=== PATIENT | female | born 1940 | race Caucasian/White ===

== ENCOUNTER → 2019-11-22 11:00 | Outpatient (BNVA) | payer MEDICARE, SELFPAY | PROVIDERS: PCP Family Medicine; Visit Provider Hospitalist | DX: J44.9 Chronic obstructive pulmonary disease, unspecified (principal); J30.9 Allergic rhinitis, unspecified; E87.1 Hypo-osmolality and hyponatremia; Z79.899 Other long term (current) drug therapy | CPT/HCPCS: 99214 ==

== ENCOUNTER 2020-01-27 12:24 | Outpatient (REF) | payer MEDICARE, SELFPAY ==
[2020-01-27 14:17] LABS: Anion Gap 13 (12-20); Blood Urea Nitrogen 11 mg/dL (9-16); Calcium 9.1 mg/dL (8.4-10.2); Carbon Dioxide 27 mmol/L (22-29); Chloride 97 mmol/L (96-108); Estimated Glomerular Filt Rate > 60; Glucose Random 105 mg/dL (60-115); Potassium 4.5 mmol/l (3.3-5.1); Sodium 132 mmol/L (135-145)
[2020-01-27 14:19] LABS: Creatinine Urine 97.47 mg/dL; Microalbumin Urine < 5.0 mg/L
== END 2020-01-27 12:25 | disposition home or self-care (01) ==
LOC: HO.WFDLDS 12:24
PROVIDERS: Visit Provider Family Medicine
DX: E87.1 Hypo-osmolality and hyponatremia (principal); I10 Essential (primary) hypertension
CPT/HCPCS: 80048; 82043

== ENCOUNTER 2020-04-25 11:11 | Outpatient (REF) | payer MEDICARE, SELFPAY ==
[2020-04-25 14:09] LABS: Anion Gap 13 (12-20); Blood Urea Nitrogen 11 mg/dL (9-16); Carbon Dioxide 28 mmol/L (22-29); Chloride 98 mmol/L (96-108); Estimated Glomerular Filt Rate > 60; Glucose Random 103 mg/dL (60-115); Potassium 4.8 mmol/L (3.3-5.1); Sodium 134 mmol/L (135-145)
== END 2020-04-25 11:12 | disposition home or self-care (01) ==
LOC: HO.WFDLDS 11:11
PROVIDERS: Visit Provider Family Medicine
DX: Z00.00 Encounter for general adult medical examination without abnormal findings (principal); E87.1 Hypo-osmolality and hyponatremia
CPT/HCPCS: 36415; 80048

== ENCOUNTER → 2020-05-25 09:54 | Outpatient (BNVA) | payer MEDICARE, SELFPAY | PROVIDERS: PCP Family Medicine; Visit Provider Hospitalist | DX: J44.9 Chronic obstructive pulmonary disease, unspecified (principal); J30.9 Allergic rhinitis, unspecified; Z79.899 Other long term (current) drug therapy; Z87.891 Personal history of nicotine dependence | CPT/HCPCS: 99212 ==

== ENCOUNTER 2020-10-02 09:07 | Outpatient (REF) | payer MEDICARE, SELFPAY ==
[2020-10-02 11:03] LABS: Alanine Aminotransferase 22 U/L (0-31); Albumin Level 4.1 g/dL (3.5-5.0); Alkaline Phosphatase 78 U/L (39-117); Anion Gap 15 (12-20); Aspartate Amino Transferase 21 U/L (5-31); Bilirubin Total 0.7 mg/dL (0.0-1.0); Blood Urea Nitrogen 6 mg/dL (9-16); Calcium 9.3 mg/dL (8.4-10.2); Carbon Dioxide 24 mmol/L (22-29); Chloride 95 mmol/L (96-108); Cholesterol 196 mg/dL; Estimated Glomerular Filt Rate > 60; Glucose Fasting 110 mg/dL (60-99); HDL Cholesterol 65 mg/dL; LDL Cholesterol Calculated 109 mg/dl; Potassium 4.4 mmol/L (3.3-5.1); Sodium 130 mmol/L (135-145); Triglycerides 111 mg/dL
[2020-10-02 11:23] LABS: TSH reflex Free T4 0.44 uIU/mL (0.32-4.0)
== END 2020-10-02 09:08 | disposition home or self-care (01) ==
LOC: HO.WFDLDS 09:07
PROVIDERS: Visit Provider Family Medicine
DX: Z00.00 Encounter for general adult medical examination without abnormal findings (principal); E87.1 Hypo-osmolality and hyponatremia; I10 Essential (primary) hypertension
CPT/HCPCS: 36415; 80048; 80053; 80061; 84443

== ENCOUNTER → 2021-02-18 10:06 | Outpatient (BNVA) | payer MEDICARE, SELFPAY | PROVIDERS: PCP Family Medicine; Visit Provider Hospitalist | DX: J44.9 Chronic obstructive pulmonary disease, unspecified (principal); J30.9 Allergic rhinitis, unspecified | CPT/HCPCS: 99212 ==

== ENCOUNTER 2021-04-26 11:58 | Outpatient (REF) | payer MEDICARE, SELFPAY ==
--- NOTE | ~2021-04-26 | MM_ITS ---
EXAMINATION: BONE DENSITOMETRY CLINICAL INDICATION: Screening for osteoporosis. COMPARISON: Previous BD dated 04/16/2010 and baseline BD dated 08/19/2007. TECHNIQUE: Using a [employer] DXA System (software version: 13.1) manufactured by [employer], dual-energy x-ray absorptiometry was performed of the lumbar spine and left hip. The images are of good technical quality. Summary results are attached. FINDINGS: AP SPINE L1-L2 (excluding L3 and L4): The data of L1-L4 has been changed to exclude the L3 and L4 vertebral bodies, because degenerative sclerosis at these levels may cause overestimation of lumbar spine density. Current: BMD 1.257 g/cm2, Z-score 2.4, T-score 0.8, normal, 6.2% increase from previous, 1.2% decrease from baseline (<5% change is not significant). Prior: BMD 1.184 g/cm2. Baseline: BMD 1.272 g/cm2. LEFT FEMUR, NECK: Current: BMD 0.972 g/cm2, Z-score 1.5, T-score -0.5, normal. Prior: BMD 1.054 g/cm2. Baseline: BMD 1.124 g/cm2. LEFT FEMUR, TOTAL: Current: BMD 1.024 g/cm2, Z-score 2.0, T-score 0.1, normal, 8.2% decrease from previous, 11.6% decrease from baseline (<5% change is not significant). Prior: BMD 1.116 g/cm2. Baseline: BMD 1.159 g/cm2. IDENTIFIED RISK FACTORS: Menopause. Hysterectomy. Alcohol (3 or more units per day). Tobacco user (current smoker). History of fracture (adult). HISTORY OF FRACTURE: Humerus. MEDICATIONS: Vitamin D. MM/XR DEXA axial skeleton IMPRESSION: 1. DIAGNOSIS: Normal bone density based on the lowest T-score value of -0.5 in the femoral neck applying World Health Organization criteria. 2. 10-YEAR FRACTURE RISK PREDICTION, FRAX: According to the guidelines, FRAX calculation should only be performed on patients in the osteopenia bone density category. Therefore, FRAX was not performed on this patient. 3. Treatment Recommendations: NOF guidelines recommend consideration for treatment in postmenopausal women and men age 50 and older presenting with the following: -A hip or vertebral (clinical or morphometric) fracture. -T-score less than or equal to -2.5 at the femoral neck or spine after appropriate evaluation to exclude secondary causes. -Low bone mass at the hip or spine and a 10-year fracture probability by FRAX of greater than or equal to 3% for hip fracture or greater than or equal to 20% for major osteoporotic fracture based on the [place] adapted WHO algorithm. 4. Other Recommendations: All treatment decisions require clinical judgment and consideration of individual patient factors, including patient preferences, comorbidities, previous drug use, risk factors not captured in the FRAX model (e.g. frailty, falls, vitamin D deficiency, increased bone turnover, interval significant decline in bone density) and possible under or overestimation of fracture risk by FRAX. FUTURE SCAN RECOMMENDATION: People with diagnosed cases of osteoporosis or at high risk for fracture should have regular bone mineral density tests. For patients eligible for Medicare, routine testing is allowed once every 2 years. The testing frequency can be increased to one year for patients who have rapidly progressing disease, those who are receiving or discontinuing medical therapy to restore bone mass, or have additional risk factors.
--- NOTE | ~2021-04-26 | MM_ITS ---
EXAMINATION: MM SCREENING DIGITAL BREAST TOMOSYNTHESIS, BILATERAL CLINICAL INFORMATION: Screening. Asymptomatic. The lifetime risk of breast cancer based on the Tyrer-Cuzick Model is 1.5%. COMPARISON: Mammography: November 28, 2016 and studies dating back to June 13, 2011 TECHNIQUE: Digital breast tomosynthesis is performed in both the craniocaudal and mediolateral oblique views along with computer-aided detection (CAD). Synthesized 2D images are generated from the tomosynthesis. FINDINGS: The breasts are almost entirely fatty (ACR BI-RADS breast composition Category a). There are no significant masses, abnormal calcifications, or other abnormalities. MM/MM tomosynthesis screening BI IMPRESSION: There are no significant changes from prior study. ASSESSMENT: BI-RADS 1: Negative RECOMMENDATION: Routine annual mammography screening. This patient's information was entered into a reminder system with a target due date for their next mammogram.
== END 2021-04-26 11:59 | disposition home or self-care (01) ==
LOC: HO.MAMMO 11:58
PROVIDERS: PCP Family Medicine; Visit Provider Family Medicine
DX: Z13.820 Encounter for screening for osteoporosis (principal); Z78.0 Asymptomatic menopausal state; Z12.31 Encounter for screening mammogram for malignant neoplasm of breast; F17.200 Nicotine dependence, unspecified, uncomplicated; Z90.710 Acquired absence of both cervix and uterus; Z79.899 Other long term (current) drug therapy
CPT/HCPCS: 77063; 77067; 77080

== ENCOUNTER 2021-08-30 11:28 | Outpatient (REF) | payer MEDICARE, SELFPAY ==
--- NOTE | ~2021-08-30 | XR_ITS ---
EXAMINATION: XR CHEST CLINICAL INFORMATION: COPD. COMPARISON: None TECHNIQUE: 2 views of the chest were obtained. FINDINGS: The lungs are well-expanded and clear of acute process. The heart size and pulmonary vascularity is normal. There is a moderate size hiatal hernia. No gross bony abnormality seen. XR/XR chest 2V IMPRESSION: Clear lungs. Moderate-sized hiatal hernia.
== END 2021-08-30 11:29 | disposition home or self-care (01) ==
LOC: HO.XRAY 11:28
PROVIDERS: PCP Family Medicine; Visit Provider Hospitalist
DX: J44.9 Chronic obstructive pulmonary disease, unspecified (principal); J30.9 Allergic rhinitis, unspecified; Z87.891 Personal history of nicotine dependence
CPT/HCPCS: 71046; 99212

== ENCOUNTER 2021-12-27 10:37 | Outpatient (REF) | payer MEDICARE, SELFPAY ==
[2021-12-27 13:49] LABS: MANUAL DIFF FLAG NO
[2021-12-27 13:51] LABS: Basophils Absolute Auto 0.1 X10*3/uL (0.0-0.2); Basophils Percent Auto 0.8 % (0-2); Eosinophils Absolute Auto 0.2 X10*3/uL (0.0-0.4); Eosinophils Percent Auto 3.1 % (0-4); Hemoglobin 15.2 g/dl (12.0-16.0); Imm Gran Abs Auto 0.03 X10*3/uL (0.00-0.03); Imm Gran Pct Auto 0.4 % (0.0-0.4); Lymphocytes Absolute Auto 1.1 X10*3/uL (1.2-4.9); Lymphocytes Percent Auto 15.5 % (20-40); Mean Corpuscular HGB Conc 35.3 g/dl (31.0-35.0); Mean Corpuscular Hemoglobin 34.1 pg (27.0-33.0); Mean Corpuscular Volume 96.4 fL (80.0-98.0); Mean Platelet Volume 9.9 fL (9.4-12.3); Monocytes Absolute Auto 0.7 X10*3/uL (0.1-1.2); Monocytes Percent Auto 9.9 % (2-11); Neutrophils Absolute Auto 5.1 x10*3/uL (2.0-8.3); Neutrophils Percent Auto 70.3 % (45-73); Platelet Count 224 X10*3/uL (160-400); Red Blood Count 4.46 X10*6/uL (4.20-5.50); Red Cell Distribution Width 13.7 % (11.0-16.0); White Blood Count 7.2 X10*3/uL (4.8-10.8)
[2021-12-27 14:22] LABS: Alanine Aminotransferase 20 U/L (0-31); Albumin Level 3.9 g/dL (3.5-5.0); Alkaline Phosphatase 101 U/L (39-117); Anion Gap 15 (12-20); Aspartate Amino Transferase 27 U/L (5-31); Bilirubin Total 0.7 mg/dL (0.0-1.0); Blood Urea Nitrogen 7 mg/dL (9-16); Calcium 9.3 mg/dL (8.4-10.2); Carbon Dioxide 26 mmol/L (22-29); Chloride 97 mmol/L (96-108); Cholesterol 180 mg/dL; Estimated Glomerular Filt Rate > 60; Glucose Fasting 106 mg/dL (60-99); HDL Cholesterol 61 mg/dL; LDL Cholesterol Calculated 92 mg/dl; Potassium 4.8 mmol/L (3.3-5.1); Sodium 133 mmol/L (135-145); Total Protein 6.9 g/dL (6.5-8.0); Triglycerides 138 mg/dL
== END 2021-12-27 10:38 | disposition home or self-care (01) ==
LOC: HO.WFDLDS 10:37
PROVIDERS: Visit Provider Family Medicine
DX: Z00.00 Encounter for general adult medical examination without abnormal findings (principal)
CPT/HCPCS: 36415; 80053; 80061; 84443; 85025

== ENCOUNTER 2022-01-17 13:49 | Outpatient (REF) | payer MEDICARE, SELFPAY ==
[2022-01-17 14:35] LABS: Influenza A PCR NEGATIVE (Negative); Influenza B PCR NEGATIVE (Negative); Resp Syncy Virus RNA Qual PCR POSITIVE (Negative); SARS COV2 PCR INHOUSE NEGATIVE (Negative)
== END 2022-01-17 13:50 | disposition home or self-care (01) ==
LOC: HO.LNP 13:49
PROVIDERS: Visit Provider Family Medicine
DX: Z20.822 Contact with and (suspected) exposure to COVID-19 (principal); B34.9 Viral infection, unspecified
CPT/HCPCS: 0241U

== ENCOUNTER 2022-02-06 11:09 | Outpatient (REF) | payer MEDICARE, SELFPAY ==
[2022-02-06 13:46] LABS: INTERNATIONAL NORM RATIO 2.6 (0.9-1.1)
== END 2022-02-06 11:10 | disposition home or self-care (01) ==
LOC: HO.WFDLDS 11:09
PROVIDERS: Visit Provider Family Medicine
DX: I26.99 Other pulmonary embolism without acute cor pulmonale (principal)
CPT/HCPCS: 36415; 85610

== ENCOUNTER 2022-02-07 15:15 | Outpatient (REF) | payer MEDICARE, SELFPAY ==
--- NOTE | ~2022-02-07 | US_ITS ---
EXAMINATION: US VENOUS ULTRASOUND WITH DOPPLER LOWER EXTREMITY, BILATERAL CLINICAL INFORMATION: Pulmonary embolism COMPARISON: None TECHNIQUE: Ultrasound of the deep veins is performed from the hip to the calf with compression sonography and color and pulse Doppler assessment. Spectral analysis with color-flow imaging is performed. FINDINGS: RIGHT: There is normal venous compression and respiratory variation and augmented flow. The visualized common femoral vein, superficial femoral vein, profunda femoral vein, popliteal vein, and the trifurcation region shows no evidence of deep venous thrombosis. There is no significant popliteal fossa cyst. LEFT: There is normal venous compression and respiratory variation and augmented flow. The visualized common femoral vein, superficial femoral vein, profunda femoral vein, popliteal vein, and the trifurcation region shows no evidence of deep venous thrombosis. There is no significant popliteal fossa cyst. If the patient's symptoms persist, followup ultrasound in 5 days 7 days might be of value to exclude proximal propagation from a non-visualized calf vein. US/US venous duplex LE BI IMPRESSION: No DVT demonstrated in the bilateral lower extremity.
== END 2022-02-07 15:16 | disposition home or self-care (01) ==
LOC: HO.US 15:15
PROVIDERS: Visit Provider Family Medicine
DX: I26.99 Other pulmonary embolism without acute cor pulmonale (principal)
CPT/HCPCS: 93970

== ENCOUNTER 2022-02-11 09:43 | Outpatient (REF) | payer MEDICARE, SELFPAY ==
[2022-02-11 11:40] LABS: INTERNATIONAL NORM RATIO 2.4 (0.9-1.1); Prothrombin Time 28.1 SEC (10.0-13.1)
== END 2022-02-11 09:44 | disposition home or self-care (01) ==
LOC: HO.WFDLDS 09:43
PROVIDERS: Visit Provider Family Medicine
DX: I26.99 Other pulmonary embolism without acute cor pulmonale (principal)
CPT/HCPCS: 36415; 85610

== ENCOUNTER → 2022-02-28 09:59 | Outpatient (BNVA) | payer MEDICARE, SELFPAY | PROVIDERS: PCP Family Medicine; Visit Provider Hospitalist | DX: J44.9 Chronic obstructive pulmonary disease, unspecified (principal); J30.9 Allergic rhinitis, unspecified; I26.99 Other pulmonary embolism without acute cor pulmonale; Z79.01 Long term (current) use of anticoagulants; Z79.899 Other long term (current) drug therapy | CPT/HCPCS: Q3014 ==

== ENCOUNTER → 2022-03-10 12:46 | Outpatient (REF) | payer MEDICARE, SELFPAY ==
--- NOTE | 2022-03-10 12:49 | CA_ITS ---
Transthoracic Echocardiogram Patient (Last, First, Middle): Noris Hou, Gender: Female Date of : 1940 Age: 81 Procedure Date: 03/10/2022 Procedure Type: Transthoracic Echocardiogram Location: OP Height: 154.94 cm Weight: 72.58 kg BSA: 1.72 m2 Heart Rate: 78 bpm BP: 110 / 64 mmHg Director Of Compliance: SB Referring MD: Aquiles Weems MD Symptoms: I26.99 - Other pulmonary embolism without acute cor pulmonale Study Quality: Technically Difficult but adequate ECG Rhythm: Sinus Conclusions: - The left ventricular systolic function is normal. The calculated ejection fraction is 69% by biplane method. - No obvious valvular pathology seen on this study. - There is no evidence of pulmonary hypertension. Findings Left Ventricle Normal left ventricular cavity size. There is mildly increased left ventricular wall thickness. The left ventricular systolic function is normal. The calculated ejection fraction is 69% by biplane method. There is no evidence of regional wall motion abnormalities. Diastolic function is normal for age. LV peak GLS -13.7%. Right Ventricle Normal right ventricular cavity size. There is low normal right ventricular systolic function. Atria Both atria are normal in size. Aortic Valve There is a normal trileaflet aortic valve. There is no aortic valve stenosis. There is no aortic valve regurgitation. Mitral Valve The mitral valve appears normal. There is no mitral valve regurgitation. There is no mitral valve stenosis. Pulmonic Valve The pulmonic valve is likely normal. Tricuspid Valve There is mild tricuspid valve regurgitation. There is no evidence of pulmonary hypertension. Great Vessels The asc aorta is normal in size. Venous The inferior vena cava is normal in size and collapses greater than 50% with inspiration. Pericardium/Pleural Prominent epicardial adipose tissue noted. Possible small pericardial effusion posterior to left ventricle. Prior Study Comparison No significant change compared to prior study dated: 05/19/2008. Recommendations, Care & Conclusions No obvious valvular pathology seen on this study. Measurements 2D Linear Measurements IVSd: 1.18 0.6-0.9/0.6-1.0 cm LVIDd: 4.08 3.9-5.3/4.2-5.9 cm LVIDd Index: 2.37 2.4-3.2/2.2-3.1 cm/m2 LVIDs: 2.34 2.0-3.6 cm LVPWd: 1.08 0.7-1.1 cm LA Diam: 2.30 2.7-3.8/3.0-4.0 cm LAIDs Index: 1.34 1.5-2.3 cm/m2 LV Mass: 194.40 67-162/88-224 g LV Mass Index: 113.02 43-95/49-115 g/m2 LVOT Diam: 2.00 3.0+(-)1.3 cm 2D Systolic Function EF 4C: 72.20 >55% EF 2C: 63.40 >55% EF BiP: 68.60 >55% Mitral Valve MV Pk E: 0.62 MV PK A: 0.80 MV Decel Time: 227.00 E/A: 0.80 E'Lateral: 6.85 E'Medial: 4.68 E/E' Med: 13.20 E/E' Lat: 9.00 PHT: 66.00 MVA PHT: 3.33 Decel Yates: 2.72 Aortic Valve AoV Pk Leighton: 1.15 AoV Pk Grad: 5.00 JIGNESH: 2.96 LVOT LVOT Pk Leighton: 1.04 LVOT Mn Leighton: 0.74 LVOT VTI: 0.22 LVOT Pk Grad: 4.00 LVOT Mn Grad: 3.00 LVOT Diam: 2.00 LVOT Area: 3.14 Diastolic Function MV Pk E: 0.62 MV Pk A: 0.80 E/A: 0.80 E'Medial: 4.68 E/E' Med: 13.20 E' Laterial: 6.85 E/E' Lat: 9.00 Right Ventricle TAPSE (mm): 17.90 TVS' Leighton: 10.80 Tricuspid Valve TR Pk Leighton: 2.39 TR Pk Grad: 23.00 RA Press: 3.00 RVSP: 26.00 Great Vessels Aorta Sinus of Valsalva: 3.00 2.0-3.5 cm Ao Asc: 3.70 2.1-3.4 cm Pulmonary Valve PV Pk Leighton: 0.98 Peak PV Grad: 4.00 Updated in Other Vendor System with Status of Final Vlad Herrera MD electronically signed on 03/10/2022 4:45:57 PM with status of Final
== END ==
LOC: HO.CARD 12:46
PROVIDERS: PCP Family Medicine; Visit Provider Hospitalist
DX: I26.99 Other pulmonary embolism without acute cor pulmonale (principal)
CPT/HCPCS: 93306; 93356

== ENCOUNTER 2022-05-02 11:35 | Outpatient (REF) | payer MEDICARE, SELFPAY ==
--- NOTE | ~2022-05-02 | MM_ITS ---
EXAMINATION: MM SCREENING DIGITAL BREAST TOMOSYNTHESIS, BILATERAL CLINICAL INFORMATION: Screening. Asymptomatic. The lifetime risk of breast cancer based on the Tyrer-Cuzick Model is 2%. COMPARISON: Mammography: 04/26/2021, 11/28/2016, 08/03/2014 TECHNIQUE: Digital breast tomosynthesis is performed in both the craniocaudal and mediolateral oblique views along with computer-aided detection (CAD). Synthesized 2D images are generated from the tomosynthesis. Additional left CC view is provided. FINDINGS: There are scattered areas of fibroglandular density (ACR BI-RADS breast composition Category b). There are no significant masses, abnormal calcifications, or other abnormalities. Parenchymal pattern is similar to prior studies. There is no developing density or architectural abnormality. The axilla and skin contours are unremarkable. No significant changes. MM/MM tomosynthesis screening BI IMPRESSION: No mammographic evidence of malignancy. ASSESSMENT: BI-RADS 1: Negative RECOMMENDATION: Routine annual mammography screening. This patient's information was entered into a reminder system with a target due date for their next mammogram.
== END 2022-05-02 11:36 | disposition home or self-care (01) ==
LOC: HO.MAMMO 11:35
PROVIDERS: PCP Family Medicine; Visit Provider Family Medicine
DX: Z12.31 Encounter for screening mammogram for malignant neoplasm of breast (principal)
CPT/HCPCS: 77063; 77067

== ENCOUNTER → 2022-06-02 10:19 | Outpatient (BNVA) | payer MEDICARE, SELFPAY | PROVIDERS: PCP Family Medicine; Visit Provider Hospitalist | DX: J44.9 Chronic obstructive pulmonary disease, unspecified (principal); I26.99 Other pulmonary embolism without acute cor pulmonale; J30.9 Allergic rhinitis, unspecified | CPT/HCPCS: 99212 ==

== ENCOUNTER 2022-09-15 14:44 | Outpatient (AMB) | payer MEDICARE, SELFPAY ==
[2022-09-15 15:05] VITALS: BP 120/64; PULSE 56; O2SAT 96; BMI 31.9
--- NOTE | 2022-09-15 15:05 | A.OFFPC_ITS ---
Vital Signs 09/15/22 15:05 Height 5 ft 1 in Weight 169 lb BMI 31.9 BP 120/64 Blood Pressure Location Lt brachial Position Sitting Pulse 56 Pulse Source Pulse Oximeter Pulse Oximetry (%) 96 Oxygen Delivery Method Room Air Intake Visit Reasons: Eliquis discussion Intake Note: Patient is here to discuss Eliquis, needs forms filled out. Allergies latex Allergy (Verified 09/15/22 15:10) rash Medication List - Last Reconciled 09/15/22 by Ric Flor MD albuterol sulfate 90 mcg/actuation (ProAir HFA) 90 mcg inhalation DAILY PRN cholecalciferol (vitamin D3) 50 mcg PO DAILY citalopram 20 mg PO DAILY 90 days clonazepam 0.5 mg PO BID PRN diltiazem HCl 120 mg PO DAILY 90 days fluticasone propion-salmeterol 232-14 mcg/actuation (AirDuo Digihaler) 1 inh inhalation BID 30 days gabapentin 300 mg PO BID ipratropium bromide 2 sprays intranasal TID PRN lisinopril 10 mg PO DAILY mupirocin 2% 1 appl topical TID 10 days omeprazole 20 mg PO DAILY Symbicort 160-4.5 mcg/actuation (budesonide-formoterol) 2 puffs PO BID NS tamsulosin 0.4 mg PO BEDTIME 90 days warfarin 2 mg PO DAILY 30 days Tobacco use date assessed: 09/15/22 Dental Screening Dental Screen Date: 09/15/22 Did you have a dental visit in the last 12 months?: No Did you have a dental problem in the last 6 months where you did not have access to dental care?: No Was dental information given to patient?: No HPI Eliquis discussion HPI Details 82 y/o female presents to discuss her eliquis. 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 [facility] Medical History Asthma-COPD overlap syndrome Chronic allergic rhinitis Essential hypertension History of COVID-19 Hyponatremia Pulmonary emboli (~01/2022) Skin cancer Surgical History History of colonoscopy History of esophagogastroduodenoscopy (EGD) Family History Mother Breast cancer Father Prostate CA Stroke Social History Household Members: None Housing: Other (mobile home) Alcohol intake: current Alcohol intake frequency: 0-2 drinks per day Patient Tobacco Use Status: Former Tobacco user Tobacco use type: Cigarette Years Smoked: 10 years e-Cigarette/Vaping Use: Never Used Second Hand Smoke Exposure: No service: No Current occupational status: employed Current occupational exposures/hazards: No Cognitive needs: No Hearing needs: No Vision needs: No Questionnaire Thrive Questionnaire Date Thrive assessed: 08/03/20 ROEL-7 AMB Questionnaire ROEL-7 Date ROEL - 7 assessed: 02/14/22 Source: Developed by Drs. Harsha Hood, Diana Mendoza, Kristopher Villa and colleagues, with an educational johnie from [employer]. Review of Systems Const Denies chills, Denies fatigue, Denies fever(s), Denies headache(s) and Denies weakness ENT Denies dizziness and Denies headache(s) Card Denies dyspnea Resp Denies cough, Denies dyspnea, Denies wheezing and Denies other (shortness of breath) Musc Denies numbness and Denies tingling Neuro Denies dizziness, Denies headache(s), Denies numbness, Denies tingling and Denies weakness Psych Denies anxiety and Denies depression Endo Denies fatigue Aller/Immun Denies wheezing Physical exam (Primary Care) Vital Signs: Last Vital Signs Pulse 56 09/15/22 15:05 BP 120/64 09/15/22 15:05 Pulse Ox 96 09/15/22 15:05 Oxygen Delivery Method Room Air 09/15/22 15:05 BMI result Body Mass Index 31.9 Tobacco/Smoking Status: Tobacco use Status Tobacco use date assessed 09/15/22 09/15/22 15:14 Patient Tobacco Use Status Former Tobacco user 09/15/22 15:07 Tobacco use type Cigarette 09/15/22 15:07 e-Cigarette/Vaping Use Never Used 09/15/22 15:07 Thrive Assessment: Date of Thrive Assessment Date Thrive assessed 08/03/20 09/15/22 15:07 Const General: well developed; No acute distress Nutritional Appearance: well nourished Orientation/consciousness: patient oriented x3 HENMT Head: Yes normocephalic and Yes atraumatic Eyes General: appearance normal, both eyes and all related structures Pupils: Equal, round and reactive pupils present EOM: EOMs intact bilaterally Resp Effort & Inspection: normal respiratory effort Neuro General: patient oriented x3 and gait normal Cranial nerves: Yes Equal, round and reactive pupils present Psych Affect: normal affect Assessment and Plan Assessment & Plan (1) Pulmonary emboli: Onset Date: ~01/2022 Code(s): I26.99 - Other pulmonary embolism without acute cor pulmonale Plan: History of unprovoked PE and patient is on lifelong anticoagulation Has had some difficulties with keeping her INR levels controlled Switching her to Eliquis. She has paperwork to allow her to have this subsidized by the pharmaceutical company and I have signed this today. Coding Level of Care Code Est Pt Level 3 (91754) Diagnoses Pulmonary emboli I26.99
== END 2022-09-15 16:01 | disposition home or self-care (01) ==
PROVIDERS: PCP Family Medicine; Visit Provider Family Medicine
DX: I26.99 Other pulmonary embolism without acute cor pulmonale (principal)
CPT/HCPCS: 99213

== ENCOUNTER 2022-10-16 10:36 | Outpatient (AMB) | payer MEDICARE, SELFPAY ==
[2022-10-16 10:37] VITALS: BP 118/74; PULSE 94; O2SAT 96; BMI 31.8
--- NOTE | 2022-10-16 10:37 | MHC.PC.OV ---
Vital Signs 10/16/22 10:37 Height 5 ft 1 in Weight 168 lb 8 oz BMI 31.8 BP 118/74 Blood Pressure Location Lt brachial Position Sitting Pulse 94 Pulse Source Pulse Oximeter Pulse Oximetry (%) 96 Oxygen Delivery Method Room Air Intake Visit Reasons: Follow-up hypertension and chronic conditions Intake Note: Patient is here for follow up on hypertension and chronic conditions. Allergies latex Allergy (Verified 10/16/22 10:40) rash Tobacco use date assessed: 10/16/22 Fall risk assessment: No Falls in past year Last assessed Fall Risk: 10/16/22 Dental Screening Dental Screen Date: 10/16/22 Did you have a dental visit in the last 12 months?: No Did you have a dental problem in the last 6 months where you did not have access to dental care?: No Was dental information given to patient?: Patient has dentist HPI Follow-up hypertension and chronic conditions HPI Details 82 y/o female presents to f/u hypertension and chronic conditions. Blood pressure today 118/74. She is on lisinopril 10mg daily. She has a lump on her R forearm from a cat bite. She has a wound on basal cell of her scalp from a basal cell resection. [facility] Medical History Pulmonary emboli (~01/2022) Skin cancer History of COVID-19 Essential hypertension Chronic allergic rhinitis Hyponatremia Asthma-COPD overlap syndrome Surgical History History of esophagogastroduodenoscopy (EGD) History of colonoscopy Family History Mother Breast cancer Father Prostate CA Stroke Social History Household Members: None Housing: Other (mobile home) Alcohol intake: current Alcohol intake frequency: 0-2 drinks per day Patient Tobacco Use Status: Former Tobacco user Tobacco use type: Cigarette Years Smoked: 10 years e-Cigarette/Vaping Use: Never Used Second Hand Smoke Exposure: No service: No Current occupational status: employed Current occupational exposures/hazards: No Cognitive needs: No Hearing needs: No Vision needs: No Questionnaire Thrive Questionnaire Date Thrive assessed: 08/03/20 ROEL-7 AMB Questionnaire ROEL-7 Date ROEL - 7 assessed: 02/14/22 Source: Developed by Drs. Harsha Hood, Diana Mendoza, Kristopher Villa and colleagues, with an educational johnie from [employer]. Review of Systems Const Denies chills, Denies fatigue, Denies fever(s), Denies headache(s) and Denies weakness ENT Denies dizziness and Denies headache(s) Card Denies chest pain, Denies lightheadedness, Denies dyspnea and Denies other (Palpitations) Resp Denies cough, Denies dyspnea, Denies wheezing and Denies other ( shortness of breath) Musc Denies numbness and Denies tingling Neuro Denies dizziness, Denies headache(s), Denies numbness, Denies tingling, Denies paresthesias and Denies weakness Psych Denies anxiety and Denies depression Endo Denies fatigue Aller/Immun Denies wheezing Physical exam (Primary Care) Vital Signs: Last Vital Signs Pulse 94 10/16/22 10:37 BP 118/74 10/16/22 10:37 Pulse Ox 96 10/16/22 10:37 Oxygen Delivery Method Room Air 10/16/22 10:37 BMI result Body Mass Index 31.8 Tobacco/Smoking Status: Tobacco use Status Tobacco use date assessed 10/16/22 10/16/22 10:47 Patient Tobacco Use Status Former Tobacco user 10/16/22 10:47 Tobacco use type Cigarette 10/16/22 10:47 e-Cigarette/Vaping Use Never Used 10/16/22 10:47 Thrive Assessment: Date of Thrive Assessment Date Thrive assessed 08/03/20 10/16/22 10:47 Const General: no acute distress and well developed Nutritional Appearance: well nourished Orientation/consciousness: patient oriented x3 HENMT Head: Yes normocephalic and Yes atraumatic Eyes General: appearance normal, both eyes and all related structures Pupils: Equal, round and reactive pupils present EOM: EOMs intact bilaterally Resp Effort & Inspection: normal respiratory effort Auscultation: clear to auscultation bilaterally Cardio Rate: regular rate Rhythm: regular rhythm Heart sounds: S1 normal heart sound present, S2 normal heart sound present, no gallops, no murmurs and no rubs Neuro General: patient oriented x3 and gait normal Cranial nerves: Yes Equal, round and reactive pupils present Psych Affect: normal affect Assessment and Plan Assessment & Plan (1) Essential hypertension: Code(s): I10 - Essential (primary) hypertension Plan: Blood pressure is well controlled. Goal is less than 140/90 Continue current medication regimen (2) DVT (deep venous thrombosis): Code(s): I82.409 - Acute embolism and thrombosis of unspecified deep veins of unspecified lower extremity Plan: Had been working towards getting Eliquis but has not gotten this yet She is still currently on warfarin Continue warfarin for now. (3) Lump of skin: Code(s): R22.9 - Localized swelling, mass and lump, unspecified Plan: Granuloma at right forearm where she had a cat bite. No erythema, drainage or tenderness. No excess warmth. She has finished her antibiotics. This should resolve slowly. (4) Basal cell carcinoma: Code(s): C44.91 - Basal cell carcinoma of skin, unspecified Plan: Recent basal cell carcinoma on vertex of scalp now S/P resection Healing well Coding Level of Care Code Est Pt Level 4 (69796) Diagnoses Essential hypertension I10 DVT (deep venous thrombosis) I82.409 Lump of skin R22.9 Basal cell carcinoma C44.91
== END 2022-10-16 11:37 | disposition home or self-care (01) ==
PROVIDERS: PCP Family Medicine; Visit Provider Family Medicine
DX: I10 Essential (primary) hypertension (principal); I82.409 Acute embolism and thrombosis of unspecified deep veins of unspecified lower extremity; R22.9 Localized swelling, mass and lump, unspecified; C44.91 Basal cell carcinoma of skin, unspecified
CPT/HCPCS: 99214

== ENCOUNTER 2022-12-04 15:15 | Outpatient (AMB) | payer MEDICARE, SELFPAY ==
[2022-12-04 15:19] VITALS: BP 146/66; PULSE 88; O2SAT 96; BMI 32.1
--- NOTE | 2022-12-04 15:19 | A.OFFVIS_ITS ---
Intake Vital Signs 12/04/22 15:19 Height 5 ft 1 in Weight 169 lb 12.095 oz BMI 32.1 BP 146/66 H Pulse 88 Pulse Source Pulse Oximeter Pulse Oximetry (%) 96 Oxygen Delivery Method Room Air Intake Visit Reasons: copd Depositing Machine Operator Required: No Hotel Guest Service Agent: Hotel Guest Service Agent offered & declined Accompanied by: Self / Same As Patient Allergies latex Allergy (Verified 12/04/22 15:22) rash Medication List - Last Reconciled 12/04/22 by Elizabeth Fraser LPN albuterol sulfate 90 mcg/actuation (ProAir HFA) 90 mcg inhalation DAILY PRN cholecalciferol (vitamin D3) 50 mcg PO DAILY citalopram 20 mg PO DAILY 90 days clonazepam 0.5 mg PO BID PRN diltiazem HCl 120 mg PO DAILY 90 days fluticasone propion-salmeterol 232-14 mcg/actuation (AirDuo Digihaler) 1 inh inhalation BID 30 days gabapentin 300 mg PO BID ipratropium bromide 2 sprays intranasal TID PRN lisinopril 10 mg PO DAILY mupirocin 2% 1 appl topical TID 10 days omeprazole 20 mg PO DAILY Symbicort 160-4.5 mcg/actuation (budesonide-formoterol) 2 puffs PO BID NS tamsulosin 0.4 mg PO BEDTIME 90 days warfarin 2 mg PO DAILY 30 days HPI HPI Comments History of Present Illness Details The patientis a 82 y/o woman with a history of COPD. Overall doing well on the Symbicort. She does take it daily. Has not had to use her rescue inhaler. She does complain of an intermittent cough, mild in severity. Also has dyspnea on exertion with activity. She also complains of back pain, moderate in severity. She recently was evaluated for hyponatremia. In view of the hyponatremia I will request a chest xray. 02/28/2022 this is a telehealth visit. T he patient recently was hospitalized at [facility] after developing significant shortness breath hypoxia. She had called the office in the triage nurse recommended that she go to the ER. Therefore she went via ambulance. She was found to have bilateral pulmonary emboli. The patient was placed on Coumadin because Eliquis was too expensive and she is tolerating that well. She was subsequently discharged lower extremity Dopplers were not done and an echocardiogram was not done. After she was discharged she did follow-up with primary care doctor who did a lower extremity Doppler findings small clot. I explained to the patient that the Coumadin will help stop the propagation of clot but will take a couple months to completely resolve all the clots. The patient did not get an echocardiogram. She does have some dyspnea on exertion. She is no longer on oxygen only in the hospital. Will go and have her undergo an echocardiogram at this time. At this point appears that the pulmonary emboli is consistent with an unprovoked event to therefore she should continue the Coumadin for and indefinite amount of time. Patient understands that she is high risk for recurrence if she stops Coumadin at this time. 06/02/2022 the patient is here for a pulm onary follow-up visit. Overall the patient has been doing well. The patient continues on the Coumadin although the levels go up and down. She recently developed nasal congestion and postnasal drip and significant drainage. She also has an irritation the tip of her nose on her left nostril. She is not sure if she has any infection. Although I explained to her that taking oral antibiotics in view of the Coumadin specially with her elevated INR it may result in further elevations in the INR level. The secretions her nose appear to be thin. Will go ahead and start her on ipratropium nasal spray to try to Dr. Lassiter and also will place her on Bactroban to try to treat for a local infection. If the patient is no better she can always call and I can send her a course of doxycycline for sinusitis. She continues on the Coumadin for the unprovoked blood clots. She understands that with the unprovoked nature she should continue with the Coumadin lifelong. Chitra martinez does have a schedule procedure for a scan anomaly. I did explain to her that she can always stop the Coumadin but 4 days check her INR prior to the procedure and then have the procedure done safely and then go back on the Coumadin. 12/04/2022 the patient is here for a pulmonary follow-up visit. Overall the patient has been doing well. Recently had skin cancer surgery. Healing well. The patient still on Coumadin. She is had a hard time controlling does been fluctuating off. Therefore she was prescribed Eliquis. Get into a program to be able to get a reasonable schwartz. Otherwise she can not afford it. She has not started the Eliquis as of yet. I did encourage her to started also some more effective anticoagulation and less risk specially with her INR fluctuations the patient has been on anticoagulation since January. A good talk to her that once she completes the 1 year medardo afterwards we can consider a prophylactic dose of Eliquis 2.5 mg twice a day. However, and start the farm mg twice a day. The patient is having some dyspnea exertion. Moderate severity. Patient would benefit from pulmonary rehabilitation time. She does continue to use respiratory inhalers with partial improvement her symptoms. Will go ahead and request PFTs pulmonary rehab at [place]. COUNTS INCLUDE 234 BEDS AT THE [facility] Medical History Pulmonary emboli (~01/2022) Skin cancer History of COVID-19 Essential hypertension Chronic allergic rhinitis Hyponatremia Asthma-COPD overlap syndrome Surgical History History of esophagogastroduodenoscopy (EGD) History of colonoscopy Family History Mother Breast cancer Father Prostate CA Stroke Social History (Updated 12/04/22 @ 15:25 by Elizabeth Fraser LPN) Household Members: None Housing: Other (mobile home) Alcohol intake: current Alcohol intake frequency: 0-2 drinks per day Patient Tobacco Use Status: Former Tobacco user Tobacco use type: Cigarette Years Smoked: 10 years e-Cigarette/Vaping Use: Never Used Second Hand Smoke Exposure: No service: No Current occupational status: employed Current occupational exposures/hazards: No Cognitive needs: No Hearing needs: No Vision needs: No Review of Systems Const Denies chills, Denies fatigue, Denies fever(s), Denies headache(s) and Denies weakness ENT Denies dizziness and Denies headache(s) Card Denies chest pain, Denies lightheadedness, Denies dyspnea, Reports dyspnea on exertion and Denies other (Palpitations) Resp Denies cough, Denies dyspnea, Reports dyspnea on exertion, Denies wheezing and Denies other ( shortness of breath) Musc Denies numbness and Denies tingling Neuro Denies dizziness, Denies headache(s), Denies numbness, Denies tingling, Denies paresthesias and Denies weakness Psych Denies anxiety and Denies depression Endo Denies fatigue Aller/Immun Denies wheezing Physical Exam Vital Signs: Last Vital Signs Pulse 88 12/04/22 15:19 BP 146/66 H 12/04/22 15:19 Pulse Ox 96 12/04/22 15:19 Oxygen Delivery Method Room Air 12/04/22 15:19 BMI result Body Mass Index 32.1 Const General: alert Neck Neck: Yes normal visual inspection, Yes full ROM and Yes no lymphadenopathy Chest Chest palpation & inspection: normal inspection of the chest Resp Effort & Inspection: normal respiratory effort Auscultation: diminished lung sounds Cardio Rate: regular rate Rhythm: regular rhythm Heart sounds: S1 normal heart sound present and S2 normal heart sound present GI Palpation (GI): Soft to palpation and nontender Auscultation: normal bowel sounds Skin General skin exam: rashes and/or lesions noted Assessment & Plan Assessment & Plan (1) Bilateral pulmonary embolism: Code(s): I26.99 - Other pulmonary embolism without acute cor pulmonale (2) Asthma-COPD overlap syndrome: Code(s): J44.9 - Chronic obstructive pulmonary disease, unspecified (3) Chronic allergic rhinitis: Comment: allergy medicine OTC Code(s): J30.9 - Allergic rhinitis, unspecified (4) COPD (chronic obstructive pulmonary disease): Code(s): J44.9 - Chronic obstructive pulmonary disease, unspecified Qualifiers: COPD type: chronic bronchitis Chronic bronchitis type: simple Qualified Code(s): J41.0 - Simple chronic bronchitis Plan continue Airduo PRABHU as needed continue Duoneb BID as needed Nasal rinsing OTC allergy therapy start ipratropium nasal spray continue Coumadin to keep INR 2-3, agree with switching to Eliquis 5mg BID, then consider 2.5 BID next year PFTs, start Pulmonary rehab at [place] F/U 6 months Orders: Orders Pulmonary Rehab Today J44.9 - Chronic obstructive pulmonary disease, unspecified PFT pulmonary function test Today J44.9 - Chronic obstructive pulmonary dis ease, unspecified Medications: New albuterol sulfate 90 mcg/actuation (ProAir HFA) 90 mcg inhalation DAILY PRN 8.5 grams 11RF Wheezing Coding Level of Care Code Est Pt Level 4 (66016) Diagnoses Bilateral pulmonary embolism I26.99 Asthma-COPD overlap syndrome J44.9 Chronic allergic rhinitis J30.9 Simple chronic bronchitis J41.0 COPD type: chronic bronchitis Chronic bronchitis type: simple Time Spent (min) 16
== END 2022-12-04 15:47 | disposition home or self-care (01) ==
PROVIDERS: PCP Family Medicine; Visit Provider Hospitalist
DX: I26.99 Other pulmonary embolism without acute cor pulmonale (principal); J44.9 Chronic obstructive pulmonary disease, unspecified; J30.9 Allergic rhinitis, unspecified
CPT/HCPCS: 99214

== ENCOUNTER → 2022-12-04 15:15 | Outpatient (BNVA) | payer MEDICARE, SELFPAY | PROVIDERS: Visit Provider Hospitalist | DX: J44.9 Chronic obstructive pulmonary disease, unspecified (principal); J30.9 Allergic rhinitis, unspecified; J41.0 Simple chronic bronchitis; I26.99 Other pulmonary embolism without acute cor pulmonale | CPT/HCPCS: 99212 ==

== ENCOUNTER 2023-01-08 10:41 | Outpatient (REF) | payer MEDICARE, OTHER, SELFPAY ==
[2023-01-08 14:24] LABS: MANUAL DIFF FLAG NO
[2023-01-08 14:33] LABS: Basophils Absolute Auto 0.1 X10*3/uL (0.0-0.2); Basophils Percent Auto 1.3 % (0-2); Eosinophils Absolute Auto 0.4 X10*3/uL (0.0-0.4); Eosinophils Percent Auto 5.9 % (0-4); Hematocrit 39.1 % (37.0-47.0); Hemoglobin 12.6 g/dl (12.0-16.0); Imm Gran Abs Auto 0.03 X10*3/uL (0.00-0.03); Imm Gran Pct Auto 0.4 % (0.0-0.4); Lymphocytes Absolute Auto 1.4 X10*3/uL (1.2-4.9); Lymphocytes Percent Auto 19.8 % (20-40); Mean Corpuscular HGB Conc 32.2 g/dl (31.0-35.0); Mean Corpuscular Volume 89.9 fL (80.0-98.0); Mean Platelet Volume 10.1 fL (9.4-12.3); Monocytes Absolute Auto 0.7 X10*3/uL (0.1-1.2); Monocytes Percent Auto 9.2 % (2-11); Neutrophils Absolute Auto 4.5 x10*3/uL (2.0-8.3); Neutrophils Percent Auto 63.4 % (45-73); Platelet Count 351 X10*3/uL (160-400); Red Blood Count 4.35 X10*6/uL (4.20-5.50); Red Cell Distribution Width 13.2 % (11.0-16.0); White Blood Count 7.2 X10*3/uL (4.8-10.8)
[2023-01-08 14:56] LABS: Alanine Aminotransferase 17 U/L (0-31); Albumin Level 3.8 g/dL (3.5-5.0); Alkaline Phosphatase 103 U/L (39-117); Anion Gap 12 (12-20); Aspartate Amino Transferase 24 U/L (5-31); Bilirubin Total 0.4 mg/dL (0.0-1.0); Blood Urea Nitrogen 8 mg/dL (9-16); Calcium 9.2 mg/dL (8.4-10.2); Carbon Dioxide 26 mmol/L (22-29); Chloride 98 mmol/L (96-108); Cholesterol 207 mg/dL (<200); Estimated Glomerular Filt Rate > 60; Glucose Fasting 103 mg/dL (60-99); HDL Cholesterol 47 mg/dL (>40); LDL Cholesterol Calculated 125 mg/dL (<100); Potassium 4.1 mmol/L (3.3-5.1); Sodium 132 mmol/L (135-145); Total Protein 7.2 g/dL (6.5-8.0); Triglycerides 178 mg/dL (<150)
[2023-01-08 15:10] LABS: TSH reflex Free T4 0.55 uIU/mL (0.32-4.0)
== END 2023-01-08 10:42 | disposition home or self-care (01) ==
LOC: HO.WFDLDS 10:41
PROVIDERS: Visit Provider Family Medicine
DX: Z00.00 Encounter for general adult medical examination without abnormal findings (principal)
CPT/HCPCS: 36415; 80053; 80061; 84443; 85025

== ENCOUNTER 2023-01-15 10:11 | Outpatient (AMB) | payer MEDICARE, MEDICAID, SELFPAY ==
--- NOTE | 2023-01-15 10:15 | A.OFFPC_ITS ---
Vital Signs 01/15/23 10:16 Height 5 ft 1 in Weight 166 lb BMI 31.4 BP 126/60 Blood Pressure Location Rt brachial Position Sitting Respiration 14 Pulse 98 Pulse Source Pulse Oximeter Temp 97.8 F Temp Source Temporal Artery Scan Pulse Oximetry (%) 99 Oxygen Delivery Method Room Air Intake Visit Reasons: Extended exam with f/u labs and health maintenance Stock Patcher Required: No Accompanied by: Self / Same As Patient Allergies latex Allergy (Verified 01/15/23 10:22) rash Tobacco use date assessed: 10/16/22 Fall risk assessment: 2 + Falls in past year Last assessed Fall Risk: 01/15/23 Dental Screening Dental Screen Date: 01/15/23 Did you have a dental visit in the last 12 months?: No Did you have a dental problem in the last 6 months where you did not have access to dental care?: No Was dental information given to patient?: Patient has dentist HPI Extended exam with f/u labs and health maintenance HPI Details 82 y/o female presents for an extended e xam with f/u labs and health maintenance. Labs were drawn 01/08/23. Reviewed labs with pt. Mildly low sodium at 132 mmol/L. Elevated fasting glucose 103 mg/dL. Triglycerides 178. TC 207. LDL 125. HDL 47. No recent A1c. Pt reports she has had multiple falls. Elbow is bruised. L shoulder fracture and L arm skin laceration. She reports vision is okay. [facility] Medical History Pulmonary emboli (~01/2022) Skin cancer History of COVID-19 Essential hypertension Chronic allergic rhinitis Hyponatremia Asthma-COPD overlap syndrome Surgical History History of esophagogastroduodenoscopy (EGD) History of colonoscopy Family History Mother Breast cancer Father Prostate CA Stroke Social History Household Members: None Housing: Other (mobile home) Alcohol intake: current Alcohol intake frequency: 0-2 drinks per day Patient Tobacco Use Status: Former Tobacco user Tobacco use type: Cigarette Years Smoked: 10 years e-Cigarette/Vaping Use: Never Used Second Hand Smoke Exposure: No service: No Current occupational status: retired Current occupational exposures/hazards: No Cognitive needs: No Hearing needs: No Vision needs: No Questionnaire Thrive Questionnaire Date Thrive assessed: 01/15/23 I am a: Patient What is your living situation today?: I have a steady place to live Within the past 12 months, did the food you bought not last and you didn't have the money to get more?: Never true Within the past 12 months, did you worry whether your food would run out before you got money to buy more?: Never true Do you have trouble paying for medicines?: No Do you have trouble getting transportation to medical appointments?: No Do you have trouble paying your heating and electricity bill?: No Do you have trouble taking care of your child, family member or friend?: No Do you have trouble with day-to-day activities such as bathing, preparing meals, shopping, managing finances, etc.?: No Are you currently unemployed and looking for a job?: No Are you interested in more education?: No Please select the resources that you would like help with: None Currently or been in a relationship where the following occur: no concerns reported AUDIT C Alcohol Use Questionnaire (AUDIT-C) 1. How often do you have a drink containing alcohol?: Never 3. How often do you have six or more drinks on one occasion?: Never Total Score: 0 ROEL-7 AMB Questionnaire ROEL-7 Date ROEL - 7 assessed: 02/14/22 Source: Developed by Drs. Harsha Hood, Diana Mendoza, Kristopher Villa and colleagues, with an educational johnie from [employer]. ACT Questionnaire In the past 4 weeks, how much of the time did your asthma keep you from getting as much done at work, school or at home?: None of the time During the past 4 weeks, how often did your asthma symptoms wake you up at night or earlier than usual in the morning?: Not at all During the past 4 weeks, how often have you had to use your rescue inhaler or nebulizer medication?: Not at all How would you rate your asthma control during the past 4 weeks?: Completely controlled ACT Interpretation: Negative Score: 20 Review of Systems Const Denies chills, Denies fatigue, Denies fever(s), Denies headache(s) and Denies weakness Eyes Denies change in vision ENT Denies dizziness, Denies headache(s), Denies hearing loss, Denies nasal congestion, Denies sinus pain, Denies sinus pressure and Denies sore throat Card Denies chest pain, Denies lightheadedness, Denies dyspnea and Denies other (palpitations) Resp Denies cough, Denies dyspnea and Denies wheezing GI Denies abdominal pain, Denies melena, Denies hematochezia, Denies change in bowel habits, Denies dyspepsia and Denies nausea Denies hematuria and Denies dysuria Musc Denies abnormal gait, Denies myalgias, Denies arthralgias, Denies numbness and Denies tingling Skin/Breast Denies rash, Denies unusual bruising and Denies wounds Neuro Denies abnormal gait, Denies dizziness, Denies headache(s), Denies memory loss, Denies numbness, Denies Sensory deficit (Neuro), Denies tingling and Denies weakness Psych Denies anxiety, Denies depression and Denies memory loss Endo Denies cold intolerance, Denies fatigue, Denies heat intolerance, Denies polydipsia and Denies polyuria Sachin/Lymph Denies easy bleeding and Denies easy bruising Aller/Immun Denies wheezing Physical exam (Primary Care) Vital Signs: Last Vital Signs Temp 97.8 F 01/15/23 10:16 Pulse 98 01/15/23 10:16 Resp 14 01/15/23 10:16 BP 126/60 01/15/23 10:16 Pulse Ox 99 01/15/23 10:16 Oxygen Delivery Method Room Air 01/15/23 10:16 BMI result Body Mass Index 31.4 Tobacco/Smoking Status: Tobacco use Status Tobacco use date assessed 10/16/22 01/15/23 10:16 Patient Tobacco Use Status Former Tobacco user 01/15/23 10:16 Tobacco use type Cigarette 01/15/23 10:16 e-Cigarette/Vaping Use Never Used 01/15/23 10:16 Thrive Assessment: Date of Thrive Assessment Date Thrive assessed 01/15/23 01/15/23 10:27 Currently or been in a relationship where the following occur: no concerns reported Const General: no acute distress, well developed, alert and awake Nutritional Appearance: well nourished Orientation/consciousness: patient oriented x3 HENMT Head: Yes normocephalic and Yes atraumatic Ears: hearing grossly normal bilaterally and TM's normal bilaterally General nose exam: Normal external nose present and Normal nares present Mouth: Normal oral and palatal mucosa present and moist mucous membranes Teeth and gingiva: dentition normal Throat: Yes posterior oropharynx normal Eyes General: appearance normal, both eyes and all related structures Pupils: Equal, round and reactive pupils present and Pupil accommodation reflex normal EOM: EOMs intact bilaterally Neck Neck: Yes normal visual inspection, Yes no lymphadenopathy and Yes trachea midline Thyroid: Thyroid normal Carotids: no bruits Lymphatic: no lymphadenopathy noted Chest Chest palpation & inspection: normal inspection of the chest Resp Effort & Inspection: normal respiratory effort Auscultation: clear to auscultation bilaterally Cardio Rate: regular rate Rhythm: regular rhythm Heart sounds: S1 normal heart sound present, S2 normal heart sound present, no gallops, no murmurs and no rubs Bruits: no abdominal aortic bruits and no carotid bruits GI Palpation (GI): No Abdominal aortic bruit present, Soft to palpation, nontender, No hepatosplenomegaly present and No Rebound tenderness present Auscultation: normal bowel sounds General: Yes no CVA tenderness Back/Spine/Pelvis Back: no CVA tenderness Cervical Spine: cervical ROM normal and No Cervical spine tenderness Thoracic/Lumbar Spine: thoraco-lumbar ROM normal, No pain with thoraco-lumbar ROM, No thoracic spinal tenderness and No lumbar spinal tenderness Skin Lesions: no lesions Rashes: no rashes Trauma: no lacerations or abrasions Wounds: no wounds Nails: normal Neuro Other: 4/5 strength bilateral LE General: patient oriented x3 Cranial nerves: Yes Equal, round and reactive pupils present Cognition (Neuro): normal cognition Gait exam (Neuro): Normal gait present Motor exam (neuro): 5/5 motor strength present throughout Sensory Exam: No Sensory deficit (Neuro) Deep tendon reflexes (DTR's): Right patellar reflex intensity grade: 2+ and Left patellar reflex intensity grade: 2+ Extrem General: Yes normal to inspection and No edema Psych Appearance: grossly normal Affect: normal affect Attitude: cooperative Thought process: Normal thought process present Assessment and Plan Assessment & Plan (1) Essential hypertension: Code(s): I10 - Essential (primary) hypertension Plan: Blood?pressure?is?controlled.??Goal?is?less?than?140/90 Continue?current?medication?regimen (2) Falls: Code(s): W19.XXXA - Unspecified fall, initial encounter Plan: She?has?had?a?couple?of?falls.??Vision?is?okay. Lower?extremities.??4/5?strength?bilaterally?and?patient?notices?subjective?weak ness. Will?refer?her?for?physical?therapy?for?low er?extremity?weakness?and?balance?training. Advised?she?keep?all?walk?ways?clear (3) Weakness of both lower extremities: Code(s): R29.898 - Other symptoms and signs involving the musculoskeletal system Plan: As?above,?referred?to?physical?therapy (4) Imbalance: Code(s): R26.89 - Other abnormalities of gait and mobility Plan: As?above (5) Laceration of skin of forearm: Code(s): S51.819A - Laceration without foreign body of unspecified forearm, initial encounter Plan: Laceration?and?abrasions?of?left?forearm?and?elbow Laceration?has?dog?ear?skin?flap?which?does?not?appear?amenable?to?suturing?due? to?very?thin?skin.??Closed?this?with?cyanocrylate?glue Bacitracin?and?a?nonstick?Telfa?pad?were?applied?to?her?abrasions. No?evidence?of?infection?but?advised?her?to?let?me?know?if?she?has?increasing?re dness?drainage?or?pain. She?had?a?tetanus?shot?about?6?months?awx-vo-uz-date (6) Abrasion: Code(s): T14.8XXA - Other injury of unspecified body region, initial encounter Plan: As?above (7) Elevated fasting blood sugar: Code(s): R73.01 - Impaired fasting glucose Plan: We?can?follow-up?on?her?blood?sugars?at?her?next?visit Encouraged?a?diet?low?in?sugars?and?starches (8) Asthma-COPD overlap syndrome: Code(s): J44.9 - Chronic obstructive pulmonary disease, unspecified Plan: Fairly?well?controlled.??Continue?current?inhaled?medications?and?follow- up?with?pulmonology?as?recommended (9) Adult general medical exam: Code(s): Z00.00 - Encounter for general adult medical examination without abnormal findings Plan: 82-year-old?female?presents?for?an?extended?exam Orders: Orders PT Evaluation and Treatment Today R26.89 - Other abnormalities of gait and mobility, R29.898 - Other symptoms and signs involving the musculoskeletal system, W19.XXXA - Unspecified fall, initial encounter Coding Level of Care Code Est Pt Level 4 (69544) Diagnoses Essential hypertension I10 Falls W19.XXXA Weakness of both lower extremities R29.898 Imbalance R26.89 Laceration of skin of forearm S51.819A Abrasion T14.8XXA Elevated fasting blood sugar R73.01 Asthma-COPD overlap syndrome J44.9 Adult general medical exam Z00.00
[2023-01-15 10:16] VITALS: BP 126/60; PULSE 98; RESP 14; TEMP 36.6; O2SAT 99; BMI 31.4
== END 2023-01-15 11:17 | disposition home or self-care (01) ==
PROVIDERS: PCP Family Medicine; Visit Provider Family Medicine
DX: I10 Essential (primary) hypertension (principal); J44.9 Chronic obstructive pulmonary disease, unspecified; W19.XXXA Unspecified fall, initial encounter; R29.898 Other symptoms and signs involving the musculoskeletal system; R26.89 Other abnormalities of gait and mobility; S51.819A Laceration without foreign body of unspecified forearm, initial encounter; T14.8XXA Other injury of unspecified body region, initial encounter; R73.01 Impaired fasting glucose
CPT/HCPCS: 99214

== ENCOUNTER 2023-01-15 10:21 | Outpatient (REF) | payer MEDICARE, SELFPAY ==
[2023-01-15 14:45] LABS: Appearance Urine Turbid; Color Urine Dark Yellow; Glucose Urine UA Negative (Negative); Leukocyte Esterase Urine Small (1+) (Negative); Nitrite Urine Negative (Negative); PH 5.5 (5.0-9.0); UMIC TRIGGER UA YES; Urine Blood Negative (Negative); Urine Ketones Trace mg/dL (Negative); Urine Protein Negative (Neg-Trace)
[2023-01-15 15:00] LABS: Bacteria Urine Trace (None Seen); Calcium Oxalate Crystals Urine Present; Other Crystals Urine Present; Squamous Epithelial Cell Urine >20 /HPF (0-2)
[2023-01-15 15:11] LABS: Creatinine Urine 204.95 mg/dL; Microalbum/Creatinine Ratio Ur 8.7 ug/mg cr (<30)
== END 2023-01-15 10:22 | disposition home or self-care (01) ==
LOC: HO.WFDLNP 10:21
PROVIDERS: Visit Provider Family Medicine
DX: Z00.00 Encounter for general adult medical examination without abnormal findings (principal); I10 Essential (primary) hypertension
CPT/HCPCS: 81001; 82043; 82570

== ENCOUNTER 2023-04-16 10:28 | Outpatient (AMB) | payer MEDICARE, SELFPAY ==
[2023-04-16 10:52] VITALS: BP 120/66; PULSE 92; O2SAT 98; BMI 31.8
--- NOTE | 2023-04-16 10:52 | MHC.PC.OV ---
Vital Signs 04/16/23 10:52 Height 5 ft 1 in Weight 168 lb 2 oz BMI 31.8 BP 120/66 Blood Pressure Location Lt brachial Position Sitting Pulse 92 Pulse Source Pulse Oximeter Pulse Oximetry (%) 98 Oxygen Delivery Method Room Air Intake Visit Reasons: f/u chronic?conditions?and?health?maintenance Intake Note: Patient is here to follow up on chronic conditions and health maintenance. Allergies latex Allergy (Verified 04/16/23 10:57) rash Tobacco use date assessed: 04/16/23 Fall risk assessment: 2 + Falls in past year Last assessed Fall Risk: 04/16/23 Dental Screening Dental Screen Date: 04/16/23 Did you have a dental visit in the last 12 months?: No Did you have a dental problem in the last 6 months where you did not have access to dental care?: No Was dental information given to patient?: Patient has dentist HPI f/u chronic?conditions?and?health?maintenance HPI Details 82 y/o female presents to f/u chronic conditions and health maintenance. Blood pressure today 120/66. She is on lisinopril 10mg daily. Hx of elevated fasting blood sugars. A1c today 04/16/23 is 5.8%. [facility] Medical History Pulmonary emboli (~01/2022) Skin cancer History of COVID-19 Essential hypertension Chronic allergic rhinitis Hyponatremia Asthma-COPD overlap syndrome Surgical History History of esophagogastroduodenoscopy (EGD) History of colonoscopy Family History Mother Breast cancer Father Prostate CA Stroke Social History Household Members: None Housing: Other (mobile home) Alcohol intake: current Alcohol intake frequency: 0-2 drinks per day Patient Tobacco Use Status: Former Tobacco user Tobacco use type: Cigarette Years Smoked: 10 years e-Cigarette/Vaping Use: Never Used Second Hand Smoke Exposure: No service: No Current occupational status: retired Current occupational exposures/hazards: No Cognitive needs: No Hearing needs: No Vision needs: No Questionnaire PHQ-9 Over the last 2 weeks, how often have you been bothered by any of the following problems? 1. Little interest or pleasure in doing things: not at all 2. Feeling down, depressed, or hopeless: not at all 3. Trouble falling or staying asleep, or sleeping too much: not at all 4. Feeling tired or having little energy: not at all 5. Poor appetite or overeating: not at all 6. Feeling bad about yourself - or that you are a failure or have let yourself or your family down: not at all 7. Trouble concentrating on things, such as reading the newspaper or watching television: not at all 8. Moving or speaking so slowly that other people could have noticed. Or the opposite - being so fidgety or restless that you have been moving around a lot more than usual: not at all 9. Thoughts that you would be better off or of hurting yourself in some way: not at all Total score: 0 Depression Screening Interpretation: Negative Depression Screening Done: Yes 23878 - PHQ-9 Billing: Yes Source: Developed by Drs. Harsha Hood, Diana Mendoza, Kristopher Villa and colleagues, with an educational johnie from [employer]. Thrive Questionnaire Date Thrive assessed: 04/16/23 I am a: Patient What is your living situation today?: I have a steady place to live Within the past 12 months, did the food you bought not last and you didn't have the money to get more?: Often true Within the past 12 months, did you worry whether your food would run out before you got money to buy more?: Often true Do you have trouble paying for medicines?: No Do you have trouble getting transportation to medical appointments?: No Do you have trouble paying your heating and electricity bill?: No Do you have trouble taking care of your child, family member or friend?: No Do you have trouble with day-to-day activities such as bathing, preparing meals, shopping, managing finances, etc.?: No Are you currently unemployed and looking for a job?: No Are you interested in more education?: No THRIVE Score: 2 AUDIT C Alcohol Use Questionnaire (AUDIT-C) 1. How often do you have a drink containing alcohol?: 4 or more times a week 2. How many drinks containing alcohol do you have on a typical day when you are drinking?: 1 or 2 3. How often do you have six or more drinks on one occasion?: Never Total Score: 4 ROEL-7 AMB Questionnaire ROEL-7 Date ROEL - 7 assessed: 04/16/23 Feeling nervous, anxious, or on edge: 0 = Not at all Not being able to stop or control worryin = Not at all Worrying too much about different things: 0 = Not at all Trouble relaxin = Not at all Being so restless that it is hard to sit still: 0 = Not at all Becoming easily annoyed or irritable: 0 = Not at all Feeling afraid as if something awful might happen: 0 = Not at all Total ROEL-7 score (0-4 normal; 5-9 mild; 10-14 moderate; 15-21 severe): 0 Source: Developed by Drs. Harsha Hood, Diana Mendoza, Kristopher Villa and colleagues, with an educational johnie from [employer]. ROEL-7 Assessment Billing ROEL-7 Assessment Tool: ROEL-7 Assessment 66106 Review of Systems Const Denies chills, Denies fatigue, Denies fever(s), Denies headache(s) and Denies weakness ENT Denies dizziness and Denies headache(s) Card Denies chest pain, Denies lightheadedness, Denies dyspnea and Denies other (Palpitations) Resp Denies cough, Denies dyspnea, Denies wheezing and Denies other ( shortness of breath) Musc Denies numbness and Denies tingling Neuro Denies dizziness, Denies headache(s), Denies numbness, Denies tingling, Denies paresthesias and Denies weakness Psych Denies anxiety and Denies depression Endo Denies fatigue Aller/Immun Denies wheezing Physical exam (Primary Care) Vital Signs: Last Vital Signs Pulse 92 04/16/23 10:52 BP 120/66 04/16/23 10:52 Pulse Ox 98 04/16/23 10:52 Oxygen Delivery Method Room Air 04/16/23 10:52 BMI result Body Mass Index 31.8 Tobacco/Smoking Status: Tobacco use Status Tobacco use date assessed 04/16/23 04/16/23 11:04 Patient Tobacco Use Status Former Tobacco user 04/16/23 11:04 Tobacco use type Cigarette 04/16/23 11:04 e-Cigarette/Vaping Use Never Used 04/16/23 11:04 PHQ-9: PHQ-9 Score PHQ-9: Total score 0 04/16/23 11:04 Depression Screening Interpretation: Negative Thrive Assessment: Date of Thrive Assessment Date Thrive assessed 04/16/23 04/16/23 11:04 Const General: no acute distress and well developed Nutritional Appearance: well nourished Orientation/consciousness: patient oriented x3 HENMT Head: Yes normocephalic and Yes atraumatic Eyes General: appearance normal, both eyes and all related structures Pupils: Equal, round and reactive pupils present EOM: EOMs intact bilaterally Resp Effort & Inspection: normal respiratory effort Auscultation: clear to auscultation bilaterally Cardio Rate: regular rate Rhythm: regular rhythm Heart sounds: S1 normal heart sound present, S2 normal heart sound present, no gallops, no murmurs and no rubs Neuro General: patient oriented x3 and gait normal Cranial nerves: Yes Equal, round and reactive pupils present Psych Affect: normal affect Assessment and Plan Assessment & Plan (1) Essential hypertension: Code(s): I10 - Essential (primary) hypertension Plan: Blood?pressure?is?well?controlled.??Goal?is?less?than?140/90 Continue?current?medication?regimen (2) Pre-diabetes: Code(s): R73.03 - Prediabetes Plan: A1c?5.8%;?pre?diabetes?range. Encouraged?a?diet?lower?in?sugars?and?starches Patient?requests?referral?to?the?nurse?navigator?for?nutrition?teaching.-ordered (3) Asthma-COPD overlap syndrome: Code(s): J44.9 - Chronic obstructive pulmonary disease, unspecified Plan: Followed?by?pulmonology?at?[facility] [place] Lungs?are?clear?today?and?she?is?breathing?easy. Pulmonology?planning?for?pulmonary?rehab Follow-up?with?pulmonology?as?recommended (4) Lower extremity weakness: Code(s): R29.898 - Other symptoms and signs involving the musculoskeletal system Plan: Lower?extremity?weakness?and?unsteady?gait?with?history?of?falls Patient?has?had?a?left?shoulder?fracture?due?to?fall?and?has?undergone?physical?therapy?for?left?shoulder?but?has?not?undergone?physical?therapy?for?lower?extremity?weakness?as?ordered?at?last?visit. Updated?PT?order (5) Unsteady gait: Code(s): R26.81 - Unsteadiness on feet Plan: As?above Orders: Referrals Nurse Navigator Referral R73.03 - Prediabetes Coding Level of Care Code Est Pt Level 4 (99579) Diagnoses Essential hypertension I10 Pre-diabetes R73.03 Asthma-COPD overlap syndrome J44.9 Lower extremity weakness R29.898 Unsteady gait R26.81 Additional Codes ROEL-7 Assessment Billing - ROEL-7 Assessment Tool: ROEL-7 Assessment 08953 ([id number])
== END 2023-04-16 11:38 | disposition home or self-care (01) ==
PROVIDERS: PCP Family Medicine; Visit Provider Family Medicine
DX: J44.9 Chronic obstructive pulmonary disease, unspecified (principal); I10 Essential (primary) hypertension; R73.03 Prediabetes; R29.898 Other symptoms and signs involving the musculoskeletal system; R26.81 Unsteadiness on feet
CPT/HCPCS: 99214

== ENCOUNTER 2023-06-03 10:26 | Outpatient (AMB) | payer MEDICARE, SELFPAY ==
[2023-06-03 10:33] VITALS: PULSE 98; O2SAT 95; BMI 29.9
--- NOTE | 2023-06-03 10:33 | A.OFFVIS_ITS ---
Vital Signs 06/03/23 10:33 Height 5 ft 1 in Weight 158 lb BMI 29.9 Pulse 98 Pulse Source Pulse Oximeter Pulse Oximetry (%) 95 Oxygen Delivery Method Room Air Intake Visit Reasons: copd Filterer Required: No Allergies latex Allergy (Verified 06/03/23 10:35) rash HPI Comments Details: The patientis a 82 y/o woman with a history of COPD. Overall doing well on the Symbicort. She does take it daily. Has not had to use her rescue inhaler. She does complain of an intermittent cough, mild in severity. Also has dyspnea on exertion with activity. She also complains of back pain, moderate in severity. She recently was evaluated for hyponatremia. In view of the hyponatremia I will request a chest xray. 02/28/2022 this is a telehealth visit. The patient recently was hospitalized at [facility] after developing significant shortness breath hypoxia. She had called the office in the triage nurse recommended that she go to the ER. Therefore she went via ambulance. She was found to have bilateral pulmonary emboli. The patient was placed on Coumadin because Eliquis was too expensive and she is tolerating that well. She was subsequently discharged lower extremity Dopplers were not done and an echocardiogram was not done. After she was discharged she did follow-up with primary care doctor who did a lower extremity Doppler findings small clot. I explained to the patient that the Coumadin will help stop the propagation of clot but will take a couple months to completely resolve all the clots. The patient did not get an echocardiogram. She does have some dyspnea on exertion. She is no longer on oxygen only in the hospital. Will go and have her undergo an echocardiogram at this time. At this point appears that the pulmonary emboli is consistent with an unprovoked event to therefore she should continue the Coumadin for and indefinite amount of time. Patient understands that she is high risk for recurrence if she stops Coumadin at this time. 06/02/2022 the patient is here for a pulmonary follow-up visit. Overall the patient has been doing well. The patient continues on the Coumadin although the levels go up and down. She recently developed nasal congestion and postnasal drip and significant drainage. She also has an irritation the tip of her nose on her left nostril. She is not sure if she has any infection. Although I explained to her that taking oral antibiotics in view of the Coumadin specially with her elevated INR it may result in further elevations in the INR level. The secretions her nose appear to be thin. Will go ahead and start her on ipratropium nasal spray to try to Dr. Lassiter and also will place her on Bactroban to try to treat for a local infection. If the patient is no better she can always call and I can send her a course of doxycycline for sinusitis. She continues on the Coumadin for the unprovoked blood clots. She understands that with the unprovoked nature she should continue with the Coumadin lifelong. Chitra martinez does have a schedule procedure for a scan anomaly. I did explain to her that she can always stop the Coumadin but 4 days check her INR prior to the procedure and then have the procedure done safely and then go back on the Coumadin. 12/04/2022 the patient is here for a pulmonary follow-up visit. Overall the patient has been doing well. Recently had skin cancer surgery. Healing well. The patient still on Coumadin. She is had a hard time controlling does been fluctuating off. Therefore she was prescribed Eliquis. Get into a program to be able to get a reasonable schwartz. Otherwise she can not afford it. She has not started the Eliquis as of yet. I did encourage her to started also some more effective anticoagulation and less risk specially with her INR fluctuations the patient has been on anticoagulation since January. A good talk to her that once she completes the 1 year medardo afterwards we can consider a prophylactic dose of Eliquis 2.5 mg twice a day. However, and start the farm mg twice a day. The patient is having some dyspnea exertion. Moderate severity. Patient would benefit from pulmonary rehabilitation time. She does continue to use respiratory inhalers with partial improvement her symptoms. Will go ahead and request PFTs pulmonary rehab at [place]. 06/03/2023 the patient is here for a pulmonary follow-up visit. Overall she has been doing well. She continues on the Coumadin. She opted not switching over to Eliquis. Although she still has fluctuation of her INR. The to feels more comfortable knowing her INR numbers however. we did review her CT scan that she had back in 2021 and she had the blood clots. personally by me. No evidence of any nodular densities to follow. Although at this point based on the fact that the patient has been on the anticoagulation she continues to have some dyspnea on exertion. Will go ahead and request a perfusion study to make sure that there is complete resolution of her clots. If indeed she has resolution of her clots. she continues use her inhalers with good effect. Does not use her rescue inhaler more than twice a week. Otherwise patient is without any other complaints. [facility] Medical History Pulmonary emboli (~01/2022) Skin cancer History of COVID-19 Essential hypertension Chronic allergic rhinitis Hyponatremia Asthma-COPD overlap syndrome Surgical History History of esophagogastroduodenoscopy (EGD) History of colonoscopy Family History Mother Breast cancer Father Prostate CA Stroke Social History Household Members: None Housing: Other (mobile home) Alcohol intake: current Alcohol intake frequency: 0-2 drinks per day Patient Tobacco Use Status: Former Tobacco user Tobacco use type: Cigarette Years Smoked: 10 years e-Cigarette/Vaping Use: Never Used Second Hand Smoke Exposure: No service: No Current occupational status: retired Current occupational exposures/hazards: No Cognitive needs: No Hearing needs: No Vision needs: No Review of Systems Const Denies chills, Denies fatigue, Denies fever(s), Denies headache(s) and Denies weakness ENT Denies dizziness and Denies headache(s) Card Denies chest pain, Denies lightheadedness, Denies dyspnea, Reports dyspnea on exertion and Denies other (Palpitations) Resp Denies cough, Denies dyspnea, Reports dyspnea on exertion, Denies wheezing and Denies other ( shortness of breath) Musc Denies numbness and Denies tingling Neuro Denies dizziness, Denies headache(s), Denies numbness, Denies tingling, Denies paresthesias and Denies weakness Psych Denies anxiety and Denies depression Endo Denies fatigue Aller/Immun Denies wheezing Physical Exam Vital Signs: Last Vital Signs Pulse 98 06/03/23 10:33 Pulse Ox 95 06/03/23 10:33 Oxygen Delivery Method Room Air 06/03/23 10:33 BMI result Body Mass Index 29.9 Const General: alert Neck Neck: Yes normal visual inspection, Yes full ROM and Yes no lymphadenopathy Chest Chest palpation & inspection: normal inspection of the chest Resp Effort & Inspection: normal respiratory effort Auscultation: diminished lung sounds Cardio Rate: regular rate Rhythm: regular rhythm Heart sounds: S1 normal heart sound present and S2 normal heart sound present GI Palpation (GI): Soft to palpation and nontender Auscultation: normal bowel sounds Skin General skin exam: rashes and/or lesions noted Assessment & Plan Assessment & Plan (1) Asthma-COPD overlap syndrome: Code(s): J44.9 - Chronic obstructive pulmonary disease, unspecified Category: Medical (2) COPD (chronic obstructive pulmonary disease): Code(s): J44.9 - Chronic obstructive pulmonary disease, unspecified Category: Medical Qualifiers: COPD type: chronic bronchitis Chronic bronchitis type: simple Qualified Code(s): J41.0 - Simple chronic bronchitis (3) Pulmonary emboli: Onset Date: ~01/2022 Code(s): I26.99 - Other pulmonary embolism without acute cor pulmonale Category: Medical Qualifiers: Pulmonary embolism type: multiple subsegmental (without acute cor pulmonale) Qualified Code(s): I26.94 - Multiple subsegmental pulmonary emboli without acute cor pulmonale Plan continue Airduo PRABHU as needed continue Duoneb BID as needed Nasal rinsing OTC allergy therapy start ipratropium nasal spray continue Coumadin to keep INR 2-3, agree with switching to Eliquis if INR is not consistent Pulmonary rehab at [place] when she completes her PT Perfusion study to r/o chrmonic thrombo-embolic disease F/U 6 months Orders: Orders NM pul perfusion Today I26.99 - Other pulmonary embolism without acute cor pulmonale Pneumococcal 20 Immunization Today Z23 - Encounter for immunization XR chest 2V Today I26.94 - Multiple subsegmental pulmonary emboli without acute cor pulmonale Coding Level of Care Code Est Pt Level 4 (09515) Diagnoses Asthma-COPD overlap syndrome J44.9 Simple chronic bronchitis J41.0 COPD type: chronic bronchitis Chronic bronchitis type: simple Multiple subsegmental pulmonary emboli without acute cor pulmonale I26.94 Pulmonary embolism type: multiple subsegmental (without acute cor pulmonale) Time Spent (min) 17
== END 2023-06-03 11:06 | disposition home or self-care (01) ==
PROVIDERS: PCP Family Medicine; Visit Provider Hospitalist
DX: J44.9 Chronic obstructive pulmonary disease, unspecified (principal); I26.94 Multiple subsegmental thrombotic pulmonary emboli without acute cor pulmonale
CPT/HCPCS: 99214

== ENCOUNTER → 2023-06-03 10:26 | Outpatient (BNVA) | payer MEDICARE, SELFPAY | PROVIDERS: PCP Family Medicine; Visit Provider Hospitalist | DX: Z23 Encounter for immunization (principal); J44.9 Chronic obstructive pulmonary disease, unspecified; J41.0 Simple chronic bronchitis; I26.94 Multiple subsegmental thrombotic pulmonary emboli without acute cor pulmonale; Z79.899 Other long term (current) drug therapy; Z79.01 Long term (current) use of anticoagulants | CPT/HCPCS: 90471; 90677; 99212 ==

== ENCOUNTER → 2023-06-10 10:53 | Outpatient (REF) | payer MEDICARE, SELFPAY ==
--- NOTE | ~2023-06-10 | XR_ITS ---
EXAMINATION: XR CHEST CLINICAL INFORMATION: Multiple subsegmental pulmonary emboli without acute cor pulmonale. COMPARISON: 08/30/2021. TECHNIQUE: 2 views of the chest were obtained. FINDINGS: Redemonstration of retrocardiac air-fluid level, possibly representing a hiatal hernia. Degenerative changes in the thoracic spine. Atherosclerotic aortic calcifications. No gross pleural effusion. No new focal consolidation to suggest pneumonia. XR/XR chest 2V IMPRESSION: Redemonstration of retrocardiac air-fluid level, possibly representing a hiatal hernia. Correlation with CT scan recommended for confirmation.
--- NOTE | ~2023-06-10 | NM_ITS ---
EXAMINATION: PULMONARY PERFUSION STUDY CLINICAL INFORMATION: Pulmonary embolism without acute cor pulmonale. History of Covid 19, COPD. COMPARISON: No previous lung scan is available for comparison. Radiographs of the chest dated 06/10/2023, the same date as this lung scan, are available for comparison. TECHNIQUE: Following the intravenous injection of 4.0 mCi Tc-99m MAA, the lungs were imaged in the anterior and posterior, left and right lateral and ASA, CORNELIUS, LPO, and RPO projections using a gamma scintillation camera. FINDINGS: No segmental perfusion defects are present. There is a small horizontal linear subsegmental perfusion abnormality present in the right lower lobe, which is likely in the superior segment. There is otherwise homogeneous distribution of activity bilaterally. There are no focal anatomic appearing perfusion defects present. The cardiomediastinal mediastinal silhouette is mildly dilated. The contemporaneous chest radiographs do not show any abnormality that corresponds to the small subsegmental perfusion defect described above. A moderate size hiatal hernia is present and may be contributing to the prominence of the cardiac silhouette described above. NM/NM pul perfusion IMPRESSION: Very low probability of pulmonary embolism.
== END ==
LOC: HO.NUCMED 10:53
PROVIDERS: PCP Family Medicine; Visit Provider Hospitalist
DX: I26.99 Other pulmonary embolism without acute cor pulmonale (principal); I26.94 Multiple subsegmental thrombotic pulmonary emboli without acute cor pulmonale
CPT/HCPCS: 71046; 78580; A9540

== ENCOUNTER 2023-07-16 10:28 | Outpatient (AMB) | payer MEDICARE, SELFPAY ==
[2023-07-16 10:44] VITALS: BP 122/60; PULSE 76; O2SAT 96; BMI 31.4
--- NOTE | 2023-07-16 10:44 | A.OFFPC_ITS ---
Vital Signs 07/16/23 10:44 Height 5 ft 1 in Weight 166 lb BMI 31.4 BP 122/60 Blood Pressure Location Lt brachial Position Sitting Pulse 76 Pulse Source Pulse Oximeter Pulse Oximetry (%) 96 Oxygen Delivery Method Room Air Intake Visit Reasons: f/u pre-diabetes, hypertension Intake Note: Patient is here for follow up on her pre-diabetes, and hypertension. She would like to have a new order for physical therapy for both legs due to falls, she would like to strengthen them. Allergies latex Allergy (Verified 07/16/23 10:50) rash Medication List - Last Reconciled 07/16/23 by Ric Flor MD albuterol sulfate 90 mcg/actuation (ProAir HFA) 2 puffs inhalation Q8H PRN cholecalciferol (vitamin D3) 50 mcg PO DAILY citalopram 20 mg PO DAILY 90 days clonazepam 0.5 mg PO BID PRN diltiazem HCl CD 120 mg PO DAILY 90 days fluticasone propion-salmeterol 232-14 mcg/actuation (AirDuo Digihaler) 1 inh inhalation BID 30 days fluticasone propionate 50 mcg/actuation (Flonase Allergy Relief) 1 spray intranasal Q12H 30 days gabapentin 300 mg PO BID ipratropium bromide 2 sprays intranasal TID PRN lisinopril 10 mg PO DAILY mupirocin 2% 1 appl topical TID 10 days omeprazole 20 mg PO DAILY Symbicort 160-4.5 mcg/actuation (budesonide-formoterol) 2 puffs PO BID NS tamsulosin 0.4 mg PO BEDTIME 90 days warfarin 2 mg PO DAILY 30 days Tobacco use date assessed: 07/16/23 Fall risk assessment: No Falls in past year Last assessed Fall Risk: 07/16/23 Dental Screening Dental Screen Date: 07/16/23 Did you have a dental visit in the last 12 months?: No Did you have a dental problem in the last 6 months where you did not have access to dental care?: No Was dental information given to patient?: Patient has dentist HPI f/u pre-diabetes, hypertension HPI Details 82 y/o female presents to f/u pre-diabet es, hypertension. A1c today 07/16/23 5.6%. Blood pressure today 122/60. She is on lisinopril 10mg daily. Pt reports imbalance/falls. She is requesting physical therapy for her legs. Pt reports nasal congestion/discharge. HPI Comments History of Present Illness Details Documentation assistance for Ric Flor MD, was provided by Rodriguez Simmons, Associate Professor Of Medicine on 07/16/2023 at 11:36 AM CE. I, Dr. Flor, have read, observed, and verified documentation. [facility] Medical History Pulmonary emboli (~01/2022) Skin cancer History of COVID-19 Essential hypertension Chronic allergic rhinitis Hyponatremia Asthma-COPD overlap syndrome Surgical History History of esophagogastroduodenoscopy (EGD) History of colonoscopy Family History Mother Breast cancer Father Prostate CA Stroke Social History Household Members: None Housing: Other (mobile home) Alcohol intake: current Alcohol intake frequency: 0-2 drinks per day Patient Tobacco Use Status: Former Tobacco user Tobacco use type: Cigarette Years Smoked: 10 years e-Cigarette/Vaping Use: Never Used Second Hand Smoke Exposure: No service: No Current occupational status: retired Current occupational exposures/hazards: No Cognitive needs: No Hearing needs: No Vision needs: No Questionnaire Thrive Questionnaire Date Thrive assessed: 04/16/23 ROEL-7 AMB Questionnaire ROEL-7 Date ROEL - 7 assessed: 04/16/23 Source: Developed by Drs. Harsha Hood, Diana Mendoza, Kristopher Villa and colleagues, with an educational johnie from [employer] Review of Systems Const Denies chills, Denies fatigue, Denies fever(s), Denies headache(s) and Denies weakness ENT Denies dizziness, Denies headache(s), Reports nasal congestion and Reports nasal discharge Card Denies dyspnea Resp Denies cough, Denies dyspnea, Denies wheezing and Denies other (shortness of breath) Musc Denies numbness and Denies tingling Neuro Denies dizziness, Denies headache(s), Denies numbness, Denies tingling and Denies weakness Psych Denies anxiety and Denies depression Endo Denies fatigue Aller/Immun Denies wheezing Physical exam (Primary Care) Vital Signs: Last Vital Signs Pulse 76 07/16/23 10:44 BP 122/60 07/16/23 10:44 Pulse Ox 96 07/16/23 10:44 Oxygen Delivery Method Room Air 07/16/23 10:44 BMI result Body Mass Index 31.4 Tobacco/Smoking Status: Tobacco use Status Tobacco use date assessed 07/16/23 07/16/23 10:53 Patient Tobacco Use Status Former Tobacco user 07/16/23 10:47 Tobacco use type Cigarette 07/16/23 10:47 e-Cigarette/Vaping Use Never Used 07/16/23 10:47 Thrive Assessment: Date of Thrive Assessment Date Thrive assessed 04/16/23 07/16/23 10:47 Const General: well developed; No acute distress Nutritional Appearance: well nourished Orientation/consciousness: patient oriented x3 HENMT Head: Yes normocephalic and Yes atraumatic Eyes General: appearance normal, both eyes and all related structures Pupils: Equal, round and reactive pupils present EOM: EOMs intact bilaterally Resp Effort & Inspection: normal respiratory effort Neuro General: patient oriented x3 and No gait normal Cranial nerves: Yes Equal, round and reactive pupils present Psych Affect: normal affect Results AMB Hemoglobin A1c AMB Hemoglobin A1c 5.6 % Last Edit by Carolina Ledesma CMA on 07/16/23 11:05 Results Reviewed Results Reviewed: Laboratory Last Values Hgb A1c (Clinic) 5.6 % (4.0-6.0) 07/16/23 11:02 Assessment and Plan Assessment & Plan (1) Pre-diabetes: Code(s): R73.03 - Prediabetes Plan: A1c?improved?from?5.8%?down?to?5.6%?which?is?back?in?high?normal?range Continue?to?work?at?a?diet?low?in?sugars?and?starches Will?continue?to?monitor (2) Nasal discharge: Code(s): J34.89 - Other specified disorders of nose and nasal sinuses Plan: Significant?nasal?discharge?and?has?been?given?ipratropium?nasal?spray. She?can?also?try?a?nasal?steroid-sent (3) Essential hypertension: Code(s): I10 - Essential (primary) hypertension Plan: Blood?pressure?is?well?controlled.??Goal?is?less?than?140/90 Continue?current?medication (4) Imbalance: Code(s): R26.89 - Other abnormalities of gait and mobility Plan: Resume?physical?therapy?for?lower?extremity?weakness?and?balance (5) Pulmonary emboli: Onset Date: ~01/2022 Code(s): I26.99 - Other pulmonary embolism without acute cor pulmonale Qualifiers: Pulmonary embolism type: multiple subsegmental (without acute cor pulmonale) Qualified Code(s): I26.94 - Multiple subsegmental pulmonary emboli without acute cor pulmonale Plan: History?of?PE Recent?pulmonary?perfusion?scan?showed?low?probability?of?PE ?and?no?wedge?perfusion?deficits.??Still?has?a??perfusion?abnormality? Follow-up?with?Pulmonary?Medicine Orders: Orders Complete Blood Count Auto Diff Today Z00.00 - Encounter for general adult medical examination without abnormal findings TSH reflex Free T4 Today Z00.00 - Encounter for general adult medical examination without abnormal findings Comprehensive [place]. Panel Fast Today Z00.00 - Encounter for general adult medical examination without abnormal findings Lipid Panel Today Z00.00 - Encounter for general adult medical examination without abnormal findings Microalbumin, Random (w Creat) Today I10 - Essential (primary) hypertension UA and rflx microscopic Today Z00.00 - Encounter for general adult medical examination without abnormal findings AMB Hemoglobin A1c Today Z13.9 - Encounter for screening, unspecified Medications: New fluticasone propionate 50 mcg/actuation (Flonase Allergy Relief) administer into each nostril 1 spray intranasal Q12H 30 days 16 grams 2RF Coding Level of Care Code Est Pt Level 4 (56073) Diagnoses Pre-diabetes R73.03 Nasal discharge J34.89 Essential hypertension I10 Imbalance R26.89 Multiple subsegmental pulmonary emboli without acute cor pulmonale I26.94 Pulmonary embolism type: multiple subsegmental (without acute cor pulmonale)
== END 2023-07-16 11:41 | disposition home or self-care (01) ==
PROVIDERS: PCP Family Medicine; Visit Provider Family Medicine
DX: R73.03 Prediabetes (principal); I26.94 Multiple subsegmental thrombotic pulmonary emboli without acute cor pulmonale; J34.89 Other specified disorders of nose and nasal sinuses; I10 Essential (primary) hypertension; R26.89 Other abnormalities of gait and mobility
CPT/HCPCS: 83036; 99214

== ENCOUNTER 2023-09-03 10:26 | Outpatient (AMB) | payer MEDICARE, SELFPAY ==
--- NOTE | 2023-09-03 10:44 | MHC.OFFWIV ---
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 Required: No Is last menstrual period known: No Post menopausal: No Patient : No Allergies latex Allergy (Verified 09/03/23 10:49) rash Medication List - Last Reconciled 09/03/23 by Africa Al PA-C albuterol sulfate 90 mcg/actuation (ProAir HFA) 2 puffs inhalation Q8H PRN cholecalciferol (vitamin D3) 50 mcg PO DAILY citalopram 20 mg PO DAILY 90 days clonazepam 0.5 mg PO BID PRN diltiazem HCl CD 120 mg PO DAILY 90 days fluticasone propion-salmeterol 232-14 mcg/actuation (AirDuo Digihaler) 1 inh inhalation BID 30 days fluticasone propionate 50 mcg/actuation (Flonase Allergy Relief) 1 spray intranasal Q12H 30 days gabapentin 300 mg PO BID ipratropium bromide 2 sprays intranasal TID PRN lisinopril 10 mg PO DAILY mupirocin 2% 1 appl topical TID 10 days omeprazole 20 mg PO DAILY Symbicort 160-4.5 mcg/actuation (budesonide-formoterol) 2 puffs PO BID NS tamsulosin 0.4 mg PO BEDTIME 90 days Do you need a note to return to daycare/school/sports/work: No HPI Itching all over HPI Details Patient is an 83-year-old female who presents today with complaints of itching everywhere. Her symptoms started when she she started coumadin a couple years ago. She states that she usually takes benadryl and it resolves but in the last 3 weeks it has significantly worsened. She states that about a month ago she stopped taking Zyrtec daily but recently just restarted this thinking it would help her symptoms but it has not. She states a couple years ago she was admitted for a DVT with a PE and while she was hospitalized she was started on Eliquis but when she was discharged her insurance did not cover it. She was then switched to Coumadin. She since then like to being on Coumadin despite the itching because she likes to see what her levels are. She knows that her insurance will cover the Eliquis now and she has only been resistant to change because she will like seeing her INR. She denies any other medication changes. No new pets, plants, products, foods or travel. There is no rash. She states it is an intense body itch that causes her to sometimes bleed because of the Coumadin. She did take the Coumadin today. No abdominal pain, nausea, vomiting. No fevers or chills. [facility] Medical History Pulmonary emboli (~01/2022) Skin cancer History of COVID-19 Essential hypertension Chronic allergic rhinitis Hyponatremia Asthma-COPD overlap syndrome Surgical History History of esophagogastroduodenoscopy (EGD) History of colonoscopy Family History Mother Breast cancer Father Prostate CA Stroke Social History Household Members: None Housing: Other (mobile home) Alcohol intake: current Alcohol intake frequency: 0-2 drinks per day Patient Tobacco Use Status: Former Tobacco user Tobacco use type: Cigarette Years Smoked: 10 years e-Cigarette/Vaping Use: Never Used Second Hand Smoke Exposure: No service: No Current occupational status: retired Current occupational exposures/hazards: No Cognitive needs: No Hearing needs: No Vision needs: No Physical Exam Vital Signs: Last Vital Signs Temp 97.4 F 09/03/23 10:52 Pulse 94 09/03/23 10:52 Resp 16 09/03/23 10:52 BP 120/56 L 09/03/23 10:52 Pulse Ox 96 09/03/23 10:52 Oxygen Delivery Method Room Air 09/03/23 10:52 Const General: alert Neck Neck: Yes normal visual inspection, Yes full ROM and Yes no lymphadenopathy Chest Chest palpation & inspection: normal inspection of the chest Resp Effort & Inspection: normal respiratory effort Auscultation: diminished lung sounds Cardio Rate: regular rate Rhythm: regular rhythm Heart sounds: S1 normal heart sound present and S2 normal heart sound present Skin Other: No rash noted but she does have areas of excoriations on the upper extremities. She does have some bruising noted on all extremities in her upper chest wall consistent with her scratching. Results Reviewed Results Reviewed: Laboratory Tests 02/11/22 01/08/23 09:47 10:45 INR 2.4 H Creatinine 0.71 Estimated GFR > 60 Assessment & Plan Assessment & Plan (1) Itching: Code(s): L29.9 - Pruritus, unspecified Plan: ? Related to Coumadin. We will discontinue this and start Eliquis once INR is <2. We discussed risks and benefits and adverse effects of this medication. She does live at home alone and does have a history of falls but states that she is safe and has assistive devices. She is also going to physical therapy to work on her strengthening. She has a life Alert. She has not fallen recently. Labs ordered today. We will follow up pending test results. Hydroxyzine ordered to use as needed for the itching. Short term follow up in a few weeks to be reassessed. Sooner if needed. Patient understands and agrees with the plan. 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 Panel Today I26.94 - Multiple subsegmental pulmonary emboli without acute cor pulmonale, L29.9 - Pruritus, unspecified, Z79.01 - skilled nursing (current) use of anticoagulants AMB INR Today Z13.9 - Encounter for screening, unspecified Medications: New hydroxyzine HCl 10 mg PO TID PRN 30 tabs 0RF itching apixaban (Eliquis) 5 mg PO BID 60 tabs 1RF Coding Level of Care Code Est Pt Level 4 (61532) Diagnoses Itching L29.9 skilled nursing current use of anticoagulant Z79.01
[2023-09-03 10:52] VITALS: BP 120/56; PULSE 94; RESP 16; TEMP 36.3; O2SAT 96
== END 2023-09-03 11:14 | disposition home or self-care (01) ==
PROVIDERS: PCP Family Medicine; Visit Provider Physician Assistant
DX: L29.9 Pruritus, unspecified (principal); Z79.01 Long term (current) use of anticoagulants
CPT/HCPCS: 99214

== ENCOUNTER 2023-09-07 10:38 | Outpatient (AMB) | payer MEDICARE, SELFPAY ==
--- NOTE | 2023-09-07 10:48 | MHC.OFFWIV ---
Intake Vital Signs 09/07/23 10:57 Height 5 ft 1 in Weight 165 lb BMI 31.2 BP 110/60 Blood Pressure Location Lt brachial Position Sitting Respiration 18 Pulse 82 Pulse Source Palpation Intake Visit Reasons: Questions on coumadin Intake Note: switching blood thinners to eliquise Patient Tobacco Use Status: Former Tobacco user Allergies latex Allergy (Verified 09/07/23 10:55) rash Medication List - Last Reconciled 09/07/23 by Twila Ibarra MD albuterol sulfate 90 mcg/actuation (ProAir HFA) 2 puffs inhalation Q8H PRN apixaban (Eliquis) 5 mg PO BID cholecalciferol (vitamin D3) 50 mcg PO DAILY citalopram 20 mg PO DAILY 90 days clonazepam 0.5 mg PO BID PRN diltiazem HCl CD 120 mg PO DAILY 90 days fluticasone propion-salmeterol 232-14 mcg/actuation (AirDuo Digihaler) 1 inh inhalation BID 30 days fluticasone propionate 50 mcg/actuation (Flonase Allergy Relief) 1 spray intranasal Q12H 30 days gabapentin 300 mg PO BID hydroxyzine HCl 10 mg PO TID PRN ipratropium bromide 2 sprays intranasal TID PRN lisinopril 10 mg PO DAILY omeprazole 20 mg PO DAILY Symbicort 160-4.5 mcg/actuation (budesonide-formoterol) 2 puffs PO BID NS tamsulosin 0.4 mg PO BEDTIME 90 days Do you need a note to return to daycare/school/sports/work: No HPI HPI Comments History of Present Illness Details The patient is a 83 year old female with a past medical history of DVT, PE on coumadin. She was recently seen with c/o chronic itching 2/2 coumadin. Originally had been ordered eliquis though at the time was not covered by insurance. Decision was made to DC coumadin and start eliquis when INR <2.0. She had her INR performed this morning-1.6 PHYSICAL EXAM: GENERAL: Alert and oriented x 3. NAD EYES: EOMI. Anicteric. LUNGS: Clear to auscultation bilaterally. CARDIOVASCULAR: Regular rate and rhythm. No murmur. No JVD. SKIN: No rashes or lesions. Warm. NEUROLOGIC: No focal neurological deficits. PSYCHIATRIC: Cooperative. Appropriate mood and affect [facility] Medical History Pulmonary emboli (~01/2022) Skin cancer History of COVID-19 Essential hypertension Chronic allergic rhinitis Hyponatremia Asthma-COPD overlap syndrome Surgical History History of esophagogastroduodenoscopy (EGD) History of colonoscopy Family History Mother Breast cancer Father Prostate CA Stroke Social History Household Members: None Housing: Other (mobile home) Alcohol intake: current Alcohol intake frequency: 0-2 drinks per day Patient Tobacco Use Status: Former Tobacco user Tobacco use type: Cigarette Years Smoked: 10 years e-Cigarette/Vaping Use: Never Used Second Hand Smoke Exposure: No service: No Current occupational status: retired Current occupational exposures/hazards: No Cognitive needs: No Hearing needs: No Vision needs: No Physical Exam Vital Signs: Last Vital Signs Pulse 82 09/07/23 10:57 Resp 18 09/07/23 10:57 BP 110/60 09/07/23 10:57 BMI result Body Mass Index 31.2 Assessment & Plan Assessment & Plan (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 (2) History of DVT (deep vein thrombosis): Code(s): Z86.718 - Personal history of other venous thrombosis and embolism Plan: start eliquis Coding Level of Care Code Est Pt Level 3 (38066) Diagnoses [facility] current use of anticoagulant Z79.01 History of DVT (deep vein thrombosis) Z86.718
[2023-09-07 10:57] VITALS: BP 110/60; PULSE 82; RESP 18; BMI 31.2
== END 2023-09-07 11:16 | disposition home or self-care (01) ==
PROVIDERS: PCP Family Medicine; Visit Provider Internal Medicine
DX: Z79.01 Long term (current) use of anticoagulants (principal); Z86.718 Personal history of other venous thrombosis and embolism
CPT/HCPCS: 99213

== ENCOUNTER 2023-09-24 08:44 | Outpatient (AMB) | payer MEDICARE, SELFPAY ==
--- NOTE | 2023-09-24 08:51 | A.OFFPC_ITS ---
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 The patient endorses intermittent swelling of both her ankles and feet for a long time. She made this appointment because yesterday her right ankle and foot appeared more swollen than the left. She wore compression stockings yesterday and elevated her extremities with some improvement. She says her toes on the right side do not look swollen anymore, but the ankle is still significantly more swollen than the left. It is uncomfortable but not painful. She does not appreciate any redness or other discoloration. She has chronic tingling in both of her feet which is at baseline. No increased work of breathing/shortness of breath, increased cough. No chest pain or palpitations. Patient reports Coumadin was switched to Eliquis a few weeks ago. Denies trauma. Consumes wine regularly, but she did not tell me how much. Patient reports she has been compliant with her Eliquis since it was prescribed. ROS: Constitutional: No fever, chills, fatigue or night sweats. Cardiovascular: No chest pain, chest pressure or chest discomfort. No palpitations. Gastrointestinal: No abdominal pain, vomiting or diarrhea. Neurologic: No headache, dizziness, syncope Hematologic/Lymphatics: Physical exam: Constitutional: Alert, in no distress. Eyes: Pupils are equal, round and reactive to light. Extraocular muscles intact. Neck: Supple, Full range of motion. No lymphadenopathy. Respiratory: Clear to auscultation. Cardiovascular: S1 S2 regular. No murmurs. Genitourinary: No costovertebral angle tenderness. Neurologic: No focal neurological deficits. Extremities: Warm and well perfused. DP pulses 2+. 2+ edema of the left ankle and top of the foot. 3+ edema of the right ankle and top of the foot and lower pretibial area. No warmth. Nontender to palpation. No erythema or ecchymosis. She can bend her ankle and wiggle her toes. She ambulates independently. Se nsation intact bilaterally. [facility] Medical History (Updated 09/24/23 @ 09:31 by LUCIO Stephens) Swelling of both lower extremities Pulmonary emboli (~01/2022) Skin cancer History of COVID-19 Essential hypertension Chronic allergic rhinitis Hyponatremia Asthma-COPD overlap syndrome Surgical History History of esophagogastroduodenoscopy (EGD) History of colonoscopy Family History Mother Breast cancer Father Prostate CA Stroke Social History Household Members: None Housing: Other (mobile home) Alcohol intake: current Alcohol intake frequency: 0-2 drinks per day Patient Tobacco Use Status: Former Tobacco user Tobacco use type: Cigarette Years Smoked: 10 years e-Cigarette/Vaping Use: Never Used Second Hand Smoke Exposure: No service: No Current occupational status: retired Current occupational exposures/hazards: No Cognitive needs: No Hearing needs: No Vision needs: No Questionnaire Thrive Questionnaire Date Thrive assessed: 04/16/23 ROEL-7 AMB Questionnaire ROEL-7 Date ROEL - 7 assessed: 04/16/23 Source: Developed by Drs. Harsha Hood, Diana Mendoza, Kristopher Villa and colleagues, with an educational johnie from [employer]. Physical exam (Primary Care) Vital Signs: Last Vital Signs Temp 97.9 F 09/24/23 08:56 Pulse 83 09/24/23 08:56 Resp 16 09/24/23 08:56 BP 128/54 L 09/24/23 08:56 Pulse Ox 97 09/24/23 08:56 Oxygen Delivery Method Room Air 09/24/23 08:56 BMI result Body Mass Index 31.6 Tobacco/Smoking Status: Tobacco use Status Tobacco use date assessed 09/24/23 09/24/23 08:59 Patient Tobacco Use Status Former Tobacco user 09/24/23 08:52 Tobacco use type Cigarette 09/24/23 08:52 e-Cigarette/Vaping Use Never Used 09/24/23 08:52 Thrive Assessment: Date of Thrive Assessment Date Thrive assessed 04/16/23 09/24/23 08:52 Assessment and Plan Assessment & Plan (1) Swelling of both lower extremities: Code(s): M79.89 - Other specified soft tissue disorders (2) History of DVT (deep vein thrombosis): Code(s): Z86.718 - Personal history of other venous thrombosis and embolism (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 Patient will be instructed to go to the hospital if this study is positive for DVT. Check renal and liver function and BNP. Acute CHF low on differential as she is oxygenating normally and has no increased shortness of breath/cough or chest discomfort. We will also check her TSH. We will follow up based on these results and recommend she see her PCP soon given report of drinking alcohol chronically on anticoagulation which she did not want to get into detail about today. Orders: Orders TSH reflex Free T4 Today E66.9 - Obesity, unspecified, M79.89 - Other specified soft tissue disorders US venous duplex LE BI Today M79.89 - Other specified soft tissue disorders, Z86.718 - Personal history of other venous thrombosis and embolism NT-proBNP Today M79.89 - Other specified soft tissue disorders Comprehensive Met. Panel Today M79.89 - Other specified soft tissue disorders Complete Blood Count no Diff Today M79.89 - Other specified soft tissue disorders Coding Level of Care Code Est Pt Level 4 (05404) Complex EM visit Add On G2211 Diagnoses Swelling of both lower extremities M79.89 History of DVT (deep vein thrombosis) Z86.718 salvage determiner current use of anticoagulant Z79.01
[2023-09-24 08:56] VITALS: BP 128/54; PULSE 83; RESP 16; TEMP 36.6; O2SAT 97; BMI 31.6
== END 2023-09-24 11:11 | disposition home or self-care (01) ==
PROVIDERS: PCP Family Medicine; Visit Provider Physician Assistant Medical
DX: M79.89 Other specified soft tissue disorders (principal); Z86.718 Personal history of other venous thrombosis and embolism; Z79.01 Long term (current) use of anticoagulants
CPT/HCPCS: 99214; G2211

== ENCOUNTER 2023-09-24 09:44 | Outpatient (REF) | payer MEDICARE, SELFPAY ==
[2023-09-24 11:11] LABS: MANUAL DIFF FLAG NO
[2023-09-24 11:18] LABS: Appearance Urine Clear; Color Urine Yellow; Glucose Urine UA Negative (Negative); Leukocyte Esterase Urine Negative (Negative); Nitrite Urine Negative (Negative); Urine Blood Negative (Negative); Urine Ketones Negative (Negative); Urine Protein Negative (Neg-Trace)
[2023-09-24 11:31] LABS: Basophils Absolute Auto 0.1 X10*3/uL (0.0-0.2); Basophils Percent Auto 0.9 % (0-2); Eosinophils Absolute Auto 0.3 X10*3/uL (0.0-0.4); Hematocrit 36.8 % (37.0-47.0); Hemoglobin 12.7 g/dl (12.0-16.0); Imm Gran Abs Auto 0.03 X10*3/uL (0.00-0.03); Imm Gran Pct Auto 0.5 % (0.0-0.4); Lymphocytes Absolute Auto 1.2 X10*3/uL (1.2-4.9); Lymphocytes Percent Auto 18.1 % (20-40); Mean Corpuscular HGB Conc 34.5 g/dl (31.0-35.0); Mean Corpuscular Hemoglobin 30.4 pg (27.0-33.0); Mean Platelet Volume 9.5 fL (9.4-12.3); Monocytes Absolute Auto 0.8 X10*3/uL (0.1-1.2); Monocytes Percent Auto 12.4 % (2-11); Neutrophils Absolute Auto 4.2 x10*3/uL (2.0-8.3); Neutrophils Percent Auto 63.1 % (45-73); Platelet Count 287 X10*3/uL (160-400); Red Blood Count 4.18 X10*6/uL (4.20-5.50); Red Cell Distribution Width 14.4 % (11.0-16.0); White Blood Count 6.6 X10*3/uL (4.8-10.8)
[2023-09-24 12:01] LABS: Alanine Aminotransferase 19 U/L (0-31); Albumin Level 3.8 g/dL (3.5-5.0); Alkaline Phosphatase 88 U/L (39-117); Anion Gap 12 (12-20); Aspartate Amino Transferase 22 U/L (5-31); Bilirubin Total 0.5 mg/dL (0.0-1.0); Blood Urea Nitrogen 5 mg/dL (9-16); Calcium 9.1 mg/dL (8.4-10.2); Carbon Dioxide 26 mmol/L (22-29); Chloride 94 mmol/L (96-108); Cholesterol 152 mg/dL (<200); Estimated Glomerular Filt Rate > 60; Glucose Fasting 110 mg/dL (60-99); Glucose Random 110 mg/dL (60-115); HDL Cholesterol 57 mg/dL (>40); LDL Cholesterol Calculated 75 mg/dL (<100); Potassium 4.2 mmol/L (3.3-5.1); Sodium 128 mmol/L (135-145); Total Protein 6.6 g/dL (6.5-8.0); Triglycerides 101 mg/dL (<150)
[2023-09-24 12:04] LABS: TSH reflex Free T4 0.71 uIU/mL (0.32-4.0)
[2023-09-24 12:05] LABS: Creatinine Urine 57.44 mg/dL; Microalbumin Urine < 5.0 mg/L
== END 2023-09-24 09:45 | disposition home or self-care (01) ==
LOC: HO.WFDLDS 09:44
PROVIDERS: Referring Provider Physician Assistant Medical; Visit Provider Family Medicine
DX: Z13.89 Encounter for screening for other disorder (principal)
CPT/HCPCS: 36415; 80053; 80061; 81003; 82043; 82570; 83880; 84443; 85025

== ENCOUNTER 2023-09-24 13:43 | Outpatient (REF) | payer MEDICARE, SELFPAY ==
--- NOTE | ~2023-09-24 | US_ITS ---
EXAMINATION: US VENOUS ULTRASOUND WITH DOPPLER LOWER EXTREMITY, BILATERAL CLINICAL INFORMATION: History of DVT COMPARISON: Bilateral lower extremity duplex on 02/07/2022 TECHNIQUE: Ultrasound of the deep veins is performed from the hip to the calf with compression sonography and color and pulse Doppler assessment. Spectral analysis with color-flow imaging is performed. FINDINGS: RIGHT: There is normal venous compression and respiratory variation and augmented flow. The visualized common femoral vein, superficial femoral vein, profunda femoral vein, popliteal vein, and the trifurcation region shows no evidence of deep venous thrombosis. There is no significant popliteal fossa cyst. LEFT: There is normal venous compression and respiratory variation and augmented flow. The visualized common femoral vein, superficial femoral vein, profunda femoral vein, popliteal vein, and the trifurcation region shows no evidence of deep venous thrombosis. There is no significant popliteal fossa cyst. If the patient's symptoms persist, followup ultrasound in 5 days 7 days might be of value to exclude proximal propagation from a non-visualized calf vein. US/US venous duplex LE BI IMPRESSION: No DVT demonstrated in the bilateral lower extremity.
== END 2023-09-24 13:44 | disposition home or self-care (01) ==
LOC: HO.US 13:43
PROVIDERS: PCP Family Medicine; Visit Provider Physician Assistant Medical
DX: R60.0 Localized edema (principal); Z86.718 Personal history of other venous thrombosis and embolism
CPT/HCPCS: 36415; 80053; 80061; 81003; 82570; 83880; 84443; 85025; 93970

== ENCOUNTER 2023-09-30 09:59 | Outpatient (AMB) | payer MEDICARE, SELFPAY ==
--- NOTE | 2023-09-30 10:01 | MHC.PC.OV ---
Vital Signs 09/30/23 10:14 Height 5 ft 1 in Weight 163 lb 6 oz BMI 30.9 BP 124/62 Blood Pressure Location Rt brachial Position Sitting Respiration 16 Pulse 67 Pulse Source Pulse Oximeter Pulse Oximetry (%) 95 Oxygen Delivery Method Room Air Intake Visit Reasons: med follow up/itching f/u Intake Note: Follow up medication. Didn't start the hydroxyzine because the pharmacist told her it may cause heart problems. Patient still having issue with itching and just using allergy medication Allergies latex Allergy (Verified 09/24/23 08:54) rash Medication List - Last Reconciled 09/30/23 by Africa Al PA-C albuterol sulfate 90 mcg/actuation (ProAir HFA) 2 puffs inhalation Q8H PRN apixaban (Eliquis) 5 mg PO BID cetirizine (Zyrtec) 10 mg PO DAILY PRN cholecalciferol (vitamin D3) 50 mcg PO DAILY citalopram 20 mg PO DAILY 90 days clonazepam 0.5 mg PO BID PRN diltiazem HCl CD 120 mg PO DAILY 90 days fluticasone propion-salmeterol 500-50 mcg/dose (Wixela Inhub) 1 inh inhalation BID fluticasone propionate 50 mcg/actuation (Flonase Allergy Relief) 1 spray intranasal Q12H 30 days gabapentin 300 mg PO BID hydroxyzine HCl 10 mg PO TID PRN lisinopril 10 mg PO DAILY omeprazole 20 mg PO DAILY tamsulosin 0.4 mg PO BEDTIME 90 days Tobacco use date assessed: 09/24/23 Dental Screening Dental Screen Date: 07/16/23 HPI med follow up/itching f/u HPI Details Patient is an 83-year-old female with a significant past medical history of DVT, hypertension, COPD, asthma, chronic allergic rhinitis, anxiety, chronic hyponatremia presenting today for a follow up regarding itching. She presented to the walk-in about a month ago with complaints of itching which she felt was related to her Coumadin. She had always had itching when she started Coumadin but she decided to take Zyrtec and at some point in the summer came off of Zyrtec for a month or 2 and had an increase in the amount of itching and restarted the Zyrtec. When I saw her we discontinue Coumadin and started Eliquis. She tells me today that she still has the itching. She is still compliant with the Zyrtec but does not think that it was the Coumadin causing the itching. We did do labs which showed a slightly worsened hyponatremia but this is chronic for her. She does drink wine nightly. She states that she has been reducing some of her plain water and has tried to drink electrolytes. She wonders if there something else that she is allergic to as she has just always mildly itchy. She did not take the hydroxyzine because it does interact with her citalopram. We did discuss that there is a risk of QT prolongation. No EKG on file. She denies any chest pain, shortness of breath or palpitations. Her blood pressure in the office is 124/62. She is on lisinopril 10 mg and diltiazem 120 mg. Her cholesterol is diet controlled. [facility] Medical History (Updated 09/24/23 @ 09:31 by LUCIO Stephens) Swelling of both lower extremities Pulmonary emboli (~01/2022) Skin cancer History of COVID-19 Essential hypertension Chronic allergic rhinitis Hyponatremia Asthma-COPD overlap syndrome Surgical History History of esophagogastroduodenoscopy (EGD) History of colonoscopy Family History Mother Breast cancer Father Prostate CA Stroke Social History Household Members: None Housing: Other (mobile home) Alcohol intake: current Alcohol intake frequency: 0-2 drinks per day Patient Tobacco Use Status: Former Tobacco user Tobacco use type: Cigarette Years Smoked: 10 years e-Cigarette/Vaping Use: Never Used Second Hand Smoke Exposure: No service: No Current occupational status: retired Current occupational exposures/hazards: No Cognitive needs: No Hearing needs: No Vision needs: No Questionnaire Thrive Questionnaire Date Thrive assessed: 04/16/23 ROEL-7 AMB Questionnaire ROEL-7 Date ROEL - 7 assessed: 04/16/23 Source: Developed by Drs. Harsha Hood, Diana Mendoza, Kristopher Villa and colleagues, with an educational johnie from [email or web address]. Physical exam (Primary Care) Vital Signs: Last Vital Signs Pulse 67 09/30/23 10:14 Resp 16 09/30/23 10:14 BP 124/62 09/30/23 10:14 Pulse Ox 95 09/30/23 10:14 Oxygen Delivery Method Room Air 09/30/23 10:14 BMI result Body Mass Index 30.9 Tobacco/Smoking Status: Tobacco use Status Tobacco use date assessed 09/24/23 09/30/23 10:04 Patient Tobacco Use Status Former Tobacco user 09/30/23 10:04 Tobacco use type Cigarette 09/30/23 10:04 e-Cigarette/Vaping Use Never Used 09/30/23 10:04 Thrive Assessment: Date of Thrive Assessment Date Thrive assessed 04/16/23 09/30/23 10:04 Const Orientation/consciousness: patient oriented x3 HENMT Ears: hearing grossly normal bilaterally Neck Thyroid: Thyroid normal Lymphatic: no lymphadenopathy noted Resp Auscultation: clear to auscultation bilaterally Cardio Rate: regular rate Rhythm: regular rhythm Heart sounds: S1 normal heart sound present and S2 normal heart sound present GI Inspection: Yes normal to inspection Palpation (GI): Soft to palpation and Other GI palpation findings present (nontender, no cva tenderness) Auscultation: normoactive bowel sounds Rectal Exam - Female: deferred Skin General skin exam: no rashes or lesions noted Neuro General: patient oriented x3, gait normal and no focal motor deficits Office Procedures EKG Details: EKG today in office is normal sinus rhythm at a rate of 73 beats per minute with nonspecific STT wave abnormalities. No prior study to compare. EKG interpreted by myself and Dr. Flor. [id number], Complete Results Reviewed Results Reviewed: Laboratory Tests 07/16/23 09/24/23 11:02 09:46 Sodium 128 L Potassium 4.2 Chloride 94 L Creatinine 0.77 Estimated GFR > 60 Fasting Glucose 110 H Hgb A1c (Clinic) 5.6 AST 22 ALT 19 Alkaline Phosphatase 88 Triglycerides 101 Cholesterol 152 LDL Cholesterol, Calc 75 HDL Cholesterol 57 TSH 0.71 Assessment and Plan Assessment & Plan (1) Hyponatremia: Code(s): E87.1 - Hypo-osmolality and hyponatremia Plan: We will recheck BMP today. (2) Itching: Code(s): L29.9 - Pruritus, unspecified Plan: Continue Zyrtec. Prescription for hydroxyzine reordered to use if needed. No QT prolongation on EKG today. Referral to Allergy and immunology. Advised that she will need to discontinue the antihistamine prior to being seen in Allergy and immunology. (3) History of DVT (deep vein thrombosis): Code(s): Z86.718 - Personal history of other venous thrombosis and embolism Plan: Continue with Eliquis. Plan Follow up with PCP in 3 months. Sooner if needed. Patient understands and agrees with the plan. Orders: Orders Basic Metabolic Panel Today E87.1 - Hypo-osmolality and hyponatremia, L29.9 - Pruritus, unspecified, Z86.718 - Personal history of other venous thrombosis and embolism AMB EKG-In Office Today E87.1 - Hypo-osmolality and hyponatremia, L29.9 - Pruritus, unspecified, Z86.718 - Personal history of other venous thrombosis and embolism Complete Blood Count Auto Diff Today E87.1 - Hypo-osmolality and hyponatremia, L29.9 - Pruritus, unspecified, Z86.718 - Personal history of other venous thrombosis and embolism Referrals Allergy & Immunology Referral L29.9 - Pruritus, unspecified Medications: Refilled hydroxyzine HCl 10 mg PO TID PRN 30 tabs 0RF itching Coding Level of Care Code Est Pt Level 4 (90366) Complex EM visit Add On G2211 Diagnoses Hyponatremia E87.1 Itching L29.9 History of DVT (deep vein thrombosis) Z86.718 CPT Codes EKG - CPT: [id number], Complete ([id number])
[2023-09-30 10:14] VITALS: BP 124/62; PULSE 67; RESP 16; O2SAT 95; BMI 30.9
== END 2023-09-30 10:48 | disposition home or self-care (01) ==
PROVIDERS: PCP Family Medicine; Visit Provider Physician Assistant
DX: E87.1 Hypo-osmolality and hyponatremia (principal); L29.9 Pruritus, unspecified; Z86.718 Personal history of other venous thrombosis and embolism
CPT/HCPCS: 93000; 99214; G2211

== ENCOUNTER 2023-11-05 15:17 | Outpatient (AMB) | payer MEDICARE, SELFPAY ==
--- NOTE | 2023-11-05 15:35 | A.OFFPC_ITS ---
Vital Signs 11/05/23 15:37 Height 5 ft 1 in Weight 165 lb 8 oz BMI 31.3 BP 110/60 Blood Pressure Location Rt brachial Position Sitting Respiration 22 H Pulse 86 Pulse Source Pulse Oximeter Pulse Oximetry (%) 95 Oxygen Delivery Method Room Air Intake Visit Reasons: CPE/ Follow up Labs Intake Note: Physical Dump Grounds Checker Required: No Allergies latex Allergy (Verified 11/05/23 15:36) rash Medication List - Last Reconciled 11/05/23 by Africa Al PA-C albuterol sulfate 90 mcg/actuation (ProAir HFA) 2 puffs inhalation Q8H PRN apixaban (Eliquis) 5 mg PO BID cetirizine (Zyrtec) 10 mg PO DAILY PRN cholecalciferol (vitamin D3) 50 mcg PO DAILY citalopram 20 mg PO DAILY 90 days clonazepam 0.5 mg PO BID PRN diltiazem HCl CD 120 mg PO DAILY 90 days fluticasone propion-salmeterol 500-50 mcg/dose (Wixela Inhub) 1 inh inhalation BID fluticasone propionate 50 mcg/actuation (Flonase Allergy Relief) 1 spray intranasal Q12H 30 days gabapentin 300 mg PO BID hydroxyzine HCl 10 mg PO TID PRN lisinopril 10 mg PO DAILY omeprazole 20 mg PO DAILY tamsulosin 0.4 mg PO BEDTIME 90 days Tobacco use date assessed: 09/24/23 Dental Screening Dental Screen Date: 07/16/23 HPI CPE/ Follow up Labs HPI Details Patient is an 83-year-old female who presents today for a follow up. She normally follows with Dr. Flor and prefers to follow with him for a full phyiscal. She has a longstanding history of hyponatremia, regular alcohol use, prediabetes, DVT and PE on chronic anticoagulation, COPD, hypertension, anxiety and depression. She does complain today of bilateral ankle and feet swelling with right worse than left. She had a negative ultrasound. She has not yet rechecked sodium. She is also on a calcium channel paolo. We did discuss that this can sometimes also promote swelling. Her legs are worse by the end of the day and better in the morning. She states that with exercises and elevation she can get the swelling to resolve. She denies any chest pain, palpitations or shortness on breath. No change in her urination. CV: Blood pressure today in the office is 110/60. She is on lisinopril 10 mg, diltiazem 120 mg. Cholesterol is diet controlled. Remains on Eliquis. Denies frequent falls. PULM: Breathing is controlled with Wixela and albuterol as needed. Treats her allergies with Flonase and Zyrtec. Psych: Longstanding history of anxiety and depression is on Celexa 20 mg and clonazepam 0.5 mg twice a day as needed. GI: GERD is controlled with omeprazole 20 mg daily. [facility] Medical History (Updated 09/24/23 @ 09:31 by LUCIO Stephens) Swelling of both lower extremities Pulmonary emboli (~01/2022) Skin cancer History of COVID-19 Essential hypertension Chronic allergic rhinitis Hyponatremia Asthma-COPD overlap syndrome Surgical History History of esophagogastroduodenoscopy (EGD) History of colonoscopy Family History Mother Breast cancer Father Prostate CA Stroke Social History Household Members: None Housing: Other (mobile home) Alcohol intake: current Alcohol intake frequency: 0-2 drinks per day Patient Tobacco Use Status: Former Tobacco user Tobacco use type: Cigarette Years Smoked: 10 years e-Cigarette/Vaping Use: Never Used Second Hand Smoke Exposure: No service: No Current occupational status: retired Current occupational exposures/hazards: No Cognitive needs: No Hearing needs: No Vision needs: No Questionnaire PHQ-9 Over the last 2 weeks, how often have you been bothered by any of the following problems? 1. Little interest or pleasure in doing things: not at all 2. Feeling down, depressed, or hopeless: not at all 3. Trouble falling or staying asleep, or sleeping too much: not at all 4. Feeling tired or having little energy: more than half the days 5. Poor appetite or overeating: more than half the days 6. Feeling bad about yourself - or that you are a failure or have let yourself or your family down: not at all 7. Trouble concentrating on things, such as reading the newspaper or watching television: not at all 8. Moving or speaking so slowly that other people could have noticed. Or the opposite - being so fidgety or restless that you have been moving around a lot more than usual: not at all 9. Thoughts that you would be better off or of hurting yourself in some way: not at all Total score: 4 Depression Screening Interpretation: Positive Depression Screening Done: Yes 93423 - PHQ-9 Billing: Yes Source: Developed by Drs. Harsha Hood, Diana Mendoza, Kristopher Villa and colleagues, with an educational johnie from [employer]. Thrive Questionnaire Date Thrive assessed: 11/05/23 I am a: Patient What is your living situation today?: I have a steady place to live Within the past 12 months, did the food you bought not last and you didn't have the money to get more?: Sometimes True Within the past 12 months, did you worry whether your food would run out before you got money to buy more?: Sometimes True Do you have trouble paying for medicines?: No Do you have trouble getting transportation to medical appointments?: No Do you have trouble paying your heating and electricity bill?: No Do you have trouble taking care of your child, family member or friend?: No Do you have trouble with day-to-day activities such as bathing, preparing meals, shopping, managing finances, etc.?: No Are you currently unemployed and looking for a job?: No Are you interested in more education?: No Please select the resources that you would like help with: None Currently or been in a relationship where the following occur: No concerns reported THRIVE Score: 2 AUDIT C Alcohol Use Questionnaire (AUDIT-C) 1. How often do you have a drink containing alcohol?: 4 or more times a week 2. How many drinks containing alcohol do you have on a typical day when you are drinking?: 1 or 2 3. How often do you have six or more drinks on one occasion?: Never Total Score: 4 ROEL-7 AMB Questionnaire ROEL-7 Date ROEL - 7 assessed: 04/16/23 Feeling nervous, anxious, or on edge: 0 = Not at all Not being able to stop or control worryin = Not at all Worrying too much about different things: 0 = Not at all Trouble relaxin = Not at all Being so restless that it is hard to sit still: 0 = Not at all Becoming easily annoyed or irritable: 0 = Not at all Feeling afraid as if something awful might happen: 0 = Not at all Total ROEL-7 score (0-4 normal; 5-9 mild; 10-14 moderate; 15-21 severe): 0 Source: Developed by Drs. Harsha Hood, Diana Mendoza, Kristopher Villa and colleagues, with an educational johnie from [employer]. REOL-7 Assessment Billing ROEL-7 Assessment Tool: ROEL-7 Assessment 63827 Physical exam (Primary Care) Vital Signs: Last Vital Signs Pulse 86 11/05/23 15:37 Resp 22 H 11/05/23 15:37 BP 110/60 11/05/23 15:37 Pulse Ox 95 11/05/23 15:37 Oxygen Delivery Method Room Air 11/05/23 15:37 BMI result Body Mass Index 31.3 Tobacco/Smoking Status: Tobacco use Status Tobacco use date assessed 09/24/23 11/05/23 15:35 Patient Tobacco Use Status Former Tobacco user 11/05/23 15:35 Tobacco use type Cigarette 11/05/23 15:35 e-Cigarette/Vaping Use Never Used 11/05/23 15:35 PHQ-9: PHQ-9 Score PHQ-9: Total score 4 11/05/23 15:41 Depression Screening Interpretation: Positive Thrive Assessment: Date of Thrive Assessment Date Thrive assessed 11/05/23 11/05/23 15:41 Currently or been in a relationship where the following occur: No concerns reported Const Orientation/consciousness: patient oriented x3 HENMT Ears: hearing grossly normal bilaterally Neck Thyroid: Thyroid normal Lymphatic: no lymphadenopathy noted Resp Auscultation: clear to auscultation bilaterally Cardio Rate: regular rate Rhythm: regular rhythm Heart sounds: S1 normal heart sound present and S2 normal heart sound present GI Inspection: Yes normal to inspection Palpation (GI): Soft to palpation and Other GI palpation findings present (nontender, no cva tenderness) Auscultation: normoactive bowel sounds Rectal Exam - Female: deferred Skin General skin exam: no rashes or lesions noted Neuro General: patient oriented x3, gait normal and no focal motor deficits Results Reviewed Results Reviewed: Laboratory Tests 07/16/23 09/24/23 09/24/23 11:02 09:46 09:47 WBC 6.6 RBC 4.18 L Hgb 12.7 Hct 36.8 L Plt Count 287 Sodium 128 L Potassium 4.2 Chloride 94 L Carbon Dioxide 26 Anion Gap 12 BUN 5 L Creatinine 0.77 Estimated GFR > 60 Fasting Glucose 110 H Hgb A1c (Clinic) 5.6 Calcium 9.1 Total Bilirubin 0.5 AST 22 ALT 19 Alkaline Phosphatase 88 Triglycerides 101 Cholesterol 152 LDL Cholesterol, Calc 75 HDL Cholesterol 57 TSH 0.71 Urine Creatinine Urine Microalbumin 09/24/23 10:04 WBC RBC Hgb Hct Plt Count Sodium Potassium Chloride Carbon Dioxide Anion Gap BUN Creatinine Estimated GFR Fasting Glucose Hgb A1c (Clinic) Calcium Total Bilirubin AST ALT Alkaline Phosphatase Triglycerides Cholesterol LDL Cholesterol, Calc HDL Cholesterol TSH Urine Creatinine 57.44 Urine Microalbumin < 5.0 Assessment and Plan Assessment & Plan (1) Essential hypertension: Code(s): I10 - Essential (primary) hypertension Plan: Continue current regimen (2) Swelling of both lower extremities: Code(s): M79.89 - Other specified soft tissue disorders Plan: BNP was not drawn last time. Ordered today. Labs ordered including CBC BMP as well. Reviewed ultrasound which was normal. Echo ordered. (3) Hyponatremia: Code(s): E87.1 - Hypo-osmolality and hyponatremia Plan: She has tried to fluid restrict. She does drink wine nightly. We will refer to Nephrology. (4) Pre-diabetes: Code(s): R73.03 - Prediabetes Plan: A1c ordered. We will follow up pending test results. Orders: Orders B Type Natriuretic Peptide Today M79.89 - Other specified soft tissue disorders CA echo transthoracic complete Today I10 - Essential (primary) hypertension, M79.89 - Other specified soft tissue disorders Hemoglobin A1c Today R73.03 - Prediabetes Referrals Nephrology Referral E87.1 - Hypo-osmolality and hyponatremia, I10 - Essential (primary) hypertension Coding Level of Care Code Est Pt Level 4 (00966) Complex EM visit Add On G2211 Diagnoses Essential hypertension I10 Swelling of both lower extremities M79.89 Hyponatremia E87.1 Pre-diabetes R73.03 Additional Codes ROEL-7 Assessment Billing - REOL-7 Assessment Tool: ROEL-7 Assessment 53231 ([id number])
[2023-11-05 15:37] VITALS: BP 110/60; PULSE 86; RESP 22; O2SAT 95; BMI 31.3
== END 2023-11-05 16:05 | disposition home or self-care (01) ==
PROVIDERS: PCP Family Medicine; Visit Provider Physician Assistant
DX: I10 Essential (primary) hypertension (principal); M79.89 Other specified soft tissue disorders; E87.1 Hypo-osmolality and hyponatremia; R73.03 Prediabetes

== ENCOUNTER → 2023-11-05 15:17 | Outpatient (BNVA) | payer MEDICARE, SELFPAY | PROVIDERS: PCP Family Medicine; Visit Provider Physician Assistant | DX: I10 Essential (primary) hypertension (principal); M79.89 Other specified soft tissue disorders; E87.1 Hypo-osmolality and hyponatremia; R73.03 Prediabetes | CPT/HCPCS: 96127; 99212 ==

== ENCOUNTER 2023-11-10 10:50 | Outpatient (AMB) | payer MEDICARE, MEDICAID, SELFPAY ==
[2023-11-10 10:57] VITALS: BP 120/60; PULSE 90; O2SAT 94; BMI 31.4
--- NOTE | 2023-11-10 10:57 | MHC.OFFVIS ---
Vital Signs 11/10/23 10:57 Height 5 ft 1 in Weight 166 lb 7.184 oz BMI 31.4 BP 120/60 Blood Pressure Location Lt brachial Position Sitting Pulse 90 Pulse Source Pulse Oximeter Pulse Oximetry (%) 94 Oxygen Delivery Method Room Air Intake Visit Reasons: COPD Line Server Required: No Allergies latex Allergy (Verified 11/10/23 11:00) rash HPI Comments Details: The patientis a 83 y/o woman with a history of COPD. Overall doing well on the Symbicort. She does take it daily. Has not had to use her rescue inhaler. She does complain of an intermittent cough, mild in severity. Also has dyspnea on exertion with activity. She also complains of back pain, moderate in severity. She recently was evaluated for hyponatremia. In view of the hyponatremia I will request a chest xray. 02/28/2022 this is a telehealth visit. The patient recently was hospitalized at [facility] after developing significant shortness breath hypoxia. She had called the office in the triage nurse recommended that she go to the ER. Therefore she went via ambulance. She was found to have bilateral pulmonary emboli. The patient was placed on Coumadin because Eliquis was too expensive and she is tolerating that well. She was subsequently discharged lower extremity Dopplers were not done and an echocardiogram was not done. After she was discharged she did follow-up with primary care doctor who did a lower extremity Doppler findings small clot. I explained to the patient that the Coumadin will help stop the propagation of clot but will take a couple months to completely resolve all the clots. The patient did not get an echocardiogram. She does have some dyspnea on exertion. She is no longer on oxygen only in the hospital. Will go and have her undergo an echocardiogram at this time. At this point appears that the pulmonary emboli is consistent with an unprovoked event to therefore she should continue the Coumadin for and indefinite amount of time. Patient understands that she is high risk for recurrence if she stops Coumadin at this time. 06/02/2022 the patient is here for a pulmonary follow-up visit. Overall the patient has been doing well. The patient continues on the Coumadin although the levels go up and down. She recently developed nasal congestion and postnasal drip and significant drainage. She also has an irritation the tip of her nose on her left nostril. She is not sure if she has any infection. Although I explained to her that taking oral antibiotics in view of the Coumadin specially with her elevated INR it may result in further elevations in the INR level. The secretions her nose appear to be thin. Will go ahead and start her on ipratropium nasal spray to try to Dr. Lassiter and also will place her on Bactroban to try to treat for a local infection. If the patient is no better she can always call and I can send her a course of doxycycline for sinusitis. She continues on the Coumadin for the unprovoked blood clots. She understands that with the unprovoked nature she should continue with the Coumadin lifelong. Patient does have a schedule procedure for a scan anomaly. I did explain to her that she can always stop the Coumadin but 4 days check her INR prior to the procedure and then have the procedure done safely and then go back on the Coumadin. 12/04/2022 the patient is here for a pulmonary follow-up visit. Overall the patient has been doing well. Recently had skin cancer surgery. Healing well. The patient still on Coumadin. She is had a hard time controlling does been fluctuating off. Therefore she was prescribed Eliquis. Get into a program to be able to get a reasonable schwartz. Otherwise she can not afford it. She has not started the Eliquis as of yet. I did encourage her to started also some more effective anticoagulation and less risk specially with her INR fluctuations the patient has been on anticoagulation since January. A good talk to her that once she completes the 1 year medardo afterwards we can consider a prophylactic dose of Eliquis 2.5 mg twice a day. However, and start the farm mg twice a day. The patient is having some dyspnea exertion. Moderate severity. Patient would benefit from pulmonary rehabilitation time. She does continue to use respiratory inhalers with partial improvement her symptoms. Will go ahead and request PFTs pulmonary rehab at [facility]. 06/03/2023 the patient is here for a pulmonary follow-up visit. Overall she has been doing well. She continues on the Coumadin. She opted not switching over to Eliquis. Although she still has fluctuation of her INR. The to feels more comfortable knowing her INR numbers however. we did review her CT scan that she had back in 2021 and she had the blood clots. personally by me. No evidence of any nodular densities to follow. Although at this point based on the fact that the patient has been on the anticoagulation she continues to have some dyspnea on exertion. Will go ahead and request a perfusion study to make sure that there is complete resolution of her clots. If indeed she has resolution of her clots. she continues use her inhalers with good effect. Does not use her rescue inhaler more than twice a week. Otherwise patient is without any other complaints. 11/10/2023 the patient is here for a pulmonary follow-up visit. Overall the patient has been doing well. Switched over from the AirDuo to the Wixela. She is currently 500/50 dose. She says his strong but she is doing okay with it. I did recommend she can continue for now but the next visit will talk about the increasing the dose to 250 mcg dose. She is agreeable to this. In addition to that switched over from the Coumadin to the Eliquis. She seems to be tolerating that. Although she is getting a rash and she was not know exactly what potential thing is causing it. She also has lower extremity edema which could also be a medication side effect. The patient will be seen an system technologist soon to try to evaluate the rash in the pleuritis. For now she has antihistamine therapy that she can use. The patient did have a chest x-ray which I personally reviewed from October demonstrating did persistent hiatal hernia issue. No other significant findings noted. The patient does not appear to be symptomatic due to the hiatal hernia. She also had lower extremity Dopplers demonstrating no evidence of any DVT in lower extremities. [facility] Medical History (Updated 09/24/23 @ 09:31 by LUCIO Stephens) Swelling of both lower extremities Pulmonary emboli (~01/2022) Skin cancer History of COVID-19 Essential hypertension Chronic allergic rhinitis Hyponatremia Asthma-COPD overlap syndrome Surgical History History of esophagogastroduodenoscopy (EGD) History of colonoscopy Family History Mother Breast cancer Father Prostate CA Stroke Social History Household Members: None Housing: Other (mobile home) Alcohol intake: current Alcohol intake frequency: 0-2 drinks per day Patient Tobacco Use Status: Former Tobacco user Tobacco use type: Cigarette Years Smoked: 10 years e-Cigarette/Vaping Use: Never Used Second Hand Smoke Exposure: No service: No Current occupational status: retired Current occupational exposures/hazards: No Cognitive needs: No Hearing needs: No Vision needs: No Review of Systems Const Denies chills, Denies fatigue, Denies fever(s), Denies headache(s) and Denies weakness ENT Denies dizziness and Denies headache(s) Card Denies chest pain, Denies lightheadedness, Denies dyspnea, Reports dyspnea on exertion and Denies other (Palpitations) Resp Denies cough, Denies dyspnea, Reports dyspnea on exertion, Denies wheezing and Denies other ( shortness of breath) Musc Denies numbness and Denies tingling Neuro Denies dizziness, Denies headache(s), Denies numbness, Denies tingling, Denies paresthesias and Denies weakness Psych Denies anxiety and Denies depression Endo Denies fatigue Aller/Immun Denies wheezing Physical Exam Vital Signs: Last Vital Signs Pulse 90 11/10/23 10:57 BP 120/60 11/10/23 10:57 Pulse Ox 94 11/10/23 10:57 Oxygen Delivery Method Room Air 11/10/23 10:57 BMI result Body Mass Index 31.4 Const General: alert Neck Neck: Yes normal visual inspection, Yes full ROM and Yes no lymphadenopathy Chest Chest palpation & inspection: normal inspection of the chest Resp Effort & Inspection: normal respiratory effort Auscultation: diminished lung sounds Cardio Rate: regular rate Rhythm: regular rhythm Heart sounds: S1 normal heart sound present and S2 normal heart sound present GI Palpation (GI): Soft to palpation and nontender Auscultation: normal bowel sounds Skin General skin exam: rashes and/or lesions noted Assessment & Plan Assessment & Plan (1) Asthma-COPD overlap syndrome: Code(s): J44.9 - Chronic obstructive pulmonary disease, unspecified Category: Medical (2) COPD (chronic obstructive pulmonary disease): Code(s): J44.9 - Chronic obstructive pulmonary disease, unspecified Category: Medical Qualifiers: COPD type: chronic bronchitis Chronic bronchitis type: simple Qualified Code(s): J41.0 - Simple chronic bronchitis (3) Pulmonary emboli: Onset Date: ~01/2022 Code(s): I26.99 - Other pulmonary embolism without acute cor pulmonale Category: Medical Qualifiers: Pulmonary embolism type: multiple subsegmental (without acute cor pulmonale) Qualified Code(s): I26.94 - Multiple subsegmental pulmonary emboli without acute cor pulmonale Plan continue Wixela 500/50, consider decreasing to 250/50 during the next visit PRABHU as needed continue Duoneb BID as needed Nasal rinsing OTC allergy therapy Pulmonary rehab at [facility] No evidence of chronic thrombo-embolic disease F/U 6 months Coding Level of Care Code Est Pt Level 4 (59453) Diagnoses Asthma-COPD overlap syndrome J44.9 Simple chronic bronchitis J41.0 COPD type: chronic bronchitis Chronic bronchitis type: simple Multiple subsegmental pulmonary emboli without acute cor pulmonale I26.94 Pulmonary embolism type: multiple subsegmental (without acute cor pulmonale) Time Spent (min) 16
== END 2023-11-10 11:12 | disposition home or self-care (01) ==
PROVIDERS: PCP Family Medicine; Visit Provider Hospitalist
DX: J41.0 Simple chronic bronchitis (principal); I26.94 Multiple subsegmental thrombotic pulmonary emboli without acute cor pulmonale
CPT/HCPCS: 99214

== ENCOUNTER → 2023-11-10 10:50 | Outpatient (BNVA) | payer MEDICARE, SELFPAY | PROVIDERS: PCP Family Medicine; Visit Provider Hospitalist | DX: J41.0 Simple chronic bronchitis (principal); I26.94 Multiple subsegmental thrombotic pulmonary emboli without acute cor pulmonale | CPT/HCPCS: 99212 ==

== ENCOUNTER → 2023-12-25 14:43 | Outpatient (REF) | payer MEDICARE, MEDICAID, SELFPAY ==
--- NOTE | 2023-12-25 14:45 | CA_ITS ---
Transthoracic Echocardiogram Patient (Last, First, Middle): Noris Hou, Gender: Female Date of : 1940 Age: 83 Procedure Date: 12/25/2023 Procedure Type: Transthoracic Echocardiogram Location: OP Height: 154.94 cm Weight: 75.3 kg BSA: 1.75 m2 Heart Rate: 94 bpm BP: 120 / 60 mmHg Paper Cone Maker: SB Referring MD: Africa Al PA-C Symptoms: M79.89 - Other specified soft tissue disorders Study Quality: Fair ECG Rhythm: Sinus Conclusions: - Normal left ventricular size, thickness, and systolic function. The visually estimated ejection fraction is between 55-60%. - Elevated filling pressures. - Normal right ventricular cavity size and systolic function. - The left atrium is normal in size. Extrinsic compression of LA by large hiatal hernia. Findings Procedure Information The quality of the study was technically difficult. The study quality is limited by lung artifact. Left Ventricle Normal left ventricular size, thickness, and systolic function. The visually estimated ejection fraction is between 55-60%. There is no evidence of regional wall motion abnormalities. Abnormal diastolic function is noted. Spectral Doppler is indicative of an impaired relaxation filling pattern. Elevated filling pressures. Right Ventricle Normal right ventricular cavity size and systolic function. Atria The left atrium is normal in size. Extrinsic compression of LA by large hiatal hernia. Aortic Valve Normal aortic valve structure and function. There is no aortic valve stenosis. There is no aortic valve regurgitation. Mitral Valve The mitral valve appears normal. There is no mitral valve regurgitation. There is no mitral valve stenosis. Pulmonic Valve The pulmonic valve is likely normal. Tricuspid Valve Normal tricuspid valve structure. There is no tricuspid valve regurgitation. Normal right atrial pressure. There is no evidence of pulmonary hypertension. Great Vessels All visible segments of the aorta are normal in size. The visualized portions of the pulmonary artery and branches are normal. Venous The inferior vena cava is normal in size and collapses greater than 50% with inspiration. Pericardium/Pleural Prominent epicardial adipose tissue noted. There is no evidence of pericardial effusion. Prior Study Comparison Changes noted compared to prior study dated: 03/10/2022. Elevated filling pressures. Extrinsic compression of LA by hiatal hernia. Measurements 2D Linear Measurements IVSd: 1.16 0.6-0.9/0.6-1.0 cm LVIDd: 3.30 3.9-5.3/4.2-5.9 cm LVIDd Index: 1.89 2.4-3.2/2.2-3.1 cm/m2 LVIDs: 1.96 2.0-3.6 cm LVPWd: 0.71 0.7-1.1 cm LA Diam: 2.70 2.7-3.8/3.0-4.0 cm LAIDs Index: 1.54 1.5-2.3 cm/m2 LV Mass: 105.92 67-162/88-224 g LV Mass Index: 60.53 43-95/49-115 g/m2 LVOT Diam: 1.90 3.0+(-)1.3 cm Mitral Valve MV Pk E: 0.93 MV PK A: 1.04 MV Decel Time: 127.00 E/A: 0.90 E'Lateral: 6.53 E'Medial: 3.37 E/E' Med: 27.40 E/E' Lat: 14.20 PHT: 37.00 MVA PHT: 5.95 Decel [place]: 7.30 Aortic Valve AoV Pk Leighton: 1.48 AoV Pk Grad: 9.00 JIGNESH: 2.15 LVOT LVOT Pk Leighton: 1.12 LVOT Mn Leighton: 0.80 LVOT VTI: 0.21 LVOT Pk Grad: 5.00 LVOT Mn Grad: 3.00 LVOT Diam: 1.90 LVOT Area: 2.84 Diastolic Function MV Pk E: 0.93 MV Pk A: 1.04 E/A: 0.90 E'Medial: 3.37 E/E' Med: 27.40 E' Laterial: 6.53 E/E' Lat: 14.20 Right Ventricle TAPSE (mm): 17.50 TVS' Leighton: 13.10 Tricuspid Valve TR Pk Leighton: 2.29 TR Pk Grad: 21.00 RA Press: 3.00 RVSP: 24.00 Great Vessels Aorta Sinus of Valsalva: 3.00 2.0-3.5 cm Ao Asc: 3.30 2.1-3.4 cm Pulmonary Valve PV Pk Leighton: 1.08 Peak PV Grad: 5.00 Updated in Other Vendor System with Status of Final Barry Vargas MD electronically signed on 12/27/2023 9:11:59 PM with status of Final
== END ==
LOC: HO.CARD 14:43
PROVIDERS: PCP Family Medicine; Visit Provider Physician Assistant
DX: R60.0 Localized edema (principal); I10 Essential (primary) hypertension
CPT/HCPCS: 93306

== ENCOUNTER → 2023-12-25 14:45 | Outpatient (BNV) | payer MEDICARE, MEDICAID, SELFPAY | PROVIDERS: PCP Family Medicine; Visit Provider Internal Medicine Cardiovascular Disease | DX: I51.89 Other ill-defined heart diseases (principal); K44.9 Diaphragmatic hernia without obstruction or gangrene | CPT/HCPCS: 93306 ==

== ENCOUNTER 2024-02-08 10:28 | Outpatient (AMB) | payer MEDICARE, SELFPAY ==
--- NOTE | 2024-02-08 11:06 | MHC.PC.OV ---
Vital Signs 02/08/24 11:11 Height 5 ft 1 in Weight 164 lb BMI 31.0 BP 110/58 L Blood Pressure Location Lt brachial Position Sitting Respiration 12 Pulse 94 Pulse Source Palpation Temp 98.4 F Temp Source Oral Intake Visit Reasons: htn, hyponatremia, leg swelling Intake Note: f/u for htn and leg swelling Allergies latex Allergy (Verified 02/08/24 11:09) rash Tobacco use date assessed: 09/24/23 Dental Screening Dental Screen Date: 07/16/23 HPI htn, hyponatremia, leg swelling HPI Details 83 y/o female presents to f/u hypertension, hyponatremia, leg swelling. BP today 110/58, 94p. She is on lisinopril 10mg daily, diltiazem 120mg daily. Reports ongoing lower extremity swelling. Notes hx of DVT. [facility] Medical History (Updated 09/24/23 @ 09:31 by LUCIO Stephens) Swelling of both lower extremities Pulmonary emboli (~01/2022) Skin cancer History of COVID-19 Essential hypertension Chronic allergic rhinitis Hyponatremia Asthma-COPD overlap syndrome Surgical History History of esophagogastroduodenoscopy (EGD) History of colonoscopy Family History Mother Breast cancer Father Prostate CA Stroke Social History Household Members: None Housing: Other (mobile home) Alcohol intake: current Alcohol intake frequency: 0-2 drinks per day Patient Tobacco Use Status: Former Tobacco user Tobacco use type: Cigarette Years Smoked: 10 years e-Cigarette/Vaping Use: Never Used Second Hand Smoke Exposure: No service: No Current occupational status: retired Current occupational exposures/hazards: No Cognitive needs: No Hearing needs: No Vision needs: No Questionnaire Thrive Questionnaire Date Thrive assessed: 10/29/23 I am a: Patient What is your living situation today?: I have a steady place to live Within the past 12 months, did the food you bought not last and you didn't have the money to get more?: Sometimes True Within the past 12 months, did you worry whether your food would run out before you got money to buy more?: Sometimes True Do you have trouble paying for medicines?: No Do you have trouble getting transportation to medical appointments?: No Do you have trouble paying your heating and electricity bill?: No Do you have trouble taking care of your child, family member or friend?: No Do you have trouble with day-to-day activities such as bathing, preparing meals, shopping, managing finances, etc.?: No Are you currently unemployed and looking for a job?: No Are you interested in more education?: No Please select the resources that you would like help with: None Currently or been in a relationship where the following occur: No concerns reported THRIVE Score: 2 ROEL-7 AMB Questionnaire ROEL-7 Date ROEL - 7 assessed: 04/16/23 Source: Developed by Drs. Harsha Hood, Diana Mendoza, Kristopher Villa and colleagues, with an educational johnie from [employer]. Review of Systems Const Denies chills, Denies fatigue, Denies fever(s), Denies headache(s) and Denies weakness ENT Denies dizziness and Denies headache(s) Card Denies dyspnea Resp Denies cough, Denies dyspnea, Denies wheezing and Denies other (shortness of breath) Musc Denies numbness and Denies tingling Skin/Breast Reports pruritus Neuro Denies dizziness, Denies headache(s), Denies numbness, Denies tingling and Denies weakness Psych Denies anxiety and Denies depression Endo Denies fatigue Aller/Immun Denies wheezing Physical exam (Primary Care) Vital Signs: Last Vital Signs Temp 98.4 F 02/08/24 11:11 Pulse 94 02/08/24 11:11 Resp 12 02/08/24 11:11 BP 110/58 L 02/08/24 11:11 BMI result Body Mass Index 31.0 Tobacco/Smoking Status: Tobacco use Status Tobacco use date assessed 09/24/23 02/08/24 11:07 Patient Tobacco Use Status Former Tobacco user 02/08/24 11:07 Tobacco use type Cigarette 02/08/24 11:07 e-Cigarette/Vaping Use Never Used 02/08/24 11:07 Thrive Assessment: Date of Thrive Assessment Date Thrive assessed 10/29/23 02/08/24 11:07 Currently or been in a relationship where the following occur: No concerns reported Const General: well developed; No acute distress Nutritional Appearance: well nourished Orientation/consciousness: patient oriented x3 HENKS Head: Yes normocephalic and Yes atraumatic Eyes General: appearance normal, both eyes and all related structures Pupils: Equal, round and reactive pupils present EOM: EOMs intact bilaterally Resp Effort & Inspection: normal respiratory effort Neuro General: patient oriented x3 and gait normal Cranial nerves: Yes Equal, round and reactive pupils present Extrem Other: 3+ lower extremity edema Psych Affect: normal affect Coding Level of Care Code Est Pt Level 4 (53629) Diagnoses Essential hypertension I10 Swelling of both lower extremities M79.89 History of DVT (deep vein thrombosis) Z86.718 Itching L29.9 Assessment & Plan Assessment & Plan (1) Essential hypertension: Code(s): I10 - Essential (primary) hypertension Category: Medical Plan: Blood?pressure?is?controlled.??Goal?is?less?than?140/90 Continue?current?medications (2) Swelling of both lower extremities: Code(s): M79.89 - Other specified soft tissue disorders Category: Medical Plan: Likely?multifactorial Patient?is?already?elevating?legs?when?able?to. She?is?using?compression?stockings Will?make?a?referral?to?vascular?surgery She?has?an?appointment?with?Nephrology?as?she?also?has?some?electrolyte?imbalances (3) History of DVT (deep vein thrombosis): Code(s): Z86.718 - Personal history of other venous thrombosis and embolism Category: Medical Plan: History?of?DVT?and?PE?and?patient?is?on?Eliquis?but?is?getting?a?rash?and?itching?arms. She?was?happier?with?warfarin?and?we?will?switch?her?back. Checking?INR?in?a?few?days?and?will?discontinue?Eliquis?when?she?is?therapeutic Referred?back?to?Coumadin?Clinic?for?further?monitoring?bone?follow-up?next?week?to?ensure?she?has?reached?therapeutic?range. (4) Itching: Code(s): L29.9 - Pruritus, unspecified Category: Medical Plan: As?above,?she?will?discontinue?Eliquis Orders: Orders AMB INR Today Z13.9 - Encounter for screening, unspecified, Z79.01 - senior living (current) use of anticoagulants Comprehensive Met. Panel Today M79.89 - Other specified soft tissue disorders AMB INR 3 Days Z13.9 - Encounter for screening, unspecified, Z79.01 - senior living (current) use of anticoagulants Microalbumin, Random (w Creat) Today I10 - Essential (primary) hypertension, M79.89 - Other specified soft tissue disorders UA and rflx microscopic Today M79.89 - Other specified soft tissue disorders, Z00.00 - Encounter for general adult medical examination without abnormal findings Referrals Anticoagulation Service/Clinic I26.94 - Multiple subsegmental thrombotic pulmonary emboli without acute cor pulmonale, Z79.01 - senior living (current) use of anticoagulants, Z86.718 - Personal history of other venous thrombosis and embolism Vascular Surgery Referral M79.89 - Other specified soft tissue disorders Medications: Refilled warfarin 2 mg PO DAILY 30 days 30 tabs 1RF Z79.01 - 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 (current) use of anticoagulants, Z86.718 - Personal history of other venous thrombosis and embolism
[2024-02-08 11:11] VITALS: BP 110/58; PULSE 94; RESP 12; TEMP 36.9; BMI 31.0
== END 2024-02-08 11:56 | disposition home or self-care (01) ==
PROVIDERS: PCP Family Medicine; Visit Provider Family Medicine
DX: I10 Essential (primary) hypertension (principal); M79.89 Other specified soft tissue disorders; Z86.718 Personal history of other venous thrombosis and embolism; L29.9 Pruritus, unspecified

== ENCOUNTER 2024-02-08 11:43 | Outpatient (REF) | payer MEDICARE, SELFPAY ==
--- OUTSIDE RECORDS SUMMARY | 2024-02-08 11:46 | XMS_ITS | Data Portability ---
Author Organization [facility], Main Office Address [address] [facility] [address] [place] [address] Care Team Providers Care Hot Metal Mixer Operator Name Role Phone ABDIEL ORTEGA Home Therapy Teacher GRACIELA MILLER Urologist [phone] ABDIEL LOZANO Agriculture Technician [phone] URBAN PRIDE Work Manager HUMBERTO SINGH Loading Inspector [phone] RICARDO HUGHES Chiropractor [facility] Physical Therapist DENIS MARCOS Primary Care Provider [phone] Assessment No assessment recorded. Plan of Treatment Reminders Order Date Submit Date Provider Last Modified By Organization Details Last Modified Time Details Appointments None recorded. Lab lipid panel, serum 2017 018 TIMOTHY [facility], [address] [place] [place], [address], 9 15:24:52 CMP, serum or plasma 2017 018 toni [facility], [address], [address], 9 11:56:02 magnesium , serum or plasma 2018 019 TIMOTHY [facility], [address] [place], [address], 9 15:24:53 CK (creatine kinase), total, serum 2018 019 TIMOTHY [facility], [address] [place], [address], 9 15:24:54 CBC w/ auto diff 2018 019 TIMOTHY [facility], [address] [place], [address], 9 13:55:52 CMP, serum or plasma 2018 019 TIMOTHY [facility], [address] [place], [address], 9 15:24:51 TSH, serum or plasma 2018 019 TIMOTHY [facility], [address] [place], [address], 9 15:37:23 HbA1c (hemoglob in A1c), blood 2018 019 [facility], [address] [place], [address], 0 09:38:13 BMP, serum or plasma 2018 019 [facility], [address] [place], [address], 0 09:38:13 lipid panel, serum 2018 [facility], [address] [place], [address], 0 09:38:13 Referral urologist referral - pt has not seen urology in 2 years or more and wants to have consultat ion w/ urologist rather than REMEDIATION PROJECT ENGINEER 2017 018 scott Crane MD, [address], [place], [address], 8 13:35:13 physical therapist referral - At risk for falling 2017 018 [facility], [address], [place], [address], 8 16:26:43 spine center referral - patient in 2017, MRI showed crowding L2 nerve root on the left, having worsenign sx of sciatic pain, low back pain, leg pains bilateral ly. 2018 019 isaías [facility], [address] [place] [address], [id number], 9 17:23:40 Procedures None recorded. Surgeries None recorded. Imaging XR, lumbar spine - chronic low back pain, worsening s/p fall in february [id number] [address]19 [facility], [address] [place] [address], [address], 9 10:29:46 XR, sacrum + coccyx - s/p fall in february, hx low back arthritis . pain worsening [address] [facility], [address] [place] [address], [address], 9 10:29:44 Medication Orders tamsulosi n 0.4 mg capsule 2017 018 [id number], [address] [place], [address], 8 13:01:14 clorazepa te dipotassi um 3.75 mg tablet 2017 018 INTERFACE [id number], [address] [place], [address], 8 12:05:21 clorazepa te dipotassi um 3.75 mg tablet 2017 018 INTERFACE [id number], [address] [place], [address], 8 11:18:58 Patient TargetsNo targets recorded. Patient Instructions Encounter Date Encounter Id Patient Instructions Last Modified By Organization Details Last Modified Time 11/13/2017 [id number] anxiety disorder: care instructions [email or web address] Not available 11/13/2017 11:18:44 call or return for worsening or concerns. [email or web address] Not available 11/13/2017 11:13:19 I have reviewed the note and agree with the assessment and plan of care. [email or web address] Not available 11/13/2017 12:41:01 12/18/2017 [id number] preventing falls: care instructions [email or web address] Not available 12/18/2017 13:20:45 call or return for any concerns. [email or web address] Not available 12/18/2017 13:20:38 Medications (OTC, herbal therapies, supplements) reviewed and reconciled with patient and or caregiver, including potential side effects, drug interactions, instructions, and the consequences of not taking medication. Reviewed potential barriers to medication adherence, such as side effects from medication or cost of medication. [email or web address] Not available 12/18/2017 13:20:44 06/11/2018 [id number] low back pain: exercises [email or web address] Not available 06/11/2018 13:24:20 call or return for worsening or concerns. [email or web address] Not available 06/11/2018 13:22:08 01/20/2019 [id number] preventing falls: care instructions [email or web address] Not available 01/20/2019 10:20:59 call or return for woraening or concerns. [email or web address] Not available 01/20/2019 10:20:56 Reviewed the risks and benefits of half-way opiate use, OUD discussed with the patient. Reviewed the risks and benefits of other non-opioid pain therapies. Reviewed caution with driving, fall risk, treatment for constipation. Patient verbalizes understanding of risk and benefits, and of OUD. [email or web address] Not available 01/20/2019 09:46:37 Reason for Referral Urologist Referral for Incom plete emptying of urinary bladder pt has not seen urology in 2 years or more and wants to have consultation w/ urologist rather than REMEDIATION PROJECT ENGINEER Referring Physician: Ricardo Dhillon, Internal Medicine, Encounter Date: 05/15/2017 Physical Therapist Referral for Adult health examination At risk for falling Referring Physician: Denis Marcos, Family Medicine, Encounter Date: 12/18/2017 Spine Center Referral for Lo w back pain patient in 2017, MRI showed crowding L2 nerve root on the left, having worsenign sx of sciatic pain, low back pain, leg pains bilaterally. Referring Physician: Denis Marcos, Family Medicine, Encounter Date: 06/11/2018 Results Created Date Observation Date Name Description Value Unit Range Abnormal Flag Note LastModifiedBy Organization Detail LastModifiedTime 09/12/19 18 09/11/2017 CBC w/ auto diff WBC 7.3 K/mm3 (4.0-1 1.0) Not Available [facility] [address] [place], [address], 09/11/2017 22:27:42 09/12/19 18 09/11/2017 CBC w/ auto diff RBC 4.68 M/mm3 (4.20- 5.40) Not Available [facility] [address] [place], [address], 09/11/2017 22:27:42 09/12/19 18 09/11/2017 CBC w/ auto diff HGB 14.7 gm/dL (11.7- 15.5) Not Available [facility] [address] [place], [address], 09/11/2017 22:27:42 09/12/19 18 09/11/2017 CBC w/ auto diff HCT 43.2 % (35.7- 45.8) Not Available [facility] [address] [place], [address], 09/11/2017 22:27:42 09/12/19 18 09/11/2017 CBC w/ auto diff MCV 92.3 fL (80.0- 100.0) Not Available [facility] [address] [place], [address], 09/11/2017 22:27:42 09/12/19 18 09/11/2017 CBC w/ auto diff MCH 31.4 pg (27.0- 34.0) Not Available [facility] [address] [place], [address], 09/11/2017 22:27:42 09/12/19 18 09/11/2017 CBC w/ auto diff MCHC 34.0 g/dL (33.0- 37.0) Not Available [facility] [address] [place], [address], 09/11/2017 22:27:42 09/12/19 18 09/11/2017 CBC w/ auto diff plt 230 K/mm3 (150-4 60) Not Available [facility] [address] [place], [address], 09/11/2017 22:27:42 09/12/19 18 09/11/2017 CBC w/ auto diff RDW-SD 45.7 fL (<47.0 ) Not Available [facility] [address] [place], [address], 09/11/2017 22:27:42 09/12/19 18 09/11/2017 CBC w/ auto diff MPV 9.5 fL (9.4-1 2.4) Not Available [facility] [address] [place], [address], 09/11/2017 22:27:42 09/12/19 18 09/11/2017 CBC w/ auto diff automated NRBC 0.0 #/100 _WBC' s Not Available [facility] [address] [place], [address], 09/11/2017 22:27:42 09/12/19 18 09/11/2017 CBC w/ auto diff abs. NRBC 0.0 K/mm3 Not Available [facility] [address] [place], [address], 09/11/2017 22:27:42 09/12/19 18 09/11/2017 CBC w/ auto diff neut # 4.7 K/mm3 (1.3-7 .0) Not Available [facility] [address] [place], [address], 09/11/2017 22:27:42 09/12/19 18 09/11/2017 CBC w/ auto diff lymph # 1.4 K/mm3 (0.8-3 .1) Not Available [facility] [address] [place], [address], 09/11/2017 22:27:42 09/12/19 18 09/11/2017 CBC w/ auto diff mono# 0.9 K/mm3 (0.4-0 .9) Not Available [facility] [address] [place], [address], 09/11/2017 22:27:42 09/12/19 18 09/11/2017 CBC w/ auto diff eo # 0.2 K/mm3 (0.0-0 .4) Not Available [facility] [address] [place], [address], 09/11/2017 22:27:42 09/12/19 18 09/11/2017 CBC w/ auto diff baso # 0.1 K/mm3 (0.0-0 .1) Not Available [facility] [address] [place], [address], 09/11/2017 22:27:42 09/12/19 18 09/11/2017 CBC w/ auto diff abs. imm gran 0.0 K/mm3 Not Available [facility] [address] [place], [address], 09/11/2017 22:27:42 09/12/19 18 09/11/2017 CBC w/ auto diff neut 64.7 % (44-76 ) Not Available [facility] [address] [place], [address], 09/11/2017 22:27:42 09/12/19 18 09/11/2017 CBC w/ auto diff lymph 18.7 % (15-43 ) Not Available [facility] [address] [place], [address], 09/11/2017 22:27:42 09/12/19 18 09/11/2017 CBC w/ auto diff monocyte 12.6 % (4.5-1 0.5) high Not Available [facility] [address], [address], 09/11/2017 22:27:42 09/12/19 18 09/11/2017 CBC w/ auto diff eo 2.5 % (0-6) Not Available [facility] [address] [place], [address], 09/11/2017 22:27:42 09/12/19 18 09/11/2017 CBC w/ auto diff baso 1.2 % (0-2) Not Available [facility] [address] [place], [address], 09/11/2017 22:27:42 09/12/19 18 09/11/2017 CBC w/ auto diff imm gran 0.3 % (0.0-0 .6) Not Available [facility] [address] [place], [address], 09/11/2017 22:27:42 09/12/19 18 09/11/2017 CMP, serum or plasm a glucose 104 mg/dL (70-99 ) high Not Available [facility] [address] [place], [address], 09/11/2017 23:29:56 09/12/19 18 09/11/2017 CMP, serum or plasm a BUN 11 mg/dL (8-23) Not Available [facility] [address] [place], [address], 09/11/2017 23:29:56 09/12/19 18 09/11/2017 CMP, serum or plasm a creatinine 0.8 mg/dL (0.5-1 .0) Not Available [facility] [address] [place], [address], 09/11/2017 23:29:56 09/12/19 18 09/11/2017 CMP, serum or plasm a sodium 134 mmol/ L (133-1 45) Not Available [facility] [address] [place], [address], 09/11/2017 23:29:56 09/12/19 18 09/11/2017 CMP, serum or plasm a potassium 4.6 mmol/ L (3.6-5 .2) Not Available [facility] [address] [place], [address], 09/11/2017 23:29:56 09/12/19 18 09/11/2017 CMP, serum or plasm a chloride 96 mmol/ L (98-10 7) low Not Available [facility] [address], [address], 09/11/2017 23:29:56 09/12/19 18 09/11/2017 CMP, serum or plasm a bicarbonate 23 mmol/ L (22-29 ) Not Available [facility] [address], [address], 09/11/2017 23:29:56 09/12/19 18 09/11/2017 CMP, serum or plasm a anion gap 15 (4-17) Not Available [facility] [address], [address], 09/11/2017 23:29:56 09/12/19 18 09/11/2017 CMP, serum or plasm a albumin 4.1 gm/dL (3.4-4 .8) Not Available [facility] [address], [address], 09/11/2017 23:29:56 09/12/19 18 09/11/2017 CMP, serum or plasm a calcium 9.3 mg/dL (8.6-1 0.5) Not Available [facility] [address], [address], 09/11/2017 23:29:56 09/12/1909/11/2017 CMP, serum or plasm a bilirubin,to della 0.4 mg/dL (0-1.2 ) Not Available [facility] [address], [address], 09/11/2017 23:29:56 09/12/19 18 09/11/2017 CMP, serum or plasm a total protein 6.6 gm/dL (6.2-8 .2) Not Available [facility] [address] [place], [address], 09/11/2017 23:29:56 09/12/19 18 09/11/2017 CMP, serum or plasm a Ag ratio 1.6 Not Available [facility] [address] [place], [address], 09/11/2017 23:29:56 09/12/19 18 09/11/2017 CMP, serum or plasm a AST 24 U/L (0-32) Not Available [facility] [address] [place], [address], 09/11/2017 23:29:56 09/12/19 18 09/11/2017 CMP, serum or plasm a alk phos 104 U/L (35-10 4) Not Available [facility] [address] [place], [address], 09/11/2017 23:29:56 09/12/19 18 09/11/2017 CMP, serum or plasm a ALT 22 U/L (0-33) Not Available [facility] [address] [place], [address], 09/11/2017 23:29:56 09/12/19 18 09/11/2017 CMP, serum or plasm a est GFR non 72 mL/mi n/1.7 3_M2 Creat inine based estim ated glome rular filtr ation rate (eGFR ) is calcu lated using the Chron ic Kidne y Disea se Epide miolo gy Colla borat ion (CKD- EPI). The CKD-E PI creat inine equat ion has not been valid ated in child moira (<18 years ), pregn ant women or in some racia l or ethni c subgr oups other than Cauca sians and Afric an Ameri cans. Not Available [facility] [address] [place], [address], 09/11/2017 23:29:56 09/12/19 18 09/11/2017 CMP, serum or plasm a est GFR 83 mL/mi n/1.7 3_M2 Creat inine based estim ated glome rular filtr ation rate (eGFR ) is calcu lated using the Chron ic Kidne y Disea se Epide miolo gy Colla borat ion (CKD- EPI). The CKD-E PI creat inine equat ion has not been valid ated in child moira (<18 years ), pregn ant women or in some racia l or ethni c subgr oups other than Cauca sians and Afric an Ameri cans. Not Available [facility] [address] [place], [address], 09/11/2017 23:29:56 09/12/19 18 09/11/2017 magne sium, serum or plasm a magnesium 1.6 mEq/L (1.3-1 .9) Not Available [facility] [address] [place], [address], 09/11/2017 23:29:57 06/15/1906/14/2018 CBC w/ auto diff WBC 7.5 K/mm3 (4.0-1 1.0) Not Available [facility] [address] [place], [address], 06/14/2018 13:55:52 06/15/1906/14/2018 CBC w/ auto diff RBC 4.66 M/mm3 (4.20- 5.40) Not Available [facility] [address] [place], [address], 06/14/2018 13:55:52 06/15/1906/14/2018 CBC w/ auto diff HGB 15.3 gm/dL (11.7- 15.5) Not Available [facility] [address] [place], [address], 06/14/2018 13:55:52 06/15/1906/14/2018 CBC w/ auto diff HCT 43.9 % (35.7- 45.8) Not Available [facility] [address] [place], [address], 06/14/2018 13:55:52 06/15/1906/14/2018 CBC w/ auto diff MCV 94.2 fL (80.0- 100.0) Not Available [facility] [address] [place], [address], 06/14/2018 13:55:52 06/15/1906/14/2018 CBC w/ auto diff MCH 32.8 pg (27.0- 34.0) Not Available [facility] [address] [place], [address], 06/14/2018 13:55:52 06/15/1906/14/2018 CBC w/ auto diff MCHC 34.9 g/dL (33.0- 37.0) Not Available [facility] [address] [place], [address], 06/14/2018 13:55:52 06/15/1906/14/2018 CBC w/ auto diff plt 256 K/mm3 (150-4 60) Not Available [facility] [address] [place], [address], 06/14/2018 13:55:52 06/15/1906/14/2018 CBC w/ auto diff RDW-SD 43.2 fL (<47.0 ) Not Available [facility] [address] [place], [address], 06/14/2018 13:55:52 06/15/1906/14/2018 CBC w/ auto diff MPV 9.9 fL (9.4-1 2.4) Not Available [facility] [address] [place], [address], 06/14/2018 13:55:52 06/15/1906/14/2018 CBC w/ auto diff automated NRBC 0.0 #/100 _WBC' s Not Available [facility] [address] [place], [address], 06/14/2018 13:55:52 06/15/1906/14/2018 CBC w/ auto diff abs. NRBC 0.0 K/mm3 Not Available [facility] [address] [place], [address], 06/14/2018 13:55:52 06/15/1906/14/2018 CMP, serum or plasm a glucose 125 mg/dL (70-99 ) high Not Available [facility] [address] [place], [address], 06/14/2018 15:24:51 06/15/1906/14/2018 CMP, serum or plasm a BUN 8 mg/dL (8-23) Not Available [facility] [address] [place], [address], 06/14/2018 15:24:51 06/15/1906/14/2018 CMP, serum or plasm a creatinine 0.8 mg/dL (0.5-1 .0) Not Available [facility] [address] [place], [address], 06/14/2018 15:24:51 06/15/1906/14/2018 CMP, serum or plasm a sodium 134 mmol/ L (133-1 45) Not Available [facility] [address] [place], [address], 06/14/2018 15:24:51 06/15/1906/14/2018 CMP, serum or plasm a potassium 4.6 mmol/ L (3.6-5 .2) Not Available [facility] [address] [place], [address], 06/14/2018 15:24:51 06/15/1906/14/2018 CMP, serum or plasm a chloride 98 mmol/ L (98-10 7) Not Available [facility] [address] [place], [address], 06/14/2018 15:24:51 06/15/1906/14/2018 CMP, serum or plasm a bicarbonate 23 mmol/ L (22-29 ) Not Available [facility] [address], [address], 06/14/2018 15:24:51 06/15/19 19 06/14/2018 CMP, serum or plasm a anion gap 13 (4-17) Not Available [facility] [address], [address], 06/14/2018 15:24:51 06/15/19 19 06/14/2018 CMP, serum or plasm a albumin 4.5 gm/dL (3.4-4 .8) Not Available [facility] [address] [place], [address], 06/14/2018 15:24:51 06/15/19 19 06/14/2018 CMP, serum or plasm a calcium 9.5 mg/dL (8.6-1 0.5) Not Available [facility] [address] [place], [address], 06/14/2018 15:24:51 06/15/19 19 06/14/2018 CMP, serum or plasm a bilirubin,to della 0.5 mg/dL (0-1.2 ) Not Available [facility] [address] [place], [address], 06/14/2018 15:24:51 06/15/19 19 06/14/2018 CMP, serum or plasm a total protein 7.0 gm/dL (6.2-8 .2) Not Available [facility] [address], [address], 06/14/2018 15:24:51 06/15/19 19 06/14/2018 CMP, serum or plasm a Ag ratio 1.8 Not Available [facility] [address] [place], [address], 06/14/2018 15:24:51 06/15/19 19 06/14/2018 CMP, serum or plasm a AST 28 U/L (0-32) Not Available [facility] [address] [place], [address], 06/14/2018 15:24:51 06/15/19 19 06/14/2018 CMP, serum or plasm a alk phos 105 U/L (35-10 4) high Not Available [facility] [address] [place], [address], 06/14/2018 15:24:51 06/15/19 19 06/14/2018 CMP, serum or plasm a ALT 27 U/L (0-33) Not Available [facility] [address] [place], [address], 06/14/2018 15:24:51 06/15/19 19 06/14/2018 CMP, serum or plasm a est GFR non 72 mL/mi n/1.7 3_M2 Creat inine based estim ated glome rular filtr ation rate (eGFR ) is calcu lated using the Chron ic Kidne y Disea se Epide miolo gy Colla borat ion (CKD- EPI). The CKD-E PI creat inine equat ion has not been valid ated in child moira (<18 years ), pregn ant women or in some racia l or ethni c subgr oups other than Cauca sians and Afric an Ameri cans. Not Available [facility] [address] [place], [address], 06/14/2018 15:24:51 06/15/19 19 06/14/2018 CMP, serum or plasm a est GFR 83 mL/mi n/1.7 3_M2 Creat inine based estim ated glome rular filtr ation rate (eGFR ) is calcu lated using the Chron ic Kidne y Disea se Epide miolo gy Colla borat ion (CKD- EPI). The CKD-E PI creat inine equat ion has not been valid ated in child moira (<18 years ), pregn ant women or in some racia l or ethni c subgr oups other than Cauca sians and Afric an Ameri cans. Not Available [facility] [address] [place], [address], 06/14/2018 15:24:51 06/15/1906/14/2018 lipid panel , serum cholesterol, total 192 mg/dL (<200) Not Available [facility] [address] [place], [address], 06/14/2018 15:24:52 06/15/1906/14/2018 lipid panel , serum triglyceride 190 mg/dL (<150) high Not Available [facility] [address] [place], [address], 06/14/2018 15:24:52 06/15/1906/14/2018 lipid panel , serum HDL chol 59 mg/dL (>39) Not Available [facility] [address] [place], [address], 06/14/2018 15:24:52 06/15/1906/14/2018 lipid panel , serum LDL cholesterol, calculated 95 mg/dL (0-130 ) Not Available [facility] [address] [place], [address], 06/14/2018 15:24:52 06/15/1906/14/2018 lipid panel , serum non HDL cholesterol (calc) 133 mg/dL (<160) Not Available [facility] [address] [place], [address], 06/14/2018 15:24:52 06/15/1906/14/2018 magne sium, serum or plasm a magnesium 1.8 mg/dL (1.6-2 .3) Magne sium value s are curre ntly being repor gifty in mg/dL . Novem 2017, Magne sium repor ting unit has been rose ed from mEq/L to mg/dL . Conve rsion facto r: mEq/L x 1.22 equal s mg/dL . Refer ence Range (new unit) : 1.6-2 .3 mg/dL Refer ence Range (old unit) : 1.3-1 .9 mEq/L Not Available [facility] [address] [place], [address], 06/14/2018 15:24:53 06/15/19 19 06/14/2018 CK (raymond lincoln), total , serum CK,total only 75 U/L (0-190 ) Not Available [facility] [address] [place], [address], 06/14/2018 15:24:54 06/15/19 19 06/14/2018 TSH, serum or plasm a TSH 0.89 mIU/m L (0.40- 4.00) Not Available [facility] [address] [place], [address], 06/14/2018 15:37:23 05/16/19 18 elect rocar diogr am No observ ation record ed. [email or web address] Not Available 07/2017 12:36:53 06/15/19 19 06/14/2018 XR, sacru m + coccy x, 2 or more view Lumbar Spine 2 or 3 Views, Sacrum and Coccyx Min 2 Views INDICA TION/C LINICA L QUESTI ON: LOW BACK PAIN COMPAR FRANCY: Images of the lumbar spine from a CT abdome n and pelvis of 018 FINDIN GS: No bone lesion s or fractu res. Mild multif ocal degene rative disc endpla te spurri ng and disc space narrow ing. No spondy lolist hesis. Bilate ral facet joint osteoa rthrit is throug hout the lower lumbar spine. Mild degene rative change s of the sacroi liac joints , left worse than right. There are athero sclero tic vascul ar calcif icatio ns. IMPRES JULISA: Degene rative change s but no eviden ce of an acute proces s. WSN: [id number] Dictat ed By: Delonte Barrios MD Dictat ed Date/T erlinda: 10:26 a Review ed By: Delonte Barrios MD Signed By: Delonte Barrios MD Signed Date/T erlinda: 10:26 am Transc ribed By: CSB Transc ribed Date/T erlinda: 10:24 am Patien t Class: Outpat [facility] (Outpt Imaging) [address] [place], [address], 06/15/2018 15:07:23 06/15/19 19 06/14/2018 XR, lumba r spine Lumbar Spine 2 or 3 Views, Sacrum and Coccyx Min 2 Views INDICA TION/C LINICA L QUESTI ON: LOW BACK PAIN COMPAR FRANCY: Images of the lumbar spine from a CT abdome n and pelvis of 018 FINDIN GS: No bone lesion s or fractu res. Mild multif ocal degene rative disc endpla te spurri ng and disc space narrow ing. No spondy lolist hesis. Bilate ral facet joint osteoa rthrit is throug hout the lower lumbar spine. Mild degene rative change s of the sacroi liac joints , left worse than right. There are athero sclero tic vascul ar calcif icatio ns. IMPRES JULISA: Degene rative change s but no eviden ce of an acute proces s. WSN: [id number] Dictat ed By: Delonte Barrios MD Dictat ed Date/T erlinda: 10:26 a Review ed By: Delonte Barrios MD Signed By: Delonte Barrios MD Signed Date/T erlinda: 10:26 am Transc ribed By: PASTORA Transc ribed Date/T erlinda: 10:24 am Patien t Class: Outpat ient [facility] (Outpt Imaging) [address] [place], [address], 06/15/2018 15:07:23 Result Notes None recorded. Problems Name Problem SNOMED Code Status Onset Date Resolution Date Notes Provider Name and Address Organization Details Recorded Time Anemia due to chronic blood loss 784329526 Completed 201108/23/2013 RECORDED 10/31/19 12 2:42PM BY NICKY WOODS ON/ADDEN TORIE rosario [facility] 6 11:38:21 Anxiety state [id number] Active 2012 Becky Norton MA null, [facility] 7 17:00:55 Tobacco user [id number] Completed 201208/23/2013 RECORDED 01/28/20 13 1:17PM BY ALEXANDRE AGUILAR MA, ANNOTATI ON/ADDEN DUM Becky Norton MA null, [facility] 7 17:00:35 History of clinical finding in subject [id number] Completed 201209/17/2016 RECORDED 01/28/20 13 1:17PM BY ALEXANDRE AGUILAR MA, ANNOTATI ON/ADDEN DUM Becky Norton MA null, [facility] 7 17:01:11 Asthma [id number] Active 2012 Becky Norton MA null, [facility] 7 17:00:52 Screenin g for malignan t neoplasm of breast Completed 201410/31/2016 Dr. Susy Ortega, negative Becky Norton MA null, [facility] 7 13:35:13 Screenin g for malignan t neoplasm of breast Completed 201108/23/2013 RECORDED 10/31/19 12 2:41PM BY JEREL WOODSATI ON/ADDEN DUM Becky Norton MA null, [facility] 7 13:35:13 Chest pain [id number] Completed 201108/23/2013 RECORDED 10/31/19 12 2:41PM BY JEREL WOODSATI ON/ADDEN DUM Michelle Degutis null, [facility] 6 11:38:22 Screenin g for malignan t neoplasm of colon Completed 201208/23/2013 RECORDED 04/30/19 13 2:37PM BY TEA HANDY MA, ANNOTATI ON/ADDEN DUM Michelle Degutis null, [facility] 6 11:38:22 Divertic ular disease of colon [id number] Completed 201108/23/2013 STORY: PT WAS SEEN IN OUR OFFICE 11/30/09 FOR RECTAL BLEEDING AND WAS REFERRED TO GI FOR AN EVALUATI ON. THAT EVENING EVERY TIME THE PT ATE SOMETHIN G SHE WOULD BE GOING TO THE BATHROOM TO HAVE A BM THAT WAS FILLED WITH BLOOD. AFTER A FEW TIMES THE PT TOOK HERSELF TO [facility] TO BE EVALUATE D. THE ONLY SX THAT THE PT FELT WAS BLOATING AND CRAMPING EVERYTIM E SHE ATE. PT HAD TO UNDERGO A COLONOSC OPY WITCH SHOWED THAT THE PT HAD BLEEDING COMING FROM THE [place]END[place],DESCEN DING, AND TRANSVER SE COLON. PT WAS LATER TRANSFER RED TO [facility] TO BE WATCHED CLOSELY. PT WAS THEN PLACED ON A LIQUID DIET UNTIL THE TIME WHERE SHE COULD TOLERATE SOLID FOOD WITH OUT PASSING A BM THAT WAS BLOODY. MEDICATI ON HAS BEEN RECONSIL ED WITH THE PT AND SHE WILL F/U WITH MGD 12/21/09 .; RECORDED 10/31/19 12 2:41PM BY NICKY WOODS ON/ADDEN DUM [place] Aziza rosario [facility] 6 11:38:21 Hemorrha ge of colon [id number] Completed 201108/23/2013 STORY: STABLE/ STILL ANEMIC; RECORDED 10/31/19 12 2:41PM BY NICKY WOODS ON/ADDEN DUM Michelle Aziza rosario [facility] 6 11:38:22 Divertic ulitis of colon [id number] Active 2011 Becky rosario [facility] 7 17:00:37 Dysuria [id number] Completed 201108/23/2013 IMPRESSI ON: 3+ LEUKOCYT ES ON UA TODAY, COMPLETE D BACTRIM 2 DAYS AGO, START CIPRO AND SEND CULTURE; RECORDED 10/31/19 12 2:41PM BY NICKY WOODS ON/ADDEN DUM Becky rosario [facility] 7 17:01:13 Gastroes ophageal reflux disease [id number] Active 2012 Becky rosario, [facility] 7 17:00:59 [facility] hyperten julisa 41108729 Active 2012 Becky rosario, [facility] 7 17:01:17 [facility]ia l hyperten julisa [id number] Completed 201108/23/2013 RECORDED 10/31/19 12 2:41PM BY JEREL WOODSATI ON/ADDEN DUM Becky rosario, [facility] 7 17:01:17 External hemorrho ids [id number] Active 2012 Becky rosario, [facility] 7 17:01:03 Influenz a vaccine needed [id number] 06 Completed 201208/23/2013 RECORDED 04/30/19 13 2:37PM BY TEA HANDY MA, ANNOTATI ON/ADDEN DUM Michelle Aziza [facility] 6 11:38:22 Follow-u p encounte r Completed 201208/23/2013 RECORDED 04/30/19 13 2:37PM BY TEA HANDY MA, ANNOTATI ON/ADD[facility] 6 11:38:22 Tobacco user [id number] Active 2012 Becky rosario [facility] 7 17:00:35 Adult health examinat ion Completed 201209/17/2016 STORY: COLONOSC OPY DUE 2016/ SS/TUBUL AR ADENOMA; RECORDED 01/28/20 13 1:58PM BY RICARDO COLE MD, OFFICE VISIT Becky rosairo [facility] 7 17:01:05 Adult health examinat ion Completed 201208/23/2013 RECORDED 04/30/19 13 2:37PM BY TEA HANDY MA, ANNOTATI ON/ADDEN DUM Becky rosario [facility] 7 17:01:05 Hearing loss 97901302 Active 2012 Becky rosario [facility] 7 17:00:40 History of Malignan t melanoma 378460772 Active 2013 Becky rosario [facility] 7 17:00:45 Hypo-osm olality and or hyponatr emia 521862372 Completed 201108/23/2013 RECORDED 10/31/19 12 2:41PM BY VIOLA MOLINA I ANNOTATI ON/ADDEN DUM [facility] 6 11:38:21 Impacted cerumen [id number] Completed 201208/23/2013 RECORDED 01/28/20 13 1:17PM BY ALEXANDRE AGUILAR MA, ANNOTATI ON/ADDEN DUM Becky rosario [facility] 7 17:00:46 Irritabl e bowel syndrome 52685583 Active 2012 Becky rosario [facility] 7 17:00:31 Renewal of prescrip tion Completed 201208/23/2013 RECORDED 04/30/19 13 2:37PM BY TEA HANDY MA, ANNOTATI ON/ADDEN DUM Michelle Ervin [facility] 6 11:38:22 Malignan t melanoma of skin 53235285 Active 2013 Becky rosario [facility] 7 17:01:28 Active or passive immuniza tion Completed 200908/23/2013 RECORDED 03/01/19 10 9:56AM BY PILLO Masters NP, OFFICE VISIT Michelle Antoniousha abraham [facility] 6 11:38:22 Examinat ion for suspecte d mental disorder Completed 201108/23/2013 RECORDED 10/31/19 12 2:41PM BY NICKY WOODS ON/[facility] Degutis null, [facility] 6 11:38:22 Pre-surg girish evaluati on Completed 201208/23/2013 IMPRESSI ON: PT IS MEDICALL Y ABLE TO UNDERGO SURGERY, NO ACTIVE ISSUES, IS ABLE TO LAY FLAT AND STILL, EKG NL AND WILL GET LABS; RECORDED 01/28/20 13 1:17PM BY ALEXANDRE AGUILAR MA, ANNOTATI ON/[facility] Degutis null, [facility] 6 11:38:22 Tachycar wesley [id number] Completed 201108/23/2013 RECORDED 10/31/19 12 2:42PM BY NICKY WOODS ON/[facility] Degutis null, [facility] 6 11:38:22 Retentio n of urine [id number] Completed 201208/23/2013 RECORDED 04/30/19 13 2:37PM BY TEA HANDY MA, ANNOTATI ON/[facility] Degutis null, [facility] 6 11:38:22 Urinary tract infectio us disease 08203096 Active 2013 Becky rosario, [facility] 7 17:01:20 Vaginiti s and vulvovag initis Completed 201108/23/2013 IMPRESSI ON: VAGINAL ITCHING AFTER COMPLETI NG ANTIBIOT ICS; RECORDED 10/31/19 12 2:42PM BY NICKY WOODS ON/[facility] Degutis null, [facility] 6 11:38:22 Impacted cerumen [id number] Completed 09/17/2016 Becky rosario, [facility] 7 17:00:46 Hyponatr emia 23769692 Completed 09/04/2017 Dilshad Hall MD [address] [address], [facility] [place], [id number] [facility] 8 06:00:03 Anemia due to chronic blood loss 581161397 Completed 201109/15/2013 RECORDED 10/31/19 12 2:42PM BY VIOLA MOLINA I ANNOTATI ON/ADDEN DUM Michelle Degutis null, [facility] 6 11:38:21 Tobacco user [id number] Completed 201209/15/2013 RECORDED 01/28/20 13 1:17PM BY ALEXANDRE AGUILAR MA, ANNOTATI ON/ADDEN DUM Becky Norton MA null, [facility] 7 17:00:35 Chest pain [id number] Completed 201109/15/2013 RECORDED 10/31/19 12 2:41PM BY VIOLA MOLINA I ANNOTATI ON/ADDEN DUM Michelle Degutis null, [facility] 6 11:38:22 Screenin g for malignan t neoplasm of colon Completed 201209/15/2013 RECORDED 04/30/19 13 2:37PM BY TEA HANDY MA, ANNOTATI ON/ADDEN DUM Michelle Degutis null, [facility] 6 11:38:22 Divertic ular disease of colon 990348680 Completed 201109/15/2013 STORY: PT WAS SEEN IN OUR OFFICE 11/30/09 FOR RECTAL BLEEDING AND WAS REFERRED TO GI FOR AN EVALUATI ON. THAT EVENING EVERY TIME THE PT ATE SOMETHIN G SHE WOULD BE GOING TO THE BATHROOM TO HAVE A BM THAT WAS FILLED WITH BLOOD. AFTER A FEW TIMES THE PT TOOK HERSELF TO [facility] TO BE EVALUATE D. THE ONLY SX THAT THE PT FELT WAS BLOATING AND CRAMPING EVERYTIM E SHE ATE. PT HAD TO UNDERGO A COLONOSC OPY PATITO SHOWED THAT THE PT HAD BLEEDING COMING FROM THE [place],DESCEN DING, AND TRANSVER SE COLON. PT WAS LATER TRANSFER RED TO [facility] TO BE WATCHED CLOSELY. PT WAS THEN PLACED ON A LIQUID DIET UNTIL THE TIME WHERE SHE COULD TOLERATE SOLID FOOD WITH OUT PASSING A BM THAT WAS BLOODY. MEDICATI ON HAS BEEN RECONSIL ED WITH THE PT AND SHE WILL F/U WITH MGD 12/21/09 .; RECORDED 10/31/19 12 2:41PM BY NICKY WOODS ON/ADDEN DUM Michelle Palmaedouard rosario [facility] 6 11:38:21 Hemorrha ge of colon [id number] Completed 201109/15/2013 STORY: STABLE/ STILL ANEMIC; RECORDED 10/31/19 12 2:41PM BY NICKY WOODS ON/ADDEN DUM Michelle Antonioutis null, [facility] 6 11:38:22 Dysuria 25806280 Completed 201109/15/2013 IMPRESSI ON: 3+ LEUKOCYT ES ON UA TODAY, COMPLETE D BACTRIM 2 DAYS AGO, START CIPRO AND SEND CULTURE; RECORDED 10/31/19 12 2:41PM BY NICKY WOODS ON/ADDEN DUM Becky Norton [place] abraham [facility] 7 17:01:13 Influenz a vaccine needed [id number] 06 Completed 201209/15/2013 RECORDED 04/30/19 13 2:37PM BY TEA HANDY MA, ANNOTATI ON/ADDEN DUM Michelle Ervin abraham, [facility] 6 11:38:22 Follow-u p encounte r Completed 201209/15/2013 RECORDED 04/30/19 13 2:37PM BY TEA HANDY MA, ANNOTATI ON/ADDEN DUM Michelle Antoniousha rosario, [facility] 6 11:38:22 Hypo-osm olality and or hyponatr emia 026119556 Completed 201109/15/2013 RECORDED 10/31/19 12 2:41PM BY NICKY WOODS ON/ADDEN DUM Michelle Antonioutis null, [facility] 6 11:38:21 Impacted cerumen [id number] Completed 201209/15/2013 RECORDED 01/28/20 13 1:17PM BY ALEXANDRE AGUILAR MA, ANNOTATI ON/ADDEN DUM Becky Norton MA null, [facility] 7 17:00:46 Renewal of prescrip tion Completed 201209/15/2013 RECORDED 04/30/19 13 2:37PM BY TEA HANDY MA, JERELATI ON/ADDEN DUM Michelle Degutis null, [facility] 6 11:38:22 Active or passive immuniza tion Completed 200909/15/2013 RECORDED 03/01/19 10 9:56AM BY PILLO Masters NP, OFFICE VISIT Michelle Pacoutis null, [facility] 6 11:38:22 Examinat ion for suspecte d mental disorder Completed 201109/15/2013 RECORDED 10/31/19 12 2:41PM BY NICKY WOODS ON/[facility] DUM Michelle Degutis null, [facility] 6 11:38:22 Pre-surg girish evaluati on Completed 201209/15/2013 IMPRESSI ON: PT IS MEDICALL Y ABLE TO UNDERGO SURGERY, NO ACTIVE ISSUES, IS ABLE TO LAY FLAT AND STILL, EKG NL AND WILL GET LABS; RECORDED 01/28/20 13 1:17PM BY ALEXANDRE AGUILAR MA, JERELATI ON/[facility] DUM Mcihelle Degutis null, [facility] 6 11:38:22 Tachycar wesley [id number] Completed 201109/15/2013 RECORDED 10/31/19 12 2:42PM BY JEREL WOODSATI ON/ADDEN DUM Michelle Degutis null, [facility] 6 11:38:22 Retentio n of urine [id number] Completed 201209/15/2013 RECORDED 04/30/19 13 2:37PM BY TEA HANDY MA, ANNOTATI ON/ADDEN DUM Michelle Degutis null, [facility] 6 11:38:22 Vaginiti s and vulvovag initis Completed 201109/15/2013 IMPRESSI ON: VAGINAL ITCHING AFTER COMPLETI NG ANTIBIOT ICS; RECORDED 10/31/19 12 2:42PM BY NICKY WOODS ON/ADDEN DUM Michelle Degutis null, [facility] 6 11:38:22 Anemia due to chronic blood loss 240819540 Completed 201109/16/2013 RECORDED 10/31/19 12 2:42PM BY JEREL WOODSATI ON/ADDEN DUM Michelle Degutis null, [facility] 6 11:38:21 Tobacco user [id number] Completed 201209/16/2013 RECORDED 01/28/20 13 1:17PM BY ALEXANDRE AGUILAR MA, ANNOTATI ON/ADDEN DUM Becky Norton MA null, [facility] 7 17:00:35 Chest pain 84392316 Completed 201109/16/2013 RECORDED 10/31/19 12 2:41PM BY JEREL WOODSATI ON/ADDEN DUM Michelle Degutis null, [facility] 6 11:38:22 Screenin g for malignan t neoplasm of colon Completed 201209/16/2013 RECORDED 04/30/19 13 2:37PM BY TEA HANDY MA, JERELATI ON/ADDEN DUM Michelle Degutis null, [facility] 6 11:38:22 Divertic ular disease of colon 579600622 Completed 201109/16/2013 STORY: PT WAS SEEN IN OUR OFFICE 11/30/09 FOR RECTAL BLEEDING AND WAS REFERRED TO GI FOR AN EVALUATI ON. THAT EVENING EVERY TIME THE PT ATE SOMETHIN G SHE WOULD BE GOING TO THE BATHROOM TO HAVE A BM THAT WAS FILLED WITH BLOOD. AFTER A FEW TIMES THE PT TOOK HERSELF TO [facility] TO BE EVALUATE D. THE ONLY SX THAT THE PT FELT WAS BLOATING AND CRAMPING EVERYTIM E SHE ATE. PT HAD TO UNDERGO A COLONOSC OPY WITCH SHOWED THAT THE PT HAD BLEEDING COMING FROM THE [place],DESCEN DING, AND TRANSVER SE COLON. PT WAS LATER TRANSFER RED TO [facility] TO BE WATCHED CLOSELY. PT WAS THEN PLACED ON A LIQUID DIET UNTIL THE TIME WHERE SHE COULD TOLERATE SOLID FOOD WITH OUT PASSING A BM THAT WAS BLOODY. MEDICATI ON HAS BEEN RECONSIL ED WITH THE PT AND SHE WILL F/U WITH MGD 12/21/09 .; RECORDED 10/31/19 12 2:41PM BY NICKY WOODS ON/ADDEN DUM Michelle Antonioutedouard rosario [facility] 6 11:38:21 Hemorrha ge of colon [id number] Completed 201109/16/2013 STORY: STABLE/ STILL ANEMIC; RECORDED 10/31/19 12 2:41PM BY NICKY WOODS ON/ADDEN DUM Michelle Antonioutedouard rosario [facility] 6 11:38:22 Dysuria 59939599 Completed 201109/16/2013 IMPRESSI ON: 3+ LEUKOCYT ES ON UA TODAY, COMPLETE D BACTRIM 2 DAYS AGO, START CIPRO AND SEND CULTURE; RECORDED 10/31/19 12 2:41PM BY NICKY WOODS ON/ADDEN TORIE rosario [facility] 7 17:01:13 Influenz a vaccine needed [id number] 06 Completed 201209/16/2013 RECORDED 04/30/19 13 2:37PM BY TEA HANDY MA, ANNOTATI ON/ADDEN DUM Michelle rosario [facility] 6 11:38:22 Follow-u p encounte r Completed 201209/16/2013 RECORDED 04/30/19 13 2:37PM BY TEA HANDY MA, ANNOTATI ON/ADDEN DUM Michelle rosario [facility] 6 11:38:22 Hypo-osm olality and or hyponatr emia 688133571 Completed 201109/16/2013 RECORDED 10/31/19 12 2:41PM BY NICKY WOODS/CHARLIE DUM Michelle Degutis null, [facility] 6 11:38:21 Impacted odilia 35441617 Completed 201209/16/2013 RECORDED 01/28/20 13 1:17PM BY ALEXANDRE AGUILAR MA, ANNOTATI ON/ADDEN DUM Becky Cierra GALLAGHER null, [facility] 7 17:00:46 Renewal of prescrip tion Completed 201209/16/2013 RECORDED 04/30/19 13 2:37PM BY TEA HANDY MA, JERELATI ON/ADDEN DUM Michelle Degutis null, [facility] 6 11:38:22 Active or passive immuniza tion Completed 200909/16/2013 RECORDED 03/01/19 10 9:56AM BY PILLO Masters NP, OFFICE VISIT [place] Pacoutis null, [facility] 6 11:38:22 Examinat ion for suspecte d mental disorder Completed 201109/16/2013 RECORDED 10/31/19 12 2:41PM BY NICKY WOODS ON/[facility] TORIE Mcihelle Degutis null, [facility] 6 11:38:22 Pre-surg girish evaluati on Completed 201209/16/2013 IMPRESSI ON: PT IS MEDICALL Y ABLE TO UNDERGO SURGERY, NO ACTIVE ISSUES, IS ABLE TO LAY FLAT AND STILL, EKG NL AND WILL GET LABS; RECORDED 01/28/20 13 1:17PM BY ALEXANDRE AGULIAR MA, NICKY ON/ADDEN DUM Michelle Degutis null, [facility] 6 11:38:22 Tachycar wesley [id number] Completed 201109/16/2013 RECORDED 10/31/19 12 2:42PM BY NICKY WOODS ON/ADDEN DUM Michelle Degutis null, [facility] 6 11:38:22 Retentio n of urine [id number] Completed 201209/16/2013 RECORDED 04/30/19 13 2:37PM BY TEA HANDY MA, ANNOTATI ON/ADDEN DUM Michelle Ervin abraham [facility] 6 11:38:22 Vaginiti s and vulvovag initis Completed 201109/16/2013 IMPRESSI ON: VAGINAL ITCHING AFTER COMPLETI NG ANTIBIOT ICS; RECORDED 10/31/19 12 2:42PM BY NICKY WOODS ON/ADDEN DUM Michelle Ervin abraham [facility] 6 11:38:22 Dermatit is Completed 09/17/2016 Becky rosario [facility] 7 17:00:48 Dysuria [id number] Completed 09/17/2016 Becky rosario [facility] 7 17:01:13 Insomnia 260157150 Active [place] Pacohermelindaedouard abraham [facility] 6 11:38:21 Advance directiv e discusse d with patient 537077095 Completed 09/17/2016 Becky rosario [facility] 7 17:01:07 Polyp of colon 24877394 Active [place] Aziza abraham [facility] 6 11:38:21 Chronic low back pain 410436759 Active 2018 Rebeca rosario [facility] 9 14:22:51 Problem Notes None recorded. Procedures Surgical History Date Name Laterality Status Provider Name and Address Organization Details Recorded Time 01/21/20 19 Mini-Cog Test completed Leila Julien MA [facility] 01/20/2019 09:52:44 12/30/19 18 Most Recent Mammogram completed Leila Julien MA [facility] 01/20/2019 09:47:42 12/19/19 18 Mini-Cog Test completed Naheed Veliz [facility] 12/18/2017 13:13:25 12/02/19 17 Fall Risk Assessment completed Becky Norton MA [facility] 12/01/2016 13:22:35 12/02/19 17 Mini-Cog Test completed Beckybridger Norton MA [facility] 12/01/2016 13:23:31 11/29/19 17 Mammogram both breasts completed Kimmy Yañez [facility] 12/09/2016 14:44:18 10/17/19 17 Date of Last Colonoscopy completed Paola Whittakera [facility] 12/09/2016 16:54:35 10/17/19 17 Colonoscopy completed Beckybridger Norton [facility] 10/24/2016 11:43:36 03/23/19 16 Fall Risk Assessment completed Beckybridger Norton [facility] 03/23/2015 13:55:01 03/23/19 16 Mini-Cog Test completed [facility] 03/23/2015 14:02:26 03/23/19 16 Advanced Care Planning completed Beckybridger Norton [facility] 03/23/2015 13:41:44 08/19/19 15 Date of Last Pap Smear completed Michelle Ervin [facility] 03/28/2015 11:40:33 02/23/19 11 Most Recent Bone Density completed Beckybridger Norton [facility] 03/23/2015 14:07:39 02/09/19 08 Appendectomy completed Tea Handy [facility] 03/02/2014 10:46:37 Imaging Results Imaging Date Name Status LastModified by Organization Details LastModified Time 05/15/2017 electrocardiogram completed Infor mation not available 05/15/2017 12:36:53 06/14/2018 XR, sacrum + coccyx, 2 or more view active [facility] [address] [place], [address], 06/15/2018 15:07:23 06/14/2018 XR, lumbar spine active [facility] [address] [place], [address], 06/15/2018 15:07:23 Procedure Notes None recorded. Medical Equipment None Reported. Allergies Allergen ID Allergen Name Allergen Category Reaction Reaction Severity Criticality Documentation Date Start Date Code Code System Note Provider Name and Address Organization Details Recorded Time 2935 latex environme nt,medica tion rash Not available Not available 08/23/20132012 17543 91 [facility] 7 17:00:18 Medications Name Sig Start Date Stop Date Status Note LastModified by Organization Details LastModified Time silver sulfadiaz ine 1 % topical cream 05/15 completed Not Available Not Available Not Available Qvar 80 mcg/actua tion Metered Aerosol oral inhaler DAILY 11/13 completed RECORDED 11/14/19 10 2:35PM BY ALEXANDRE BRADSHAW , OFFICE VISIT; Not Available Not Available Not Available cefuroxim e axetil 250 mg tablet 06/11 completed Not Available Not Available Not Available trazodone 50 mg tablet Take 2 tablets every day by oral route for 30 days. 03/23 completed Not Available Not Available Not Available lisinopri l 20 mg-hydroc hlorothia zide 12.5 mg tablet DAILY 08/26 completed RECORDED 08/27/19 11 11:00AM BY RICARDO COLE MD, ANNOTATI ON/ADDEN DUM; Not Available Not Available Not Available clorazepa te dipotassi um 3.75 mg tablet TAKE 1 TABLET BY MOUTH EVERY DAY active Not Available Not Available No t Available fluconazo le 150 mg tablet DAILY 09/05 completed RECORDED 09/19/19 11 7:23PM BY TELLY DORANTES PA-C, MEDICATI ON [facility] N; Not Available Not Available Not Available valacyclo vir 1 gram tablet 11/13 completed Not Available Not Available Not Available prednison e 20 mg tablet Take by oral route for 9 days. 10/31 completed Not Available Not Available Not Available Pyridium 200 mg tablet Take 1 tablet 3 times a day by oral route for 5 days. 2014 active Not Available Not Available Not Avai lable atenolol 25 mg tablet DAILY 03/29 completed RECORDED 03/29/19 10 3:00PM BY PILLO Masters NP, ANNOTATI ON/ADDEN DUM; Not Available Not Available Not Available penicilli n V potassium 500 mg tablet active Not Available Not Available Not Available ciproflox acin 250 mg tablet BID 03/23 completed Not Available Not Available Not Available sulfameth oxazole 800 mg-trimet hoprim 160 mg tablet TWO TIMES DAILY 09/03 completed RECORDED 09/04/19 11 9:49AM BY SOLOMON GAMEZ MD, MEDICATI ON [facility] N; Not Available Not Available Not Available Metamucil 30.9 % oral powder Take by oral route. 06/11 completed Not Available Not Available Not Available amoxicill in 875 mg tablet 01/20 completed Not Available Not Available Not Available lorazepam 0.5 mg tablet Take 1 tablet as needed by oral route as needed for 3 days. 05/15 completed Not Available Not Available Not Available tamsulosi n 0.4 mg capsule Take 1 capsule every day by oral route as directed . active Not Available Not Available No t Available lisinopri l 10 mg tablet TAKE 1 TABLET BY MOUTH EVERY DAY active Not Available Not Available No t Available Cardizem CD 120 mg/24hr capsule,e xtended release DAILY 12/21 completed RECORDED 12/22/19 10 2:51PM BY RICARDO COLE MD, ANNOTATI ON/ADD DUM; Not Available Not Available Not Available diltiazem ER 90 mg capsule,e xtended release 12 hr DAILY 2010 active RECORDED 11/30/19 11 11:24AM BY RICARDO COLE MD, OFFICE VISIT; Not Available Not Available Not Available nystatin- triamcino lone 100,000 unit/g-0. 1 % topical cream APPLY TO THE AFFECTED AREA(S) BY TOPICAL ROUTE 2 TIMES PER DAY IN THEMORNI NG AND EVENING 2013 active Not Available Not Available Not Avai lable fluoxetin e 10 mg capsule Take 1 capsule every day by oral route for 30 days. 03/23 completed Not Available Not Available Not Available omeprazol e 20 mg capsule,d elayed release TAKE ONE CAPSULE BY MOUTH EVERY DAY 2019 active Not Available Not Available Not Avai lable diclofena c sodium 75 mg tablet,de layed release Take 1 tablet twice a day by oral route for 30 days. 12/01 completed Not Available Not Available Not Available diltiazem CD 120 mg capsule,e xtended release 24 hr TAKE ONE CAPSULE BY MOUTH EVERY 24 HOURS active Not Available Not Available No t Available monteluka st 10 mg tablet 01/20 completed Not Available Not Available Not Available metoprolo l succinate ER 25 mg tablet,ex tended release 24 hr DAILY 09/21 completed RECORDED 09/22/19 10 3:18PM BY NICKY PEREZ ON/CHARLIE DUM; Not Available Not Available Not Available lorazepam 1 mg tablet TWO TIMES DAILY, NEEDED 11/29 completed RECORDED 11/30/19 11 10:51AM BY ED SIMS MA, OFFICE VISIT;AT CACHORRO TRIAL ONLY GIVEN SCRIPT FOR 7 PILLS Not Available Not Available Not Available cefuroxim e axetil 500 mg tablet 05/15 completed Not Available Not Available Not Available methylpre dnisolone 4 mg tablets in a dose pack 05/15 completed Not Available Not Available Not Available ipratropi um bromide 42 mcg (0.06 %) nasal spray active Not Available Not Available Not Available sertralin e 50 mg tablet active Not Available Not Available Not Available clorazepa te dipotassi um 7.5 mg tablet TAKE 1 TABLET BY MOUTH EVERY DAY DIRECTED 11/26 completed Not Available Not Available Not Available amoxicill in 875 mg-potass ium clavulana te 125 mg tablet 12/01 completed Not Available Not Available Not Available Ventolin HFA 90 mcg/actua tion aerosol inhaler active Not Available Not Available Not Available psyllium husk 0.52 gram capsule TWO TIMES DAILY 12/30 completed RECORDED 01/01/20 10 3:38PM BY SHIRLEY BIRCH ON [facility] N; Not Available Not Available Not Available metoprolo l tartrate 25 mg tablet DAILY 01/10 completed RECORDED 01/11/20 11 12:56PM BY ED SIMS MA, OFFICE VISIT;PT REPORTS ONLY TAKING 1/2 TAB QD Not Available Not Available Not Available nitrofura ntoin monohydra te/macroc rystals 100 mg capsule 05/15 completed Not Available Not Available Not Available Peak Air Peak Flow Meter DAILY 06/08 completed RECORDED 08/03/19 10 10:21AM BY ANDRÉS TURNER, MEDICATI ON [facility] CTIVATIO N;DX ASTHMA Not Available Not Available Not Available Zostavax (PF) 19,400 unit/0.65 mL subcutane ous suspensio n BROCK X 1 10/31 completed RECORDED 11/03/19 12 9:20AM BY RICARDO COLE MD, MEDICATI ON [facility] CTIVATIO N; Not Available Not Available Not Available Symbicort 160 mcg-4.5 mcg/actua tion HFA aerosol inhaler Inhale 1 puff twice a day by inhalati on route. active Not Available Not Available No t Available cholecalc iferol (vitamin D3) 50 mcg (2,000 unit) capsule Take 1 capsule every day by oral route. active Not Available Not Available No t Available Flovent Diskus 100 mcg/actua tion powder for inhalatio n TWO TIMES DAILY 2013 active RECORDED 04/04/19 14 5:59PM BY RICARDO COLE MD, REFILL REQUEST; Not Available Not Available Not Available Vitals Date Recorded Body height Body mass index (BMI) Body weight Body temperature Oxygen saturation Oxygen saturation in Arterial blood by Pulse oximetry Heart rate Systolic blood pressure Diastolic blood pressure Provider Name and Address Organization Details Last Updated DateTime 8 154.94 cm 31.4 kg/m2 59798.4 3 g 98.7 [degF] 96 % 96 % 89 /min 118 mm[Hg] 76 mm[Hg] Becky Norton MA [facility] 8 11:28:28 Date Recorded Body height Body mass index (BMI) Body weight Heart rate Oxygen saturation Oxygen saturation in Arterial blood by Pulse oximetry Body temperature Systolic blood pressure Diastolic blood pressure Provider Name and Address Organization Details Last Updated DateTime 8 154.94 cm 30.8 kg/m2 66096.5 6 g 94 /min 97 % 97 % 97.5 [degF] 136 mm[Hg] 74 mm[Hg] Viola Medina [facility] 8 10:41:30 Date Recorded Body height Body mass index (BMI) Body weight Body temperature Heart rate Oxygen saturation Oxygen saturation in Arterial blood by Pulse oximetry Systolic blood pressure Diastolic blood pressure Provider Name and Address Organization Details Last Updated DateTime 8 154.94 cm 30.5 kg/m2 87289.4 7 g 97.2 [degF] 86 /min 96 % 96 % 123 mm[Hg] 72 mm[Hg] Naheed Winnignacia [facility] 8 12:57:56 Date Recorded Body height Body mass index (BMI) Body weight Heart rate Oxygen saturation Oxygen saturation in Arterial blood by Pulse oximetry Body temperature Systolic blood pressure Diastolic blood pressure Provider Name and Address Organization Details Last Updated DateTime 9 154.94 cm 30.2 kg/m2 44821.7 8 g 92 /min 96 % 96 % 98.4 [degF] 124 mm[Hg] 78 mm[Hg] Ruby Garciau [facility] 9 12:59:19 Date Recorded Body height Body mass index (BMI) Body weight Oxygen saturation Oxygen saturation in Arterial blood by Pulse oximetry Heart rate Body temperature Systolic blood pressure Diastolic blood pressure Provider Name and Address Organization Details Last Updated DateTime 9 154.94 cm 30.7 kg/m2 39666.0 6 g 96 % 96 % 81 /min 98.1 [degF] 119 mm[Hg] 67 mm[Hg] Leila Julien MA [facility] 9 09:56:35 Social History Question Answer Notes LastModified by Organizat ion Details LastModified Time Tobacco Smoking Status [facility] 11:26:06 Do You Have An Advance Directive? Yes Information not available 03/23/2015 What Is Your Level Of Alcohol Consumption? Moderate Glass Of Wine Couple Days A Week Information not available 03/23/2015 Is Blood Transfusion Acceptable In An Emergency? Yes Information not available 03/23/2015 What Is Your Level Of Caffeine Consumption? None Information not available 03/23/2015 How Much Tobacco Do You Chew? None Information not available 12/18/2017 Are You Currently Employed? Yes Information not available 03/02/2014 What Type Of Diet Are You Following? SPECIFIC Veggies, Chicken, Fruits Information not available 03/23/2015 Which Illicit Or Recreational Drugs Have You Used? None Information not available 12/18/2017 Do You Or Have You Ever Used E-cigarettes Or Vape? 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 Yes Safely Locked Information not available 03/02/2014 Live Alone Or With Others? Alone Information not available 03/02/2014 Do You Take Precautions To Prevent Distracted Driving? Yes Information not available 03/23/2015 How Often Do You Need To Have Someone Help You When You Read Instructions, Pamphlets, Or Other Written Material From Your Doctor Or Pharmacy? Never Information not available 03/23/2015 Have You Served In The ? No Information not available 10/31/2016 What Was The Date Of Your Most Recent Tobacco Screening? 06/11/2018 Information not available 09/02/2018 How Many Children Do You Have? 2 Information not available 03/02/2014 Seat Belts Used Routinely Yes Information not available 03/23/2015 Smoke Alarm In Home Yes Information not available 03/23/2015 At What Age Did You Start Smoking Tobacco? 0 Information not available 12/18/2017 Are You Passively Exposed To Smoke? Yes Information not available 03/23/2015 Do You Or Have You Ever Used Smokeless Tobacco? Never Used Smokeless Tobacco [email or web address] Information not available 01/20/2019 How Much Tobacco Do You Smoke? 1 PPW [email or web address] Information not available 01/20/2019 General Stress Level Low Information not available 03/02/2014 Do You Use Sunscreen Routinely? Yes Information not available 03/23/2015 How Many Years Have You Smoked Tobacco? 15 Information not available 12/18/2017 Sex: Unknown Functional Status Question Answer Note LastModified by Organizat ion Details LastModified Time Are you able to care for yourself? Yes pt will get life alert - Pt will get Information not available 03/02/2014 What is your exercise level? Moderate daily [email or web address] Information not available 01/20/2019 Mental Status None recorded. Family History Relationship Description Onset Age of this Age Resolved Age Notes LastModified by Organization Details LastModified Time Mother Malignant tumor of breast [email or web address] Not available 01/2016 14:12:46 Mother Carcinoma in situ of skin mdalessandro Not available 03/23/2015 14:12:45 Mother Pneumonia 83 [email or web address] Not avai lable 03/23/2015 14:12:45 Mother Chronic obstructive pulmonary disease mdalessandro Not available 01/2016 14:12:46 Father Malignant tumor of prostate mdalessandro Not available 01/2016 14:12:46 Father Cerebrovascu lar accident 87 mdalessandro Not available 03/23/2015 14:12:46 Father Essential hypertension mdalessandro Not available 03/23/2015 14:12:46 Father Alcohol abuse mdalessandro Not available 01/2016 14:12:46 Father Depressive disorder mdalessandro Not available 01/2016 14:12:46 Father Chronic deafness mdalessandro Not available 01/2016 14:12:46 Medical History Condition Response Anxiety Disorder Y Reflux/GERD Y Hypertension Y Asthma Y Gynecological History Statement/Question Response Menses Monthly N If Post Menopausal, Age at Menopause 56 Date of Last Pap Smear 08/18/2014 Date of Last Colonoscopy 10/16/2016 Most Recent Mammogram 12/29/2017 Most Recent Bone Density 02/23/2010 Obstetrics History GPAL:G 0 P 0 0 0 0 Immunizations Vaccine Type Date Status Note Provider Nam e and Address Organization Details Recorded Time Pneumococcal conjugate PCV 13 5 completed Not Available [facility] 02/26/2019 02:21:36 Influenza, split virus, quadrivalent, PF 5 completed Becky rosario [facility] 03/23/2015 14:06:48 Influenza, high-dose, trivalent, PF 7 completed Not Available [facility] 02/26/2019 02:22:21 Novel Oedarmumw-[id number], all formulations 0 completed Not Available [facility] 08/23/2013 13:38:52 pneumococcal polysaccharide PPV23 0 completed Not Available [facility] 08/23/2013 13:38:52 Influenza, split virus, trivalent, preservative 0 completed Not Available [facility] 08/23/2013 13:38:52 Influenza, split virus, trivalent, preservative 1 completed Not Available [facility] 08/23/2013 13:38:52 Influenza, split virus, trivalent, preservative 2 completed Not Available [facility] 08/23/2013 13:38:52 Influenza, split virus, trivalent, preservative 3 completed Not Available [facility] 08/23/2013 13:38:52 Influenza, high-dose, trivalent, PF 8 completed Not Available [facility] 02/26/2019 02:22:14 Influenza, high-dose, trivalent, PF 9 completed Not Available [facility] 02/26/2019 02:22:09 Past Encounters Encounter ID Performer Location Encounter Start Date Encounter Closed Date Diagnosis/Indication Diagnosis SNOMED-CT Code Diagnosis ICD10 Code [id number] [facility] Main Office [address] [facility] [address] [place] [address] 09/08/2013 11:14:56 09/08/2013 11:58:13 Essential hypertension 04987130 Asthma 965949120 Anxiety state [id number] [facility] cerumen 1670430 6 [id number] [facility] [address] [facility] [place] [address] 03/01/2009 00:00:00 [id number] autoEComm erce [address] [facility] [place] [address] 03/29/2009 00:00:00 [id number] auto[facility]Comm erce [address] [facility] [place] [address] 09/10/2009 00:00:00 [id number] [address] [place] [address] 11/13/2009 00:00:00 [id number] auto[facility] [address] [place] [address] 11/30/2009 00:00:00 [id number] [address] [place] [address] 12/21/2009 00:00:00 [id number] [address] [address] [place] [address] 02/11/2010 00:00:00 [id number] [address] er[address] [place] [address] 05/17/2010 00:00:00 [id number] auto[facility]Comm erce [address] [facility] [place] [address] 08/23/2010 00:00:00 [id number] autoEComm erce [address] [facility] [place] [address] 09/04/2010 00:00:00 [id number] autoEComm erce [address] [facility] [address] [place] [address] 11/29/2010 00:00:00 [id number] auto[employer]Comm erce [address] [facility] [place] [address] 01/10/2011 00:00:00 [id number] [employer] erce [address] [facility] [place] [address] 05/02/2011 00:00:00 [id number] autoEComm erce [address] [facility] [place] [address] 10/31/2011 00:00:00 [id number] auto[employer]Comm erce [address] [facility] [place] [address] 04/29/2012 00:00:00 [id number] auto[employer]Comm erce [address] [facility] [place] [address] 07/15/2012 00:00:00 [id number] auto[facility]Comm erce [address] [facility] [address] [place] [address] 01/27/2013 00:00:00 [id number] [place] Main Office [address] [facility] [address] [place] [address] 09/26/2013 13:41:44 09/26/2013 14:55:33 Dermatitis [id number] [facility] Main Office [address] [facility] [place] [address] 03/02/2014 12:39:53 03/02/2014 13:42:38 Essential hypertension 69266385 Hyponatremia 12650496 Anxiety state 481476615 Dysuria 07836856 [id number] Becky Norton [place] Main Office [address] [address] [place] [address] 04/21/2014 14:46:19 04/21/2014 15:48:33 Essential hypertension 61956692 Gastroesop hageal reflux disease 534402942 Anxiety state 669811581 Asthma 209975767 [id number] Ricardo medellin Main Office [address] [address] [place] [address] 03/23/2015 13:27:48 03/23/2015 14:47:01 Adult health examination 686576007 Z00.00 At [facility] ed risk for falls 206399542 Z91.81 Advance di rective discussed with patient 359212580 Z71.89 Essential hypertension 99811649 I10 Polyp of colon 51458793 K63.5 Asthma 029587911 J45.90 9 Anxiety state 474511907 F41.1 [id number] Ricardo medellin Main Office [address] [address] [place] [address] 10/05/2015 12:46:12 10/05/2015 13:40:50 Essential hypertension 92815060 I10 Asthma 350279828 J45.90 9 Anxiety state 794201322 F41.1 [id number] Ricardo medellin Main Office [address] [address] [place] [address] 06/19/2016 12:55:50 06/19/2016 14:13:50 Fatigue 27187589 R53.83 Abnormal weight loss 267 202292 R63.4 Diarrhea 40380994 R19.7 Nausea 624924177 R11.0 Impaired f asting glycemia 675416908 R73.01 [id number] Ricardo medellin Main Office [address] [address] [place] [address] 10/23/2016 14:30:06 10/23/2016 15:27:24 [id number] Ricardo medellin Main Office [address] [address] [place] [address] 10/31/2016 13:21:48 10/31/2016 14:41:18 Lumbosacral radiculitis 87806569 M54.17 Influenza vaccine needed 6840666661 106 Z23 [id number] Ricardo medellin Main Office [address] [address] [place] [address] 12/01/2016 13:04:53 12/01/2016 14:09:38 Adult health examination 354393934 Z00.00 Essential hypertension 25275750 I10 Anxiety state 655069158 F41.1 [id number] Ricardo medellin Main Office [address] [address] [place] [address] 05/15/2017 11:16:16 05/15/2017 12:12:51 Anxiety state 854986359 F41.1 Essential hypertension 19227088 I10 Incomplete emptying of urinary bladder 471223312 R39.14 [id number] Maryanne fernandes Main Office [address] [address] [place] [address] 11/13/2017 10:36:20 11/13/2017 11:18:17 Anxiety state 464475126 F41.1 Influenza vaccine needed 3116005582 106 Z23 Gastroesop hageal reflux disease 619605037 K21.9 Essential hypertension 38510948 I10 [id number] Ramon Callahan MD Main Office [address] [address] [place] [address] 12/18/2017 12:40:39 12/18/2017 13:46:58 Adult health examination 301235372 Z00.00 Varicella vaccination 68 312223 Z23 Asthma 761471097 J45.90 9 Essential hypertension 67812581 I10 Family his tory of Hypercholesterolemia 231358680 Z83.49 Anxiety state 494878955 F41.1 [id number] [facility] Office [address] [facility] [address] [place] [address] 06/11/2018 12:42:51 06/11/2018 13:40:40 Low back pain 793925404 M54.5 Cramp in lower limb 4499 92058 R25.2 Essential hypertension 50001030 I10 Fatigue 15183486 R53.83 [id number] [facility] Main Office [address] [facility] [address] [place] [address] 01/20/2019 09:41:15 01/20/2019 10:33:29 Adult health examination 106610023 Z00.00 Influenza vaccine needed 5048277338 106 Z23 Impaired f asting glycemia 596554077 R73.01 Hyperlipidemia 19009137 E78.5 Health Concerns Section Related Observation LastModified by Organization Detai ls LastModified Time None Recorded Concern Status LastModified by Organization Details LastModified Time None Recorded Advance Directives Directive Y: Payers Encounter Date Sequence Insurance Name Policy Number Policy Menendez Covered Member ID Menendez Member ID Guarantor Name 05/15/2017 2 [place] [id number] Noris E Oparowski [id number] Noris E Oparowski 05/15/2017 1 MEDICARE B-[place]: [employer] Noris E Oparowski [id number] Noris E Oparowski 11/13/2017 2 [place]) [id number] Noris E Oparowski [id number] Onris E Oparowski 11/13/2017 1 MEDICARE B-[place]: [employer] Noris E Oparowski [id number] Noris E Oparowski 12/18/2017 2 [place]) [id number] Noris E Oparowski [id number] Noris E Oparowski 12/18/2017 1 MEDICARE B-[place]: [employer] Noris E Oparowski [id number] Noris E Oparowski 06/11/2018 2 [place]) [id number] Noris E Oparowski [id number] Noris Hou 06/11/2018 1 MEDICARE B-[place]: [employer] Noris Hou [id number] 06 Noris Hou 01/20/2019 2 [place] [id number] Noris Hou [id number] Noris Hou 01/20/2019 1 MEDICARE B-[place]: [facility] Noris Hou [id number] 06 Noris Hou Notes Date Note Type Note Provider Name and Address Organization Details Recorded Time 05/15/2017 text/html Anxiety/Depressi onRepo rted bypatient.Quality:incr eased anxiety; pt reports that sthe plans to return to her pschologist Dr Valdes this year Severity:able to maintain relationships Associated Symptoms:no significant weight gain; mood good; 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 of benzo use , > 20 yearsHypertension F/UReported bypatient.Associated Symptoms:no dizziness; no lightheadedness; no edema Lifestyle:limiting/delmy iding salt Medications:taking medications as directed; no side effects from medicationUrinary FrequencyReported bypatient.Quality:symp toms worse during the day Severity:moderate Alleviating Factors:pt has incomplete emptying of bladder/ see urology notes from 2014- pt will be referred back and we will refill tamsulosin which pt finds helpful Associated Symptoms:no abdominal pain; no back pain; no chills; no blood in the urine; no nausea; no vomiting; no fever;incomplete emptying of bladder Ricardo rosario [facility] 05/15/2017 12:16:47 11/13/2017 text/html Anxiety/Depressi onRepo rted bypatient.Quality:incr eased anxiety; stress, car trouble Severity:able to maintain relationships Context:major life stressors;family problems Associated Symptoms:no significant weight gain;high irritability;hostility ;anxiety;hypersensitiv ity;anxiety with muscle tension; pt has half-way hx of benzo use , > 20 yearsNotes:+ hx nausea and diarrhea, panic attacks etc Maryanne rosario [facility] 11/13/2017 12:41:13 12/18/2017 text/html Medicare Annual Wellness VisitReported bypatient.Diet and Nutrition:healthy diet; discussed vitamin and supplement use; discussed portion control; discussed maintaining calcium balance; discussed diet improvement Fracture Risk:no history of fractures; no recent explained fracture; no sudden unexplained fractures; no previous musculoskeletal injuries Physical Activity:recent increase in physical activity; good physical condition; discussed weightbearing activities; discussed exercise habits Depression Risk:never feels sad, empty, or tearful; no loss of interest in activities; no significant changes in weight; no sleep disturbances or insomnia; no agitation; no loss of energy; no feelings of worthlessness or guilt; no thoughts of suicide; no history of depression; no history of mood disorders Orientation:no disorientation to time; no disorientation to date; no disorientation to place Concentration and Memory:no decreased concentrating ability; no memory lapses or loss; does not forget words Speech/Motor difficulties:no speech difficulties; no difficulty expressing formulated concepts; no difficulty with fine manipulative tasks; no difficulty writing/copying; no slowed reaction time; does not knock things over when trying to pick them up Hearing:no loss of hearing Vision:no vision problems; reading glasses Instrumental Activities of Daily Living:able to do house work with limited or no assistance; able to grocery shop with limited or no assistance; able to manage medications with limited or no assistance; able to manage money with limited or no assistance; able to prepare meals with limited or no assistance; able to use the phone with limited or no assistance Falls Risk Assessment:no frequent falls while walking; no fall in the past year; no fall since last visit; no dizziness/vertigo Home Safety:reviewed sun protection; no unsafe stairs; no unsafe gas appliances; working smoke/CO detectors; wears protective head gear for biking/high velocity; use of seatbelts; practicing 'safer sex'; no vision or hearing loss while driving; no fire arms; has hand bars in the bathroom/shower; good lighting in the home;unsafe aamir hazzards(she is working on it) Ramon Callahan MD [address], [address], [facility] 12/19/2017 16:52:49 06/11/2018 text/html Generic HPI TemplateReported bypatient.Notes:Smith wilder in february, tripped over a rug, went to , had 2 broken toes on the right. saw orthopedics, wore a boot for 8 weeks. [place]. XR again and ok to go back to work, PT for the foot. PT is doing foot and back, sciatic pain for years on the left and is worsening. she is seeing a chiropractor. Patient states she feels she is off balance, legs are painful everyday sometimes in agony in her legs. trying to strengthen legs. DR saw Dr. Miller at [facility]. Was discharged in 2017 due to improvement with PT. 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 Since the fall her back pain is worse. Denis Marcos[address], [address], [facility] 06/11/2018 13:40:34 01/20/2019 text/html Medicare Annual Wellness VisitReported bypatient.Diet and Nutrition:healthy diet; discussed vitamin and supplement use; discussed portion control; discussed maintaining calcium balance; discussed diet improvement Fracture Risk:no recent explained fracture; no sudden unexplained fractures; no previous musculoskeletal injuries;history of fractures(2 broken toes s/p fall in february) Physical Activity:recent increase in physical activity; good physical condition; discussed weightbearing activities; discussed exercise habits Depression Risk:never feels sad, empty, or tearful; no loss of interest in activities; no significant changes in weight; no sleep disturbances or insomnia; no agitation; no loss of energy; no feelings of worthlessness or guilt; no thoughts of suicide; no history of depression; no history of mood disorders Orientation:no disorientation to time; no disorientation to date; no disorientation to place Concentration and Memory:no decreased concentrating ability; no memory lapses or loss; does not forget words Speech/Motor difficulties:no speech difficulties; no difficulty expressing formulated concepts; no difficulty with fine manipulative tasks; no difficulty writing/copying; no slowed reaction time; does not knock things over when trying to pick them up Hearing:fluctuating; saw ENT, had cerumen removal Vision:no vision problems; reading glasses Activities of Daily Living:able to bathe with limited or no assistance; able to contol urination and bowels; able to dress with limited or no assistance; able to feed self with limited or no assistance; able to get out of chair or bed with limited or no assistance; able to groom with limited or no assistance; able to toilet with limited or no assistance Instrumental Activities of Daily Living:able to do house work with limited or no assistance; able to grocery shop with limited or no assistance; able to manage medications with limited or no assistance; able to manage money with limited or no assistance; able to prepare meals with limited or no assistance; able to use the phone with limited or no assistance Falls Risk Assessment:no frequent falls while walking; no dizziness/vertigo; fall(s) in the past year 1; fall(s) since last visit1; trip and fall Home Safety:reviewed sun protection; no unsafe stairs; no unsafe gas appliances; working smoke/CO detectors; wears protective head gear for biking/high velocity; use of seatbelts; practicing 'safer sex'; no vision or hearing loss while driving; no fire arms; has hand bars in the bathroom/shower; good lighting in the home;unsafe aamir hazzards(she is working on it)Notes:Numbness in bilateral feet sx for 1 year. saw orthopedics for toes after fall in february. does not believe she is diabetic. just in feet. Patient states she found a new PCP in [place] but cannot be seen until May. Denis [facility]cos [facility] [address] [address], [place], [address], [facility] 01/20/2019 10:57:40 OBGyn Episode No OBEpisode recorded.
[2024-02-08 14:33] LABS: Appearance Urine Clear; Color Urine Yellow; Glucose Urine UA Negative (Negative); Leukocyte Esterase Urine Negative (Negative); Nitrite Urine Negative (Negative); PH 5.5 (5.0-9.0); Urine Blood Negative (Negative); Urine Ketones Negative (Negative); Urine Protein Negative (Neg-Trace)
[2024-02-08 14:56] LABS: Alanine Aminotransferase 22 U/L (0-31); Albumin Level 3.8 g/dL (3.5-5.0); Alkaline Phosphatase 108 U/L (39-117); Anion Gap 13 (12-20); Aspartate Amino Transferase 40 U/L (5-31); Bilirubin Total 0.5 mg/dL (0.0-1.0); Blood Urea Nitrogen 5 mg/dL (9-16); Calcium 8.8 mg/dL (8.4-10.2); Carbon Dioxide 26 mmol/L (22-29); Chloride 94 mmol/L (96-108); Estimated Glomerular Filt Rate > 60; Glucose Random 109 mg/dL (60-115); Potassium 4.4 mmol/L (3.3-5.1); Sodium 129 mmol/L (135-145); Total Protein 6.8 g/dL (6.5-8.0)
[2024-02-08 14:59] LABS: Creatinine Urine 66.98 mg/dL; Microalbum/Creatinine Ratio Ur 10.4 ug/mg cr (<30)
== END 2024-02-08 11:44 | disposition home or self-care (01) ==
LOC: HO.WFDLDS 11:43
PROVIDERS: Visit Provider Family Medicine
DX: I10 Essential (primary) hypertension (principal); M79.89 Other specified soft tissue disorders; L29.9 Pruritus, unspecified; Z86.718 Personal history of other venous thrombosis and embolism; Z86.711 Personal history of pulmonary embolism; Z79.01 Long term (current) use of anticoagulants; Z00.00 Encounter for general adult medical examination without abnormal findings
CPT/HCPCS: 36415; 80053; 81003; 82043; 82570; 99212

== ENCOUNTER 2024-02-11 09:37 | Outpatient (AMB) | payer MEDICARE, SELFPAY ==
--- OUTSIDE RECORDS SUMMARY | 2024-02-11 09:40 | XMS_ITS | Data Portability ---
Author Organization [facility], Main Office Address [address] [facility] [address] [place] [address] Care Team Providers Care Claim Trainee Name Role Phone ABDIEL ORTEGA Barrel Inspector GRACIELA MILLER Urologist [phone] ABDIEL LOZANO Tetryl Boiling Tub Operator [phone] URBAN PRIDE Geographic Information Systems Manager HUMBERTO SINGH Scrum Project Manager [phone] RICARDO HUGHES Chiropractor [facility] Physical Therapist DENIS MARCOS Primary Care Provider [phone] Assessment No assessment recorded. Plan of Treatment Reminders Order Date Submit Date Provider Last Modified By Organization Details Last Modified Time Details Appointments None recorded. Lab lipid panel, serum 2017 018 TIMOTHY [facility], [address] [place] [place], [address], 9 15:24:52 CMP, serum or plasma 2017 018 toni [facility], [address], [address], 9 11:56:02 magnesium , serum or plasma 2018 019 TIMOTHY [facility], [address] [place], [address], 9 15:24:53 CK (creatine kinase), total, serum 2018 019 TIMOTHY [facility], [address] [place], [address], 9 15:24:54 CBC w/ auto diff 2018 019 TIMOTHY [facility], [address] [place], [address], 9 13:55:52 CMP, serum or plasma 2018 019 TIMOTHY [facility], [address] [place], [address], 9 15:24:51 TSH, serum or plasma 2018 019 TIMOTHY [facility], [address] [place], [address], 9 15:37:23 HbA1c (hemoglob in A1c), blood 2018 019 [facility], [address] [place], [address], 0 09:38:13 BMP, serum or plasma 2018 019 [facility], [address] [place], [address], 0 09:38:13 lipid panel, serum 2018 019 [facility], [address] [place], [address], 0 09:38:13 Referral urologist referral - pt has not seen urology in 2 years or more and wants to have consultat ion w/ urologist rather than BODY JOINER 2017 018 scott Crane MD, [address], [place], [address], 8 13:35:13 physical therapist referral - At risk for falling 2017 018 [facility], [address], [place], [address], 8 16:26:43 spine center referral - patient in 2017, MRI showed crowding L2 nerve root on the left, having worsenign sx of sciatic pain, low back pain, leg pains bilateral ly. 2018 019 isaías [facility], [address] [place] [address], [id number], 9 17:23:40 Procedures None recorded. Surgeries None recorded. Imaging XR, lumbar spine - chronic low back pain, worsening s/p fall in february [id number] 019 [facility], [address] [place] [address], [address], 9 10:29:46 XR, sacrum + coccyx - s/p fall in february, hx low back arthritis . pain worsening 2018 019 [facility], [address] [place] [address], [address], 9 10:29:44 Medication Orders tamsulosi n 0.4 mg capsule 2017 018 [id number], [address] [place], [address], 8 13:01:14 clorazepa te dipotassi um 3.75 mg tablet 2017 018 INTERFACE [facility], [address] [place], [address], 8 12:05:21 clorazepa te dipotassi um 3.75 mg tablet 2017 018 INTERFACE [id number], [address] [place], [address], 8 11:18:58 Patient TargetsNo targets recorded. Patient Instructions Encounter Date Encounter Id Patient Instructions Last Modified By Organization Details Last Modified Time 11/13/2017 [id number] anxiety disorder: care instructions [email or web address] Not available 11/13/2017 11:18:44 call or return for worsening or concerns. [email or web address] Not available 11/13/2017 11:13:19 I have reviewed the note and agree with the assessment and plan of care. [email or web address] Not available 11/13/2017 12:41:01 12/18/2017 [id number] preventing falls: care instructions [email or web address] Not available [...] medication. [email or web address] Not available 12/18/2017 13:20:44 06/11/2018 [id number] low back pain: exercises [email or web address] Not available 06/11/2018 13:24:20 call or return for worsening or concerns. [email or web address] Not available 06/11/2018 13:22:08 01/20/2019 [id number] preventing falls: care instructions [email or web address] Not available 01/20/2019 10:20:59 call or return for woraening or concerns. [email or web address] Not available 01/20/2019 10:20:56 Reviewed the risks and benefits of penitentiary opiate use, OUD discussed with the patient. Reviewed the risks and benefits of other non-opioid pain therapies. Reviewed caution with driving, fall risk, treatment for constipation. Patient verbalizes understanding of risk and benefits, and of OUD. [email or web address] Not available 01/20/2019 09:46:37 Reason for Referral Urologist Referral for Incom plete emptying of urinary bladder pt has not seen urology in 2 years or more and wants to have consultation w/ urologist rather than BODY JOINER Referring Physician: Ricardo Dhillon, Internal Medicine, Encounter [...] Available [facility] [address] [place], [address], 09/11/2017 22:27:42 09/12/19 18 09/11/2017 CBC w/ auto diff RBC 4.68 M/mm3 (4.20- 5.40) Not Available [facility] [address] [place], [address], 09/11/2017 22:27:42 09/12/19 18 09/11/2017 CBC w/ auto diff HGB 14.7 gm/dL (11.7- 15.5) Not Available [facility] [address] [place], [address], 09/11/2017 22:27:42 09/12/19 18 09/11/2017 CBC w/ auto diff HCT 43.2 % (35.7- 45.8) Not Available [facility] [address] [place], [address], 09/11/2017 22:27:42 09/12/19 18 09/11/2017 CBC w/ auto diff MCV 92.3 fL (80.0- 100.0) Not Available [facility] [address] [place], [address], 09/11/2017 22:27:42 09/12/19 18 09/11/2017 CBC w/ auto diff MCH 31.4 pg (27.0- 34.0) Not Available [facility] [address] [place], [address], 09/11/2017 22:27:42 09/12/19 18 09/11/2017 CBC w/ auto diff MCHC 34.0 g/dL (33.0- 37.0) Not Available [facility] [address] [place], [address], 09/11/2017 22:27:42 09/12/19 18 09/11/2017 CBC w/ auto diff plt 230 K/mm3 (150-4 60) Not Available [facility] [address] [place], [address], 09/11/2017 22:27:42 09/12/19 18 09/11/2017 CBC w/ auto diff RDW-SD 45.7 fL (<47.0 ) Not Available [facility] [address] [place], [address], 09/11/2017 22:27:42 09/12/19 18 09/11/2017 CBC w/ auto diff MPV 9.5 fL (9.4-1 2.4) Not Available [facility] [address] [place], [address], 09/11/2017 22:27:42 09/12/19 18 09/11/2017 CBC w/ auto diff automated NRBC 0.0 #/100 _WBC' s Not Available [facility] [address] [place], [address], 09/11/2017 22:27:42 09/12/19 18 09/11/2017 CBC w/ auto diff abs. NRBC 0.0 K/mm3 Not Available [facility] [address] [place], [address], 09/11/2017 22:27:42 09/12/19 18 09/11/2017 CBC w/ auto diff neut # 4.7 K/mm3 (1.3-7 .0) Not Available [facility] [address] [place], [address], 09/11/2017 22:27:42 09/12/19 18 09/11/2017 CBC w/ auto diff lymph # 1.4 K/mm3 (0.8-3 .1) Not Available [facility] [address] [place], [address], 09/11/2017 22:27:42 09/12/19 18 09/11/2017 CBC w/ auto diff mono# 0.9 K/mm3 (0.4-0 .9) Not Available [facility] [address] [place], [address], 09/11/2017 22:27:42 09/12/19 18 09/11/2017 CBC w/ auto diff eo # 0.2 K/mm3 (0.0-0 .4) Not Available [facility] [address] [place], [address], 09/11/2017 22:27:42 09/12/19 18 09/11/2017 CBC w/ auto diff baso # 0.1 K/mm3 (0.0-0 .1) Not Available [facility] [address] [place], [address], 09/11/2017 22:27:42 09/12/19 18 09/11/2017 CBC w/ auto diff abs. imm gran 0.0 K/mm3 Not Available [facility] [address] [place], [address], 09/11/2017 22:27:42 09/12/19 18 09/11/2017 CBC w/ auto diff neut 64.7 % (44-76 ) Not Available [facility] [address] [place], [address], 09/11/2017 22:27:42 09/12/19 18 09/11/2017 CBC w/ auto diff lymph 18.7 % (15-43 ) Not Available [facility] [address] [place], [address], 09/11/2017 22:27:42 09/12/19 18 09/11/2017 CBC w/ auto diff monocyte 12.6 % (4.5-1 0.5) high Not Available [facility] [address] [place], [address], 09/11/2017 22:27:42 09/12/19 18 09/11/2017 CBC w/ auto diff eo 2.5 % (0-6) Not Available [facility] [address] [place], [address], 09/11/2017 22:27:42 09/12/19 18 09/11/2017 CBC w/ auto diff baso 1.2 % (0-2) Not Available [facility] [address] [place], [address], 09/11/2017 22:27:42 09/12/19 18 09/11/2017 CBC w/ auto diff imm gran 0.3 % (0.0-0 .6) Not Available [facility] [address] [place], [address], 09/11/2017 22:27:42 09/12/19 18 09/11/2017 CMP, serum or plasm a glucose 104 mg/dL (70-99 ) high Not Available [facility] [address] [place], [address], 09/11/2017 23:29:56 09/12/19 18 09/11/2017 CMP, serum or plasm a BUN 11 mg/dL (8-23) Not Available [facility] [address] [place], [address], 09/11/2017 23:29:56 09/12/19 18 09/11/2017 CMP, serum or plasm a creatinine 0.8 mg/dL (0.5-1 .0) Not Available [facility] [address] [place], [address], 09/11/2017 23:29:56 09/12/19 18 09/11/2017 CMP, serum or plasm a sodium 134 mmol/ L (133-1 45) Not Available [facility] [address] [place], [address], 09/11/2017 23:29:56 09/12/19 18 09/11/2017 CMP, serum or plasm a potassium 4.6 mmol/ L (3.6-5 .2) Not Available [facility] [address] [place], [address], 09/11/2017 23:29:56 09/12/19 18 09/11/2017 CMP, serum or plasm a chloride 96 mmol/ L (98-10 7) low Not Available [facility] [address], [address], 09/11/2017 23:29:56 09/12/19 18 09/11/2017 CMP, serum or plasm a bicarbonate 23 mmol/ L (22-29 ) Not Available [facility] [address], [address], 09/11/2017 23:29:56 09/12/19 18 09/11/2017 CMP, serum or plasm a anion gap 15 (4-17) Not Available [facility] [address], [address], 09/11/2017 23:29:56 09/12/19 18 09/11/2017 CMP, serum or plasm a albumin 4.1 gm/dL (3.4-4 .8) Not Available [facility] [address], [address], 09/11/2017 23:29:56 09/12/19 18 09/11/2017 CMP, serum or plasm a calcium 9.3 mg/dL (8.6-1 0.5) Not Available [facility] [address], [address], 09/11/2017 23:29:56 09/12/1909/11/2017 CMP, serum or plasm a bilirubin,to della 0.4 mg/dL (0-1.2 ) Not Available [facility] [address], [address], 09/11/2017 23:29:56 09/12/19 18 09/11/2017 CMP, serum or plasm a total protein 6.6 gm/dL (6.2-8 .2) Not Available [facility] [address] [place], [address], 09/11/2017 23:29:56 09/12/19 18 09/11/2017 CMP, serum or plasm a Ag ratio 1.6 Not Available [facility] [address] [place], [address], 09/11/2017 23:29:56 09/12/19 18 09/11/2017 CMP, serum or plasm a AST 24 U/L (0-32) Not Available [facility] [address] [place], [address], 09/11/2017 23:29:56 09/12/19 18 09/11/2017 CMP, serum or plasm a alk phos 104 U/L (35-10 4) Not Available [facility] [address] [place], [address], 09/11/2017 23:29:56 09/12/19 18 09/11/2017 CMP, serum or plasm a ALT 22 U/L (0-33) Not Available [facility] [address] [place], [address], 09/11/2017 23:29:56 09/12/19 18 09/11/2017 CMP, serum [...] Available [facility] [address] [place], [address], 09/11/2017 23:29:56 09/12/19 18 09/11/2017 CMP, serum [...] Afric an Ameri cans. Not Available [facility] [address] [place], [address], 09/11/2017 23:29:56 09/12/19 18 09/11/2017 magne sium, serum or plasm a magnesium 1.6 mEq/L (1.3-1 .9) Not Available [facility] [address] [place], [address], 09/11/2017 23:29:57 06/15/1906/14/2018 CBC w/ auto diff WBC 7.5 K/mm3 (4.0-1 1.0) Not Available [facility] [address] [place], [address], 06/14/2018 13:55:52 06/15/1906/14/2018 CBC w/ auto diff RBC 4.66 M/mm3 (4.20- 5.40) Not Available [facility] [address] [place], [address], 06/14/2018 13:55:52 06/15/1906/14/2018 CBC w/ auto diff HGB 15.3 gm/dL (11.7- 15.5) Not Available [facility] [address] [place], [address], 06/14/2018 13:55:52 06/15/1906/14/2018 CBC w/ auto diff HCT 43.9 % (35.7- 45.8) Not Available [facility] [address] [place], [address], 06/14/2018 13:55:52 06/15/1906/14/2018 CBC w/ auto diff MCV 94.2 fL (80.0- 100.0) Not Available [facility] [address] [place], [address], 06/14/2018 13:55:52 06/15/1906/14/2018 CBC w/ auto diff MCH 32.8 pg (27.0- 34.0) Not Available [facility] [address] [place], [address], 06/14/2018 13:55:52 06/15/1906/14/2018 CBC w/ auto diff MCHC 34.9 g/dL (33.0- 37.0) Not Available [facility] [address] [place], [address], 06/14/2018 13:55:52 06/15/1906/14/2018 CBC w/ auto diff plt 256 K/mm3 (150-4 60) Not Available [facility] [address] [place], [address], 06/14/2018 13:55:52 06/15/1906/14/2018 CBC w/ auto diff RDW-SD 43.2 fL (<47.0 ) Not Available [facility] [address] [place], [address], 06/14/2018 13:55:52 06/15/1906/14/2018 CBC w/ auto diff MPV 9.9 fL (9.4-1 2.4) Not Available [facility] [address] [place], [address], 06/14/2018 13:55:52 06/15/1906/14/2018 CBC w/ auto diff automated NRBC 0.0 #/100 _WBC' s Not Available [facility] [address] [place], [address], 06/14/2018 13:55:52 06/15/1906/14/2018 CBC w/ auto diff abs. NRBC 0.0 K/mm3 Not Available [facility] [address] [place], [address], 06/14/2018 13:55:52 06/15/1906/14/2018 CMP, serum or plasm a glucose 125 mg/dL (70-99 ) high Not Available [facility] [address] [place], [address], 06/14/2018 15:24:51 06/15/1906/14/2018 CMP, serum or plasm a BUN 8 mg/dL (8-23) Not Available [facility] [address] [place], [address], 06/14/2018 15:24:51 06/15/1906/14/2018 CMP, serum or plasm a creatinine 0.8 mg/dL (0.5-1 .0) Not Available [facility] [address] [place], [address], 06/14/2018 15:24:51 06/15/1906/14/2018 CMP, serum or plasm a sodium 134 mmol/ L (133-1 45) Not Available [facility] [address] [place], [address], 06/14/2018 15:24:51 06/15/1906/14/2018 CMP, serum or plasm a potassium 4.6 mmol/ L (3.6-5 .2) Not Available [facility] [address] [place], [address], 06/14/2018 15:24:51 06/15/1906/14/2018 CMP, serum or plasm a chloride 98 mmol/ L (98-10 7) Not Available [facility] [address] [place], [address], 06/14/2018 15:24:51 06/15/1906/14/2018 CMP, serum or plasm a bicarbonate 23 mmol/ L (22-29 ) Not Available [facility] [address], [address], 06/14/2018 15:24:51 06/15/19 19 06/14/2018 CMP, serum or plasm a anion gap 13 (4-17) Not Available [facility] [address], [address], 06/14/2018 15:24:51 06/15/19 19 06/14/2018 CMP, serum or plasm a albumin 4.5 gm/dL (3.4-4 .8) Not Available [facility] [address] [place], [address], 06/14/2018 15:24:51 06/15/19 19 06/14/2018 CMP, serum or plasm a calcium 9.5 mg/dL (8.6-1 0.5) Not Available [facility] [address] [place], [address], 06/14/2018 15:24:51 06/15/19 19 06/14/2018 CMP, serum or plasm a bilirubin,to della 0.5 mg/dL (0-1.2 ) Not Available [facility] [address] [place], [address], 06/14/2018 15:24:51 06/15/19 19 06/14/2018 CMP, serum or plasm a total protein 7.0 gm/dL (6.2-8 .2) Not Available [facility] [address], [address], 06/14/2018 15:24:51 06/15/19 19 06/14/2018 CMP, serum or plasm a Ag ratio 1.8 Not Available [facility] [address] [place], [address], 06/14/2018 15:24:51 06/15/19 19 06/14/2018 CMP, serum or plasm a AST 28 U/L (0-32) Not Available [facility] [address] [place], [address], 06/14/2018 15:24:51 06/15/19 19 06/14/2018 CMP, serum or plasm a alk phos 105 U/L (35-10 4) high Not Available [facility] [address] [place], [address], 06/14/2018 15:24:51 06/15/19 19 06/14/2018 CMP, serum or plasm a ALT 27 U/L (0-33) Not Available [facility] [address] [place], [address], 06/14/2018 15:24:51 06/15/19 19 06/14/2018 CMP, serum [...] Available [facility] [address] [place], [address], 06/14/2018 15:24:51 06/15/19 19 06/14/2018 CMP, serum [...] Available [facility] [address] [place], [address], 06/14/2018 15:24:51 06/15/1906/14/2018 lipid panel , serum cholesterol, total 192 mg/dL (<200) Not Available [facility] [address] [place], [address], 06/14/2018 15:24:52 06/15/1906/14/2018 lipid panel , serum triglyceride 190 mg/dL (<150) high Not Available [facility] [address] [place], [address], 06/14/2018 15:24:52 06/15/1906/14/2018 lipid panel , serum HDL chol 59 mg/dL (>39) Not Available [facility] [address] [place], [address], 06/14/2018 15:24:52 06/15/1906/14/2018 lipid panel , serum LDL cholesterol, calculated 95 mg/dL (0-130 ) Not Available [facility] [address] [place], [address], 06/14/2018 15:24:52 06/15/1906/14/2018 lipid panel , serum non HDL cholesterol (calc) 133 mg/dL (<160) Not Available [facility] [address] [place], [address], 06/14/2018 15:24:52 06/15/1906/14/2018 magne sium, serum or [...] Available [facility] [address] [place], [address], 06/14/2018 15:24:53 06/15/19 19 06/14/2018 CK (raymond lincoln), total , serum CK,total only 75 U/L (0-190 ) Not Available [facility] [address] [place], [address], 06/14/2018 15:24:54 06/15/19 19 06/14/2018 TSH, serum or plasm a TSH 0.89 mIU/m L (0.40- 4.00) Not Available [facility] [address] [place], [address], 06/14/2018 15:37:23 05/16/19 18 elect rocar diogr [...] ce of an acute proces s. WSN: [id number] Dictat ed By: Delonte Barrios MD Dictat ed Date/T erlinda: 10:26 a Review ed By: Delonte Barrios MD Signed By: Delonte Barrios MD Signed Date/T erlinda: 10:26 am Transc ribed By: CSB Transc ribed Date/T erlinda: 10:24 am Patien t Class: Outpat [facility] (Outpt Imaging) [address] [place], [address], 06/15/2018 15:07:23 06/15/19 19 06/14/2018 XR, lumba [...] ce of an acute proces s. WSN: [id number] Dictat ed By: Delonte Barrios MD Dictat ed Date/T erlinda: 10:26 a Review ed By: Delonte Barrios MD Signed By: Delonte Barrios MD Signed Date/T erlinda: 10:26 am Transc ribed By: PASTORA Transc ribed Date/T relinda: 10:24 am Patien t Class: Outpat ient [facility] (Outpt Imaging) [address] [place], [address], 06/15/2018 15:07:23 Result Notes None recorded. Problems Name Problem SNOMED Code Status Onset Date Resolution Date Notes Provider Name and Address Organization Details Recorded Time Anemia due to chronic blood loss 266180756 Completed 201108/23/2013 RECORDED 10/31/19 12 2:42PM BY NICKY WOODS ON/ADDEN TORIE rosario [facility] 6 11:38:21 Anxiety state 195133462 Active 2012 Becky Norton MA null, [facility] 7 17:00:55 Tobacco user [id number] Completed 201208/23/2013 RECORDED 01/28/20 13 1:17PM BY ALEXANDRE AGUILAR MA, ANNOTATI ON/ADDEN DUM Becky Norton MA null, [facility] 7 17:00:35 History of clinical finding in subject [id number] Completed 201209/17/2016 RECORDED 01/28/20 13 1:17PM BY ALEXANDRE AGUILAR MA, ANNOTATI ON/ADDEN DUM Becky Norton MA null, [facility] 7 17:01:11 Asthma 639304382 Active 2012 Becky Norton MA null, [facility] 7 17:00:52 Screenin g for malignan t neoplasm of breast Completed 201410/31/2016 Dr. Susy Ortega, negative Becky Norton MA null, [facility] 7 13:35:13 Screenin g for malignan t neoplasm of breast Completed 201108/23/2013 RECORDED 10/31/19 12 2:41PM BY JEREL WOODSATI ON/ADDEN DUM Becky Norton MA null, [facility] 7 13:35:13 Chest pain 98909535 Completed 201108/23/2013 RECORDED 10/31/19 12 2:41PM BY JEREL WOODSATI ON/ADDEN DUM Michelle Degutis null, [facility] 6 11:38:22 Screenin g for malignan t neoplasm of colon Completed 201208/23/2013 RECORDED 04/30/19 13 2:37PM BY TEA HANDY MA, ANNOTATI ON/ADDEN DUM Michelle Degutis null, [facility] 6 11:38:22 Divertic ular disease of colon 639571195 Completed 201108/23/2013 STORY: PT WAS SEEN IN OUR OFFICE 11/30/09 FOR RECTAL BLEEDING AND WAS REFERRED TO GI FOR AN EVALUATI ON. THAT EVENING EVERY TIME THE PT ATE SOMETHIN G SHE WOULD BE GOING TO THE BATHROOM TO HAVE A BM THAT WAS FILLED WITH BLOOD. AFTER A FEW TIMES THE PT TOOK HERSELF TO [facility] TO BE EVALUATE D. THE ONLY SX THAT THE PT FELT WAS BLOATING AND CRAMPING EVERYTIM E SHE ATE. PT HAD TO UNDERGO A COLONOSC OPY WITCH SHOWED THAT THE PT HAD BLEEDING COMING FROM THE ASCENDIN G,DESCEN DING, AND TRANSVER SE COLON. PT WAS LATER TRANSFER RED TO [facility] TO BE WATCHED CLOSELY. PT WAS THEN PLACED ON A LIQUID DIET UNTIL THE TIME WHERE SHE COULD TOLERATE SOLID FOOD WITH OUT PASSING A BM THAT WAS BLOODY. MEDICATI ON HAS BEEN RECONSIL ED WITH THE PT AND SHE WILL F/U WITH MGD 12/21/09 .; RECORDED 10/31/19 12 2:41PM BY NICKY WOODS ON/ADDEN DUM [place] Aziza rosario [facility] 6 11:38:21 Hemorrha ge of colon 76025679 Completed 201108/23/2013 STORY: STABLE/ STILL ANEMIC; RECORDED 10/31/19 12 2:41PM BY NICKY WOODS ON/ADDEN DUM Michelle Aziza rosario [facility] 6 11:38:22 Divertic ulitis of colon 338221174 Active 2011 Becky rosario [facility] 7 17:00:37 Dysuria 69812403 Completed 201108/23/2013 IMPRESSI ON: 3+ LEUKOCYT ES ON UA TODAY, COMPLETE D BACTRIM 2 DAYS AGO, START CIPRO AND SEND CULTURE; RECORDED 10/31/19 12 2:41PM BY NICKY WOODS ON/ADDEN DUM Becky rosario [facility] 7 17:01:13 Gastroes ophageal reflux disease 041553215 Active 2012 Becky rosario, [facility] 7 17:00:59 Essentia l hyperten julisa 48834052 Active 2012 Becky rosario, [facility] 7 17:01:17 Essentia l hyperten julisa 52016632 Completed 201108/23/2013 RECORDED 10/31/19 12 2:41PM BY JEREL WOODSATI ON/ADDEN DUM Becky rosario, [facility] 7 17:01:17 External hemorrho ids 40942773 Active 2012 Becky rosario, [facility] 7 17:01:03 Influenz a vaccine needed [id number] 06 Completed 201208/23/2013 RECORDED 04/30/19 13 2:37PM BY TEA HANDY MA, ANNOTATI ON/ADDEN DUM Michelle Aziza [facility] 6 11:38:22 Follow-u p encounte r Completed 201208/23/2013 RECORDED 04/30/19 13 2:37PM BY TEA HANDY MA, ANNOTATI ON/ADDEN DUM [facility] 6 11:38:22 Tobacco user [id number] Active 2012 Becky rosario [facility] 7 17:00:35 Adult health examinat ion Completed 201209/17/2016 STORY: COLONOSC OPY DUE 2016/ SS/TUBUL AR ADENOMA; RECORDED 01/28/20 13 1:58PM BY RICARDO COLE MD, OFFICE VISIT Becky rosario [facility] 7 17:01:05 Adult health examinat ion Completed 201208/23/2013 RECORDED 04/30/19 13 2:37PM BY TEA HANDY MA, ANNOTATI ON/ADDEN DUM Becky rosario [facility] 7 17:01:05 Hearing loss [id number] Active 2012 Becky rosario [facility] 7 17:00:40 History of Malignan t melanoma [id number] Active 2013 Becky rosario [facility] 7 17:00:45 Hypo-osm olality and or hyponatr emia [id number] Completed 201108/23/2013 RECORDED 10/31/19 12 2:41PM BY VIOLA MOLINA I ANNOTATI ON/ADDEN DUM Michelle Antoniohermelindaedouard [facility] 6 11:38:21 Impacted cerumen [id number] Completed 201208/23/2013 RECORDED 01/28/20 13 1:17PM BY ALEXANDRE AGUILAR MA, ANNOTATI ON/ADDEN DUM Becky rosario [facility] 7 17:00:46 Irritabl e bowel syndrome [id number] Active 2012 Becky rosario [facility] 7 17:00:31 Renewal of prescrip tion Completed 201208/23/2013 RECORDED 04/30/19 13 2:37PM BY TEA HANDY MA, ANNOTATI ON/ADDEN DUM Michelle Ervin [facility] 6 11:38:22 Malignan t melanoma of skin [id number] Active 2013 Becky rosario [facility] 7 17:01:28 Active or passive immuniza tion Completed 200908/23/2013 RECORDED 03/01/19 10 9:56AM BY PILLO Masters NP, OFFICE VISIT Michelle Antoniousha abraham [facility] 6 11:38:22 Examinat ion for suspecte d mental disorder Completed 201108/23/2013 RECORDED 10/31/19 12 2:41PM BY NICKY WOODS ON/[facility] Degutis null, [facility] 6 11:38:22 Pre-surg girish evaluati on Completed 201208/23/2013 IMPRESSI ON: PT IS MEDICALL Y ABLE TO UNDERGO SURGERY, NO ACTIVE ISSUES, IS ABLE TO LAY FLAT AND STILL, EKG NL AND WILL GET LABS; RECORDED 01/28/20 13 1:17PM BY ALEXANDRE AGUILAR MA, ANNOTATI ON/[facility] Degutis null, [facility] 6 11:38:22 Tachycar wesley [id number] Completed 201108/23/2013 RECORDED 10/31/19 12 2:42PM BY NICKY WOODS ON/[facility] Degutis null, [facility] 6 11:38:22 Retentio n of urine 223288587 Completed 201208/23/2013 RECORDED 04/30/19 13 2:37PM BY TEA HANDY MA, ANNOTATI ON/[facility] Degutis null, [facility] 6 11:38:22 Urinary tract infectio us disease 12901308 Active 2013 Becky rosario, [facility] 7 17:01:20 Vaginiti s and vulvovag initis Completed 201108/23/2013 IMPRESSI ON: VAGINAL ITCHING AFTER COMPLETI NG ANTIBIOT ICS; RECORDED 10/31/19 12 2:42PM BY NICKY WOODS ON/[facility] Degutis null, [facility] 6 11:38:22 Impacted cerumen 44350467 Completed 09/17/2016 Becky rosario, [facility] 7 17:00:46 Hyponatr emia 83968408 Completed 09/04/2017 Dilshad Hall MD [address] [address], [facility] [place], [address] , [facility] 8 06:00:03 Anemia due to chronic blood loss 013336419 Completed 201109/15/2013 RECORDED 10/31/19 12 2:42PM BY VIOLA MOLINA I ANNOTATI ON/ADDEN DUM Michelle Degutis null, [facility] 6 11:38:21 Tobacco user [id number] Completed 201209/15/2013 RECORDED 01/28/20 13 1:17PM BY ALEXANDRE AGUILAR MA, ANNOTATI ON/ADDEN DUM Becky Norton MA null, [facility] 7 17:00:35 Chest pain 45577294 Completed 201109/15/2013 RECORDED 10/31/19 12 2:41PM BY VIOLA MOLINA I ANNOTATI ON/ADDEN DUM Michelle Degutis null, [facility] 6 11:38:22 Screenin g for malignan t neoplasm of colon Completed 201209/15/2013 RECORDED 04/30/19 13 2:37PM BY TEA HANDY MA, ANNOTATI ON/ADDEN DUM Michelle Degutis null, [facility] 6 11:38:22 Divertic ular disease of colon 590672489 Completed 201109/15/2013 STORY: PT WAS SEEN IN OUR OFFICE 11/30/09 FOR RECTAL BLEEDING AND WAS REFERRED TO GI FOR AN EVALUATI ON. THAT EVENING EVERY TIME THE PT ATE SOMETHIN G SHE WOULD BE GOING TO THE BATHROOM TO HAVE A BM THAT WAS FILLED WITH BLOOD. AFTER A FEW TIMES THE PT TOOK HERSELF TO [facility] TO BE EVALUATE D. THE ONLY SX THAT THE PT FELT WAS BLOATING AND CRAMPING EVERYTIM E SHE ATE. PT HAD TO UNDERGO A COLONOSC OPY PATTIO SHOWED THAT THE PT HAD BLEEDING COMING FROM THE ASCEND[place] G,DESCEN DING, AND TRANSVER SE COLON. PT WAS LATER TRANSFER RED TO [facility] TO BE WATCHED CLOSELY. PT WAS THEN PLACED ON A LIQUID DIET UNTIL THE TIME WHERE SHE COULD TOLERATE SOLID FOOD WITH OUT PASSING A BM THAT WAS BLOODY. MEDICATI ON HAS BEEN RECONSIL ED WITH THE PT AND SHE WILL F/U WITH MGD 12/21/09 .; RECORDED 10/31/19 12 2:41PM BY NICKY WOODS ON/ADDEN DUM Michelle Palmaedouard rosario [facility] 6 11:38:21 Hemorrha ge of colon 40130670 Completed 201109/15/2013 STORY: STABLE/ STILL ANEMIC; RECORDED 10/31/19 12 2:41PM BY NICKY WOODS ON/ADDEN DUM Michelle Antonioutis null, [facility] 6 11:38:22 Dysuria 42901976 Completed 201109/15/2013 IMPRESSI ON: 3+ LEUKOCYT ES ON UA TODAY, COMPLETE D BACTRIM 2 DAYS AGO, START CIPRO AND SEND CULTURE; RECORDED 10/31/19 12 2:41PM BY NICKY WOODS ON/ADDEN DUM Becky Norton [place] abraham [facility] 7 17:01:13 Influenz a vaccine needed [id number] 06 Completed 201209/15/2013 RECORDED 04/30/19 13 2:37PM BY TEA HANDY MA, ANNOTATI ON/ADDEN DUM Michelle Ervin abraham, [facility] 6 11:38:22 Follow-u p encounte r Completed 201209/15/2013 RECORDED 04/30/19 13 2:37PM BY TEA HANDY MA, ANNOTATI ON/ADDEN DUM Michelle Antoniousha rosario, [facility] 6 11:38:22 Hypo-osm olality and or hyponatr emia 951274545 Completed 201109/15/2013 RECORDED 10/31/19 12 2:41PM BY NICKY WOODS ON/ADDEN DUM Michelle Antonioutis null, [facility] 6 11:38:21 Impacted cerumen 67498753 Completed 201209/15/2013 RECORDED 01/28/20 13 1:17PM BY ALEXANDRE AGUILAR MA, ANNOTATI ON/ADDEN DUM Becky Norton MA null, [facility] 7 17:00:46 Renewal of prescrip tion Completed 201209/15/2013 RECORDED 04/30/19 13 2:37PM BY TEA HANDY MA, JERELATI ON/ADDEN DUM Michelle Degutis null, [facility] 6 11:38:22 Active or passive immuniza tion Completed 200909/15/2013 RECORDED 03/01/19 10 9:56AM BY PILLO Masters NP, OFFICE VISIT Michelle Pacoutis null, [facility] 6 11:38:22 Examinat ion for suspecte d mental disorder Completed 201109/15/2013 RECORDED 10/31/19 12 2:41PM BY NICKY WOODS ON/[facility] DUM Michelle Degutis null, [facility] 6 11:38:22 Pre-surg girish evaluati on Completed 201209/15/2013 IMPRESSI ON: PT IS MEDICALL Y ABLE TO UNDERGO SURGERY, NO ACTIVE ISSUES, IS ABLE TO LAY FLAT AND STILL, EKG NL AND WILL GET LABS; RECORDED 01/28/20 13 1:17PM BY ALEXANDRE AGUILAR MA, JERELATI ON/[facility] DUM Michelle Degutis null, [facility] 6 11:38:22 Tachycar wesley [id number] Completed 201109/15/2013 RECORDED 10/31/19 12 2:42PM BY JEREL WOODSATI ON/ADDEN DUM Michelle Degutis null, [facility] 6 11:38:22 Retentio n of urine 320999928 Completed 201209/15/2013 RECORDED 04/30/19 13 2:37PM BY TEA HANDY MA, ANNOTATI ON/ADDEN DUM Michelle Degutis null, [facility] 6 11:38:22 Vaginiti s and vulvovag initis Completed 201109/15/2013 IMPRESSI ON: VAGINAL ITCHING AFTER COMPLETI NG ANTIBIOT ICS; RECORDED 10/31/19 12 2:42PM BY NICKY WOODS ON/ADDEN DUM Michelle Degutis null, [facility] 6 11:38:22 Anemia due to chronic blood loss 910522925 Completed 201109/16/2013 RECORDED 10/31/19 12 2:42PM BY JEREL WOODSATI ON/ADDEN DUM Michelle Degutis null, [facility] 6 11:38:21 Tobacco user [id number] Completed 201209/16/2013 RECORDED 01/28/20 13 1:17PM BY ALEXANDRE AGUILAR MA, ANNOTATI ON/ADDEN DUM Becky Norton MA null, [facility] 7 17:00:35 Chest pain 29322625 Completed 201109/16/2013 RECORDED 10/31/19 12 2:41PM BY JEREL WOODSATI ON/ADDEN DUM Michelle Degutis null, [facility] 6 11:38:22 Screenin g for malignan t neoplasm of colon Completed 201209/16/2013 RECORDED 04/30/19 13 2:37PM BY TEA HANDY MA, JERELATI ON/ADDEN DUM Michelle Degutis null, [facility] 6 11:38:22 Divertic ular disease of colon 490319446 Completed 201109/16/2013 STORY: PT WAS SEEN IN OUR OFFICE 11/30/09 FOR RECTAL BLEEDING AND WAS REFERRED TO GI FOR AN EVALUATI ON. THAT EVENING EVERY TIME THE PT ATE SOMETHIN G SHE WOULD BE GOING TO THE BATHROOM TO HAVE A BM THAT WAS FILLED WITH BLOOD. AFTER A FEW TIMES THE PT TOOK HERSELF TO [facility] TO BE EVALUATE D. THE ONLY SX THAT THE PT FELT WAS BLOATING AND CRAMPING EVERYTIM E SHE ATE. PT HAD TO UNDERGO A COLONOSC OPY WITCH SHOWED THAT THE PT HAD BLEEDING COMING FROM THE [place],DESCEN DING, AND TRANSVER SE COLON. PT WAS LATER TRANSFER RED TO [facility] TO BE WATCHED CLOSELY. PT WAS THEN PLACED ON A LIQUID DIET UNTIL THE TIME WHERE SHE COULD TOLERATE SOLID FOOD WITH OUT PASSING A BM THAT WAS BLOODY. MEDICATI ON HAS BEEN RECONSIL ED WITH THE PT AND SHE WILL F/U WITH MGD 12/21/09 .; RECORDED 10/31/19 12 2:41PM BY NICKY WOODS ON/ADDEN DUM Michelle Antonioutedouard rosario [facility] 6 11:38:21 Hemorrha ge of colon 41568776 Completed 201109/16/2013 STORY: STABLE/ STILL ANEMIC; RECORDED 10/31/19 12 2:41PM BY NICKY WOODS ON/ADDEN DUM Michelle Antonioutedouard rosario [facility] 6 11:38:22 Dysuria 21471635 Completed 201109/16/2013 IMPRESSI ON: 3+ LEUKOCYT ES ON UA TODAY, COMPLETE D BACTRIM 2 DAYS AGO, START CIPRO AND SEND CULTURE; RECORDED 10/31/19 12 2:41PM BY NICKY WOODS ON/ADDEN TORIE rosario [facility] 7 17:01:13 Influenz a vaccine needed [id number] 06 Completed 201209/16/2013 RECORDED 04/30/19 13 2:37PM BY TEA HANDY MA, ANNOTATI ON/ADDEN DUM Michelle rosario [facility] 6 11:38:22 Follow-u p encounte r Completed 201209/16/2013 RECORDED 04/30/19 13 2:37PM BY TEA HANDY MA, ANNOTATI ON/ADDEN DUM Michelle rosario [facility] 6 11:38:22 Hypo-osm olality and or hyponatr emia 971025486 Completed 201109/16/2013 RECORDED 10/31/19 12 2:41PM BY NICKY WOODS/CHARLIE DUM Michelle Degutis null, [facility] 6 11:38:21 Impacted odilia 57301037 Completed 201209/16/2013 RECORDED 01/28/20 13 1:17PM BY ALEXANDRE AGUILAR MA, ANNOTATI ON/ADDEN DUM Becky Cierra GALLAGHER null, [facility] 7 17:00:46 Renewal of prescrip tion Completed 201209/16/2013 RECORDED 04/30/19 13 2:37PM BY TEA HANDY MA, JERELATI ON/ADDEN DUM Michelle Degutis null, [facility] 6 11:38:22 Active or passive immuniza tion Completed 200909/16/2013 RECORDED 03/01/19 10 9:56AM BY PILLO Masters NP, OFFICE VISIT [place] Pacoutis null, [facility] 6 11:38:22 Examinat ion for suspecte d mental disorder Completed 201109/16/2013 RECORDED 10/31/19 12 2:41PM BY NICKY WOODS ON/[facility] TORIE Michelle Degutis null, [facility] 6 11:38:22 Pre-surg girish evaluati on Completed 201209/16/2013 IMPRESSI ON: PT IS MEDICALL Y ABLE TO UNDERGO SURGERY, NO ACTIVE ISSUES, IS ABLE TO LAY FLAT AND STILL, EKG NL AND WILL GET LABS; RECORDED 01/28/20 13 1:17PM BY ALEXANDRE AGUILAR MA, NICKY ON/ADDEN DUM Michelle Degutis null, [facility] 6 11:38:22 Tachycar wesley [id number] Completed 201109/16/2013 RECORDED 10/31/19 12 2:42PM BY NICKY WOODS ON/ADDEN DUM Michelle Degutis null, [facility] 6 11:38:22 Retentio n of urine 374233592 Completed 201209/16/2013 RECORDED 04/30/19 13 2:37PM BY TEA HANDY MA, ANNOTATI ON/ADDEN DUM Michelle Ervin abraham [facility] 6 11:38:22 Vaginiti s and vulvovag initis Completed 201109/16/2013 IMPRESSI ON: VAGINAL ITCHING AFTER COMPLETI NG ANTIBIOT ICS; RECORDED 10/31/19 12 2:42PM BY NICKY WOODS ON/ADDEN DUM Michelle Ervin abraham [facility] 6 11:38:22 Dermatit is Completed 09/17/2016 Becky rosario [facility] 7 17:00:48 Dysuria 96372385 Completed 09/17/2016 Becky rosario [facility] 7 17:01:13 Insomnia 728567807 Active [place] Pacohermelindaedouard abraham [facility] 6 11:38:21 Advance directiv e discusse d with patient 600817967 Completed 09/17/2016 Becky rosario [facility] 7 17:01:07 Polyp of colon 05740874 Active [place] Aziza abraham [facility] 6 11:38:21 Chronic low back pain 089443019 Active 2018 Rebeca rosario [facility] 9 14:22:51 Problem Notes None recorded. Procedures Surgical History Date Name Laterality Status Provider Name and Address Organization Details Recorded Time 01/21/20 19 Mini-Cog Test completed Leila Julien MA [facility] 01/20/2019 09:52:44 12/30/19 18 Most Recent Mammogram completed Leila Julien MA [facility] 01/20/2019 09:47:42 12/19/19 18 Mini-Cog Test completed Naheed Veliz [facility] 12/18/2017 13:13:25 12/02/19 17 Fall Risk Assessment completed Becky Norton MA [facility] 12/01/2016 13:22:35 12/02/19 17 Mini-Cog Test completed Beckybridger Norton MA [facility] 12/01/2016 13:23:31 11/29/19 17 Mammogram both breasts completed Kimmy Yañez [facility] 12/09/2016 14:44:18 10/17/19 17 Date of Last Colonoscopy completed Paola Whittakera [facility] 12/09/2016 16:54:35 10/17/19 17 Colonoscopy completed Beckybridger Norton [facility] 10/24/2016 11:43:36 03/23/19 16 Fall Risk Assessment completed Beckybridger Norton [facility] 03/23/2015 13:55:01 03/23/19 16 Mini-Cog Test completed [facility] 03/23/2015 14:02:26 03/23/19 16 Advanced Care Planning completed Beckybridger Norton [facility] 03/23/2015 13:41:44 08/19/19 15 Date of Last Pap Smear completed Michelle Ervin [facility] 03/28/2015 11:40:33 02/23/19 11 Most Recent Bone Density completed Beckybridger Norton [facility] 03/23/2015 14:07:39 02/09/19 08 Appendectomy completed Tea Handy [facility] 03/02/2014 10:46:37 Imaging Results Imaging Date Name Status LastModified by Organization Details LastModified Time 05/15/2017 electrocardiogram completed Infor mation not available 05/15/2017 12:36:53 06/14/2018 XR, sacrum + coccyx, 2 or more view active [facility] [address] [place], [address], 06/15/2018 15:07:23 06/14/2018 XR, lumbar spine active [facility] [address] [place], [address], 06/15/2018 15:07:23 Procedure Notes None recorded. Medical Equipment None Reported. Allergies Allergen ID Allergen Name Allergen Category Reaction Reaction Severity Criticality Documentation Date Start Date Code Code System Note Provider Name and Address Organization Details Recorded Time 2935 latex environme nt,medica tion rash Not available Not available 08/23/20132012 15378 91 RxNorm [facility] [place] 7 17:00:18 Medications Name Sig Start [...] Updated DateTime 8 154.94 cm 31.4 kg/m2 27230.4 3 g 98.7 [degF] 96 % 96 % 89 /min 118 mm[Hg] 76 mm[Hg] Becky Norton MA [facility] 8 11:28:28 Date Recorded Body height Body mass index (BMI) Body weight Heart rate Oxygen saturation Oxygen saturation in Arterial blood by Pulse oximetry Body temperature Systolic blood pressure Diastolic blood pressure Provider Name and Address Organization Details Last Updated DateTime 8 154.94 cm 30.8 kg/m2 44532.5 6 g 94 /min 97 % 97 % 97.5 [degF] 136 mm[Hg] 74 mm[Hg] Viola Medina [facility] 8 10:41:30 Date Recorded Body height Body mass index (BMI) Body weight Body temperature Heart rate Oxygen saturation Oxygen saturation in Arterial blood by Pulse oximetry Systolic blood pressure Diastolic blood pressure Provider Name and Address Organization Details Last Updated DateTime 8 154.94 cm 30.5 kg/m2 53685.4 7 g 97.2 [degF] 86 /min 96 % 96 % 123 mm[Hg] 72 mm[Hg] Naheed Winnignacia [facility] 8 12:57:56 Date Recorded Body height Body mass index (BMI) Body weight Heart rate Oxygen saturation Oxygen saturation in Arterial blood by Pulse oximetry Body temperature Systolic blood pressure Diastolic blood pressure Provider Name and Address Organization Details Last Updated DateTime 9 154.94 cm 30.2 kg/m2 32992.7 8 g 92 /min 96 % 96 % 98.4 [degF] 124 mm[Hg] 78 mm[Hg] Ruby Garciau [facility] 9 12:59:19 Date Recorded Body height Body mass index (BMI) Body weight Oxygen saturation Oxygen saturation in Arterial blood by Pulse oximetry Heart rate Body temperature Systolic blood pressure Diastolic blood pressure Provider Name and Address Organization Details Last Updated DateTime 9 154.94 cm 30.7 kg/m2 59328.0 6 g 96 % 96 % 81 /min 98.1 [degF] 119 mm[Hg] 67 mm[Hg] Leila Julien MA [facility] 9 09:56:35 Social History Question Answer Notes LastModified by Organizat ion Details LastModified Time Tobacco Smoking Status [facility] 09/08/2013 11:26:06 Do You Have An Advance [...] E-cigarettes Or Vape? Never Used Electronic Cigarettes [email or web address] Information not available 01/20/2019 What Is Your Occupation? [employer] Information not available 03/02/2014 Are There Any [...] Used Smokeless Tobacco? Never Used Smokeless Tobacco [email or web address] Information not available 01/20/2019 How Much Tobacco Do You Smoke? 1 PPW [email or web address] Information not available 01/20/2019 General Stress Level [...] virus, quadrivalent, PF 5 completed Becky rosario [facility] 03/23/2015 14:06:48 Influenza, high-dose, trivalent, PF 7 completed Not Available [facility] 02/26/2019 02:22:21 Novel [id number], all formulations 0 completed Not Available [facility] 08/23/2013 13:38:52 pneumococcal polysaccharide PPV23 0 completed Not Available [facility] 08/23/2013 13:38:52 Influenza, split virus, trivalent, preservative 0 completed Not Available [facility] 08/23/2013 13:38:52 Influenza, split virus, trivalent, preservative 1 completed Not Available [facility] 08/23/2013 13:38:52 Influenza, split virus, trivalent, preservative 2 completed Not Available [facility] 08/23/2013 13:38:52 Influenza, split virus, trivalent, preservative 3 completed Not Available [facility] 08/23/2013 13:38:52 Influenza, high-dose, trivalent, PF 8 completed Not Available [facility] 02/26/2019 02:22:14 Influenza, high-dose, trivalent, PF 9 completed Not Available [facility] 02/26/2019 02:22:09 Past Encounters Encounter ID Performer Location Encounter Start Date Encounter Closed Date Diagnosis/Indication Diagnosis SNOMED-CT Code Diagnosis ICD10 Code [id number] [facility] Main Office [address] [facility] [address] [place] [address] 09/08/2013 11:14:56 09/08/2013 11:58:13 Essential hypertension 47124955 Asthma 235882384 Anxiety state 865495137 [facility] cerumen 5660016 6 [id number] [employer] [facility] [address] [facility] [place] [address] 03/01/2009 00:00:00 [id number] [employer] [address] [facility] [place] [address] 03/29/2009 00:00:00 [id number] [employer] [address] [facility] [place] [address] 09/10/2009 00:00:00 [id number] [facility] [facility] [address] [place] [address] 11/13/2009 00:00:00 [id number] [facility] [facility] [address] [place] [address] 11/30/2009 00:00:00 [id number] [facility] [address] [place] [address] 12/21/2009 00:00:00 [id number] [employer] [facility] [address] [place] [address] 02/11/2010 00:00:00 [id number] [facility] [facility] [address] [place] [address] 05/17/2010 00:00:00 [id number] [employer]ce [address] [facility] [place] [address] 08/23/2010 00:00:00 [id number] [employer] [address] [facility] [place] [address] 09/04/2010 00:00:00 [id number] auto[employer] erce [address] [facility] [address] [place] [address] 11/29/2010 00:00:00 [id number] [employer] [address] [facility] [place] [address] 01/10/2011 00:00:00 [id number] [employer] [address] [facility] [place] [address] 05/02/2011 00:00:00 [id number] [employer] erce [address] [facility] [place] [address] 10/31/2011 00:00:00 [id number] [employer] [address] [facility] [place] [address] 04/29/2012 00:00:00 [id number] auto[employer] erce [address] [facility] [place] [address] 07/15/2012 00:00:00 [id number] [employer] erce [address] [facility] [address] [place] [address] 01/27/2013 00:00:00 [id number] Tea Atwood Main Office [address] [facility] [address] [place] [address] 09/26/2013 13:41:44 09/26/2013 14:55:33 Dermatitis 065311056 [id number] [facility] Main Office [address] [facility] [place] [address] 03/02/2014 12:39:53 03/02/2014 13:42:38 Essential hypertension 31249319 Hyponatremia 81494023 Anxiety state 235931077 Dysuria 46851936 [id number] Becky Norton [place] Main Office [address] [address] [place] [address] 04/21/2014 14:46:19 04/21/2014 15:48:33 Essential hypertension 42460706 Gastroesop hageal reflux disease 537877072 Anxiety state 152798405 Asthma 176178298 [id number] Ricardo medellin Main Office [address] [address] [place] [address] 03/23/2015 13:27:48 03/23/2015 14:47:01 Adult health examination 935005026 Z00.00 At [facility] ed risk for falls 042670919 Z91.81 Advance di rective discussed with patient 632191651 Z71.89 Essential hypertension 82981266 I10 Polyp of colon 02995304 K63.5 Asthma 599520956 J45.90 9 Anxiety state 497464799 F41.1 [id number] Ricardo medellin Main Office [address] [address] [place] [address] 10/05/2015 12:46:12 10/05/2015 13:40:50 Essential hypertension 27868767 I10 Asthma 267805413 J45.90 9 Anxiety state 354216835 F41.1 [id number] Ricardo medellin Main Office [address] [address] [place] [address] 06/19/2016 12:55:50 06/19/2016 14:13:50 Fatigue 26960733 R53.83 Abnormal weight loss 267 862049 R63.4 Diarrhea 89187124 R19.7 Nausea 461692213 R11.0 Impaired f asting glycemia 776418203 R73.01 [id number] Ricardo medellin Main Office [address] [address] [place] [address] 10/23/2016 14:30:06 10/23/2016 15:27:24 [id number] Ricardo medellin Main Office [address] [address] [place] [address] 10/31/2016 13:21:48 10/31/2016 14:41:18 Lumbosacral radiculitis 81639780 M54.17 Influenza vaccine needed 5099885007 106 Z23 [id number] Ricardo medellin Main Office [address] [address] [place] [address] 12/01/2016 13:04:53 12/01/2016 14:09:38 Adult health examination 835465953 Z00.00 Essential hypertension 53898988 I10 Anxiety state 789429954 F41.1 [id number] Ricardo medellin Main Office [address] [address] [place] [address] 05/15/2017 11:16:16 05/15/2017 12:12:51 Anxiety state 175672648 F41.1 Essential hypertension 04671315 I10 Incomplete emptying of urinary bladder 365162596 R39.14 [id number] Maryanne fernandes Main Office [address] [address] [place] [address] 11/13/2017 10:36:20 11/13/2017 11:18:17 Anxiety state 126455234 F41.1 Influenza vaccine needed 9399030389 106 Z23 Gastroesop hageal reflux disease 281009742 K21.9 Essential hypertension 64321202 I10 [id number] Ramon Callahan MD Main Office [address] [address] [place] [address] 12/18/2017 12:40:39 12/18/2017 13:46:58 Adult health examination 646168074 Z00.00 Varicella vaccination 68 480390 Z23 Asthma 181865146 J45.90 9 Essential hypertension 46950948 I10 Family his tory of Hypercholesterolemia 295570286 Z83.49 Anxiety state 215839665 F41.1 [id number] [facility] [address] [facility] [address] [place] [address] 06/11/2018 12:42:51 06/11/2018 13:40:40 Low back pain 132517258 M54.5 Cramp in lower limb 4499 35039 R25.2 Essential hypertension 06379599 I10 Fatigue 11063843 R53.83 [id number] [facility] [address] [facility] [address] [place] [address] 01/20/2019 09:41:15 01/20/2019 10:33:29 Adult health examination 346244070 Z00.00 Influenza vaccine needed 3387852694 106 Z23 Impaired f asting glycemia 413951752 R73.01 Hyperlipidemia 53428474 E78.5 Health Concerns Section Related Observation LastModified by Organization Detai ls LastModified Time None Recorded Concern Status LastModified by Organization Details LastModified Time None Recorded Advance Directives Directive Y: Payers Encounter Date Sequence Insurance Name Policy Number Policy Menendez Covered Member ID Menendez Member ID Guarantor Name 05/15/2017 2 [place] [id number] Noris E Oparowski [id number] Noris E Oparowski 05/15/2017 1 [place] [employer] Noris E Oparowski [id number] Noris E Oparowski 11/13/2017 2 [place] [id number] Noris E Oparowski [id number] Noris E Oparowski 11/13/2017 1 [place] [employer] Noris E Oparowski [id number] Noris E Oparowski 12/18/2017 2 [place] [id number] Noris E Oparowski [id number] Noris E Oparowski 12/18/2017 1 [place] [employer] Noris E Oparowski [id number] Noris E Oparowski 06/11/2018 2 [place]) [id number] Noris E Oparowski [id number] Noris Hou 06/11/2018 1 MEDICARE [place]: [employer] Noris Hou [id number] Noris Hou 01/20/2019 2 [place] (MEDICARE SUPPLEMENT) [id number] Noris Hou [id number] Noris Hou 01/20/2019 1 MEDICARE [place]: [facility] Noris Hou [id number] Noris Hou Notes Date Note Type Note Provider Name and Address Organization Details Recorded Time 05/15/2017 text/html Anxiety/Depressi onRepo rted bypatient.Quality:incr eased anxiety; pt reports that sthe plans to return to her pschologist Dr Valdes this year Severity:able to maintain relationships Associated Symptoms:no significant weight gain; mood good; 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 , > 20 [...] no fever;incomplete emptying of bladder Ricardo rosario [facility] 05/15/2017 12:16:47 11/13/2017 text/html Anxiety/Depressi onRepo rted bypatient.Quality:incr eased anxiety; stress, car trouble Severity:able to maintain relationships Context:major life stressors;family problems Associated Symptoms:no significant weight gain;high irritability;hostility ;anxiety;hypersensitiv ity;anxiety with muscle tension; 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 DR saw Dr. Miller at [facility]. Was discharged in 2017 due to improvement with PT. 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 Since the fall her back pain is worse. Denis Marcos[address], [address], [facility] 06/11/2018 13:40:34 01/20/2019 text/html Medicare Annual Wellness [...] states she found a new PCP in [place] but cannot be seen until May. [facility] [address] [address], [place], [address], [facility] 01/20/2019 10:57:40 OBGyn Episode No OBEpisode recorded.
[2024-02-11 10:01] LABS: Prothrombin Time Whole Bld POC 22.3 sec (11.1-13.5); ~PT, ~INR - Anti Coag Clinic 1.9 (0.9-1.1)
--- NOTE | 2024-02-11 10:06 | MHC.OFFVISCO ---
Intake Intake Visit Reasons: Anticoagulation Casing Running Machine Tender Required: No Allergies Seasonal Allergies Allergy (Mild, Verified 02/11/24 10:02) runny nose latex Allergy (Verified 02/11/24 10:00) rash Medication List - Last Reconciled 02/11/24 by Anabella Otoole RN albuterol sulfate 90 mcg/actuation 2 puffs inhalation Q8H PRN cetirizine (Zyrtec) 10 mg PO DAILY PRN cholecalciferol (vitamin D3) 50 mcg PO DAILY citalopram 20 mg PO DAILY 90 days clonazepam 0.5 mg PO BID PRN diltiazem HCl CD 120 mg PO DAILY 90 days fluticasone propion-salmeterol 500-50 mcg/dose (Wixela Inhub) 1 inh inhalation BID fluticasone propionate 50 mcg/actuation (Flonase Allergy Relief) 1 spray intranasal Q12H 30 days gabapentin 300 mg PO BID hydroxyzine HCl 10 mg PO TID PRN lisinopril 10 mg PO DAILY omeprazole 20 mg PO DAILY tamsulosin 0.4 mg PO BEDTIME 90 days warfarin 2 mg See Protocol PO DAILY 30 days Is last menstrual period known: No Post menopausal: Yes (age 50s HX of fibroids ) Patient : Yes (lives in [place]) Nursing Note New pt on warfarin early this year 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 She just resumed warfarin x 2 days and reduced eliquis to once daily due to nose bleeds and itching, since Eliquis dose decreased the itching is starting to subside and no nose bleed today,she ate asparagus yesterday. She is having a renal work up. Eats fruits and vegetables Drinks 2 glasses of wine/ day - risk of ETOH discussed to limit the amt as much as possible due to increased risk of bleeding Education provided with education packet with good verbal understanding. INR 1.9 out of therapeutic range Medications and supplements reviewed Patient status: A+O x 3 resp easy unlabored and clear bilat, has bruising on arms from scratching, right leg edema per pt - not sure what from - no clot, having renal work up, wears compression sock, gait steady, hx of falls - fx shoulder last year, going for physical therapy in [place] to help maintain strength and balance, Medications or supplements: reviewed and up to date, stopping eliquis today due to rash Diet: eats a mix of fruits and vegetables Denies any signs and symptoms of bleeding or clotting or unusual bruising Bleeding, bruising, clotting discussed Nutritional guidance given: cont to eat a mix of fruits and vegetables, skip greens today- because INR just 1.9 but then resume usual diet Dose: she had 3mg tue 2mg wed she will now have a tentative dose of 1mg x 5 days, 2mg x 2 days F/U INR Date : 02/15/2024? Patient verbalizing understanding of instructions given. 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 r/t current occupational exposures/hazards: No Fall risk assessment: 1 Fall in past year (left shoulder fracture from fall over a ice chunk ) Cardiovascular Hx: HTN and Other (edma right foot > left foot had dvt ) Lung Disease HX: Asthma, COPD (believe r/t to work exposure and smoking) and DVT/PE (2022 after having RSV and covid vaccines- pt feels r/t to vaccines also ) Endocrine Hx: Diabetes (being monitored ) Musculoskeletal Hx: Arthritis (mostly hand - all over, ) GI Hx: Bleeding (GI, rectal) (age 60s x 2 weeks 10 blood transfusions no found cause at the time - and none since then ) and Diverticulosis Hx: Bladder Disorders (URGENCY ) and Other (UPCOMING RENAL EVALUATIONS ) 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 Anti-Coag. Education Record Teaching Recipient: Patient What is the easiest way to learn: Reading, Listening and Education Packet List any additional concerns (family/financial etc.): ETOH and anxiety Significant other who can be involved in Teaching Process when Indicated: Niece- Dagmar Gonzalez assists with her care [phone] Casing Running Machine Tender Required: No Readiness To Learn: Excellent Teaching Methods: Audiovisual, Discussion, Handout and Teach Back Response to Teaching: Verbalize Understanding Education Intervention/Brief Description of Teaching 1. Able to state reason for taking Warfarin: Yes 2. Able to state Pain Management techniques: Yes 3. Able to state action of Warfarin.: Yes Able to state current dose, pill color, how and when Warfarin to be taken: Yes Able to identify signs of bleeding &/or clotting: Yes 4. Able to identify need to keep diet consistent in regard to vitamin K intake: Yes Able to state restriction on alcohol: Yes 5. Able to state need for compliance with PT/INR testing: Yes Describes rationale for carrying ID and wearing Medic Alert bracelet: Yes Patient instructed to monitor for excess bruising or signs/symptoms of clotting or bleeding: Yes 6. Able to state that there are drugs that interact with Warfin: Yes 7. Able to state the need to seek medical attention when illness/injury occur.: Yes Describes the need to avoid activities with high risk of injury: Yes 8. Able to state duration of treatment: Yes 9. Demonstrates understanding of notifying all providers of pending dental surgical, or other invasive procedures: Yes 10. Able to state Home Care instructions Questionnaires HAS-BLED Does the patient had uncontrolled Hypertension?: No Does the patient have renal disease?: No Does the patient have liver disease?: No Does the patient have a history of stroke?: No Has the patient had major bleeding or predisposition to bleeding?: Yes (massive GI bleed unfounded per pt Years ago ) Does the patient have labile INRs?: Yes (hx of labile INRs while on warfarin 1 year ago - may have r/t her healing ) Is the patient over 65 years of age?: Yes Is the patient on medications that gives them a predisposition to bleeding?: Yes Does the patient use alcohol?: Yes HAS-BLED Score: 5 CHADSVASC Age: 75 or over Gender: Female Does the patient have a history of CHF?: No Does the patient have a history of Hypertension?: Yes Does the patient have a history of Stroke/TIA/Thromboembolism?: Yes (dvt/ pe 2022) Does the patient have a history of Vascular Disease (prior MO, PAD or aortic plaque)?: No Does the patient have a history of Diabetes?: No (but states she is boaderline managing with diet ) CHADS VACS Score: 6 Anton Prediction Score Rsk VTE Active Cancer: No Previous VTE, excluding superficial vein thrombosis: No Reduced mobility: No Already known Thrombophilic Condition: No With-in last month Trauma and/or Surgery: No Elderly 70 year or older: Yes Heart and/or Respiratory Failure: No Acute Myocardial infarction and/or Ischemic Stroke: No Acute Infection and/or Rheumatologic Disorder: No Obesity (BMI 30 or greater): Yes Score: 2 Anton Score less than 4; Low Risk of VTE Anton Score 4 or greater; High Risk of VTE Coding Level of Care Code New Patient Level 2 Diagnoses Current use of anticoagulant therapy Z79.01 Time Spent (min) 75 Comment New pt education Assessment & Plan Assessment & Plan (1) Current use of anticoagulant therapy: Code(s): Z79.01 - alf (current) use of anticoagulants Category: Medical
== END 2024-02-11 12:21 | disposition home or self-care (01) ==
LOC: HO.ACS 09:37
PROVIDERS: PCP Family Medicine; Visit Provider Internal Medicine
DX: Z79.01 Long term (current) use of anticoagulants (principal)

== ENCOUNTER → 2024-02-11 09:37 | Outpatient (BNVA) | payer MEDICARE, SELFPAY | PROVIDERS: PCP Family Medicine; Visit Provider Internal Medicine | DX: I26.94 Multiple subsegmental thrombotic pulmonary emboli without acute cor pulmonale (principal); Z86.718 Personal history of other venous thrombosis and embolism; Z79.01 Long term (current) use of anticoagulants; Z51.81 Encounter for therapeutic drug level monitoring | CPT/HCPCS: 85610; 99202 ==

== ENCOUNTER → 2024-02-15 09:26 | Outpatient (BNVA) | payer MEDICARE, MEDICAID, SELFPAY | PROVIDERS: PCP Family Medicine; Visit Provider Family Medicine | DX: I26.94 Multiple subsegmental thrombotic pulmonary emboli without acute cor pulmonale (principal); Z86.718 Personal history of other venous thrombosis and embolism; Z51.81 Encounter for therapeutic drug level monitoring; Z79.01 Long term (current) use of anticoagulants | CPT/HCPCS: 85610; 99211 ==

== ENCOUNTER 2024-02-15 10:41 | Outpatient (AMB) | payer MEDICARE, MEDICAID, SELFPAY ==
[2024-02-15 10:56] LABS: Prothrombin Time Whole Bld POC 22.5 sec (11.1-13.5); ~PT, ~INR - Anti Coag Clinic 1.9 (0.9-1.1)
--- NOTE | 2024-02-15 11:06 | MHC.OFFVISCO ---
Intake Intake Visit Reasons: Anticoagulation Allergies Seasonal Allergies Allergy (Mild, Verified 02/15/24 10:49) runny nose latex Allergy (Verified 02/15/24 10:49) rash Medication List - Last Reconciled 02/15/24 by Anabella Otoole RN albuterol sulfate 90 mcg/actuation 2 puffs inhalation Q8H PRN cetirizine (Zyrtec) 10 mg PO DAILY PRN cholecalciferol (vitamin D3) 50 mcg PO DAILY citalopram 20 mg PO DAILY 90 days clonazepam 0.5 mg PO BID PRN diltiazem HCl CD 120 mg PO DAILY 90 days fluticasone propion-salmeterol 500-50 mcg/dose (Wixela Inhub) 1 inh inhalation BID fluticasone propionate 50 mcg/actuation (Flonase Allergy Relief) 1 spray intranasal Q12H 30 days gabapentin 300 mg PO BID hydroxyzine HCl 10 mg PO TID PRN lisinopril 10 mg PO DAILY omeprazole 20 mg PO DAILY tamsulosin 0.4 mg PO BEDTIME 90 days warfarin 2 mg See Protocol PO DAILY 30 days Nursing Note INR: 1.9 ALMOST in therapeutic range Medications and supplements reviewed- Still off nasal flonase due to nose bleeds and using humidification Has roommate now- so she thinks she will be eating better now Denies any signs and symptoms of bleeding or bruising or clotting. Bleeding, bruising, clotting discussed Nutritional guidance given - resume usual diet Dose: increase slightly 2mg x 1 day/ 1mg x 6 days ( use to take 2mg x 3 days / 1mg x 4days- but states eat a little less now F/U INR: this week - 02/18/2024 Patient verbalizes understanding of instructions given Anti-Coag Initial Assessment Social Hx Patient Tobacco Use Status: Former Tobacco user (20 years quit around age 51 ) Tobacco use type: Cigarette Smoking packs per day: 1.0 alcohol intake: current Alcohol intake frequency: 0-2 drinks per day (about 2 daily with ice ) Cardiovascular Hx: HTN and Other (edma right foot > left foot had dvt ) Lung Disease HX: Asthma, COPD (believe r/t to work exposure and smoking) and DVT/PE (2022 after having RSV and covid vaccines- pt feels r/t to vaccines also ) Endocrine Hx: Diabetes (being monitored ) Musculoskeletal Hx: Arthritis (mostly hand - all over, ) GI Hx: Bleeding (GI, rectal) (age 60s x 2 weeks 10 blood transfusions no found cause at the time - and none since then ) and Diverticulosis Hx: Bladder Disorders (URGENCY ) and Other (UPCOMING RENAL EVALUATIONS ) Cancer 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 Illness/Depression: Yes (anxiety ) Coding Level of Care Code Est Patient Level 1 Diagnoses Current use of anticoagulant therapy Z79.01 Assessment & Plan Assessment & Plan (1) Current use of anticoagulant therapy: Code(s): Z79.01 - manager long term care (current) use of anticoagulants Category: Medical
== END 2024-02-15 11:11 | disposition home or self-care (01) ==
LOC: HO.ACS 10:41
PROVIDERS: PCP Family Medicine; Visit Provider Internal Medicine
DX: Z79.01 Long term (current) use of anticoagulants (principal)

== ENCOUNTER 2024-02-18 13:14 | Outpatient (AMB) | payer MEDICARE, MEDICAID, SELFPAY ==
[2024-02-18 13:43] LABS: Prothrombin Time Whole Bld POC 29.7 sec (11.1-13.5); ~PT, ~INR - Anti Coag Clinic 2.5 (0.9-1.1)
--- NOTE | 2024-02-18 13:43 | MHC.OFFVISCO ---
Intake Intake Visit Reasons: Anticoagulation Allergies Seasonal Allergies Allergy (Mild, Verified 02/18/24 13:31) runny nose latex Allergy (Verified 02/18/24 13:31) rash Medication List - Last Reconciled 02/18/24 by Mirella Cooley, RN albuterol sulfate 90 mcg/actuation 2 puffs inhalation Q8H PRN cetirizine (Zyrtec) 10 mg PO DAILY PRN cholecalciferol (vitamin D3) 50 mcg PO DAILY citalopram 20 mg PO DAILY 90 days clonazepam 0.5 mg PO BID PRN diltiazem HCl CD 120 mg PO DAILY 90 days fluticasone propion-salmeterol 500-50 mcg/dose (Wixela Inhub) 1 inh inhalation BID fluticasone propionate 50 mcg/actuation (Flonase Allergy Relief) 1 spray intranasal Q12H 30 days gabapentin 300 mg PO BID hydroxyzine HCl 10 mg PO TID PRN lisinopril 10 mg PO DAILY omeprazole 20 mg PO DAILY tamsulosin 0.4 mg PO BEDTIME 90 days warfarin 2 mg See Protocol PO DAILY 30 days Nursing Note INR: 2.5 in therapeutic range of 2-3 Medications and supplements reviewed No changes in health, diet, medications, or supplements, Denies any signs and symptoms of bleeding or bruising or clotting No nosebleeds recently Bleeding, bruising, clotting discussed Nutritional guidance given Dose: 1mg X 6 days and 2mg X 1 day F/U INR: 1 week Patient verbalizes understanding of instructions given Anti-Coag Initial Assessment Social Hx Patient Tobacco Use Status: Former Tobacco user (20 years quit around age 51 ) Tobacco use type: Cigarette Smoking packs per day: 1.0 alcohol intake: current Alcohol intake frequency: 0-2 drinks per day (about 2 daily with ice ) Cardiovascular Hx: HTN and Other (edma right foot > left foot had dvt ) Lung Disease HX: Asthma, COPD (believe r/t to work exposure and smoking) and DVT/PE (2022 after having RSV and covid vaccines- pt feels r/t to vaccines also ) Endocrine Hx: Diabetes (being monitored ) Musculoskeletal Hx: Arthritis (mostly hand - all over, ) GI Hx: Bleeding (GI, rectal) (age 60s x 2 weeks 10 blood transfusions no found cause at the time - and none since then ) and Diverticulosis Hx: Bladder Disorders (URGENCY ) and Other (UPCOMING RENAL EVALUATIONS ) 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 Illness/Depression: Yes (anxiety ) Coding Level of Care Code Est Patient Level 1 Diagnoses Current use of anticoagulant therapy Z79.01 Results AMB INR Fingerstick AMB INR Fingerstick 2.5 Last Edit by Mirella Cooley RN on 02/18/24 13:35 interface delay Assessment & Plan Assessment & Plan (1) Current use of anticoagulant therapy: Code(s): Z79.01 - group home (current) use of anticoagulants Category: Medical
--- OUTSIDE RECORDS SUMMARY | 2024-02-18 14:36 | XMS_ITS | Data Portability ---
Author Organization [facility], Main Office Address [address] [facility] [address] [place] [address] Care Team Providers Care Ship Scraper Name Role Phone ABDIEL ORTEGA Draw In Hand GRACIELA MILLER Urologist ABDIEL LOZANO Field Service Manager [phone] URBAN PRIDE Helminthology Teacher HUMBERTO SINGH Svp Chief Marketing Officer RICARDO HUGHES Chiropractor [facility] Physical Therapist DENIS MARCOS Primary Care Provider [phone] Assessment No assessment recorded. Plan of Treatment Reminders Order Date Submit Date Provider Last Modified By Organization Details Last Modified Time Details Appointments None recorded. Lab lipid panel, serum 2017 018 TIMOTHY [facility], [address] [place], [address], 9 15:24:52 CMP, serum or plasma 2017 018 toni [facility], [address] [place], [address], 9 11:56:02 magnesium , serum or plasma 2018 019 TIMOTHY [facility], [address] [place], [address], 9 15:24:53 CK (creatine kinase), total, serum 2018 019 TIMOTHY [facility], [address] [place] [place], [address], 9 15:24:54 CBC w/ auto diff 2018 019 TIMOTHY [facility], [address] [place], [address], 9 13:55:52 CMP, serum or plasma 2018 019 TIMOTHY [facility], [address] [place], [address], 9 15:24:51 TSH, serum or plasma 2018 019 TIMOTHY [facility], [address] [place], [address], 9 15:37:23 HbA1c (hemoglob in A1c), blood 2018 019 [facility], [address] [place], [address], 0 09:38:13 BMP, serum or plasma 2018 019 [facility], [address] [place], [address], 0 09:38:13 lipid panel, serum 2018 019 [facility], [address] [place], [address], 0 09:38:13 Referral urologist referral - pt has not seen urology in 2 years or more and wants to have consultat ion w/ urologist rather than SEAM FINISHER 2017 018 scott Crane MD, [address], [place], [address], 8 13:35:13 physical therapist referral - At risk for falling 2017 018 [facility], [address], [place], [address], 8 16:26:43 spine center referral - patient in 2017, MRI showed crowding L2 nerve root on the left, having worsenign sx of sciatic pain, low back pain, leg pains bilateral ly. 2018 019 isaías [facility], [address] [place] [address], [id number], 9 17:23:40 Procedures None recorded. Surgeries None recorded. Imaging XR, lumbar spine - chronic low back pain, worsening s/p fall in february [id number] 019 [facility], [address] [place] [address], [address], 9 10:29:46 XR, sacrum + coccyx - s/p fall in february, hx low back arthritis . pain worsening 2018 019 [facility], [address] [place] [address], [address], 9 10:29:44 Medication Orders tamsulosi n 0.4 mg capsule 2017 018 [id number], [address] [place], [address], 8 13:01:14 clorazepa te dipotassi um 3.75 mg tablet 2017 018 INTERFACE [facility], [address] [place], [address], 8 12:05:21 clorazepa te dipotassi um 3.75 mg tablet 2017 018 INTERFACE [facility], [address] [place], [address], 8 11:18:58 Patient TargetsNo targets recorded. Patient Instructions Encounter Date Encounter Id Patient Instructions Last Modified By Organization Details Last Modified Time 11/13/2017 [id number] anxiety disorder: care instructions [email or web address] Not available 11/13/2017 11:18:44 call or return for worsening or concerns. [email or web address] Not available 11/13/2017 11:13:19 I have reviewed the note and agree with the assessment and plan of care. [email or web address] Not available 11/13/2017 12:41:01 12/18/2017 [id number] preventing falls: care instructions [email or web address] Not available [...] medication. [email or web address] Not available 12/18/2017 13:20:44 06/11/2018 [id number] low back pain: exercises [email or web address] Not available 06/11/2018 13:24:20 call or return for worsening or concerns. [email or web address] Not available 06/11/2018 13:22:08 01/20/2019 [id number] preventing falls: care instructions [email or web address] Not available [...] of risk and benefits, and of OUD. [email or web address] Not available 01/20/2019 09:46:37 Reason for Referral Urologist Referral for Incom plete emptying of urinary bladder pt has not seen urology in 2 years or more and wants to have consultation w/ urologist rather than SEAM FINISHER Referring Physician: Ricardo Dhillon, Internal Medicine, Encounter [...] Available [facility] [address] [place], [address], 09/11/2017 22:27:42 09/12/19 18 09/11/2017 CBC w/ auto diff RBC 4.68 M/mm3 (4.20- 5.40) Not Available [facility] [address] [place], [address], 09/11/2017 22:27:42 09/12/19 18 09/11/2017 CBC w/ auto diff HGB 14.7 gm/dL (11.7- 15.5) Not Available [facility] [address] [place], [address], 09/11/2017 22:27:42 09/12/19 18 09/11/2017 CBC w/ auto diff HCT 43.2 % (35.7- 45.8) Not Available [facility] [address] [place], [address], 09/11/2017 22:27:42 09/12/19 18 09/11/2017 CBC w/ auto diff MCV 92.3 fL (80.0- 100.0) Not Available [facility] [address] [place], [address], 09/11/2017 22:27:42 09/12/19 18 09/11/2017 CBC w/ auto diff MCH 31.4 pg (27.0- 34.0) Not Available [facility] [address] [place], [address], 09/11/2017 22:27:42 09/12/19 18 09/11/2017 CBC w/ auto diff MCHC 34.0 g/dL (33.0- 37.0) Not Available [facility] [address] [place], [address], 09/11/2017 22:27:42 09/12/19 18 09/11/2017 CBC w/ auto diff plt 230 K/mm3 (150-4 60) Not Available [facility] [address] [place], [address], 09/11/2017 22:27:42 09/12/19 18 09/11/2017 CBC w/ auto diff RDW-SD 45.7 fL (<47.0 ) Not Available [facility] [address] [place], [address], 09/11/2017 22:27:42 09/12/19 18 09/11/2017 CBC w/ auto diff MPV 9.5 fL (9.4-1 2.4) Not Available [facility] [address] [place], [address], 09/11/2017 22:27:42 09/12/19 18 09/11/2017 CBC w/ auto diff automated NRBC 0.0 #/100 _WBC' s Not Available [facility] [address] [place], [address], 09/11/2017 22:27:42 09/12/19 18 09/11/2017 CBC w/ auto diff abs. NRBC 0.0 K/mm3 Not Available [facility] [address] [place], [address], 09/11/2017 22:27:42 09/12/19 18 09/11/2017 CBC w/ auto diff neut # 4.7 K/mm3 (1.3-7 .0) Not Available [facility] [address] [place], [address], 09/11/2017 22:27:42 09/12/19 18 09/11/2017 CBC w/ auto diff lymph # 1.4 K/mm3 (0.8-3 .1) Not Available [facility] [address] [place], [address], 09/11/2017 22:27:42 09/12/19 18 09/11/2017 CBC w/ auto diff mono# 0.9 K/mm3 (0.4-0 .9) Not Available [facility] [address] [place], [address], 09/11/2017 22:27:42 09/12/19 18 09/11/2017 CBC w/ auto diff eo # 0.2 K/mm3 (0.0-0 .4) Not Available [facility] [address] [place], [address], 09/11/2017 22:27:42 09/12/19 18 09/11/2017 CBC w/ auto diff baso # 0.1 K/mm3 (0.0-0 .1) Not Available [facility] [address] [place], [address], 09/11/2017 22:27:42 09/12/19 18 09/11/2017 CBC w/ auto diff abs. imm gran 0.0 K/mm3 Not Available [facility] [address] [place], [address], 09/11/2017 22:27:42 09/12/19 18 09/11/2017 CBC w/ auto diff neut 64.7 % (44-76 ) Not Available [facility] [address] [place], [address], 09/11/2017 22:27:42 09/12/19 18 09/11/2017 CBC w/ auto diff lymph 18.7 % (15-43 ) Not Available [facility] [address] [place], [address], 09/11/2017 22:27:42 09/12/19 18 09/11/2017 CBC w/ auto diff monocyte 12.6 % (4.5-1 0.5) high Not Available [facility] [address] [place], [address], 09/11/2017 22:27:42 09/12/19 18 09/11/2017 CBC w/ auto diff eo 2.5 % (0-6) Not Available [facility] [address] [place], [address], 09/11/2017 22:27:42 09/12/19 18 09/11/2017 CBC w/ auto diff baso 1.2 % (0-2) Not Available [facility] [address] [place], [address], 09/11/2017 22:27:42 09/12/19 18 09/11/2017 CBC w/ auto diff imm gran 0.3 % (0.0-0 .6) Not Available [facility] [address] [place], [address], 09/11/2017 22:27:42 09/12/19 18 09/11/2017 CMP, serum or plasm a glucose 104 mg/dL (70-99 ) high Not Available [facility] [address] [place], [address], 09/11/2017 23:29:56 09/12/19 18 09/11/2017 CMP, serum or plasm a BUN 11 mg/dL (8-23) Not Available [facility] [address] [place], [address], 09/11/2017 23:29:56 09/12/19 18 09/11/2017 CMP, serum or plasm a creatinine 0.8 mg/dL (0.5-1 .0) Not Available [facility] [address] [place], [address], 09/11/2017 23:29:56 09/12/19 18 09/11/2017 CMP, serum or plasm a sodium 134 mmol/ L (133-1 45) Not Available [facility] [address] [place], [address], 09/11/2017 23:29:56 09/12/19 18 09/11/2017 CMP, serum or plasm a potassium 4.6 mmol/ L (3.6-5 .2) Not Available [facility] [address] [place], [address], 09/11/2017 23:29:56 09/12/19 18 09/11/2017 CMP, serum or plasm a chloride 96 mmol/ L (98-10 7) low Not Available [facility] [address], [address], 09/11/2017 23:29:56 09/12/19 18 09/11/2017 CMP, serum or plasm a bicarbonate 23 mmol/ L (22-29 ) Not Available [facility] [address], [address], 09/11/2017 23:29:56 09/12/19 18 09/11/2017 CMP, serum or plasm a anion gap 15 (4-17) Not Available [facility] [address], [address], 09/11/2017 23:29:56 09/12/19 18 09/11/2017 CMP, serum or plasm a albumin 4.1 gm/dL (3.4-4 .8) Not Available [facility] [address], [address], 09/11/2017 23:29:56 09/12/19 18 09/11/2017 CMP, serum or plasm a calcium 9.3 mg/dL (8.6-1 0.5) Not Available [facility] [address], [address], 09/11/2017 23:29:56 09/12/1909/11/2017 CMP, serum or plasm a bilirubin,to della 0.4 mg/dL (0-1.2 ) Not Available [facility] [address], [address], 09/11/2017 23:29:56 09/12/19 18 09/11/2017 CMP, serum or plasm a total protein 6.6 gm/dL (6.2-8 .2) Not Available [facility] [address] [place], [address], 09/11/2017 23:29:56 09/12/19 18 09/11/2017 CMP, serum or plasm a Ag ratio 1.6 Not Available [facility] [address] [place], [address], 09/11/2017 23:29:56 09/12/19 18 09/11/2017 CMP, serum or plasm a AST 24 U/L (0-32) Not Available [facility] [address] [place], [address], 09/11/2017 23:29:56 09/12/19 18 09/11/2017 CMP, serum or plasm a alk phos 104 U/L (35-10 4) Not Available [facility] [address] [place], [address], 09/11/2017 23:29:56 09/12/19 18 09/11/2017 CMP, serum or plasm a ALT 22 U/L (0-33) Not Available [facility] [address] [place], [address], 09/11/2017 23:29:56 09/12/19 18 09/11/2017 CMP, serum [...] Available [facility] [address] [place], [address], 09/11/2017 23:29:56 09/12/19 18 09/11/2017 CMP, serum [...] Afric an Ameri cans. Not Available [facility] [address] [place], [address], 09/11/2017 23:29:56 09/12/19 18 09/11/2017 magne sium, serum or plasm a magnesium 1.6 mEq/L (1.3-1 .9) Not Available [facility] [address] [place], [address], 09/11/2017 23:29:57 06/15/1906/14/2018 CBC w/ auto diff WBC 7.5 K/mm3 (4.0-1 1.0) Not Available [facility] [address] [place], [address], 06/14/2018 13:55:52 06/15/1906/14/2018 CBC w/ auto diff RBC 4.66 M/mm3 (4.20- 5.40) Not Available [facility] [address] [place], [address], 06/14/2018 13:55:52 06/15/1906/14/2018 CBC w/ auto diff HGB 15.3 gm/dL (11.7- 15.5) Not Available [facility] [address] [place], [address], 06/14/2018 13:55:52 06/15/1906/14/2018 CBC w/ auto diff HCT 43.9 % (35.7- 45.8) Not Available [facility] [address] [place], [address], 06/14/2018 13:55:52 06/15/1906/14/2018 CBC w/ auto diff MCV 94.2 fL (80.0- 100.0) Not Available [facility] [address] [place], [address], 06/14/2018 13:55:52 06/15/1906/14/2018 CBC w/ auto diff MCH 32.8 pg (27.0- 34.0) Not Available [facility] [address] [place], [address], 06/14/2018 13:55:52 06/15/1906/14/2018 CBC w/ auto diff MCHC 34.9 g/dL (33.0- 37.0) Not Available [facility] [address] [place], [address], 06/14/2018 13:55:52 06/15/1906/14/2018 CBC w/ auto diff plt 256 K/mm3 (150-4 60) Not Available [facility] [address] [place], [address], 06/14/2018 13:55:52 06/15/1906/14/2018 CBC w/ auto diff RDW-SD 43.2 fL (<47.0 ) Not Available [facility] [address] [place], [address], 06/14/2018 13:55:52 06/15/1906/14/2018 CBC w/ auto diff MPV 9.9 fL (9.4-1 2.4) Not Available [facility] [address] [place], [address], 06/14/2018 13:55:52 06/15/1906/14/2018 CBC w/ auto diff automated NRBC 0.0 #/100 _WBC' s Not Available [facility] [address] [place], [address], 06/14/2018 13:55:52 06/15/1906/14/2018 CBC w/ auto diff abs. NRBC 0.0 K/mm3 Not Available [facility] [address] [place], [address], 06/14/2018 13:55:52 06/15/1906/14/2018 CMP, serum or plasm a glucose 125 mg/dL (70-99 ) high Not Available [facility] [address] [place], [address], 06/14/2018 15:24:51 06/15/1906/14/2018 CMP, serum or plasm a BUN 8 mg/dL (8-23) Not Available [facility] [address] [place], [address], 06/14/2018 15:24:51 06/15/1906/14/2018 CMP, serum or plasm a creatinine 0.8 mg/dL (0.5-1 .0) Not Available [facility] [address] [place], [address], 06/14/2018 15:24:51 06/15/1906/14/2018 CMP, serum or plasm a sodium 134 mmol/ L (133-1 45) Not Available [facility] [address] [place], [address], 06/14/2018 15:24:51 06/15/1906/14/2018 CMP, serum or plasm a potassium 4.6 mmol/ L (3.6-5 .2) Not Available [facility] [address] [place], [address], 06/14/2018 15:24:51 06/15/1906/14/2018 CMP, serum or plasm a chloride 98 mmol/ L (98-10 7) Not Available [facility] [address] [place], [address], 06/14/2018 15:24:51 06/15/1906/14/2018 CMP, serum or plasm a bicarbonate 23 mmol/ L (22-29 ) Not Available [facility] [address], [address], 06/14/2018 15:24:51 06/15/19 19 06/14/2018 CMP, serum or plasm a anion gap 13 (4-17) Not Available [facility] [address] [place], [address], 06/14/2018 15:24:51 06/15/19 19 06/14/2018 CMP, serum or plasm a albumin 4.5 gm/dL (3.4-4 .8) Not Available [facility] [address] [place], [address], 06/14/2018 15:24:51 06/15/19 19 06/14/2018 CMP, serum or plasm a calcium 9.5 mg/dL (8.6-1 0.5) Not Available [facility] [address] [place], [address], 06/14/2018 15:24:51 06/15/19 19 06/14/2018 CMP, serum or plasm a bilirubin,to della 0.5 mg/dL (0-1.2 ) Not Available [facility] [address] [place], [address], 06/14/2018 15:24:51 06/15/19 19 06/14/2018 CMP, serum or plasm a total protein 7.0 gm/dL (6.2-8 .2) Not Available [facility] [address] [place], [address], 06/14/2018 15:24:51 06/15/19 19 06/14/2018 CMP, serum or plasm a Ag ratio 1.8 Not Available [facility] [address] [place], [address], 06/14/2018 15:24:51 06/15/19 19 06/14/2018 CMP, serum or plasm a AST 28 U/L (0-32) Not Available [facility] [address] [place], [address], 06/14/2018 15:24:51 06/15/19 19 06/14/2018 CMP, serum or plasm a alk phos 105 U/L (35-10 4) high Not Available [facility] [address] [place], [address], 06/14/2018 15:24:51 06/15/19 19 06/14/2018 CMP, serum or plasm a ALT 27 U/L (0-33) Not Available [facility] [address] [place], [address], 06/14/2018 15:24:51 06/15/19 19 06/14/2018 CMP, serum [...] Ameri cans. Not Available [facility] [address] [place], [address], 06/14/2018 15:24:51 06/15/19 19 06/14/2018 CMP, serum [...] Available [facility] [address] [place], [address], 06/14/2018 15:24:51 06/15/1906/14/2018 lipid panel , serum cholesterol, total 192 mg/dL (<200) Not Available [facility] [address] [place], [address], 06/14/2018 15:24:52 06/15/1906/14/2018 lipid panel , serum triglyceride 190 mg/dL (<150) high Not Available [facility] [address] [place], [address], 06/14/2018 15:24:52 06/15/1906/14/2018 lipid panel , serum HDL chol 59 mg/dL (>39) Not Available [facility] [address] [place], [address], 06/14/2018 15:24:52 06/15/1906/14/2018 lipid panel , serum LDL cholesterol, calculated 95 mg/dL (0-130 ) Not Available [facility] [address] [place], [address], 06/14/2018 15:24:52 06/15/1906/14/2018 lipid panel , serum non HDL cholesterol (calc) 133 mg/dL (<160) Not Available [facility] [address] [place], [address], 06/14/2018 15:24:52 06/15/1906/14/2018 magne sium, serum or [...] Available [facility] [address] [place], [address], 06/14/2018 15:24:53 06/15/19 19 06/14/2018 CK (raymond lincoln), total , serum CK,total only 75 U/L (0-190 ) Not Available [facility] [address] [place], [address], 06/14/2018 15:24:54 06/15/19 19 06/14/2018 TSH, serum or plasm a TSH 0.89 mIU/m L (0.40- 4.00) Not Available [facility] [address] [place], [address], 06/14/2018 15:37:23 05/16/19 18 elect rocar diogr [...] ce of an acute proces s. WSN: [id number] Dictat ed By: Delonte Barrios MD Dictat ed Date/T erlinda: 10:26 a Review ed By: Delonte Barrios MD Signed By: Delonte Barrios MD Signed Date/T erlinda: 10:26 am Transc ribed By: CSB Transc ribed Date/T erlinda: 10:24 am Patien t Class: Outpat [facility] (Outpt Imaging) [address] [place], [address], 06/15/2018 15:07:23 06/15/19 19 06/14/2018 XR, lumba [...] ce of an acute proces s. WSN: [id number] Dictat ed By: Delonte Brarios MD Dictat ed Date/T erlinda: 10:26 a Review ed By: Delonte Barrios MD Signed By: Delonte Barrios MD Signed Date/T erlinda: 10:26 am Transc ribed By: PASTORA Transc ribed Date/T erlinda: 10:24 am Patien t Class: Outpat ient [facility] (Outpt Imaging) [address] [place], [address], 06/15/2018 15:07:23 Result Notes None recorded. Problems Name Problem SNOMED Code Status Onset Date Resolution Date Notes Provider Name and Address Organization Details Recorded Time Anemia due to chronic blood loss 454124712 Completed 201108/23/2013 RECORDED 10/31/19 12 2:42PM BY NICKY WOODS ON/ADDEN TORIE rosario [facility] 6 11:38:21 Anxiety state [id number] Active 2012 Becky Norton MA null, [facility] 7 17:00:55 Tobacco user [id number] Completed 201208/23/2013 RECORDED 01/28/20 13 1:17PM BY ALEXANDRE AGUILAR MA, ANNOTATI ON/ADDEN DUM Becky Norton MA null, [facility] 7 17:00:35 History of clinical finding in subject [id number] Completed 201209/17/2016 RECORDED 01/28/20 13 1:17PM BY ALEXANDRE AGUILAR MA, ANNOTATI ON/ADDEN DUM Becky Norton MA null, [facility] 7 17:01:11 Asthma [id number] Active 2012 Becky Norton MA null, [facility] 7 17:00:52 Screenin g for malignan t neoplasm of breast Completed 201410/31/2016 Dr. Susy Ortega, negative Becky Norton MA null, [facility] 7 13:35:13 Screenin g for malignan t neoplasm of breast Completed 201108/23/2013 RECORDED 10/31/19 12 2:41PM BY JEREL WOODSATI ON/ADDEN DUM Becky Norton MA null, [facility] 7 13:35:13 Chest pain [id number] Completed 201108/23/2013 RECORDED 10/31/19 12 2:41PM BY JEREL WOODSATI ON/ADDEN DUM Michelle Degutis null, [facility] 6 11:38:22 Screenin g for malignan t neoplasm of colon Completed 201208/23/2013 RECORDED 04/30/19 13 2:37PM BY TEA HANDY MA, ANNOTATI ON/ADDEN DUM Michelle Degutis null, [facility] 6 11:38:22 Divertic ular disease of colon 930144783 Completed 201108/23/2013 STORY: PT WAS SEEN IN OUR OFFICE 11/30/09 FOR RECTAL BLEEDING AND WAS REFERRED TO GI FOR AN EVALUATI ON. THAT EVENING EVERY TIME THE PT ATE SOMETHIN G SHE WOULD BE GOING TO THE BATHROOM TO HAVE A BM THAT WAS FILLED WITH BLOOD. AFTER A FEW TIMES THE PT TOOK HERSELF TO [facility] TO BE EVALUATE D. THE ONLY SX THAT THE PT FELT WAS BLOATING AND CRAMPING EVERYTIM E SHE ATE. PT HAD TO UNDERGO A COLONOSC OPY WITCH SHOWED THAT THE PT HAD BLEEDING COMING FROM THE ASCENDIN G,DESCEN DING, AND TRANSVER SE COLON. PT WAS LATER TRANSFER [facility] [place] [facility] [place]LOSE[place]. PT WAS THEN PLACED ON A LIQUID DIET UNTIL THE TIME WHERE SHE COULD TOLERATE SOLID FOOD WITH OUT PASSING A BM THAT WAS BLOODY. MEDICATI ON HAS BEEN RECONSIL ED WITH THE PT AND SHE WILL F/U WITH MGD 12/21/09 .; RECORDED 10/31/19 12 2:41PM BY NICKY WOODS ON/ADDEN DUM [place] Aziza rosario [facility] 6 11:38:21 Hemorrha ge of colon [id number] Completed 201108/23/2013 STORY: STABLE/ STILL ANEMIC; RECORDED 10/31/19 12 2:41PM BY NICKY WOODS ON/ADDEN DUM Michelle Aziza rosario [facility] [place] 6 11:38:22 Divertic ulitis of colon 646209838 Active 2011 Becky rosario [facility] 7 17:00:37 Dysuria 07417932 Completed 201108/23/2013 IMPRESSI ON: 3+ LEUKOCYT ES ON UA TODAY, COMPLETE D BACTRIM 2 DAYS AGO, START CIPRO AND SEND CULTURE; RECORDED 10/31/19 12 2:41PM BY NICKY WOODS ON/ADDEN DUM Becky rosario [facility] [place] 7 17:01:13 Gastroes ophageal reflux disease 562990222 Active 2012 Becky rosario, [facility] 7 17:00:59 Essentia l hyperten julisa 07468478 Active 2012 Becky rosario, [facility] 7 17:01:17 Essentia l hyperten julisa 15357301 Completed 201108/23/2013 RECORDED 10/31/19 12 2:41PM BY JEREL WOODSATI ON/ADDEN DUM Becky rosario, [facility] 7 17:01:17 External hemorrho ids 27800522 Active 2012 Becky rosario, [facility] 7 17:01:03 Influenz a vaccine needed [id number] 06 Completed 201208/23/2013 RECORDED 04/30/19 13 2:37PM BY TEA HANDY MA, ANNOTATI ON/ADDEN DUM Michelle Aziza [facility] 6 11:38:22 Follow-u p encounte r Completed 201208/23/2013 RECORDED 04/30/19 13 2:37PM BY TEA HANDY MA, ANNOTATI ON/ADDEN DUM [facility] 6 11:38:22 Tobacco user [id number] Active 2012 Becky rosario [facility] 7 17:00:35 Adult health examinat ion Completed 201209/17/2016 STORY: COLONOSC OPY DUE 2016/ SS/TUBUL AR ADENOMA; RECORDED 01/28/20 13 1:58PM BY RICARDO COLE MD, OFFICE VISIT Becky rosario [facility] 7 17:01:05 Adult health examinat ion Completed 201208/23/2013 RECORDED 04/30/19 13 2:37PM BY TEA HANDY MA, ANNOTATI ON/ADDEN DUM Becky rosario [facility] 7 17:01:05 Hearing loss [id number] Active 2012 Becky rosario [facility] 7 17:00:40 History of Malignan t melanoma [id number] Active 2013 Becky rosario [facility] 7 17:00:45 Hypo-osm olality and or hyponatr emia [id number] Completed 201108/23/2013 RECORDED 10/31/19 12 2:41PM BY VIOLA MOLINA I ANNOTATI ON/ADDEN DUM [facility] 11:38:21 Impacted cerumen [id number] Completed 201208/23/2013 RECORDED 01/28/20 13 1:17PM BY ALEXANDRE AGUILAR MA, ANNOTATI ON/ADDEN DUM Becky rosario [facility] 7 17:00:46 Irritabl e bowel syndrome [id number] Active 2012 Becky rosario [facility] 7 17:00:31 Renewal of prescrip tion Completed 201208/23/2013 RECORDED 04/30/19 13 2:37PM BY TEA HANDY MA, ANNOTATI ON/ADDEN DUM Michelle Ervin [facility] 6 11:38:22 Malignan t melanoma of skin [id number] Active 2013 Becky rosario [facility] 7 17:01:28 Active or passive immuniza tion Completed 200908/23/2013 RECORDED 03/01/19 10 9:56AM BY PILLO Masters NP, OFFICE VISIT Michelle Antoniousha abraham [facility] 6 11:38:22 Examinat ion for suspecte d mental disorder Completed 201108/23/2013 RECORDED 10/31/19 12 2:41PM BY NICKY WOODS ON/[facility] Degutis null, [facility] 6 11:38:22 Pre-surg girish evaluati on Completed 201208/23/2013 IMPRESSI ON: PT IS MEDICALL Y ABLE TO UNDERGO SURGERY, NO ACTIVE ISSUES, IS ABLE TO LAY FLAT AND STILL, EKG NL AND WILL GET LABS; RECORDED 01/28/20 13 1:17PM BY ALEXANDRE AGUILAR MA, ANNOTATI ON/[facility] Degutis null, [facility] 6 11:38:22 Tachycar wesley [id number] Completed 201108/23/2013 RECORDED 10/31/19 12 2:42PM BY NICKY WOODS ON/[facility] Degutis null, [facility] 6 11:38:22 Retentio n of urine 367014424 Completed 201208/23/2013 RECORDED 04/30/19 13 2:37PM BY TEA HANDY MA, ANNOTATI ON/[facility] Degutis null, [facility] 6 11:38:22 Urinary tract infectio us disease 50692474 Active 2013 Becky rosario, [facility] 7 17:01:20 Vaginiti s and vulvovag initis Completed 201108/23/2013 IMPRESSI ON: VAGINAL ITCHING AFTER COMPLETI NG ANTIBIOT ICS; RECORDED 10/31/19 12 2:42PM BY NICKY WOODS ON/[facility] Degutis null, [facility] 6 11:38:22 Impacted cerumen 17899774 Completed 09/17/2016 Becky rosario, [facility] 7 17:00:46 Hyponatr emia 31459155 Completed 09/04/2017 Dilshad Hall MD [address] [address], [facility] [place], [address] , [facility] 8 06:00:03 Anemia due to chronic blood loss 988574523 Completed 201109/15/2013 RECORDED 10/31/19 12 2:42PM BY VIOLA MOLINA I ANNOTATI ON/ADDEN DUM Michelle Degutis null, [facility] 6 11:38:21 Tobacco user [id number] Completed 201209/15/2013 RECORDED 01/28/20 13 1:17PM BY ALEXANDRE AGUILAR MA, ANNOTATI ON/ADDEN DUM Becky Norton MA null, [facility] 7 17:00:35 Chest pain 45694621 Completed 201109/15/2013 RECORDED 10/31/19 12 2:41PM BY VIOLA MOLINA I ANNOTATI ON/ADDEN DUM Michelle Degutis null, [facility] 6 11:38:22 Screenin g for malignan t neoplasm of colon Completed 201209/15/2013 RECORDED 04/30/19 13 2:37PM BY TEA HANDY MA, ANNOTATI ON/ADDEN DUM Micehlle Degutis null, [facility] 6 11:38:22 Divertic ular disease of colon 078563709 Completed 201109/15/2013 STORY: PT WAS SEEN IN OUR OFFICE 11/30/09 FOR RECTAL BLEEDING AND WAS REFERRED TO GI FOR AN EVALUATI ON. THAT EVENING EVERY TIME THE PT ATE SOMETHIN G SHE WOULD BE GOING TO THE BATHROOM TO HAVE A BM THAT WAS FILLED WITH BLOOD. AFTER A FEW TIMES THE PT TOOK HERSELF TO [facility] TO BE EVALUATE D. THE ONLY SX THAT THE PT FELT WAS BLOATING AND CRAMPING EVERYTIM E SHE ATE. PT HAD TO UNDERGO A COLONOSC OPY PATITO SHOWED THAT THE PT HAD BLEEDING COMING FROM THE ASCENDIN G,DESCEN DING, AND TRANSVER SE COLON. PT WAS LATER [place] [facility] [place]. PT WAS THEN PLACED ON A LIQUID DIET UNTIL THE TIME WHERE SHE COULD TOLERATE SOLID FOOD WITH OUT PASSING A BM THAT WAS BLOODY. MEDICATI ON HAS BEEN RECONSIL ED WITH THE PT AND SHE WILL F/U WITH MGD 12/21/09 .; RECORDED 10/31/19 12 2:41PM BY NICKY WOODS ON/ADDEN DUM Michelle Palmaedouard rosario [facility] 6 11:38:21 Hemorrha ge of colon 91946225 Completed 201109/15/2013 STORY: STABLE/ STILL ANEMIC; RECORDED 10/31/19 12 2:41PM BY NICKY WOODS ON/ADDEN DUM Michelle Antonioutis null, [facility] 6 11:38:22 Dysuria 88031491 Completed 201109/15/2013 IMPRESSI ON: 3+ LEUKOCYT ES ON UA TODAY, COMPLETE D BACTRIM 2 DAYS AGO, START CIPRO AND SEND CULTURE; RECORDED 10/31/19 12 2:41PM BY NICKY WOODS ON/ADDEN DUM Becky Norton [place] abraham [facility] 7 17:01:13 Influenz a vaccine needed [id number] 06 Completed 201209/15/2013 RECORDED 04/30/19 13 2:37PM BY TEA HANDY MA, ANNOTATI ON/ADDEN DUM Michelle Ervin abraham, [facility] 6 11:38:22 Follow-u p encounte r Completed 201209/15/2013 RECORDED 04/30/19 13 2:37PM BY TEA HANDY MA, ANNOTATI ON/ADDEN DUM Michelle Antoniousha rosario, [facility] 6 11:38:22 Hypo-osm olality and or hyponatr emia 423908752 Completed 201109/15/2013 RECORDED 10/31/19 12 2:41PM BY NICKY WOOSD ON/ADDEN DUM Michelle Antonioutis null, [facility] 6 11:38:21 Impacted cerumen 63413497 Completed 201209/15/2013 RECORDED 01/28/20 13 1:17PM BY ALEXANDRE AGUILAR MA, ANNOTATI ON/ADDEN DUM Becky Norton MA null, [facility] 7 17:00:46 Renewal of prescrip tion Completed 201209/15/2013 RECORDED 04/30/19 13 2:37PM BY TEA HANDY MA, JERELATI ON/ADDEN DUM Michelle Degutis null, [facility] 6 11:38:22 Active or passive immuniza tion Completed 200909/15/2013 RECORDED 03/01/19 10 9:56AM BY PILLO Masters NP, OFFICE VISIT Michelle Pacoutis null, [facility] 6 11:38:22 Examinat ion for suspecte d mental disorder Completed 201109/15/2013 RECORDED 10/31/19 12 2:41PM BY NICKY WOODS ON/[facility] DUM Michelle Degutis null, [facility] 6 11:38:22 Pre-surg girish evaluati on Completed 201209/15/2013 IMPRESSI ON: PT IS MEDICALL Y ABLE TO UNDERGO SURGERY, NO ACTIVE ISSUES, IS ABLE TO LAY FLAT AND STILL, EKG NL AND WILL GET LABS; RECORDED 01/28/20 13 1:17PM BY ALEXANDRE AGUILAR MA, JERELATI ON/[facility] DUM Michelle Degutis null, [facility] 6 11:38:22 Tachycar wesley [id number] Completed 201109/15/2013 RECORDED 10/31/19 12 2:42PM BY JEREL WOODSATI ON/ADDEN DUM Michelle Degutis null, [facility] 6 11:38:22 Retentio n of urine 672124694 Completed 201209/15/2013 RECORDED 04/30/19 13 2:37PM BY TEA HANDY MA, ANNOTATI ON/ADDEN DUM Michelle Degutis null, [facility] 6 11:38:22 Vaginiti s and vulvovag initis Completed 201109/15/2013 IMPRESSI ON: VAGINAL ITCHING AFTER COMPLETI NG ANTIBIOT ICS; RECORDED 10/31/19 12 2:42PM BY NICKY WOODS ON/ADDEN DUM Michelle Degutis null, [facility] 6 11:38:22 Anemia due to chronic blood loss 281040888 Completed 201109/16/2013 RECORDED 10/31/19 12 2:42PM BY JEREL WOODSATI ON/ADDEN DUM Michelle Degutis null, [facility] 6 11:38:21 Tobacco user [id number] Completed 201209/16/2013 RECORDED 01/28/20 13 1:17PM BY ALEXANDRE AGUILAR MA, ANNOTATI ON/ADDEN DUM Becky Norton MA null, [facility] 7 17:00:35 Chest pain 44972820 Completed 201109/16/2013 RECORDED 10/31/19 12 2:41PM BY JEREL WOODSATI ON/ADDEN DUM Michelle Degutis null, [facility] 6 11:38:22 Screenin g for malignan t neoplasm of colon Completed 201209/16/2013 RECORDED 04/30/19 13 2:37PM BY TEA HANDY MA, JERELATI ON/ADDEN DUM Michelle Degutis null, [facility] 6 11:38:22 Divertic ular disease of colon 154396918 Completed 201109/16/2013 STORY: PT WAS SEEN IN OUR OFFICE 11/30/09 FOR RECTAL BLEEDING AND WAS REFERRED TO GI FOR AN EVALUATI ON. THAT EVENING EVERY TIME THE PT ATE SOMETHIN G SHE WOULD BE GOING TO THE BATHROOM TO HAVE A BM THAT WAS FILLED WITH BLOOD. AFTER A FEW TIMES THE PT TOOK HERSELF TO [facility] TO BE EVALUATE D. THE ONLY SX THAT THE PT FELT WAS BLOATING AND CRAMPING EVERYTIM E SHE ATE. PT HAD TO UNDERGO A COLONOSC OPY WITCH SHOWED THAT THE PT HAD BLEEDING COMING FROM THE ASCENDIN G,DESCEN DING, AND TRANSVER SE COLON. PT WAS LATER TRANSFER RED [place] [facility] [place] [place]. PT WAS THEN PLACED ON A LIQUID DIET UNTIL THE TIME WHERE SHE COULD TOLERATE SOLID FOOD WITH OUT PASSING A BM THAT WAS BLOODY. MEDICATI ON HAS BEEN RECONSIL ED WITH THE PT AND SHE WILL F/U WITH MGD 12/21/09 .; RECORDED 10/31/19 12 2:41PM BY NICKY WOODS ON/ADDEN DUM Michelle Antonioutedouard rosario [facility] 6 11:38:21 Hemorrha ge of colon 41755063 Completed 201109/16/2013 STORY: STABLE/ STILL ANEMIC; RECORDED 10/31/19 12 2:41PM BY NICKY WOODS ON/ADDEN DUM Michelle Antonioutedouard rosario [facility] 6 11:38:22 Dysuria 54655368 Completed 201109/16/2013 IMPRESSI ON: 3+ LEUKOCYT ES ON UA TODAY, COMPLETE D BACTRIM 2 DAYS AGO, START CIPRO AND SEND CULTURE; RECORDED 10/31/19 12 2:41PM BY NICKY WOODS ON/ADDEN TORIE rosario [facility] 7 17:01:13 Influenz a vaccine needed [id number] 06 Completed 201209/16/2013 RECORDED 04/30/19 13 2:37PM BY TEA HANDY MA, ANNOTATI ON/ADDEN DUM Michelle rosario [facility] 6 11:38:22 Follow-u p encounte r Completed 201209/16/2013 RECORDED 04/30/19 13 2:37PM BY TEA HANDY MA, ANNOTATI ON/ADDEN DUM Michelle rosario [facility] 6 11:38:22 Hypo-osm olality and or hyponatr emia 986320589 Completed 201109/16/2013 RECORDED 10/31/19 12 2:41PM BY NICKY WOODS/CHARLIE DUM Michelle Degutis null, [facility] 6 11:38:21 Impacted odilia 79541458 Completed 201209/16/2013 RECORDED 01/28/20 13 1:17PM BY ALEXANDRE GAUILAR MA, ANNOTATI ON/ADDEN DUM Becky Cierra GALLAGHER null, [facility] 7 17:00:46 Renewal of prescrip tion Completed 201209/16/2013 RECORDED 04/30/19 13 2:37PM BY TEA HANDY MA, JERELATI ON/ADDEN DUM Michelle Degutis null, [facility] 6 11:38:22 Active or passive immuniza tion Completed 200909/16/2013 RECORDED 03/01/19 10 9:56AM BY PILLO Masters NP, OFFICE VISIT [place] Pacoutis null, [facility] 6 11:38:22 Examinat ion for suspecte d mental disorder Completed 201109/16/2013 RECORDED 10/31/19 12 2:41PM BY NICKY WOODS ON/[facility] TORIE Michelle Degutis null, [facility] 6 11:38:22 Pre-surg girish evaluati on Completed 201209/16/2013 IMPRESSI ON: PT IS MEDICALL Y ABLE TO UNDERGO SURGERY, NO ACTIVE ISSUES, IS ABLE TO LAY FLAT AND STILL, EKG NL AND WILL GET LABS; RECORDED 01/28/20 13 1:17PM BY ALEXANDRE AGUILAR MA, NICKY ON/ADDEN DUM Michelle Degutis null, [facility] 6 11:38:22 Tachycar wesley [id number] Completed 201109/16/2013 RECORDED 10/31/19 12 2:42PM BY NICKY WOODS ON/ADDEN DUM Michelle Degutis null, [facility] 6 11:38:22 Retentio n of urine 151612059 Completed 201209/16/2013 RECORDED 04/30/19 13 2:37PM BY TEA HANDY MA, ANNOTATI ON/ADDEN DUM Michelle Ervin abraham [facility] 6 11:38:22 Vaginiti s and vulvovag initis Completed 201109/16/2013 IMPRESSI ON: VAGINAL ITCHING AFTER COMPLETI NG ANTIBIOT ICS; RECORDED 10/31/19 12 2:42PM BY NICKY WOODS ON/ADDEN DUM Michelle Ervin abraham [facility] 6 11:38:22 Dermatit is Completed 09/17/2016 Becky rosario [facility] 7 17:00:48 Dysuria 43593422 Completed 09/17/2016 Becky rosario [facility] 7 17:01:13 Insomnia 761103462 Active [place] Pacohermelindaedouard abraham [facility] 6 11:38:21 Advance directiv e discusse d with patient 473682629 Completed 09/17/2016 Becky rosario [facility] 7 17:01:07 Polyp of colon 68641570 Active [place] Aziza abraham [facility] 6 11:38:21 Chronic low back pain 729293649 Active 2018 Rebeca rosario [facility] 9 14:22:51 Problem Notes None recorded. Procedures Surgical History Date Name Laterality Status Provider Name and Address Organization Details Recorded Time 01/21/20 19 Mini-Cog Test completed Leila Julien MA [facility] 01/20/2019 09:52:44 12/30/19 18 Most Recent Mammogram completed Leila Julien MA [facility] 01/20/2019 09:47:42 12/19/19 18 Mini-Cog Test completed Naheed Veliz [facility] 12/18/2017 13:13:25 12/02/19 17 Fall Risk Assessment completed Becky Norton MA [facility] 12/01/2016 13:22:35 12/02/19 17 Mini-Cog Test completed Beckybridger Norton MA [facility] 12/01/2016 13:23:31 11/29/19 17 Mammogram both breasts completed Kimmy Yañez [facility] 12/09/2016 14:44:18 10/17/19 17 Date of Last Colonoscopy completed Paola Whittakera [facility] 12/09/2016 16:54:35 10/17/19 17 Colonoscopy completed Beckybridger Norton [facility] 10/24/2016 11:43:36 03/23/19 16 Fall Risk Assessment completed Beckybridger Norton [facility] 03/23/2015 13:55:01 03/23/19 16 Mini-Cog Test completed [facility] 03/23/2015 14:02:26 03/23/19 16 Advanced Care Planning completed Beckybridger Norton [facility] 03/23/2015 13:41:44 08/19/19 15 Date of Last Pap Smear completed Michelle Ervin [facility] 03/28/2015 11:40:33 02/23/19 11 Most Recent Bone Density completed Beckybridger Norton [facility] 03/23/2015 14:07:39 02/09/19 08 Appendectomy completed Tea Handy [facility] 03/02/2014 10:46:37 Imaging Results Imaging Date Name Status LastModified by Organization Details LastModified Time 05/15/2017 electrocardiogram completed Infor mation not available 05/15/2017 12:36:53 06/14/2018 XR, sacrum + coccyx, 2 or more view active [facility] [address] [place], [address], 06/15/2018 15:07:23 06/14/2018 XR, lumbar spine active [facility] [address] [place], [address], 06/15/2018 15:07:23 Procedure Notes None recorded. Medical Equipment None Reported. Allergies Allergen ID Allergen Name Allergen Category Reaction Reaction Severity Criticality Documentation Date Start Date Code Code System Note Provider Name and Address Organization Details Recorded Time 2935 latex environme nt,medica tion rash Not available Not available 08/23/20132012 74129 91 RxNorm [facility] [place] 7 17:00:18 Medications Name Sig Start [...] Updated DateTime 8 154.94 cm 31.4 kg/m2 59550.4 3 g 98.7 [degF] 96 % 96 % 89 /min 118 mm[Hg] 76 mm[Hg] Becky Norton MA [facility] 8 11:28:28 Date Recorded Body height Body mass index (BMI) Body weight Heart rate Oxygen saturation Oxygen saturation in Arterial blood by Pulse oximetry Body temperature Systolic blood pressure Diastolic blood pressure Provider Name and Address Organization Details Last Updated DateTime 8 154.94 cm 30.8 kg/m2 24101.5 6 g 94 /min 97 % 97 % 97.5 [degF] 136 mm[Hg] 74 mm[Hg] Viola Medina [facility] 8 10:41:30 Date Recorded Body height Body mass index (BMI) Body weight Body temperature Heart rate Oxygen saturation Oxygen saturation in Arterial blood by Pulse oximetry Systolic blood pressure Diastolic blood pressure Provider Name and Address Organization Details Last Updated DateTime 8 154.94 cm 30.5 kg/m2 44568.4 7 g 97.2 [degF] 86 /min 96 % 96 % 123 mm[Hg] 72 mm[Hg] Naheed Winnignacia [facility] 8 12:57:56 Date Recorded Body height Body mass index (BMI) Body weight Heart rate Oxygen saturation Oxygen saturation in Arterial blood by Pulse oximetry Body temperature Systolic blood pressure Diastolic blood pressure Provider Name and Address Organization Details Last Updated DateTime 9 154.94 cm 30.2 kg/m2 14487.7 8 g 92 /min 96 % 96 % 98.4 [degF] 124 mm[Hg] 78 mm[Hg] Ruby Garciau [facility] 9 12:59:19 Date Recorded Body height Body mass index (BMI) Body weight Oxygen saturation Oxygen saturation in Arterial blood by Pulse oximetry Heart rate Body temperature Systolic blood pressure Diastolic blood pressure Provider Name and Address Organization Details Last Updated DateTime 9 154.94 cm 30.7 kg/m2 73681.0 6 g 96 % 96 % 81 /min 98.1 [degF] 119 mm[Hg] 67 mm[Hg] Leila Julien MA [facility] 9 09:56:35 Social History Question Answer Notes LastModified by Organizat ion Details LastModified Time Tobacco Smoking Status [facility] 11:26:06 Do You Have An [...] E-cigarettes Or Vape? 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 Never Used Smokeless Tobacco [email or web address] Information not available 01/20/2019 How Much Tobacco Do You Smoke? 1 PPW [email or web address] Information not available 01/20/2019 General Stress Level [...] Medical History Condition Response Anxiety Disorder Y Asthma Y Reflux/GERD Y Hypertension Y Gynecological History Statement/Question Response Menses Monthly [...] virus, quadrivalent, PF 5 completed Becky rosario [facility] 03/23/2015 14:06:48 Influenza, high-dose, trivalent, PF 7 completed Not Available [facility] 02/26/2019 02:22:21 Novel [id number], all formulations 0 completed Not Available [facility] 08/23/2013 13:38:52 pneumococcal polysaccharide PPV23 0 completed Not Available [facility] 08/23/2013 13:38:52 Influenza, split virus, trivalent, preservative 0 completed Not Available [facility] 08/23/2013 13:38:52 Influenza, split virus, trivalent, preservative 1 completed Not Available [facility] 08/23/2013 13:38:52 Influenza, split virus, trivalent, preservative 2 completed Not Available [facility] 08/23/2013 13:38:52 Influenza, split virus, trivalent, preservative 3 completed Not Available [facility] 08/23/2013 13:38:52 Influenza, high-dose, trivalent, PF 8 completed Not Available [facility] 02/26/2019 02:22:14 Influenza, high-dose, trivalent, PF 9 completed Not Available [facility] 02/26/2019 02:22:09 Past Encounters Encounter ID Performer Location Encounter Start Date Encounter Closed Date Diagnosis/Indication Diagnosis SNOMED-CT Code Diagnosis ICD10 Code Diagnosis Note [id number] [facility] Main Office [address] [facility] [address] [place] [address] 09/08/2013 11:14:56 09/08/2013 11:58:13 Essential hypertension 28380246 well controlled Asthma 133810778 followe d by pulm, well controlled on symbicort Anxiety state 529156134 Impacted cerumen 52139152 successful ly removed with ear lavage [id number] [facility] [address] [facility] [place] [address] 03/01/2009 00:00:00 [id number] autoEComm erce [address] [facility],[address] [place] [address] 03/29/2009 00:00:00 [id number] autoEComm erce [address] [facility],[address] [place] [address] 09/10/2009 00:00:00 [id number] [address] [address] [place] [address] 11/13/2009 00:00:00 [id number] [facility] erce [address] [place] [address] 11/30/2009 00:00:00 [id number] [facility]ce [address] [place] [address] 12/21/2009 00:00:00 [id number] [address] [address] [place] [address] 02/11/2010 00:00:00 [id number] auto[facility]Comm erce [address] [facility] [address] [place] [address] 05/17/2010 00:00:00 [id number] auto[facility]Comm erce [address] [facility],[address] [place] [address] 08/23/2010 00:00:00 [id number] auto[facility]Comm erce [address] [facility] [address] [place] [address] 09/04/2010 00:00:00 [id number] autoEComm erce [address] [facility] [place] [address] 11/29/2010 00:00:00 [id number] auto[employer]Comm erce [address] [facility] [place] [address] 01/10/2011 00:00:00 [id number] autoEComm erce [address] [facility] [place] [address] 05/02/2011 00:00:00 [id number] auto[facility]Comm erce [address] [place] [address] 10/31/2011 00:00:00 [id number] autoEComm erce [address] [facility] [place] [address] 04/29/2012 00:00:00 [id number] autoEComm erce [address] [place] [address] 07/15/2012 00:00:00 [id number] [facility] [address] [place] [address] 01/27/2013 00:00:00 [id number] [facility] Main Office [address] [address] [place] [address] 09/26/2013 13:41:44 09/26/2013 14:55:33 Dermatitis 224677302 candidal dermatitis [id number] [facility] Main Office [address] [address] [place] [address] 03/02/2014 12:39:53 03/02/2014 13:42:38 Essential hypertension 42049401 Hyponatremia 74084584 pt to see Dr Pride regularly/ pt aware that she needs to stop using clorazepat e / see psych referral Anxiety state 099118555 Dysuria 97019990 [id number] Becky Norton [place] Main Office [address] [address] [place] [address] 04/21/2014 14:46:19 04/21/2014 15:48:33 Essential hypertension 31992248 both meds helpful/ Diltiazem and lisinopril Gastroesop hageal reflux disease 170110894 pt on PPI Anxiety state 529161080 Asthma 242362532 [id number] Ricardo medellin Main Office [address] [address] [place] [address] 03/23/2015 13:27:48 03/23/2015 14:47:01 Adult health examination 709329024 [facility] 143956312 Z91.81 Advance di rective discussed with patient 388817808 Z71.89 pt will have her brother as health care proxy Essential hypertension 02009655 I10 both meds helpful/ Diltiazem and lisinopril Polyp of colon 10290578 K63.5 pt due for colonoscop y 2017 /tubular adenoma/We iss Asthma 127839504 J45.90 9 Anxiety state 602692084 F41.1 [id number] Ricardo medellin Main Office [address] [address] [place] [address] 10/05/2015 12:46:12 10/05/2015 13:40:50 Essential hypertension 72576630 I10 both meds helpful/ Diltiazem and lisinopril Asthma 175166226 J45.90 9 urged pt to get flu shot soon. Anxiety state 868840500 F41.1 [id number] Ricardo Carversusana medellin Main Office [address] [address] [place] [address] 06/19/2016 12:55:50 06/19/2016 14:13:50 Fatigue 87851091 R53.83 Abnormal weight loss 267 409149 R63.4 Diarrhea 43054890 R19.7 Nausea 533816826 R11.0 d/w pt to elevate HOB/ cont PPI Impaired f asting glycemia 571543651 R73.01 [id number] Ricardo Carversusana medellin Main Office [address] [address] [place] [address] 10/23/2016 14:30:06 10/23/2016 15:27:24 [id number] Ricardo Carversusana medellin Main Office [address] [address] [place] [address] 10/31/2016 13:21:48 10/31/2016 14:41:18 Lumbosacral radiculitis 00985993 M54.17 Influenza vaccine needed 6985468784 106 Z23 [id number] Ricardo Carversusana medellin Main Office [address] [address] [place] [address] 12/01/2016 13:04:53 12/01/2016 14:09:38 Adult health examination 455886600 Z00.00 Essential hypertension 27639992 I10 both meds helpful/ Diltiazem and lisinopril Anxiety state 771636165 F41.1 [id number] Ricardo Carversusana medellin Main Office [address] [address] [place] [address] 05/15/2017 11:16:16 05/15/2017 12:12:51 Anxiety state 882042025 F41.1 Essential hypertension 72290566 I10 both meds helpful/ Diltiazem and lisinopril Incomplete emptying of urinary bladder 511580949 R39.14 [id number] Maryanne fernandes Main Office [address] [address] [place] [address] 11/13/2017 10:36:20 11/13/2017 11:18:17 Anxiety state 714785881 F41.1 has been on med for 20+ years, she is taking 3.75mg daily, will try to cut the dose in half if possible. f/u in 1 month for wellness visit. Influenza vaccine needed 7435966583 106 Z23 Gastroesop hageal reflux disease 740775375 K21.9 Essential hypertension 86206345 I10 well controlled , continue meds as directed. [id number] Ramon Callahan MD Main Office [address] [address] [place] [address] 12/18/2017 12:40:39 12/18/2017 13:46:58 Adult health examination 574273468 Z00.00 UTD, she will call PANEL MACHINE TENDER for appt Varicella vaccination 68 830029 Z23 Asthma 458344680 J45.90 9 Essential hypertension 11176453 I10 well controlled , continue meds as directed. Family his tory of Hypercholesterolemia 923759785 Z83.49 Anxiety state 933189962 F4Katerine.1 has been on med for 20+ years, she is taking 3.75mg daily, will try to cut the dose in half if possible. f/u in 1 month for wellness visit. [id number] NICOLÁS Fay Main Office [address] [address] [place] [address] 06/11/2018 12:42:51 06/11/2018 13:40:40 Low back pain 433024364 M54.5 Patient with chronic low back pain, in PT, seeing chiropract or, but wondering if she should be seeing someone else. Will check XR and refer back to [facility], she has seen them for this in the past. continue sx treatment, ibuprofen as needed. Cramp in lower limb 4499 84056 R25.2 Essential hypertension 34568322 I10 well controlled , continue meds as directed. Fatigue [id number] R53.83 [id number] [facility] [address] [address] [place] [address] 01/20/2019 09:41:15 01/20/2019 10:33:29 Adult health examination [id number] Z00.00 UTD, she has mammo scheduled, needs to call PANEL MACHINE TENDER. Influenza vaccine needed [id number] 106 Z23 Impaired f asting glycemia [id number] R73.01 in June, sugar 125 and she believes she was fasting Hyperlipidemia [id number] E78.5 Health Concerns Section Related Observation LastModified by Organization Detai ls LastModified Time None Recorded Concern Status LastModified by Organization Details LastModified Time None Recorded Advance Directives Directive Y: Payers Encounter Date Sequence Insurance Name Policy Number Policy Menendez Covered Member ID Menendez Member ID Guarantor Name 05/15/2017 2 [place] [id number] Noris E Oparowski [id number] Noris E Oparowski 05/15/2017 1 [place] Noris E Oparowski [id number] Noris E Oparowski 11/13/2017 2 [place] [id number] Noris E Oparowski [id number] Noris E Oparowski 11/13/2017 1 [place] Noris E Oparowski [id number] Noris E Oparowski 12/18/2017 2 [place] [id number] Noris E Oparowski [id number] Noris E Oparowski 12/18/2017 1 [place] Noris E Oparowski [id number] Noris E Oparowski 06/11/2018 2 [place] [id number] Noris E Oparowski [id number] Noris E Oparowski 06/11/2018 1 [place] Noris E Oparowski [id number] 06 Noris E Oparowski 01/20/2019 2 [place] [id number] Noris E Oparowski [id number] Noris E Oparowski 01/20/2019 1 [place] Noris E Oparowski [id number] Noris E Oparowski Notes Date Note Type Note Provider Name and Address Organization Details Recorded Time 05/15/2017 text/html Anxiety/Depressi onRepo rted bypatient.Quality:incr eased anxiety; pt reports that sthe plans to return to her pschologist Dr Valdes this year Severity:able to maintain relationships Associated Symptoms:no significant weight gain; mood good; pt has penitentiary hx of benzo use , > 20 [...] no fever;incomplete emptying of bladder Ricardo rosario [facility] 05/15/2017 12:16:47 11/13/2017 text/html Anxiety/Depressi onRepo rted bypatient.Quality:incr eased anxiety; stress, car trouble Severity:able to maintain relationships Context:major life stressors;family problems Associated Symptoms:no significant weight gain;high irritability;hostility ;anxiety;hypersensitiv ity;anxiety with muscle tension; 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 DR saw Dr. Miller at [facility]. Was discharged in 2017 due to improvement with PT. 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 Since the fall her back pain is worse. Denis Marcos, [facility] [address] [address], [place], [address], [facility] 06/11/2018 13:40:34 01/20/2019 text/html Medicare Annual Wellness [...] states she found a new PCP in [place] but cannot be seen until May. Denis Marcos [facility] [address] [place] [address], [place], [address], [facility] 01/20/2019 10:57:40 OBGyn Episode No OBEpisode recorded.
== END 2024-02-18 13:46 | disposition home or self-care (01) ==
LOC: HO.ACS 13:14
PROVIDERS: PCP Family Medicine; Visit Provider Internal Medicine
DX: Z79.01 Long term (current) use of anticoagulants (principal)

== ENCOUNTER → 2024-02-18 13:14 | Outpatient (BNVA) | payer MEDICARE, MEDICAID, SELFPAY | PROVIDERS: PCP Family Medicine; Visit Provider Internal Medicine | DX: I26.94 Multiple subsegmental thrombotic pulmonary emboli without acute cor pulmonale (principal); Z86.718 Personal history of other venous thrombosis and embolism; Z79.01 Long term (current) use of anticoagulants; Z51.81 Encounter for therapeutic drug level monitoring | CPT/HCPCS: 85610; 99211 ==

== ENCOUNTER 2024-02-25 10:18 | Outpatient (AMB) | payer MEDICARE, MEDICAID, SELFPAY ==
[2024-02-25 10:28] LABS: ~PT, ~INR - Anti Coag Clinic 3.3 (0.9-1.1)
--- NOTE | 2024-02-25 10:37 | MHC.OFFVISCO ---
Intake Intake Visit Reasons: Anticoagulation Allergies Seasonal Allergies Allergy (Mild, Verified 02/25/24 10:22) runny nose latex Allergy (Verified 02/25/24 10:22) rash Medication List - Last Reconciled 02/25/24 by Anabella Otoole RN albuterol sulfate 90 mcg/actuation 2 puffs inhalation Q8H PRN cetirizine (Zyrtec) 10 mg PO DAILY PRN cholecalciferol (vitamin D3) 50 mcg PO DAILY citalopram 20 mg PO DAILY 90 days clonazepam 0.5 mg PO BID PRN diltiazem HCl CD 120 mg PO DAILY 90 days fluticasone propion-salmeterol 500-50 mcg/dose (Wixela Inhub) 1 inh inhalation BID fluticasone propionate 50 mcg/actuation (Flonase Allergy Relief) 1 spray intranasal Q12H 30 days gabapentin 300 mg PO BID hydroxyzine HCl 10 mg PO TID PRN lisinopril 10 mg PO DAILY omeprazole 20 mg PO DAILY tamsulosin 0.4 mg PO BEDTIME 90 days warfarin 2 mg See Protocol PO DAILY 30 days Nursing Note INR: 3.3 OUT OF therapeutic range - DISCUSSED INR TRENDING UP - INR TRENDING UP - PT STATES HER APPETITE IS GOOD - JUST A LITTLE LESS THAN WHAT SHE USE TO EAT. 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 Bleeding, bruising, clotting discussed Nutritional guidance given - GREENS TODAY AT LUNCH IF ABLE BEFORE HAVING STEW TONIGHT- MAKE SURE TO KEEP GREENS WEEKLY, COOKED GREENS LOWER INR MORE THAN RAW GREENS Dose: DECREASE WEEKLY DOSE TO 1 MG DAILY F/U INR: 2 WEEKS Patient verbalizes understanding of instructions given with read back Anti-Coag Initial Assessment Social Hx Patient Tobacco Use Status: Former Tobacco user (20 years quit around age 51 ) Tobacco use type: Cigarette Smoking packs per day: 1.0 alcohol intake: current Alcohol intake frequency: 0-2 drinks per day (about 2 daily with ice ) Cardiovascular Hx: HTN and Other (edma right foot > left foot had dvt ) Lung Disease HX: Asthma, COPD (believe r/t to work exposure and smoking) and 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 Illness/Depression: Yes (anxiety ) Coding Level of Care Code Est Patient Level 1 Diagnoses Current use of anticoagulant therapy Z79.01 Assessment & Plan Assessment & Plan (1) Current use of anticoagulant therapy: Code(s): Z79.01 - alf (current) use of anticoagulants Category: Medical Medications: On Hold fluticasone propionate 50 mcg/actuation (Flonase Allergy Relief) Hold Comment: nose bleed 1 spray intranasal Q12H 30 days 16 grams 2RF
--- OUTSIDE RECORDS SUMMARY | 2024-02-25 12:19 | XMS_ITS | Data Portability ---
Author Organization [facility], Main Office Address [address] [facility] [address] [place] [address] Care Team Providers Care Pottery Striper Name Role Phone ABDIEL ORTEGA Internal Communications Manager GRACIELA MILLER Urologist ABDIEL LOZANO Supervisor [employer] [phone] URBAN PRIDE Entry Level Sales Associate HUMBERTO SINGH Dairy Husbandman RICARDO HUGHES Chiropractor [facility] Physical Therapist DENIS MARCOS Primary Care Provider Assessment No assessment recorded. Plan of Treatment Reminders Order Date Submit Date Provider Last Modified By Organization Details Last Modified Time Details Appointments None recorded. Lab lipid panel, serum 2017 018 TIMOTHY [facility], [address] [place] [place], [address], 9 15:24:52 CMP, serum or plasma 2017 018 toni [facility], [address], [address], 9 11:56:02 magnesium , serum or plasma 2018 019 TIMOTHY [facility], [address] [place], [address], 9 15:24:53 CK (creatine kinase), total, serum 2018 019 TIMOTHY [facility], [address] [place], [address], 9 15:24:54 CBC w/ auto diff 2018 019 TIMOTHY [facility], [address] [place], [address], 9 13:55:52 CMP, serum or plasma 2018 019 TIMOTHY [facility], [address] [place], [address], 9 15:24:51 TSH, serum or plasma 2018 019 TIMOTHY [facility], [address] [place], [address], 9 15:37:23 HbA1c (hemoglob in A1c), blood 2018 019 [facility], [address] [place], [address], 0 09:38:13 BMP, serum or plasma 2018 019 [facility], [address] [place], [address], 0 09:38:13 lipid panel, serum 2018 019 [facility], [address] [place], [address], 0 09:38:13 Referral urologist referral - pt has not seen urology in 2 years or more and wants to have consultat ion w/ urologist rather than SPORTS EQUIPMENT SUPERVISOR 2017 018 scott Crane MD, [address], [address], [place], [address], 8 13:35:13 physical therapist referral - At risk for falling 2017 018 [facility], [address], [place], [address], 8 16:26:43 spine center referral - patient in 2017, MRI showed crowding L2 nerve root on the left, having worsenign sx of sciatic pain, low back pain, leg pains bilateral ly. 2018 019 [facility], [address] [place] [address], [id number], 9 17:23:40 Procedures None recorded. Surgeries None recorded. Imaging XR, lumbar spine - chronic low back pain, worsening s/p fall in february [id number] 019 [facility], [address] [place] [address], [address], 9 10:29:46 XR, sacrum + coccyx - s/p fall in february, hx low back arthritis . pain worsening 2018 019 [facility], [address] [place] [address], [address], 9 10:29:44 Medication Orders tamsulosi n 0.4 mg capsule 2017 018 [id number], [address] [place], [address], 8 13:01:14 clorazepa te dipotassi um 3.75 mg tablet 2017 018 INTERFACE [id number], [address] [place], [address], 8 12:05:21 clorazepa te dipotassi um 3.75 mg tablet 2017 018 INTERFACE [facility], [address] [place], [address], 8 11:18:58 Patient TargetsNo targets recorded. Patient Instructions Encounter Date Encounter Id Patient Instructions Last Modified By Organization Details Last Modified Time 11/13/2017 [id number] anxiety disorder: care instructions [email or web address] Not available 11/13/2017 11:18:44 call or return for worsening or concerns. [email or web address] Not available 11/13/2017 11:13:19 I have reviewed the note and agree with the assessment and plan of care. [email or web address] Not available 11/13/2017 12:41:01 12/18/2017 [id number] preventing falls: care instructions [email or web address] Not available [...] medication. [email or web address] Not available 12/18/2017 13:20:44 06/11/2018 [id number] low back pain: exercises [email or web address] Not available 06/11/2018 13:24:20 call or return for worsening or concerns. [email or web address] Not available 06/11/2018 13:22:08 01/20/2019 [id number] preventing falls: care instructions [email or web address] Not available 01/20/2019 10:20:59 call or return for woraening or concerns. [email or web address] Not available 01/20/2019 10:20:56 Reviewed the risks and benefits of usp opiate use, OUD discussed with the patient. Reviewed the risks and benefits of other non-opioid pain therapies. Reviewed caution with driving, fall risk, treatment for constipation. Patient verbalizes understanding of risk and benefits, and of OUD. [email or web address] Not available 01/20/2019 09:46:37 Reason for Referral Urologist Referral for Incom plete emptying of urinary bladder pt has not seen urology in 2 years or more and wants to have consultation w/ urologist rather than SPORTS EQUIPMENT SUPERVISOR Referring Physician: Ricardo Dhillon, Internal Medicine, Encounter [...] Available [facility] [address] [place], [address], 09/11/2017 22:27:42 09/12/19 18 09/11/2017 CBC w/ auto diff RBC 4.68 M/mm3 (4.20- 5.40) Not Available [facility] [address] [place], [address], 09/11/2017 22:27:42 09/12/19 18 09/11/2017 CBC w/ auto diff HGB 14.7 gm/dL (11.7- 15.5) Not Available [facility] [address] [place], [address], 09/11/2017 22:27:42 09/12/19 18 09/11/2017 CBC w/ auto diff HCT 43.2 % (35.7- 45.8) Not Available [facility] [address] [place], [address], 09/11/2017 22:27:42 09/12/19 18 09/11/2017 CBC w/ auto diff MCV 92.3 fL (80.0- 100.0) Not Available [facility] [address] [place], [address], 09/11/2017 22:27:42 09/12/19 18 09/11/2017 CBC w/ auto diff MCH 31.4 pg (27.0- 34.0) Not Available [facility] [address] [place], [address], 09/11/2017 22:27:42 09/12/19 18 09/11/2017 CBC w/ auto diff MCHC 34.0 g/dL (33.0- 37.0) Not Available [facility] [address] [place], [address], 09/11/2017 22:27:42 09/12/19 18 09/11/2017 CBC w/ auto diff plt 230 K/mm3 (150-4 60) Not Available [facility] [address] [place], [address], 09/11/2017 22:27:42 09/12/19 18 09/11/2017 CBC w/ auto diff RDW-SD 45.7 fL (<47.0 ) Not Available [facility] [address] [place], [address], 09/11/2017 22:27:42 09/12/19 18 09/11/2017 CBC w/ auto diff MPV 9.5 fL (9.4-1 2.4) Not Available [facility] [address] [place], [address], 09/11/2017 22:27:42 09/12/19 18 09/11/2017 CBC w/ auto diff automated NRBC 0.0 #/100 _WBC' s Not Available [facility] [address] [place], [address], 09/11/2017 22:27:42 09/12/19 18 09/11/2017 CBC w/ auto diff abs. NRBC 0.0 K/mm3 Not Available [facility] [address] [place], [address], 09/11/2017 22:27:42 09/12/19 18 09/11/2017 CBC w/ auto diff neut # 4.7 K/mm3 (1.3-7 .0) Not Available [facility] [address] [place], [address], 09/11/2017 22:27:42 09/12/19 18 09/11/2017 CBC w/ auto diff lymph # 1.4 K/mm3 (0.8-3 .1) Not Available [facility] [address] [place], [address], 09/11/2017 22:27:42 09/12/19 18 09/11/2017 CBC w/ auto diff mono# 0.9 K/mm3 (0.4-0 .9) Not Available [facility] [address] [place], [address], 09/11/2017 22:27:42 09/12/19 18 09/11/2017 CBC w/ auto diff eo # 0.2 K/mm3 (0.0-0 .4) Not Available [facility] [address] [place], [address], 09/11/2017 22:27:42 09/12/19 18 09/11/2017 CBC w/ auto diff baso # 0.1 K/mm3 (0.0-0 .1) Not Available [facility] [address] [place], [address], 09/11/2017 22:27:42 09/12/19 18 09/11/2017 CBC w/ auto diff abs. imm gran 0.0 K/mm3 Not Available [facility] [address] [place], [address], 09/11/2017 22:27:42 09/12/19 18 09/11/2017 CBC w/ auto diff neut 64.7 % (44-76 ) Not Available [facility] [address] [place], [address], 09/11/2017 22:27:42 09/12/19 18 09/11/2017 CBC w/ auto diff lymph 18.7 % (15-43 ) Not Available [facility] [address] [place], [address], 09/11/2017 22:27:42 09/12/19 18 09/11/2017 CBC w/ auto diff monocyte 12.6 % (4.5-1 0.5) high Not Available [facility] [address], [address], 09/11/2017 22:27:42 09/12/19 18 09/11/2017 CBC w/ auto diff eo 2.5 % (0-6) Not Available [facility] [address], [address], 09/11/2017 22:27:42 09/12/19 18 09/11/2017 CBC w/ auto diff baso 1.2 % (0-2) Not Available [facility] [address], [address], 09/11/2017 22:27:42 09/12/19 18 09/11/2017 CBC w/ auto diff imm gran 0.3 % (0.0-0 .6) Not Available [facility] [address] [place], [address], 09/11/2017 22:27:42 09/12/19 18 09/11/2017 CMP, serum or plasm a glucose 104 mg/dL (70-99 ) high Not Available [facility] [address] [place], [address], 09/11/2017 23:29:56 09/12/19 18 09/11/2017 CMP, serum or plasm a BUN 11 mg/dL (8-23) Not Available [facility] [address] [place], [address], 09/11/2017 23:29:56 09/12/19 18 09/11/2017 CMP, serum or plasm a creatinine 0.8 mg/dL (0.5-1 .0) Not Available [facility] [address] [place], [address], 09/11/2017 23:29:56 09/12/19 18 09/11/2017 CMP, serum or plasm a sodium 134 mmol/ L (133-1 45) Not Available [facility] [address] [place], [address], 09/11/2017 23:29:56 09/12/19 18 09/11/2017 CMP, serum or plasm a potassium 4.6 mmol/ L (3.6-5 .2) Not Available [facility] [address] [place], [address], 09/11/2017 23:29:56 09/12/19 18 09/11/2017 CMP, serum or plasm a chloride 96 mmol/ L (98-10 7) low Not Available [facility] [address], [address], 09/11/2017 23:29:56 09/12/19 18 09/11/2017 CMP, serum or plasm a bicarbonate 23 mmol/ L (22-29 ) Not Available [facility] [address], [address], 09/11/2017 23:29:56 09/12/19 18 09/11/2017 CMP, serum or plasm a anion gap 15 (4-17) Not Available [facility] [address], [address], 09/11/2017 23:29:56 09/12/19 18 09/11/2017 CMP, serum or plasm a albumin 4.1 gm/dL (3.4-4 .8) Not Available [facility] [address], [address], 09/11/2017 23:29:56 09/12/19 18 09/11/2017 CMP, serum or plasm a calcium 9.3 mg/dL (8.6-1 0.5) Not Available [facility] [address], [address], 09/11/2017 23:29:56 09/12/1909/11/2017 CMP, serum or plasm a bilirubin,to della 0.4 mg/dL (0-1.2 ) Not Available [facility] [address], [address], 09/11/2017 23:29:56 09/12/19 18 09/11/2017 CMP, serum or plasm a total protein 6.6 gm/dL (6.2-8 .2) Not Available [facility] [address] [place], [address], 09/11/2017 23:29:56 09/12/19 18 09/11/2017 CMP, serum or plasm a Ag ratio 1.6 Not Available [facility] [address] [place], [address], 09/11/2017 23:29:56 09/12/19 18 09/11/2017 CMP, serum or plasm a AST 24 U/L (0-32) Not Available [facility] [address] [place], [address], 09/11/2017 23:29:56 09/12/19 18 09/11/2017 CMP, serum or plasm a alk phos 104 U/L (35-10 4) Not Available [facility] [address] [place], [address], 09/11/2017 23:29:56 09/12/19 18 09/11/2017 CMP, serum or plasm a ALT 22 U/L (0-33) Not Available [facility] [address] [place], [address], 09/11/2017 23:29:56 09/12/19 18 09/11/2017 CMP, serum [...] Available [facility] [address] [place], [address], 09/11/2017 23:29:56 09/12/19 18 09/11/2017 CMP, serum [...] Afric an Ameri cans. Not Available [facility] [address] [place], [address], 09/11/2017 23:29:56 09/12/19 18 09/11/2017 magne sium, serum or plasm a magnesium 1.6 mEq/L (1.3-1 .9) Not Available [facility] [address] [place], [address], 09/11/2017 23:29:57 06/15/1906/14/2018 CBC w/ auto diff WBC 7.5 K/mm3 (4.0-1 1.0) Not Available [facility] [address] [place], [address], 06/14/2018 13:55:52 06/15/1906/14/2018 CBC w/ auto diff RBC 4.66 M/mm3 (4.20- 5.40) Not Available [facility] [address] [place], [address], 06/14/2018 13:55:52 06/15/1906/14/2018 CBC w/ auto diff HGB 15.3 gm/dL (11.7- 15.5) Not Available [facility] [address] [place], [address], 06/14/2018 13:55:52 06/15/1906/14/2018 CBC w/ auto diff HCT 43.9 % (35.7- 45.8) Not Available [facility] [address] [place], [address], 06/14/2018 13:55:52 06/15/1906/14/2018 CBC w/ auto diff MCV 94.2 fL (80.0- 100.0) Not Available [facility] [address] [place], [address], 06/14/2018 13:55:52 06/15/1906/14/2018 CBC w/ auto diff MCH 32.8 pg (27.0- 34.0) Not Available [facility] [address] [place], [address], 06/14/2018 13:55:52 06/15/1906/14/2018 CBC w/ auto diff MCHC 34.9 g/dL (33.0- 37.0) Not Available [facility] [address] [place], [address], 06/14/2018 13:55:52 06/15/1906/14/2018 CBC w/ auto diff plt 256 K/mm3 (150-4 60) Not Available [facility] [address] [place], [address], 06/14/2018 13:55:52 06/15/1906/14/2018 CBC w/ auto diff RDW-SD 43.2 fL (<47.0 ) Not Available [facility] [address] [place], [address], 06/14/2018 13:55:52 06/15/1906/14/2018 CBC w/ auto diff MPV 9.9 fL (9.4-1 2.4) Not Available [facility] [address] [place], [address], 06/14/2018 13:55:52 06/15/1906/14/2018 CBC w/ auto diff automated NRBC 0.0 #/100 _WBC' s Not Available [facility] [address] [place], [address], 06/14/2018 13:55:52 06/15/1906/14/2018 CBC w/ auto diff abs. NRBC 0.0 K/mm3 Not Available [facility] [address] [place], [address], 06/14/2018 13:55:52 06/15/1906/14/2018 CMP, serum or plasm a glucose 125 mg/dL (70-99 ) high Not Available [facility] [address] [place], [address], 06/14/2018 15:24:51 06/15/1906/14/2018 CMP, serum or plasm a BUN 8 mg/dL (8-23) Not Available [facility] [address] [place], [address], 06/14/2018 15:24:51 06/15/1906/14/2018 CMP, serum or plasm a creatinine 0.8 mg/dL (0.5-1 .0) Not Available [facility] [address] [place], [address], 06/14/2018 15:24:51 06/15/1906/14/2018 CMP, serum or plasm a sodium 134 mmol/ L (133-1 45) Not Available [facility] [address] [place], [address], 06/14/2018 15:24:51 06/15/1906/14/2018 CMP, serum or plasm a potassium 4.6 mmol/ L (3.6-5 .2) Not Available [facility] [address] [place], [address], 06/14/2018 15:24:51 06/15/1906/14/2018 CMP, serum or plasm a chloride 98 mmol/ L (98-10 7) Not Available [facility] [address] [place], [address], 06/14/2018 15:24:51 06/15/1906/14/2018 CMP, serum or plasm a bicarbonate 23 mmol/ L (22-29 ) Not Available [facility] [address], [address], 06/14/2018 15:24:51 06/15/19 19 06/14/2018 CMP, serum or plasm a anion gap 13 (4-17) Not Available [facility] [address], [address], 06/14/2018 15:24:51 06/15/19 19 06/14/2018 CMP, serum or plasm a albumin 4.5 gm/dL (3.4-4 .8) Not Available [facility] [address] [place], [address], 06/14/2018 15:24:51 06/15/19 19 06/14/2018 CMP, serum or plasm a calcium 9.5 mg/dL (8.6-1 0.5) Not Available [facility] [address] [place], [address], 06/14/2018 15:24:51 06/15/19 19 06/14/2018 CMP, serum or plasm a bilirubin,to della 0.5 mg/dL (0-1.2 ) Not Available [facility] [address] [place], [address], 06/14/2018 15:24:51 06/15/19 19 06/14/2018 CMP, serum or plasm a total protein 7.0 gm/dL (6.2-8 .2) Not Available [facility] [address] [place], [address], 06/14/2018 15:24:51 06/15/19 19 06/14/2018 CMP, serum or plasm a Ag ratio 1.8 Not Available [facility] [address] [place], [address], 06/14/2018 15:24:51 06/15/19 19 06/14/2018 CMP, serum or plasm a AST 28 U/L (0-32) Not Available [facility] [address] [place], [address], 06/14/2018 15:24:51 06/15/19 19 06/14/2018 CMP, serum or plasm a alk phos 105 U/L (35-10 4) high Not Available [facility] [address] [place], [address], 06/14/2018 15:24:51 06/15/19 19 06/14/2018 CMP, serum or plasm a ALT 27 U/L (0-33) Not Available [facility] [address] [place], [address], 06/14/2018 15:24:51 06/15/19 19 06/14/2018 CMP, serum [...] Available [facility] [address] [place], [address], 06/14/2018 15:24:51 06/15/19 19 06/14/2018 CMP, serum [...] Available [facility] [address] [place], [address], 06/14/2018 15:24:51 06/15/1906/14/2018 lipid panel , serum cholesterol, total 192 mg/dL (<200) Not Available [facility] [address] [place], [address], 06/14/2018 15:24:52 06/15/1906/14/2018 lipid panel , serum triglyceride 190 mg/dL (<150) high Not Available [facility] [address] [place], [address], 06/14/2018 15:24:52 06/15/1906/14/2018 lipid panel , serum HDL chol 59 mg/dL (>39) Not Available [facility] [address] [place], [address], 06/14/2018 15:24:52 06/15/1906/14/2018 lipid panel , serum LDL cholesterol, calculated 95 mg/dL (0-130 ) Not Available [facility] [address] [place], [address], 06/14/2018 15:24:52 06/15/1906/14/2018 lipid panel , serum non HDL cholesterol (calc) 133 mg/dL (<160) Not Available [facility] [address] [place], [address], 06/14/2018 15:24:52 06/15/1906/14/2018 magne sium, serum or [...] Available [facility] [address] [place], [address], 06/14/2018 15:24:53 06/15/19 19 06/14/2018 CK (raymond lincoln), total , serum CK,total only 75 U/L (0-190 ) Not Available [facility] [address] [place], [address], 06/14/2018 15:24:54 06/15/19 19 06/14/2018 TSH, serum or plasm a TSH 0.89 mIU/m L (0.40- 4.00) Not Available [facility] [address] [place], [address], 06/14/2018 15:37:23 05/16/19 18 elect rocar diogr [...] ce of an acute proces s. WSN: [id number] Dictat ed By: Delonte Barrios MD Dictat ed Date/T erlinda: 10:26 a Review ed By: Delonte Barrios MD Signed By: Delonte Barrios MD Signed Date/T erlinda: 10:26 am Transc ribed By: CSB Transc ribed Date/T erlinda: 10:24 am Patien t Class: Outpat [facility] (Outpt Imaging) [address] [place], [address], 06/15/2018 15:07:23 06/15/19 19 06/14/2018 XR, lumba [...] ce of an acute proces s. WSN: [id number] Dictat ed By: Delonte Barrios MD Dictat ed Date/T erlinda: 10:26 a Review ed By: Delonte Barrios MD Signed By: Delonte Barrios MD Signed Date/T erlinda: 10:26 am Transc ribed By: PASTORA Transc ribed Date/T erlinda: 10:24 am Patien t Class: Outpat ient [facility] (Outpt Imaging) [address] [place], [address], 06/15/2018 15:07:23 Result Notes None recorded. Problems Name Problem SNOMED Code Status Onset Date Resolution Date Notes Provider Name and Address Organization Details Recorded Time Anemia due to chronic blood loss 386163535 Completed 201108/23/2013 RECORDED 10/31/19 12 2:42PM BY NICKY WOODS ON/ADDEN TORIE rosario [facility] 6 11:38:21 Anxiety state [id number] Active 2012 Becky Norton MA null, [facility] 7 17:00:55 Tobacco user [id number] Completed 201208/23/2013 RECORDED 01/28/20 13 1:17PM BY ALEXANDRE AGUILAR MA, ANNOTATI ON/ADDEN DUM Becky Norton MA null, [facility] 7 17:00:35 History of clinical finding in subject [id number] Completed 201209/17/2016 RECORDED 01/28/20 13 1:17PM BY ALEXANDRE AGUILAR MA, ANNOTATI ON/ADDEN DUM Becky Norton MA null, [facility] 7 17:01:11 Asthma [id number] Active 2012 Becky Norton MA null, [facility] 7 17:00:52 Screenin g for malignan t neoplasm of breast Completed 201410/31/2016 Dr. Susy Ortega, negative Becky Norton MA null, [facility] 7 13:35:13 Screenin g for malignan t neoplasm of breast Completed 201108/23/2013 RECORDED 10/31/19 12 2:41PM BY JEREL WOODSATI ON/ADDEN DUM Becky Norton MA null, [facility] 7 13:35:13 Chest pain 52662522 Completed 201108/23/2013 RECORDED 10/31/19 12 2:41PM BY JEREL WOODSATI ON/ADDEN DUM Michelle Degutis null, [facility] 6 11:38:22 Screenin g for malignan t neoplasm of colon Completed 201208/23/2013 RECORDED 04/30/19 13 2:37PM BY TEA HANDY MA, ANNOTATI ON/ADDEN DUM Michelle Degutis null, [facility] 6 11:38:22 Divertic ular disease of colon 499047433 Completed 201108/23/2013 STORY: PT WAS SEEN IN OUR OFFICE 11/30/09 FOR RECTAL BLEEDING AND WAS REFERRED TO GI FOR AN EVALUATI ON. THAT EVENING EVERY TIME THE PT ATE SOMETHIN G SHE WOULD BE GOING TO THE BATHROOM TO HAVE A BM THAT WAS FILLED WITH BLOOD. AFTER A FEW TIMES THE PT TOOK HERSELF TO [facility] TO BE EVALUATE D. THE ONLY SX THAT THE PT FELT WAS BLOATING AND CRAMPING EVERYTIM E SHE ATE. PT HAD TO UNDERGO A COLONOSC OPY WITCH SHOWED THAT THE PT HAD BLEEDING COMING FROM THE ASCENDIN G,DESCEN DING, AND TRANSVER SE COLON. PT WAS LATER TRANSFER RED TO [facility] TO BE WATCHED CLOSELY. PT WAS THEN PLACED ON A LIQUID DIET UNTIL THE TIME WHERE SHE COULD TOLERATE SOLID FOOD WITH OUT PASSING A BM THAT WAS BLOODY. MEDICATI ON HAS BEEN RECONSIL ED WITH THE PT AND SHE WILL F/U WITH MGD 12/21/09 .; RECORDED 10/31/19 12 2:41PM BY NICKY WOODS ON/ADDEN DUM [place] Aziza rosario [facility] 6 11:38:21 Hemorrha ge of colon [id number] Completed 201108/23/2013 STORY: STABLE/ STILL ANEMIC; RECORDED 10/31/19 12 2:41PM BY NICKY WOODS ON/ADDEN DUM Michelle Aziza rosario [facility] 6 11:38:22 Divertic ulitis of colon 306245366 Active 2011 Becky rosario [facility] 7 17:00:37 Dysuria 23910019 Completed 201108/23/2013 IMPRESSI ON: 3+ LEUKOCYT ES ON UA TODAY, COMPLETE D BACTRIM 2 DAYS AGO, START CIPRO AND SEND CULTURE; RECORDED 10/31/19 12 2:41PM BY NICKY WOODS ON/ADDEN DUM Becky rosario [facility] 7 17:01:13 Gastroes ophageal reflux disease 482464183 Active 2012 Becky rosario, [facility] 7 17:00:59 [facility] hyperten julisa 31226603 Active 2012 Becky rosario, [facility] 7 17:01:17 Essentia l hyperten julisa 53941068 Completed 201108/23/2013 RECORDED 10/31/19 12 2:41PM BY JEREL WOODSATI ON/ADDEN DUM Becky rosario, [facility] 7 17:01:17 External hemorrho ids 95145727 Active 2012 Becky rosario, [facility] 7 17:01:03 Influenz a vaccine needed [id number] 06 Completed 201208/23/2013 RECORDED 04/30/19 13 2:37PM BY TEA HANDY MA, ANNOTATI ON/ADDEN DUM Michelle Az[facility] 6 11:38:22 Follow-u p encounte r Completed 201208/23/2013 RECORDED 04/30/19 13 2:37PM BY TEA HANDY MA, ANNOTATI ON/ADDEN [facility] 6 11:38:22 Tobacco user 484368192 Active 2012 Becky rosario [facility] 7 17:00:35 Adult health examinat ion Completed 201209/17/2016 STORY: COLONOSC OPY DUE 2016/ SS/TUBUL AR ADENOMA; RECORDED 01/28/20 13 1:58PM BY RICARDO COLE MD, OFFICE VISIT Becky rosario [facility] 7 17:01:05 Adult health examinat ion Completed 201208/23/2013 RECORDED 04/30/19 13 2:37PM BY TEA HANDY MA, ANNOTATI ON/ADDEN DUM Becky rosario [facility] 7 17:01:05 Hearing loss 19381492 Active 2012 Becky rosario [facility] 7 17:00:40 History of Malignan t melanoma 770670435 Active 2013 Becky rosario [facility] 7 17:00:45 Hypo-osm olality and or hyponatr emia 296592592 Completed 201108/23/2013 RECORDED 10/31/19 12 2:41PM BY VIOLA MOLINA I ANNOTATI ON/ADDEN DUM [facility] 6 11:38:21 Impacted cerumen 73390682 Completed 201208/23/2013 RECORDED 01/28/20 13 1:17PM BY ALEXANDRE AGUILAR MA, ANNOTATI ON/ADDEN DUM Becky rosario [facility] 7 17:00:46 Irritabl e bowel syndrome [id number] Active 2012 Becky rosario [facility] 7 17:00:31 Renewal of prescrip tion Completed 201208/23/2013 RECORDED 04/30/19 13 2:37PM BY TEA HANDY MA, ANNOTATI ON/ADDEN DUM Michelle [facility] 6 11:38:22 Malignan t melanoma of skin [id number] Active 2013 Becky rosario [facility] 7 17:01:28 Active or passive immuniza tion Completed 200908/23/2013 RECORDED 03/01/19 10 9:56AM BY PILLO Masters NP, OFFICE VISIT Michelle Antoniousha abraham [facility] 6 11:38:22 Examinat ion for suspecte d mental disorder Completed 201108/23/2013 RECORDED 10/31/19 12 2:41PM BY NICKY WOODS ON/[facility] [employer] null, [facility] 6 11:38:22 Pre-surg girish evaluati on Completed 201208/23/2013 IMPRESSI ON: PT IS MEDICALL Y ABLE TO UNDERGO SURGERY, NO ACTIVE ISSUES, IS ABLE TO LAY FLAT AND STILL, EKG NL AND WILL GET LABS; RECORDED 01/28/20 13 1:17PM BY ALEXANDRE AGUILAR MA, ANNOTATI ON/[facility] [employer] null, [facility] 6 11:38:22 Tachycar wesley [id number] Completed 201108/23/2013 RECORDED 10/31/19 12 2:42PM BY NICKY WOODS ON/[facility] Degutis null, [facility] 6 11:38:22 Retentio n of urine 940584061 Completed 201208/23/2013 RECORDED 04/30/19 13 2:37PM BY TEA HANDY MA, ANNOTATI ON/[facility] Degutis null, [facility] 6 11:38:22 Urinary tract infectio us disease 39287457 Active 2013 Becky rosario, [facility] 7 17:01:20 Vaginiti s and vulvovag initis Completed 201108/23/2013 IMPRESSI ON: VAGINAL ITCHING AFTER COMPLETI NG ANTIBIOT ICS; RECORDED 10/31/19 12 2:42PM BY NICKY WOODS ON/[facility] Degutis null, [facility] 6 11:38:22 Impacted cerumen 16178081 Completed 09/17/2016 Becky rosario, [facility] 7 17:00:46 Hyponatr emia 86759849 Completed 09/04/2017 Dilshad Hall MD [address] [address], [facility] [place], [address] , [facility] 8 06:00:03 Anemia due to chronic blood loss 823602764 Completed 201109/15/2013 RECORDED 10/31/19 12 2:42PM BY VIOLA MOLINA I ANNOTATI ON/ADDEN DUM Michelle Degutis null, [facility] 6 11:38:21 Tobacco user [id number] Completed 201209/15/2013 RECORDED 01/28/20 13 1:17PM BY ALEXANDRE AGUILAR MA, ANNOTATI ON/ADDEN DUM Becky Norton MA null, [facility] 7 17:00:35 Chest pain 09404810 Completed 201109/15/2013 RECORDED 10/31/19 12 2:41PM BY VIOLA MOLINA I ANNOTATI ON/ADDEN DUM Michelle Degutis null, [facility] 6 11:38:22 Screenin g for malignan t neoplasm of colon Completed 201209/15/2013 RECORDED 04/30/19 13 2:37PM BY TEA HANDY MA, ANNOTATI ON/ADDEN DUM Michelle Degutis null, [facility] 6 11:38:22 Divertic ular disease of colon 782166886 Completed 201109/15/2013 STORY: PT WAS SEEN IN OUR OFFICE 11/30/09 FOR RECTAL BLEEDING AND WAS REFERRED TO GI FOR AN EVALUATI ON. THAT EVENING EVERY TIME THE PT ATE SOMETHIN G SHE WOULD BE GOING TO THE BATHROOM TO HAVE A BM THAT WAS FILLED WITH BLOOD. AFTER A FEW TIMES THE PT TOOK HERSELF TO [facility] TO BE EVALUATE D. THE ONLY SX THAT THE PT FELT WAS BLOATING AND CRAMPING EVERYTIM E SHE ATE. PT HAD TO UNDERGO A COLONOSC OPY PATITO SHOWED THAT THE PT HAD BLEEDING COMING FROM THE [place]END[place],DESCEN DING, AND TRANSVER SE COLON. PT WAS LATER TRANSFER RED TO [facility] TO BE WATCHED CLOSELY. PT WAS THEN PLACED ON A LIQUID DIET UNTIL THE TIME WHERE SHE COULD TOLERATE SOLID FOOD WITH OUT PASSING A BM THAT WAS BLOODY. MEDICATI ON HAS BEEN RECONSIL ED WITH THE PT AND SHE WILL F/U WITH MGD 12/21/09 .; RECORDED 10/31/19 12 2:41PM BY NICKY WOODS ON/ADDEN DUM Michelle Palmaedouard rosario [facility] 6 11:38:21 Hemorrha ge of colon 36655670 Completed 201109/15/2013 STORY: STABLE/ STILL ANEMIC; RECORDED 10/31/19 12 2:41PM BY NICKY WOODS ON/ADDEN DUM Michelle Antonioutis null, [facility] 6 11:38:22 Dysuria 74112907 Completed 201109/15/2013 IMPRESSI ON: 3+ LEUKOCYT ES ON UA TODAY, COMPLETE D BACTRIM 2 DAYS AGO, START CIPRO AND SEND CULTURE; RECORDED 10/31/19 12 2:41PM BY NICKY WOODS ON/ADDEN DUM Becky Norton [place] abraham [facility] 7 17:01:13 Influenz a vaccine needed [id number] 06 Completed 201209/15/2013 RECORDED 04/30/19 13 2:37PM BY TEA HANDY MA, ANNOTATI ON/ADDEN DUM Michelle Ervin abraham, [facility] 6 11:38:22 Follow-u p encounte r Completed 201209/15/2013 RECORDED 04/30/19 13 2:37PM BY TEA HANDY MA, ANNOTATI ON/ADDEN DUM Michelle Antoniousha rosario, [facility] 6 11:38:22 Hypo-osm olality and or hyponatr emia 340126789 Completed 201109/15/2013 RECORDED 10/31/19 12 2:41PM BY NICKY WOODS ON/ADDEN DUM Michelle Antonioutis null, [facility] 6 11:38:21 Impacted cerumen 20429673 Completed 201209/15/2013 RECORDED 01/28/20 13 1:17PM BY ALEXANDRE AGUILAR MA, ANNOTATI ON/ADDEN DUM Becky Norton MA null, [facility] 7 17:00:46 Renewal of prescrip tion Completed 201209/15/2013 RECORDED 04/30/19 13 2:37PM BY TEA HANDY MA, JERELATI ON/ADDEN DUM Michelle Degutis null, [facility] 6 11:38:22 Active or passive immuniza tion Completed 200909/15/2013 RECORDED 03/01/19 10 9:56AM BY PILLO Masters NP, OFFICE VISIT Michelle Pacoutis null, [facility] 6 11:38:22 Examinat ion for suspecte d mental disorder Completed 201109/15/2013 RECORDED 10/31/19 12 2:41PM BY NICKY WOODS ON/[facility] DUM Michelle Degutis null, [facility] 6 11:38:22 Pre-surg girish evaluati on Completed 201209/15/2013 IMPRESSI ON: PT IS MEDICALL Y ABLE TO UNDERGO SURGERY, NO ACTIVE ISSUES, IS ABLE TO LAY FLAT AND STILL, EKG NL AND WILL GET LABS; RECORDED 01/28/20 13 1:17PM BY ALEXANDRE AGUILAR MA, JERELATI ON/[facility] DUM Michelle Degutis null, [facility] 6 11:38:22 Tachycar wesley [id number] Completed 201109/15/2013 RECORDED 10/31/19 12 2:42PM BY JEREL WOODSATI ON/ADDEN DUM Michelle Degutis null, [facility] 6 11:38:22 Retentio n of urine 385479104 Completed 201209/15/2013 RECORDED 04/30/19 13 2:37PM BY TEA HANDY MA, ANNOTATI ON/ADDEN DUM Michelle Degutis null, [facility] 6 11:38:22 Vaginiti s and vulvovag initis Completed 201109/15/2013 IMPRESSI ON: VAGINAL ITCHING AFTER COMPLETI NG ANTIBIOT ICS; RECORDED 10/31/19 12 2:42PM BY NICKY WOODS ON/ADDEN DUM Michelle Degutis null, [facility] 6 11:38:22 Anemia due to chronic blood loss 236585791 Completed 201109/16/2013 RECORDED 10/31/19 12 2:42PM BY JEREL WOODSATI ON/ADDEN DUM Michelle Degutis null, [facility] 6 11:38:21 Tobacco user [id number] Completed 201209/16/2013 RECORDED 01/28/20 13 1:17PM BY ALEXANDRE AGUILAR MA, ANNOTATI ON/ADDEN DUM Becky Norton MA null, [facility] 7 17:00:35 Chest pain 06026342 Completed 201109/16/2013 RECORDED 10/31/19 12 2:41PM BY JEREL WOODSATI ON/ADDEN DUM Michelle Degutis null, [facility] 6 11:38:22 Screenin g for malignan t neoplasm of colon Completed 201209/16/2013 RECORDED 04/30/19 13 2:37PM BY TEA HANDY MA, JERELATI ON/ADDEN DUM Michelle Degutis null, [facility] 6 11:38:22 Divertic ular disease of colon 682320862 Completed 201109/16/2013 STORY: PT WAS SEEN IN OUR OFFICE 11/30/09 FOR RECTAL BLEEDING AND WAS REFERRED TO GI FOR AN EVALUATI ON. THAT EVENING EVERY TIME THE PT ATE SOMETHIN G SHE WOULD BE GOING TO THE BATHROOM TO HAVE A BM THAT WAS FILLED WITH BLOOD. AFTER A FEW TIMES THE PT TOOK HERSELF TO [facility] TO BE EVALUATE D. THE ONLY SX THAT THE PT FELT WAS BLOATING AND CRAMPING EVERYTIM E SHE ATE. PT HAD TO UNDERGO A COLONOSC OPY WITCH SHOWED THAT THE PT HAD BLEEDING COMING FROM THE [place]END[place],DESCEN DING, AND TRANSVER SE COLON. PT WAS LATER TRANSFER RED TO [facility] TO BE WATCHED CLOSELY. PT WAS THEN PLACED ON A LIQUID DIET UNTIL THE TIME WHERE SHE COULD TOLERATE SOLID FOOD WITH OUT PASSING A BM THAT WAS BLOODY. MEDICATI ON HAS BEEN RECONSIL ED WITH THE PT AND SHE WILL F/U WITH MGD 12/21/09 .; RECORDED 10/31/19 12 2:41PM BY NICKY WOODS ON/ADDEN DUM Michelle Antonioutedouard rosario [facility] 6 11:38:21 Hemorrha ge of colon 89862259 Completed 201109/16/2013 STORY: STABLE/ STILL ANEMIC; RECORDED 10/31/19 12 2:41PM BY NICKY WOODS ON/ADDEN DUM Michelle Antonioutedouard rosario [facility] 6 11:38:22 Dysuria 60550821 Completed 201109/16/2013 IMPRESSI ON: 3+ LEUKOCYT ES ON UA TODAY, COMPLETE D BACTRIM 2 DAYS AGO, START CIPRO AND SEND CULTURE; RECORDED 10/31/19 12 2:41PM BY NICKY WOODS ON/ADDEN TOREI rosario [facility] 7 17:01:13 Influenz a vaccine needed [id number] 06 Completed 201209/16/2013 RECORDED 04/30/19 13 2:37PM BY TEA HANDY MA, ANNOTATI ON/ADDEN DUM Michelle rosario [facility] 6 11:38:22 Follow-u p encounte r Completed 201209/16/2013 RECORDED 04/30/19 13 2:37PM BY TEA HANDY MA, ANNOTATI ON/ADDEN DUM Michelle rosario [facility] 6 11:38:22 Hypo-osm olality and or hyponatr emia 926809384 Completed 201109/16/2013 RECORDED 10/31/19 12 2:41PM BY NICKY WOODS/CHARLIE DUM Michelle Degutis null, [facility] 6 11:38:21 Impacted odilia 14478239 Completed 201209/16/2013 RECORDED 01/28/20 13 1:17PM BY ALEXANDRE AGUILAR MA, ANNOTATI ON/ADDEN DUM Becky Cierra GALLAGHER null, [facility] 7 17:00:46 Renewal of prescrip tion Completed 201209/16/2013 RECORDED 04/30/19 13 2:37PM BY TEA HANDY MA, JERELATI ON/ADDEN DUM Michelle Degutis null, [facility] 6 11:38:22 Active or passive immuniza tion Completed 200909/16/2013 RECORDED 03/01/19 10 9:56AM BY PILLO Masters NP, OFFICE VISIT [place] Pacoutis null, [facility] 6 11:38:22 Examinat ion for suspecte d mental disorder Completed 201109/16/2013 RECORDED 10/31/19 12 2:41PM BY NICKY WOODS ON/[facility] TORIE Michelle Degutis null, [facility] 6 11:38:22 Pre-surg girish evaluati on Completed 201209/16/2013 IMPRESSI ON: PT IS MEDICALL Y ABLE TO UNDERGO SURGERY, NO ACTIVE ISSUES, IS ABLE TO LAY FLAT AND STILL, EKG NL AND WILL GET LABS; RECORDED 01/28/20 13 1:17PM BY ALEXANDRE AGUILAR MA, NICKY ON/ADDEN DUM Michelle Degutis null, [facility] 6 11:38:22 Tachycar wesley [id number] Completed 201109/16/2013 RECORDED 10/31/19 12 2:42PM BY NICKY WOODS ON/ADDEN DUM Michelle Degutis null, [facility] 6 11:38:22 Retentio n of urine 291182941 Completed 201209/16/2013 RECORDED 04/30/19 13 2:37PM BY TEA HANDY MA, ANNOTATI ON/ADDEN DUM Michelle Ervin abraham [facility] 6 11:38:22 Vaginiti s and vulvovag initis Completed 201109/16/2013 IMPRESSI ON: VAGINAL ITCHING AFTER COMPLETI NG ANTIBIOT ICS; RECORDED 10/31/19 12 2:42PM BY NICKY WOODS ON/ADDEN DUM Michelle Ervin abraham [facility] 6 11:38:22 Dermatit is Completed 09/17/2016 Becky rosario [facility] 7 17:00:48 Dysuria 47296374 Completed 09/17/2016 Becky rosario [facility] 7 17:01:13 Insomnia 592869654 Active [place] Pacohermelindaedouard abraham [facility] 6 11:38:21 Advance directiv e discusse d with patient 492561410 Completed 09/17/2016 Becky rosario [facility] 7 17:01:07 Polyp of colon 65418203 Active [place] Aziza abraham [facility] 6 11:38:21 Chronic low back pain 328243949 Active 2018 Rebeca rosario [facility] 9 14:22:51 Problem Notes None recorded. Procedures Surgical History Date Name Laterality Status Provider Name and Address Organization Details Recorded Time 01/21/20 19 Mini-Cog Test completed Leila Julien MA [facility] 01/20/2019 09:52:44 12/30/19 18 Most Recent Mammogram completed Leila Julien MA [facility] 01/20/2019 09:47:42 12/19/19 18 Mini-Cog Test completed Naheed Veliz [facility] 12/18/2017 13:13:25 12/02/19 17 Fall Risk Assessment completed Becky Norton MA [facility] 12/01/2016 13:22:35 12/02/19 17 Mini-Cog Test completed Beckybridger Norton MA [facility] 12/01/2016 13:23:31 11/29/19 17 Mammogram both breasts completed Kimmy Yañez [facility] 12/09/2016 14:44:18 10/17/19 17 Date of Last Colonoscopy completed Paola Whittakera [facility] 12/09/2016 16:54:35 10/17/19 17 Colonoscopy completed Beckybridger Norton [facility] 10/24/2016 11:43:36 03/23/19 16 Fall Risk Assessment completed Beckybridger Norton [facility] 03/23/2015 13:55:01 03/23/19 16 Mini-Cog Test completed [facility] 03/23/2015 14:02:26 03/23/19 16 Advanced Care Planning completed Beckybridger Norton [facility] 03/23/2015 13:41:44 08/19/19 15 Date of Last Pap Smear completed Michelle Ervin [facility] 03/28/2015 11:40:33 02/23/19 11 Most Recent Bone Density completed Beckybridger Norton [facility] 03/23/2015 14:07:39 02/09/19 08 Appendectomy completed Tea Handy [facility] 03/02/2014 10:46:37 Imaging Results Imaging Date Name Status LastModified by Organization Details LastModified Time 05/15/2017 electrocardiogram completed Infor mation not available 05/15/2017 12:36:53 06/14/2018 XR, sacrum + coccyx, 2 or more view active [facility] [address] [place], [address], 06/15/2018 15:07:23 06/14/2018 XR, lumbar spine active [facility] [address] [place], [address], 06/15/2018 15:07:23 Procedure Notes None recorded. Medical Equipment None Reported. Allergies Allergen ID Allergen Name Allergen Category Reaction Reaction Severity Criticality Documentation Date Start Date Code Code System Note Provider Name and Address Organization Details Recorded Time 2935 latex environme nt,medica tion rash Not available Not available 08/23/20132012 83304 91 RxNorm [facility] [place] 7 17:00:18 Medications Name Sig Start [...] Updated DateTime 8 154.94 cm 31.4 kg/m2 15143.4 3 g 98.7 [degF] 96 % 96 % 89 /min 118 mm[Hg] 76 mm[Hg] Becky Norton MA [facility] 8 11:28:28 Date Recorded Body height Body mass index (BMI) Body weight Heart rate Oxygen saturation Oxygen saturation in Arterial blood by Pulse oximetry Body temperature Systolic blood pressure Diastolic blood pressure Provider Name and Address Organization Details Last Updated DateTime 8 154.94 cm 30.8 kg/m2 55321.5 6 g 94 /min 97 % 97 % 97.5 [degF] 136 mm[Hg] 74 mm[Hg] Viola Medina [facility] 8 10:41:30 Date Recorded Body height Body mass index (BMI) Body weight Body temperature Heart rate Oxygen saturation Oxygen saturation in Arterial blood by Pulse oximetry Systolic blood pressure Diastolic blood pressure Provider Name and Address Organization Details Last Updated DateTime 8 154.94 cm 30.5 kg/m2 15337.4 7 g 97.2 [degF] 86 /min 96 % 96 % 123 mm[Hg] 72 mm[Hg] Naheed Winnignacia [facility] 8 12:57:56 Date Recorded Body height Body mass index (BMI) Body weight Heart rate Oxygen saturation Oxygen saturation in Arterial blood by Pulse oximetry Body temperature Systolic blood pressure Diastolic blood pressure Provider Name and Address Organization Details Last Updated DateTime 9 154.94 cm 30.2 kg/m2 64227.7 8 g 92 /min 96 % 96 % 98.4 [degF] 124 mm[Hg] 78 mm[Hg] Ruby Garciau [facility] 9 12:59:19 Date Recorded Body height Body mass index (BMI) Body weight Oxygen saturation Oxygen saturation in Arterial blood by Pulse oximetry Heart rate Body temperature Systolic blood pressure Diastolic blood pressure Provider Name and Address Organization Details Last Updated DateTime 9 154.94 cm 30.7 kg/m2 74412.0 6 g 96 % 96 % 81 /min 98.1 [degF] 119 mm[Hg] 67 mm[Hg] Leila Julien MA [facility] 9 09:56:35 Social History Question Answer Notes LastModified by Organizat ion Details LastModified Time Tobacco Smoking Status [facility] 11:26:06 Do You Have [...] E-cigarettes Or Vape? Never Used Electronic Cigarettes [email or web address] Information not available 01/20/2019 What Is Your Occupation? [employer] Information not available 03/02/2014 Are There Any [...] Used Smokeless Tobacco? Never Used Smokeless Tobacco [email or web address] Information not available 01/20/2019 How Much Tobacco Do You Smoke? 1 PPW [email or web address] Information not available 01/20/2019 General Stress Level [...] virus, quadrivalent, PF 5 completed Becky rosario [facility] 03/23/2015 14:06:48 Influenza, high-dose, trivalent, PF 7 completed Not Available [facility] 02/26/2019 02:22:21 Novel Zalddawky-[id number], all formulations 0 completed Not Available [facility] 08/23/2013 13:38:52 pneumococcal polysaccharide PPV23 0 completed Not Available [facility] 08/23/2013 13:38:52 Influenza, split virus, trivalent, preservative 0 completed Not Available [facility] 08/23/2013 13:38:52 Influenza, split virus, trivalent, preservative 1 completed Not Available [facility] 08/23/2013 13:38:52 Influenza, split virus, trivalent, preservative 2 completed Not Available [facility] 08/23/2013 13:38:52 Influenza, split virus, trivalent, preservative 3 completed Not Available [facility] 08/23/2013 13:38:52 Influenza, high-dose, trivalent, PF 8 completed Not Available [facility] 02/26/2019 02:22:14 Influenza, high-dose, trivalent, PF 9 completed Not Available [facility] 02/26/2019 02:22:09 Past Encounters Encounter ID Performer Location Encounter Start Date Encounter Closed Date Diagnosis/Indication Diagnosis SNOMED-CT Code Diagnosis ICD10 Code Diagnosis Note [id number] [facility] Main Office [address] [facility] [address] [place] [address] 09/08/2013 11:14:56 09/08/2013 11:58:13 Essential hypertension 23124936 well controlled Asthma 032079733 followe d by pulm, well controlled on symbicort Anxiety state 266363748 Impacted cerumen 45861948 successful ly removed with ear lavage [id number] [facility]ce [address] [facility] [place] [address] 03/01/2009 00:00:00 [id number] auto[facility] erce [address] [facility],[address] [place] [address] 03/29/2009 00:00:00 [id number] auto[employer] erce [address] [facility],[address] [place] [address] 09/10/2009 00:00:00 [id number] [address] [address] [place] [address] 11/13/2009 00:00:00 [id number] auto[facility] er[address] [place] [address] 11/30/2009 00:00:00 [id number] [address] [address] [place] [address] 12/21/2009 00:00:00 [id number] [facility] [address] [place] [address] 02/11/2010 00:00:00 [id number] auto[facility]Comm erce [address] [facility] [address] [place] [address] 05/17/2010 00:00:00 [id number] autoEComm erce [address] [facility],[address] [place] [address] 08/23/2010 00:00:00 [id number] autoEComm erce [address] [facility] [address] [place] [address] 09/04/2010 00:00:00 [id number] autoEComm erce [address] [facility] [place] [address] 11/29/2010 00:00:00 [id number] autoEComm erce [address] [facility] [place] [address] 01/10/2011 00:00:00 [id number] autoEComm erce [address] [facility] [place] [address] 05/02/2011 00:00:00 [id number] auto[facility]Comm erce [address] [place] [address] 10/31/2011 00:00:00 [id number] autoEComm erce [address] [facility] [place] [address] 04/29/2012 00:00:00 [id number] autoEComm erce [address] [place] [address] 07/15/2012 00:00:00 [id number] [facility] [address] [facility] [address] [place] [address] 01/27/2013 00:00:00 [id number] [facility] Main Office [address] [address] [place] [address] 09/26/2013 13:41:44 09/26/2013 14:55:33 Dermatitis 155774831 candidal dermatitis [id number] [facility] Main Office [address] [address] [place] [address] 03/02/2014 12:39:53 03/02/2014 13:42:38 Essential hypertension 93860946 Hyponatremia 62404101 pt to see Dr Pride regularly/ pt aware that she needs to stop using clorazepat e / see psych referral Anxiety state 889304261 Dysuria 98843438 [id number] Becky Norton [place] Main Office [address] [address] [place] [address] 04/21/2014 14:46:19 04/21/2014 15:48:33 Essential hypertension 42097414 both meds helpful/ Diltiazem and lisinopril Gastroesop hageal reflux disease 854821409 pt on PPI Anxiety state 736758728 Asthma 180993801 [id number] Ricardo medellin Main Office [address] [address] [place] [address] 03/23/2015 13:27:48 03/23/2015 14:47:01 Adult health examination 593750895 Z00.00 At [facility] ed risk for falls 691619832 Z91.81 Advance di rective discussed with patient 623033599 Z71.89 pt will have her brother as health care proxy Essential hypertension 69278222 I10 both meds helpful/ Diltiazem and lisinopril Polyp of colon 25339527 K63.5 pt due for colonoscop y 2017 /tubular adenoma/We iss Asthma 676704195 J45.90 9 Anxiety state 585547653 F41.1 [id number] Ricardo medellin Main Office [address] [address] [place] [address] 10/05/2015 12:46:12 10/05/2015 13:40:50 Essential hypertension 44862794 I10 both meds helpful/ Diltiazem and lisinopril Asthma 564252475 J45.90 9 urged pt to get flu shot soon. Anxiety state 244760984 F41.1 [id number] Ricardo Carversusana medellin Main Office [address] [address] [place] [address] 06/19/2016 12:55:50 06/19/2016 14:13:50 Fatigue 86000535 R53.83 Abnormal weight loss 267 711185 R63.4 Diarrhea 16529970 R19.7 Nausea 592250019 R11.0 d/w pt to elevate HOB/ cont PPI Impaired f asting glycemia 061231066 R73.01 [id number] Ricardo Carversusana medellin Main Office [address] [address] [place] [address] 10/23/2016 14:30:06 10/23/2016 15:27:24 [id number] Ricardo Carversusana medellin Main Office [address] [address] [place] [address] 10/31/2016 13:21:48 10/31/2016 14:41:18 Lumbosacral radiculitis 36246682 M54.17 Influenza vaccine needed 6427203849 106 Z23 [id number] Ricardo Carversusana medellin Main Office [address] [address] [place] [address] 12/01/2016 13:04:53 12/01/2016 14:09:38 Adult health examination 952848548 Z00.00 Essential hypertension 27195667 I10 both meds helpful/ Diltiazem and lisinopril Anxiety state 939492074 F41.1 [id number] Ricardo Carversusana medellin Main Office [address] [address] [place] [address] 05/15/2017 11:16:16 05/15/2017 12:12:51 Anxiety state 443839011 F41.1 Essential hypertension 50038832 I10 both meds helpful/ Diltiazem and lisinopril Incomplete emptying of urinary bladder 136688244 R39.14 [id number] Maryanne fernandes Main Office [address] [address] [place] [address] 11/13/2017 10:36:20 11/13/2017 11:18:17 Anxiety state 686461893 F41.1 has been on med for 20+ years, she is taking 3.75mg daily, will try to cut the dose in half if possible. f/u in 1 month for wellness visit. Influenza vaccine needed 8724604931 106 Z23 Gastroesop hageal reflux disease 191680736 K21.9 Essential hypertension 31242266 I10 well controlled , continue meds as directed. [id number] Ramon Callahan MD Main Office [address] [address] [place] [address] 12/18/2017 12:40:39 12/18/2017 13:46:58 Adult health examination 925834481 Z00.00 UTD, she will call [facility]IST SUSPECT for appt Varicella vaccination 68 417398 Z23 Asthma 135318377 J45.90 9 Essential hypertension 87061993 I10 well controlled , continue meds as directed. Family his tory of Hypercholesterolemia 912030580 Z83.49 Anxiety state 361208091 F4Katerine.1 has been on med for 20+ years, she is taking 3.75mg daily, will try to cut the dose in half if possible. f/u in 1 month for wellness visit. [id number] NICOLÁS Fay Main Office [address] [address] [place] [address] 06/11/2018 12:42:51 06/11/2018 13:40:40 Low back pain 729911180 M54.5 Patient with chronic low back pain, in PT, seeing chiropract or, but wondering if she should be seeing someone else. Will check XR and refer back to [facility], she has seen them for this in the past. continue sx treatment, ibuprofen as needed. Cramp in lower limb 4499 81375 R25.2 Essential hypertension 70993048 I10 well controlled , continue meds as directed. Fatigue 94418528 R53.83 [id number] NICOLÁS Fay Main Office [address] [address] [place] [address] 01/20/2019 09:41:15 01/20/2019 10:33:29 Adult health examination 110831630 Z00.00 UTD, she has mammo scheduled, needs to call ARTIST SUSPECT. Influenza vaccine needed 7515307817 106 Z23 Impaired f asting glycemia 304351572 R73.01 in June, sugar 125 and she believes she was fasting Hyperlipidemia 86838196 E78.5 Health Concerns Section Related Observation LastModified by Organization Detai ls LastModified Time None Recorded Concern Status LastModified by Organization Details LastModified Time None Recorded Advance Directives Directive Y: Payers Encounter Date Sequence Insurance Name Policy Number Policy Menendez Covered Member ID Menendez Member ID Guarantor Name 05/15/2017 2 [place] [id number] Noris E Oparowski [id number] Noris E Oparowski 05/15/2017 1 [place] Noris E Oparowski [id number] Noris E Oparowski 11/13/2017 2 [place] [id number] Noris E Oparowski [id number] Noris E Oparowski 11/13/2017 1 [place] Noris E Oparowski [id number] Noris E Oparowski 12/18/2017 2 [place] [id number] Noris E Oparowski [id number] Noris E Oparowski 12/18/2017 1 [place] Noris E Oparowski [id number] Noris E Oparowski 06/11/2018 2 [place] [id number] Noris E Oparowski [id number] Noris E Oparowski 06/11/2018 1 [place] Noris E Oparowski [id number] Noris E Oparowski 01/20/2019 2 [place] [id number] Noris E Oparowski [id number] Noris E Oparowski 01/20/2019 1 [place] Noris E Oparowski [id number] Noris E Oparowski Notes Date Note Type Note Provider Name and Address Organization Details Recorded Time 05/15/2017 text/html Anxiety/Depressi onRepo rted bypatient.Quality:incr eased anxiety; pt reports that sthe plans to return to her pschologist Dr Valdes this year Severity:able to maintain relationships Associated Symptoms:no significant weight gain; mood good; pt has usp hx of benzo use , > 20 [...] no fever;incomplete emptying of bladder Ricardo rosario [facility] 05/15/2017 12:16:47 11/13/2017 text/html Anxiety/Depressi onRepo rted bypatient.Quality:incr eased anxiety; stress, car trouble Severity:able to maintain relationships Context:major life stressors;family problems Associated Symptoms:no significant weight gain;high irritability;hostility ;anxiety;hypersensitiv ity;anxiety with muscle tension; 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 DR saw Dr. Miller at [facility]. Was discharged in 2017 due to improvement with PT. 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 Since the fall her back pain is worse. Denis Marcos, [facility] [address] [address], [place], [address], [facility] 06/11/2018 13:40:34 01/20/2019 text/html Medicare Annual Wellness [...] states she found a new [place]CP in [place] but cannot be seen until May. Denis [facility] [address] [place] [address], [place], [address], [facility] 01/20/2019 10:57:40 OBGyn Episode No OBEpisode recorded.
== END 2024-02-25 10:42 | disposition home or self-care (01) ==
LOC: HO.ACS 10:18
PROVIDERS: PCP Family Medicine; Visit Provider Internal Medicine
DX: Z79.01 Long term (current) use of anticoagulants (principal)

== ENCOUNTER → 2024-02-25 10:18 | Outpatient (BNVA) | payer MEDICARE, MEDICAID, SELFPAY | PROVIDERS: PCP Family Medicine; Visit Provider Internal Medicine | DX: I26.94 Multiple subsegmental thrombotic pulmonary emboli without acute cor pulmonale (principal); Z86.718 Personal history of other venous thrombosis and embolism; Z79.01 Long term (current) use of anticoagulants | CPT/HCPCS: 85610; 99211 ==

== ENCOUNTER → 2024-03-03 15:14 | Outpatient (BNVA) | payer MEDICARE, MEDICAID, SELFPAY | PROVIDERS: PCP Family Medicine; Visit Provider Surgery Vascular Surgery | DX: I83.12 Varicose veins of left lower extremity with inflammation (principal) | CPT/HCPCS: 99212 ==

== ENCOUNTER 2024-03-10 10:37 | Outpatient (AMB) | payer MEDICARE, MEDICAID, SELFPAY ==
--- NOTE | 2024-03-10 10:47 | MHC.OFFVISCO ---
Intake Intake Visit Reasons: Anticoagulation Allergies Seasonal Allergies Allergy (Mild, Verified 03/10/24 10:40) runny nose latex Allergy (Verified 03/10/24 10:40) rash Medication List - Last Reconciled 03/10/24 by Leila Diallo RN albuterol sulfate 90 mcg/actuation 2 puffs inhalation Q8H PRN cetirizine (Zyrtec) 10 mg PO DAILY PRN cholecalciferol (vitamin D3) 50 mcg PO DAILY citalopram 20 mg PO DAILY 90 days clonazepam 0.5 mg PO BID PRN diltiazem HCl CD 120 mg PO DAILY 90 days fluticasone propion-salmeterol 500-50 mcg/dose (Wixela Inhub) 1 inh inhalation BID fluticasone propionate 50 mcg/actuation (Flonase Allergy Relief) 1 spray intranasal Q12H 30 days gabapentin 300 mg PO BID hydroxyzine HCl 10 mg PO TID PRN lisinopril 10 mg PO DAILY omeprazole 20 mg PO DAILY tamsulosin 0.4 mg PO BEDTIME 90 days warfarin 2 mg See Protocol PO DAILY 30 days Nursing Note INR 1.8- out of therapeutic range of 2-3 Medications and supplements reviewed Patient status: pt states nose bleeds less, sl nose bleed this am- enc humidification pt enc to call acs with any further nosebleeds Medications or supplements: no changes Diet: same Denies any signs and symptoms of bleeding or clotting or unusual bruising Bleeding, bruising, clotting discussed Nutritional guidance given: eat greens to lower, no reds for 2 days Dose: 2mg today then poss increase weekly dosing to 1mg x 6, 2mg x 1 F/U INR Date : ?1 week Patient verbalizing understanding of instructions given. pt states upcoming u/s LE - sees Dr Apodaca- hosp scheduling called to schedule, appt 03/24/24 composed note, dr apodaca Anti-Coag Initial Assessment Social Hx Patient Tobacco Use Status: Former Tobacco user (20 years quit around age 51 ) Tobacco use type: Cigarette Smoking packs per day: 1.0 alcohol intake: current Alcohol intake frequency: 0-2 drinks per day (about 2 daily with ice ) Cardiovascular Hx: HTN and Other (edma right foot > left foot had dvt ) Lung Disease HX: Asthma, COPD (believe r/t to work exposure and smoking) and DVT/PE (2022 after having RSV and covid vaccines- pt feels r/t to vaccines also ) Endocrine Hx: Diabetes (being monitored ) Musculoskeletal Hx: Arthritis (mostly hand - all over, ) GI Hx: Bleeding (GI, rectal) (age 60s x 2 weeks 10 blood transfusions no found cause at the time - and none since then ) and Diverticulosis Hx: Bladder Disorders (URGENCY ) and Other (UPCOMING RENAL EVALUATIONS ) Cancer HX: Yes (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 Illness/Depression: Yes (anxiety ) Coding Level of Care Code Est Patient Level 1 Diagnoses Current use of anticoagulant therapy Z79.01 Results AMB INR Fingerstick AMB INR Fingerstick 1.8 Last Edit by Leila Diallo RN on 03/10/24 10:51 interface delay Assessment & Plan Assessment & Plan (1) Current use of anticoagulant therapy: Code(s): Z79.01 - custodial (current) use of anticoagulants Category: Medical
[2024-03-10 10:59] LABS: Prothrombin Time Whole Bld POC 22.2 sec (11.1-13.5); ~PT, ~INR - Anti Coag Clinic 1.8 (0.9-1.1)
--- OUTSIDE RECORDS SUMMARY | 2024-03-10 14:17 | XMS_ITS | Encounter Summary ---
Author Organization [facility] Address [facility] [place] [address] Care Team Providers Care Strap Cutting Machine Operator Name Role Phone Gennaro Guillaume MD Primary Care Provider Yadira estrada [facility], Pcp Primary Care Provider Adriana e Reason for Visit * Reason Onset Date Comments Orders Call 07/21/2019 Encounter Details Date Type Department Care Team Description 07/21/2019 Telephone Medicine/Pediatrics - [address] [phone] Gennaro Guillaume MD Orders Call Social History Tobacco Use Types Packs/Day Years Used Date Smoking Tobacco: Former Cigarettes 1 15 Q uit: 05/17/1983 Smokeless Tobacco: Never Comments:quit in her 40's Alcohol Use Standard Drinks/Week Comments Yes 0 (1 standard drink = 0.6 oz pure alcohol) wine daily, 2 drinks daily with lots of ice Sex Assigned at Date Recorded Not on file documented as of this encounter Miscellaneous Notes * Telephone Encounter - Jackie Chna - 07/21/2019 11:50 AM EDT [facility] - fax # is listed below and the phone Is listed in the contacts info Tel # [phone] * Telephone Encounter - Melanie Horowitz - 07/21/2019 11:30 AM EDT Patient needs order faxed to who. Please provide phone number and fax * Telephone Encounter - Jackie Chan - 07/21/2019 11:01 AM EDT Pt needs the order faxed over to them from 07/18 referral - pt has appt on 07/24 - fax [phone] documented in this encounter Plan of Treatment Not on file documented as of this encounter Visit Diagnoses Not on filedocumented in this encounter Care Teams Strap Cutting Machine Operator Relationship Specialty Start Date End Date Gennaro Guillaume MD PCP - General Internal Medicine 12/16/18 09/22/19 [facility], Pcp PCP - General Internal Medicine 09/23/19 documented as of this encounter
--- OUTSIDE RECORDS SUMMARY | 2024-03-10 14:17 | XMS_ITS | Encounter Summary ---
Author Organization [facility] Address [address] [place] [address] Care Team Providers Care Forensic Dna Analyst Name Role Phone Gennaro Guillaume MD Primary Care Provider Yadira [facility], Pcp Primary Care Provider [facility] e Reason for Visit * Reason Onset Date Comments refill request 06/03/2019 Encounter Details Date Type Department Care Team Description 06/03/2019 Refill Medicine/Pediatrics - [address] [phone] Gennaro Guillaume MD refill request Social History Tobacco Use Types Packs/Day Years [...] encounter Miscellaneous Notes * Telephone Encounter - Geovanna Evangelista M.A. - 06/03/2019 1:27 PM EDT RX refused LVM to inform that Pt should be getting this through pulmonology per Stephanie Leahy * Telephone Encounter - Elier Ledesma M.A. - 06/03/2019 11:58 AM EDT Last ov 05/17/19 * Telephone Encounter - Jackie Chan - 06/03/2019 11:14 AM EDT Patient would like script to be: E-PRESCRIBED/FAXED TO PHARMACY WHEN WAS THE PATIENT'S LAST APPOINTMENT IN ADULT MEDICINE? 05/17/19 WHEN WAS THE LAST TIME THE PATIENT SAW THEIR PCP? Same as above Does patient have an upcoming appointment? Yes 06/17/19 (THE MEDICATION REQUESTED IS ON THE MED LIST ABOVE) All of the medications requested were on the CURRENT MEDS list Did you check the Pharmacy information above?: YES Patient wants: 90 -day supply Is this a mail order prescription request ? NO If the refill is from a FAXED refill request what is the RX # listed on the fax? N/A Patients current insurance carrier is: [place] / [place] / Product Type: MEDICARE [id number] documented in this encounter Plan of Treatment Not on file documented as of this encounter Visit Diagnoses Not on filedocumented in this encounter Care Teams Forensic Dna Analyst Relationship Specialty Start Date End Date Gennaro Guillaume MD PCP - General Internal Medicine [facility] 09/23/19 documented as of this encounter
--- OUTSIDE RECORDS SUMMARY | 2024-03-10 14:17 | XMS_ITS | Data Portability ---
Author Organization [facility], Main Office Address [address] [facility] [address] [place] [address] Care Team Providers Care Sign Board Erector Name Role Phone ABDIEL ORTEGA Green Building Architect GRACIELA MILLER Urologist [phone] ABDIEL LOZANO Char Conveyor Tender Cellar [phone] URBAN PRIDE Solar Design Engineer HUMBERTO SINGH Structural Iron Worker [phone] RICARDO HUGHES Chiropractor [phone] [facility] Physical Therapist DENIS MARCOS Primary Care Provider [phone] Assessment No assessment recorded. Plan of Treatment Reminders Order Date Submit Date Provider Last Modified By Organization Details Last Modified Time Details Appointments None recorded. Lab lipid panel, serum 2017 018 TIMOTHY [facility], [address] [place], [address], 9 15:24:52 CMP, serum or plasma 2017 018 toni [facility], [address], [address], 9 11:56:02 magnesium , serum or plasma 2018 019 TIMOTHY [facility], [address] [place], [address], 9 15:24:53 CK (creatine kinase), total, serum 2018 019 TIMOTHY [facility], [address] [place], [address], 9 15:24:54 CBC w/ auto diff 2018 019 TIMOTHY [facility], [address] [place], [address], 9 13:55:52 CMP, serum or plasma 2018 019 TIMOTHY [facility], [address] [place], [address], 9 15:24:51 TSH, serum or plasma 2018 019 TIMOTHY [facility], [address] [place], [address], 9 15:37:23 HbA1c (hemoglob in A1c), blood 2018 019 [facility], [address] [place], [address], 0 09:38:13 BMP, serum or plasma 2018 019 [facility], [address] [place], [address], 0 09:38:13 lipid panel, serum [address] [facility] [facility], [address] [place], [address], 0 09:38:13 Referral urologist referral - pt has not seen urology in 2 years or more and wants to have consultat ion w/ urologist rather than EXERCISER 2017 018 scott Crane MD, [address], [place], [address], 8 13:35:13 physical therapist referral - At risk for falling 2017 018 [facility], [address], [place], [address], 8 16:26:43 spine center referral - patient in 2017, MRI showed crowding L2 nerve root on the left, having worsenign sx of sciatic pain, low back pain, leg pains bilateral ly. 2018 019 isaías [facility], [address] [place] [address], [id number], 9 17:23:40 Procedures None recorded. Surgeries None recorded. Imaging XR, lumbar spine - chronic low back pain, worsening s/p fall in february [id number] 019 [facility], [address] [place] [address], [address], 9 10:29:46 XR, sacrum + coccyx - s/p fall in february, hx low back arthritis . pain worsening 2018 019 [facility], [address] [place] [address], [address], 9 10:29:44 Medication Orders tamsulosi n 0.4 mg capsule 2017 018 [id number], [address] [place], [address], 8 13:01:14 clorazepa te dipotassi um 3.75 mg tablet 2017 018 INTERFACE [id number], [address] [place], [address], 8 12:05:21 clorazepa te dipotassi um 3.75 mg tablet 2017 018 INTERFACE [id number], [address] [place], [address], 8 11:18:58 Patient TargetsNo targets recorded. Patient Instructions Encounter Date Encounter Id Patient Instructions Last Modified By Organization Details Last Modified Time 11/13/2017 [id number] anxiety disorder: care instructions [email or web address] Not available 11/13/2017 11:18:44 call or return for worsening or concerns. [email or web address] Not available 11/13/2017 11:13:19 I have reviewed the note and agree with the assessment and plan of care. [email or web address] Not available 11/13/2017 12:41:01 12/18/2017 [id number] preventing falls: care instructions [email or web address] Not available [...] medication. [email or web address] Not available 12/18/2017 13:20:44 06/11/2018 [id number] low back pain: exercises [email or web address] Not available 06/11/2018 13:24:20 call or return for worsening or concerns. [email or web address] Not available 06/11/2018 13:22:08 01/20/2019 [id number] preventing falls: care instructions [email or web address] Not available 01/20/2019 10:20:59 call or return for woraening or concerns. [email or web address] Not available 01/20/2019 10:20:56 Reviewed the risks and benefits of correction opiate use, OUD discussed with the patient. Reviewed the risks and benefits of other non-opioid pain therapies. Reviewed caution with driving, fall risk, treatment for constipation. Patient verbalizes understanding of risk and benefits, and of OUD. [email or web address] Not available 01/20/2019 09:46:37 Reason for Referral Urologist Referral for Incom plete emptying of urinary bladder pt has not seen urology in 2 years or more and wants to have consultation w/ urologist rather than EXERCISER Referring Physician: Ricardo Dhillon, Internal Medicine, Encounter [...] Available [facility] [address] [place], [address], 09/11/2017 22:27:42 09/12/19 18 09/11/2017 CBC w/ auto diff RBC 4.68 M/mm3 (4.20- 5.40) Not Available [facility] [address] [place], [address], 09/11/2017 22:27:42 09/12/19 18 09/11/2017 CBC w/ auto diff HGB 14.7 gm/dL (11.7- 15.5) Not Available [facility] [address] [place], [address], 09/11/2017 22:27:42 09/12/19 18 09/11/2017 CBC w/ auto diff HCT 43.2 % (35.7- 45.8) Not Available [facility] [address] [place], [address], 09/11/2017 22:27:42 09/12/19 18 09/11/2017 CBC w/ auto diff MCV 92.3 fL (80.0- 100.0) Not Available [facility] [address] [place], [address], 09/11/2017 22:27:42 09/12/19 18 09/11/2017 CBC w/ auto diff MCH 31.4 pg (27.0- 34.0) Not Available [facility] [address] [place], [address], 09/11/2017 22:27:42 09/12/19 18 09/11/2017 CBC w/ auto diff MCHC 34.0 g/dL (33.0- 37.0) Not Available [facility] [address] [place], [address], 09/11/2017 22:27:42 09/12/19 18 09/11/2017 CBC w/ auto diff plt 230 K/mm3 (150-4 60) Not Available [facility] [address] [place], [address], 09/11/2017 22:27:42 09/12/19 18 09/11/2017 CBC w/ auto diff RDW-SD 45.7 fL (<47.0 ) Not Available [facility] [address] [place], [address], 09/11/2017 22:27:42 09/12/19 18 09/11/2017 CBC w/ auto diff MPV 9.5 fL (9.4-1 2.4) Not Available [facility] [address] [place], [address], 09/11/2017 22:27:42 09/12/19 18 09/11/2017 CBC w/ auto diff automated NRBC 0.0 #/100 _WBC' s Not Available [facility] [address] [place], [address], 09/11/2017 22:27:42 09/12/19 18 09/11/2017 CBC w/ auto diff abs. NRBC 0.0 K/mm3 Not Available [facility] [address] [place], [address], 09/11/2017 22:27:42 09/12/19 18 09/11/2017 CBC w/ auto diff neut # 4.7 K/mm3 (1.3-7 .0) Not Available [facility] [address] [place], [address], 09/11/2017 22:27:42 09/12/19 18 09/11/2017 CBC w/ auto diff lymph # 1.4 K/mm3 (0.8-3 .1) Not Available [facility] [address] [place], [address], 09/11/2017 22:27:42 09/12/19 18 09/11/2017 CBC w/ auto diff mono# 0.9 K/mm3 (0.4-0 .9) Not Available [facility] [address] [place], [address], 09/11/2017 22:27:42 09/12/19 18 09/11/2017 CBC w/ auto diff eo # 0.2 K/mm3 (0.0-0 .4) Not Available [facility] [address] [place], [address], 09/11/2017 22:27:42 09/12/19 18 09/11/2017 CBC w/ auto diff baso # 0.1 K/mm3 (0.0-0 .1) Not Available [facility] [address] [place], [address], 09/11/2017 22:27:42 09/12/19 18 09/11/2017 CBC w/ auto diff abs. imm gran 0.0 K/mm3 Not Available [facility] [address] [place], [address], 09/11/2017 22:27:42 09/12/19 18 09/11/2017 CBC w/ auto diff neut 64.7 % (44-76 ) Not Available [facility] [address] [place], [address], 09/11/2017 22:27:42 09/12/19 18 09/11/2017 CBC w/ auto diff lymph 18.7 % (15-43 ) Not Available [facility] [address] [place], [address], 09/11/2017 22:27:42 09/12/19 18 09/11/2017 CBC w/ auto diff monocyte 12.6 % (4.5-1 0.5) high Not Available [facility] [address], [address], 09/11/2017 22:27:42 09/12/19 18 09/11/2017 CBC w/ auto diff eo 2.5 % (0-6) Not Available [facility] [address], [address], 09/11/2017 22:27:42 09/12/19 18 09/11/2017 CBC w/ auto diff baso 1.2 % (0-2) Not Available [facility] [address], [address], 09/11/2017 22:27:42 09/12/19 18 09/11/2017 CBC w/ auto diff imm gran 0.3 % (0.0-0 .6) Not Available [facility] [address] [place], [address], 09/11/2017 22:27:42 09/12/19 18 09/11/2017 CMP, serum or plasm a glucose 104 mg/dL (70-99 ) high Not Available [facility] [address] [place], [address], 09/11/2017 23:29:56 09/12/19 18 09/11/2017 CMP, serum or plasm a BUN 11 mg/dL (8-23) Not Available [facility] [address] [place], [address], 09/11/2017 23:29:56 09/12/19 18 09/11/2017 CMP, serum or plasm a creatinine 0.8 mg/dL (0.5-1 .0) Not Available [facility] [address] [place], [address], 09/11/2017 23:29:56 09/12/19 18 09/11/2017 CMP, serum or plasm a sodium 134 mmol/ L (133-1 45) Not Available [facility] [address] [place], [address], 09/11/2017 23:29:56 09/12/19 18 09/11/2017 CMP, serum or plasm a potassium 4.6 mmol/ L (3.6-5 .2) Not Available [facility] [address] [place], [address], 09/11/2017 23:29:56 09/12/19 18 09/11/2017 CMP, serum or plasm a chloride 96 mmol/ L (98-10 7) low Not Available [facility] [address], [address], 09/11/2017 23:29:56 09/12/19 18 09/11/2017 CMP, serum or plasm a bicarbonate 23 mmol/ L (22-29 ) Not Available [facility] [address], [address], 09/11/2017 23:29:56 09/12/19 18 09/11/2017 CMP, serum or plasm a anion gap 15 (4-17) Not Available [facility] [address], [address], 09/11/2017 23:29:56 09/12/19 18 09/11/2017 CMP, serum or plasm a albumin 4.1 gm/dL (3.4-4 .8) Not Available [facility] [address], [address], 09/11/2017 23:29:56 09/12/19 18 09/11/2017 CMP, serum or plasm a calcium 9.3 mg/dL (8.6-1 0.5) Not Available [facility] [address], [address], 09/11/2017 23:29:56 09/12/1909/11/2017 CMP, serum or plasm a bilirubin,to della 0.4 mg/dL (0-1.2 ) Not Available [facility] [address], [address], 09/11/2017 23:29:56 09/12/19 18 09/11/2017 CMP, serum or plasm a total protein 6.6 gm/dL (6.2-8 .2) Not Available [facility] [address] [place], [address], 09/11/2017 23:29:56 09/12/19 18 09/11/2017 CMP, serum or plasm a Ag ratio 1.6 Not Available [facility] [address] [place], [address], 09/11/2017 23:29:56 09/12/19 18 09/11/2017 CMP, serum or plasm a AST 24 U/L (0-32) Not Available [facility] [address] [place], [address], 09/11/2017 23:29:56 09/12/19 18 09/11/2017 CMP, serum or plasm a alk phos 104 U/L (35-10 4) Not Available [facility] [address] [place], [address], 09/11/2017 23:29:56 09/12/19 18 09/11/2017 CMP, serum or plasm a ALT 22 U/L (0-33) Not Available [facility] [address] [place], [address], 09/11/2017 23:29:56 09/12/19 18 09/11/2017 CMP, serum [...] Available [facility] [address] [place], [address], 09/11/2017 23:29:56 09/12/19 18 09/11/2017 CMP, serum [...] Afric an Ameri cans. Not Available [facility] [address] [place], [address], 09/11/2017 23:29:56 09/12/19 18 09/11/2017 magne sium, serum or plasm a magnesium 1.6 mEq/L (1.3-1 .9) Not Available [facility] [address] [place], [address], 09/11/2017 23:29:57 06/15/1906/14/2018 CBC w/ auto diff WBC 7.5 K/mm3 (4.0-1 1.0) Not Available [facility] [address] [place], [address], 06/14/2018 13:55:52 06/15/1906/14/2018 CBC w/ auto diff RBC 4.66 M/mm3 (4.20- 5.40) Not Available [facility] [address] [place], [address], 06/14/2018 13:55:52 06/15/1906/14/2018 CBC w/ auto diff HGB 15.3 gm/dL (11.7- 15.5) Not Available [facility] [address] [place], [address], 06/14/2018 13:55:52 06/15/1906/14/2018 CBC w/ auto diff HCT 43.9 % (35.7- 45.8) Not Available [facility] [address] [place], [address], 06/14/2018 13:55:52 06/15/1906/14/2018 CBC w/ auto diff MCV 94.2 fL (80.0- 100.0) Not Available [facility] [address] [place], [address], 06/14/2018 13:55:52 06/15/1906/14/2018 CBC w/ auto diff MCH 32.8 pg (27.0- 34.0) Not Available [facility] [address] [place], [address], 06/14/2018 13:55:52 06/15/1906/14/2018 CBC w/ auto diff MCHC 34.9 g/dL (33.0- 37.0) Not Available [facility] [address] [place], [address], 06/14/2018 13:55:52 06/15/1906/14/2018 CBC w/ auto diff plt 256 K/mm3 (150-4 60) Not Available [facility] [address] [place], [address], 06/14/2018 13:55:52 06/15/1906/14/2018 CBC w/ auto diff RDW-SD 43.2 fL (<47.0 ) Not Available [facility] [address] [place], [address], 06/14/2018 13:55:52 06/15/1906/14/2018 CBC w/ auto diff MPV 9.9 fL (9.4-1 2.4) Not Available [facility] [address] [place], [address], 06/14/2018 13:55:52 06/15/1906/14/2018 CBC w/ auto diff automated NRBC 0.0 #/100 _WBC' s Not Available [facility] [address] [place], [address], 06/14/2018 13:55:52 06/15/1906/14/2018 CBC w/ auto diff abs. NRBC 0.0 K/mm3 Not Available [facility] [address] [place], [address], 06/14/2018 13:55:52 06/15/1906/14/2018 CMP, serum or plasm a glucose 125 mg/dL (70-99 ) high Not Available [facility] [address] [place], [address], 06/14/2018 15:24:51 06/15/1906/14/2018 CMP, serum or plasm a BUN 8 mg/dL (8-23) Not Available [facility] [address] [place], [address], 06/14/2018 15:24:51 06/15/1906/14/2018 CMP, serum or plasm a creatinine 0.8 mg/dL (0.5-1 .0) Not Available [facility] [address] [place], [address], 06/14/2018 15:24:51 06/15/1906/14/2018 CMP, serum or plasm a sodium 134 mmol/ L (133-1 45) Not Available [facility] [address] [place], [address], 06/14/2018 15:24:51 06/15/1906/14/2018 CMP, serum or plasm a potassium 4.6 mmol/ L (3.6-5 .2) Not Available [facility] [address] [place], [address], 06/14/2018 15:24:51 06/15/1906/14/2018 CMP, serum or plasm a chloride 98 mmol/ L (98-10 7) Not Available [facility] [address] [place], [address], 06/14/2018 15:24:51 06/15/1906/14/2018 CMP, serum or plasm a bicarbonate 23 mmol/ L (22-29 ) Not Available [facility] [address] [place], [address], 06/14/2018 15:24:51 06/15/19 19 06/14/2018 CMP, serum or plasm a anion gap 13 (4-17) Not Available [facility] [address], [address], 06/14/2018 15:24:51 06/15/19 19 06/14/2018 CMP, serum or plasm a albumin 4.5 gm/dL (3.4-4 .8) Not Available [facility] [address] [place], [address], 06/14/2018 15:24:51 06/15/19 19 06/14/2018 CMP, serum or plasm a calcium 9.5 mg/dL (8.6-1 0.5) Not Available [facility] [address] [place], [address], 06/14/2018 15:24:51 06/15/19 19 06/14/2018 CMP, serum or plasm a bilirubin,to della 0.5 mg/dL (0-1.2 ) Not Available [facility] [address] [place], [address], 06/14/2018 15:24:51 06/15/19 19 06/14/2018 CMP, serum or plasm a total protein 7.0 gm/dL (6.2-8 .2) Not Available [facility] [address] [place], [address], 06/14/2018 15:24:51 06/15/19 19 06/14/2018 CMP, serum or plasm a Ag ratio 1.8 Not Available [facility] [address] [place], [address], 06/14/2018 15:24:51 06/15/19 19 06/14/2018 CMP, serum or plasm a AST 28 U/L (0-32) Not Available [facility] [address] [place], [address], 06/14/2018 15:24:51 06/15/19 19 06/14/2018 CMP, serum or plasm a alk phos 105 U/L (35-10 4) high Not Available [facility] [address] [place], [address], 06/14/2018 15:24:51 06/15/19 19 06/14/2018 CMP, serum or plasm a ALT 27 U/L (0-33) Not Available [facility] [address] [place], [address], 06/14/2018 15:24:51 06/15/19 19 06/14/2018 CMP, serum [...] Available [facility] [address] [place], [address], 06/14/2018 15:24:51 06/15/19 19 06/14/2018 CMP, serum [...] Available [facility] [address] [place], [address], 06/14/2018 15:24:51 06/15/1906/14/2018 lipid panel , serum cholesterol, total 192 mg/dL (<200) Not Available [facility] [address] [place], [address], 06/14/2018 15:24:52 06/15/1906/14/2018 lipid panel , serum triglyceride 190 mg/dL (<150) high Not Available [facility] [address] [place], [address], 06/14/2018 15:24:52 06/15/1906/14/2018 lipid panel , serum HDL chol 59 mg/dL (>39) Not Available [facility] [address] [place], [address], 06/14/2018 15:24:52 06/15/1906/14/2018 lipid panel , serum LDL cholesterol, calculated 95 mg/dL (0-130 ) Not Available [facility] [address] [place], [address], 06/14/2018 15:24:52 06/15/1906/14/2018 lipid panel , serum non HDL cholesterol (calc) 133 mg/dL (<160) Not Available [facility] [address] [place], [address], 06/14/2018 15:24:52 06/15/1906/14/2018 magne sium, serum or [...] Available [facility] [address] [place], [address], 06/14/2018 15:24:53 06/15/19 19 06/14/2018 CK (raymond lincoln), total , serum CK,total only 75 U/L (0-190 ) Not Available [facility] [address] [place], [address], 06/14/2018 15:24:54 06/15/19 19 06/14/2018 TSH, serum or plasm a TSH 0.89 mIU/m L (0.40- 4.00) Not Available [facility] [address] [place], [address], 06/14/2018 15:37:23 05/16/19 18 elect rocar diogr [...] ce of an acute proces s. WSN: [id number] Dictat ed By: Delonte Barrios MD Dictat ed Date/T erlinda: 10:26 a Review ed By: Delonte Barrios MD Signed By: Delonte Barrios MD Signed Date/T erlinda: 10:26 am Transc ribed By: CSB Transc ribed Date/T erlinda: 10:24 am Patien t Class: Outpat [facility] (Outpt Imaging) [address] [place], [address], 06/15/2018 15:07:23 06/15/19 19 06/14/2018 XR, lumba [...] ce of an acute proces s. WSN: [id number] Dictat ed By: Delonte Barrios MD Dictat ed Date/T erlinda: 10:26 a Review ed By: Delonte Barrios MD Signed By: Delonte Barrios MD Signed Date/T erlinda: 10:26 am Transc ribed By: PASTORA Transc ribed Date/T erlinda: 10:24 am Patien t Class: Outpat ient [facility] (Outpt Imaging) [address] [place], [address], 06/15/2018 15:07:23 Result Notes None recorded. Problems Name Problem SNOMED Code Status Onset Date Resolution Date Notes Provider Name and Address Organization Details Recorded Time Anemia due to chronic blood loss 122931055 Completed 201108/23/2013 RECORDED 10/31/19 12 2:42PM BY NICKY WOODS ON/ADDEN TORIE rosario [facility] 6 11:38:21 Anxiety state [id number] Active 2012 Becky Norton MA null, [facility] 7 17:00:55 Tobacco user [id number] Completed 201208/23/2013 RECORDED 01/28/20 13 1:17PM BY ALEXANDRE AGUILAR MA, ANNOTATI ON/ADDEN DUM Becky Norton MA null, [facility] 7 17:00:35 History of clinical finding in subject [id number] Completed 201209/17/2016 RECORDED 01/28/20 13 1:17PM BY ALEXANDRE AGUILAR MA, ANNOTATI ON/ADDEN DUM Becky Norton MA null, [facility] 7 17:01:11 Asthma [id number] Active 2012 Becky Norton MA null, [facility] 7 17:00:52 Screenin g for malignan t neoplasm of breast Completed 201410/31/2016 Dr. Susy Ortega, negative Becky Norton MA null, [facility] 7 13:35:13 Screenin g for malignan t neoplasm of breast Completed 201108/23/2013 RECORDED 10/31/19 12 2:41PM BY JEREL WOODSATI ON/ADDEN DUM Becky Norton MA null, [facility] 7 13:35:13 Chest pain [id number] Completed 201108/23/2013 RECORDED 10/31/19 12 2:41PM BY JEREL WOODSATI ON/ADDEN DUM Michelle Degutis null, [facility] 6 11:38:22 Screenin g for malignan t neoplasm of colon Completed 201208/23/2013 RECORDED 04/30/19 13 2:37PM BY TEA HANDY MA, ANNOTATI ON/ADDEN DUM Michelle Degutis null, [facility] 6 11:38:22 Divertic ular disease of colon [id number] Completed 201108/23/2013 STORY: PT WAS SEEN IN OUR OFFICE 11/30/09 FOR RECTAL BLEEDING AND WAS REFERRED TO GI FOR AN EVALUATI ON. THAT EVENING EVERY TIME THE PT ATE SOMETHIN G SHE WOULD BE GOING TO THE BATHROOM TO HAVE A BM THAT WAS FILLED WITH BLOOD. AFTER A FEW TIMES THE PT TOOK HERSELF TO [facility] TO BE EVALUATE D. THE ONLY SX THAT THE PT FELT WAS BLOATING AND CRAMPING EVERYTIM E SHE ATE. PT HAD TO UNDERGO A COLONOSC OPY WITCH SHOWED THAT THE PT HAD BLEEDING COMING FROM THE ASCENDIN G,DESCEN DING, AND TRANSVER SE COLON. PT WAS LATER TRANSFER RED TO [facility] TO BE WATCHED CLOSELY. PT WAS THEN PLACED ON A LIQUID DIET UNTIL THE TIME WHERE SHE COULD TOLERATE SOLID FOOD WITH OUT PASSING A BM THAT WAS BLOODY. MEDICATI ON HAS BEEN RECONSIL ED WITH THE PT AND SHE WILL F/U WITH MGD 12/21/09 .; RECORDED 10/31/19 12 2:41PM BY NICKY WOODS ON/ADDEN DUM [place] Aziza rosario [facility] 6 11:38:21 Hemorrha ge of colon [id number] Completed 201108/23/2013 STORY: STABLE/ STILL ANEMIC; RECORDED 10/31/19 12 2:41PM BY NICKY WOODS ON/ADDEN DUM Michelle Aziza rosario [facility] [place] 6 11:38:22 Divertic ulitis of colon 296414047 Active 2011 Becky rosario [facility] [place] 7 17:00:37 Dysuria 23963300 Completed 201108/23/2013 IMPRESSI ON: 3+ LEUKOCYT ES ON UA TODAY, COMPLETE D BACTRIM 2 DAYS AGO, START CIPRO AND SEND CULTURE; RECORDED 10/31/19 12 2:41PM BY NICKY WOODS ON/ADDEN DUM Becky rosario [facility] [place] 7 17:01:13 Gastroes ophageal reflux disease 598165551 Active 2012 Becky rosario, [facility] 7 17:00:59 [facility] hyperten julisa 02278260 Active 2012 Becky rosario, [facility] 7 17:01:17 [facility]entia l hyperten julisa 12448393 Completed 201108/23/2013 RECORDED 10/31/19 12 2:41PM BY JEREL WOODSATI ON/ADDEN DUM Becky rosario, [facility] 7 17:01:17 External hemorrho ids 97735747 Active 2012 Becky rosario, [facility] 7 17:01:03 Influenz a vaccine needed [id number] 06 Completed 201208/23/2013 RECORDED 04/30/19 13 2:37PM BY TEA HANDY MA, ANNOTATI ON/ADDEN DUM Michelle Aziza [facility] 6 11:38:22 Follow-u p encounte r Completed 201208/23/2013 RECORDED 04/30/19 13 2:37PM BY TEA HANDY MA, ANNOTATI ON/ADDEN DUM [facility] 6 11:38:22 Tobacco user 101862558 Active 2012 Becky rosario [facility] 7 17:00:35 Adult health examinat ion Completed 201209/17/2016 STORY: COLONOSC OPY DUE 2016/ SS/TUBUL AR ADENOMA; RECORDED 01/28/20 13 1:58PM BY RICARDO COLE MD, OFFICE VISIT Becky rosario [facility] 7 17:01:05 Adult health examinat ion Completed 201208/23/2013 RECORDED 04/30/19 13 2:37PM BY TEA HANDY MA, ANNOTATI ON/ADDEN DUM Becky rosario [facility] 7 17:01:05 Hearing loss [id number] Active 2012 Becky rosario [facility] 7 17:00:40 History of Malignan t melanoma [id number] Active 2013 Becky rosario [facility] 7 17:00:45 Hypo-osm olality and or hyponatr emia [id number] Completed 201108/23/2013 RECORDED 10/31/19 12 2:41PM BY VIOLA MOLINA I ANNOTATI ON/ADDEN DUM [facility] 6 11:38:21 Impacted cerumen [id number] Completed 201208/23/2013 RECORDED 01/28/20 13 1:17PM BY ALEXANDRE AGUILAR MA, ANNOTATI ON/ADDEN DUM Becky rosario [facility] 7 17:00:46 Irritabl e bowel syndrome [id number] Active 2012 Becky rosario [facility] 7 17:00:31 Renewal of prescrip tion Completed 201208/23/2013 RECORDED 04/30/19 13 2:37PM BY TEA HANDY MA, ANNOTATI ON/ADDEN DUM Michelle [facility] 6 11:38:22 Malignan t melanoma of skin [id number] Active 2013 Becky rosario [facility] 7 17:01:28 Active or passive immuniza tion Completed 200908/23/2013 RECORDED 03/01/19 10 9:56AM BY PILLO Masters NP, OFFICE VISIT Michelle Antoniousha abraham [facility] 6 11:38:22 Examinat ion for suspecte d mental disorder Completed 201108/23/2013 RECORDED 10/31/19 12 2:41PM BY NICKY WOODS ON/[facility] Degutis null, [facility] 6 11:38:22 Pre-surg girish evaluati on Completed 201208/23/2013 IMPRESSI ON: PT IS MEDICALL Y ABLE TO UNDERGO SURGERY, NO ACTIVE ISSUES, IS ABLE TO LAY FLAT AND STILL, EKG NL AND WILL GET LABS; RECORDED 01/28/20 13 1:17PM BY ALEXANDRE AGUILAR MA, ANNOTATI ON/[facility] Degutis null, [facility] 6 11:38:22 Tachycar wesley [id number] Completed 201108/23/2013 RECORDED 10/31/19 12 2:42PM BY NICKY WOODS ON/[facility] Degutis null, [facility] 6 11:38:22 Retentio n of urine 329652448 Completed 201208/23/2013 RECORDED 04/30/19 13 2:37PM BY TEA HANDY MA, ANNOTATI ON/[facility] Degutis null, [facility] 6 11:38:22 Urinary tract infectio us disease 11660012 Active 2013 Becky rosario, [facility] 7 17:01:20 Vaginiti s and vulvovag initis Completed 201108/23/2013 IMPRESSI ON: VAGINAL ITCHING AFTER COMPLETI NG ANTIBIOT ICS; RECORDED 10/31/19 12 2:42PM BY NICKY WOODS ON/[facility] Degutis null, [facility] 6 11:38:22 Impacted cerumen 24690099 Completed 09/17/2016 Becky rosario, [facility] 7 17:00:46 Hyponatr emia 59705641 Completed 09/04/2017 Dilshad Hall MD [address] [address], [facility] [place], [address] , [facility] 8 06:00:03 Anemia due to chronic blood loss 544758863 Completed 201109/15/2013 RECORDED 10/31/19 12 2:42PM BY VIOLA MOLINA I ANNOTATI ON/ADDEN DUM Michelle Degutis null, [facility] 6 11:38:21 Tobacco user [id number] Completed 201209/15/2013 RECORDED 01/28/20 13 1:17PM BY ALEXANDRE AGUILAR MA, ANNOTATI ON/ADDEN DUM Becky Norton MA null, [facility] 7 17:00:35 Chest pain 37694894 Completed 201109/15/2013 RECORDED 10/31/19 12 2:41PM BY VIOLA MOLINA I ANNOTATI ON/ADDEN DUM Michelle Degutis null, [facility] 6 11:38:22 Screenin g for malignan t neoplasm of colon Completed 201209/15/2013 RECORDED 04/30/19 13 2:37PM BY TEA HANDY MA, ANNOTATI ON/ADDEN DUM Michelle Degutis null, [facility] 6 11:38:22 Divertic ular disease of colon 900028905 Completed 201109/15/2013 STORY: PT WAS SEEN IN OUR OFFICE 11/30/09 FOR RECTAL BLEEDING AND WAS REFERRED TO GI FOR AN EVALUATI ON. THAT EVENING EVERY TIME THE PT ATE SOMETHIN G SHE WOULD BE GOING TO THE BATHROOM TO HAVE A BM THAT WAS FILLED WITH BLOOD. AFTER A FEW TIMES THE PT TOOK HERSELF TO [facility] TO BE EVALUATE D. THE ONLY SX THAT THE PT FELT WAS BLOATING AND CRAMPING EVERYTIM E SHE ATE. PT HAD TO UNDERGO A COLONOSC OPY PATITO SHOWED THAT THE PT HAD BLEEDING COMING FROM THE ASCENDIN G,DESCEN DING, AND TRANSVER SE COLON. PT WAS LATER TRANSFER RED TO [facility] TO BE WATCHED CLOSELY. PT WAS THEN PLACED ON A LIQUID DIET UNTIL THE TIME WHERE SHE COULD TOLERATE SOLID FOOD WITH OUT PASSING A BM THAT WAS BLOODY. MEDICATI ON HAS BEEN RECONSIL ED WITH THE PT AND SHE WILL F/U WITH MGD 12/21/09 .; RECORDED 10/31/19 12 2:41PM BY NICKY WOODS ON/ADDEN DUM Michelle Palmaedouard rosario [facility] 6 11:38:21 Hemorrha ge of colon 81714556 Completed 201109/15/2013 STORY: STABLE/ STILL ANEMIC; RECORDED 10/31/19 12 2:41PM BY NICKY WOODS ON/ADDEN DUM Michelle Antonioutis null, [facility] 6 11:38:22 Dysuria 53599325 Completed 201109/15/2013 IMPRESSI ON: 3+ LEUKOCYT ES ON UA TODAY, COMPLETE D BACTRIM 2 DAYS AGO, START CIPRO AND SEND CULTURE; RECORDED 10/31/19 12 2:41PM BY NICKY WOODS ON/ADDEN DUM Becky Norton [place] abraham [facility] 7 17:01:13 Influenz a vaccine needed [id number] 06 Completed 201209/15/2013 RECORDED 04/30/19 13 2:37PM BY TEA HANDY MA, ANNOTATI ON/ADDEN DUM Michelle Ervin abraham, [facility] 6 11:38:22 Follow-u p encounte r Completed 201209/15/2013 RECORDED 04/30/19 13 2:37PM BY TEA HANDY MA, ANNOTATI ON/ADDEN DUM Michelle Antoniousha rosario, [facility] 6 11:38:22 Hypo-osm olality and or hyponatr emia 369014094 Completed 201109/15/2013 RECORDED 10/31/19 12 2:41PM BY NICKY WOODS ON/ADDEN DUM Michelle Antonioutis null, [facility] 6 11:38:21 Impacted cerumen 62507694 Completed 201209/15/2013 RECORDED 01/28/20 13 1:17PM BY ALEXANDRE AGUILAR MA, ANNOTATI ON/ADDEN DUM Becky Norton MA null, [facility] 7 17:00:46 Renewal of prescrip tion Completed 201209/15/2013 RECORDED 04/30/19 13 2:37PM BY TEA HANDY MA, JERELATI ON/ADDEN DUM Michelle Degutis null, [facility] 6 11:38:22 Active or passive immuniza tion Completed 200909/15/2013 RECORDED 03/01/19 10 9:56AM BY PILLO Masters NP, OFFICE VISIT Michelle Pacoutis null, [facility] 6 11:38:22 Examinat ion for suspecte d mental disorder Completed 201109/15/2013 RECORDED 10/31/19 12 2:41PM BY NICKY WOODS ON/[facility] DUM Michelle Degutis null, [facility] 6 11:38:22 Pre-surg girish evaluati on Completed 201209/15/2013 IMPRESSI ON: PT IS MEDICALL Y ABLE TO UNDERGO SURGERY, NO ACTIVE ISSUES, IS ABLE TO LAY FLAT AND STILL, EKG NL AND WILL GET LABS; RECORDED 01/28/20 13 1:17PM BY ALEXANDRE AGUILAR MA, JERELATI ON/[facility] DUM Michelle Degutis null, [facility] 6 11:38:22 Tachycar wesley [id number] Completed 201109/15/2013 RECORDED 10/31/19 12 2:42PM BY JEREL WOODSATI ON/ADDEN DUM Michelle Degutis null, [facility] 6 11:38:22 Retentio n of urine 513758800 Completed 201209/15/2013 RECORDED 04/30/19 13 2:37PM BY TEA HANDY MA, ANNOTATI ON/ADDEN DUM Michelle Degutis null, [facility] 6 11:38:22 Vaginiti s and vulvovag initis Completed 201109/15/2013 IMPRESSI ON: VAGINAL ITCHING AFTER COMPLETI NG ANTIBIOT ICS; RECORDED 10/31/19 12 2:42PM BY NICKY WOODS ON/ADDEN DUM Michelle Degutis null, [facility] 6 11:38:22 Anemia due to chronic blood loss 204927318 Completed 201109/16/2013 RECORDED 10/31/19 12 2:42PM BY JEREL WOODSATI ON/ADDEN DUM Michelle Degutis null, [facility] 6 11:38:21 Tobacco user [id number] Completed 201209/16/2013 RECORDED 01/28/20 13 1:17PM BY ALEXANDRE AGUILAR MA, ANNOTATI ON/ADDEN DUM Becky Norton MA null, [facility] 7 17:00:35 Chest pain 65256086 Completed 201109/16/2013 RECORDED 10/31/19 12 2:41PM BY JEREL WOODSATI ON/ADDEN DUM Michelle Degutis null, [facility] 6 11:38:22 Screenin g for malignan t neoplasm of colon Completed 201209/16/2013 RECORDED 04/30/19 13 2:37PM BY TEA AHNDY MA, JERELATI ON/ADDEN DUM Michelle Degutis null, [facility] 6 11:38:22 Divertic ular disease of colon 674895015 Completed 201109/16/2013 STORY: PT WAS SEEN IN OUR OFFICE 11/30/09 FOR RECTAL BLEEDING AND WAS REFERRED TO GI FOR AN EVALUATI ON. THAT EVENING EVERY TIME THE PT ATE SOMETHIN G SHE WOULD BE GOING TO THE BATHROOM TO HAVE A BM THAT WAS FILLED WITH BLOOD. AFTER A FEW TIMES THE PT TOOK HERSELF TO [facility] TO BE EVALUATE D. THE ONLY SX THAT THE PT FELT WAS BLOATING AND CRAMPING EVERYTIM E SHE ATE. PT HAD TO UNDERGO A COLONOSC OPY WITCH SHOWED THAT THE PT HAD BLEEDING COMING FROM THE [place]END[place] G,DESCEN DING, AND TRANSVER SE COLON. PT WAS LATER TRANSFER RED TO [facility] TO BE WATCHED CLOSELY. PT WAS THEN PLACED ON A LIQUID DIET UNTIL THE TIME WHERE SHE COULD TOLERATE SOLID FOOD WITH OUT PASSING A BM THAT WAS BLOODY. MEDICATI ON HAS BEEN RECONSIL ED WITH THE PT AND SHE WILL F/U WITH MGD 12/21/09 .; RECORDED 10/31/19 12 2:41PM BY NICKY WOODS ON/ADDEN DUM Michelle Antonioutedouard rosario [facility] 6 11:38:21 Hemorrha ge of colon 52444081 Completed 201109/16/2013 STORY: STABLE/ STILL ANEMIC; RECORDED 10/31/19 12 2:41PM BY NICKY WOODS ON/ADDEN DUM Michelle Antonioutedouard rosario [facility] 6 11:38:22 Dysuria 94418653 Completed 201109/16/2013 IMPRESSI ON: 3+ LEUKOCYT ES ON UA TODAY, COMPLETE D BACTRIM 2 DAYS AGO, START CIPRO AND SEND CULTURE; RECORDED 10/31/19 12 2:41PM BY NICKY WOODS ON/ADDEN TORIE rosario [facility] 7 17:01:13 Influenz a vaccine needed [id number] 06 Completed 201209/16/2013 RECORDED 04/30/19 13 2:37PM BY TEA HANDY MA, ANNOTATI ON/ADDEN DUM Michelle rosario [facility] 6 11:38:22 Follow-u p encounte r Completed 201209/16/2013 RECORDED 04/30/19 13 2:37PM BY TEA HANDY MA, ANNOTATI ON/ADDEN DUM Michelle rosario [facility] 6 11:38:22 Hypo-osm olality and or hyponatr emia 698386823 Completed 201109/16/2013 RECORDED 10/31/19 12 2:41PM BY NICKY WOODS/CHARLIE DUM Michelle Degutis null, [facility] 6 11:38:21 Impacted odilia 75279512 Completed 201209/16/2013 RECORDED 01/28/20 13 1:17PM BY ALEXANDRE AGUILAR MA, ANNOTATI ON/ADDEN DUM Becky Cierra GALLAGHER null, [facility] 7 17:00:46 Renewal of prescrip tion Completed 201209/16/2013 RECORDED 04/30/19 13 2:37PM BY TEA HANDY MA, JERELATI ON/ADDEN DUM Michelle Degutis null, [facility] 6 11:38:22 Active or passive immuniza tion Completed 200909/16/2013 RECORDED 03/01/19 10 9:56AM BY PILLO Masters NP, OFFICE VISIT [place] Pacoutis null, [facility] 6 11:38:22 Examinat ion for suspecte d mental disorder Completed 201109/16/2013 RECORDED 10/31/19 12 2:41PM BY NICKY WOODS ON/[facility] TORIE Michelle Degutis null, [facility] 6 11:38:22 Pre-surg girish evaluati on Completed 201209/16/2013 IMPRESSI ON: PT IS MEDICALL Y ABLE TO UNDERGO SURGERY, NO ACTIVE ISSUES, IS ABLE TO LAY FLAT AND STILL, EKG NL AND WILL GET LABS; RECORDED 01/28/20 13 1:17PM BY ALEXANDRE AGUILAR MA, NICKY ON/ADDEN DUM Michelle Degutis null, [facility] 6 11:38:22 Tachycar wesley [id number] Completed 201109/16/2013 RECORDED 10/31/19 12 2:42PM BY NICKY WOODS ON/ADDEN DUM Michelle Degutis null, [facility] 6 11:38:22 Retentio n of urine 893569123 Completed 201209/16/2013 RECORDED 04/30/19 13 2:37PM BY TEA HANDY MA, ANNOTATI ON/ADDEN DUM Michelle Ervin abraham [facility] 6 11:38:22 Vaginiti s and vulvovag initis Completed 201109/16/2013 IMPRESSI ON: VAGINAL ITCHING AFTER COMPLETI NG ANTIBIOT ICS; RECORDED 10/31/19 12 2:42PM BY NICKY WOODS ON/ADDEN DUM Michelle Ervin abraham [facility] 6 11:38:22 Dermatit is Completed 09/17/2016 Becky rosario [facility] 7 17:00:48 Dysuria 40124043 Completed 09/17/2016 Becky rosario [facility] 7 17:01:13 Insomnia 810438085 Active [place] Pacohermelindaedouard abraham [facility] 6 11:38:21 Advance directiv e discusse d with patient 164360304 Completed 09/17/2016 Becky rosario [facility] 7 17:01:07 Polyp of colon 51428716 Active [place] Aziza abraham [facility] 6 11:38:21 Chronic low back pain 349420495 Active 2018 Rebeca rosario [facility] 9 14:22:51 Problem Notes None recorded. Procedures Surgical History Date Name Laterality Status Provider Name and Address Organization Details Recorded Time 01/21/20 19 Mini-Cog Test completed Leila Julien MA [facility] 01/20/2019 09:52:44 12/30/19 18 Most Recent Mammogram completed Leila Julien MA [facility] 01/20/2019 09:47:42 12/19/19 18 Mini-Cog Test completed Naheed Veliz [facility] 12/18/2017 13:13:25 12/02/19 17 Fall Risk Assessment completed Becky Norton MA [facility] 12/01/2016 13:22:35 12/02/19 17 Mini-Cog Test completed Beckybridger Norton MA [facility] 12/01/2016 13:23:31 11/29/19 17 Mammogram both breasts completed Kimmy Yañez [facility] 12/09/2016 14:44:18 10/17/19 17 Date of Last Colonoscopy completed Paola Whittakera [facility] 12/09/2016 16:54:35 10/17/19 17 Colonoscopy completed Beckybridger [facility] 10/24/2016 11:43:36 03/23/19 16 Fall Risk Assessment completed Beckybridger [facility] 03/23/2015 13:55:01 03/23/19 16 Mini-Cog Test completed [facility] 03/23/2015 14:02:26 03/23/19 16 Advanced Care Planning completed Beckybridger [facility] 03/23/2015 13:41:44 08/19/19 15 Date of Last Pap Smear completed Michelle Ervin [facility] 03/28/2015 11:40:33 02/23/19 11 Most Recent Bone Density completed Beckybridger [facility] 03/23/2015 14:07:39 02/09/19 08 Appendectomy completed Tea Handy [facility] 03/02/2014 10:46:37 Imaging Results Imaging Date Name Status LastModified by Organization Details LastModified Time 05/15/2017 electrocardiogram completed Infor mation not available 05/15/2017 12:36:53 06/14/2018 XR, sacrum + coccyx, 2 or more view active [facility] [address] [place], [address], 06/15/2018 15:07:23 06/14/2018 XR, lumbar spine active [facility] [address] [place], [address], 06/15/2018 15:07:23 Procedure Notes None recorded. Medical Equipment None Reported. Allergies Allergen ID Allergen Name Allergen Category Reaction Reaction Severity Criticality Documentation Date Start Date Code Code System Note Provider Name and Address Organization Details Recorded Time 2935 latex environme nt,medica tion rash Not available Not available 08/23/20132012 85484 91 RxNorm [facility] [place] 7 17:00:18 Medications Name Sig [...] Updated DateTime 8 154.94 cm 31.4 kg/m2 23909.4 3 g 98.7 [degF] 96 % 96 % 89 /min 118 mm[Hg] 76 mm[Hg] Becky Norton MA [facility] 8 11:28:28 Date Recorded Body height Body mass index (BMI) Body weight Heart rate Oxygen saturation Oxygen saturation in Arterial blood by Pulse oximetry Body temperature Systolic blood pressure Diastolic blood pressure Provider Name and Address Organization Details Last Updated DateTime 8 154.94 cm 30.8 kg/m2 72505.5 6 g 94 /min 97 % 97 % 97.5 [degF] 136 mm[Hg] 74 mm[Hg] Viola Medina [facility] 8 10:41:30 Date Recorded Body height Body mass index (BMI) Body weight Body temperature Heart rate Oxygen saturation Oxygen saturation in Arterial blood by Pulse oximetry Systolic blood pressure Diastolic blood pressure Provider Name and Address Organization Details Last Updated DateTime 8 154.94 cm 30.5 kg/m2 36232.4 7 g 97.2 [degF] 86 /min 96 % 96 % 123 mm[Hg] 72 mm[Hg] Naheed Winnignacia [facility] 8 12:57:56 Date Recorded Body height Body mass index (BMI) Body weight Heart rate Oxygen saturation Oxygen saturation in Arterial blood by Pulse oximetry Body temperature Systolic blood pressure Diastolic blood pressure Provider Name and Address Organization Details Last Updated DateTime 9 154.94 cm 30.2 kg/m2 44206.7 8 g 92 /min 96 % 96 % 98.4 [degF] 124 mm[Hg] 78 mm[Hg] Ruby Garciau [facility] 9 12:59:19 Date Recorded Body height Body mass index (BMI) Body weight Oxygen saturation Oxygen saturation in Arterial blood by Pulse oximetry Heart rate Body temperature Systolic blood pressure Diastolic blood pressure Provider Name and Address Organization Details Last Updated DateTime 9 154.94 cm 30.7 kg/m2 37368.0 6 g 96 % 96 % 81 /min 98.1 [degF] 119 mm[Hg] 67 mm[Hg] Leila Julien MA [facility] 9 09:56:35 Social History Question Answer Notes LastModified by Organizat ion Details LastModified Time Tobacco Smoking Status [facility] 11:26:06 Do You Have An Advance [...] E-cigarettes Or Vape? Never Used Electronic Cigarettes [email or web address] Information not available 01/20/2019 What Is Your Occupation? [employer] Information not available 03/02/2014 Are There Any [...] Used Smokeless Tobacco? Never Used Smokeless Tobacco [email or web address] Information not available 01/20/2019 How Much Tobacco Do You Smoke? 1 PPW Information not available 01/20/2019 General Stress Level [...] virus, quadrivalent, PF 5 completed Becky rosario [facility] 03/23/2015 14:06:48 Influenza, high-dose, trivalent, PF 7 completed Not Available [facility] 02/26/2019 02:22:21 Novel Ebioetwyv-[id number], all formulations 0 completed Not Available [facility] 08/23/2013 13:38:52 pneumococcal polysaccharide PPV23 0 completed Not Available [facility] 08/23/2013 13:38:52 Influenza, split virus, trivalent, preservative 0 completed Not Available [facility] 08/23/2013 13:38:52 Influenza, split virus, trivalent, preservative 1 completed Not Available [facility] 08/23/2013 13:38:52 Influenza, split virus, trivalent, preservative 2 completed Not Available [facility] 08/23/2013 13:38:52 Influenza, split virus, trivalent, preservative 3 completed Not Available [facility] 08/23/2013 13:38:52 Influenza, high-dose, trivalent, PF 8 completed Not Available [facility] 02/26/2019 02:22:14 Influenza, high-dose, trivalent, PF 9 completed Not Available [facility] 02/26/2019 02:22:09 Past Encounters Encounter ID Performer Location Encounter Start Date Encounter Closed Date Diagnosis/Indication Diagnosis SNOMED-CT Code Diagnosis ICD10 Code Diagnosis Note [id number] [facility] Main Office [address] [facility] [address] [place] [address] 09/08/2013 11:14:56 09/08/2013 11:58:13 Essential hypertension 59876901 well controlled Asthma 780425855 followe d by pulm, well controlled on symbicort Anxiety state 123989073 Impacted cerumen 58909589 successful ly removed with ear lavage [id number] [facility] [address] [facility] [address] [place] [address] 03/01/2009 00:00:00 [id number] [facility] [address] [facility] [address] [place] [address] 03/29/2009 00:00:00 [id number] [facility] [address] [facility] [facility] [address] [place] [address] 09/10/2009 00:00:00 [id number] [facility] [address] [place] [address] 11/13/2009 00:00:00 [id number] [facility] [address] [place] [address] 11/30/2009 00:00:00 [id number] [facility] [facility] [address] [place] [address] 12/21/2009 00:00:00 [id number] [facility] [facility] [address] [place] [address] 02/11/2010 00:00:00 [id number] [facility] [address] [facility] [address] [place] [address] 05/17/2010 00:00:00 [id number] [employer] [facility] [address] [facility] [facility] [address] [place] [address] 08/23/2010 00:00:00 [id number] [employer] [facility] [address] [facility] [facility] [address] [place] [address] 09/04/2010 00:00:00 [id number] [employer] [facility] [address] [facility] [address] [place] [address] 11/29/2010 00:00:00 [id number] [employer] [facility] [address] [facility] [facility] [address] [place] [address] 01/10/2011 00:00:00 [id number] [employer] [facility] [address] [facility] [facility] [address] [place] [address] 05/02/2011 00:00:00 [id number] [facility] [facility] [address] [place] [address] 10/31/2011 00:00:00 [id number] [employer] [facility] [address] [facility] [facility] [address] [place] [address] 04/29/2012 00:00:00 [id number] [facility] [facility] [address] [place] [address] 07/15/2012 00:00:00 [id number] [facility] [address] [place] [address] 01/27/2013 00:00:00 [id number] [facility] Main Office [address] [address] [place] [address] 09/26/2013 13:41:44 09/26/2013 14:55:33 Dermatitis 422003827 candidal dermatitis [id number] [facility] Main Office [address] [address] [place] [address] 03/02/2014 12:39:53 03/02/2014 13:42:38 Essential hypertension 89258634 Hyponatremia 31474452 pt to see Dr Pride regularly/ pt aware that she needs to stop using clorazepat e / see psych referral Anxiety state 941720104 Dysuria 59790298 [id number] Becky Norton [place] Main Office [address] [address] [place] [address] 04/21/2014 14:46:19 04/21/2014 15:48:33 Essential hypertension 97075433 both meds helpful/ Diltiazem and lisinopril Gastroesop hageal reflux disease 184997986 pt on PPI Anxiety state 822876281 Asthma 435941860 [id number] Ricardo medellin Main Office [address] [address] [place] [address] 03/23/2015 13:27:48 03/23/2015 14:47:01 Adult health examination 601086407 Z00.00 At [facility] ed risk for falls 801886936 Z91.81 Advance di rective discussed with patient 334822279 Z71.89 pt will have her brother as health care proxy Essential hypertension 43250160 I10 both meds helpful/ Diltiazem and lisinopril Polyp of colon 10991639 K63.5 pt due for colonoscop y 2017 /tubular adenoma/We iss Asthma 913212348 J45.90 9 Anxiety state 285798111 F41.1 [id number] Ricardo medellin Main Office [address] [address] [place] [address] 10/05/2015 12:46:12 10/05/2015 13:40:50 Essential hypertension 33384825 I10 both meds helpful/ Diltiazem and lisinopril Asthma 772359091 J45.90 9 urged pt to get flu shot soon. Anxiety state 388047722 F41.1 [id number] Ricardo Carversusana medellin Main Office [address] [address] [place] [address] 06/19/2016 12:55:50 06/19/2016 14:13:50 Fatigue 42726845 R53.83 Abnormal weight loss 267 485315 R63.4 Diarrhea 60366467 R19.7 Nausea 678577835 R11.0 d/w pt to elevate HOB/ cont PPI Impaired f asting glycemia 917481639 R73.01 [id number] Ricardo Carversusana medellin Main Office [address] [address] [place] [address] 10/23/2016 14:30:06 10/23/2016 15:27:24 [id number] Ricardo Carversusana medellin Main Office [address] [address] [place] [address] 10/31/2016 13:21:48 10/31/2016 14:41:18 Lumbosacral radiculitis 75656694 M54.17 Influenza vaccine needed 0432453940 106 Z23 [id number] Ricardo Carversusana medellin Main Office [address] [address] [place] [address] 12/01/2016 13:04:53 12/01/2016 14:09:38 Adult health examination 712404370 Z00.00 Essential hypertension 45205183 I10 both meds helpful/ Diltiazem and lisinopril Anxiety state 869643313 F41.1 [id number] Ricardo Carversusana medellin Main Office [address] [address] [place] [address] 05/15/2017 11:16:16 05/15/2017 12:12:51 Anxiety state 376601564 F41.1 Essential hypertension 48837880 I10 both meds helpful/ Diltiazem and lisinopril Incomplete emptying of urinary bladder 861591478 R39.14 [id number] Maryanne fernandes Main Office [address] [address] [place] [address] 11/13/2017 10:36:20 11/13/2017 11:18:17 Anxiety state 709362459 F41.1 has been on med for 20+ years, she is taking 3.75mg daily, will try to cut the dose in half if possible. f/u in 1 month for wellness visit. Influenza vaccine needed 9425782915 106 Z23 Gastroesop hageal reflux disease 170882939 K21.9 Essential hypertension 89539012 I10 well controlled , continue meds as directed. [id number] Ramon Callahan MD Main Office [address] [address] [place] [address] 12/18/2017 12:40:39 12/18/2017 13:46:58 Adult health examination 335830613 Z00.00 UTD, she will call [employer] for appt Varicella vaccination 68 959464 Z23 Asthma 512822001 J45.90 9 Essential hypertension 28530699 I10 well controlled , continue meds as directed. Family his tory of Hypercholesterolemia [id number] Z83.49 Anxiety state [id number] F4Katerine.1 has been on med for 20+ years, she is taking 3.75mg daily, will try to cut the dose in half if possible. f/u in 1 month for wellness visit. [id number] NICOLÁS Fay Main Office [address] [address] [place] [address] 06/11/2018 12:42:51 06/11/2018 13:40:40 Low back pain [id number] M54.5 Patient with chronic low back pain, in PT, seeing chiropract or, but wondering if she should be seeing someone else. Will check XR and refer back to [facility], she has seen them for this in the past. continue sx treatment, ibuprofen as needed. Cramp in lower limb [id number] R25.2 Essential hypertension 10832698 I10 well controlled , continue meds as directed. Fatigue [id number] R53.83 [id number] NICOÁLS Fay Main Office [address] [address] [place] [address] 01/20/2019 09:41:15 01/20/2019 10:33:29 Adult health examination [id number] Z00.00 UTD, she has mammo scheduled, needs to call [employer]. Influenza vaccine needed [id number] 106 Z23 Impaired f asting glycemia [id number] R73.01 in June, sugar 125 and she believes she was fasting Hyperlipidemia [id number] E78.5 Health Concerns Section Related Observation LastModified by Organization Detai ls LastModified Time None Recorded Concern Status LastModified by Organization Details LastModified Time None Recorded Advance Directives Directive Y: Payers Encounter Date Sequence Insurance Name Policy Number Policy Menendez Covered Member ID Menendez Member ID Guarantor Name 05/15/2017 2 [place] [id number] Noris E Oparowski [id number] Noris E Oparowski 05/15/2017 1 [place] Noris E Oparowski [id number] Noris E Oparowski 11/13/2017 2 [place] [id number] Noris E Oparowski [id number] Noris E Oparowski 11/13/2017 1 [place] Noris E Oparowski [id number] Noris E Oparowski 12/18/2017 2 [place] [id number] Noris E Oparowski [id number] Noris E Oparowski 12/18/2017 1 [place] [place] Noris E Oparowski [id number] Noris E Oparowski 06/11/2018 2 [place] [id number] Noris E Oparowski [id number] Noris E Oparowski 06/11/2018 1 [place] Noris E Oparowski [id number] Noris E Oparowski 01/20/2019 2 [place] [id number] Noris E Oparowski [id number] Noris E Oparowski 01/20/2019 1 [place] Noris E Oparowski [id number] Noris E Oparowski Notes Date Note Type Note Provider Name and Address Organization Details Recorded Time 05/15/2017 text/html Anxiety/Depressi onRepo rted bypatient.Quality:incr eased anxiety; pt reports that sthe plans to return to her pschologist Dr Valdes this year Severity:able to maintain relationships Associated Symptoms:no significant weight gain; mood good; pt has correction hx of benzo use , > 20 [...] no fever;incomplete emptying of bladder Ricardo rosario [facility] 05/15/2017 12:16:47 11/13/2017 text/html Anxiety/Depressi onRepo rted bypatient.Quality:incr eased anxiety; stress, car trouble Severity:able to maintain relationships Context:major life stressors;family problems Associated Symptoms:no significant weight gain;high irritability;hostility ;anxiety;hypersensitiv ity;anxiety with muscle tension; 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 DR saw Dr. Miller at [facility]. Was discharged in 2017 due to improvement with PT. 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 Since the fall her back pain is worse. Denis Marcos, [facility] [address] [address], [place], [address], [facility] 06/11/2018 13:40:34 01/20/2019 text/html Medicare Annual Wellness [...] states she found a new PCP in [place] but cannot be seen until May. Denis Marcos [facility] [address] [place] [address], [place], [address], [facility] 01/20/2019 10:57:40 OBGyn Episode No OBEpisode recorded.
--- OUTSIDE RECORDS SUMMARY | 2024-03-10 14:17 | XMS_ITS | Encounter Summary ---
Author Organization [facility] Address [address] [place] [address] Care Team Providers Care Pipeline Inspector Name Role Phone Gennaro Guillaume MD Primary [facility] Primary Care Provider Adriana e Reason for Visit * Reason Onset Date Comments Appointment-Internal Referral 08/08/2019 en docrinology Encounter Details Date Type Department Care Team Description 08/08/2019 Telephone Medicine/Pediatrics - [address] [phone] Gennaro Guillaume MD Appointment-Internal Referral (endocrinology) Social History Tobacco Use Types Packs/Day Years [...] encounter Miscellaneous Notes * Telephone Encounter - Gennaro Guillaume MD - 08/09/2019 1:45 PM EDT Letter sent to patient 08/01/2019 * Telephone Encounter - Kelsi Beckwith - 08/08/2019 9:51 AM EDT You have referred this patient to endocrinology: Reason for referral: hyponatremia. I have been unable to scheduled an consult for this patient after 2 calls and a letter. No further action will be taken with this referral. Thanks, Kelsi Referrals Department documented in this encounter Plan of Treatment Not on file documented as of this encounter Visit Diagnoses Not on filedocumented in this encounter Care Teams Pipeline Inspector Relationship Specialty Start Date End Date Gennaro Guillaume MD PCP - General Internal Medicine 12/16/18 09/22/19 [facility], Pcp PCP - General Internal Medicine 09/23/19 documented as of this encounter
--- OUTSIDE RECORDS SUMMARY | 2024-03-10 14:17 | XMS_ITS | Encounter Summary ---
Author Organization [facility] Address [address] [place] [address] Care Team Providers Care Ict Trainer Name Role Phone Syd Dhillon Primary Care Provider Un available Gennaro Guillaume MD Primary Care Provider Susyva sean Jordan, Pcp Primary Care Provider Adriana petersen Encounter Details Date Type Department Care Team Description 02/27/2017 Release of Information Medical Records [address] [place] [id number] Abstract, Provider Social History Tobacco Use Types Packs/Day Years Used Date Smoking Tobacco: Former Cigarettes 1 15 Smokeless Tobacco: Never Sex Assigned at Date Recorded Not on file documented as of this encounter Plan of Treatment Not on file documented as of this encounter Visit Diagnoses Not on filedocumented in this encounter Care Teams Ict Trainer Relationship Specialty Start Date End Date Syd Dhillon PCP - General Internal Medicine 02/20/17 9 Gennaro Guillaume MD PCP - General Internal Medicine 12/16/18 09/22/19 [facility], Pcp PCP - General Internal Medicine 09/23/19 documented as of this encounter
--- OUTSIDE RECORDS SUMMARY | 2024-03-10 14:17 | XMS_ITS | Clinical Summary ---
Author Organization [facility] Address [address] [place] [address] Care Team Providers Care Oil Dispenser Name Role Phone Community, Pcp Primary Care Provider Unavailabl e Allergies Active Allergy Reactions Severity Noted Date Comments Latex Rash/Dermatitis 05/17/2019 Medications Medication Sig Dispensed Refills Start Date End Date Status ALBUTEROL SULFATE 108 (90 BASE) MCG/ACT Aero Soln Inhale 2 Puffs into the lungs every 4 hours as needed. 0 Active diltiazem (CARDIZEM CD) 120 MG 24 hr capsule Take 120 mg by mouth daily. 0 Active Cetirizine HCl 10 MG Cap Take by mouth. 0 Active ipratropium (ATROVENT) 0.06 % nasal spray 2 Sprays by Nasal route 4 times daily. 15 mL 11 02/20/2017 Active budesonide-formoter ol (SYMBICORT) 160-4.5 MCG/ACT inhaler Inhale 2 Puffs into the lungs every 12 hours for 30 days. This medication has inhaler steroid: Rinse mouth with water and expectorate after each dose to prevent oral/esophageal candidiasis or fungal infection. 1 Inhaler 11 02/22/2018 Active Psyllium (METAMUCIL OR) Take by mouth. 0 Active Cholecalciferol (VITAMIN D) 2000 units Tab Take by mouth daily. 0 Active tamsulosin (FLOMAX) 0.4 MG 24 hr capsule Take 0.4 mg by mouth daily. Take 30 mins after same meal every day. 0 Active clorazepate (TRANXENE) 3.75 MG tablet 1/2 tab PO daily 14 Tab 0 06/10/2019 Active lisinopril (PRINIVIL,ZESTRIL) 10 MG tablet Take 1 Tab by mouth daily. 90 Tab 0 08/03/2019 Active omeprazole (PRILOSEC) 20 MG capsuleIndications: Gastroesophageal reflux disease, esophagitis presence not specified Take 1 Cap by mouth daily. 90 Cap 1 09/13/2019 Active Active Problems Problem Noted Date Anxiety 07/02/2019 IBS (irritable bowel syndrome) 0 Diverticulosis 06/07/2019 Overview: 2011 Diverticulitis Tubular adenoma 06/07/2019 Overview: 10/2016 CN diverticulosis, angiodysplasias, internal hemorrhoids,further colonoscopies on as needed basis Osteoarthritis 06/07/2019 Overview: Lumbar Spine, SI joints Chronic low back pain 06/07/2019 Vitamin D deficiency 06/07/2019 Hearing loss 06/07/2019 Hyponatremia 05/22/2019 Overview: Na 128 on 05/17/2019, no previous labs to compare to Hypertension 05/17/2019 History of melanoma 05/17/2019 Overview: 2008, Right arm, s/p removal Asthma-COPD overlap syndrome 02/20/2017 Allergic rhinitis 02/20/2017 GERD (gastroesophageal reflux disease) 0 02/20/2017 Immunizations Name Administration Dates Next Due Flu Vaccine 3 Yrs> Im 12/10/2012, 012,11/29/2010,11/13 Influenza (> 6 Months) 11/09/2014 Influenza H1N1 Pandemic Flu Vaccine 03/01/2009 Influenza vaccine high dose age 65 and over 11/13/2017,10/31/2016 Pneumoccoccal(Adult) Polysac charide PPSV23 03/01/2009 Pneumococcal Conjugate PCV-13 04/21/2014 Family History Medical History Relation Name Comments thyroid problems Brother Stroke Father prostate cancer , HTN, ETOH abuse, depression, chronic deafness Pneumonia Mother breast cancer, skin cancer No Known Problems Sister No Known Problems Son Relation Name Status Comments Brother Alive Father Mother Sister Alive Son Alive Social History Tobacco Use Types Packs/Day Years Used Date Smoking Tobacco: Former Cigarettes 1 15 Q uit: 05/17/1983 Smokeless Tobacco: Never Comments:quit in her 40's Alcohol Use Standard Drinks/Week Comments Yes 0 (1 standard drink = 0.6 oz pure alcohol) wine daily, 2 drinks daily with lots of ice Sex Assigned at Date Recorded Not on file Last Filed Vital Signs Vital Sign Reading Time Taken Comments Blood Pressure 122/64 05/17/2019 2:13 PM EDT Pulse 80 05/17/2019 2:13 PM EDT Temperature 36.4 ??C (97.5 ??F) 05/17/2019 2:13 PM ED T Respiratory Rate 16 05/17/2019 2:13 PM EDT Oxygen Saturation 97% 02/22/2018 2:17 PM EST Inhaled Oxygen Concentration - - Weight 73.5 kg (162 lb) 05/17/2019 2:13 PM EDT Height 154.9 cm (5' 1 ) 05/17/2019 2:13 PM EDT Body Mass Index 30.61 05/17/2019 2:13 PM EDT Plan of Treatment Health Maintenance Due Date Last Done Comments Covid-19 Vaccine (#1) 02/11/1941 DEPRESSION SCREEN 1953 DTAP/TDAP/TD (1 - Tdap) 1960 CHOLESTEROL SCREENING 1961 SHINGLES VACCINE (1 of 2) 08/12/1991 BONE DENSITY SCREENING 2006 MAMMOGRAM 11/28/2017 11/28/2016, 11/10 (External Completion) FALL RISK ASSESSMENT 05/16/2020 05/17/2019 COLON CANCER SCREENING 10/16/2021 7, 10/16/2016 (External Completion) INFLUENZA (#1) 2023 11/13/2017, 10/11, 11/09/2014, Additional history exists BMI CHECK/ADVISE 02/10/2024 05/17/2019, , 07/02/2017, Additional history exists PNEUMOCOCCAL VACCINE Completed 04/21/2014, 03/01/19 10 Care Teams Oil Dispenser Relationship Specialty Start Date End Date Community, Pcp PCP - General Internal Medicine 09/23/19
--- OUTSIDE RECORDS SUMMARY | 2024-03-10 14:17 | XMS_ITS | Encounter Summary ---
Author Organization [facility] Address [address] [place] [address] Care Team Providers Care Cloth Piecer Name Role Phone Gennaro Guillaume MD Primary Care Provider Yadira Jordan, Pcp Primary Care Provider Adriana petersen Encounter Details Date Type Department Care Team Description 05/23/2019 Senior Web Engineer Report Medical Records [address] [place] [address] Aquiles Weems MD Social History Tobacco Use Types Packs/Day Years [...] on filedocumented in this encounter Care Teams Cloth Piecer Relationship Specialty Start Date End Date Gennaro Guillaume MD PCP - General Internal Medicine 12/16/18 09/22/19 Juan Francisco Jordan PCP - General Internal Medicine 09/23/19 documented as of this encounter
--- OUTSIDE RECORDS SUMMARY | 2024-03-10 14:17 | XMS_ITS | Encounter Summary ---
Author Organization [facility] Address [address] [place] [address] Care Team Providers Care Certified Technician Name Role Phone Syd Dhillon Primary Care Provider Un available Gennaro Guillaume MD Primary Care Provider Yadira Jordan, Pcp Primary Care Provider Unavailabl e Reason for Visit * Reason Comments E-prescribe Rx Request Encounter Details Date Type Department Care Team Description 05/05/2017 Refill Pulmonology [address] [place] [phone] Aquiles Weems MD E-prescribe Rx Request Social History Tobacco Use Types Packs/Day Years Used Date Smoking Tobacco: Former Cigarettes 1 15 Smokeless Tobacco: Never Sex Assigned at Date Recorded Not on file documented as of this encounter Plan of Treatment Not on file documented as of this encounter Visit Diagnoses Not on filedocumented in this encounter Care Teams Certified Technician Relationship Specialty Start Date End Date Syd Dhillon PCP - General Internal Medicine 02/20/17 9 Gennaro Guillaume MD PCP - General Internal Medicine 12/16/18 09/22/19 Nikki, Pcp PCP - General Internal Medicine 09/23/19 documented as of this encounter
== END 2024-03-10 11:12 | disposition home or self-care (01) ==
LOC: HO.ACS 10:37
PROVIDERS: PCP Family Medicine; Visit Provider Internal Medicine
DX: Z79.01 Long term (current) use of anticoagulants (principal)

== ENCOUNTER 2024-03-16 11:30 | Outpatient (AMB) | payer MEDICARE, MEDICAID, SELFPAY ==
--- NOTE | 2024-03-16 11:36 | HO.NEPHOV ---
Intake Visit Reasons: INP:Hypo-osmolality and hyponatremia/HTN/ Conf Allergies Seasonal Allergies Allergy (Mild, Verified 03/10/24 10:40) runny nose latex Allergy (Verified 03/10/24 10:40) rash PFSH Medical History Swelling of both lower extremities Pulmonary emboli (~01/2022) Skin cancer History of COVID-19 Essential hypertension Chronic allergic rhinitis Hyponatremia Asthma-COPD overlap syndrome Surgical History History of esophagogastroduodenoscopy (EGD) History of colonoscopy Family History Mother Breast cancer Father Prostate CA Stroke Social History Household Members: None Housing: House Housing Other:: mobile home- friend to be moving in Alcohol intake: current Alcohol intake frequency: 0-2 drinks per day (about 2 daily with ice ) Patient Tobacco Use Status: Former Tobacco user (20 years quit around age 51 ) Tobacco use type: Cigarette Cigarette Packs Per Day: 1.0 Years Smoked: 10 years e-Cigarette/Vaping Use: Never Used Second Hand Smoke Exposure: No service: No Current occupational status: retired 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
[2024-03-16 11:56] VITALS: BP 92/54; PULSE 108; O2SAT 95; BMI 30.2
--- NOTE | 2024-03-16 11:56 | HO.NEPHOV_ITS ---
Vital Signs 03/16/24 11:56 Height 5 ft 1 in Weight 160 lb BMI 30.2 BP 92/54 L Blood Pressure Location Lt brachial Position Sitting Pulse 108 H Pulse Source Pulse Oximeter Pulse Oximetry (%) 95 Oxygen Delivery Method Room Air Intake Visit Reasons: INP:Hypo-osmolality and hyponatremia/HTN/ Conf Bulk Mail Technician Required: No Accompanied by: Self / Same As Patient Allergies Seasonal Allergies Allergy (Mild, Verified 03/16/24 11:57) runny nose latex Allergy (Verified 03/16/24 11:57) rash Medication List - Last Reconciled 03/16/24 by Rupesh Isaac MD albuterol sulfate 90 mcg/actuation 2 puffs inhalation Q8H PRN cetirizine (Zyrtec) 10 mg PO DAILY PRN cholecalciferol (vitamin D3) 50 mcg PO DAILY citalopram 20 mg PO DAILY 90 days clonazepam 0.5 mg PO BID PRN diltiazem HCl CD 120 mg PO DAILY 90 days fluticasone propion-salmeterol 500-50 mcg/dose (Wixela Inhub) 1 inh inhalation BID fluticasone propionate 50 mcg/actuation (Flonase Allergy Relief) 1 spray intranasal Q12H 30 days gabapentin 300 mg PO BID lisinopril 10 mg PO DAILY omeprazole 20 mg PO DAILY tamsulosin 0.4 mg PO BEDTIME 90 days warfarin 2 mg See Protocol PO DAILY 30 days HPI Comments Details: 83-year-old woman with history of hypertension referred for hyponatremia. She has had mild asymptomatic hyponatremia for the last few years. She is on citalopram 20 mg lisinopril 10 mg and gabapentin twice a day. She admits to drinking plenty of water. Other labs were reviewed Few years ago serum sodium was at 01:25 millimoles. Current serum sodium was 128. Usually she is in the low 130s to high 120s. [facility] Medical History Swelling of both lower extremities Pulmonary emboli (~01/2022) Skin cancer History of COVID-19 Essential hypertension Chronic allergic rhinitis Hyponatremia Asthma-COPD overlap syndrome Surgical History History of esophagogastroduodenoscopy (EGD) History of colonoscopy Family History Mother Breast cancer Father Prostate CA Stroke Social History Household Members: None Housing: House Housing Other:: mobile home- friend to be moving in Alcohol intake: current Alcohol intake frequency: 0-2 drinks per day (about 2 daily with ice ) Patient Tobacco Use Status: Former Tobacco user (20 years quit around age 51 ) Tobacco use type: Cigarette Cigarette Packs Per Day: 1.0 Years Smoked: 10 years e-Cigarette/Vaping Use: Never Used Second Hand Smoke Exposure: No service: No Current occupational status: retired 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 - 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 work in a [employer] plant - thinks her COPD r/t Current occupational exposures/hazards: No Cognitive needs: No Hearing needs: No Vision needs: No Review of Systems Const Denies fever(s) and Denies weight loss Card Denies chest pain Resp Denies cough and Denies hemoptysis GI Denies abdominal pain, Denies diarrhea and Denies nausea Musc Denies back pain Neuro Denies focal weakness Physical Exam Vital Signs: Last Vital Signs Pulse 108 H 03/16/24 11:56 BP 92/54 L 03/16/24 11:56 Pulse Ox 95 03/16/24 11:56 Oxygen Delivery Method Room Air 03/16/24 11:56 BMI result Body Mass Index 30.2 Comfortable Neck supple no JVD. Lungs entry equal no rales. Heart S1-S2 heard no gallop or rub. Abdomen soft nontender. Neuro alert awake oriented. No asterixis. Extremities no edema. Results Reviewed Nephrology Results: No Data to Display Assessment & Plan Assessment & Plan (1) Hyponatremia: Code(s): E87.1 - Hypo-osmolality and hyponatremia Category: Medical Plan Clinically she appears euvolemic. She probably has euvolemic hyponatremia. The decreased free water clearance may be due to the use of SSRIs. Other contributing factors would include use of both lisinopril and gabapentin. She has a history of COPD. This could be another contributing factor for non osmotic ADH release. Recommendation Limit oral free water intake to 1 L per 24 hours. Workup ordered including serum and urine osmolality. Urine sodium and creatinine. TSH. Recent chest x-ray was reviewed which showed evidence of COPD. She might require a CT scan of the chest. Goal is to maintain serum sodium more than 130 millimoles. You serum sodium stays persistently low we can switch lisinopril to losartan. Other option is to add urea powder if serum sodium was less than 128 She returned to office once the workup is completed. Orders: Orders UA and rflx microscopic 1 Day E87.1 - Hypo-osmolality and hyponatremia Osmolality Urine 1 Day E87.1 - Hypo-osmolality and hyponatremia Creatinine Urine 1 Day E87.1 - Hypo-osmolality and hyponatremia Sodium Urine Random 1 Day E87.1 - Hypo-osmolality and hyponatremia Coding Level of Care Code New Pt Level 4 (77610) Diagnoses Hyponatremia E87.1
--- OUTSIDE RECORDS SUMMARY | 2024-03-16 13:21 | XMS_ITS | Encounter Summary ---
Author Organization [facility] Address [address] [place] [address] Care Team Providers Care Communications Analyst Name Role Phone Syd Dhillon Primary Care Provider Un available Gennaro Guillaume MD Primary Care Provider Yadira Jordan, Pcp Primary Care Provider Unavailabl e Reason for Visit * Reason Comments E-prescribe Rx Request Encounter Details Date Type Department Care Team Description 05/05/2017 Refill Pulmonology [address] [place] [phone] Aquiles Weems MD E-prescribe Rx Request Social History Tobacco Use Types Packs/Day Years Used Date Smoking Tobacco: Former Cigarettes 1 15 Smokeless Tobacco: Never Sex Assigned at Date Recorded Not on file documented as of this encounter Plan of Treatment Not on file documented as of this encounter Visit Diagnoses Not on filedocumented in this encounter Care Teams Communications Analyst Relationship Specialty Start Date End Date Syd Dhillon PCP - General Internal Medicine 02/20/17 9 Gennaro Guillaume MD PCP - General Internal Medicine 12/16/18 09/22/19 Nikki, Pcp PCP - General Internal Medicine 09/23/19 documented as of this encounter
--- OUTSIDE RECORDS SUMMARY | 2024-03-16 13:22 | XMS_ITS | Encounter Summary ---
Author Organization [facility] Address [facility] [place] [address] Care Team Providers Care Communication Coordinator Name Role Phone Gennaro Guillaume MD Primary Care Provider Yadira Jordan, Pcp Primary Care Provider Adriana petersen Encounter Details Date Type Department Care Team Description 07/11/2019 Telephone Medicine/Pediatrics - [address] [phone] Gennaro Guillaume MD Social History Tobacco Use Types Packs/Day [...] on filedocumented in this encounter Care Teams Communication Coordinator Relationship Specialty Start Date End Date Gennaro Guillaume MD PCP - General Internal Medicine 12/16/18 09/22/19 Nikki, Pcp PCP - General Internal Medicine 09/23/19 documented as of this encounter
--- OUTSIDE RECORDS SUMMARY | 2024-03-16 13:22 | XMS_ITS | Encounter Summary ---
Author Organization [facility] Address [address] [place] [address] Care Team Providers Care Process Control Technician Name Role Phone Gennaro Guillaume MD Primary Care Provider Yadira [facility], Pcp Primary [facility] Reason for Visit * Reason Onset Date Comments refill request 06/03/2019 Encounter Details Date Type Department Care Team Description 06/03/2019 Refill Medicine/Pediatrics - [address] [phone] Gennaro Guillaume MD refill request Social History [...] / Plan[place] / Product Type: MEDICARE [id number] documented in this encounter Plan of Treatment Not on file documented as of this encounter Visit Diagnoses Not on filedocumented in this encounter Care Teams Process Control Technician Relationship Specialty Start Date End Date Gennaro Guillaume MD PCP - General Internal Medicine 12/16/18 09/22/19 [facility] - [facility] Internal Medicine 09/23/19 documented as of this encounter
--- OUTSIDE RECORDS SUMMARY | 2024-03-16 13:22 | XMS_ITS | Data Portability ---
Author Organization [facility], Main Office Address [address] [facility] 2 07 [id number] Care Team Providers Care Custom Bike Builder Name Role Phone ABDIEL ORTEGA Control Systems Specialist GRACIELA MILLER Urologist ABDIEL LOZANO Linoleum Mechanic [phone] URBAN PRIDE Oracle Hyperion Consultant HUMBERTO SINGH Factory Expert RICARDO HUGHES Chiropractor [facility] Physical Therapist DENIS MARCOS Primary Care Provider Assessment No assessment recorded. Plan of Treatment Reminders Order Date Submit Date Provider Last Modified By Organization Details Last Modified Time Details Appointments None recorded. Lab lipid panel, serum 2017 018 TIMOTHY [facility], [address], [address], 9 15:24:52 CMP, serum or plasma 2017 018 toni [facility], [address], [address], 9 11:56:02 magnesium , serum or plasma 2018 019 TIMOTHY [facility], [address], [address], 9 15:24:53 CK (creatine kinase), total, serum 2018 019 TIMOTHY [facility], [address], [address], 9 15:24:54 CBC w/ auto diff 2018 019 TIMOTHY [facility], [address] [place], [address], 9 13:55:52 CMP, serum or plasma 2018 019 TIMOTHY [facility], [address] [place], [address], 9 15:24:51 TSH, serum or plasma 2018 019 TIMOTHY [facility], [address] [place], [address], 9 15:37:23 HbA1c (hemoglob in A1c), blood 2018 019 [facility], [address] [place], [address], 0 09:38:13 BMP, serum or plasma 2018 019 [facility], [address] [place], [address], 0 09:38:13 lipid panel, serum 2018 019 [facility], [address] [place], [address], 0 09:38:13 Referral urologist referral - pt has not seen urology in 2 years or more and wants to have consultat ion w/ urologist rather than PROMOTIONS EXECUTIVE PRODUCER 2017 018 scott Crane MD, [address], [address], [place], [address], 8 13:35:13 physical therapist referral - At risk for falling 2017 018 [facility], [address], [place], [address], 8 16:26:43 spine center referral - patient in 2017, MRI showed crowding L2 nerve root on the left, having worsenign sx of sciatic pain, low back pain, leg pains bilateral ly. 2018 019 isaías [facility], [address] [place] [address], [id number], 9 17:23:40 Procedures None recorded. Surgeries None recorded. Imaging XR, lumbar spine - chronic low back pain, worsening s/p fall in february [id number] 019 [facility], [address] [place] [address], [address], 9 10:29:46 XR, sacrum + coccyx - s/p fall in february, hx low back arthritis . pain worsening 2018 019 [facility], [address] [place] [address], [address], 9 10:29:44 Medication Orders tamsulosi n 0.4 mg capsule 2017 018 [id number], [address] [place], [address], 8 13:01:14 clorazepa te dipotassi um 3.75 mg tablet 2017 018 INTERFACE [id number], [address] [place], [address], 8 12:05:21 clorazepa te dipotassi um 3.75 mg tablet 2017 018 INTERFACE [id number], [address] [place], [address], 8 11:18:58 Patient TargetsNo targets recorded. Patient Instructions Encounter Date Encounter Id Patient Instructions Last Modified By Organization Details Last Modified Time 11/13/2017 [id number] anxiety disorder: care instructions [email or web address] Not available 11/13/2017 11:18:44 call or return for worsening or concerns. [email or web address] Not available 11/13/2017 11:13:19 I have reviewed the note and agree with the assessment and plan of care. [email or web address] Not available 11/13/2017 12:41:01 12/18/2017 [id number] preventing falls: care instructions [email or web address] Not available [...] medication. [email or web address] Not available 12/18/2017 13:20:44 06/11/2018 [id number] low back pain: exercises [email or web address] Not available 06/11/2018 13:24:20 call or return for worsening or concerns. [email or web address] Not available 06/11/2018 13:22:08 01/20/2019 [id number] preventing falls: care instructions [email or web address] Not available 01/20/2019 10:20:59 call or return for woraening or concerns. [email or web address] Not available 01/20/2019 10:20:56 Reviewed the risks and benefits of mcfp opiate use, OUD discussed with the patient. Reviewed the risks and benefits of other non-opioid pain therapies. Reviewed caution with driving, fall risk, treatment for constipation. Patient verbalizes understanding of risk and benefits, and of OUD. [email or web address] Not available 01/20/2019 09:46:37 Reason for Referral Urologist Referral for Incom plete emptying of urinary bladder pt has not seen urology in 2 years or more and wants to have consultation w/ urologist rather than PROMOTIONS EXECUTIVE PRODUCER Referring Physician: Ricardo Dhillon, Internal Medicine, Encounter [...] Available [facility] [address] [place], [address], 09/11/2017 22:27:42 09/12/19 18 09/11/2017 CBC w/ auto diff RBC 4.68 M/mm3 (4.20- 5.40) Not Available [facility] [address] [place], [address], 09/11/2017 22:27:42 09/12/19 18 09/11/2017 CBC w/ auto diff HGB 14.7 gm/dL (11.7- 15.5) Not Available [facility] [address] [place], [address], 09/11/2017 22:27:42 09/12/19 18 09/11/2017 CBC w/ auto diff HCT 43.2 % (35.7- 45.8) Not Available [facility] [address] [place], [address], 09/11/2017 22:27:42 09/12/19 18 09/11/2017 CBC w/ auto diff MCV 92.3 fL (80.0- 100.0) Not Available [facility] [address] [place], [address], 09/11/2017 22:27:42 09/12/19 18 09/11/2017 CBC w/ auto diff MCH 31.4 pg (27.0- 34.0) Not Available [facility] [address] [place], [address], 09/11/2017 22:27:42 09/12/19 18 09/11/2017 CBC w/ auto diff MCHC 34.0 g/dL (33.0- 37.0) Not Available [facility] [address] [place], [address], 09/11/2017 22:27:42 09/12/19 18 09/11/2017 CBC w/ auto diff plt 230 K/mm3 (150-4 60) Not Available [facility] [address] [place], [address], 09/11/2017 22:27:42 09/12/19 18 09/11/2017 CBC w/ auto diff RDW-SD 45.7 fL (<47.0 ) Not Available [facility] [address] [place], [address], 09/11/2017 22:27:42 09/12/19 18 09/11/2017 CBC w/ auto diff MPV 9.5 fL (9.4-1 2.4) Not Available [facility] [address] [place], [address], 09/11/2017 22:27:42 09/12/19 18 09/11/2017 CBC w/ auto diff automated NRBC 0.0 #/100 _WBC' s Not Available [facility] [address] [place], [address], 09/11/2017 22:27:42 09/12/19 18 09/11/2017 CBC w/ auto diff abs. NRBC 0.0 K/mm3 Not Available [facility] [address] [place], [address], 09/11/2017 22:27:42 09/12/19 18 09/11/2017 CBC w/ auto diff neut # 4.7 K/mm3 (1.3-7 .0) Not Available [facility] [address] [place], [address], 09/11/2017 22:27:42 09/12/19 18 09/11/2017 CBC w/ auto diff lymph # 1.4 K/mm3 (0.8-3 .1) Not Available [facility] [address] [place], [address], 09/11/2017 22:27:42 09/12/19 18 09/11/2017 CBC w/ auto diff mono# 0.9 K/mm3 (0.4-0 .9) Not Available [facility] [address] [place], [address], 09/11/2017 22:27:42 09/12/19 18 09/11/2017 CBC w/ auto diff eo # 0.2 K/mm3 (0.0-0 .4) Not Available [facility] [address] [place], [address], 09/11/2017 22:27:42 09/12/19 18 09/11/2017 CBC w/ auto diff baso # 0.1 K/mm3 (0.0-0 .1) Not Available [facility] [address] [place], [address], 09/11/2017 22:27:42 09/12/19 18 09/11/2017 CBC w/ auto diff abs. imm gran 0.0 K/mm3 Not Available [facility] [address] [place], [address], 09/11/2017 22:27:42 09/12/19 18 09/11/2017 CBC w/ auto diff neut 64.7 % (44-76 ) Not Available [facility] [address] [place], [address], 09/11/2017 22:27:42 09/12/19 18 09/11/2017 CBC w/ auto diff lymph 18.7 % (15-43 ) Not Available [facility] [address] [place], [address], 09/11/2017 22:27:42 09/12/19 18 09/11/2017 CBC w/ auto diff monocyte 12.6 % (4.5-1 0.5) high Not Available [facility] [address] [place], [address], 09/11/2017 22:27:42 09/12/19 18 09/11/2017 CBC w/ auto diff eo 2.5 % (0-6) Not Available [facility] [address], [address], 09/11/2017 22:27:42 09/12/19 18 09/11/2017 CBC w/ auto diff baso 1.2 % (0-2) Not Available [facility] [address] [place], [address], 09/11/2017 22:27:42 09/12/19 18 09/11/2017 CBC w/ auto diff imm gran 0.3 % (0.0-0 .6) Not Available [facility] [address] [place], [address], 09/11/2017 22:27:42 09/12/19 18 09/11/2017 CMP, serum or plasm a glucose 104 mg/dL (70-99 ) high Not Available [facility] [address] [place], [address], 09/11/2017 23:29:56 09/12/19 18 09/11/2017 CMP, serum or plasm a BUN 11 mg/dL (8-23) Not Available [facility] [address] [place], [address], 09/11/2017 23:29:56 09/12/19 18 09/11/2017 CMP, serum or plasm a creatinine 0.8 mg/dL (0.5-1 .0) Not Available [facility] [address] [place], [address], 09/11/2017 23:29:56 09/12/19 18 09/11/2017 CMP, serum or plasm a sodium 134 mmol/ L (133-1 45) Not Available [facility] [address] [place], [address], 09/11/2017 23:29:56 09/12/19 18 09/11/2017 CMP, serum or plasm a potassium 4.6 mmol/ L (3.6-5 .2) Not Available [facility] [address] [place], [address], 09/11/2017 23:29:56 09/12/19 18 09/11/2017 CMP, serum or plasm a chloride 96 mmol/ L (98-10 7) low Not Available [facility] [address], [address], 09/11/2017 23:29:56 09/12/19 18 09/11/2017 CMP, serum or plasm a bicarbonate 23 mmol/ L (22-29 ) Not Available [facility] [address], [address], 09/11/2017 23:29:56 09/12/19 18 09/11/2017 CMP, serum or plasm a anion gap 15 (4-17) Not Available [facility] [address], [address], 09/11/2017 23:29:56 09/12/19 18 09/11/2017 CMP, serum or plasm a albumin 4.1 gm/dL (3.4-4 .8) Not Available [facility] [address], [address], 09/11/2017 23:29:56 09/12/19 18 09/11/2017 CMP, serum or plasm a calcium 9.3 mg/dL (8.6-1 0.5) Not Available [facility] [address], [address], 09/11/2017 23:29:56 09/12/1909/11/2017 CMP, serum or plasm a bilirubin,to della 0.4 mg/dL (0-1.2 ) Not Available [facility] [address], [address], 09/11/2017 23:29:56 09/12/19 18 09/11/2017 CMP, serum or plasm a total protein 6.6 gm/dL (6.2-8 .2) Not Available [facility] [address] [place], [address], 09/11/2017 23:29:56 09/12/19 18 09/11/2017 CMP, serum or plasm a Ag ratio 1.6 Not Available [facility] [address] [place], [address], 09/11/2017 23:29:56 09/12/19 18 09/11/2017 CMP, serum or plasm a AST 24 U/L (0-32) Not Available [facility] [address] [place], [address], 09/11/2017 23:29:56 09/12/19 18 09/11/2017 CMP, serum or plasm a alk phos 104 U/L (35-10 4) Not Available [facility] [address] [place], [address], 09/11/2017 23:29:56 09/12/19 18 09/11/2017 CMP, serum or plasm a ALT 22 U/L (0-33) Not Available [facility] [address] [place], [address], 09/11/2017 23:29:56 09/12/19 18 09/11/2017 CMP, serum [...] Available [facility] [address] [place], [address], 09/11/2017 23:29:56 09/12/19 18 09/11/2017 CMP, serum [facility] [address] [place], [address], 09/11/2017 23:29:56 09/12/19 18 09/11/2017 magne sium, serum or plasm a magnesium 1.6 mEq/L (1.3-1 .9) Not Available [facility] [address] [place], [address], 09/11/2017 23:29:57 06/15/1906/14/2018 CBC w/ auto diff WBC 7.5 K/mm3 (4.0-1 1.0) Not Available [facility] [address] [place], [address], 06/14/2018 13:55:52 06/15/1906/14/2018 CBC w/ auto diff RBC 4.66 M/mm3 (4.20- 5.40) Not Available [facility] [address] [place], [address], 06/14/2018 13:55:52 06/15/1906/14/2018 CBC w/ auto diff HGB 15.3 gm/dL (11.7- 15.5) Not Available [facility] [address] [place], [address], 06/14/2018 13:55:52 06/15/1906/14/2018 CBC w/ auto diff HCT 43.9 % (35.7- 45.8) Not Available [facility] [address] [place], [address], 06/14/2018 13:55:52 06/15/1906/14/2018 CBC w/ auto diff MCV 94.2 fL (80.0- 100.0) Not Available [facility] [address] [place], [address], 06/14/2018 13:55:52 06/15/1906/14/2018 CBC w/ auto diff MCH 32.8 pg (27.0- 34.0) Not Available [facility] [address] [place], [address], 06/14/2018 13:55:52 06/15/1906/14/2018 CBC w/ auto diff MCHC 34.9 g/dL (33.0- 37.0) Not Available [facility] [address] [place], [address], 06/14/2018 13:55:52 06/15/1906/14/2018 CBC w/ auto diff plt 256 K/mm3 (150-4 60) Not Available [facility] [address] [place], [address], 06/14/2018 13:55:52 06/15/1906/14/2018 CBC w/ auto diff RDW-SD 43.2 fL (<47.0 ) Not Available [facility] [address] [place], [address], 06/14/2018 13:55:52 06/15/1906/14/2018 CBC w/ auto diff MPV 9.9 fL (9.4-1 2.4) Not Available [facility] [address] [place], [address], 06/14/2018 13:55:52 06/15/1906/14/2018 CBC w/ auto diff automated NRBC 0.0 #/100 _WBC' s Not Available [facility] [address] [place], [address], 06/14/2018 13:55:52 06/15/1906/14/2018 CBC w/ auto diff abs. NRBC 0.0 K/mm3 Not Available [facility] [address] [place], [address], 06/14/2018 13:55:52 06/15/1906/14/2018 CMP, serum or plasm a glucose 125 mg/dL (70-99 ) high Not Available [facility] [address] [place], [address], 06/14/2018 15:24:51 06/15/1906/14/2018 CMP, serum or plasm a BUN 8 mg/dL (8-23) Not Available [facility] [address] [place], [address], 06/14/2018 15:24:51 06/15/1906/14/2018 CMP, serum or plasm a creatinine 0.8 mg/dL (0.5-1 .0) Not Available [facility] [address] [place], [address], 06/14/2018 15:24:51 06/15/1906/14/2018 CMP, serum or plasm a sodium 134 mmol/ L (133-1 45) Not Available [facility] [address] [place], [address], 06/14/2018 15:24:51 06/15/1906/14/2018 CMP, serum or plasm a potassium 4.6 mmol/ L (3.6-5 .2) Not Available [facility] [address] [place], [address], 06/14/2018 15:24:51 06/15/1906/14/2018 CMP, serum or plasm a chloride 98 mmol/ L (98-10 7) Not Available [facility] [address] [place], [address], 06/14/2018 15:24:51 06/15/1906/14/2018 CMP, serum or plasm a bicarbonate 23 mmol/ L (22-29 ) Not Available [facility] [address] [place], [address], 06/14/2018 15:24:51 06/15/19 19 06/14/2018 CMP, serum or plasm a anion gap 13 (4-17) Not Available [facility] [address] [place], [address], 06/14/2018 15:24:51 06/15/19 19 06/14/2018 CMP, serum or plasm a albumin 4.5 gm/dL (3.4-4 .8) Not Available [facility] [address] [place], [address], 06/14/2018 15:24:51 06/15/19 19 06/14/2018 CMP, serum or plasm a calcium 9.5 mg/dL (8.6-1 0.5) Not Available [facility] [address] [place], [address], 06/14/2018 15:24:51 06/15/19 19 06/14/2018 CMP, serum or plasm a bilirubin,to della 0.5 mg/dL (0-1.2 ) Not Available [facility] [address] [place], [address], 06/14/2018 15:24:51 06/15/19 19 06/14/2018 CMP, serum or plasm a total protein 7.0 gm/dL (6.2-8 .2) Not Available [facility] [address] [place], [address], 06/14/2018 15:24:51 06/15/19 19 06/14/2018 CMP, serum or plasm a Ag ratio 1.8 Not Available [facility] [address] [place], [address], 06/14/2018 15:24:51 06/15/19 19 06/14/2018 CMP, serum or plasm a AST 28 U/L (0-32) Not Available [facility] [address] [place], [address], 06/14/2018 15:24:51 06/15/19 19 06/14/2018 CMP, serum or plasm a alk phos 105 U/L (35-10 4) high Not Available [facility] [address] [place], [address], 06/14/2018 15:24:51 06/15/19 19 06/14/2018 CMP, serum or plasm a ALT 27 U/L (0-33) Not Available [facility] [address] [place], [address], 06/14/2018 15:24:51 06/15/19 19 06/14/2018 CMP, serum [...] Available [facility] [address] [place], [address], 06/14/2018 15:24:51 06/15/19 19 06/14/2018 CMP, serum [...] Available [facility] [address] [place], [address], 06/14/2018 15:24:51 06/15/1906/14/2018 lipid panel , serum cholesterol, total 192 mg/dL (<200) Not Available [facility] [address] [place], [address], 06/14/2018 15:24:52 06/15/1906/14/2018 lipid panel , serum triglyceride 190 mg/dL (<150) high Not Available [facility] [address] [place], [address], 06/14/2018 15:24:52 06/15/1906/14/2018 lipid panel , serum HDL chol 59 mg/dL (>39) Not Available [facility] [address] [place], [address], 06/14/2018 15:24:52 06/15/1906/14/2018 lipid panel , serum LDL cholesterol, calculated 95 mg/dL (0-130 ) Not Available [facility] [address] [place], [address], 06/14/2018 15:24:52 06/15/1906/14/2018 lipid panel , serum non HDL cholesterol (calc) 133 mg/dL (<160) Not Available [facility] [address] [place], [address], 06/14/2018 15:24:52 06/15/1906/14/2018 magne sium, serum or [...] Available [facility] [address] [place], [address], 06/14/2018 15:24:53 06/15/19 19 06/14/2018 CK (raymond lincoln), total , serum CK,total only 75 U/L (0-190 ) Not Available [facility] [address] [place], [address], 06/14/2018 15:24:54 06/15/19 19 06/14/2018 TSH, serum or plasm a TSH 0.89 mIU/m L (0.40- 4.00) Not Available [facility] [address] [place], [address], 06/14/2018 15:37:23 05/16/19 18 elect rocar diogr [...] ce of an acute proces s. WSN: [id number] Dictat ed By: Delonte Barrios MD Dictat ed Date/T erlinda: 10:26 a Review ed By: Delonte Barrios MD Signed By: Delonte Barrios MD Signed Date/T erlinda: 10:26 am Transc ribed By: CSB Transc ribed Date/T erlinda: 10:24 am Patien t Class: Outpat [facility] (Outpt Imaging) [address] [place], [address], 06/15/2018 15:07:23 06/15/19 19 06/14/2018 XR, lumba [...] ce of an acute proces s. WSN: [id number] Dictat ed By: Delonte Barrios MD Dictat ed Date/T erlinda: 10:26 a Review ed By: Delonte Barrios MD Signed By: Delonte Barrios MD Signed Date/T erlinda: 10:26 am Transc ribed By: PASTORA Transc ribed Date/T erlinda: 10:24 am Patien t Class: Outpat ient [facility] (Outpt Imaging) [address] [place], [address], 06/15/2018 15:07:23 Result Notes None recorded. Problems Name Problem SNOMED Code Status Onset Date Resolution Date Notes Provider Name and Address Organization Details Recorded Time Anemia due to chronic blood loss 341638870 Completed 201108/23/2013 RECORDED 10/31/19 12 2:42PM BY NICKY WOODS ON/ADDEN TORIE rosario [facility] 6 11:38:21 Anxiety state 067547313 Active 2012 Becky Norton MA null, [facility] 7 17:00:55 Tobacco user [id number] Completed 201208/23/2013 RECORDED 01/28/20 13 1:17PM BY ALEXANDRE AGUILAR MA, ANNOTATI ON/ADDEN DUM Becky Norton MA null, [facility] 7 17:00:35 History of clinical finding in subject [id number] Completed 201209/17/2016 RECORDED 01/28/20 13 1:17PM BY ALEXANDRE AGUILAR MA, ANNOTATI ON/ADDEN DUM Becky Norton MA null, [facility] 7 17:01:11 Asthma 074419983 Active 2012 Becky Norton MA null, [facility] 7 17:00:52 Screenin g for malignan t neoplasm of breast Completed 201410/31/2016 Dr. Susy Ortega, negative Becky Norton MA null, [facility] 7 13:35:13 Screenin g for malignan t neoplasm of breast Completed 201108/23/2013 RECORDED 10/31/19 12 2:41PM BY JEREL WOODSATI ON/ADDEN DUM Becky Norton MA null, [facility] 7 13:35:13 Chest pain 58919858 Completed 201108/23/2013 RECORDED 10/31/19 12 2:41PM BY JEREL WOODSATI ON/ADDEN DUM Michelle Degutis null, [facility] 6 11:38:22 Screenin g for malignan t neoplasm of colon Completed 201208/23/2013 RECORDED 04/30/19 13 2:37PM BY TEA HANDY MA, ANNOTATI ON/ADDEN DUM Michelle Degutis null, [facility] 6 11:38:22 Divertic ular disease of colon 913241296 Completed 201108/23/2013 STORY: PT WAS SEEN IN OUR OFFICE 11/30/09 FOR RECTAL BLEEDING AND WAS REFERRED TO GI FOR AN EVALUATI ON. THAT EVENING EVERY TIME THE PT ATE SOMETHIN G SHE WOULD BE GOING TO THE BATHROOM TO HAVE A BM THAT WAS FILLED WITH BLOOD. AFTER A FEW TIMES THE PT TOOK HERSELF TO [facility] TO BE EVALUATE D. THE ONLY SX THAT THE PT FELT WAS BLOATING AND CRAMPING EVERYTIM E SHE ATE. PT HAD TO UNDERGO A COLONOSC OPY WITCH SHOWED THAT THE PT HAD BLEEDING COMING FROM THE ASCENDIN G,DESCEN DING, AND TRANSVER SE COLON. PT WAS LATER TRANSFER RED TO [facility] TO BE WATCHED CLOSELY. PT WAS THEN PLACED ON A LIQUID DIET UNTIL THE TIME WHERE SHE COULD TOLERATE SOLID FOOD WITH OUT PASSING A BM THAT WAS BLOODY. MEDICATI ON HAS BEEN RECONSIL ED WITH THE PT AND SHE WILL F/U WITH MGD 12/21/09 .; RECORDED 10/31/19 12 2:41PM BY NICKY WOODS ON/ADDEN DUM [place] Aziza rosario [facility] 6 11:38:21 Hemorrha ge of colon [id number] Completed 201108/23/2013 STORY: STABLE/ STILL ANEMIC; RECORDED 10/31/19 12 2:41PM BY NICKY WOODS ON/ADDEN DUM Michelle Aziza rosario [facility] 6 11:38:22 Divertic ulitis of colon 700022879 Active 2011 Becky rosario [facility] 7 17:00:37 Dysuria 71340239 Completed 201108/23/2013 IMPRESSI ON: 3+ LEUKOCYT ES ON UA TODAY, COMPLETE D BACTRIM 2 DAYS AGO, START CIPRO AND SEND CULTURE; RECORDED 10/31/19 12 2:41PM BY NICKY WOODS ON/ADDEN DUM Becky rosario [facility] 7 17:01:13 Gastroes ophageal reflux disease 218256843 Active 2012 Becky rosario, [facility] 7 17:00:59 Essentia l hyperten julisa 00490771 Active 2012 Becky rosario, [facility] 7 17:01:17 Essentia l hyperten julisa 83719750 Completed 201108/23/2013 RECORDED 10/31/19 12 2:41PM BY JEREL WOODSATI ON/ADDEN DUM Becky rosario, [facility] 7 17:01:17 External hemorrho ids 63757861 Active 2012 Becky rosario, [facility] 7 17:01:03 Influenz a vaccine needed 04109854246 06 Completed 201208/23/2013 RECORDED 04/30/19 13 2:37PM BY TEA HANDY MA, ANNOTATI ON/ADDEN DUM Michelle Aziza [facility] 6 11:38:22 Follow-u p encounte r Completed 201208/23/2013 RECORDED 04/30/19 13 2:37PM BY TEA HANDY MA, ANNOTATI ON/ADDEN D[facility] 6 11:38:22 Tobacco user 959148035 Active 2012 Becky rosario [facility] 7 17:00:35 Adult health examinat ion Completed 201209/17/2016 STORY: COLONOSC OPY DUE 2016/ SS/TUBUL AR ADENOMA; RECORDED 01/28/20 13 1:58PM BY RICARDO COLE MD, OFFICE VISIT Becky rosario [facility] 7 17:01:05 Adult health examinat ion Completed 201208/23/2013 RECORDED 04/30/19 13 2:37PM BY TEA HANDY MA, ANNOTATI ON/ADDEN DUM Becky rosario [facility] 7 17:01:05 Hearing loss 47911117 Active 2012 Becky rosario [facility] 7 17:00:40 History of Malignan t melanoma [id number] Active 2013 Becky rosario [facility] 7 17:00:45 Hypo-osm olality and or hyponatr emia [id number] Completed 201108/23/2013 RECORDED 10/31/19 12 2:41PM BY VIOLA MOLINA I ANNOTATI ON/ADDEN DUM [facility]mel[facility]ed[facility]ard [facility] [place] [place] 6 11:38:21 Impacted cerumen [id number] Completed 201208/23/2013 RECORDED 01/28/20 13 1:17PM BY ALEXANDRE AGUILAR MA, ANNOTATI ON/ADDEN DUM Becky rosario [facility] 7 17:00:46 Irritabl e bowel syndrome [id number] Active 2012 Becky rosario [facility] 7 17:00:31 Renewal of prescrip tion Completed 201208/23/2013 RECORDED 04/30/19 13 2:37PM BY TEA HANDY MA, ANNOTATI ON/ADDEN DUM Michelle Ervin [facility] 6 11:38:22 Malignan t melanoma of skin [id number] Active 2013 Becky rosario [facility] 7 17:01:28 Active or passive immuniza tion Completed 200908/23/2013 RECORDED 03/01/19 10 9:56AM BY PILLO Masters NP, OFFICE VISIT Michelle Antoniousha abraham [facility] 6 11:38:22 Examinat ion for suspecte d mental disorder Completed 201108/23/2013 RECORDED 10/31/19 12 2:41PM BY NICKY WOODS ON/[facility] [employer] null, [facility] 6 11:38:22 Pre-surg girish evaluati on Completed 201208/23/2013 IMPRESSI ON: PT IS MEDICALL Y ABLE TO UNDERGO SURGERY, NO ACTIVE ISSUES, IS ABLE TO LAY FLAT AND STILL, EKG NL AND WILL GET LABS; RECORDED 01/28/20 13 1:17PM BY ALEXANDRE AGUILAR MA, ANNOTATI ON/[facility] [employer] null, [facility] 6 11:38:22 Tachycar wesley [id number] Completed 201108/23/2013 RECORDED 10/31/19 12 2:42PM BY NICKY WOODS ON/[facility] Degutis null, [facility] 6 11:38:22 Retentio n of urine 835752119 Completed 201208/23/2013 RECORDED 04/30/19 13 2:37PM BY TEA HANDY MA, ANNOTATI ON/[facility] Degutis null, [facility] 6 11:38:22 Urinary tract infectio us disease 63311947 Active 2013 Becky rosario, [facility] 7 17:01:20 Vaginiti s and vulvovag initis Completed 201108/23/2013 IMPRESSI ON: VAGINAL ITCHING AFTER COMPLETI NG ANTIBIOT ICS; RECORDED 10/31/19 12 2:42PM BY NICKY WOODS ON/[facility] Degutis null, [facility] 6 11:38:22 Impacted cerumen 56546917 Completed 09/17/2016 Becky rosario, [facility] 7 17:00:46 Hyponatr emia 42100950 Completed 09/04/2017 Dilshad Hall MD [address] [address], [facility] [place], [phone] , [facility] [place] 8 06:00:03 Anemia due to chronic blood loss 649656577 Completed 201109/15/2013 RECORDED 10/31/19 12 2:42PM BY VIOLA MOLINA I ANNOTATI ON/ADDEN DUM Michelle Degutis null, [facility] 6 11:38:21 Tobacco user [id number] Completed 201209/15/2013 RECORDED 01/28/20 13 1:17PM BY ALEXANDRE AGUILAR MA, ANNOTATI ON/ADDEN DUM Becky Norton MA null, [facility] 7 17:00:35 Chest pain 59783404 Completed 201109/15/2013 RECORDED 10/31/19 12 2:41PM BY VIOLA MOLINA I ANNOTATI ON/ADDEN DUM Michelle Degutis null, [facility] 6 11:38:22 Screenin g for malignan t neoplasm of colon Completed 201209/15/2013 RECORDED 04/30/19 13 2:37PM BY TEA HANDY MA, ANNOTATI ON/ADDEN DUM Michelle Degutis null, [facility] 6 11:38:22 Divertic ular disease of colon 428994931 Completed 201109/15/2013 STORY: PT WAS SEEN IN OUR OFFICE 11/30/09 FOR RECTAL BLEEDING AND WAS REFERRED TO GI FOR AN EVALUATI ON. THAT EVENING EVERY TIME THE PT ATE SOMETHIN G SHE WOULD BE GOING TO THE BATHROOM TO HAVE A BM THAT WAS FILLED WITH BLOOD. AFTER A FEW TIMES THE PT TOOK HERSELF TO [facility] TO BE EVALUATE D. THE ONLY SX THAT THE PT FELT WAS BLOATING AND CRAMPING EVERYTIM E SHE ATE. PT HAD TO UNDERGO A COLONOSC OPY PATITO SHOWED THAT THE PT HAD BLEEDING COMING FROM THE [place]END[place],DESCEN DING, AND TRANSVER SE COLON. PT WAS LATER TRANSFER RED TO [facility] TO BE WATCHED CLOSELY. PT WAS THEN PLACED ON A LIQUID DIET UNTIL THE TIME WHERE SHE COULD TOLERATE SOLID FOOD WITH OUT PASSING A BM THAT WAS BLOODY. MEDICATI ON HAS BEEN RECONSIL ED WITH THE PT AND SHE WILL F/U WITH MGD 12/21/09 .; RECORDED 10/31/19 12 2:41PM BY NICKY WOODS ON/ADDEN DUM Michelle Palmaedouard rosario [facility] 6 11:38:21 Hemorrha ge of colon 32950714 Completed 201109/15/2013 STORY: STABLE/ STILL ANEMIC; RECORDED 10/31/19 12 2:41PM BY NICKY WOODS ON/ADDEN DUM Michelle Antonioutis null, [facility] 6 11:38:22 Dysuria 03375895 Completed 201109/15/2013 IMPRESSI ON: 3+ LEUKOCYT ES ON UA TODAY, COMPLETE D BACTRIM 2 DAYS AGO, START CIPRO AND SEND CULTURE; RECORDED 10/31/19 12 2:41PM BY NICKY WOODS ON/ADDEN DUM Becky Norton ID abraham [facility] 7 17:01:13 Influenz a vaccine needed [id number] 06 Completed 201209/15/2013 RECORDED 04/30/19 13 2:37PM BY TEA HANDY MA, ANNOTATI ON/ADDEN DUM Michelle Ervin abraham, [facility] 6 11:38:22 Follow-u p encounte r Completed 201209/15/2013 RECORDED 04/30/19 13 2:37PM BY TEA HANDY MA, ANNOTATI ON/ADDEN DUM Michelle Antoniousha rosario, [facility] 6 11:38:22 Hypo-osm olality and or hyponatr emia 573984416 Completed 201109/15/2013 RECORDED 10/31/19 12 2:41PM BY NICKY WOODS ON/ADDEN DUM Michelle Antonioutis null, [facility] 6 11:38:21 Impacted cerumen 04352613 Completed 201209/15/2013 RECORDED 01/28/20 13 1:17PM BY ALEXANDRE AGUILAR MA, ANNOTATI ON/ADDEN DUM Becky Norton MA null, [facility] 7 17:00:46 Renewal of prescrip tion Completed 201209/15/2013 RECORDED 04/30/19 13 2:37PM BY TEA HANDY MA, JERELATI ON/ADDEN DUM Michelle Degutis null, [facility] 6 11:38:22 Active or passive immuniza tion Completed 200909/15/2013 RECORDED 03/01/19 10 9:56AM BY PILLO Masters NP, OFFICE VISIT Michelle Pacoutis null, [facility] 6 11:38:22 Examinat ion for suspecte d mental disorder Completed 201109/15/2013 RECORDED 10/31/19 12 2:41PM BY NICKY WOODS ON/[facility] DUM Michelle Degutis null, [facility] 6 11:38:22 Pre-surg girish evaluati on Completed 201209/15/2013 IMPRESSI ON: PT IS MEDICALL Y ABLE TO UNDERGO SURGERY, NO ACTIVE ISSUES, IS ABLE TO LAY FLAT AND STILL, EKG NL AND WILL GET LABS; RECORDED 01/28/20 13 1:17PM BY ALEXANDRE AGUILAR MA, JERELATI ON/[facility] DUM Michelle Degutis null, [facility] 6 11:38:22 Tachycar wesley [id number] Completed 201109/15/2013 RECORDED 10/31/19 12 2:42PM BY JEREL WOODSATI ON/ADDEN DUM Michelle Degutis null, [facility] 6 11:38:22 Retentio n of urine 812401482 Completed 201209/15/2013 RECORDED 04/30/19 13 2:37PM BY TEA HANDY MA, ANNOTATI ON/ADDEN DUM Michelle Degutis null, [facility] 6 11:38:22 Vaginiti s and vulvovag initis Completed 201109/15/2013 IMPRESSI ON: VAGINAL ITCHING AFTER COMPLETI NG ANTIBIOT ICS; RECORDED 10/31/19 12 2:42PM BY NICKY WOODS ON/ADDEN DUM Michelle Degutis null, [facility] 6 11:38:22 Anemia due to chronic blood loss 855850182 Completed 201109/16/2013 RECORDED 10/31/19 12 2:42PM BY JEREL WOODSATI ON/ADDEN DUM Michelle Degutis null, [facility] 6 11:38:21 Tobacco user [id number] Completed 201209/16/2013 RECORDED 01/28/20 13 1:17PM BY ALEXANDRE AGUILAR MA, ANNOTATI ON/ADDEN DUM Becky Norton MA null, [facility] 7 17:00:35 Chest pain 26426620 Completed 201109/16/2013 RECORDED 10/31/19 12 2:41PM BY JEREL WOODSATI ON/ADDEN DUM Michelle Degutis null, [facility] 6 11:38:22 Screenin g for malignan t neoplasm of colon Completed 201209/16/2013 RECORDED 04/30/19 13 2:37PM BY TEA HANDY MA, JERELATI ON/ADDEN DUM Michelle Degutis null, [facility] 6 11:38:22 Divertic ular disease of colon 236658618 Completed 201109/16/2013 STORY: PT WAS SEEN IN OUR OFFICE 11/30/09 FOR RECTAL BLEEDING AND WAS REFERRED TO GI FOR AN EVALUATI ON. THAT EVENING EVERY TIME THE PT ATE SOMETHIN G SHE WOULD BE GOING TO THE BATHROOM TO HAVE A BM THAT WAS FILLED WITH BLOOD. AFTER A FEW TIMES THE PT TOOK HERSELF TO [facility] TO BE EVALUATE D. THE ONLY SX THAT THE PT FELT WAS BLOATING AND CRAMPING EVERYTIM E SHE ATE. PT HAD TO UNDERGO A COLONOSC OPY WITCH SHOWED THAT THE PT HAD BLEEDING COMING FROM THE [place],DESCEN DING, AND TRANSVER SE COLON. PT WAS LATER TRANSFER RED TO [facility] TO BE WATCHED CLOSELY. PT WAS THEN PLACED ON A LIQUID DIET UNTIL THE TIME WHERE SHE COULD TOLERATE SOLID FOOD WITH OUT PASSING A BM THAT WAS BLOODY. MEDICATI ON HAS BEEN RECONSIL ED WITH THE PT AND SHE WILL F/U WITH MGD 12/21/09 .; RECORDED 10/31/19 12 2:41PM BY NICKY WOODS ON/ADDEN DUM Michelle Antonioutedouard rosario [facility] 6 11:38:21 Hemorrha ge of colon 16325323 Completed 201109/16/2013 STORY: STABLE/ STILL ANEMIC; RECORDED 10/31/19 12 2:41PM BY NICKY WOODS ON/ADDEN DUM Michelle Antonioutedouard rosario [facility] 6 11:38:22 Dysuria 64555236 Completed 201109/16/2013 IMPRESSI ON: 3+ LEUKOCYT ES ON UA TODAY, COMPLETE D BACTRIM 2 DAYS AGO, START CIPRO AND SEND CULTURE; RECORDED 10/31/19 12 2:41PM BY NICKY WOODS ON/ADDEN TORIE rosario [facility] 7 17:01:13 Influenz a vaccine needed [id number] 06 Completed 201209/16/2013 RECORDED 04/30/19 13 2:37PM BY TEA HANDY MA, ANNOTATI ON/ADDEN DUM Michelle rosario [facility] 6 11:38:22 Follow-u p encounte r Completed 201209/16/2013 RECORDED 04/30/19 13 2:37PM BY TEA HANDY MA, ANNOTATI ON/ADDEN DUM Michelle rosario [facility] 6 11:38:22 Hypo-osm olality and or hyponatr emia 386145754 Completed 201109/16/2013 RECORDED 10/31/19 12 2:41PM BY NICKY WOODS/CHARLIE DUM Michelle Degutis null, [facility] 6 11:38:21 Impacted odilia 67568600 Completed 201209/16/2013 RECORDED 01/28/20 13 1:17PM BY ALEXANDRE AGUILAR MA, ANNOTATI ON/ADDEN DUM Becky Cierra GALLAGHER null, [facility] 7 17:00:46 Renewal of prescrip tion Completed 201209/16/2013 RECORDED 04/30/19 13 2:37PM BY TEA HANDY MA, JERELATI ON/ADDEN DUM Michelle Degutis null, [facility] 6 11:38:22 Active or passive immuniza tion Completed 200909/16/2013 RECORDED 03/01/19 10 9:56AM BY PILLO Masters NP, OFFICE VISIT [place] Pacoutis null, [facility] 6 11:38:22 Examinat ion for suspecte d mental disorder Completed 201109/16/2013 RECORDED 10/31/19 12 2:41PM BY NICKY WOODS ON/[facility] TORIE Michelle Degutis null, [facility] 6 11:38:22 Pre-surg girish evaluati on Completed 201209/16/2013 IMPRESSI ON: PT IS MEDICALL Y ABLE TO UNDERGO SURGERY, NO ACTIVE ISSUES, IS ABLE TO LAY FLAT AND STILL, EKG NL AND WILL GET LABS; RECORDED 01/28/20 13 1:17PM BY ALEXANDRE AGUILAR MA, NICKY ON/ADDEN DUM Michelle Degutis null, [facility] 6 11:38:22 Tachycar wesley [id number] Completed 201109/16/2013 RECORDED 10/31/19 12 2:42PM BY NICKY WOODS ON/ADDEN DUM Michelle Degutis null, [facility] 6 11:38:22 Retentio n of urine 233514296 Completed 201209/16/2013 RECORDED 04/30/19 13 2:37PM BY TEA HANDY MA, ANNOTATI ON/ADDEN DUM Michelle Ervin abraham [facility] 6 11:38:22 Vaginiti s and vulvovag initis Completed 201109/16/2013 IMPRESSI ON: VAGINAL ITCHING AFTER COMPLETI NG ANTIBIOT ICS; RECORDED 10/31/19 12 2:42PM BY NICKY WOODS ON/ADDEN DUM Michelle Ervin abraham [facility] 6 11:38:22 Dermatit is Completed 09/17/2016 Becky rosario [facility] 7 17:00:48 Dysuria 52906362 Completed 09/17/2016 Becky rosario [facility] 7 17:01:13 Insomnia 498639086 Active [place] Pacohermelindaedouard abraham [facility] 6 11:38:21 Advance directiv e discusse d with patient 374667049 Completed 09/17/2016 Becky rosario [facility] 7 17:01:07 Polyp of colon 00640650 Active [place] Aziza abraham [facility] 6 11:38:21 Chronic low back pain 078020008 Active 2018 Rebeca rosario [facility] 9 14:22:51 Problem Notes None recorded. Procedures Surgical History Date Name Laterality Status Provider Name and Address Organization Details Recorded Time 01/21/20 19 Mini-Cog Test completed Leila Julien MA [facility] 01/20/2019 09:52:44 12/30/19 18 Most Recent Mammogram completed Leila Julien MA [facility] 01/20/2019 09:47:42 12/19/19 18 Mini-Cog Test completed Naheed Veliz [facility] 12/18/2017 13:13:25 12/02/19 17 Fall Risk Assessment completed Becky Norton MA [facility] 12/01/2016 13:22:35 12/02/19 17 Mini-Cog Test completed Beckybridger Norton MA [facility] 12/01/2016 13:23:31 11/29/19 17 Mammogram both breasts completed Kimmy Yañez [facility] 12/09/2016 14:44:18 10/17/19 17 Date of Last Colonoscopy completed Paola Whittakera [facility] 12/09/2016 16:54:35 10/17/19 17 Colonoscopy completed Beckybridger Norton [facility] 10/24/2016 11:43:36 03/23/19 16 Fall Risk Assessment completed Beckybridger Norton [facility] 03/23/2015 13:55:01 03/23/19 16 Mini-Cog Test completed [facility] 03/23/2015 14:02:26 03/23/19 16 Advanced Care Planning completed Beckybridger Norton [facility] 03/23/2015 13:41:44 08/19/19 15 Date of Last Pap Smear completed Michelle Ervin [facility] 03/28/2015 11:40:33 02/23/19 11 Most Recent Bone Density completed Beckybridger Norton [facility] 03/23/2015 14:07:39 02/09/19 08 Appendectomy completed Tea Handy [facility] 03/02/2014 10:46:37 Imaging Results Imaging Date Name Status LastModified by Organization Details LastModified Time 05/15/2017 electrocardiogram completed Infor mation not available 05/15/2017 12:36:53 06/14/2018 XR, sacrum + coccyx, 2 or more view active [facility] [address] [place], [address], 06/15/2018 15:07:23 06/14/2018 XR, lumbar spine active [facility] [address] [place], [address], 06/15/2018 15:07:23 Procedure Notes None recorded. Medical Equipment None Reported. Allergies Allergen ID Allergen Name Allergen Category Reaction Reaction Severity Criticality Documentation Date Start Date Code Code System Note Provider Name and Address Organization Details Recorded Time 2935 latex environme nt,medica tion rash Not available Not available 08/23/20132012 77159 91 [facility] [place] 7 17:00:18 Medications Name Sig Start [...] Updated DateTime 8 154.94 cm 31.4 kg/m2 03095.4 3 g 98.7 [degF] 96 % 96 % 89 /min 118 mm[Hg] 76 mm[Hg] Bekcy Norton MA [facility] 8 11:28:28 Date Recorded Body height Body mass index (BMI) Body weight Heart rate Oxygen saturation Oxygen saturation in Arterial blood by Pulse oximetry Body temperature Systolic blood pressure Diastolic blood pressure Provider Name and Address Organization Details Last Updated DateTime 8 154.94 cm 30.8 kg/m2 62642.5 6 g 94 /min 97 % 97 % 97.5 [degF] 136 mm[Hg] 74 mm[Hg] Viola Medina [facility] 8 10:41:30 Date Recorded Body height Body mass index (BMI) Body weight Body temperature Heart rate Oxygen saturation Oxygen saturation in Arterial blood by Pulse oximetry Systolic blood pressure Diastolic blood pressure Provider Name and Address Organization Details Last Updated DateTime 8 154.94 cm 30.5 kg/m2 59985.4 7 g 97.2 [degF] 86 /min 96 % 96 % 123 mm[Hg] 72 mm[Hg] Naheed Winnignacia [facility] 8 12:57:56 Date Recorded Body height Body mass index (BMI) Body weight Heart rate Oxygen saturation Oxygen saturation in Arterial blood by Pulse oximetry Body temperature Systolic blood pressure Diastolic blood pressure Provider Name and Address Organization Details Last Updated DateTime 9 154.94 cm 30.2 kg/m2 13294.7 8 g 92 /min 96 % 96 % 98.4 [degF] 124 mm[Hg] 78 mm[Hg] Ruby Garciau [facility] 9 12:59:19 Date Recorded Body height Body mass index (BMI) Body weight Oxygen saturation Oxygen saturation in Arterial blood by Pulse oximetry Heart rate Body temperature Systolic blood pressure Diastolic blood pressure Provider Name and Address Organization Details Last Updated DateTime 9 154.94 cm 30.7 kg/m2 47106.0 6 g 96 % 96 % 81 /min 98.1 [degF] 119 mm[Hg] 67 mm[Hg] Leila Julien MA [facility] 9 09:56:35 Social History Question Answer Notes LastModified by Organizat ion Details LastModified Time Tobacco Smoking Status [facility] [place] 09/08[facility]2013 11:26:06 Do You Have An Advance [...] E-cigarettes Or Vape? 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 Never Used Smokeless Tobacco [email or web address] Information not available 01/20/2019 How Much Tobacco Do You Smoke? 1 PPW [email or web address] Information not available 01/20/2019 General Stress Level [...] virus, quadrivalent, PF 5 completed Becky rosario [facility] 03/23/2015 14:06:48 Influenza, high-dose, trivalent, PF 7 completed Not Available [facility] 02/26/2019 02:22:21 Novel [id number]-[id number], all formulations 0 completed Not Available [facility] 08/23/2013 13:38:52 pneumococcal polysaccharide PPV23 0 completed Not Available [facility] 08/23/2013 13:38:52 Influenza, split virus, trivalent, preservative 0 completed Not Available [facility] 08/23/2013 13:38:52 Influenza, split virus, trivalent, preservative 1 completed Not Available [facility] 08/23/2013 13:38:52 Influenza, split virus, trivalent, preservative 2 completed Not Available [facility] 08/23/2013 13:38:52 Influenza, split virus, trivalent, preservative 3 completed Not Available [facility] 08/23/2013 13:38:52 Influenza, high-dose, trivalent, PF 8 completed Not Available [facility] 02/26/2019 02:22:14 Influenza, high-dose, trivalent, PF 9 completed Not Available [facility] 02/26/2019 02:22:09 Past Encounters Encounter ID Performer Location Encounter Start Date Encounter Closed Date Diagnosis/Indication Diagnosis SNOMED-CT Code Diagnosis ICD10 Code Diagnosis Note [id number] [facility] Main Office [address] [facility] [address] [place] [id number] 09/08/2013 11:14:56 09/08/2013 11:58:13 Essential hypertension 24587635 well controlled Asthma 504015027 followe d by pulm, well controlled on symbicort Anxiety state 494336233 Impacted cerumen 27475912 successful ly removed with ear lavage [id number] [facility] [address] [facility] [place] [id number] 03/01/2009 00:00:00 [id number] [facility] [address] [facility],[address] [place] [id number] 03/29/2009 00:00:00 [id number] [facility] [address] [facility],[address] [place] [address] 09/10/2009 00:00:00 [id number] [address] [address] [place] [address] 11/13/2009 00:00:00 [id number] [facility] [address] [place] [address] 11/30/2009 00:00:00 [id number] [facility] [address] [place] [id number] 12/21/2009 00:00:00 [id number] [facility] [place] [address] 02/11/2010 00:00:00 [id number] [facility]ce [address] [place] [id number] 05/17/2010 00:00:00 [id number] [facility] [facility]ce [address] [facility] [place] [id number] 08/23/2010 00:00:00 [id number] [facility] [facility] [address] [place] [id number] 09/04/2010 00:00:00 [id number] [facility] erce [address] [facility] [place] [id number] 11/29/2010 00:00:00 [id number] [facility] [facility] [address] [facility] [place] [id number] 01/10/2011 00:00:00 [id number] [facility] [facility] [address] [facility] [place] [id number] 05/02/2011 00:00:00 [id number] [facility] [address] [place] [id number] 10/31/2011 00:00:00 [id number] [facility] erce [address] [facility] [place] [id number] 04/29/2012 00:00:00 [id number] [facility] [address] [place] [id number] 07/15/2012 00:00:00 [id number] [facility] [address] [facility] [address] [place] [id number] 01/27/2013 00:00:00 [id number] [facility] Main Office [address] [address] [place] [id number] 09/26/2013 13:41:44 09/26/2013 14:55:33 Dermatitis 111123576 candidal dermatitis [id number] [facility] Main Office [address] [address] [place] [id number] 03/02/2014 12:39:53 03/02/2014 13:42:38 Essential hypertension 06552121 Hyponatremia 11779515 pt to see Dr Pride regularly/ pt aware that she needs to stop using clorazepat e / see psych referral Anxiety state 672681615 Dysuria 07181495 [id number] Becky Norton ID Main Office [address] [address] [place] [id number] 04/21/2014 14:46:19 04/21/2014 15:48:33 Essential hypertension 84738042 both meds helpful/ Diltiazem and lisinopril Gastroesop hageal reflux disease 710623054 pt on PPI Anxiety state 108658436 Asthma 566982342 [id number] Ricardo medellin Main Office [address] [address] [place] [id number] 03/23/2015 13:27:48 03/23/2015 14:47:01 Adult health examination 927460716 Z00.00 At [facility] ed risk for falls 074930258 Z91.81 Advance di rective discussed with patient 329758624 Z71.89 pt will have her brother as health care proxy Essential hypertension 13896380 I10 both meds helpful/ Diltiazem and lisinopril Polyp of colon 16681080 K63.5 pt due for colonoscop y 2017 /tubular adenoma/We iss Asthma 920298052 J45.90 9 Anxiety state 056748985 F41.1 [id number] Ricardo medellin Main Office [address] [address] [place] [id number] 10/05/2015 12:46:12 10/05/2015 13:40:50 Essential hypertension 92071346 I10 both meds helpful/ Diltiazem and lisinopril Asthma 050011748 J45.90 9 urged pt to get flu shot soon. Anxiety state 391143567 F41.1 [id number] Ricardo Carversusana medellin Main Office [address] [address] [place] [id number] 06/19/2016 12:55:50 06/19/2016 14:13:50 Fatigue 19683916 R53.83 Abnormal weight loss 267 635399 R63.4 Diarrhea 05547688 R19.7 Nausea 680757454 R11.0 d/w pt to elevate HOB/ cont PPI Impaired f asting glycemia 538485209 R73.01 [id number] Ricardo Carversusana medellin Main Office [address] [address] [place] [id number] 10/23/2016 14:30:06 10/23/2016 15:27:24 [id number] Ricardo Carversusana medellin Main Office [address] [address] [place] [id number] 10/31/2016 13:21:48 10/31/2016 14:41:18 Lumbosacral radiculitis 97340611 M54.17 Influenza vaccine needed 3056096825 106 Z23 [id number] Ricardo Carversusana medellin Main Office [address] [address] [place] [id number] 12/01/2016 13:04:53 12/01/2016 14:09:38 Adult health examination 529005402 Z00.00 Essential hypertension 72610688 I10 both meds helpful/ Diltiazem and lisinopril Anxiety state 680870736 F41.1 [id number] Ricardo Carversusana medellin Main Office [address] [address] [place] [id number] 05/15/2017 11:16:16 05/15/2017 12:12:51 Anxiety state 587240618 F41.1 Essential hypertension 90591868 I10 both meds helpful/ Diltiazem and lisinopril Incomplete emptying of urinary bladder 414801324 R39.14 [id number] Maryanne fernandes Main Office [address] [address] [place] [id number] 11/13/2017 10:36:20 11/13/2017 11:18:17 Anxiety state 843800945 F41.1 has been on med for 20+ years, she is taking 3.75mg daily, will try to cut the dose in half if possible. f/u in 1 month for wellness visit. Influenza vaccine needed 0887597277 106 Z23 Gastroesop hageal reflux disease 272047990 K21.9 Essential hypertension 81454039 I10 well controlled , continue meds as directed. [id number] Ramon Callahan MD Main Office [address] [address] [place] [id number] 12/18/2017 12:40:39 12/18/2017 13:46:58 Adult health examination 535503746 Z00.00 UTD, she will call COURT REPORTER for appt Varicella vaccination 68 259226 Z23 Asthma 375383527 J45.90 9 Essential hypertension 18319101 I10 well controlled , continue meds as directed. Family his tory of Hypercholesterolemia 618269654 Z83.49 Anxiety state 338874480 F4Katerine.1 has been on med for 20+ years, she is taking 3.75mg daily, will try to cut the dose in half if possible. f/u in 1 month for wellness visit. [id number] NICOLÁS Fay Main Office [address] [address] [place] [address] 06/11/2018 12:42:51 06/11/2018 13:40:40 Low back pain 444579912 M54.5 Patient with chronic low back pain, in PT, seeing chiropract or, but wondering if she should be seeing someone else. Will check XR and refer back to [facility], she has seen them for this in the past. continue sx treatment, ibuprofen as needed. Cramp in lower limb 4499 71042 R25.2 Essential hypertension 76824322 I10 well controlled , continue meds as directed. Fatigue 57019649 R53.83 [id number] NICOLÁS Fay Main Office [address] [address] [place] [address] 01/20/2019 09:41:15 01/20/2019 10:33:29 Adult health examination 100011908 Z00.00 UTD, she has mammo scheduled, needs to call COURT REPORTER. Influenza vaccine needed 7347371546 106 Z23 Impaired f asting glycemia 908504846 R73.01 in June, sugar 125 and she believes she was fasting Hyperlipidemia 32541473 E78.5 Health Concerns Section Related Observation LastModified by Organization Detai ls LastModified Time None Recorded Concern Status LastModified by Organization Details LastModified Time None Recorded Advance Directives Directive Y: Payers Encounter Date Sequence Insurance Name Policy Number Policy Menendez Covered Member ID Menendez Member ID Guarantor Name 05/15/2017 2 [place] [id number] Noris E Oparowski [id number] Noris E Oparowski 05/15/2017 1 [place] Noris E Oparowski [id number] 06 Noris E Oparowski 11/13/2017 2 [place] [id number] Noris E Oparowski [id number] Noris E Oparowski 11/13/2017 1 [place] Noris E Oparowski [id number] Noris E Oparowski 12/18/2017 2 [place] [id number] Noris E Oparowski [id number] Noris E Oparowski 12/18/2017 1 [place] Noris E Oparowski [id number] Noris E Oparowski 06/11/2018 2 [place] [id number] Noris E Oparowski [id number] Noris E Oparowski 06/11/2018 1 [place] Noris E Oparowski [id number] 06 Noris E Oparowski 01/20/2019 2 [place] [id number] Noris E Oparowski [id number] Noris E Oparowski 01/20/2019 1 [place] Noris E Oparowski [id number] Noris E Oparowski Notes Date Note Type Note Provider Name and Address Organization Details Recorded Time 05/15/2017 text/html Anxiety/Depressi onRepo rted bypatient.Quality:incr eased anxiety; pt reports that sthe plans to return to her pschologist Dr Valdes this year Severity:able to maintain relationships Associated Symptoms:no significant weight gain; mood good; 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 mcfp hx of benzo use , > 20 [...] no fever;incomplete emptying of bladder Ricardo rosario [facility] 05/15/2017 12:16:47 11/13/2017 text/html Anxiety/Depressi onRepo rted bypatient.Quality:incr eased anxiety; stress, car trouble Severity:able to maintain relationships Context:major life stressors;family problems Associated Symptoms:no significant weight gain;high irritability;hostility ;anxiety;hypersensitiv ity;anxiety with muscle tension; 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 Miller at [facility]. Was discharged in 2017 due to improvement with PT. 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 Since the fall her back pain is worse. Denis Marcos, [facility] [address] [address], [place], [address], [facility] [place] 06/11/2018 13:40:34 01/20/2019 text/html Medicare Annual Wellness [...] states she found a new PCP in [place] but cannot be seen until May. Denis [facility]cos [facility] [address] [place] [address], [place], [address], [facility] [place] 01/20/2019 10:57:40 OBGyn Episode No OBEpisode recorded.
--- OUTSIDE RECORDS SUMMARY | 2024-03-16 13:22 | XMS_ITS | Clinical Summary ---
Author Organization [facility] Address [address] [place] [address] Care Team Providers Care Planner Scheduler Name Role Phone Community, Pcp Primary Care [...] VACCINE Completed 04/21/2014, 03/01/19 10 Care Teams Planner Scheduler Relationship Specialty Start Date End Date Community, Pcp PCP - General Internal Medicine 09/23/19
--- OUTSIDE RECORDS SUMMARY | 2024-03-16 13:22 | XMS_ITS | Encounter Summary ---
Author Organization [facility] Address [facility] [place] [address] Care Team Providers Care Certified Athletic Trainer Name Role Phone Gennaro Guillaume MD Primary Care Provider Yadira estrada [facility], Pcp Primary Care Provider Adriana e Reason for Visit * Reason Onset Date Comments Orders Call 07/21/2019 Encounter Details Date Type Department Care Team Description 07/21/2019 Telephone Medicine/Pediatrics - [address] [phone] Gennaro Guillaume MD Orders Call Social History [...] Miscellaneous Notes * Telephone Encounter - Jackie Chan - 07/21/2019 11:50 AM EDT [facility] - fax # is listed below and the phone Is listed in the contacts info Tel # [phone] * Telephone Encounter - Melanie Horowitz - 07/21/2019 11:30 AM EDT Patient needs order faxed to who. Please provide phone number and fax * Telephone Encounter - Jackie Chan - 07/21/2019 11:01 AM EDT Pt needs the order faxed over to them from 07/18 referral - pt has appt on 07/24 - fax [phone] documented in this encounter Plan of Treatment Not on file documented as of this encounter Visit Diagnoses Not on filedocumented in this encounter Care Teams Certified Athletic Trainer Relationship Specialty Start Date End Date Gennaro Guillaume MD PCP - General Internal Medicine 12/16/18 09/22/19 [facility], Pcp PCP - General Internal Medicine 09/23/19 documented as of this encounter
== END 2024-03-16 12:13 | disposition home or self-care (01) ==
PROVIDERS: PCP Family Medicine; Referring Provider Family Medicine; Visit Provider Internal Medicine Hypertension Specialist
DX: E87.1 Hypo-osmolality and hyponatremia (principal)
CPT/HCPCS: 99204

== ENCOUNTER 2024-03-16 11:30 | Outpatient (REF) | payer MEDICARE, MEDICAID, SELFPAY ==
[2024-03-16 18:27] LABS: MANUAL DIFF FLAG NO
[2024-03-16 18:39] LABS: Basophils Absolute Auto 0.1 X10*3/uL (0.0-0.2); Eosinophils Absolute Auto 0.3 X10*3/uL (0.0-0.4); Eosinophils Percent Auto 4.2 % (0-4); Hematocrit 34.8 % (37.0-47.0); Hemoglobin 11.8 g/dl (12.0-16.0); Imm Gran Abs Auto 0.02 X10*3/uL (0.00-0.03); Imm Gran Pct Auto 0.3 % (0.0-0.4); Lymphocytes Percent Auto 12.7 % (20-40); Mean Corpuscular HGB Conc 33.9 g/dl (31.0-35.0); Mean Corpuscular Hemoglobin 29.9 pg (27.0-33.0); Mean Corpuscular Volume 88.3 fL (80.0-98.0); Mean Platelet Volume 9.6 fL (9.4-12.3); Monocytes Absolute Auto 0.8 X10*3/uL (0.1-1.2); Monocytes Percent Auto 9.9 % (2-11); Neutrophils Absolute Auto 5.7 x10*3/uL (2.0-8.3); Neutrophils Percent Auto 71.9 % (45-73); Platelet Count 297 X10*3/uL (160-400); Red Blood Count 3.94 X10*6/uL (4.20-5.50); Red Cell Distribution Width 14.1 % (11.0-16.0); White Blood Count 7.9 X10*3/uL (4.8-10.8)
[2024-03-16 18:44] LABS: Estimated Average Glucose 105 mg/dL; Hemoglobin A1C 108.8218 umol/L; Hemoglobin A1c % 5.3 % (<6.0); Total Hemoglobin (HGBA1C) 3200.6102 umol/L
[2024-03-16 18:54] LABS: Anion Gap 10 (12-20); Blood Urea Nitrogen 6 mg/dL (9-16); Calcium 8.3 mg/dL (8.4-10.2); Carbon Dioxide 25 mmol/L (22-29); Chloride 99 mmol/L (96-108); Estimated Glomerular Filt Rate > 60; Glucose Random 113 mg/dL (60-115); Potassium 4.1 mmol/L (3.3-5.1); Sodium 130 mmol/L (135-145)
[2024-03-16 19:13] LABS: TSH reflex Free T4 0.74 uIU/mL (0.32-4.0)
== END 2024-03-16 11:31 | disposition home or self-care (01) ==
LOC: HO.HKASLDS 11:30
PROVIDERS: Physician Assistant; PCP Family Medicine; Referring Provider Family Medicine; Visit Provider Internal Medicine Hypertension Specialist
DX: E87.1 Hypo-osmolality and hyponatremia (principal); J44.9 Chronic obstructive pulmonary disease, unspecified; I10 Essential (primary) hypertension; L29.9 Pruritus, unspecified; I26.94 Multiple subsegmental thrombotic pulmonary emboli without acute cor pulmonale; Z79.01 Long term (current) use of anticoagulants; Z86.718 Personal history of other venous thrombosis and embolism; R73.03 Prediabetes
CPT/HCPCS: 36415; 80048; 83036; 84443; 85025; 99202

== ENCOUNTER 2024-03-21 10:37 | Outpatient (AMB) | payer MEDICARE, MEDICAID, SELFPAY ==
[2024-03-21 10:54] LABS: Prothrombin Time Whole Bld POC 27.3 sec (11.1-13.5); ~PT, ~INR - Anti Coag Clinic 2.3 (0.9-1.1)
--- NOTE | 2024-03-21 11:02 | MHC.OFFVISCO ---
Intake Intake Visit Reasons: Anticoagulation Allergies Seasonal Allergies Allergy (Mild, Verified 03/21/24 10:49) runny nose latex Allergy (Verified 03/21/24 10:49) rash Medication List - Last Reconciled 03/21/24 by Anabella Otoole RN albuterol sulfate 90 mcg/actuation 2 puffs inhalation Q8H PRN cetirizine (Zyrtec) 10 mg PO DAILY PRN cholecalciferol (vitamin D3) 50 mcg PO DAILY citalopram 20 mg PO DAILY 90 days clonazepam 0.5 mg PO BID PRN diltiazem HCl CD 120 mg PO DAILY 90 days fluticasone propion-salmeterol 500-50 mcg/dose (Wixela Inhub) 1 inh inhalation BID fluticasone propionate 50 mcg/actuation (Flonase Allergy Relief) 1 spray intranasal Q12H 30 days gabapentin 300 mg PO BID lisinopril 10 mg PO DAILY omeprazole 20 mg PO DAILY tamsulosin 0.4 mg PO BEDTIME 90 days warfarin 2 mg See Protocol PO DAILY 30 days Nursing Note INR: 2.3 in therapeutic range Medications and supplements reviewed TO HAVE ULTRA SOUNDS OF LOWER EXTREMTIES TO ASSESS VASCULARTURE Denies any signs and symptoms of bleeding or bruising or clotting. Bleeding, bruising, clotting discussed Nutritional guidance given Dose: Keep 2mg x 1 day/ 1mg x 6 days F/U INR: 2 weeks Patient verbalizes understanding of instructions given Anti-Coag Initial Assessment Social Hx Patient Tobacco Use Status: Former Tobacco user (20 years quit around age 51 ) Tobacco use type: Cigarette Smoking packs per day: 1.0 alcohol intake: current Alcohol intake frequency: 0-2 drinks per day (about 2 daily with ice ) Cardiovascular Hx: HTN and Other (edma right foot > left foot had dvt ) Lung Disease HX: Asthma, COPD (believe r/t to work exposure and smoking) and DVT/PE (2022 after having RSV and covid vaccines- pt feels r/t to vaccines also ) Endocrine Hx: Diabetes (being monitored ) Musculoskeletal Hx: Arthritis (mostly hand - all over, ) GI Hx: Bleeding (GI, rectal) (age 60s x 2 weeks 10 blood transfusions no found cause at the time - and none since then ) and Diverticulosis Hx: Bladder Disorders (URGENCY ) and Other (UPCOMING RENAL EVALUATIONS ) Cancer HX: Yes (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 Illness/Depression: Yes (anxiety ) Coding Level of Care Code Est Patient Level 1 Diagnoses Current use of anticoagulant therapy Z79.01 Assessment & Plan Assessment & Plan (1) Current use of anticoagulant therapy: Code(s): Z79.01 - intermediate manager (current) use of anticoagulants Category: Medical
== END 2024-03-21 11:05 | disposition home or self-care (01) ==
LOC: HO.ACS 10:37
PROVIDERS: PCP Family Medicine; Visit Provider Internal Medicine
DX: Z79.01 Long term (current) use of anticoagulants (principal)

== ENCOUNTER → 2024-03-21 10:37 | Outpatient (BNVA) | payer MEDICARE, MEDICAID, SELFPAY | PROVIDERS: PCP Family Medicine; Visit Provider Internal Medicine | DX: I26.94 Multiple subsegmental thrombotic pulmonary emboli without acute cor pulmonale (principal); Z86.718 Personal history of other venous thrombosis and embolism; Z79.01 Long term (current) use of anticoagulants; Z51.81 Encounter for therapeutic drug level monitoring | CPT/HCPCS: 85610; 99211 ==

== ENCOUNTER 2024-03-24 10:15 | Outpatient (REF) | payer MEDICARE, MEDICAID, SELFPAY ==
--- NOTE | ~2024-03-24 | US_ITS ---
EXAMINATION: US LOWER EXTREMITY VENOUS (REFLUX EXAM), BILATERAL CLINICAL INFORMATION: Varices. COMPARISON: None. TECHNIQUE: Color flow triplex imaging and compression Doppler was performed to evaluate both the deep and the superficial systems bilaterally. To evaluate the superficial system, the examination was performed in the upright position. Color-flow Doppler ultrasound and compression ultrasound were utilized. In addition, maneuvers were utilized to demonstrate reflux. FINDINGS: 1. DEEP VENOUS ULTRASOUND OF THE RIGHT LOWER EXTREMITY: Common Femoral Vein: Compressible, normal respiratory variation and augmented flow. Femoral Vein: Compressible, normal color flow and augmentation. Popliteal Vein: Compressible, normal augmentation. Deep Reflux: There is no evidence of reflux in the deep system in either the common femoral vein, superficial femoral or the popliteal vein. There is no evidence of a Valdes's cyst. 2. SUPERFICIAL ULTRASOUND WITH DOPPLER OF RIGHT LOWER EXTREMITY: GREAT SAPHENOUS VEIN: Saphenofemoral Junction: 0.5 cm; Reflux: 0 ms Proximal Thigh: 0.6 cm; Reflux: 0 ms Mid Thigh: 0.4 cm; Reflux: 0 ms Distal Thigh: 0.5 cm; Reflux: 0 ms At Knee: 0.5 cm; Reflux: 0 ms Proximal Calf: 0.4 cm; Reflux: 0 ms Mid Calf: 0.3 cm; Reflux: 0 ms Distal Calf: 0.3 cm; Reflux: 0 ms DUPLICATED MEDIAL GREAT SAPHENOUS VEIN: Diameter: None imaged Reflux: NA DUPLICATED LATERAL GREAT SAPHENOUS VEIN: Diameter: None imaged Reflux: NA SMALL SAPHENOUS VEIN: Saphenopopliteal Junction: 0.2 cm; Reflux: 0 ms Proximal: 0.3 cm; Reflux: 0 ms Distal: 0.3 cm; Reflux: 0 ms VEIN OF GIACOMINI: Size: 0.3 cm. Reflux: NA PERFORATORS: Location: Proximal to mid calf and distal posterior tibialis vein. Size: 0.1-0.2 cm. Reflux: NA VARICOSITIES: Location: None imaged. Size: NA Reflux: NA 3. DEEP VENOUS ULTRASOUND OF THE LEFT LOWER EXTREMITY: Common Femoral Vein: Compressible, normal respiratory variation and augmented flow. Femoral Vein: Compressible, normal color flow and augmentation. Popliteal Vein: Compressible, normal augmentation. Deep Reflux: There is a 1284 ms of reflux in the popliteal vein. There is no evidence of a Valdes's cyst. 4. SUPERFICIAL ULTRASOUND WITH DOPPLER OF LEFT LOWER EXTREMITY: GREAT SAPHENOUS VEIN: Saphenofemoral Junction: 0.7 cm; Reflux: 0 ms Proximal Thigh: 0.4 cm; Reflux: 0 ms Mid Thigh: 0.3 cm; Reflux: 0 ms Distal Thigh: 0.3 cm; Reflux: 0 ms At Knee: 0.3 cm; Reflux: 0 ms Proximal Calf: 0.2 cm; Reflux: 0 ms Mid Calf: 0.2 cm; Reflux: 0 ms Distal Calf: 0.2 cm; Reflux: 0 ms DUPLICATED MEDIAL GREAT SAPHENOUS VEIN: Diameter: None imaged Reflux: NA DUPLICATED LATERAL GREAT SAPHENOUS VEIN: Diameter: 0.2 cm. Reflux: NA SMALL SAPHENOUS VEIN: Saphenopopliteal Junction: 0.1 cm; Reflux: 0 ms Proximal: 0.2 cm; Reflux: 0 ms Distal: 0.1 cm; Reflux: 0 ms VEIN OF GIACOMINI: Size: 0.3 cm. Reflux: NA PERFORATORS: Location: Proximal to mid calf. Size: 0.1-0.2 cm. Reflux: NA VARICOSITIES: Location: None Imaged Size: NA Reflux: NA US/US venous duplex LE BI IMPRESSION: Right: No venous insufficiency. Perforators in the proximal to mid calf and distal posterior tibialis vein without reflux. Left: Reflux/venous insufficiency at the popliteal vein. Perforators in the proximal and mid calf without reflux. Electronically signed by: French Vance MD 03/24/2024 11:35 AM CE
--- OUTSIDE RECORDS SUMMARY | 2024-03-24 10:59 | XMS_ITS | Data Portability ---
Author Organization [facility], Main Office Address [address] [facility] [address] [facility] [place] [address] Care Team Providers Care Computer Aided Design Technician Name Role Phone ABDIEL ORTEGA [employer] Member GRACIELA MILLER Urologist ABDIEL LOZANO Master Craftsman [phone] URBAN PRIDE School Superintendent HUMBERTO SINGH Nursing Home Director [phone] RICARDO HUGHES Chiropractor [facility] Physical Therapist DENIS MARCOS Primary Care Provider Assessment No assessment recorded. Plan of Treatment Reminders Order Date Submit Date Provider Last Modified By Organization Details Last Modified Time Details Appointments None recorded. Lab HbA1c (hemoglob in A1c), blood 2018 019 K[facility], [address] [place], [address], 0 09:38:13 BMP, serum or plasma 2018 019 [facility], [address] [place], [address], 0 09:38:13 lipid panel, serum 2018 019 K[facility]cker [facility], [address] [place], [address], 0 09:38:13 magnesium , serum or plasma 2018 019 TIMOTHY [facility], [address] [place], [address], 9 15:24:53 CK (creatine kinase), total, serum 2018 019 TIMOTHY [facility], [address] [place], [address], 9 15:24:54 CBC w/ auto diff 2018 019 TIMOTHY [facility], [address] [place], [address], 9 13:55:52 CMP, serum or plasma 2018 019 TIMOTHY [facility], [address] [place], [address], 9 15:24:51 TSH, serum or plasma 2018 019 TIMOTHY [facility], [address] [place], [address], 9 15:37:23 lipid panel, serum 2017 018 TIMOTHY [facility], [address] [place], [address], 9 15:24:52 CMP, serum or plasma 2017 018 [facility], [address] [place], [address], 9 11:56:02 Referral spine center referral - patient in 2017, MRI showed crowding L2 nerve root on the left, having worsenign sx of sciatic pain, low back pain, leg pains bilateral ly. 2018 019 isaías [facility], [address] [place] [address], [id number], 9 17:23:40 physical therapist referral - At risk for falling 2017 018 [facility], [address], [place], [address], 8 16:26:43 urologist referral - pt has not seen urology in 2 years or more and wants to have consultat ion w/ urologist rather than DIRECTOR TRANSLATIONAL 2017 018 scott Crane MD, [address], [place], [address], 8 13:35:13 Procedures None recorded. Surgeries None recorded. Imaging XR, lumbar spine - chronic low back pain, worsening s/p fall in february [id number] 019 [facility], [address] [place] [address], [address], 9 10:29:46 XR, sacrum + coccyx - s/p fall in february, hx low back arthritis . pain worsening 2018 019 [facility], [address] [place] [address], [address], 9 10:29:44 Medication Orders clorazepa te dipotassi um 3.75 mg tablet 2017 018 INTERFACE [id number], [address] [place], [address], 8 11:18:58 tamsulosi n 0.4 mg capsule 2017 018 [id number], [address] [place], [address], 8 13:01:14 clorazepa te dipotassi um 3.75 mg tablet 2017 018 INTERFACE [id number], [address] [place], [address], 8 12:05:21 Patient TargetsNo targets recorded. Patient Instructions Encounter Date Encounter Id Patient Instructions Last Modified By Organization Details Last Modified Time 11/13/2017 [id number] anxiety disorder: care instructions [email or web address] Not available 11/13/2017 11:18:44 call or return for worsening or concerns. [email or web address] Not available 11/13/2017 11:13:19 I have reviewed the note and agree with the assessment and plan of care. [email or web address] Not available 11/13/2017 12:41:01 12/18/2017 [id number] preventing falls: care instructions [email or web address] Not available [...] medication. [email or web address] Not available 12/18/2017 13:20:44 06/11/2018 [id number] low back pain: exercises [email or web address] Not available 06/11/2018 13:24:20 call or return for worsening or concerns. [email or web address] Not available 06/11/2018 13:22:08 01/20/2019 [id number] preventing falls: care instructions [email or web address] Not available 01/20/2019 10:20:59 call or return for woraening or concerns. [email or web address] Not available 01/20/2019 10:20:56 Reviewed the risks and benefits of chcf opiate use, OUD discussed with the patient. Reviewed the risks and benefits of other non-opioid pain therapies. Reviewed caution with driving, fall risk, treatment for constipation. Patient verbalizes understanding of risk and benefits, and of OUD. [email or web address] Not available 01/20/2019 09:46:37 Reason for Referral Urologist Referral for Incom plete emptying of urinary bladder pt has not seen urology in 2 years or more and wants to have consultation w/ urologist rather than DIRECTOR TRANSLATIONAL Referring Physician: Ricardo Dhillon, Internal Medicine, Encounter [...] Available [facility] [address] [place], [address], 09/11/2017 22:27:42 09/12/19 18 09/11/2017 CBC w/ auto diff RBC 4.68 M/mm3 (4.20- 5.40) Not Available [facility] [address] [place], [address], 09/11/2017 22:27:42 09/12/19 18 09/11/2017 CBC w/ auto diff HGB 14.7 gm/dL (11.7- 15.5) Not Available [facility] [address] [place], [address], 09/11/2017 22:27:42 09/12/19 18 09/11/2017 CBC w/ auto diff HCT 43.2 % (35.7- 45.8) Not Available [facility] [address] [place], [address], 09/11/2017 22:27:42 09/12/19 18 09/11/2017 CBC w/ auto diff MCV 92.3 fL (80.0- 100.0) Not Available [facility] [address] [place], [address], 09/11/2017 22:27:42 09/12/19 18 09/11/2017 CBC w/ auto diff MCH 31.4 pg (27.0- 34.0) Not Available [facility] [address] [place], [address], 09/11/2017 22:27:42 09/12/19 18 09/11/2017 CBC w/ auto diff MCHC 34.0 g/dL (33.0- 37.0) Not Available [facility] [address] [place], [address], 09/11/2017 22:27:42 09/12/19 18 09/11/2017 CBC w/ auto diff plt 230 K/mm3 (150-4 60) Not Available [facility] [address] [place], [address], 09/11/2017 22:27:42 09/12/19 18 09/11/2017 CBC w/ auto diff RDW-SD 45.7 fL (<47.0 ) Not Available [facility] [address] [place], [address], 09/11/2017 22:27:42 09/12/19 18 09/11/2017 CBC w/ auto diff MPV 9.5 fL (9.4-1 2.4) Not Available [facility] [address] [place], [address], 09/11/2017 22:27:42 09/12/19 18 09/11/2017 CBC w/ auto diff automated NRBC 0.0 #/100 _WBC' s Not Available [facility] [address] [place], [address], 09/11/2017 22:27:42 09/12/19 18 09/11/2017 CBC w/ auto diff abs. NRBC 0.0 K/mm3 Not Available [facility] [address] [place], [address], 09/11/2017 22:27:42 09/12/19 18 09/11/2017 CBC w/ auto diff neut # 4.7 K/mm3 (1.3-7 .0) Not Available [facility] [address] [place], [address], 09/11/2017 22:27:42 09/12/19 18 09/11/2017 CBC w/ auto diff lymph # 1.4 K/mm3 (0.8-3 .1) Not Available [facility] [address] [place], [address], 09/11/2017 22:27:42 09/12/19 18 09/11/2017 CBC w/ auto diff mono# 0.9 K/mm3 (0.4-0 .9) Not Available [facility] [address] [place], [address], 09/11/2017 22:27:42 09/12/19 18 09/11/2017 CBC w/ auto diff eo # 0.2 K/mm3 (0.0-0 .4) Not Available [facility] [address] [place], [address], 09/11/2017 22:27:42 09/12/19 18 09/11/2017 CBC w/ auto diff baso # 0.1 K/mm3 (0.0-0 .1) Not Available [facility] [address] [place], [address], 09/11/2017 22:27:42 09/12/19 18 09/11/2017 CBC w/ auto diff abs. imm gran 0.0 K/mm3 Not Available [facility] [address] [place], [address], 09/11/2017 22:27:42 09/12/19 18 09/11/2017 CBC w/ auto diff neut 64.7 % (44-76 ) Not Available [facility] [address] [place], [address], 09/11/2017 22:27:42 09/12/19 18 09/11/2017 CBC w/ auto diff lymph 18.7 % (15-43 ) Not Available [facility] [address] [place], [address], 09/11/2017 22:27:42 09/12/19 18 09/11/2017 CBC w/ auto diff monocyte 12.6 % (4.5-1 0.5) high Not Available [facility] [address] [place], [address], 09/11/2017 22:27:42 09/12/19 18 09/11/2017 CBC w/ auto diff eo 2.5 % (0-6) Not Available [facility] [address], [address], 09/11/2017 22:27:42 09/12/19 18 09/11/2017 CBC w/ auto diff baso 1.2 % (0-2) Not Available [facility] [address], [address], 09/11/2017 22:27:42 09/12/19 18 09/11/2017 CBC w/ auto diff imm gran 0.3 % (0.0-0 .6) Not Available [facility] [address] [place], [address], 09/11/2017 22:27:42 09/12/19 18 09/11/2017 CMP, serum or plasm a glucose 104 mg/dL (70-99 ) high Not Available [facility] [address] [place], [address], 09/11/2017 23:29:56 09/12/19 18 09/11/2017 CMP, serum or plasm a BUN 11 mg/dL (8-23) Not Available [facility] [address] [place], [address], 09/11/2017 23:29:56 09/12/19 18 09/11/2017 CMP, serum or plasm a creatinine 0.8 mg/dL (0.5-1 .0) Not Available [facility] [address] [place], [address], 09/11/2017 23:29:56 09/12/19 18 09/11/2017 CMP, serum or plasm a sodium 134 mmol/ L (133-1 45) Not Available [facility] [address] [place], [address], 09/11/2017 23:29:56 09/12/19 18 09/11/2017 CMP, serum or plasm a potassium 4.6 mmol/ L (3.6-5 .2) Not Available [facility] [address] [place], [address], 09/11/2017 23:29:56 09/12/19 18 09/11/2017 CMP, serum or plasm a chloride 96 mmol/ L (98-10 7) low Not Available [facility] [address], [address], 09/11/2017 23:29:56 09/12/19 18 09/11/2017 CMP, serum or plasm a bicarbonate 23 mmol/ L (22-29 ) Not Available [facility] [address], [address], 09/11/2017 23:29:56 09/12/19 18 09/11/2017 CMP, serum or plasm a anion gap 15 (4-17) Not Available [facility] [address], [address], 09/11/2017 23:29:56 09/12/19 18 09/11/2017 CMP, serum or plasm a albumin 4.1 gm/dL (3.4-4 .8) Not Available [facility] [address], [address], 09/11/2017 23:29:56 09/12/19 18 09/11/2017 CMP, serum or plasm a calcium 9.3 mg/dL (8.6-1 0.5) Not Available [facility] [address], [address], 09/11/2017 23:29:56 09/12/1909/11/2017 CMP, serum or plasm a bilirubin,to della 0.4 mg/dL (0-1.2 ) Not Available [facility] [address], [address], 09/11/2017 23:29:56 09/12/19 18 09/11/2017 CMP, serum or plasm a total protein 6.6 gm/dL (6.2-8 .2) Not Available [facility] [address] [place], [address], 09/11/2017 23:29:56 09/12/19 18 09/11/2017 CMP, serum or plasm a Ag ratio 1.6 Not Available [facility] [address] [place], [address], 09/11/2017 23:29:56 09/12/19 18 09/11/2017 CMP, serum or plasm a AST 24 U/L (0-32) Not Available [facility] [address] [place], [address], 09/11/2017 23:29:56 09/12/19 18 09/11/2017 CMP, serum or plasm a alk phos 104 U/L (35-10 4) Not Available [facility] [address] [place], [address], 09/11/2017 23:29:56 09/12/19 18 09/11/2017 CMP, serum or plasm a ALT 22 U/L (0-33) Not Available [facility] [address] [place], [address], 09/11/2017 23:29:56 09/12/19 18 09/11/2017 CMP, serum [...] Available [facility] [address] [place], [address], 09/11/2017 23:29:56 09/12/19 18 09/11/2017 CMP, serum [...] Afric an Ameri cans. Not Available [facility] [address] [place], [address], 09/11/2017 23:29:56 09/12/19 18 09/11/2017 magne sium, serum or plasm a magnesium 1.6 mEq/L (1.3-1 .9) Not Available [facility] [address] [place], [address], 09/11/2017 23:29:57 06/15/1906/14/2018 CBC w/ auto diff WBC 7.5 K/mm3 (4.0-1 1.0) Not Available [facility] [address] [place], [address], 06/14/2018 13:55:52 06/15/1906/14/2018 CBC w/ auto diff RBC 4.66 M/mm3 (4.20- 5.40) Not Available [facility] [address] [place], [address], 06/14/2018 13:55:52 06/15/1906/14/2018 CBC w/ auto diff HGB 15.3 gm/dL (11.7- 15.5) Not Available [facility] [address] [place], [address], 06/14/2018 13:55:52 06/15/1906/14/2018 CBC w/ auto diff HCT 43.9 % (35.7- 45.8) Not Available [facility] [address] [place], [address], 06/14/2018 13:55:52 06/15/1906/14/2018 CBC w/ auto diff MCV 94.2 fL (80.0- 100.0) Not Available [facility] [address] [place], [address], 06/14/2018 13:55:52 06/15/1906/14/2018 CBC w/ auto diff MCH 32.8 pg (27.0- 34.0) Not Available [facility] [address] [place], [address], 06/14/2018 13:55:52 06/15/1906/14/2018 CBC w/ auto diff MCHC 34.9 g/dL (33.0- 37.0) Not Available [facility] [address] [place], [address], 06/14/2018 13:55:52 06/15/1906/14/2018 CBC w/ auto diff plt 256 K/mm3 (150-4 60) Not Available [facility] [address] [place], [address], 06/14/2018 13:55:52 06/15/1906/14/2018 CBC w/ auto diff RDW-SD 43.2 fL (<47.0 ) Not Available [facility] [address] [place], [address], 06/14/2018 13:55:52 06/15/1906/14/2018 CBC w/ auto diff MPV 9.9 fL (9.4-1 2.4) Not Available [facility] [address] [place], [address], 06/14/2018 13:55:52 06/15/1906/14/2018 CBC w/ auto diff automated NRBC 0.0 #/100 _WBC' s Not Available [facility] [address] [place], [address], 06/14/2018 13:55:52 06/15/1906/14/2018 CBC w/ auto diff abs. NRBC 0.0 K/mm3 Not Available [facility] [address] [place], [address], 06/14/2018 13:55:52 06/15/1906/14/2018 CMP, serum or plasm a glucose 125 mg/dL (70-99 ) high Not Available [facility] [address] [place], [address], 06/14/2018 15:24:51 06/15/1906/14/2018 CMP, serum or plasm a BUN 8 mg/dL (8-23) Not Available [facility] [address] [place], [address], 06/14/2018 15:24:51 06/15/1906/14/2018 CMP, serum or plasm a creatinine 0.8 mg/dL (0.5-1 .0) Not Available [facility] [address] [place], [address], 06/14/2018 15:24:51 06/15/1906/14/2018 CMP, serum or plasm a sodium 134 mmol/ L (133-1 45) Not Available [facility] [address] [place], [address], 06/14/2018 15:24:51 06/15/1906/14/2018 CMP, serum or plasm a potassium 4.6 mmol/ L (3.6-5 .2) Not Available [facility] [address] [place], [address], 06/14/2018 15:24:51 06/15/1906/14/2018 CMP, serum or plasm a chloride 98 mmol/ L (98-10 7) Not Available [facility] [address] [place], [address], 06/14/2018 15:24:51 06/15/1906/14/2018 CMP, serum or plasm a bicarbonate 23 mmol/ L (22-29 ) Not Available [facility] [address] [place], [address], 06/14/2018 15:24:51 06/15/19 19 06/14/2018 CMP, serum or plasm a anion gap 13 (4-17) Not Available [facility] [address] [place], [address], 06/14/2018 15:24:51 06/15/19 19 06/14/2018 CMP, serum or plasm a albumin 4.5 gm/dL (3.4-4 .8) Not Available [facility] [address] [place], [address], 06/14/2018 15:24:51 06/15/19 19 06/14/2018 CMP, serum or plasm a calcium 9.5 mg/dL (8.6-1 0.5) Not Available [facility] [address] [place], [address], 06/14/2018 15:24:51 06/15/19 19 06/14/2018 CMP, serum or plasm a bilirubin,to della 0.5 mg/dL (0-1.2 ) Not Available [facility] [address] [place], [address], 06/14/2018 15:24:51 06/15/19 19 06/14/2018 CMP, serum or plasm a total protein 7.0 gm/dL (6.2-8 .2) Not Available [facility] [address] [place], [address], 06/14/2018 15:24:51 06/15/19 19 06/14/2018 CMP, serum or plasm a Ag ratio 1.8 Not Available [facility] [address] [place], [address], 06/14/2018 15:24:51 06/15/19 19 06/14/2018 CMP, serum or plasm a AST 28 U/L (0-32) Not Available [facility] [address] [place], [address], 06/14/2018 15:24:51 06/15/19 19 06/14/2018 CMP, serum or plasm a alk phos 105 U/L (35-10 4) high Not Available [facility] [address] [place], [address], 06/14/2018 15:24:51 06/15/19 19 06/14/2018 CMP, serum or plasm a ALT 27 U/L (0-33) Not Available [facility] [address] [place], [address], 06/14/2018 15:24:51 06/15/19 19 06/14/2018 CMP, serum [...] Available [facility] [address] [place], [address], 06/14/2018 15:24:51 06/15/19 19 06/14/2018 CMP, serum [...] Available [facility] [address] [place], [address], 06/14/2018 15:24:51 06/15/1906/14/2018 lipid panel , serum cholesterol, total 192 mg/dL (<200) Not Available [facility] [address] [place], [address], 06/14/2018 15:24:52 06/15/1906/14/2018 lipid panel , serum triglyceride 190 mg/dL (<150) high Not Available [facility] [address] [place], [address], 06/14/2018 15:24:52 06/15/1906/14/2018 lipid panel , serum HDL chol 59 mg/dL (>39) Not Available [facility] [address] [place], [address], 06/14/2018 15:24:52 06/15/1906/14/2018 lipid panel , serum LDL cholesterol, calculated 95 mg/dL (0-130 ) Not Available [facility] [address] [place], [address], 06/14/2018 15:24:52 06/15/1906/14/2018 lipid panel , serum non HDL cholesterol (calc) 133 mg/dL (<160) Not Available [facility] [address] [place], [address], 06/14/2018 15:24:52 06/15/1906/14/2018 magne sium, serum or [...] Available [facility] [address] [place], [address], 06/14/2018 15:24:53 06/15/19 19 06/14/2018 CK (raymond lincoln), total , serum CK,total only 75 U/L (0-190 ) Not Available [facility] [address] [place], [address], 06/14/2018 15:24:54 06/15/19 19 06/14/2018 TSH, serum or plasm a TSH 0.89 mIU/m L (0.40- 4.00) Not Available [facility] [address] [place], [address], 06/14/2018 15:37:23 05/16/19 18 elect rocar diogr [...] ce of an acute proces s. WSN: [id number] Dictat ed By: Delonte Barrios MD Dictat ed Date/T erlinda: 10:26 a Review ed By: Delonte Barrios MD Signed By: Delonte Barrios MD Signed Date/T erlinda: 10:26 am Transc ribed By: CSB Transc ribed Date/T erlinda: 10:24 am Patien t Class: Outpat [facility] (Outpt Imaging) [address] [place], [address], 06/15/2018 15:07:23 06/15/19 19 06/14/2018 XR, lumba [...] ce of an acute proces s. WSN: [id number] Dictat ed By: Delonte Barrios MD Dictat ed Date/T erlinda: 10:26 a Review ed By: Delonte Barrios MD Signed By: Delonte Barrios MD Signed Date/T erlinda: 10:26 am Transc ribed By: PASTORA Transc ribed Date/T erlinda: 10:24 am Patien t Class: Outpat ient [facility] (Outpt Imaging) [address] [place], [address], 06/15/2018 15:07:23 Result Notes None recorded. Problems Name Problem SNOMED Code Status Onset Date Resolution Date Notes Provider Name and Address Organization Details Recorded Time Anemia due to chronic blood loss 494618714 Completed 201108/23/2013 RECORDED 10/31/19 12 2:42PM BY NICKY WOODS ON/ADDEN TORIE rosario [facility] 6 11:38:21 Anxiety state 065090546 Active 2012 Becky Norton MA null, [facility] 7 17:00:55 Tobacco user [id number] Completed 201208/23/2013 RECORDED 01/28/20 13 1:17PM BY ALEXANDRE AGUILAR MA, ANNOTATI ON/ADDEN DUM Becky Norton MA null, [facility] 7 17:00:35 History of clinical finding in subject [id number] Completed 201209/17/2016 RECORDED 01/28/20 13 1:17PM BY ALEXANDRE AGUILAR MA, ANNOTATI ON/ADDEN DUM Becky Norton MA null, [facility] 7 17:01:11 Asthma 105327349 Active 2012 Becky Norton MA null, [facility] 7 17:00:52 Screenin g for malignan t neoplasm of breast Completed 201410/31/2016 Dr. Susy Ortega, negative Becky Norton MA null, [facility] 7 13:35:13 Screenin g for malignan t neoplasm of breast Completed 201108/23/2013 RECORDED 10/31/19 12 2:41PM BY JEREL WOODSATI ON/ADDEN DUM Becky Norton MA null, [facility] 7 13:35:13 Chest pain [id number] Completed 201108/23/2013 RECORDED 10/31/19 12 2:41PM BY JEREL WOODSATI ON/ADDEN DUM Michelle Degutis null, [facility] 6 11:38:22 Screenin g for malignan t neoplasm of colon Completed 201208/23/2013 RECORDED 04/30/19 13 2:37PM BY TEA HANDY MA, ANNOTATI ON/ADDEN DUM Michelle Degutis null, [facility] 6 11:38:22 Divertic ular disease of colon 060617134 Completed 201108/23/2013 STORY: PT WAS SEEN IN OUR OFFICE 11/30/09 FOR RECTAL BLEEDING AND WAS REFERRED TO GI FOR AN EVALUATI ON. THAT EVENING EVERY TIME THE PT ATE SOMETHIN G SHE WOULD BE GOING TO THE BATHROOM TO HAVE A BM THAT WAS FILLED WITH BLOOD. AFTER A FEW TIMES THE PT TOOK HERSELF TO [facility] TO BE EVALUATE D. THE ONLY SX THAT THE PT FELT WAS BLOATING AND CRAMPING EVERYTIM E SHE ATE. PT HAD TO UNDERGO A COLONOSC OPY WITCH SHOWED THAT THE PT HAD BLEEDING COMING FROM THE ASCENDIN G,DESCEN DING, AND TRANSVER SE COLON. PT WAS LATER TRANSFER RED TO [facility] TO BE WATCHED CLOSELY. PT WAS THEN PLACED ON A LIQUID DIET UNTIL THE TIME WHERE SHE COULD TOLERATE SOLID FOOD WITH OUT PASSING A BM THAT WAS BLOODY. MEDICATI ON HAS BEEN RECONSIL ED WITH THE PT AND SHE WILL F/U WITH MGD 12/21/09 .; RECORDED 10/31/19 12 2:41PM BY NICKY WOODS ON/ADDEN DUM [place] Aziza rosario [facility] 6 11:38:21 Hemorrha ge of colon 61974814 Completed 201108/23/2013 STORY: STABLE/ STILL ANEMIC; RECORDED 10/31/19 12 2:41PM BY NICKY WOODS ON/ADDEN DUM Michelle Aziza rosario [facility] [place] 6 11:38:22 Divertic ulitis of colon 473252303 Active 2011 Becky rosario [facility] [place] 7 17:00:37 Dysuria 18407755 Completed 201108/23/2013 IMPRESSI ON: 3+ LEUKOCYT ES ON UA TODAY, COMPLETE D BACTRIM 2 DAYS AGO, START CIPRO AND SEND CULTURE; RECORDED 10/31/19 12 2:41PM BY NICKY WOODS ON/ADDEN DUM Becky rosario [facility] [place] 7 17:01:13 Gastroes ophageal reflux disease 507849404 Active 2012 Becky rosario, [facility] 7 17:00:59 [facility] l hyperten julisa 76694864 Active 2012 Becky rosario, [facility] 7 17:01:17 Essentia l hyperten julisa 69759711 Completed 201108/23/2013 RECORDED 10/31/19 12 2:41PM BY JEREL WOODSATI ON/ADDEN DUM Becky rosario, [facility] 7 17:01:17 External hemorrho ids 93060739 Active 2012 Becky rosario, [facility] 7 17:01:03 Influenz a vaccine needed [id number] 06 Completed 201208/23/2013 RECORDED 04/30/19 13 2:37PM BY TEA HNADY MA, ANNOTATI ON/ADDEN DUM Michelle Aziza [facility] 6 11:38:22 Follow-u p encounte r Completed 201208/23/2013 RECORDED 04/30/19 13 2:37PM BY TEA HANDY MA, ANNOTATI ON/[facility] 6 11:38:22 Tobacco user 655972557 Active 2012 Becky rosario [facility] 7 17:00:35 Adult health examinat ion Completed 201209/17/2016 STORY: COLONOSC OPY DUE 2016/ SS/TUBUL AR ADENOMA; RECORDED 01/28/20 13 1:58PM BY RICARDO COLE MD, OFFICE VISIT Becky rosario [facility] 7 17:01:05 Adult health examinat ion Completed 201208/23/2013 RECORDED 04/30/19 13 2:37PM BY TEA HANDY MA, ANNOTATI ON/ADDEN DUM Becky rosario [facility] 7 17:01:05 Hearing loss 56455904 Active 2012 Becky rosario [facility] 7 17:00:40 History of Malignan t melanoma 586542797 Active 2013 Becky rosario [facility] 7 17:00:45 Hypo-osm olality and or hyponatr emia [id number] Completed 201108/23/2013 RECORDED 10/31/19 12 2:41PM BY VIOLA MOLINA I ANNOTATI ON/ADDEN DUM Michelle Antoniohermelindaedouard [facility] 6 11:38:21 Impacted cerumen [id number] Completed 201208/23/2013 RECORDED 01/28/20 13 1:17PM BY ALEXANDRE AGUILAR MA, ANNOTATI ON/ADDEN DUM Becky rosario [facility] 7 17:00:46 Irritabl e bowel syndrome [id number] Active 2012 Becky rosario [facility] 7 17:00:31 Renewal of prescrip tion Completed 201208/23/2013 RECORDED 04/30/19 13 2:37PM BY TEA HANDY MA, ANNOTATI ON/ADDEN DUM Michelle Ervin [facility] 6 11:38:22 Malignan t melanoma of skin [id number] Active 2013 Becky rosario [facility] 7 17:01:28 Active or passive immuniza tion Completed 200908/23/2013 RECORDED 03/01/19 10 9:56AM BY PILLO Masters NP, OFFICE VISIT Michelle Antoniousha abraham [facility] 6 11:38:22 Examinat ion for suspecte d mental disorder Completed 201108/23/2013 RECORDED 10/31/19 12 2:41PM BY NICKY WOODS ON/[facility] null, [facility] 6 11:38:22 Pre-surg girish evaluati on Completed 201208/23/2013 IMPRESSI ON: PT IS MEDICALL Y ABLE TO UNDERGO SURGERY, NO ACTIVE ISSUES, IS ABLE TO LAY FLAT AND STILL, EKG NL AND WILL GET LABS; RECORDED 01/28/20 13 1:17PM BY ALEXANDRE AGUILAR MA, ANNOTATI ON/[facility] null, [facility] 6 11:38:22 Tachycar wesley [id number] Completed 201108/23/2013 RECORDED 10/31/19 12 2:42PM BY NICKY WOODS ON/[facility] Degutis null, [facility] 6 11:38:22 Retentio n of urine 413920858 Completed 201208/23/2013 RECORDED 04/30/19 13 2:37PM BY TEA HANDY MA, ANNOTATI ON/[facility] Degutis null, [facility] 6 11:38:22 Urinary tract infectio us disease 32004844 Active 2013 Becky rosario, [facility] 7 17:01:20 Vaginiti s and vulvovag initis Completed 201108/23/2013 IMPRESSI ON: VAGINAL ITCHING AFTER COMPLETI NG ANTIBIOT ICS; RECORDED 10/31/19 12 2:42PM BY NICKY WOODS ON/[facility] Degutis null, [facility] 6 11:38:22 Impacted cerumen 76676921 Completed 09/17/2016 Becky rosario, [facility] 7 17:00:46 Hyponatr emia 99560194 Completed 09/04/2017 Dilshad Hall MD [address] [address], [facility] [place], [address] , [facility] 8 06:00:03 Anemia due to chronic blood loss 438291897 Completed 201109/15/2013 RECORDED 10/31/19 12 2:42PM BY VIOLA MOLINA I ANNOTATI ON/ADDEN DUM Michelle Degutis null, [facility] 6 11:38:21 Tobacco user [id number] Completed 201209/15/2013 RECORDED 01/28/20 13 1:17PM BY ALEXANDRE AGUILAR MA, ANNOTATI ON/ADDEN DUM Becky Norton MA null, [facility] 7 17:00:35 Chest pain 59529223 Completed 201109/15/2013 RECORDED 10/31/19 12 2:41PM BY VIOLA MOLINA I ANNOTATI ON/ADDEN DUM Michelle Degutis null, [facility] 6 11:38:22 Screenin g for malignan t neoplasm of colon Completed 201209/15/2013 RECORDED 04/30/19 13 2:37PM BY TEA HANDY MA, ANNOTATI ON/ADDEN DUM Michelle Degutis null, [facility] 6 11:38:22 Divertic ular disease of colon 089666407 Completed 201109/15/2013 STORY: PT WAS SEEN IN OUR OFFICE 11/30/09 FOR RECTAL BLEEDING AND WAS REFERRED TO GI FOR AN EVALUATI ON. THAT EVENING EVERY TIME THE PT ATE SOMETHIN G SHE WOULD BE GOING TO THE BATHROOM TO HAVE A BM THAT WAS FILLED WITH BLOOD. AFTER A FEW TIMES THE PT TOOK HERSELF TO [facility] TO BE EVALUATE D. THE ONLY SX THAT THE PT FELT WAS BLOATING AND CRAMPING EVERYTIM E SHE ATE. PT HAD TO UNDERGO A COLONOSC OPY PATITO SHOWED THAT THE PT HAD BLEEDING COMING FROM THE ASCEND[place] G,DESCEN DING, AND TRANSVER SE COLON. PT WAS LATER TRANSFER RED TO [facility] TO BE WATCHED CLOSELY. PT WAS THEN PLACED ON A LIQUID DIET UNTIL THE TIME WHERE SHE COULD TOLERATE SOLID FOOD WITH OUT PASSING A BM THAT WAS BLOODY. MEDICATI ON HAS BEEN RECONSIL ED WITH THE PT AND SHE WILL F/U WITH MGD 12/21/09 .; RECORDED 10/31/19 12 2:41PM BY NICKY WOODS ON/ADDEN DUM Michelle Palmaedouard rosario [facility] 6 11:38:21 Hemorrha ge of colon 87651237 Completed 201109/15/2013 STORY: STABLE/ STILL ANEMIC; RECORDED 10/31/19 12 2:41PM BY NICKY WOODS ON/ADDEN DUM Michelle Antonioutis null, [facility] 6 11:38:22 Dysuria 48715106 Completed 201109/15/2013 IMPRESSI ON: 3+ LEUKOCYT ES ON UA TODAY, COMPLETE D BACTRIM 2 DAYS AGO, START CIPRO AND SEND CULTURE; RECORDED 10/31/19 12 2:41PM BY NICKY WOODS ON/ADDEN DUM Becky Norton [place] abraham [facility] 7 17:01:13 Influenz a vaccine needed [id number] 06 Completed 201209/15/2013 RECORDED 04/30/19 13 2:37PM BY TEA HANDY MA, ANNOTATI ON/ADDEN DUM Michelle Ervin abraham, [facility] 6 11:38:22 Follow-u p encounte r Completed 201209/15/2013 RECORDED 04/30/19 13 2:37PM BY TEA HANDY MA, ANNOTATI ON/ADDEN DUM Michelle Antoniousha rosario, [facility] 6 11:38:22 Hypo-osm olality and or hyponatr emia 443393349 Completed 201109/15/2013 RECORDED 10/31/19 12 2:41PM BY NICKY WOODS ON/ADDEN DUM Michelle Antonioutis null, [facility] 6 11:38:21 Impacted cerumen 13826727 Completed 201209/15/2013 RECORDED 01/28/20 13 1:17PM BY ALEXANDRE AGUILAR MA, ANNOTATI ON/ADDEN DUM Becky Norton MA null, [facility] 7 17:00:46 Renewal of prescrip tion Completed 201209/15/2013 RECORDED 04/30/19 13 2:37PM BY TEA HANDY MA, JERELATI ON/ADDEN DUM Michelle Degutis null, [facility] 6 11:38:22 Active or passive immuniza tion Completed 200909/15/2013 RECORDED 03/01/19 10 9:56AM BY PILLO Masters NP, OFFICE VISIT Michelle Pacoutis null, [facility] 6 11:38:22 Examinat ion for suspecte d mental disorder Completed 201109/15/2013 RECORDED 10/31/19 12 2:41PM BY NICKY WOODS ON/[facility] DUM Michelle Degutis null, [facility] 6 11:38:22 Pre-surg girish evaluati on Completed 201209/15/2013 IMPRESSI ON: PT IS MEDICALL Y ABLE TO UNDERGO SURGERY, NO ACTIVE ISSUES, IS ABLE TO LAY FLAT AND STILL, EKG NL AND WILL GET LABS; RECORDED 01/28/20 13 1:17PM BY ALEXANDRE AGUILAR MA, JERELATI ON/[facility] DUM Michelle Degutis null, [facility] 6 11:38:22 Tachycar wesley 5288877 Completed 201109/15/2013 RECORDED 10/31/19 12 2:42PM BY JEREL WOODSATI ON/ADDEN DUM Michelle Degutis null, [facility] 6 11:38:22 Retentio n of urine 861611133 Completed 201209/15/2013 RECORDED 04/30/19 13 2:37PM BY TEA HANDY MA, ANNOTATI ON/ADDEN DUM Michelle Degutis null, [facility] 6 11:38:22 Vaginiti s and vulvovag initis Completed 201109/15/2013 IMPRESSI ON: VAGINAL ITCHING AFTER COMPLETI NG ANTIBIOT ICS; RECORDED 10/31/19 12 2:42PM BY NICKY WOODS ON/ADDEN DUM Michelle Degutis null, [facility] 6 11:38:22 Anemia due to chronic blood loss 483306306 Completed 201109/16/2013 RECORDED 10/31/19 12 2:42PM BY JEREL WOODSATI ON/ADDEN DUM Michelle Degutis null, [facility] 6 11:38:21 Tobacco user [id number] Completed 201209/16/2013 RECORDED 01/28/20 13 1:17PM BY ALEXANDRE AGUILAR MA, ANNOTATI ON/ADDEN DUM Becky Norton MA null, [facility] 7 17:00:35 Chest pain 20434577 Completed 201109/16/2013 RECORDED 10/31/19 12 2:41PM BY JEREL WOODSATI ON/ADDEN DUM Michelle Degutis null, [facility] 6 11:38:22 Screenin g for malignan t neoplasm of colon Completed 201209/16/2013 RECORDED 04/30/19 13 2:37PM BY TEA HANDY MA, JERELATI ON/ADDEN DUM Michelle Degutis null, [facility] 6 11:38:22 Divertic ular disease of colon 856913245 Completed 201109/16/2013 STORY: PT WAS SEEN IN OUR OFFICE 11/30/09 FOR RECTAL BLEEDING AND WAS REFERRED TO GI FOR AN EVALUATI ON. THAT EVENING EVERY TIME THE PT ATE SOMETHIN G SHE WOULD BE GOING TO THE BATHROOM TO HAVE A BM THAT WAS FILLED WITH BLOOD. AFTER A FEW TIMES THE PT TOOK HERSELF TO [facility] TO BE EVALUATE D. THE ONLY SX THAT THE PT FELT WAS BLOATING AND CRAMPING EVERYTIM E SHE ATE. PT HAD TO UNDERGO A COLONOSC OPY WITCH SHOWED THAT THE PT HAD BLEEDING COMING FROM THE [place]END[place] G,DESCEN DING, AND TRANSVER SE COLON. PT WAS LATER TRANSFER RED TO [facility] TO BE WATCHED CLOSELY. PT WAS THEN PLACED ON A LIQUID DIET UNTIL THE TIME WHERE SHE COULD TOLERATE SOLID FOOD WITH OUT PASSING A BM THAT WAS BLOODY. MEDICATI ON HAS BEEN RECONSIL ED WITH THE PT AND SHE WILL F/U WITH MGD 12/21/09 .; RECORDED 10/31/19 12 2:41PM BY NICKY WOODS ON/ADDEN DUM Michelle Antonioutedouard rosario [facility] 6 11:38:21 Hemorrha ge of colon 83815943 Completed 201109/16/2013 STORY: STABLE/ STILL ANEMIC; RECORDED 10/31/19 12 2:41PM BY NICKY WOODS ON/ADDEN DUM Michelle Antonioutedouard rosario [facility] 6 11:38:22 Dysuria 74072105 Completed 201109/16/2013 IMPRESSI ON: 3+ LEUKOCYT ES ON UA TODAY, COMPLETE D BACTRIM 2 DAYS AGO, START CIPRO AND SEND CULTURE; RECORDED 10/31/19 12 2:41PM BY NICKY WOODS ON/ADDEN TORIE rosario [facility] 7 17:01:13 Influenz a vaccine needed [id number] 06 Completed 201209/16/2013 RECORDED 04/30/19 13 2:37PM BY TEA HANDY MA, ANNOTATI ON/ADDEN DUM Michelle rosario [facility] 6 11:38:22 Follow-u p encounte r Completed 201209/16/2013 RECORDED 04/30/19 13 2:37PM BY TEA HANDY MA, ANNOTATI ON/ADDEN DUM Michelle rosario [facility] 6 11:38:22 Hypo-osm olality and or hyponatr emia 293561078 Completed 201109/16/2013 RECORDED 10/31/19 12 2:41PM BY NICKY WOODS/CHARLIE DUM Michelle Degutis null, [facility] 6 11:38:21 Impacted odilia 79361713 Completed 201209/16/2013 RECORDED 01/28/20 13 1:17PM BY ALEXANDRE AGUILAR MA, ANNOTATI ON/ADDEN DUM Becky Cierra GALLAGHER null, [facility] 7 17:00:46 Renewal of prescrip tion Completed 201209/16/2013 RECORDED 04/30/19 13 2:37PM BY TEA HANDY MA, JERELATI ON/ADDEN DUM Michlele Degutis null, [facility] 6 11:38:22 Active or passive immuniza tion Completed 200909/16/2013 RECORDED 03/01/19 10 9:56AM BY PILLO Masters NP, OFFICE VISIT [place] Pacoutis null, [facility] 6 11:38:22 Examinat ion for suspecte d mental disorder Completed 201109/16/2013 RECORDED 10/31/19 12 2:41PM BY NICKY WOODS ON/[facility] TORIE Michelle Degutis null, [facility] 6 11:38:22 Pre-surg girish evaluati on Completed 201209/16/2013 IMPRESSI ON: PT IS MEDICALL Y ABLE TO UNDERGO SURGERY, NO ACTIVE ISSUES, IS ABLE TO LAY FLAT AND STILL, EKG NL AND WILL GET LABS; RECORDED 01/28/20 13 1:17PM BY ALEXANDRE AGUILAR MA, NICKY ON/ADDEN DUM Michelle Degutis null, [facility] 6 11:38:22 Tachycar wesley [id number] Completed 201109/16/2013 RECORDED 10/31/19 12 2:42PM BY NICKY WOODS ON/ADDEN DUM Michelle Degutis null, [facility] 6 11:38:22 Retentio n of urine 582163683 Completed 201209/16/2013 RECORDED 04/30/19 13 2:37PM BY TEA HANDY MA, ANNOTATI ON/ADDEN DUM Michelle Ervin abraham [facility] 6 11:38:22 Vaginiti s and vulvovag initis Completed 201109/16/2013 IMPRESSI ON: VAGINAL ITCHING AFTER COMPLETI NG ANTIBIOT ICS; RECORDED 10/31/19 12 2:42PM BY NICKY WOODS ON/ADDEN DUM Michelle Ervin abraham [facility] 6 11:38:22 Dermatit is Completed 09/17/2016 Becky rosario [facility] 7 17:00:48 Dysuria 12545495 Completed 09/17/2016 Becky rosario [facility] 7 17:01:13 Insomnia 862028781 Active [place] Pacohermelindaedouard abraham [facility] 6 11:38:21 Advance directiv e discusse d with patient 956887998 Completed 09/17/2016 Becky rosario [facility] 7 17:01:07 Polyp of colon 23553771 Active [place] Aziza abraham [facility] 6 11:38:21 Chronic low back pain 966249358 Active 2018 Rebeca rosario [facility] 9 14:22:51 Problem Notes None recorded. Procedures Surgical History Date Name Laterality Status Provider Name and Address Organization Details Recorded Time 01/21/20 19 Mini-Cog Test completed Leila Julien MA [facility] 01/20/2019 09:52:44 12/30/19 18 Most Recent Mammogram completed Leila Julien MA [facility] 01/20/2019 09:47:42 12/19/19 18 Mini-Cog Test completed Naheed Veliz [facility] 12/18/2017 13:13:25 12/02/19 17 Fall Risk Assessment completed Becky Norton MA [facility] 12/01/2016 13:22:35 12/02/19 17 Mini-Cog Test completed Beckybridger Norton MA [facility] 12/01/2016 13:23:31 11/29/19 17 Mammogram both breasts completed Kimmy Yañez [facility] 12/09/2016 14:44:18 10/17/19 17 Date of Last Colonoscopy completed Paola Whittakera [facility] 12/09/2016 16:54:35 10/17/19 17 Colonoscopy completed Beckybridger [facility] 10/24/2016 11:43:36 03/23/19 16 Fall Risk Assessment completed Beckybridger [facility] 03/23/2015 13:55:01 03/23/19 16 Mini-Cog Test completed [facility] 03/23/2015 14:02:26 03/23/19 16 Advanced Care Planning completed Beckybridger [facility] 03/23/2015 13:41:44 08/19/19 15 Date of Last Pap Smear completed Michelle Ervin [facility] 03/28/2015 11:40:33 02/23/19 11 Most Recent Bone Density completed Beckybridger [facility] 03/23/2015 14:07:39 02/09/19 08 Appendectomy completed Tea Handy [facility] 03/02/2014 10:46:37 Imaging Results Imaging Date Name Status LastModified by Organization Details LastModified Time 05/15/2017 electrocardiogram completed Infor mation not available 05/15/2017 12:36:53 06/14/2018 XR, sacrum + coccyx, 2 or more view active [facility] ([facility] [address] [place], [address], 06/15/2018 15:07:23 06/14/2018 XR, lumbar spine active [facility] ([facility]) [address] [place], [address], 06/15/2018 15:07:23 Procedure Notes None recorded. Medical Equipment None Reported. Allergies Allergen ID Allergen Name Allergen Category Reaction Reaction Severity Criticality Documentation Date Start Date Code Code System Note Provider Name and Address Organization Details Recorded Time 2935 latex environme nt,medica tion rash Not available Not available 08/23/20132012 94907 91 RxNorm [facility] [place] [...] 19,400 unit/0.65 mL subcutane ous suspensio n BROKC X 1 10/31 completed RECORDED 11/03/19 12 [...] Updated DateTime 8 154.94 cm 31.4 kg/m2 70269.4 3 g 98.7 [degF] 96 % 96 % 89 /min 118 mm[Hg] 76 mm[Hg] Becky Norton MA [facility] 8 11:28:28 Date Recorded Body height Body mass index (BMI) Body weight Heart rate Oxygen saturation Oxygen saturation in Arterial blood by Pulse oximetry Body temperature Systolic blood pressure Diastolic blood pressure Provider Name and Address Organization Details Last Updated DateTime 8 154.94 cm 30.8 kg/m2 59188.5 6 g 94 /min 97 % 97 % 97.5 [degF] 136 mm[Hg] 74 mm[Hg] Viola Medina [facility] 8 10:41:30 Date Recorded Body height Body mass index (BMI) Body weight Body temperature Heart rate Oxygen saturation Oxygen saturation in Arterial blood by Pulse oximetry Systolic blood pressure Diastolic blood pressure Provider Name and Address Organization Details Last Updated DateTime 8 154.94 cm 30.5 kg/m2 08518.4 7 g 97.2 [degF] 86 /min 96 % 96 % 123 mm[Hg] 72 mm[Hg] Naheed Winnignacia [facility] 8 12:57:56 Date Recorded Body height Body mass index (BMI) Body weight Heart rate Oxygen saturation Oxygen saturation in Arterial blood by Pulse oximetry Body temperature Systolic blood pressure Diastolic blood pressure Provider Name and Address Organization Details Last Updated DateTime 9 154.94 cm 30.2 kg/m2 26124.7 8 g 92 /min 96 % 96 % 98.4 [degF] 124 mm[Hg] 78 mm[Hg] Ruby Garciau [facility] 9 12:59:19 Date Recorded Body height Body mass index (BMI) Body weight Oxygen saturation Oxygen saturation in Arterial blood by Pulse oximetry Heart rate Body temperature Systolic blood pressure Diastolic blood pressure Provider Name and Address Organization Details Last Updated DateTime 9 154.94 cm 30.7 kg/m2 66394.0 6 g 96 % 96 % 81 /min 98.1 [degF] 119 mm[Hg] 67 mm[Hg] Leila Julien MA [facility] 9 09:56:35 Social History Question Answer Notes LastModified by Organizat ion Details LastModified Time Tobacco Smoking Status [facility] 09/08/2013 11:26:06 Do You Have An [...] available 01/20/2019 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 Never Used Smokeless Tobacco [email or web address] Information not available 01/20/2019 How Much Tobacco [...] virus, quadrivalent, PF 5 completed Becky rosario [facility] 03/23/2015 14:06:48 Influenza, high-dose, trivalent, PF 7 completed Not Available [facility] 02/26/2019 02:22:21 Novel [id number], all formulations 0 completed Not Available [facility] 08/23/2013 13:38:52 pneumococcal polysaccharide PPV23 0 completed Not Available [facility] 08/23/2013 13:38:52 Influenza, split virus, trivalent, preservative 0 completed Not Available [facility] 08/23/2013 13:38:52 Influenza, split virus, trivalent, preservative 1 completed Not Available [facility] 08/23/2013 13:38:52 Influenza, split virus, trivalent, preservative 2 completed Not Available [facility] 08/23/2013 13:38:52 Influenza, split virus, trivalent, preservative 3 completed Not Available [facility] 08/23/2013 13:38:52 Influenza, high-dose, trivalent, PF 8 completed Not Available [facility] 02/26/2019 02:22:14 Influenza, high-dose, trivalent, PF 9 completed Not Available [facility] 02/26/2019 02:22:09 Past Encounters Encounter ID Performer Location Encounter Start Date Encounter Closed Date Diagnosis/Indication Diagnosis SNOMED-CT Code Diagnosis ICD10 Code Diagnosis Note [id number] [facility] Main Office [address] [place] [address] 09/08/2013 11:14:56 09/08/2013 11:58:13 Essential hypertension 41486691 well controlled Asthma 534289343 followe d by pulm, well controlled on symbicort Anxiety state 381456363 Impacted cerumen 45936787 successful ly removed with ear lavage [id number] [facility] [address] [facility] [place] [address] 03/01/2009 00:00:00 [id number] auto[facility]Comm erce [address] [facility],[address] [place] [address] 03/29/2009 00:00:00 [id number] [facility] erce [address] [facility],[address] [place] [address] 09/10/2009 00:00:00 [id number] [address] [address] [place] [address] 11/13/2009 00:00:00 [id number] [facility] [place] [address] 11/30/2009 00:00:00 [id number] [facility] [facility] [address] [place] [address] 12/21/2009 00:00:00 [id number] [facility] [address] [place] [address] 02/11/2010 00:00:00 [id number] auto[facility]Comm erce [address] [facility] [address] [place] [address] 05/17/2010 00:00:00 [id number] auto[employer] erce [address] [facility] [place] [address] 08/23/2010 00:00:00 [id number] auto[facility]Comm erce [address] [facility] [address] [place] [address] 09/04/2010 00:00:00 [id number] auto[employer]Comm erce [address] [facility] [place] [address] 11/29/2010 00:00:00 [id number] auto[employer] erce [address] [facility] [place] [address] 01/10/2011 00:00:00 [id number] auto[employer]Comm erce [address] [facility] [place] [address] 05/02/2011 00:00:00 [id number] auto[facility] erce [address] [place] [address] 10/31/2011 00:00:00 [id number] autoEComm erce [address] [facility] [place] [address] 04/29/2012 00:00:00 [id number] auto[facility]Comm erce [address] [place] [address] 07/15/2012 00:00:00 [id number] [facility] [address] [facility] [place] [address] 01/27/2013 00:00:00 [id number] [facility] Main Office [address] [address] [place] [address] 09/26/2013 13:41:44 09/26/2013 14:55:33 Dermatitis 443415257 candidal dermatitis [id number] [facility] Main Office [address] [address] [place] [address] 03/02/2014 12:39:53 03/02/2014 13:42:38 Essential hypertension 10267188 Hyponatremia 25216305 pt to see Dr Pride regularly/ pt aware that she needs to stop using clorazepat e / see psych referral Anxiety state 654584005 Dysuria 69821346 [id number] Becky Norton [place] Main Office [address] [address] [place] [address] 04/21/2014 14:46:19 04/21/2014 15:48:33 Essential hypertension 76147533 both meds helpful/ Diltiazem and lisinopril Gastroesop hageal reflux disease 029276783 pt on PPI Anxiety state 357727609 Asthma 852278693 [id number] Ricardo medellin Main Office [address] [address] [place] [address] 03/23/2015 13:27:48 03/23/2015 14:47:01 Adult health examination 448855438 Z00.00 At [facility] ed risk for falls 384721597 Z91.81 Advance di rective discussed with patient 465926431 Z71.89 pt will have her brother as health care proxy Essential hypertension 64111239 I10 both meds helpful/ Diltiazem and lisinopril Polyp of colon 13727901 K63.5 pt due for colonoscop y 2017 /tubular adenoma/We iss Asthma 034709414 J45.90 9 Anxiety state 895962972 F41.1 [id number] Ricardo medellin Main Office [address] [address] [place] [address] 10/05/2015 12:46:12 10/05/2015 13:40:50 Essential hypertension 48566344 I10 both meds helpful/ Diltiazem and lisinopril Asthma 434138295 J45.90 9 urged pt to get flu shot soon. Anxiety state 871803293 F41.1 [id number] Ricardo Carversusana medellin Main Office [address] [address] [place] [address] 06/19/2016 12:55:50 06/19/2016 14:13:50 Fatigue 32331344 R53.83 Abnormal weight loss 267 130383 R63.4 Diarrhea 71116050 R19.7 Nausea 725719298 R11.0 d/w pt to elevate HOB/ cont PPI Impaired f asting glycemia 319300427 R73.01 [id number] Ricardo Carversusana medellin Main Office [address] [address] [place] [address] 10/23/2016 14:30:06 10/23/2016 15:27:24 [id number] Ricardo Carversusana medellin Main Office [address] [address] [place] [address] 10/31/2016 13:21:48 10/31/2016 14:41:18 Lumbosacral radiculitis 28553389 M54.17 Influenza vaccine needed 9873664644 106 Z23 [id number] Ricardo Carversusana medellin Main Office [address] [address] [place] [address] 12/01/2016 13:04:53 12/01/2016 14:09:38 Adult health examination 334727694 Z00.00 Essential hypertension 21479011 I10 both meds helpful/ Diltiazem and lisinopril Anxiety state 098712236 F41.1 [id number] Ricardo Carversusana medellin Main Office [address] [address] [place] [address] 05/15/2017 11:16:16 05/15/2017 12:12:51 Anxiety state 222127144 F41.1 Essential hypertension 18699221 I10 both meds helpful/ Diltiazem and lisinopril Incomplete emptying of urinary bladder 204163380 R39.14 [id number] Maryanne fernandes Main Office [address] [address] [place] [address] 11/13/2017 10:36:20 11/13/2017 11:18:17 Anxiety state 894970005 F41.1 has been on med for 20+ years, she is taking 3.75mg daily, will try to cut the dose in half if possible. f/u in 1 month for wellness visit. Influenza vaccine needed 7399530258 106 Z23 Gastroesop hageal reflux disease 365534870 K21.9 Essential hypertension 47687568 I10 well controlled , continue meds as directed. [id number] Ramon Callahan MD Main Office [address] [address] [place] [address] 12/18/2017 12:40:39 12/18/2017 13:46:58 Adult health examination 395734551 Z00.00 UTD, she will call NURSE TRANSITIONAL for appt Varicella vaccination 68 557411 Z23 Asthma 928331441 J45.90 9 Essential hypertension 22197520 I10 well controlled , continue meds as directed. Family his tory of Hypercholesterolemia 283598816 Z83.49 Anxiety state 858648728 F4Katerine.1 has been on med for 20+ years, she is taking 3.75mg daily, will try to cut the dose in half if possible. f/u in 1 month for wellness visit. [id number] NICOLÁS Fay Main Office [address] [address] [place] [address] 06/11/2018 12:42:51 06/11/2018 13:40:40 Low back pain 007880224 M54.5 Patient with chronic low back pain, in PT, seeing chiropract or, but wondering if she should be seeing someone else. Will check XR and refer back to [facility], she has seen them for this in the past. continue sx treatment, ibuprofen as needed. Cramp in lower limb 4499 52815 R25.2 Essential hypertension 40507068 I10 well controlled , continue meds as directed. Fatigue 50749606 R53.83 [id number] NICOLÁS Fay Main Office [address] [address] [place] [address] 01/20/2019 09:41:15 01/20/2019 10:33:29 Adult health examination 952291012 Z00.00 UTD, she has mammo scheduled, needs to call NURSE TRANSITIONAL. Influenza vaccine needed 7541329708 106 Z23 Impaired f asting glycemia 026839568 R73.01 in June, sugar 125 and she believes she was fasting Hyperlipidemia 68480107 E78.5 Health Concerns Section Related Observation LastModified by Organization Detai ls LastModified Time None Recorded Concern Status LastModified by Organization Details LastModified Time None Recorded Advance Directives Directive Y: Payers Encounter Date Sequence Insurance Name Policy Number Policy Menendez Covered Member ID Menendez Member ID Guarantor Name 05/15/2017 2 [id number] (MEDICARE SUPPLEMENT) [id number] Noris E Oparowski [id number] Noris E Oparowski 05/15/2017 1 [place] Noris E Oparowski [id number] 06 Noris E Oparowski 11/13/2017 2 [place] [id number] Noris E Oparowski [id number] Noris E Oparowski 11/13/2017 1 [place]ERNMENT [place] Noris E Oparowski [id number] 06 Noris E Oparowski 12/18/2017 2 [place] [id number] Noris E Oparowski [id number] Noris E Oparowski 12/18/2017 1 [place]ERNMENT [place] Noris E Oparowski [id number] 06 Noris E Oparowski 06/11/2018 2 [place] [id number] Noris E Oparowski [id number] Noris E Oparowski 06/11/2018 1 [place]ERNMENT [place] Noris E Oparowski [id number] 06 Noris E Oparowski 01/20/2019 2 [place] [id number] Noris E Oparowski [id number] Noris E Oparowski 01/20/2019 1 [place]ERNMENT [place] Noris E Oparowski [id number] 06 Noris E Oparowski Notes Date Note Type Note Provider Name and Address Organization Details Recorded Time 05/15/2017 text/html Anxiety/Depressi onRepo rted bypatient.Quality:incr eased anxiety; pt reports that sthe plans to return to her pschologist Dr Valdes this year Severity:able to maintain relationships Associated Symptoms:no significant weight gain; mood good; 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 , > 20 [...] no fever;incomplete emptying of bladder Ricardo rosario [facility] 05/15/2017 12:16:47 11/13/2017 text/html Anxiety/Depressi onRepo rted bypatient.Quality:incr eased anxiety; stress, car trouble Severity:able to maintain relationships Context:major life stressors;family problems Associated Symptoms:no significant weight gain;high irritability;hostility ;anxiety;hypersensitiv ity;anxiety with muscle tension; pt has chcf hx of benzo use , > 20 yearsNotes:+ hx nausea and diarrhea, panic attacks etc Maryanne rosario [facility] 11/13/2017 12:41:13 12/18/2017 text/html Medicare Annual [...] working on it) Ramon Callahan MD [address], [address], [facility] 12/19/2017 16:52:49 06/11/2018 text/html Generic HPI [...] strengthen legs. DR saw Dr. Miller at [facility]. Was discharged in 2017 due to improvement with PT. 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 Since the fall her back pain is worse. Denis Marcos, [facility] [address] [address], [place], [address], [facility] 06/11/2018 13:40:34 01/20/2019 text/html Medicare Annual [...] states she found a new PCP in [place] but cannot be seen until May. Denis Marcos [facility] [address] [place] [address], [place], [address], [facility] 01/20/2019 10:57:40 OBGyn Episode No OBEpisode recorded.
== END 2024-03-24 10:16 | disposition home or self-care (01) ==
LOC: HO.US 10:15
PROVIDERS: PCP Family Medicine; Visit Provider Surgery Vascular Surgery
DX: I83.12 Varicose veins of left lower extremity with inflammation (principal)
CPT/HCPCS: 93970

== ENCOUNTER → 2024-03-24 10:17 | Outpatient (BNV) | payer MEDICARE, MEDICAID, SELFPAY | PROVIDERS: PCP Family Medicine; Visit Provider Radiology Diagnostic Radiology | DX: I83.811 Varicose veins of right lower extremity with pain (principal); I83.812 Varicose veins of left lower extremity with pain; I87.2 Venous insufficiency (chronic) (peripheral) | CPT/HCPCS: 93970 ==

== ENCOUNTER 2024-04-05 13:10 | Outpatient (AMB) | payer MEDICARE, MEDICAID, SELFPAY ==
[2024-04-05 13:26] VITALS: BMI 30.2
--- NOTE | 2024-04-05 13:26 | MHC.OFFVIS ---
Vital Signs 04/05/24 13:26 Height 5 ft 1 in Weight 160 lb BMI 30.2 Intake Visit Reasons: follow up s/p US 03/24/24 Intake Note: follow up US 03/24/24, Right LE swelling worse than the Left LE. Pt states that walking and being on her feet worsen the swelling. Started a few years ago and wears compression sometimes because they only somewhat help. Services Coordinator Required: No Accompanied by: Friend Allergies Seasonal Allergies Allergy (Mild, Verified 04/05/24 13:32) runny nose latex Allergy (Verified 04/05/24 13:32) rash HPI HPI follow up s/p US 03/24/24: Details: Noris is presenting today as a follow up to venous insufficiency ultrasound, performed on 03/24/2024. She continues to endorse lower extremity swelling, right greater than left for multiple years now. She does continue to wear compression stockings daily for at least 3 months. 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 She does elevate her legs when she can. She states she will increase her physical activity now that the weather is getting better. [facility] Medical History Swelling of both lower extremities Pulmonary emboli (~01/2022) Skin cancer History of COVID-19 Essential hypertension Chronic allergic rhinitis Hyponatremia Asthma-COPD overlap syndrome Surgical History History of esophagogastroduodenoscopy (EGD) History of colonoscopy Family History Mother Breast cancer Father Prostate CA Stroke Social History Household Members: None Housing: House Housing Other:: mobile home- friend to be moving in Alcohol intake: current Alcohol intake frequency: 0-2 drinks per day (about 2 daily with ice ) Patient Tobacco Use Status: Former Tobacco user (20 years quit around age 51 ) Tobacco use type: Cigarette Cigarette Packs Per Day: 1.0 Years Smoked: 10 years e-Cigarette/Vaping Use: Never Used Second Hand Smoke Exposure: No service: No Current occupational status: retired 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 Current occupational exposures/hazards: No Cognitive needs: No Hearing needs: No Vision needs: No Review of Systems Const Reports as per HPI and Denies weakness ENT Reports Normal hearing present and Denies dizziness Card Reports as per HPI, Denies chest pain, Denies chest pain at rest, Denies chest pain with activity, Denies dyspnea and Denies dyspnea on exertion Resp Reports as per HPI, Denies cough, Denies dyspnea and Denies dyspnea on exertion GI Reports as per HPI, Denies abdominal pain, Denies nausea and Denies vomiting Musc Denies numbness Skin/Breast Reports as per HPI, Denies erythema and Denies wounds Neuro Reports Normal hearing present, Denies dizziness, Denies numbness, Denies Sensory deficit (Neuro) and Denies weakness Psych Reports no additional complaints Endo Reports no additional complaints Physical Exam Vital Signs: BMI result Body Mass Index 30.2 Const General: healthy appearing and no acute distress Orientation/consciousness: patient oriented x3 HEENT Head: Yes normal to inspection Ears: hearing grossly normal bilaterally Mouth: Normal oral and palatal mucosa present Resp Effort & Inspection: normal respiratory effort and able to speak in complete sentences Auscultation: clear to auscultation bilaterally Cardio Jugular venous distension: no JVD Rate: regular rate Rhythm: regular rhythm Heart sounds: S1 normal heart sound present and S2 normal heart sound present Bruits: no abdominal aortic bruits, no carotid bruits, no femoral bruits and no renal bruits Peripheral pulses: Peripheral pulses 2+ throughout GI Inspection: Yes normal to inspection Palpation (GI): No Abdominal aortic bruit present Skin General skin exam: no rashes or lesions noted Wounds: no wounds Hair: normal Neuro General: patient oriented x3 Cranial nerves: Yes Normal hearing present Cognition (Neuro): normal cognition Gait exam (Neuro): Normal gait present Motor exam (neuro): 5/5 motor strength present throughout Sensory Exam: No Sensory deficit (Neuro) Extrem Other: Bilateral lower extremities: +2 peripheral edema noted bilaterally. Palpable DP pulses. Leg measurements: Right in cm: Thigh 48.5 Knee 45 Calf 41 Ankle 20 Left in cm: Thigh 48.5 Knee 45.5 Calf 42 Ankle 27 General: Yes normal to inspection, Yes full ROM, Yes capillary refill normal and Yes normal gait Results Reviewed Results Reviewed: Brief summary of venous insufficiency testing is as follows: right great saphenous vein: negative right small saphenous vein: negative right accessory vein: none present left great saphenous vein: negative left small saphenous vein: negative left accessory vein: none present Please note there is no evidence of any venous aneurysms or significant tortuosity Assessment & Plan Assessment & Plan (1) Lymphedema: Code(s): I89.0 - Lymphedema, not elsewhere classified Category: Medical Plan: Noris is presenting today for a follow up to venous insufficiency ultrasound, performed on 03/24/2024. There was no insufficiency found on ultrasound. The patient does continue with bilateral lower extremity swelling, right more than left. In short the patient has late onset lymphedema. The patient has been on conservative treatment for at least 3 months with minimal relief. Patient has tried 30 mm of mercury compression garments, elevation, exercise, healthy diet, and doing manual self MLD to the best of their ability for over 4 weeks but with no significant relief. She has been compliant with the program but has provided minimal relief. In addition on physical exam, we are noticing hyperpigmentation, lymphorrhea, and hyperplasia. It appears that she has stage 2 lymphedema. Patient has completed multiple forms of conservative therapy, yet significant symptoms remain. Patient requires the use of a pneumatic compression device, which we will assist in trying to have the patient obtain them. We will have the patient attend to our lymphedema clinic on May 25. A pneumatic compression device will help reduce swelling and other lymphedema comorbidities. Thank you for allowing us to assist in this patient's care. Coding Level of Care Code Est Pt Level 4 (01920) Diagnoses Lymphedema I89.0 Comment Review of venous insufficiency ultrasound
--- OUTSIDE RECORDS SUMMARY | 2024-04-05 16:07 | XMS_ITS | Data Portability ---
Author Organization [facility], Main Office Address [address] [place] [address] Care Team Providers Care Frame Welder Cargo Utility Trailers Name Role Phone ABDIEL ORTEGA Baby Sitter GRACIELA MILLER Urologist ABDIEL LOZANO Photoengraving Apprentice [phone] URBAN PRIDE Key Holder HUMBERTO SINGH Electric Shaver Mechanic [phone] RICARDO HUGHES Chiropractor [facility] Physical Therapist DENIS MARCOS Primary Care Provider Assessment No assessment recorded. Plan of Treatment Reminders Order Date Submit Date Provider Last Modified By Organization Details Last Modified Time Details Appointments None recorded. Lab HbA1c (hemoglob in A1c), blood 2018 019 EQUISO [facility] (Centralized Electronic Ordering - All Locations), Patient Can Go To The Location Of Their Choice, [id number] 0 09:38:13 BMP, serum or plasma 2018 019 [employer] [facility] (Centralized Electronic Ordering - All Locations), Patient Can Go To The Location Of Their Choice, [id number] 0 09:38:13 lipid panel, serum 2018 019 [employer] [facility] (Centralized Electronic Ordering - All Locations), Patient Can Go To The Location Of Their Choice, [id number] 0 09:38:13 magnesium , serum or plasma 2018 019 TIMOTHY [facility] (Centralized Electronic Ordering - All Locations), Patient Can Go To The Location Of Their Choice, 15:24:53 CK (creatine kinase), total, serum 2018 019 TIMOTHY [facility] (Centralized Electronic Ordering - All Locations), Patient Can Go To The Location Of Their Choice, 15:24:54 CBC w/ auto diff 2018 019 TIMOTHY [facility] (Centralized Electronic Ordering - All Locations), Patient Can Go To The Location Of Their Choice, 13:55:52 CMP, serum or plasma 2018 019 TIMOTHY [facility] (Centralized Electronic Ordering - All Locations), Patient Can Go To The Location Of Their Choice, 15:24:51 TSH, serum or plasma 2018 019 TIMOTHY [facility] (Centralized Electronic Ordering - All Locations), Patient Can Go To The Location Of Their Choice, 15:37:23 lipid panel, serum 2017 018 TIMOTHY [facility] (Centralized Electronic Ordering - All Locations), Patient Can Go To The Location Of Their Choice, 15:24:52 CMP, serum or plasma 2017 [facility]), Patient Can Go To The Location Of Their Choice, 11:56:02 Referral spine center referral - patient in 2017, MRI showed crowding L2 nerve root on the left, having worsenign sx of sciatic pain, low back pain, leg pains bilateral ly. 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 Surgeries None recorded. Imaging XR, lumbar spine - chronic low back pain, worsening s/p fall in february [id number] [facility], [address] [place] [address], [address], 9 10:29:46 XR, sacrum + coccyx - s/p fall in february, hx low back arthritis . pain worsening 2018 019 [facility], [address] [place] [address], [address], 9 10:29:44 Medication Orders clorazepa te dipotassi um 3.75 mg tablet 2017 018 [id number], [address] [place], [address], 8 11:18:58 tamsulosi n 0.4 mg capsule 2017 018 [id number], [address] [place], [address], 8 13:01:14 clorazepa te dipotassi um 3.75 mg tablet 2017 018 [facility], [address] [place], [address], 8 12:05:21 Patient TargetsNo targets recorded. Patient Instructions Encounter Date Encounter Id Patient Instructions Last Modified By Organization Details Last Modified Time 11/13/2017 [id number] anxiety disorder: care instructions [email or web address] Not available 11/13/2017 11:18:44 call or return for worsening or concerns. [email or web address] Not available 11/13/2017 11:13:19 I have reviewed the note and agree with the assessment and plan of care. dolores Not available 11/13/2017 12:41:01 12/18/2017 [id number] preventing falls: care instructions jthabet Not available [...] medication. jthabet Not available 12/18/2017 13:20:44 06/11/2018 [id number] low back pain: exercises jthabet Not available 06/11/2018 13:24:20 call or return for worsening or concerns. [email or web address] Not available 06/11/2018 13:22:08 01/20/2019 [id number] preventing falls: care instructions jthabet Not available [...] of risk and benefits, and of OUD. [email or web address] Not available 01/20/2019 09:46:37 Reason for Referral Urologist Referral for Incom plete emptying of urinary bladder pt has not seen urology in 2 years or more and wants to have consultation w/ urologist rather than RETAIL STOCK CLERK Referring Physician: Ricardo Dhillon, Internal Medicine, Encounter [...] Abnormal Flag Note LastModifiedBy Organization Detail LastModifiedTime 09/12/1909/11/2017 CBC w/ auto diff WBC 7.3 K/mm3 (4.0-1 1.0) Not Available [facility] (Centralized Electronic Ordering - All Locations) Patient Can Go To The Location Of Their Choice, 09/11/2017 22:27:42 09/12/1909/11/2017 CBC w/ auto diff RBC 4.68 M/mm3 (4.20- 5.40) Not Available [facility] (Centralized Electronic Ordering - All Locations) Patient Can Go To The Location Of Their Choice, 09/11/2017 22:27:42 09/12/1909/11/2017 CBC w/ auto diff HGB 14.7 gm/dL (11.7- 15.5) Not Available [facility] (Centralized Electronic Ordering - All Locations) Patient Can Go To The Location Of Their Choice, 09/11/2017 22:27:42 09/12/1909/11/2017 CBC w/ auto diff HCT 43.2 % (35.7- 45.8) Not Available [facility] (Centralized Electronic Ordering - All Locations) Patient Can Go To The Location Of Their Choice, 09/11/2017 22:27:42 09/12/1909/11/2017 CBC w/ auto diff MCV 92.3 fL (80.0- 100.0) Not Available [facility] (Centralized Electronic Ordering - All Locations) Patient Can Go To The Location Of Their Choice, 09/11/2017 22:27:42 09/12/1909/11/2017 CBC w/ auto diff MCH 31.4 pg (27.0- 34.0) Not Available [facility] (Centralized Electronic Ordering - All Locations) Patient Can Go To The Location Of Their Choice, 09/11/2017 22:27:42 09/12/1909/11/2017 CBC w/ auto diff MCHC 34.0 g/dL (33.0- 37.0) Not Available [facility] (Centralized Electronic Ordering - All Locations) Patient Can Go To The Location Of Their Choice, 09/11/2017 22:27:42 09/12/1909/11/2017 CBC w/ auto diff plt 230 K/mm3 (150-4 60) Not Available [facility] (Centralized Electronic Ordering - All Locations) Patient Can Go To The Location Of Their Choice, 09/11/2017 22:27:42 09/12/1909/11/2017 CBC w/ auto diff RDW-SD 45.7 fL (<47.0 ) Not Available [facility] (Centralized Electronic Ordering - All Locations) Patient Can Go To The Location Of Their Choice, 09/11/2017 22:27:42 09/12/1909/11/2017 CBC w/ auto diff MPV 9.5 fL (9.4-1 2.4) Not Available [facility] (Centralized Electronic Ordering - All Locations) Patient Can Go To The Location Of Their Choice, 09/11/2017 22:27:42 09/12/1909/11/2017 CBC w/ auto diff automated NRBC 0.0 #/100 _WBC' s Not Available [facility] (Centralized Electronic Ordering - All Locations) Patient Can Go To The Location Of Their Choice, 09/11/2017 22:27:42 09/12/1909/11/2017 CBC w/ auto diff abs. NRBC 0.0 K/mm3 Not Available [facility] (Centralized Electronic Ordering - All Locations) Patient Can Go To The Location Of Their Choice, 09/11/2017 22:27:42 09/12/1909/11/2017 CBC w/ auto diff neut # 4.7 K/mm3 (1.3-7 .0) Not Available [facility] (Centralized Electronic Ordering - All Locations) Patient Can Go To The Location Of Their Choice, 09/11/2017 22:27:42 09/12/1909/11/2017 CBC w/ auto diff lymph # 1.4 K/mm3 (0.8-3 .1) Not Available [facility] (Centralized Electronic Ordering - All Locations) Patient Can Go To The Location Of Their Choice, 09/11/2017 22:27:42 09/12/1909/11/2017 CBC w/ auto diff mono# 0.9 K/mm3 (0.4-0 .9) Not Available [facility] (Centralized Electronic Ordering - All Locations) Patient Can Go To The Location Of Their Choice, 09/11/2017 22:27:42 09/12/1909/11/2017 CBC w/ auto diff eo # 0.2 K/mm3 (0.0-0 .4) Not Available [facility] (Centralized Electronic Ordering - All Locations) Patient Can Go To The Location Of Their Choice, 09/11/2017 22:27:42 09/12/1909/11/2017 CBC w/ auto diff baso # 0.1 K/mm3 (0.0-0 .1) Not Available [facility] (Centralized Electronic Ordering - All Locations) Patient Can Go To The Location Of Their Choice, 09/11/2017 22:27:42 09/12/1909/11/2017 CBC w/ auto diff abs. imm gran 0.0 K/mm3 Not Available [facility] ([facility] Order[facility] - All Locations) Patient Can Go To The Location Of Their Choice, 09/11/2017 22:27:42 09/12/1909/11/2017 CBC w/ auto diff neut 64.7 % (44-76 ) Not Available [facility] (Centralized Electronic Ordering - All Locations) Patient Can Go To The Location Of Their Choice, 09/11/2017 22:27:42 09/12/1909/11/2017 CBC w/ auto diff lymph 18.7 % (15-43 ) Not Available [facility] (Centralized Electronic Ordering - All Locations) Patient Can Go To The Location Of Their Choice, 09/11/2017 22:27:42 09/12/1909/11/2017 CBC w/ auto diff monocyte 12.6 % (4.5-1 0.5) high Not Available [facility] (Centralized Electronic Ordering - All Locations) Patient Can Go To The Location Of Their Choice, 09/11/2017 22:27:42 09/12/1909/11/2017 CBC w/ auto diff eo 2.5 % (0-6) Not Available [facility] (Centralized Electronic Ordering - All Locations) Patient Can Go To The Location Of Their Choice, 09/11/2017 22:27:42 09/12/1909/11/2017 CBC w/ auto diff baso 1.2 % (0-2) Not Available [facility] (Centralized Electronic Ordering - All Locations) Patient Can Go To The Location Of Their Choice, 09/11/2017 22:27:42 09/12/1909/11/2017 CBC w/ auto diff imm gran 0.3 % (0.0-0 .6) Not Available [facility] (Centralized Electronic Ordering - All Locations) Patient Can Go To The Location Of Their Choice, 09/11/2017 22:27:42 09/12/1909/11/2017 CMP, serum or plasm a glucose 104 mg/dL (70-99 ) high Not Available [facility] (Centralized Electronic Ordering - All Locations) Patient Can Go To The Location Of Their Choice, 09/11/2017 23:29:56 09/12/1909/11/2017 CMP, serum or plasm a BUN 11 mg/dL (8-23) Not Available [facility] (Centralized Electronic Ordering - All Locations) Patient Can Go To The Location Of Their Choice, 09/11/2017 23:29:56 09/12/1909/11/2017 CMP, serum or plasm a creatinine 0.8 mg/dL (0.5-1 .0) Not Available [facility] (Centralized Electronic Ordering - All Locations) Patient Can Go To The Location Of Their Choice, 09/11/2017 23:29:56 09/12/1909/11/2017 CMP, serum or plasm a sodium 134 mmol/ L (133-1 45) Not Available [facility] (Centralized Electronic Ordering - All Locations) Patient Can Go To The Location Of Their Choice, 09/11/2017 23:29:56 09/12/1909/11/2017 CMP, serum or plasm a potassium 4.6 mmol/ L (3.6-5 .2) Not Available [facility] (Centralized Electronic Ordering - All Locations) Patient Can Go To The Location Of Their Choice, 09/11/2017 23:29:56 09/12/1909/11/2017 CMP, serum or plasm a chloride 96 mmol/ L (98-10 7) low Not Available [facility] (Centralized Electronic Ordering - All Locations) Patient Can Go To The Location Of Their Choice, 09/11/2017 23:29:56 09/12/1909/11/2017 CMP, serum or plasm a bicarbonate 23 mmol/ L (22-29 ) Not Available [facility] (Centralized Electronic Ordering - All Locations) Patient Can Go To The Location Of Their Choice, 09/11/2017 23:29:56 09/12/1909/11/2017 CMP, serum or plasm a anion gap 15 (4-17) Not Available [facility] (Centralized Electronic Ordering - All Locations) Patient Can Go To The Location Of Their Choice, 09/11/2017 23:29:56 09/12/1909/11/2017 CMP, serum or plasm a albumin 4.1 gm/dL (3.4-4 .8) Not Available [facility] (Centralized Electronic Ordering - All Locations) Patient Can Go To The Location Of Their Choice, 09/11/2017 23:29:56 09/12/1909/11/2017 CMP, serum or plasm a calcium 9.3 mg/dL (8.6-1 0.5) Not Available [facility] (Centralized Electronic Ordering - All Locations) Patient Can Go To The Location Of Their Choice, 09/11/2017 23:29:56 09/12/1909/11/2017 CMP, serum or plasm a bilirubin,to della 0.4 mg/dL (0-1.2 ) Not Available [facility] (Centralized Electronic Ordering - All Locations) Patient Can Go To The Location Of Their Choice, 09/11/2017 23:29:56 09/12/1909/11/2017 CMP, serum or plasm a total protein 6.6 gm/dL (6.2-8 .2) Not Available [facility] (Centralized Electronic Ordering - All Locations) Patient Can Go To The Location Of Their Choice, 09/11/2017 23:29:56 09/12/1909/11/2017 CMP, serum or plasm a Ag ratio 1.6 Not Available [facility] (Centralized Electronic Ordering - All Locations) Patient Can Go To The Location Of Their Choice, 09/11/2017 23:29:56 09/12/1909/11/2017 CMP, serum or plasm a AST 24 U/L (0-32) Not Available [facility] (Centralized Electronic Ordering - All Locations) Patient Can Go To The Location Of Their Choice, 09/11/2017 23:29:56 09/12/1909/11/2017 CMP, serum or plasm a alk phos 104 U/L (35-10 4) Not Available [facility] (Centralized Electronic Ordering - All Locations) Patient Can Go To The Location Of Their Choice, 09/11/2017 23:29:56 09/12/1909/11/2017 CMP, serum or plasm a ALT 22 U/L (0-33) Not Available [facility] (Centralized Electronic Ordering - All Locations) Patient Can Go To The Location Of Their Choice, 09/11/2017 23:29:56 09/12/1909/11/2017 CMP, serum or plasm a est GFR [...] [place] an Amer[place] cans. Not Available [facility] (Centralized Electronic Ordering - All Locations) Patient Can Go To The Location Of Their Choice, 09/11/2017 23:29:56 09/12/1909/11/2017 CMP, serum or plasm a est GFR [...] [place] an [employer] cans. Not Available [facility] (Centralized Electronic Ordering - All Locations) Patient Can Go To The Location Of Their Choice, 09/11/2017 23:29:56 09/12/19 18 09/11/2017 magne sium, serum or plasm a magnesium 1.6 mEq/L (1.3-1 .9) Not Available [facility] ([facility]ized Electronic Ordering - All Locations) Patient Can Go To The Location Of Their Choice, 09/11/2017 23:29:57 06/15/1906/14/2018 CBC w/ auto diff WBC 7.5 K/mm3 (4.0-1 1.0) Not Available [facility] ([facility]ized Electronic Ordering - All Locations) Patient Can Go To The Location Of Their Choice, 06/14/2018 13:55:52 06/15/1906/14/2018 CBC w/ auto diff RBC 4.66 M/mm3 (4.20- 5.40) Not Available [facility] ([facility]ized Electronic Ordering - All Locations) Patient Can Go To The Location Of Their Choice, 06/14/2018 13:55:52 06/15/1906/14/2018 CBC w/ auto diff HGB 15.3 gm/dL (11.7- 15.5) Not Available [facility] (Centralized Electronic Ordering - All Locations) Patient Can Go To The Location Of Their Choice, 06/14/2018 13:55:52 06/15/1906/14/2018 CBC w/ auto diff HCT 43.9 % (35.7- 45.8) Not Available [facility] ([facility]ized Electronic Ordering - All Locations) Patient Can Go To The Location Of Their Choice, 06/14/2018 13:55:52 06/15/1906/14/2018 CBC w/ auto diff MCV 94.2 fL (80.0- 100.0) Not Available [facility] ([facility]ized Electronic Ordering - All Locations) Patient Can Go To The Location Of Their Choice, 06/14/2018 13:55:52 06/15/1906/14/2018 CBC w/ auto diff MCH 32.8 pg (27.0- 34.0) Not Available [facility] ([facility]ized Electronic Ordering - All Locations) Patient Can Go To The Location Of Their Choice, 06/14/2018 13:55:52 06/15/1906/14/2018 CBC w/ auto diff MCHC 34.9 g/dL (33.0- 37.0) Not Available [facility] ([facility]ized Electronic Ordering - All Locations) Patient Can Go To The Location Of Their Choice, 06/14/2018 13:55:52 06/15/1906/14/2018 CBC w/ auto diff plt 256 K/mm3 (150-4 60) Not Available [facility] ([facility] Ordering - All Locations) Patient Can Go To The Location Of Their Choice, 06/14/2018 13:55:52 06/15/1906/14/2018 CBC w/ auto diff RDW-SD 43.2 fL (<47.0 ) Not Available [facility] ([facility] Ordering - All Locations) Patient Can Go To The Location Of Their Choice, 06/14/2018 13:55:52 06/15/1906/14/2018 CBC w/ auto diff MPV 9.9 fL (9.4-1 2.4) Not Available [facility] ([facility] Ordering - All Locations) Patient Can Go To The Location Of Their Choice, 06/14/2018 13:55:52 06/15/1906/14/2018 CBC w/ auto diff automated NRBC 0.0 #/100 _WBC' s Not Available [facility] ([facility] Ordering - All Locations) Patient Can Go To The Location Of Their Choice, 06/14/2018 13:55:52 06/15/1906/14/2018 CBC w/ auto diff abs. NRBC 0.0 K/mm3 Not Available [facility] ([facility] Ordering - All Locations) Patient Can Go To The Location Of Their Choice, 06/14/2018 13:55:52 06/15/1906/14/2018 CMP, serum or plasm a glucose 125 mg/dL (70-99 ) high Not Available [facility] ([facility] Ordering - All Locations) Patient Can Go To The Location Of Their Choice, 06/14/2018 15:24:51 06/15/1906/14/2018 CMP, serum or plasm a BUN 8 mg/dL (8-23) Not Available [facility] ([facility] Ordering - All Locations) Patient Can Go To The Location Of Their Choice, 06/14/2018 15:24:51 06/15/1906/14/2018 CMP, serum or plasm a creatinine 0.8 mg/dL (0.5-1 .0) Not Available [facility] ([facility] Ordering - All Locations) Patient Can Go To The Location Of Their Choice, 06/14/2018 15:24:51 06/15/1906/14/2018 CMP, serum or plasm a sodium 134 mmol/ L (133-1 45) Not Available [facility] ([facility] Ordering - All Locations) Patient Can Go To The Location Of Their Choice, 06/14/2018 15:24:51 06/15/1906/14/2018 CMP, serum or plasm a potassium 4.6 mmol/ L (3.6-5 .2) Not Available [facility] ([facility] Ordering - All Locations) Patient Can Go To The Location Of Their Choice, 06/14/2018 15:24:51 06/15/1906/14/2018 CMP, serum or plasm a chloride 98 mmol/ L (98-10 7) Not Available [facility] ([facility] Ordering - All Locations) Patient Can Go To The Location Of Their Choice, 06/14/2018 15:24:51 06/15/1906/14/2018 CMP, serum or plasm a bicarbonate 23 mmol/ L (22-29 ) Not Available [facility] ([facility] Ordering - All Locations) Patient Can Go To The Location Of Their Choice, 06/14/2018 15:24:51 06/15/1906/14/2018 CMP, serum or plasm a anion gap 13 (4-17) Not Available [facility] ([facility] Ordering - All Locations) Patient Can Go To The Location Of Their Choice, 06/14/2018 15:24:51 06/15/1906/14/2018 CMP, serum or plasm a albumin 4.5 gm/dL (3.4-4 .8) Not Available [facility] ([facility] Ordering - All Locations) Patient Can Go To The Location Of Their Choice, 06/14/2018 15:24:51 06/15/1906/14/2018 CMP, serum or plasm a calcium 9.5 mg/dL (8.6-1 0.5) Not Available [facility] ([facility] Ordering - All Locations) Patient Can Go To The Location Of Their Choice, 06/14/2018 15:24:51 06/15/1906/14/2018 CMP, serum or plasm a bilirubin,to della 0.5 mg/dL (0-1.2 ) Not Available [facility] ([facility] Ordering - All Locations) Patient Can Go To The Location Of Their Choice, 06/14/2018 15:24:51 06/15/1906/14/2018 CMP, serum or plasm a total protein 7.0 gm/dL (6.2-8 .2) Not Available [facility] ([facility] Ordering - All Locations) Patient Can Go To The Location Of Their Choice, 06/14/2018 15:24:51 06/15/1906/14/2018 CMP, serum or plasm a Ag ratio 1.8 Not Available [facility] ([facility] Ordering - All Locations) Patient Can Go To The Location Of Their Choice, 06/14/2018 15:24:51 06/15/1906/14/2018 CMP, serum or plasm a AST 28 U/L (0-32) Not Available [facility] ([facility] Order[facility] - All Locations) Patient Can Go To The Location Of Their Choice, 06/14/2018 15:24:51 06/15/1906/14/2018 CMP, serum or plasm a alk phos 105 U/L (35-10 4) high Not Available [facility] ([facility] Order[facility] - All Locations) Patient Can Go To The Location Of Their Choice, 06/14/2018 15:24:51 06/15/1906/14/2018 CMP, serum or plasm a ALT 27 U/L (0-33) Not Available [facility] ([facility] Ordering - All Locations) Patient Can Go To The Location Of Their Choice, 06/14/2018 15:24:51 06/15/1906/14/2018 CMP, serum or plasm a est GFR [...] [place] [employer]. Not Available [facility] ([facility]ized [facility] Ordering - All Locations) Patient Can Go To The Location Of Their Choice, 06/14/2018 15:24:51 06/15/1906/14/2018 CMP, serum or plasm a est GFR [...] [place] [employer]. Not Available [facility] ([facility] Ordering - All Locations) Patient Can Go To The Location Of Their Choice, 06/14/2018 15:24:51 06/15/1906/14/2018 lipid panel , serum cholesterol, total 192 mg/dL (<200) Not Available [facility] Locations) Patient Can Go To The Location Of Their Choice, 06/14/2018 15:24:52 06/15/1906/14/2018 lipid panel , serum triglyceride 190 mg/dL (<150) high Not Available [facility]) Patient Can Go To The Location Of Their Choice, 06/14/2018 15:24:52 06/15/1906/14/2018 lipid panel , serum HDL chol 59 mg/dL (>39) Not Available [facility] ([facility] Ordering - All Locations) Patient Can Go To The Location Of Their Choice, 06/14/2018 15:24:52 06/15/1906/14/2018 lipid panel , serum LDL cholesterol, calculated 95 mg/dL (0-130 ) Not Available [facility] ([facility] Ordering - All Locations) Patient Can Go To The Location Of Their Choice, 06/14/2018 15:24:52 06/15/1906/14/2018 lipid panel , serum non HDL cholesterol (calc) 133 mg/dL (<160) Not Available [facility] Order[facility] - All Locations) Patient Can Go To The Location Of Their Choice, 06/14/2018 15:24:52 06/15/1906/14/2018 magne sium, serum or [...] : 1.3-1 .9 mEq/L Not Available [facility] ([facility] Ordering - All Locations) Patient Can Go To The Location Of Their Choice, 06/14/2018 15:24:53 06/15/1906/14/2018 CK (crea yue kinas e), total , serum CK,total only 75 U/L (0-190 ) Not Available [facility] ([facility] Ordering - All Locations) Patient Can Go To The Location Of Their Choice, 06/14/2018 15:24:54 06/15/1906/14/2018 TSH, serum or plasm a TSH 0.89 mIU/m L (0.40- 4.00) Not Available [facility] ([facility] Ordering - All Locations) Patient Can Go To The Location Of Their Choice, 06/14/2018 15:37:23 05/16/19 18 elect rocar diogr am No observ ation record ed. [email or web address] Not Available 07/2017 12:36:53 06/15/1906/14/2018 XR, sacru m + coccy x, 2 [...] ce of an acute proces s. WSN: [id number] Dictat ed By: Delonte Barrios MD Dictat ed Date/T erlinda: 10:26 a Review ed By: Delonte Barrios MD Signed By: Delonte Barrios MD Signed Date/T erlinda: 10:26 am Transc ribed By: PASTORA Transc ribed Date/T erlinda: 10:24 am Patien t Class: Outpat ient [facility] ([facility]) [address] [place], [address], 06/15/2018 15:07:23 06/15/19 19 06/14/2018 XR, lumba [...] ce of an acute proces s. WSN: [id number] Dictat ed By: Delonte Barrios MD Dictat ed Date/T erlinda: 10:26 a Review ed By: Delonte Barrios MD Signed By: Delonte Barrios MD Signed Date/T erlinda: 10:26 am Transc ribed By: PASTORA Transc ribed Date/T erlinda: 10:24 am Patien t Class: Outpat ient [facility] ([facility]) [address] [place], [address], 06/15/2018 15:07:23 Result Notes None recorded. Problems Name Problem SNOMED Code Status Onset Date Resolution Date Notes Provider Name and Address Organization Details Recorded Time Anemia due to chronic blood loss 709575076 Completed 201108/23/2013 RECORDED 10/31/19 12 2:42PM BY NICKY WOODS ON/ADDEN DUM Michelle Ervin abraham [facility] 6 11:38:21 Anxiety state [id number] Active 2012 Becky rosario [facility] 7 17:00:55 Tobacco user [id number] Completed 201208/23/2013 RECORDED 01/28/20 13 1:17PM BY ALEXANDRE AGUILAR MA, ANNOTATI ON/ADDEN DUM Becky rosario [facility] 7 17:00:35 History of clinical finding in subject [id number] Completed 201209/17/2016 RECORDED 01/28/20 13 1:17PM BY ALEXANDRE AGUILAR MA, ANNOTATI ON/ADDEN DUM Becky rosario [facility] 7 17:01:11 Asthma [id number] Active 2012 Becky rosario [facility] 7 17:00:52 Screenin g for malignan t neoplasm of breast Completed 201410/31/2016 Dr. Susy Ortega, negative Becky rosario [facility] 7 13:35:13 Screenin g for malignan t neoplasm of breast Completed 201108/23/2013 RECORDED 10/31/19 12 2:41PM BY JEREL WOODSATI ON/ADDEN DUM Becky rosario, [facility] 7 13:35:13 Chest pain [id number] Completed 201108/23/2013 RECORDED 10/31/19 12 2:41PM BY JEREL WOODSATI ON/ADDEN DUM Michelle Degutedouard null, [facility] 6 11:38:22 Screenin g for malignan t neoplasm of colon Completed 201208/23/2013 RECORDED 04/30/19 13 2:37PM BY TEA HANDY MA, ANNOTATI ON/ADDEN DUM Michelle Degutedouard null, [facility] 6 11:38:22 Divertic ular disease of colon 878543088 Completed 201108/23/2013 STORY: PT WAS SEEN IN OUR OFFICE 11/30/09 FOR RECTAL BLEEDING AND WAS REFERRED TO GI FOR AN EVALUATI ON. THAT EVENING EVERY TIME THE PT ATE SOMETHIN G SHE WOULD BE GOING TO THE BATHROOM TO HAVE A BM THAT WAS FILLED WITH BLOOD. AFTER A FEW TIMES THE PT TOOK HERSELF TO [facility] TO BE EVALUATE D. THE ONLY SX THAT THE PT FELT WAS BLOATING AND CRAMPING EVERYTIM E SHE ATE. PT HAD TO UNDERGO A COLONOSC OPY WITCH SHOWED THAT THE PT HAD BLEEDING COMING FROM THE [place],DESCEN DING, AND TRANSVER SE COLON. PT WAS LATER TRANSFER RED TO [facility] TO BE WATCHED CLOSELY. PT WAS THEN PLACED ON A LIQUID DIET UNTIL THE TIME WHERE SHE COULD TOLERATE SOLID FOOD WITH OUT PASSING A BM THAT WAS BLOODY. MEDICATI ON HAS BEEN RECONSIL ED WITH THE PT AND SHE WILL F/U WITH MGD 12/21/09 .; RECORDED 10/31/19 12 2:41PM BY JEREL WOODSATI ON/ADDEN DUM Michelle Antoniousha null, [facility] 6 11:38:21 Hemorrha ge of colon 53241714 Completed 201108/23/2013 STORY: STABLE/ STILL ANEMIC; RECORDED 10/31/19 12 2:41PM BY NICKY WOODS ON/ADDEN DUM Michelle rosario [facility] 6 11:38:22 Divertic ulitis of colon 714975036 Active 2011 Becky rosario [facility] 7 17:00:37 Dysuria 24089020 Completed 201108/23/2013 IMPRESSI ON: 3+ LEUKOCYT ES ON UA TODAY, COMPLETE D BACTRIM 2 DAYS AGO, START CIPRO AND SEND CULTURE; RECORDED 10/31/19 12 2:41PM BY INCKY WOODS ON/ADDEN DUM Becky rosario [facility] 7 17:01:13 Gastroes ophageal reflux disease 502571959 Active 2012 Becky rosario [facility] 7 17:00:59 [facility] hyperten julisa 63367198 Active 2012 Becky rosario [facility] 7 17:01:17 Essentia l hyperten julisa 54102028 Completed 201108/23/2013 RECORDED 10/31/19 12 2:41PM BY NICKY WOODS ON/ADDEN DUM Becky rosario [facility] 7 17:01:17 External hemorrho ids 78587479 Active 2012 Becky rosario [facility] 7 17:01:03 Influenz a vaccine needed [id number] 06 Completed 201208/23/2013 RECORDED 04/30/19 13 2:37PM BY TEA HANDY MA, ANNOTATI ON/ADDEN DUM Michelle rosario [facility] 6 11:38:22 Follow-u p encounte r Completed 201208/23/2013 RECORDED 04/30/19 13 2:37PM BY TEA HANDY MA, ANNOTATI ON/ADDEN DUM Michelle Degutis null, [facility] 6 11:38:22 Tobacco user 197026528 Active 2012 Becky rosario, [facility] 7 17:00:35 Adult health examinat ion Completed 201209/17/2016 STORY: COLONOSC OPY DUE SS/TUBUL AR ADENOMA; RECORDED 01/28/20 13 1:58PM BY RICARDO COLE MD, OFFICE VISIT Becky rosario, [facility] 7 17:01:05 Adult health examinat ion Completed 201208/23/2013 RECORDED 04/30/19 13 2:37PM BY TEA HANDY MA, ANNOTATI ON/ADDEN DUM Becky rosario, [facility] 7 17:01:05 Hearing loss 49962252 Active 2012 Becky rosario, [facility] 7 17:00:40 History of Malignan t melanoma 002356685 Active 2013 Becky rosario, [facility] 7 17:00:45 Hypo-osm olality and or hyponatr emia 757825823 Completed 201108/23/2013 RECORDED 10/31/19 12 2:41PM BY NICKY WOODS ON/ADDEN DUM Michelle Degutedouard null, [facility] 6 11:38:21 Impacted cerumen 16248788 Completed 201208/23/2013 RECORDED 01/28/20 13 1:17PM BY ALEXANDRE AGUILAR MA, ANNOTATI ON/ADDEN DUM Becky rosario, [facility] 7 17:00:46 Irritabl e bowel syndrome 34917573 Active 2012 Becky rosario [facility] 7 17:00:31 Renewal of prescrip tion Completed 201208/23/2013 RECORDED 04/30/19 13 2:37PM BY TEA HANDY MA, ANNOTATI ON/ADDEN DUM Michelle Degutis null, [facility] 6 11:38:22 Malignan t melanoma of skin 21394386 Active 2013 Becky rosario, [facility] 7 17:01:28 Active or passive immuniza tion Completed 200908/23/2013 RECORDED 03/01/19 10 9:56AM BY PILLO Masters NP, OFFICE VISIT Michelle rosario [facility] 6 11:38:22 Examinat ion for suspecte d mental disorder Completed 201108/23/2013 RECORDED 10/31/19 12 2:41PM BY NICKY WOODS ON/ADDEN DUM Michelle Degutis null [facility] 6 11:38:22 Pre-surg girish evaluati on Completed 201208/23/2013 IMPRESSI ON: PT IS MEDICALL Y ABLE TO UNDERGO SURGERY, NO ACTIVE ISSUES, IS ABLE TO LAY FLAT AND STILL, EKG NL AND WILL GET LABS; RECORDED 01/28/20 13 1:17PM BY ALEXANDRE AGUILAR MA, NICKY ON/ADDEN DUM Michelle Degutis abraham [facility] 6 11:38:22 Tachycar wesley [id number] Completed 201108/23/2013 RECORDED 10/31/19 12 2:42PM BY NICKY WOODS ON/ADDEN DUM Michelle Degutis null [facility] 6 11:38:22 Retentio n of urine 016222186 Completed 201208/23/2013 RECORDED 04/30/19 13 2:37PM BY TEA HANDY MA, ANNOTATI ON/ADDEN DUM Michelle Degutis abraham [facility] 6 11:38:22 Urinary tract infectio us disease 32719049 Active 2013 Becky rosario [facility] 7 17:01:20 Vaginiti s and vulvovag initis Completed 201108/23/2013 IMPRESSI ON: VAGINAL ITCHING AFTER COMPLETI NG ANTIBIOT ICS; RECORDED 10/31/19 12 2:42PM BY NICKY WOODS ON/ADDEN DUM Michelle Degutis abraham [facility] 6 11:38:22 Impacted cerumen 28592315 Completed 09/17/2016 Becky rosario [facility] 7 17:00:46 Hyponatr emia 89919593 Completed 09/04/2017 Dilshad Hall MD [address] [facility] [address], [place], [address] 8 06:00:03 Anemia due to chronic blood loss 460503643 Completed 201109/15/2013 RECORDED 10/31/19 12 2:42PM BY NICKY WOODS ON/ADDEN DUM Michelle Degutis abraham [facility] 6 11:38:21 Tobacco user [id number] Completed 201209/15/2013 RECORDED 01/28/20 13 1:17PM BY ALEXANDRE AGUILAR MA, ANNOTATI ON/ADDEN DUM Becky rosario [facility] 7 17:00:35 Chest pain 59376079 Completed 201109/15/2013 RECORDED 10/31/19 12 2:41PM BY NICKY WOODS ON/ADDEN DUM Michelle Degutis abraham [facility] 6 11:38:22 Screenin g for malignan t neoplasm of colon Completed 201209/15/2013 RECORDED 04/30/19 13 2:37PM BY TEA HANDY MA, ANNOTATI ON/ADDEN DUM Michelle Degutis abraham [facility] 6 11:38:22 Divertic ular disease of colon 891897217 Completed 201109/15/2013 STORY: PT WAS SEEN IN OUR OFFICE 11/30/09 FOR RECTAL BLEEDING AND WAS REFERRED TO GI FOR AN EVALUATI ON. THAT EVENING EVERY TIME THE PT ATE SOMETHIN G SHE WOULD BE GOING TO THE BATHROOM TO HAVE A BM THAT WAS FILLED WITH BLOOD. AFTER A FEW TIMES THE PT TOOK HERSELF TO [facility] TO BE EVALUATE D. THE ONLY SX THAT THE PT FELT WAS BLOATING AND CRAMPING EVERYTIM E SHE ATE. PT HAD TO UNDERGO A COLONOSC OPY WITCH SHOWED THAT THE PT HAD BLEEDING COMING FROM THE [place],DESCEN DING, AND TRANSVER SE COLON. PT WAS LATER TRANSFER RED TO [facility] TO BE WATCHED CLOSELY. PT WAS THEN PLACED ON A LIQUID DIET UNTIL THE TIME WHERE SHE COULD TOLERATE SOLID FOOD WITH OUT PASSING A BM THAT WAS BLOODY. MEDICATI ON HAS BEEN RECONSIL ED WITH THE PT AND SHE WILL F/U WITH MGD 12/21/09 .; RECORDED 10/31/19 12 2:41PM BY NICKY WOODS ON/ADDEN TORIE rosario [facility] 6 11:38:21 Hemorrha ge of colon 11054567 Completed 201109/15/2013 STORY: STABLE/ STILL ANEMIC; RECORDED 10/31/19 12 2:41PM BY NICKY WOODS ON/ADDEN TORIE rosario [facility] 6 11:38:22 Dysuria 52797314 Completed 201109/15/2013 IMPRESSI ON: 3+ LEUKOCYT ES ON UA TODAY, COMPLETE D BACTRIM 2 DAYS AGO, START CIPRO AND SEND CULTURE; RECORDED 10/31/19 12 2:41PM BY NICKY WOODS ON/ADDEN DUM Becky rosario [facility] 7 17:01:13 Influenz a vaccine needed [id number] 06 Completed 201209/15/2013 RECORDED 04/30/19 13 2:37PM BY TEA HANDY MA, JERELATI ON/ADDEN DUM Michelle Ervin [place], [facility] 6 11:38:22 Follow-u p encounte r Completed 201209/15/2013 RECORDED 04/30/19 13 2:37PM BY TEA HANDY MA, ANNOTATI ON/ADDEN DUM Michelle Aziza [place], [facility] 6 11:38:22 Hypo-osm olality and or hyponatr emia 796165248 Completed 201109/15/2013 RECORDED 10/31/19 12 2:41PM BY NICKY WOODS ON/ADDEN DUM Michelle Aziza [place], [facility] 6 11:38:21 Impacted cerumen 89550963 Completed 201209/15/2013 RECORDED 01/28/20 13 1:17PM BY ALEXANDRE AGUILAR MA, JERELATI ON/ADDEN DUM Becky Norton [facility], [facility] 7 17:00:46 Renewal of prescrip tion Completed 201209/15/2013 RECORDED 04/30/19 13 2:37PM BY TEA HANDY MA, JERELATI ON/ADDEN DUM Michelle Aziza [place], [facility] 6 11:38:22 Active or passive immuniza tion Completed 200909/15/2013 RECORDED 03/01/19 10 9:56AM BY PILLO Masters NP, OFFICE VISIT Michelle Aziza [place], [facility] 6 11:38:22 Examinat ion for suspecte d mental disorder Completed 201109/15/2013 RECORDED 10/31/19 12 2:41PM BY NICKY WOODS ON/ADDEN DUM Michelle Ervin [facility] 6 11:38:22 Pre-surg girish evaluati on Completed 201209/15/2013 IMPRESSI ON: PT IS MEDICALL Y ABLE TO UNDERGO SURGERY, NO ACTIVE ISSUES, IS ABLE TO LAY FLAT AND STILL, EKG NL AND WILL GET LABS; RECORDED 01/28/20 13 1:17PM BY ALEXANDRE AGUILAR MA, NICKY ON/ADDEN DUM Michelle Degutis null, [facility] 6 11:38:22 Tachycar wesley [id number] Completed 201109/15/2013 RECORDED 10/31/19 12 2:42PM BY JEREL WOODSATI ON/ADDEN DUM Michelle Degutis null, [facility] 6 11:38:22 Retentio n of urine 788528948 Completed 201209/15/2013 RECORDED 04/30/19 13 2:37PM BY TEA HANDY MA, NICKY ON/ADDEN DUM Michelle Degutis null, [facility] 6 11:38:22 Vaginiti s and vulvovag initis Completed 201109/15/2013 IMPRESSI ON: VAGINAL ITCHING AFTER COMPLETI NG ANTIBIOT ICS; RECORDED 10/31/19 12 2:42PM BY NICKY WOODS ON/ADDEN DUM Michelle Degutis null, [facility] 6 11:38:22 Anemia due to chronic blood loss 039139140 Completed 201109/16/2013 RECORDED 10/31/19 12 2:42PM BY NICKY WOODS ON/ADDEN DUM Michelle Degutis null, [facility] 6 11:38:21 Tobacco user [id number] Completed 201209/16/2013 RECORDED 01/28/20 13 1:17PM BY ALEXANDRE AGUILAR MA, NICKY ON/ADDEN DUM Becky Norton MA null, [facility] 7 17:00:35 Chest pain 54231946 Completed 201109/16/2013 RECORDED 10/31/19 12 2:41PM BY NICKY WOODS ON/ADDEN DUM Michelle Degutis null, [facility] 6 11:38:22 Screenin g for malignan t neoplasm of colon Completed 201209/16/2013 RECORDED 04/30/19 13 2:37PM BY TEA HANDY MA, ANNOTATI ON/ADDEN DUM Michelle rosario, [facility] 6 11:38:22 Divertic ular disease of colon 294477324 Completed 201109/16/2013 STORY: PT WAS SEEN IN OUR OFFICE 11/30/09 FOR RECTAL BLEEDING AND WAS REFERRED TO GI FOR AN EVALUATI ON. THAT EVENING EVERY TIME THE PT ATE SOMETHIN G SHE WOULD BE GOING TO THE BATHROOM TO HAVE A BM THAT WAS FILLED WITH BLOOD. AFTER A FEW TIMES THE PT TOOK HERSELF TO [facility] TO BE EVALUATE D. THE ONLY SX THAT THE PT FELT WAS BLOATING AND CRAMPING EVERYTIM E SHE ATE. PT HAD TO UNDERGO A COLONOSC OPY WITCH SHOWED THAT THE PT HAD BLEEDING COMING FROM THE [place],DESCEN DING, AND TRANSVER SE COLON. PT WAS LATER TRANSFER RED TO [facility] TO BE WATCHED CLOSELY. PT WAS THEN PLACED ON A LIQUID DIET UNTIL THE TIME WHERE SHE COULD TOLERATE SOLID FOOD WITH OUT PASSING A BM THAT WAS BLOODY. MEDICATI ON HAS BEEN RECONSIL ED WITH THE PT AND SHE WILL F/U WITH MGD 12/21/09 .; RECORDED 10/31/19 12 2:41PM BY NICKY WOODS ON/ADDEN DUM Michelle rosario [facility] 6 11:38:21 Hemorrha ge of colon 55451020 Completed 201109/16/2013 STORY: STABLE/ STILL ANEMIC; RECORDED 10/31/19 12 2:41PM BY NICKY WOODS ON/ADDEN TORIE rosario, [facility] 6 11:38:22 Dysuria 89124041 Completed 201109/16/2013 IMPRESSI ON: 3+ LEUKOCYT ES ON UA TODAY, COMPLETE D BACTRIM 2 DAYS AGO, START CIPRO AND SEND CULTURE; RECORDED 10/31/19 12 2:41PM BY NICKY WOODS ON/ADDEN DUM Becky Norton [place] null, [facility] 7 17:01:13 Influenz a vaccine needed [id number] 06 Completed 201209/16/2013 RECORDED 04/30/19 13 2:37PM BY TEA HANDY MA, JERELATI ON/ADDEN DUM Michelle Pacousha rosario, [facility] 6 11:38:22 Follow-u p encounte r Completed 201209/16/2013 RECORDED 04/30/19 13 2:37PM BY TEA HANDY MA, NICKY ON/ADDEN DUM Michelle Pacousha rosario, [facility] 6 11:38:22 Hypo-osm olality and or hyponatr emia 912217558 Completed 201109/16/2013 RECORDED 10/31/19 12 2:41PM BY NICKY WOODS ON/EN DUM Michelle rosario, [facility] 6 11:38:21 Impacted cerumen 03373228 Completed 201209/16/2013 RECORDED 01/28/20 13 1:17PM BY ALEXANDRE AGUILAR MA, NICKY ON/ADDEN TORIE rosario, [facility] 7 17:00:46 Renewal of prescrip tion Completed 201209/16/2013 RECORDED 04/30/19 13 2:37PM BY TEA HANDY MA, NICKY ON/ADDEN DUM Michelle Pacousha rosario, [facility] 6 11:38:22 Active or passive immuniza tion Completed 200909/16/2013 RECORDED 03/01/19 10 9:56AM BY PILLO Masters NP, OFFICE VISIT Michelle rosario, [facility] 6 11:38:22 Examinat ion for suspecte d mental disorder Completed 201109/16/2013 RECORDED 10/31/19 12 2:41PM BY NICKY WOODS ON/ADDEN TORIE Ervin null, [facility] 6 11:38:22 Pre-surg girish hartmanati on Completed 201209/16/2013 IMPRESSI ON: PT IS MEDICALL Y ABLE TO UNDERGO SURGERY, NO ACTIVE ISSUES, IS ABLE TO LAY FLAT AND STILL, EKG NL AND WILL GET LABS; RECORDED 01/28/20 13 1:17PM BY ALEXANDRE AGUILAR MA, ANNOTATI ON/[facility] Degutis null, [facility] 6 11:38:22 Tachycar wesley [id number] Completed 201109/16/2013 RECORDED 10/31/19 12 2:42PM BY NICKY WOODS ON/[facility] Degutis null, [facility] 6 11:38:22 Retentio n of urine 696775115 Completed 201209/16/2013 RECORDED 04/30/19 13 2:37PM BY TEA HANDY MA, ANNOTATI ON/[facility] Degutis null [facility] 6 11:38:22 Vaginiti s and vulvovag initis Completed 201109/16/2013 IMPRESSI ON: VAGINAL ITCHING AFTER COMPLETI NG ANTIBIOT ICS; RECORDED 10/31/19 12 2:42PM BY NICKY WOODS ON/[facility] Degutis null [facility] 6 11:38:22 Dermatit is Completed 09/17/2016 Becky rosario [facility] 7 17:00:48 Dysuria 58281773 Completed 09/17/2016 Becky rosario [facility] 7 17:01:13 Insomnia 237267149 Active Michelle Antonioutedouard null [facility] 6 11:38:21 Advance directiv e discusse d with patient 209426770 Completed 09/17/2016 Becky rosario [facility] 7 17:01:07 Polyp of colon 56509646 Active Michelle Aziza abraham [facility] 6 11:38:21 Chronic low back pain 326602702 Active 2018 Rebeca rosario [facility] 9 14:22:51 Problem Notes None recorded. Procedures Surgical History Date Name Laterality Status Provider Name and Address Organization Details Recorded Time 01/21/20 19 Mini-Cog Test completed Leila Julien MA [facility] 01/20/2019 09:52:44 12/30/19 18 Most Recent Mammogram completed Leila Julien MA [facility] 01/20/2019 09:47:42 12/19/19 18 Mini-Cog Test completed Naheed Veliz [facility] 12/18/2017 13:13:25 12/02/19 17 Fall Risk Assessment completed Becky Norton MA [facility] 12/01/2016 13:22:35 12/02/19 17 Mini-Cog Test completed Becky Norton [facility] 12/01/2016 13:23:31 11/29/19 17 Mammogram both breasts completed Kimmy Yañez [facility] 12/09/2016 14:44:18 10/17/19 17 Date of Last Colonoscopy completed Paola Kendall [facility] 12/09/2016 16:54:35 10/17/19 17 Colonoscopy completed Becky Norton MA [facility] 10/24/2016 11:43:36 03/23/19 16 Fall Risk Assessment completed Becky Norton MA [facility] 03/23/2015 13:55:01 03/23/19 16 Mini-Cog Test completed Becky Norton [facility] 03/23/2015 14:02:26 03/23/19 16 Advanced Care Planning completed Becky Norton MA [facility] 03/23/2015 13:41:44 08/19/19 15 Date of Last Pap Smear completed Michelle Ervni [facility] 03/28/2015 11:40:33 02/23/19 11 Most Recent Bone Density completed Becky Norton [facility] 03/23/2015 14:07:39 02/09/19 08 Appendectomy completed Tea Loretto [facility] 03/02/2014 10:46:37 Imaging Results Imaging Date Name Status LastModified by Organization Details LastModified Time 05/15/2017 electrocardiogram completed Infor mation not available 05/15/2017 12:36:53 06/14/2018 XR, sacrum + coccyx, 2 or more view active [facility] [address] [place], [address], 06/15/2018 15:07:23 06/14/2018 XR, lumbar spine active [facility] [address] [place], [address], 06/15/2018 15:07:23 Procedure Notes None recorded. Medical Equipment None Reported. Allergies Allergen ID Allergen Name Allergen Category Reaction Reaction Severity Criticality Documentation Date Start Date Code Code System Note Provider Name and Address Organization Details Recorded Time 2935 latex environme nt,medica tion rash Not available Not available 08/23/20132012 67822 91 RxNorm Becky Norton [facility] 7 17:00:18 Medications Name Sig Start Date [...] 12/22/19 10 2:51PM BY RICARDO COLE MD, NICKY ON/ DUM; Not Available Not Available Not Available [...] RECORDED 09/22/19 10 3:18PM BY NICKY PEREZ ON/ DUM; Not Available Not Available Not Available [...] 12/30 completed RECORDED 01/01/20 10 3:38PM BY KATIE CHIN MEDICATI ON AUTO-BURKE CTIVATIO N; Not Available [...] Updated DateTime 8 154.94 cm 31.4 kg/m2 61118.4 3 g 98.7 [degF] 96 % 96 % 89 /min 118 mm[Hg] 76 mm[Hg] Becky Norton [facility] 8 11:28:28 Date Recorded Body height Body mass index (BMI) Body weight Heart rate Oxygen saturation Oxygen saturation in Arterial blood by Pulse oximetry Body temperature Systolic blood pressure Diastolic blood pressure Provider Name and Address Organization Details Last Updated DateTime 8 154.94 cm 30.8 kg/m2 58723.5 6 g 94 /min 97 % 97 % 97.5 [degF] 136 mm[Hg] 74 mm[Hg] Jovan Medina [facility] 8 10:41:30 Date Recorded Body height Body mass index (BMI) Body weight Body temperature Heart rate Oxygen saturation Oxygen saturation in Arterial blood by Pulse oximetry Systolic blood pressure Diastolic blood pressure Provider Name and Address Organization Details Last Updated DateTime 8 154.94 cm 30.5 kg/m2 69118.4 7 g 97.2 [degF] 86 /min 96 % 96 % 123 mm[Hg] 72 mm[Hg] Naheed Veliz [facility] 8 12:57:56 Date Recorded Body height Body mass index (BMI) Body weight Heart rate Oxygen saturation Oxygen saturation in Arterial blood by Pulse oximetry Body temperature Systolic blood pressure Diastolic blood pressure Provider Name and Address Organization Details Last Updated DateTime 9 154.94 cm 30.2 kg/m2 41229.7 8 g 92 /min 96 % 96 % 98.4 [degF] 124 mm[Hg] 78 mm[Hg] Ruby Mackey [facility] 9 12:59:19 Date Recorded Body height Body mass index (BMI) Body weight Oxygen saturation Oxygen saturation in Arterial blood by Pulse oximetry Heart rate Body temperature Systolic blood pressure Diastolic blood pressure Provider Name and Address Organization Details Last Updated DateTime 9 154.94 cm 30.7 kg/m2 32392.0 6 g 96 % 96 % 81 /min 98.1 [degF] 119 mm[Hg] 67 mm[Hg] Leila Julien MA [facility] 9 09:56:35 Social History Question Answer Notes LastModified by Organizat ion Details LastModified Time Tobacco Smoking Status Former Smoker ELLIOTT Plascencia, [facility] 09/08/2013 11:26:06 Do You Have An Advance [...] E-cigarettes Or Vape? 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 Never Used Smokeless Tobacco [email or web address] Information not available 01/20/2019 How Much Tobacco Do You Smoke? 1 PPW [email or web address] Information not available 01/20/2019 General Stress Level Low Information not available 03/02/2014 Do You Use Sunscreen Routinely? Yes Information not available 03/23/2015 How Many Years Have You Smoked Tobacco? 15 Information not available 12/18/2017 Sex: Unknown Functional Status Question Answer Note LastModified by ReadWave ion Details LastModified Time Are you able [...] conjugate PCV 13 5 completed Not Available [facility] 02/26/2019 02:21:36 Influenza, split virus, quadrivalent, PF 5 completed Becky Norton [place] [facility] 03/23/2015 14:06:48 Influenza, high-dose, trivalent, PF 7 completed Not Available [facility] 02/26/2019 02:22:21 Novel [id number], all formulations 0 completed Not Available [facility] 08/23/2013 13:38:52 pneumococcal polysaccharide PPV23 0 completed Not Available [facility] 08/23/2013 13:38:52 Influenza, split virus, trivalent, preservative 0 completed Not Available [facility] 08/23/2013 13:38:52 Influenza, split virus, trivalent, preservative 1 completed Not Available [facility] 08/23/2013 13:38:52 Influenza, split virus, trivalent, preservative 2 completed Not Available [facility] 08/23/2013 13:38:52 Influenza, split virus, trivalent, preservative 3 completed Not Available [facility] 08/23/2013 13:38:52 Influenza, high-dose, trivalent, PF 8 completed Not Available [facility] 02/26/2019 02:22:14 Influenza, high-dose, trivalent, PF 9 completed Not Available [facility] 02/26/2019 02:22:09 Past Encounters Encounter ID Performer Location Encounter Start Date Encounter Closed Date Diagnosis/Indication Diagnosis SNOMED-CT Code Diagnosis ICD10 Code Diagnosis Note [id number] Tea Handy Main Office [address] [facility] [address] [place], [place] [address] 09/08/2013 11:14:56 09/08/2013 11:58:13 Essential hypertension 96143651 well controlled Asthma 303674329 followe d by pulm, well controlled on symbicort Anxiety state 658633112 Impacted cerumen 88625247 successful ly removed with ear lavage [id number] [employer] [address] [facility] [place] [address] 03/01/2009 00:00:00 [id number] [employer] [address] [facility] [place] [address] 03/29/2009 00:00:00 [id number] [employer]ce [address] [facility] [place] [address] 09/10/2009 00:00:00 [id number] [employer]ce [address] [facility] [place] [address] 11/13/2009 00:00:00 [id number] [employer] erce [address] [facility] [place] [address] 11/30/2009 00:00:00 [id number] [employer] [address] [facility] [facility],[address] [place] [address] 12/21/2009 00:00:00 [id number] autoEComm erce [address] [facility],[address] [place] [address] 02/11/2010 00:00:00 [id number] autoEComm erce [address] [facility],[address] [place] [address] 05/17/2010 00:00:00 [id number] autoEComm erce [address] [facility],[address] [place] [address] 08/23/2010 00:00:00 [id number] autoEComm erce [address] [facility],[address] [place] [address] 09/04/2010 00:00:00 [id number] autoEComm erce [address] [facility],[address] [place] [address] 11/29/2010 00:00:00 [id number] autoEComm erce [address] [facility],[address] [place], [place] [address] 01/10/2011 00:00:00 [id number] autoEComm erce [address] [facility],[address] [place] [address] 05/02/2011 00:00:00 67751 autoEComm erce [address] [facility],[address] [place] [address] 10/31/2011 00:00:00 [id number] autoEComm erce [address] [facility],[address] [place] [address] 04/29/2012 00:00:00 67231 autoEComm erce [address] [facility],[address] [place] [address] 07/15/2012 00:00:00 [id number] autoEComm erce [address] [facility],[address] [place] [address] 01/27/2013 00:00:00 [id number] [facility] Main Office [address] [address] [place] [address] 09/26/2013 13:41:44 09/26/2013 14:55:33 Dermatitis [id number] candidal dermatitis [id number] [facility] Main Office Count includes the [facility] [address] [place] [address] 03/02/2014 12:39:53 03/02/2014 13:42:38 Essential hypertension 71232982 Hyponatremia 02426229 pt to see Dr Pride regularly/ pt aware that she needs to stop using clorazepat e / see psych referral Anxiety state 419559956 Dysuria 29475884 [id number] Becky Norton [place] Main Office [address] [address] [place] [address] 04/21/2014 14:46:19 04/21/2014 15:48:33 Essential hypertension 28950450 both meds helpful/ Diltiazem and lisinopril Gastroesop hageal reflux disease 632155295 pt on PPI Anxiety state 085165128 Asthma 223138742 019027 Ricardo medellin Main Office [address] [address] [place] [address] 03/23/2015 13:27:48 03/23/2015 14:47:01 Adult health examination 767374371 Z00.00 [facility] 230483934 Z91.81 Advance di rective discussed with patient 035477707 Z71.89 pt will have her brother as health care proxy Essential hypertension 18874970 I10 both meds helpful/ Diltiazem and lisinopril Polyp of colon 02955045 K63.5 pt due for colonoscop y 2016 /tubular adenoma/We iss Asthma 973665256 J45.90 9 Anxiety state 349128972 F41.1 [id number] Ricardo medellin Main Office [address] [address] [place] [address] 10/05/2015 12:46:12 10/05/2015 13:40:50 Essential hypertension 56836024 I10 both meds helpful/ Diltiazem and lisinopril Asthma 828221997 J45.90 9 urged pt to get flu shot soon. Anxiety state 061230011 F41.1 [id number] Ricardo medellin Main Office [address] [address] [place] [address] 06/19/2016 12:55:50 06/19/2016 14:13:50 Fatigue 76035336 R53.83 Abnormal weight loss 267 885678 R63.4 Diarrhea 31060463 R19.7 Nausea 732729920 R11.0 d/w pt to elevate HOB/ cont PPI Impaired f asting glycemia 177640123 R73.01 090514 Ricardo medellin Main Office [address] [address] [place] [address] 10/23/2016 14:30:06 10/23/2016 15:27:24 [id number] Ricardo medellin Main Office [address] [address] [place] [address] 10/31/2016 13:21:48 10/31/2016 14:41:18 Lumbosacral radiculitis 40361713 M54.17 Influenza vaccine needed 8597362162 106 Z23 [id number] Ricardo Carversusana medellin Main Office [address] [address] [place] [address] 12/01/2016 13:04:53 12/01/2016 14:09:38 Adult health examination 999121670 Z00.00 Essential hypertension 15603650 I10 both meds helpful/ Diltiazem and lisinopril Anxiety state 323380586 F41.1 210556 Ricardo Carversusana medellin Main Office [address] [address] [place] [address] 05/15/2017 11:16:16 05/15/2017 12:12:51 Anxiety state 429217478 F41.1 Essential hypertension 33785404 I10 both meds helpful/ Diltiazem and lisinopril Incomplete emptying of urinary bladder 126641625 R39.14 [id number] Maryanne fernandes Main Office [address] [address] [place] [address] 11/13/2017 10:36:20 11/13/2017 11:18:17 Anxiety state 406124182 F41.1 has been on med for 20+ years, she is taking 3.75mg daily, will try to cut the dose in half if possible. f/u in 1 month for wellness visit. Influenza vaccine needed 4615503542 106 Z23 Gastroesop hageal reflux disease 098109595 K21.9 Essential hypertension 96173375 I10 well controlled , continue meds as directed. [id number] Ramon Callahan MD Main Office [address] [address] [place] [address] 12/18/2017 12:40:39 12/18/2017 13:46:58 Adult health examination 921104354 Z00.00 [facility], she will call NUTRIENT MANAGEMENT SPECIALIST for appt Varicella vaccination 68 425841 Z23 Asthma 001386849 J45.90 9 Essential hypertension 74391413 I10 well controlled , continue meds as directed. Family his tory of Hypercholesterolemia 245384443 Z83.49 Anxiety state 339114083 F41.1 has been on med for 20+ years, she is taking 3.75mg daily, will try to cut the dose in half if possible. f/u in 1 month for wellness visit. [id number] Denis Marcos [facility] Main Office [address] [facility] [address] [place] [address] 06/11/2018 12:42:51 06/11/2018 13:40:40 Low back pain 917189497 M54.5 Patient with chronic low back pain, in PT, seeing chiropract or, but wondering if she should be seeing someone else. Will check XR and refer back to [facility], she has seen them for this in the past. continue sx treatment, ibuprofen as needed. Cramp in lower limb 4499 85791 R25.2 Essential hypertension 53337557 I10 well controlled , continue meds as directed. Fatigue 17573969 R53.83 [id number] Denis Marcos [facility] Main Office [address] [facility] [address] [place] [address] 01/20/2019 09:41:15 01/20/2019 10:33:29 Adult health examination 381629176 Z00.00 UTD, she has mammo scheduled, needs to call NUTRIENT MANAGEMENT SPECIALIST. Influenza vaccine needed 0455226834 106 Z23 Impaired f asting glycemia 498482977 R73.01 in June, sugar 125 and she believes she was fasting Hyperlipidemia 21163581 E78.5 Health Concerns Section Related Observation LastModified by Organization Detai ls LastModified Time None Recorded Concern Status LastModified by Organization Details LastModified Time None Recorded Advance Directives Directive Y: Payers Encounter Date Sequence Insurance Name Policy Number Policy Menendez Covered Member ID Menendez Member ID Guarantor Name 05/15/2017 2 [place] [id number] Noris E Isidroki [id number] Noris Chan Hou 05/15/2017 1 [place] Noris E Opajohnki [id number] Noris E Ameya 11/13/2017 2 [place] [id number] Noris E Isidroki [id number] Noris E Ameya 11/13/2017 1 [place] Noris E Isidroki [id number] Noris E Ameya 12/18/2017 2 [place] [id number] Noris E Oparowski [id number] Noris E Oparowski 12/18/2017 1 [place] Noris E Oparowski [id number] Noris E Oparowski 06/11/2018 2 [facility] [id number] Noris E Oparowski [id number] Noris E Oparowski 06/11/2018 1 [place] Noris E Oparowski [id number] 06 Noris E Oparowski 01/20/2019 2 [facility] [id number] Noris E Oparowski [id number] Noris E Oparowski 01/20/2019 1 [place] Noris E Oparowski [id number] 06 Noris E Oparowski Notes Date Note [...] no fever;incomplete emptying of bladder Ricardo rosario [facility] 05/15/2017 12:16:47 11/13/2017 text/html Anxiety/Depressi onRepo rted bypatient.Quality:incr eased anxiety; stress, car trouble Severity:able to maintain relationships Context:major life stressors;family problems Associated Symptoms:no significant weight gain;high irritability;hostility ;anxiety;hypersensitiv ity;anxiety with muscle tension; pt has usp hx of benzo use , > 20 yearsNotes:+ hx nausea and diarrhea, panic attacks etc Maryanne rosario [facility] 11/13/2017 12:41:13 12/18/2017 text/html Medicare Annual Wellness [...] working on it) Ramon Callahan MD [address] [facility] [address], [place], [address], [facility] [place] 12/19/2017 16:52:49 06/11/2018 text/html Generic HPI TemplateReported [...] strengthen legs. DR saw Dr. Miller at [facility]. Was discharged in 2017 due to improvement with PT. 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 Since the fall her back pain is worse. NICOLÁS Fay [address] [facility] [address], [place], [address], [facility] [place] 06/11/2018 13:40:34 01/20/2019 text/html Medicare Annual Wellness [...] states she found a new PCP in [place] but cannot be seen until May. Denis Marcos, [facility] [address] [facility] [address], [place], [address], [facility] 01/20/2019 10:57:40 OBGyn Episode No OBEpisode recorded.
== END 2024-04-05 13:54 | disposition home or self-care (01) ==
PROVIDERS: PCP Family Medicine; Visit Provider Physician Assistant Surgical
DX: I89.0 Lymphedema, not elsewhere classified (principal)
CPT/HCPCS: 99214

== ENCOUNTER → 2024-04-05 13:10 | Outpatient (BNVA) | payer MEDICARE, MEDICAID, SELFPAY | PROVIDERS: PCP Family Medicine; Visit Provider Physician Assistant Surgical | DX: I89.0 Lymphedema, not elsewhere classified (principal) | CPT/HCPCS: 99212 ==

== ENCOUNTER 2024-04-08 13:03 | Outpatient (REF) | payer MEDICARE, MEDICAID, SELFPAY ==
[2024-04-08 15:15] LABS: Appearance Urine Clear; Color Urine Yellow; Glucose Urine UA Negative (Negative); Leukocyte Esterase Urine Trace (Negative); Nitrite Urine Negative (Negative); UMIC TRIGGER UA YES; Urine Blood Negative (Negative); Urine Ketones Negative (Negative); Urine Protein Negative (Neg-Trace)
[2024-04-08 15:36] LABS: Bacteria Urine 1+ (None Seen); Hyaline Casts Urine 0-2 /LPF (0-2); RBC Urine 0-2 /HPF (0-2); WBC Urine 0-5 /HPF (0-5)
[2024-04-08 16:25] LABS: Osmolality Urine 290 mosm/kg (373-1093)
[2024-04-08 16:37] LABS: Creatinine Urine 89.02 mg/dL
== END 2024-04-08 13:04 | disposition home or self-care (01) ==
LOC: HO.LAB 13:03
PROVIDERS: Absent Provider Internal Medicine Hypertension Specialist; PCP Family Medicine; Visit Provider Internal Medicine
DX: E87.1 Hypo-osmolality and hyponatremia (principal); Z79.01 Long term (current) use of anticoagulants
CPT/HCPCS: 81001; 81003; 82570; 83935; 84300; 85610; 99211

== ENCOUNTER 2024-04-08 13:03 | Outpatient (AMB) | payer MEDICARE, MEDICAID, SELFPAY ==
--- NOTE | 2024-04-08 13:19 | MHC.OFFVISCO ---
Intake Intake Visit Reasons: Anticoagulation Allergies Seasonal Allergies Allergy (Mild, Verified 04/08/24 13:04) runny nose latex Allergy (Verified 04/08/24 13:04) rash Medication List - Last Reconciled 04/08/24 by Anabella Otoole RN albuterol sulfate 90 mcg/actuation 2 puffs inhalation Q8H PRN cetirizine (Zyrtec) 10 mg PO DAILY PRN cholecalciferol (vitamin D3) 50 mcg PO DAILY citalopram 20 mg PO DAILY 90 days clonazepam 0.5 mg PO BID PRN diltiazem HCl CD 120 mg PO DAILY 90 days fluticasone propion-salmeterol 500-50 mcg/dose (Wixela Inhub) 1 inh inhalation BID fluticasone propionate 50 mcg/actuation (Flonase Allergy Relief) 1 spray intranasal Q12H 30 days gabapentin 300 mg PO BID lisinopril 10 mg PO DAILY omeprazole 20 mg PO DAILY tamsulosin 0.4 mg PO BEDTIME 90 days warfarin 2 mg See Protocol PO DAILY 30 days Nursing Note INR: 1.9 ALMOST therapeutic range 2.0-3.0 Medications and supplements reviewed *Pt was traveling and just returned from [place] - she walked a little more and diet changes while away *Just had bx on the skin on the top of her nose *Going to lab for urine test from renal *Will be using compression machine on her legs 1 hour / days to improve her circulation Denies any signs and symptoms of bleeding or bruising or clotting. Bleeding, bruising, clotting discussed Nutritional guidance given - avoid greens today, eat orange and reds to help raise the INR Dose: booster dose today 2mg ( 2mg x 2 days this week ) then resume 2mg / 1mg x 6 days F/U INR: 2 weeks Patient verbalizes understanding of instructions given with read back Anti-Coag Initial Assessment Social Hx Patient Tobacco Use Status: Former Tobacco user (20 years quit around age 51 ) Tobacco use type: Cigarette Smoking packs per day: 1.0 alcohol intake: current Alcohol intake frequency: 0-2 drinks per day (about 2 daily with ice ) Cardiovascular Hx: HTN and Other (edma right foot > left foot had dvt ) Lung Disease HX: Asthma, COPD (believe r/t to work exposure and smoking) and 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 Illness/Depression: Yes (anxiety ) Coding Level of Care Code Est Patient Level 1 Diagnoses Current use of anticoagulant therapy Z79.01 Assessment & Plan Assessment & Plan (1) Current use of anticoagulant therapy: Code(s): Z79.01 - USP (current) use of anticoagulants Category: Medical
[2024-04-08 14:25] LABS: Prothrombin Time Whole Bld POC 22.6 sec (11.1-13.5); ~PT, ~INR - Anti Coag Clinic 1.9 (0.9-1.1)
--- OUTSIDE RECORDS SUMMARY | 2024-04-08 15:05 | XMS_ITS | Clinical Summary ---
Author Organization [facility] Address [address] [place] [address] Care Team Providers Care Skin Toggler Name Role Phone Community, Pcp Primary Care [...] VACCINE Completed 04/21/2014, 03/01/19 10 Care Teams Skin Toggler Relationship Specialty Start Date End Date Community, Pcp PCP - General Internal Medicine 09/23/19
--- OUTSIDE RECORDS SUMMARY | 2024-04-08 15:05 | XMS_ITS | Encounter Summary ---
Author Organization [facility] Address [address] [place] [address] Care Team Providers Care Passenger Locomotive Engineer Name Role Phone Syd Dhillon Primary Care Provider Un available Gennaro Guillaume MD Primary Care Provider Yadira Jordan, Pcp Primary Care Provider Unavailabl e Reason for Visit * Reason Comments E-prescribe Rx Request Encounter Details Date Type Department Care Team Description 05/05/2017 Refill Pulmonology [address] [place] [phone] Aquiles Weems MD E-prescribe Rx Request Social History Tobacco Use Types Packs/Day Years Used Date Smoking Tobacco: Former Cigarettes 1 15 Smokeless Tobacco: Never Sex Assigned at Date Recorded Not on file documented as of this encounter Plan of Treatment Not on file documented as of this encounter Visit Diagnoses Not on filedocumented in this encounter Care Teams Passenger Locomotive Engineer Relationship Specialty Start Date End Date Syd Dhillon PCP - General Internal Medicine 02/20/17 9 Gennaro Guillaume MD PCP - General Internal Medicine 12/16/18 09/22/19 Nikki, Pcp PCP - General Internal Medicine 09/23/19 documented as of this encounter
--- OUTSIDE RECORDS SUMMARY | 2024-04-08 15:05 | XMS_ITS | Encounter Summary ---
Author Organization [facility] Address [address] [place] [address] Care Team Providers Care Senior Design Engineer Name Role Phone Gennaro Guillaume MD Primary Care Provider Yadira Jordan, Pcp Primary Care Provider Adriana petersen Encounter Details Date Type Department Care Team Description 05/23/2019 Oil Well Perforator Operator Report Medical Records [address] [place] [address] Aquiles Weems MD Social History Tobacco Use [...] on filedocumented in this encounter Care Teams Senior Design Engineer Relationship Specialty Start Date End Date Gennaro Guillaume MD PCP - General Internal Medicine 12/16/18 09/22/19 Juan Francisco Jordan PCP - General Internal Medicine 09/23/19 documented as of this encounter
--- OUTSIDE RECORDS SUMMARY | 2024-04-08 15:05 | XMS_ITS | Encounter Summary ---
Author Organization [facility] Address [facility] [place] [address] Care Team Providers Care Web Operations Specialist Name Role Phone Gennaro Guillaume MD Primary Care Provider Yadira estrada [facility], Pcp Primary Care Provider Adriana e Reason for Visit * Reason Onset Date Comments Orders Call 07/21/2019 Encounter Details Date Type Department Care Team Description 07/21/2019 Telephone Medicine/Pediatrics - [address] [id number] Gennaro Guillaume MD Orders Call Social History [...] listed in the contacts info Tel # [phone] * Telephone Encounter - Melanie Horowitz - 07/21/2019 11:30 AM EDT Patient needs order faxed to who. Please provide phone number and fax * Telephone Encounter - Jackie Chan - 07/21/2019 11:01 AM EDT Pt needs the order faxed over to them from 07/18 referral - pt has appt on 07/24 - fax [phone] documented in this encounter Plan of Treatment Not on file documented as of this encounter Visit Diagnoses Not on filedocumented in this encounter Care Teams Web Operations Specialist Relationship Specialty Start Date End Date Gennaro Guillaume MD PCP - General Internal Medicine 12/16/18 09/22/19 [facility], Pcp PCP - General Internal Medicine 09/23/19 documented as of this encounter
--- OUTSIDE RECORDS SUMMARY | 2024-04-08 15:05 | XMS_ITS | Data Portability ---
Author Organization [facility], Main Office Address [address] [place] [address] Care Team Providers Care Devops Consultant Name Role Phone ABDIEL ORTEGA Animal Nutrition Teacher GRACIELA MILLER Urologist ABDIEL LOZANO Director Of Consulting Services URBAN PRIDE Drawing Frame Tender HUMBERTO SINGH Bilingual Sales Representative [phone] RICARDO HUGHES Chiropractor [facility] Physical Therapist DENIS MARCOS Primary Care Provider [phone] Assessment No assessment recorded. Plan of Treatment Reminders Order Date Submit Date Provider Last Modified By Organization Details Last Modified Time Details Appointments None recorded. Lab HbA1c (hemoglob in A1c), blood 2018 019 [facility] (Centralized Electronic Ordering - All Locations), Patient Can Go To The Location Of Their Choice, [id number] 0 09:38:13 BMP, serum or plasma 2018 019 [employer] [facility] (Centralized Electronic Ordering - All Locations), Patient Can Go To The Location Of Their Choice, [id number] 0 09:38:13 lipid panel, serum 2018 019 [employer] [facility] (Centralized Electronic Ordering - All Locations), Patient Can Go To The Location Of Their Choice, [id number] 0 09:38:13 magnesium , serum or plasma [...] 15:24:52 CMP, serum or plasma 2017 018 [facility] - [facility]), Patient Can Go To The Location Of Their Choice, 11:56:02 Referral spine center referral - patient in 2017, MRI showed crowding L2 nerve root on the left, having worsenign sx of sciatic pain, low back pain, leg pains bilateral ly. 2018 [facility], [address] [place] [address], [place], [address], 17:23:40 physical therapist referral - At risk for falling 2017 [facility], [address] [place], [address], 8 16:26:43 urologist referral - pt has not seen urology in 2 years or more and wants to have consultat ion w/ urologist rather than CAR WORKER 2017 018 scott Crane MD, [address], [place], [address], 8 13:35:13 Procedures None recorded. Surgeries None recorded. Imaging XR, lumbar spine - chronic low back pain, worsening s/p fall in february [id number] 019 [facility], [address] [place] [address], [address], 9 10:29:46 XR, sacrum + coccyx - s/p fall in february, hx low back arthritis . pain worsening 2018 019 [facility], [address] [place] [address], [address], 9 10:29:44 Medication Orders clorazepa te dipotassi um 3.75 mg tablet 2017 018 [id number], [address] [place], [address], 8 11:18:58 tamsulosi n 0.4 mg capsule 2017 018 [id number], [address] [place], [address], 8 13:01:14 clorazepa te dipotassi um 3.75 mg tablet 2017 018 [id number], [address] [place], [address], 8 12:05:21 Patient TargetsNo targets recorded. Patient Instructions Encounter Date Encounter Id Patient Instructions Last Modified By Organization Details Last Modified Time 11/13/2017 [id number] anxiety disorder: care instructions [email or web address] Not available 11/13/2017 11:18:44 call or return for worsening or concerns. [email or web address] Not available 11/13/2017 11:13:19 I have reviewed the note and agree with the assessment and plan of care. dolores Not available 11/13/2017 12:41:01 12/18/2017 [id number] preventing falls: care instructions [email or web address] Not available [...] medication. [email or web address] Not available 12/18/2017 13:20:44 06/11/2018 [id number] low back pain: exercises [email or web address] Not available 06/11/2018 13:24:20 call or return for worsening or concerns. [email or web address] Not available 06/11/2018 13:22:08 01/20/2019 [id number] preventing falls: care instructions [email or web address] Not available 01/20/2019 10:20:59 call or return for woraening or concerns. [email or web address] Not available 01/20/2019 10:20:56 Reviewed the risks and benefits of residential opiate use, OUD discussed with the patient. Reviewed the risks and benefits of other non-opioid pain therapies. Reviewed caution with driving, fall risk, treatment for constipation. Patient verbalizes understanding of risk and benefits, and of OUD. [email or web address] Not available 01/20/2019 09:46:37 Reason for Referral Urologist Referral for Incom plete emptying of urinary bladder pt has not seen urology in 2 years or more and wants to have consultation w/ urologist rather than CAR WORKER Referring Physician: Ricardo Dhillon, Internal Medicine, Encounter [...] ce of an acute proces s. WSN: [id number] Dictat ed By: Delonte Barrios MD Dictat ed Date/T erlinda: 10:26 a Review ed By: Delonte Barrios MD Signed By: Delonte Barrios MD Signed Date/T erlinda: 10:26 am Transc ribed By: PASTORA Transc ribed Date/T erlinda: 10:24 am Patien t Class: Outpat ient [facility] ([facility] [address] [place], [address], 06/15/2018 15:07:23 06/15/19 19 06/14/2018 XR, lumba [...] ce of an acute proces s. WSN: [id number] Dictat ed By: Delonte Barrios MD Dictat ed Date/T erlinda: 10:26 a Review ed By: Delonte Barrios MD Signed By: Delonte Barrios MD Signed Date/T erlinda: 10:26 am Transc ribed By: PASTORA Transc ribed Date/T erlinda: 10:24 am Patien t Class: Outpat ient [facility] ([facility]) [address] [place], [address], 06/15/2018 15:07:23 Result Notes None recorded. Problems Name Problem SNOMED Code Status Onset Date Resolution Date Notes Provider Name and Address Organization Details Recorded Time Anemia due to chronic blood loss 163602757 Completed 201108/23/2013 RECORDED 10/31/19 12 2:42PM BY NICKY WOODS ON/ADDEN DUM Michelle Ervin [facility] 6 11:38:21 Anxiety state 460176368 Active 2012 Becky rosario [facility] 7 17:00:55 Tobacco user 792808154 Completed 201208/23/2013 RECORDED 01/28/20 13 1:17PM BY ALEXANDRE AGUILAR MA, ANNOTATI ON/ADDEN DUM [facility] 7 17:00:35 History of clinical finding in subject [id number] Completed 201209/17/2016 RECORDED 01/28/20 13 1:17PM BY ALEXANDRE AGUILAR MA, ANNOTATI ON/ADDEN DUM Becky rosario [facility] 7 17:01:11 Asthma 689997180 Active 2012 Becky rosario [facility] 7 17:00:52 Screenin g for malignan t neoplasm of breast Completed 201410/31/2016 Dr. Susy Ortega, negative Becky rosario [facility] 7 13:35:13 Screenin g for malignan t neoplasm of breast Completed 201108/23/2013 RECORDED 10/31/19 12 2:41PM BY JEREL WOODSATI ON/ADDEN DUM Becky rosario, [facility] 7 13:35:13 Chest pain 07168461 Completed 201108/23/2013 RECORDED 10/31/19 12 2:41PM BY JEREL WOODSATI ON/ADDEN DUM Michelle Degutedouard null, [facility] 6 11:38:22 Screenin g for malignan t neoplasm of colon Completed 201208/23/2013 RECORDED 04/30/19 13 2:37PM BY TEA HANDY MA, ANNOTATI ON/ADDEN DUM Michelle Degutedouard null, [facility] 6 11:38:22 Divertic ular disease of colon 621635626 Completed 201108/23/2013 STORY: PT WAS SEEN IN OUR OFFICE 11/30/09 FOR RECTAL BLEEDING AND WAS REFERRED TO GI FOR AN EVALUATI ON. THAT EVENING EVERY TIME THE PT ATE SOMETHIN G SHE WOULD BE GOING TO THE BATHROOM TO HAVE A BM THAT WAS FILLED WITH BLOOD. AFTER A FEW TIMES THE PT TOOK HERSELF TO [facility] TO BE EVALUATE D. THE ONLY [...] JEREL WOODSATI ON/ADDEN DUM Michelle Antoniousha null, [facility] 6 11:38:21 Hemorrha ge of colon 28769178 Completed 201108/23/2013 STORY: STABLE/ STILL ANEMIC; RECORDED 10/31/19 12 2:41PM BY NICKY WOODS ON/ADDEN DUM Michelle rosario [facility] 6 11:38:22 Divertic ulitis of colon 100692911 Active 2011 Becky rosario [facility] 7 17:00:37 Dysuria 96691440 Completed 201108/23/2013 IMPRESSI ON: 3+ LEUKOCYT ES ON UA TODAY, COMPLETE D BACTRIM 2 DAYS AGO, START CIPRO AND SEND CULTURE; RECORDED 10/31/19 12 2:41PM BY NICKY WOODS ON/ADDEN DUM Becky rosario [facility] 7 17:01:13 Gastroes ophageal reflux disease 385887172 Active 2012 Becky rosario [facility] 7 17:00:59 [facility] l hyperten julisa 23310434 Active 2012 Becky rosario [facility] 7 17:01:17 Essentia l hyperten julisa 40041302 Completed 201108/23/2013 RECORDED 10/31/19 12 2:41PM BY NICKY WOODS ON/ADDEN DUM Becky rosario [facility] 7 17:01:17 External hemorrho ids 96895924 Active 2012 Becky rosario [facility] 7 17:01:03 Influenz a vaccine needed [id number] 06 Completed 201208/23/2013 RECORDED 04/30/19 13 2:37PM BY TEA HANDY MA, ANNOTATI ON/ADDEN DUM Michelle rosario [facility] 6 11:38:22 Follow-u p encounte r Completed 201208/23/2013 RECORDED 04/30/19 13 2:37PM BY TEA HANDY MA, ANNOTATI ON/ADDEN DUM Michelle Degutis null, [facility] 6 11:38:22 Tobacco user 475226879 Active 2012 Becky rosario, [facility] 7 17:00:35 Adult health examinat ion Completed 201209/17/2016 STORY: COLONOSC OPY DUE SS/TUBUL AR ADENOMA; RECORDED 01/28/20 13 1:58PM BY RICARDO COLE MD, OFFICE VISIT Becky rosario, [facility] 7 17:01:05 Adult health examinat ion Completed 201208/23/2013 RECORDED 04/30/19 13 2:37PM BY TEA HANDY MA, ANNOTATI ON/ADDEN DUM Becky rosario, [facility] 7 17:01:05 Hearing loss 46892387 Active 2012 Becky rosario, [facility] 7 17:00:40 History of Malignan t melanoma 741495637 Active 2013 Becky rosario, [facility] 7 17:00:45 Hypo-osm olality and or hyponatr emia 607517267 Completed 201108/23/2013 RECORDED 10/31/19 12 2:41PM BY NICKY WOODS ON/ADDEN DUM Michelle Degutedouard null, [facility] 6 11:38:21 Impacted cerumen 43665860 Completed 201208/23/2013 RECORDED 01/28/20 13 1:17PM BY ALEXANDRE AGUILAR MA, ANNOTATI ON/ADDEN DUM Becky rosario, [facility] 7 17:00:46 Irritabl e bowel syndrome 89491217 Active 2012 Becky rosario [facility] 7 17:00:31 Renewal of prescrip tion Completed 201208/23/2013 RECORDED 04/30/19 13 2:37PM BY TEA HANDY MA, ANNOTATI ON/ADDEN DUM Michelle Degutis null, [facility] 6 11:38:22 Malignan t melanoma of skin 52323587 Active 2013 Becky rosario, [facility] 7 17:01:28 Active or passive immuniza tion Completed 200908/23/2013 RECORDED 03/01/19 10 9:56AM BY PILLO Masters NP, OFFICE VISIT Michelle rosario [facility] 6 11:38:22 Examinat ion for suspecte d mental disorder Completed 201108/23/2013 RECORDED 10/31/19 12 2:41PM BY NICKY WOODS ON/ADDEN DUM Michelle Degutis null [facility] 6 11:38:22 Pre-surg girish evaluati on Completed 201208/23/2013 IMPRESSI ON: PT IS MEDICALL Y ABLE TO UNDERGO SURGERY, NO ACTIVE ISSUES, IS ABLE TO LAY FLAT AND STILL, EKG NL AND WILL GET LABS; RECORDED 01/28/20 13 1:17PM BY ALEXANDRE AGUILAR MA, NICKY ON/ADDEN DUM Michelle Degutis [facility] 6 11:38:22 Tachycar wesley 7554530 Completed 201108/23/2013 RECORDED 10/31/19 12 2:42PM BY NICKY WOODS ON/ADDEN DUM Michelle Degutis null [facility] 6 11:38:22 Retentio n of urine 803542965 Completed 201208/23/2013 RECORDED 04/30/19 13 2:37PM BY TEA HANDY MA, ANNOTATI ON/ADDEN DUM Michelle Degutis [facility] 6 11:38:22 Urinary tract infectio us disease 31210076 Active 2013 Becky rosario [facility] 7 17:01:20 Vaginiti s and vulvovag initis Completed 201108/23/2013 IMPRESSI ON: VAGINAL ITCHING AFTER COMPLETI NG ANTIBIOT ICS; RECORDED 10/31/19 12 2:42PM BY NICKY WOODS ON/ADDEN DUM Michelle Degutis [facility] 6 11:38:22 Impacted cerumen 70358722 Completed 09/17/2016 Becky rosario [facility] 7 17:00:46 Hyponatr emia 17981427 Completed 09/04/2017 Dilshad Hall MD [address], [place], [address] 8 06:00:03 Anemia due to chronic blood loss 345007421 Completed 201109/15/2013 RECORDED 10/31/19 12 2:42PM BY NICKY WOODS ON/ADDEN DUM Michelle Degutis [facility] 6 11:38:21 Tobacco user 881784607 Completed 201209/15/2013 RECORDED 01/28/20 13 1:17PM BY ALEXANDRE AGUILAR MA, ANNOTATI ON/ADDEN DUM Becky rosario [facility] 7 17:00:35 Chest pain 21905863 Completed 201109/15/2013 RECORDED 10/31/19 12 2:41PM BY NICKY WOODS ON/ADDEN DUM Michelle Degutis [facility] 6 11:38:22 Screenin g for malignan t neoplasm of colon Completed 201209/15/2013 RECORDED 04/30/19 13 2:37PM BY TEA HANDY MA, ANNOTATI ON/ADDEN DUM Michelle Degutis [facility] 6 11:38:22 Divertic ular disease of colon 230156103 Completed 201109/15/2013 STORY: PT WAS SEEN IN OUR OFFICE 11/30/09 FOR RECTAL BLEEDING AND WAS REFERRED TO GI FOR AN EVALUATI ON. THAT EVENING EVERY TIME THE PT ATE SOMETHIN G SHE WOULD BE GOING TO THE BATHROOM TO HAVE A BM THAT WAS FILLED WITH BLOOD. AFTER A FEW TIMES THE PT TOOK HERSELF TO [facility] TO BE EVALUATE D. THE ONLY [...] 2:41PM BY NICKY WOODS ON/ADDEN TORIE rosario [facility] 6 11:38:21 Hemorrha ge of colon 89210086 Completed 201109/15/2013 STORY: STABLE/ STILL ANEMIC; RECORDED 10/31/19 12 2:41PM BY NICKY WOODS ON/ADDEN TORIE rosario [facility] 6 11:38:22 Dysuria 63869019 Completed 201109/15/2013 IMPRESSI ON: 3+ LEUKOCYT ES ON UA TODAY, COMPLETE D BACTRIM 2 DAYS AGO, START CIPRO AND SEND CULTURE; RECORDED 10/31/19 12 2:41PM BY NICKY WOODS ON/ADDEN DUM Becky rosario [facility] 7 17:01:13 Influenz a vaccine needed [id number] 06 Completed 201209/15/2013 RECORDED 04/30/19 13 2:37PM BY TEA HANDY MA, JERELATI ON/ADDEN DUM Michelle Ervin [facility], [facility] 6 11:38:22 Follow-u p encounte r Completed 201209/15/2013 RECORDED 04/30/19 13 2:37PM BY TEA HANDY MA, ANNOTATI ON/ADDEN DUM Michelle Aziza [facility], [facility] 6 11:38:22 Hypo-osm olality and or hyponatr emia 348959611 Completed 201109/15/2013 RECORDED 10/31/19 12 2:41PM BY NICKY WOODS ON/ADDEN DUM Michelle Aziza [facility], [facility] 6 11:38:21 Impacted cerumen 23799479 Completed 201209/15/2013 RECORDED 01/28/20 13 1:17PM BY ALEXANDRE AGUILAR MA, JERELATI ON/ADDEN DUM Becky Norton [facility], [facility] 7 17:00:46 Renewal of prescrip tion Completed 201209/15/2013 RECORDED 04/30/19 13 2:37PM BY TEA HANDY MA, JERELATI ON/ADDEN DUM Michelle Aziza [facility], [facility] 6 11:38:22 Active or passive immuniza tion Completed 200909/15/2013 RECORDED 03/01/19 10 9:56AM BY PILLO Masters NP, OFFICE VISIT Michelle Aziza [facility], [facility] 6 11:38:22 Examinat ion for suspecte d mental disorder Completed 201109/15/2013 RECORDED 10/31/19 12 2:41PM BY NICKY WOODS ON/ADDEN DUM Michelle Ervin [facility] 6 11:38:22 Pre-surg girish evaluati on Completed 201209/15/2013 IMPRESSI ON: PT IS MEDICALL Y ABLE TO UNDERGO SURGERY, NO ACTIVE ISSUES, IS ABLE TO LAY FLAT AND STILL, EKG NL AND WILL GET LABS; RECORDED 01/28/20 13 1:17PM BY ALEXANDRE AGUILAR MA, NICKY ON/ADDEN DUM Michelle Degutis null, [facility] 6 11:38:22 Tachycar wesley 1150945 Completed 201109/15/2013 RECORDED 10/31/19 12 2:42PM BY JEREL WOODSATI ON/ADDEN DUM Michelle Degutis null, [facility] 6 11:38:22 Retentio n of urine 702050478 Completed 201209/15/2013 RECORDED 04/30/19 13 2:37PM BY TEA HANDY MA, NICKY ON/ADDEN DUM Michelle Degutis null, [facility] 6 11:38:22 Vaginiti s and vulvovag initis Completed 201109/15/2013 IMPRESSI ON: VAGINAL ITCHING AFTER COMPLETI NG ANTIBIOT ICS; RECORDED 10/31/19 12 2:42PM BY NICKY WOODS ON/ADDEN DUM Michelle Degutis null, [facility] 6 11:38:22 Anemia due to chronic blood loss 742767180 Completed 201109/16/2013 RECORDED 10/31/19 12 2:42PM BY NICKY WOODS ON/ADDEN DUM Michelle Degutis null, [facility] 6 11:38:21 Tobacco user 408049598 Completed 201209/16/2013 RECORDED 01/28/20 13 1:17PM BY ALEXANDRE AGUILAR MA, NICKY ON/ADDEN DUM Becky Norton [place] null, [facility] 7 17:00:35 Chest pain 35595708 Completed 201109/16/2013 RECORDED 10/31/19 12 2:41PM BY NICKY WOODS ON/ADDEN DUM Michelle Degutis null, [facility] 6 11:38:22 Screenin g for malignan t neoplasm of colon Completed 201209/16/2013 RECORDED 04/30/19 13 2:37PM BY TEA HANDY MA, ANNOTATI ON/ADDEN DUM Michelle rosario, [facility] 6 11:38:22 Divertic ular disease of colon 940706280 Completed 201109/16/2013 STORY: PT WAS SEEN IN OUR OFFICE 11/30/09 FOR RECTAL BLEEDING AND WAS REFERRED TO GI FOR AN EVALUATI ON. THAT EVENING EVERY TIME THE PT ATE SOMETHIN G SHE WOULD BE GOING TO THE BATHROOM TO HAVE A BM THAT WAS FILLED WITH BLOOD. AFTER A FEW TIMES THE PT TOOK HERSELF TO [facility] TO BE EVALUATE D. THE ONLY [...] BY NICKY WOODS ON/ADDEN DUM Michelle rosario [facility] 6 11:38:21 Hemorrha ge of colon 61099186 Completed 201109/16/2013 STORY: STABLE/ STILL ANEMIC; RECORDED 10/31/19 12 2:41PM BY NICKY WOODS ON/ADDEN TORIE rosario, [facility] 6 11:38:22 Dysuria 87717064 Completed 201109/16/2013 IMPRESSI ON: 3+ LEUKOCYT ES ON UA TODAY, COMPLETE D BACTRIM 2 DAYS AGO, START CIPRO AND SEND CULTURE; RECORDED 10/31/19 12 2:41PM BY NICKY WOODS ON/ADDEN DUM Becky Norton [place] null, [facility] 7 17:01:13 Influenz a vaccine needed [id number] 06 Completed 201209/16/2013 RECORDED 04/30/19 13 2:37PM BY TEA HANDY MA, JERELATI ON/ADDEN DUM Michelle Pacousha rosario, [facility] 6 11:38:22 Follow-u p encounte r Completed 201209/16/2013 RECORDED 04/30/19 13 2:37PM BY TEA HANDY MA, NICKY ON/ADDEN DUM Michelle Pacousha rosario, [facility] 6 11:38:22 Hypo-osm olality and or hyponatr emia 722152296 Completed 201109/16/2013 RECORDED 10/31/19 12 2:41PM BY NICKY WOODS ON/EN DUM Michelle rosario, [facility] 6 11:38:21 Impacted cerumen 51482968 Completed 201209/16/2013 RECORDED 01/28/20 13 1:17PM BY ALEXANDRE AGUILAR MA, NICKY ON/ADDEN TORIE rosario, [facility] 7 17:00:46 Renewal of prescrip tion Completed 201209/16/2013 RECORDED 04/30/19 13 2:37PM BY TEA HANDY MA, NICKY ON/ADDEN DUM Michelle Pacousha rosario, [facility] 6 11:38:22 Active or passive immuniza tion Completed 200909/16/2013 RECORDED 03/01/19 10 9:56AM BY PILLO Masters NP, OFFICE VISIT Michelle rosario, [facility] 6 11:38:22 Examinat ion for suspecte d mental disorder Completed 201109/16/2013 RECORDED 10/31/19 12 2:41PM BY NICKY WOODS ON/ADDEN TORIE Ervin null, [facility] 6 11:38:22 Pre-surg girish hartmanati on Completed 201209/16/2013 IMPRESSI ON: PT IS MEDICALL Y ABLE TO UNDERGO SURGERY, NO ACTIVE ISSUES, IS ABLE TO LAY FLAT AND STILL, EKG NL AND WILL GET LABS; RECORDED 01/28/20 13 1:17PM BY ALEXANDRE AGUILAR MA, ANNOTATI ON/[facility] Degutis null, [facility] 6 11:38:22 Tachycar wesley [id number] Completed 201109/16/2013 RECORDED 10/31/19 12 2:42PM BY NICKY WOODS ON/[facility] Degutis null, [facility] 6 11:38:22 Retentio n of urine 737754064 Completed 201209/16/2013 RECORDED 04/30/19 13 2:37PM BY TEA HANDY MA, ANNOTATI ON/[facility] Degutis null [facility] 6 11:38:22 Vaginiti s and vulvovag initis Completed 201109/16/2013 IMPRESSI ON: VAGINAL ITCHING AFTER COMPLETI NG ANTIBIOT ICS; RECORDED 10/31/19 12 2:42PM BY NICKY WOODS ON/[facility] Degutis null [facility] 6 11:38:22 Dermatit is Completed 09/17/2016 Becky rosario [facility] 7 17:00:48 Dysuria 20487418 Completed 09/17/2016 Becky rosario [facility] 7 17:01:13 Insomnia 354215093 Active Michelle Antonioutedouard null [facility] 6 11:38:21 Advance directiv e discusse d with patient 266997572 Completed 09/17/2016 Becky rosario [facility] 7 17:01:07 Polyp of colon 32505165 Active Michelle Aziza [facility] 6 11:38:21 Chronic low back pain 903732430 Active 2018 Rebeca rosario [facility] 9 14:22:51 Problem Notes None recorded. Procedures Surgical History Date Name Laterality Status Provider Name and Address Organization Details Recorded Time 01/21/20 19 Mini-Cog Test completed Leila Julien MA [facility] 01/20/2019 09:52:44 12/30/19 18 Most Recent Mammogram completed Leila Julien MA [facility] 01/20/2019 09:47:42 12/19/19 18 Mini-Cog Test completed Naheed Veliz [facility] 12/18/2017 13:13:25 12/02/19 17 Fall Risk Assessment completed Becky Norton [place] [facility] 12/01/2016 13:22:35 12/02/19 17 Mini-Cog Test completed Becky Norton [facility] 12/01/2016 13:23:31 11/29/19 17 Mammogram both breasts completed Kimmy Yañez [facility] 12/09/2016 14:44:18 10/17/19 17 Date of Last Colonoscopy completed Paola Kendall [facility] 12/09/2016 16:54:35 10/17/19 17 Colonoscopy completed Becky Norton [facility] 10/24/2016 11:43:36 03/23/19 16 Fall Risk Assessment completed Becky Norton [facility] 03/23/2015 13:55:01 03/23/19 16 Mini-Cog Test completed Becky Norton [facility] 03/23/2015 14:02:26 03/23/19 16 Advanced Care Planning completed Becky Norton [place] [facility] 03/23/2015 13:41:44 08/19/19 15 Date of Last Pap Smear completed Michelle Ervin [facility] 03/28/2015 11:40:33 02/23/19 11 Most Recent Bone Density completed Becky Norton [facility] 03/23/2015 14:07:39 02/09/19 08 Appendectomy completed Tea [place] [facility] 03/02/2014 10:46:37 Imaging Results Imaging Date Name Status LastModified by Organization Details LastModified Time 05/15/2017 electrocardiogram completed Infor mation not available 05/15/2017 12:36:53 06/14/2018 XR, sacrum + coccyx, 2 or more view active [facility] ([facility] [address] [place], [address], 06/15/2018 15:07:23 06/14/2018 XR, lumbar spine active [facility] [address] [place], [address], 06/15/2018 15:07:23 Procedure Notes None recorded. Medical Equipment None Reported. Allergies Allergen ID Allergen Name Allergen Category Reaction Reaction Severity Criticality Documentation Date Start Date Code Code System Note Provider Name and Address Organization Details Recorded Time 2935 latex environme nt,medica tion rash Not available Not available 08/23/20132012 68274 91 RxNorm Becky Norton [facility] 7 17:00:18 Medications Name Sig [...] Updated DateTime 8 154.94 cm 31.4 kg/m2 92537.4 3 g 98.7 [degF] 96 % 96 % 89 /min 118 mm[Hg] 76 mm[Hg] Becky Norton [facility] 8 11:28:28 Date Recorded Body height Body mass index (BMI) Body weight Heart rate Oxygen saturation Oxygen saturation in Arterial blood by Pulse oximetry Body temperature Systolic blood pressure Diastolic blood pressure Provider Name and Address Organization Details Last Updated DateTime 8 154.94 cm 30.8 kg/m2 06905.5 6 g 94 /min 97 % 97 % 97.5 [degF] 136 mm[Hg] 74 mm[Hg] Jovan Medina [facility] 8 10:41:30 Date Recorded Body height Body mass index (BMI) Body weight Body temperature Heart rate Oxygen saturation Oxygen saturation in Arterial blood by Pulse oximetry Systolic blood pressure Diastolic blood pressure Provider Name and Address Organization Details Last Updated DateTime 8 154.94 cm 30.5 kg/m2 91273.4 7 g 97.2 [degF] 86 /min 96 % 96 % 123 mm[Hg] 72 mm[Hg] Naheed Veliz [facility] [place] 8 12:57:56 Date Recorded Body height Body mass index (BMI) Body weight Heart rate Oxygen saturation Oxygen saturation in Arterial blood by Pulse oximetry Body temperature Systolic blood pressure Diastolic blood pressure Provider Name and Address Organization Details Last Updated DateTime 9 154.94 cm 30.2 kg/m2 34694.7 8 g 92 /min 96 % 96 % 98.4 [degF] 124 mm[Hg] 78 mm[Hg] Ruby Mackey [facility] [place] 9 12:59:19 Date Recorded Body height Body mass index (BMI) Body weight Oxygen saturation Oxygen saturation in Arterial blood by Pulse oximetry Heart rate Body temperature Systolic blood pressure Diastolic blood pressure Provider Name and Address Organization Details Last Updated DateTime 9 154.94 cm 30.7 kg/m2 97713.0 6 g 96 % 96 % 81 /min 98.1 [degF] 119 mm[Hg] 67 mm[Hg] Leila Julien MA [facility] 9 09:56:35 Social History Question Answer Notes LastModified by Organizat ion Details LastModified Time Tobacco Smoking Status Former Smoker ELLIOTT Plascencia, [facility] [place] 09/08/2013 11:26:06 Do You Have An [...] E-cigarettes Or Vape? 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 Never Used Smokeless Tobacco [email or web address] Information not available 01/20/2019 How Much Tobacco Do You Smoke? 1 PPW [email or web address] Information not available 01/20/2019 General Stress Level Low Information not available 03/02/2014 Do You Use Sunscreen Routinely? Yes Information not available 03/23/2015 How Many Years Have You Smoked Tobacco? 15 Information not available 12/18/2017 Sex: Unknown Functional Status Question Answer Note LastModified by Amiato ion Details LastModified Time Are you able [...] conjugate PCV 13 5 completed Not Available [facility] 02/26/2019 02:21:36 Influenza, split virus, quadrivalent, PF 5 completed Becky Norton MA [facility] 03/23/2015 14:06:48 Influenza, high-dose, trivalent, PF 7 completed Not Available [facility] 02/26/2019 02:22:21 Novel Juuccqzod-[id number], all formulations 0 completed Not Available [facility] 08/23/2013 13:38:52 pneumococcal polysaccharide PPV23 0 completed Not Available [facility] 08/23/2013 13:38:52 Influenza, split virus, trivalent, preservative 0 completed Not Available [facility] 08/23/2013 13:38:52 Influenza, split virus, trivalent, preservative 1 completed Not Available [facility] 08/23/2013 13:38:52 Influenza, split virus, trivalent, preservative 2 completed Not Available [facility] 08/23/2013 13:38:52 Influenza, split virus, trivalent, preservative 3 completed Not Available [facility] 08/23/2013 13:38:52 Influenza, high-dose, trivalent, PF 8 completed Not Available [facility] 02/26/2019 02:22:14 Influenza, high-dose, trivalent, PF 9 completed Not Available [facility] 02/26/2019 02:22:09 Past Encounters Encounter ID Performer Location Encounter Start Date Encounter Closed Date Diagnosis/Indication Diagnosis SNOMED-CT Code Diagnosis ICD10 Code Diagnosis Note [id number] Tea Handy Main Office [address] [facility] [address] [place], [place] [address] 09/08/2013 11:14:56 09/08/2013 11:58:13 Essential hypertension 98390773 well controlled Asthma 762860589 followe d by pulm, well controlled on symbicort Anxiety state 275619937 Impacted cerumen 79492223 successful ly removed with ear lavage [id number] [facility] [facility] [address] [facility] [place] [address] 03/01/2009 00:00:00 [id number] [employer] [address] [facility] [place] [address] 03/29/2009 00:00:00 [id number] [employer] [facility] [address] [facility] [place] [address] 09/10/2009 00:00:00 [id number] [employer] erce [address] [facility] [place] [address] 11/13/2009 00:00:00 [id number] [employer] erce [address] [facility] [place] [address] 11/30/2009 00:00:00 [id number] [employer] [address] [facility] [place] [address] 12/21/2009 00:00:00 [id number] [employer]ce [address] [facility] [place] [address] 02/11/2010 00:00:00 [id number] [employer] er[facility] [address] [facility] [place] [address] 05/17/2010 00:00:00 [id number] [employer] erce [address] [facility] [place] [address] 08/23/2010 00:00:00 [id number] [employer] erce [address] [facility] [place] [address] 09/04/2010 00:00:00 [id number] auto[employer]Comm 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 [address] [facility] [place] [address] 11/29/2010 00:00:00 [id number] [employer]ce [address] [facility] [place], [place] [address] 01/10/2011 00:00:00 [id number] [employer] erce [address] [facility] [place] [address] 05/02/2011 00:00:00 [id number] [employer] erce [address] [facility] [place] [address] 10/31/2011 00:00:00 [id number] auto[employer]Comm erce [address] [facility] [place] [address] 04/29/2012 00:00:00 [id number] auto[employer] erce [address] [facility] [place] [address] 07/15/2012 00:00:00 [id number] [employer] erce [address] [facility] [place] [address] 01/27/2013 00:00:00 [id number] [facility] Main Office [address] [address] [place] [address] 09/26/2013 13:41:44 09/26/2013 14:55:33 Dermatitis 101630677 candidal dermatitis [id number] [facility] Main Office [facility] [address] [place] [address] 03/02/2014 12:39:53 03/02/2014 13:42:38 Essential hypertension 61795364 Hyponatremia 55295875 pt to see Dr Pride regularly/ pt aware that she needs to stop using clorazepat e / see psych referral Anxiety state 338426009 Dysuria 99408534 [id number] Becky Norton [place] Main Office [address] [address] [place] [address] 04/21/2014 14:46:19 04/21/2014 15:48:33 Essential hypertension 07879621 both meds helpful/ Diltiazem and lisinopril Gastroesop hageal reflux disease 982060384 pt on PPI Anxiety state 033381158 Asthma 447929896 [id number] Ricardo medellin Main Office [address] [address] [place] [address] 03/23/2015 13:27:48 03/23/2015 14:47:01 Adult health examination 353635480 Z00.00 At [facility] ed risk for falls 610362355 Z91.81 Advance di rective discussed with patient 331858795 Z71.89 pt will have her brother as health care proxy Essential hypertension 59043142 I10 both meds helpful/ Diltiazem and lisinopril Polyp of colon 48007115 K63.5 pt due for colonoscop y 2016 /tubular adenoma/We iss Asthma 020526842 J45.90 9 Anxiety state 963660893 F41.1 [id number] Ricardo medellin Main Office [address] [address] [place] [address] 10/05/2015 12:46:12 10/05/2015 13:40:50 Essential hypertension 48590429 I10 both meds helpful/ Diltiazem and lisinopril Asthma 680444840 J45.90 9 urged pt to get flu shot soon. Anxiety state 479500925 F41.1 [id number] Ricardo medellin Main Office [address] [address] [place] [address] 06/19/2016 12:55:50 06/19/2016 14:13:50 Fatigue 73962923 R53.83 Abnormal weight loss 267 661194 R63.4 Diarrhea 82380756 R19.7 Nausea 911848733 R11.0 d/w pt to elevate HOB/ cont PPI Impaired f asting glycemia 161610017 R73.01 [id number] Ricardo medellin Main Office [address] [address] [place] [address] 10/23/2016 14:30:06 10/23/2016 15:27:24 [id number] Ricardo medellin Main Office [address] [address] [place] [address] 10/31/2016 13:21:48 10/31/2016 14:41:18 Lumbosacral radiculitis 01226563 M54.17 Influenza vaccine needed 6488245305 106 Z23 [id number] Ricardo Carversusana medellin Main Office [address] [address] [place] [address] 12/01/2016 13:04:53 12/01/2016 14:09:38 Adult health examination 092913164 Z00.00 Essential hypertension 50844370 I10 both meds helpful/ Diltiazem and lisinopril Anxiety state 214599033 F41.1 [id number] Ricardo Carversusana medellin Main Office [address] [address] [place] [address] 05/15/2017 11:16:16 05/15/2017 12:12:51 Anxiety state 457856278 F41.1 Essential hypertension 24137556 I10 both meds helpful/ Diltiazem and lisinopril Incomplete emptying of urinary bladder 318588142 R39.14 [id number] Maryanne fernandes Main Office [address] [address] [place] [address] 11/13/2017 10:36:20 11/13/2017 11:18:17 Anxiety state 238796469 F41.1 has been on med for 20+ years, she is taking 3.75mg daily, will try to cut the dose in half if possible. f/u in 1 month for wellness visit. Influenza vaccine needed 6189232293 106 Z23 Gastroesop hageal reflux disease 477508529 K21.9 Essential hypertension 85767864 I10 well controlled , continue meds as directed. [id number] Ramon Callahan MD Main Office [address] [address] [place] [address] 12/18/2017 12:40:39 12/18/2017 13:46:58 Adult health examination 732660085 Z00.00 [facility], she will call [facility] [employer]ELER OPERATOR for appt Varicella vaccination 68 425892 Z23 Asthma 017777300 J45.90 9 Essential hypertension 63222949 I10 well controlled , continue meds as directed. Family his tory of Hypercholesterolemia 912428365 Z83.49 Anxiety state 880103671 F41.1 has been on med for 20+ years, she is taking 3.75mg daily, will try to cut the dose in half if possible. f/u in 1 month for wellness visit. [id number] Denis Marcos [facility] Main Office [address] [facility] [address] [place] [address] 06/11/2018 12:42:51 06/11/2018 13:40:40 Low back pain 534936490 M54.5 Patient with chronic low back pain, in PT, seeing chiropract or, but wondering if she should be seeing someone else. Will check XR and refer back to [facility], she has seen them for this in the past. continue sx treatment, ibuprofen as needed. Cramp in lower limb 4499 96763 R25.2 Essential hypertension 97851813 I10 well controlled , continue meds as directed. Fatigue 05909066 R53.83 [id number] Denis Marcos [facility] Main Office [address] [facility] [address] [place] [address] 01/20/2019 09:41:15 01/20/2019 10:33:29 Adult health examination 971597393 Z00.00 UTD, she has mammo scheduled, needs to call [facility] OPERATOR. Influenza vaccine needed 0650450182 106 Z23 Impaired f asting glycemia 402370092 R73.01 in June, sugar 125 and she believes she was fasting Hyperlipidemia 76124093 E78.5 Health Concerns Section Related Observation LastModified by Organization Detai ls LastModified Time None Recorded Concern Status LastModified by Organization Details LastModified Time None Recorded Advance Directives Directive Y: Payers Encounter Date Sequence Insurance Name Policy Number Policy Menendez Covered Member ID Menendez Member ID Guarantor Name 05/15/2017 2 [place] [id number] Noris E Isidroki [id number] 05/15/2017 1 [place] Noris E Opajohnki [id number] Noris E Ameya 11/13/2017 2 [place] [id number] Noris E Isidroki [id number] Noris E Ameya 11/13/2017 1 [place] Noris E Isidroki [id number] Noris E Ameya 12/18/2017 2 [place] [id number] Noris E Oparowski [id number] Noris E Oparowski 12/18/2017 1 [place] Noris E Oparowski [id number] Noris E Oparowski 06/11/2018 2 [facility] [id number] Noris E Oparowski [id number] Noris E Oparowski 06/11/2018 1 [place] Noris E Oparowski [id number] Noris E Oparowski 01/20/2019 2 [facility] [id number] Noris E Oparowski [id number] Noris E Oparowski 01/20/2019 1 [place] Noris E Oparowski [id number] 06 Noris E Oparowski Notes Date Note Type Note Provider Name and Address Organization Details Recorded Time 05/15/2017 text/html Anxiety/Depressi onRepo rted bypatient.Quality:incr eased anxiety; pt reports that sthe plans to return to her pschologist Dr Valdes this year Severity:able to maintain relationships Associated Symptoms:no significant weight gain; mood good; pt has residential hx of benzo use , > 20 [...] no fever;incomplete emptying of bladder Ricardo rosario [facility] 05/15/2017 12:16:47 11/13/2017 text/html Anxiety/Depressi onRepo rted bypatient.Quality:incr eased anxiety; stress, car trouble Severity:able to maintain relationships Context:major life stressors;family problems Associated Symptoms:no significant weight gain;high irritability;hostility ;anxiety;hypersensitiv ity;anxiety with muscle tension; pt has residential hx of benzo use , > 20 yearsNotes:+ hx nausea and diarrhea, panic attacks etc Maryanne rosario [facility] 11/13/2017 12:41:13 12/18/2017 text/html Medicare Annual Wellness [...] working on it) Ramon Callahan MD [address] [facility] [address], [place], [address], [facility] [place] 12/19/2017 16:52:49 06/11/2018 text/html Generic HPI [...] strengthen legs. DR saw Dr. Miller at [facility]. Was discharged in 2017 due to improvement with PT. 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 Since the fall her back pain is worse. NICOLÁS Fay [address] [facility] [address], [place], [address], [facility] [place] 06/11/2018 13:40:34 01/20/2019 text/html Medicare Annual [...] states she found a new PCP in [place] but cannot be seen until May. Denis Marcos, [facility] [address] [facility] [address], [place], [address], [facility] [place] 01/20/2019 10:57:40 OBGyn Episode No OBEpisode recorded.
--- OUTSIDE RECORDS SUMMARY | 2024-04-08 15:05 | XMS_ITS | Encounter Summary ---
Author Organization [facility] Address [address] [place] [address] Care Team Providers Care Telephone Operator Receptionist Name Role Phone Gennaro Guillaume MD Primary Care Provider Yadira [facility], Pcp Primary Care Provider Unavaildannie e Reason for Visit * Reason Onset Date Comments medication problems 07/01/2019 Encounter Details Date Type Department Care Team Description 07/01/2019 Telephone Medicine/Pediatrics - [address] [phone] Gennaro Guillaume MD medication problems Social History Tobacco Use Types Packs/Day Years [...] Telephone Encounter - Gennaro Guillaume MD - 07/02/2019 11:22 AM EDT Script sent * Telephone Encounter - Cassie Bertin - 07/01/2019 9:59 AM EDT Who is calling? A pharmacist: Pharmacy: [facility] - Pharmacist Name: FAX - Pharmacy Name of the medication: fluoxetine (PROZAC) 20 MG tablet What is the specific problem or interaction? Alternative Requested: Ins wants capsules instead If the patient is having a problem with taking the med - how long has the problem been going on? N/A documented in this encounter Plan of Treatment Not on file documented as of this encounter Visit Diagnoses Diagnosis Anxiety- Primary Anxiety state, unspecified documented in this encounter Care Teams Telephone Operator Receptionist Relationship Specialty Start Date End Date Gennaro Guillaume MD PCP - General Internal Medicine 12/16/18 09/22/19 [facility] PCP - General Internal Medicine 09/23/19 documented as of this encounter
== END 2024-04-08 13:24 | disposition home or self-care (01) ==
LOC: HO.ACS 13:03
PROVIDERS: PCP Family Medicine; Visit Provider Internal Medicine
DX: Z79.01 Long term (current) use of anticoagulants (principal)

== ENCOUNTER 2024-04-12 10:11 | Outpatient (AMB) | payer MEDICARE, MEDICAID, SELFPAY ==
[2024-04-12 10:19] VITALS: BP 118/60; PULSE 102; O2SAT 96; BMI 29.7
--- NOTE | 2024-04-12 10:19 | HO.NEPHOV ---
Vital Signs 04/12/24 10:19 Height 5 ft 1 in Weight 157 lb BMI 29.7 BP 118/60 Blood Pressure Location Rt brachial Position Sitting Pulse 102 H Pulse Source Pulse Oximeter Pulse Oximetry (%) 96 Oxygen Delivery Method Room Air Intake Visit Reasons: Follow up 4 weeks/ LVM Concert Or Lecture Hall Manager Required: No Accompanied by: Self / Same As Patient Allergies Seasonal Allergies Allergy (Mild, Verified 04/12/24 10:21) runny nose latex Allergy (Verified 04/12/24 10:21) rash Medication List - Last Reconciled 04/12/24 by Rupesh Isaac MD albuterol sulfate 90 mcg/actuation 2 puffs inhalation Q8H PRN cetirizine (Zyrtec) 10 mg PO DAILY PRN cholecalciferol (vitamin D3) 50 mcg PO DAILY citalopram 20 mg PO DAILY 90 days clonazepam 0.5 mg PO BID PRN diltiazem HCl CD 120 mg PO DAILY 90 days fluticasone propion-salmeterol 500-50 mcg/dose (Wixela Inhub) 1 inh inhalation BID fluticasone propionate 50 mcg/actuation (Flonase Allergy Relief) 1 spray intranasal Q12H 30 days gabapentin 300 mg PO BID omeprazole 20 mg PO DAILY tamsulosin 0.4 mg PO BEDTIME 90 days warfarin 2 mg See Protocol PO DAILY 30 days HPI Comments Details: 83-year-old woman with history of hypertension referred for hyponatremia. She has had mild asymptomatic hyponatremia for the last few years. She is on citalopram 20 mg lisinopril 10 mg and gabapentin twice a day. She admits to drinking plenty of water. Other labs were reviewed Few years ago serum sodium was at 01:25 millimoles. Current serum sodium was 128. Usually she is in the low 130s to high 120s. [facility] Medical History Swelling of both lower extremities Pulmonary emboli (~01/2022) Skin cancer History of COVID-19 Essential hypertension Chronic allergic rhinitis Hyponatremia Asthma-COPD overlap syndrome Surgical History History of esophagogastroduodenoscopy (EGD) History of colonoscopy Family History Mother Breast cancer Father Prostate CA Stroke Social History Household Members: None Housing: House Housing Other:: mobile home- friend to be moving in Alcohol intake: current Alcohol intake frequency: 0-2 drinks per day (about 2 daily with ice ) Patient Tobacco Use Status: Former Tobacco user (20 years quit around age 51 ) Tobacco use type: Cigarette Cigarette Packs Per Day: 1.0 Years Smoked: 10 years e-Cigarette/Vaping Use: Never Used Second Hand Smoke Exposure: No service: No Current occupational status: retired 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 Lungs entry equal no rales. Heart S1-S2 heard no gallop or rub. Abdomen soft nontender. Neuro alert awake oriented. No asterixis. Extremities no edema. Results Reviewed Nephrology Results: Hgb 11.8 g/dl (12.0-16.0) L 03/16/24 WBC 7.9 X10*3/uL (4.8-10.8) 03/16/24 Plt Count 297 X10*3/uL (160-400) 03/16/24 Sodium 130 mmol/L (135-145) L 03/16/24 Potassium 4.1 mmol/L (3.3-5.1) 03/16/24 Chloride 99 mmol/L (96-108) 03/16/24 Carbon Dioxide 25 mmol/L (22-29) 03/16/24 BUN 6 mg/dL (9-16) L 03/16/24 Creatinine 0.70 mg/dL (0.5-1.4) 03/16/24 Calcium 8.3 mg/dL (8.4-10.2) L 03/16/24 Urine Protein Negative mg/dL (Neg-Trace) 04/08/24 Urine Creatinine 89.02 mg/dL 04/08/24 Assessment & Plan Assessment & Plan (1) Hyponatremia: Code(s): E87.1 - Hypo-osmolality and hyponatremia Category: Medical Plan Clinically she appears euvolemic. She probably has euvolemic hyponatremia. The decreased free water clearance may be due to the use of SSRIs. Other contributing factors would include use of both lisinopril and gabapentin. She has a history of COPD. This could be another contributing factor for non osmotic ADH release. Recommendation Limit oral free water intake to 1 L per 24 hours. Goal is to maintain serum sodium more than 130 millimoles. Change Lisinopril to Losartan 25 mg QD Orders: Orders Basic Metabolic Panel 3 Months E87.1 - Hypo-osmolality and hyponatremia Medications: New losartan 25 mg PO DAILY 90 tabs 1RF Coding Level of Care Code Est Pt Level 4 (98206) Diagnoses Hyponatremia E87.1
--- OUTSIDE RECORDS SUMMARY | 2024-04-12 12:05 | XMS_ITS | Encounter Summary ---
Author Organization [facility] Address [address] [place] [address] Care Team Providers Care Drapery Hemmer Automatic Name Role Phone Gennaro Guillaume MD Primary Care Provider Yadira [facility], Pcp Primary Care Provider Unavaildannie e Reason for Visit * Reason Onset Date Comments medication problems 07/01/2019 Encounter Details Date Type Department Care Team Description 07/01/2019 Telephone Medicine/Pediatrics - [address] [phone] Gennaro Guillaume MD medication problems Social History [...] EDT Who is calling? A pharmacist: Pharmacy: [facility] - Pharmacist Name: FAX - [...] unspecified documented in this encounter Care Teams Drapery Hemmer Automatic Relationship Specialty Start Date End Date Gennaro Guillaume MD PCP - General Internal Medicine 12/16/18 09/22/19 [facility] PCP - General Internal Medicine 09/23/19 documented as of this encounter
--- OUTSIDE RECORDS SUMMARY | 2024-04-12 12:05 | XMS_ITS | Encounter Summary ---
Author Organization [facility] Address [address] [place] [address] Care Team Providers Care Fisher Pot Name Role Phone Syd Dhillon Primary Care Provider Un available Gennaro Guillaume MD Primary Care Provider Susyva sean Jordan, Pcp Primary Care Provider Adriana petersen Encounter Details Date Type Department Care Team Description 02/27/2017 Release of Information Medical Records [address] [place] [id number] Abstract, Provider Social History Tobacco Use Types Packs/Day Years Used Date Smoking Tobacco: Former Cigarettes 1 15 Smokeless Tobacco: Never Sex Assigned at Date Recorded Not on file documented as of this encounter Plan of Treatment Not on file documented as of this encounter Visit Diagnoses Not on filedocumented in this encounter Care Teams Fisher Pot Relationship Specialty Start Date End Date Syd Dhillon PCP - General Internal Medicine 02/20/17 9 Gennaro Guillaume MD PCP - General Internal Medicine 12/16/18 09/22/19 [facility], Pcp PCP - General Internal Medicine 09/23/19 documented as of this encounter
--- OUTSIDE RECORDS SUMMARY | 2024-04-12 12:05 | XMS_ITS | Encounter Summary ---
Author Organization [facility] Address [address] [place] [address] Care Team Providers Care Spooling Supervisor Name Role Phone Gennaro Guillaume MD [facility] Primary Care Provider Adriana e Reason for Visit * Reason Onset Date Comments Appointment-Internal Referral 08/08/2019 en docrinology Encounter Details Date Type Department Care Team Description 08/08/2019 Telephone Medicine/Pediatrics - [address] [address] Gennaro Guillaume MD Appointment-Internal Referral (endocrinology) Social [...] on filedocumented in this encounter Care Teams Spooling Supervisor Relationship Specialty Start Date End Date Gennaro Gulilaume MD PCP - General Internal Medicine 12/16/18 09/22/19 [facility], Pcp PCP - General Internal Medicine 09/23/19 documented as of this encounter
--- OUTSIDE RECORDS SUMMARY | 2024-04-12 12:05 | XMS_ITS | Encounter Summary ---
Author Organization [facility] Address [facility] [place] [address] Care Team Providers Care Bereavement Coordinator Name Role Phone Gennaro Guillaume MD Primary Care Provider Yadira estrada [facility], Pcp Primary Care Provider Adriana e Reason for Visit * Reason Onset Date Comments Orders Call 07/21/2019 Encounter Details Date Type Department Care Team Description 07/21/2019 Telephone Medicine/Pediatrics - [address] [id number] Gennaro Guillaume MD Orders Call Social History [...] listed in the contacts info Tel # [phone] * Telephone Encounter - Melanie Horowitz - 07/21/2019 11:30 AM EDT Patient needs order faxed to who. Please provide phone number and fax * Telephone Encounter - Jackie Chan - 07/21/2019 11:01 AM EDT Pt needs the order faxed over to them from 07/18 referral - pt has appt on 07/24 - fax [phone] documented in this encounter Plan of Treatment Not on file documented as of this encounter Visit Diagnoses Not on filedocumented in this encounter Care Teams Bereavement Coordinator Relationship Specialty Start Date End Date Gennaro Guillaume MD PCP - General Internal Medicine 12/16/18 09/22/19 [facility], Pcp PCP - General Internal Medicine 09/23/19 documented as of this encounter
--- OUTSIDE RECORDS SUMMARY | 2024-04-12 12:05 | XMS_ITS | Data Portability ---
Author Organization [facility], Main Office Address [address] [place] [address] Care Team Providers Care Air Conditioning Technician Name Role Phone ABDIEL ORTEGA Pusher Runner GRACIELA MILLER Urologist ABDIEL LOZANO Packing Line Operator URBAN PRIDE Sugar Laboratory Assistant HUMBERTO SINGH Identification Printing Machine Setter RICARDO HUGHES Chiropractor [phone] [facility] Physical Therapist DENIS MARCOS Primary Care Provider [phone] Assessment No assessment recorded. Plan of Treatment Reminders Order Date Submit Date Provider Last Modified By Organization Details Last Modified Time Details Appointments None recorded. Lab HbA1c (hemoglob in A1c), blood 2018 019 [facility] (Centralized Electronic Ordering - All Locations), Patient Can Go To The Location Of Their Choice, [id number] 0 09:38:13 BMP, serum or plasma 2018 019 [facility] (Centralized Electronic Ordering - All Locations), Patient Can Go To The Location Of Their Choice, [address] 0 09:38:13 lipid panel, serum 2018 019 [employer] (Centralized Electronic Ordering - All Locations), Patient Can Go To The Location Of Their Choice, [address] 0 09:38:13 magnesium , serum or plasma [...] 15:24:52 CMP, serum or plasma 2017 018 [facility] (Centralized Electronic Ordering - All Locations), Patient Can Go To The Location Of Their Choice, 11:56:02 Referral spine center referral - patient in 2017, MRI showed crowding L2 nerve root on the left, having worsenign sx of sciatic pain, low back pain, leg pains bilateral ly. 2018 isaías [facility], [address] [place] [address], [place], [address], 17:23:40 physical therapist referral - At [facility] for falling 2017 [facility], [address] [place], [address], 8 16:26:43 urologist referral - pt has not seen urology in 2 years or more and wants to have consultat ion w/ urologist rather than PATIENT RESOURCE SPECIALIST 2017 018 scott Crane MD, [address], [place], [address], 8 13:35:13 Procedures None recorded. Surgeries None recorded. Imaging XR, lumbar spine - chronic low back pain, worsening s/p fall in february [id number] 019 [facility], [address] [place] [address], [address], 9 10:29:46 XR, sacrum + coccyx - s/p fall in february, hx low back arthritis . pain worsening 2018 019 [facility], [address] [place] [address], [address], 9 10:29:44 Medication Orders clorazepa te dipotassi um 3.75 mg tablet 2017 018 [id number], [address] [place], [address], 8 11:18:58 tamsulosi n 0.4 mg capsule 2017 018 [facility], [address] [place], [address], 8 13:01:14 clorazepa te dipotassi um 3.75 mg tablet 2017 018 [id number], [address] [place], [address], 8 12:05:21 Patient TargetsNo targets recorded. Patient Instructions Encounter Date Encounter Id Patient Instructions Last Modified By Organization Details Last Modified Time 11/13/2017 [id number] anxiety disorder: care instructions [email or web address] Not available 11/13/2017 11:18:44 call or return for worsening or concerns. [email or web address] Not available 11/13/2017 11:13:19 I have reviewed the note and agree with the assessment and plan of care. dolores Not available 11/13/2017 12:41:01 12/18/2017 [id number] preventing falls: care instructions [email or web address] Not available [...] medication. [email or web address] Not available 12/18/2017 13:20:44 06/11/2018 [id number] low back pain: exercises jthabet Not available 06/11/2018 13:24:20 call or return for worsening or concerns. [email or web address] Not available 06/11/2018 13:22:08 01/20/2019 [id number] preventing falls: care instructions [email or web address] Not available 01/20/2019 10:20:59 call or return for woraening or concerns. [email or web address] Not available 01/20/2019 10:20:56 Reviewed the risks and benefits of terminal gauger opiate use, OUD discussed with the patient. Reviewed the risks and benefits of other non-opioid pain therapies. Reviewed caution with driving, fall risk, treatment for constipation. Patient verbalizes understanding of risk and benefits, and of OUD. [email or web address] Not available 01/20/2019 09:46:37 Reason for Referral Urologist Referral for Incom plete emptying of urinary bladder pt has not seen urology in 2 years or more and wants to have consultation w/ urologist rather than PATIENT RESOURCE SPECIALIST Referring Physician: Ricardo Dhillon, Internal Medicine, Encounter [...] ce of an acute proces s. WSN: [id number] Dictat ed By: Delonte Barrios MD Dictat ed Date/T erlinda: 10:26 a Review ed By: Delonte Barrios MD Signed By: Delonte Barrios MD Signed Date/T erlinda: 10:26 am Transc ribed By: PASTORA Transc ribed Date/T erlinda: 10:24 am Patien t Class: Outpat ient [facility] (Outpt Imaging) [address] [place], [address], 06/15/2018 15:07:23 06/15/19 19 06/14/2018 XR, lumba [...] ce of an acute proces s. WSN: [id number] Dictat ed By: Delonte Barrios MD Dictat ed Date/T erlinda: 10:26 a Review ed By: Delonte Barrios MD Signed By: Delonte Barrios MD Signed Date/T erlinda: 10:26 am Transc ribed By: PASTORA Transc ribed Date/T erlinda: 10:24 am Patien t Class: Outpat ient [facility] (Outpt Imaging) [address] [place], [address], 06/15/2018 15:07:23 Result Notes None recorded. Problems Name Problem SNOMED Code Status Onset Date Resolution Date Notes Provider Name and Address Organization Details Recorded Time Anemia due to chronic blood loss 802704499 Completed 201108/23/2013 RECORDED 10/31/19 12 2:42PM BY NICKY WOODS ON/ADDEN DUM Michelle Ervin abraham [facility] 6 11:38:21 Anxiety state 662861077 Active 2012 Becky rosario [facility] 7 17:00:55 Tobacco user [id number] Completed 201208/23/2013 RECORDED 01/28/20 13 1:17PM BY ALEXANDRE AGUILAR MA, ANNOTATI ON/ADDEN DUM Becky rosario [facility] 7 17:00:35 History of clinical finding in subject 421296155 Completed 201209/17/2016 RECORDED 01/28/20 13 1:17PM BY ALEXANDRE AGUILAR MA, ANNOTATI ON/ADDEN DUM Becky rosario [facility] 7 17:01:11 Asthma 461782908 Active 2012 Becky rosario [facility] 7 17:00:52 Screenin g for malignan t neoplasm of breast Completed 201410/31/2016 Dr. Susy Ortega, negative Becky rosario [facility] 7 13:35:13 Screenin g for malignan t neoplasm of breast Completed 201108/23/2013 RECORDED 10/31/19 12 2:41PM BY JEREL WOODSATI ON/ADDEN DUM Becky rosario, [facility] 7 13:35:13 Chest pain 42086657 Completed 201108/23/2013 RECORDED 10/31/19 12 2:41PM BY JEREL WOODSATI ON/ADDEN DUM Michelle Degutedouard null, [facility] 6 11:38:22 Screenin g for malignan t neoplasm of colon Completed 201208/23/2013 RECORDED 04/30/19 13 2:37PM BY TEA HANDY MA, ANNOTATI ON/ADDEN DUM Michelle Degutedouard null, [facility] 6 11:38:22 Divertic ular disease of colon 551520773 Completed 201108/23/2013 STORY: PT WAS SEEN IN OUR OFFICE 11/30/09 FOR RECTAL BLEEDING AND WAS REFERRED TO GI FOR AN EVALUATI ON. THAT EVENING EVERY TIME THE PT ATE SOMETHIN G SHE WOULD BE GOING TO THE BATHROOM TO HAVE A BM THAT WAS FILLED WITH BLOOD. AFTER A FEW TIMES THE PT [facility]. THE ONLY SX THAT THE PT FELT WAS BLOATING AND CRAMPING EVERYTIM E SHE ATE. PT HAD TO UNDERGO A COLONOSC OPY WITCH SHOWED THAT THE PT HAD BLEEDING COMING FROM THE [facility],DESCEN DING, AND TRANSVER SE COLON. PT WAS LATER TRANSFER RED [place] [facility] [place]SE[place]. PT WAS THEN PLACED ON A LIQUID DIET UNTIL THE TIME WHERE SHE COULD TOLERATE SOLID FOOD WITH OUT PASSING A BM THAT WAS BLOODY. MEDICATI ON HAS BEEN RECONSIL ED WITH THE PT AND SHE WILL F/U WITH MGD 12/21/09 .; RECORDED 10/31/19 12 2:41PM BY JEREL WOODSATI ON/ADDEN DUM Michelle Antoniousha null, [facility] 6 11:38:21 Hemorrha ge of colon 12622296 Completed 201108/23/2013 STORY: STABLE/ STILL ANEMIC; RECORDED 10/31/19 12 2:41PM BY NICKY WOODS ON/ADDEN DUM Michelle rosario [facility] 6 11:38:22 Divertic ulitis of colon 975847738 Active 2011 Becky rosario [facility] 7 17:00:37 Dysuria 54084210 Completed 201108/23/2013 IMPRESSI ON: 3+ LEUKOCYT ES ON UA TODAY, COMPLETE D BACTRIM 2 DAYS AGO, START CIPRO AND SEND CULTURE; RECORDED 10/31/19 12 2:41PM BY NICKY WOODS ON/ADDEN DUM Becky rosario [facility] 7 17:01:13 Gastroes ophageal reflux disease 623973932 Active 2012 Becky rosario [facility] 7 17:00:59 [facility] julisa 54373135 Active 2012 Becky rosario [facility] 7 17:01:17 Essentia l hyperten julisa 76141646 Completed 201108/23/2013 RECORDED 10/31/19 12 2:41PM BY NICKY WOODS ON/ADDEN DUM Becky rosario [facility] 7 17:01:17 External hemorrho ids 89415375 Active 2012 Becky rosario [facility] 7 17:01:03 Influenz a vaccine needed [id number] 06 Completed 201208/23/2013 RECORDED 04/30/19 13 2:37PM BY TEA HANDY MA, ANNOTATI ON/ADDEN DUM Michelle rosario [facility] 6 11:38:22 Follow-u p encounte r Completed 201208/23/2013 RECORDED 04/30/19 13 2:37PM BY TEA HANDY MA, ANNOTATI ON/ADDEN DUM Michelle Degutis null, [facility] 6 11:38:22 Tobacco user 129543968 Active 2012 Becky rosario, [facility] 7 17:00:35 Adult health examinat ion Completed 201209/17/2016 STORY: COLONOSC OPY DUE SS/TUBUL AR ADENOMA; RECORDED 01/28/20 13 1:58PM BY RICARDO COLE MD, OFFICE VISIT Becky rosario, [facility] 7 17:01:05 Adult health examinat ion Completed 201208/23/2013 RECORDED 04/30/19 13 2:37PM BY TEA HANDY MA, ANNOTATI ON/ADDEN DUM Becky rosario, [facility] 7 17:01:05 Hearing loss 06482909 Active 2012 Becky rosario, [facility] 7 17:00:40 History of Malignan t melanoma 232986575 Active 2013 Becky rosario, [facility] 7 17:00:45 Hypo-osm olality and or hyponatr emia 268779031 Completed 201108/23/2013 RECORDED 10/31/19 12 2:41PM BY NICKY WOODS ON/ADDEN DUM Michelle Degutedouard null, [facility] 6 11:38:21 Impacted cerumen 85334991 Completed 201208/23/2013 RECORDED 01/28/20 13 1:17PM BY ALEXANDRE AGUILAR MA, ANNOTATI ON/ADDEN DUM Becky rosario, [facility] 7 17:00:46 Irritabl e bowel syndrome 71031966 Active 2012 Becky rosario [facility] 7 17:00:31 Renewal of prescrip tion Completed 201208/23/2013 RECORDED 04/30/19 13 2:37PM BY TEA HANDY MA, ANNOTATI ON/ADDEN DUM Michelle Degutis null, [facility] 6 11:38:22 Malignan t melanoma of skin 53390245 Active 2013 Becky rosario, [facility] 7 17:01:28 Active or passive immuniza tion Completed 200908/23/2013 RECORDED 03/01/19 10 9:56AM BY PILLO Masters NP, OFFICE VISIT Michelle rosario [facility] 6 11:38:22 Examinat ion for suspecte d mental disorder Completed 201108/23/2013 RECORDED 10/31/19 12 2:41PM BY NICKY WOODS ON/ADDEN DUM Michelle Degutis null [facility] 6 11:38:22 Pre-surg girish evaluati on Completed 201208/23/2013 IMPRESSI ON: PT IS MEDICALL Y ABLE TO UNDERGO SURGERY, NO ACTIVE ISSUES, IS ABLE TO LAY FLAT AND STILL, EKG NL AND WILL GET LABS; RECORDED 01/28/20 13 1:17PM BY ALEXANDRE AGUILAR MA, NICKY ON/ADDEN DUM Michelle Degutis abraham [facility] 6 11:38:22 Tachycar wesley [id number] Completed 201108/23/2013 RECORDED 10/31/19 12 2:42PM BY NICKY WOODS ON/ADDEN DUM Michelle Degutis null [facility] 6 11:38:22 Retentio n of urine 265961505 Completed 201208/23/2013 RECORDED 04/30/19 13 2:37PM BY TEA HANDY MA, ANNOTATI ON/ADDEN DUM Michelle Degutis abraham [facility] 6 11:38:22 Urinary tract infectio us disease 78576844 Active 2013 Becky rosario [facility] 7 17:01:20 Vaginiti s and vulvovag initis Completed 201108/23/2013 IMPRESSI ON: VAGINAL ITCHING AFTER COMPLETI NG ANTIBIOT ICS; RECORDED 10/31/19 12 2:42PM BY NICKY WOODS ON/ADDEN DUM Michelle Degutis abraham [facility] 6 11:38:22 Impacted cerumen 59413717 Completed 09/17/2016 Becky rosario [facility] 7 17:00:46 Hyponatr emia 20330403 Completed 09/04/2017 Dilshad Hall MD [address], [place], [address] [address] 8 06:00:03 Anemia due to chronic blood loss 652551626 Completed 201109/15/2013 RECORDED 10/31/19 12 2:42PM BY NICKY WOODS ON/ADDEN DUM Michelle Degutis abraham [facility] 6 11:38:21 Tobacco user [id number] Completed 201209/15/2013 RECORDED 01/28/20 13 1:17PM BY ALEXANDRE AGUILAR MA, ANNOTATI ON/ADDEN DUM Becky rosario [facility] 7 17:00:35 Chest pain 06814842 Completed 201109/15/2013 RECORDED 10/31/19 12 2:41PM BY NICKY WOODS ON/ADDEN DUM Michelle Degutis abraham [facility] 6 11:38:22 Screenin g for malignan t neoplasm of colon Completed 201209/15/2013 RECORDED 04/30/19 13 2:37PM BY TEA HANDY MA, ANNOTATI ON/ADDEN DUM Michelle Degutis abraham [facility] 6 11:38:22 Divertic ular disease of colon 775374416 Completed 201109/15/2013 STORY: PT WAS SEEN IN OUR OFFICE 11/30/09 FOR RECTAL BLEEDING AND WAS REFERRED TO GI FOR AN EVALUATI ON. THAT EVENING EVERY TIME THE PT ATE SOMETHIN G SHE WOULD BE GOING TO THE BATHROOM TO HAVE A BM THAT WAS FILLED WITH BLOOD. AFTER A FEW TIMES THE PT [facility]. THE ONLY SX THAT THE PT FELT WAS BLOATING AND CRAMPING EVERYTIM E SHE ATE. PT HAD TO UNDERGO A COLONOSC OPY WITCH SHOWED THAT THE PT HAD BLEEDING COMING FROM THE [facility],DESCEN DING, AND TRANSVER SE COLON. PT WAS LATER TRANSFER RED [place] [facility] [place] C[place]. PT WAS THEN PLACED ON A LIQUID DIET UNTIL THE TIME WHERE SHE COULD TOLERATE SOLID FOOD WITH OUT PASSING A BM THAT WAS BLOODY. MEDICATI ON HAS BEEN RECONSIL ED WITH THE PT AND SHE WILL F/U WITH MGD 12/21/09 .; RECORDED 10/31/19 12 2:41PM BY NICKY WOODS ON/ADDEN TORIE rosario [facility] 6 11:38:21 Hemorrha ge of colon 97487399 Completed 201109/15/2013 STORY: STABLE/ STILL ANEMIC; RECORDED 10/31/19 12 2:41PM BY NICKY WOODS ON/ADDEN TORIE rosario [facility] 6 11:38:22 Dysuria 70762752 Completed 201109/15/2013 IMPRESSI ON: 3+ LEUKOCYT ES ON UA TODAY, COMPLETE D BACTRIM 2 DAYS AGO, START CIPRO AND SEND CULTURE; RECORDED 10/31/19 12 2:41PM BY NICKY WOODS ON/ADDEN DUM Becky rosario [facility] 7 17:01:13 Influenz a vaccine needed [id number] 06 Completed 201209/15/2013 RECORDED 04/30/19 13 2:37PM BY TEA HANDY MA, JERELATI ON/ADDEN DUM Michelle Ervin [facility], [facility] 6 11:38:22 Follow-u p encounte r Completed 201209/15/2013 RECORDED 04/30/19 13 2:37PM BY TEA HANDY MA, ANNOTATI ON/ADDEN DUM Michelle Aziza [facility], [facility] 6 11:38:22 Hypo-osm olality and or hyponatr emia 041687566 Completed 201109/15/2013 RECORDED 10/31/19 12 2:41PM BY NICKY WOODS ON/ADDEN DUM Michelle Aziza [facility], [facility] 6 11:38:21 Impacted cerumen [id number] Completed 201209/15/2013 RECORDED 01/28/20 13 1:17PM BY ALEXANDRE AGUILAR MA, JERELATI ON/ADDEN DUM Becky Norton [facility], [facility] 7 17:00:46 Renewal of prescrip tion Completed 201209/15/2013 RECORDED 04/30/19 13 2:37PM BY TEA HANDY MA, JERELATI ON/ADDEN DUM Michelle Aziza [facility], [facility] 6 11:38:22 Active or passive immuniza tion Completed 200909/15/2013 RECORDED 03/01/19 10 9:56AM BY PILLO Masters NP, OFFICE VISIT Michelle Aziza [facility], [facility] 6 11:38:22 Examinat ion for suspecte d mental disorder Completed 201109/15/2013 RECORDED 10/31/19 12 2:41PM BY NICKY WOODS ON/ADDEN DUM Michelle Ervin [facility] 6 11:38:22 Pre-surg girish evaluati on Completed 201209/15/2013 IMPRESSI ON: PT IS MEDICALL Y ABLE TO UNDERGO SURGERY, NO ACTIVE ISSUES, IS ABLE TO LAY FLAT AND STILL, EKG NL AND WILL GET LABS; RECORDED 01/28/20 13 1:17PM BY ALEXANDRE AGUILAR MA, NICKY ON/ADDEN DUM Michelle Degutis null, [facility] 6 11:38:22 Tachycar wesley [id number] Completed 201109/15/2013 RECORDED 10/31/19 12 2:42PM BY JEREL WOODSATI ON/ADDEN DUM Michelle Degutis null, [facility] 6 11:38:22 Retentio n of urine [id number] Completed 201209/15/2013 RECORDED 04/30/19 13 2:37PM BY TEA HANDY MA, NICKY ON/ADDEN DUM Michelle Degutis null, [facility] 6 11:38:22 Vaginiti s and vulvovag initis Completed 201109/15/2013 IMPRESSI ON: VAGINAL ITCHING AFTER COMPLETI NG ANTIBIOT ICS; RECORDED 10/31/19 12 2:42PM BY NICKY WOODS ON/ADDEN DUM Michelle Degutis null, [facility] 6 11:38:22 Anemia due to chronic blood loss 683523107 Completed 201109/16/2013 RECORDED 10/31/19 12 2:42PM BY NICKY WOODS ON/ADDEN DUM Michelle Degutis null, [facility] 6 11:38:21 Tobacco user [id number] Completed 201209/16/2013 RECORDED 01/28/20 13 1:17PM BY ALEXANDRE AGUILAR MA, NICKY ON/ADDEN DUM Becky Norton MA null, [facility] 7 17:00:35 Chest pain 60074610 Completed 201109/16/2013 RECORDED 10/31/19 12 2:41PM BY NICKY WOODS ON/ADDEN DUM Michelle Degutis null, [facility] 6 11:38:22 Screenin g for malignan t neoplasm of colon Completed 201209/16/2013 RECORDED 04/30/19 13 2:37PM BY TEA HANDY MA, ANNOTATI ON/ADDEN DUM Michelle rosario, [facility] 6 11:38:22 Divertic ular disease of colon 829528437 Completed 201109/16/2013 STORY: PT WAS SEEN IN OUR OFFICE 11/30/09 FOR RECTAL BLEEDING AND WAS REFERRED TO GI FOR AN EVALUATI ON. THAT EVENING EVERY TIME THE PT ATE SOMETHIN G SHE WOULD BE GOING TO THE BATHROOM TO HAVE A BM THAT WAS FILLED WITH BLOOD. AFTER A FEW TIMES THE PT [facility]. THE ONLY SX THAT THE PT FELT WAS BLOATING AND CRAMPING EVERYTIM E SHE ATE. PT HAD TO UNDERGO A COLONOSC OPY WITCH SHOWED THAT THE PT HAD BLEEDING COMING FROM THE [facility],DESCEN DING, AND TRANSVER SE COLON. PT WAS LATER TRANSFER RED TO [facility] [place] BE [place] C[place]SE[place]. PT WAS THEN PLACED ON A LIQUID DIET UNTIL THE TIME WHERE SHE COULD TOLERATE SOLID FOOD WITH OUT PASSING A BM THAT WAS BLOODY. MEDICATI ON HAS BEEN RECONSIL ED WITH THE PT AND SHE WILL F/U WITH MGD 12/21/09 .; RECORDED 10/31/19 12 2:41PM BY NICKY WOODS ON/ADDEN DUM Michelle rosario [facility] 6 11:38:21 Hemorrha ge of colon 32114652 Completed 201109/16/2013 STORY: STABLE/ STILL ANEMIC; RECORDED 10/31/19 12 2:41PM BY NICKY WOODS ON/ADDEN TORIE rosario, [facility] 6 11:38:22 Dysuria 02479938 Completed 201109/16/2013 IMPRESSI ON: 3+ LEUKOCYT ES ON UA TODAY, COMPLETE D BACTRIM 2 DAYS AGO, START CIPRO AND SEND CULTURE; RECORDED 10/31/19 12 2:41PM BY NICKY WOODS ON/ADDEN DUM Becky Norton MA null, [facility] 7 17:01:13 Influenz a vaccine needed [id number] 06 Completed 201209/16/2013 RECORDED 04/30/19 13 2:37PM BY TEA HANDY MA, JERELATI ON/ADDEN DUM Michelle Pacousha rosario, [facility] 6 11:38:22 Follow-u p encounte r Completed 201209/16/2013 RECORDED 04/30/19 13 2:37PM BY TEA HANDY MA, NICKY ON/ADDEN DUM Michelle Pacousha rosario, [facility] 6 11:38:22 Hypo-osm olality and or hyponatr emia 902576334 Completed 201109/16/2013 RECORDED 10/31/19 12 2:41PM BY NICKY WOODS ON/EN DUM Michelle rosario, [facility] 6 11:38:21 Impacted cerumen 77034696 Completed 201209/16/2013 RECORDED 01/28/20 13 1:17PM BY ALEXANDRE AGUILAR MA, NICKY ON/ADDEN TORIE rosario, [facility] 7 17:00:46 Renewal of prescrip tion Completed 201209/16/2013 RECORDED 04/30/19 13 2:37PM BY TEA HANDY MA, NICKY ON/ADDEN DUM Michelle Pacousha rosario, [facility] 6 11:38:22 Active or passive immuniza tion Completed 200909/16/2013 RECORDED 03/01/19 10 9:56AM BY PILLO Masters NP, OFFICE VISIT Michelle rosario, [facility] 6 11:38:22 Examinat ion for suspecte d mental disorder Completed 201109/16/2013 RECORDED 10/31/19 12 2:41PM BY NICKY WOODS ON/ADDEN TORIE Ervin null, [facility] 6 11:38:22 Pre-surg girish hartmanati on Completed 201209/16/2013 IMPRESSI ON: PT IS MEDICALL Y ABLE TO UNDERGO SURGERY, NO ACTIVE ISSUES, IS ABLE TO LAY FLAT AND STILL, EKG NL AND WILL GET LABS; RECORDED 01/28/20 13 1:17PM BY ALEXANDRE AGUILAR MA, ANNOTATI ON/[facility] Degutis null, [facility] 6 11:38:22 Tachycar wesley [id number] Completed 201109/16/2013 RECORDED 10/31/19 12 2:42PM BY NICKY WOODS ON/[facility] Degutis null, [facility] 6 11:38:22 Retentio n of urine [id number] Completed 201209/16/2013 RECORDED 04/30/19 13 2:37PM BY TEA HANDY MA, ANNOTATI ON/[facility] Degutis null [facility] 6 11:38:22 Vaginiti s and vulvovag initis Completed 201109/16/2013 IMPRESSI ON: VAGINAL ITCHING AFTER COMPLETI NG ANTIBIOT ICS; RECORDED 10/31/19 12 2:42PM BY NICKY WOODS ON/[facility] Degutis null [facility] 6 11:38:22 Dermatit is Completed 09/17/2016 Becky rosario [facility] 7 17:00:48 Dysuria 94026476 Completed 09/17/2016 Becky rosario [facility] 7 17:01:13 Insomnia 472425131 Active Michelle Antonioutedouard null [facility] 6 11:38:21 Advance directiv e discusse d with patient 434916002 Completed 09/17/2016 Becky rosario [facility] 7 17:01:07 Polyp of colon 81336713 Active Michelle Aziza abraham [facility] 6 11:38:21 Chronic low back pain 314446163 Active 2018 Rebeca rosario [facility] 9 14:22:51 Problem Notes None recorded. Procedures Surgical History Date Name Laterality Status Provider Name and Address Organization Details Recorded Time 01/21/20 19 Mini-Cog Test completed Leila Julien MA [facility] 01/20/2019 09:52:44 12/30/19 18 Most Recent Mammogram completed Leila Julien MA [facility] 01/20/2019 09:47:42 12/19/19 18 Mini-Cog Test completed Naheed Veliz [facility] 12/18/2017 13:13:25 12/02/19 17 Fall Risk Assessment completed Becky Norton MA [facility] 12/01/2016 13:22:35 12/02/19 17 Mini-Cog Test completed Becky Norton [facility] 12/01/2016 13:23:31 11/29/19 17 Mammogram both breasts completed Kimmy Yañez [facility] 12/09/2016 14:44:18 10/17/19 17 Date of Last Colonoscopy completed Paola Kendall [facility] 12/09/2016 16:54:35 10/17/19 17 Colonoscopy completed Becky Norton MA [facility] 10/24/2016 11:43:36 03/23/19 16 Fall Risk Assessment completed Becky Norton MA [facility] 03/23/2015 13:55:01 03/23/19 16 Mini-Cog Test completed Becky Norton [facility] 03/23/2015 14:02:26 03/23/19 16 Advanced Care Planning completed Becky Norton MA [facility] 03/23/2015 13:41:44 08/19/19 15 Date of Last Pap Smear completed Michelle Ervin [facility] 03/28/2015 11:40:33 02/23/19 11 Most Recent Bone Density completed [facility]y [facility] 03/23/2015 14:07:39 02/09/19 08 Appendectomy completed Tea Chuck [facility] 03/02/2014 10:46:37 Imaging Results Imaging Date Name Status LastModified by Organization Details LastModified Time 05/15/2017 electrocardiogram completed Infor mation not available 05/15/2017 12:36:53 06/14/2018 XR, sacrum + coccyx, 2 or more view active [facility] (Outpt Imaging) [address] [place], [address], 06/15/2018 15:07:23 06/14/2018 XR, lumbar spine active [facility] (Outpt Imaging) [address] [place], [address], 06/15/2018 15:07:23 Procedure Notes None recorded. Medical Equipment None Reported. Allergies Allergen ID Allergen Name Allergen Category Reaction Reaction Severity Criticality Documentation Date Start Date Code Code System Note Provider Name and Address Organization Details Recorded Time 2935 latex environme nt,medica tion rash Not available Not available 08/23/20132012 80540 91 RxNorm Becky Norton MA [facility] 7 17:00:18 Medications Name Sig [...] Updated DateTime 8 154.94 cm 31.4 kg/m2 62369.4 3 g 98.7 [degF] 96 % 96 % 89 /min 118 mm[Hg] 76 mm[Hg] Becky [facility] 8 11:28:28 Date Recorded Body height Body mass index (BMI) Body weight Heart rate Oxygen saturation Oxygen saturation in Arterial blood by Pulse oximetry Body temperature Systolic blood pressure Diastolic blood pressure Provider Name and Address Organization Details Last Updated DateTime 8 154.94 cm 30.8 kg/m2 27438.5 6 g 94 /min 97 % 97 % 97.5 [degF] 136 mm[Hg] 74 mm[Hg] Jovan Mdeina [facility] 8 10:41:30 Date Recorded Body height Body mass index (BMI) Body weight Body temperature Heart rate Oxygen saturation Oxygen saturation in Arterial blood by Pulse oximetry Systolic blood pressure Diastolic blood pressure Provider Name and Address Organization Details Last Updated DateTime 8 154.94 cm 30.5 kg/m2 78746.4 7 g 97.2 [degF] 86 /min 96 % 96 % 123 mm[Hg] 72 mm[Hg] Naheed Veliz [facility] 8 12:57:56 Date Recorded Body height Body mass index (BMI) Body weight Heart rate Oxygen saturation Oxygen saturation in Arterial blood by Pulse oximetry Body temperature Systolic blood pressure Diastolic blood pressure Provider Name and Address Organization Details Last Updated DateTime 9 154.94 cm 30.2 kg/m2 50322.7 8 g 92 /min 96 % 96 % 98.4 [degF] 124 mm[Hg] 78 mm[Hg] Ruby Mackey [facility] 9 12:59:19 Date Recorded Body height Body mass index (BMI) Body weight Oxygen saturation Oxygen saturation in Arterial blood by Pulse oximetry Heart rate Body temperature Systolic blood pressure Diastolic blood pressure Provider Name and Address Organization Details Last Updated DateTime 9 154.94 cm 30.7 kg/m2 80983.0 6 g 96 % 96 % 81 /min 98.1 [degF] 119 mm[Hg] 67 mm[Hg] Leila Julien MA [facility] 9 09:56:35 Social History Question Answer Notes LastModified by Organizat ion Details LastModified Time Tobacco Smoking Status Former Smoker ELLIOTT Plascencia, [facility] 09/08/2013 11:26:06 Do You Have [...] E-cigarettes Or Vape? 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 Never Used Smokeless Tobacco [email or web address] Information not available 01/20/2019 How Much Tobacco Do You Smoke? 1 PPW [email or web address] Information not available 01/20/2019 General Stress Level Low Information not available 03/02/2014 Do You Use Sunscreen Routinely? Yes Information not available 03/23/2015 How Many Years Have You Smoked Tobacco? 15 Information not available 12/18/2017 Sex: Unknown Functional Status Question Answer Note LastModified by [employer] ion Details LastModified Time Are you able [...] conjugate PCV 13 5 completed Not Available [facility] 02/26/2019 02:21:36 Influenza, split virus, quadrivalent, PF 5 completed Becky Norton MA [facility] 03/23/2015 14:06:48 Influenza, high-dose, trivalent, PF 7 completed Not Available [facility] 02/26/2019 02:22:21 Novel Qprpyebax-[id number], all formulations 0 completed Not Available [facility] 08/23/2013 13:38:52 pneumococcal polysaccharide PPV23 0 completed Not Available [facility] 08/23/2013 13:38:52 Influenza, split virus, trivalent, preservative 0 completed Not Available [facility] 08/23/2013 13:38:52 Influenza, split virus, trivalent, preservative 1 completed Not Available [facility] 08/23/2013 13:38:52 Influenza, split virus, trivalent, preservative 2 completed Not Available [facility] 08/23/2013 13:38:52 Influenza, split virus, trivalent, preservative 3 completed Not Available [facility] 08/23/2013 13:38:52 Influenza, high-dose, trivalent, PF 8 completed Not Available [facility] 02/26/2019 02:22:14 Influenza, high-dose, trivalent, PF 9 completed Not Available [facility] 02/26/2019 02:22:09 Past Encounters Encounter ID Performer Location Encounter Start Date Encounter Closed Date Diagnosis/Indication Diagnosis SNOMED-CT Code Diagnosis ICD10 Code Diagnosis Note [id number] Tea Handy Main Office [address] [facility] [address] [place], [place] [address] 09/08/2013 11:14:56 09/08/2013 11:58:13 Essential hypertension 81484452 well controlled Asthma 994785043 followe d by pulm, well controlled on symbicort Anxiety state 169191251 Impacted cerumen 31223892 successful ly removed with ear lavage [id number] auto[facility]Comm erce [address] [facility] [place] [address] 03/01/2009 00:00:00 [id number] autoEComm erce [address] [facility] [place] [address] 03/29/2009 00:00:00 [id number] autoEComm erce [address] [facility] [place] [address] 09/10/2009 00:00:00 [id number] autoEComm erce [address] [facility] [place] [address] 11/13/2009 00:00:00 [id number] autoEComm erce [address] [facility] [place] [address] 11/30/2009 00:00:00 [id number] autoEComm erce [address] [facility] [place] [address] 12/21/2009 00:00:00 [id number] autoEComm erce [address] [facility] [place] [address] 02/11/2010 00:00:00 [id number] autoEComm erce [address] [facility] [place] [address] 05/17/2010 00:00:00 [id number] autoEComm erce [address] [facility] [place] [address] 08/23/2010 00:00:00 [id number] autoEComm erce [address] [facility] [place] [address] 09/04/2010 00:00:00 [id number] autoEComm erce [address] [facility] [place] [address] 11/29/2010 00:00:00 [id number] autoEComm erce [address] [facility] [place], [place] [address] 01/10/2011 00:00:00 [id number] autoEComm erce [address] [facility] [place] [address] 05/02/2011 00:00:00 [id number] autoEComm erce [address] [facility] [place] [address] 10/31/2011 00:00:00 [id number] autoEComm erce [address] [facility] [place] [address] 04/29/2012 00:00:00 [id number] autoEComm erce [address] [facility] [place] [address] 07/15/2012 00:00:00 [id number] autoEComm erce [address] [facility] [place] [address] 01/27/2013 00:00:00 [id number] [facility] Main Office [address] [address] [place] [address] 09/26/2013 13:41:44 09/26/2013 14:55:33 Dermatitis 157580554 candidal dermatitis [id number] [facility] Main Office [facility] [address] [place] [address] 03/02/2014 12:39:53 03/02/2014 13:42:38 Essential hypertension 14955928 Hyponatremia 88387218 pt to see Dr Pride regularly/ pt aware that she needs to stop using clorazepat e / see psych referral Anxiety state 928372438 Dysuria 84142044 [id number] Becky Norton [place] Main Office [address] [address] [place] [address] 04/21/2014 14:46:19 04/21/2014 15:48:33 Essential hypertension 52773891 both meds helpful/ Diltiazem and lisinopril Gastroesop hageal reflux disease 797304702 pt on PPI Anxiety state 169996747 Asthma 743821459 [id number] Ricardo medellin Main Office [address] [address] [place] [address] 03/23/2015 13:27:48 03/23/2015 14:47:01 Adult health examination 387095169 Z00.00 [facility] risk for falls 236728985 Z91.81 Advance di rective discussed with patient 501913435 Z71.89 pt will have her brother as health care proxy Essential hypertension 54839744 I10 both meds helpful/ Diltiazem and lisinopril Polyp of colon 12494170 K63.5 pt due for colonoscop y 2016 /tubular adenoma/We iss Asthma 139216053 J45.90 9 Anxiety state 481179227 F41.1 [id number] Ricardo medellin Main Office [address] [address] [place] [address] 10/05/2015 12:46:12 10/05/2015 13:40:50 Essential hypertension 09466370 I10 both meds helpful/ Diltiazem and lisinopril Asthma 160286772 J45.90 9 urged pt to get flu shot soon. Anxiety state 838708691 F41.1 [id number] Ricardo medellin Main Office [address] [address] [place] [address] 06/19/2016 12:55:50 06/19/2016 14:13:50 Fatigue 56930596 R53.83 Abnormal weight loss 267 937252 R63.4 Diarrhea 79881124 R19.7 Nausea 486512511 R11.0 d/w pt to elevate HOB/ cont PPI Impaired f asting glycemia 663631969 R73.01 [id number] Ricardo medellin Main Office [address] [address] [place] [address] 10/23/2016 14:30:06 10/23/2016 15:27:24 [id number] Ricardo medellin Main Office [address] [address] [place] [address] 10/31/2016 13:21:48 10/31/2016 14:41:18 Lumbosacral radiculitis 81303286 M54.17 Influenza vaccine needed 8796164590 106 Z23 [id number] Ricardo Carversusana medellin Main Office [address] [address] [place] [address] 12/01/2016 13:04:53 12/01/2016 14:09:38 Adult health examination 758057654 Z00.00 Essential hypertension 11761845 I10 both meds helpful/ Diltiazem and lisinopril Anxiety state 995507517 F41.1 [id number] Ricardo Carversusana medellin Main Office [address] [address] [place] [address] 05/15/2017 11:16:16 05/15/2017 12:12:51 Anxiety state 772240520 F41.1 Essential hypertension 77287758 I10 both meds helpful/ Diltiazem and lisinopril Incomplete emptying of urinary bladder 366739809 R39.14 [id number] Maryanne fernandes Main Office [address] [address] [place] [address] 11/13/2017 10:36:20 11/13/2017 11:18:17 Anxiety state 913755936 F41.1 has been on med for 20+ years, she is taking 3.75mg daily, will try to cut the dose in half if possible. f/u in 1 month for wellness visit. Influenza vaccine needed 8630488310 106 Z23 Gastroesop hageal reflux disease 631148067 K21.9 Essential hypertension 37790648 I10 well controlled , continue meds as directed. [id number] Ramon Callahan MD Main Office [address] [address] [place] [address] 12/18/2017 12:40:39 12/18/2017 13:46:58 Adult health examination 107040553 Z00.00 [facility], she will call POLICE CHIEF for appt Varicella vaccination 68 996868 Z23 Asthma 752516871 J45.90 9 Essential hypertension 36056335 I10 well controlled , continue meds as directed. Family his tory of Hypercholesterolemia 177733750 Z83.49 Anxiety state 335063402 F41.1 has been on med for 20+ years, she is taking 3.75mg daily, will try to cut the dose in half if possible. f/u in 1 month for wellness visit. [id number] Denis Marcos [facility] Main Office [address] [facility] [address] [place] [address] 06/11/2018 12:42:51 06/11/2018 13:40:40 Low back pain 291321450 M54.5 Patient with chronic low back pain, in PT, seeing chiropract or, but wondering if she should be seeing someone else. Will check XR and refer back to [facility], she has seen them for this in the past. continue sx treatment, ibuprofen as needed. Cramp in lower limb 4499 92484 R25.2 Essential hypertension 12350052 I10 well controlled , continue meds as directed. Fatigue 90028058 R53.83 [id number] Denis Marcos [facility] Main Office [address] [facility] [address] [place] [address] 01/20/2019 09:41:15 01/20/2019 10:33:29 Adult health examination 853095211 Z00.00 UTD, she has mammo scheduled, needs to call POLICE CHIEF. Influenza vaccine needed 0556292555 106 Z23 Impaired f asting glycemia 124131094 R73.01 in June, sugar 125 and she believes she was fasting Hyperlipidemia 24499277 E78.5 Health Concerns Section Related Observation LastModified by Organization Detai ls LastModified Time None Recorded Concern Status LastModified by Organization Details LastModified Time None Recorded Advance Directives Directive Y: Payers Encounter Date Sequence Insurance Name Policy Number Policy Menendez Covered Member ID Menendez Member ID Guarantor Name 05/15/2017 2 [place] [id number] Noris E Isidroki [id number] Noris Chan Hou 05/15/2017 1 [place] [employer] Noris E Opajohnki [id number] Noris E Ameya 11/13/2017 2 [place] [id number] Noris E Isidroki [id number] Noris E Ameya 11/13/2017 1 [place] Noris E Isidroki [id number] Noris E Ameya 12/18/2017 2 [place] [id number] Noris E Oparowski [id number] Noris E Oparowski 12/18/2017 1 [place] Noris E Oparowski [id number] Noris E Oparowski 06/11/2018 2 [facility] [id number] Noris E Oparowski [id number] Noris E Oparowski 06/11/2018 1 [place] Noris E Oparowski [id number] Noris E Oparowski 01/20/2019 2 [facility] [id number] Noris E Oparowski [id number] Noris E Oparowski 01/20/2019 1 [place] [employer] [place] Noris E Oparowski [id number] Noris E Oparowski Notes Date Note Type Note Provider Name and Address Organization Details Recorded Time 05/15/2017 text/html Anxiety/Depressi onRepo rted bypatient.Quality:incr eased anxiety; pt reports that sthe plans to return to her pschologist Dr Valdes this year Severity:able to maintain relationships Associated Symptoms:no significant weight gain; mood good; 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 , > 20 [...] no fever;incomplete emptying of bladder Ricardo rosario [facility] 05/15/2017 12:16:47 11/13/2017 text/html Anxiety/Depressi onRepo rted bypatient.Quality:incr eased anxiety; stress, car trouble Severity:able to maintain relationships Context:major life stressors;family problems Associated Symptoms:no significant weight gain;high irritability;hostility ;anxiety;hypersensitiv ity;anxiety with muscle tension; 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 DR saw Dr. Miller at [facility]. Was discharged in 2017 due to improvement with PT. 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 Since the fall her back pain is worse. NICOLÁS Fay [address] [facility] [address], [place], [address], [facility] [place] 06/11/2018 13:40:34 01/20/2019 text/html Medicare Annual [...] states she found a new PCP in [place] but cannot be seen until May. Denis Marcos, [facility] [address] [facility] [address], [place], [address], [facility] 01/20/2019 10:57:40 OBGyn Episode No OBEpisode recorded.
== END 2024-04-12 10:38 | disposition home or self-care (01) ==
PROVIDERS: PCP Family Medicine; Visit Provider Internal Medicine Hypertension Specialist
DX: E87.1 Hypo-osmolality and hyponatremia (principal)
CPT/HCPCS: 99214

== ENCOUNTER → 2024-04-12 10:11 | Outpatient (BNVA) | payer MEDICARE, MEDICAID, SELFPAY | PROVIDERS: PCP Family Medicine; Visit Provider Internal Medicine Hypertension Specialist | DX: E87.1 Hypo-osmolality and hyponatremia (principal) | CPT/HCPCS: 99212 ==

== ENCOUNTER 2024-04-22 13:04 | Outpatient (AMB) | payer MEDICARE, MEDICAID, SELFPAY ==
[2024-04-22 13:14] LABS: Prothrombin Time Whole Bld POC 23.9 sec (11.1-13.5)
--- NOTE | 2024-04-22 13:23 | MHC.OFFVISCO ---
Intake Intake Visit Reasons: Anticoagulation Allergies Seasonal Allergies Allergy (Mild, Verified 04/22/24 13:09) runny nose latex Allergy (Verified 04/22/24 13:09) rash Medication List - Last Reconciled 04/22/24 by Mirella Cooley, RN albuterol sulfate 90 mcg/actuation 2 puffs inhalation Q8H PRN cetirizine (Zyrtec) 10 mg PO DAILY PRN cholecalciferol (vitamin D3) 50 mcg PO DAILY citalopram 20 mg PO DAILY 90 days clonazepam 0.5 mg PO BID PRN diltiazem HCl CD 120 mg PO DAILY 90 days fluticasone propion-salmeterol 500-50 mcg/dose (Wixela Inhub) 1 inh inhalation BID fluticasone propionate 50 mcg/actuation (Flonase Allergy Relief) 1 spray intranasal Q12H 30 days gabapentin 300 mg PO BID losartan 25 mg PO DAILY omeprazole 20 mg PO DAILY tamsulosin 0.4 mg PO BEDTIME 90 days warfarin 2 mg See Protocol PO DAILY 30 days Nursing Note INR: 2.0 in therapeutic range of 2-3 Medications and supplements reviewed Pt s/p biopsy of lesion on tip of nose. 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 Has appt w/ABHI Dr Maria for consult to discuss MOHS procedure. Pt instructed to ask Md if it is required for pt to hold warfarin for this procedure. No changes in diet, medications, or supplements, Denies any signs and symptoms of bleeding or bruising or clotting. Bleeding, bruising, clotting discussed Nutritional guidance given to avoid greens today Dose: keep same dose of 1mg X 6 days and 2mg X 1 day () F/U INR: 2 weeks Patient verbalizes understanding of instructions given Anti-Coag Initial Assessment Social Hx Patient Tobacco Use Status: Former Tobacco user (20 years quit around age 51 ) Tobacco use type: Cigarette Smoking packs per day: 1.0 alcohol intake: current Alcohol intake frequency: 0-2 drinks per day (about 2 daily with ice ) Cardiovascular Hx: HTN and Other (edma right foot > left foot had dvt ) Lung Disease HX: Asthma, COPD (believe r/t to work exposure and smoking) and DVT/PE (2022 after having RSV and covid vaccines- pt feels r/t to vaccines also ) Endocrine Hx: Diabetes (being monitored ) Musculoskeletal Hx: Arthritis (mostly hand - all over, ) GI Hx: Bleeding (GI, rectal) (age 60s x 2 weeks 10 blood transfusions no found cause at the time - and none since then ) and Diverticulosis Hx: Bladder Disorders (URGENCY ) and Other (UPCOMING RENAL EVALUATIONS ) Cancer 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 Illness/Depression: Yes (anxiety ) Coding Level of Care Code Est Patient Level 1 Diagnoses Current use of anticoagulant therapy Z79.01 Assessment & Plan Assessment & Plan (1) Current use of anticoagulant therapy: Code(s): Z79.01 - half-way (current) use of anticoagulants Category: Medical
--- OUTSIDE RECORDS SUMMARY | 2024-04-22 14:37 | XMS_ITS | Data Portability ---
Author Organization [facility], Main Office Address [address] [place] [address] Care Team Providers Care Smasher Name Role Phone ABDIEL ORTEGA Materials Associate GRACIELA MILLER Urologist ABDIEL LOAZNO Divider Operator URBAN PRIDE Wafer Fabricator HUMBERTO SINGH Tourist Home Keeper RICARDO HUGHES Chiropractor [facility] Physical Therapist DENIS MARCOS Primary Care Provider [phone] Assessment No assessment recorded. Plan of Treatment Reminders Order Date Submit Date Provider Last Modified By Organization Details Last Modified Time Details Appointments None recorded. Lab HbA1c (hemoglob in A1c), blood 2018 019 [facility] (Centralized Electronic Ordering - All Locations), Patient Can Go To The Location Of Their Choice, [id number] 0 09:38:13 BMP, serum or plasma 2018 019 [facility] (Centralized Electronic Ordering - All Locations), Patient Can Go To The Location Of Their Choice, [address] 0 09:38:13 lipid panel, serum 2018 019 [facility] (Centralized Electronic Ordering - All Locations), Patient Can Go To The Location Of Their Choice, [address] 0 09:38:13 magnesium , serum or plasma [...] 15:24:52 CMP, serum or plasma 2017 018 [facility] - All Locations), Patient Can Go To The Location Of Their Choice, 11:56:02 Referral spine center referral - patient in 2017, MRI showed crowding L2 nerve root on the left, having worsenign sx of sciatic pain, low back pain, leg pains bilateral ly. 2018 isaías [facility], [address] [place] [address], [place], [address], 17:23:40 physical therapist referral - At risk for falling [facility], [address] [place], [address], 8 16:26:43 urologist referral - pt has not seen urology in 2 years or more and wants to have consultat ion w/ urologist rather than ORGANIC PREPARATION TECHNICIAN 2017 018 scott Crane MD, [address], [place], [address], 8 13:35:13 Procedures None recorded. Surgeries None recorded. Imaging XR, lumbar spine - chronic low back pain, worsening s/p fall in february [id number] 019 [facility], [address] [place] [address], [address], 9 10:29:46 XR, sacrum + coccyx - s/p fall in february, hx low back arthritis . pain worsening 2018 019 [facility], [address] [place] [address], [address], 9 10:29:44 Medication Orders clorazepa te dipotassi um 3.75 mg tablet 2017 018 [id number], [address] [place], [address], 8 11:18:58 tamsulosi n 0.4 mg capsule 2017 018 [id number], [address] [place], [address], 8 13:01:14 clorazepa te dipotassi um 3.75 mg tablet 2017 018 [facility], [address] [place], [address], 8 12:05:21 Patient TargetsNo targets recorded. Patient Instructions Encounter Date Encounter Id Patient Instructions Last Modified By Organization Details Last Modified Time 11/13/2017 [id number] anxiety disorder: care instructions [email or web address] Not available 11/13/2017 11:18:44 call or return for worsening or concerns. [email or web address] Not available 11/13/2017 11:13:19 I have reviewed the note and agree with the assessment and plan of care. dolores Not available 11/13/2017 12:41:01 12/18/2017 [id number] preventing falls: care instructions [email or web address] Not available [...] medication. [email or web address] Not available 12/18/2017 13:20:44 06/11/2018 [id number] low back pain: exercises [email or web address] Not available 06/11/2018 13:24:20 call or return for worsening or concerns. [email or web address] Not available 06/11/2018 13:22:08 01/20/2019 [id number] preventing falls: care instructions [email or web address] Not available 01/20/2019 10:20:59 call or return for woraening or concerns. [email or web address] Not available 01/20/2019 10:20:56 Reviewed the risks and benefits of medical terminologist opiate use, OUD discussed with the patient. Reviewed the risks and benefits of other non-opioid pain therapies. Reviewed caution with driving, fall risk, treatment for constipation. Patient verbalizes understanding of risk and benefits, and of OUD. [email or web address] Not available 01/20/2019 09:46:37 Reason for Referral Urologist Referral for Incom plete emptying of urinary bladder pt has not seen urology in 2 years or more and wants to have consultation w/ urologist rather than ORGANIC PREPARATION TECHNICIAN Referring Physician: Ricardo Dhillon, Internal Medicine, Encounter [...] ce of an acute proces s. WSN: [id number] Dictat ed By: Delonte Barrios MD Dictat ed Date/T erlinda: 10:26 a Review ed By: Delonte Barrios MD Signed By: Delonte Barrios MD Signed Date/T erlinda: 10:26 am Transc ribed By: PASTORA Transc ribed Date/T erlinda: 10:24 am Patien t Class: Outpat ient [facility] ([facility]pt Imaging) [address] [place], [address], 06/15/2018 15:07:23 06/15/19 19 06/14/2018 XR, lumba [...] ce of an acute proces s. WSN: [id number] Dictat ed By: Delonte Barrios MD Dictat ed Date/T erlinda: 10:26 a Review ed By: Delonte Barrios MD Signed By: Delonte Barrios MD Signed Date/T erlinda: 10:26 am Transc ribed By: PASTORA Transc ribed Date/T erlinda: 10:24 am Patien t Class: Outpat ient [facility] (Outpt Imaging) [address] [place], [address], 06/15/2018 15:07:23 Result Notes None recorded. Problems Name Problem SNOMED Code Status Onset Date Resolution Date Notes Provider Name and Address Organization Details Recorded Time Anemia due to chronic blood loss 781556545 Completed 201108/23/2013 RECORDED 10/31/19 12 2:42PM BY NICKY WOODS ON/ADDEN DUM Michelle Ervin abraham [facility] 6 11:38:21 Anxiety state [id number] Active 2012 Becky rosario [facility] 7 17:00:55 Tobacco user [id number] Completed 201208/23/2013 RECORDED 01/28/20 13 1:17PM BY ALEXANDRE AGUILAR MA, ANNOTATI ON/ADDEN DUM Becky rosario [facility] 7 17:00:35 History of clinical finding in subject 710738109 Completed 201209/17/2016 RECORDED 01/28/20 13 1:17PM BY ALEXANDRE AGUILAR MA, ANNOTATI ON/ADDEN DUM Becky rosario [facility] 7 17:01:11 Asthma 937669935 Active 2012 Becky rosario [facility] 7 17:00:52 Screenin g for malignan t neoplasm of breast Completed 201410/31/2016 Dr. Susy Ortega, negative Becky rosario [facility] 7 13:35:13 Screenin g for malignan t neoplasm of breast Completed 201108/23/2013 RECORDED 10/31/19 12 2:41PM BY JEREL WOODSATI ON/ADDEN DUM Becky rosario, [facility] 7 13:35:13 Chest pain 25855422 Completed 201108/23/2013 RECORDED 10/31/19 12 2:41PM BY JEREL WOODSATI ON/ADDEN DUM Michelle Degutedouard null, [facility] 6 11:38:22 Screenin g for malignan t neoplasm of colon Completed 201208/23/2013 RECORDED 04/30/19 13 2:37PM BY TEA HANDY MA, ANNOTATI ON/ADDEN DUM Michelle Degutedouard null, [facility] 6 11:38:22 Divertic ular disease of colon 892075643 Completed 201108/23/2013 STORY: PT WAS SEEN IN OUR OFFICE 11/30/09 FOR RECTAL BLEEDING AND WAS REFERRED TO GI FOR AN EVALUATI ON. THAT EVENING EVERY TIME THE PT ATE SOMETHIN G SHE WOULD BE GOING TO THE BATHROOM TO HAVE A BM THAT WAS FILLED WITH BLOOD. AFTER A FEW TIMES THE PT TOOK HERSELF TO [facility] TO BE EVALUATE D. THE ONLY SX THAT THE PT FELT WAS BLOATING AND CRAMPING EVERYTIM E SHE ATE. PT HAD TO UNDERGO A COLONOSC OPY WITCH SHOWED THAT THE PT HAD BLEEDING COMING FROM THE ASCENDIN G,DESCEN DING, AND TRANSVER SE COLON. PT WAS LATER TRANSFER RED TO [facility] TO BE WATCHED CLOSELY. PT WAS THEN PLACED ON A LIQUID DIET UNTIL THE TIME WHERE SHE COULD TOLERATE SOLID FOOD WITH OUT PASSING A BM THAT WAS BLOODY. MEDICATI ON HAS BEEN RECONSIL ED WITH THE PT AND SHE WILL F/U WITH MGD 12/21/09 .; RECORDED 10/31/19 12 2:41PM BY JEREL WOODSATI ON/ADDEN DUM Michelle Antoniousha null, [facility] 6 11:38:21 Hemorrha ge of colon 06716692 Completed 201108/23/2013 STORY: STABLE/ STILL ANEMIC; RECORDED 10/31/19 12 2:41PM BY NICKY WOODS ON/ADDEN DUM Michelle rosario [facility] 6 11:38:22 Divertic ulitis of colon 333309475 Active 2011 Becky rosario [facility] 7 17:00:37 Dysuria 76683603 Completed 201108/23/2013 IMPRESSI ON: 3+ LEUKOCYT ES ON UA TODAY, COMPLETE D BACTRIM 2 DAYS AGO, START CIPRO AND SEND CULTURE; RECORDED 10/31/19 12 2:41PM BY NICKY WOODS ON/ADDEN DUM Becky rosario [facility] 7 17:01:13 Gastroes ophageal reflux disease 519759508 Active 2012 Becky rosario [facility] 7 17:00:59 Essentia l hyperten julisa 69213059 Active 2012 Becky rosario [facility] 7 17:01:17 Essentia l hyperten julisa 94161344 Completed 201108/23/2013 RECORDED 10/31/19 12 2:41PM BY NICKY WOODS ON/ADDEN DUM Becky rosario [facility] 7 17:01:17 External hemorrho ids 99394778 Active 2012 Becky rosario [facility] 7 17:01:03 Influenz a vaccine needed [id number] 06 Completed 201208/23/2013 RECORDED 04/30/19 13 2:37PM BY TEA HANDY MA, ANNOTATI ON/ADDEN DUM Michelle rosario [facility] 6 11:38:22 Follow-u p encounte r Completed 201208/23/2013 RECORDED 04/30/19 13 2:37PM BY TEA HANDY MA, ANNOTATI ON/ADDEN DUM Michelle Degutis null, [facility] 6 11:38:22 Tobacco user 864944272 Active 2012 Becky rosario, [facility] 7 17:00:35 Adult health examinat ion Completed 201209/17/2016 STORY: COLONOSC OPY DUE SS/TUBUL AR ADENOMA; RECORDED 01/28/20 13 1:58PM BY RICARDO COLE MD, OFFICE VISIT Becky rosario, [facility] 7 17:01:05 Adult health examinat ion Completed 201208/23/2013 RECORDED 04/30/19 13 2:37PM BY TEA HANDY MA, ANNOTATI ON/ADDEN DUM Becky rosario, [facility] 7 17:01:05 Hearing loss 08341441 Active 2012 Becky rosario, [facility] 7 17:00:40 History of Malignan t melanoma 274548704 Active 2013 Becky rosario, [facility] 7 17:00:45 Hypo-osm olality and or hyponatr emia 002295668 Completed 201108/23/2013 RECORDED 10/31/19 12 2:41PM BY NICKY WOODS ON/ADDEN DUM Michelle Degutedouard null, [facility] 6 11:38:21 Impacted cerumen 34369278 Completed 201208/23/2013 RECORDED 01/28/20 13 1:17PM BY ALEXANDRE AGUILAR MA, ANNOTATI ON/ADDEN DUM Becky rosario, [facility] 7 17:00:46 Irritabl e bowel syndrome 60212582 Active 2012 Becky rosario [facility] 7 17:00:31 Renewal of prescrip tion Completed 201208/23/2013 RECORDED 04/30/19 13 2:37PM BY TEA HANDY MA, ANNOTATI ON/ADDEN DUM Michelle Degutis null, [facility] 6 11:38:22 Malignan t melanoma of skin 79669278 Active 2013 Becky rosario, [facility] 7 17:01:28 Active or passive immuniza tion Completed 200908/23/2013 RECORDED 03/01/19 10 9:56AM BY PILLO Masters NP, OFFICE VISIT Michelle rosario [facility] 6 11:38:22 Examinat ion for suspecte d mental disorder Completed 201108/23/2013 RECORDED 10/31/19 12 2:41PM BY NICKY WOODS ON/ADDEN DUM Michelle Degutis null [facility] 6 11:38:22 Pre-surg girish evaluati on Completed 201208/23/2013 IMPRESSI ON: PT IS MEDICALL Y ABLE TO UNDERGO SURGERY, NO ACTIVE ISSUES, IS ABLE TO LAY FLAT AND STILL, EKG NL AND WILL GET LABS; RECORDED 01/28/20 13 1:17PM BY ALEXANDRE AGUILAR MA, NICKY ON/ADDEN DUM Michelle Degutis abraham [facility] 6 11:38:22 Tachycar wesley [id number] Completed 201108/23/2013 RECORDED 10/31/19 12 2:42PM BY NICKY WOODS ON/ADDEN DUM Michelle Degutis null [facility] 6 11:38:22 Retentio n of urine 338513111 Completed 201208/23/2013 RECORDED 04/30/19 13 2:37PM BY TEA HANDY MA, ANNOTATI ON/ADDEN DUM Michelle Degutis abraham [facility] 6 11:38:22 Urinary tract infectio us disease 82828262 Active 2013 Becky rosario [facility] 7 17:01:20 Vaginiti s and vulvovag initis Completed 201108/23/2013 IMPRESSI ON: VAGINAL ITCHING AFTER COMPLETI NG ANTIBIOT ICS; RECORDED 10/31/19 12 2:42PM BY NICKY WOODS ON/ADDEN DUM Michelle Degutis abraham [facility] 6 11:38:22 Impacted cerumen 74796015 Completed 09/17/2016 Becky rosario [facility] 7 17:00:46 Hyponatr emia 48051251 Completed 09/04/2017 Dilshad Hall MD [address], [place], [address] 8 06:00:03 Anemia due to chronic blood loss 717829528 Completed 201109/15/2013 RECORDED 10/31/19 12 2:42PM BY NICKY WOODS ON/ADDEN DUM Michelle Degutis abraham [facility] 6 11:38:21 Tobacco user [id number] Completed 201209/15/2013 RECORDED 01/28/20 13 1:17PM BY ALEXANDRE AGUILAR MA, ANNOTATI ON/ADDEN DUM Becky rosario [facility] 7 17:00:35 Chest pain 60160072 Completed 201109/15/2013 RECORDED 10/31/19 12 2:41PM BY NICKY WOODS ON/ADDEN DUM Michelle Degutis abraham [facility] 6 11:38:22 Screenin g for malignan t neoplasm of colon Completed 201209/15/2013 RECORDED 04/30/19 13 2:37PM BY TEA HANDY MA, ANNOTATI ON/ADDEN DUM Michelle Degutis abraham [facility] 6 11:38:22 Divertic ular disease of colon 377834199 Completed 201109/15/2013 STORY: PT WAS SEEN IN OUR OFFICE 11/30/09 FOR RECTAL BLEEDING AND WAS REFERRED TO GI FOR AN EVALUATI ON. THAT EVENING EVERY TIME THE PT ATE SOMETHIN G SHE WOULD BE GOING TO THE BATHROOM TO HAVE A BM THAT WAS FILLED WITH BLOOD. AFTER A FEW TIMES THE PT TOOK HERSELF TO [facility] TO BE EVALUATE D. THE ONLY SX THAT THE PT FELT WAS BLOATING AND CRAMPING EVERYTIM E SHE ATE. PT HAD TO UNDERGO A COLONOSC OPY WITCH SHOWED THAT THE PT HAD BLEEDING COMING FROM THE ASCENDIN G,DESCEN DING, AND TRANSVER SE COLON. PT WAS LATER TRANSFER RED TO [facility] TO BE WATCHED CLOSELY. PT WAS THEN PLACED ON A LIQUID DIET UNTIL THE TIME WHERE SHE COULD TOLERATE SOLID FOOD WITH OUT PASSING A BM THAT WAS BLOODY. MEDICATI ON HAS BEEN RECONSIL ED WITH THE PT AND SHE WILL F/U WITH MGD 12/21/09 .; RECORDED 10/31/19 12 2:41PM BY NICKY WOODS ON/ADDEN TORIE rosario [facility] 6 11:38:21 Hemorrha ge of colon 98612244 Completed 201109/15/2013 STORY: STABLE/ STILL ANEMIC; RECORDED 10/31/19 12 2:41PM BY NICKY WOODS ON/ADDEN TORIE rosario [facility] 6 11:38:22 Dysuria 61241912 Completed 201109/15/2013 IMPRESSI ON: 3+ LEUKOCYT ES ON UA TODAY, COMPLETE D BACTRIM 2 DAYS AGO, START CIPRO AND SEND CULTURE; RECORDED 10/31/19 12 2:41PM BY NICKY WOODS ON/ADDEN DUM Becky rosario [facility] 7 17:01:13 Influenz a vaccine needed [id number] 06 Completed 201209/15/2013 RECORDED 04/30/19 13 2:37PM BY TEA HANDY MA, JERELATI ON/ADDEN DUM Michelle Ervin [facility], [facility] 6 11:38:22 Follow-u p encounte r Completed 201209/15/2013 RECORDED 04/30/19 13 2:37PM BY TEA HANDY MA, ANNOTATI ON/ADDEN DUM Michelle Aziza [facility], [facility] 6 11:38:22 Hypo-osm olality and or hyponatr emia 001522572 Completed 201109/15/2013 RECORDED 10/31/19 12 2:41PM BY NICKY WOODS ON/ADDEN DUM Michelle Aziza [facility], [facility] 6 11:38:21 Impacted cerumen 78714536 Completed 201209/15/2013 RECORDED 01/28/20 13 1:17PM BY ALEXANDRE AGUILAR MA, JERELATI ON/ADDEN DUM Becky Norton [facility], [facility] 7 17:00:46 Renewal of prescrip tion Completed 201209/15/2013 RECORDED 04/30/19 13 2:37PM BY TEA HANDY MA, JERELATI ON/ADDEN DUM Michelle Aziza [facility], [facility] 6 11:38:22 Active or passive immuniza tion Completed 200909/15/2013 RECORDED 03/01/19 10 9:56AM BY PILLO Masters NP, OFFICE VISIT Michelle Aziza [facility], [facility] 6 11:38:22 Examinat ion for suspecte d mental disorder Completed 201109/15/2013 RECORDED 10/31/19 12 2:41PM BY NICKY WOODS ON/ADDEN DUM Michelle Ervin [facility] 6 11:38:22 Pre-surg girish evaluati on Completed 201209/15/2013 IMPRESSI ON: PT IS MEDICALL Y ABLE TO UNDERGO SURGERY, NO ACTIVE ISSUES, IS ABLE TO LAY FLAT AND STILL, EKG NL AND WILL GET LABS; RECORDED 01/28/20 13 1:17PM BY ALEXANDRE AGUILAR MA, NICKY ON/ADDEN DUM Michelle Degutis null, [facility] 6 11:38:22 Tachycar wesley [id number] Completed 201109/15/2013 RECORDED 10/31/19 12 2:42PM BY JEREL WOODSATI ON/ADDEN DUM Michelle Degutis null, [facility] 6 11:38:22 Retentio n of urine 164416106 Completed 201209/15/2013 RECORDED 04/30/19 13 2:37PM BY TEA HANDY MA, NICKY ON/ADDEN DUM Michelle Degutis null, [facility] 6 11:38:22 Vaginiti s and vulvovag initis Completed 201109/15/2013 IMPRESSI ON: VAGINAL ITCHING AFTER COMPLETI NG ANTIBIOT ICS; RECORDED 10/31/19 12 2:42PM BY NICKY WOODS ON/ADDEN DUM Michelle Degutis null, [facility] 6 11:38:22 Anemia due to chronic blood loss 862883126 Completed 201109/16/2013 RECORDED 10/31/19 12 2:42PM BY NICKY WOODS ON/ADDEN DUM Michelle Degutis null, [facility] 6 11:38:21 Tobacco user [id number] Completed 201209/16/2013 RECORDED 01/28/20 13 1:17PM BY ALEXANDRE AGUILAR MA, NICKY ON/ADDEN DUM Becky Norton MA null, [facility] 7 17:00:35 Chest pain 68468304 Completed 201109/16/2013 RECORDED 10/31/19 12 2:41PM BY NICKY WOODS ON/ADDEN DUM Michelle Degutis null, [facility] 6 11:38:22 Screenin g for malignan t neoplasm of colon Completed 201209/16/2013 RECORDED 04/30/19 13 2:37PM BY TEA HANDY MA, ANNOTATI ON/ADDEN DUM Michelle rosario, [facility] 6 11:38:22 Divertic ular disease of colon 282174869 Completed 201109/16/2013 STORY: PT WAS SEEN IN OUR OFFICE 11/30/09 FOR RECTAL BLEEDING AND WAS REFERRED TO GI FOR AN EVALUATI ON. THAT EVENING EVERY TIME THE PT ATE SOMETHIN G SHE WOULD BE GOING TO THE BATHROOM TO HAVE A BM THAT WAS FILLED WITH BLOOD. AFTER A FEW TIMES THE PT TOOK HERSELF TO [facility] TO BE EVALUATE D. THE ONLY SX THAT THE PT FELT WAS BLOATING AND CRAMPING EVERYTIM E SHE ATE. PT HAD TO UNDERGO A COLONOSC OPY WITCH SHOWED THAT THE PT HAD BLEEDING COMING FROM THE ASCENDIN G,DESCEN DING, AND TRANSVER SE COLON. PT WAS LATER TRANSFER RED TO [facility] TO BE WATCHED CLOSELY. PT WAS THEN PLACED ON A LIQUID DIET UNTIL THE TIME WHERE SHE COULD TOLERATE SOLID FOOD WITH OUT PASSING A BM THAT WAS BLOODY. MEDICATI ON HAS BEEN RECONSIL ED WITH THE PT AND SHE WILL F/U WITH MGD 12/21/09 .; RECORDED 10/31/19 12 2:41PM BY NICKY WOODS ON/ADDEN DUM Michelle rosario [facility] 6 11:38:21 Hemorrha ge of colon 31424935 Completed 201109/16/2013 STORY: STABLE/ STILL ANEMIC; RECORDED 10/31/19 12 2:41PM BY NICKY WOODS ON/ADDEN TORIE rosario, [facility] 6 11:38:22 Dysuria 63526073 Completed 201109/16/2013 IMPRESSI ON: 3+ LEUKOCYT ES ON UA TODAY, COMPLETE D BACTRIM 2 DAYS AGO, START CIPRO AND SEND CULTURE; RECORDED 10/31/19 12 2:41PM BY NICKY WOODS ON/ADDEN DUM Becky Norton MA null, [facility] 7 17:01:13 Influenz a vaccine needed [id number] 06 Completed 201209/16/2013 RECORDED 04/30/19 13 2:37PM BY TEA HANDY MA, JERELATI ON/ADDEN DUM Michelle Pacousha rosario, [facility] 6 11:38:22 Follow-u p encounte r Completed 201209/16/2013 RECORDED 04/30/19 13 2:37PM BY TEA HANDY MA, NICKY ON/ADDEN DUM Michelle Pacousha rosario, [facility] 6 11:38:22 Hypo-osm olality and or hyponatr emia 181028972 Completed 201109/16/2013 RECORDED 10/31/19 12 2:41PM BY NICKY WOODS ON/EN DUM Michelle rosario, [facility] 6 11:38:21 Impacted cerumen 13734547 Completed 201209/16/2013 RECORDED 01/28/20 13 1:17PM BY ALEXANDRE AGUILAR MA, NICKY ON/ADDEN TORIE rosario, [facility] 7 17:00:46 Renewal of prescrip tion Completed 201209/16/2013 RECORDED 04/30/19 13 2:37PM BY TEA HANDY MA, NICKY ON/ADDEN DUM Michelle Pacousha rosario, [facility] 6 11:38:22 Active or passive immuniza tion Completed 200909/16/2013 RECORDED 03/01/19 10 9:56AM BY PILLO Masters NP, OFFICE VISIT Michelle rosario, [facility] 6 11:38:22 Examinat ion for suspecte d mental disorder Completed 201109/16/2013 RECORDED 10/31/19 12 2:41PM BY NICKY WOODS ON/ADDEN TORIE Ervin null, [facility] 6 11:38:22 Pre-surg girish hartmanati on Completed 201209/16/2013 IMPRESSI ON: PT IS MEDICALL Y ABLE TO UNDERGO SURGERY, NO ACTIVE ISSUES, IS ABLE TO LAY FLAT AND STILL, EKG NL AND WILL GET LABS; RECORDED 01/28/20 13 1:17PM BY ALEXANDRE AGUILAR MA, ANNOTATI ON/[facility] Degutis null, [facility] 6 11:38:22 Tachycar wesley [id number] Completed 201109/16/2013 RECORDED 10/31/19 12 2:42PM BY NICKY WOODS ON/[facility] Degutis null, [facility] 6 11:38:22 Retentio n of urine 440615761 Completed 201209/16/2013 RECORDED 04/30/19 13 2:37PM BY TEA HANDY MA, ANNOTATI ON/[facility] Degutis null [facility] 6 11:38:22 Vaginiti s and vulvovag initis Completed 201109/16/2013 IMPRESSI ON: VAGINAL ITCHING AFTER COMPLETI NG ANTIBIOT ICS; RECORDED 10/31/19 12 2:42PM BY NICKY WOODS ON/[facility] Degutis null [facility] 6 11:38:22 Dermatit is Completed 09/17/2016 Becky rosario [facility] 7 17:00:48 Dysuria 61402925 Completed 09/17/2016 Becky rosario [facility] 7 17:01:13 Insomnia 365868984 Active Michelle Antonioutedouard null [facility] 6 11:38:21 Advance directiv e discusse d with patient 016311416 Completed 09/17/2016 Becky rosario [facility] 7 17:01:07 Polyp of colon 17619756 Active Michelle Aziza abraham [facility] 6 11:38:21 Chronic low back pain 186913818 Active 2018 Rebeca rosario [facility] 9 14:22:51 Problem Notes None recorded. Procedures Surgical History Date Name Laterality Status Provider Name and Address Organization Details Recorded Time 01/21/20 19 Mini-Cog Test completed Leila Julien MA [facility] 01/20/2019 09:52:44 12/30/19 18 Most Recent Mammogram completed Leila Julien MA [facility] 01/20/2019 09:47:42 12/19/19 18 Mini-Cog Test completed Naheed Veliz [facility] 12/18/2017 13:13:25 12/02/19 17 Fall Risk Assessment completed Becky Norton [place] [facility] 12/01/2016 13:22:35 12/02/19 17 Mini-Cog Test completed Becky Norton [facility] 12/01/2016 13:23:31 11/29/19 17 Mammogram both breasts completed Kimmy Yañez [facility] 12/09/2016 14:44:18 10/17/19 17 Date of Last Colonoscopy completed Paola Kendall [facility] 12/09/2016 16:54:35 10/17/19 17 Colonoscopy completed Becky Norton MA [facility] 10/24/2016 11:43:36 03/23/19 16 Fall Risk Assessment completed Becky Norton MA [facility] 03/23/2015 13:55:01 03/23/19 16 Mini-Cog Test completed Becky Norton [facility] 03/23/2015 14:02:26 03/23/19 16 Advanced Care Planning completed Becky Norton MA [facility] 03/23/2015 13:41:44 08/19/19 15 Date of Last Pap Smear completed Michelle Ervin [facility] 03/28/2015 11:40:33 02/23/19 11 Most Recent Bone Density completed Becky Norton [facility] 03/23/2015 14:07:39 02/09/19 08 Appendectomy completed Tea Helena [facility] 03/02/2014 10:46:37 Imaging Results Imaging Date Name Status LastModified by Organization Details LastModified Time 05/15/2017 electrocardiogram completed Infor mation not available 05/15/2017 12:36:53 06/14/2018 XR, sacrum + coccyx, 2 or more view active [facility] ([facility] Imaging) [address] [place], [address], 06/15/2018 15:07:23 06/14/2018 XR, lumbar spine active [facility] ([facility]pt Imaging) [address] [place], [address], 06/15/2018 15:07:23 Procedure Notes None recorded. Medical Equipment None Reported. Allergies Allergen ID Allergen Name Allergen Category Reaction Reaction Severity Criticality Documentation Date Start Date Code Code System Note Provider Name and Address Organization Details Recorded Time 2935 latex environme nt,medica tion rash Not available Not available 08/23/20132012 25663 91 RxNorm Becky Norton MA [facility] 7 17:00:18 Medications Name Sig [...] Updated DateTime 8 154.94 cm 31.4 kg/m2 67012.4 3 g 98.7 [degF] 96 % 96 % 89 /min 118 mm[Hg] 76 mm[Hg] Becky Norton [facility] 8 11:28:28 Date Recorded Body height Body mass index (BMI) Body weight Heart rate Oxygen saturation Oxygen saturation in Arterial blood by Pulse oximetry Body temperature Systolic blood pressure Diastolic blood pressure Provider Name and Address Organization Details Last Updated DateTime 8 154.94 cm 30.8 kg/m2 81779.5 6 g 94 /min 97 % 97 % 97.5 [degF] 136 mm[Hg] 74 mm[Hg] Jovan Medina [facility] 8 10:41:30 Date Recorded Body height Body mass index (BMI) Body weight Body temperature Heart rate Oxygen saturation Oxygen saturation in Arterial blood by Pulse oximetry Systolic blood pressure Diastolic blood pressure Provider Name and Address Organization Details Last Updated DateTime 8 154.94 cm 30.5 kg/m2 86928.4 7 g 97.2 [degF] 86 /min 96 % 96 % 123 mm[Hg] 72 mm[Hg] Naheed Veliz [facility] 8 12:57:56 Date Recorded Body height Body mass index (BMI) Body weight Heart rate Oxygen saturation Oxygen saturation in Arterial blood by Pulse oximetry Body temperature Systolic blood pressure Diastolic blood pressure Provider Name and Address Organization Details Last Updated DateTime 9 154.94 cm 30.2 kg/m2 96324.7 8 g 92 /min 96 % 96 % 98.4 [degF] 124 mm[Hg] 78 mm[Hg] Ruby Mackey [facility] [place] 9 12:59:19 Date Recorded Body height Body mass index (BMI) Body weight Oxygen saturation Oxygen saturation in Arterial blood by Pulse oximetry Heart rate Body temperature Systolic blood pressure Diastolic blood pressure Provider Name and Address Organization Details Last Updated DateTime 9 154.94 cm 30.7 kg/m2 18606.0 6 g 96 % 96 % 81 /min 98.1 [degF] 119 mm[Hg] 67 mm[Hg] Leila Julien MA [facility] 9 09:56:35 Social History Question Answer Notes LastModified by Organizat ion Details LastModified Time Tobacco Smoking Status Former Smoker ELLIOTT Plascencia, [facility] 09/08/2013 11:26:06 Do You Have [...] E-cigarettes Or Vape? 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 Never Used Smokeless Tobacco [email or web address] Information not available 01/20/2019 How Much Tobacco Do You Smoke? 1 PPW [email or web address] Information not available 01/20/2019 General Stress Level Low Information not available 03/02/2014 Do You Use Sunscreen Routinely? Yes Information not available 03/23/2015 How Many Years Have You Smoked Tobacco? 15 Information not available 12/18/2017 Sex: Unknown Functional Status Question Answer Note LastModified by [employer] ion Details LastModified Time Are you able [...] conjugate PCV 13 5 completed Not Available [facility] 02/26/2019 02:21:36 Influenza, split virus, quadrivalent, PF 5 completed Becky Norton MA [facility] 03/23/2015 14:06:48 Influenza, high-dose, trivalent, PF 7 completed Not Available [facility] 02/26/2019 02:22:21 Novel [id number], all formulations 0 completed Not Available [facility] 08/23/2013 13:38:52 pneumococcal polysaccharide PPV23 0 completed Not Available [facility] 08/23/2013 13:38:52 Influenza, split virus, trivalent, preservative 0 completed Not Available [facility] 08/23/2013 13:38:52 Influenza, split virus, trivalent, preservative 1 completed Not Available [facility] 08/23/2013 13:38:52 Influenza, split virus, trivalent, preservative 2 completed Not Available [facility] 08/23/2013 13:38:52 Influenza, split virus, trivalent, preservative 3 completed Not Available [facility] 08/23/2013 13:38:52 Influenza, high-dose, trivalent, PF 8 completed Not Available [facility] 02/26/2019 02:22:14 Influenza, high-dose, trivalent, PF 9 completed Not Available [facility] 02/26/2019 02:22:09 Past Encounters Encounter ID Performer Location Encounter Start Date Encounter Closed Date Diagnosis/Indication Diagnosis SNOMED-CT Code Diagnosis ICD10 Code Diagnosis Note [id number] Tea Handy Main Office [address] [facility] [address] [place], [place] [address] 09/08/2013 11:14:56 09/08/2013 11:58:13 Essential hypertension 05423828 well controlled Asthma 172896151 followe d by pulm, well controlled on symbicort Anxiety state 939480943 Impacted cerumen 36002355 successful ly removed with ear lavage [id number] auto[facility]Comm erce [address] [facility] [place] [address] 03/01/2009 00:00:00 [id number] autoEComm erce [address] [facility] [place] [address] 03/29/2009 00:00:00 [id number] autoEComm erce [address] [facility] [place] [address] 09/10/2009 00:00:00 [id number] auto[facility]Comm erce [address] [facility] [place] [address] 11/13/2009 00:00:00 [id number] autoEComm erce [address] [facility] [place] [address] 11/30/2009 00:00:00 [id number] autoEComm erce [address] [facility] [place] [address] 12/21/2009 00:00:00 [id number] auto[facility]Comm erce [address] [facility] [place] [address] 02/11/2010 00:00:00 [id number] autoEComm erce [address] [facility] [place] [address] 05/17/2010 00:00:00 [id number] autoEComm erce [address] [facility] [place] [address] 08/23/2010 00:00:00 [id number] autoEComm erce [address] [facility] [place] [address] 09/04/2010 00:00:00 [id number] autoEComm erce [address] [facility] [place] [address] 11/29/2010 00:00:00 [id number] autoEComm erce [address] [facility] [place], [place] [address] 01/10/2011 00:00:00 [id number] autoEComm erce [address] [facility] [place] [address] 05/02/2011 00:00:00 [id number] autoEComm erce [address] [facility] [place] [address] 10/31/2011 00:00:00 [id number] autoEComm erce [address] [facility] [place] [address] 04/29/2012 00:00:00 [id number] autoEComm erce [address] [facility] [place] [address] 07/15/2012 00:00:00 [id number] autoEComm erce [address] [facility] [place] [address] 01/27/2013 00:00:00 [id number] [facility] Main Office [address] [address] [place] [address] 09/26/2013 13:41:44 09/26/2013 14:55:33 Dermatitis 795223419 candidal dermatitis [id number] [facility] Main Office [facility] [address] [place] [address] 03/02/2014 12:39:53 03/02/2014 13:42:38 Essential hypertension 67679231 Hyponatremia 25676741 pt to see Dr Pride regularly/ pt aware that she needs to stop using clorazepat e / see psych referral Anxiety state 861794780 Dysuria 20269339 [id number] Becky Norton PA Main Office [address] [address] [place] [address] 04/21/2014 14:46:19 04/21/2014 15:48:33 Essential hypertension 08391972 both meds helpful/ Diltiazem and lisinopril Gastroesop hageal reflux disease 165409302 pt on PPI Anxiety state 970534279 Asthma 807897056 [id number] Ricardo medellin Main Office [address] [address] [place] [address] 03/23/2015 13:27:48 03/23/2015 14:47:01 Adult health examination 574656112 Z00.00 At [facility] ed risk for falls 465167115 Z91.81 Advance di rective discussed with patient 161348960 Z71.89 pt will have her brother as health care proxy Essential hypertension 78981445 I10 both meds helpful/ Diltiazem and lisinopril Polyp of colon 76076825 K63.5 pt due for colonoscop y 2016 /tubular adenoma/We iss Asthma 401425902 J45.90 9 Anxiety state 454244898 F41.1 [id number] Ricardo medellin Main Office [address] [address] [place] [address] 10/05/2015 12:46:12 10/05/2015 13:40:50 Essential hypertension 38479377 I10 both meds helpful/ Diltiazem and lisinopril Asthma 790583129 J45.90 9 urged pt to get flu shot soon. Anxiety state 735060194 F41.1 [id number] Ricardo medellin Main Office [address] [address] [place] [address] 06/19/2016 12:55:50 06/19/2016 14:13:50 Fatigue 06450455 R53.83 Abnormal weight loss 267 507561 R63.4 Diarrhea 10994929 R19.7 Nausea 062635666 R11.0 d/w pt to elevate HOB/ cont PPI Impaired f asting glycemia 926386808 R73.01 [id number] Ricardo medellin Main Office [address] [address] [place] [address] 10/23/2016 14:30:06 10/23/2016 15:27:24 [id number] Ricardo medellin Main Office [address] [address] [place] [address] 10/31/2016 13:21:48 10/31/2016 14:41:18 Lumbosacral radiculitis 17823768 M54.17 Influenza vaccine needed 3483674576 106 Z23 [id number] Ricardo Carversusana medellin Main Office [address] [address] [place] [address] 12/01/2016 13:04:53 12/01/2016 14:09:38 Adult health examination 539892797 Z00.00 Essential hypertension 69801278 I10 both meds helpful/ Diltiazem and lisinopril Anxiety state 501943931 F41.1 [id number] Ricardo Carversusana medellin Main Office [address] [address] [place] [address] 05/15/2017 11:16:16 05/15/2017 12:12:51 Anxiety state 987021908 F41.1 Essential hypertension 13280374 I10 both meds helpful/ Diltiazem and lisinopril Incomplete emptying of urinary bladder 916101591 R39.14 [id number] Maryanne fernandes Main Office [address] [address] [place] [address] 11/13/2017 10:36:20 11/13/2017 11:18:17 Anxiety state 998927387 F41.1 has been on med for 20+ years, she is taking 3.75mg daily, will try to cut the dose in half if possible. f/u in 1 month for wellness visit. Influenza vaccine needed 7452997726 106 Z23 Gastroesop hageal reflux disease 905373514 K21.9 Essential hypertension 53024319 I10 well controlled , continue meds as directed. [id number] Ramon Callahan MD Main Office [address] [address] [place] [address] 12/18/2017 12:40:39 12/18/2017 13:46:58 Adult health examination 944465657 Z00.00 [facility], she will call [employer]PER[employer] for appt Varicella vaccination 68 859641 Z23 Asthma 843721949 J45.90 9 Essential hypertension 41824433 I10 well controlled , continue meds as directed. Family his tory of Hypercholesterolemia 309662257 Z83.49 Anxiety state 935271008 F41.1 has been on med for 20+ years, she is taking 3.75mg daily, will try to cut the dose in half if possible. f/u in 1 month for wellness visit. [id number] Denis Marcos [facility] Main Office [address] [facility] [address] [place] [address] 06/11/2018 12:42:51 06/11/2018 13:40:40 Low back pain 711954771 M54.5 Patient with chronic low back pain, in PT, seeing chiropract or, but wondering if she should be seeing someone else. Will check XR and refer back to [facility], she has seen them for this in the past. continue sx treatment, ibuprofen as needed. Cramp in lower limb 4499 17390 R25.2 Essential hypertension 79001810 I10 well controlled , continue meds as directed. Fatigue 28412610 R53.83 [id number] Denis Marcos [facility] Main Office [address] [facility] [address] [place] [address] 01/20/2019 09:41:15 01/20/2019 10:33:29 Adult health examination 316160697 Z00.00 hm UTD, she has mammo scheduled, needs to call [employer]PERATOR. Influenza vaccine needed 0595977663 106 Z23 Impaired f asting glycemia 335650445 R73.01 in June, sugar 125 and she believes she was fasting Hyperlipidemia 66251754 E78.5 Health Concerns Section Related Observation LastModified by Organization Detai ls LastModified Time None Recorded Concern Status LastModified by Organization Details LastModified Time None Recorded Advance Directives Directive Y: Payers Encounter Date Sequence Insurance Name Policy Number Policy Menendez Covered Member ID Menendez Member ID Guarantor Name 05/15/2017 2 [place] [id number] Noris E Oparowski [id number] Noris E Ameya 05/15/2017 1 [place] [employer] [place] Noris E Oparowski [id number] 06 [id number] Noris E Isidroki 11/13/2017 2 [place] [id number] Noris E Oparowski [id number] Noris E Ameya 11/13/2017 1 [place] [place] Noris E Oparowski [id number] 06 [id number] Noris E Oparowski 12/18/2017 2 [place] [id number] Noris E Oparowski [id number] Noris E Oparowski 12/18/2017 1 [place] Noris E Oparowski [id number] 06 [id number] Noris E Oparowski 06/11/2018 2 [facility] [id number] Noris E Oparowski [id number] Noris E Oparowski 06/11/2018 1 [place] [employer] [place] Noris E Oparowski [id number] 06 [id number] Noris E Oparowski 01/20/2019 2 [facility] [id number] Noris E Oparowski [id number] Noris E Oparowski 01/20/2019 1 [place] [employer] [place] Noris E Oparowski [id number] 06 [id number] Noris E Oparowski Notes Date Note Type Note Provider Name and Address Organization Details Recorded Time 05/15/2017 text/html Anxiety/Depressi onRepo rted bypatient.Quality:incr eased anxiety; pt reports that sthe plans to return to her pschologist Dr Valdes this year Severity:able to maintain relationships Associated Symptoms:no significant weight gain; mood good; pt has medical terminologist hx of benzo use , > 20 [...] vomiting; no fever;incomplete emptying of bladder Ricardo D'Anthony null, [facility] 05/15/2017 12:16:47 11/13/2017 text/html Anxiety/Depressi onRepo rted bypatient.Quality:incr eased anxiety; stress, car trouble Severity:able to maintain relationships Context:major life stressors;family problems Associated Symptoms:no significant weight gain;high irritability;hostility ;anxiety;hypersensitiv ity;anxiety with muscle tension; pt has fpc hx of benzo use , > 20 yearsNotes:+ hx nausea and diarrhea, panic attacks etc Maryanne KhanSofiya rosario [facility] 11/13/2017 12:41:13 12/18/2017 text/html Medicare Annual Wellness [...] working on it) Ramon Callahan MD [address] [address], [place], [address], [facility] 12/19/2017 16:52:49 06/11/2018 text/html Generic HPI TemplateReported [...] legs. DR saw Dr. Miller at [facility]. Was discharged in 2017 due to improvement with PT. 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 Since the fall her back pain is worse. NICOLÁS Fay [address] [address], [place], [address], [facility] 06/11/2018 13:40:34 01/20/2019 text/html Medicare Annual Wellness [...] states she found a new PCP in [place] but cannot be seen until May. Denis Marcos [facility] [address] [address], [place], [address], [facility] 01/20/2019 10:57:40 OBGyn Episode No OBEpisode recorded.
== END 2024-04-22 13:29 | disposition home or self-care (01) ==
LOC: HO.ACS 13:04
PROVIDERS: PCP Family Medicine; Visit Provider Internal Medicine
DX: Z79.01 Long term (current) use of anticoagulants (principal)

== ENCOUNTER → 2024-04-22 13:04 | Outpatient (BNVA) | payer MEDICARE, MEDICAID, SELFPAY | PROVIDERS: PCP Family Medicine; Visit Provider Internal Medicine | DX: I26.94 Multiple subsegmental thrombotic pulmonary emboli without acute cor pulmonale (principal); Z86.718 Personal history of other venous thrombosis and embolism; Z79.01 Long term (current) use of anticoagulants; Z51.81 Encounter for therapeutic drug level monitoring | CPT/HCPCS: 85610; 99211 ==

== ENCOUNTER 2024-05-06 13:03 | Outpatient (AMB) | payer MEDICARE, MEDICAID, SELFPAY ==
--- NOTE | 2024-05-06 13:15 | MHC.OFFVISCO ---
Intake Intake Visit Reasons: Anticoagulation Allergies Seasonal Allergies Allergy (Mild, Verified 05/06/24 13:04) runny nose latex Allergy (Verified 05/06/24 13:04) rash Medication List - Last Reconciled 05/06/24 by Mirella Cooley RN albuterol sulfate 90 mcg/actuation 2 puffs inhalation Q8H PRN cephalexin 500 mg PO BID cetirizine (Zyrtec) 10 mg PO DAILY PRN cholecalciferol (vitamin D3) 50 mcg PO DAILY citalopram 20 mg PO DAILY 90 days clonazepam 0.5 mg PO BID PRN diltiazem HCl CD 120 mg PO DAILY 90 days fluticasone propion-salmeterol 500-50 mcg/dose (Wixela Inhub) 1 inh inhalation BID fluticasone propionate 50 mcg/actuation (Flonase Allergy Relief) 1 spray intranasal Q12H 30 days gabapentin 300 mg PO BID losartan 25 mg PO DAILY omeprazole 20 mg PO DAILY tamsulosin 0.4 mg PO BEDTIME 90 days warfarin 2 mg See Protocol PO DAILY 30 days Nursing Note INR: 2.8 in therapeutic range of 2-3 Pt states she will be 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 Then the following day will have plastic surgery on the nose. Medications and supplements reviewed No changes in health, diet, medications, or supplements, Denies any signs and symptoms of bleeding or bruising or clotting. Bleeding, bruising, clotting discussed Nutritional guidance given Dose: 1mg X 6 days and 2mg X 1 day () F/U INR: 3 weeks Patient verbalizes understanding of instructions given Anti-Coag Initial Assessment Social Hx Patient Tobacco Use Status: Former Tobacco user (20 years quit around age 51 ) Tobacco use type: Cigarette Smoking packs per day: 1.0 alcohol intake: current Alcohol intake frequency: 0-2 drinks per day (about 2 daily with ice ) Cardiovascular Hx: HTN and Other (edma right foot > left foot had dvt ) Lung Disease HX: Asthma, COPD (believe r/t to work exposure and smoking) and DVT/PE (2022 after having RSV and covid vaccines- pt feels r/t to vaccines also ) Endocrine Hx: Diabetes (being monitored ) Musculoskeletal Hx: Arthritis (mostly hand - all over, ) GI Hx: Bleeding (GI, rectal) (age 60s x 2 weeks 10 blood transfusions no found cause at the time - and none since then ) and Diverticulosis Hx: Bladder Disorders (URGENCY ) and Other (UPCOMING RENAL EVALUATIONS ) Cancer HX: Yes (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 Illness/Depression: Yes (anxiety ) Coding Level of Care Code Est Patient Level 1 Diagnoses Current use of anticoagulant therapy Z79.01 Results AMB INR Fingerstick AMB INR Fingerstick 2.8 Last Edit by Mirella Cooley RN on 05/06/24 13:14 interface delay Assessment & Plan Assessment & Plan (1) Current use of anticoagulant therapy: Code(s): Z79.01 - long-term (current) use of anticoagulants Category: Medical
[2024-05-06 13:28] LABS: Prothrombin Time Whole Bld POC 34.1 sec (11.1-13.5); ~PT, ~INR - Anti Coag Clinic 2.8 (0.9-1.1)
== END 2024-05-06 13:26 | disposition home or self-care (01) ==
LOC: HO.ACS 13:03
PROVIDERS: PCP Family Medicine; Visit Provider Internal Medicine Medical Oncology
DX: Z79.01 Long term (current) use of anticoagulants (principal)

== ENCOUNTER → 2024-05-06 13:03 | Outpatient (BNVA) | payer MEDICARE, MEDICAID, SELFPAY | PROVIDERS: PCP Family Medicine; Visit Provider Internal Medicine Medical Oncology | DX: I26.94 Multiple subsegmental thrombotic pulmonary emboli without acute cor pulmonale (principal); Z86.718 Personal history of other venous thrombosis and embolism; Z79.01 Long term (current) use of anticoagulants; Z51.81 Encounter for therapeutic drug level monitoring | CPT/HCPCS: 85610; 99211 ==

== ENCOUNTER 2024-05-10 10:38 | Outpatient (AMB) | payer MEDICARE, MEDICAID, SELFPAY ==
[2024-05-10 10:48] VITALS: BP 112/50; PULSE 88; O2SAT 95; BMI 30.2
--- NOTE | 2024-05-10 10:48 | A.OFFVIS_ITS ---
Vital Signs 05/10/24 10:48 Height 5 ft 1 in Weight 159 lb 13.362 oz BMI 30.2 BP 112/50 L Blood Pressure Location Rt brachial Position Sitting Pulse 88 Pulse Source Pulse Oximeter Pulse Oximetry (%) 95 Oxygen Delivery Method Room Air Intake Visit Reasons: COPD Allergies Seasonal Allergies Allergy (Mild, Verified 05/10/24 10:52) runny nose latex Allergy (Verified 05/10/24 10:52) rash HPI Comments Details: The patientis a 83 y/o woman with a history of COPD. Overall doing well on the Symbicort. She does take it daily. Has not had to use her rescue inhaler. She does complain of an intermittent cough, mild in severity. Also has dyspnea on exertion with activity. She also complains of back pain, moderate in severity. She recently was evaluated for hyponatremia. In view of the hyponatremia I will request a chest xray. 02/28/2022 this is a telehealth visit. The patient recently was hospitalized at [facility] after developing significant shortness breath hypoxia. She had called the office in the triage nurse recommended that she go to the ER. Therefore she went via ambulance. She was found to have bilateral pulmonary emboli. The patient was placed on Coumadin because Eliquis was too expensive and she is tolerating that well. She was subsequently discharged lower extremity Dopplers were not done and an echocardiogram was not done. After she was discharged she did follow-up with primary care doctor who did a lower extremity Doppler findings small clot. I explained to the patient that the Coumadin will help stop the propagation of clot but will take a couple months to completely resolve all the clots. The patient did not get an echocardiogram. She does have some dyspnea on exertion. She is no longer on oxygen only in the hospital. Will go and have her undergo an echocardiogram at this time. At this point appears that the pulmonary emboli is consistent with an unprovoked event to therefore she should continue the Coumadin for and indefinite amount of time. Patient understands that she is high risk for recurrence if she stops Coumadin at this time. 06/02/2022 the patient is here for a pulmonary follow-up visit. Overall the patient has been doing well. The patient continues on the Coumadin although the levels go up and down. She recently developed nasal congestion and postnasal drip and significant drainage. She also has an irritation the tip of her nose on her left nostril. She is not sure if she has any infection. Although I explained to her that taking oral antibiotics in view of the Coumadin specially with her elevated INR it may result in further elevations in the INR level. The secretions her nose appear to be thin. Will go ahead and start her on ipratropi um nasal spray to try to Dr. Lassiter and also will place her on Bactroban to try to treat for a local infection. If the patient is no better she can always call and I can send her a course of doxycycline for sinusitis. She continues on the Coumadin for the unprovoked blood clots. She understands that with the unprovoked nature she should continue with the Coumadin lifelong. Patient does have a schedule procedure for a scan anomaly. I did explain to her that she can always stop the Coumadin but 4 days check her INR prior to the procedure and then have the procedure done safely and then go back on the Coumadin. 12/04/2022 the patient is here for a pulmonary follow-up visit. Overall the patient has been doing well. Recently had skin cancer surgery. Healing well. The patient still on Coumadin. She is had a hard time controlling does been fluctuating off. Therefore she was prescribed Eliquis. Get into a program to be able to get a reasonable schwartz. Otherwise she can not afford it. She has not started the Eliquis as of yet. I did encourage her to started also some more effective anticoagulation and less risk specially with her INR fluctuations the patient has been on anticoagulation since January. A good talk to her that once she completes the 1 year medardo afterwards we can consider a prophylactic dose of Eliquis 2.5 mg twice a day. However, and start the farm mg twice a day. The patient is having some dyspnea exertion. Moderate severity. Patient would benefit from pulmonary rehabilitation time. She does continue to use respiratory inhalers with partial improvement her symptoms. Will go ahead and request PFTs pulmonary rehab at [place]. 06/03/2023 the patient is here for a pulmonary follow-up visit. Overall she has been doing well. She continues on the Coumadin. She opted not switching over to Eliquis. Although she still has fluctuation of her INR. The to feels more comfortable knowing her INR numbers however. we did review her CT scan that she had back in 2021 and she had the blood clots. personally by me. No evidence of any nodular densities to follow. Although at this point based on the fact that the patient has been on the anticoagulation she continues to have some dyspnea on exertion. Will go ahead and request a perfusion study to make sure that there is complete resolution of her clots. If indeed she has resolution of her clots. she continues use her inhalers with good effect. Does not use her rescue inhaler more than twice a week. Otherwise patient is without any other complaints. 11/10/2023 the patient is here for a pulmonary follow-up visit. Overall the patient has been doing well. Switched over from the AirDuo to the Wixela. She is currently 500/50 dose. She says his strong but she is doing okay with it. I did recommend she can continue for now but the next visit will talk about the increasing the dose to 250 mcg dose. She is agreeable to this. In addition to that switched over from the Coumadin to the Eliquis. She seems to be tolerating that. Although she is getting a rash and she was not know exactly what potential thing is causing it. She also has lower extremity edema which could also be a medication side effect. The patient will be seen an pan reclaim processor soon to try to evaluate the rash in the pleuritis. For now she has antihistamine therapy that she can use. The patient did have a chest x-ray which I personally reviewed from October demonstrating did persistent hiatal hernia issue. No other significant findings noted. The patient does not appear to be symptomatic due to the hiatal hernia. She also had lower extremity Dopplers demonstrating no evidence of any DVT in lower extremities. 05/10/2024 the patient is here for a pulmonary follow-up visit. Overall she is doing okay although she can not tolerate the powder inhalers. There Wixela bothers her throat. She wants to go back on HFA inhaler. She did very well on Symbicort. Although it does not appear that Symbicort is covered. The may cover Dulera. I will switch over to Dulera this time with the fact that she did not tolerate the powder inhalers. In addition to that she is dealing with skin cancer. She is going to undergo surgery soon. His right her nose and she is likely going to need Plastic surgery. From a pulmonary standpoint the patient is doing okay. She did have a chest x-ray which I personally reviewed demonstrating the evidence of likely a large hiatal hernia. She knows to make sure that she sleeps elevated being careful with small meals and with the reflux diet. Will plan to follow-up in 6-8 months. If any issues arise the patient will call for an earlier assessment. [facility] Medical History Swelling of both lower extremities Pulmonary emboli (~01/2022) Skin cancer History of COVID-19 Essential hypertension Chronic allergic rhinitis Hyponatremia Asthma-COPD overlap syndrome Surgical History History of esophagogastroduodenoscopy (EGD) History of colonoscopy Family History Mother Breast cancer Father Prostate CA Stroke Social History Household Members: None Housing: House Housing Other:: mobile home- friend to be moving in Alcohol intake: current Alcohol intake frequency: 0-2 drinks per day (about 2 daily with ice ) Patient Tobacco Use Status: Former Tobacco user (20 years quit around age 51 ) Tobacco use type: Cigarette Cigarette Packs Per Day: 1.0 Years Smoked: 10 years e-Cigarette/Vaping Use: Never Used Second Hand Smoke Exposure: No service: No Current occupational status: retired 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 Current occupational exposures/hazards: No Cognitive needs: No Hearing needs: No Vision needs: No Review of Systems Const Denies chills, Denies fatigue, Denies fever(s), Denies headache(s) and Denies weakness ENT Denies dizziness and Denies headache(s) Card Denies chest pain, Denies lightheadedness, Denies dyspnea, Reports dyspnea on exertion and Denies other (Palpitations) Resp Denies cough, Denies dyspnea, Reports dyspnea on exertion, Denies wheezing and Denies other ( shortness of breath) Musc Denies numbness and Denies tingling Neuro Denies dizziness, Denies headache(s), Denies numbness, Denies tingling, Denies paresthesias and Denies weakness Psych Denies anxiety and Denies depression Endo Denies fatigue Aller/Immun Denies wheezing Physical Exam Vital Signs: Last Vital Signs Pulse 88 05/10/24 10:48 BP 112/50 L 05/10/24 10:48 Pulse Ox 95 05/10/24 10:48 Oxygen Delivery Method Room Air 05/10/24 10:48 BMI result Body Mass Index 30.2 Const General: alert Neck Neck: Yes normal visual inspection, Yes full ROM and Yes no lymphadenopathy Chest Chest palpation & inspection: normal inspection of the chest Resp Effort & Inspection: normal respiratory effort Auscultation: diminished lung sounds Cardio Rate: regular rate Rhythm: regular rhythm Heart sounds: S1 normal heart sound present and S2 normal heart sound present GI Palpation (GI): Soft to palpation and nontender Auscultation: normal bowel sounds Skin General skin exam: rashes and/or lesions noted Assessment & Plan Assessment & Plan (1) Asthma-COPD overlap syndrome: Code(s): J44.9 - Chronic obstructive pulmonary disease, unspecified Category: Medical (2) COPD (chronic obstructive pulmonary disease): Code(s): J44.9 - Chronic obstructive pulmonary disease, unspecified Category: Medical Qualifiers: COPD type: chronic bronchitis Chronic bronchitis type: simple Qualified Code(s): J41.0 - Simple chronic bronchitis (3) Pulmonary emboli: Onset Date: ~01/2022 Code(s): I26.99 - Other pulmonary embolism without acute cor pulmonale Category: Medical Qualifiers: Pulmonary embolism type: multiple subsegmental (without acute cor pulmonale) Qualified Code(s): I26.94 - Multiple subsegmental pulmonary emboli without acute cor pulmonale Plan stop Wixela, does not tolerate the powder, sent Dulera PRABHU as needed continue Duoneb BID as needed Nasal rinsing OTC allergy therapy F/U 6-8 months Medications: New mometasone-formoterol 200-5 mcg/actuation (Dulera) 2 puffs inhalation Q12H 13 grams 11RF 30 days Discontinued fluticasone propion-salmeterol 500-50 mcg/dose (Wixela Inhub) Discontinued Reason: Doctor's Order 1 inh inhalation BID 60 ea 0RF Coding Level of Care Code Est Pt Level 4 (62612) Diagnoses Asthma-COPD overlap syndrome J44.9 Simple chronic bronchitis J41.0 COPD type: chronic bronchitis Chronic bronchitis type: simple Multiple subsegmental pulmonary emboli without acute cor pulmonale I26.94 Pulmonary embolism type: multiple subsegmental (without acute cor pulmonale) Time Spent (min) 16
--- OUTSIDE RECORDS SUMMARY | 2024-05-10 12:42 | XMS_ITS | Continuity of Care Document ---
Author Organization [facility] Address [address] [place] [address] [address] [place] [address]- Care Team Providers Care Probation Supervisor Name Role Phone Basia AGUILA, Ric Greene Primary Care Physician Encounter [facility] Date(s): 05/02/24 - 05/09/24 [facility] [address] [place] [id number] Attending Physician: Sachin Manzano MD Referring Physician: Syd Maria MD Encounter Type: Office Visit Allergies, Adverse Reactions, Alerts Substance Criticality Severity Reaction Reaction Severity Status Latex Unable to assess criticality Unknown rash Active Immunizations Given and Recorded Vaccine Date Status Refusal Reason tetanus/diphtheria/pertussis, acel(Tdap) 10/06/22 Given tetanus/diphtheria/pertussis, acel(Tdap) 08/27/11 Recorded SARS-CoV-2 mRNA ([id number]) vax 03/29/21 Recorded SARS-CoV-2 (COVID-19) mRNA BNT-162b2 vac 05/12/20 Recorded SARS-CoV-2 (COVID-19) mRNA BNT-162b2 vac 04/21/20 Recorded influenza virus vaccine, inactivated 10/28/19 Marty rded influenza virus vaccine, inactivated 01/20/19 Marty rded influenza virus vaccine, inactivated 11/13/17 Marty rded influenza virus vaccine, inactivated 10/31/16 Marty rded influenza virus vaccine, inactivated 11/09/14 Marty rded influenza virus vaccine, inactivated 12/10/12 Marty rded influenza virus vaccine, inactivated 10/31/11 Marty rded influenza virus vaccine, inactivated 11/29/10 Marty rded influenza virus vaccine, inactivated 11/13/09 Marty rded pneumococcal 13-valent vaccine 04/21/14 Recorded pneumococcal 23-valent vaccine 03/01/09 Recorded Medications citalopram 20 mg oral tablet 20 mg, 1, tablet, By Mouth, Daily, # 30 tablet, Refills 0, Maintenance, 01/28/22 3:36:00 AM EST, Partial fill upon patient request if the prescription is for a schedule II opioid drug. Start Date: 01/28/22 Status: Ordered Quantity: 30.0 Unit: tablet Repeat number: 1 clonazePAM 0.5 mg oral tablet 1 tablet = 0.5 mg, By Mouth, 2 times a day, PRN Anxiety, 0 Refills, Maintenance, 01/28/22 3:34:00 AM EST, Tablet, Partial fill upon patient request if the prescription is for a schedule II opioid drug. Start Date: 01/28/22 Status: Ordered Repeat number: 1 Dilt-XR 120 mg/24 hours oral capsule, extended release 1 capsule = 120 mg, By Mouth, Daily, # 30 capsule, 0 Refills, Maintenance, 01/28/22 3:36:00 AM EST,ER Capsule, Partial fill upon patient request if the prescription is for a schedule II opioid drug. Start Date: 01/28/22 Status: Ordered Quantity: 30.0 Unit: capsule Repeat number: 1 Flomax 0.4 mg oral capsule 0.4 mg, 1, capsule, By Mouth, Daily at bedtime, Refills 0, Maintenance, 01/27/22 4:12:00 PM EST, Partial fill upon patient request if the prescription is for a schedule II opioid drug. Start Date: 01/27/22 Status: Ordered Repeat number: 1 Gabapentin = 300 mg, By Mouth, 2 times a day, 0 Refills, Maintenance, 01/28/22 3:35:00 AM EST, Partial fill upon patient request if the prescription is for a schedule II opioid drug. Start Date: 01/28/22 Status: Ordered Repeat number: 1 losartan 25 mg oral tablet 1 tablet = 25 mg, By Mouth, Daily, # 30 tablet, 0 Refills, Maintenance, 05/02/24 2:21:00 PM EDT, Tablet, Partial fill upon patient request if the prescription is for a schedule II opioid drug. Start Date: 05/02/24 Status: Ordered Quantity: 30.0 Unit: tablet Repeat number: 1 Omeprazole = 20 mg, By Mouth, Daily, 0 Refills, Maintenance, 01/28/22 3:36:00 AM EST, Partial fill upon patient request if the prescription is for a schedule II opioid drug. Start Date: 01/28/22 Status: Ordered Repeat number: 1 warfarin 2 mg oral tablet See Instructions, Take 1 to 2 tablets by mouth once daily as directed by coumadin clinic, # 120 tablet, 4 Refills, Maintenance, 05/12/22 11:49:00 AM EDT, [id number], Partial fill upon patient request if the prescription is for a schedule II opioid drug., 155, cm, 04/23/22 11:58:00 EDT, Height, 72, kg, 04/23/22 11:58:00 EDT, Dry Weight Start Date: 05/12/22 Status: Ordered Quantity: 120.0 Unit: tablet Repeat number: 5 Problem List Condition Confirmation Course Effective Dates Status Health St atus Informant Generalized anxiety disorder Confirmed Active Hyponatremia Confirmed Active Vital Signs Most recent to oldest [Reference Range]: 1 Height 155 cm (05/02/24 2:18 PM) Weight 72 kg (05/02/24 2:18 PM) Body Mass Index [18.5-24.99 kg/m2] 29.97 kg/m2 *H* (05/02/24 2:18 PM) Weight Obtained Via Standing scale (05/02/24 2:18 PM) Social History Social History Type Response Smoking Status Former smoker, quit more than 30 days ago entered on: 07/08/19 Sex Sex Representation Female (finding) Patient Care team information Care Team Personnel Name: Ric Flor MD Position: S Outreach Member Role: PCP Address: [address] [place] [address] Telecom: Care Team Related Persons Name: LUISITO LUZ Name: CLAUDIA ELENA Name: FIDENCIO MAGAÑA Insurance Providers Guarantor name: ELVER GARCIAANGIE Health Plan Information #: 3 [facility] Number: [id number] Policy Number: NA Group Number: NA Health Plan Information #: 2 Payer: [employer]EX Member Number: [id number] Policy Number: [place] Group Number: [place]TON Health Plan Information #: 1 Payer: MEDICARE PART B OUTPT Member Number: [id number] Policy Number: PEYTON Group Number: [id number]
--- OUTSIDE RECORDS SUMMARY | 2024-05-10 12:42 | XMS_ITS | Data Portability ---
Author Organization [facility], Main Office Address [address] [place] [address] Care Team Providers Care Attendant Honor Bar Name Role Phone ABDIEL ORETGA Manual Training Teacher GRACIELA MILLER Urologist ABDIEL LOZANO Service Officer URBAN PRIDE Open Developer Operator HUMBERTO SINGH Hand Painter RICARDO HUGHES Chiropractor [facility] Physical Therapist DENIS MARCOS Primary Care Provider [phone] Assessment No assessment recorded. Plan of Treatment Reminders Order Date Submit Date Provider Last Modified By Organization Details Last Modified Time Details Appointments None recorded. Lab HbA1c (hemoglob in A1c), blood 2018 019 [email or web address] [facility] (Centralized Electronic Ordering - All Locations), Patient Can Go To The Location Of Their Choice, [id number] 0 09:38:13 BMP, serum or plasma 2018 019 [employer] [facility] (Centralized Electronic Ordering - All Locations), Patient Can Go To The Location Of Their Choice, [address] 0 09:38:13 lipid panel, serum 2018 019 [employer] [facility] (Centralized Electronic Ordering - All Locations), Patient Can Go To The Location Of Their Choice, [address] 0 09:38:13 magnesium , serum or plasma [...] 15:24:52 CMP, serum or plasma 2017 018 [facility] ([facility] Order[facility] - All Locations), Patient Can Go To The Location Of Their Choice, 11:56:02 Referral spine center referral - patient in 2017, MRI showed crowding L2 nerve root on the left, having worsenign sx of sciatic pain, low back pain, leg pains bilateral ly. 2018 isaías [facility], [address] [place] [address], [place], [address], 17:23:40 physical therapist referral - At risk for [facility], [address] [place], [address], 8 16:26:43 urologist referral - pt has not seen urology in 2 years or more and wants to have consultat ion w/ urologist rather than TAPE TRANSFERRER 2017 018 scott Crane MD, [address], [address], [place], [address], 8 13:35:13 Procedures None recorded. Surgeries None recorded. Imaging XR, lumbar spine - chronic low back pain, worsening s/p fall in february [id number] 019 [facility], [address] [place] [address], [address], 9 10:29:46 XR, sacrum + coccyx - s/p fall in february, hx low back arthritis . pain worsening 2018 019 [facility], [address] [place] [address], [address], 9 10:29:44 Medication Orders clorazepa te dipotassi um 3.75 mg tablet 2017 018 INTERFACE [id number], [address] [place], [address], 8 11:18:58 tamsulosi n 0.4 mg capsule 2017 018 [id number], [address] [place], [address], 8 13:01:14 clorazepa te dipotassi um 3.75 mg tablet 2017 018 [facility]FACE [id number], [address] [place], [address], 8 12:05:21 Patient TargetsNo targets recorded. Patient Instructions Encounter Date Encounter Id Patient Instructions Last Modified By Organization Details Last Modified Time 11/13/2017 [id number] anxiety disorder: care instructions [email or web address] Not available 11/13/2017 11:18:44 call or return for worsening or concerns. [email or web address] Not available 11/13/2017 11:13:19 I have reviewed the note and agree with the assessment and plan of care. dolores Not available 11/13/2017 12:41:01 12/18/2017 [id number] preventing falls: care instructions [email or web address] Not available [...] medication. [email or web address] Not available 12/18/2017 13:20:44 06/11/2018 [id number] low back pain: exercises [email or web address] Not available 06/11/2018 13:24:20 call or return for worsening or concerns. [email or web address] Not available 06/11/2018 13:22:08 01/20/2019 [id number] preventing falls: care instructions [email or web address] Not available 01/20/2019 10:20:59 call or return for woraening or concerns. [email or web address] Not available 01/20/2019 10:20:56 Reviewed the risks and benefits of joint terminal attack controller opiate use, OUD discussed with the patient. Reviewed the risks and benefits of other non-opioid pain therapies. Reviewed caution with driving, fall risk, treatment for constipation. Patient verbalizes understanding of risk and benefits, and of OUD. [email or web address] Not available 01/20/2019 09:46:37 Reason for Referral Urologist Referral for Incom plete emptying of urinary bladder pt has not seen urology in 2 years or more and wants to have consultation w/ urologist rather than TAPE TRANSFERRER Referring Physician: Ricardo Dhillon, Internal Medicine, Encounter [...] ce of an acute proces s. WSN: [id number] Dictat ed By: Delonte Barrios MD Dictat ed Date/T erlinda: 10:26 a Review ed By: Delonte Barrios MD Signed By: Delonte Barrios MD Signed Date/T erlinda: 10:26 am Transc ribed By: PASTORA Transc ribed Date/T erlinda: 10:24 am Patien t Class: Outpat ient [facility] [address] [place], [address], 06/15/2018 15:07:23 06/15/19 19 06/14/2018 XR, lumba [...] ce of an acute proces s. WSN: [id number] Dictat ed By: Delonte Barrios MD Dictat ed Date/T erlinda: 10:26 a Review ed By: Delonte Barrios MD Signed By: Delonte Barrios MD Signed Date/T erlinda: 10:26 am Transc ribed By: PASTORA Transc ribed Date/T erlinda: 10:24 am Patien t Class: Outpat ient [facility] [address] [place], [address], 06/15/2018 15:07:23 Result Notes None recorded. Problems Name Problem SNOMED Code Status Onset Date Resolution Date Notes Provider Name and Address Organization Details Recorded Time Anemia due to chronic blood loss 125299651 Completed 201108/23/2013 RECORDED 10/31/19 12 2:42PM BY NICKY WOODS ON/ADDEN DUM Michelle Ervin abraham [facility] 6 11:38:21 Anxiety state 060222687 Active 2012 Becky rosario [facility] 7 17:00:55 Tobacco user 597916586 Completed 201208/23/2013 RECORDED 01/28/20 13 1:17PM BY ALEXANDRE AGUILAR MA, ANNOTATI ON/ADDEN DUM [facility] 7 17:00:35 History of clinical finding in subject 118459402 Completed 201209/17/2016 RECORDED 01/28/20 13 1:17PM BY ALEXANDRE AGUILAR MA, ANNOTATI ON/ADDEN DUM Becky rosario [facility] 7 17:01:11 Asthma 319106986 Active 2012 Becky rosario [facility] 7 17:00:52 Screenin g for malignan t neoplasm of breast Completed 201410/31/2016 Dr. Susy Ortega, negative Becky rosario [facility] 7 13:35:13 Screenin g for malignan t neoplasm of breast Completed 201108/23/2013 RECORDED 10/31/19 12 2:41PM BY JEREL WOODSATI ON/ADDEN DUM Becky rosario, [facility] 7 13:35:13 Chest pain 12948852 Completed 201108/23/2013 RECORDED 10/31/19 12 2:41PM BY JEREL WOODSATI ON/ADDEN DUM Michelle Degutedouard null, [facility] 6 11:38:22 Screenin g for malignan t neoplasm of colon Completed 201208/23/2013 RECORDED 04/30/19 13 2:37PM BY TEA HANDY MA, ANNOTATI ON/ADDEN DUM Michelle Degutedouard null, [facility] 6 11:38:22 Divertic ular disease of colon 415999531 Completed 201108/23/2013 STORY: PT WAS SEEN IN OUR OFFICE 11/30/09 FOR RECTAL BLEEDING AND WAS REFERRED TO GI FOR AN EVALUATI ON. THAT EVENING EVERY TIME THE PT ATE SOMETHIN G SHE WOULD BE GOING TO THE BATHROOM TO HAVE A BM THAT WAS FILLED WITH BLOOD. AFTER A FEW TIMES THE PT TOOK HERSELF TO [facility] TO BE EVALUATE D. THE ONLY SX THAT THE PT FELT WAS BLOATING AND CRAMPING EVERYTIM E SHE ATE. PT HAD TO UNDERGO A COLONOSC OPY WITCH SHOWED THAT THE PT HAD BLEEDING COMING FROM THE ASCENDIN G,DESCEN DING, AND TRANSVER SE COLON. PT WAS LATER TRANSFER RED TO [facility] TO BE WATCHED CLOSELY. PT WAS THEN PLACED ON A LIQUID DIET UNTIL THE TIME WHERE SHE COULD TOLERATE SOLID FOOD WITH OUT PASSING A BM THAT WAS BLOODY. MEDICATI ON HAS BEEN RECONSIL ED WITH THE PT AND SHE WILL F/U WITH MGD 12/21/09 .; RECORDED 10/31/19 12 2:41PM BY JEREL WOODSATI ON/ADDEN DUM Michelle Antoniousha null, [facility] 6 11:38:21 Hemorrha ge of colon 03707437 Completed 201108/23/2013 STORY: STABLE/ STILL ANEMIC; RECORDED 10/31/19 12 2:41PM BY NICKY WOODS ON/ADDEN DUM Michelle rosario [facility] 6 11:38:22 Divertic ulitis of colon 252716933 Active 2011 Becky rsoario [facility] 7 17:00:37 Dysuria 31456912 Completed 201108/23/2013 IMPRESSI ON: 3+ LEUKOCYT ES ON UA TODAY, COMPLETE D BACTRIM 2 DAYS AGO, START CIPRO AND SEND CULTURE; RECORDED 10/31/19 12 2:41PM BY NICKY WOODS ON/ADDEN DUM Becky rosario [facility] 7 17:01:13 Gastroes ophageal reflux disease 434571628 Active 2012 Bceky rosario [facility] 7 17:00:59 [facility] julisa 04264320 Active 2012 Becky rosario [facility] 7 17:01:17 [facility]ia [facility] hyperten julisa 67659295 Completed 201108/23/2013 RECORDED 10/31/19 12 2:41PM BY NICKY WOODS ON/ADDEN DUM Becky rosario [facility] 7 17:01:17 External hemorrho ids 56531516 Active 2012 Becky rosario [facility] 7 17:01:03 Influenz a vaccine needed 54020745557 06 Completed 201208/23/2013 RECORDED 04/30/19 13 2:37PM BY TEA HANDY MA, ANNOTATI ON/ADDEN DUM Michelle rosario [facility] 6 11:38:22 Follow-u p encounte r Completed 201208/23/2013 RECORDED 04/30/19 13 2:37PM BY TEA HANDY MA, ANNOTATI ON/ADDEN DUM Michelle Degutis null, [facility] 6 11:38:22 Tobacco user 797857320 Active 2012 Becky rosario, [facility] 7 17:00:35 Adult health examinat ion Completed 201209/17/2016 STORY: COLONOSC OPY DUE SS/TUBUL AR ADENOMA; RECORDED 01/28/20 13 1:58PM BY RICARDO COLE MD, OFFICE VISIT Becky rosario, [facility] 7 17:01:05 Adult health examinat ion Completed 201208/23/2013 RECORDED 04/30/19 13 2:37PM BY TEA HANDY MA, ANNOTATI ON/ADDEN DUM Becky rosario, [facility] 7 17:01:05 Hearing loss 33276113 Active 2012 Becky rosario, [facility] 7 17:00:40 History of Malignan t melanoma 165618462 Active 2013 Becky rosario, [facility] 7 17:00:45 Hypo-osm olality and or hyponatr emia 857854677 Completed 201108/23/2013 RECORDED 10/31/19 12 2:41PM BY NICKY WOODS ON/ADDEN DUM Michelle Degutedouard null, [facility] 6 11:38:21 Impacted cerumen 47929821 Completed 201208/23/2013 RECORDED 01/28/20 13 1:17PM BY ALEXANDRE AGUILAR MA, ANNOTATI ON/ADDEN DUM Becky rosario, [facility] 7 17:00:46 Irritabl e bowel syndrome 37215984 Active 2012 Becky rosario [facility] 7 17:00:31 Renewal of prescrip tion Completed 201208/23/2013 RECORDED 04/30/19 13 2:37PM BY TEA HANDY MA, ANNOTATI ON/ADDEN DUM Michelle Degutis null, [facility] 6 11:38:22 Malignan t melanoma of skin 13285864 Active 2013 Becky rosario, [facility] 7 17:01:28 Active or passive immuniza tion Completed 200908/23/2013 RECORDED 03/01/19 10 9:56AM BY PILLO Masters NP, OFFICE VISIT Michelle rosario [facility] 6 11:38:22 Examinat ion for suspecte d mental disorder Completed 201108/23/2013 RECORDED 10/31/19 12 2:41PM BY NICKY WOODS ON/ADDEN DUM Michelle Degutis null [facility] 6 11:38:22 Pre-surg girish evaluati on Completed 201208/23/2013 IMPRESSI ON: PT IS MEDICALL Y ABLE TO UNDERGO SURGERY, NO ACTIVE ISSUES, IS ABLE TO LAY FLAT AND STILL, EKG NL AND WILL GET LABS; RECORDED 01/28/20 13 1:17PM BY ALEXANDRE AGUILAR MA, NICKY ON/ADDEN DUM Michelle Degutis abraham [facility] 6 11:38:22 Tachycar wesley 8070652 Completed 201108/23/2013 RECORDED 10/31/19 12 2:42PM BY NICKY WOODS ON/ADDEN DUM Michelle Degutis null [facility] 6 11:38:22 Retentio n of urine 929805867 Completed 201208/23/2013 RECORDED 04/30/19 13 2:37PM BY TEA HANDY MA, ANNOTATI ON/ADDEN DUM Michelle Degutis abraham [facility] 6 11:38:22 Urinary tract infectio us disease 85528579 Active 2013 Becky rosario [facility] 7 17:01:20 Vaginiti s and vulvovag initis Completed 201108/23/2013 IMPRESSI ON: VAGINAL ITCHING AFTER COMPLETI NG ANTIBIOT ICS; RECORDED 10/31/19 12 2:42PM BY NICKY WOODS ON/ADDEN DUM Michelle Degutis abraham [facility] 6 11:38:22 Impacted cerumen 27509744 Completed 09/17/2016 Becky rosario [facility] 7 17:00:46 Hyponatr emia 95710250 Completed 09/04/2017 Dilshad Hall MD [address], [place], [address] 8 06:00:03 Anemia due to chronic blood loss 855221222 Completed 201109/15/2013 RECORDED 10/31/19 12 2:42PM BY NICKY WOODS ON/ADDEN DUM Michelle Degutis abraham [facility] 6 11:38:21 Tobacco user 961583018 Completed 201209/15/2013 RECORDED 01/28/20 13 1:17PM BY ALEXANDRE AGUILAR MA, ANNOTATI ON/ADDEN DUM Becky rosario [facility] 7 17:00:35 Chest pain 70318945 Completed 201109/15/2013 RECORDED 10/31/19 12 2:41PM BY NICKY WOODS ON/ADDEN DUM Michelle Degutis abraham [facility] 6 11:38:22 Screenin g for malignan t neoplasm of colon Completed 201209/15/2013 RECORDED 04/30/19 13 2:37PM BY TEA HANDY MA, ANNOTATI ON/ADDEN DUM Michelle Degutis abraham [facility] 6 11:38:22 Divertic ular disease of colon 628007621 Completed 201109/15/2013 STORY: PT WAS SEEN IN OUR OFFICE 11/30/09 FOR RECTAL BLEEDING AND WAS REFERRED TO GI FOR AN EVALUATI ON. THAT EVENING EVERY TIME THE PT ATE SOMETHIN G SHE WOULD BE GOING TO THE BATHROOM TO HAVE A BM THAT WAS FILLED WITH BLOOD. AFTER A FEW TIMES THE PT TOOK HERSELF TO [facility] TO BE EVALUATE D. THE ONLY SX THAT THE PT FELT WAS BLOATING AND CRAMPING EVERYTIM E SHE ATE. PT HAD TO UNDERGO A COLONOSC OPY WITCH SHOWED THAT THE PT HAD BLEEDING COMING FROM THE ASCENDIN G,DESCEN DING, AND TRANSVER SE COLON. PT WAS LATER TRANSFER RED TO [facility] TO BE WATCHED CLOSELY. PT WAS THEN PLACED ON A LIQUID DIET UNTIL THE TIME WHERE SHE COULD TOLERATE SOLID FOOD WITH OUT PASSING A BM THAT WAS BLOODY. MEDICATI ON HAS BEEN RECONSIL ED WITH THE PT AND SHE WILL F/U WITH MGD 12/21/09 .; RECORDED 10/31/19 12 2:41PM BY NICKY WOODS ON/ADDEN TORIE rosario [facility] 6 11:38:21 Hemorrha ge of colon 40838005 Completed 201109/15/2013 STORY: STABLE/ STILL ANEMIC; RECORDED 10/31/19 12 2:41PM BY NICKY WOODS ON/ADDEN TORIE rosario [facility] 6 11:38:22 Dysuria 81652985 Completed 201109/15/2013 IMPRESSI ON: 3+ LEUKOCYT ES ON UA TODAY, COMPLETE D BACTRIM 2 DAYS AGO, START CIPRO AND SEND CULTURE; RECORDED 10/31/19 12 2:41PM BY NICKY WOODS ON/ADDEN DUM Becky rosario [facility] 7 17:01:13 Influenz a vaccine needed 54510424122 06 Completed 201209/15/2013 RECORDED 04/30/19 13 2:37PM BY TEA HANDY MA, JERELATI ON/ADDEN DUM Michelle Ervin [facility], [facility] 6 11:38:22 Follow-u p encounte r Completed 201209/15/2013 RECORDED 04/30/19 13 2:37PM BY TEA HANDY MA, ANNOTATI ON/ADDEN DUM Michelle Aziza [facility], [facility] 6 11:38:22 Hypo-osm olality and or hyponatr emia 965576528 Completed 201109/15/2013 RECORDED 10/31/19 12 2:41PM BY NICKY WOODS ON/ADDEN DUM Michelle Aziza [facility], [facility] 6 11:38:21 Impacted cerumen 55351304 Completed 201209/15/2013 RECORDED 01/28/20 13 1:17PM BY ALEXANDRE AGUILAR MA, JERELATI ON/ADDEN DUM Becky Norton [facility], [facility] 7 17:00:46 Renewal of prescrip tion Completed 201209/15/2013 RECORDED 04/30/19 13 2:37PM BY TEA HANDY MA, JERELATI ON/ADDEN DUM Michelle Aziza [facility], [facility] 6 11:38:22 Active or passive immuniza tion Completed 200909/15/2013 RECORDED 03/01/19 10 9:56AM BY PILLO Masters NP, OFFICE VISIT Michelle Aziza [facility], [facility] 6 11:38:22 Examinat ion for suspecte d mental disorder Completed 201109/15/2013 RECORDED 10/31/19 12 2:41PM BY NICKY WOODS ON/ADDEN DUM Michelle Ervin [facility] 6 11:38:22 Pre-surg girish evaluati on Completed 201209/15/2013 IMPRESSI ON: PT IS MEDICALL Y ABLE TO UNDERGO SURGERY, NO ACTIVE ISSUES, IS ABLE TO LAY FLAT AND STILL, EKG NL AND WILL GET LABS; RECORDED 01/28/20 13 1:17PM BY ALEXANDRE AGUILAR MA, NICKY ON/ADDEN DUM Michelle Degutis null, [facility] 6 11:38:22 Tachycar wesley 0678761 Completed 201109/15/2013 RECORDED 10/31/19 12 2:42PM BY JEREL WOODSATI ON/ADDEN DUM Michelle Degutis null, [facility] 6 11:38:22 Retentio n of urine 661240424 Completed 201209/15/2013 RECORDED 04/30/19 13 2:37PM BY TEA HANDY MA, NICKY ON/ADDEN DUM Michelle Degutis null, [facility] 6 11:38:22 Vaginiti s and vulvovag initis Completed 201109/15/2013 IMPRESSI ON: VAGINAL ITCHING AFTER COMPLETI NG ANTIBIOT ICS; RECORDED 10/31/19 12 2:42PM BY NICKY WOODS ON/ADDEN DUM Michelle Degutis null, [facility] 6 11:38:22 Anemia due to chronic blood loss 685602243 Completed 201109/16/2013 RECORDED 10/31/19 12 2:42PM BY NICKY WOODS ON/ADDEN DUM Michelle Degutis null, [facility] 6 11:38:21 Tobacco user 750433061 Completed 201209/16/2013 RECORDED 01/28/20 13 1:17PM BY ALEXANDRE AGUILAR MA, NICKY ON/ADDEN DUM Becky Norton MA null, [facility] 7 17:00:35 Chest pain 87950231 Completed 201109/16/2013 RECORDED 10/31/19 12 2:41PM BY NICKY WOODS ON/ADDEN DUM Michelle Degutis null, [facility] 6 11:38:22 Screenin g for malignan t neoplasm of colon Completed 201209/16/2013 RECORDED 04/30/19 13 2:37PM BY TEA HANDY MA, ANNOTATI ON/ADDEN DUM Michelle rosario, [facility] 6 11:38:22 Divertic ular disease of colon 172353931 Completed 201109/16/2013 STORY: PT WAS SEEN IN OUR OFFICE 11/30/09 FOR RECTAL BLEEDING AND WAS REFERRED TO GI FOR AN EVALUATI ON. THAT EVENING EVERY TIME THE PT ATE SOMETHIN G SHE WOULD BE GOING TO THE BATHROOM TO HAVE A BM THAT WAS FILLED WITH BLOOD. AFTER A FEW TIMES THE PT TOOK HERSELF TO [facility] TO BE EVALUATE D. THE ONLY SX THAT THE PT FELT WAS BLOATING AND CRAMPING EVERYTIM E SHE ATE. PT HAD TO UNDERGO A COLONOSC OPY WITCH SHOWED THAT THE PT HAD BLEEDING COMING FROM THE ASCENDIN G,DESCEN DING, AND TRANSVER SE COLON. PT WAS LATER TRANSFER RED TO [facility] TO BE WATCHED CLOSELY. PT WAS THEN PLACED ON A LIQUID DIET UNTIL THE TIME WHERE SHE COULD TOLERATE SOLID FOOD WITH OUT PASSING A BM THAT WAS BLOODY. MEDICATI ON HAS BEEN RECONSIL ED WITH THE PT AND SHE WILL F/U WITH MGD 12/21/09 .; RECORDED 10/31/19 12 2:41PM BY NICKY WOODS ON/ADDEN DUM Michelle rosario [facility] 6 11:38:21 Hemorrha ge of colon 82409330 Completed 201109/16/2013 STORY: STABLE/ STILL ANEMIC; RECORDED 10/31/19 12 2:41PM BY NICKY WOODS ON/ADDEN TORIE rosario, [facility] 6 11:38:22 Dysuria 76438691 Completed 201109/16/2013 IMPRESSI ON: 3+ LEUKOCYT ES ON UA TODAY, COMPLETE D BACTRIM 2 DAYS AGO, START CIPRO AND SEND CULTURE; RECORDED 10/31/19 12 2:41PM BY NICKY WOODS ON/ADDEN DUM Becky Norton MA null, [facility] 7 17:01:13 Influenz a vaccine needed 27780025665 06 Completed 201209/16/2013 RECORDED 04/30/19 13 2:37PM BY TEA HANDY MA, JERELATI ON/ADDEN DUM Michelle Pacousha rosario, [facility] 6 11:38:22 Follow-u p encounte r Completed 201209/16/2013 RECORDED 04/30/19 13 2:37PM BY TEA HANDY MA, NICKY ON/ADDEN DUM Michelle Pacousha rosario, [facility] 6 11:38:22 Hypo-osm olality and or hyponatr emia 536209773 Completed 201109/16/2013 RECORDED 10/31/19 12 2:41PM BY NICKY WOODS ON/EN DUM Michelle rosario, [facility] 6 11:38:21 Impacted cerumen 20847623 Completed 201209/16/2013 RECORDED 01/28/20 13 1:17PM BY ALEXANDRE AGUILAR MA, NICKY ON/ADDEN TORIE rosario, [facility] 7 17:00:46 Renewal of prescrip tion Completed 201209/16/2013 RECORDED 04/30/19 13 2:37PM BY TEA HANDY MA, NICKY ON/ADDEN DUM Michelle Pacousha rosario, [facility] 6 11:38:22 Active or passive immuniza tion Completed 200909/16/2013 RECORDED 03/01/19 10 9:56AM BY PILLO Masters NP, OFFICE VISIT Michelle rosario, [facility] 6 11:38:22 Examinat ion for suspecte d mental disorder Completed 201109/16/2013 RECORDED 10/31/19 12 2:41PM BY NICKY WOODS ON/ADDEN TORIE Ervin null, [facility] 6 11:38:22 Pre-surg girish hartmanati on Completed 201209/16/2013 IMPRESSI ON: PT IS MEDICALL Y ABLE TO UNDERGO SURGERY, NO ACTIVE ISSUES, IS ABLE TO LAY FLAT AND STILL, EKG NL AND WILL GET LABS; RECORDED 01/28/20 13 1:17PM BY ALEXANDRE AGUILAR MA, ANNOTATI ON/[facility] Degutis null, [facility] 6 11:38:22 Tachycar wesley 8313394 Completed 201109/16/2013 RECORDED 10/31/19 12 2:42PM BY NICKY WOODS ON/[facility] Degutis null, [facility] 6 11:38:22 Retentio n of urine 371047543 Completed 201209/16/2013 RECORDED 04/30/19 13 2:37PM BY TEA HANDY MA, ANNOTATI ON/[facility] Degutis null [facility] 6 11:38:22 Vaginiti s and vulvovag initis Completed 201109/16/2013 IMPRESSI ON: VAGINAL ITCHING AFTER COMPLETI NG ANTIBIOT ICS; RECORDED 10/31/19 12 2:42PM BY NICKY WOODS ON/[facility] Degutis null [facility] 6 11:38:22 Dermatit is Completed 09/17/2016 Becky rosario [facility] 7 17:00:48 Dysuria 94885660 Completed 09/17/2016 Becky rosario [facility] 7 17:01:13 Insomnia 273036226 Active Michelle Antonioutedouard null [facility] 6 11:38:21 Advance directiv e discusse d with patient 140141202 Completed 09/17/2016 Becky rosario [facility] 7 17:01:07 Polyp of colon 32271168 Active Michelle Aziza abraham [facility] 6 11:38:21 Chronic low back pain 617213844 Active 2018 Rebeca rosario [facility] 9 14:22:51 Problem Notes None recorded. Procedures Surgical History Date Name Laterality Status Provider Name and Address Organization Details Recorded Time 01/21/20 19 Mini-Cog Test completed Leila Julien MA [facility] 01/20/2019 09:52:44 12/30/19 18 Most Recent Mammogram completed Leila Julien MA [facility] 01/20/2019 09:47:42 12/19/19 18 Mini-Cog Test completed Naheed Veliz [facility] 12/18/2017 13:13:25 12/02/19 17 Fall Risk Assessment completed Becky Norton MA [facility] 12/01/2016 13:22:35 12/02/19 17 Mini-Cog Test completed Becky Norton [facility] 12/01/2016 13:23:31 11/29/19 17 Mammogram both breasts completed Kimmy Yañez [facility] 12/09/2016 14:44:18 10/17/19 17 Date of Last Colonoscopy completed Paola Kendall [facility] 12/09/2016 16:54:35 10/17/19 17 Colonoscopy completed Becky Norton MA [facility] 10/24/2016 11:43:36 03/23/19 16 Fall Risk Assessment completed Becky Norton MA [facility] 03/23/2015 13:55:01 03/23/19 16 Mini-Cog Test completed Becky Norton [facility] 03/23/2015 14:02:26 03/23/19 16 Advanced Care Planning completed Becky Norton MA [facility] 03/23/2015 13:41:44 08/19/19 15 Date of Last Pap Smear completed Michelle Ervin [facility] 03/28/2015 11:40:33 02/23/19 11 Most Recent Bone Density completed Becky [facility] 03/23/2015 14:07:39 02/09/19 08 Appendectomy completed Tea Chuck [facility] 03/02/2014 10:46:37 Imaging Results Imaging Date Name Status LastModified by Organization Details LastModified Time 05/15/2017 electrocardiogram completed Infor mation not available 05/15/2017 12:36:53 06/14/2018 XR, sacrum + coccyx, 2 or more view active [facility] [address] [place], [address], 06/15/2018 15:07:23 06/14/2018 XR, lumbar spine active [facility] [address] [place], [address], 06/15/2018 15:07:23 Procedure Notes None recorded. Medical Equipment None Reported. Allergies Allergen ID Allergen Name Allergen Category Reaction Reaction Severity Criticality Documentation Date Start Date Code Code System Note Provider Name and Address Organization Details Recorded Time 2935 latex environme nt,medica tion rash Not available Not available 08/23/20132012 95029 91 RxNorm Becky Norton MA [facility] 7 17:00:18 Medications Name Sig [...] Updated DateTime 8 154.94 cm 31.4 kg/m2 59527.4 3 g 98.7 [degF] 96 % 96 % 89 /min 118 mm[Hg] 76 mm[Hg] Becky Norton [facility] 8 11:28:28 Date Recorded Body height Body mass index (BMI) Body weight Heart rate Oxygen saturation Oxygen saturation in Arterial blood by Pulse oximetry Body temperature Systolic blood pressure Diastolic blood pressure Provider Name and Address Organization Details Last Updated DateTime 8 154.94 cm 30.8 kg/m2 04362.5 6 g 94 /min 97 % 97 % 97.5 [degF] 136 mm[Hg] 74 mm[Hg] Jovan Medina [facility] 8 10:41:30 Date Recorded Body height Body mass index (BMI) Body weight Body temperature Heart rate Oxygen saturation Oxygen saturation in Arterial blood by Pulse oximetry Systolic blood pressure Diastolic blood pressure Provider Name and Address Organization Details Last Updated DateTime 8 154.94 cm 30.5 kg/m2 61526.4 7 g 97.2 [degF] 86 /min 96 % 96 % 123 mm[Hg] 72 mm[Hg] Naheed Veliz [facility] 8 12:57:56 Date Recorded Body height Body mass index (BMI) Body weight Heart rate Oxygen saturation Oxygen saturation in Arterial blood by Pulse oximetry Body temperature Systolic blood pressure Diastolic blood pressure Provider Name and Address Organization Details Last Updated DateTime 9 154.94 cm 30.2 kg/m2 00383.7 8 g 92 /min 96 % 96 % 98.4 [degF] 124 mm[Hg] 78 mm[Hg] Ruby Mackey [facility] 9 12:59:19 Date Recorded Body height Body mass index (BMI) Body weight Oxygen saturation Oxygen saturation in Arterial blood by Pulse oximetry Heart rate Body temperature Systolic blood pressure Diastolic blood pressure Provider Name and Address Organization Details Last Updated DateTime 9 154.94 cm 30.7 kg/m2 72844.0 6 g 96 % 96 % 81 /min 98.1 [degF] 119 mm[Hg] 67 mm[Hg] Leila Julien MA [facility] 9 09:56:35 Social History Question Answer Notes LastModified by Organizat ion Details LastModified Time Tobacco Smoking Status Former Smoker ELLIOTT Plascencia, [facility] 09/08/2013 11:26:06 Do You Have [...] E-cigarettes Or Vape? 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 Never Used Smokeless Tobacco [email or web address] Information not available 01/20/2019 How Much Tobacco Do You Smoke? 1 PPW [email or web address] Information not available 01/20/2019 General Stress Level Low Information not available 03/02/2014 Do You Use Sunscreen Routinely? Yes Information not available 03/23/2015 How Many Years Have You Smoked Tobacco? 15 Information not available 12/18/2017 Sex: Unknown Functional Status Question Answer Note LastModified by [employer] ion Details LastModified Time Are you able [...] conjugate PCV 13 5 completed Not Available [facility] 02/26/2019 02:21:36 Influenza, split virus, quadrivalent, PF 5 completed Becky Norton MA [facility] 03/23/2015 14:06:48 Influenza, high-dose, trivalent, PF 7 completed Not Available [facility] 02/26/2019 02:22:21 Novel [id number], all formulations 0 completed Not Available [facility] 08/23/2013 13:38:52 pneumococcal polysaccharide PPV23 0 completed Not Available [facility] 08/23/2013 13:38:52 Influenza, split virus, trivalent, preservative 0 completed Not Available [facility] 08/23/2013 13:38:52 Influenza, split virus, trivalent, preservative 1 completed Not Available [facility] 08/23/2013 13:38:52 Influenza, split virus, trivalent, preservative 2 completed Not Available [facility] 08/23/2013 13:38:52 Influenza, split virus, trivalent, preservative 3 completed Not Available [facility] 08/23/2013 13:38:52 Influenza, high-dose, trivalent, PF 8 completed Not Available [facility] 02/26/2019 02:22:14 Influenza, high-dose, trivalent, PF 9 completed Not Available [facility] 02/26/2019 02:22:09 Past Encounters Encounter ID Performer Location Encounter Start Date Encounter Closed Date Diagnosis/Indication Diagnosis SNOMED-CT Code Diagnosis ICD10 Code Diagnosis Note [id number] Tea Handy Main Office [address] [facility] [address] [place], [place] [address] 09/08/2013 11:14:56 09/08/2013 11:58:13 Essential hypertension 30339174 well controlled Asthma 609769779 followe d by pulm, well controlled on symbicort Anxiety state 570715592 Impacted cerumen 48270450 successful ly removed with ear lavage [id number] [employer] [facility] [address] [facility] [place] [address] 03/01/2009 00:00:00 [id number] auto[employer]Comm erce [address] [facility] [place] [address] 03/29/2009 00:00:00 [id number] auto[employer] erce [address] [facility] [place] [address] 09/10/2009 00:00:00 [id number] [employer] erce [address] [facility] [place] [address] 11/13/2009 00:00:00 [id number] auto[employer] erce [address] [facility] [place] [address] 11/30/2009 00:00:00 [id number] auto[employer]Comm erce [address] [facility] [place] [address] 12/21/2009 00:00:00 [id number] auto[employer] erce [address] [facility] [place] [address] 02/11/2010 00:00:00 [id number] auto[employer] erce [address] [facility] [place] [address] 05/17/2010 00:00:00 [id number] auto[employer]Comm erce [address] [facility] [place] [address] 08/23/2010 00:00:00 [id number] autoEComm erce [address] [facility] [place] [address] 09/04/2010 00:00:00 [id number] autoEComm erce [address] [facility] [place] [address] 11/29/2010 00:00:00 [id number] auto[employer]Comm erce [address] [facility] [place], [place] [address] 01/10/2011 00:00:00 [id number] auto[employer]Comm erce [address] [facility] [place] [address] 05/02/2011 00:00:00 [id number] auto[employer]Comm erce [address] [facility] [place] [address] 10/31/2011 00:00:00 [id number] auto[employer]Comm erce [address] [facility] [place] [address] 04/29/2012 00:00:00 [id number] autoEComm erce [address] [facility] [place] [address] 07/15/2012 00:00:00 [id number] autoEComm erce [address] [facility] [place] [address] 01/27/2013 00:00:00 [id number] [facility] Main Office [address] [address] [place] [address] 09/26/2013 13:41:44 09/26/2013 14:55:33 Dermatitis 204706953 candidal dermatitis [id number] [facility] Main Office [facility] [address] [place] [address] 03/02/2014 12:39:53 03/02/2014 13:42:38 Essential hypertension 48856085 Hyponatremia 11174711 pt to see Dr Pride regularly/ pt aware that she needs to stop using clorazepat e / see psych referral Anxiety state 261881941 Dysuria 50087508 101357 [facility]y [facility] [address] [address] [place] [address] 04/21/2014 14:46:19 04/21/2014 15:48:33 Essential hypertension 60361422 both meds helpful/ Diltiazem and lisinopril Gastroesop hageal reflux disease 577556682 pt on PPI Anxiety state 874073495 Asthma 042873650 [id number] Ricardo medellin Main Office [address] [address] [place] [address] 03/23/2015 13:27:48 03/23/2015 14:47:01 Adult health examination 283908138 Z00.00 At [facility] ed risk for falls 051136629 Z91.81 Advance di rective discussed with patient 258495206 Z71.89 pt will have her brother as health care proxy Essential hypertension 91895651 I10 both meds helpful/ Diltiazem and lisinopril Polyp of colon 65605220 K63.5 pt due for colonoscop y 2016 /tubular adenoma/We iss Asthma 644343386 J45.90 9 Anxiety state 384350744 F41.1 [id number] Ricardo medellin Main Office [address] [address] [place] [address] 10/05/2015 12:46:12 10/05/2015 13:40:50 Essential hypertension 39788634 I10 both meds helpful/ Diltiazem and lisinopril Asthma 994418706 J45.90 9 urged pt to get flu shot soon. Anxiety state 329112658 F41.1 [id number] Ricardo medellin Main Office [address] [address] [place] [address] 06/19/2016 12:55:50 06/19/2016 14:13:50 Fatigue 78725774 R53.83 Abnormal weight loss 267 654027 R63.4 Diarrhea 60438246 R19.7 Nausea 530810225 R11.0 d/w pt to elevate HOB/ cont PPI Impaired f asting glycemia 788153158 R73.01 [id number] Ricardo medellin Main Office [address] [address] [place] [address] 10/23/2016 14:30:06 10/23/2016 15:27:24 [id number] Ricardo medellin Main Office [address] [address] [place] [address] 10/31/2016 13:21:48 10/31/2016 14:41:18 Lumbosacral radiculitis 26816307 M54.17 Influenza vaccine needed 2570104088 106 Z23 [id number] Ricardo Carversusana medellin Main Office [address] [address] [place] [address] 12/01/2016 13:04:53 12/01/2016 14:09:38 Adult health examination 473110667 Z00.00 Essential hypertension 00239126 I10 both meds helpful/ Diltiazem and lisinopril Anxiety state 063535614 F41.1 [id number] Ricardo Carversusana medellin Main Office [address] [address] [place] [address] 05/15/2017 11:16:16 05/15/2017 12:12:51 Anxiety state 690875076 F41.1 Essential hypertension 46766960 I10 both meds helpful/ Diltiazem and lisinopril Incomplete emptying of urinary bladder 252162414 R39.14 [id number] Maryanne fernandes Main Office [address] [address] [place] [address] 11/13/2017 10:36:20 11/13/2017 11:18:17 Anxiety state 951656264 F41.1 has been on med for 20+ years, she is taking 3.75mg daily, will try to cut the dose in half if possible. f/u in 1 month for wellness visit. Influenza vaccine needed 8910124328 106 Z23 Gastroesop hageal reflux disease 191070558 K21.9 Essential hypertension 95366556 I10 well controlled , continue meds as directed. [id number] Ramon Callahan MD Main Office [address] [address] [place] [address] 12/18/2017 12:40:39 12/18/2017 13:46:58 Adult health examination 523797895 Z00.00 [facility], she will call CLIENT SERVICE CONSULTANT for appt Varicella vaccination 68 570708 Z23 Asthma 600086135 J45.90 9 Essential hypertension 27174875 I10 well controlled , continue meds as directed. Family his tory of Hypercholesterolemia 390408479 Z83.49 Anxiety state 661346956 F41.1 has been on med for 20+ years, she is taking 3.75mg daily, will try to cut the dose in half if possible. f/u in 1 month for wellness visit. [id number] Denis Marcos [facility] Main Office [address] [facility] [address] [place] [address] 06/11/2018 12:42:51 06/11/2018 13:40:40 Low back pain 604000390 M54.5 Patient with chronic low back pain, in PT, seeing chiropract or, but wondering if she should be seeing someone else. Will check XR and refer back to [facility], she has seen them for this in the past. continue sx treatment, ibuprofen as needed. Cramp in lower limb 4499 81668 R25.2 Essential hypertension 49945232 I10 well controlled , continue meds as directed. Fatigue 06177740 R53.83 [id number] Denis Marcos [facility] Main Office [address] [facility] [address] [place] [address] 01/20/2019 09:41:15 01/20/2019 10:33:29 Adult health examination 801625002 Z00.00 hm UTD, she has mammo scheduled, needs to call CLIENT SERVICE CONSULTANT. Influenza vaccine needed 4274955520 106 Z23 Impaired f asting glycemia 792861660 R73.01 in June, sugar 125 and she believes she was fasting Hyperlipidemia 38452165 E78.5 Health Concerns Section Related Observation LastModified by Organization Detai ls LastModified Time None Recorded Concern Status LastModified by Organization Details LastModified Time None Recorded Advance Directives Directive Y: Payers Encounter Date Sequence Insurance Name Policy Number Policy Menendez Covered Member ID Menendez Member ID Guarantor Name 05/15/2017 2 [place] [id number] Noris E Oparowski [id number] Noris E Ameya 05/15/2017 1 [place] [employer] Noris E Oparowski [id number] Noris E Isidroki 11/13/2017 2 [place] [id number] Noris E Oparowski [id number] Noris E Ameya 11/13/2017 1 [place] Noris E Oparowski [id number] 06 [id number] Noris E Oparowski 12/18/2017 2 [place] [id number] Noris E Oparowski [id number] Noris E Oparowski 12/18/2017 1 [place] Noris E Oparowski [id number] 06 [id number] Noris E Oparowski 06/11/2018 [address] [facility] [id number] Noris E Oparowski [id number] Noris E Oparowski 06/11/2018 1 [place] Noris E Oparowski [id number] Noris E Oparowski 01/20/2019 [address] [facility] [id number] Noris E Oparowski [id number] Noris E Oparowski 01/20/2019 1 [place] [employer] Noris E Oparowski [id number] 06 [id number] Noris E Oparowski Notes Date Note Type Note Provider Name and Address Organization Details Recorded Time 05/15/2017 text/html Anxiety/Depressi onRepo rted bypatient.Quality:incr eased anxiety; pt reports that sthe plans to return to her pschologist Dr Valdes this year Severity:able to maintain relationships Associated Symptoms:no significant weight gain; mood good; pt has snf hx of benzo use , > 20 [...] fever;incomplete emptying of bladder Ricardo D'Anthony null, [facility] 05/15/2017 12:16:47 11/13/2017 text/html Anxiety/Depressi onRepo rted bypatient.Quality:incr eased anxiety; stress, car trouble Severity:able to maintain relationships Context:major life stressors;family problems Associated Symptoms:no significant weight gain;high irritability;hostility ;anxiety;hypersensitiv ity;anxiety with muscle tension; 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 DR saw Dr. Miller at [facility]. Was discharged in 2017 due to improvement with PT. 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 Since the fall her back pain is worse. NICOLÁS Fay [address] [address], [place], [address], [facility] 06/11/2018 13:40:34 01/20/2019 text/html Medicare Annual Wellness [...] states she found a new PCP in [place] but cannot be seen until May. Denis Marcos [facility] [address] [address], [place], [address], [facility] 01/20/2019 10:57:40 OBGyn Episode No OBEpisode recorded.
== END 2024-05-10 11:16 | disposition home or self-care (01) ==
LOC: HO.HPS 10:39
PROVIDERS: PCP Family Medicine; Visit Provider Hospitalist
DX: J44.9 Chronic obstructive pulmonary disease, unspecified (principal); J41.0 Simple chronic bronchitis; I26.94 Multiple subsegmental thrombotic pulmonary emboli without acute cor pulmonale
CPT/HCPCS: 99214

== ENCOUNTER → 2024-05-10 10:38 | Outpatient (BNVA) | payer MEDICARE, MEDICAID, SELFPAY | PROVIDERS: PCP Family Medicine; Visit Provider Hospitalist | DX: J44.9 Chronic obstructive pulmonary disease, unspecified (principal); I26.94 Multiple subsegmental thrombotic pulmonary emboli without acute cor pulmonale; J41.0 Simple chronic bronchitis | CPT/HCPCS: 99212 ==

== ENCOUNTER 2024-05-17 11:16 | Outpatient (AMB) | payer MEDICARE, MEDICAID, SELFPAY ==
--- NOTE | 2024-05-17 11:31 | A.OFFPC_ITS ---
Vital Signs 05/17/24 11:38 Height 5 ft 1 in Weight 157 lb 8 oz BMI 29.8 BP 90/50 L Blood Pressure Location Lt brachial Position Sitting Respiration 12 Pulse 94 Pulse Source Pulse Oximeter Temp 97.2 F Temp Source Oral Pulse Oximetry (%) 96 Oxygen Delivery Method Room Air Intake Visit Reasons: F/U HTN & Chronic Conditions Intake Note: scheduled for HTN and chronic conditions follow-up w/PCP Tool Dispatcher Required: No Allergies Seasonal Allergies Allergy (Mild, Verified 05/17/24 11:34) runny nose latex Allergy (Verified 05/17/24 11:34) rash Medication List - Last Reconciled 05/17/24 by Ric Flor MD albuterol sulfate 90 mcg/actuation 2 puffs inhalation Q8H PRN cetirizine (Zyrtec) 10 mg PO DAILY PRN cholecalciferol (vitamin D3) 50 mcg PO DAILY citalopram 20 mg PO DAILY 90 days clonazepam 0.5 mg PO BID PRN diltiazem HCl CD 120 mg PO DAILY 90 days fluticasone propionate 50 mcg/actuation (Flonase Allergy Relief) 1 spray intranasal Q12H 30 days gabapentin 300 mg PO BID losartan 25 mg PO DAILY mometasone-formoterol 200-5 mcg/actuation (Dulera) 2 puffs inhalation Q12H 30 days omeprazole 20 mg PO DAILY tamsulosin 0.4 mg PO BEDTIME 90 days warfarin 2 mg See Protocol PO DAILY 30 days Tobacco use date assessed: 09/24/23 Dental Screening Dental Screen Date: 07/16/23 HPI F/U HTN & Chronic Conditions HPI Details 83 y/o female presents to f/u HTN, chron ic conditions. Blood pressure today 90/50, 94p. She is on losartan 25mg daily. 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 They had done a biopsy - infection of nose and had recommended changing from doxycycline to cephalexin. She notes she has surgery scheduled on the . HPI Comments History of Present Illness Details Documentation assistance for Ric Flor MD, was provided by Rodriguez Simmons, Gypsum Roofer on 05/17/2024 at 12:00 PM EST. I, Dr. Flor, have read, observed, and verified documentation. [facility] Medical History Swelling of both lower extremities Pulmonary emboli (~01/2022) Skin cancer History of COVID-19 Essential hypertension Chronic allergic rhinitis Hyponatremia Asthma-COPD overlap syndrome Surgical History History of esophagogastroduodenoscopy (EGD) History of colonoscopy Family History Mother Breast cancer Father Prostate CA Stroke Social History Household Members: None Housing: House Housing Other:: mobile home- friend to be moving in Alcohol intake: current Alcohol intake frequency: 0-2 drinks per day (about 2 daily with ice ) Patient Tobacco Use Status: Former Tobacco user (20 years quit around age 51 ) Tobacco use type: Cigarette Cigarette Packs Per Day: 1.0 Years Smoked: 10 years e-Cigarette/Vaping Use: Never Used Second Hand Smoke Exposure: No service: No Current occupational status: retired 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 - she use to work in a [employer] - thinks her COPD r/t Current occupational exposures/hazards: No Cognitive needs: No Hearing needs: No Vision needs: No Questionnaire PHQ-9 Over the last 2 weeks, how often have you been bothered by any of the following problems? 1. Little interest or pleasure in doing things: not at all 2. Feeling down, depressed, or hopeless: not at all 3. Trouble falling or staying asleep, or sleeping too much: not at all 4. Feeling tired or having little energy: not at all 5. Poor appetite or overeating: several days 6. Feeling bad about yourself - or that you are a failure or have let yourself or your family down: not at all 7. Trouble concentrating on things, such as reading the newspaper or watching television: not at all 8. Moving or speaking so slowly that other people could have noticed. Or the opposite - being so fidgety or restless that you have been moving around a lot more than usual: not at all 9. Thoughts that you would be better off or of hurting yourself in some way: not at all Total score: 1 Depression Screening Interpretation: Negative Depression Screening Done: Yes 58342 - PHQ-9 Billing: Yes Source: Developed by Drs. Harsha Hood, Diana Mendoza, Kristopher Villa and colleagues, with an educational johnie from [employer]. Thrive Questionnaire Date Thrive assessed: 05/11/24 I am a: Patient What is your living situation today?: I have a steady place to live Within the past 12 months, did the food you bought not last and you didn't have the money to get more?: Sometimes True Within the past 12 months, did you worry whether your food would run out before you got money to buy more?: Sometimes True Do you have trouble paying for medicines?: No Do you have trouble getting transportation to medical appointments?: No Do you have trouble paying your heating and electricity bill?: No Do you have trouble taking care of your child, family member or friend?: No Do you have trouble with day-to-day activities such as bathing, preparing meals, shopping, managing finances, etc.?: No Are you currently unemployed and looking for a job?: No Are you interested in more education?: No Please select the resources that you would like help with: None Currently or been in a relationship where the following occur: No concerns reported THRIVE Score: 2 AUDIT C Alcohol Use Questionnaire (AUDIT-C) 1. How often do you have a drink containing alcohol?: 2-3 times a week 2. How many drinks containing alcohol do you have on a typical day when you are drinking?: 1 or 2 3. How often do you have six or more drinks on one occasion?: Never Total Score: 3 ROEL-7 AMB Questionnaire ROEL-7 Date ROEL - 7 assessed: 05/17/24 Feeling nervous, anxious, or on edge: 0 = Not at all Not being able to stop or control worryin = Several days Worrying too much about different things: 1 = Several days Trouble relaxin = Several days Being so restless that it is hard to sit still: 0 = Not at all Becoming easily annoyed or irritable: 1 = Several days Feeling afraid as if something awful might happen: 1 = Several days Total ROEL-7 score (0-4 normal; 5-9 mild; 10-14 moderate; 15-21 severe): 5 Source: Developed by Drs. Harsha Hood, Diana Mendoza, Kristopher Villa and colleagues, with an educational johnie from [employer]. ROEL-7 Assessment Billing ROEL-7 Assessment Tool: ROEL-7 Assessment 68138 Review of Systems Const Denies chills, Denies fatigue, Denies fever(s), Denies headache(s) and Denies weakness ENT Denies dizziness and Denies headache(s) Card Denies chest pain, Denies lightheadedness, Denies dyspnea and Denies other (Palpitations) Resp Denies cough, Denies dyspnea, Denies wheezing and Denies other ( shortness of breath) Musc Denies numbness and Denies tingling Neuro Denies dizziness, Denies headache(s), Denies numbness, Denies tingling, Denies paresthesias and Denies weakness Psych Denies anxiety and Denies depression Endo Denies fatigue Aller/Immun Denies wheezing Physical exam (Primary Care) Vital Signs: Last Vital Signs Temp 97.2 F 05/17/24 11:38 Pulse 94 05/17/24 11:38 Resp 12 05/17/24 11:38 BP 90/50 L 05/17/24 11:38 Pulse Ox 96 05/17/24 11:38 Oxygen Delivery Method Room Air 05/17/24 11:38 BMI result Body Mass Index 29.8 Tobacco/Smoking Status: Tobacco use Status Tobacco use date assessed 09/24/23 05/17/24 11:33 Patient Tobacco Use Status Former Tobacco user (20 05/17/24 11:33 years quit around age 51 ) Tobacco use type Cigarette 05/17/24 11:33 e-Cigarette/Vaping Use Never Used 05/17/24 11:33 PHQ-9: PHQ-9 Score PHQ-9: Total score 1 05/17/24 11:33 Depression Screening Interpretation: Negative Thrive Assessment: Date of Thrive Assessment Date Thrive assessed 05/11/24 05/17/24 11:33 Currently or been in a relationship where the following occur: No concerns reported Const General: no acute distress and well developed Nutritional Appearance: well nourished Orientation/consciousness: patient oriented x3 HENMT Head: Yes normocephalic and Yes atraumatic Eyes General: appearance normal, both eyes and all related structures Pupils: Equal, round and reactive pupils present EOM: EOMs intact bilaterally Resp Effort & Inspection: normal respiratory effort Auscultation: clear to auscultation bilaterally Cardio Rate: regular rate Rhythm: regular rhythm Heart sounds: S1 normal heart sound present, S2 normal heart sound present, no gallops, no murmurs and no rubs Neuro General: patient oriented x3 and gait normal Cranial nerves: Yes Equal, round and reactive pupils present Psych Affect: normal affect Coding Level of Care Code Est Pt Level 5 (44511) Diagnoses Essential hypertension I10 Skin cancer C44.90 Skin infection L08.9 Hyponatremia E87.1 Asthma-COPD overlap syndrome J44.9 Venous insufficiency I87.2 Additional Codes ROEL-7 Assessment Billing - ROEL-7 Assessment Tool: ROEL-7 Assessment 00530 ([id number]) PHQ-9 - 88533 - PHQ-9 Billing: Yes ([id number]) Assessment & Plan Assessment & Plan (1) Essential hypertension: Code(s): I10 - Essential (primary) hypertension Category: Medical Plan: Blood?pressure?is?a?little?too?low?today. She?has?hyponatremia?and?her?cap jewel plate assembler?recommended? limiting?water?to?1?L?per?day.??As?her?blood?pressures?are?likely?lower,?partly? due?to?this,?I?am?decreasing?losartan Continue?diltiazem?and?take?losartan?12.5?mg?daily (2) Skin cancer: Code(s): C44.90 - Unspecified malignant neoplasm of skin, unspecified Category: Medical Plan: Patient?has?upcoming?appointment?for?Mohs?surgery (3) Skin infection: Code(s): L08.9 - Local infection of the skin and subcutaneous tissue, unspecified Category: Medical Plan: Infection?on?nose?at?site?of?biopsy?for ?squamous?cell?cancer.??She?has?upcoming?appointment?for?low?surgery. However,?swab?for?culture?and?sensitivities?showed?that the?infection?was?resistant?to?doxycycline?according?to?the?text?message?s he?received.??Did?recommend?cephalexin. I?am?giving?her?a?script?for?cephalexin. Call?or?return?to?office?if?worsening?or?not?improving. (4) Hyponatremia: Code(s): E87.1 - Hypo-osmolality and hyponatremia Category: Medical Plan: Euvolemic?hyponatre valerie?and?Dr.?With?rare?recommended?water?restriction?of?1?L?per?day Advised?her?to?try?to spread?this?out?throughout?her?day (5) Asthma-COPD overlap syndrome: Code(s): J44.9 - Chronic obstructive pulmonary disease, unspecified Category: Medical Plan: Followed?by?pulmonary?medicine?at?[facility] Recently?had?Wixela?changed?to?Dulera?due?to intolerance?of?Wixela?powder Tolerating?Dulera Lungs?are?clear?today.??She?is?breathing?easily Continue?current?medications?and?follow- up?with?Pulmonary?Medicine?as?recommended (6) Venous insufficiency: Code(s): I87.2 - Venous insufficiency (chronic) (peripheral) Category: Medical Plan: Elevate?legs Compression?stockings Follow-up?with?vascular?as?recommended Medications: New cephalexin 500 mg PO Q12H 10 days 20 caps 0RF Changed From losartan 25 mg PO DAILY 90 tabs 1RF To losartan 12.5 mg (1/2 x 25 mg) PO DAILY 90 days 45 tabs 1RF
[2024-05-17 11:38] VITALS: BP 90/50; PULSE 94; RESP 12; TEMP 36.2; O2SAT 96; BMI 29.8
--- OUTSIDE RECORDS SUMMARY | 2024-05-17 13:46 | XMS_ITS | Encounter Summary ---
Author Organization [facility] Address [address] [place] [address] Care Team Providers Care Shipping Clerk Crating Name Role Phone Gennaro Guillaume MD Primary Care Provider Yadira [facility], Pcp Primary Care Provider Unavaildannie e Reason for Visit * Reason Onset Date Comments medication problems 07/01/2019 Encounter Details Date Type Department Care Team Description 07/01/2019 Telephone Medicine/Pediatrics - [address] [phone] Gennaro Guillaume MD medication problems Social History [...] Script sent * Telephone Encounter - Cassie Denton - 07/01/2019 9:59 AM EDT Who is calling? A pharmacist: Pharmacy: [facility] - Pharmacist Name: FAX - [...] unspecified documented in this encounter Care Teams Shipping Clerk Crating Relationship Specialty Start Date End Date Gennaro Guillaume MD PCP - General Internal Medicine 12/16/18 09/22/19 [facility] PCP - General Internal Medicine 09/23/19 documented as of this encounter
--- OUTSIDE RECORDS SUMMARY | 2024-05-17 13:46 | XMS_ITS | Data Portability ---
Author Organization [facility], Main Office Address [address] [place] [address] Care Team Providers Care Supplier Specialist Name Role Phone ABDIEL ORTEGA Barrer And Tacker GRACIELA MILLER Urologist ABDIEL LOZANO Assistant Womens Volleyball Coach [phone] URBAN PRIDE [employer]otive Tire Tester HUMBERTO SINGH Bushler RICARDO HUGHES Chiropractor [facility] Physical Therapist DENIS MARCOS Primary Care Provider Assessment No assessment recorded. Plan of Treatment Reminders Order Date Submit Date Provider Last Modified By Organization Details Last Modified Time Details Appointments None recorded. Lab HbA1c (hemoglob in A1c), blood 2018 019 [facility] (Centralized Electronic Ordering - All Locations), Patient Can Go To The Location Of Their Choice, [address] 0 09:38:13 BMP, serum or plasma 2018 019 [place] [facility] (Centralized Electronic Ordering - All Locations), Patient Can Go To The Location Of Their Choice, [address] 0 09:38:13 lipid panel, serum 2018 019 [place] [facility] (Centralized Electronic Ordering - All Locations), Patient Can Go To The Location Of Their Choice, [address] 0 09:38:13 magnesium , serum or plasma [...] 15:24:52 CMP, serum or plasma 2017 018 [facility] (Centralized Electronic Ordering - All Locations), Patient Can Go To The Location Of Their Choice, 11:56:02 Referral spine center referral - patient in 2017, MRI showed crowding L2 nerve root on the left, having worsenign sx of sciatic pain, low back pain, leg pains bilateral ly. 2018 isaías [facility], [address] [place] [address], [place], [address], 17:23:40 physical therapist referral - At risk for falling 2017 [facility], [address] [place], [address], 8 16:26:43 urologist referral - pt has not seen urology in 2 years or more and wants to have consultat ion w/ urologist rather than SHIPPING SPECIALIST 2017 018 scott Crane MD, [address], [address], [place], [address], 8 13:35:13 Procedures None recorded. Surgeries None recorded. Imaging XR, lumbar spine - chronic low back pain, worsening s/p fall in february [id number] 019 [facility], [address] [place] [address], [address], 9 10:29:46 XR, sacrum + coccyx - s/p fall in february, hx low back arthritis . pain worsening [address] [facility], [address] [place] [address], [address], 9 10:29:44 Medication Orders clorazepa te dipotassi um 3.75 mg tablet 2017 018 [facility]FACE [id number], [address] [place], [address], 8 11:18:58 tamsulosi n 0.4 mg capsule 2017 018 [id number], [address] [place], [address], 8 13:01:14 clorazepa te dipotassi um 3.75 mg tablet 2017 018 [facility]FACE [id number], [address] [place], [address], 8 12:05:21 Patient TargetsNo targets recorded. Patient Instructions Encounter Date Encounter Id Patient Instructions Last Modified By Organization Details Last Modified Time 11/13/2017 [id number] anxiety disorder: care instructions [email or web address] Not available 11/13/2017 11:18:44 call or return for worsening or concerns. [email or web address] Not available 11/13/2017 11:13:19 I have reviewed the note and agree with the assessment and plan of care. dolores Not available 11/13/2017 12:41:01 12/18/2017 [id number] preventing falls: care instructions [email or web address] Not available [...] medication. jthabet Not available 12/18/2017 13:20:44 06/11/2018 [id number] low back pain: exercises jthabet Not available 06/11/2018 13:24:20 call or return for worsening or concerns. [email or web address] Not available 06/11/2018 13:22:08 01/20/2019 [id number] preventing falls: care instructions [email or web address] Not available 01/20/2019 10:20:59 call or return for woraening or concerns. [email or web address] Not available 01/20/2019 10:20:56 Reviewed the risks and benefits of extermination inspector opiate use, OUD discussed with the patient. Reviewed the risks and benefits of other non-opioid pain therapies. Reviewed caution with driving, fall risk, treatment for constipation. Patient verbalizes understanding of risk and benefits, and of OUD. [email or web address] Not available 01/20/2019 09:46:37 Reason for Referral Urologist Referral for Incom plete emptying of urinary bladder pt has not seen urology in 2 years or more and wants to have consultation w/ urologist rather than SHIPPING SPECIALIST Referring Physician: Ricardo Dhillon, Internal Medicine, [...] ce of an acute proces s. WSN: [id number] Dictat ed By: Delonte Barrios MD Dictat ed Date/T erlinda: 10:26 a Review ed By: Delonte Barrios MD Signed By: Delonte Barrios MD Signed Date/T erlinda: 10:26 am Transc ribed By: PASTORA Transc ribed Date/T erlinda: 10:24 am Patien t Class: Outpat ient [facility] (Outpt Imaging) [address] [place], [address], 06/15/2018 15:07:23 06/15/19 19 06/14/2018 XR, lumba [...] ce of an acute proces s. WSN: [id number] Dictat ed By: Delonte Barrios MD Dictat ed Date/T erlinda: 10:26 a Review ed By: Delonte Barrios MD Signed By: Delonte aBrrios MD Signed Date/T erlinda: 10:26 am Transc ribed By: PASTORA Transc ribed Date/T erlinda: 10:24 am Patien t Class: Outpat ient [facility] ([facility]) [address] [place], [address], 06/15/2018 15:07:23 Result Notes None recorded. Problems Name Problem SNOMED Code Status Onset Date Resolution Date Notes Provider Name and Address Organization Details Recorded Time Anemia due to chronic blood loss 969548494 Completed 201108/23/2013 RECORDED 10/31/19 12 2:42PM BY NICKY WOODS ON/ADDEN DUM Michelle Ervin abraham [facility] 6 11:38:21 Anxiety state 183987166 Active 2012 Becky rosario [facility] 7 17:00:55 Tobacco user [id number] Completed 201208/23/2013 RECORDED 01/28/20 13 1:17PM BY ALEXANDRE AGUILAR MA, ANNOTATI ON/ADDEN DUM Becky rosario [facility] 7 17:00:35 History of clinical finding in subject [id number] Completed 201209/17/2016 RECORDED 01/28/20 13 1:17PM BY ALEXANDRE AGUILAR MA, ANNOTATI ON/ADDEN DUM Becky rosario [facility] 7 17:01:11 Asthma [id number] Active 2012 Becky rosario [facility] 7 17:00:52 Screenin g for malignan t neoplasm of breast Completed 201410/31/2016 Dr. Susy Ortega, negative Becky rosario [facility] 7 13:35:13 Screenin g for malignan t neoplasm of breast Completed 201108/23/2013 RECORDED 10/31/19 12 2:41PM BY JEREL WOODSATI ON/ADDEN DUM Becky rosario, [facility] 7 13:35:13 Chest pain 77524365 Completed 201108/23/2013 RECORDED 10/31/19 12 2:41PM BY JEREL WOODSATI ON/ADDEN DUM Michelle Degutedouard null, [facility] 6 11:38:22 Screenin g for malignan t neoplasm of colon Completed 201208/23/2013 RECORDED 04/30/19 13 2:37PM BY TEA HANDY MA, ANNOTATI ON/ADDEN DUM Michelle Degutedouard null, [facility] 6 11:38:22 Divertic ular disease of colon 341650075 Completed 201108/23/2013 STORY: PT WAS SEEN IN OUR OFFICE 11/30/09 FOR RECTAL BLEEDING AND WAS REFERRED TO GI FOR AN EVALUATI ON. THAT EVENING EVERY TIME THE PT ATE SOMETHIN G SHE WOULD BE GOING TO THE BATHROOM TO HAVE A BM THAT WAS FILLED WITH BLOOD. AFTER A FEW TIMES THE PT TOOK HERSELF TO [facility] TO BE EVALUATE D. THE ONLY SX THAT THE PT FELT WAS BLOATING AND CRAMPING EVERYTIM E SHE ATE. PT HAD TO UNDERGO A COLONOSC OPY WITCH SHOWED THAT THE PT HAD BLEEDING COMING FROM THE [place]END[place],DESCEN DING, AND TRANSVER SE COLON. PT WAS LATER TRANSFER RED TO [facility] TO BE WATCHED CLOSELY. PT WAS THEN PLACED ON A LIQUID DIET UNTIL THE TIME WHERE SHE COULD TOLERATE SOLID FOOD WITH OUT PASSING A BM THAT WAS BLOODY. MEDICATI ON HAS BEEN RECONSIL ED WITH THE PT AND SHE WILL F/U WITH MGD 12/21/09 .; RECORDED 10/31/19 12 2:41PM BY JEREL WOODSATI ON/ADDEN DUM Michelle Antoniousha null, [facility] 6 11:38:21 Hemorrha ge of colon 41416707 Completed 201108/23/2013 STORY: STABLE/ STILL ANEMIC; RECORDED 10/31/19 12 2:41PM BY NICKY WOODS ON/ADDEN DUM Michelle rosario [facility] 6 11:38:22 Divertic ulitis of colon 829513658 Active 2011 Becky rosario [facility] 7 17:00:37 Dysuria 99260676 Completed 201108/23/2013 IMPRESSI ON: 3+ LEUKOCYT ES ON UA TODAY, COMPLETE D BACTRIM 2 DAYS AGO, START CIPRO AND SEND CULTURE; RECORDED 10/31/19 12 2:41PM BY NICKY WOODS ON/ADDEN DUM Becky rosario [facility] 7 17:01:13 Gastroes ophageal reflux disease 844728216 Active 2012 Becky rosario [facility] 7 17:00:59 [facility] julisa 54252088 Active 2012 Becky rosario [facility] 7 17:01:17 Essentia l hyperten julisa 83515515 Completed 201108/23/2013 RECORDED 10/31/19 12 2:41PM BY NICKY WOODS ON/ADDEN DUM Becky rosario [facility] 7 17:01:17 External hemorrho ids 72862350 Active 2012 Becky rosario [facility] 7 17:01:03 Influenz a vaccine needed [id number] 06 Completed 201208/23/2013 RECORDED 04/30/19 13 2:37PM BY TEA HANDY MA, ANNOTATI ON/ADDEN DUM Michelle rosario [facility] 6 11:38:22 Follow-u p encounte r Completed 201208/23/2013 RECORDED 04/30/19 13 2:37PM BY TEA HANDY MA, ANNOTATI ON/ADDEN DUM Michelle Degutis null, [facility] 6 11:38:22 Tobacco user 427927748 Active 2012 Becky rosario, [facility] 7 17:00:35 Adult health examinat ion Completed 201209/17/2016 STORY: COLONOSC OPY DUE SS/TUBUL AR ADENOMA; RECORDED 01/28/20 13 1:58PM BY RICARDO COLE MD, OFFICE VISIT Becky rosario, [facility] 7 17:01:05 Adult health examinat ion Completed 201208/23/2013 RECORDED 04/30/19 13 2:37PM BY TEA HANDY MA, ANNOTATI ON/ADDEN DUM Becky rosario, [facility] 7 17:01:05 Hearing loss 27377750 Active 2012 Becky rosario, [facility] 7 17:00:40 History of Malignan t melanoma 243321512 Active 2013 Becky rosario, [facility] 7 17:00:45 Hypo-osm olality and or hyponatr emia 719750234 Completed 201108/23/2013 RECORDED 10/31/19 12 2:41PM BY NICKY WOODS ON/ADDEN DUM Michelle Degutedouard null, [facility] 6 11:38:21 Impacted cerumen 32438640 Completed 201208/23/2013 RECORDED 01/28/20 13 1:17PM BY ALEXANDRE AGUILAR MA, ANNOTATI ON/ADDEN DUM Becky rosario, [facility] 7 17:00:46 Irritabl e bowel syndrome 25656542 Active 2012 Becky rosario [facility] 7 17:00:31 Renewal of prescrip tion Completed 201208/23/2013 RECORDED 04/30/19 13 2:37PM BY TEA HANDY MA, ANNOTATI ON/ADDEN DUM Michelle Degutis null, [facility] 6 11:38:22 Malignan t melanoma of skin 58626751 Active 2013 Becky rosario, [facility] 7 17:01:28 Active or passive immuniza tion Completed 200908/23/2013 RECORDED 03/01/19 10 9:56AM BY PILLO Masters NP, OFFICE VISIT Michelle rosario [facility] 6 11:38:22 Examinat ion for suspecte d mental disorder Completed 201108/23/2013 RECORDED 10/31/19 12 2:41PM BY NICKY WOODS ON/ADDEN DUM Michelle Degutis null [facility] 6 11:38:22 Pre-surg girish evaluati on Completed 201208/23/2013 IMPRESSI ON: PT IS MEDICALL Y ABLE TO UNDERGO SURGERY, NO ACTIVE ISSUES, IS ABLE TO LAY FLAT AND STILL, EKG NL AND WILL GET LABS; RECORDED 01/28/20 13 1:17PM BY ALEXANDRE AGUILAR MA, NICKY ON/ADDEN DUM Michelle Degutis abraham [facility] 6 11:38:22 Tachycar wesley [id number] Completed 201108/23/2013 RECORDED 10/31/19 12 2:42PM BY NICKY WOODS ON/ADDEN DUM Michelle Degutis null [facility] 6 11:38:22 Retentio n of urine 978584488 Completed 201208/23/2013 RECORDED 04/30/19 13 2:37PM BY TEA HANDY MA, ANNOTATI ON/ADDEN DUM Michelle Degutis abraham [facility] 6 11:38:22 Urinary tract infectio us disease 10446529 Active 2013 Becky rosario [facility] 7 17:01:20 Vaginiti s and vulvovag initis Completed 201108/23/2013 IMPRESSI ON: VAGINAL ITCHING AFTER COMPLETI NG ANTIBIOT ICS; RECORDED 10/31/19 12 2:42PM BY NICKY WOODS ON/ADDEN DUM Michelle Degutis abraham [facility] 6 11:38:22 Impacted cerumen 92885220 Completed 09/17/2016 Becky rosario [facility] 7 17:00:46 Hyponatr emia 16237174 Completed 09/04/2017 Dilshad Hall MD [address], [place], [address] [address] 8 06:00:03 Anemia due to chronic blood loss 907084618 Completed 201109/15/2013 RECORDED 10/31/19 12 2:42PM BY NICKY WOODS ON/ADDEN DUM Michelle Degutis abraham [facility] 6 11:38:21 Tobacco user [id number] Completed 201209/15/2013 RECORDED 01/28/20 13 1:17PM BY ALEXANDRE AGUILAR MA, ANNOTATI ON/ADDEN DUM Becky rosario [facility] 7 17:00:35 Chest pain 14717797 Completed 201109/15/2013 RECORDED 10/31/19 12 2:41PM BY NICKY WOODS ON/ADDEN DUM Michelle Degutis abraham [facility] 6 11:38:22 Screenin g for malignan t neoplasm of colon Completed 201209/15/2013 RECORDED 04/30/19 13 2:37PM BY TEA HANDY MA, ANNOTATI ON/ADDEN DUM Michelle Degutis abraham [facility] 6 11:38:22 Divertic ular disease of colon 434515094 Completed 201109/15/2013 STORY: PT WAS SEEN IN OUR OFFICE 11/30/09 FOR RECTAL BLEEDING AND WAS REFERRED TO GI FOR AN EVALUATI ON. THAT EVENING EVERY TIME THE PT ATE SOMETHIN G SHE WOULD BE GOING TO THE BATHROOM TO HAVE A BM THAT WAS FILLED WITH BLOOD. AFTER A FEW TIMES THE PT TOOK HERSELF TO [facility] TO BE EVALUATE D. THE ONLY SX THAT THE PT FELT WAS BLOATING AND CRAMPING EVERYTIM E SHE ATE. PT HAD TO UNDERGO A COLONOSC OPY WITCH SHOWED THAT THE PT HAD BLEEDING COMING FROM THE [place],DESCEN DING, AND TRANSVER SE COLON. PT WAS LATER TRANSFER RED TO [facility] TO BE WATCHED CLOSELY. PT WAS THEN PLACED ON A LIQUID DIET UNTIL THE TIME WHERE SHE COULD TOLERATE SOLID FOOD WITH OUT PASSING A BM THAT WAS BLOODY. MEDICATI ON HAS BEEN RECONSIL ED WITH THE PT AND SHE WILL F/U WITH MGD 12/21/09 .; RECORDED 10/31/19 12 2:41PM BY NICKY WOODS ON/ADDEN TORIE rosario [facility] 6 11:38:21 Hemorrha ge of colon 64289598 Completed 201109/15/2013 STORY: STABLE/ STILL ANEMIC; RECORDED 10/31/19 12 2:41PM BY NICKY WOODS ON/ADDEN TORIE rosario [facility] 6 11:38:22 Dysuria 70506815 Completed 201109/15/2013 IMPRESSI ON: 3+ LEUKOCYT ES ON UA TODAY, COMPLETE D BACTRIM 2 DAYS AGO, START CIPRO AND SEND CULTURE; RECORDED 10/31/19 12 2:41PM BY NICKY WOODS ON/ADDEN DUM Becky rosario [facility] 7 17:01:13 Influenz a vaccine needed [id number] 06 Completed 201209/15/2013 RECORDED 04/30/19 13 2:37PM BY TEA HANDY MA, JERELATI ON/ADDEN DUM Michelle Ervin [facility], [facility] 6 11:38:22 Follow-u p encounte r Completed 201209/15/2013 RECORDED 04/30/19 13 2:37PM BY TEA HANDY MA, ANNOTATI ON/ADDEN DUM Michelle Aziza [facility], [facility] 6 11:38:22 Hypo-osm olality and or hyponatr emia 650876469 Completed 201109/15/2013 RECORDED 10/31/19 12 2:41PM BY NICKY WOODS ON/ADDEN DUM Michelle Aziza [facility], [facility] 6 11:38:21 Impacted cerumen 56701789 Completed 201209/15/2013 RECORDED 01/28/20 13 1:17PM BY ALEXANDRE AGUILAR MA, JERELATI ON/ADDEN DUM Becky Norton [facility], [facility] 7 17:00:46 Renewal of prescrip tion Completed 201209/15/2013 RECORDED 04/30/19 13 2:37PM BY TEA HANDY MA, JERELATI ON/ADDEN DUM Michelle Aziza [facility], [facility] 6 11:38:22 Active or passive immuniza tion Completed 200909/15/2013 RECORDED 03/01/19 10 9:56AM BY PILLO Masters NP, OFFICE VISIT Michelle Aziza [facility], [facility] 6 11:38:22 Examinat ion for suspecte d mental disorder Completed 201109/15/2013 RECORDED 10/31/19 12 2:41PM BY NICKY WOODS ON/ADDEN DUM Michelle Ervin [facility] 6 11:38:22 Pre-surg girish evaluati on Completed 201209/15/2013 IMPRESSI ON: PT IS MEDICALL Y ABLE TO UNDERGO SURGERY, NO ACTIVE ISSUES, IS ABLE TO LAY FLAT AND STILL, EKG NL AND WILL GET LABS; RECORDED 01/28/20 13 1:17PM BY ALEXANDRE AGUILAR MA, NICKY ON/ADDEN DUM Michelle Degutis null, [facility] 6 11:38:22 Tachycar wesley [id number] Completed 201109/15/2013 RECORDED 10/31/19 12 2:42PM BY JEREL WOODSATI ON/ADDEN DUM Michelle Degutis null, [facility] 6 11:38:22 Retentio n of urine 796791186 Completed 201209/15/2013 RECORDED 04/30/19 13 2:37PM BY TEA HANDY MA, NICKY ON/ADDEN DUM Michelle Degutis null, [facility] 6 11:38:22 Vaginiti s and vulvovag initis Completed 201109/15/2013 IMPRESSI ON: VAGINAL ITCHING AFTER COMPLETI NG ANTIBIOT ICS; RECORDED 10/31/19 12 2:42PM BY NICKY WOODS ON/ADDEN DUM Michelle Degutis null, [facility] 6 11:38:22 Anemia due to chronic blood loss 974881778 Completed 201109/16/2013 RECORDED 10/31/19 12 2:42PM BY NICKY WOODS ON/ADDEN DUM Michelle Degutis null, [facility] 6 11:38:21 Tobacco user [id number] Completed 201209/16/2013 RECORDED 01/28/20 13 1:17PM BY ALEXNADRE AGUILAR MA, NICKY ON/ADDEN DUM Becky Norton MA null, [facility] 7 17:00:35 Chest pain 70743693 Completed 201109/16/2013 RECORDED 10/31/19 12 2:41PM BY NICKY WOODS ON/ADDEN DUM Michelle Degutis null, [facility] 6 11:38:22 Screenin g for malignan t neoplasm of colon Completed 201209/16/2013 RECORDED 04/30/19 13 2:37PM BY TEA HANDY MA, ANNOTATI ON/ADDEN DUM Michelle rosario, [facility] 6 11:38:22 Divertic ular disease of colon 218562330 Completed 201109/16/2013 STORY: PT WAS SEEN IN OUR OFFICE 11/30/09 FOR RECTAL BLEEDING AND WAS REFERRED TO GI FOR AN EVALUATI ON. THAT EVENING EVERY TIME THE PT ATE SOMETHIN G SHE WOULD BE GOING TO THE BATHROOM TO HAVE A BM THAT WAS FILLED WITH BLOOD. AFTER A FEW TIMES THE PT TOOK HERSELF TO [facility] TO BE EVALUATE D. THE ONLY SX THAT THE PT FELT WAS BLOATING AND CRAMPING EVERYTIM E SHE ATE. PT HAD TO UNDERGO A COLONOSC OPY WITCH SHOWED THAT THE PT HAD BLEEDING COMING FROM THE [place],DESCEN DING, AND TRANSVER SE COLON. PT WAS LATER TRANSFER RED TO [facility] TO BE WATCHED CLOSELY. PT WAS THEN PLACED ON A LIQUID DIET UNTIL THE TIME WHERE SHE COULD TOLERATE SOLID FOOD WITH OUT PASSING A BM THAT WAS BLOODY. MEDICATI ON HAS BEEN RECONSIL ED WITH THE PT AND SHE WILL F/U WITH MGD 12/21/09 .; RECORDED 10/31/19 12 2:41PM BY NICKY WOODS ON/ADDEN DUM Michelle rosario [facility] 6 11:38:21 Hemorrha ge of colon 67264501 Completed 201109/16/2013 STORY: STABLE/ STILL ANEMIC; RECORDED 10/31/19 12 2:41PM BY NICKY WOODS ON/ADDEN TORIE rosario, [facility] 6 11:38:22 Dysuria 85530117 Completed 201109/16/2013 IMPRESSI ON: 3+ LEUKOCYT ES ON UA TODAY, COMPLETE D BACTRIM 2 DAYS AGO, START CIPRO AND SEND CULTURE; RECORDED 10/31/19 12 2:41PM BY NICKY WOODS ON/ADDEN DUM Becky Norton MA null, [facility] 7 17:01:13 Influenz a vaccine needed [id number] 06 Completed 201209/16/2013 RECORDED 04/30/19 13 2:37PM BY TEA HANDY MA, JERELATI ON/ADDEN DUM Michelle Pacousha rosario, [facility] 6 11:38:22 Follow-u p encounte r Completed 201209/16/2013 RECORDED 04/30/19 13 2:37PM BY TEA HANDY MA, NICKY ON/ADDEN DUM Michelle Pacousha rosario, [facility] 6 11:38:22 Hypo-osm olality and or hyponatr emia 310022780 Completed 201109/16/2013 RECORDED 10/31/19 12 2:41PM BY NICKY WOODS ON/EN DUM Michelle rosario, [facility] 6 11:38:21 Impacted cerumen 66044958 Completed 201209/16/2013 RECORDED 01/28/20 13 1:17PM BY ALEXANDRE AGUILAR MA, NICKY ON/ADDEN TORIE rosario, [facility] 7 17:00:46 Renewal of prescrip tion Completed 201209/16/2013 RECORDED 04/30/19 13 2:37PM BY TEA HANDY MA, NICKY ON/ADDEN DUM Michelle Pacousha rosario, [facility] 6 11:38:22 Active or passive immuniza tion Completed 200909/16/2013 RECORDED 03/01/19 10 9:56AM BY PILLO Masters NP, OFFICE VISIT Michelle rosario, [facility] 6 11:38:22 Examinat ion for suspecte d mental disorder Completed 201109/16/2013 RECORDED 10/31/19 12 2:41PM BY NICKY WOODS ON/ADDEN TORIE Ervin null, [facility] 6 11:38:22 Pre-surg girish hartmanati on Completed 201209/16/2013 IMPRESSI ON: PT IS MEDICALL Y ABLE TO UNDERGO SURGERY, NO ACTIVE ISSUES, IS ABLE TO LAY FLAT AND STILL, EKG NL AND WILL GET LABS; RECORDED 01/28/20 13 1:17PM BY ALEXANDRE AGUILAR MA, ANNOTATI ON/[facility] null, [facility] 6 11:38:22 Tachycar wesley [id number] Completed 201109/16/2013 RECORDED 10/31/19 12 2:42PM BY NICKY WOODS ON/[facility] Deg[facility] null, [facility] 6 11:38:22 Retentio n of urine 507315096 Completed 201209/16/2013 RECORDED 04/30/19 13 2:37PM BY TEA HANDY MA, ANNOTATI ON/[facility] Deg[facility] null [facility] 6 11:38:22 Vaginiti s and vulvovag initis Completed 201109/16/2013 IMPRESSI ON: VAGINAL ITCHING AFTER COMPLETI NG ANTIBIOT ICS; RECORDED 10/31/19 12 2:42PM BY NICKY WOODS ON/[facility] Deg[facility] null [facility] 6 11:38:22 Dermatit is Completed 09/17/2016 Becky rosario [facility] 7 17:00:48 Dysuria 37067099 Completed 09/17/2016 Becky rosario [facility] 7 17:01:13 Insomnia 569962775 Active Michelle Antonioutedouard null [facility] 6 11:38:21 Advance directiv e discusse d with patient [id number] Completed 09/17/2016 Becky rosario [facility] 7 17:01:07 Polyp of colon 99276578 Active Michelle Aziza abraham [facility] 6 11:38:21 Chronic low back pain 849613073 Active 2018 Rebeca rosario [facility] 9 14:22:51 Problem Notes None recorded. Procedures Surgical History Date Name Laterality Status Provider Name and Address Organization Details Recorded Time 01/21/20 19 Mini-Cog Test completed Leila Julien MA [facility] 01/20/2019 09:52:44 12/30/19 18 Most Recent Mammogram completed Leila Julien MA [facility] 01/20/2019 09:47:42 12/19/19 18 Mini-Cog Test completed Naheed Veliz [facility] 12/18/2017 13:13:25 12/02/19 17 Fall Risk Assessment completed Becky Norton MA [facility] 12/01/2016 13:22:35 12/02/19 17 Mini-Cog Test completed Becky Norton [facility] 12/01/2016 13:23:31 11/29/19 17 Mammogram both breasts completed Kimmy Yañez [facility] 12/09/2016 14:44:18 10/17/19 17 Date of Last Colonoscopy completed Paola Kendall [facility] 12/09/2016 16:54:35 10/17/19 17 Colonoscopy completed Becky Norton MA [facility] 10/24/2016 11:43:36 03/23/19 16 Fall Risk Assessment completed Becky Norton MA [facility] 03/23/2015 13:55:01 03/23/19 16 Mini-Cog Test completed Becky Norton [facility] 03/23/2015 14:02:26 03/23/19 16 Advanced Care Planning completed Becky Norton MA [facility] 03/23/2015 13:41:44 08/19/19 15 Date of Last Pap Smear completed Michelle Ervin [facility] 03/28/2015 11:40:33 02/23/19 11 Most Recent Bone Density completed Becky Norton [facility] 03/23/2015 14:07:39 02/09/19 08 Appendectomy completed Tea Chuck [facility] 03/02/2014 10:46:37 Imaging Results Imaging Date Name Status LastModified by Organization Details LastModified Time 05/15/2017 electrocardiogram completed Infor mation not available 05/15/2017 12:36:53 06/14/2018 XR, sacrum + coccyx, 2 or more view active [facility] [address] [place], [address], 06/15/2018 15:07:23 06/14/2018 XR, lumbar spine active [facility] ([facility] [address] [place], [address], 06/15/2018 15:07:23 Procedure Notes None recorded. Medical Equipment None Reported. Allergies Allergen ID Allergen Name Allergen Category Reaction Reaction Severity Criticality Documentation Date Start Date Code Code System Note Provider Name and Address Organization Details Recorded Time 2935 latex environme nt,medica tion rash Not available Not available 08/23/20132012 50751 91 RxNorm Becky Norton [place] [facility] 7 17:00:18 Medications Name Sig Start [...] Updated DateTime 8 154.94 cm 31.4 kg/m2 92825.4 3 g 98.7 [degF] 96 % 96 % 89 /min 118 mm[Hg] 76 mm[Hg] Becky Norton [facility] 8 11:28:28 Date Recorded Body height Body mass index (BMI) Body weight Heart rate Oxygen saturation Oxygen saturation in Arterial blood by Pulse oximetry Body temperature Systolic blood pressure Diastolic blood pressure Provider Name and Address Organization Details Last Updated DateTime 8 154.94 cm 30.8 kg/m2 12892.5 6 g 94 /min 97 % 97 % 97.5 [degF] 136 mm[Hg] 74 mm[Hg] Jovan Medina [facility] 8 10:41:30 Date Recorded Body height Body mass index (BMI) Body weight Body temperature Heart rate Oxygen saturation Oxygen saturation in Arterial blood by Pulse oximetry Systolic blood pressure Diastolic blood pressure Provider Name and Address Organization Details Last Updated DateTime 8 154.94 cm 30.5 kg/m2 89682.4 7 g 97.2 [degF] 86 /min 96 % 96 % 123 mm[Hg] 72 mm[Hg] Naheed Veliz [facility] 8 12:57:56 Date Recorded Body height Body mass index (BMI) Body weight Heart rate Oxygen saturation Oxygen saturation in Arterial blood by Pulse oximetry Body temperature Systolic blood pressure Diastolic blood pressure Provider Name and Address Organization Details Last Updated DateTime 9 154.94 cm 30.2 kg/m2 52528.7 8 g 92 /min 96 % 96 % 98.4 [degF] 124 mm[Hg] 78 mm[Hg] Ruby Mackey [facility] 9 12:59:19 Date Recorded Body height Body mass index (BMI) Body weight Oxygen saturation Oxygen saturation in Arterial blood by Pulse oximetry Heart rate Body temperature Systolic blood pressure Diastolic blood pressure Provider Name and Address Organization Details Last Updated DateTime 9 154.94 cm 30.7 kg/m2 02650.0 6 g 96 % 96 % 81 /min 98.1 [degF] 119 mm[Hg] 67 mm[Hg] Leila Julien MA [facility] 9 09:56:35 Social History Question Answer Notes LastModified by Organizat ion Details LastModified Time Tobacco Smoking Status Former Smoker ELLIOTT Plascencia, [facility] 09/08/2013 11:26:06 Do You [...] E-cigarettes Or Vape? 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 Never Used Smokeless Tobacco [email or web address] Information not available 01/20/2019 How Much Tobacco Do You Smoke? 1 PPW [email or web address] Information not available 01/20/2019 General Stress Level Low Information not available 03/02/2014 Do You Use Sunscreen Routinely? Yes Information not available 03/23/2015 How Many Years Have You Smoked Tobacco? 15 Information not available 12/18/2017 Sex: Unknown Functional Status Question Answer Note LastModified by [employer] ion Details LastModified Time Are you able [...] conjugate PCV 13 5 completed Not Available [facility] 02/26/2019 02:21:36 Influenza, split virus, quadrivalent, PF 5 completed Becky Norton MA [facility] 03/23/2015 14:06:48 Influenza, high-dose, trivalent, PF 7 completed Not Available [facility] 02/26/2019 02:22:21 Novel [id number]-[id number], all formulations 0 completed Not Available [facility] 08/23/2013 13:38:52 pneumococcal polysaccharide PPV23 0 completed Not Available [facility] 08/23/2013 13:38:52 Influenza, split virus, trivalent, preservative 0 completed Not Available [facility] 08/23/2013 13:38:52 Influenza, split virus, trivalent, preservative 1 completed Not Available [facility] 08/23/2013 13:38:52 Influenza, split virus, trivalent, preservative 2 completed Not Available [facility] 08/23/2013 13:38:52 Influenza, split virus, trivalent, preservative 3 completed Not Available [facility] 08/23/2013 13:38:52 Influenza, high-dose, trivalent, PF 8 completed Not Available [facility] 02/26/2019 02:22:14 Influenza, high-dose, trivalent, PF 9 completed Not Available [facility] 02/26/2019 02:22:09 Past Encounters Encounter ID Performer Location Encounter Start Date Encounter Closed Date Diagnosis/Indication Diagnosis SNOMED-CT Code Diagnosis ICD10 Code Diagnosis Note [id number] Tea Handy Main Office [address] [facility] [address] [place], [place] [address] 09/08/2013 11:14:56 09/08/2013 11:58:13 Essential hypertension 39605974 well controlled Asthma 397169639 followe d by pulm, well controlled on symbicort Anxiety state 878015777 Impacted cerumen 86477709 successful ly removed with ear lavage [id number] [facility] [address] [facility] [place] [address] 03/01/2009 00:00:00 [id number] [facility] erce [address] [facility] [place] [address] 03/29/2009 00:00:00 [id number] auto[facility]Comm erce [address] [facility] [place] [address] 09/10/2009 00:00:00 [id number] auto[facility]Comm erce [address] [facility] [place] [address] 11/13/2009 00:00:00 [id number] [facility] erce [address] [facility] [place] [address] 11/30/2009 00:00:00 [id number] auto[facility] erce [address] [facility] [place] [address] 12/21/2009 00:00:00 [id number] auto[facility]Comm erce [address] [facility] [place] [address] 02/11/2010 00:00:00 [id number] [facility] erce [address] [facility] [place] [address] 05/17/2010 00:00:00 [id number] [facility] erce [address] [facility] [place] [address] 08/23/2010 00:00:00 [id number] auto[facility]Comm erce [address] [facility] [place] [address] 09/04/2010 00:00:00 [id number] auto[facility]Comm erce [address] [facility] [place] [address] 11/29/2010 00:00:00 [id number] autoEComm erce [address] [facility] [place], [place] [address] 01/10/2011 00:00:00 [id number] autoEComm erce [address] [facility] [place] [address] 05/02/2011 00:00:00 [id number] autoEComm erce [address] [facility] [place] [address] 10/31/2011 00:00:00 [id number] auto[facility]Comm erce [address] [facility] [place] [address] 04/29/2012 00:00:00 [id number] autoEComm erce [address] [facility] [place] [address] 07/15/2012 00:00:00 [id number] autoEComm erce [address] [facility] [place] [address] 01/27/2013 00:00:00 [id number] [facility] Main Office [address] [address] [place] [address] 09/26/2013 13:41:44 09/26/2013 14:55:33 Dermatitis 391616209 candidal dermatitis [id number] [facility] Main Office Count includes the [facility] [address] [place] [address] 03/02/2014 12:39:53 03/02/2014 13:42:38 Essential hypertension 16612881 Hyponatremia 70659426 pt to see Dr Pride regularly/ pt aware that she needs to stop using clorazepat e / see psych referral Anxiety state 683213217 Dysuria 71575058 [id number] Becky Norton [place] Main Office [address] [address] [place] [address] 04/21/2014 14:46:19 04/21/2014 15:48:33 Essential hypertension 68206663 both meds helpful/ Diltiazem and lisinopril Gastroesop hageal reflux disease 737460720 pt on PPI Anxiety state 343133118 Asthma 959071389 [id number] Ricardo medellin Main Office [address] [address] [place] [address] 03/23/2015 13:27:48 03/23/2015 14:47:01 Adult health examination 647432509 Z00.00 At [facility] ed risk for falls 683160018 Z91.81 Advance di rective discussed with patient 386757305 Z71.89 pt will have her brother as health care proxy Essential hypertension 52277421 I10 both meds helpful/ Diltiazem and lisinopril Polyp of colon 40477415 K63.5 pt due for colonoscop y 2016 /tubular adenoma/We iss Asthma 988084230 J45.90 9 Anxiety state 747133674 F41.1 [id number] Ricardo medellin Main Office [address] [address] [place] [address] 10/05/2015 12:46:12 10/05/2015 13:40:50 Essential hypertension 03845902 I10 both meds helpful/ Diltiazem and lisinopril Asthma 686782479 J45.90 9 urged pt to get flu shot soon. Anxiety state 140763862 F41.1 [id number] Ricardo medellin Main Office [address] [address] [place] [address] 06/19/2016 12:55:50 06/19/2016 14:13:50 Fatigue 85723302 R53.83 Abnormal weight loss 267 196603 R63.4 Diarrhea 51156633 R19.7 Nausea 488260273 R11.0 d/w pt to elevate HOB/ cont PPI Impaired f asting glycemia 604547696 R73.01 [id number] Ricardo medellin Main Office [address] [address] [place] [address] 10/23/2016 14:30:06 10/23/2016 15:27:24 [id number] Ricardo medellin Main Office [address] [address] [place] [address] 10/31/2016 13:21:48 10/31/2016 14:41:18 Lumbosacral radiculitis 77860312 M54.17 Influenza vaccine needed 7319652289 106 Z23 [id number] Ricardo Carversusana medellin Main Office [address] [address] [place] [address] 12/01/2016 13:04:53 12/01/2016 14:09:38 Adult health examination 493671708 Z00.00 Essential hypertension 75734420 I10 both meds helpful/ Diltiazem and lisinopril Anxiety state 174576106 F41.1 [id number] Ricardo Carversusana medellin Main Office [address] [address] [place] [address] 05/15/2017 11:16:16 05/15/2017 12:12:51 Anxiety state 210150126 F41.1 Essential hypertension 52851982 I10 both meds helpful/ Diltiazem and lisinopril Incomplete emptying of urinary bladder 619962700 R39.14 [id number] Maryanne fernandes Main Office [address] [address] [place] [address] 11/13/2017 10:36:20 11/13/2017 11:18:17 Anxiety state 854250588 F41.1 has been on med for 20+ years, she is taking 3.75mg daily, will try to cut the dose in half if possible. f/u in 1 month for wellness visit. Influenza vaccine needed 2662370488 106 Z23 Gastroesop hageal reflux disease 798123043 K21.9 Essential hypertension 66755673 I10 well controlled , continue meds as directed. [id number] Ramon Callahan MD Main Office [address] [address] [place] [address] 12/18/2017 12:40:39 12/18/2017 13:46:58 Adult health examination 513693264 Z00.00 [facility], she will call [employer] for appt Varicella vaccination 68 995721 Z23 Asthma 701243448 J45.90 9 Essential hypertension 95656426 I10 well controlled , continue meds as directed. Family his tory of Hypercholesterolemia 541596813 Z83.49 Anxiety state 858662337 F41.1 has been on med for 20+ years, she is taking 3.75mg daily, will try to cut the dose in half if possible. f/u in 1 month for wellness visit. [id number] Denis Marcos [facility] Main Office [address] [facility] [address] [place] [address] 06/11/2018 12:42:51 06/11/2018 13:40:40 Low back pain 705597269 M54.5 Patient with chronic low back pain, in PT, seeing chiropract or, but wondering if she should be seeing someone else. Will check XR and refer back to [facility], she has seen them for this in the past. continue sx treatment, ibuprofen as needed. Cramp in lower limb 4499 01257 R25.2 Essential hypertension 50317553 I10 well controlled , continue meds as directed. Fatigue 27929776 R53.83 [id number] Denis Marcos [facility] Main Office [address] [facility] [address] [place] [address] 01/20/2019 09:41:15 01/20/2019 10:33:29 Adult health examination 082131435 Z00.00 hm UTD, she has mammo scheduled, needs to call [employer]. Influenza vaccine needed 1575441207 106 Z23 Impaired f asting glycemia 056941782 R73.01 in June, sugar 125 and she believes she was fasting Hyperlipidemia 96558019 E78.5 Health Concerns Section Related Observation LastModified by Organization Detai ls LastModified Time None Recorded Concern Status LastModified by Organization Details LastModified Time None Recorded Advance Directives Directive Y: Payers Encounter Date Sequence Insurance Name Policy Number Policy Menendez Covered Member ID Menendez Member ID Guarantor Name 05/15/2017 2 [place] [id number] Noris E Oparowski [id number] Noris E Ameya 05/15/2017 1 [place] Noris E Oparowski [id number] 06 [id number] Noris E Isidroki 11/13/2017 2 [place] [id number] Noris E Oparowski [id number] Noris E Ameya 11/13/2017 1 [place] Noris E Oparowski [id number] 06 [id number] Noris E Oparowski 12/18/2017 2 [place] [id number] Noris E Oparowski [id number] Noris E Oparowski 12/18/2017 1 [place] Noris E Oparowski [id number] 06 [id number] Noris E Oparowski 06/11/2018 2 [facility] [id number] Noris E Oparowski [id number] Noris E Oparowski 06/11/2018 1 [place] Noris E Oparowski [id number] 06 [id number] Noris E Oparowski 01/20/2019 2 [facility] [id number] Noris E Oparowski [id number] Noris E Oparowski 01/20/2019 1 [place] Noris E Oparowski [id number] 06 [id number] Noris E Oparowski Notes Date Note Type Note Provider Name and Address Organization Details Recorded Time 05/15/2017 text/html Anxiety/Depressi onRepo rted bypatient.Quality:incr eased anxiety; pt reports that sthe plans to return to her pschologist Dr Valdes this year Severity:able to maintain relationships Associated Symptoms:no significant weight gain; mood good; pt has prison hx of benzo use , > 20 [...] fever;incomplete emptying of bladder Ricardo D'Anthony null, 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 DR saw Dr. Miller at [facility]. Was discharged in 2017 due to improvement with PT. 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 Since the fall her back pain is worse. NICOLÁS Fay [address] [address], [place], [address], [facility] 06/11/2018 13:40:34 01/20/2019 text/html Medicare Annual Wellness [...] states she found a new PCP in [place] but cannot be seen until May. Denis Marcos [facility] [address] [address], [place], [address], [facility] 01/20/2019 10:57:40 OBGyn Episode No OBEpisode recorded.
--- OUTSIDE RECORDS SUMMARY | 2024-05-17 13:46 | XMS_ITS | Encounter Summary ---
Author Organization [facility] Address [address] [place] [address] Care Team Providers Care Party Plan Sales Agent Name Role Phone Gennaro Guillaume MD Primary Care Provider Yadira [facility], Pcp Primary Care Provider Unavailformerly [facility] e Reason for Visit * Reason Onset Date Comments refill request 06/03/2019 Encounter Details Date Type Department Care Team Description 06/03/2019 Refill Medicine/Pediatrics - [address] [address] Gennaro Guillaume MD refill request Social History [...] / Plan[place] / Product Type: MEDICARE [id number] documented in this encounter Plan of Treatment Not on file documented as of this encounter Visit Diagnoses Not on filedocumented in this encounter Care Teams Party Plan Sales Agent Relationship Specialty Start Date End Date Gnenaro Guillaume MD PCP - General Internal Medicine 12/16/18 09/22/19 [facility] 09/23/19 documented as of this encounter
--- OUTSIDE RECORDS SUMMARY | 2024-05-17 13:46 | XMS_ITS | Encounter Summary ---
Author Organization [facility] Address [address] [place] [address] Care Team Providers Care Merchandising Lead Name Role Phone Gennaro Guillaume MD [facility] Primary [facility] Provider Adriana e Reason for Visit * Reason Onset Date Comments Appointment-Internal Referral 08/08/2019 en docrinology Encounter Details Date Type Department Care Team Description 08/08/2019 Telephone Medicine/Pediatrics - [address] [address] Gennaro Guillaume MD Appointment-Internal Referral (endocrinology) Social [...] on filedocumented in this encounter Care Teams Merchandising Lead Relationship Specialty Start Date End Date Gennaro Guillaume MD PCP - General Internal Medicine 12/16/18 09/22/19 [facility], Pcp PCP - General Internal Medicine 09/23/19 documented as of this encounter
--- OUTSIDE RECORDS SUMMARY | 2024-05-17 13:46 | XMS_ITS | Clinical Summary ---
Author Organization [facility] Address [address] [place] [address] Care Team Providers Care Inbound Sales Representative Name Role Phone Community, Pcp Primary Care [...] CANCER SCREENING 10/16/2021 7, 10/16/2016 (External Completion) BMI CHECK/ADVISE 02/10/2024 05/17/2019, , 07/02/2017, Additional history exists INFLUENZA (Season Ended) 2024 018, 10/31/2016, 11/09/2014, Additional history exists PNEUMOCOCCAL VACCINE Completed 04/21/2014, 03/01/19 10 Care Teams Inbound Sales Representative Relationship Specialty Start Date End Date Community, Pcp PCP - General Internal Medicine 09/23/19
--- OUTSIDE RECORDS SUMMARY | 2024-05-17 13:46 | XMS_ITS | Encounter Summary ---
Author Organization [facility] Address [facility] [place] [address] Care Team Providers Care Corporate Trust Officer Name Role Phone Syd Dhillon Primary Care Provider Un available Gennaro Guillaume MD Primary Care Provider Susyva sean [facility], Pcp Primary Care Provider Adriana pteersen Encounter Details Date Type Department Care Team Description 02/26/2017 Transfer Records Medical Records [address] [place] [address] Abstract, Provider Social History Tobacco Use Types Packs/Day Years Used Date Smoking Tobacco: Former Cigarettes 1 15 Smokeless Tobacco: Never Sex Assigned at Date Recorded Not on file documented as of this encounter Plan of Treatment Not on file documented as of this encounter Visit Diagnoses Not on filedocumented in this encounter Care Teams Corporate Trust Officer Relationship Specialty Start Date End Date Syd Dhillon PCP - General Internal Medicine 02/20/17 9 Gennaro Guillaume MD PCP - General Internal Medicine 12/16/18 09/22/19 [facility], Pcp PCP - General Internal Medicine 09/23/19 documented as of this encounter
== END 2024-05-17 12:10 | disposition home or self-care (01) ==
PROVIDERS: PCP Family Medicine; Visit Provider Family Medicine
DX: I10 Essential (primary) hypertension (principal); J44.9 Chronic obstructive pulmonary disease, unspecified; C44.90 Unspecified malignant neoplasm of skin, unspecified; L08.9 Local infection of the skin and subcutaneous tissue, unspecified; E87.1 Hypo-osmolality and hyponatremia; I87.2 Venous insufficiency (chronic) (peripheral)

== ENCOUNTER → 2024-05-17 11:16 | Outpatient (BNVA) | payer MEDICARE, MEDICAID, SELFPAY | PROVIDERS: PCP Family Medicine; Visit Provider Family Medicine | DX: I10 Essential (primary) hypertension (principal); C44.90 Unspecified malignant neoplasm of skin, unspecified; L08.9 Local infection of the skin and subcutaneous tissue, unspecified; E87.1 Hypo-osmolality and hyponatremia; J44.9 Chronic obstructive pulmonary disease, unspecified; I87.2 Venous insufficiency (chronic) (peripheral); Z85.828 Personal history of other malignant neoplasm of skin; Z87.891 Personal history of nicotine dependence | CPT/HCPCS: 96127; 99212 ==

== ENCOUNTER 2024-05-25 13:14 | Outpatient (AMB) | payer MEDICARE, MEDICAID, SELFPAY ==
--- NOTE | 2024-05-25 13:43 | MHC.OFFVIS ---
Vital Signs 05/25/24 13:45 Height 5 ft 1 in Weight 157 lb BMI 29.7 Intake Visit Reasons: Lymphedema clinic Intake Note: Lymphedema clinic for LE swelling, Right LE worse than the Left LE. Started almost a year ago. Has some discoloration around the ankle. Stream Control Officer Required: No Accompanied by: Self / Same As Patient Allergies Seasonal Allergies Allergy (Mild, Verified 05/25/24 13:47) runny nose latex Allergy (Verified 05/25/24 13:47) rash HPI HPI Lymphedema clinic: Details: Noris is presenting today for our lymphedema clinic. She continues to endorse R>L lower extremity swelling and discomfort. She has no new concerns today. [facility] Medical History Swelling of both lower extremities Pulmonary emboli (~01/2022) Skin cancer History of COVID-19 Essential hypertension Chronic allergic rhinitis Hyponatremia Asthma-COPD overlap syndrome Surgical History History of esophagogastroduodenoscopy (EGD) History of colonoscopy Family History Mother Breast cancer Father Prostate CA Stroke Social History Household Members: None Housing: House Housing Other:: mobile home- friend to be moving in Alcohol intake: current Alcohol intake frequency: 0-2 drinks per day (about 2 daily with ice ) Patient Tobacco Use Status: Former Tobacco user (20 years quit around age 51 ) Tobacco use type: Cigarette Cigarette Packs Per Day: 1.0 Years Smoked: 10 years e-Cigarette/Vaping Use: Never Used Second Hand Smoke Exposure: No service: No Current occupational status: retired 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 Current occupational exposures/hazards: No Cognitive needs: No Hearing needs: No Vision needs: No Review of Systems Const Reports as per HPI and Denies weakness ENT Reports Normal hearing present and Denies dizziness Card Reports as per HPI, Denies chest pain, Denies chest pain at rest, Denies chest pain with activity, Denies dyspnea and Denies dyspnea on exertion Resp Reports as per HPI, Denies cough, Denies dyspnea and Denies dyspnea on exertion GI Reports as per HPI, Denies abdominal pain, Denies nausea and Denies vomiting Musc Denies numbness Skin/Breast Reports as per HPI, Denies erythema and Denies wounds Neuro Reports Normal hearing present, Denies dizziness, Denies numbness, Denies Sensory deficit (Neuro) and Denies weakness Psych Reports no additional complaints Endo Reports no additional complaints Physical Exam Vital Signs: BMI result Body Mass Index 29.7 Neuro Cranial nerves: Yes Normal hearing present Sensory Exam: No Sensory deficit (Neuro) Extrem Other: Bilateral lower extremities: +2 peripheral edema noted bilaterally. Palpable DP pulses. Assessment & Plan Assessment & Plan (1) Lymphedema: Code(s): I89.0 - Lymphedema, not elsewhere classified Category: Medical Plan: Noris is presenting today for our lymphedema clinic. She continues to endorse R>L lower extremity swelling and discomfort. She continues on Coumadin s/p DVT. Noris is presenting today to be fitted for lymphedema pumps. They have had more than 1 month, starting on 04/05/24, of conservative treatments with elevation, compression stockings daily use with 20-30mmHg, and physical activity/home exercises with minimal relief. They continue to have persistent symptoms despite conservative treatments. They are presenting with hyperpigmentation, lymphorrhea, hyperkeratosis, and 2+ pitting edema. They state the right leg is worse than left and there is extension into their abdominal area. It appears that they have stage II lymphedema. Andrew, from [employer], will be fitting them for a pneumatic compression device, which will get mailed to their house. The patient has lymphedema that extends to her upper thigh and abdominal region. The basic pneumatic compression device is not adequate for the patient; it has been trialed but is not clinically appropriate due to the extensive lymphedema noted. The advanced compression device will be the best in this case. Thank you allowing us to care for the patient. Coding Level of Care Code Est Pt Level 3 (21072) Diagnoses Lymphedema I89.0
[2024-05-25 13:45] VITALS: BMI 29.7
--- OUTSIDE RECORDS SUMMARY | 2024-05-25 15:40 | XMS_ITS | Encounter Summary ---
Author Organization [facility] Address [facility] [place] [address] Care Team Providers Care Book Jacket Cover Machine Operator Name Role Phone Gennaro Guillaume MD Primary Care Provider Yadira estrada [facility], Pcp Primary Care Provider Adirana e Reason for Visit * Reason Onset Date Comments Orders Call 07/21/2019 Encounter Details Date Type Department Care Team Description 07/21/2019 Telephone Medicine/Pediatrics - [address] [phone] Gennaro Guillaume MD Orders Call Social History [...] listed in the contacts info Tel # [phone] * Telephone Encounter - Melanie Horowitz - 07/21/2019 11:30 AM EDT Patient needs order faxed to who. Please provide phone number and fax * Telephone Encounter - Jackie Chan - 07/21/2019 11:01 AM EDT Pt needs the order faxed over to them from 07/18 referral - pt has appt on 07/24 - fax [phone] documented in this encounter Plan of Treatment Not on file documented as of this encounter Visit Diagnoses Not on filedocumented in this encounter Care Teams Book Jacket Cover Machine Operator Relationship Specialty Start Date End Date Gennaro Guillaume MD PCP - General Internal Medicine 12/16/18 09/22/19 [facility], Pcp PCP - General Internal Medicine 09/23/19 documented as of this encounter
--- OUTSIDE RECORDS SUMMARY | 2024-05-25 15:40 | XMS_ITS | Encounter Summary ---
Author Organization [facility] Address [address] [place] [id number] Care Team Providers Care Senior Rd Engineer Name Role Phone Syd Dhillon Primary Care Provider Un available Gennaro Guillaume MD Primary Care Provider Susyva sean [facility], Pcp Primary Care Provider Adriana petersen Encounter Details Date Type Department Care Team Description 02/27/2017 Release of Information Medical Records [address] [place] [id number] Abstract, Provider Social History Tobacco Use Types Packs/Day Years Used Date Smoking Tobacco: Former Cigarettes 1 15 Smokeless Tobacco: Never Sex Assigned at Date Recorded Not on file documented as of this encounter Plan of Treatment Not on file documented as of this encounter Visit Diagnoses Not on filedocumented in this encounter Care Teams Senior Rd Engineer Relationship Specialty Start Date End Date Syd Dhillon PCP - General Internal Medicine 02/20/17 9 Gennaro Guillaume MD PCP - General Internal Medicine 12/16/18 09/22/19 [facility], Pcp PCP - General Internal Medicine 09/23/19 documented as of this encounter
--- OUTSIDE RECORDS SUMMARY | 2024-05-25 15:40 | XMS_ITS | Encounter Summary ---
Author Organization [facility] Address [address] [place] [address] Care Team Providers Care Senior Financial Consultant Name Role Phone Gennaro Guillaume MD [facility] Primary Care Provider Adriana e Reason for Visit * Reason Onset Date Comments Appointment-Internal Referral 08/08/2019 en docrinology Encounter Details Date Type Department Care Team Description 08/08/2019 Telephone Medicine/Pediatrics - [address] [phone] Gennaro Guillaume MD Appointment-Internal Referral (endocrinology) Social [...] filedocumented in this encounter Care Teams Senior Financial Consultant Relationship Specialty Start Date End Date Gennaro Guillaume MD PCP - General Internal Medicine 12/16/18 09/22/19 [facility], Pcp PCP - General Internal Medicine 09/23/19 documented as of this encounter
--- OUTSIDE RECORDS SUMMARY | 2024-05-25 15:40 | XMS_ITS | Encounter Summary ---
Author Organization [facility] Address [address] [place] [address] Care Team Providers Care Anesthesiology Resident Name Role Phone Gennaro Guillaume MD Primary Care Provider Yadira [facility], Pcp Primary Care Provider Unavaildannie e Reason for Visit * Reason Onset Date Comments medication problems 07/01/2019 Encounter Details Date Type Department Care Team Description 07/01/2019 Telephone Medicine/Pediatrics - [address] [phone] Gennaro Guillaume MD medication problems Social History [...] EDT Who is calling? A pharmacist: Pharmacy: [facility] - Pharmacist Name: FAX - Pharmacy Name [...] unspecified documented in this encounter Care Teams Anesthesiology Resident Relationship Specialty Start Date End Date Gennaro Guillaume MD PCP - General Internal Medicine 12/16/18 09/22/19 [facility] PCP - General Internal Medicine 09/23/19 documented as of this encounter
--- OUTSIDE RECORDS SUMMARY | 2024-05-25 15:40 | XMS_ITS | Encounter Summary ---
Author Organization [facility] Address [address] [place] [address] Care Team Providers Care Master Ocean Name Role Phone Gennaro Guillaume MD Primary Care Provider Yadira [facility], Pcp [facility] Reason for Visit * Reason Onset Date Comments refill request 06/03/2019 Encounter Details Date Type Department Care Team Description 06/03/2019 Refill Medicine/Pediatrics - [address] [phone] Gennaro Guillaume MD refill request Social History [...] / Plan[place] / Product Type: MEDICARE [id number] documented in this encounter Plan of Treatment Not on file documented as of this encounter Visit Diagnoses Not on filedocumented in this encounter Care Teams Master Ocean Relationship Specialty Start Date End Date Gennaro Guillaume MD PCP - General Internal Medicine 12/16/18 [facility]22[facility] 09/23/19 documented as of this encounter
--- OUTSIDE RECORDS SUMMARY | 2024-05-25 15:41 | XMS_ITS | Data Portability ---
Author Organization [facility], Main Office Address [address] [place] [address] Care Team Providers Care Button Maker And Installer Name Role Phone ABDIEL ORTEGA Opinion Polls Survey Worker GRACIELA MILLER Urologist ABDIEL LOZANO Log Haul Operator URBAN PRIDE Patient Accounting Representative HUMBERTO SINGH Film Reader RICARDO HUGHES Chiropractor [phone] [facility] Physical Therapist DENIS MARCOS Primary Care Provider [phone] Assessment No assessment recorded. Plan of Treatment Reminders Order Date Submit Date Provider Last Modified By Organization Details Last Modified Time Details Appointments None recorded. Lab HbA1c (hemoglob in A1c), blood 2018 019 [facility] (Centralized Electronic Ordering - All Locations), Patient Can Go To The Location Of Their Choice, [address] 0 09:38:13 BMP, serum or plasma 2018 019 [employer] [facility] (Centralized Electronic Ordering - All Locations), Patient Can Go To The Location Of Their Choice, [address] 0 09:38:13 lipid panel, serum 2018 019 [facility] (Centralized Electronic Ordering - All Locations), Patient Can Go To The Location Of Their Choice, [address] 0 09:38:13 magnesium , serum or plasma [...] 15:24:52 CMP, serum or plasma 2017 018 [facility] (Centralized [facility] Ordering - All Locations), Patient Can Go To The Location Of Their Choice, 11:56:02 Referral spine center referral - patient in 2017, MRI showed crowding L2 nerve root on the left, having worsenign sx of sciatic pain, low back pain, leg pains bilateral ly. 2018 [facility], [address] [place] [address], [place], [address], 17:23:40 physical therapist referral - At risk for falling [facility], [address], [address], 8 16:26:43 urologist referral - pt has not seen urology in 2 years or more and wants to have consultat ion w/ urologist rather than INNOVATION ANALYST 2017 018 scott Crane MD, [address], [address], [place], [address], 8 13:35:13 Procedures None recorded. Surgeries None recorded. Imaging XR, lumbar spine - chronic low back pain, worsening s/p fall in february [id number] 019 [facility], [address] [place] [address], [address], 9 10:29:46 XR, sacrum + coccyx - s/p fall in february, hx low back arthritis . pain worsening 2018 019 [facility], [address] [place] [address], [address], 9 10:29:44 Medication Orders clorazepa te dipotassi um 3.75 mg tablet 2017 018 [id number], [address] [place], [address], 8 11:18:58 tamsulosi n 0.4 mg capsule 2017 018 [id number], [address] [place], [address], 8 13:01:14 clorazepa te dipotassi um 3.75 mg tablet 2017 018 [facility], [address] [place], [address], 8 12:05:21 Patient TargetsNo targets recorded. Patient Instructions Encounter Date Encounter Id Patient Instructions Last Modified By Organization Details Last Modified Time 11/13/2017 [id number] anxiety disorder: care instructions [email or web address] Not available 11/13/2017 11:18:44 call or return for worsening or concerns. [email or web address] Not available 11/13/2017 11:13:19 I have reviewed the note and agree with the assessment and plan of care. dolores Not available 11/13/2017 12:41:01 12/18/2017 [id number] preventing falls: care instructions [email or web address] Not available [...] medication. [email or web address] Not available 12/18/2017 13:20:44 06/11/2018 [id number] low back pain: exercises [email or web address] Not available 06/11/2018 13:24:20 call or return for worsening or concerns. [email or web address] Not available 06/11/2018 13:22:08 01/20/2019 [id number] preventing falls: care instructions [email or web address] Not available 01/20/2019 10:20:59 call or return for woraening or concerns. [email or web address] Not available 01/20/2019 10:20:56 Reviewed the risks and benefits of intermediate card tender opiate use, OUD discussed with the patient. Reviewed the risks and benefits of other non-opioid pain therapies. Reviewed caution with driving, fall risk, treatment for constipation. Patient verbalizes understanding of risk and benefits, and of OUD. [email or web address] Not available 01/20/2019 09:46:37 Reason for Referral Urologist Referral for Incom plete emptying of urinary bladder pt has not seen urology in 2 years or more and wants to have consultation w/ urologist rather than INNOVATION ANALYST Referring Physician: Ricardo Dhillon, Internal Medicine, Encounter [...] ce of an acute proces s. WSN: [id number] Dictat ed By: Delonte Barrios MD Dictat ed Date/T erlinda: 10:26 a Review ed By: Delonte Barrios MD Signed By: Delonte Barrios MD Signed Date/T erlinda: 10:26 am Transc ribed By: PASTORA Transc ribed Date/T erlinda: 10:24 am Patien t Class: Outpat ient [facility] [address] [place], [address], 06/15/2018 15:07:23 06/15/19 19 06/14/2018 XR, lumba [...] ce of an acute proces s. WSN: [id number] Dictat ed By: Delonte Barrios MD Dictat ed Date/T erlinda: 10:26 a Review ed By: Delonte Barrios MD Signed By: Delonte Barrios MD Signed Date/T erlinda: 10:26 am Transc ribed By: PASTORA Transc ribed Date/T erlinda: 10:24 am Patien t Class: Outpat ient [facility] [address] [place], [address], 06/15/2018 15:07:23 Result Notes None recorded. Problems Name Problem SNOMED Code Status Onset Date Resolution Date Notes Provider Name and Address Organization Details Recorded Time Anemia due to chronic blood loss 816530603 Completed 201108/23/2013 RECORDED 10/31/19 12 2:42PM BY NICKY WOODS ON/ADDEN DUM Michelle Ervin abraham [facility] 6 11:38:21 Anxiety state 031700290 Active 2012 Becky rosario [facility] 7 17:00:55 Tobacco user [id number] Completed 201208/23/2013 RECORDED 01/28/20 13 1:17PM BY ALEXANDRE AGUILAR MA, ANNOTATI ON/ADDEN DUM Becky rosario [facility] 7 17:00:35 History of clinical finding in subject [id number] Completed 201209/17/2016 RECORDED 01/28/20 13 1:17PM BY ALEXANDRE AGUILAR MA, ANNOTATI ON/ADDEN DUM Becky rosario [facility] 7 17:01:11 Asthma 917722607 Active 2012 Becky rosario [facility] 7 17:00:52 Screenin g for malignan t neoplasm of breast Completed 201410/31/2016 Dr. Susy Ortega, negative Becky rosario [facility] 7 13:35:13 Screenin g for malignan t neoplasm of breast Completed 201108/23/2013 RECORDED 10/31/19 12 2:41PM BY JEREL WOODSATI ON/ADDEN DUM Becky rosario, [facility] 7 13:35:13 Chest pain 96920720 Completed 201108/23/2013 RECORDED 10/31/19 12 2:41PM BY JEREL WOODSATI ON/ADDEN DUM Michelle Degutedouard null, [facility] 6 11:38:22 Screenin g for malignan t neoplasm of colon Completed 201208/23/2013 RECORDED 04/30/19 13 2:37PM BY TEA HANDY MA, ANNOTATI ON/ADDEN DUM Michelle Degutedouard null, [facility] 6 11:38:22 Divertic ular disease of colon 676290464 Completed 201108/23/2013 STORY: PT WAS SEEN IN OUR OFFICE 11/30/09 FOR RECTAL BLEEDING AND WAS REFERRED TO GI FOR AN EVALUATI ON. THAT EVENING EVERY TIME THE PT ATE SOMETHIN G SHE WOULD BE GOING TO THE BATHROOM TO HAVE A BM THAT WAS FILLED WITH BLOOD. AFTER A FEW TIMES THE PT TOOK HERSELF TO [facility] TO BE EVALUATE D. THE ONLY [...] JEREL WOODSATI ON/ADDEN DUM Michelle Antoniousha null, [facility] 6 11:38:21 Hemorrha ge of colon 05146684 Completed 201108/23/2013 STORY: STABLE/ STILL ANEMIC; RECORDED 10/31/19 12 2:41PM BY NICKY WOODS ON/ADDEN DUM Michelle rosario [facility] 6 11:38:22 Divertic ulitis of colon 960899769 Active 2011 Becky rosario [facility] 7 17:00:37 Dysuria 83020770 Completed 201108/23/2013 IMPRESSI ON: 3+ LEUKOCYT ES ON UA TODAY, COMPLETE D BACTRIM 2 DAYS AGO, START CIPRO AND SEND CULTURE; RECORDED 10/31/19 12 2:41PM BY NICKY WOODS ON/ADDEN DUM Becky rosario [facility] 7 17:01:13 Gastroes ophageal reflux disease 881445774 Active 2012 Becky rosario [facility] 7 17:00:59 [facility] hyperten julisa 24945525 Active 2012 Becky rosario [facility] 7 17:01:17 Essentia l hyperten julisa 26050859 Completed 201108/23/2013 RECORDED 10/31/19 12 2:41PM BY NICKY WOODS ON/ADDEN DUM Becky rosario [facility] 7 17:01:17 External hemorrho ids 32884592 Active 2012 Becky rosario [facility] 7 17:01:03 Influenz a vaccine needed [id number] 06 Completed 201208/23/2013 RECORDED 04/30/19 13 2:37PM BY TEA HANDY MA, ANNOTATI ON/ADDEN DUM Michelle rosario [facility] 6 11:38:22 Follow-u p encounte r Completed 201208/23/2013 RECORDED 04/30/19 13 2:37PM BY TEA HANDY MA, ANNOTATI ON/ADDEN DUM Michelle Degutis null, [facility] 6 11:38:22 Tobacco user 425622171 Active 2012 Becky rosario, [facility] 7 17:00:35 Adult health examinat ion Completed 201209/17/2016 STORY: COLONOSC OPY DUE SS/TUBUL AR ADENOMA; RECORDED 01/28/20 13 1:58PM BY RICARDO COLE MD, OFFICE VISIT Becky rosario, [facility] 7 17:01:05 Adult health examinat ion Completed 201208/23/2013 RECORDED 04/30/19 13 2:37PM BY TEA HADNY MA, ANNOTATI ON/ADDEN DUM Becky rosario, [facility] 7 17:01:05 Hearing loss 84438279 Active 2012 Becky rosario, [facility] 7 17:00:40 History of Malignan t melanoma 594657417 Active 2013 Becky rosario, [facility] 7 17:00:45 Hypo-osm olality and or hyponatr emia 494070146 Completed 201108/23/2013 RECORDED 10/31/19 12 2:41PM BY NICKY WOODS ON/ADDEN DUM Michelle Degutedouard null, [facility] 6 11:38:21 Impacted cerumen 86314942 Completed 201208/23/2013 RECORDED 01/28/20 13 1:17PM BY ALEXANDRE AGUILAR MA, ANNOTATI ON/ADDEN DUM Becky rosario, [facility] 7 17:00:46 Irritabl e bowel syndrome 65721166 Active 2012 Becky rosario [facility] 7 17:00:31 Renewal of prescrip tion Completed 201208/23/2013 RECORDED 04/30/19 13 2:37PM BY TEA HANDY MA, ANNOTATI ON/ADDEN DUM Michelle Degutis null, [facility] 6 11:38:22 Malignan t melanoma of skin 84511637 Active 2013 Becky rosario, [facility] 7 17:01:28 Active or passive immuniza tion Completed 200908/23/2013 RECORDED 03/01/19 10 9:56AM BY PILLO Masters NP, OFFICE VISIT Michelle rosario [facility] 6 11:38:22 Examinat ion for suspecte d mental disorder Completed 201108/23/2013 RECORDED 10/31/19 12 2:41PM BY NICKY WOODS ON/ADDEN DUM Michelle Degutis null [facility] 6 11:38:22 Pre-surg girish evaluati on Completed 201208/23/2013 IMPRESSI ON: PT IS MEDICALL Y ABLE TO UNDERGO SURGERY, NO ACTIVE ISSUES, IS ABLE TO LAY FLAT AND STILL, EKG NL AND WILL GET LABS; RECORDED 01/28/20 13 1:17PM BY ALEXANDRE AGUILAR MA, NICKY ON/ADDEN DUM Michelle Degutis abraham [facility] 6 11:38:22 Tachycar wesley [id number] Completed 201108/23/2013 RECORDED 10/31/19 12 2:42PM BY NICKY WOODS ON/ADDEN DUM Michelle Degutis null [facility] 6 11:38:22 Retentio n of urine 279249162 Completed 201208/23/2013 RECORDED 04/30/19 13 2:37PM BY TEA HANDY MA, ANNOTATI ON/ADDEN DUM Michelle Degutis abraham [facility] 6 11:38:22 Urinary tract infectio us disease 31035024 Active 2013 Becky rosario [facility] 7 17:01:20 Vaginiti s and vulvovag initis Completed 201108/23/2013 IMPRESSI ON: VAGINAL ITCHING AFTER COMPLETI NG ANTIBIOT ICS; RECORDED 10/31/19 12 2:42PM BY NICKY WOODS ON/ADDEN DUM Michelle Degutis abraham [facility] 6 11:38:22 Impacted cerumen 57067310 Completed 09/17/2016 Becky rosario [facility] 7 17:00:46 Hyponatr emia 64949344 Completed 09/04/2017 Dilshad Hall MD [address], [place], [address] 8 06:00:03 Anemia due to chronic blood loss 027209265 Completed 201109/15/2013 RECORDED 10/31/19 12 2:42PM BY NICKY WOODS ON/ADDEN DUM Michelle Degutis abraham [facility] 6 11:38:21 Tobacco user [id number] Completed 201209/15/2013 RECORDED 01/28/20 13 1:17PM BY ALEXANDRE AGUILAR MA, ANNOTATI ON/ADDEN DUM Becky rosario [facility] 7 17:00:35 Chest pain 69268946 Completed 201109/15/2013 RECORDED 10/31/19 12 2:41PM BY NICKY WOODS ON/ADDEN DUM Michelle Degutis abraham [facility] 6 11:38:22 Screenin g for malignan t neoplasm of colon Completed 201209/15/2013 RECORDED 04/30/19 13 2:37PM BY TEA HANDY MA, ANNOTATI ON/ADDEN DUM Michelle Degutis abraham [facility] 6 11:38:22 Divertic ular disease of colon 395119232 Completed 201109/15/2013 STORY: PT WAS SEEN IN OUR OFFICE 11/30/09 FOR RECTAL BLEEDING AND WAS REFERRED TO GI FOR AN EVALUATI ON. THAT EVENING EVERY TIME THE PT ATE SOMETHIN G SHE WOULD BE GOING TO THE BATHROOM TO HAVE A BM THAT WAS FILLED WITH BLOOD. AFTER A FEW TIMES THE PT TOOK HERSELF TO [facility] TO BE EVALUATE D. THE ONLY [...] 2:41PM BY NICKY WOODS ON/ADDEN TORIE rosario [facility] 6 11:38:21 Hemorrha ge of colon 56538487 Completed 201109/15/2013 STORY: STABLE/ STILL ANEMIC; RECORDED 10/31/19 12 2:41PM BY NICKY WOODS ON/ADDEN TORIE rosario [facility] 6 11:38:22 Dysuria 90837314 Completed 201109/15/2013 IMPRESSI ON: 3+ LEUKOCYT ES ON UA TODAY, COMPLETE D BACTRIM 2 DAYS AGO, START CIPRO AND SEND CULTURE; RECORDED 10/31/19 12 2:41PM BY NICKY WOODS ON/ADDEN DUM Becky rosario [facility] 7 17:01:13 Influenz a vaccine needed [id number] 06 Completed 201209/15/2013 RECORDED 04/30/19 13 2:37PM BY TEA HANDY MA, JERELATI ON/ADDEN DUM Michelle Ervin [facility], [facility] 6 11:38:22 Follow-u p encounte r Completed 201209/15/2013 RECORDED 04/30/19 13 2:37PM BY TEA HANDY MA, ANNOTATI ON/ADDEN DUM Michelle Aziza [facility], [facility] 6 11:38:22 Hypo-osm olality and or hyponatr emia 594543251 Completed 201109/15/2013 RECORDED 10/31/19 12 2:41PM BY NICKY WOODS ON/ADDEN DUM Michelle Aziza [facility], [facility] 6 11:38:21 Impacted cerumen 69118036 Completed 201209/15/2013 RECORDED 01/28/20 13 1:17PM BY ALEXANDRE AGUILAR MA, JERELATI ON/ADDEN DUM Becky Norton [facility], [facility] 7 17:00:46 Renewal of prescrip tion Completed 201209/15/2013 RECORDED 04/30/19 13 2:37PM BY TEA HANDY MA, JERELATI ON/ADDEN DUM Michelle Aziza [facility], [facility] 6 11:38:22 Active or passive immuniza tion Completed 200909/15/2013 RECORDED 03/01/19 10 9:56AM BY PILLO Masters NP, OFFICE VISIT Michelle Aziza [facility], [facility] 6 11:38:22 Examinat ion for suspecte d mental disorder Completed 201109/15/2013 RECORDED 10/31/19 12 2:41PM BY NICKY WOODS ON/ADDEN DUM Michelle Ervin [facility] 6 11:38:22 Pre-surg girish evaluati on Completed 201209/15/2013 IMPRESSI ON: PT IS MEDICALL Y ABLE TO UNDERGO SURGERY, NO ACTIVE ISSUES, IS ABLE TO LAY FLAT AND STILL, EKG NL AND WILL GET LABS; RECORDED 01/28/20 13 1:17PM BY ALEXANDRE AGUILAR MA, NICKY ON/ADDEN DUM Michelle Degutis null, [facility] 6 11:38:22 Tachycar wesley [id number] Completed 201109/15/2013 RECORDED 10/31/19 12 2:42PM BY JEREL WOODSATI ON/ADDEN DUM Michelle Degutis null, [facility] 6 11:38:22 Retentio n of urine 149843039 Completed 201209/15/2013 RECORDED 04/30/19 13 2:37PM BY TEA HANDY MA, NICKY ON/ADDEN DUM Michelle Degutis null, [facility] 6 11:38:22 Vaginiti s and vulvovag initis Completed 201109/15/2013 IMPRESSI ON: VAGINAL ITCHING AFTER COMPLETI NG ANTIBIOT ICS; RECORDED 10/31/19 12 2:42PM BY NICKY WOODS ON/ADDEN DUM Michelle Degutis null, [facility] 6 11:38:22 Anemia due to chronic blood loss 877306775 Completed 201109/16/2013 RECORDED 10/31/19 12 2:42PM BY NICKY WOODS ON/ADDEN DUM Michelle Degutis null, [facility] 6 11:38:21 Tobacco user [id number] Completed 201209/16/2013 RECORDED 01/28/20 13 1:17PM BY ALEXANDRE AGUILAR MA, NICKY ON/ADDEN DUM Becky Norton MA null, [facility] 7 17:00:35 Chest pain 22021936 Completed 201109/16/2013 RECORDED 10/31/19 12 2:41PM BY NICKY WOODS ON/ADDEN DUM Michelle Degutis null, [facility] 6 11:38:22 Screenin g for malignan t neoplasm of colon Completed 201209/16/2013 RECORDED 04/30/19 13 2:37PM BY TEA HANDY MA, ANNOTATI ON/ADDEN DUM Michelle rosario, [facility] 6 11:38:22 Divertic ular disease of colon 877469346 Completed 201109/16/2013 STORY: PT WAS SEEN IN OUR OFFICE 11/30/09 FOR RECTAL BLEEDING AND WAS REFERRED TO GI FOR AN EVALUATI ON. THAT EVENING EVERY TIME THE PT ATE SOMETHIN G SHE WOULD BE GOING TO THE BATHROOM TO HAVE A BM THAT WAS FILLED WITH BLOOD. AFTER A FEW TIMES THE PT TOOK HERSELF TO [facility] TO BE EVALUATE D. THE ONLY [...] BY NICKY WOODS ON/ADDEN DUM Michelle rosario [facility] 6 11:38:21 Hemorrha ge of colon 88873332 Completed 201109/16/2013 STORY: STABLE/ STILL ANEMIC; RECORDED 10/31/19 12 2:41PM BY NICKY WOODS ON/ADDEN TORIE rosario, [facility] 6 11:38:22 Dysuria 54011474 Completed 201109/16/2013 IMPRESSI ON: 3+ LEUKOCYT ES ON UA TODAY, COMPLETE D BACTRIM 2 DAYS AGO, START CIPRO AND SEND CULTURE; RECORDED 10/31/19 12 2:41PM BY NICKY WOODS ON/ADDEN DUM Becky Norton MA null, [facility] 7 17:01:13 Influenz a vaccine needed [id number] 06 Completed 201209/16/2013 RECORDED 04/30/19 13 2:37PM BY TEA HANDY MA, JERELATI ON/ADDEN DUM Michelle Pacousha rosario, [facility] 6 11:38:22 Follow-u p encounte r Completed 201209/16/2013 RECORDED 04/30/19 13 2:37PM BY TEA HANDY MA, NCIKY ON/ADDEN DUM Michelle Pacousha rosario, [facility] 6 11:38:22 Hypo-osm olality and or hyponatr emia 358221984 Completed 201109/16/2013 RECORDED 10/31/19 12 2:41PM BY NICKY WOODS ON/EN DUM Michelle rosario, [facility] 6 11:38:21 Impacted cerumen 05705835 Completed 201209/16/2013 RECORDED 01/28/20 13 1:17PM BY ALEXANDRE AGUILAR MA, NICKY ON/ADDEN TORIE rosario, [facility] 7 17:00:46 Renewal of prescrip tion Completed 201209/16/2013 RECORDED 04/30/19 13 2:37PM BY TEA HANDY MA, NICKY ON/ADDEN DUM Michelle Pacousha rosario, [facility] 6 11:38:22 Active or passive immuniza tion Completed 200909/16/2013 RECORDED 03/01/19 10 9:56AM BY PILLO Masters NP, OFFICE VISIT Michelle rosario, [facility] 6 11:38:22 Examinat ion for suspecte d mental disorder Completed 201109/16/2013 RECORDED 10/31/19 12 2:41PM BY NICKY WOODS ON/ADDEN TORIE Ervin null, [facility] 6 11:38:22 Pre-surg girish hartmanati on Completed 201209/16/2013 IMPRESSI ON: PT IS MEDICALL Y ABLE TO UNDERGO SURGERY, NO ACTIVE ISSUES, IS ABLE TO LAY FLAT AND STILL, EKG NL AND WILL GET LABS; RECORDED 01/28/20 13 1:17PM BY ALEXANDRE AGUILAR MA, ANNOTATI ON/[facility] Degutis null, [facility] 6 11:38:22 Tachycar wesley [id number] Completed 201109/16/2013 RECORDED 10/31/19 12 2:42PM BY NICKY WOODS ON/[facility] Degutis null, [facility] 6 11:38:22 Retentio n of urine [id number] Completed 201209/16/2013 RECORDED 04/30/19 13 2:37PM BY TEA HANDY MA, ANNOTATI ON/[facility] Degutis null [facility] 6 11:38:22 Vaginiti s and vulvovag initis Completed 201109/16/2013 IMPRESSI ON: VAGINAL ITCHING AFTER COMPLETI NG ANTIBIOT ICS; RECORDED 10/31/19 12 2:42PM BY NICKY WOODS ON/[facility] Degutis null [facility] 6 11:38:22 Dermatit is Completed 09/17/2016 Becky rosario [facility] 7 17:00:48 Dysuria 13396240 Completed 09/17/2016 Becky rosario [facility] 7 17:01:13 Insomnia 906832241 Active Michelle Antonioutedouard null [facility] 6 11:38:21 Advance directiv e discusse d with patient 390580560 Completed 09/17/2016 Becky rosario [facility] 7 17:01:07 Polyp of colon 74711330 Active Michelle Aziza abraham [facility] 6 11:38:21 Chronic low back pain 787305953 Active 2018 Rebeca rosario [facility] 9 14:22:51 Problem Notes None recorded. Procedures Surgical History Date Name Laterality Status Provider Name and Address Organization Details Recorded Time 01/21/20 19 Mini-Cog Test completed Leila Julien MA [facility] 01/20/2019 09:52:44 12/30/19 18 Most Recent Mammogram completed Leila Julien MA [facility] 01/20/2019 09:47:42 12/19/19 18 Mini-Cog Test completed Naheed Veliz [facility] 12/18/2017 13:13:25 12/02/19 17 Fall Risk Assessment completed Becky Norton MA [facility] 12/01/2016 13:22:35 12/02/19 17 Mini-Cog Test completed Becky Norton [facility] 12/01/2016 13:23:31 11/29/19 17 Mammogram both breasts completed Kimmy Yañez [facility] 12/09/2016 14:44:18 10/17/19 17 Date of Last Colonoscopy completed Paola Kendall [facility] 12/09/2016 16:54:35 10/17/19 17 Colonoscopy completed Becky Norton MA [facility] 10/24/2016 11:43:36 03/23/19 16 Fall Risk Assessment completed Becky Norton MA [facility] 03/23/2015 13:55:01 03/23/19 16 Mini-Cog Test completed Becky Norton [facility] 03/23/2015 14:02:26 03/23/19 16 Advanced Care Planning completed Becky Norton MA [facility] 03/23/2015 13:41:44 08/19/19 15 Date of Last Pap Smear completed Michelle Ervin [facility] 03/28/2015 11:40:33 02/23/19 11 Most Recent Bone Density completed Becky Norton MA [facility] 03/23/2015 14:07:39 02/09/19 08 Appendectomy completed Tea Tucson [facility] 03/02/2014 10:46:37 Imaging Results Imaging Date Name Status LastModified by Organization Details LastModified Time 05/15/2017 electrocardiogram completed Infor mation not available 05/15/2017 12:36:53 06/14/2018 XR, sacrum + coccyx, 2 or more view active [facility] [address] [place], [address], 06/15/2018 15:07:23 06/14/2018 XR, lumbar spine active [facility] [address] [place], [address], 06/15/2018 15:07:23 Procedure Notes None recorded. Medical Equipment None Reported. Allergies Allergen ID Allergen Name Allergen Category Reaction Reaction Severity Criticality Documentation Date Start Date Code Code System Note Provider Name and Address Organization Details Recorded Time 2935 latex environme nt,medica tion rash Not available Not available 08/23/20132012 88570 91 RxNorm Becky Norton MA [facility] 7 17:00:18 Medications Name Sig [...] Updated DateTime 8 154.94 cm 31.4 kg/m2 41326.4 3 g 98.7 [degF] 96 % 96 % 89 /min 118 mm[Hg] 76 mm[Hg] Becky Norton [facility] 8 11:28:28 Date Recorded Body height Body mass index (BMI) Body weight Heart rate Oxygen saturation Oxygen saturation in Arterial blood by Pulse oximetry Body temperature Systolic blood pressure Diastolic blood pressure Provider Name and Address Organization Details Last Updated DateTime 8 154.94 cm 30.8 kg/m2 56461.5 6 g 94 /min 97 % 97 % 97.5 [degF] 136 mm[Hg] 74 mm[Hg] Jovan Medina [facility] 8 10:41:30 Date Recorded Body height Body mass index (BMI) Body weight Body temperature Heart rate Oxygen saturation Oxygen saturation in Arterial blood by Pulse oximetry Systolic blood pressure Diastolic blood pressure Provider Name and Address Organization Details Last Updated DateTime 8 154.94 cm 30.5 kg/m2 14403.4 7 g 97.2 [degF] 86 /min 96 % 96 % 123 mm[Hg] 72 mm[Hg] Naheed Veliz [facility] 8 12:57:56 Date Recorded Body height Body mass index (BMI) Body weight Heart rate Oxygen saturation Oxygen saturation in Arterial blood by Pulse oximetry Body temperature Systolic blood pressure Diastolic blood pressure Provider Name and Address Organization Details Last Updated DateTime 9 154.94 cm 30.2 kg/m2 69294.7 8 g 92 /min 96 % 96 % 98.4 [degF] 124 mm[Hg] 78 mm[Hg] Ruby Mackey [facility] 9 12:59:19 Date Recorded Body height Body mass index (BMI) Body weight Oxygen saturation Oxygen saturation in Arterial blood by Pulse oximetry Heart rate Body temperature Systolic blood pressure Diastolic blood pressure Provider Name and Address Organization Details Last Updated DateTime 9 154.94 cm 30.7 kg/m2 37561.0 6 g 96 % 96 % 81 /min 98.1 [degF] 119 mm[Hg] 67 mm[Hg] Leila Julien MA [facility] 9 09:56:35 Social History Question Answer Notes LastModified by Organizat ion Details LastModified Time Tobacco Smoking Status Former Smoker ELLIOTT Plascencia, [facility] 09/08/2013 11:26:06 Do You Have [...] E-cigarettes Or Vape? 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 Never Used Smokeless Tobacco [email or web address] Information not available 01/20/2019 How Much Tobacco Do You Smoke? 1 PPW [email or web address] Information not available 01/20/2019 General Stress Level Low Information not available 03/02/2014 Do You Use Sunscreen Routinely? Yes Information not available 03/23/2015 How Many Years Have You Smoked Tobacco? 15 Information not available 12/18/2017 Sex: Unknown Functional Status Question Answer Note LastModified by [facility] ion Details LastModified Time Are you able [...] 13 5 completed Not Available [facility] 02/26/2019 02:21:36 Influenza, split virus, quadrivalent, PF 5 completed Becky Norton MA [facility] 03/23/2015 14:06:48 Influenza, high-dose, trivalent, PF 7 completed Not Available [facility] 02/26/2019 02:22:21 Novel [id number], all formulations 0 completed Not Available [facility] 08/23/2013 13:38:52 pneumococcal polysaccharide PPV23 0 completed Not Available [facility] 08/23/2013 13:38:52 Influenza, split virus, trivalent, preservative 0 completed Not Available [facility] 08/23/2013 13:38:52 Influenza, split virus, trivalent, preservative 1 completed Not Available [facility] 08/23/2013 13:38:52 Influenza, split virus, trivalent, preservative 2 completed Not Available [facility] 08/23/2013 13:38:52 Influenza, split virus, trivalent, preservative 3 completed Not Available [facility] 08/23/2013 13:38:52 Influenza, high-dose, trivalent, PF 8 completed Not Available [facility] 02/26/2019 02:22:14 Influenza, high-dose, trivalent, PF 9 completed Not Available [facility] 02/26/2019 02:22:09 Past Encounters Encounter ID Performer Location Encounter Start Date Encounter Closed Date Diagnosis/Indication Diagnosis SNOMED-CT Code Diagnosis ICD10 Code Diagnosis Note [id number] Tea Handy Main Office [address] [facility] [address] [place], [place] [address] 09/08/2013 11:14:56 09/08/2013 11:58:13 Essential hypertension 36915871 well controlled Asthma 852482317 followe d by pulm, well controlled on symbicort Anxiety state 841871264 Impacted cerumen 67048391 successful ly removed with ear lavage [id number] auto[facility] erce [address] [facility] [place] [address] 03/01/2009 00:00:00 [id number] autoEComm erce [address] [facility] [place] [address] 03/29/2009 00:00:00 [id number] autoEComm erce [address] [facility] [place] [address] 09/10/2009 00:00:00 [id number] autoEComm erce [address] [facility] [place] [address] 11/13/2009 00:00:00 [id number] autoEComm erce [address] [facility] [place] [address] 11/30/2009 00:00:00 [id number] autoEComm erce [address] [facility] [place] [address] 12/21/2009 00:00:00 [id number] autoEComm erce [address] [facility] [place] [address] 02/11/2010 00:00:00 [id number] autoEComm erce [address] [facility] [place] [address] 05/17/2010 00:00:00 [id number] autoEComm erce [address] [facility] [place] [address] 08/23/2010 00:00:00 [id number] autoEComm erce [address] [facility] [place] [address] 09/04/2010 00:00:00 [id number] autoEComm erce [address] [facility] [place] [address] 11/29/2010 00:00:00 [id number] autoEComm erce [address] [facility] [place], [place] [address] 01/10/2011 00:00:00 [id number] autoEComm erce [address] [facility] [place] [address] 05/02/2011 00:00:00 [id number] autoEComm erce [address] [facility] [place] [address] 10/31/2011 00:00:00 [id number] autoEComm erce [address] [facility] [place] [address] 04/29/2012 00:00:00 [id number] autoEComm erce [address] [facility] [place] [address] 07/15/2012 00:00:00 [id number] autoEComm erce [address] [facility] [place] [address] 01/27/2013 00:00:00 [id number] [facility] Main Office [address] [address] [place] [address] 09/26/2013 13:41:44 09/26/2013 14:55:33 Dermatitis 013838324 candidal dermatitis [id number] [facility] Main Office [facility] [address] [place] [address] 03/02/2014 12:39:53 03/02/2014 13:42:38 Essential hypertension 35071129 Hyponatremia 34762791 pt to see Dr Pride regularly/ pt aware that she needs to stop using clorazepat e / see psych referral Anxiety state 432601299 Dysuria 22091878 [id number] Becky Norton [place] Main Office [address] [address] [place] [address] 04/21/2014 14:46:19 04/21/2014 15:48:33 Essential hypertension 77360366 both meds helpful/ Diltiazem and lisinopril Gastroesop hageal reflux disease 904111864 pt on PPI Anxiety state 648648447 Asthma 722116242 [id number] Ricardo medellin Main Office [address] [address] [place] [address] 03/23/2015 13:27:48 03/23/2015 14:47:01 Adult health examination 899608572 Z00.00 At [facility] ed risk for falls 759562406 Z91.81 Advance di rective discussed with patient 694783463 Z71.89 pt will have her brother as health care proxy Essential hypertension 91271980 I10 both meds helpful/ Diltiazem and lisinopril Polyp of colon 73318782 K63.5 pt due for colonoscop y 2016 /tubular adenoma/We iss Asthma 967979830 J45.90 9 Anxiety state 208463660 F41.1 [id number] Ricardo medellin Main Office [address] [address] [place] [address] 10/05/2015 12:46:12 10/05/2015 13:40:50 Essential hypertension 27138700 I10 both meds helpful/ Diltiazem and lisinopril Asthma 047972039 J45.90 9 urged pt to get flu shot soon. Anxiety state 281762177 F41.1 [id number] Ricardo medellin Main Office [address] [address] [place] [address] 06/19/2016 12:55:50 06/19/2016 14:13:50 Fatigue 85114070 R53.83 Abnormal weight loss 267 634364 R63.4 Diarrhea 89541714 R19.7 Nausea 036198987 R11.0 d/w pt to elevate HOB/ cont PPI Impaired f asting glycemia 872796978 R73.01 [id number] Ricardo medellin Main Office [address] [address] [place] [address] 10/23/2016 14:30:06 10/23/2016 15:27:24 [id number] Ricardo medellin Main Office [address] [address] [place] [address] 10/31/2016 13:21:48 10/31/2016 14:41:18 Lumbosacral radiculitis 43649544 M54.17 Influenza vaccine needed 1567014993 106 Z23 [id number] Ricardo Carversusana medellin Main Office [address] [address] [place] [address] 12/01/2016 13:04:53 12/01/2016 14:09:38 Adult health examination 750093494 Z00.00 Essential hypertension 83252701 I10 both meds helpful/ Diltiazem and lisinopril Anxiety state 581457478 F41.1 [id number] Ricardo Carversusana medellin Main Office [address] [address] [place] [address] 05/15/2017 11:16:16 05/15/2017 12:12:51 Anxiety state 681175501 F41.1 Essential hypertension 63595474 I10 both meds helpful/ Diltiazem and lisinopril Incomplete emptying of urinary bladder 707853469 R39.14 [id number] Maryanne fernandes Main Office [address] [address] [place] [address] 11/13/2017 10:36:20 11/13/2017 11:18:17 Anxiety state 531525833 F41.1 has been on med for 20+ years, she is taking 3.75mg daily, will try to cut the dose in half if possible. f/u in 1 month for wellness visit. Influenza vaccine needed 2381771371 106 Z23 Gastroesop hageal reflux disease 505283260 K21.9 Essential hypertension 91904537 I10 well controlled , continue meds as directed. [id number] Ramon Callahan MD Main Office [address] [address] [place] [address] 12/18/2017 12:40:39 12/18/2017 13:46:58 Adult health examination 235663006 Z00.00 [facility], she will call ASSISTANT SURVEYOR for appt Varicella vaccination 68 824104 Z23 Asthma 512028232 J45.90 9 Essential hypertension 79771956 I10 well controlled , continue meds as directed. Family his tory of Hypercholesterolemia 970950945 Z83.49 Anxiety state 990474142 F41.1 has been on med for 20+ years, she is taking 3.75mg daily, will try to cut the dose in half if possible. f/u in 1 month for wellness visit. [id number] Denis Marcos [facility] Main Office [address] [facility] [address] [place] [address] 06/11/2018 12:42:51 06/11/2018 13:40:40 Low back pain 072345245 M54.5 Patient with chronic low back pain, in PT, seeing chiropract or, but wondering if she should be seeing someone else. Will check XR and refer back to [facility], she has seen them for this in the past. continue sx treatment, ibuprofen as needed. Cramp in lower limb 4499 99303 R25.2 Essential hypertension 73478404 I10 well controlled , continue meds as directed. Fatigue 86926624 R53.83 [id number] Denis Marcos [facility] Main Office [address] [facility] [address] [place] [address] 01/20/2019 09:41:15 01/20/2019 10:33:29 Adult health examination 740115904 Z00.00 hm UTD, she has mammo scheduled, needs to call ASSISTANT SURVEYOR. Influenza vaccine needed 3944200301 106 Z23 Impaired f asting glycemia 274482845 R73.01 in June, sugar 125 and she believes she was fasting Hyperlipidemia 36600014 E78.5 Health Concerns Section Related Observation LastModified by Organization Detai ls LastModified Time None Recorded Concern Status LastModified by Organization Details LastModified Time None Recorded Advance Directives Directive Y: Payers Encounter Date Sequence Insurance Name Policy Number Policy Menendez Covered Member ID Menendez Member ID Guarantor Name 05/15/2017 2 [place] [id number] Noris E Oparowski [id number] Noris E Ameya 05/15/2017 1 [place] [employer] [place] Noris E Oparowski [id number] 06 [id number] Noris E Isidroki 11/13/2017 2 [place] [id number] Noris E Oparowski [id number] Noris E Ameya 11/13/2017 1 [place] [place] Noris E Oparowski [id number] 06 [id number] Noris E Oparowski 12/18/2017 2 [place] [id number] Noris E Oparowski [id number] Noris E Oparowski 12/18/2017 1 [place] [place] Noris E Oparowski [id number] 06 [id number] Noris E Oparowski 06/11/2018 2 [facility] [id number] Noris E Oparowski [id number] Noris E Oparowski 06/11/2018 1 [place] [employer] [place] Noris E Oparowski [id number] 06 [id number] Noris E Oparowski 01/20/2019 2 [facility] [id number] Noris E Oparowski [id number] Noris E Oparowski 01/20/2019 1 [place] [employer] Noris E Oparowski [id number] 06 [id number] Noris E Oparowski Notes Date Note Type Note Provider Name and Address Organization Details Recorded Time 05/15/2017 text/html Anxiety/Depressi onRepo rted bypatient.Quality:incr eased anxiety; pt reports that sthe plans to return to her pschologist Dr Valdes this year Severity:able to maintain relationships Associated Symptoms:no significant weight gain; mood good; pt has intermediate card tender hx of benzo use , > 20 [...] fever;incomplete emptying of bladder Ricardo D'Anthony null, [facility] 05/15/2017 12:16:47 11/13/2017 text/html Anxiety/Depressi onRepo rted bypatient.Quality:incr eased anxiety; stress, car trouble Severity:able to maintain relationships Context:major life stressors;family problems Associated Symptoms:no significant weight gain;high irritability;hostility ;anxiety;hypersensitiv ity;anxiety with muscle tension; pt has longterm hx of benzo use , > 20 yearsNotes:+ hx nausea and diarrhea, panic attacks etc Maryanne KhanSofiya rosario [facility] 11/13/2017 12:41:13 12/18/2017 text/html Medicare [...] working on it) Ramon Callahan MD [address] [address], [place], [address], [facility] [place] 12/19/2017 16:52:49 06/11/2018 text/html Generic HPI TemplateReported [...] strengthen legs. DR saw Dr. Miller at [facility]. Was discharged in 2017 due to improvement with PT. 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 Since the fall her back pain is worse. NICOLÁS Fay [address] [address], [place], [address], [facility] [place] 06/11/2018 13:40:34 01/20/2019 text/html Medicare Annual Wellness [...] states she found a new PCP in [place] but cannot be seen until May. Denis Marcos [facility] [address] [address], [place], [address], [facility] 01/20/2019 10:57:40 OBGyn Episode No OBEpisode recorded.
== END 2024-05-25 14:07 | disposition home or self-care (01) ==
LOC: HO.HVS 13:14
PROVIDERS: PCP Family Medicine; Visit Provider Physician Assistant Surgical
DX: I89.0 Lymphedema, not elsewhere classified (principal)
CPT/HCPCS: 99213

== ENCOUNTER → 2024-05-25 13:14 | Outpatient (BNVA) | payer MEDICARE, MEDICAID, SELFPAY | PROVIDERS: PCP Family Medicine; Visit Provider Physician Assistant Surgical | DX: I89.0 Lymphedema, not elsewhere classified (principal); Z87.891 Personal history of nicotine dependence | CPT/HCPCS: 99212 ==

== ENCOUNTER 2024-05-31 14:47 | Outpatient (AMB) | payer MEDICARE, MEDICAID, SELFPAY ==
[2024-05-31 15:04] LABS: ~PT, ~INR - Anti Coag Clinic 2.5 (0.9-1.1)
--- NOTE | 2024-05-31 15:24 | MHC.OFFVISCO ---
Intake Intake Visit Reasons: Anticoagulation Allergies Seasonal Allergies Allergy (Mild, Verified 05/25/24 13:47) runny nose latex Allergy (Verified 05/25/24 13:47) rash Medication List - Last Reconciled 05/31/24 by Mirella Cooley, RN albuterol sulfate 90 mcg/actuation 2 puffs inhalation Q8H PRN cetirizine (Zyrtec) 10 mg PO DAILY PRN cholecalciferol (vitamin D3) 50 mcg PO DAILY citalopram 20 mg PO DAILY 90 days clonazepam 0.5 mg PO BID PRN diltiazem HCl CD 120 mg PO DAILY 90 days fluticasone propionate 50 mcg/actuation (Flonase Allergy Relief) 1 spray intranasal Q12H 30 days gabapentin 300 mg PO BID losartan 12.5 mg (1/2 x 25 mg) PO DAILY 90 days mometasone-formoterol 200-5 mcg/actuation (Dulera) 2 puffs inhalation Q12H 30 days omeprazole 20 mg PO DAILY tamsulosin 0.4 mg PO BEDTIME 90 days warfarin 2 mg See Protocol PO DAILY 30 days Nursing Note INR: 2.5 in therapeutic range of 2-3 Pt scheduled for MOHS procedure 06/02/24 and Plastic surgery 06/03/24 Her last dose of warfarin was 05/29/24. Pt states she received orders from [facility] about when to start holding warfarin. T/C to Dr Flor's office to question if lovenox necessary. Pt states the sales representative education courses called he PCP and questioned the need to be on warfarin at all. This was previously addressed with Dr Flor. Pt states she has concerns for how she will get to [facility] in the near future as she will have a large dsg on her face that will hinder her vision and she won't be able to drive. She did mention she will be having VNA for dsg changes at home per order of the Plastic surgeon. T/C to Dr Sachin Manzano [facility] to add an order for VNA to do INR check when they come for dsg change. Spoke to [place] who messaged the nurse regarding this VNA. Medications and supplements reviewed. Was on Cephalexin but completed course. No changes in health, diet, medications, or supplements, Denies any signs and symptoms of bleeding or bruising or clotting. Bleeding, bruising, clotting discussed Nutritional guidance given to avoid greens when restarting warfarin. Dose: on hold presently for procedure as above. Pt given instructions to take 2mg the first 2 days when able to restart warfarin then to resume usual dose. 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 Illness/Depression: Yes (anxiety ) Coding Level of Care Code Est Patient Level 1 Diagnoses Current use of anticoagulant therapy Z79.01 Assessment & Plan Assessment & Plan (1) Current use of anticoagulant therapy: Code(s): Z79.01 - exterminator (current) use of anticoagulants Category: Medical
--- OUTSIDE RECORDS SUMMARY | 2024-05-31 17:39 | XMS_ITS | Continuity of Care Document ---
Author Organization Pre Op Overflow Address [address] [place] [address]- Care Team Providers Care Data Systems Manager Name Role Phone Basia AGUILA, Ric Greene Primary Care Physician Encounter [facility] ACCT R [id number] Date(s): 05/20/24 - 05/27/24 Pre Op Overflow [address] [place], [place] [address] Attending Physician: Kamari Islas DO Referring Physician: Sachin Manzano MD Encounter Type: Office Visit Allergies, Adverse Reactions, Alerts Substance Criticality Severity Reaction Reaction Severity Status Latex Unable to assess criticality Unknown rash Active Immunizations Given and Recorded Vaccine Date Status Refusal Reason tetanus/diphtheria/pertussis, acel(Tdap) 10/06/22 Given tetanus/diphtheria/pertussis, acel(Tdap) 08/27/11 Recorded SARS-CoV-2 mRNA ([id number]) vax 03/29/21 Recorded SARS-CoV-2 (COVID-19) mRNA BNT-162b2 [...] Quantity: 30.0 Unit: capsule Repeat number: 1 Dulera 200 mcg-5 mcg/inh inhalation aerosol 2 inhalation, Inhalation, 2 times a day, rinse mouth and throat after use, # 13 Gm, 0 Refills, Maintenance, 05/24/24 10:36:00 PM EDT, Aerosol, Partial fill upon patient request if the prescription is for a schedule II opioid drug. Start Date: 05/24/24 Status: Ordered Quantity: 13.0 Unit: g Repeat number: 1 Flomax 0.4 mg oral [...] 4 Refills, Maintenance, 05/12/22 11:49:00 AM EDT, [facility]/pharmacy #[id number], Partial fill upon patient request if [...] oldest [Reference Range]: 1 Height 155 cm (05/20/24 2:01 PM) Weight 72 kg (05/20/24 2:01 PM) Oxygen Saturation [94-100 %] 96 % (05/20/24 2:01 PM) Pulse Rate [55-90 bpm] 101 bpm *H* (05/20/24 2:01 PM) Body Mass Index [18.5-24.99 kg/m2] 29.97 kg/m2 *H* (05/20/24 2:01 PM) Blood Pressure [90-138/55-84 mm Hg] 124/ 53mm Hg (05/20/24 2:01 PM) Respiratory Rate [16-30 br/min] 18 br/mi n (05/20/24 2:01 PM) Mode of Delivery (Oxygen) Room air (05/20/24 2:01 PM) Blood pressure sites Arm, left (05/20/24 2:01 PM) Weight Obtained Via Patient/family state d (05/20/24 2:01 PM) Social History Social History Type Response Smoking Status Former smoker, quit more than 30 days ago entered on: 07/08/19 Sex Sex Representation Female (finding) EKG study * Event Display: ECG 12-Lead Authored Date: Please click on pdf link to open report * Event Display: ECG 12-Lead Authored Date: Ventricular Rate: 85 BPM Atrial Rate: 85 BPM P-R Interval: 180 ms QRS Duration: 90 ms Q-T Interval: 346 ms QTC Calculation(Bazett): 411 ms P Bowie: 47 degrees R Bowie: -49 degrees T Bowie: 8 degrees Sinus rhythm with Premature atrial complexes Consider right ventricular involvement in acute inferior infarct Left anterior fascicular block Abnormal ECG When compared with ECG of 23-Apr-2022 09:32, Premature atrial complexes are now Present Confirmed by Jaime Galaviz ([id number]) on 05/20/2024 3:44:39 PM Brandon: Jaime Galaviz Patient Care team information Care Team Personnel Name: Ric Flor MD Position: S Outreach Member Role: PCP Address: [address] [place] [address] Telecom: Care Team Related Persons Name: LUISITO LUZ Name: CLAUDIA ELENA Name: FIDENCIO MAGAÑA Insurance Providers Guarantor name: ELVER BURNSHARRIETT Health Plan Information #: 3 Payer: [employer] Member Number: [id number] Policy Number: NA Group Number: NA Health Plan Information #: 1 Payer: MEDICARE PART B OUTPT Member Number: [id number] Policy Number: NA Group Number: NA Health Plan Information #: 2 Payer: MEDEX Member Number: [id number] Policy Number: NA Group Number: NA
--- OUTSIDE RECORDS SUMMARY | 2024-05-31 17:40 | XMS_ITS | Data Portability ---
Author Organization [facility], Main Office Address [address] [facility] [address] [place] [address] [address] Care [address] Equipment Operator Name Role Phone ABDIEL ORTEGA Child Care Director GRACIELA MILLER Urologist ABDIEL LOZANO [employer] Driver [employer]RBAN PR[employer] Gas Charger HUMBERTO SINGH Php Programmer [phone] RICARDO HUGHES Chiropractor [facility] Physical Therapist DENIS MARCOS Primary Care Provider [phone] Assessment No assessment recorded. Plan of Treatment Reminders Order Date Submit Date Provider Last Modified By Organization Details Last Modified Time Details Appointments None recorded. Lab HbA1c (hemoglob in A1c), blood 2018 019 [employer] [facility] (Centralized Electronic Ordering - All Locations), Patient Can Go To The Location Of Their Choice, [address] 0 09:38:13 BMP, serum or plasma 2018 019 [employer] [facility] (Centralized Electronic Ordering - All Locations), Patient Can Go To The Location Of Their Choice, [address] 0 09:38:13 lipid panel, serum 2018 019 [employer] [facility] (Centralized Electronic Ordering - All Locations), Patient Can Go To The Location Of Their Choice, [address] 0 09:38:13 magnesium , serum or plasma [...] 15:24:52 CMP, serum or plasma 2017 018 [facility] ([facility]ized [facility] Order[facility] - All Locations), Patient Can Go To The Location Of Their Choice, 11:56:02 Referral spine center referral - patient in 2017, MRI showed crowding L2 nerve root on the left, having worsenign sx of sciatic pain, low back pain, leg pains bilateral ly. 2018 isaías [facility], [address] [place] [address], [place], [address], 17:23:40 physical therapist referral - At risk for falling 2017 [facility], [address] [place], [address], 8 16:26:43 urologist referral - pt has not seen urology in 2 years or more and wants to have consultat ion w/ urologist rather than [facility] 2017 018 scott Crane MD, [address], [address], [place], [address], 8 13:35:13 Procedures None recorded. Surgeries None recorded. Imaging XR, lumbar spine - chronic low back pain, worsening s/p fall in february [id number] 019 [facility], [address] [place] [address], [address], 9 10:29:46 XR, sacrum + coccyx - s/p fall in february, hx low back arthritis . pain worsening 2018 019 [facility], [address] [place] [address], [address], 9 10:29:44 Medication Orders clorazepa te dipotassi um 3.75 mg tablet 2017 018 [id number], [address] [place], [address], 8 11:18:58 tamsulosi n 0.4 mg capsule 2017 018 [id number], [address] [place], [address], 8 13:01:14 clorazepa te dipotassi um 3.75 mg tablet 2017 018 [id number], [address] [place], [address], 8 12:05:21 Patient TargetsNo targets recorded. Patient Instructions Encounter Date Encounter Id Patient Instructions Last Modified By Organization Details Last Modified Time 11/13/2017 [id number] anxiety disorder: care instructions [email or web address] Not available 11/13/2017 11:18:44 call or return for worsening or concerns. [email or web address] Not available 11/13/2017 11:13:19 I have reviewed the note and agree with the assessment and plan of care. dolores Not available 11/13/2017 12:41:01 12/18/2017 [id number] preventing falls: care instructions [email or web address] Not available [...] medication. [email or web address] Not available 12/18/2017 13:20:44 06/11/2018 [id number] low back pain: exercises [email or web address] Not available 06/11/2018 13:24:20 call or return for worsening or concerns. [email or web address] Not available 06/11/2018 13:22:08 01/20/2019 [id number] preventing falls: care instructions [email or web address] Not available 01/20/2019 10:20:59 call or return for woraening or concerns. [email or web address] Not available 01/20/2019 10:20:56 Reviewed the risks and benefits of superintendent terminal opiate use, OUD discussed with the patient. Reviewed the risks and benefits of other non-opioid pain therapies. Reviewed caution with driving, fall risk, treatment for constipation. Patient verbalizes understanding of risk and benefits, and of OUD. [email or web address] Not available 01/20/2019 09:46:37 Reason for Referral Urologist Referral for Incom plete emptying of urinary bladder pt has not seen urology in 2 years or more and wants to have consultation w/ urologist rather than [facility] Referring Physician: Ricardo Dhillon, Internal Medicine, Encounter [...] ce of an acute proces s. WSN: [id number] Dictat ed By: Delonte Barrios MD Dictat ed Date/T erlinda: 10:26 a Review ed By: Delonte Barrios MD Signed By: Delonte Barrios MD Signed Date/T erlinda: 10:26 am Transc ribed By: PASTORA Transc ribed Date/T erlinda: 10:24 am Patien t Class: Outpat ient [facility] (Outpt Imaging) [address] [place], [address], 06/15/2018 15:07:23 06/15/19 19 06/14/2018 XR, lumba [...] ce of an acute proces s. WSN: [id number] Dictat ed By: Delonte Barrios MD Dictat ed Date/T erlinda: 10:26 a Review ed By: Delonte Barrios MD Signed By: Delonte Barrios MD Signed Date/T erlinda: 10:26 am Transc ribed By: PASTORA Transc ribed Date/T erlinda: 10:24 am Patien t Class: Outpat ient [facility] (Outpt Imaging) [address] [place], [address], 06/15/2018 15:07:23 Result Notes None recorded. Problems Name Problem SNOMED Code Status Onset Date Resolution Date Notes Provider Name and Address Organization Details Recorded Time Anemia due to chronic blood loss 160765420 Completed 201108/23/2013 RECORDED 10/31/19 12 2:42PM BY NICKY WOODS ON/ADDEN DUM Michelle Ervin abraham [facility] 6 11:38:21 Anxiety state 291296433 Active 2012 Becky rosario [facility] 7 17:00:55 Tobacco user [id number] Completed 201208/23/2013 RECORDED 01/28/20 13 1:17PM BY ALEXANDRE AGUILAR MA, ANNOTATI ON/ADDEN DUM Becky rosario [facility] 7 17:00:35 History of clinical finding in subject [id number] Completed 201209/17/2016 RECORDED 01/28/20 13 1:17PM BY ALEXANDRE AGUILAR MA, ANNOTATI ON/ADDEN DUM Becky rosario [facility] 7 17:01:11 Asthma 537796147 Active 2012 Becky rsoario [facility] 7 17:00:52 Screenin g for malignan t neoplasm of breast Completed 201410/31/2016 Dr. Susy Ortega, negative Becky rosario [facility] 7 13:35:13 Screenin g for malignan t neoplasm of breast Completed 201108/23/2013 RECORDED 10/31/19 12 2:41PM BY JEREL WOODSATI ON/ADDEN DUM Becky rosario, [facility] 7 13:35:13 Chest pain 00071239 Completed 201108/23/2013 RECORDED 10/31/19 12 2:41PM BY JEREL WOODSATI ON/ADDEN DUM Michelle Degutedouard null, [facility] 6 11:38:22 Screenin g for malignan t neoplasm of colon Completed 201208/23/2013 RECORDED 04/30/19 13 2:37PM BY TEA HANDY MA, ANNOTATI ON/ADDEN DUM Michelle Degutedouard null, [facility] 6 11:38:22 Divertic ular disease of colon 218307074 Completed 201108/23/2013 STORY: PT WAS SEEN IN OUR OFFICE 11/30/09 FOR RECTAL BLEEDING AND WAS REFERRED TO GI FOR AN EVALUATI ON. THAT EVENING EVERY TIME THE PT ATE SOMETHIN G SHE WOULD BE GOING TO THE BATHROOM TO HAVE A BM THAT WAS FILLED WITH BLOOD. AFTER A FEW TIMES THE PT TOOK HERSELF TO [facility] TO BE EVALUATE D. THE ONLY SX THAT THE PT FELT WAS BLOATING AND CRAMPING EVERYTIM E SHE ATE. PT HAD TO UNDERGO A COLONOSC OPY WITCH SHOWED THAT THE PT HAD BLEEDING COMING FROM THE ASCENDIN G,DESCEN DING, AND TRANSVER SE COLON. PT WAS LATER TRANSFER RED TO [facility] TO BE WATCHED CLOSELY. PT WAS THEN PLACED ON A LIQUID DIET UNTIL THE TIME WHERE SHE COULD TOLERATE SOLID FOOD WITH OUT PASSING A BM THAT WAS BLOODY. MEDICATI ON HAS BEEN RECONSIL ED WITH THE PT AND SHE WILL F/U WITH MGD 12/21/09 .; RECORDED 10/31/19 12 2:41PM BY JEREL WOODSATI ON/ADDEN DUM Michelle Antoniousha null, [facility] 6 11:38:21 Hemorrha ge of colon 83557048 Completed 201108/23/2013 STORY: STABLE/ STILL ANEMIC; RECORDED 10/31/19 12 2:41PM BY NICKY WOODS ON/ADDEN DUM Michelle rosario [facility] 6 11:38:22 Divertic ulitis of colon 541199295 Active 2011 Becky rosario [facility] 7 17:00:37 Dysuria 60851098 Completed 201108/23/2013 IMPRESSI ON: 3+ LEUKOCYT ES ON UA TODAY, COMPLETE D BACTRIM 2 DAYS AGO, START CIPRO AND SEND CULTURE; RECORDED 10/31/19 12 2:41PM BY NICKY WOODS ON/ADDEN DUM Becky rosario [facility] 7 17:01:13 Gastroes ophageal reflux disease 692640119 Active 2012 Becky rosario [facility] 7 17:00:59 [facility] hyperten julisa 94173085 Active 2012 Becky rosario [facility] 7 17:01:17 Essentia l hyperten julisa 23251751 Completed 201108/23/2013 RECORDED 10/31/19 12 2:41PM BY NICKY WOODS ON/ADDEN DUM Becky rosario [facility] 7 17:01:17 External hemorrho ids 49919907 Active 2012 Becky rosario [facility] 7 17:01:03 Influenz a vaccine needed [id number] 06 Completed 201208/23/2013 RECORDED 04/30/19 13 2:37PM BY TEA HANDY MA, ANNOTATI ON/ADDEN DUM Michelle rosario [facility] 6 11:38:22 Follow-u p encounte r Completed 201208/23/2013 RECORDED 04/30/19 13 2:37PM BY TEA HANDY MA, ANNOTATI ON/ADDEN DUM Michelle Degutis null, [facility] 6 11:38:22 Tobacco user 594221515 Active 2012 Becky rosario, [facility] 7 17:00:35 Adult health examinat ion Completed 201209/17/2016 STORY: COLONOSC OPY DUE SS/TUBUL AR ADENOMA; RECORDED 01/28/20 13 1:58PM BY RICARDO COLE MD, OFFICE VISIT Becky rosario, [facility] 7 17:01:05 Adult health examinat ion Completed 201208/23/2013 RECORDED 04/30/19 13 2:37PM BY TEA HANDY MA, ANNOTATI ON/ADDEN DUM Becky rosario, [facility] 7 17:01:05 Hearing loss 31974642 Active 2012 Becky rosario, [facility] 7 17:00:40 History of Malignan t melanoma 739716829 Active 2013 Becky rosario, [facility] 7 17:00:45 Hypo-osm olality and or hyponatr emia 826386784 Completed 201108/23/2013 RECORDED 10/31/19 12 2:41PM BY NICKY WOODS ON/ADDEN DUM Michelle Degutedouard null, [facility] 6 11:38:21 Impacted cerumen 89944374 Completed 201208/23/2013 RECORDED 01/28/20 13 1:17PM BY ALEXANDRE AGUILAR MA, ANNOTATI ON/ADDEN DUM Becky rosario, [facility] 7 17:00:46 Irritabl e bowel syndrome 72324878 Active 2012 Becky rosario [facility] 7 17:00:31 Renewal of prescrip tion Completed 201208/23/2013 RECORDED 04/30/19 13 2:37PM BY TEA HANDY MA, ANNOTATI ON/ADDEN DUM Michelle Degutis null, [facility] 6 11:38:22 Malignan t melanoma of skin 83639510 Active 2013 Becky rosario, [facility] 7 17:01:28 Active or passive immuniza tion Completed 200908/23/2013 RECORDED 03/01/19 10 9:56AM BY PILLO Masters NP, OFFICE VISIT Michelle rosario [facility] 6 11:38:22 Examinat ion for suspecte d mental disorder Completed 201108/23/2013 RECORDED 10/31/19 12 2:41PM BY NICKY WOODS ON/ADDEN DUM Michelle Degutis null [facility] 6 11:38:22 Pre-surg girish evaluati on Completed 201208/23/2013 IMPRESSI ON: PT IS MEDICALL Y ABLE TO UNDERGO SURGERY, NO ACTIVE ISSUES, IS ABLE TO LAY FLAT AND STILL, EKG NL AND WILL GET LABS; RECORDED 01/28/20 13 1:17PM BY ALEXANDRE AGUILAR MA, NICKY ON/ADDEN DUM Michelle Degutis abraham [facility] 6 11:38:22 Tachycar wesley [id number] Completed 201108/23/2013 RECORDED 10/31/19 12 2:42PM BY NICKY WOODS ON/ADDEN DUM Michelle Degutis null [facility] 6 11:38:22 Retentio n of urine 034307207 Completed 201208/23/2013 RECORDED 04/30/19 13 2:37PM BY TEA HANDY MA, ANNOTATI ON/ADDEN DUM Michelle Degutis abraham [facility] 6 11:38:22 Urinary tract infectio us disease 25258843 Active 2013 Becky rosario [facility] 7 17:01:20 Vaginiti s and vulvovag initis Completed 201108/23/2013 IMPRESSI ON: VAGINAL ITCHING AFTER COMPLETI NG ANTIBIOT ICS; RECORDED 10/31/19 12 2:42PM BY NICKY WOODS ON/ADDEN DUM Michelle Degutis abraham [facility] 6 11:38:22 Impacted cerumen 22561995 Completed 09/17/2016 Becky rosario [facility] 7 17:00:46 Hyponatr emia 81355095 Completed 09/04/2017 Dilshad Hall MD [address] [facility] [address], [place], [address] 8 06:00:03 Anemia due to chronic blood loss 836985446 Completed 201109/15/2013 RECORDED 10/31/19 12 2:42PM BY NICKY WOODS ON/ADDEN DUM Michelle Degutis abraham [facility] 6 11:38:21 Tobacco user 716008739 Completed 201209/15/2013 RECORDED 01/28/20 13 1:17PM BY ALEXANDRE AGUILAR MA, ANNOTATI ON/ADDEN DUM Becky rosario [facility] 7 17:00:35 Chest pain 98310380 Completed 201109/15/2013 RECORDED 10/31/19 12 2:41PM BY NICKY WOODS ON/ADDEN DUM Michelle Degutis abraham [facility] 6 11:38:22 Screenin g for malignan t neoplasm of colon Completed 201209/15/2013 RECORDED 04/30/19 13 2:37PM BY TEA HANDY MA, ANNOTATI ON/ADDEN DUM Michelle Degutis abraham [facility] 6 11:38:22 Divertic ular disease of colon 820506094 Completed 201109/15/2013 STORY: PT WAS SEEN IN OUR OFFICE 11/30/09 FOR RECTAL BLEEDING AND WAS REFERRED TO GI FOR AN EVALUATI ON. THAT EVENING EVERY TIME THE PT ATE SOMETHIN G SHE WOULD BE GOING TO THE BATHROOM TO HAVE A BM THAT WAS FILLED WITH BLOOD. AFTER A FEW TIMES THE PT TOOK HERSELF TO [facility] TO BE EVALUATE D. THE ONLY SX THAT THE PT FELT WAS BLOATING AND CRAMPING EVERYTIM E SHE ATE. PT HAD TO UNDERGO A COLONOSC OPY WITCH SHOWED THAT THE PT HAD BLEEDING COMING FROM THE ASCENDIN G,DESCEN DING, AND TRANSVER SE COLON. PT WAS LATER TRANSFER RED TO [facility] TO BE WATCHED CLOSELY. PT WAS THEN PLACED ON A LIQUID DIET UNTIL THE TIME WHERE SHE COULD TOLERATE SOLID FOOD WITH OUT PASSING A BM THAT WAS BLOODY. MEDICATI ON HAS BEEN RECONSIL ED WITH THE PT AND SHE WILL F/U WITH MGD 12/21/09 .; RECORDED 10/31/19 12 2:41PM BY NICKY WOODS ON/ADDEN TORIE rosario [facility] 6 11:38:21 Hemorrha ge of colon 35594847 Completed 201109/15/2013 STORY: STABLE/ STILL ANEMIC; RECORDED 10/31/19 12 2:41PM BY NICKY WOODS ON/ADDEN TORIE rosario [facility] 6 11:38:22 Dysuria 26424417 Completed 201109/15/2013 IMPRESSI ON: 3+ LEUKOCYT ES ON UA TODAY, COMPLETE D BACTRIM 2 DAYS AGO, START CIPRO AND SEND CULTURE; RECORDED 10/31/19 12 2:41PM BY NICKY WOODS ON/ADDEN DUM Becky rosario [facility] 7 17:01:13 Influenz a vaccine needed [id number] 06 Completed 201209/15/2013 RECORDED 04/30/19 13 2:37PM BY TEA HANDY MA, JERELATI ON/ADDEN DUM Michelle Ervin [facility], [facility] 6 11:38:22 Follow-u p encounte r Completed 201209/15/2013 RECORDED 04/30/19 13 2:37PM BY TEA HANDY MA, ANNOTATI ON/ADDEN DUM Michelle Aziza [facility], [facility] 6 11:38:22 Hypo-osm olality and or hyponatr emia 449658444 Completed 201109/15/2013 RECORDED 10/31/19 12 2:41PM BY NICKY WOODS ON/ADDEN DUM Michelle Aziza [facility], [facility] 6 11:38:21 Impacted cerumen 08025064 Completed 201209/15/2013 RECORDED 01/28/20 13 1:17PM BY ALEXANDRE AGUILAR MA, JERELATI ON/ADDEN DUM Becky Norton [facility], [facility] 7 17:00:46 Renewal of prescrip tion Completed 201209/15/2013 RECORDED 04/30/19 13 2:37PM BY TEA HANDY MA, JERELATI ON/ADDEN DUM Michelle Aziza [facility], [facility] 6 11:38:22 Active or passive immuniza tion Completed 200909/15/2013 RECORDED 03/01/19 10 9:56AM BY PILLO Masters NP, OFFICE VISIT Michelle Aziza [facility], [facility] 6 11:38:22 Examinat ion for [...] MA, NICKY ON/ADDEN DUM Michelle Degutis null, [facility] 6 11:38:22 Tachycar wesley [id number] Completed 201109/15/2013 RECORDED 10/31/19 12 2:42PM BY JEREL WOODSATI ON/ADDEN DUM Michelle Degutis null, [facility] 6 11:38:22 Retentio n of urine 891209721 Completed 201209/15/2013 RECORDED 04/30/19 13 2:37PM BY TEA HANDY MA, NICKY ON/ADDEN DUM Michelle Degutis null, [facility] 6 11:38:22 Vaginiti s and vulvovag initis Completed 201109/15/2013 IMPRESSI ON: VAGINAL ITCHING AFTER COMPLETI NG ANTIBIOT ICS; RECORDED 10/31/19 12 2:42PM BY NICKY WOODS ON/ADDEN DUM Michelle Degutis null, [facility] 6 11:38:22 Anemia due to chronic blood loss 643704484 Completed 201109/16/2013 RECORDED 10/31/19 12 2:42PM BY NICKY WOODS ON/ADDEN DUM Michelle Degutis null, [facility] 6 11:38:21 Tobacco user 665693834 Completed 201209/16/2013 RECORDED 01/28/20 13 1:17PM BY ALEXANDRE AGUILAR MA, NICKY ON/ADDEN DUM Becky Norton [place] null, [facility] 7 17:00:35 Chest pain 03611015 Completed 201109/16/2013 RECORDED 10/31/19 12 2:41PM BY NICKY WOODS ON/ADDEN DUM Michelle Degutis null, [facility] 6 11:38:22 Screenin g for malignan t neoplasm of colon Completed 201209/16/2013 RECORDED 04/30/19 13 2:37PM BY TEA HANDY MA, ANNOTATI ON/ADDEN DUM Michelle rosario, [facility] 6 11:38:22 Divertic ular disease of colon 464756748 Completed 201109/16/2013 STORY: PT WAS SEEN IN OUR OFFICE 11/30/09 FOR RECTAL BLEEDING AND WAS REFERRED TO GI FOR AN EVALUATI ON. THAT EVENING EVERY TIME THE PT ATE SOMETHIN G SHE WOULD BE GOING TO THE BATHROOM TO HAVE A BM THAT WAS FILLED WITH BLOOD. AFTER A FEW TIMES THE PT TOOK HERSELF TO [facility] TO BE EVALUATE D. THE ONLY SX THAT THE PT FELT WAS BLOATING AND CRAMPING EVERYTIM E SHE ATE. PT HAD TO UNDERGO A COLONOSC OPY WITCH SHOWED THAT THE PT HAD BLEEDING COMING FROM THE [place],DESCEN DING, AND TRANSVER SE COLON. PT WAS LATER TRANSFER RED TO [facility] TO BE WATCHED CLOSELY. PT WAS THEN PLACED ON A LIQUID DIET UNTIL THE TIME WHERE SHE COULD TOLERATE SOLID FOOD WITH OUT PASSING A BM THAT WAS BLOODY. MEDICATI ON HAS BEEN RECONSIL ED WITH THE PT AND SHE WILL F/U WITH MGD 12/21/09 .; RECORDED 10/31/19 12 2:41PM BY NICKY WOODS ON/ADDEN DUM Michelle rosario [facility] 6 11:38:21 Hemorrha ge of colon 81454562 Completed 201109/16/2013 STORY: STABLE/ STILL ANEMIC; RECORDED 10/31/19 12 2:41PM BY NICKY WOODS ON/ADDEN TORIE rosario, [facility] 6 11:38:22 Dysuria 53667437 Completed 201109/16/2013 IMPRESSI ON: 3+ LEUKOCYT ES ON UA TODAY, COMPLETE D BACTRIM 2 DAYS AGO, START CIPRO AND SEND CULTURE; RECORDED 10/31/19 12 2:41PM BY NICKY WOODS ON/ADDEN DUM Becky Norton [place] null, [facility] 7 17:01:13 Influenz a vaccine needed [id number] 06 Completed 201209/16/2013 RECORDED 04/30/19 13 2:37PM BY TEA HANDY MA, JERELATI ON/ADDEN DUM Michelle Pacousha rosario, [facility] 6 11:38:22 Follow-u p encounte r Completed 201209/16/2013 RECORDED 04/30/19 13 2:37PM BY TEA HANDY MA, NICKY ON/ADDEN DUM Michelle Pacousha rosario, [facility] 6 11:38:22 Hypo-osm olality and or hyponatr emia 142553868 Completed 201109/16/2013 RECORDED 10/31/19 12 2:41PM BY NICKY WOODS ON/EN DUM Michelle rosario, [facility] 6 11:38:21 Impacted cerumen 72206032 Completed 201209/16/2013 RECORDED 01/28/20 13 1:17PM BY ALEXANDRE AGUILAR MA, NICKY ON/ADDEN TORIE rosario, [facility] 7 17:00:46 Renewal of prescrip tion Completed 201209/16/2013 RECORDED 04/30/19 13 2:37PM BY TEA HANDY MA, NICKY ON/ADDEN DUM Michelle Pacousha rosario, [facility] 6 11:38:22 Active or passive immuniza tion Completed 200909/16/2013 RECORDED 03/01/19 10 9:56AM BY PILLO Masters NP, OFFICE VISIT Michelle rosario, [facility] 6 11:38:22 Examinat ion for suspecte d mental disorder Completed 201109/16/2013 RECORDED 10/31/19 12 2:41PM BY NICKY WOODS ON/ADDEN TORIE Ervin null, [facility] 6 11:38:22 Pre-surg girish hartmanati on Completed 201209/16/2013 IMPRESSI ON: PT IS MEDICALL Y ABLE TO UNDERGO SURGERY, NO ACTIVE ISSUES, IS ABLE TO LAY FLAT AND STILL, EKG NL AND WILL GET LABS; RECORDED 01/28/20 13 1:17PM BY ALEXANDRE AGUILAR MA, ANNOTATI ON/[facility] Degutis null, [facility] 6 11:38:22 Tachycar wesley [id number] Completed 201109/16/2013 RECORDED 10/31/19 12 2:42PM BY NICKY WOODS ON/[facility] Degutis null, [facility] 6 11:38:22 Retentio n of urine 100347207 Completed 201209/16/2013 RECORDED 04/30/19 13 2:37PM BY TEA HANDY MA, ANNOTATI ON/[facility] Degutis null [facility] 6 11:38:22 Vaginiti s and vulvovag initis Completed 201109/16/2013 IMPRESSI ON: VAGINAL ITCHING AFTER COMPLETI NG ANTIBIOT ICS; RECORDED 10/31/19 12 2:42PM BY NICKY WOODS ON/[facility] Degutis null [facility] 6 11:38:22 Dermatit is Completed 09/17/2016 Becky rosario [facility] 7 17:00:48 Dysuria 39897578 Completed 09/17/2016 Becky rosario [facility] 7 17:01:13 Insomnia 736471839 Active Michelle Antonioutedouard null [facility] 6 11:38:21 Advance directiv e discusse d with patient 211771711 Completed 09/17/2016 Becky rosario [facility] 7 17:01:07 Polyp of colon 14262159 Active Michelle Aziza abraham [facility] 6 11:38:21 Chronic low back pain 333143044 Active 2018 Rebeca rosario [facility] 9 14:22:51 Problem Notes None recorded. Procedures Surgical History Date Name Laterality Status Provider Name and Address Organization Details Recorded Time 01/21/20 19 Mini-Cog Test completed Leila Julien MA [facility] 01/20/2019 09:52:44 12/30/19 18 Most Recent Mammogram completed Leila Julien MA [facility] 01/20/2019 09:47:42 12/19/19 18 Mini-Cog Test completed Naheed Veliz [facility] 12/18/2017 13:13:25 12/02/19 17 Fall Risk Assessment completed Becky Norton MA [facility] 12/01/2016 13:22:35 12/02/19 17 Mini-Cog Test completed Becky Norton [facility] 12/01/2016 13:23:31 11/29/19 17 Mammogram both breasts completed Kimmy Yañez [facility] 12/09/2016 14:44:18 10/17/19 17 Date of Last Colonoscopy completed Paola Kendall [facility] 12/09/2016 16:54:35 10/17/19 17 Colonoscopy completed Becky Norton MA [facility] 10/24/2016 11:43:36 03/23/19 16 Fall Risk Assessment completed Becky Norton MA [facility] 03/23/2015 13:55:01 03/23/19 16 Mini-Cog Test completed Becky Norton [facility] 03/23/2015 14:02:26 03/23/19 16 Advanced Care Planning completed Becky Norton MA [facility] 03/23/2015 13:41:44 08/19/19 15 Date of Last Pap Smear completed Michelle Ervin [facility] 03/28/2015 11:40:33 02/23/19 11 Most Recent Bone Density completed Becky Norton [place] [facility] 03/23/2015 14:07:39 02/09/19 08 Appendectomy completed [facility] 03/02/2014 10:46:37 Imaging Results Imaging Date Name Status LastModified by Organization Details LastModified Time 05/15/2017 electrocardiogram completed Infor mation not available 05/15/2017 12:36:53 06/14/2018 XR, sacrum + coccyx, 2 or more view active [facility] (Outpt Imaging) [address] [place], [address], 06/15/2018 15:07:23 06/14/2018 XR, lumbar spine active [facility] (Outpt Imaging) [address] [place], [address], 06/15/2018 15:07:23 Procedure Notes None recorded. Medical Equipment None Reported. Allergies Allergen ID Allergen Name Allergen Category Reaction Reaction Severity Criticality Documentation Date Start Date Code Code System Note Provider Name and Address Organization Details Recorded Time 2935 latex environme nt,medica tion rash Not available Not available 08/23/20132012 98707 91 RxNorm Becky Norton [place] [facility] 7 17:00:18 Medications Name [...] Updated DateTime 8 154.94 cm 31.4 kg/m2 89869.4 3 g 98.7 [degF] 96 % 96 % 89 /min 118 mm[Hg] 76 mm[Hg] Becky Norton [facility] 8 11:28:28 Date Recorded Body height Body mass index (BMI) Body weight Heart rate Oxygen saturation Oxygen saturation in Arterial blood by Pulse oximetry Body temperature Systolic blood pressure Diastolic blood pressure Provider Name and Address Organization Details Last Updated DateTime 8 154.94 cm 30.8 kg/m2 34148.5 6 g 94 /min 97 % 97 % 97.5 [degF] 136 mm[Hg] 74 mm[Hg] Jovan Medina [facility] 8 10:41:30 Date Recorded Body height Body mass index (BMI) Body weight Body temperature Heart rate Oxygen saturation Oxygen saturation in Arterial blood by Pulse oximetry Systolic blood pressure Diastolic blood pressure Provider Name and Address Organization Details Last Updated DateTime 8 154.94 cm 30.5 kg/m2 49999.4 7 g 97.2 [degF] 86 /min 96 % 96 % 123 mm[Hg] 72 mm[Hg] Naheed Veliz [facility] [place] 8 12:57:56 Date Recorded Body height Body mass index (BMI) Body weight Heart rate Oxygen saturation Oxygen saturation in Arterial blood by Pulse oximetry Body temperature Systolic blood pressure Diastolic blood pressure Provider Name and Address Organization Details Last Updated DateTime 9 154.94 cm 30.2 kg/m2 25010.7 8 g 92 /min 96 % 96 % 98.4 [degF] 124 mm[Hg] 78 mm[Hg] Ruby Mackey [facility] [place] 9 12:59:19 Date Recorded Body height Body mass index (BMI) Body weight Oxygen saturation Oxygen saturation in Arterial blood by Pulse oximetry Heart rate Body temperature Systolic blood pressure Diastolic blood pressure Provider Name and Address Organization Details Last Updated DateTime 9 154.94 cm 30.7 kg/m2 19289.0 6 g 96 % 96 % 81 /min 98.1 [degF] 119 mm[Hg] 67 mm[Hg] Leila Julien MA [facility] 9 09:56:35 Social History Question Answer Notes LastModified by Organizat ion Details LastModified Time Tobacco Smoking Status Former Smoker ELLIOTT Plascencia, [facility] 09/08/2013 11:26:06 Do You Have [...] E-cigarettes Or Vape? 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 Never Used Smokeless Tobacco [email or web address] Information not available 01/20/2019 How Much Tobacco Do You Smoke? 1 PPW [email or web address] Information not available 01/20/2019 General Stress Level Low Information not available 03/02/2014 Do You Use Sunscreen Routinely? Yes Information not available 03/23/2015 How Many Years Have You Smoked Tobacco? 15 Information not available 12/18/2017 Sex: Unknown Functional Status Question Answer Note LastModified by [employer] ion Details LastModified Time Are you able [...] conjugate PCV 13 5 completed Not Available [facility] 02/26/2019 02:21:36 Influenza, split virus, quadrivalent, PF 5 completed Becky Norton [facility] 03/23/2015 14:06:48 Influenza, high-dose, trivalent, PF 7 completed Not Available [facility] 02/26/2019 02:22:21 Novel [id number], all formulations 0 completed Not Available [facility] 08/23/2013 13:38:52 pneumococcal polysaccharide PPV23 0 completed Not Available [facility] 08/23/2013 13:38:52 Influenza, split virus, trivalent, preservative 0 completed Not Available [facility] 08/23/2013 13:38:52 Influenza, split virus, trivalent, preservative 1 completed Not Available [facility] 08/23/2013 13:38:52 Influenza, split virus, trivalent, preservative 2 completed Not Available [facility] 08/23/2013 13:38:52 Influenza, split virus, trivalent, preservative 3 completed Not Available [facility] 08/23/2013 13:38:52 Influenza, high-dose, trivalent, PF 8 completed Not Available [facility] 02/26/2019 02:22:14 Influenza, high-dose, trivalent, PF 9 completed Not Available [facility] 02/26/2019 02:22:09 Past Encounters Encounter ID Performer Location Encounter Start Date Encounter Closed Date Diagnosis/Indication Diagnosis SNOMED-CT Code Diagnosis ICD10 Code Diagnosis Note [id number] Tea Handy Main Office [address] [facility] [address] [place], [place] [address] 09/08/2013 11:14:56 09/08/2013 11:58:13 Essential hypertension 84068859 well controlled Asthma 835342942 followe d by pulm, well controlled on symbicort Anxiety state 060532511 Impacted cerumen 30192204 successful ly removed with ear lavage [id number] [facility] [address] [facility] [place] [address] 03/01/2009 00:00:00 [id number] [facility] erce [address] [facility] [place] [address] 03/29/2009 00:00:00 [id number] [facility] [address] [facility] [place] [address] 09/10/2009 00:00:00 [id number] auto[facility] erce [address] [facility] [place] [address] 11/13/2009 00:00:00 [id number] [facility] erce [address] [facility] [place] [address] 11/30/2009 00:00:00 [id number] [facility] er[facility] [address] [facility] [place] [address] 12/21/2009 00:00:00 [id number] [facility] [address] [facility] [place] [address] 02/11/2010 00:00:00 [id number] [facility] erce [address] [facility] [place] [address] 05/17/2010 00:00:00 [id number] [facility] erce [address] [facility] [place] [address] 08/23/2010 00:00:00 [id number] [facility] erce [address] [facility] [place] [address] 09/04/2010 00:00:00 [id number] auto[facility] erce [address] [facility] [place] [address] 11/29/2010 00:00:00 [id number] auto[facility] erce [address] [facility] [place], [place] [address] 01/10/2011 00:00:00 [id number] [facility] erce [address] [facility] [place] [address] 05/02/2011 00:00:00 [id number] [facility] erce [address] [facility] [place] [address] 10/31/2011 00:00:00 [id number] [facility] erce [address] [facility] [place] [address] 04/29/2012 00:00:00 [id number] auto[facility] erce [address] [facility] [place] [address] 07/15/2012 00:00:00 [id number] [facility] erce [address] [facility] [place] [address] 01/27/2013 00:00:00 [id number] [facility] Main Office [address] [address] [place] [address] 09/26/2013 13:41:44 09/26/2013 14:55:33 Dermatitis 086542080 candidal dermatitis [id number] [facility] Main Office [facility] [address] [place] [address] 03/02/2014 12:39:53 03/02/2014 13:42:38 Essential hypertension 14136499 Hyponatremia 57750242 pt to see Dr Pride regularly/ pt aware that she needs to stop using clorazepat e / see psych referral Anxiety state 079210612 Dysuria 01038608 [id number] Becky Norton [place] Main Office [address] [address] [place] [address] 04/21/2014 14:46:19 04/21/2014 15:48:33 Essential hypertension 38566298 both meds helpful/ Diltiazem and lisinopril Gastroesop hageal reflux disease 058384786 pt on PPI Anxiety state 319609240 Asthma 207597703 [id number] Ricardo medellin Main Office [address] [address] [place] [address] 03/23/2015 13:27:48 03/23/2015 14:47:01 Adult health examination 104106779 [facility] 927803184 Z91.81 Advance di rective discussed with patient 251416886 Z71.89 pt will have her brother as health care proxy Essential hypertension 08875880 I10 both meds helpful/ Diltiazem and lisinopril Polyp of colon 33215500 K63.5 pt due for colonoscop y 2016 /tubular adenoma/We iss Asthma 353568311 J45.90 9 Anxiety state 962855032 F41.1 [id number] Ricardo medellin Main Office [address] [address] [place] [address] 10/05/2015 12:46:12 10/05/2015 13:40:50 Essential hypertension 62400436 I10 both meds helpful/ Diltiazem and lisinopril Asthma 118256519 J45.90 9 urged pt to get flu shot soon. Anxiety state 669528843 F41.1 [id number] Ricardo medellin Main Office [address] [address] [place] [address] 06/19/2016 12:55:50 06/19/2016 14:13:50 Fatigue 18683497 R53.83 Abnormal weight loss 267 050958 R63.4 Diarrhea 19731333 R19.7 Nausea 664559583 R11.0 d/w pt to elevate HOB/ cont PPI Impaired f asting glycemia 149191073 R73.01 [id number] Ricardo medellin Main Office [address] [address] [place] [address] 10/23/2016 14:30:06 10/23/2016 15:27:24 [id number] Ricardo medellin Main Office [address] [address] [place] [address] 10/31/2016 13:21:48 10/31/2016 14:41:18 Lumbosacral radiculitis 15290888 M54.17 Influenza vaccine needed 3212693741 106 Z23 [id number] Ricardo Carversusana medellin Main Office [address] [address] [place] [address] 12/01/2016 13:04:53 12/01/2016 14:09:38 Adult health examination 866884704 Z00.00 Essential hypertension 95878656 I10 both meds helpful/ Diltiazem and lisinopril Anxiety state 649662236 F41.1 [id number] Ricardo Carversusana medellin Main Office [address] [address] [place] [address] 05/15/2017 11:16:16 05/15/2017 12:12:51 Anxiety state 631919496 F41.1 Essential hypertension 10457104 I10 both meds helpful/ Diltiazem and lisinopril Incomplete emptying of urinary bladder 218208141 R39.14 [id number] Maryanne fernandes Main Office [address] [address] [place] [address] 11/13/2017 10:36:20 11/13/2017 11:18:17 Anxiety state 850640054 F41.1 has been on med for 20+ years, she is taking 3.75mg daily, will try to cut the dose in half if possible. f/u in 1 month for wellness visit. Influenza vaccine needed 8406057267 106 Z23 Gastroesop hageal reflux disease 965489457 K21.9 Essential hypertension 90884592 I10 well controlled , continue meds as directed. [id number] Ramon Callahan MD Main Office [address] [address] [place] [address] 12/18/2017 12:40:39 12/18/2017 13:46:58 Adult health examination 816040554 Z00.00 [facility], she will call [employer] for appt Varicella vaccination 68 856238 Z23 Asthma 176060729 J45.90 9 Essential hypertension 26516095 I10 well controlled , continue meds as directed. Family his tory of Hypercholesterolemia 766924388 Z83.49 Anxiety state 162234177 F41.1 has been on med for 20+ years, she is taking 3.75mg daily, will try to cut the dose in half if possible. f/u in 1 month for wellness visit. [id number] Denis Marcos [facility] Main Office [address] [facility] [address] [place] [address] 06/11/2018 12:42:51 06/11/2018 13:40:40 Low back pain 548135808 M54.5 Patient with chronic low back pain, in PT, seeing chiropract or, but wondering if she should be seeing someone else. Will check XR and refer back to [facility], she has seen them for this in the past. continue sx treatment, ibuprofen as needed. Cramp in lower limb 4499 99495 R25.2 Essential hypertension 99739419 I10 well controlled , continue meds as directed. Fatigue 81107262 R53.83 [id number] Denis Marcos [facility] Main Office [address] [facility] [address] [place] [address] 01/20/2019 09:41:15 01/20/2019 10:33:29 Adult health examination 987270950 Z00.00 hm UTD, she has mammo scheduled, needs to call [employer]. Influenza vaccine needed 0084311324 106 Z23 Impaired f asting glycemia 493760997 R73.01 in June, sugar 125 and she believes she was fasting Hyperlipidemia 60827211 E78.5 Health Concerns Section Related Observation LastModified by Organization Detai ls LastModified Time None Recorded Concern Status LastModified by Organization Details LastModified Time None Recorded Advance Directives Directive Y: Payers Encounter Date Sequence Insurance Name Policy Number Policy Menendez Covered Member ID Menendez Member ID Guarantor Name 05/15/2017 2 [place] [id number] Noris E Oparowski [id number] Noris E Ameya 05/15/2017 1 [place] [employer] Noris E Oparowski [id number] Noris E Isidroki 11/13/2017 2 [place] [id number] Noris E Oparowski [id number] Noris E Ameya 11/13/2017 1 [place] [place] Noris E Oparowski [id number] 06 [id number] Noris E Oparowski 12/18/2017 2 [place] [id number] Noris E Oparowski [id number] Noris E Oparowski 12/18/2017 1 [place] Noris E Oparowski [id number] 06 [id number] Noris E Oparowski 06/11/2018 2 [facility] [id number] Noris E Oparowski [id number] Noris E Oparowski 06/11/2018 1 [place] [place] Noris E Oparowski [id number] 06 [id number] Noris E Oparowski 01/20/2019 2 [facility] [id number] Noris E Oparowski [id number] Noris E Oparowski 01/20/2019 1 [place] Noris E Oparowski [id number] 06 [id number] Noris E Oparowski Notes Date Note Type Note Provider Name and Address Organization Details Recorded Time 05/15/2017 text/html Anxiety/Depressi onRepo rted bypatient.Quality:incr eased anxiety; pt reports that sthe plans to return to her pschologist Dr Valdes this year Severity:able to maintain relationships Associated Symptoms:no significant weight gain; mood good; 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 , > 20 [...] fever;incomplete emptying of bladder Ricardo D'Anthony null, [facility] 05/15/2017 12:16:47 11/13/2017 text/html Anxiety/Depressi onRepo rted bypatient.Quality:incr eased anxiety; stress, car trouble Severity:able to maintain relationships Context:major life stressors;family problems Associated Symptoms:no significant weight gain;high irritability;hostility ;anxiety;hypersensitiv ity;anxiety with muscle tension; pt has shelter hx of benzo use , > 20 yearsNotes:+ hx nausea and diarrhea, panic attacks etc Maryanne KhanSofiya rosario [facility] 11/13/2017 12:41:13 12/18/2017 text/html Medicare [...] working on it) Ramon Callahan MD [address] [address], [place], [address], [facility] 12/19/2017 16:52:49 06/11/2018 text/html Generic HPI TemplateReported [...] strengthen legs. DR saw Dr. Miller at [facility]. Was discharged in 2017 due to improvement with PT. 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 Since the fall her back pain is worse. NICOLÁS Fay [address] [address], [place], [address], [facility] 06/11/2018 13:40:34 01/20/2019 text/html Medicare Annual Wellness [...] states she found a new PCP in [place] but cannot be seen until May. Denis Marcos [facility] [address] [address], [place], [address], [facility] 01/20/2019 10:57:40 OBGyn Episode No OBEpisode recorded.
== END 2024-05-31 15:54 | disposition home or self-care (01) ==
LOC: HO.ACS 14:47
PROVIDERS: PCP Family Medicine; Visit Provider Internal Medicine Medical Oncology
DX: Z79.01 Long term (current) use of anticoagulants (principal)

== ENCOUNTER → 2024-05-31 14:47 | Outpatient (BNVA) | payer MEDICARE, MEDICAID, SELFPAY | PROVIDERS: PCP Family Medicine; Visit Provider Internal Medicine Medical Oncology | DX: I26.94 Multiple subsegmental thrombotic pulmonary emboli without acute cor pulmonale (principal); Z86.718 Personal history of other venous thrombosis and embolism; Z79.01 Long term (current) use of anticoagulants; Z51.81 Encounter for therapeutic drug level monitoring | CPT/HCPCS: 85610; 99211 ==

== ENCOUNTER → 2024-06-03 11:51 | Outpatient (BNVA) | payer MEDICARE, MEDICAID, SELFPAY | PROVIDERS: PCP Family Medicine; Visit Provider Internal Medicine Medical Oncology | DX: Z13.89 Encounter for screening for other disorder (principal) ==

== ENCOUNTER 2024-06-10 11:20 | Outpatient (AMB) | payer MEDICARE, MEDICAID, SELFPAY ==
[2024-06-10 11:30] LABS: Prothrombin Time Whole Bld POC 21.5 sec (11.1-13.5); ~PT, ~INR - Anti Coag Clinic 1.8 (0.9-1.1)
--- NOTE | 2024-06-10 11:31 | MHC.OFFVISCO ---
Intake Intake Visit Reasons: Anticoagulation Allergies Seasonal Allergies Allergy (Mild, Verified 06/10/24 11:25) runny nose latex Allergy (Verified 06/10/24 11:25) rash Medication List - Last Reconciled 06/10/24 by Mirella Cooley RN albuterol sulfate 90 mcg/actuation 2 puffs inhalation Q8H PRN cetirizine (Zyrtec) 10 mg PO DAILY PRN cholecalciferol (vitamin D3) 50 mcg PO DAILY citalopram 20 mg PO DAILY 90 days clonazepam 0.5 mg PO BID PRN diltiazem HCl CD 120 mg PO DAILY 90 days fluticasone propionate 50 mcg/actuation (Flonase Allergy Relief) 1 spray intranasal Q12H 30 days gabapentin 300 mg PO BID losartan 12.5 mg (1/2 x 25 mg) PO DAILY 90 days mometasone-formoterol 200-5 mcg/actuation (Dulera) 2 puffs inhalation Q12H 30 days omeprazole 20 mg PO DAILY tamsulosin 0.4 mg PO BEDTIME 90 days warfarin 2 mg See Protocol PO DAILY 30 days Nursing Note INR: 1.8 out of therapeutic range of 2-3 Pt s/p MOHS procedure on nose. 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 This INR is the first done after holding for the procedure. Medications and supplements reviewed No changes in health, diet, medications, or supplements, Denies any signs and symptoms of bleeding or bruising or clotting. 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 Illness/Depression: Yes (anxiety ) Coding Level of Care Code Est Patient Level 2 Diagnoses Current use of anticoagulant therapy Z79.01 Comment s/p procedure with hold of warfarin. restarted warfarin. dose boosted. Assessment & Plan Assessment & Plan (1) Current use of anticoagulant therapy: Code(s): Z79.01 - manager intermediate (current) use of anticoagulants Category: Medical
--- OUTSIDE RECORDS SUMMARY | 2024-06-10 12:20 | XMS_ITS | Data Portability ---
Author Organization [facility], Main Office Address [address] [place] [address] Care Team Providers Care Cnc Router Operator Name Role Phone ABDIEL ORTEGA Associate Professor Of Mathematics GRACIELA MILLER Urologist [phone] ABDIEL LOZANO Author'S Agent [phone] URBAN PRIDE Title Examiner HUMBERTO SINGH Roll Mechanic RICARDO HUGHES Chiropractor [facility] Physical Therapist DENIS MARCOS Primary Care Provider Assessment No assessment recorded. Plan of Treatment Reminders Order Date Submit Date Provider Last Modified By Organization Details Last Modified Time Details Appointments None recorded. Lab HbA1c (hemoglob in A1c), blood 2018 019 [place] [employer] [facility] (Centralized Electronic Ordering - All Locations), Patient Can Go To The Location Of Their Choice, [address] 0 09:38:13 BMP, serum or plasma 2018 019 [employer] [facility] (Centralized Electronic Ordering - All Locations), Patient Can Go To The Location Of Their Choice, [address] 0 09:38:13 lipid panel, serum 2018 019 [employer] [facility] (Centralized Electronic Ordering - All Locations), Patient Can Go To The Location Of Their Choice, [address] 0 09:38:13 magnesium , serum or plasma [...] CMP, serum or plasma 2017 [facility] - All Locations), Patient Can Go To The Location Of Their Choice, 11:56:02 Referral spine center referral - patient in 2017, MRI showed crowding L2 nerve root on the left, having worsenign sx of sciatic pain, low back pain, leg pains bilateral ly. 2018 isaías [facility], [address] [place] [address], [place], [address], 17:23:40 physical therapist referral - At risk for falling 2017 [facility], [address] [place], [address], 8 16:26:43 urologist referral - pt has not seen urology in 2 years or more and wants to have consultat ion w/ urologist rather than LACE INSPECTOR 2017 018 scott Crane MD, [address], [address], [place], [address], 8 13:35:13 Procedures None recorded. Surgeries None recorded. Imaging XR, lumbar spine - chronic low back pain, worsening s/p fall in february [id number] 019 [facility], [address] [place] [address], [address], 9 10:29:46 XR, sacrum + coccyx - s/p fall in february, hx low back arthritis . pain worsening 2018 019 [facility], [address] [place] [address], [address], 9 10:29:44 Medication Orders clorazepa te dipotassi um 3.75 mg tablet 2017 018 INTERFACE [id number], [address] [place], [address], 8 11:18:58 tamsulosi n 0.4 mg capsule 2017 018 [id number], [address] [place], [address], 8 13:01:14 clorazepa te dipotassi um 3.75 mg tablet 2017 018 INTERFACE [id number], [address] [place], [address], 8 12:05:21 Patient TargetsNo targets recorded. Patient Instructions Encounter Date Encounter Id Patient Instructions Last Modified By Organization Details Last Modified Time 11/13/2017 [id number] anxiety disorder: care instructions [email or web address] Not available 11/13/2017 11:18:44 call or return for worsening or concerns. [email or web address] Not available 11/13/2017 11:13:19 I have reviewed the note and agree with the assessment and plan of care. dolores Not available 11/13/2017 12:41:01 12/18/2017 [id number] preventing falls: care instructions [email or web address] Not available [...] medication. [email or web address] Not available 12/18/2017 13:20:44 06/11/2018 [id number] low back pain: exercises [email or web address] Not available 06/11/2018 13:24:20 call or return for worsening or concerns. [email or web address] Not available 06/11/2018 13:22:08 01/20/2019 [id number] preventing falls: care instructions [email or web address] Not available 01/20/2019 10:20:59 call or return for woraening or concerns. [email or web address] Not available 01/20/2019 10:20:56 Reviewed the risks and benefits of tank terminal gauger opiate use, OUD discussed with the patient. Reviewed the risks and benefits of other non-opioid pain therapies. Reviewed caution with driving, fall risk, treatment for constipation. Patient verbalizes understanding of risk and benefits, and of OUD. [email or web address] Not available 01/20/2019 09:46:37 Reason for Referral Urologist Referral for Incom plete emptying of urinary bladder pt has not seen urology in 2 years or more and wants to have consultation w/ urologist rather than LACE INSPECTOR Referring Physician: Ricardo Dhillon, Internal Medicine, Encounter [...] ce of an acute proces s. WSN: [id number] Dictat ed By: Delonte Barrios MD Dictat ed Date/T erlinda: 10:26 a Review ed By: Delonte Barrios MD Signed By: Delonte Barrios MD Signed Date/T erlinda: 10:26 am Transc ribed By: PASTORA Transc ribed Date/T erlinda: 10:24 am Patien t Class: Outpat ient [facility] [address] [place], [address], 06/15/2018 15:07:23 06/15/19 19 06/14/2018 XR, lumba [...] ce of an acute proces s. WSN: [id number] Dictat ed By: Delonte Barrios MD Dictat ed Date/T erlinda: 10:26 a Review ed By: Delonte Barrios MD Signed By: Delonte Barrios MD Signed Date/T erlinda: 10:26 am Transc ribed By: PASTORA Transc ribed Date/T erlinda: 10:24 am Patien t Class: Outpat ient [facility] ([facility]) [address] [place], [address], 06/15/2018 15:07:23 Result Notes None recorded. Problems Name Problem SNOMED Code Status Onset Date Resolution Date Notes Provider Name and Address Organization Details Recorded Time Anemia due to chronic blood loss 786330777 Completed 201108/23/2013 RECORDED 10/31/19 12 2:42PM BY NICKY WOODS ON/ADDEN DUM Michelle Ervin abraham [facility] 6 11:38:21 Anxiety state 263225767 Active 2012 Becky rosario [facility] 7 17:00:55 Tobacco user [id number] Completed 201208/23/2013 RECORDED 01/28/20 13 1:17PM BY ALEXANDRE AGUILAR MA, ANNOTATI ON/ADDEN DUM [facility] 7 17:00:35 History of clinical finding in subject [id number] Completed 201209/17/2016 RECORDED 01/28/20 13 1:17PM BY ALEXANDRE AGUILAR MA, ANNOTATI ON/ADDEN DUM Becky [facility] 7 17:01:11 Asthma 833140780 Active 2012 [facility]ario [facility] 7 17:00:52 Screenin g for malignan t neoplasm of breast Completed 201410/31/2016 Dr. Susy Ortega, negative Becky rosario [facility] 7 13:35:13 Screenin g for malignan t neoplasm of breast Completed 201108/23/2013 RECORDED 10/31/19 12 2:41PM BY JEREL WOODSATI ON/ADDEN DUM Becky rosario, [facility] 7 13:35:13 Chest pain 28331925 Completed 201108/23/2013 RECORDED 10/31/19 12 2:41PM BY JEREL WOODSATI ON/ADDEN DUM Mihcelle Degutedouard null, [facility] 6 11:38:22 Screenin g for malignan t neoplasm of colon Completed 201208/23/2013 RECORDED 04/30/19 13 2:37PM BY TEA HANDY MA, ANNOTATI ON/ADDEN DUM Michelle Degutedouard null, [facility] 6 11:38:22 Divertic ular disease of colon 964139511 Completed 201108/23/2013 STORY: PT WAS SEEN IN OUR OFFICE 11/30/09 FOR RECTAL BLEEDING AND WAS REFERRED TO GI FOR AN EVALUATI ON. THAT EVENING EVERY TIME THE PT ATE SOMETHIN G SHE WOULD BE GOING TO THE BATHROOM TO HAVE A BM THAT WAS FILLED WITH BLOOD. AFTER A FEW TIMES THE PT TOOK HERSELF TO [facility] TO BE EVALUATE D. THE ONLY SX THAT THE PT FELT WAS BLOATING AND CRAMPING EVERYTIM E SHE ATE. PT HAD TO UNDERGO A COLONOSC OPY WITCH SHOWED THAT THE PT HAD BLEEDING COMING FROM THE ASCENDIN G,DESCEN DING, AND TRANSVER SE COLON. PT WAS LATER TRANSFER RED TO [facility] TO BE WATCHED CLOSELY. PT WAS THEN PLACED ON A LIQUID DIET UNTIL THE TIME WHERE SHE COULD TOLERATE SOLID FOOD WITH OUT PASSING A BM THAT WAS BLOODY. MEDICATI ON HAS BEEN RECONSIL ED WITH THE PT AND SHE WILL F/U WITH MGD 12/21/09 .; RECORDED 10/31/19 12 2:41PM BY JEREL WOODSATI ON/ADDEN DUM Michelle Antoniousha null, [facility] 6 11:38:21 Hemorrha ge of colon 30588840 Completed 201108/23/2013 STORY: STABLE/ STILL ANEMIC; RECORDED 10/31/19 12 2:41PM BY NICKY WOODS ON/ADDEN DUM Michelle rosario [facility] 6 11:38:22 Divertic ulitis of colon 046253819 Active 2011 Becky rosario [facility] 7 17:00:37 Dysuria 81502331 Completed 201108/23/2013 IMPRESSI ON: 3+ LEUKOCYT ES ON UA TODAY, COMPLETE D BACTRIM 2 DAYS AGO, START CIPRO AND SEND CULTURE; RECORDED 10/31/19 12 2:41PM BY NICKY WOODS ON/ADDEN DUM Becky rosario [facility] 7 17:01:13 Gastroes ophageal reflux disease 918582711 Active 2012 Becky rosario [facility] 7 17:00:59 [facility] l hyperten julisa 02947930 Active 2012 Becky rosario [facility] 7 17:01:17 Essentia l hyperten julisa 39081896 Completed 201108/23/2013 RECORDED 10/31/19 12 2:41PM BY NICKY WOODS ON/ADDEN DUM Becky rosario [facility] 7 17:01:17 External hemorrho ids 19490481 Active 2012 Becky rosario [facility] 7 17:01:03 Influenz a vaccine needed [id number] 06 Completed 201208/23/2013 RECORDED 04/30/19 13 2:37PM BY TEA HANDY MA, ANNOTATI ON/ADDEN DUM Michelle rosario [facility] 6 11:38:22 Follow-u p encounte r Completed 201208/23/2013 RECORDED 04/30/19 13 2:37PM BY TEA HANDY MA, ANNOTATI ON/ADDEN DUM Michelle Degutis null, [facility] 6 11:38:22 Tobacco user 236363249 Active 2012 Becky rosario, [facility] 7 17:00:35 Adult health examinat ion Completed 201209/17/2016 STORY: COLONOSC OPY DUE SS/TUBUL AR ADENOMA; RECORDED 01/28/20 13 1:58PM BY RICARDO COLE MD, OFFICE VISIT Becky rosario, [facility] 7 17:01:05 Adult health examinat ion Completed 201208/23/2013 RECORDED 04/30/19 13 2:37PM BY TEA HANDY MA, ANNOTATI ON/ADDEN DUM Becky rosario, [facility] 7 17:01:05 Hearing loss 78999772 Active 2012 Becky rosario, [facility] 7 17:00:40 History of Malignan t melanoma 055376313 Active 2013 Becky rosario, [facility] 7 17:00:45 Hypo-osm olality and or hyponatr emia 593067463 Completed 201108/23/2013 RECORDED 10/31/19 12 2:41PM BY NICKY WOODS ON/ADDEN DUM Michelle Degutedouard null, [facility] 6 11:38:21 Impacted cerumen 07246425 Completed 201208/23/2013 RECORDED 01/28/20 13 1:17PM BY ALEXANDRE AGUILAR MA, ANNOTATI ON/ADDEN DUM Becky rosario, [facility] 7 17:00:46 Irritabl e bowel syndrome 39614177 Active 2012 Becky rosario [facility] 7 17:00:31 Renewal of prescrip tion Completed 201208/23/2013 RECORDED 04/30/19 13 2:37PM BY TEA HANDY MA, ANNOTATI ON/ADDEN DUM Michelle Degutis null, [facility] 6 11:38:22 Malignan t melanoma of skin 20596557 Active 2013 Becky rosario, [facility] 7 17:01:28 Active or passive immuniza tion Completed 200908/23/2013 RECORDED 03/01/19 10 9:56AM BY PILLO Masters NP, OFFICE VISIT Michelle rosario [facility] 6 11:38:22 Examinat ion for suspecte d mental disorder Completed 201108/23/2013 RECORDED 10/31/19 12 2:41PM BY NICKY WOODS ON/ADDEN DUM Michelle Degutis null [facility] 6 11:38:22 Pre-surg girish evaluati on Completed 201208/23/2013 IMPRESSI ON: PT IS MEDICALL Y ABLE TO UNDERGO SURGERY, NO ACTIVE ISSUES, IS ABLE TO LAY FLAT AND STILL, EKG NL AND WILL GET LABS; RECORDED 01/28/20 13 1:17PM BY ALEXANDRE AGUILAR MA, NICKY ON/ADDEN DUM Michelle Degutis abraham [facility] 6 11:38:22 Tachycar wesley [id number] Completed 201108/23/2013 RECORDED 10/31/19 12 2:42PM BY NICKY WOODS ON/ADDEN DUM Michelle Degutis null [facility] 6 11:38:22 Retentio n of urine 509743561 Completed 201208/23/2013 RECORDED 04/30/19 13 2:37PM BY TEA HANDY MA, ANNOTATI ON/ADDEN DUM Michelle Degutis abraham [facility] 6 11:38:22 Urinary tract infectio us disease 85926469 Active 2013 Becky rosario [facility] 7 17:01:20 Vaginiti s and vulvovag initis Completed 201108/23/2013 IMPRESSI ON: VAGINAL ITCHING AFTER COMPLETI NG ANTIBIOT ICS; RECORDED 10/31/19 12 2:42PM BY NICKY WOODS ON/ADDEN DUM Michelle Degutis abraham [facility] 6 11:38:22 Impacted cerumen 15655216 Completed 09/17/2016 Becky rosario [facility] 7 17:00:46 Hyponatr emia 46120924 Completed 09/04/2017 Dilshad Hall MD [address], [place], [address] 8 06:00:03 Anemia due to chronic blood loss 089205493 Completed 201109/15/2013 RECORDED 10/31/19 12 2:42PM BY NICKY WOODS ON/ADDEN DUM Michelle Degutis abraham [facility] 6 11:38:21 Tobacco user 499193262 Completed 201209/15/2013 RECORDED 01/28/20 13 1:17PM BY ALEXANDRE AGUILAR MA, ANNOTATI ON/ADDEN DUM Becky rosario [facility] 7 17:00:35 Chest pain 12166934 Completed 201109/15/2013 RECORDED 10/31/19 12 2:41PM BY NICKY WOODS ON/ADDEN DUM Michelle Degutis abraham [facility] 6 11:38:22 Screenin g for malignan t neoplasm of colon Completed 201209/15/2013 RECORDED 04/30/19 13 2:37PM BY TEA HANDY MA, ANNOTATI ON/ADDEN DUM Michelle Degutis abraham [facility] 6 11:38:22 Divertic ular disease of colon 871717550 Completed 201109/15/2013 STORY: PT WAS SEEN IN OUR OFFICE 11/30/09 FOR RECTAL BLEEDING AND WAS REFERRED TO GI FOR AN EVALUATI ON. THAT EVENING EVERY TIME THE PT ATE SOMETHIN G SHE WOULD BE GOING TO THE BATHROOM TO HAVE A BM THAT WAS FILLED WITH BLOOD. AFTER A FEW TIMES THE PT TOOK HERSELF TO [facility] TO BE EVALUATE D. THE ONLY SX THAT THE PT FELT WAS BLOATING AND CRAMPING EVERYTIM E SHE ATE. PT HAD TO UNDERGO A COLONOSC OPY WITCH SHOWED THAT THE PT HAD BLEEDING COMING FROM THE ASCENDIN G,DESCEN DING, AND TRANSVER SE COLON. PT WAS LATER TRANSFER RED TO [facility] TO BE WATCHED CLOSELY. PT WAS THEN PLACED ON A LIQUID DIET UNTIL THE TIME WHERE SHE COULD TOLERATE SOLID FOOD WITH OUT PASSING A BM THAT WAS BLOODY. MEDICATI ON HAS BEEN RECONSIL ED WITH THE PT AND SHE WILL F/U WITH MGD 12/21/09 .; RECORDED 10/31/19 12 2:41PM BY NICKY WOODS ON/ADDEN TORIE rosario [facility] 6 11:38:21 Hemorrha ge of colon 61267354 Completed 201109/15/2013 STORY: STABLE/ STILL ANEMIC; RECORDED 10/31/19 12 2:41PM BY NICKY WOODS ON/ADDEN TORIE rosario [facility] 6 11:38:22 Dysuria 73812656 Completed 201109/15/2013 IMPRESSI ON: 3+ LEUKOCYT ES ON UA TODAY, COMPLETE D BACTRIM 2 DAYS AGO, START CIPRO AND SEND CULTURE; RECORDED 10/31/19 12 2:41PM BY NICKY WOODS ON/ADDEN DUM Becky rosario [facility] 7 17:01:13 Influenz a vaccine needed [id number] 06 Completed 201209/15/2013 RECORDED 04/30/19 13 2:37PM BY TEA HANDY MA, JERELATI ON/ADDEN DUM Michelle Ervin [facility], [facility] 6 11:38:22 Follow-u p encounte r Completed 201209/15/2013 RECORDED 04/30/19 13 2:37PM BY TEA HANDY MA, ANNOTATI ON/ADDEN DUM Michelle Aziza [facility], [facility] 6 11:38:22 Hypo-osm olality and or hyponatr emia 304509611 Completed 201109/15/2013 RECORDED 10/31/19 12 2:41PM BY NICKY WOODS ON/ADDEN DUM Michelle Aziza [facility], [facility] 6 11:38:21 Impacted cerumen 99340016 Completed 201209/15/2013 RECORDED 01/28/20 13 1:17PM BY ALEXANDRE AGUILAR MA, JERELATI ON/ADDEN DUM Becky Norton [facility], [facility] 7 17:00:46 Renewal of prescrip tion Completed 201209/15/2013 RECORDED 04/30/19 13 2:37PM BY TEA HANDY MA, JERELATI ON/ADDEN DUM Michelle Aziza [facility], [facility] 6 11:38:22 Active or passive immuniza tion Completed 200909/15/2013 RECORDED 03/01/19 10 9:56AM BY PILLO Masters NP, OFFICE VISIT Michelle Aziza [facility], [facility] 6 11:38:22 Examinat ion for suspecte d mental disorder Completed 201109/15/2013 RECORDED 10/31/19 12 2:41PM BY NICKY WOODS ON/ADDEN DUM Michelle Ervin [facility] 6 11:38:22 Pre-surg girish evaluati on Completed 201209/15/2013 IMPRESSI ON: PT IS MEDICALL Y ABLE TO UNDERGO SURGERY, NO ACTIVE ISSUES, IS ABLE TO LAY FLAT AND STILL, EKG NL AND WILL GET LABS; RECORDED 01/28/20 13 1:17PM BY ALEXANDRE AGUILAR MA, NICKY ON/ADDEN DUM Michelle Degutis null, [facility] 6 11:38:22 Tachycar wesley 4024776 Completed 201109/15/2013 RECORDED 10/31/19 12 2:42PM BY JEREL WOODSATI ON/ADDEN DUM Michelle Degutis null, [facility] 6 11:38:22 Retentio n of urine 550875791 Completed 201209/15/2013 RECORDED 04/30/19 13 2:37PM BY TEA HANDY MA, NICKY ON/ADDEN DUM Michelle Degutis null, [facility] 6 11:38:22 Vaginiti s and vulvovag initis Completed 201109/15/2013 IMPRESSI ON: VAGINAL ITCHING AFTER COMPLETI NG ANTIBIOT ICS; RECORDED 10/31/19 12 2:42PM BY NICKY WOODS ON/ADDEN DUM Michelle Degutis null, [facility] 6 11:38:22 Anemia due to chronic blood loss 186160133 Completed 201109/16/2013 RECORDED 10/31/19 12 2:42PM BY NICKY WOODS ON/ADDEN DUM Michelle Degutis null, [facility] 6 11:38:21 Tobacco user [id number] Completed 201209/16/2013 RECORDED 01/28/20 13 1:17PM BY ALEXANDRE AGUILAR MA, NICKY ON/ADDEN DUM Becky Norton MA null, [facility] 7 17:00:35 Chest pain 03016162 Completed 201109/16/2013 RECORDED 10/31/19 12 2:41PM BY NICKY WOODS ON/ADDEN DUM Michelle Degutis null, [facility] 6 11:38:22 Screenin g for malignan t neoplasm of colon Completed 201209/16/2013 RECORDED 04/30/19 13 2:37PM BY TEA HANDY MA, ANNOTATI ON/ADDEN DUM Michelle rosario, [facility] 6 11:38:22 Divertic ular disease of colon 778142590 Completed 201109/16/2013 STORY: PT WAS SEEN IN OUR OFFICE 11/30/09 FOR RECTAL BLEEDING AND WAS REFERRED TO GI FOR AN EVALUATI ON. THAT EVENING EVERY TIME THE PT ATE SOMETHIN G SHE WOULD BE GOING TO THE BATHROOM TO HAVE A BM THAT WAS FILLED WITH BLOOD. AFTER A FEW TIMES THE PT TOOK HERSELF TO [facility] TO BE EVALUATE D. THE ONLY SX THAT THE PT FELT WAS BLOATING AND CRAMPING EVERYTIM E SHE ATE. PT HAD TO UNDERGO A COLONOSC OPY WITCH SHOWED THAT THE PT HAD BLEEDING COMING FROM THE ASCENDIN G,DESCEN DING, AND TRANSVER SE COLON. PT WAS LATER TRANSFER RED TO [facility] TO BE WATCHED CLOSELY. PT WAS THEN PLACED ON A LIQUID DIET UNTIL THE TIME WHERE SHE COULD TOLERATE SOLID FOOD WITH OUT PASSING A BM THAT WAS BLOODY. MEDICATI ON HAS BEEN RECONSIL ED WITH THE PT AND SHE WILL F/U WITH MGD 12/21/09 .; RECORDED 10/31/19 12 2:41PM BY NICKY WOODS ON/ADDEN DUM Michelle rosario [facility] 6 11:38:21 Hemorrha ge of colon 82923664 Completed 201109/16/2013 STORY: STABLE/ STILL ANEMIC; RECORDED 10/31/19 12 2:41PM BY NICKY WOODS ON/ADDEN TORIE rosario, [facility] 6 11:38:22 Dysuria 81475655 Completed 201109/16/2013 IMPRESSI ON: 3+ LEUKOCYT ES ON UA TODAY, COMPLETE D BACTRIM 2 DAYS AGO, START CIPRO AND SEND CULTURE; RECORDED 10/31/19 12 2:41PM BY NICKY WOODS ON/ADDEN DUM Becky Norton MA null, [facility] 7 17:01:13 Influenz a vaccine needed [id number] 06 Completed 201209/16/2013 RECORDED 04/30/19 13 2:37PM BY TEA HANDY MA, JERELATI ON/ADDEN DUM Michelle Pacousha rosario, [facility] 6 11:38:22 Follow-u p encounte r Completed 201209/16/2013 RECORDED 04/30/19 13 2:37PM BY TEA HANDY MA, NICKY ON/ADDEN DUM Michelle Pacousha rosario, [facility] 6 11:38:22 Hypo-osm olality and or hyponatr emia 562742596 Completed 201109/16/2013 RECORDED 10/31/19 12 2:41PM BY NICKY WOODS ON/EN DUM Michelle rosario, [facility] 6 11:38:21 Impacted cerumen 31649372 Completed 201209/16/2013 RECORDED 01/28/20 13 1:17PM BY ALEXANDRE AGUILAR MA, NICKY ON/ADDEN TORIE rosario, [facility] 7 17:00:46 Renewal of prescrip tion Completed 201209/16/2013 RECORDED 04/30/19 13 2:37PM BY TEA HANDY MA, NICKY ON/ADDEN DUM Michelle Pacousha rosario, [facility] 6 11:38:22 Active or passive immuniza tion Completed 200909/16/2013 RECORDED 03/01/19 10 9:56AM BY PILLO Masters NP, OFFICE VISIT Michelle rosario, [facility] 6 11:38:22 Examinat ion for suspecte d mental disorder Completed 201109/16/2013 RECORDED 10/31/19 12 2:41PM BY NICKY WOODS ON/ADDEN TORIE Ervin null, [facility] 6 11:38:22 Pre-surg girish hartmanati on Completed 201209/16/2013 IMPRESSI ON: PT IS MEDICALL Y ABLE TO UNDERGO SURGERY, NO ACTIVE ISSUES, IS ABLE TO LAY FLAT AND STILL, EKG NL AND WILL GET LABS; RECORDED 01/28/20 13 1:17PM BY ALEXANDRE AGUILAR MA, ANNOTATI ON/[facility] Degutis null, [facility] 6 11:38:22 Tachycar wesley [id number] Completed 201109/16/2013 RECORDED 10/31/19 12 2:42PM BY NICKY WOODS ON/[facility] Degutis null, [facility] 6 11:38:22 Retentio n of urine 468184191 Completed 201209/16/2013 RECORDED 04/30/19 13 2:37PM BY TEA HANDY MA, ANNOTATI ON/[facility] Degutis null [facility] 6 11:38:22 Vaginiti s and vulvovag initis Completed 201109/16/2013 IMPRESSI ON: VAGINAL ITCHING AFTER COMPLETI NG ANTIBIOT ICS; RECORDED 10/31/19 12 2:42PM BY NICKY WOODS ON/[facility] Degutis null [facility] 6 11:38:22 Dermatit is Completed 09/17/2016 Becky rosario [facility] 7 17:00:48 Dysuria 82291122 Completed 09/17/2016 Becky rosario [facility] 7 17:01:13 Insomnia 116441519 Active Michelle Antonoiutedouard null [facility] 6 11:38:21 Advance directiv e discusse d with patient 692245649 Completed 09/17/2016 Becky rosario [facility] 7 17:01:07 Polyp of colon 85322717 Active Michelle Aziza abraham [facility] 6 11:38:21 Chronic low back pain 227567690 Active 2018 Rebeca rosario [facility] 9 14:22:51 Problem Notes None recorded. Procedures Surgical History Date Name Laterality Status Provider Name and Address Organization Details Recorded Time 01/21/20 19 Mini-Cog Test completed Leila Julien MA [facility] 01/20/2019 09:52:44 12/30/19 18 Most Recent Mammogram completed Leila Julien MA [facility] 01/20/2019 09:47:42 12/19/19 18 Mini-Cog Test completed Naheed Veliz [facility] 12/18/2017 13:13:25 12/02/19 17 Fall Risk Assessment completed Becky Norton MA [facility] 12/01/2016 13:22:35 12/02/19 17 Mini-Cog Test completed Becky Norton [facility] 12/01/2016 13:23:31 11/29/19 17 Mammogram both breasts completed Kimmy Yañez [facility] 12/09/2016 14:44:18 10/17/19 17 Date of Last Colonoscopy completed Paola Kendall [facility] 12/09/2016 16:54:35 10/17/19 17 Colonoscopy completed Becky Norton MA [facility] 10/24/2016 11:43:36 03/23/19 16 Fall Risk Assessment completed Becky Norton MA [facility] 03/23/2015 13:55:01 03/23/19 16 Mini-Cog Test completed Becky Norton [facility] 03/23/2015 14:02:26 03/23/19 16 Advanced Care Planning completed Becky Norton MA [facility] 03/23/2015 13:41:44 08/19/19 15 Date of Last Pap Smear completed Michelle Ervin [facility] 03/28/2015 11:40:33 02/23/19 11 Most Recent Bone Density completed Beck[facility] 03/23/2015 14:07:39 02/09/19 08 Appendectomy completed Tea Cohasset [facility] 03/02/2014 10:46:37 Imaging Results Imaging Date Name Status LastModified by Organization Details LastModified Time 05/15/2017 electrocardiogram completed Infor mation not available 05/15/2017 12:36:53 06/14/2018 XR, sacrum + coccyx, 2 or more view active [facility] [address] [place], [address], 06/15/2018 15:07:23 06/14/2018 XR, lumbar spine active [facility] [address] [place], [address], 06/15/2018 15:07:23 Procedure Notes None recorded. Medical Equipment None Reported. Allergies Allergen ID Allergen Name Allergen Category Reaction Reaction Severity Criticality Documentation Date Start Date Code Code System Note Provider Name and Address Organization Details Recorded Time 2935 latex environme nt,medica tion rash Not available Not available 08/23/20132012 02287 91 RxNorm Becky Norton MA [facility] 7 17:00:18 Medications Name [...] Updated DateTime 8 154.94 cm 31.4 kg/m2 43269.4 3 g 98.7 [degF] 96 % 96 % 89 /min 118 mm[Hg] 76 mm[Hg] Becky Norton [facility] 8 11:28:28 Date Recorded Body height Body mass index (BMI) Body weight Heart rate Oxygen saturation Oxygen saturation in Arterial blood by Pulse oximetry Body temperature Systolic blood pressure Diastolic blood pressure Provider Name and Address Organization Details Last Updated DateTime 8 154.94 cm 30.8 kg/m2 21886.5 6 g 94 /min 97 % 97 % 97.5 [degF] 136 mm[Hg] 74 mm[Hg] Jovan Medina [facility] 8 10:41:30 Date Recorded Body height Body mass index (BMI) Body weight Body temperature Heart rate Oxygen saturation Oxygen saturation in Arterial blood by Pulse oximetry Systolic blood pressure Diastolic blood pressure Provider Name and Address Organization Details Last Updated DateTime 8 154.94 cm 30.5 kg/m2 91517.4 7 g 97.2 [degF] 86 /min 96 % 96 % 123 mm[Hg] 72 mm[Hg] Naheed Veliz [facility] 8 12:57:56 Date Recorded Body height Body mass index (BMI) Body weight Heart rate Oxygen saturation Oxygen saturation in Arterial blood by Pulse oximetry Body temperature Systolic blood pressure Diastolic blood pressure Provider Name and Address Organization Details Last Updated DateTime 9 154.94 cm 30.2 kg/m2 92250.7 8 g 92 /min 96 % 96 % 98.4 [degF] 124 mm[Hg] 78 mm[Hg] Ruby Mackey [facility] 9 12:59:19 Date Recorded Body height Body mass index (BMI) Body weight Oxygen saturation Oxygen saturation in Arterial blood by Pulse oximetry Heart rate Body temperature Systolic blood pressure Diastolic blood pressure Provider Name and Address Organization Details Last Updated DateTime 9 154.94 cm 30.7 kg/m2 00474.0 6 g 96 % 96 % 81 /min 98.1 [degF] 119 mm[Hg] 67 mm[Hg] Leila Julien [facility] 9 09:56:35 Social History Question Answer Notes LastModified by Organizat ion Details LastModified Time Tobacco Smoking Status Former Smoker ELLIOTT Plascencia, [facility] 09/08/2013 11:26:06 Do You Have An [...] E-cigarettes Or Vape? Never Used Electronic Cigarettes [email or web address] Information not available 01/20/2019 What Is Your Occupation?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
== END 2024-06-10 11:52 | disposition home or self-care (01) ==
LOC: HO.ACS 11:20
PROVIDERS: PCP Family Medicine; Visit Provider Internal Medicine Medical Oncology
DX: Z79.01 Long term (current) use of anticoagulants (principal)

== ENCOUNTER → 2024-06-10 11:20 | Outpatient (BNVA) | payer MEDICARE, MEDICAID, SELFPAY | PROVIDERS: PCP Family Medicine; Visit Provider Internal Medicine Medical Oncology | DX: I26.99 Other pulmonary embolism without acute cor pulmonale (principal); Z51.81 Encounter for therapeutic drug level monitoring; Z79.01 Long term (current) use of anticoagulants | CPT/HCPCS: 85610; 99212 ==

== ENCOUNTER 2024-06-24 10:45 | Outpatient (AMB) | payer MEDICARE, MEDICAID, SELFPAY ==
[2024-06-24 11:03] LABS: Prothrombin Time Whole Bld POC 31.9 sec (11.1-13.5); ~PT, ~INR - Anti Coag Clinic 2.7 (0.9-1.1)
--- NOTE | 2024-06-24 11:17 | MHC.OFFVISCO ---
Intake Intake Visit Reasons: Anticoagulation Allergies Seasonal Allergies Allergy (Mild, Verified 06/24/24 10:56) runny nose latex Allergy (Verified 06/24/24 10:56) rash Medication List - Last Reconciled 06/24/24 by Anabella Otoole RN albuterol sulfate 90 mcg/actuation 2 puffs inhalation Q8H PRN cetirizine (Zyrtec) 10 mg PO DAILY PRN cholecalciferol (vitamin D3) 50 mcg PO DAILY citalopram 20 mg PO DAILY 90 days clonazepam 0.5 mg PO BID PRN diltiazem HCl CD 120 mg PO DAILY 90 days fluticasone propionate 50 mcg/actuation (Flonase Allergy Relief) 1 spray intranasal Q12H 30 days gabapentin 300 mg PO BID losartan 12.5 mg (1/2 x 25 mg) PO DAILY 90 days mometasone-formoterol 200-5 mcg/actuation (Dulera) 2 puffs inhalation Q12H 30 days omeprazole 20 mg PO DAILY tamsulosin 0.4 mg PO BEDTIME 90 days warfarin 2 mg See Protocol PO DAILY 30 days Nursing Note *pt came to [facility] with clean dry and intact nasal bandage INR: 2.7 in therapeutic range Medications and supplements reviewed *pt has a nasal tumor inside nasal passage way, 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 or [facility] July 11 2024- call placed to cancer center a [facility]- spoke with Lizbet who took msg regarding pt status and how many days she is to hold warfarin for the procedure- she states she will convey msg to medical team. Denies any signs and symptoms of bleeding or bruising or clotting. 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
--- OUTSIDE RECORDS SUMMARY | 2024-06-24 11:17 | XMS_ITS | Continuity of Care Document ---
Author Organization Pre [facility] Address [address] [place] [address] Care Team Providers Care Hearing Consultant Name Role Phone Basia AGUILA, Ric Greene Primary Care Physician [phone] En[place] [facility] [place] 05/20/24 - 06/19/24 [facility] [address] [place], [place] [address] Attending Physician: Jeni Aleman Admitting Physician: AdmtrJeni Referring Physician: Admtr ArReza Encounter Type: Triage Allergies, Adverse Reactions, Alerts Substance Criticality Severity Reaction Reaction Severity Status Latex Unable to assess criticality Unknown rash Active Immunizations Given and Recorded Vaccine Date Status Refusal Reason tetanus/diphtheria/pertussis, acel(Tdap) 10/06/22 Given tetanus/diphtheria/pertussis, acel(Tdap) 08/27/11 Recorded SARS-CoV-2 mRNA (iodcunm-xvds-jxpwd) vax 03/29/21 Recorded SARS-CoV-2 (COVID-19) mRNA BNT-162b2 [...] 4 Refills, Maintenance, 05/12/22 11:49:00 AM EDT, [id number], Partial fill upon patient request if the prescription is for a schedule II opioid drug., 155, cm, 04/23/22 11:58:00 EDT, Height, 72, kg, 04/23/22 11:58:00 EDT, Dry Weight Start Date: 05/12/22 Status: Ordered Quantity: 120.0 Unit: tablet Repeat number: 5 Problem List Condition Confirmation Course Effective Dates Status Health St atus Informant Generalized anxiety disorder Confirmed Active Hyponatremia Confirmed Active Social History Social History Type Response Smoking Status Former smoker, quit more than 30 days ago entered on: 07/08/19 Sex Sex Representation Female (finding) Laboratory * Event Display: Non Lab Results Authored Date: Patient Care team information Care Team Personnel Name: Ric Flor MD Position: [facility] Outreach Member Role: PCP Address: [address] [place] [address] Telecom: Care Team Related Persons Name: LUISITO LUZ Name: CLAUDIA ELENA Name: FIDENCIO MAGAÑA Insurance Providers Guarantor name: [facility] Health Plan Information #: 1 Payer: MEDICARE PART B OUTPT Member Number: NA Policy Number: NA Group Number: NA Health Plan Information #: 2 Payer: MEDEX Member Number: NA Policy Number: NA Group Number: NA
--- OUTSIDE RECORDS SUMMARY | 2024-06-24 11:17 | XMS_ITS | Data Portability ---
Author Organization [facility], Main Office Address [address] [place] [address] Care Team Providers Care Mushroom Growth Media Mixer Name Role Phone ABDIEL ORTEGA Solid State Tester GRACIELA MILLER Urologist ABDIEL LOZANO Claims Service Representative URBAN PRIDE Telegraphic Instrument Supervisor HUMBERTO SINGH Dynamic Etching Processor RICARDO HUGHES Chiropractor [facility] Physical Therapist DENIS MARCOS Primary Care Provider Assessment No assessment recorded. Plan of Treatment Reminders Order Date Submit Date Provider Last Modified By Organization Details Last Modified Time Details Appointments None recorded. Lab HbA1c (hemoglob in A1c), blood 2018 019 [facility] (Centralized Electronic Ordering - All Locations), Patient Can Go To The Location Of Their Choice, [address] 0 09:38:13 BMP, serum or plasma 2018 019 [facility] (Centralized Electronic Ordering - All Locations), Patient Can Go To The Location Of Their Choice, [address] 0 09:38:13 lipid panel, serum 2018 019 [facility] (Centralized Electronic Ordering - All Locations), Patient Can Go To The Location Of Their Choice, [address] 0 09:38:13 magnesium , serum or plasma [...] serum or plasma [address] [facility] ([facility] - All Locations), Patient Can Go To The Location Of Their Choice, 11:56:02 Referral spine center referral - patient in 2017, MRI showed crowding L2 nerve root on the left, having worsenign sx of sciatic pain, low back pain, leg pains bilateral ly. 2018 isa[facility], [address] [place] [address], [place], [address], 17:23:40 physical therapist referral - [facility] for [facility], [address] [place], [address], 8 16:26:43 urologist referral - pt has not seen urology in 2 years or more and wants to have consultat ion w/ urologist rather than [facility] 2017 018 scott Crane MD, [address], [address], [place], [address], 8 13:35:13 Procedures None recorded. Surgeries None recorded. Imaging XR, lumbar spine - chronic low back pain, worsening s/p fall in february [id number] 019 [facility], [address] [place] [address], [address], 9 10:29:46 XR, sacrum + coccyx - s/p fall in february, hx low back arthritis . pain worsening 2018 019 [facility], [address] [place] [address], [address], 9 10:29:44 Medication Orders clorazepa te dipotassi um 3.75 mg tablet 2017 018 [facility]FACE [id number], [address] [place], [address], 8 11:18:58 tamsulosi n 0.4 mg capsule 2017 018 [id number], [address] [place], [address], 8 13:01:14 clorazepa te dipotassi um 3.75 mg tablet 2017 018 INTERFACE [id number], [address] [place], [address], 8 12:05:21 Patient TargetsNo targets recorded. Patient Instructions Encounter Date Encounter Id Patient Instructions Last Modified By Organization Details Last Modified Time 11/13/2017 [id number] anxiety disorder: care instructions [email or web address] Not available 11/13/2017 11:18:44 call or return for worsening or concerns. [email or web address] Not available 11/13/2017 11:13:19 I have reviewed the note and agree with the assessment and plan of care. dolores Not available 11/13/2017 12:41:01 12/18/2017 [id number] preventing falls: care instructions [email or web address] Not available [...] medication. jthabet Not available 12/18/2017 13:20:44 06/11/2018 [id number] low back pain: exercises jthabet Not available 06/11/2018 13:24:20 call or return for worsening or concerns. [email or web address] Not available 06/11/2018 13:22:08 01/20/2019 [id number] preventing falls: care instructions [email or web address] Not available 01/20/2019 10:20:59 call or return for woraening or concerns. [email or web address] Not available 01/20/2019 10:20:56 Reviewed the risks and benefits of prison opiate use, OUD discussed with the patient. Reviewed the risks and benefits of other non-opioid pain therapies. Reviewed caution with driving, fall risk, treatment for constipation. Patient verbalizes understanding of risk and benefits, and of OUD. [email or web address] Not available 01/20/2019 09:46:37 Reason for Referral Urologist Referral for Incom plete emptying of urinary bladder pt has not seen urology in 2 years or more and wants to have consultation w/ urologist rather than [facility] CLASS Referring Physician: Ricardo Dhillon, Internal Medicine, Encounter [...] value s are curre ntly being repor gfity in mg/dL . Novem 2017, Magne sium [...] ce of an acute proces s. WSN: [id number] Dictat ed By: Delonte Barrios MD Dictat ed Date/T erlinda: 10:26 a Review ed By: Delonte Barrios MD Signed By: Delonte Barrios MD Signed Date/T erlinda: 10:26 am Transc ribed By: PASTORA Transc ribed Date/T erlinda: 10:24 am Patien t Class: Outpat ient [facility] (Out[facility]) [address] [place], [address], 06/15/2018 15:07:23 06/15/19 19 06/14/2018 XR, lumba [...] ce of an acute proces s. WSN: [id number] Dictat ed By: Delonte Barrios MD Dictat ed Date/T erlinda: 10:26 a Review ed By: Delonte Barrios MD Signed By: Delonte Barrios MD Signed Date/T erlinda: 10:26 am Transc ribed By: PASTORA Transc ribed Date/T erlinda: 10:24 am Patien t Class: Outpat ient [facility] ([facility]) [address] [place], [address], 06/15/2018 15:07:23 Result Notes None recorded. Problems Name Problem SNOMED Code Status Onset Date Resolution Date Notes Provider Name and Address Organization Details Recorded Time Anemia due to chronic blood loss 808146382 Completed 201108/23/2013 RECORDED 10/31/19 12 2:42PM BY NICKY WOODS ON/ADDEN DUM Michelle Ervin abraham [facility] 6 11:38:21 Anxiety state 967408491 Active [address] [facility] 7 17:00:55 Tobacco user 820214672 Completed 201208/23/2013 RECORDED 01/28/20 13 1:17PM BY ALEXANDRE AGUILAR MA, ANNOTATI ON/ADDEN DUM Becky [facility]ario [facility] 7 17:00:35 History of clinical finding in subject [id number] Completed 201209/17/2016 RECORDED 01/28/20 13 1:17PM BY ALEXANDRE AGUILAR MA, ANNOTATI ON/ADDEN DUM Becky rosario [facility] 7 17:01:11 Asthma 075739338 Active 2012 Becky rosario [facility] 7 17:00:52 Screenin g for malignan t neoplasm of breast Completed 201410/31/2016 Dr. Susy Ortega, negative Becky rosario [facility] 7 13:35:13 Screenin g for malignan t neoplasm of breast Completed 201108/23/2013 RECORDED 10/31/19 12 2:41PM BY JEREL WOODSATI ON/ADDEN DUM Becky rosario, [facility] 7 13:35:13 Chest pain 54794539 Completed 201108/23/2013 RECORDED 10/31/19 12 2:41PM BY JEREL WOODSATI ON/ADDEN DUM Michelle Degutedouard null, [facility] 6 11:38:22 Screenin g for malignan t neoplasm of colon Completed 201208/23/2013 RECORDED 04/30/19 13 2:37PM BY TEA HANDY MA, ANNOTATI ON/ADDEN DUM Michelle Degutedouard null, [facility] 6 11:38:22 Divertic ular disease of colon 914545735 Completed 201108/23/2013 STORY: PT WAS SEEN IN OUR OFFICE 11/30/09 FOR RECTAL BLEEDING AND WAS REFERRED TO GI FOR AN EVALUATI ON. THAT EVENING EVERY TIME THE PT ATE SOMETHIN G SHE WOULD BE GOING TO THE BATHROOM TO HAVE A BM THAT WAS FILLED WITH BLOOD. AFTER A FEW TIMES THE PT TOOK HERSELF TO [facility] TO BE EVALUATE D. THE ONLY SX THAT THE PT FELT WAS BLOATING AND CRAMPING EVERYTIM E SHE ATE. PT HAD TO UNDERGO A COLONOSC OPY WITCH SHOWED THAT THE PT HAD BLEEDING COMING FROM THE ASCENDIN G,DESCEN DING, AND TRANSVER SE COLON. PT WAS LATER TRANSFER RED TO [facility] TO BE WATCHED CLOSELY. PT WAS THEN PLACED ON A LIQUID DIET UNTIL THE TIME WHERE SHE COULD TOLERATE SOLID FOOD WITH OUT PASSING A BM THAT WAS BLOODY. MEDICATI ON HAS BEEN RECONSIL ED WITH THE PT AND SHE WILL F/U WITH MGD 12/21/09 .; RECORDED 10/31/19 12 2:41PM BY JEREL WOODSATI ON/ADDEN DUM Michelle Antoniousha null, [facility] 6 11:38:21 Hemorrha ge of colon 61325286 Completed 201108/23/2013 STORY: STABLE/ STILL ANEMIC; RECORDED 10/31/19 12 2:41PM BY NICKY WOODS ON/ADDEN DUM Michelle rosario [facility] 6 11:38:22 Divertic ulitis of colon 598233155 Active [address] [facility] 7 17:00:37 Dysuria 28256995 Completed 201108/23/2013 IMPRESSI ON: 3+ LEUKOCYT ES ON UA TODAY, COMPLETE D BACTRIM 2 DAYS AGO, START CIPRO AND SEND CULTURE; RECORDED 10/31/19 12 2:41PM BY NICKY WOODS ON/ADDEN DUM Becky rosario [facility] 7 17:01:13 Gastroes ophageal reflux disease 847522898 Active [address] [facility] 7 17:00:59 [facility] julisa 34298121 Active [address] [facility] 7 17:01:17 [facility] hyperten julisa 71447495 Completed 201108/23/2013 RECORDED 10/31/19 12 2:41PM BY NICKY WOODS ON/ADDEN DUM Becky rosario [facility] 7 17:01:17 External hemorrho ids 04023029 Active [address] [facility] 7 17:01:03 Influenz a vaccine needed [id number] 06 Completed 201208/23/2013 RECORDED 04/30/19 13 2:37PM BY TEA HANDY MA, ANNOTATI ON/ADDEN DUM Michelle rosario [facility] 6 11:38:22 Follow-u p encounte r Completed 201208/23/2013 RECORDED 04/30/19 13 2:37PM BY TEA HANDY MA, ANNOTATI ON/ADDEN DUM Michelle Degutis null, [facility] 6 11:38:22 Tobacco user 708787076 Active 2012 Becky rosario, [facility] 7 17:00:35 Adult health examinat ion Completed 201209/17/2016 STORY: COLONOSC OPY DUE SS/TUBUL AR ADENOMA; RECORDED 01/28/20 13 1:58PM BY RICRADO COLE MD, OFFICE VISIT Becky rosario, [facility] 7 17:01:05 Adult health examinat ion Completed 201208/23/2013 RECORDED 04/30/19 13 2:37PM BY TEA HANDY MA, ANNOTATI ON/ADDEN DUM Becky rosario, [facility] 7 17:01:05 Hearing loss 96552676 Active 2012 Becky rosario, [facility] 7 17:00:40 History of Malignan t melanoma 047823347 Active 2013 Becky rosario, [facility] 7 17:00:45 Hypo-osm olality and or hyponatr emia 739447760 Completed 201108/23/2013 RECORDED 10/31/19 12 2:41PM BY NICKY WOODS ON/ADDEN DUM Michelle Degutedouard null, [facility] 6 11:38:21 Impacted cerumen 31152640 Completed 201208/23/2013 RECORDED 01/28/20 13 1:17PM BY ALEXANDRE AGUILAR MA, ANNOTATI ON/ADDEN DUM Becky rosario, [facility] 7 17:00:46 Irritabl e bowel syndrome 52272593 Active 2012 Becky rosario [facility] 7 17:00:31 Renewal of prescrip tion Completed 201208/23/2013 RECORDED 04/30/19 13 2:37PM BY TEA HANDY MA, ANNOTATI ON/ADDEN DUM Michelle Degutis null, [facility] 6 11:38:22 Malignan t melanoma of skin 54237550 Active 2013 Becky rosario, [facility] 7 17:01:28 Active or passive immuniza tion Completed 200908/23/2013 RECORDED 03/01/19 10 9:56AM BY PILLO Masters NP, OFFICE VISIT Michelle rosario [facility] 6 11:38:22 Examinat ion for suspecte d mental disorder Completed 201108/23/2013 RECORDED 10/31/19 12 2:41PM BY NICKY WOODS ON/ADDEN DUM Michelle Degutis null [facility] 6 11:38:22 Pre-surg girish evaluati on Completed 201208/23/2013 IMPRESSI ON: PT IS MEDICALL Y ABLE TO UNDERGO SURGERY, NO ACTIVE ISSUES, IS ABLE TO LAY FLAT AND STILL, EKG NL AND WILL GET LABS; RECORDED 01/28/20 13 1:17PM BY ALEXANDRE AGUILAR MA, NICKY ON/ADDEN DUM Michelle Degutis abraham [facility] 6 11:38:22 Tachycar wesley [id number] Completed 201108/23/2013 RECORDED 10/31/19 12 2:42PM BY NICKY WOODS ON/ADDEN DUM Michelle Degutis null [facility] 6 11:38:22 Retentio n of urine 961893430 Completed 201208/23/2013 RECORDED 04/30/19 13 2:37PM BY TEA HANDY MA, ANNOTATI ON/ADDEN DUM Michelle Degutis abraham [facility] 6 11:38:22 Urinary tract infectio us disease 19991461 Active [address] [facility] 7 17:01:20 Vaginiti s and vulvovag initis Completed 201108/23/2013 IMPRESSI ON: VAGINAL ITCHING AFTER COMPLETI NG ANTIBIOT ICS; RECORDED 10/31/19 12 2:42PM BY NICKY WOODS ON/ADDEN DUM Michelle Degutis abraham [facility] 6 11:38:22 Impacted cerumen 33673995 Completed 09/17/[address] [facility] 7 17:00:46 Hyponatr emia 92295886 Completed 09/04/2017 Dilshad Hall MD [address], [place], [address] 8 06:00:03 Anemia due to chronic blood loss 889526194 Completed 201109/15/2013 RECORDED 10/31/19 12 2:42PM BY NICKY WOODS ON/ADDEN DUM Michelle Degutis abraham [facility] 6 11:38:21 Tobacco user [id number] Completed 201209/15/2013 RECORDED 01/28/20 13 1:17PM BY ALEXANDRE AGUILAR MA, ANNOTATI ON/ADDEN DUM Becky rosario [facility] 7 17:00:35 Chest pain 03949034 Completed 201109/15/2013 RECORDED 10/31/19 12 2:41PM BY NICKY WOODS ON/ADDEN DUM Michelle Degutis abraham [facility] 6 11:38:22 Screenin g for malignan t neoplasm of colon Completed 201209/15/2013 RECORDED 04/30/19 13 2:37PM BY TEA HANDY MA, ANNOTATI ON/ADDEN DUM Michelle Degutis abraham [facility] 6 11:38:22 Divertic ular disease of colon 222463307 Completed 201109/15/2013 STORY: PT WAS SEEN IN OUR OFFICE 11/30/09 FOR RECTAL BLEEDING AND WAS REFERRED TO GI FOR AN EVALUATI ON. THAT EVENING EVERY TIME THE PT ATE SOMETHIN G SHE WOULD BE GOING TO THE BATHROOM TO HAVE A BM THAT WAS FILLED WITH BLOOD. AFTER A FEW TIMES THE PT TOOK HERSELF TO [facility] TO BE EVALUATE D. THE ONLY SX THAT THE PT FELT WAS BLOATING AND CRAMPING EVERYTIM E SHE ATE. PT HAD TO UNDERGO A COLONOSC OPY WITCH SHOWED THAT THE PT HAD BLEEDING COMING FROM THE ASCENDIN G,DESCEN DING, AND TRANSVER SE COLON. PT WAS LATER TRANSFER RED TO [facility] TO BE WATCHED CLOSELY. PT WAS THEN PLACED ON A LIQUID DIET UNTIL THE TIME WHERE SHE COULD TOLERATE SOLID FOOD WITH OUT PASSING A BM THAT WAS BLOODY. MEDICATI ON HAS BEEN RECONSIL ED WITH THE PT AND SHE WILL F/U WITH MGD 12/21/09 .; RECORDED 10/31/19 12 2:41PM BY NICKY WOODS ON/ADDEN TORIE rosario [facility] 6 11:38:21 Hemorrha ge of colon 32371947 Completed 201109/15/2013 STORY: STABLE/ STILL ANEMIC; RECORDED 10/31/19 12 2:41PM BY NICKY WOODS ON/ADDEN TORIE rosario [facility] 6 11:38:22 Dysuria 27896818 Completed 201109/15/2013 IMPRESSI ON: 3+ LEUKOCYT ES ON UA TODAY, COMPLETE D BACTRIM 2 DAYS AGO, START CIPRO AND SEND CULTURE; RECORDED 10/31/19 12 2:41PM BY NICKY WOODS ON/ADDEN DUM Becky rosario [facility] 7 17:01:13 Influenz a vaccine needed [id number] 06 Completed 201209/15/2013 RECORDED 04/30/19 13 2:37PM BY TEA HANDY MA, JERELATI ON/ADDEN DUM Michelle Ervin [facility] [place], [facility] 6 11:38:22 Follow-u p encounte r Completed 201209/15/2013 RECORDED 04/30/19 13 2:37PM BY TEA HANDY MA, ANNOTATI ON/ADDEN DUM Michelle Aziza [facility] [place], [facility] 6 11:38:22 Hypo-osm olality and or hyponatr emia 734475834 Completed 201109/15/2013 RECORDED 10/31/19 12 2:41PM BY NICKY WOODS ON/ADDEN DUM Michelle Aziza [facility] [place], [facility] 6 11:38:21 Impacted cerumen [id number] Completed 201209/15/2013 RECORDED 01/28/20 13 1:17PM BY ALEXANDRE AGUILAR MA, JERELATI ON/ADDEN DUM Becky Norton [facility], [facility] 7 17:00:46 Renewal of prescrip tion Completed 201209/15/2013 RECORDED 04/30/19 13 2:37PM BY TEA HANDY MA, JERELATI ON/ADDEN DUM Michelle Aziza [facility] [place], [facility] 6 11:38:22 Active or passive immuniza tion Completed 200909/15/2013 RECORDED 03/01/19 10 9:56AM BY PILLO Masters NP, OFFICE VISIT Michelle Aziza [facility] [place], [facility] 6 11:38:22 Examinat ion for suspecte d mental disorder Completed 201109/15/2013 RECORDED 10/31/19 12 2:41PM BY NICKY WOODS ON/ADDEN DUM Michelle Ervin [facility] 6 11:38:22 Pre-surg girish evaluati on Completed 201209/15/2013 IMPRESSI ON: PT IS MEDICALL Y ABLE TO UNDERGO SURGERY, NO ACTIVE ISSUES, IS ABLE TO LAY FLAT AND STILL, EKG NL AND WILL GET LABS; RECORDED 01/28/20 13 1:17PM BY ALEXANDRE AGUILAR MA, NICKY ON/ADDEN DUM Michelle Degutis null, [facility] 6 11:38:22 Tachycar wesley [id number] Completed 201109/15/2013 RECORDED 10/31/19 12 2:42PM BY JEREL WOODSATI ON/ADDEN DUM Michelle Degutis null, [facility] 6 11:38:22 Retentio n of urine 634887149 Completed 201209/15/2013 RECORDED 04/30/19 13 2:37PM BY TEA HANDY MA, NICKY ON/ADDEN DUM Michelle Degutis null, [facility] 6 11:38:22 Vaginiti s and vulvovag initis Completed 201109/15/2013 IMPRESSI ON: VAGINAL ITCHING AFTER COMPLETI NG ANTIBIOT ICS; RECORDED 10/31/19 12 2:42PM BY NICKY WOODS ON/ADDEN DUM Michelle Degutis null, [facility] 6 11:38:22 Anemia due to chronic blood loss 093732231 Completed 201109/16/2013 RECORDED 10/31/19 12 2:42PM BY NICKY WOODS ON/ADDEN DUM Michelle Degutis null, [facility] 6 11:38:21 Tobacco user [id number] Completed 201209/16/2013 RECORDED 01/28/20 13 1:17PM BY ALEXANDRE AGUILAR MA, NICKY ON/ADDEN DUM Becky Norton MA null, [facility] 7 17:00:35 Chest pain 67235191 Completed 201109/16/2013 RECORDED 10/31/19 12 2:41PM BY NICKY WOODS ON/ADDEN DUM Michelle Degutis null, [facility] 6 11:38:22 Screenin g for malignan t neoplasm of colon Completed 201209/16/2013 RECORDED 04/30/19 13 2:37PM BY TEA HANDY MA, ANNOTATI ON/ADDEN DUM Michelle rosario, [facility] 6 11:38:22 Divertic ular disease of colon 627294780 Completed 201109/16/2013 STORY: PT WAS SEEN IN OUR OFFICE 11/30/09 FOR RECTAL BLEEDING AND WAS REFERRED TO GI FOR AN EVALUATI ON. THAT EVENING EVERY TIME THE PT ATE SOMETHIN G SHE WOULD BE GOING TO THE BATHROOM TO HAVE A BM THAT WAS FILLED WITH BLOOD. AFTER A FEW TIMES THE PT TOOK HERSELF TO [facility] TO BE EVALUATE D. THE ONLY SX THAT THE PT FELT WAS BLOATING AND CRAMPING EVERYTIM E SHE ATE. PT HAD TO UNDERGO A COLONOSC OPY WITCH SHOWED THAT THE PT HAD BLEEDING COMING FROM THE [place]END[place] G,DESCEN DING, AND TRANSVER SE COLON. PT WAS LATER TRANSFER RED TO [facility] TO BE WATCHED CLOSELY. PT WAS THEN PLACED ON A LIQUID DIET UNTIL THE TIME WHERE SHE COULD TOLERATE SOLID FOOD WITH OUT PASSING A BM THAT WAS BLOODY. MEDICATI ON HAS BEEN RECONSIL ED WITH THE PT AND SHE WILL F/U WITH MGD 12/21/09 .; RECORDED 10/31/19 12 2:41PM BY NICKY WOODS ON/ADDEN DUM Michelle rosario [facility] 6 11:38:21 Hemorrha ge of colon 58621050 Completed 201109/16/2013 STORY: STABLE/ STILL ANEMIC; RECORDED 10/31/19 12 2:41PM BY NICKY WOODS ON/ADDEN TORIE rosario, [facility] 6 11:38:22 Dysuria 43700786 Completed 201109/16/2013 IMPRESSI ON: 3+ LEUKOCYT ES ON UA TODAY, COMPLETE D BACTRIM 2 DAYS AGO, START CIPRO AND SEND CULTURE; RECORDED 10/31/19 12 2:41PM BY NICKY WOODS ON/ADDEN DUM Becky Norton [place] null, [facility] 7 17:01:13 Influenz a vaccine needed [id number] 06 Completed 201209/16/2013 RECORDED 04/30/19 13 2:37PM BY TEA HANDY MA, JERELATI ON/ADDEN DUM Michelle Pacousha rosario, [facility] 6 11:38:22 Follow-u p encounte r Completed 201209/16/2013 RECORDED 04/30/19 13 2:37PM BY TEA HANDY MA, NICKY ON/ADDEN DUM Michelle Pacousha rosario, [facility] 6 11:38:22 Hypo-osm olality and or hyponatr emia 859846430 Completed 201109/16/2013 RECORDED 10/31/19 12 2:41PM BY NICKY WOODS ON/EN DUM Michelle rosario, [facility] 6 11:38:21 Impacted cerumen 91944809 Completed 201209/16/2013 RECORDED 01/28/20 13 1:17PM BY ALEXANDRE AGUILAR MA, NICKY ON/ADDEN TORIE rosario, [facility] 7 17:00:46 Renewal of prescrip tion Completed 201209/16/2013 RECORDED 04/30/19 13 2:37PM BY TEA HANDY MA, NICKY ON/ADDEN DUM Michelle Pacousha rosario, [facility] 6 11:38:22 Active or passive immuniza tion Completed 200909/16/2013 RECORDED 03/01/19 10 9:56AM BY PILLO Masters NP, OFFICE VISIT Michelle rosario, [facility] 6 11:38:22 Examinat ion for suspecte d mental disorder Completed 201109/16/2013 RECORDED 10/31/19 12 2:41PM BY NICKY WOODS ON/ADDEN TORIE Ervin null, [facility] 6 11:38:22 Pre-surg girish hartmanati on Completed 201209/16/2013 IMPRESSI ON: PT IS MEDICALL Y ABLE TO UNDERGO SURGERY, NO ACTIVE ISSUES, IS ABLE TO LAY FLAT AND STILL, EKG NL AND WILL GET LABS; RECORDED 01/28/20 13 1:17PM BY ALEXANDRE AGUILAR MA, ANNOTATI ON/[facility] Degutis null, [facility] 6 11:38:22 Tachycar wesley [id number] Completed 201109/16/2013 RECORDED 10/31/19 12 2:42PM BY NICKY WOODS ON/[facility] Degutis null, [facility] 6 11:38:22 Retentio n of urine [id number] Completed 201209/16/2013 RECORDED 04/30/19 13 2:37PM BY TEA HANDY MA, ANNOTATI ON/[facility] Degutis null [facility] 6 11:38:22 Vaginiti s and vulvovag initis Completed 201109/16/2013 IMPRESSI ON: VAGINAL ITCHING AFTER COMPLETI NG ANTIBIOT ICS; RECORDED 10/31/19 12 2:42PM BY NICKY WOODS ON/[facility] Degutis null [facility] 6 11:38:22 Dermatit is Completed 09/17/[address] [facility] 7 17:00:48 Dysuria 72663334 Completed 09/17/[address] [facility] 7 17:01:13 Insomnia 626371588 Active Michelle Antonioutedouard null [facility] 6 11:38:21 Advance directiv e discusse d with patient 673142334 Completed 09/17/[address] [facility] 7 17:01:07 Polyp of colon 06812184 Active Michelle Aziza abraham [facility] 6 11:38:21 Chronic low back pain 418021007 Active [address] [facility] 9 14:22:51 Problem Notes None recorded. Procedures Surgical History Date Name Laterality Status Provider Name and Address Organization Details Recorded Time 01/21/20 19 Mini-Cog Test completed Leila Julien MA [facility] 01/20/2019 09:52:44 12/30/19 18 Most Recent Mammogram completed Leila Julien MA [facility] 01/20/2019 09:47:42 12/19/19 18 Mini-Cog Test completed Naheed Veliz [facility] 12/18/2017 13:13:25 12/02/19 17 Fall Risk Assessment completed Becky Norton MA [facility] 12/01/2016 13:22:35 12/02/19 17 Mini-Cog Test completed Becky Norton [facility] 12/01/2016 13:23:31 11/29/19 17 Mammogram both breasts completed Kimmy Yañez [facility] 12/09/2016 14:44:18 10/17/19 17 Date of Last Colonoscopy completed Paola Kendall [facility] 12/09/2016 16:54:35 10/17/19 17 Colonoscopy completed Becky Norton MA [facility] 10/24/2016 11:43:36 03/23/19 16 Fall Risk Assessment completed Becky Norton MA [facility] 03/23/2015 13:55:01 03/23/19 16 Mini-Cog Test completed Becky Norton [facility] 03/23/2015 14:02:26 03/23/19 16 Advanced Care Planning completed Becky Norton MA [facility] 03/23/2015 13:41:44 08/19/19 15 Date of Last Pap Smear completed Michelle Ervin [facility] 03/28/2015 11:40:33 02/23/19 11 Most Recent Bone Density completed Becky Norton [facility] 03/23/2015 14:07:39 02/09/19 08 Appendectomy completed Tea Kearsar[facility] 03/02/2014 10:46:37 Imaging Results Imaging Date Name Status LastModified by Organization Details LastModified Time 05/15/2017 electrocardiogram completed Infor mation not available 05/15/2017 12:36:53 06/14/2018 XR, sacrum + coccyx, 2 or more view active [facility] [address] [place], [address], 06/15/2018 15:07:23 06/14/2018 XR, lumbar spine active [facility] ([facility]) [address] [place], [address], 06/15/2018 15:07:23 Procedure Notes None recorded. Medical Equipment None Reported. Allergies Allergen ID Allergen Name Allergen Category Reaction Reaction Severity Criticality Documentation Date Start Date Code Code System Note Provider Name and Address Organization Details Recorded Time 2935 latex environme nt,medica tion rash Not available Not available 08/23/20132012 72392 91 RxNorm Becky Norton MA [facility] [place] 7 17:00:18 Medications Name Sig [...] Updated DateTime 8 154.94 cm 31.4 kg/m2 93006.4 3 g 98.7 [degF] 96 % 96 % 89 /min 118 mm[Hg] 76 mm[Hg] Becky Norton [facility] 8 11:28:28 Date Recorded Body height Body mass index (BMI) Body weight Heart rate Oxygen saturation Oxygen saturation in Arterial blood by Pulse oximetry Body temperature Systolic blood pressure Diastolic blood pressure Provider Name and Address Organization Details Last Updated DateTime 8 154.94 cm 30.8 kg/m2 99412.5 6 g 94 /min 97 % 97 % 97.5 [degF] 136 mm[Hg] 74 mm[Hg] Jovan Medina [facility] [place] 8 10:41:30 Date Recorded Body height Body mass index (BMI) Body weight Body temperature Heart rate Oxygen saturation Oxygen saturation in Arterial blood by Pulse oximetry Systolic blood pressure Diastolic blood pressure Provider Name and Address Organization Details Last Updated DateTime 8 154.94 cm 30.5 kg/m2 96517.4 7 g 97.2 [degF] 86 /min 96 % 96 % 123 mm[Hg] 72 mm[Hg] Naheed Veliz [facility] [place] 8 12:57:56 Date Recorded Body height Body mass index (BMI) Body weight Heart rate Oxygen saturation Oxygen saturation in Arterial blood by Pulse oximetry Body temperature Systolic blood pressure Diastolic blood pressure Provider Name and Address Organization Details Last Updated DateTime 9 154.94 cm 30.2 kg/m2 31665.7 8 g 92 /min 96 % 96 % 98.4 [degF] 124 mm[Hg] 78 mm[Hg] Ruby Mackey [facility] [place] 9 12:59:19 Date Recorded Body height Body mass index (BMI) Body weight Oxygen saturation Oxygen saturation in Arterial blood by Pulse oximetry Heart rate Body temperature Systolic blood pressure Diastolic blood pressure Provider Name and Address Organization Details Last Updated DateTime 9 154.94 cm 30.7 kg/m2 34140.0 6 g 96 % 96 % 81 /min 98.1 [degF] 119 mm[Hg] 67 mm[Hg] Leila Julien MA [facility] 9 09:56:35 Social History Question Answer Notes LastModified by Organizat ion Details LastModified Time Tobacco Smoking Status Former Smoker Leila Julien MA [facility] [place], [facility] 09/08/2013 11:26:06 Do You Have An Advance Directive? Yes Information not available 03/23/2015 Is Blood Transfusion Acceptable In An Emergency? Yes Information not available 03/23/2015 What Is Your Level Of Caffeine Consumption? None Information not available 03/23/2015 How Much Tobacco Do You Chew? None Information not available 12/18/2017 What Type Of Diet Are You Following? SPECIFIC Veggies, Chicken, Fruits Information not available 03/23/2015 Which Illicit Or Recreational Drugs Have You Used? None Information not available 12/18/2017 Are There Any Guns Present In Your [...] To Smoke? Yes Information not available 03/23/2015 How Much Tobacco Do You Smoke? 1 PPW [email or web address] Information not available 01/20/2019 General Stress Level Low Information not available 03/02/2014 Do You Use Sunscreen Routinely? Yes Information not available 03/23/2015 How Many Years Have You Smoked Tobacco? 15 Information not available 12/18/2017 Sex: Unknown Functional Status Question Answer Note LastModified by Organizat ion Details LastModified Time What is your level of alcohol consumption? Moderate glass of wine couple days a week Information not available 03/23/2015 Do you or have you ever used smokeless tobacco? Never used smokeless tobacco [email or web address] Information not available 01/20/2019 Are you currently employed? Yes Information not available 03/02/2014 Are you able to care for yourself? 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 Never used electronic cigarettes Information not available 01/20/2019 What is your exercise level? Moderate daily [...] conjugate PCV 13 5 completed Not Available [facility] 02/26/2019 02:21:36 Influenza, split virus, quadrivalent, PF 5 completed Becky Norton MA [facility] 03/23/2015 14:06:48 Influenza, high-dose, trivalent, PF 7 completed Not Available [facility] 02/26/2019 02:22:21 Novel [id number], all formulations 0 completed Not Available [facility] 08/23/2013 13:38:52 pneumococcal polysaccharide PPV23 0 completed Not Available [facility] 08/23/2013 13:38:52 Influenza, split virus, trivalent, preservative 0 completed Not Available [facility] 08/23/2013 13:38:52 Influenza, split virus, trivalent, preservative 1 completed Not Available [facility] 08/23/2013 13:38:52 Influenza, split virus, trivalent, preservative 2 completed Not Available [facility] 08/23/2013 13:38:52 Influenza, split virus, trivalent, preservative 3 completed Not Available [facility] 08/23/2013 13:38:52 Influenza, high-dose, trivalent, PF 8 completed Not Available [facility] 02/26/2019 02:22:14 Influenza, high-dose, trivalent, PF 9 completed Not Available [facility] 02/26/2019 02:22:09 Past Encounters Encounter ID Performer Location Encounter Start Date Encounter Closed Date Diagnosis/Indication Diagnosis SNOMED-CT Code Diagnosis ICD10 Code Diagnosis Note [id number] NICOLÁS Cheung Main Office [address] [place], [place] [address] 09/08/2013 11:14:56 09/08/2013 11:58:13 Essential hypertension 59405594 well controlled Asthma 166786551 followe d by pulethan, well controlled on symbicort Anxiety state 506715825 Impacted cerumen 30176773 successful ly removed with ear lavage 12929 autoEComm erce [address] [facility] [place] [address] 03/01/2009 00:00:00 20493 autoEComm erce [address] [facility] [place] [address] 03/29/2009 00:00:00 36297 autoEComm erce [address] [facility] [place] [address] 09/10/2009 00:00:00 50308 autoEComm erce [address] [facility] [place] [address] 11/13/2009 00:00:00 62518 autoEComm erce [address] [facility] [place] [address] 11/30/2009 00:00:00 23197 autoEComm erce [address] [facility] [place] [address] 12/21/2009 00:00:00 55571 autoEComm erce [address] [facility] [place] [address] 02/11/2010 00:00:00 85074 autoEComm erce [address] [facility] [place] [address] 05/17/2010 00:00:00 75461 autoEComm erce [address] [facility] [place] [address] 08/23/2010 00:00:00 91771 autoEComm erce [address] [facility] [place], [place] [address] 09/04/2010 00:00:00 58630 autoEComm erce [address] [facility] [place], [place] [address] 11/29/2010 00:00:00 18246 autoEComm erce [address] [facility] [place], [place] [address] 01/10/2011 00:00:00 64075 autoEComm erce [address] [facility] [place], [place] [address] 05/02/2011 00:00:00 60264 autoEComm erce [address] [facility] [place], [place] [address] 10/31/2011 00:00:00 [id number] autoEComm erce [address] [facility] [place], [place] [address] 04/29/2012 00:00:00 15074 autoEComm erce [address] [facility] [place], [place] [address] 07/15/2012 00:00:00 50469 autoEComm erce [address] [facility] [place], [place] [address] 01/27/2013 00:00:00 [id number] Ramon Callahan MD Main Office [address] [address] [place] [address] 09/26/2013 13:41:44 09/26/2013 14:55:33 Dermatitis 636287624 candidal dermatitis [id number] Ricardo medellin MD Main Office [address] [address] [place] [address] 03/02/2014 12:39:53 03/02/2014 13:42:38 Essential hypertension 64117560 Hyponatremia 31256154 pt to see Dr Pride regularly/ pt aware that she needs to stop using clorazepat e / see psych referral Anxiety state 338464382 Dysuria 54718736 [id number] Ricardo medellin MD Main Office [address] [address] [place] [address] 04/21/2014 14:46:19 04/21/2014 15:48:33 Essential hypertension 47694526 both meds helpful/ Diltiazem and lisinopril Gastroesop hageal reflux disease 225709438 pt on PPI Anxiety state 377411562 Asthma 031498268 [id number] Ricardo medellin MD Main Office [address] [address] [place] [address] 03/23/2015 13:27:48 03/23/2015 14:47:01 Adult health examination 938216091 Z00.00 At [facility] ed risk for falls 879290910 Z91.81 Advance di rective discussed with patient 812961797 Z71.89 pt will have her brother as health care proxy Essential hypertension 65781514 I10 both meds helpful/ Diltiazem and lisinopril Polyp of colon 50749086 K63.5 pt due for colonoscop y 2016 /tubular adenoma/We iss Asthma 618707682 J45.90 9 Anxiety state 153734920 F41.1 [id number] Ricardo medellin MD Main Office [address] [place] [address] 10/05/2015 12:46:12 10/05/2015 13:40:50 Essential hypertension 72749487 I10 both meds helpful/ Diltiazem and lisinopril Asthma 114757434 J45.90 9 urged pt to get flu shot soon. Anxiety state 591405577 F41.1 [id number] Ricardo medellin MD Main Office [address] [address] [place] [address] 06/19/2016 12:55:50 06/19/2016 14:13:50 Fatigue 87098633 R53.83 Abnormal weight loss 267 494539 R63.4 Diarrhea 17376600 R19.7 Nausea 990904388 R11.0 d/w pt to elevate HOB/ cont PPI Impaired f asting glycemia 796791991 R73.01 [id number] Ricardo medellin MD Main Office [address] [address] [place] [address] 10/23/2016 14:30:06 10/23/2016 15:27:24 [id number] Ricardo medellin MD Main Office [address] [address] [place] [address] 10/31/2016 13:21:48 10/31/2016 14:41:18 Lumbosacral radiculitis 46187840 M54.17 Influenza vaccine needed 9684864621 106 Z23 [id number] Ricardo medellin MD Main Office [address] [address] [place] [address] 12/01/2016 13:04:53 12/01/2016 14:09:38 Adult health examination 395454462 Z00.00 Essential hypertension 38582159 I10 both meds helpful/ Diltiazem and lisinopril Anxiety state 006529981 F41.1 [id number] Ricardo medellin MD Main Office [address] [address] [place] [address] 05/15/2017 11:16:16 05/15/2017 12:12:51 Anxiety state 094394952 F41.1 Essential hypertension 18953598 I10 both meds helpful/ Diltiazem and lisinopril Incomplete emptying of urinary bladder 131755451 R39.14 [id number] Denis Marcos [facility] Main Office [address] [address] [place] [address] 11/13/2017 10:36:20 11/13/2017 11:18:17 Anxiety state 926428319 F41.1 has been on med for 20+ years, she is taking 3.75mg daily, will try to cut the dose in half if possible. f/u in 1 month for wellness visit. Influenza vaccine needed 3010117194 106 Z23 Gastroesop hageal reflux disease 077720086 K21.9 Essential hypertension 52740957 I10 well controlled , continue meds as directed. [id number] Denis [facility] Main Office [address] [address] [place] [address] 12/18/2017 12:40:39 12/18/2017 13:46:58 Adult health examination 695911130 Z00.00 UTD, she will call [facility] for appt Varicella vaccination 68 298323 Z23 Asthma 609507388 J45.90 9 Essential hypertension 37558571 I10 well controlled , continue meds as directed. Family his tory of Hypercholesterolemia 837511888 Z83.49 Anxiety state 525581150 F41.1 has been on med for 20+ years, she is taking 3.75mg daily, will try to cut the dose in half if possible. f/u in 1 month for wellness visit. [id number] Solomon Hemphill MD Main Office [address] [facility] [address] [place] [address] 06/11/2018 12:42:51 06/11/2018 13:40:40 Low back pain 322142801 M54.5 Patient with chronic low back pain, in PT, seeing chiropract or, but wondering if she should be seeing someone else. Will check XR and refer back to [facility], she has seen them for this in the past. continue sx treatment, ibuprofen as needed. Cramp in lower limb 4499 44272 R25.2 Essential hypertension 32485728 I10 well controlled , continue meds as directed. Fatigue 35028854 R53.83 [id number] Solomon Hemphill MD Main Office [address] [facility] [address] [facility] [place] [address] 01/20/2019 09:41:15 01/20/2019 10:33:29 Adult health examination 285457119 Z00.00 hm UTD, she has mammo scheduled, needs to call [facility]. Influenza vaccine needed 0347224656 106 Z23 Impaired f asting glycemia 358952228 R73.01 in June, sugar 125 and she believes she was fasting Hyperlipidemia 93973541 E78.5 Health Concerns Section Related Observation LastModified by Organization Detai ls LastModified Time None Recorded Concern Status LastModified by Organization Details LastModified Time None Recorded Advance Directives Directive Y: Payers Encounter Date Sequence Insurance Name Policy Number Policy Menendez Covered Member ID Menendez Member ID Guarantor Name 05/15/2017 2 [place] [id number] Noris Hou [id number] Noris Hou 05/15/2017 1 [place] [employer] Noris Hou [id number] Noris Hou 11/13/2017 2 [place] [id number] Noris Hou [id number] Noris E Oparowski 11/13/2017 1 [place] [employer] [place] Noris E Oparowski [id number] 06 [id number] Noris E Oparowski 12/18/2017 2 [place] [id number] Noris E Oparowski [id number] Noris E Oparowski 12/18/2017 1 [place] [employer] [place] Noris E Oparowski [id number] 06 [id number] Noris E Oparowski 06/11/2018 2 [place] [id number] Noris E Oparowski [id number] Noris E Oparowski 06/11/2018 1 [place] Noris E Oparowski [id number] 06 [id number] Noris E Oparowski 01/20/[address] [facility] [id number] Noris E Oparowski [id number] Noris E Oparowski 01/20/2019 1 [place] Noris E Oparowski [id number] 06 [id number] Noris E Oparowski Notes Date Note Type Note Provider Name and Address Organization Details Recorded Time 05/15/2017 text/html Anxiety/Depressi onRepo rted bypatient.Quality:incr eased anxiety; pt reports that sthe plans to return to her pschologist Dr Valdes this year Severity:able to maintain relationships Associated Symptoms:no significant weight gain; mood good; 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 05/15/2017 12:16:47 11/13/2017 text/html Anxiety/Depressi onRepo rted bypatient.Quality:incr eased anxiety; stress, car trouble Severity:able to maintain relationships Context:major life stressors;family problems Associated Symptoms:no significant weight gain;high irritability;hostility ;anxiety;hypersensitiv ity;anxiety with muscle tension; pt has prison hx of benzo use , > 20 yearsNotes:+ hx nausea and diarrhea, panic attacks etc Maryanne rosario [facility] 11/13/2017 12:41:13 12/18/2017 text/html Medicare Annual Wellness [...] working on it) Ramon Callahan MD [address] [facility] [address], [place], [address], [facility] [place] 12/19/2017 16:52:49 06/11/2018 text/html [...] to strengthen legs. DR shivam Miller at [facility]. Was discharged in 2017 due to improvement with PT. 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 Since the fall her back pain is worse. NICOLÁS Fay [address] [facility] [address], [place], [address], [facility] [place] 06/11/2018 13:40:34 01/20/2019 text/html [...] states she found a new PCP in [place] but cannot be seen until May. Denis Marcos, [facility] [address] [facility] [address], [place], [address], [facility] 01/20/2019 10:57:40 OBGyn Episode No OBEpisode recorded.
== END 2024-06-24 11:26 | disposition home or self-care (01) ==
LOC: HO.ACS 10:45
PROVIDERS: PCP Family Medicine; Visit Provider Internal Medicine Medical Oncology
DX: Z79.01 Long term (current) use of anticoagulants (principal)

== ENCOUNTER → 2024-06-24 10:45 | Outpatient (BNVA) | payer MEDICARE, MEDICAID, SELFPAY | PROVIDERS: PCP Family Medicine; Visit Provider Internal Medicine Medical Oncology | DX: I26.94 Multiple subsegmental thrombotic pulmonary emboli without acute cor pulmonale (principal); Z86.718 Personal history of other venous thrombosis and embolism; Z79.01 Long term (current) use of anticoagulants; Z51.81 Encounter for therapeutic drug level monitoring | CPT/HCPCS: 85610; 99211 ==

== ENCOUNTER 2024-07-01 10:18 | Outpatient (AMB) | payer MEDICARE, MEDICAID, SELFPAY ==
--- OUTSIDE RECORDS SUMMARY | 2024-07-01 10:29 | XMS_ITS | Encounter Summary ---
Author Organization [facility] Address [address] [place] [address] Care Team Providers Care Wire Drawing Setter Name Role Phone Syd Dhillon Primary Care Provider Un available Gennaro Guillaume MD Primary Care Provider Unava sean Jordan, Pcp Primary Care Provider Adriana petersen Encounter Details Date Type Department Care Team Description 02/27/2017 Release of Information Medical Records [address] [place] [address] Abstract, Provider Social History Tobacco Use Types Packs/Day Years Used Date Smoking Tobacco: Former Cigarettes 1 15 Smokeless Tobacco: Never Sex Assigned at Date Recorded Not on file documented as of this encounter Plan of Treatment Not on file documented as of this encounter Visit Diagnoses Not on filedocumented in this encounter Care Teams Wire Drawing Setter Relationship Specialty Start Date End Date Syd Dhillon PCP - General Internal Medicine 02/20/17 9 Gennaro Guillaume MD PCP - General Internal Medicine 12/16/18 09/22/19 [facility], Pcp PCP - General Internal Medicine 09/23/19 documented as of this encounter
[2024-07-01 10:36] LABS: Prothrombin Time Whole Bld POC 30.5 sec (11.1-13.5); ~PT, ~INR - Anti Coag Clinic 2.5 (0.9-1.1)
--- NOTE | 2024-07-01 11:23 | MHC.OFFVISCO ---
Intake Intake Visit Reasons: Anticoagulation Allergies Seasonal Allergies Allergy (Mild, Verified 07/01/24 10:25) runny nose latex Allergy (Verified 07/01/24 10:25) rash Medication List - Last Reconciled 07/01/24 by Anabella Otoole RN albuterol sulfate 90 mcg/actuation 2 puffs inhalation Q8H PRN cetirizine (Zyrtec) 10 mg PO DAILY PRN cholecalciferol (vitamin D3) 50 mcg PO DAILY citalopram 20 mg PO DAILY 90 days clonazepam 0.5 mg PO BID PRN diltiazem HCl CD 120 mg PO DAILY 90 days fluticasone propionate 50 mcg/actuation (Flonase Allergy Relief) 1 spray intranasal Q12H 30 days gabapentin 300 mg PO BID losartan 12.5 mg (1/2 x 25 mg) PO DAILY 90 days omeprazole 20 mg PO DAILY tamsulosin 0.4 mg PO BEDTIME 90 days warfarin 2 mg See Protocol PO DAILY 30 days Nursing Note INR: 2.5 in therapeutic range Medications and supplements reviewed Pt nasal drsg intact she has light brown and blood tinged secretion that drain from nares, she is to have surgery July 11 2024 - [facility] contacted with question regarding holding warfarin prior procedure x 2 - call last week with msg and again today - spoke with operator receptionist Shana to cnvey question to pt sugical team. Question also if able to bridge with lovenox due to possibility of nose bleed vs clotting due to bialt lower extremity vascular disease and hx of DVT/PE post COVID and RSV. Due to risk of nose bleed maybe lower prophylactic warfarin dose 40mg sq daily with warfarin hold - will ask PCP and [facility] Surgeon. Denies any signs and symptoms of bleeding or bruising or clotting. 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 Illness/Depression: Yes (anxiety ) Coding Level of Care Code Est Patient Level 1 Diagnoses Current use of anticoagulant therapy Z79.01 Comment msg to PCP and call to [facility] for up coming procedure Results AMB INR Fingerstick AMB INR Fingerstick 2.5 Last Edit by Anabella Otoole RN on 07/01/24 10:39 manual entry Assessment & Plan Assessment & Plan (1) Current use of anticoagulant therapy: Code(s): Z79.01 - emt intermediate (current) use of anticoagulants Category: Medical
== END 2024-07-01 11:39 | disposition home or self-care (01) ==
LOC: HO.ACS 10:18
PROVIDERS: PCP Family Medicine; Visit Provider Internal Medicine Medical Oncology
DX: Z79.01 Long term (current) use of anticoagulants (principal)

== ENCOUNTER → 2024-07-01 10:18 | Outpatient (BNVA) | payer MEDICARE, MEDICAID, SELFPAY | PROVIDERS: PCP Family Medicine; Visit Provider Internal Medicine Medical Oncology | DX: I26.94 Multiple subsegmental thrombotic pulmonary emboli without acute cor pulmonale (principal); Z86.718 Personal history of other venous thrombosis and embolism; Z79.01 Long term (current) use of anticoagulants; Z51.81 Encounter for therapeutic drug level monitoring | CPT/HCPCS: 85610; 99211 ==

== ENCOUNTER 2024-07-06 09:40 | Outpatient (AMB) | payer MEDICARE, MEDICAID, SELFPAY ==
[2024-07-06 10:11] LABS: Prothrombin Time Whole Bld POC 32.3 sec (11.1-13.5); ~PT, ~INR - Anti Coag Clinic 2.7 (0.9-1.1)
--- OUTSIDE RECORDS SUMMARY | 2024-07-06 10:21 | XMS_ITS | Encounter Summary ---
Author Organization [facility] Address [address] [place] [id number] Care Team Providers Care Horticultural Specialty Grower Inside Name Role Phone Syd Dhillon Primary Care Provider Un available Gennaro Guillaume MD Primary Care Provider Unava sean Jordan, Pcp Primary Care Provider Adriana petersen Encounter Details Date Type Department Care Team Description 02/27/2017 Release of Information Medical Records [address] [place] [id number] Abstract, Provider Social History Tobacco Use Types Packs/Day Years Used Date Smoking Tobacco: Former Cigarettes 1 15 Smokeless Tobacco: Never Sex Assigned at Date Recorded Not on file documented as of this encounter Plan of Treatment Not on file documented as of this encounter Visit Diagnoses Not on filedocumented in this encounter Care Teams Horticultural Specialty Grower Inside Relationship Specialty Start Date End Date Syd Dhillon PCP - General Internal Medicine 02/20/17 9 Gennaro Guillaume MD PCP - General Internal Medicine 12/16/18 09/22/19 [facility], Pcp PCP - General Internal Medicine 09/23/19 documented as of this encounter
--- NOTE | 2024-07-06 10:37 | MHC.OFFVISCO ---
Intake Intake Visit Reasons: Anticoagulation Allergies Seasonal Allergies Allergy (Mild, Verified 07/06/24 10:04) runny nose latex Allergy (Verified 07/06/24 10:04) rash Medication List - Last Reconciled 07/06/24 by Yasmin Claire RN albuterol sulfate 90 mcg/actuation 2 puffs inhalation Q8H PRN cetirizine (Zyrtec) 10 mg PO DAILY PRN cholecalciferol (vitamin D3) 50 mcg PO DAILY citalopram 20 mg PO DAILY 90 days clonazepam 0.5 mg PO BID PRN diltiazem HCl CD 120 mg PO DAILY 90 days enoxaparin (Lovenox) 40 mg (0.4 mL) subcut DAILY 10 days fluticasone propionate 50 mcg/actuation (Flonase Allergy Relief) 1 spray intranasal Q12H 30 days gabapentin 300 mg PO BID losartan 12.5 mg (1/2 x 25 mg) PO DAILY 90 days omeprazole 20 mg PO DAILY tamsulosin 0.4 mg PO BEDTIME 90 days warfarin 2 mg See Protocol PO DAILY 30 days Nursing Note INR 2.7 TODAY. WILL BEGIN 5 DAY WARFARIN HOLD TODAY AND RECHECK INR HERE TOMORROW, INR NEEDS TO BE BELOW 2.0 TO START LOVENOX. WARFARIN/LOVENOX INSTRUCTIONS REVIEWED WITH AND GIVEN TO PT. PT.DENIES ANY ACTIVE NASAL BLEEDING. 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 Illness/Depression: Yes (anxiety ) Coding Level of Care Code Est Patient Level 1 Diagnoses Current use of anticoagulant therapy Z79.01 Assessment & Plan Assessment & Plan (1) Current use of anticoagulant therapy: Code(s): Z79.01 - long term acute care registered nurse (current) use of anticoagulants Category: Medical
== END 2024-07-06 11:28 | disposition home or self-care (01) ==
LOC: HO.ACS 09:40
PROVIDERS: PCP Family Medicine; Visit Provider Internal Medicine Medical Oncology
DX: Z79.01 Long term (current) use of anticoagulants (principal)

== ENCOUNTER → 2024-07-06 09:40 | Outpatient (BNVA) | payer MEDICARE, MEDICAID, SELFPAY | PROVIDERS: PCP Family Medicine; Visit Provider Internal Medicine Medical Oncology | DX: I26.94 Multiple subsegmental thrombotic pulmonary emboli without acute cor pulmonale (principal); Z86.718 Personal history of other venous thrombosis and embolism; Z51.81 Encounter for therapeutic drug level monitoring; Z79.01 Long term (current) use of anticoagulants | CPT/HCPCS: 85610; 99211 ==

== ENCOUNTER 2024-07-07 11:15 | Outpatient (AMB) | payer MEDICARE, MEDICAID, SELFPAY ==
[2024-07-07 11:36] LABS: Prothrombin Time Whole Bld POC 32.7 sec (11.1-13.5); ~PT, ~INR - Anti Coag Clinic 2.7 (0.9-1.1)
--- OUTSIDE RECORDS SUMMARY | 2024-07-07 11:40 | XMS_ITS | Continuity of Care Document ---
Author Organization [facility] Address [address] [place] [address] [address] [place] [address]- Care Team Providers Care Assessment Consultant Name Role Phone Basia AGUILA, Ric Greene Primary Care Physician Encounter [facility] Date(s): 06/01/24 - 07/01/24 [facility] [address] [place] [id number] Encounter Type: Triage Allergies, Adverse Reactions, Alerts Substance Criticality Severity Reaction Reaction Severity Status Latex Unable to assess criticality Unknown rash Active Immunizations Given and Recorded Vaccine Date Status Refusal Reason tetanus/diphtheria/pertussis, acel(Tdap) 10/06/22 Given tetanus/diphtheria/pertussis, acel(Tdap) 08/27/11 Recorded SARS-CoV-2 mRNA ([id number]-gyize) vax 03/29/21 Recorded SARS-CoV-2 (COVID-19) mRNA BNT-162b2 [...] 4 Refills, Maintenance, 05/12/22 11:49:00 AM EDT, [facility]/pharmacy #[id number], Partial fill upon patient request if [...] Position: S Outreach Member Role: PCP Address: [address] [place], [place] [id number]- Telecom: Care Team Related Persons Name: LUISITO LUZ Name: CLAUDIA ELENA Name: FIDENCIO MAGAÑA Insurance Providers Guarantor name: ELVER GARCIAANALIAHARRIETT Health Plan Information #: 1 Payer: MEDICARE PART B OUTPT Member Number: NA Policy Number: NA Group Number: NA Health Plan Information #: 2 Payer: MEDEX Member Number: NA Policy Number: NA Group Number: NA
--- NOTE | 2024-07-07 11:52 | MHC.OFFVISCO ---
Intake Intake Visit Reasons: Anticoagulation Allergies Seasonal Allergies Allergy (Mild, Verified 07/07/24 11:28) runny nose latex Allergy (Verified 07/07/24 11:28) rash Medication List - Last Reconciled 07/07/24 by Anabella Otoole RN albuterol sulfate 90 mcg/actuation 2 puffs inhalation Q8H PRN cetirizine (Zyrtec) 10 mg PO DAILY PRN cholecalciferol (vitamin D3) 50 mcg PO DAILY citalopram 20 mg PO DAILY 90 days clonazepam 0.5 mg PO BID PRN diltiazem HCl CD 120 mg PO DAILY 90 days enoxaparin (Lovenox) 40 mg See Protocol subcut DAILY 10 days fluticasone propionate 50 mcg/actuation (Flonase Allergy Relief) 1 spray intranasal Q12H 30 days gabapentin 300 mg PO BID losartan 12.5 mg (1/2 x 25 mg) PO DAILY 90 days omeprazole 20 mg PO DAILY tamsulosin 0.4 mg PO BEDTIME 90 days warfarin 2 mg See Protocol PO DAILY 30 days Nursing Note INR: 2.7 in therapeutic range even with holding her warfarin last night Medications and supplements reviewed Denies any signs and symptoms of bruising or clotting, has scant serosanguenous drainage Bleeding, bruising, clotting discussed Nutritional guidance given - eat cooked greens today and AVOID ANY FOODS OR FLUIDS THAT CAN RAISE YOUR INR Dose: WARFARIN ON HOLD X 5 DAYS - INR NEEDS TO BE 1.0 for surgery ( value explained to patient) F/U INR: tomorrow 07/08/2024 Pt see PCP today and having EKG Patient verbalizes understanding of instructions given Anti-Coag Initial Assessment Social Hx Patient Tobacco Use Status: Former Tobacco user (20 years quit around age 51 ) Tobacco use type: Cigarette Smoking packs per day: 1.0 alcohol intake: current Alcohol intake frequency: 0-2 drinks per day (about 2 daily with ice ) Cardiovascular Hx: HTN and Other (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 Illness/Depression: Yes (anxiety ) Coding Level of Care Code Est Patient Level 1 Diagnoses Current use of anticoagulant therapy Z79.01 Assessment & Plan Assessment & Plan (1) Current use of anticoagulant therapy: Code(s): Z79.01 - terminal gauger (current) use of anticoagulants Category: Medical
== END 2024-07-07 12:04 | disposition home or self-care (01) ==
LOC: HO.ACS 11:15
PROVIDERS: PCP Family Medicine; Visit Provider Internal Medicine Medical Oncology
DX: Z79.01 Long term (current) use of anticoagulants (principal)

== ENCOUNTER → 2024-07-07 11:15 | Outpatient (BNVA) | payer MEDICARE, MEDICAID, SELFPAY | PROVIDERS: PCP Family Medicine; Visit Provider Internal Medicine Medical Oncology | DX: I26.94 Multiple subsegmental thrombotic pulmonary emboli without acute cor pulmonale (principal); Z86.718 Personal history of other venous thrombosis and embolism; Z79.01 Long term (current) use of anticoagulants; Z51.81 Encounter for therapeutic drug level monitoring | CPT/HCPCS: 85610; 99211 ==

== ENCOUNTER 2024-07-08 13:02 | Outpatient (AMB) | payer MEDICARE, MEDICAID, SELFPAY ==
[2024-07-08 13:33] LABS: Prothrombin Time Whole Bld POC 30.7 sec (11.1-13.5); ~PT, ~INR - Anti Coag Clinic 2.6 (0.9-1.1)
--- NOTE | 2024-07-08 13:49 | MHC.OFFVISCO ---
Intake Intake Visit Reasons: Anticoagulation Allergies Seasonal Allergies Allergy (Mild, Verified 07/08/24 13:25) runny nose latex Allergy (Verified 07/08/24 13:25) rash Medication List - Last Reconciled 07/08/24 by Anabella Otoole RN albuterol sulfate 90 mcg/actuation 2 puffs inhalation Q8H PRN cetirizine (Zyrtec) 10 mg PO DAILY PRN cholecalciferol (vitamin D3) 50 mcg PO DAILY citalopram 20 mg PO DAILY 90 days clonazepam 0.5 mg PO BID PRN diltiazem HCl CD 120 mg PO DAILY 90 days enoxaparin (Lovenox) 40 mg See Protocol subcut DAILY 10 days fluticasone propionate 50 mcg/actuation (Flonase Allergy Relief) 1 spray intranasal Q12H 30 days gabapentin 300 mg PO BID losartan 12.5 mg (1/2 x 25 mg) PO DAILY 90 days omeprazole 20 mg PO DAILY tamsulosin 0.4 mg PO BEDTIME 90 days warfarin 2 mg See Protocol PO DAILY 30 days Nursing Note INR: 2.6 STILL in therapeutic range after 2 1/2 day hold tonight would be 3 days. pt has not eaten the strong vit k foods as suggested over the past few days- she had broccoli yesterday, but did not have the ensure , she will have ensure tonight. she has had beer in the evenings which may be why INR remains elevated - the liver is taking care of the alcohol instead of the warfarin. she stated she will refrain from having ETOH and eat spinache and drink the ensure to help lower the INR Medications and supplements reviewed- no changes per pt No changes in health, diet, medications, or supplements, Denies any signs and symptoms of bleeding or bruising or clotting. Bleeding, bruising, clotting discussed Nutritional guidance given - eat cooked greens as mentioned before to lower your INR more than raw greens Dose: continue to hold warfarin F/U INR: at [facility] Patient verbalizes understanding of instructions given Lovenox Thursday only- instructions given with demonstration and hand out t/c to [facility] regarding today's INR spoke with Jon to convey msg to medical team- waiting for call back Anti-Coag Initial Assessment Social Hx Patient Tobacco Use Status: Former Tobacco user (20 years quit around age 51 ) Tobacco use type: Cigarette Smoking packs per day: 1.0 alcohol intake: current Alcohol intake frequency: 0-2 drinks per day (about 2 daily with ice ) Cardiovascular Hx: HTN and Other (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 Illness/Depression: Yes (anxiety ) Coding Level of Care Code Est Patient Level 1 Diagnoses Current use of anticoagulant therapy Z79.01 Results AMB INR Fingerstick AMB INR Fingerstick 2.6 Last Edit by Anabella Otoole RN on 07/08/24 13:33 MANUAL ENTRY Assessment & Plan Assessment & Plan (1) Current use of anticoagulant therapy: Code(s): Z79.01 - penitentiary (current) use of anticoagulants Category: Medical
== END 2024-07-08 14:05 | disposition home or self-care (01) ==
PROVIDERS: PCP Family Medicine; Visit Provider Internal Medicine Medical Oncology
DX: Z79.01 Long term (current) use of anticoagulants (principal)

== ENCOUNTER → 2024-07-08 13:02 | Outpatient (BNVA) | payer MEDICARE, MEDICAID, SELFPAY | PROVIDERS: PCP Family Medicine; Visit Provider Internal Medicine Medical Oncology | DX: I26.94 Multiple subsegmental thrombotic pulmonary emboli without acute cor pulmonale (principal); Z86.718 Personal history of other venous thrombosis and embolism; Z79.01 Long term (current) use of anticoagulants; Z51.81 Encounter for therapeutic drug level monitoring | CPT/HCPCS: 85610; 99211 ==

== ENCOUNTER 2024-07-18 10:50 | Outpatient (AMB) | payer MEDICARE, MEDICAID, SELFPAY ==
[2024-07-18 11:23] LABS: Prothrombin Time Whole Bld POC 16.1 sec (11.1-13.5); ~PT, ~INR - Anti Coag Clinic 1.3 (0.9-1.1)
--- NOTE | 2024-07-18 11:48 | MHC.OFFVISCO ---
Intake Intake Visit Reasons: Anticoagulation Allergies Seasonal Allergies Allergy (Mild, Verified 07/08/24 13:25) runny nose latex Allergy (Verified 07/08/24 13:25) rash Nursing Note INR: 1.3??out of therapeutic range of 2-3 Pt is 1 week S/P Rhino and Partial Maxillary ectomy Medications and supplements reviewed Patient status: denies pain. Dsg on nose. No outward staining on dsg. Pt denies bleeding complications. States she is going back to [facility] ([place], [place]) tomorrow to remove packing. Medications or supplements: no changes Diet: usual diet for pt Denies any signs and symptoms of bleeding or clotting or unusual bruising Bleeding, bruising, clotting discussed Nutritional guidance given: avoid greens until INR therapeutic. Dose: increase today's dose to 3mg (1mg) and increase tomorrow's dose to 3mg (1mg) then 1mg and 2mg then return to recheck. F/U INR Date: 07/15/24?? Patient verbalizing understanding of instructions given. T/Feliciano Panchal at [facility] ([place], [place]). Spoke to retirement plan counselor. Msg given if okay for pt to take lovenox today with the plans to remove nasal packing tomorrow. Pt aware of plan of care. Awaiting call back from MD at [facility] ([place], [place]). 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 Illness/Depression: Yes (anxiety ) Coding Level of Care Code Est Patient Level 1 Diagnoses Current use of anticoagulant therapy Z79.01 Results AMB INR Fingerstick AMB INR Fingerstick 1.3 Last Edit by Mirella Cooley RN on 07/18/24 11:08 interface delay Assessment & Plan Assessment & Plan (1) Current use of anticoagulant therapy: Code(s): Z79.01 - FDC (current) use of anticoagulants Category: Medical
--- OUTSIDE RECORDS SUMMARY | 2024-07-18 12:15 | XMS_ITS | Encounter Summary ---
Author Organization [facility] Address [facility] [place] [address] Care Team Providers Care Automotive Leasing Sales Representative Name Role Phone Gennaro Guillaume MD Primary Care Provider Yadira Jordan, Pcp Primary Care Provider Adriana petersen Encounter Details Date Type Department Care Team Description 07/11/2019 Telephone Medicine/Pediatrics - [address] [phone] Gennaro Guillaume MD Social History Tobacco Use [...] on filedocumented in this encounter Care Teams Automotive Leasing Sales Representative Relationship Specialty Start Date End Date Gennaro Guillaume MD PCP - General Internal Medicine 12/16/18 09/22/19 Nikki, Pcp PCP - General Internal Medicine 09/23/19 documented as of this encounter
== END 2024-07-18 12:07 | disposition home or self-care (01) ==
PROVIDERS: PCP Family Medicine; Visit Provider Internal Medicine Medical Oncology
DX: Z79.01 Long term (current) use of anticoagulants (principal)

== ENCOUNTER → 2024-07-18 10:50 | Outpatient (BNVA) | payer MEDICARE, MEDICAID, SELFPAY | PROVIDERS: PCP Family Medicine; Visit Provider Internal Medicine Medical Oncology | DX: I26.94 Multiple subsegmental thrombotic pulmonary emboli without acute cor pulmonale (principal); Z79.01 Long term (current) use of anticoagulants; Z86.718 Personal history of other venous thrombosis and embolism; Z51.81 Encounter for therapeutic drug level monitoring | CPT/HCPCS: 85610; 99211 ==

== ENCOUNTER 2024-07-22 13:52 | Outpatient (AMB) | payer MEDICARE, MEDICAID, SELFPAY ==
--- OUTSIDE RECORDS SUMMARY | 2024-07-22 13:57 | XMS_ITS | Data Portability ---
Author Organization [facility], Main Office Address [address] [facility] [facility] [address] [place] [address] Care Team Providers Care Plastics Design Engineer Name Role Phone ABDIEL ORTEGA Household Appliance Installer GRACIELA MILLER Urologist [phone] ABDIEL LOZANO Draw Tender URBAN PRIDE Core Assembly Supervisor HUMBERTO SINGH Swatch Cutter [phone] RICARDO HUGHES Chiropractor [facility] Physical Therapist DENIS MARCOS Primary Care Provider Assessment No assessment recorded. Plan of Treatment Reminders Order Date Submit Date Provider Last Modified By Organization Details Last Modified Time Details Appointments None recorded. Lab HbA1c (hemoglob in A1c), blood 2018 019 [facility] (Centralized Electronic Ordering - All Locations), Patient Can Go To The Location Of Their Choice, [id number] 0 09:38:13 BMP, serum or plasma 2018 019 [employer] (Centralized Electronic Ordering - All Locations), Patient Can Go To The Location Of Their Choice, [address] 0 09:38:13 lipid panel, serum 2018 019 [employer] [facility] (Centralized Electronic Ordering - All Locations), Patient Can Go To The Location Of Their Choice, [address] 0 09:38:13 magnesium , serum or plasma [...] serum or plasma 2017 018 [facility] - [facility] Locations), Patient Can Go To The Location Of Their Choice, 11:56:02 Referral spine center referral - patient in 2017, MRI showed crowding L2 nerve root on the left, having worsenign sx of sciatic pain, low back pain, leg pains bilateral ly. 2018 [facility], [address] [place] [address], [place], [address], 17:23:40 physical therapist referral - At risk for falling 2017 [facility], [address] [place], [address], 8 16:26:43 urologist referral - pt has not seen urology in 2 years or more and wants to have consultat ion w/ urologist rather than PLANT GUIDE 2017 018 scott Crane MD, [address], [address], [place], [address], 8 13:35:13 Procedures None recorded. Surgeries None recorded. Imaging XR, lumbar spine - chronic low back pain, worsening s/p fall in february [id number] 019 [facility], [address] [place] [address], [address], 9 10:29:46 XR, sacrum + coccyx - s/p fall in february, hx low back arthritis . pain worsening 2018 019 [facility], [address] [place] [address], [address], 9 10:29:44 Medication Orders clorazepa te dipotassi um 3.75 mg tablet 2017 018 [id number], [address] [place], [address], 8 11:18:58 tamsulosi n 0.4 mg capsule 2017 018 [id number], [address] [place], [address], 8 13:01:14 clorazepa te dipotassi um 3.75 mg tablet 2017 018 [id number], [address] [place], [address], 8 12:05:21 Patient TargetsNo targets recorded. Patient Instructions Encounter Date Encounter Id Patient Instructions Last Modified By Organization Details Last Modified Time 11/13/2017 [id number] anxiety disorder: care instructions [email or web address] Not available 11/13/2017 11:18:44 call or return for worsening or concerns. [email or web address] Not available 11/13/2017 11:13:19 I have reviewed the note and agree with the assessment and plan of care. dolores Not available 11/13/2017 12:41:01 12/18/2017 [id number] preventing falls: care instructions [email or web address] Not available [...] medication. [email or web address] Not available 12/18/2017 13:20:44 06/11/2018 [id number] low back pain: exercises [email or web address] Not available 06/11/2018 13:24:20 call or return for worsening or concerns. [email or web address] Not available 06/11/2018 13:22:08 01/20/2019 [id number] preventing falls: care instructions [email or web address] Not available 01/20/2019 10:20:59 call or return for woraening or concerns. [email or web address] Not available 01/20/2019 10:20:56 Reviewed the risks and benefits of 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 opiate use, OUD discussed with the patient. Reviewed the risks and benefits of other non-opioid pain therapies. Reviewed caution with driving, fall risk, treatment for constipation. Patient verbalizes understanding of risk and benefits, and of OUD. [email or web address] Not available 01/20/2019 09:46:37 Reason for Referral Urologist Referral for Incom plete emptying of urinary bladder pt has not seen urology in 2 years or more and wants to have consultation w/ urologist rather than PLANT GUIDE Referring Physician: Ricardo Dhillon, Internal Medicine, Encounter [...] ce of an acute proces s. WSN: [id number] Dictat ed By: Delonte Barrios MD Dictat ed Date/T erlinda: 10:26 a Review ed By: Delonte Barrios MD Signed By: Delonte Barrios MD Signed Date/T erlinda: 10:26 am Transc ribed By: PASTORA Transc ribed Date/T erlinda: 10:24 am Patien t Class: Outpat ient [facility] (Outpt Imaging) [address] [place], [address], 06/15/2018 15:07:23 06/15/19 19 06/14/2018 XR, lumba [...] ce of an acute proces s. WSN: [id number] Dictat ed By: Delonte Barrios MD Dictat ed Date/T erlinda: 10:26 a Review ed By: Delonte Barrios MD Signed By: Delonte Barrios MD Signed Date/T erlinda: 10:26 am Transc ribed By: PASTORA Transc ribed Date/T erlinda: 10:24 am Patien t Class: Outpat ient [facility] (Outpt Imaging) [address] [place], [address], 06/15/2018 15:07:23 Result Notes Documentation Provider Name and Address Organization Details Recorded Time Xr, Sacrum + Coccyx, 2 Or More View : Lumbar Spine 2 or 3 Views, Sacrum and Coccyx Min 2 Views INDICATION/CLINICAL QUESTION: LOW BACK PAIN COMPARISON: Images of the lumbar spine from a CT abdomen and pelvis of 05/04/2017 FINDINGS: No bone lesions or fractures. Mild multifocal degenerative disc endplate spurring and disc space narrowing. No spondylolisthesis. Bilateral facet joint osteoarthritis throughout the lower lumbar spine. Mild degenerative changes of the sacroiliac joints, left worse than right. There are atherosclerotic vascular calcifications. IMPRESSION: Degenerative changes but no evidence of an acute process. WSN: [id number] Dictated By: Rocael Barrios MD Dictated Date/Time: 06/14/18 10:26 a Reviewed By: Rocael Barrios MD Signed By: Rocael Barrios MD Signed Date/Time: 06/14/18 10:26 am Transcribed By: PASTORA Transcribed Date/Time: 06/14/18 10:24 am Patient Class: Outpatient Denis Marcos [facility] [address] [facility] [address], [place], [address], [facility] 06/15/2018 12:48:36 Xr, Lumbar Spine : Lumbar Spine 2 or 3 Views, Sacrum and Coccyx Min 2 Views INDICATION/CLINICAL QUESTION: LOW BACK PAIN COMPARISON: Images of the lumbar spine from a CT abdomen and pelvis of 05/04/2017 FINDINGS: No bone lesions or fractures. Mild multifocal degenerative disc endplate spurring and disc space narrowing. No spondylolisthesis. Bilateral facet joint osteoarthritis throughout the lower lumbar spine. Mild degenerative changes of the sacroiliac joints, left worse than right. There are atherosclerotic vascular calcifications. IMPRESSION: Degenerative changes but no evidence of an acute process. WSN: [id number] Dictated By: Rocael Barrios MD Dictated Date/Time: 06/14/18 10:26 a Reviewed By: Rocael Barrios MD Signed By: Rocael Barrios MD Signed Date/Time: 06/14/18 10:26 am Transcribed By: PASTORA Transcribed Date/Time: 06/14/18 10:24 am Patient Class: Outpatient Denis Marcos, [facility] [address], [address], [facility] 06/15/2018 12:48:36 Problems Name Problem SNOMED Code Status Onset Date Resolution Date Notes Provider Name and Address Organization Details Recorded Time Anemia due to chronic blood loss 459249838 Completed 201108/23/2013 RECORDED 10/31/19 12 2:42PM BY NICKY WOODS ON/ADDEN DUM Michelle rosario [facility] 6 11:38:21 Anxiety state 308000037 Active 2012 Becky rosario [facility] 7 17:00:55 Tobacco user 157600213 Completed 201208/23/2013 RECORDED 01/28/20 13 1:17PM BY ALEXANDRE AGUILAR MA, ANNOTATI ON/ADDEN DUM Becky rosario [facility] 7 17:00:35 History of clinical finding in subject 042521955 Completed 201209/17/2016 RECORDED 01/28/20 13 1:17PM BY ALEXANDRE AGUILAR MA, ANNOTATI ON/ADDEN DUM Becky rosario [facility] 7 17:01:11 Asthma 334385343 Active 2012 Becky rosario [facility] 7 17:00:52 Screenin g for malignan t neoplasm of breast Completed 201410/31/2016 Dr. Susy Ortega, negative Becky Stephensroshni ELLIOTT null, [facility] 7 13:35:13 Screenin g for malignan t neoplasm of breast Completed 201108/23/2013 RECORDED 10/31/19 12 2:41PM BY VIOLA MOLINA I ANNOTATI ON/ADDEN DUM Becky Norton MA null, [facility] 7 13:35:13 Chest pain 84279313 Completed 201108/23/2013 RECORDED 10/31/19 12 2:41PM BY VIOLA MOLINA I ANNOTATI ON/ADDEN DUM Michelle Degutis null, [facility] 6 11:38:22 Screenin g for malignan t neoplasm of colon Completed 201208/23/2013 RECORDED 04/30/19 13 2:37PM BY ETA HANDY MA, ANNOTATI ON/ADDEN DUM Michelle Degutis null, [facility] 6 11:38:22 Divertic ular disease of colon 457069700 Completed 201108/23/2013 STORY: PT WAS SEEN IN OUR OFFICE 11/30/09 FOR RECTAL BLEEDING AND WAS REFERRED TO GI FOR AN EVALUATI ON. THAT EVENING EVERY TIME THE PT ATE SOMETHIN G SHE WOULD BE GOING TO THE BATHROOM TO HAVE A BM THAT WAS FILLED WITH BLOOD. AFTER A FEW TIMES THE PT TOOK HERSELF TO [facility] TO BE EVALUATE D. THE ONLY [...] 12/21/09 .; RECORDED 10/31/19 12 2:41PM BY VIOLA MOLINA I ANNOTATI ON/ADDEN DUM Michelle Degutis null, [facility] 6 11:38:21 Hemorrha ge of colon 89185867 Completed 201108/23/2013 STORY: STABLE/ STILL ANEMIC; RECORDED 10/31/19 12 2:41PM BY NICKY WOODS ON/ADDEN DUM Michelle Ervin abraham [facility] 6 11:38:22 Divertic ulitis of colon 646668193 Active 2011 Becky rosario, [facility] 7 17:00:37 Dysuria 35162754 Completed 201108/23/2013 IMPRESSI ON: 3+ LEUKOCYT ES ON UA TODAY, COMPLETE D BACTRIM 2 DAYS AGO, START CIPRO AND SEND CULTURE; RECORDED 10/31/19 12 2:41PM BY NICKY WOODS ON/ADDEN DUM Becky rosario [facility] 7 17:01:13 Gastroes ophageal reflux disease 288722632 Active 2012 Becky rosario [facility] 7 17:00:59 [facility] julisa 68658309 Active 2012 Becky rosario [facility] 7 17:01:17 Essentia l hyperten julisa 02082375 Completed 201108/23/2013 RECORDED 10/31/19 12 2:41PM BY NICKY WOODS ON/ADDEN Becky rosario [facility] 7 17:01:17 External hemorrho ids 84182149 Active 2012 Becky rosario [facility] 7 17:01:03 Influenz a vaccine needed [id number] 06 Completed 201208/23/2013 RECORDED 04/30/19 13 2:37PM BY TEA HANDY MA, ANNOTATI ON/ADDEN DUM Michelle Palmaedouard rosario [facility] 6 11:38:22 Follow-u p encounte r Completed 201208/23/2013 RECORDED 04/30/19 13 2:37PM BY TEA HANDY MA, ANNOTATI ON/ADDEN DUM Michelle Degutis abraham, [facility] 6 11:38:22 Tobacco user 755274632 Active 2012 Becky rosario, [facility] 7 17:00:35 Adult health examinat ion Completed 201209/17/2016 STORY: COLONOSC OPY DUE SS/TUBUL AR ADENOMA; RECORDED 01/28/20 13 1:58PM BY RICARDO COLE MD, OFFICE VISIT Becky rosario [facility] 7 17:01:05 Adult health examinat ion Completed 201208/23/2013 RECORDED 04/30/19 13 2:37PM BY TEA HANDY MA, NICKY ON/ADDEN DUM Becky rosario, [facility] 7 17:01:05 Hearing loss 28420534 Active 2012 Becky rosario [facility] 7 17:00:40 History of Malignan t melanoma 284014596 Active 2013 Becky rosario, [facility] 7 17:00:45 Hypo-osm olality and or hyponatr emia 110739393 Completed 201108/23/2013 RECORDED 10/31/19 12 2:41PM BY NICKY WOODS ON/ADDEN DUM Michelle Degutis abraham [facility] 6 11:38:21 Impacted cerumen 15403606 Completed 201208/23/2013 RECORDED 01/28/20 13 1:17PM BY ALEXANDRE AGUILAR MA, JERELATI ON/ADDEN DUM Becky rosario, [facility] 7 17:00:46 Irritabl e bowel syndrome 81691350 Active 2012 Becky rosario, [facility] 7 17:00:31 Renewal of prescrip tion Completed 201208/23/2013 RECORDED 04/30/19 13 2:37PM BY TEA HANDY MA, ANNOTATI ON/ADDEN DUM Michelle Ervin [facility] 6 11:38:22 Malignan t melanoma of skin 35388283 Active 2013 Becky Norton MA null, [facility] 7 17:01:28 Active or passive immuniza tion Completed 200908/23/2013 RECORDED 03/01/19 10 9:56AM BY PILLO Masters NP, OFFICE VISIT Michelle Aziza [facility] 6 11:38:22 Examinat ion for suspecte d mental disorder Completed 201108/23/2013 RECORDED 10/31/19 12 2:41PM BY NICKY WOODS ON/ADDEN DUM Michelle Aziza [facility] 6 11:38:22 Pre-surg girish junior on Completed 201208/23/2013 IMPRESSI ON: PT IS MEDICALL Y ABLE TO UNDERGO SURGERY, NO ACTIVE ISSUES, IS ABLE TO LAY FLAT AND STILL, EKG NL AND WILL GET LABS; RECORDED 01/28/20 13 1:17PM BY ALEXANDRE AGUILAR MA, ANNOTATI ON/ADDEN DUM Michelle Ervin [facility], [facility] 6 11:38:22 Tachycar wesley [id number] Completed 201108/23/2013 RECORDED 10/31/19 12 2:42PM BY NICKY WOODS ON/ADDEN DUM Michelle Aziza [facility], [facility] 6 11:38:22 Retentio n of urine 868722466 Completed 201208/23/2013 RECORDED 04/30/19 13 2:37PM BY TEA ELLIOTT HANDY ANNOTATI ON/ADDEN DUM Michelle Degutis null, [facility] 6 11:38:22 Urinary tract infectio us disease 45970815 Active 2013 Becky rosario, [facility] 7 17:01:20 Vaginiti s and vulvovag initis Completed 201108/23/2013 IMPRESSI ON: VAGINAL ITCHING AFTER COMPLETI NG ANTIBIOT ICS; RECORDED 10/31/19 12 2:42PM BY NICKY WOODS ON/ADDEN DUM Michelle Degutis null, [facility] 6 11:38:22 Impacted cerumen 17901940 Completed 09/17/2016 Becky rosario, [facility] 7 17:00:46 Hyponatr emia 06363631 Completed 09/04/2017 Dilshad Hall MD [address] [address] [address] [place] [address] 8 06:00:03 Anemia due to chronic blood loss 648803270 Completed 201109/15/2013 RECORDED 10/31/19 12 2:42PM BY NICKY WOODS ON/ADDEN DUM Michelle Degutis null, [facility] 6 11:38:21 Tobacco user [id number] Completed 201209/15/2013 RECORDED 01/28/20 13 1:17PM BY ALEXANDRE AGUILAR MA, ANNOTATI ON/ADDEN DUM Becky rosario, [facility] 7 17:00:35 Chest pain 60692394 Completed 201109/15/2013 RECORDED 10/31/19 12 2:41PM BY NICKY WOODS ON/ADDEN DUM Michelle Degutis null, [facility] 6 11:38:22 Screenin g for malignan t neoplasm of colon Completed 201209/15/2013 RECORDED 04/30/19 13 2:37PM BY TEA HANDY MA, ANNOTATI ON/ADDEN TORIE Michelle Aziza rosario [facility] 6 11:38:22 Divertic ular disease of colon 375559181 Completed 201109/15/2013 STORY: PT WAS SEEN IN OUR OFFICE 11/30/09 FOR RECTAL BLEEDING AND WAS REFERRED TO GI FOR AN EVALUATI ON. THAT EVENING EVERY TIME THE PT ATE SOMETHIN G SHE WOULD BE GOING TO THE BATHROOM TO HAVE A BM THAT WAS FILLED WITH BLOOD. AFTER A FEW TIMES THE PT TOOK HERSELF TO [facility] TO BE EVALUATE D. THE ONLY [...] RECORDED 10/31/19 12 2:41PM BY NICKY WOODS ON/CHARLIE rosario [facility] 6 11:38:21 Hemorrha ge of colon 31807156 Completed 201109/15/2013 STORY: STABLE/ STILL ANEMIC; RECORDED 10/31/19 12 2:41PM BY NICKY WOODS ON/CHARLIE rosario [facility] 6 11:38:22 Dysuria 60666673 Completed 201109/15/2013 IMPRESSI ON: 3+ LEUKOCYT ES ON UA TODAY, COMPLETE D BACTRIM 2 DAYS AGO, START CIPRO AND SEND CULTURE; RECORDED 10/31/19 12 2:41PM BY NICKY WOODS ON/ADDEN DUM Becky rosario [facility] 7 17:01:13 Influenz a vaccine needed [id number] 06 Completed 201209/15/2013 RECORDED 04/30/19 13 2:37PM BY TEA HANDY MA, NICKY ON/ADDEN DUM Michelle Degutis null, [facility] 6 11:38:22 Follow-u p encounte r Completed 201209/15/2013 RECORDED 04/30/19 13 2:37PM BY TEA HANDY MA, JERELATI ON/ADDEN DUM Michelle Degutis null, [facility] 6 11:38:22 Hypo-osm olality and or hyponatr emia 422465006 Completed 201109/15/2013 RECORDED 10/31/19 12 2:41PM BY NICKY WOODS ON/ADDEN DUM Michelle Degutis null, [facility] 6 11:38:21 Impacted cerumen 82759050 Completed 201209/15/2013 RECORDED 01/28/20 13 1:17PM BY ALEXANDRE AGUILAR MA, JERELATI ON/ADDEN DUM Becky Norton MA null, [facility] 7 17:00:46 Renewal of prescrip tion Completed 201209/15/2013 RECORDED 04/30/19 13 2:37PM BY TEA HANDY MA, JERELATI ON/ADDEN DUM Michelle Degutis [facility], [facility] 6 11:38:22 Active or passive immuniza tion Completed 200909/15/2013 RECORDED 03/01/19 10 9:56AM BY PILLO Masters NP, OFFICE VISIT Michelle Aziza [facility], [facility] 6 11:38:22 Examinat ion for suspecte d mental disorder Completed 201109/15/2013 RECORDED 10/31/19 12 2:41PM BY NICKY WOODS ON/ADDEN DUM Michelle Pacoutis null, [facility] 6 11:38:22 Pre-surg girish evaluati on Completed 201209/15/2013 IMPRESSI ON: PT IS MEDICALL Y ABLE TO UNDERGO SURGERY, NO ACTIVE ISSUES, IS ABLE TO LAY FLAT AND STILL, EKG NL AND WILL GET LABS; RECORDED 01/28/20 13 1:17PM BY ALEXANDRE AGUILAR MA, NICKY ON/ADDEN DUM Michelle Degutis null, [facility] 6 11:38:22 Tachycar wesley [id number] Completed 201109/15/2013 RECORDED 10/31/19 12 2:42PM BY NICKY WOODS ON/ADDEN DUM Michelle Degutis null, [facility] 6 11:38:22 Retentio n of urine 591296218 Completed 201209/15/2013 RECORDED 04/30/19 13 2:37PM BY TEA HANDY MA, ANNOTATI ON/ADDEN DUM Michelle Degutis null, [facility] 6 11:38:22 Vaginiti s and vulvovag initis Completed 201109/15/2013 IMPRESSI ON: VAGINAL ITCHING AFTER COMPLETI NG ANTIBIOT ICS; RECORDED 10/31/19 12 2:42PM BY NICKY WOODS ON/ADDEN DUM Michelle Degutis null, [facility] 6 11:38:22 Anemia due to chronic blood loss 505944972 Completed 201109/16/2013 RECORDED 10/31/19 12 2:42PM BY NICKY WOODS ON/ADDEN DUM Michelle Degutis null, [facility] 6 11:38:21 Tobacco user [id number] Completed 201209/16/2013 RECORDED 01/28/20 13 1:17PM BY ALEXANDRE AGUILAR MA, ANNOTATI ON/ADDEN DUM Becky Norton MA null, [facility] 7 17:00:35 Chest pain 04862555 Completed 201109/16/2013 RECORDED 10/31/19 12 2:41PM BY NICKY WOODS ON/ADDEN DUM Michelle Ervin abraham, [facility] 6 11:38:22 Screenin g for malignan t neoplasm of colon Completed 201209/16/2013 RECORDED 04/30/19 13 2:37PM BY TEA HANDY MA, JERELATI ON/ADDEN DUM Michelle Palmais abraham, [facility] 6 11:38:22 Divertic ular disease of colon 050395991 Completed 201109/16/2013 STORY: PT WAS SEEN IN OUR OFFICE 11/30/09 FOR RECTAL BLEEDING AND WAS REFERRED TO GI FOR AN EVALUATI ON. THAT EVENING EVERY TIME THE PT ATE SOMETHIN G SHE WOULD BE GOING TO THE BATHROOM TO HAVE A BM THAT WAS FILLED WITH BLOOD. AFTER A FEW TIMES THE PT TOOK HERSELF TO [facility] TO BE EVALUATE D. THE ONLY [...] BY NICKY WOODS ON/ADDEN DUM Michelle Ervin abraham, [facility] 6 11:38:21 Hemorrha ge of colon 05431754 Completed 201109/16/2013 STORY: STABLE/ STILL ANEMIC; RECORDED 10/31/19 12 2:41PM BY NICKY WOODS ON/ADDEN DUM Michelle Ervin abraham, [facility] 6 11:38:22 Dysuria 89244580 Completed 201109/16/2013 IMPRESSI ON: 3+ LEUKOCYT ES ON UA TODAY, COMPLETE D BACTRIM 2 DAYS AGO, START CIPRO AND SEND CULTURE; RECORDED 10/31/19 12 2:41PM BY NICKY WOODS ON/ADDEN TORIE rosario, [facility] 7 17:01:13 Influenz a vaccine needed [id number] 06 Completed 201209/16/2013 RECORDED 04/30/19 13 2:37PM BY TEA HANDY MA, NICKY ON/ADDEN DUM Michelle rosario, [facility] 6 11:38:22 Follow-u p encounte r Completed 201209/16/2013 RECORDED 04/30/19 13 2:37PM BY TEA HANDY MA, ANNOTATI ON/ADDEN DUM Michelle rosario, [facility] 6 11:38:22 Hypo-osm olality and or hyponatr emia 164099058 Completed 201109/16/2013 RECORDED 10/31/19 12 2:41PM BY NICKY WOODS ON/ADDEN DUM Michelle rosario [facility] 6 11:38:21 Impacted cerumen 76928183 Completed 201209/16/2013 RECORDED 01/28/20 13 1:17PM BY ALEXANDRE AGUILAR MA, NICKY ON/ADDEN DUM Becky rosario, [facility] 7 17:00:46 Renewal of prescrip tion Completed 201209/16/2013 RECORDED 04/30/19 13 2:37PM BY TEA HANDY MA, ANNOTATI ON/ADDEN DUM Michelle rosario, [facility] 6 11:38:22 Active or passive immuniza tion Completed 200909/16/2013 RECORDED 03/01/19 10 9:56AM BY PILLO Masters NP, OFFICE VISIT Michelle rosario [facility] 6 11:38:22 Examinat ion for suspecte d mental disorder Completed 201109/16/2013 RECORDED 10/31/19 12 2:41PM BY NICKY WODOS ON/ADDEN DUM Michelle Degutis null, [facility] 6 11:38:22 Pre-surg girish evaluati on Completed 201209/16/2013 IMPRESSI ON: PT IS MEDICALL Y ABLE TO UNDERGO SURGERY, NO ACTIVE ISSUES, IS ABLE TO LAY FLAT AND STILL, EKG NL AND WILL GET LABS; RECORDED 01/28/20 13 1:17PM BY ALEXANDRE AGUILAR MA, ANNOTATI ON/ADDEN DUM Michelle Degutis null, [facility] 6 11:38:22 Tachycar wesley [id number] Completed 201109/16/2013 RECORDED 10/31/19 12 2:42PM BY NICKY WOODS ON/ADDEN DUM Michelle Degutis null, [facility] 6 11:38:22 Retentio n of urine 163394584 Completed 201209/16/2013 RECORDED 04/30/19 13 2:37PM BY TEA HANDY MA, ANNOTATI ON/ADDEN DUM Michelle Degutis null, [facility] 6 11:38:22 Vaginiti s and vulvovag initis Completed 201109/16/2013 IMPRESSI ON: VAGINAL ITCHING AFTER COMPLETI NG ANTIBIOT ICS; RECORDED 10/31/19 12 2:42PM BY NICKY WOODS ON/ADDEN DUM Michelle Degutis null, [facility] 6 11:38:22 Dermatit is Completed 09/17/2016 Becky rosario [facility] 7 17:00:48 Dysuria 94513105 Completed 09/17/2016 Becky rosario [facility] 7 17:01:13 Insomnia 031372661 Active Michelle Degutis null [facility] 6 11:38:21 Advance directiv e discusse d with patient 252965275 Completed 09/17/2016 Becky rosario [facility] 7 17:01:07 Polyp of colon 25603980 Active Michelle rosario [facility] 6 11:38:21 Chronic low back pain 226430696 Active 2018 Rebeca Jeffery abraham [facility] 9 14:22:51 Problem Notes None recorded. Procedures Surgical History Date Name Laterality Status Provider Name and Address Organization Details Recorded Time 01/21/20 19 Mini-Cog Test completed Leila Julien MA [facility] 01/20/2019 09:52:44 12/30/19 18 Most Recent Mammogram completed Leila Julien MA [facility] 01/20/2019 09:47:42 12/19/19 18 Mini-Cog Test completed Naheed Veliz [facility] 12/18/2017 13:13:25 12/02/19 17 Fall Risk Assessment completed Becky Norton MA [facility] 12/01/2016 13:22:35 12/02/19 17 Mini-Cog Test completed Becky Norton MA [facility] 12/01/2016 13:23:31 11/29/19 17 Mammogram both breasts completed Kimmy Yañze [facility] 12/09/2016 14:44:18 10/17/19 17 Date of Last Colonoscopy completed Paola Kendall [facility] 12/09/2016 16:54:35 10/17/19 17 Colonoscopy completed Becky Norton MA [facility] 10/24/2016 11:43:36 03/23/19 16 Fall Risk Assessment completed Becky Norton MA [facility] 03/23/2015 13:55:01 03/23/19 16 Mini-Cog Test completed Becky Norton MA [facility] 03/23/2015 14:02:26 03/23/19 16 Advanced Care Planning completed Becky Norton MA [facility] 03/23/2015 13:41:44 07/10/20 15 Date of Last Pap Smear completed Michelle Ervin [facility] 03/28/2015 11:40:33 02/23/19 11 Most Recent Bone Density completed [facility] 03/23/2015 14:07:39 02/09/19 08 [facility]end[facility] 10:46:37 Imaging Results None recorded. Procedure Notes None recorded. Medical Equipment None Reported. Allergies Allergen ID Allergen Name Allergen Category Reaction Reaction Severity Criticality Documentation Date Start Date Code Code System Note Provider Name and Address Organization Details Recorded Time 2935 latex environme nt,medica tion rash Not available Not available 08/23/20132012 83397 91 RxNorm Becky Norton MA [facility] [place] 7 17:00:18 Medications Name Sig Start [...] 11 11:00AM BY RICARDO COLE MD, ANNOTATI ON/ADDSONALI DUM; Not Available Not Available Not Available [...] 10 3:00PM BY PILLO Masters NP, ANNOTATI ON/ DUM; Not Available Not Available Not [...] 10 2:51PM BY RICARDO COLE MD, ANNOTATI ON/ DUM; Not Available Not Available Not [...] 09/22/19 10 3:18PM BY NICKY PEREZ ON/CHARLIE VOGT; Not Available Not Available Not Available lorazepam [...] 06/08 completed RECORDED 08/03/19 10 10:21AM BY SHIRLEY JAIMES ON AUTO-BURKE CTIVATIO N;DX ASTHMA Not Available [...] Updated DateTime 8 154.94 cm 31.4 kg/m2 45432.4 3 g 98.7 [degF] 96 % 96 % 89 /min 118 mm[Hg] 76 mm[Hg] Becky Cierra [facility] 8 11:28:28 Date Recorded Body height Body mass index (BMI) Body weight Heart rate Oxygen saturation Oxygen saturation in Arterial blood by Pulse oximetry Body temperature Systolic blood pressure Diastolic blood pressure Provider Name and Address Organization Details Last Updated DateTime 9 154.94 cm 30.2 kg/m2 27082.7 8 g 92 /min 96 % 96 % 98.4 [degF] 124 mm[Hg] 78 mm[Hg] Ruby Garciau [facility] 9 12:59:19 Date Recorded Body height Body mass index (BMI) Body weight Heart rate Oxygen saturation Oxygen saturation in Arterial blood by Pulse oximetry Body temperature Systolic blood pressure Diastolic blood pressure Provider Name and Address Organization Details Last Updated DateTime 8 154.94 cm 30.8 kg/m2 55635.5 6 g 94 /min 97 % 97 % 97.5 [degF] 136 mm[Hg] 74 mm[Hg] Viola Medina [facility] 8 10:41:30 Date Recorded Body height Body mass index (BMI) Body weight Body temperature Heart rate Oxygen saturation Oxygen saturation in Arterial blood by Pulse oximetry Systolic blood pressure Diastolic blood pressure Provider Name and Address Organization Details Last Updated DateTime 8 154.94 cm 30.5 kg/m2 03773.4 7 g 97.2 [degF] 86 /min 96 % 96 % 123 mm[Hg] 72 mm[Hg] Naheed Veliz [facility] 8 12:57:56 Date Recorded Body height Body mass index (BMI) Body weight Oxygen saturation Oxygen saturation in Arterial blood by Pulse oximetry Heart rate Body temperature Systolic blood pressure Diastolic blood pressure Provider Name and Address Organization Details Last Updated DateTime 9 154.94 cm 30.7 kg/m2 28244.0 6 g 96 % 96 % 81 /min 98.1 [degF] 119 mm[Hg] 67 mm[Hg] Leila Julien [facility] 9 09:56:35 Social History Question Answer Notes LastModified by Organizat ion Details LastModified Time Tobacco Smoking Status Former Smoker Leila Julien MA [facility] 09/08/2013 11:26:06 Do You Have An [...] Much Tobacco Do You Smoke? 1 PPW [email or web address] Information not available 01/20/2019 General Stress Level [...] used smokeless tobacco? Never used smokeless tobacco [email or web address] Information not available 01/20/2019 Are you currently employed? Yes Information not available 03/02/2014 Are you able to care for yourself? 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 Never used electronic cigarettes [email or web address] Information not available 01/20/2019 What is your [...] conjugate PCV 13 5 completed Not Available [facility] 02/26/2019 02:21:36 Influenza, split virus, quadrivalent, PF 5 completed Becky rosario [facility] 03/23/2015 14:06:48 Influenza, high-dose, trivalent, PF 7 completed Not Available [facility] 02/26/2019 02:22:21 Novel [id number]-[id number], all formulations 0 completed Not Available [facility] 08/23/2013 13:38:52 pneumococcal polysaccharide PPV23 0 completed Not Available [facility] 08/23/2013 13:38:52 Influenza, split virus, trivalent, preservative 0 completed Not Available [facility] 08/23/2013 13:38:52 Influenza, split virus, trivalent, preservative 1 completed Not Available [facility] 08/23/2013 13:38:52 Influenza, split virus, trivalent, preservative 2 completed Not Available [facility] 08/23/2013 13:38:52 Influenza, split virus, trivalent, preservative 3 completed Not Available [facility] 08/23/2013 13:38:52 Influenza, high-dose, trivalent, PF 8 completed Not Available [facility] 02/26/2019 02:22:14 Influenza, high-dose, trivalent, PF 9 completed Not Available [facility] 02/26/2019 02:22:09 Past Encounters Encounter ID Performer Location Encounter Start Date Encounter Closed Date Diagnosis/Indication Diagnosis SNOMED-CT Code Diagnosis ICD10 Code Diagnosis Note [id number] NICOLÁS Cheung Main Office [address] [facility] [address] [place] [address] 09/08/2013 11:14:56 09/08/2013 11:58:13 Essential hypertension 19033038 well controlled Asthma 278229699 followe d by pulm, well controlled on symbicort Anxiety state 099627504 Impacted cerumen 41797214 successful ly removed with ear lavage [id number] [place] [address] 03/01/2009 00:00:00 [id number] [address] [place] [address] 03/29/2009 00:00:00 [id number] [facility] [facility] [address] [place] [address] 09/10/2009 00:00:00 [id number] [facility] [facility] [address] [place] [address] 11/13/2009 00:00:00 [id number] [address] [address] [place] [address] 11/30/2009 00:00:00 [id number] [facility] [facility] [address] [facility],[address] [place] [address] 12/21/2009 00:00:00 [id number] [employer] [address] [facility] [place] [address] 02/11/2010 00:00:00 [id number] [employer] [facility] [address] [facility] [place] [address] 05/17/2010 00:00:00 [id number] [employer] [address] [facility] [place] [address] 08/23/2010 00:00:00 [id number] [employer] [address] [facility] [place] [address] 09/04/2010 00:00:00 [id number] [employer] [address] [facility] [place] [address] 11/29/2010 00:00:00 [id number] [employer] [address] [facility] [place] [address] 01/10/2011 00:00:00 [id number] [employer] [address] [place] [address] 05/02/2011 00:00:00 [id number] [employer]ce [address] [facility] [place] [address] 10/31/2011 00:00:00 [id number] [employer] [address] [facility] [place] [address] 04/29/2012 00:00:00 [id number] [employer] erce [address] [facility] [place] [address] 07/15/2012 00:00:00 [id number] [employer]ce [address] [facility] [place] [address] 01/27/2013 00:00:00 [id number] Ramon Callahan MD Main Office [address] [place] [address] [place] [address] 09/26/2013 13:41:44 09/26/2013 14:55:33 Dermatitis 129116606 candidal dermatitis [id number] Ricardo medellin MD Main Office [address] [place], [place] [address] [address] 03/02/2014 12:39:53 03/02/2014 13:42:38 Essential hypertension 72877539 Hyponatremia 52003758 pt to see Dr Pride regularly/ pt aware that she needs to stop using clorazepat e / see psych referral Anxiety state 342026187 Dysuria 01344818 [id number] Ricardo medellin MD Main Office [address] [place], [place] [address] [place] [address] 04/21/2014 14:46:19 04/21/2014 15:48:33 Essential hypertension 80037194 both meds helpful/ Diltiazem and lisinopril Gastroesop hageal reflux disease 019355376 pt on PPI Anxiety state 927377105 Asthma 628079174 [id number] Ricardo medellin MD Main Office [address] [address] [place] [address] 03/23/2015 13:27:48 03/23/2015 14:47:01 Adult health examination 494938210 Z00.00 At [facility] ed risk for falls 924846369 Z91.81 Advance di rective discussed with patient 797049421 Z71.89 pt will have her brother as health care proxy Essential hypertension 36000246 I10 both meds helpful/ Diltiazem and lisinopril Polyp of colon 64001318 K63.5 pt due for colonoscop y 2016 /tubular adenoma/We iss Asthma 622856951 J45.90 9 Anxiety state 713625983 F41.1 [id number] Ricardo medellin MD Main Office [address] [address] [place] [address] 10/05/2015 12:46:12 10/05/2015 13:40:50 Essential hypertension 52116440 I10 both meds helpful/ Diltiazem and lisinopril Asthma 962800372 J45.90 9 urged pt to get flu shot soon. Anxiety state 749373463 F41.1 [id number] Ricardo medellin MD Main Office [address] [address] 06/19/2016 12:55:50 06/19/2016 14:13:50 Fatigue 12605586 R53.83 Abnormal weight loss 267 877522 R63.4 Diarrhea 03943842 R19.7 Nausea 141735617 R11.0 d/w pt to elevate HOB/ cont PPI Impaired f asting glycemia 119816809 R73.01 [id number] Ricardo medellin MD Main Office [address] [place] [address] 10/23/2016 14:30:06 10/23/2016 15:27:24 [id number] Ricardo medellin MD Main Office [address] [address] 10/31/2016 13:21:48 10/31/2016 14:41:18 Lumbosacral radiculitis 47318213 M54.17 Influenza vaccine needed 9460009645 106 Z23 [id number] Ricardo medellin MD Main Office [address] [place] [address] 12/01/2016 13:04:53 12/01/2016 14:09:38 Adult health examination 021670743 Z00.00 Essential hypertension 41198792 I10 both meds helpful/ Diltiazem and lisinopril Anxiety state 397194065 F41.1 [id number] Ricardo medellin MD Main Office [address] [address] 05/15/2017 11:16:16 05/15/2017 12:12:51 Anxiety state 947700318 F41.1 Essential hypertension 24257729 I10 both meds helpful/ Diltiazem and lisinopril Incomplete emptying of urinary bladder 728314188 R39.14 [id number] Denis Marcos [facility] Main Office [address] [address] 11/13/2017 10:36:20 11/13/2017 11:18:17 Anxiety state 199908798 F41.1 has been on med for 20+ years, she is taking 3.75mg daily, will try to cut the dose in half if possible. f/u in 1 month for wellness visit. Influenza vaccine needed 8843019843 106 Z23 Gastroesop hageal reflux disease 420074557 K21.9 Essential hypertension 95486603 I10 well controlled , continue meds as directed. 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 Family his tory of Hypercholesterolemia 398597060 Z83.49 Anxiety state 090488821 F41.1 has been on med for 20+ years, she is taking 3.75mg daily, will try to cut the dose in half if possible. f/u in 1 month for wellness visit. [id number] Solomon Hemphill MD Main Office [address] [address] 06/11/2018 12:42:51 06/11/2018 13:40:40 Low back pain 393045358 M54.5 Patient with chronic low back pain, in PT, seeing chiropract or, but wondering if she should be seeing someone else. Will check XR and refer back to [facility], she has seen them for this in the past. continue sx treatment, ibuprofen as needed. Cramp in lower limb 4499 68577 R25.2 Essential hypertension 22196631 I10 well controlled , continue meds as directed. Fatigue 96101857 R53.83 [id number] Solomon Hemphill MD Main Office [address] [facility] [place] [address] 01/20/2019 09:41:15 01/20/2019 10:33:29 Adult health examination 058961645 Z00.00 UTD, she has mammo scheduled, needs to call DIELECTRIC MACHINE OPERATOR. Influenza vaccine needed 9338274543 106 Z23 Impaired f asting glycemia 973436874 R73.01 in June, sugar 125 and she believes she was fasting Hyperlipidemia 87490789 E78.5 Health Concerns Section Related Observation LastModified by Organization Detai ls LastModified Time None Recorded Concern Status LastModified by Organization Details LastModified Time None Recorded Advance Directives Directive Y: Payers Insurance Date Sequence Insurance Name Policy Number Policy Menendez Covered Member ID Menendez Member ID Guarantor Name 09/10/2016 1 [employer] [place] - MEDICARE ADVANTAGE PLAN (MEDICARE REPLACEMENT HMO) [id number] Noris Hou [id number] Noris Hou 07/19/2019 2 [place] [id number] Noris Hou [id number] Noris Hou 07/19/2019 1 [place] [employer] Noris Hou [id number] Noris Hou Notes Date Note Type Note Provider Name and Address Organization Details Recorded Time 05/15/2017 text/html Anxiety/Depressi onRepo rted bypatient.Quality:incr eased anxiety; pt reports that sthe plans to return to her pschologist Dr Valdes this year Severity:able to maintain relationships Associated Symptoms:no significant weight gain; mood good; 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 , > 20 [...] no fever;incomplete emptying of bladder Ricardo rosario [facility] 05/15/2017 12:16:47 11/13/2017 text/html Anxiety/Depressi onRepo rted bypatient.Quality:incr eased anxiety; stress, car trouble Severity:able to maintain relationships Context:major life stressors;family problems Associated Symptoms:no significant weight gain;high irritability;hostility ;anxiety;hypersensitiv ity;anxiety with muscle tension; 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 DR saw Dr. Miller at [facility]. Was discharged in 2017 due to improvement with PT. 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 Since the fall her back pain is worse. NICOLÁS Fay [address] [address], [place], [address], [facility] [place] 06/11/2018 13:40:34 01/20/2019 text/html Medicare Annual [...] states she found a new PCP in [place] but cannot be seen until May. Denis Marcos [facility] [address] [facility] [address], [place], [address], [facility] 01/20/2019 10:57:40 OBGyn Episode No OBEpisode recorded.
[2024-07-22 14:24] LABS: Prothrombin Time Whole Bld POC 28.2 sec (11.1-13.5); ~PT, ~INR - Anti Coag Clinic 2.3 (0.9-1.1)
--- NOTE | 2024-07-22 14:26 | MHC.OFFVISCO ---
Intake Intake Visit Reasons: Anticoagulation Allergies Seasonal Allergies Allergy (Mild, Verified 07/22/24 14:11) runny nose latex Allergy (Verified 07/22/24 14:11) rash Medication List - Last Reconciled 07/22/24 by Mirella Cooley, RN albuterol sulfate 90 mcg/actuation 2 puffs inhalation Q8H PRN cetirizine (Zyrtec) 10 mg PO DAILY PRN cholecalciferol (vitamin D3) 50 mcg PO DAILY citalopram 20 mg PO DAILY 90 days clonazepam 0.5 mg PO BID PRN diltiazem HCl CD 120 mg PO DAILY 90 days enoxaparin (Lovenox) 40 mg See Protocol subcut DAILY 10 days fluticasone propionate 50 mcg/actuation (Flonase Allergy Relief) 1 spray intranasal Q12H 30 days gabapentin 300 mg PO BID losartan 12.5 mg (1/2 x 25 mg) PO DAILY 90 days omeprazole 20 mg PO DAILY tamsulosin 0.4 mg PO BEDTIME 90 days warfarin 2 mg See Protocol PO DAILY 30 days Nursing Note INR: 2.3 in therapeutic range of 2-3 Pt stopped lovenox 1-2 days ago. Previous INR 1.3 . S/P facial surgery on 07/11/24 with a 5 day hold of warfarin. Dsg on face D&I. Pt states it has been bleeding over the past day. She has [facility]NA to change the dsg at home. [facility] is reaching out to MD to do INR at home. Medications and supplements reviewed No changes in diet, medications, or supplements, Bleeding, bruising, clotting discussed Nutritional guidance given: Pt states she is taking ensure nutritional supplement and is aware that can lower the INR. 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
== END 2024-07-22 14:42 | disposition home or self-care (01) ==
LOC: HO.ACS 13:52
PROVIDERS: PCP Family Medicine; Visit Provider Internal Medicine Medical Oncology
DX: Z79.01 Long term (current) use of anticoagulants (principal)

== ENCOUNTER → 2024-07-22 13:52 | Outpatient (BNVA) | payer MEDICARE, MEDICAID, SELFPAY | PROVIDERS: PCP Family Medicine; Visit Provider Internal Medicine Medical Oncology | DX: I26.94 Multiple subsegmental thrombotic pulmonary emboli without acute cor pulmonale (principal); Z86.718 Personal history of other venous thrombosis and embolism; Z79.01 Long term (current) use of anticoagulants; Z51.81 Encounter for therapeutic drug level monitoring | CPT/HCPCS: 85610; 99211 ==

== ENCOUNTER 2024-08-05 13:49 | Outpatient (AMB) | payer MEDICARE, MEDICAID, SELFPAY ==
[2024-08-05 13:58] LABS: Prothrombin Time Whole Bld POC 33.8 sec (11.1-13.5); ~PT, ~INR - Anti Coag Clinic 2.8 (0.9-1.1)
--- NOTE | 2024-08-05 14:04 | MHC.OFFVISCO ---
Intake Intake Visit Reasons: Anticoagulation Allergies Seasonal Allergies Allergy (Mild, Verified 08/05/24 13:53) runny nose latex Allergy (Verified 08/05/24 13:53) rash Medication List - Last Reconciled 08/05/24 by Mirella Cooley RN albuterol sulfate 90 mcg/actuation 2 puffs inhalation Q8H PRN cetirizine (Zyrtec) 10 mg PO DAILY PRN cholecalciferol (vitamin D3) 50 mcg PO DAILY citalopram 20 mg PO DAILY 90 days clonazepam 0.5 mg PO BID PRN diltiazem HCl CD 120 mg PO DAILY 90 days enoxaparin (Lovenox) 40 mg See Protocol subcut DAILY 10 days fluticasone propionate 50 mcg/actuation (Flonase Allergy Relief) 1 spray intranasal Q12H 30 days Held on 02/25/24. Instructions: nose bleed gabapentin 300 mg PO BID losartan 12.5 mg (1/2 x 25 mg) PO DAILY 90 days omeprazole 20 mg PO DAILY tamsulosin 0.4 mg PO BEDTIME 90 days warfarin 2 mg See Protocol PO DAILY 30 days Nursing Note INR: 2.8 in therapeutic range of 2-3 Medications and supplements reviewed No changes in health, diet, medications, or supplements, doing well post Rhino & Partial Maxillary ectomy on 07/11/24 Pt states she will be starting radiation in mid August at [facility]. Denies any signs and symptoms of bleeding or bruising or clotting. Bleeding, bruising, clotting discussed Nutritional guidance given Dose: 1mg X 6 days and 2mg X 1 day F/U INR: 2 weeks Patient verbalizes understanding of instructions given Anti-Coag Initial Assessment Social Hx Patient Tobacco Use Status: Former Tobacco user (20 years quit around age 51 ) Tobacco use type: Cigarette Smoking packs per day: 1.0 alcohol intake: current Alcohol intake frequency: 0-2 drinks per day (about 2 daily with ice ) Cardiovascular Hx: HTN and Other (edma right foot > left foot had dvt ) Lung Disease HX: Asthma, COPD (believe r/t to work exposure and smoking) and DVT/PE (2022 after having RSV and covid vaccines- pt feels r/t to vaccines also ) Endocrine Hx: Diabetes (being monitored ) Musculoskeletal Hx: Arthritis (mostly hand - all over, ) GI Hx: Bleeding (GI, rectal) (age 60s x 2 weeks 10 blood transfusions no found cause at the time - and none since then ) and Diverticulosis Hx: Bladder Disorders (URGENCY ) and Other (UPCOMING RENAL EVALUATIONS ) Cancer 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 Illness/Depression: Yes (anxiety ) Coding Level of Care Code Est Patient Level 1 Diagnoses Current use of anticoagulant therapy Z79.01 Results AMB INR Fingerstick AMB INR Fingerstick 2.8 Last Edit by Mirella Cooley RN on 08/05/24 13:58 interface delay Assessment & Plan Assessment & Plan (1) Current use of anticoagulant therapy: Code(s): Z79.01 - retirement (current) use of anticoagulants Category: Medical
== END 2024-08-05 14:07 | disposition home or self-care (01) ==
LOC: HO.ACS 13:49
PROVIDERS: PCP Family Medicine; Visit Provider Internal Medicine Medical Oncology
DX: Z79.01 Long term (current) use of anticoagulants (principal)

== ENCOUNTER → 2024-08-05 13:49 | Outpatient (BNVA) | payer MEDICARE, MEDICAID, SELFPAY | PROVIDERS: PCP Family Medicine; Visit Provider Internal Medicine Medical Oncology | DX: I26.94 Multiple subsegmental thrombotic pulmonary emboli without acute cor pulmonale (principal); Z79.01 Long term (current) use of anticoagulants; Z86.718 Personal history of other venous thrombosis and embolism | CPT/HCPCS: 85610; 99211 ==

== ENCOUNTER 2024-08-19 13:58 | Outpatient (AMB) | payer MEDICARE, MEDICAID, SELFPAY ==
--- OUTSIDE RECORDS SUMMARY | 2024-08-19 14:03 | XMS_ITS | Data Portability ---
Author Organization [facility], Main Office Address [address] [place] [address] Care Team Providers Care Shop Superintendent Name Role Phone ABDIEL ORTEGA Technology Development Intern GRACIELA MILLER Urologist [phone] ABDIEL LOZANO Soft Sugar Cutter URBAN PRIDE Manager Room HUMBERTO SINGH Foreign Service Teacher [phone] RICARDO HUGHES Chiropractor [facility] Physical Therapist DENIS MARCOS Primary Care Provider Assessment No assessment recorded. Plan of Treatment Reminders Order Date Submit Date Provider Last Modified By Organization Details Last Modified Time Details Appointments None recorded. Lab HbA1c (hemoglob in A1c), blood 2018 019 my[facility]log [facility] (Centralized Electronic Ordering - All Locations), Patient Can Go To The Location Of Their Choice, [address] 0 09:38:13 BMP, serum or plasma 2018 019 [facility] (Centralized Electronic Ordering - All Locations), Patient Can Go To The Location Of Their Choice, [address] 0 09:38:13 lipid panel, serum 2018 019 [facility] (Centralized Electronic Ordering - All Locations), Patient Can Go To The Location Of Their Choice, [address] 0 09:38:13 magnesium , serum or plasma [...] 15:24:52 CMP, serum or plasma 2017 018 [facility] - [facility]), Patient Can Go To The Location Of Their Choice, 11:56:02 Referral spine center referral - patient in 2017, MRI showed crowding L2 nerve root on the left, having worsenign sx of sciatic pain, low back pain, leg pains bilateral ly. 2018 019 isaías [facility], [address] [place] [address], [place], [address], 9 17:23:40 physical therapist referral - At risk for falling 2017 018 [email or web address] [facility], [address] [place], [address], 8 16:26:43 urologist referral - pt has not seen urology in 2 years or more and wants to have consultat ion w/ urologist rather than HERBARIUM CURATOR 2017 018 scott Crane MD, [address], [place], [address], 8 13:35:13 Procedures None recorded. Surgeries None recorded. Imaging XR, lumbar spine - chronic low back pain, worsening s/p fall in february [id number] 019 [facility], [address] [place] [address], [address], 9 10:29:46 XR, sacrum + coccyx - s/p fall in february, hx low back arthritis . pain worsening 2018 019 [facility], [address] [place] [address], [address], 9 10:29:44 Medication Orders clorazepa te dipotassi um 3.75 mg tablet 2017 018 INTERFACE [id number], [address] [place], [address], 8 11:18:58 tamsulosi n 0.4 mg capsule 2017 018 [facility], [address] [place], [address], 8 13:01:14 clorazepa te dipotassi um 3.75 mg tablet 2017 018 INTERFACE [id number], [address] [place], [address], 8 12:05:21 Patient TargetsNo targets recorded. Patient Instructions Encounter Date Encounter Id Patient Instructions Last Modified By Organization Details Last Modified Time 11/13/2017 [id number] anxiety disorder: care instructions [email or web address] Not available 11/13/2017 11:18:44 call or return for worsening or concerns. [email or web address] Not available 11/13/2017 11:13:19 I have reviewed the note and agree with the assessment and plan of care. dolores Not available 11/13/2017 12:41:01 12/18/2017 [id number] preventing falls: care instructions [email or web address] Not available [...] medication. [email or web address] Not available 12/18/2017 13:20:44 06/11/2018 [id number] low back pain: exercises [email or web address] Not available 06/11/2018 13:24:20 call or return for worsening or concerns. [email or web address] Not available 06/11/2018 13:22:08 01/20/2019 [id number] preventing falls: care instructions [email or web address] Not available 01/20/2019 10:20:59 call or return for woraening or concerns. [email or web address] Not available 01/20/2019 10:20:56 Reviewed the risks and benefits of terminal gauger supervisor opiate use, OUD discussed with the patient. Reviewed the risks and benefits of other non-opioid pain therapies. Reviewed caution with driving, fall risk, treatment for constipation. Patient verbalizes understanding of risk and benefits, and of OUD. [email or web address] Not available 01/20/2019 09:46:37 Reason for Referral Urologist Referral for Incom plete emptying of urinary bladder pt has not seen urology in 2 years or more and wants to have consultation w/ urologist rather than HERBARIUM CURATOR Referring Physician: Ricardo Dhillon, Internal Medicine, Encounter [...] Location Of Their Choice, 09/11/2017 23:29:56 09/12/1909/11/2017 magne sium, serum or plasm a magnesium [...] ce of an acute proces s. WSN: [id number] Dictat ed By: Delonte Barrios MD Dictat ed Date/T erlinda: 10:26 a Review ed By: Delonte Barrios MD Signed By: Delonte Barrios MD Signed Date/T erlinda: 10:26 am Transc ribed By: PASTORA Transc ribed Date/T erlinda: 10:24 am Patien t Class: Outpat ient [facility] (Outpt Imaging) [address] , [place], [address], 06/15/2018 15:07:23 06/15/19 19 06/14/2018 XR, lumba [...] ce of an acute proces s. WSN: [id number] Dictat ed By: Delonte Barrios MD Dictat ed Date/T erlinda: 10:26 a Review ed By: Delonte Barrios MD Signed By: Delonte Barrios MD Signed Date/T erlinda: 10:26 am Transc ribed By: PASTORA Transc ribed Date/T erlinda: 10:24 am Patien t Class: Outpat ient [facility] (Outpt Imaging) [address] [place], [address], 06/15/2018 15:07:23 Result Notes Documentation Provider Name [...] no evidence of an acute process. WSN: [id number] Dictated By: Rocael Barrios MD Dictated Date/Time: 06/14/18 10:26 a Reviewed By: Rocale Barrios MD Signed By: Rocael Barrios MD Signed Date/Time: 06/14/18 10:26 am Transcribed By: PASTORA Transcribed Date/Time: 06/14/18 10:24 am Patient Class: Outpatient NICOLÁS Fay [id number] [facility] [facility] [address], [place], [address], [facility] 06/15/2018 12:48:36 Xr, Lumbar Spine : Lumbar [...] no evidence of an acute process. WSN: [id number] Dictated By: Rocael Barrios MD Dictated Date/Time: 06/14/18 10:26 a Reviewed By: Rocael Barrios MD Signed By: Rocael Barrios MD Signed Date/Time: 06/14/18 10:26 am Transcribed By: PASTORA Transcribed Date/Time: 06/14/18 10:24 am Patient Class: Outpatient Denis Marcos, [facility] [address], [address], [facility] 06/15/2018 12:48:36 Problems Name Problem SNOMED Code Status Onset Date Resolution Date Notes Provider Name and Address Organization Details Recorded Time Anemia due to chronic blood loss 451398657 Completed 201108/23/2013 RECORDED 10/31/19 12 2:42PM BY NICKY WOODS ON/ADDEN DUM Michelle rosario [facility] 6 11:38:21 Anxiety state 603113750 Active 2012 Becky rosario [facility] 7 17:00:55 Tobacco user [id number] Completed 201208/23/2013 RECORDED 01/28/20 13 1:17PM BY ALEXANDRE AGUILAR MA, ANNOTATI ON/ADDEN DUM Becky rosario [facility] 7 17:00:35 History of clinical finding in subject [id number] Completed 201209/17/2016 RECORDED 01/28/20 13 1:17PM BY ALEXANDRE AGUILAR MA, ANNOTATI ON/ADDEN DUM Becky rosario [facility] 7 17:01:11 Asthma 171017206 Active 2012 Becky rosario [facility] 7 17:00:52 Screenin g for malignan t neoplasm of breast Completed 201410/31/2016 Dr. Susy Ortega, negative Becky Norton MA null, [facility] 7 13:35:13 Screenin g for malignan t neoplasm of breast Completed 201108/23/2013 RECORDED 10/31/19 12 2:41PM BY VIOLA MOLINA I ANNOTATI ON/ADDEN DUM Becky Norton MA null, [facility] 7 13:35:13 Chest pain 03507088 Completed 201108/23/2013 RECORDED 10/31/19 12 2:41PM BY VIOLA MLOINA I ANNOTATI ON/ADDEN DUM Michelle Degutis null, [facility] 6 11:38:22 Screenin g for malignan t neoplasm of colon Completed 201208/23/2013 RECORDED 04/30/19 13 2:37PM BY TEA HANDY MA, ANNOTATI ON/ADDEN DUM Michelle Degutis null, [facility] 6 11:38:22 Divertic ular disease of colon 552253779 Completed 201108/23/2013 STORY: PT WAS SEEN IN OUR OFFICE 11/30/09 FOR RECTAL BLEEDING AND WAS REFERRED TO GI FOR AN EVALUATI ON. THAT EVENING EVERY TIME THE PT ATE SOMETHIN G SHE WOULD BE GOING TO THE BATHROOM TO HAVE A BM THAT WAS FILLED WITH BLOOD. AFTER A FEW TIMES THE PT TOOK HERSELF TO [facility] TO BE EVALUATE D. THE ONLY SX THAT THE PT FELT WAS BLOATING AND CRAMPING EVERYTIM E SHE ATE. PT HAD TO UNDERGO A COLONOSC OPY WITCH SHOWED THAT THE PT HAD BLEEDING COMING FROM THE ASCENDIN G,DESCEN DING, AND TRANSVER SE COLON. PT WAS LATER TRANSFER RED TO [facility] TO BE WATCHED CLOSELY. PT WAS THEN PLACED ON A LIQUID DIET UNTIL THE TIME WHERE SHE COULD TOLERATE SOLID FOOD WITH OUT PASSING A BM THAT WAS BLOODY. MEDICATI ON HAS BEEN RECONSIL ED WITH THE PT AND SHE WILL F/U WITH MGD 12/21/09 .; RECORDED 10/31/19 12 2:41PM BY JEREL WOODSATI ON/ADDEN DUM Michelle Degutis null, [facility] 6 11:38:21 Hemorrha ge of colon 25496696 Completed 201108/23/2013 STORY: STABLE/ STILL ANEMIC; RECORDED 10/31/19 12 2:41PM BY NICKY WOODS ON/ADDEN DUM Michelle Antonioutedouard rosario [facility] 6 11:38:22 Divertic ulitis of colon 864902472 Active 2011 Becky rosario, [facility] 7 17:00:37 Dysuria 35774726 Completed 201108/23/2013 IMPRESSI ON: 3+ LEUKOCYT ES ON UA TODAY, COMPLETE D BACTRIM 2 DAYS AGO, START CIPRO AND SEND CULTURE; RECORDED 10/31/19 12 2:41PM BY NICKY WOODS ON/ADDEN DUM Becky rosario [facility] 7 17:01:13 Gastroes ophageal reflux disease 611468027 Active 2012 Becky rosario [facility] 7 17:00:59 [facility] l hyperten julisa 95459972 Active 2012 Becky rosario [facility] 7 17:01:17 Essentia l hyperten julisa 22987549 Completed 201108/23/2013 RECORDED 10/31/19 12 2:41PM BY NICKY WOODS ON/ADDEN DUM Becky rosario [facility] 7 17:01:17 External hemorrho ids 45017533 Active 2012 Becky rosario [facility] 7 17:01:03 Influenz a vaccine needed [id number] 06 Completed 201208/23/2013 RECORDED 04/30/19 13 2:37PM BY TEA HANDY MA, ANNOTATI ON/ADDEN DUM Michelle Palmaedouard rosario [facility] 6 11:38:22 Follow-u p encounte r Completed 201208/23/2013 RECORDED 04/30/19 13 2:37PM BY TEA HANDY MA, JERELATI ON/ADDEN DUM Michelle Degutis abraham, [facility] 6 11:38:22 Tobacco user 265184165 Active 2012 Becky rosario, [facility] 7 17:00:35 Adult health examinat ion Completed 201209/17/2016 STORY: COLONOSC OPY DUE SS/TUBUL AR ADENOMA; RECORDED 01/28/20 13 1:58PM BY RICARDO COLE MD, OFFICE VISIT Becky rosario, [facility] 7 17:01:05 Adult health examinat ion Completed 201208/23/2013 RECORDED 04/30/19 13 2:37PM BY TEA HANDY MA, NICKY ON/ADDEN DUM Becky rosario, [facility] 7 17:01:05 Hearing loss 14074039 Active 2012 Becky rosario [facility] 7 17:00:40 History of Malignan t melanoma 064687424 Active 2013 Becky rosario, [facility] 7 17:00:45 Hypo-osm olality and or hyponatr emia 233544915 Completed 201108/23/2013 RECORDED 10/31/19 12 2:41PM BY NICKY WOODS ON/ADDEN DUM Michelle Degutis null, [facility] 6 11:38:21 Impacted cerumen 25917342 Completed 201208/23/2013 RECORDED 01/28/20 13 1:17PM BY ALEXANDRE AGUILAR MA, ANNOTATI ON/ADDEN DUM Becky rosario, [facility] 7 17:00:46 Irritabl e bowel syndrome 69448936 Active 2012 Becky rosario, [facility] 7 17:00:31 Renewal of prescrip tion Completed 201208/23/2013 RECORDED 04/30/19 13 2:37PM BY TEA HANDY MA, JERELATI ON/ADDEN DUM Michelle Aziza [facility], [facility] 6 11:38:22 Malignan t melanoma of skin 78788518 Active 2013 Becky rosario, [facility] 7 17:01:28 Active or passive immuniza tion Completed 200908/23/2013 RECORDED 03/01/19 10 9:56AM BY PILLO Masters NP, OFFICE VISIT Michelle Aziza [facility], [facility] 6 11:38:22 Examinat ion for suspecte d mental disorder Completed 201108/23/2013 RECORDED 10/31/19 12 2:41PM BY NICKY WOODS ON/ADDEN DUM Michelle Aziza [facility] 6 11:38:22 Pre-surg girish evalunaun on Completed 201208/23/2013 IMPRESSI ON: PT IS MEDICALL Y ABLE TO UNDERGO SURGERY, NO ACTIVE ISSUES, IS ABLE TO LAY FLAT AND STILL, EKG NL AND WILL GET LABS; RECORDED 01/28/20 13 1:17PM BY ALEXANDRE AGUILAR MA, JERELATI ON/ADDEN DUM Michelle Palmais [facility], [facility] 6 11:38:22 Tachycar wesley [id number] Completed 201108/23/2013 RECORDED 10/31/19 12 2:42PM BY NICKY WOODS ON/ADDEN [facility] Michelle Antonioutis null, [facility] 6 11:38:22 Retentio n of urine 722424825 Completed 201208/23/2013 RECORDED 04/30/19 13 2:37PM BY TEA HANDY MA, ANNOTATI ON/ADDEN DUM Michelle Degutis abraham, [facility] 6 11:38:22 Urinary tract infectio us disease 56576153 Active 2013 Becky rosario, [facility] 7 17:01:20 Vaginiti s and vulvovag initis Completed 201108/23/2013 IMPRESSI ON: VAGINAL ITCHING AFTER COMPLETI NG ANTIBIOT ICS; RECORDED 10/31/19 12 2:42PM BY NICKY WOODS ON/ADDEN DUM Michelle Degutis null, [facility] 6 11:38:22 Impacted cerumen 06829825 Completed 09/17/2016 Becky rosario, [facility] 7 17:00:46 Hyponatr emia 98668749 Completed 09/04/2017 Dilshad Hall MD [address], [address] [place] [address] 8 06:00:03 Anemia due to chronic blood loss 771234989 Completed 201109/15/2013 RECORDED 10/31/19 12 2:42PM BY NICKY WOODS ON/ADDEN DUM Michelle Degutis null, [facility] 6 11:38:21 Tobacco user 978928713 Completed 201209/15/2013 RECORDED 01/28/20 13 1:17PM BY ALEXANDRE AGUILAR MA, ANNOTATI ON/ADDEN DUM Becky rosario, [facility] 7 17:00:35 Chest pain 57088968 Completed 201109/15/2013 RECORDED 10/31/19 12 2:41PM BY NICKY WOODS ON/ADDEN DUM Michelle Degutis null, [facility] 6 11:38:22 Screenin g for malignan t neoplasm of colon Completed 201209/15/2013 RECORDED 04/30/19 13 2:37PM BY TEA HANDY MA, ANNOTATI ON/ADDEN TORIE rosario [facility] 6 11:38:22 Divertic ular disease of colon 176002371 Completed 201109/15/2013 STORY: PT WAS SEEN IN OUR OFFICE 11/30/09 FOR RECTAL BLEEDING AND WAS REFERRED TO GI FOR AN EVALUATI ON. THAT EVENING EVERY TIME THE PT ATE SOMETHIN G SHE WOULD BE GOING TO THE BATHROOM TO HAVE A BM THAT WAS FILLED WITH BLOOD. AFTER A FEW TIMES THE PT TOOK HERSELF TO [facility] TO BE EVALUATE D. THE ONLY SX THAT THE PT FELT WAS BLOATING AND CRAMPING EVERYTIM E SHE ATE. PT HAD TO UNDERGO A COLONOSC OPY WITCH SHOWED THAT THE PT HAD BLEEDING COMING FROM THE ASCENDIN G,DESCEN DING, AND TRANSVER SE COLON. PT WAS LATER TRANSFER RED TO [facility] TO BE WATCHED CLOSELY. PT WAS THEN PLACED ON A LIQUID DIET UNTIL THE TIME WHERE SHE COULD TOLERATE SOLID FOOD WITH OUT PASSING A BM THAT WAS BLOODY. MEDICATI ON HAS BEEN RECONSIL ED WITH THE PT AND SHE WILL F/U WITH MGD 12/21/09 .; RECORDED 10/31/19 12 2:41PM BY NICKY WOODS ON/ADDEN TORIE rosario [facility] 6 11:38:21 Hemorrha ge of colon 09157782 Completed 201109/15/2013 STORY: STABLE/ STILL ANEMIC; RECORDED 10/31/19 12 2:41PM BY NICKY WOODS ON/ADDEN DUM Michelle rosario [facility] 6 11:38:22 Dysuria 83398224 Completed 201109/15/2013 IMPRESSI ON: 3+ LEUKOCYT ES ON UA TODAY, COMPLETE D BACTRIM 2 DAYS AGO, START CIPRO AND SEND CULTURE; RECORDED 10/31/19 12 2:41PM BY NICKY WOODS ON/ADDEN DUM Becky rosario [facility] 7 17:01:13 Influenz a vaccine needed [id number] 06 Completed 201209/15/2013 RECORDED 04/30/19 13 2:37PM BY TEA HANDY MA, NICKY ON/ADDEN DUM Michelle Degutis null, [facility] 6 11:38:22 Follow-u p encounte r Completed 201209/15/2013 RECORDED 04/30/19 13 2:37PM BY TEA HANDY MA, NICKY ON/ADDEN DUM Michelle Degutis null, [facility] 6 11:38:22 Hypo-osm olality and or hyponatr emia 044315261 Completed 201109/15/2013 RECORDED 10/31/19 12 2:41PM BY NICKY WOODS ON/ADDEN DUM Michelle Degutis null, [facility] 6 11:38:21 Impacted cerumen 38634779 Completed 201209/15/2013 RECORDED 01/28/20 13 1:17PM BY ALEXANDRE AGUILAR MA, NICKY ON/ADDEN DUM Becky Norton MA null, [facility] 7 17:00:46 Renewal of prescrip tion Completed 201209/15/2013 RECORDED 04/30/19 13 2:37PM BY TEA HANDY MA, NICKY ON/ADDEN DUM Michelle Degutis null, [facility] 6 11:38:22 Active or passive immuniza tion Completed 200909/15/2013 RECORDED 03/01/19 10 9:56AM BY PILLO Masters NP, OFFICE VISIT Michelle rosario, [facility] 6 11:38:22 Examinat ion for suspecte d mental disorder Completed 201109/15/2013 RECORDED 10/31/19 12 2:41PM BY NICKY WOODS ON/ADDEN DUM Michelle Degutis null, [facility] 6 11:38:22 Pre-surg girish evaluati on Completed 201209/15/2013 IMPRESSI ON: PT IS MEDICALL Y ABLE TO UNDERGO SURGERY, NO ACTIVE ISSUES, IS ABLE TO LAY FLAT AND STILL, EKG NL AND WILL GET LABS; RECORDED 01/28/20 13 1:17PM BY ALEXANDRE AGUILAR MA, NICKY ON/ADDEN DUM Michelle Degutis null, [facility] 6 11:38:22 Tachycar wesley [id number] Completed 201109/15/2013 RECORDED 10/31/19 12 2:42PM BY NICKY WOODS ON/ADDEN DUM Michelle Degutis null, [facility] 6 11:38:22 Retentio n of urine 429570769 Completed 201209/15/2013 RECORDED 04/30/19 13 2:37PM BY TEA HANDY MA, ANNOTATI ON/ADDEN DUM Michelle Degutis null, [facility] 6 11:38:22 Vaginiti s and vulvovag initis Completed 201109/15/2013 IMPRESSI ON: VAGINAL ITCHING AFTER COMPLETI NG ANTIBIOT ICS; RECORDED 10/31/19 12 2:42PM BY NICKY WOODS ON/ADDEN DUM Michelle Degutis null, [facility] 6 11:38:22 Anemia due to chronic blood loss 935163379 Completed 201109/16/2013 RECORDED 10/31/19 12 2:42PM BY NICKY WOODS ON/ADDEN DUM Michelle Degutis null, [facility] 6 11:38:21 Tobacco user 609082858 Completed 201209/16/2013 RECORDED 01/28/20 13 1:17PM BY ALEXANDRE AGUILAR MA, NICKY ON/ADDEN DUM Becky Norton MA null, [facility] 7 17:00:35 Chest pain 15498030 Completed 201109/16/2013 RECORDED 10/31/19 12 2:41PM BY JEREL OWODSATI ON/ADDEN DUM Michelle Degutis null, [facility] 6 11:38:22 Screenin g for malignan t neoplasm of colon Completed 201209/16/2013 RECORDED 04/30/19 13 2:37PM BY TEA HANDY MA, ANNOTATI ON/ADDEN DUM Michelle Degutis null, [facility] 6 11:38:22 Divertic ular disease of colon 161471339 Completed 201109/16/2013 STORY: PT WAS SEEN IN OUR OFFICE 11/30/09 FOR RECTAL BLEEDING AND WAS REFERRED TO GI FOR AN EVALUATI ON. THAT EVENING EVERY TIME THE PT ATE SOMETHIN G SHE WOULD BE GOING TO THE BATHROOM TO HAVE A BM THAT WAS FILLED WITH BLOOD. AFTER A FEW TIMES THE PT TOOK HERSELF TO [facility] TO BE EVALUATE D. THE ONLY SX THAT THE PT FELT WAS BLOATING AND CRAMPING EVERYTIM E SHE ATE. PT HAD TO UNDERGO A COLONOSC OPY WITCH SHOWED THAT THE PT HAD BLEEDING COMING FROM THE ASCENDIN G,DESCEN DING, AND TRANSVER SE COLON. PT WAS LATER TRANSFER RED TO [facility] TO BE WATCHED CLOSELY. PT WAS THEN PLACED ON A LIQUID DIET UNTIL THE TIME WHERE SHE COULD TOLERATE SOLID FOOD WITH OUT PASSING A BM THAT WAS BLOODY. MEDICATI ON HAS BEEN RECONSIL ED WITH THE PT AND SHE WILL F/U WITH MGD 12/21/09 .; RECORDED 10/31/19 12 2:41PM BY NICKY WOODS ON/ADDEN DUM Michelle Degutis null, [facility] 6 11:38:21 Hemorrha ge of colon 21513716 Completed 201109/16/2013 STORY: STABLE/ STILL ANEMIC; RECORDED 10/31/19 12 2:41PM BY NICKY WOODS ON/ADDEN DUM Michelle Degutis null, [facility] 6 11:38:22 Dysuria 78424719 Completed 201109/16/2013 IMPRESSI ON: 3+ LEUKOCYT ES ON UA TODAY, COMPLETE D BACTRIM 2 DAYS AGO, START CIPRO AND SEND CULTURE; RECORDED 10/31/19 12 2:41PM BY NICKY WOODS ON/ADDEN TORIE rosario, [facility] 7 17:01:13 Influenz a vaccine needed [id number] 06 Completed 201209/16/2013 RECORDED 04/30/19 13 2:37PM BY TEA HANDY MA, ANNOTATI ON/ADDEN DUM Michelle rosario [facility] 6 11:38:22 Follow-u p encounte r Completed 201209/16/2013 RECORDED 04/30/19 13 2:37PM BY TEA HANDY MA, ANNOTATI ON/ADDEN TORIE rosario [facility] 6 11:38:22 Hypo-osm olality and or hyponatr emia 319897928 Completed 201109/16/2013 RECORDED 10/31/19 12 2:41PM BY NICKY WOODS ON/CHARLIE rosario [facility] 6 11:38:21 Impacted cerumen 24444345 Completed 201209/16/2013 RECORDED 01/28/20 13 1:17PM BY ALEXANDRE AGUILAR MA, NICKY ON/ADDEN TORIE rosario, [facility] 7 17:00:46 Renewal of prescrip tion Completed 201209/16/2013 RECORDED 04/30/19 13 2:37PM BY TEA HANDY MA, NICKY ON/AMILCAREN DUM Michelle rosario, [facility] 6 11:38:22 Active or passive immuniza tion Completed 200909/16/2013 RECORDED 03/01/19 10 9:56AM BY PILLO Masters NP, OFFICE VISIT Michelle rosario [facility] 6 11:38:22 Examinat ion for suspecte d mental disorder Completed 201109/16/2013 RECORDED 10/31/19 12 2:41PM BY NICKY WOODS ON/ADDEN DUM Michelle Degutis null, [facility] 6 11:38:22 Pre-surg girish evaluati on Completed 201209/16/2013 IMPRESSI ON: PT IS MEDICALL Y ABLE TO UNDERGO SURGERY, NO ACTIVE ISSUES, IS ABLE TO LAY FLAT AND STILL, EKG NL AND WILL GET LABS; RECORDED 01/28/20 13 1:17PM BY ALEXANDRE AGUILAR MA, ANNOTATI ON/ADDEN DUM Michelle Degutis null, [facility] 6 11:38:22 Tachycar wesley [id number] Completed 201109/16/2013 RECORDED 10/31/19 12 2:42PM BY NICKY WOODS ON/ADDEN DUM Imchelle Degutis null, [facility] 6 11:38:22 Retentio n of urine 955951175 Completed 201209/16/2013 RECORDED 04/30/19 13 2:37PM BY TEA HANDY MA, ANNOTATI ON/ADDEN [facility] Michelle Degutis null, [facility] 6 11:38:22 Vaginiti s and vulvovag initis Completed 201109/16/2013 IMPRESSI ON: VAGINAL ITCHING AFTER COMPLETI NG ANTIBIOT ICS; RECORDED 10/31/19 12 2:42PM BY NICKY WOODS ON/ADDEN DUM Michelle Degutis null, [facility] 6 11:38:22 Dermatit is Completed 09/17/2016 Becky rosario [facility] 7 17:00:48 Dysuria 34636697 Completed 09/17/2016 Becky rosario [facility] 7 17:01:13 Insomnia 957123437 Active Michelle Degutis null, [facility] 6 11:38:21 Advance directiv e discusse d with patient 276356818 Completed 09/17/2016 Becky rosario [facility] 7 17:01:07 Polyp of colon 76656163 Active Michelle rosario [facility] 6 11:38:21 Chronic low back pain 602360079 Active 2018 Rebeca Jeffery abraham [facility] 9 14:22:51 Problem Notes None recorded. Procedures Surgical History Date Name Laterality Status Provider Name and Address Organization Details Recorded Time 01/21/20 19 Mini-Cog Test completed Leila Julien MA [facility] 01/20/2019 09:52:44 12/30/19 18 Most Recent Mammogram completed Leila Julien MA [facility] 01/20/2019 09:47:42 12/19/19 18 Mini-Cog Test completed Naheed Veliz [facility] 12/18/2017 13:13:25 12/02/19 17 Fall Risk Assessment completed Becky Norton MA [facility] 12/01/2016 13:22:35 12/02/19 17 Mini-Cog Test completed Becky Norton MA [facility] 12/01/2016 13:23:31 11/29/19 17 Mammogram both breasts completed Kimmy Yañez [facility] 12/09/2016 14:44:18 10/17/19 17 Date of Last Colonoscopy completed Paola Kendall [facility] 12/09/2016 16:54:35 10/17/19 17 Colonoscopy completed Becky Norton MA [facility] 10/24/2016 11:43:36 03/23/19 16 Fall Risk Assessment completed Becky Norton MA [facility] 03/23/2015 13:55:01 03/23/19 16 Mini-Cog Test completed Becky Norton MA [facility] 03/23/2015 14:02:26 03/23/19 16 Advanced Care Planning completed Becky Norton MA [facility] 03/23/2015 13:41:44 08/19/19 15 Date of Last Pap Smear completed Michelle Ervin [facility] 03/28/2015 11:40:33 02/23/19 11 Most Recent Bone Density completed Becky Norton MA [facility] 03/23/2015 14:07:39 02/09/19 08 Appendectomy completed Tea Handy [facility] 03/02/2014 10:46:37 Imaging Results None recorded. Procedure Notes None recorded. Medical Equipment None Reported. Allergies Allergen ID Allergen Name Allergen Category Reaction Reaction Severity Criticality Documentation Date Start Date Code Code System Note Provider Name and Address Organization Details Recorded Time 2935 latex environme nt,medica tion rash Not available Not available 08/23/20132012 53381 91 RxNorm Beckybridger Norton MA [facility] 7 17:00:18 Medications Name Sig Start Date [...] 03/29/19 10 3:00PM BY PILLO Masters [facility]; Not Available Not Available Not [...] 12/22/19 10 2:51PM BY RICARDO COLE MD, [facility]; Not Available Not Available Not [...] blood by Pulse oximetry Heart rate Systolic And Diastolic Provider Name and Address Organization Details Last Updated DateTime 8 154.94 cm 31.4 kg/m2 90431.4 3 g 98.7 [degF] 96 % 96 % 89 /min 118/76 mm[Hg] Becky Norton [facility] 8 11:28:28 Date Recorded Body height Body mass index (BMI) Body weight Heart rate Oxygen saturation Oxygen saturation in Arterial blood by Pulse oximetry Body temperature Systolic And Diastolic Provider Name and Address Organization Details Last Updated DateTime 9 154.94 cm 30.2 kg/m2 28201.7 8 g 92 /min 96 % 96 % 98.4 [degF] 124/78 mm[Hg] [facility] 9 12:59:19 Date Recorded Body height Body mass index (BMI) Body weight Heart rate Oxygen saturation Oxygen saturation in Arterial blood by Pulse oximetry Body temperature Systolic And Diastolic Provider Name and Address Organization Details Last Updated DateTime 8 154.94 cm 30.8 kg/m2 79580.5 6 g 94 /min 97 % 97 % 97.5 [degF] 136/74 mm[Hg] Viola Medina [facility] 8 10:41:30 Date Recorded Body height Body mass index (BMI) Body weight Body temperature Heart rate Oxygen saturation Oxygen saturation in Arterial blood by Pulse oximetry Systolic And Diastolic Provider Name and Address Organization Details Last Updated DateTime 8 154.94 cm 30.5 kg/m2 41623.4 7 g 97.2 [degF] 86 /min 96 % 96 % 123/72 mm[Hg] Naheed Jose Alfredo [facility] 8 12:57:56 Date Recorded Body height Body mass index (BMI) Body weight Oxygen saturation Oxygen saturation in Arterial blood by Pulse oximetry Heart rate Body temperature Systolic And Diastolic Provider Name and Address Organization Details Last Updated DateTime 9 154.94 cm 30.7 kg/m2 92615.0 6 g 96 % 96 % 81 /min 98.1 [degF] 119/67 mm[Hg] Leila Julien [facility] 9 09:56:35 Social History Question Answer Notes LastModified by Organizat ion Details LastModified Time Tobacco Smoking Status Former Smoker ELLIOTT Plascencia [facility] 09/08/2013 11:26:06 Do You Have An Advance [...] Much Tobacco Do You Smoke? 1 PPW [email or web address] Information not available 01/20/2019 General Stress Level [...] used smokeless tobacco? Never used smokeless tobacco [email or web address] Information not available 01/20/2019 Are you currently employed? Yes Information not available 03/02/2014 Are you able to care for yourself? 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 Never used electronic cigarettes [email or web address] Information not available 01/20/2019 What is your [...] conjugate PCV 13 5 completed Not Available [facility] 02/26/2019 02:21:36 Influenza, split virus, quadrivalent, PF 5 completed Becky rosario [facility] 03/23/2015 14:06:48 Influenza, high-dose, trivalent, PF 7 completed Not Available [facility] 02/26/2019 02:22:21 Novel [id number]-[id number], all formulations 0 completed Not Available [facility] 08/23/2013 13:38:52 pneumococcal polysaccharide PPV23 0 completed Not Available [facility] 08/23/2013 13:38:52 Influenza, split virus, trivalent, preservative 0 completed Not Available [facility] 08/23/2013 13:38:52 Influenza, split virus, trivalent, preservative 1 completed Not Available [facility] 08/23/2013 13:38:52 Influenza, split virus, trivalent, preservative 2 completed Not Available [facility] 08/23/2013 13:38:52 Influenza, split virus, trivalent, preservative 3 completed Not Available [facility] 08/23/2013 13:38:52 Influenza, high-dose, trivalent, PF 8 completed Not Available [facility] 02/26/2019 02:22:14 Influenza, high-dose, trivalent, PF 9 completed Not Available [facility] 02/26/2019 02:22:09 Past Encounters Encounter ID Performer Location Encounter Start Date Encounter Closed Date Diagnosis/Indication Diagnosis SNOMED-CT Code Diagnosis ICD10 Code Diagnosis Note [id number] NICOLÁS Cheung Main Office [address] [place] [address] 09/08/2013 11:14:56 09/08/2013 11:58:13 Essential hypertension 66812137 well controlled Asthma 310894380 followe d by pulm, well controlled on symbicort Anxiety state 864267679 Impacted cerumen 88532748 successful ly removed with ear lavage [id number] [facility] [facility] [address] [facility] [place] [address] 03/01/2009 00:00:00 [id number] auto[facility] erce [address] [facility] [address] [place] [address] 03/29/2009 00:00:00 [id number] [place] [address] 09/10/2009 00:00:00 [id number] [address] [address] [place] [address] 11/13/2009 00:00:00 [id number] auto[facility] erce [address] [facility] [address] [place] [address] 11/30/2009 00:00:00 [id number] autoEComm erce [address] [facility],[address] [place] [address] 12/21/2009 00:00:00 [id number] auto[employer]Comm erce [address] [facility],[address] [place] [address] 02/11/2010 00:00:00 [id number] auto[facility] erce [address] [facility],[address] [place] [address] 05/17/2010 00:00:00 [id number] auto[employer] erce [address] [facility],[address] [place] [address] 08/23/2010 00:00:00 [id number] autoEComm erce [address] [facility] [place] [address] 09/04/2010 00:00:00 [id number] autoEComm erce [address] [facility] [place] [address] 11/29/2010 00:00:00 [id number] autoEComm erce [address] [facility] [address] [place] [address] 01/10/2011 00:00:00 [id number] autoEComm erce [address] [facility] [place] [address] 05/02/2011 00:00:00 [id number] autoEComm erce [address] [facility],[address] [place] [address] 10/31/2011 00:00:00 [id number] [address] [address] [place] [address],[address] [place] [address] 04/29/2012 00:00:00 [id number] autoEComm erce [address] [facility] [place] [address] 07/15/2012 00:00:00 [id number] [address] [address] [place] [address],[address] [place] [address] 01/27/2013 00:00:00 [id number] Ramon Callahan MD Main Office [address] [address] [place] [address] 09/26/2013 13:41:44 09/26/2013 14:55:33 Dermatitis 244268799 candidal dermatitis [id number] Ricardo medellin MD Main Office [address] [address] [place] [address] 03/02/2014 12:39:53 03/02/2014 13:42:38 Essential hypertension 07018920 Hyponatremia 34054315 pt to see Dr Pride regularly/ pt aware that she needs to stop using clorazepat e / see psych referral Anxiety state 164616417 Dysuria 80097993 [id number] Ricardo medellin MD Main Office [address] [address] [place] [address] 04/21/2014 14:46:19 04/21/2014 15:48:33 Essential hypertension 51871115 both meds helpful/ Diltiazem and lisinopril Gastroesop hageal reflux disease 653131161 pt on PPI Anxiety state 650674447 Asthma 060472321 [id number] Ricardo medellin MD Main Office [address] [address] [place] [address] 03/23/2015 13:27:48 03/23/2015 14:47:01 Adult health examination 534911509 Z00.00 At [facility] ed risk for falls 713615007 Z91.81 Advance di rective discussed with patient 473474350 Z71.89 pt will have her brother as health care proxy Essential hypertension 74901629 I10 both meds helpful/ Diltiazem and lisinopril Polyp of colon 37215667 K63.5 pt due for colonoscop y 2016 /tubular adenoma/We iss Asthma 469606296 J45.90 9 Anxiety state 015412995 F41.1 [id number] Ricardo medellin MD Main Office [address] [address] [place] [address] 10/05/2015 12:46:12 10/05/2015 13:40:50 Essential hypertension 43058814 I10 both meds helpful/ Diltiazem and lisinopril Asthma 521328972 J45.90 9 urged pt to get flu shot soon. Anxiety state 448479146 F41.1 [id number] Ricardo medellin MD Main Office [address] [address] [place] [address] 06/19/2016 12:55:50 06/19/2016 14:13:50 Fatigue 80831614 R53.83 Abnormal weight loss 267 611974 R63.4 Diarrhea 67803185 R19.7 Nausea 620269564 R11.0 d/w pt to elevate HOB/ cont PPI Impaired f asting glycemia 224074326 R73.01 [id number] Ricardo medellin MD Main Office [address] [address] [place] [address] 10/23/2016 14:30:06 10/23/2016 15:27:24 [id number] Ricardo medellin MD Main Office [address] [address] [place] [address] 10/31/2016 13:21:48 10/31/2016 14:41:18 Lumbosacral radiculitis 40029771 M54.17 Influenza vaccine needed 0790832414 106 Z23 [id number] Ricardo medellin MD Main Office [address] [address] [place] [address] 12/01/2016 13:04:53 12/01/2016 14:09:38 Adult health examination 474695654 Z00.00 Essential hypertension 63453148 I10 both meds helpful/ Diltiazem and lisinopril Anxiety state 566145056 F41.1 [id number] Ricardo medellin MD Main Office [address] [address] [place] [address] 05/15/2017 11:16:16 05/15/2017 12:12:51 Anxiety state 497915400 F41.1 Essential hypertension 79531097 I10 both meds helpful/ Diltiazem and lisinopril Incomplete emptying of urinary bladder 536838725 R39.14 [id number] Denis Marcos [facility] Main Office [address] [address] [place] [address] 11/13/2017 10:36:20 11/13/2017 11:18:17 Anxiety state 235785944 F41.1 has been on med for 20+ years, she is taking 3.75mg daily, will try to cut the dose in half if possible. f/u in 1 month for wellness visit. Influenza vaccine needed 7061436740 106 Z23 Gastroesop hageal reflux disease 216029446 K21.9 Essential hypertension 93473032 I10 well controlled , continue meds as directed. [id number] Denis Marcos [facility] Main Office [address] [address] [place] [address] 12/18/2017 12:40:39 12/18/2017 13:46:58 Adult health examination 202998290 Z00.00 hm UTD, she will call [facility] for appt Varicella vaccination 68 068896 Z23 Asthma 679455613 J45.90 9 Essential hypertension 25811565 I10 well controlled , continue meds as directed. Family his tory of Hypercholesterolemia 754314907 Z83.49 Anxiety state 810342092 Edi.1 has been on med for 20+ years, she is taking 3.75mg daily, will try to cut the dose in half if possible. f/u in 1 month for wellness visit. [id number] Solomon Hemphill MD Main Office [address] [address] [place] [address] 06/11/2018 12:42:51 06/11/2018 13:40:40 Low back pain 655851929 M54.5 Patient with chronic low back pain, in PT, seeing chiropract or, but wondering if she should be seeing someone else. Will check XR and refer back to [facility], she has seen them for this in the past. continue sx treatment, ibuprofen as needed. Cramp in lower limb 4499 73107 R25.2 Essential hypertension 25600629 I10 well controlled , continue meds as directed. Fatigue 31363702 R53.83 [id number] Solomon Hemphill MD Main Office [address] [facility] [place] [address] 01/20/2019 09:41:15 01/20/2019 10:33:29 Adult health examination 462734965 Z00.00 UTD, she has mammo scheduled, needs to call [facility]. Influenza vaccine needed 7882287083 106 Z23 Impaired f asting glycemia 309224832 R73.01 in June, sugar 125 and she believes she was fasting Hyperlipidemia 06698145 E78.5 Health Concerns Section Related Observation LastModified by Organization Detai ls LastModified Time None Recorded Concern Status LastModified by Organization Details LastModified Time None Recorded Advance Directives Directive Y: Payers Insurance Date Sequence Insurance Name Policy Number Policy Menendez Covered Member ID Menendez Member ID Guarantor Name 09/10/2016 1 [employer] [place] - MEDICARE ADVANTAGE PLAN (MEDICARE REPLACEMENT HMO) [id number] Noris Hou [id number] Noris Hou 07/19/2019 2 [place] [id number] Noris Hou [id number] Noris Hou 07/19/2019 1 [place] [employer] Noris Hou [id number] Noris Hou Notes Date Note Type Note Provider Name and Address Organization Details Recorded Time 05/15/2017 text/html Anxiety/Depressi onRepo rted bypatient.Quality:incr eased anxiety; pt reports that sthe plans to return to her pschologist Dr Valdes this year Severity:able to maintain relationships Associated Symptoms:no significant weight gain; mood good; 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 , > 20 [...] no fever;incomplete emptying of bladder Ricardo rosario [facility] 05/15/2017 12:16:47 11/13/2017 text/html Anxiety/Depressi onRepo rted bypatient.Quality:incr eased anxiety; stress, car trouble Severity:able to maintain relationships Context:major life stressors;family problems Associated Symptoms:no significant weight gain;high irritability;hostility ;anxiety;hypersensitiv ity;anxiety with muscle tension; pt has correction hx of benzo use , > 20 yearsNotes:+ hx nausea and diarrhea, panic attacks etc Maryanne rosario [facility] 11/13/2017 12:41:13 12/18/2017 text/html Medicare [...] working on it) Ramon Callahan MD [address], [address], [facility] [place] 12/19/2017 16:52:49 06/11/2018 text/html Generic HPI TemplateReported [...] strengthen legs. DR saw Dr. Miller at [facility]. Was discharged in 2017 due to improvement with PT. 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 Since the fall her back pain is worse. NICOLÁS Fay [address] [address], [place], [address], [facility] [place] 06/11/2018 13:40:34 01/20/2019 text/html Medicare Annual Wellness [...] states she found a new PCP in [place] but cannot be seen until May. Denis [facility] [address] [address], [place], [address], [facility] 01/20/2019 10:57:40 OBGyn Episode No OBEpisode recorded.
--- OUTSIDE RECORDS SUMMARY | 2024-08-19 14:03 | XMS_ITS | Patient Health Record ---
Author Organization [facility] Address [address] [place] [address] Care Team Providers Care Ceo Na Name Role Phone Syd Dhillon MD Primary Care Provider Un available Harsha Camara Unavailable [phone] Allergies Allergen (clinical drug ingredient) Drug/Non Drug Allergy documented on EMR Reaction Allergy Type Onset Date Status Latex latex (uncoded) Unknown Allergy Acti ve Reason For Referral No Information Medications Medication SIG (Take, Route, Frequency, Duration) Notes Start Date End Date Status Lisinopril 10 MG 1 tablet Orally Once a day Active Metamucil 0.52 GM 2 capsules with 8 ou nces of liquid Orally BID Active Flovent HFA 100mcg A ctive Symbicort 160-4.5 MCG/ACT 2 puffs Inhala tion Twice a day Active Tamsulosin HCl 0.4 MG 1 capsule Orally O nce a day Active dilTIAZem HCl 120 MG 1 tablet before lizet ls Orally QD Active Omeprazole 20 MG 1 capsule Orally Onc e a day Active Vitamin D 2000 UNIT 1 tablet Orally Once a day Active Clorazepate Dipotassium 7.5mg 1/2 tablet Orally Once a day Active Immunizations Vaccine Route Administration Date Status Comme nts Flu vaccine no Preserv 3 and > Unknown 11/22/2015 Admin istered Problems Problem Type SNOMED Code ICD Code Onset Dates Problem Status W/U Status Risk Notes Problem 992362987 Encounter for screening for malignant neoplasm of colon (Z12.11) Active confirmed Problem 875067116 History of adenomatous polyp of colon (Z86.010) Active confirmed Problem 113859980 Gastroesophageal reflux disease, esophagitis presence not specified (K21.9) Active confirmed Plan Of Treatment Future Test Test Name Order Date COLONOSCOPY 11/04/2011 COLONOSCOPY 07/16/2016 Insurance Providers Payer Name Payer Address Payer Phone Subscriber Number Group Number Insured Name Patient Relationship to Insured Coverage Start Date Coverage End Date MEDICARE OF [place] [address] [place] [id number] KATYELVER Weeks Self - patient is the insured MEDEX ATTN CLAIMS [address] [place] [phone] [id number] ELVER GARBER Self - patient is the insured Medical (General) History Medical History History ICD Code Colonoscopies in 2006 and in 2011--- Tubular adenomas removed in 2006 and in 11/2011; Cecal AVM's; diffuse diverticulosis; internal hemorrhoids 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 Dietz
[2024-08-19 14:06] LABS: Prothrombin Time Whole Bld POC 31.5 sec (11.1-13.5); ~PT, ~INR - Anti Coag Clinic 2.6 (0.9-1.1)
--- NOTE | 2024-08-19 14:16 | MHC.OFFVISCO ---
Intake Intake Visit Reasons: Anticoagulation Allergies Seasonal Allergies Allergy (Mild, Verified 08/19/24 13:59) runny nose latex Allergy (Verified 08/19/24 13:59) rash Medication List - Last Reconciled 08/19/24 by Anabella Otoole RN albuterol sulfate 90 mcg/actuation 2 puffs inhalation Q8H PRN budesonide-formoterol 160-4.5 mcg/actuation inhalation cetirizine (Zyrtec) 10 mg PO DAILY PRN cholecalciferol (vitamin D3) 50 mcg PO DAILY citalopram 20 mg PO DAILY 90 days clonazepam 0.5 mg PO BID PRN diltiazem HCl CD 120 mg PO DAILY 90 days enoxaparin (Lovenox) 40 mg See Protocol subcut DAILY 10 days fluticasone propionate 50 mcg/actuation (Flonase Allergy Relief) 1 spray intranasal Q12H 30 days Held on 02/25/24. Instructions: nose bleed gabapentin 300 mg PO BID losartan 25 mg PO DAILY omeprazole 20 mg PO DAILY tamsulosin 0.4 mg PO BEDTIME 90 days warfarin 2 mg See Protocol PO DAILY 30 days Nursing Note INR: 2.6 in therapeutic range Medications and supplements reviewed * pt surgical site healing drsg dry and intact- to start radiation possibly next week - has consult ThursdayAugust 22 - she will call when she starts Denies any signs and symptoms of bleeding or bruising or clotting. Bleeding, bruising, clotting discussed Nutritional guidance given - Keep up weekly greens while eating summer foods that can raise your INR, plus eat greens to lower the INR to decrease risk of bleeing while receiving radiation Dose: keep same dose for now 2mg / 1mg x 6 days F/U INR: 2 weeks Patient verbalizes understanding of instructions given Anti-Coag Initial Assessment Social Hx Patient Tobacco Use Status: Former Tobacco user (20 years quit around age 51 ) Tobacco use type: Cigarette Smoking packs per day: 1.0 alcohol intake: current Alcohol intake frequency: 0-2 drinks per day (about 2 daily with ice ) Cardiovascular Hx: HTN and Other (edma right foot > left foot had dvt ) Lung Disease HX: Asthma, COPD (believe r/t to work exposure and smoking) and DVT/PE (2022 after having RSV and covid vaccines- pt feels r/t to vaccines also ) Endocrine Hx: Diabetes (being monitored ) Musculoskeletal Hx: Arthritis (mostly hand - all over, ) GI Hx: Bleeding (GI, rectal) (age 60s x 2 weeks 10 blood transfusions no found cause at the time - and none since then ) and Diverticulosis Hx: Bladder Disorders (URGENCY ) and Other (UPCOMING RENAL EVALUATIONS ) Cancer HX: 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 Illness/Depression: Yes (anxiety ) Coding Level of Care Code Est Patient Level 1 Diagnoses Current use of anticoagulant therapy Z79.01 Results AMB INR Fingerstick AMB INR Fingerstick 2.6 Last Edit by Anabella Otoole RN on 08/19/24 14:08 MANUAL ENTRY Assessment & Plan Assessment & Plan (1) Current use of anticoagulant therapy: Code(s): Z79.01 - terminal clerk (current) use of anticoagulants Category: Medical Medications: Discontinued gabapentin Discontinued Reason: Patient no longer taking 300 mg PO BID 60 caps 0RF
== END 2024-08-19 14:29 | disposition home or self-care (01) ==
LOC: HO.ACS 13:58
PROVIDERS: PCP Family Medicine; Visit Provider Internal Medicine Medical Oncology
DX: Z79.01 Long term (current) use of anticoagulants (principal)

== ENCOUNTER → 2024-08-19 13:58 | Outpatient (BNVA) | payer MEDICARE, MEDICAID, SELFPAY | PROVIDERS: PCP Family Medicine; Visit Provider Internal Medicine Medical Oncology | DX: I26.94 Multiple subsegmental thrombotic pulmonary emboli without acute cor pulmonale (principal); Z86.718 Personal history of other venous thrombosis and embolism; Z79.01 Long term (current) use of anticoagulants; Z51.81 Encounter for therapeutic drug level monitoring | CPT/HCPCS: 85610; 99211 ==

== ENCOUNTER 2024-08-29 11:17 | Outpatient (AMB) | payer MEDICARE, MEDICAID, SELFPAY ==
--- NOTE | 2024-08-29 11:31 | A.OFFPC_ITS ---
Vital Signs 08/29/24 11:39 Height 5 ft 1 in Weight 144 lb 4 oz BMI 27.3 BP 108/62 Blood Pressure Location Lt brachial Position Sitting Respiration 28 H Pulse 76 Pulse Source Pulse Oximeter Pulse Oximetry (%) 96 Oxygen Delivery Method Room Air Intake Visit Reasons: f/u HTN, chronic conditions Intake Note: Follow up Communications Marketing Intern Required: No Allergies Seasonal Allergies Allergy (Mild, Verified 08/29/24 11:33) runny nose latex Allergy (Verified 08/29/24 11:33) rash Medication List - Last Reconciled 08/29/24 by Ric Flor MD albuterol sulfate 90 mcg/actuation 2 puffs inhalation Q8H PRN budesonide-formoterol 160-4.5 mcg/actuation inhalation cetirizine (Zyrtec) 10 mg PO DAILY PRN cholecalciferol (vitamin D3) 50 mcg PO DAILY citalopram 20 mg PO DAILY 90 days clonazepam 0.5 mg PO BID PRN diltiazem HCl CD 120 mg PO DAILY 90 days gabapentin 300 mg PO DAILY losartan 12.5 mg PO DAILY omeprazole 20 mg PO DAILY tamsulosin 0.4 mg PO BEDTIME 90 days warfarin 2 mg See Protocol PO DAILY 30 days Tobacco use date assessed: 08/29/24 Fall risk assessment: No Falls in past year Last assessed Fall Risk: 08/29/24 Dental Screening Dental Screen Date: 08/29/24 Did you have a dental visit in the last 12 months?: Yes Did you have a dental problem in the last 6 months where you did not have access to dental care?: No Was dental information given to patient?: Patient has dentist HPI f/u HTN, chronic conditions HPI Details 84 y/o female presents to f/u HTN, chron ic conditions. She also presents today for a handicap placard. Had decreased losartan last office visit. Blood pressure today 108/62, 76p. She is on diltiazem 120mg, losartan 12.5mg daily. 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 She is s/p rhinectomy and partial maxillectomy at [facility] on July 11, 2024. Pt notes lower extremity swelling has been improving. HPI Comments History of Present Illness Details Documentation assistance for Ric Flor MD, was provided by Rodriguez Simmons,? Deputy Juvenile Officer on 08/29/2024 at 12:17 PM EST. I, Dr. Flor, have read, observed, and verified documentation. ?? [facility], [facility] Medical History (Updated 08/29/24 @ 12:29 by Ric Flor MD) Swelling of both lower extremities Pulmonary emboli (~01/2022) Skin cancer History of COVID-19 Essential hypertension Chronic allergic rhinitis Hyponatremia Asthma-COPD overlap syndrome Surgical History History of esophagogastroduodenoscopy (EGD) History of colonoscopy Family History Mother Breast cancer Father Prostate CA Stroke Social History Household Members: None Housing: House Housing Other:: mobile home- friend to be moving in Alcohol intake: current Alcohol intake frequency: 0-2 drinks per day (about 2 daily with ice ) Patient Tobacco Use Status: Former Tobacco user (20 years quit around age 51 ) Tobacco use type: Cigarette Cigarette Packs Per Day: 1.0 Years Smoked: 10 years e-Cigarette/Vaping Use: Never Used Second Hand Smoke Exposure: No service: No Current occupational status: retired 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 Current occupational exposures/hazards: No Cognitive needs: No Hearing needs: No Vision needs: No Questionnaire Thrive Questionnaire Date Thrive assessed: 05/11/24 I am a: Patient What is your living situation today?: I have a steady place to live Within the past 12 months, did the food you bought not last and you didn't have the money to get more?: Sometimes True Within the past 12 months, did you worry whether your food would run out before you got money to buy more?: Sometimes True Do you have trouble paying for medicines?: No Do you have trouble getting transportation to medical appointments?: No Do you have trouble paying your heating and electricity bill?: No Do you have trouble taking care of your child, family member or friend?: No Do you have trouble with day-to-day activities such as bathing, preparing meals, shopping, managing finances, etc.?: No Are you currently unemployed and looking for a job?: No Are you interested in more education?: No Please select the resources that you would like help with: None Currently or been in a relationship where the following occur: No concerns reported THRIVE Score: 2 ROEL-7 AMB Questionnaire ROEL-7 Date ROEL - 7 assessed: 05/17/24 Source: Developed by Drs. Harsha Hood, Diana Mendoza, Kristopher Villa and colleagues, with an educational johnie from [employer]. Review of Systems Const Denies chills, Denies fatigue, Denies fever(s), Denies headache(s) and Denies weakness ENT Denies dizziness and Denies headache(s) Card Denies dyspnea Resp Denies cough, Denies dyspnea, Denies wheezing and Denies other (shortness of breath) Musc Denies numbness and Denies tingling Neuro Denies dizziness, Denies headache(s), Denies numbness, Denies tingling and Denies weakness Psych Denies anxiety and Denies depression Endo Denies fatigue Aller/Immun Denies wheezing Physical exam (Primary Care) Vital Signs: Last Vital Signs Pulse 76 08/29/24 11:39 Resp 28 H 08/29/24 11:39 BP 108/62 08/29/24 11:39 Pulse Ox 96 08/29/24 11:39 Oxygen Delivery Method Room Air 08/29/24 11:39 BMI result Body Mass Index 27.3 Tobacco/Smoking Status: Tobacco use Status Tobacco use date assessed 08/29/24 08/29/24 11:41 Patient Tobacco Use Status Former Tobacco user (20 08/29/24 11:32 years quit around age 51 ) Tobacco use type Cigarette 08/29/24 11:32 e-Cigarette/Vaping Use Never Used 08/29/24 11:32 Thrive Assessment: Date of Thrive Assessment Date Thrive assessed 05/11/24 08/29/24 11:32 Currently or been in a relationship where the following occur: No concerns reported Const General: well developed; No acute distress Nutritional Appearance: well nourished Orientation/consciousness: patient oriented x3 HENMT Head: Yes normocephalic and Yes atraumatic Eyes General: appearance normal, both eyes and all related structures Pupils: Equal, round and reactive pupils present EOM: EOMs intact bilaterally Resp Effort & Inspection: normal respiratory effort Neuro General: patient oriented x3 and gait normal Cranial nerves: Yes Equal, round and reactive pupils present Psych Affect: normal affect Coding Level of Care Code Est Pt Level 4 (02724) Diagnoses 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 Essential hypertension I10 Swelling of both lower extremities M79.89 Assessment & Plan Assessment & Plan (1) Squamous cell carcinoma of nasal cavity: Code(s): C30.0 - Malignant neoplasm of nasal cavity Category: Medical Plan: 84-year-old female with squamous cell carcinoma of the nasal cavity and now s/p rhinectomy She has upcoming follow-up appointment with her surgeon at [facility]. Stable (2) Essential hypertension: Code(s): I10 - Essential (primary) hypertension Category: Medical Plan: Blood pressure is controlled. Goal is less 40/90 Continue current medication (3) Swelling of both lower extremities: Code(s): M79.89 - Other specified soft tissue disorders Category: Medical Plan: Ongoing lymphedema and swelling of both lower extremities. She elevate her feet and is using compression stockings. Will fill out form for handicap roderick as she has difficulty walking Medications: Changed From losartan 25 mg PO DAILY 90 tabs 1RF To losartan 12.5 mg PO DAILY
[2024-08-29 11:39] VITALS: BP 108/62; PULSE 76; RESP 28; O2SAT 96; BMI 27.3
--- OUTSIDE RECORDS SUMMARY | 2024-08-29 12:27 | XMS_ITS | Encounter Summary ---
Author Organization [facility] Address [address] [place] [id number] Care Team Providers Care Pipe Installer Name Role Phone Syd Dhillon Primary Care Provider Un available Gennaro Guillaume MD Primary Care Provider Susyva sean Jordan, Pcp Primary Care Provider Adriana petersen Encounter Details Date Type Department Care Team Description 02/27/2017 Release of Information Medical Records [address] [place] [id number] Abstract, Provider Social History Tobacco Use Types Packs/Day Years Used Date Smoking Tobacco: Former Cigarettes 1 15 Smokeless Tobacco: Never Sex Assigned at Date Recorded Not on file documented as of this encounter Plan of Treatment Not on file documented as of this encounter Visit Diagnoses Not on filedocumented in this encounter Care Teams Pipe Installer Relationship Specialty Start Date End Date Syd Dhillon PCP - General Internal Medicine 02/20/17 9 Gennaro Guillaume MD PCP - General Internal Medicine 12/16/18 09/22/19 [facility], Pcp PCP - General Internal Medicine 09/23/19 documented as of this encounter
--- OUTSIDE RECORDS SUMMARY | 2024-08-29 12:27 | XMS_ITS ---
Author Organization [facility] Address [address] [place] [id number] Phone Care Team Providers Care Senior Java Developer Name Role Phone Ric Flor MD Primary Care Provider Syd Maria MD Unavailable [phone] Active Problems Problem Noted Date Diagnosed Date Cancer of nasal cavities 07/11/2024 Class 1 obesity 07/06/2024 DVT (deep venous thrombosis) 07/06/2024 Pulmonary embolism 04/06/2024 Generalized anxiety disorder 05/25/2023 Squamous cell carcinoma of nose 06/24/2022 Basal cell carcinoma (BCC) of face 11/22/2021 Chronic obstructive pulmonary disease 09/19/2021 Arthritis 06/07/2019 Overview (06/14/2024): Lumbar Spine, SI joints Diverticulosis 06/07/2019 Overview (07/06/2024): 2011 Diverticulitis Tubular adenoma 06/07/2019 Overview (07/06/2024): 10/2016 CN diverticulosis, angiodysplasias, internal hemorrhoids,further colonoscopies on as needed basis Vitamin D deficiency 06/07/2019 Chronic low back pain 06/11/2018 Melanocytic nevus of trunk 12/14/2014 History of melanoma 05/03/2013 Overview (06/14/2024): 2008, Right arm, s/p removal Malignant melanoma 05/03/2013 Anxiety state 01/27/2013 Asthma 01/27/2013 External hemorrhoids 01/27/2013 Gastroesophageal reflux disease 01/27/2013 IBS (irritable bowel syndrome) 01/27/2013 Hearing loss 01/27/2013 Polyp of colon 10/31/2011 Hypertensive disorder 10/31/2011 Overview (06/14/2024): RECORDED 10/31/2011 2:41PM BY VIOLA BARRAGAN, KOMAL/ADDENDUM Anemia due to chronic blood loss 10/31/2011 Overview (07/06/2024): RECORDED 10/31/2011 2:42PM BY VIOLA BARRAGAN, KOMAL/ADDENDUM Diverticular disease of colon 10/31/2011 Overview (07/06/2024): STORY: PT WAS SEEN IN OUR OFFICE 11/30/09 FOR RECTAL BLEEDING AND WAS REFERRED TO GI FOR AN EVALUATION. THAT EVENING EVERY TIME THE PT ATE SOMETHING SHE WOULD BE GOING TO THE BATHROOM TO HAVE A BM THAT WAS FILLED WITH BLOOD. AFTER A FEW TIMES THE PT TOOK HERSELF TO [facility] TO BE EVALUATED. THE ONLY SX THAT THE PT FELT WAS BLOATING AND CRAMPING EVERYTIME SHE ATE. PT HAD TO UNDERGO A COLONOSCOPY WITCH SHOWED THAT THE PT HAD BLEEDING COMING FROM THE ASCENDING,DESCENDING, AND TRANSVERSE COLON. PT WAS LATER TRANSFERRED TO [facility] [place] [place] TO BE WATCHED CLOSELY. PT WAS THEN PLACED ON A LIQUID DIET UNTIL THE TIME WHERE SHE COULD TOLERATE SOLID FOOD WITH OUT PASSING A BM THAT WAS BLOODY. MEDICATION HAS BEEN RECONSILED WITH THE PT AND SHE WILL F/U WITH MGD 12/21/09.; RECORDED 10/31/2011 2:41PM BY VIOLA BARRAGAN, ANNOTATION/ADDENDUM Herpes zoster Current Treatment and Therapy Plans No current plan information found. Past Treatment and Therapy Plans TREATMENT PLAN Plan Name Start Date Discontinue Date Treatment Medications Discontinue Reason Plan Provider Cycles CEMIPLIMAB 06/21/2024 06/17/2024 cemiplimab-rwl c IVPB Bag m. Entered in error Kiley Holliday MD Treatment not started Resolved Problems Problem Noted Date Diagnosed Date Resolved Date Advance directive discussed with patient 07/06/2024 07/06/2024 Insomnia 07/06/2024 07/06/2024 Complication of procedure 04/19/2024 Asteatosis cutis 05/25/2023 07/06/2024 Erythema ab igne 04/14/2022 07/06/2024 Hemangioma of skin and subcutaneous tissue 04/14/2022 07/06/2024 Disorder of pigmentation 09/19/2021 Disorder of skin 09/19/2021 07/06/2024 Neoplasm of uncertain behavior of skin 09/19/2021 07/06/2024 Hyponatremia 05/22/2019 07/06/2024 Overview (06/14/2024): Na 128 on 05/17/2019, no previous labs to compare to Allergic rhinitis 02/20/2017 07/06/2024 Urinary tract infectious disease 05/03/2013 07/06/2024 Tobacco user 01/27/2013 07/06/2024 Overview (07/06/2024): RECORDED 01/27/2013 1:17PM BY ALEXANDRE SARABIA MA, ANNOTATION/ADDENDUM Retention of urine 04/29/2012 Overview (07/06/2024): RECORDED 04/29/2012 2:37PM BY MALCOLM HANDY MA, ANNOTATION/ADDENDUM Chest pain 10/31/2011 07/06/2024 Overview (07/06/2024): RECORDED 10/31/2011 2:41PM BY VIOLA BARRAGAN, KOMAL/ADDENDUM Difficult or painful urination 10/31/2011 07/06/2024 Overview (07/06/2024): IMPRESSION: 3+ LEUKOCYTES ON UA TODAY, COMPLETED BACTRIM 2 DAYS AGO, START CIPRO AND SEND CULTURE; RECORDED 10/31/2011 2:41PM BY VIOLA SCHULTZKI, ANNOTATION/ADDENDUM Hemorrhage of colon 10/31/2011 07/07/19 Overview (07/06/2024): STORY: STABLE/ STILL ANEMIC; RECORDED 10/31/2011 2:41PM BY VIOLA BARRAGAN, ANNOTATION/ADDENDUM Tachycardia 10/31/2011 07/06/2024 Overview (07/06/2024): RECORDED 10/31/2011 2:42PM BY VIOLA BARRAGAN, ANNOTATION/ADDENDUM
--- OUTSIDE RECORDS SUMMARY | 2024-08-29 12:27 | XMS_ITS | Patient Health Record ---
Author Organization [facility] Address [address] [place] [id number] Care Team Providers Care Sewing Trimmer Name Role Phone Syd Dhillon MD Primary Care Provider Un available Harsha Camara Unavailable [phone] Allergies Allergen (clinical drug ingredient) Drug/Non Drug [...] Problem Status W/U Status Risk Notes Problem [id number] Encounter for screening for malignant neoplasm of colon (Z12.11) Active confirmed Problem [id number] History of adenomatous polyp of colon (Z86.010) Active confirmed Problem [id number] Gastroesophageal reflux disease, esophagitis presence not specified (K21.9) Active confirmed Plan Of Treatment Future Test Test Name Order Date COLONOSCOPY 11/04/2011 COLONOSCOPY 07/16/2016 Insurance Providers Payer Name Payer Address Payer Phone Subscriber Number Group Number Insured Name Patient Relationship to Insured Coverage Start Date Coverage End Date MEDICARE OF [place] [address] [place] [id number] KATYELVER Weeks Self - patient is the insured [employer] CLAIMS [address] [place] [address] [phone] [id number] ELVER GARBER Self - patient is the insured Medical (General) History Medical History History ICD Code Colonoscopies in 2006 and in 2011--- Tubular adenomas removed in 2006 and in 11/2011; Cecal AVM's; diffuse diverticulosis; internal hemorrhoids Melanoma on RUE-surgery as below Hiatal hernia-EGD in 2006 Hypertension Asthma Denies HI,DM,CVA,renal disease Urinary retention-planning to see a urol ogist Diverticular bleed in 2009--at [facility] Depression Surgical History Surgery Date(Month/Year) Ovarian cyst Skin cancer surgery-basal ce ll x 4, and melanoma on RUE Rx'd with local excisions by Dr. Dietz
--- OUTSIDE RECORDS SUMMARY | 2024-08-29 12:28 | XMS_ITS | Data Portability ---
Author Organization [facility], Main Office Address [address] [place] [address] Care Team Providers Care Steam Cleaner Name Role Phone ABDIEL ORTEGA Technician Biological Health GRACIELA MILLER Urologist ABDIEL LOZANO Aligner Barrel And Receiver URBAN PRIDE Shipping/Receiving Clerk HUMBERTO SINGH Wealth Management Director RICARDO HUGHES Chiropractor [facility] Physical Therapist DENIS MARCOS Primary Care Provider Assessment No assessment recorded. Plan of Treatment Reminders Order Date Submit Date Provider Last Modified By Organization Details Last Modified Time Details Appointments None recorded. Lab HbA1c (hemoglob in A1c), blood 2018 019 [facility] (Centralized Electronic Ordering - All Locations), Patient Can Go To The Location Of Their Choice, [address] 0 09:38:13 BMP, serum or plasma 2018 019 [facility] (Centralized Electronic Ordering - All Locations), Patient Can Go To The Location Of Their Choice, [address] 0 09:38:13 lipid panel, serum 2018 019 [facility] (Centralized Electronic Ordering - All Locations), Patient Can Go To The Location Of Their Choice, [address] 0 09:38:13 magnesium , serum or plasma [...] 15:24:52 CMP, serum or plasma [address] [facility] ([facility] - All Locations), Patient Can Go To The Location Of Their Choice, 11:56:02 Referral spine center referral - patient in 2017, MRI showed crowding L2 nerve root on the left, having worsenign sx of sciatic pain, low back pain, leg pains bilateral ly. 2018 019 [facility], [address] [place] [address], [place], [address], 9 17:23:40 physical therapist referral - At risk for falling 2017 018 [email or web address] [facility], [address] [place], [address], 8 16:26:43 urologist referral - pt has not seen urology in 2 years or more and wants to have consultat ion w/ urologist rather than VALVE TECHNICIAN 2017 018 scott Crane MD, [address], [place], [address], 8 13:35:13 Procedures None recorded. Surgeries None recorded. Imaging XR, lumbar spine - chronic low back pain, worsening s/p fall in february [id number] 019 [facility], [address] [place] [address], [address], 9 10:29:46 XR, sacrum + coccyx - s/p fall in february, hx low back arthritis . pain worsening 2018 019 [facility], [address] [place] [address], [address], 9 10:29:44 Medication Orders clorazepa te dipotassi um 3.75 mg tablet 2017 018 [facility]FACE [id number], [address] [place], [address], 8 11:18:58 tamsulosi n 0.4 mg capsule 2017 018 [id number], [address] [place], [address], 8 13:01:14 clorazepa te dipotassi um 3.75 mg tablet 2017 018 INTERFACE [id number], [address] [place], [address], 8 12:05:21 Patient TargetsNo targets recorded. Patient Instructions Encounter Date Encounter Id Patient Instructions Last Modified By Organization Details Last Modified Time 11/13/2017 [id number] anxiety disorder: care instructions [email or web address] Not available 11/13/2017 11:18:44 call or return for worsening or concerns. [email or web address] Not available 11/13/2017 11:13:19 I have reviewed the note and agree with the assessment and plan of care. dolores Not available 11/13/2017 12:41:01 12/18/2017 [id number] preventing falls: care instructions [email or web address] Not available [...] medication. [email or web address] Not available 12/18/2017 13:20:44 06/11/2018 [id number] low back pain: exercises [email or web address] Not available 06/11/2018 13:24:20 call or return for worsening or concerns. [email or web address] Not available 06/11/2018 13:22:08 01/20/2019 [id number] preventing falls: care instructions [email or web address] Not available 01/20/2019 10:20:59 call or return for woraening or concerns. [email or web address] Not available 01/20/2019 10:20:56 Reviewed the risks and benefits of intermediate teacher opiate use, OUD discussed with the patient. Reviewed the risks and benefits of other non-opioid pain therapies. Reviewed caution with driving, fall risk, treatment for constipation. Patient verbalizes understanding of risk and benefits, and of OUD. [email or web address] Not available 01/20/2019 09:46:37 Reason for Referral Urologist Referral for Incom plete emptying of urinary bladder pt has not seen urology in 2 years or more and wants to have consultation w/ urologist rather than VALVE TECHNICIAN Referring Physician: Ricardo Dhillon, Internal Medicine, [...] ce of an acute proces s. WSN: [id number] Dictat ed By: Delonte Barrios MD Dictat ed Date/T erlinda: 10:26 a Review ed By: Delonte Barrios MD Signed By: Delonte Barrios MD Signed Date/T erlinda: 10:26 am Transc ribed By: PASTORA Transc ribed Date/T erlinda: 10:24 am Patien t Class: Outpat ient [facility] (Outpt Imaging) [address] [place], [address], 06/15/2018 15:07:23 06/15/19 19 06/14/2018 XR, lumba [...] ce of an acute proces s. WSN: [id number] Dictat ed By: Delonte Barrios MD Dictat ed Date/T erlinda: 10:26 a Review ed By: Delonte Barrios MD Signed By: Delonte Barrios MD Signed Date/T erlinda: 10:26 am Transc ribed By: PASTORA Transc ribed Date/T erlinda: 10:24 am Patien t Class: Outpat ient [facility] (Outpt Imaging) [address] [place], [address], 06/15/2018 15:07:23 Result Notes Documentation Provider Name [...] no evidence of an acute process. WSN: [id number] Dictated By: Rocael Barrios MD Dictated Date/Time: 06/14/18 10:26 a Reviewed By: Rocael Barrios MD Signed By: Rocael Barrios MD Signed Date/Time: 06/14/18 10:26 am Transcribed By: PASTORA Transcribed Date/Time: 06/14/18 10:24 am Patient Class: Outpatient NICOLÁS Fay [address], [place], [address], [facility] 06/15/2018 12:48:36 Xr, Lumbar Spine : Lumbar [...] no evidence of an acute process. WSN: [id number] Dictated By: Rocael Barrios MD Dictated Date/Time: 06/14/18 10:26 a Reviewed By: Rocael Barrios MD Signed By: Rocael Barrios MD Signed Date/Time: 06/14/18 10:26 am Transcribed By: PASTORA Transcribed Date/Time: 06/14/18 10:24 am [facility] [address], [place], [address], [facility] 06/15/2018 12:48:36 Problems Name Problem SNOMED Code Status Onset Date Resolution Date Notes Provider Name and Address Organization Details Recorded Time Impacted cerumen 87875188 Completed 09/17/2016 Becky rosario [facility] 7 17:00:46 Hyponatr emia 17987638 Completed 09/04/2017 Dilshad Hall MD [address], [place], [address], [facility] 8 06:00:03 Dermatit is Completed 09/17/2016 Becky rosario [facility] 7 17:00:48 Dysuria 09236159 Completed 09/17/2016 Becky rosario [facility] 7 17:01:13 Insomnia 993884321 Active [place] Aziza rosario [facility] 6 11:38:21 Advance directiv e discusse d with patient 460505641 Completed 09/17/2016 Becky rosario [facility] 7 17:01:07 Polyp of colon 80169361 Active [place] Aziza [facility] 6 11:38:21 Active or passive immuniza tion Completed 200908/23/2013 RECORDED 03/01/19 10 9:56AM BY PILLO Masters NP, OFFICE VISIT Michelle Aziza [facility] 6 11:38:22 Active or passive immuniza tion Completed 200909/15/2013 RECORDED 03/01/19 10 9:56AM BY PILLO Masters NP, OFFICE VISIT Michelle Aziza [facility] 6 11:38:22 Active or passive immuniza tion Completed 200909/16/2013 RECORDED 03/01/19 10 9:56AM BY PILLO Masters NP, OFFICE VISIT [place] Aziza [facility] 6 11:38:22 Anemia due to chronic blood loss 257792316 Completed 201108/23/2013 RECORDED 10/31/19 12 2:42PM BY NICKY WOODS ON/ADDEN DUM [place] [facility] 6 11:38:21 Screenin g for malignan t neoplasm of breast Completed 201108/23/2013 RECORDED 10/31/19 12 2:41PM BY NICKY WOODS ON/ADDEN DUM Becky Bigroshni [facility] 7 13:35:13 Chest pain 01982497 Completed 201108/23/2013 RECORDED 10/31/19 12 2:41PM BY NICKY WOODS ON/ADDEN DUM [place] [facility] 6 11:38:22 Divertic ular disease of colon 917971327 Completed 201108/23/2013 STORY: PT WAS SEEN IN OUR OFFICE 11/30/09 FOR RECTAL BLEEDING AND WAS REFERRED TO GI FOR AN EVALUATI ON. THAT EVENING EVERY TIME THE PT ATE SOMETHIN G SHE WOULD BE GOING TO THE BATHROOM TO HAVE A BM THAT WAS FILLED WITH BLOOD. AFTER A FEW TIMES THE PT TOOK HERSELF TO [facility] TO BE EVALUATE D. THE ONLY SX THAT THE PT FELT WAS BLOATING AND CRAMPING EVERYTIM E SHE ATE. PT HAD TO UNDERGO A COLONOSC OPY WITCH SHOWED THAT THE PT HAD BLEEDING COMING FROM THE ASCENDIN G,DESCEN DING, AND TRANSVER SE COLON. PT WAS LATER [place] [facility] [place]. PT WAS THEN PLACED ON A LIQUID DIET UNTIL THE TIME WHERE SHE COULD TOLERATE SOLID FOOD WITH OUT PASSING A BM THAT WAS BLOODY. MEDICATI ON HAS BEEN RECONSIL ED WITH THE PT AND SHE WILL F/U WITH MGD 12/21/09 .; RECORDED 10/31/19 12 2:41PM BY NICKY WOODS ON/ADDEN DUM Michelle rosario [facility] 6 11:38:21 Hemorrha ge of colon 96573637 Completed 201108/23/2013 STORY: STABLE/ STILL ANEMIC; RECORDED 10/31/19 12 2:41PM BY NICKY WOODS ON/ADDEN DUM Michelle rosario [facility] 6 11:38:22 Divertic ulitis of colon 641710979 Active 2011 Becky rosario [facility] 7 17:00:37 Dysuria 39356876 Completed 201108/23/2013 IMPRESSI ON: 3+ LEUKOCYT ES ON UA TODAY, COMPLETE D BACTRIM 2 DAYS AGO, START CIPRO AND SEND CULTURE; RECORDED 10/31/19 12 2:41PM BY NICKY WOODS ON/ADDEN DUM Becky rosario [facility] 7 17:01:13 Essentia l hyperten julisa 14411090 Completed 201108/23/2013 RECORDED 10/31/19 12 2:41PM BY NICKY WOODS ON/ADDEN DUM Becky rosario [facility] 7 17:01:17 Hypo-osm olality and or hyponatr emia 937277811 Completed 201108/23/2013 RECORDED 10/31/19 12 2:41PM BY VIOLA SCHULTZK I, ANNOTATI ON/ADDEN DUM Michelle Degutis null, [facility] 6 11:38:21 Examinat ion for suspecte d mental disorder Completed 201108/23/2013 RECORDED 10/31/19 12 2:41PM BY NICKY WOODS ON/ADDEN DUM Michelle Degutis null, [facility] 6 11:38:22 Tachycar wesley 8372404 Completed 201108/23/2013 RECORDED 10/31/19 12 2:42PM BY NICKY WOODS ON/ADDEN DUM Michelle Degutis null, [facility] 6 11:38:22 Vaginiti s and vulvovag initis Completed 201108/23/2013 IMPRESSI ON: VAGINAL ITCHING AFTER COMPLETI NG ANTIBIOT ICS; RECORDED 10/31/19 12 2:42PM BY NICKY WOODS ON/ADDEN DUM Michelle Degutis null, [facility] 6 11:38:22 Anemia due to chronic blood loss 036129491 Completed 201109/15/2013 RECORDED 10/31/19 12 2:42PM BY NICKY WOODS ON/ADDEN DUM Michelle Degutis null, [facility] 6 11:38:21 Chest pain 11024741 Completed 201109/15/2013 RECORDED 10/31/19 12 2:41PM BY NICKY WOODS ON/ADDEN DUM Michelle Degutis null, [facility] 6 11:38:22 Divertic ular disease of colon 962820377 Completed 201109/15/2013 STORY: PT WAS SEEN IN OUR OFFICE 11/30/09 FOR RECTAL BLEEDING AND WAS REFERRED TO GI FOR AN EVALUATI ON. THAT EVENING EVERY TIME THE PT ATE SOMETHIN G SHE WOULD BE GOING TO THE BATHROOM TO HAVE A BM THAT WAS FILLED WITH BLOOD. AFTER A FEW TIMES THE PT TOOK HERSELF TO [facility] TO BE EVALUATE D. THE ONLY SX THAT THE PT FELT WAS BLOATING AND CRAMPING EVERYTIM E SHE ATE. PT HAD TO UNDERGO A COLONOSC OPY WITCH SHOWED THAT THE PT HAD BLEEDING COMING FROM THE ASCENDIN G,DESCEN DING, AND TRANSVER SE COLON. PT WAS LATER TRANSFER RED [place] [facility] [place]SE[place]. PT WAS THEN PLACED ON A LIQUID DIET UNTIL THE TIME WHERE SHE COULD TOLERATE SOLID FOOD WITH OUT PASSING A BM THAT WAS BLOODY. MEDICATI ON HAS BEEN RECONSIL ED WITH THE PT AND SHE WILL F/U WITH MGD 12/21/09 .; RECORDED 10/31/19 12 2:41PM BY NICKY WOODS ON/ADDEN DUM Michelle Degutedouard rosario [facility] 6 11:38:21 Hemorrha ge of colon 49266944 Completed 201109/15/2013 STORY: STABLE/ STILL ANEMIC; RECORDED 10/31/19 12 2:41PM BY NICKY WOODS ON/ADDEN DUM Michelle Degutedouard rosario [facility] 6 11:38:22 Dysuria 90558444 Completed 201109/15/2013 IMPRESSI ON: 3+ LEUKOCYT ES ON UA TODAY, COMPLETE D BACTRIM 2 DAYS AGO, START CIPRO AND SEND CULTURE; RECORDED 10/31/19 12 2:41PM BY NICKY WOODS ON/ADDEN DUM Becky rosario [facility] 7 17:01:13 Hypo-osm olality and or hyponatr emia 159493569 Completed 201109/15/2013 RECORDED 10/31/19 12 2:41PM BY NICKY WOODS ON/ADDEN DUM Michelle Degutedouard rosario [facility] 6 11:38:21 Examinat ion for suspecte d mental disorder Completed 201109/15/2013 RECORDED 10/31/19 12 2:41PM BY NICKY WOODS ON/ADDEN DUM Michelle Degutedouard rosario [facility] 6 11:38:22 Tachycar wesley [id number] Completed 201109/15/2013 RECORDED 10/31/19 12 2:42PM BY NICKY WOODS ON/ADDEN DUM Michelle Degutis null, [facility] 6 11:38:22 Vaginiti s and vulvovag initis Completed 201109/15/2013 IMPRESSI ON: VAGINAL ITCHING AFTER COMPLETI NG ANTIBIOT ICS; RECORDED 10/31/19 12 2:42PM BY NICKY WOODS ON/ADDEN DUM Michelle Degutis null, [facility] 6 11:38:22 Anemia due to chronic blood loss 255956769 Completed 201109/16/2013 RECORDED 10/31/19 12 2:42PM BY NICKY WOODS ON/ADDEN DUM Michelle Degutis null, [facility] 6 11:38:21 Chest pain 33842854 Completed 201109/16/2013 RECORDED 10/31/19 12 2:41PM BY NICKY WOODS ON/ADDEN DUM Michelle Degutis null, [facility] 6 11:38:22 Divertic ular disease of colon 500439069 Completed 201109/16/2013 STORY: PT WAS SEEN IN OUR OFFICE 11/30/09 FOR RECTAL BLEEDING AND WAS REFERRED TO GI FOR AN EVALUATI ON. THAT EVENING EVERY TIME THE PT ATE SOMETHIN G SHE WOULD BE GOING TO THE BATHROOM TO HAVE A BM THAT WAS FILLED WITH BLOOD. AFTER A FEW TIMES THE PT TOOK HERSELF TO [facility] TO BE EVALUATE D. THE ONLY SX THAT THE PT FELT WAS BLOATING AND CRAMPING EVERYTIM E SHE ATE. PT HAD TO UNDERGO A COLONOSC OPY WITCH SHOWED THAT THE PT HAD BLEEDING COMING FROM THE ASCENDIN G,DESCEN DING, AND TRANSVER SE COLON. PT WAS LATER TRANSFER RED [place] [facility] [place]. PT WAS THEN PLACED ON A LIQUID DIET UNTIL THE TIME WHERE SHE COULD TOLERATE SOLID FOOD WITH OUT PASSING A BM THAT WAS BLOODY. MEDICATI ON HAS BEEN RECONSIL ED WITH THE PT AND SHE WILL F/U WITH MGD 12/21/09 .; RECORDED 10/31/19 12 2:41PM BY NICKY WOODS ON/ADDEN DUM Michelle Ervin null, [facility] 6 11:38:21 Hemorrha ge of colon 31083100 Completed 201109/16/2013 STORY: STABLE/ STILL ANEMIC; RECORDED 10/31/19 12 2:41PM BY NICKY WOODS ON/ADDEN DUM Michelle Antonioutedouard null, [facility] 6 11:38:22 Dysuria 77149985 Completed 201109/16/2013 IMPRESSI ON: 3+ LEUKOCYT ES ON UA TODAY, COMPLETE D BACTRIM 2 DAYS AGO, START CIPRO AND SEND CULTURE; RECORDED 10/31/19 12 2:41PM BY NICKY WOODS ON/ADDEN DUM [facility] 7 17:01:13 Hypo-osm olality and or hyponatr emia 615650088 Completed 201109/16/2013 RECORDED 10/31/19 12 2:41PM BY NICKY WOODS ON/ADDEN DUM Michelle Ervin null, [facility] 6 11:38:21 Examinat ion for suspecte d mental disorder Completed 201109/16/2013 RECORDED 10/31/19 12 2:41PM BY NICKY WOODS ON/ADDEN DUM Michelle Antonioutis null, [facility] 6 11:38:22 Tachycar wesley [id number] Completed 201109/16/2013 RECORDED 10/31/19 12 2:42PM BY NICKY WOODS ON/ADDEN DUM Michelle Antonioutis null, [facility] 6 11:38:22 Vaginiti s and vulvovag initis Completed 201109/16/2013 IMPRESSI ON: VAGINAL ITCHING AFTER COMPLETI NG ANTIBIOT ICS; RECORDED 10/31/19 12 2:42PM BY JEREL WOODSATI ON/ADDEN DUM Michelle Degutis null, [facility] 6 11:38:22 Screenin g for malignan t neoplasm of colon Completed 201208/23/2013 RECORDED 04/30/19 13 2:37PM BY TEA HANDY MA, NICKY ON/ADDEN DUM Michelle Degutis null, [facility] 6 11:38:22 Influenz a vaccine needed [id number] 06 Completed 201208/23/2013 RECORDED 04/30/19 13 2:37PM BY TEA HANDY MA, NICKY ON/ADDEN DUM Michelle Degutis null, [facility] 6 11:38:22 Follow-u p encounte r Completed 201208/23/2013 RECORDED 04/30/19 13 2:37PM BY TEA HANDY MA, NICKY ON/ADDEN DUM Michelle Degutis null, [facility] 6 11:38:22 Adult health examinat ion Completed 201208/23/2013 RECORDED 04/30/19 13 2:37PM BY TEA HANDY MA, NICKY ON/ADDEN DUM Becky Norton MA null, [facility] 7 17:01:05 Renewal of prescrip tion Completed 201208/23/2013 RECORDED 04/30/19 13 2:37PM BY TEA HANDY MA, NICKY ON/ADDEN DUM [place] Degutis null, [facility] 6 11:38:22 Retentio n of urine 433255039 Completed 201208/23/2013 RECORDED 04/30/19 13 2:37PM BY TEA HANDY MA, NICKY ON/ADDEN DUM Michelle Degutis null, [facility] 6 11:38:22 Screenin g for malignan t neoplasm of colon Completed 201209/15/2013 RECORDED 04/30/19 13 2:37PM BY TEA HANDY MA, NICKY ON/ADDEN DUM Michelle Degutis null, [facility] 6 11:38:22 Influenz a vaccine needed [id number] 06 Completed 201209/15/2013 RECORDED 04/30/19 13 2:37PM BY TEA HANDY MA, NICKY ON/ADDEN DUM [place] Degutis null, [facility] 6 11:38:22 Follow-u p encounte r Completed 201209/15/2013 RECORDED 04/30/19 13 2:37PM BY TEA HANDY MA, NICKY ON/ADDEN DUM Michelle Degutis null, [facility] 6 11:38:22 Renewal of prescrip tion Completed 201209/15/2013 RECORDED 04/30/19 13 2:37PM BY TEA HANDY MA, NICKY ON/ADDEN [facility] Degutis null, [facility] 6 11:38:22 Retentio n of urine 995632546 Completed 201209/15/2013 RECORDED 04/30/19 13 2:37PM BY TEA HANDY MA, [facility]Y [facility] Degutis null, [facility] 6 11:38:22 Screenin g for malignan t neoplasm of colon Completed 201209/16/2013 RECORDED 04/30/19 13 2:37PM BY TEA HANDY MA, NICKY ON/ADDEN DUM [place] Degutis null, [facility] 6 11:38:22 Influenz a vaccine needed [id number] 06 Completed 201209/16/2013 RECORDED 04/30/19 13 2:37PM BY TEA HANDY MA, NICKY ON/ADDEN DUM Michelle Degutis null, [facility] 6 11:38:22 Follow-u p encounte r Completed 201209/16/2013 RECORDED 04/30/19 13 2:37PM BY TEA HANDY MA, ANNOTATI ON/ADDEN DUM Michelle Degutis abraham, [facility] 6 11:38:22 Renewal of prescrip tion Completed 201209/16/2013 RECORDED 04/30/19 13 2:37PM BY TEA HANDY MA, ANNOTATI ON/ADDEN DUM Michelle Degutis abraham, [facility] 6 11:38:22 Retentio n of urine 117699223 Completed 201209/16/2013 RECORDED 04/30/19 13 2:37PM BY TEA HANDY MA, ANNOTATI ON/ADDEN DUM Michelle Degutis abraham, [facility] 6 11:38:22 Anxiety state 478471747 Active 2012 Becky rosario, [facility] 7 17:00:55 Tobacco user [id number] Completed 201208/23/2013 RECORDED 01/28/20 13 1:17PM BY ALEXANDRE AGUILAR MA, ANNOTATI ON/ADDEN DUM Becky rosario, [facility] 7 17:00:35 History of clinical finding in subject 969111941 Completed 201209/17/2016 RECORDED 01/28/20 13 1:17PM BY ALEXANDRE AGUILAR MA, ANNOTATI ON/ADDEN DUM Becky rosario, [facility] 7 17:01:11 Asthma 913019984 Active 2012 Becky rosario, [facility] 7 17:00:52 Gastroes ophageal reflux disease 173246410 Active 2012 Becky rosario, [facility] 7 17:00:59 Essentia l hyperten julisa 30543670 Active 2012 Becky rosario [facility] 7 17:01:17 External hemorrho ids 48161601 Active 2012 Becky Bigby [place] null, [facility] 7 17:01:03 Tobacco user 914264295 Active 2012 Becky rosario, [facility] 7 17:00:35 Adult health examinat ion Completed 201209/17/2016 STORY: COLONOSC OPY DUE SS/TUBUL AR ADENOMA; RECORDED 01/28/20 13 1:58PM BY RICARDO COLE MD, OFFICE VISIT Becky rosario, [facility] 7 17:01:05 Hearing loss 99005682 Active 2012 Becky rosario, [facility] 7 17:00:40 Impacted cerumen 05827625 Completed 201208/23/2013 RECORDED 01/28/20 13 1:17PM BY ALEXANDRE AGUILAR MA, ANNOTATI ON/ADDEN DUM Becky rosario [facility] 7 17:00:46 Irritabl e bowel syndrome 33763948 Active 2012 Becky rosario, [facility] 7 17:00:31 Pre-surg girish evaluati on Completed 201208/23/2013 IMPRESSI ON: PT IS MEDICALL Y ABLE TO UNDERGO SURGERY, NO ACTIVE ISSUES, IS ABLE TO LAY FLAT AND STILL, EKG NL AND WILL GET LABS; RECORDED 01/28/20 13 1:17PM BY ALEXANDRE AGUILAR MA, ANNOTATI ON/ADDEN DUM Michelle rosario [facility] 6 11:38:22 Tobacco user [id number] Completed 201209/15/2013 RECORDED 01/28/20 13 1:17PM BY ALEXANDRE AGUILAR MA, ANNOTATI ON/ADDEN DUM Becky rosario, [facility] 7 17:00:35 Impacted cerumen 46714015 Completed 201209/15/2013 RECORDED 01/28/20 13 1:17PM BY ALEXANDRE AGUILAR MA, ANNOTATI ON/ADDEN DUM Becky rosario, [facility] 7 17:00:46 Pre-surg girish evaluati on Completed 201209/15/2013 IMPRESSI ON: PT IS MEDICALL Y ABLE TO UNDERGO SURGERY, NO ACTIVE ISSUES, IS ABLE TO LAY FLAT AND STILL, EKG NL AND WILL GET LABS; RECORDED 01/28/20 13 1:17PM BY ALEXANDRE AGUILAR MA, ANNOTATI ON/ADDEN DUM Michelle Aziza rosario, [facility] 6 11:38:22 Tobacco user [id number] Completed 201209/16/2013 RECORDED 01/28/20 13 1:17PM BY ALEXANDRE AGUILAR MA, ANNOTATI ON/ADDEN DUM Becky rosario, [facility] 7 17:00:35 Impacted cerumen 72956838 Completed 201209/16/2013 RECORDED 01/28/20 13 1:17PM BY ALEXANDRE AGUILAR MA, ANNOTATI ON/ADDEN DUM Becky rosario, [facility] 7 17:00:46 Pre-surg girish evaluati on Completed 201209/16/2013 IMPRESSI ON: PT IS MEDICALL Y ABLE TO UNDERGO SURGERY, NO ACTIVE ISSUES, IS ABLE TO LAY FLAT AND STILL, EKG NL AND WILL GET LABS; RECORDED 01/28/20 13 1:17PM BY ALEXANDRE AGUILAR MA, ANNOTATI ON/[facility] DUM Michelle Degutedouard rosario [facility] 6 11:38:22 History of Malignan t melanoma 571957148 Active 2013 Becky rosario [facility] 7 17:00:45 Malignan t melanoma of skin 50385241 Active 2013 Becky rosario [facility] 7 17:01:28 Urinary tract infectio us disease 50324884 Active 2013 Becky Bigby [place] null, [facility] 7 17:01:20 Screenin g for malignan t neoplasm of breast Completed 201410/31/2016 Dr. Susy Ortega, negative Beckybridger Norton ELLIOTT rosario [facility] 7 13:35:13 Chronic low back pain 769289477 Active 2018 Rebeca Jeffery abraham [facility] 9 14:22:51 Problem Notes None recorded. Procedures Surgical History Date Name Laterality Status Provider Name and Address Organization Details Recorded Time 01/21/20 19 Mini-Cog Test completed Leila Julien MA [facility] 01/20/2019 09:52:44 12/30/19 18 Most Recent Mammogram completed Lelia Julien MA [facility] 01/20/2019 09:47:42 12/19/19 18 Mini-Cog Test completed Naheed Veliz [facility] 12/18/2017 13:13:25 12/02/19 17 Fall Risk Assessment completed Becky Norton MA [facility] 12/01/2016 13:22:35 12/02/19 17 Mini-Cog Test completed Becky Norton MA [facility] 12/01/2016 13:23:31 11/29/19 17 Mammogram both breasts completed Kimmy Yañez [facility] 12/09/2016 14:44:18 10/17/19 17 Date of Last Colonoscopy completed Paola Kendall [facility] 12/09/2016 16:54:35 10/17/19 17 Colonoscopy completed Becky Norton MA [facility] 10/24/2016 11:43:36 03/23/19 16 Fall Risk Assessment completed Becky Norton MA [facility] 03/23/2015 13:55:01 03/23/19 16 Mini-Cog Test completed Becky Norton MA [facility] 03/23/2015 14:02:26 03/23/19 16 Advanced Care Planning completed Becky Norton MA [facility] 03/23/2015 13:41:44 08/19/19 15 Date of Last Pap Smear completed Michelle Ervin [facility] 03/28/2015 11:40:33 02/23/19 11 Most Recent Bone Density completed Becky Norton MA [facility] 03/23/2015 14:07:39 02/09/19 08 Appendectomy completed Tea Handy [facility] 03/02/2014 10:46:37 Imaging Results None recorded. Procedure Notes None recorded. Medical Equipment None Reported. Allergies Allergen ID Allergen Name Allergen Category Reaction Reaction Severity Criticality Documentation Date Start Date Code Code System Note Provider Name and Address Organization Details Recorded Time 2935 latex environme nt,medica tion rash Not available Not available 08/23/20132012 16610 91 RxNorm Beckybridger Norton [facility] 7 17:00:18 Medications Name Sig Start Date [...] 03/29/19 10 3:00PM BY PILLO Masters NP[facility]; Not Available Not Available Not [...] 12/22/19 10 2:51PM BY RICARDO COLE MD, [facility] DUM; Not Available Not Available Not [...] Updated DateTime 8 154.94 cm 31.4 kg/m2 81080.4 3 g 98.7 [degF] 96 % 96 % 89 /min 118/76 mm[Hg] Becky Norton MA [facility] 8 11:28:28 Date Recorded Body height Body mass index (BMI) Body weight Heart rate Oxygen saturation Oxygen saturation in Arterial blood by Pulse oximetry Body temperature Systolic And Diastolic Provider Name and Address Organization Details Last Updated DateTime 9 154.94 cm 30.2 kg/m2 95537.7 8 g 92 /min 96 % 96 % 98.4 [degF] 124/78 mm[Hg] [facility] 9 12:59:19 Date Recorded Body height Body mass index (BMI) Body weight Heart rate Oxygen saturation Oxygen saturation in Arterial blood by Pulse oximetry Body temperature Systolic And Diastolic Provider Name and Address Organization Details Last Updated DateTime 8 154.94 cm 30.8 kg/m2 03842.5 6 g 94 /min 97 % 97 % 97.5 [degF] 136/74 mm[Hg] Viola Medina [facility] 8 10:41:30 Date Recorded Body height Body mass index (BMI) Body weight Body temperature Heart rate Oxygen saturation Oxygen saturation in Arterial blood by Pulse oximetry Systolic And Diastolic Provider Name and Address Organization Details Last Updated DateTime 8 154.94 cm 30.5 kg/m2 90739.4 7 g 97.2 [degF] 86 /min 96 % 96 % 123/72 mm[Hg] Naheed Jose Alfredo [facility] 8 12:57:56 Date Recorded Body height Body mass index (BMI) Body weight Oxygen saturation Oxygen saturation in Arterial blood by Pulse oximetry Heart rate Body temperature Systolic And Diastolic Provider Name and Address Organization Details Last Updated DateTime 9 154.94 cm 30.7 kg/m2 05425.0 6 g 96 % 96 % 81 /min 98.1 [degF] 119/67 mm[Hg] Leila Julien MA [facility] 9 09:56:35 Social History Question Answer Notes LastModified by Organizat ion Details LastModified Time Tobacco Smoking Status Former Smoker ELLIOTT Plascencia [facility] [place] 09/08/2013 11:26:06 Do You [...] Much Tobacco Do You Smoke? 1 PPW [email or web address] Information not available 01/20/2019 General Stress Level [...] used smokeless tobacco? Never used smokeless tobacco [email or web address] Information not available 01/20/2019 Are you currently employed? Yes Information not available 03/02/2014 Are you able to care for yourself? 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 Information not available 03/02/2014 Do you or [...] 13 5 completed Not Available [facility] 02/26/2019 02:21:36 Influenza, split virus, quadrivalent, PF 5 completed Becky rosario [facility] 03/23/2015 14:06:48 Influenza, high-dose, trivalent, PF 7 completed Not Available [facility] 02/26/2019 02:22:21 Novel [id number], all formulations 0 completed Not Available [facility] 08/23/2013 13:38:52 pneumococcal polysaccharide PPV23 0 completed Not Available [facility] 08/23/2013 13:38:52 Influenza, split virus, trivalent, preservative 0 completed Not Available [facility] 08/23/2013 13:38:52 Influenza, split virus, trivalent, preservative 1 completed Not Available [facility] 08/23/2013 13:38:52 Influenza, split virus, trivalent, preservative 2 completed Not Available [facility] 08/23/2013 13:38:52 Influenza, split virus, trivalent, preservative 3 completed Not Available [facility] 08/23/2013 13:38:52 Influenza, high-dose, trivalent, PF 8 completed Not Available [facility] 02/26/2019 02:22:14 Influenza, high-dose, trivalent, PF 9 completed Not Available [facility] 02/26/2019 02:22:09 Past Encounters Encounter ID Performer Location Encounter Start Date Encounter Closed Date Diagnosis/Indication Diagnosis SNOMED-CT Code Diagnosis ICD10 Code Diagnosis Note [id number] NICOLÁS Cheung Main Office [address] [place] [address] 09/08/2013 11:14:56 09/08/2013 11:58:13 Essential hypertension 31566786 well controlled Asthma 489772651 followe d by pulm, well controlled on symbicort Anxiety state 174574332 Impacted cerumen 47971324 successful ly removed with ear lavage [id number] autoEComm erce [address] [facility] [place] [address] 03/01/2009 00:00:[id number] [facility] [address] [place] [address] 03/29/2009 00:00:00 [id number] [address]Comm erce [address] [place] [address] 09/10/2009 00:00:00 [id number] [place] [address] 11/13/2009 00:00:[id number] [facility] [address] [place] [address] 11/30/2009 00:00:00 [id number] autoEComm erce [address] [facility] [place] [address] 12/21/2009 00:00:00 [id number] autoEComm erce [address] [facility] [place] [address] 02/11/2010 00:00:00 [id number] autoEComm erce [address] [facility] [place] [address] 05/17/2010 00:00:00 [id number] autoEComm erce [address] [facility] [place] [address] 08/23/2010 00:00:00 [id number] autoEComm erce [address] [facility] [place] [address] 09/04/2010 00:00:00 [id number] autoEComm erce [address] [facility] [place] [address] 11/29/2010 00:00:[id number] [facility] [address] [place] [address] 01/10/2011 00:00:00 [id number] autoEComm erce [address] [facility] [place] [address] 05/02/2011 00:00:00 [id number] autoEComm erce [address] [facility] [place] [address] 10/31/2011 00:00:00 [id number] [address] [place] [address],[address] [place] [address] 04/29/2012 00:00:00 [id number] autoEComm erce [address] [facility] [place] [address] 07/15/2012 00:00:00 [id number] [address] [place] [address],[address] [place] [address] 01/27/2013 00:00:00 [id number] Ramon Callahan MD Main Office [address] [address] [place] [address] 09/26/2013 13:41:44 09/26/2013 14:55:33 Dermatitis 687987190 candidal dermatitis [id number] Ricardo medellin MD Main Office [address] [address] [place] [address] 03/02/2014 12:39:53 03/02/2014 13:42:38 Essential hypertension 12372521 Hyponatremia 62421004 pt to see Dr Pride regularly/ pt aware that she needs to stop using clorazepat e / see psych referral Anxiety state 383915342 Dysuria 11275134 [id number] Ricardo medellin MD Main Office [address] [address] [place] [address] 04/21/2014 14:46:19 04/21/2014 15:48:33 Essential hypertension 55268542 both meds helpful/ Diltiazem and lisinopril Gastroesop hageal reflux disease 054187100 pt on PPI Anxiety state 314340827 Asthma 755806336 [id number] Ricardo medellin MD Main Office [address] [address] [place] [address] 03/23/2015 13:27:48 03/23/2015 14:47:01 Adult health examination 563940580 Z00.00 At [facility] ed risk for falls 515636689 Z91.81 Advance di rective discussed with patient 349684636 Z71.89 pt will have her brother as health care proxy Essential hypertension 22055431 I10 both meds helpful/ Diltiazem and lisinopril Polyp of colon 05674206 K63.5 pt due for colonoscop y 2016 /tubular adenoma/We iss Asthma 830436013 J45.90 9 Anxiety state 516331919 F41.1 [id number] Ricardo medellin MD Main Office [address] [address] [place] [address] 10/05/2015 12:46:12 10/05/2015 13:40:50 Essential hypertension 07625226 I10 both meds helpful/ Diltiazem and lisinopril Asthma 622465244 J45.90 9 urged pt to get flu shot soon. Anxiety state 770988875 F41.1 [id number] Ricardo medellin MD Main Office [address] [address] [place] [address] 06/19/2016 12:55:50 06/19/2016 14:13:50 Fatigue 79169084 R53.83 Abnormal weight loss 267 238231 R63.4 Diarrhea 53528462 R19.7 Nausea 006350565 R11.0 d/w pt to elevate HOB/ cont PPI Impaired f asting glycemia 553507257 R73.01 [id number] Ricardo medellin MD Main Office [address] [address] [place] [address] 10/23/2016 14:30:06 10/23/2016 15:27:24 [id number] Ricardo medellin MD Main Office [address] [address] [place] [address] 10/31/2016 13:21:48 10/31/2016 14:41:18 Lumbosacral radiculitis 70017043 M54.17 Influenza vaccine needed 6160804851 106 Z23 [id number] Ricardo medellin MD Main Office [address] [address] [place] [address] 12/01/2016 13:04:53 12/01/2016 14:09:38 Adult health examination 516081420 Z00.00 Essential hypertension 65192370 I10 both meds helpful/ Diltiazem and lisinopril Anxiety state 827057371 F41.1 [id number] Ricardo medellin MD Main Office [address] [address] [place] [address] 05/15/2017 11:16:16 05/15/2017 12:12:51 Anxiety state 763932192 F41.1 Essential hypertension 55080641 I10 both meds helpful/ Diltiazem and lisinopril Incomplete emptying of urinary bladder 535971445 R39.14 [id number] Denis Marcos [facility] Main Office [address] [address] [place] [address] 11/13/2017 10:36:20 11/13/2017 11:18:17 Anxiety state 738706767 F41.1 has been on med for 20+ years, she is taking 3.75mg daily, will try to cut the dose in half if possible. f/u in 1 month for wellness visit. Influenza vaccine needed 9439244462 106 Z23 Gastroesop hageal reflux disease 419794140 K21.9 Essential hypertension 74405133 I10 well controlled , continue meds as directed. [id number] Denis Marcos [facility] Main Office [address] [address] [place] [address] 12/18/2017 12:40:39 12/18/2017 13:46:58 Adult health examination 829108940 Z00.00 hm UTD, she will call MANAGER PATIENT for appt Varicella vaccination 68 156518 Z23 Asthma 817942665 J45.90 9 Essential hypertension 29085485 I10 well controlled , continue meds as directed. Family his tory of Hypercholesterolemia 539042837 Z83.49 Anxiety state 558533785 Edi.1 has been on med for 20+ years, she is taking 3.75mg daily, will try to cut the dose in half if possible. f/u in 1 month for wellness visit. [id number] Solomon Hemphill MD Main Office [address] [address] [place] [address] 06/11/2018 12:42:51 06/11/2018 13:40:40 Low back pain 988521376 M54.5 Patient with chronic low back pain, in PT, seeing chiropract or, but wondering if she should be seeing someone else. Will check XR and refer back to [facility], she has seen them for this in the past. continue sx treatment, ibuprofen as needed. Cramp in lower limb 4499 93088 R25.2 Essential hypertension 22361779 I10 well controlled , continue meds as directed. Fatigue 42771981 R53.83 [id number] Solomon Hemphill MD Main Office [address] [facility] [place] [address] 01/20/2019 09:41:15 01/20/2019 10:33:29 Adult health examination 653567335 Z00.00 UTD, she has mammo scheduled, needs to call MANAGER PATIENT. Influenza vaccine needed 3985377237 106 Z23 Impaired f asting glycemia 347028924 R73.01 in June, sugar 125 and she believes she was fasting Hyperlipidemia 19704842 E78.5 Health Concerns Section Related Observation LastModified by Organization Detai ls LastModified Time None Recorded Concern Status LastModified by Organization Details LastModified Time None Recorded Advance Directives Directive Y: Payers Insurance Date Sequence Insurance Name Policy Number Policy Menendez Covered Member ID Menendez Member ID Guarantor Name 09/10/2016 1 [employer] [place] - MEDICARE ADVANTAGE PLAN (MEDICARE REPLACEMENT HMO) [id number] Noris Hou [id number] Noris Hou 07/19/2019 2 [place] [id number] Noris Hou [id number] Noris Hou 07/19/2019 1 [place] Noris Hou [id number] Noris Hou Notes Date Note Type Note Provider Name and Address Organization Details Recorded Time 05/15/2017 text/html Anxiety/Depressi onRepo rted bypatient.Quality:incr eased anxiety; pt reports that sthe plans to return to her pschologist Dr Valdes this year Severity:able to maintain relationships Associated Symptoms:no significant weight gain; mood good; 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 , > 20 [...] no fever;incomplete emptying of bladder Ricardo rosario [facility] 05/15/2017 12:16:47 11/13/2017 text/html Anxiety/Depressi onRepo rted bypatient.Quality:incr eased anxiety; stress, car trouble Severity:able to maintain relationships Context:major life stressors;family problems Associated Symptoms:no significant weight gain;high irritability;hostility ;anxiety;hypersensitiv ity;anxiety with muscle tension; 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 DR saw Dr. Miller at [facility]. Was discharged in 2017 due to improvement with PT. 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 Since the fall her back pain is worse. NICOLÁS Fay [address] [address], [place], [address], [facility] [place] 06/11/2018 13:40:34 01/20/2019 text/html Medicare [...] states she found a new PCP in [place] but cannot be seen until May. [facility] [address] [address], [place], [address], [facility] 01/20/2019 10:57:40 OBGyn Episode No OBEpisode recorded.
== END 2024-08-29 12:37 | disposition home or self-care (01) ==
LOC: HO.HMCFM 11:18
PROVIDERS: PCP Family Medicine; Visit Provider Family Medicine
DX: C30.0 Malignant neoplasm of nasal cavity (principal); I10 Essential (primary) hypertension; M79.89 Other specified soft tissue disorders

== ENCOUNTER → 2024-08-29 11:17 | Outpatient (BNVA) | payer MEDICARE, MEDICAID, SELFPAY | PROVIDERS: PCP Family Medicine; Visit Provider Family Medicine | DX: C30.0 Malignant neoplasm of nasal cavity (principal); I10 Essential (primary) hypertension; M79.89 Other specified soft tissue disorders | CPT/HCPCS: 99212 ==

== ENCOUNTER 2024-09-06 13:33 | Outpatient (AMB) | payer MEDICARE, MEDICAID, SELFPAY ==
--- OUTSIDE RECORDS SUMMARY | 2024-09-02 23:59 | XMS_ITS | Continuity of Care Document ---
Author Organization [facility] Address [address] [place] [address]- Care Team Providers Care Central Office Equipment Engineer Name Role Phone Basia AGUILA, Ric Greene Primary Care Physician [phone] Encounter [facility] ACCT R [id number] Date(s): 08/03/24 - 09/02/24 [facility] [address] [place] [address] Attending Physician: Jeni Aleman Admitting Physician: AdmtrJeni Referring Physician: Admtr ArReza Encounter Type: Triage Allergies, Adverse Reactions, Alerts Substance Criticality Severity Reaction Reaction Severity Status Latex Unable to assess criticality Unknown rash Active Immunizations Given and Recorded Vaccine Date Status Refusal Reason tetanus/diphtheria/pertussis, acel(Tdap) 10/06/22 Given tetanus/diphtheria/pertussis, acel(Tdap) 08/27/11 Recorded SARS-CoV-2 mRNA ([id number]) vax 03/29/21 Recorded SARS-CoV-2 (COVID-19) mRNA BNT-162b2 vac 05/12/20 Recorded SARS-CoV-2 (COVID-19) mRNA BNT-162b2 vac 04/21/20 Recorded influenza virus vaccine, inactivated 10/28/19 Marty rded influenza virus vaccine, inactivated 01/20/19 Marty rded influenza virus vaccine, inactivated 11/13/17 Marty rded influenza virus vaccine, inactivated 10/31/16 Marty rded influenza virus vaccine, inactivated 10/1/15 Marty rded influenza virus vaccine, inactivated 12/10/12 [...] 4 Refills, Maintenance, 05/12/22 11:49:00 AM EDT, [facility]/pharmacy #[id number], Partial fill upon patient request if [...] Position: S Outreach Member Role: PCP Address: [address] [place] [address] Telecom: Care Team Related Persons Name: LUISITO LUZ Name: CLAUDIA ELENA Name: FIDENCIO MAGAÑA Insurance Providers Guarantor name: Alicanto Plan Information #: 1 Payer: MEDICARE B Payer Identifier: NA Member Number: [id number] Group Number: [id number] Subscriber Identifier: [id number] Relationship to Subscriber: self Coverage Type: NA Coverage Verification Date: Telecom: Address: [facility] Information #: 2 Payer: MEDEX SECONDARY ONLY Payer Identifier: [place] Member Number: [id number] Group Number: [id number] Subscriber Identifier: [id number] Relationship to Subscriber: self Coverage Type: Medicare Other Coverage Verification Date: Telecom: Address: [facility] Information #: 3 Payer: [employer]ER [employer] Payer Identifier: [place] Member Number: [id number] Group Number: [id number] Subscriber Identifier: [id number] Relationship to Subscriber: self Coverage Type: MEDICAID Coverage Verification Date: Telecom: Address:
--- NOTE | 2024-09-06 13:55 | A.OFFPC_ITS ---
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: No Allergies Seasonal Allergies Allergy (Mild, Verified 09/08/24 11:52) runny nose latex Allergy (Verified 09/08/24 11:52) rash Medication List - Last Reconciled 09/06/24 by Ric Flor MD albuterol sulfate 90 mcg/actuation 2 puffs inhalation Q8H PRN budesonide-formoterol 160-4.5 mcg/actuation inhalation cetirizine (Zyrtec) 10 mg PO DAILY PRN cholecalciferol (vitamin D3) 50 mcg PO DAILY citalopram 20 mg PO DAILY 90 days clonazepam 0.5 mg PO BID PRN diltiazem HCl CD 120 mg PO DAILY 90 days gabapentin 300 mg PO DAILY losartan 12.5 mg PO DAILY omeprazole 20 mg PO DAILY tamsulosin 0.4 mg PO BEDTIME 90 days warfarin 2 mg See Protocol PO DAILY 30 days Tobacco use date assessed: 08/29/24 Dental Screening Dental Screen Date: 08/29/24 HPI Dental HPI Details Patient presents for preoperative clearance prior to dental extractions Procedure: Dental extractions x 3 Date: 09/09/2024 Surgeon: Dr Mariee Anesthesia: General Cardiac Hx: None. Pulmonary Hx: Asthma-COPD overlap, History of PE Prior Surgical Complications: None Prior Anesthesia Complications: None Coag Issues: History of DVT. Chronic anticoagulation with warfarin. Functional [place]: Walks 1/4 mile for exercise, regularly without stopping. [facility] Medical History (Updated 09/06/24 @ 13:54 by Ric Flor MD) Swelling of both lower extremities Pulmonary emboli (~01/2022) Skin cancer History of COVID-19 Essential hypertension Chronic allergic rhinitis Hyponatremia Asthma-COPD overlap syndrome Surgical History History of esophagogastroduodenoscopy (EGD) History of colonoscopy Family History Mother Breast cancer Father Prostate CA Stroke Social History Household Members: None Housing: House Housing Other:: mobile home- friend to be moving in Alcohol intake: current Alcohol intake frequency: 0-2 drinks per day Patient Tobacco Use Status: Former Tobacco user Tobacco use type: Cigarette Cigarette Packs Per Day: 1.0 Years Smoked: 10 years e-Cigarette/Vaping Use: Never Used Second Hand Smoke Exposure: No service: No Current occupational status: retired 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 - she use to work in a [employer] - thinks her COPD r/t Current occupational exposures/hazards: No Cognitive needs: No Hearing needs: No Vision needs: No Questionnaire Thrive Questionnaire Date Thrive assessed: 05/11/24 I am a: Patient What is your living situation today?: I have a steady place to live Within the past 12 months, did the food you bought not last and you didn't have the money to get more?: Sometimes True Within the past 12 months, did you worry whether your food would run out before you got money to buy more?: Sometimes True Do you have trouble paying for medicines?: No Do you have trouble getting transportation to medical appointments?: No Do you have trouble paying your heating and electricity bill?: No Do you have trouble taking care of your child, family member or friend?: No Do you have trouble with day-to-day activities such as bathing, preparing meals, shopping, managing finances, etc.?: No Are you currently unemployed and looking for a job?: No Are you interested in more education?: No Please select the resources that you would like help with: None Currently or been in a relationship where the following occur: No concerns reported THRIVE Score: 2 ROEL-7 AMB Questionnaire ROEL-7 Date ROEL - 7 assessed: 05/17/24 Source: Developed by Drs. Harsha Hood, Diana Mendoza, Kristopher Villa and colleagues, with an educational johnie from [employer]. Review of Systems Const Denies chills, Denies fatigue, Denies fever(s), Denies headache(s) and Denies weakness ENT Denies dizziness and Denies headache(s) Card Denies dyspnea Resp Denies cough, Denies dyspnea, Denies wheezing and Denies other (shortness of breath) Musc Denies numbness and Denies tingling Neuro Denies dizziness, Denies headache(s), Denies numbness, Denies tingling and Denies weakness Psych Denies anxiety and Denies depression Endo Denies fatigue Aller/Immun Denies wheezing Physical exam (Primary Care) Vital Signs: Last Vital Signs Temp 97.3 F 09/06/24 13:56 Pulse 96 09/06/24 13:56 Resp 14 09/06/24 13:56 BP 106/60 09/06/24 13:56 Pulse Ox 95 09/06/24 13:56 Oxygen Delivery Method Room Air 09/06/24 13:56 BMI result Body Mass Index 27.1 Tobacco/Smoking Status: Tobacco use Status Tobacco use date assessed 08/29/24 09/06/24 13:58 Patient Tobacco Use Status Former Tobacco user 09/06/24 13:58 Tobacco use type Cigarette 09/06/24 13:58 e-Cigarette/Vaping Use Never Used 09/06/24 13:58 Thrive Assessment: Date of Thrive Assessment Date Thrive assessed 05/11/24 09/06/24 13:58 Currently or been in a relationship where the following occur: No concerns r eported Const General: well developed; No acute distress Nutritional Appearance: well nourished Orientation/consciousness: patient oriented [facility]3 [facility]: Yes normocephalic and Yes atraumatic Eyes General: appearance normal, both eyes and all related structures Pupils: Equal, round and reactive pupils present EOM: EOMs intact bilaterally Resp Effort & Inspection: normal respiratory effort Auscultation: clear to auscultation bilaterally Cardio Rate: regular rate Rhythm: regular rhythm Heart sounds: S1 normal heart sound present, S2 normal heart sound present, no gallops, no murmurs and no rubs Neuro General: patient oriented x3 and gait normal Cranial nerves: Yes Equal, round and reactive pupils present Psych Affect: normal affect Coding Level of Care Code Est Pt Level 3 (90928) Diagnoses Pre-op exam Z01.818 custodial current use of anticoagulant Z79.01 Assessment & Plan Assessment & Plan (1) Pre-op exam: Code(s): Z01.818 - Encounter for other preprocedural examination Category: Medical (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 Cardiac exam today is within normal limits. EKG: Normal sinus rhythm with mild left axis deviation, no hypertrophy, no ST-T-wave changes. Unchanged from prior EKG 09/2023 History of COPD-asthma overlap syndrome well controlled on current inhaled medications. Also history of PE greater than 2 years ago. No complications with prior surgeries or anesthesia Patient has had history of DVT and PE. She is currently chronically anticoagulated with Coumadin. Fair-good functional reserve. Intermediate risk patient for low risk procedure. Currently optimized for surgical procedure except awaiting decrease in INR which will be checked on -see below * Otherwise, no contraindications to proceeding with proposed procedure. Patient will hold Coumadin today through Thursday. Will recheck INR on . Can resume Coumadin that evening after her surgery. Orders: Orders Basic Metabolic Panel Today Z01.818 - Encounter for other preprocedural ex amination Prothrombin Time INR 09/07/24 Z79.01 - custodial (current) use of anticoagulants
[2024-09-06 13:56] VITALS: BP 106/60; PULSE 96; RESP 14; TEMP 36.3; O2SAT 95; BMI 27.1
--- OUTSIDE RECORDS SUMMARY | 2024-09-06 14:23 | XMS_ITS ---
Author Organization [facility] Address [address] [place] [address] Phone Care Team Providers Care Clinical Dental Technician Name Role Phone Ric Flor MD Primary Care Provider Syd Maria MD Unavailable [phone] Active Problems Problem Noted Date Diagnosed Date [...] FEW TIMES THE PT TOOK HERSELF TO [facility] TO BE EVALUATED. THE ONLY SX THAT THE PT FELT WAS BLOATING AND CRAMPING EVERYTIME SHE ATE. PT HAD TO UNDERGO A COLONOSCOPY WITCH SHOWED THAT THE PT HAD BLEEDING COMING FROM THE ASCENDING,DESCENDING, AND TRANSVERSE COLON. [place] LAT[place] [facility] [place]. [...]
--- OUTSIDE RECORDS SUMMARY | 2024-09-06 14:23 | XMS_ITS | Clinical Summary ---
Author Organization [facility] Address [address] [place] [address] Care Team Providers Care Plumbing Assembler Name Role Phone Unavailable Primary Care Provider Unavailabl e Source Comments PLEASE NOTE, if this patient is a minor, it may be UNLAWFUL to discuss sensitive information that is contained in these records (such as FAMILY PLANNING, MENTAL HEALTH or SUBSTANCE ABUSE) with the minor patient's parent or other person without the patient's specific authorization.[facility] Medications warfarin sodium (COUMADIN ORAL) Take by mouth. Active Active Problems Problem Noted Date Diagnosed Date Asthma ([facility]) 09/06/2024 Hypertension 09/06/2024 COPD (chronic obstructive pu lmonary disease) ([facility]) 09/06/2024 Social History Tobacco Use Types Packs/Day Years Used Date Smoking Tobacco: Never Assessed Comments Unknown Sex and Gender Information Value Date Recorded Sex Assigned at Not on file Legal Sex Female 8:25 AM PDT Gender Identity Not on file Sexual Orientation Not on file Plan of Treatment Upcoming Encounters Date Type Department Care Team (Late st Contact Info) Description 09/09/2024 9:00 AM EDT Office Visit [facility] [address] [place] [address] Josh Dougherty DDS [address] [place] [address] Health Maintenance Due Date Last Done Comments Tobacco Screening 1941 Imm-Zoster, Recombinant (1 of 2) 08/12/1991 Bone Density Screening 2006 Falls Prevention 2006 Advanced Care Planning 03/23/2016 03/23/2015 Imm-RSV (adult) (1 - 1-dose 75+ series) 2016 Day-EIYTU-88 ( season) 2023 03/29/2021, 05/12/2020, 04/21/2020 Alcohol and Drug Screen 02/10/2024 Depression Annual Screen 02/10/2024 Imm-Influenza (#1) 2024 10/28/2019, 1 03/23/2018, 11/13/2017, Additional history exists Imm-DTaP/Tdap/Td (3 - Td or Tdap) 10/06/2032 023, 08/27/2011 Imm-Pneumococcal 50+ Completed 04/21/2014, 03/01/19 10 Insurance [place]
--- OUTSIDE RECORDS SUMMARY | 2024-09-06 14:23 | XMS_ITS | Data Portability ---
Author Organization [facility], Main Office Address [address] [place] [address] Care Team Providers Care Account Administrator Name Role Phone ABDIEL ORTEGA Casino Floor Supervisor GRACIELA MILLER Urologist [phone] ABDIEL LOZANO Biology Instructor [phone] URBAN PRIDE Radio Television Announcer HUMBERTO SINGH Medical Record Librarians Teacher RICARDO HUGHES Chiropractor [facility] Physical Therapist DENIS MARCOS Primary Care Provider Assessment No assessment recorded. Plan of Treatment Reminders Order Date Submit Date Provider Last Modified By Organization Details Last Modified Time Details Appointments None recorded. Lab HbA1c (hemoglob in A1c), blood 2018 019 [facility] (Centralized Electronic Ordering - All Locations), Patient Can Go To The Location Of Their Choice, [id number] 0 09:38:13 BMP, serum or plasma 2018 019 [facility] (Centralized Electronic Ordering - All Locations), Patient Can Go To The Location Of Their Choice, [address] 0 09:38:13 lipid panel, serum 2018 019 [facility] (Centralized Electronic Ordering - All Locations), Patient Can Go To The Location Of Their Choice, [address] 0 09:38:13 magnesium , serum or plasma [...] 15:24:52 CMP, serum or plasma 2017 018 [facility] ([facility] - All Locations), Patient Can Go To The Location Of Their Choice, 11:56:02 Referral spine center referral - patient in 2017, MRI showed crowding L2 nerve root on the left, having worsenign sx of sciatic pain, low back pain, leg pains bilateral ly. 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 Surgeries None recorded. Imaging XR, lumbar spine - chronic low back pain, worsening s/p fall in february [id number] 019 [facility], [address] [place] [address], [address], 9 10:29:46 XR, sacrum + coccyx - s/p fall in february, hx low back arthritis . pain worsening 2018 019 [facility], [address] [place] [address], [address], 9 10:29:44 Medication Orders clorazepa te dipotassi um 3.75 mg tablet 2017 018 [id number], [address] [place], [address], 8 11:18:58 tamsulosi n 0.4 mg capsule 2017 018 [facility], [address] [place], [address], 8 13:01:14 clorazepa te dipotassi um 3.75 mg tablet 2017 018 INTERFACE [id number], [address] [place], [address], 8 12:05:21 Patient TargetsNo targets recorded. Patient Instructions Encounter Date Encounter Id Patient Instructions Last Modified By Organization Details Last Modified Time 11/13/2017 [id number] anxiety disorder: care instructions [email or web address] Not available 11/13/2017 11:18:44 call or return for worsening or concerns. [email or web address] Not available 11/13/2017 11:13:19 I have reviewed the note and agree with the assessment and plan of care. dolores Not available 11/13/2017 12:41:01 12/18/2017 [id number] preventing falls: care instructions [email or web address] Not available [...] medication. [email or web address] Not available 12/18/2017 13:20:44 06/11/2018 [id number] low back pain: exercises [email or web address] Not available 06/11/2018 13:24:20 call or return for worsening or concerns. [email or web address] Not available 06/11/2018 13:22:08 01/20/2019 [id number] preventing falls: care instructions [email or web address] Not available 01/20/2019 10:20:59 call or return for woraening or concerns. [email or web address] Not available 01/20/2019 10:20:56 Reviewed the risks and benefits of terminal clerk opiate use, OUD discussed with the patient. Reviewed the risks and benefits of other non-opioid pain therapies. Reviewed caution with driving, fall risk, treatment for constipation. Patient verbalizes understanding of risk and benefits, and of OUD. 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 WSN: [id number] Dictat ed By: Delonte Barrios MD Dictat ed Date/T erlinda: 10:26 a Review ed By: Delonte Barrios MD Signed By: Delonte Barrios MD Signed Date/T erlinda: 10:26 am Transc ribed By: PASTORA Transc ribed Date/T erlinda: 10:24 am Patien t Class: Outpat ient [facility] (Outpt Imaging) [address] , [place], [address], 06/15/2018 15:07:23 06/15/19 19 06/14/2018 XR, lumba [...] ce of an acute proces s. WSN: [id number] Dictat ed By: Delonte Barrios MD Dictat ed Date/T erlinda: 10:26 a Review ed By: Delonte Barrios MD Signed By: Delonte Barrios MD Signed Date/T erlinda: 10:26 am Transc ribed By: PASTORA Transc ribed Date/T erlinda: 10:24 am Patien t Class: Outpat ient [facility] (Outpt Imaging) [address] [place], [address], 06/15/2018 15:07:23 Result Notes Documentation Provider Name [...] no evidence of an acute process. WSN: [id number] Dictated By: Rocael Barrios MD Dictated Date/Time: 06/14/18 10:26 a Reviewed By: Rocael Barrios MD Signed By: Rocael Barrios MD Signed Date/Time: 06/14/18 10:26 am Transcribed By: PASTORA Transcribed Date/Time: 06/14/18 10:24 am Patient Class: Outpatient NICOLÁS Fay [address], [place], [address], [facility] 06/15/2018 12:48:36 Xr, Lumbar Spine : Lumbar [...] no evidence of an acute process. WSN: [id number] Dictated By: Rocael Barrios MD Dictated Date/Time: 06/14/18 10:26 a Reviewed By: Rocael Barrios MD Signed By: Rocael Barrios MD Signed Date/Time: 06/14/18 10:26 am Transcribed By: PASTORA Transcribed Date/Time: 06/14/18 10:24 am Patient Class: Outpatient Denis [facility] [address], [place], [address], [facility] 06/15/2018 12:48:36 Problems Name Problem SNOMED Code Status Onset Date Resolution Date Notes Provider Name and Address Organization Details Recorded Time Impacted cerumen 08013662 Completed 09/17/2016 Becky rosario [facility] 7 17:00:46 Hyponatr emia 30552576 Completed 09/04/2017 Dilshad Hall MD [address], [place], [address], [facility] 8 06:00:03 Dermatit is Completed 09/17/2016 Becky rosario [facility] 7 17:00:48 Dysuria 30357132 Completed 09/17/2016 Becky rosario [facility] 7 17:01:13 Insomnia 485912055 Active [place] Aziza rosario [facility] 6 11:38:21 Advance directiv e discusse d with patient 074175041 Completed 09/17/2016 Becky rosario [facility] 7 17:01:07 Polyp of colon 75179673 Active [place] Aziza [facility] 6 11:38:21 Active or passive immuniza tion Completed 200908/23/2013 RECORDED 03/01/19 10 9:56AM BY PILLO Masters NP, OFFICE VISIT Michelle Aziza [facility] 6 11:38:22 Active or passive immuniza tion Completed 200909/15/2013 RECORDED 03/01/19 10 9:56AM BY PILLO Masters NP, OFFICE VISIT Michelle Aziza [facility] 6 11:38:22 Active or passive immuniza tion Completed 200909/16/2013 RECORDED 03/01/19 10 9:56AM BY PILLO Masters NP, OFFICE VISIT [place] Aziza [facility] 6 11:38:22 Anemia due to chronic blood loss 833296367 Completed 201108/23/2013 RECORDED 10/31/19 12 2:42PM BY NICKY WOODS ON/ADDEN DUM [place] [facility] 6 11:38:21 Screenin g for malignan t neoplasm of breast Completed 201108/23/2013 RECORDED 10/31/19 12 2:41PM BY NICKY WOODS ON/ADDEN DUM Becky Bigroshni [facility] 7 13:35:13 Chest pain 67426712 Completed 201108/23/2013 RECORDED 10/31/19 12 2:41PM BY NICKY WOODS ON/ADDEN DUM [place] [facility] 6 11:38:22 Divertic ular disease of colon 644593300 Completed 201108/23/2013 STORY: PT WAS SEEN IN OUR OFFICE 11/30/09 FOR RECTAL BLEEDING AND WAS REFERRED TO GI FOR AN EVALUATI ON. THAT EVENING EVERY TIME THE PT ATE SOMETHIN G SHE WOULD BE GOING TO THE BATHROOM TO HAVE A BM THAT WAS FILLED WITH BLOOD. AFTER A FEW TIMES THE PT TOOK HERSELF TO [facility] TO BE EVALUATE D. THE ONLY SX THAT THE PT FELT WAS BLOATING AND CRAMPING EVERYTIM E SHE ATE. PT HAD TO UNDERGO A COLONOSC OPY WITCH SHOWED THAT THE PT HAD BLEEDING COMING FROM THE ASCENDIN G,DESCEN DING, AND TRANSVER SE COLON. PT WAS LATER TRANSFER RED TO [facility] TO BE WATCHED CLOSELY. PT WAS THEN PLACED ON A LIQUID DIET UNTIL THE TIME WHERE SHE COULD TOLERATE SOLID FOOD WITH OUT PASSING A BM THAT WAS BLOODY. MEDICATI ON HAS BEEN RECONSIL ED WITH THE PT AND SHE WILL F/U WITH MGD 12/21/09 .; RECORDED 10/31/19 12 2:41PM BY NICKY WOODS ON/ADDEN DUM Michelle rosario [facility] 6 11:38:21 Hemorrha ge of colon 81768602 Completed 201108/23/2013 STORY: STABLE/ STILL ANEMIC; RECORDED 10/31/19 12 2:41PM BY NICKY WOODS ON/ADDEN DUM Michelle rosario [facility] 6 11:38:22 Divertic ulitis of colon 424583644 Active 2011 Becky rosario [facility] 7 17:00:37 Dysuria 47433496 Completed 201108/23/2013 IMPRESSI ON: 3+ LEUKOCYT ES ON UA TODAY, COMPLETE D BACTRIM 2 DAYS AGO, START CIPRO AND SEND CULTURE; RECORDED 10/31/19 12 2:41PM BY NICKY WOODS ON/ADDEN DUM Becky rosario [facility] 7 17:01:13 Essentia l hyperten julisa 72385375 Completed 201108/23/2013 RECORDED 10/31/19 12 2:41PM BY NICKY WOODS ON/ADDEN DUM Becky rosario [facility] 7 17:01:17 Hypo-osm olality and or hyponatr emia 922844654 Completed 201108/23/2013 RECORDED 10/31/19 12 2:41PM BY VIOLA SCHULTZK I, ANNOTATI ON/ADDEN DUM Michelle Degutis null, [facility] 6 11:38:21 Examinat ion for suspecte d mental disorder Completed 201108/23/2013 RECORDED 10/31/19 12 2:41PM BY NICKY WOODS ON/ADDEN DUM Michelle Degutis null, [facility] 6 11:38:22 Tachycar wesley [id number] Completed 201108/23/2013 RECORDED 10/31/19 12 2:42PM BY NICKY WOODS ON/ADDEN DUM Michelle Degutis null, [facility] 6 11:38:22 Vaginiti s and vulvovag initis Completed 201108/23/2013 IMPRESSI ON: VAGINAL ITCHING AFTER COMPLETI NG ANTIBIOT ICS; RECORDED 10/31/19 12 2:42PM BY NICKY WOODS ON/ADDEN DUM Michelle Degutis null, [facility] 6 11:38:22 Anemia due to chronic blood loss 166640745 Completed 201109/15/2013 RECORDED 10/31/19 12 2:42PM BY NICKY WOODS ON/ADDEN DUM Michelle Degutis null, [facility] 6 11:38:21 Chest pain 69867811 Completed 201109/15/2013 RECORDED 10/31/19 12 2:41PM BY NICKY WOODS ON/ADDEN DUM Michelle Degutis null, [facility] 6 11:38:22 Divertic ular disease of colon 532789897 Completed 201109/15/2013 STORY: PT WAS SEEN IN OUR OFFICE 11/30/09 FOR RECTAL BLEEDING AND WAS REFERRED TO GI FOR AN EVALUATI ON. THAT EVENING EVERY TIME THE PT ATE SOMETHIN G SHE WOULD BE GOING TO THE BATHROOM TO HAVE A BM THAT WAS FILLED WITH BLOOD. AFTER A FEW TIMES THE PT TOOK HERSELF TO [facility] TO BE EVALUATE D. THE ONLY SX THAT THE PT FELT WAS BLOATING AND CRAMPING EVERYTIM E SHE ATE. PT HAD TO UNDERGO A COLONOSC OPY WITCH SHOWED THAT THE PT HAD BLEEDING COMING FROM THE ASCENDIN G,DESCEN DING, AND TRANSVER SE COLON. PT WAS LATER TRANSFER RED TO [facility] TO BE WATCHED CLOSELY. PT WAS THEN PLACED ON A LIQUID DIET UNTIL THE TIME WHERE SHE COULD TOLERATE SOLID FOOD WITH OUT PASSING A BM THAT WAS BLOODY. MEDICATI ON HAS BEEN RECONSIL ED WITH THE PT AND SHE WILL F/U WITH MGD 12/21/09 .; RECORDED 10/31/19 12 2:41PM BY NICKY WOODS ON/ADDEN DUM Michelle Degutedouard rosario [facility] 6 11:38:21 Hemorrha ge of colon 93023528 Completed 201109/15/2013 STORY: STABLE/ STILL ANEMIC; RECORDED 10/31/19 12 2:41PM BY NICKY WOODS ON/ADDEN DUM Michelle Degutedouard rosario [facility] 6 11:38:22 Dysuria 68166626 Completed 201109/15/2013 IMPRESSI ON: 3+ LEUKOCYT ES ON UA TODAY, COMPLETE D BACTRIM 2 DAYS AGO, START CIPRO AND SEND CULTURE; RECORDED 10/31/19 12 2:41PM BY NICKY WOODS ON/ADDEN DUM Becky rosario [facility] 7 17:01:13 Hypo-osm olality and or hyponatr emia 916474478 Completed 201109/15/2013 RECORDED 10/31/19 12 2:41PM BY NICKY WOODS ON/ADDEN DUM Michelle Degutedouard rosario [facility] 6 11:38:21 Examinat ion for suspecte d mental disorder Completed 201109/15/2013 RECORDED 10/31/19 12 2:41PM BY NICKY WOODS ON/ADDEN DUM Michelle Degutedouard rosario [facility] 6 11:38:22 Tachycar wesley [id number] Completed 201109/15/2013 RECORDED 10/31/19 12 2:42PM BY NICKY WOODS ON/ADDEN DUM Michelle Degutis null, [facility] 6 11:38:22 Vaginiti s and vulvovag initis Completed 201109/15/2013 IMPRESSI ON: VAGINAL ITCHING AFTER COMPLETI NG ANTIBIOT ICS; RECORDED 10/31/19 12 2:42PM BY NICKY WOODS ON/ADDEN DUM Michelle Degutis null, [facility] 6 11:38:22 Anemia due to chronic blood loss 871609043 Completed 201109/16/2013 RECORDED 10/31/19 12 2:42PM BY NICKY WOODS ON/ADDEN DUM Michelle Degutis null, [facility] 6 11:38:21 Chest pain 28660587 Completed 201109/16/2013 RECORDED 10/31/19 12 2:41PM BY NICKY WOODS ON/ADDEN DUM Michelle Degutis null, [facility] 6 11:38:22 Divertic ular disease of colon 274149145 Completed 201109/16/2013 STORY: PT WAS SEEN IN OUR OFFICE 11/30/09 FOR RECTAL BLEEDING AND WAS REFERRED TO GI FOR AN EVALUATI ON. THAT EVENING EVERY TIME THE PT ATE SOMETHIN G SHE WOULD BE GOING TO THE BATHROOM TO HAVE A BM THAT WAS FILLED WITH BLOOD. AFTER A FEW TIMES THE PT TOOK HERSELF TO [facility] TO BE EVALUATE D. THE ONLY SX THAT THE PT FELT WAS BLOATING AND CRAMPING EVERYTIM E SHE ATE. PT HAD TO UNDERGO A COLONOSC OPY WITCH SHOWED THAT THE PT HAD BLEEDING COMING FROM THE ASCENDIN G,DESCEN DING, AND TRANSVER SE COLON. PT WAS LATER TRANSFER RED TO [facility] [facility] TO BE WATCHED CLOSELY. PT WAS THEN PLACED ON A LIQUID DIET UNTIL THE TIME WHERE SHE COULD TOLERATE SOLID FOOD WITH OUT PASSING A BM THAT WAS BLOODY. MEDICATI ON HAS BEEN RECONSIL ED WITH THE PT AND SHE WILL F/U WITH MGD 12/21/09 .; RECORDED 10/31/19 12 2:41PM BY NICKY WOODS ON/ADDEN DUM Michelle Ervin null, [facility] 6 11:38:21 Hemorrha ge of colon [id number] Completed 201109/16/2013 STORY: STABLE/ STILL ANEMIC; RECORDED 10/31/19 12 2:41PM BY NICKY WOODS ON/ADDEN DUM Michelle Antonioutedouard null, [facility] 6 11:38:22 Dysuria 78505093 Completed 201109/16/2013 IMPRESSI ON: 3+ LEUKOCYT ES ON UA TODAY, COMPLETE D BACTRIM 2 DAYS AGO, START CIPRO AND SEND CULTURE; RECORDED 10/31/19 12 2:41PM BY NICKY WOODS ON/ADDEN DUM [facility] 7 17:01:13 Hypo-osm olality and or hyponatr emia 113773595 Completed 201109/16/2013 RECORDED 10/31/19 12 2:41PM BY NICKY WOODS ON/ADDEN DUM Michelle Ervin null, [facility] 6 11:38:21 Examinat ion for suspecte d mental disorder Completed 201109/16/2013 RECORDED 10/31/19 12 2:41PM BY NICKY WOODS ON/ADDEN DUM Michelle Antonioutis null, [facility] 6 11:38:22 Tachycar wesley [id number] Completed 201109/16/2013 RECORDED 10/31/19 12 2:42PM BY [...] null, [facility] 6 11:38:22 Influenz a vaccine needed [id number] 06 Completed 201208/23/2013 RECORDED 04/30/19 13 2:37PM BY TEA HANDY MA, NICKY ON/ADDEN DUM Michelle Degutis null, [facility] 6 11:38:22 Follow-u p encounte r Completed 201208/23/2013 RECORDED 04/30/19 13 2:37PM BY TEA HANDY MA, NICKY ON/ADDEN DUM Michelle Degutis null, [facility] 6 11:38:22 Adult health examinat ion Completed 201208/23/2013 RECORDED 04/30/19 13 2:37PM BY TEA HANDY MA, NICKY ON/ADDEN DUM Becky Norton [place] null, [facility] 7 17:01:05 Renewal of prescrip tion Completed 201208/23/2013 RECORDED 04/30/19 13 2:37PM BY TEA HANDY MA, NICKY ON/ADDEN DUM [place] Degutis null, [facility] 6 11:38:22 Retentio n of urine 353169555 Completed 201208/23/2013 RECORDED 04/30/19 13 2:37PM BY TEA HANDY MA, NICKY ON/ADDEN DUM Michelle Degutis null, [facility] 6 11:38:22 Screenin g for malignan t neoplasm of colon Completed 201209/15/2013 RECORDED 04/30/19 13 2:37PM BY TEA HANDY MA, NICKY ON/ADDEN DUM Michelle Degutis null, [facility] 6 11:38:22 Influenz a vaccine needed [id number] 06 Completed 201209/15/2013 RECORDED 04/30/19 13 2:37PM BY TEA HANDY MA, NICKY ON/ADDEN DUM [place] Degutis null, [facility] 6 11:38:22 Follow-u p encounte r Completed 201209/15/2013 RECORDED 04/30/19 13 2:37PM BY TEA HANDY MA, NICKY ON/ADDEN DUM Michelle Degutis null, [facility] 6 11:38:22 Renewal of prescrip tion Completed 201209/15/2013 RECORDED 04/30/19 13 2:37PM BY TEA HANDY MA, NICKY ON/ADDEN [facility] Degutis null, [facility] 6 11:38:22 Retentio n of urine 834302043 Completed 201209/15/2013 RECORDED 04/30/19 13 2:37PM BY TEA HANDY MA, NICKY ON[facility] Degutis null, [facility] 6 11:38:22 Screenin g for malignan t neoplasm of colon Completed 201209/16/2013 RECORDED 04/30/19 13 2:37PM BY TEA HANDY MA, NICKY ON/ADDEN DUM [place] Degutis null, [facility] 6 11:38:22 Influenz a vaccine needed [id number] 06 Completed 201209/16/2013 RECORDED 04/30/19 13 2:37PM BY TEA HANDY MA, NICKY ON/ADDEN DUM Michelle Degutis null, [facility] 6 11:38:22 Follow-u p encounte r Completed 201209/16/2013 RECORDED 04/30/19 13 2:37PM BY TEA HANDY MA, ANNOTATI ON/ADDEN DUM Michelle Degutis abraham, [facility] 6 11:38:22 Renewal of prescrip tion Completed 201209/16/2013 RECORDED 04/30/19 13 2:37PM BY TEA HANDY MA, ANNOTATI ON/ADDEN DUM Michelle Degutis abraham, [facility] 6 11:38:22 Retentio n of urine 751951556 Completed 201209/16/2013 RECORDED 04/30/19 13 2:37PM BY TEA HANDY MA, ANNOTATI ON/ADDEN DUM Michelle Degutis abraham, [facility] 6 11:38:22 Anxiety state 938158021 Active 2012 Becky rosario, [facility] 7 17:00:55 Tobacco user [id number] Completed 201208/23/2013 RECORDED 01/28/20 13 1:17PM BY ALEXANDRE AGUILAR MA, ANNOTATI ON/ADDEN DUM Becky rosario, [facility] 7 17:00:35 History of clinical finding in subject 817461911 Completed 201209/17/2016 RECORDED 01/28/20 13 1:17PM BY ALEXANDRE AGUILAR MA, ANNOTATI ON/ADDEN DUM Becky rosario, [facility] 7 17:01:11 Asthma 223171257 Active 2012 Becky rosario, [facility] 7 17:00:52 Gastroes ophageal reflux disease 371200821 Active 2012 Becky rosario, [facility] 7 17:00:59 Essentia l hyperten julisa 87966972 Active 2012 Becky rosario [facility] 7 17:01:17 External hemorrho ids 69989918 Active 2012 Becky Bigby [place] null, [facility] 7 17:01:03 Tobacco user [id number] Active 2012 Becky rosario, [facility] 7 17:00:35 Adult health examinat ion Completed 201209/17/2016 STORY: COLONOSC OPY DUE SS/TUBUL AR ADENOMA; RECORDED 01/28/20 13 1:58PM BY RICARDO COLE MD, OFFICE VISIT Becky rosario, [facility] 7 17:01:05 Hearing loss 73830493 Active 2012 Becky rosario, [facility] 7 17:00:40 Impacted cerumen 75687034 Completed 201208/23/2013 RECORDED 01/28/20 13 1:17PM BY ALEXANDRE AGUILAR MA, ANNOTATI ON/ADDEN DUM Becky rosario [facility] 7 17:00:46 Irritabl e bowel syndrome 42150894 Active 2012 Becky rosario, [facility] 7 17:00:31 Pre-surg girish evaluati on Completed 201208/23/2013 IMPRESSI ON: PT IS MEDICALL Y ABLE TO UNDERGO SURGERY, NO ACTIVE ISSUES, IS ABLE TO LAY FLAT AND STILL, EKG NL AND WILL GET LABS; RECORDED 01/28/20 13 1:17PM BY ALEXANDRE AGUILAR MA, ANNOTATI ON/ADDEN DUM Michelle rosario [facility] 6 11:38:22 Tobacco user [id number] Completed 201209/15/2013 RECORDED 01/28/20 13 1:17PM BY ALEXANDRE AGUILAR MA, ANNOTATI ON/ADDEN DUM Becky rosario, [facility] 7 17:00:35 Impacted cerumen 66473169 Completed 201209/15/2013 RECORDED 01/28/20 13 1:17PM BY ALEXANDRE AGUILAR MA, ANNOTATI ON/ADDEN DUM Becky rosario, [facility] 7 17:00:46 Pre-surg girish evaluati on Completed 201209/15/2013 IMPRESSI ON: PT IS MEDICALL Y ABLE TO UNDERGO SURGERY, NO ACTIVE ISSUES, IS ABLE TO LAY FLAT AND STILL, EKG NL AND WILL GET LABS; RECORDED 01/28/20 13 1:17PM BY ALEXANDRE AGUILAR MA, ANNOTATI ON/ADDEN DUM Michelle Aziza rosario, [facility] 6 11:38:22 Tobacco user [id number] Completed 201209/16/2013 RECORDED 01/28/20 13 1:17PM BY ALEXANDRE AGUILAR MA, ANNOTATI ON/ADDEN DUM Becky rosario, [facility] 7 17:00:35 Impacted cerumen 69623160 Completed 201209/16/2013 RECORDED 01/28/20 13 1:17PM BY ALEXANDRE AGUILAR MA, ANNOTATI ON/ADDEN DUM Becky rosario, [facility] 7 17:00:46 Pre-surg girish evaluati on Completed 201209/16/2013 IMPRESSI ON: PT IS MEDICALL Y ABLE TO UNDERGO SURGERY, NO ACTIVE ISSUES, IS ABLE TO LAY FLAT AND STILL, EKG NL AND WILL GET LABS; RECORDED 01/28/20 13 1:17PM BY ALEXANDRE AGUILAR MA, ANNOTATI ON/[facility] DUM Michelle Degutedouard rosario [facility] 6 11:38:22 History of Malignan t melanoma 507548183 Active 2013 Becky rosario [facility] 7 17:00:45 Malignan t melanoma of skin 58839472 Active 2013 Becky rosario [facility] 7 17:01:28 Urinary tract infectio us disease 88518006 Active 2013 Becky Bigby [place] null, [facility] 7 17:01:20 Screenin g for malignan t neoplasm of breast Completed 201410/31/2016 Dr. Susy Ortega, negative Beckybridger Norton ELLIOTT rosario [facility] 7 13:35:13 Chronic low back pain 107368825 Active 2018 Rebeca Jeffery abraham [facility] 9 14:22:51 Problem [...] 17 Mini-Cog Test completed Becky Norton MA [facility] 12/01/2016 13:23:31 11/29/19 17 Mammogram both breasts completed Kimmy Yañez [facility] 12/09/2016 14:44:18 10/17/19 17 Date of Last Colonoscopy completed Paola Kendall [facility] 12/09/2016 16:54:35 10/17/19 17 Colonoscopy completed Becky Norton MA [facility] 10/24/2016 11:43:36 03/23/19 16 Fall Risk Assessment completed Becky Norton MA [facility] 03/23/2015 13:55:01 03/23/19 16 Mini-Cog Test completed Becky Norton MA [facility] 03/23/2015 14:02:26 03/23/19 16 Advanced Care Planning completed Becky Norton MA [facility] 03/23/2015 13:41:44 08/19/19 15 Date of Last [facility] Smear [facility] 11:40:33 02/23/19 11 Most Recent Bone Density completed Becky Norton MA [facility] 03/23/2015 14:07:39 02/09/19 08 Appendectomy completed Tea Handy [facility] 03/02/2014 10:46:37 Imaging Results None recorded. Procedure Notes None recorded. Medical Equipment None Reported. Allergies Allergen ID Allergen Name Allergen Category Reaction Reaction Severity Criticality Documentation Date Start Date Code Code System Note Provider Name and Address Organization Details Recorded Time 2935 latex environme nt,medica tion rash Not available Not available 08/23/20132012 87186 91 RxNorm Beckybridger [facility] 7 17:00:18 Medications Name Sig Start [...] 03/29/19 10 3:00PM BY PILLO Masters NP[facility]; Not Available Not [...] 12/22/19 10 2:51PM BY RICARDO COLE MD, [facility] DUM; Not Available Not [...] Updated DateTime 8 154.94 cm 31.4 kg/m2 65720.4 3 g 98.7 [degF] 96 % 96 % 89 /min 118/76 mm[Hg] Becky Norton MA [facility] 8 11:28:28 Date Recorded Body height Body mass index (BMI) Body weight Heart rate Oxygen saturation Oxygen saturation in Arterial blood by Pulse oximetry Body temperature Systolic And Diastolic Provider Name and Address Organization Details Last Updated DateTime 9 154.94 cm 30.2 kg/m2 28340.7 8 g 92 /min 96 % 96 % 98.4 [degF] 124/78 mm[Hg] [facility] 9 12:59:19 Date Recorded Body height Body mass index (BMI) Body weight Heart rate Oxygen saturation Oxygen saturation in Arterial blood by Pulse oximetry Body temperature Systolic And Diastolic Provider Name and Address Organization Details Last Updated DateTime 8 154.94 cm 30.8 kg/m2 00853.5 6 g 94 /min 97 % 97 % 97.5 [degF] 136/74 mm[Hg] Viola Medina [facility] 8 10:41:30 Date Recorded Body height Body mass index (BMI) Body weight Body temperature Heart rate Oxygen saturation Oxygen saturation in Arterial blood by Pulse oximetry Systolic And Diastolic Provider Name and Address Organization Details Last Updated DateTime 8 154.94 cm 30.5 kg/m2 53237.4 7 g 97.2 [degF] 86 /min 96 % 96 % 123/72 mm[Hg] Naheed Jose Alfredo [facility] 8 12:57:56 Date Recorded Body height Body mass index (BMI) Body weight Oxygen saturation Oxygen saturation in Arterial blood by Pulse oximetry Heart rate Body temperature Systolic And Diastolic Provider Name and Address Organization Details Last Updated DateTime 9 154.94 cm 30.7 kg/m2 82012.0 6 g 96 % 96 % 81 /min 98.1 [degF] 119/67 mm[Hg] Leila Julien MA [facility] 9 09:56:35 Social History Question Answer Notes LastModified by Organizat ion Details LastModified Time Tobacco Smoking Status Former Smoker ELLIOTT Plascencia [facility] [place] 09/08/2013 11:26:06 Do You Have An [...] used smokeless tobacco? Never used smokeless tobacco Information not available 01/20/2019 Are you currently employed? Yes Information not available 03/02/2014 Are you able to care for yourself independently ? 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 Never used electronic cigarettes [email or web address] Information not available 01/20/2019 What is your [...] conjugate PCV 13 5 completed Not Available Replaced by [facility] 02/26/2019 02:21:36 Influenza, split virus, quadrivalent, PF 5 completed Bekcy rosario [facility] 03/23/2015 14:06:48 Influenza, high-dose, trivalent, PF 7 completed Not Available Replaced by [facility] 02/26/2019 02:22:21 Novel [id number]-[id number], all formulations 0 completed Not Available Replaced by [facility] 08/23/2013 13:38:52 pneumococcal polysaccharide PPV23 0 completed Not Available Replaced by [facility] 08/23/2013 13:38:52 Influenza, split virus, trivalent, preservative 0 completed Not Available Replaced by [facility] 08/23/2013 13:38:52 Influenza, split virus, trivalent, preservative 1 completed Not Available Replaced by [facility] 08/23/2013 13:38:52 Influenza, split virus, trivalent, preservative 2 completed Not Available Replaced by [facility] 08/23/2013 13:38:52 Influenza, split virus, trivalent, preservative 3 completed Not Available Replaced by [facility] 08/23/2013 13:38:52 Influenza, high-dose, trivalent, PF 8 completed Not Available Replaced by [facility] 02/26/2019 02:22:14 Influenza, high-dose, trivalent, PF 9 completed Not Available Replaced by [facility] 02/26/2019 02:22:09 Past Encounters Encounter ID Performer Location Encounter Start Date Encounter Closed Date Diagnosis/Indication Diagnosis SNOMED-CT Code Diagnosis ICD10 Code Diagnosis Note [id number] NICOLÁS Cheung Main Office [address] [place] [address] 09/08/2013 11:14:56 09/08/2013 11:58:13 Essential hypertension 93270768 well controlled Asthma 217336882 followe d by pulm, well controlled on symbicort Anxiety state 126623945 Impacted cerumen 33747822 successful ly removed with ear lavage [id number] autoEComm erce [address] [facility] [place] [address] 03/01/2009 00:00:00 [id number] [address] [place] [address] 03/29/2009 00:00:00 [id number] [address] [place] [address] 09/10/2009 00:00:00 [id number] [address] [address] [place] [address] 11/13/2009 00:00:00 [id number] autoEComm erce [address] [facility] [address] [place] [address] 11/30/2009 00:00:00 [id number] autoEComm erce [address] [facility] [place] [address] 12/21/2009 00:00:00 [id number] autoEComm erce [address] [facility] [place] [address] 02/11/2010 00:00:00 [id number] autoEComm erce [address] [facility] [place] [address] 05/17/2010 00:00:00 [id number] autoEComm erce [address] [facility] [place] [address] 08/23/2010 00:00:00 [id number] autoEComm erce [address] [facility] [place] [address] 09/04/2010 00:00:00 [id number] autoEComm erce [address] [facility] [place] [address] 11/29/2010 00:00:00 [id number] autoEComm erce [address] [facility] [address] [place] [address] 01/10/2011 00:00:00 [id number] autoEComm erce [address] [facility] [place] [address] 05/02/2011 00:00:00 [id number] autoEComm erce [address] [facility] [place] [address] 10/31/2011 00:00:00 [id number] autoEComm mon[place] [address] [place] [address],[address] [place] [address] 04/29/2012 00:00:00 [id number] autoEComm erce [address] [facility] [place] [address] 07/15/2012 00:00:00 [id number] autoEComm [place] [address] [place] [address],[address] [place] [address] 01/27/2013 00:00:00 [id number] Ramon Callahan MD Main Office [address] [address] [place] [address] 09/26/2013 13:41:44 09/26/2013 14:55:33 Dermatitis 217674413 candidal dermatitis [id number] Ricardo medellin MD Main Office [address] [address] [place] [address] 03/02/2014 12:39:53 03/02/2014 13:42:38 Essential hypertension 13339373 Hyponatremia 21453736 pt to see Dr Pride regularly/ pt aware that she needs to stop using clorazepat e / see psych referral Anxiety state 767159608 Dysuria 77593839 [id number] Ricardo medellin MD Main Office [address] [address] [place] [address] 04/21/2014 14:46:19 04/21/2014 15:48:33 Essential hypertension 95495830 both meds helpful/ Diltiazem and lisinopril Gastroesop hageal reflux disease 350310713 pt on PPI Anxiety state 279626313 Asthma 899613165 [id number] Ricardo medellin MD Main Office [address] [address] [place] [address] 03/23/2015 13:27:48 03/23/2015 14:47:01 Adult health examination 232708261 Z00.00 [facility] ed risk for falls 579455233 Z91.81 Advance di rective discussed with patient 921931188 Z71.89 pt will have her brother as health care proxy Essential hypertension 42332497 I10 both meds helpful/ Diltiazem and lisinopril Polyp of colon 73755383 K63.5 pt due for colonoscop y 2016 /tubular adenoma/We iss Asthma 913052603 J45.90 9 Anxiety state 902311880 F41.1 [id number] Ricardo medellin MD Main Office [address] [address] [place] [address] 10/05/2015 12:46:12 10/05/2015 13:40:50 Essential hypertension 57685590 I10 both meds helpful/ Diltiazem and lisinopril Asthma 816137615 J45.90 9 urged pt to get flu shot soon. Anxiety state 820425445 F41.1 [id number] Ricardo medellin MD Main Office [address] [address] [place] [address] 06/19/2016 12:55:50 06/19/2016 14:13:50 Fatigue 86279724 R53.83 Abnormal weight loss 267 832392 R63.4 Diarrhea 64032843 R19.7 Nausea 600200269 R11.0 d/w pt to elevate HOB/ cont PPI Impaired f asting glycemia 056101999 R73.01 [id number] Ricardo medellin MD Main Office [address] [address] [place] [address] 10/23/2016 14:30:06 10/23/2016 15:27:24 [id number] Ricardo medellin MD Main Office [address] [address] [place] [address] 10/31/2016 13:21:48 10/31/2016 14:41:18 Lumbosacral radiculitis 67054619 M54.17 Influenza vaccine needed 7082143780 106 Z23 [id number] Ricardo medellin MD Main Office [address] [address] [place] [address] 12/01/2016 13:04:53 12/01/2016 14:09:38 Adult health examination 754476189 Z00.00 Essential hypertension 67845747 I10 both meds helpful/ Diltiazem and lisinopril Anxiety state 990006077 F41.1 [id number] Ricardo medellin MD Main Office [address] [address] [place] [address] 05/15/2017 11:16:16 05/15/2017 12:12:51 Anxiety state 065079623 F41.1 Essential hypertension 02859023 I10 both meds helpful/ Diltiazem and lisinopril Incomplete emptying of urinary bladder 497062178 R39.14 [id number] Denis Marcos [facility] Main Office [address] [address] [place] [address] 11/13/2017 10:36:20 11/13/2017 11:18:17 Anxiety state 269259685 F41.1 has been on med for 20+ years, she is taking 3.75mg daily, will try to cut the dose in half if possible. f/u in 1 month for wellness visit. Influenza vaccine needed 8946410050 106 Z23 Gastroesop hageal reflux disease 619928228 K21.9 Essential hypertension 52727312 I10 well controlled , continue meds as directed. [id number] Denis Marcos [facility] Main Office [address] [address] [place] [address] 12/18/2017 12:40:39 12/18/2017 13:46:58 Adult health examination 647522249 Z00.00 UTD, she will call SURFACING TECHNICIAN for appt Varicella vaccination 68 534211 Z23 Asthma 612003294 J45.90 9 Essential hypertension 72658735 I10 well controlled , continue meds as directed. Family his tory of Hypercholesterolemia 964563033 Z83.49 Anxiety state 346767530 Edi.Katerine has been on med for 20+ years, she is taking 3.75mg daily, will try to cut the dose in half if possible. f/u in 1 month for wellness visit. [id number] Solomon Hemphill MD Main Office [address] [address] [place] [address] 06/11/2018 12:42:51 06/11/2018 13:40:40 Low back pain 115344324 M54.5 Patient with chronic low back pain, in PT, seeing chiropract or, but wondering if she should be seeing someone else. Will check XR and refer back to [facility], she has seen them for this in the past. continue sx treatment, ibuprofen as needed. Cramp in lower limb 4499 02309 R25.2 Essential hypertension 52034162 I10 well controlled , continue meds as directed. Fatigue 72640871 R53.83 [id number] Solomon Hemphill MD Main Office [address], [place] [address] 01/20/2019 09:41:15 01/20/2019 10:33:29 Adult health examination 096377551 Z00.00 UTD, she has mammo scheduled, needs to call SURFACING TECHNICIAN. Influenza vaccine needed 7785952460 106 Z23 Impaired f asting glycemia 417510811 R73.01 in June, sugar 125 and she believes she was fasting Hyperlipidemia 44293565 E78.5 Health Concerns Section Related Observation LastModified by Organization Detai ls LastModified Time None Recorded Concern Status LastModified by Organization Details LastModified Time None Recorded Advance Directives Directive Y: Payers Insurance Date Sequence Insurance Name Policy Number Policy Menendez Covered Member ID Menendez Member ID Guarantor Name 09/10/2016 1 [employer] [place] - MEDICARE ADVANTAGE PLAN (MEDICARE REPLACEMENT HMO) [id number] Noris Hou [id number] Noris Hou 07/19/2019 2 [place] [id number] Noris Hou [id number] Noris Hou 07/19/2019 1 [place] B[place] [employer] Noris Hou [id number] Noris Hou OBGyn Episode No OBEpisode recorded.
--- OUTSIDE RECORDS SUMMARY | 2024-09-06 14:23 | XMS_ITS | Patient Health Record ---
Author Organization [facility] Address [address] [place] [address] Care Team Providers Care Portable Trackman Name Role Phone Syd Dhillon MD Primary Care Provider Un available Harsha Camara Unavailable [phone] Allergies Allergen (clinical drug ingredient) Drug/Non Drug [...] Problem Status W/U Status Risk Notes Problem 506685895 Encounter for screening for malignant neoplasm of colon (Z12.11) Active confirmed Problem 362138200 History of adenomatous polyp of colon (Z86.010) Active confirmed Problem 159329333 Gastroesophageal reflux disease, esophagitis presence not specified (K21.9) Active confirmed Plan Of Treatment Future Test Test Name Order Date COLONOSCOPY 11/04/2011 COLONOSCOPY 07/16/2016 Insurance Providers Payer Name Payer Address Payer Phone Subscriber Number Group Number Insured Name Patient Relationship to Insured Coverage Start Date Coverage End Date [place] [address] [place] [id number] KATYELEVR Weeks Self - patient is the insured MEDEX ATTN CLAIMS [address] [place] [address] [id number] ELVER GARBER Self - patient is the insured Medical (General) History Medical History History ICD Code Colonoscopies in 2006 and in 2011--- Tubular adenomas removed in 2006 and in 11/2011; Cecal AVM's; diffuse diverticulosis; internal hemorrhoids Melanoma on RUE-surgery as below Hiatal hernia-EGD in 2006 Hypertension Asthma Denies [place],DM,CVA,renal disease Urinary retention-planning to see a urol ogist Diverticular bleed in 2009--at [facility] and [facility] Depression Surgical History Surgery Date(Month/Year) Ovarian cyst Skin cancer surgery-basal ce ll x 4, and melanoma on RUE Rx'd with local excisions by Dr. Dietz
== END 2024-09-06 14:19 | disposition home or self-care (01) ==
LOC: HO.HMCFM 13:33
PROVIDERS: PCP Family Medicine; Visit Provider Family Medicine
DX: Z01.818 Encounter for other preprocedural examination (principal); Z79.01 Long term (current) use of anticoagulants

== ENCOUNTER → 2024-09-06 13:33 | Outpatient (BNVA) | payer MEDICARE, MEDICAID, SELFPAY | PROVIDERS: PCP Family Medicine; Visit Provider Family Medicine | DX: Z01.818 Encounter for other preprocedural examination (principal); Z79.01 Long term (current) use of anticoagulants | CPT/HCPCS: 99212 ==

== ENCOUNTER 2024-09-07 08:51 | Outpatient (REF) | payer MEDICARE, MEDICAID, SELFPAY ==
--- OUTSIDE RECORDS SUMMARY | 2024-09-06 09:00 | XMS_ITS | Encounter Summary ---
Author Organization [facility] Address [address] [place] [address] Care Team Providers Care Scouring Machine Tender Name Role Phone Unavailable Primary Care Provider Unavailabl e Encounter Details Date Type Department Care Team (Late st Contact Info) Description 09/06/2024 9:00 AM EDT Office Visit [facility] [address] [place] [address] Sugar Grinder, Jacy [address] [place] [address] Social History Tobacco Use Types Packs/Day Years Used Date Smoking Tobacco: Never Assessed Comments Unknown Sex and Gender Information Value Date Recorded Sex Assigned at Not on file Legal Sex Female 8:25 AM PDT Gender Identity Not on file Sexual Orientation Not on file documented as of this encounter Progress Notes * Bu Sugar Grinder - 09/06/2024 4:03 PM EDT Exam - Adult Subjective Noris Hou, 84 year old female, presents with her daughter for NPx exam. Building Serviceman: No Patient came here for an exam prior to her radiation therapy. BW and PA were taken along with a pano. Objective RMHx: Yes Vitals: There were no vitals filed for this visit. Dx: - Caries underneath the crowns of teeth #30 and 31 - Distal caries on #22 - Distal caries on #18 - Fractured crown of tooth #21 Dx Details (Clinical Decision Making): Extraction of teeth #21, 30 and 31. SDF application on #18 and 22. Plan Informed Consent/PARQ (Procedure, Alternatives, Risks, Questions): Discussed exam findings and treatment needs, questions answered. Patient confirms informed consent using PARQ, verbalizes understanding of exam findings and treatment plan. Dental procedures in this visit There are no dental procedures in this visit. Referrals: No orders of the following type(s) were placed in this encounter: Referral. Rx: No orders of the defined types were placed in this encounter. Behavior: Excellent DA: N/A NV: Extraction documented in this encounter Miscellaneous Notes * Patient Instructions - Bu Sugar Grinder - 09/06/2024 4:22 PM EDT If you are not able to keep your appointment please call 24-48 hours before your appointment to cancel or reschedule. documented in this encounter Plan of Treatment Upcoming Encounters Date Type Department Care Team (Late st Contact Info) Description 09/09/2024 9:00 AM EDT Office Visit [facility] [place] [id number] Josh Dougherty, DDS [address] [place] [address] Scheduled Orders Name Type Priority Associated Diagnoses Order Schedule 31 31 EXTRACTION ERUPTED TOOTH OR EXPOSED ROOT Dental Procedures Routine 1 Occurrences starting 09/06/2024 30 30 EXTRACTION ERUPTED TOOTH OR EXPOSED ROOT Dental Procedures Routine 1 Occurrences starting 09/06/2024 21 21 EXTRACTION ERUPTED TOOTH OR EXPOSED ROOT Dental Procedures Routine 1 Occurrences starting 09/06/2024 22 D 22 D APPLICATION CARIES ARREST MEDICAMENT-PER TOOTH Dental Procedures Routine 1 Occurre nces starting 09/06/2024 18 D 18 D APPLICATION CARIES ARREST MEDICAMENT-PER TOOTH Dental Procedures Routine 1 Occurre nces starting 09/06/2024 TOPICAL APPLICATION OF FLUORIDE VARNISH Dental Procedures Routine 1 Occurren arin starting 09/06/2024 ORAL HYGIENE INSTRUCTIONS Dental Procedures Routine 1 Occurrences starting 09/06/2024 NUTRITIONAL COUNSELING CONTROL OF DENTAL DISEASE Dental Procedures Routine 1 Occurrences starting 09/06/2024 CARIES RISK ASSESSMENT & DOC FINDING LOW RISK Dental Procedures Routine 1 Occurrences starting 09/06/2024 CARIES RISK ASSESSMENT & DOC FINDING MOD RISK Dental Procedures Routine 1 Occurrences starting 09/06/2024 CARIES RISK ASSESSMENT & DOC FINDING HIGH RISK Dental Procedures Routine 1 Occurrence s starting 09/06/2024 INTRAORAL - COMP SERIES OF RADIOGRAPHIC IMAGES Dental Procedures Routine 1 Occurren arin starting 09/06/2024 documented as of this encounter Procedures Procedure Name Priority Date/Time Associated Diagnosis Comments PANORAMIC RADIOGRAPHIC IMAGE Routine 09/06/2024 9:00 AM EDT Caries Fracture of crown, enamel, and dentin of tooth with pulp exposure INTRAORAL - COMP SERIES OF RADIOGRAPHIC IMAGES Routine 09/06/2024 9:00 AM EDT Caries Fracture of crown, enamel, and dentin of tooth with pulp exposure COMP ORAL EVALUATION - NEW/ESTABLISHED PATIENT Routine 09/06/2024 9:00 AM EDT Caries 21 ROOT CANAL - WISDOM (NO BILLABLE) Routine 09/06/2024 12:00 AM EDT 28 ROOT CANAL - WISDOM (NO BILLABLE) Routine 09/06/2024 12:00 AM EDT 31 CROWN - PORCELAIN FUSED PREDOMINANTLY BASE METAL Routine 09/06/2024 12:00 AM EDT 30 CROWN - PORCELAIN FUSED PREDOMINANTLY BASE METAL Routine 09/06/2024 12:00 AM EDT 31 CROWN - PORCELAIN FUSED PREDOMINANTLY BASE METAL Routine 09/06/2024 12:00 AM EDT 18 CROWN - PORCELAIN/CERAMIC Routine 09/06/2024 12:00 AM EDT documented in this encounter Visit Diagnoses Diagnosis Caries- Primary Unspecified dental caries Fracture of crown, enamel, and dentin of tooth with pulp exposure documented in this encounter
--- OUTSIDE RECORDS SUMMARY | 2024-09-07 09:11 | XMS_ITS | Patient Health Record ---
Author Organization [facility] Address [address] [place] [address] Care Team Providers Care Spiritual Minister Name Role Phone Syd Dhillon MD Primary Care Provider Un available Harsha Camara Unavailable [phone] Allergies Allergen (clinical drug ingredient) Drug/Non Drug [...] Problem Status W/U Status Risk Notes Problem 275627689 Encounter for screening for malignant neoplasm of colon (Z12.11) Active confirmed Problem 889985458 History of adenomatous polyp of colon (Z86.010) Active confirmed Problem 159414014 Gastroesophageal reflux disease, esophagitis presence not specified (K21.9) Active confirmed Plan Of Treatment Future Test Test Name Order Date COLONOSCOPY 11/04/2011 COLONOSCOPY 07/16/2016 Insurance Providers Payer Name Payer Address Payer Phone Subscriber Number Group Number Insured Name Patient Relationship to Insured Coverage Start Date Coverage End Date [place] [address] [place] [id number] KATYELVER Weeks Self - patient is the insured MEDEX ATTN CLAIMS [address] [place] [address] [id number] ELVER GARBER Self - patient is the insured Medical (General) History Medical History History ICD Code Colonoscopies in 2006 and in 2011--- Tubular adenomas removed in 2006 and in 11/2011; Cecal AVM's; diffuse diverticulosis; internal hemorrhoids Melanoma on RUE-surgery as below Hiatal hernia-EGD in 2006 Hypertension Asthma Denies [place],DM,CVA,renal disease Urinary retention-planning to see a urol ogist Diverticular bleed in 2009--at [facility] and [facility] Depression Surgical History Surgery Date(Month/Year) Ovarian cyst Skin cancer surgery-basal ce ll x 4, and melanoma on RUE Rx'd with local excisions by Dr. Dietz
--- OUTSIDE RECORDS SUMMARY | 2024-09-07 09:11 | XMS_ITS ---
Author Organization [facility] Address [address] [place] [address] Phone Care Team Providers Care Gaming Department Head Name Role Phone Ric Flor MD Primary Care Provider Syd Maria MD Unavailable [phone] Active Problems Problem Noted Date Diagnosed Date [...] TO [facility] TO BE EVALUATED. THE ONLY SX THAT THE PT FELT WAS BLOATING AND CRAMPING EVERYTIME SHE ATE. PT HAD TO UNDERGO A COLONOSCOPY WITCH SHOWED THAT THE PT HAD BLEEDING COMING FROM THE ASCENDING,DESCENDING, AND TRANSVERSE COLON. [place] [facility] [...]
[2024-09-07 11:19] LABS: MANUAL DIFF FLAG NO
[2024-09-07 11:20] LABS: Appearance Urine Hazy; Glucose Urine UA Negative (Negative); PH 6.0 (5.0-9.0); Specific Gravity - Urine 1.020 (1.005-1.025); UMIC TRIGGER UA YES
[2024-09-07 11:40] LABS: Hematocrit 35.9 % (37.0-47.0); Hemoglobin 11.7 g/dl (12.0-16.0); Imm Gran Abs Auto 0.01 X10*3/uL (0.00-0.03); Imm Gran Pct Auto 0.2 % (0.0-0.4); Lymphocytes Absolute Auto 1.2 X10*3/uL (1.2-4.9); Mean Corpuscular HGB Conc 32.6 g/dl (31.0-35.0); Mean Corpuscular Hemoglobin 27.3 pg (27.0-33.0); Mean Corpuscular Volume 83.7 fL (80.0-98.0); NRBC Abs Auto 0.000 X10*3/uL (0.0-0.012); NRBC Pct Auto 0.0 /100WBC (0.0-0.2); Platelet Count 296 X10*3/uL (160-400); Red Blood Count 4.29 X10*6/uL (4.20-5.50); White Blood Count 5.9 X10*3/uL (4.8-10.8)
[2024-09-07 11:41] LABS: INTERNATIONAL NORM RATIO 4.0 (0.9-1.1); Prothrombin Time 45.8 SEC (10.9-12.4)
[2024-09-07 12:24] LABS: Alanine Aminotransferase 22 U/L (0-31); Albumin Level 3.3 g/dL (3.5-5.0); Alkaline Phosphatase 120 U/L (39-117); Anion Gap 11 (12-20); Aspartate Amino Transferase 51 U/L (5-31); Blood Urea Nitrogen 8 mg/dL (9-16); Calcium 8.4 mg/dL (8.4-10.2); Carbon Dioxide 27 mmol/L (22-29); Chloride 101 mmol/L (96-108); Estimated Glomerular Filt Rate > 60; Iron 38 mcg/dL (30-160); Percent Iron Saturation 14 % (15-50); Potassium 3.9 mmol/L (3.3-5.1); Sodium 135 mmol/L (135-145); Total Iron Binding Capacity 268 mcg/dL (228-428); Total Protein 6.3 g/dL (6.5-8.0); Unsaturated Iron Binding 230 ug/dL
[2024-09-07 12:31] LABS: Ferritin 20 ng/mL (10-250)
[2024-09-07 12:47] LABS: Folate 2.8 ng/mL (> or = 4.0); Vitamin B12 265 pg/mL (200-900)
== END 2024-09-07 08:52 | disposition home or self-care (01) ==
LOC: HO.WFDLDS 08:51
PROVIDERS: Physician Assistant; Physician Assistant Medical; Referring Provider Internal Medicine Hypertension Specialist; Visit Provider Family Medicine
DX: Z01.818 Encounter for other preprocedural examination (principal); E87.1 Hypo-osmolality and hyponatremia; M79.89 Other specified soft tissue disorders; D64.9 Anemia, unspecified; E66.9 Obesity, unspecified; Z79.01 Long term (current) use of anticoagulants
CPT/HCPCS: 36415; 80053; 81001; 82607; 82728; 82746; 83540; 84443; 85025; 85610

== ENCOUNTER 2024-09-08 09:20 | Outpatient (REF) | payer MEDICARE, MEDICAID, SELFPAY ==
--- OUTSIDE RECORDS SUMMARY | 2024-09-06 10:20 | XMS_ITS | Encounter Summary ---
Author Organization [facility] Address [address] [place] [address] Care Team Providers Care Child Guidance Counselor Name Role Phone Unavailable Primary Care Provider Unavailabl e Reason for Visit * Reason Comments Dental Hygiene/ Preventive Prophy Encounter Details Date Type Department Care Team (Late st Contact Info) Description 09/06/2024 10:20 AM EDT Office Visit [facility] [address] [place] [phone] VetoVicki reed [address] [place] [address] Social History Tobacco Use Types Packs/Day Years [...] year old female, presents alone for prophy. Brazer Controlled Atmospheric Furnace: No Chief Complaint Patient presents with Dental [...] Billing provider: Vicki Hernandez completed with ultrasonic check scaler OHI & Nutrition counseling provided, discussed: Gingivitis [...] Description 09/09/2024 9:00 AM EDT Office Visit [facility] [place] [address] Josh Dougherty DDS [address] [place] [address] documented as of this encounter Procedures Procedure [...]
--- OUTSIDE RECORDS SUMMARY | 2024-09-08 09:36 | XMS_ITS | Patient Health Record ---
Author Organization [facility] Address [address] [place] [address] Care Team Providers Care Sap Manager Name Role Phone Syd Dhillon MD Primary Care Provider Un available Harsha Camara Unavailable [phone] Allergies Allergen (clinical drug ingredient) Drug/Non Drug [...] Problem Status W/U Status Risk Notes Problem 717697414 Encounter for screening for malignant neoplasm of colon (Z12.11) Active confirmed Problem 662982660 History of adenomatous polyp of colon (Z86.010) Active confirmed Problem 069581181 Gastroesophageal reflux disease, esophagitis presence not specified (K21.9) Active confirmed Plan Of Treatment Future Test Test Name Order Date COLONOSCOPY 11/04/2011 COLONOSCOPY 07/16/2016 Insurance Providers Payer Name Payer Address Payer Phone Subscriber Number Group Number Insured Name Patient Relationship to Insured Coverage Start Date Coverage End Date [place] [address] [place] [id number] KATYELVER Weeks Self - patient is the insured MEDEX ATTN CLAIMS [address] [place] [address] [phone] [id number] ELVER GARBER Self - patient is the insured Medical (General) History Medical History History ICD Code Colonoscopies in 2006 and in 2011--- Tubular adenomas removed in 2006 and in 11/2011; Cecal AVM's; diffuse diverticulosis; internal hemorrhoids Melanoma on RUE-surgery as below Hiatal hernia-EGD in 2006 Hypertension Asthma Denies [place],DM,CVA,renal disease Urinary retention-planning to see a urol ogist Diverticular bleed in 2009--at [facility] and [facility] Depression Surgical History Surgery Date(Month/Year) Ovarian cyst Skin cancer surgery-basal ce ll x 4, and melanoma on RUE Rx'd with local excisions by Dr. Dietz
--- OUTSIDE RECORDS SUMMARY | 2024-09-08 09:36 | XMS_ITS ---
Author Organization [facility] Address [address] [place] [address] Phone Care Team Providers Care Tug Captain Name Role Phone Ric Flor MD Primary Care Provider Syd Maria MD Unavailable [phone] Active Problems Problem Noted Date Diagnosed Date [...] TOOK HERSELF TO [facility] TO BE EVALUATED. THE ONLY SX THAT THE PT FELT WAS BLOATING AND CRAMPING EVERYTIME SHE ATE. PT HAD TO UNDERGO A COLONOSCOPY WITCH SHOWED THAT THE PT HAD BLEEDING COMING FROM THE ASCENDING,DESCENDING, AND TRANSVERSE COLON. PT WAS LATER TRANSFERR[place] [facility] [place]SE[place]. PT WAS THEN [...]
[2024-09-08 11:35] LABS: Anion Gap 13 (12-20); Blood Urea Nitrogen 6 mg/dL (9-16); Calcium 8.2 mg/dL (8.4-10.2); Carbon Dioxide 25 mmol/L (22-29); Chloride 102 mmol/L (96-108); Estimated Glomerular Filt Rate > 60; Potassium 4.0 mmol/L (3.3-5.1); Sodium 136 mmol/L (135-145)
[2024-09-08 11:56] LABS: Appearance Urine Clear; Glucose Urine UA Negative (Negative); PH 5.5 (5.0-9.0); Specific Gravity - Urine <= 1.005 (1.005-1.025); UMIC TRIGGER UA YES
[2024-09-08 12:06] LABS: B Type Natriuretic Peptide 52 pg/mL (<100)
== END 2024-09-08 09:21 | disposition home or self-care (01) ==
LOC: HO.WFDLDS 09:20
PROVIDERS: Physician Assistant; Referring Provider Internal Medicine Hypertension Specialist; Visit Provider Family Medicine
DX: Z01.818 Encounter for other preprocedural examination (principal); M79.89 Other specified soft tissue disorders
CPT/HCPCS: 36415; 80048; 81001; 83880

== ENCOUNTER 2024-09-09 07:31 | Outpatient (REF) | payer MEDICARE, MEDICAID, SELFPAY ==
--- OUTSIDE RECORDS SUMMARY | 2024-09-06 10:20 | XMS_ITS | Encounter Summary ---
Author Organization [facility] Address [address] [place] [address] Care Team Providers Care Calciner Feeder Name Role Phone Unavailable Primary Care Provider Unavailabl e Reason for Visit * Reason Comments Dental Hygiene/ Preventive Prophy Encounter Details Date Type Department Care Team (Late st Contact Info) Description 09/06/2024 10:20 AM EDT Office Visit [facility] [address] [place] [phone] VetoVicki reed [address] [place] [address] Social History Tobacco Use Types Packs/Day Years Used Date Smoking Tobacco: Never Assessed Comments Unknown Sex and Gender Information Value Date Recorded Sex Assigned at Not on file Legal Sex Female 8:25 AM PDT Gender Identity Not on file Sexual Orientation Not on file documented as of this encounter Progress Notes * Vicki Veto - 09/07/2024 1:59 PM EDT Prophy Subjective Noris Hou, 84 year old female, presents alone for prophy. Manual Tester: No Chief Complaint Patient presents with Dental Hygiene/ Preventive Prophy Objective RMHx: Yes Vitals: There were no vitals filed for this visit. Assessment EOE/IOE/Oral Cancer Screen: WNL Oral Hygiene: Fair Home Care: Toothbrush 1 x per day, Floss 0 x per day Fluoride exposure: toothpaste Plaque: Generalized Slight Calculus: Generalized Slight Gingival Description: Erythematous Inflammation: Generalized Slight Recession: Generalized Slight Bone Loss: Generalized Slight Staining: None Dx: Z01.20 Encounter for dental examination (primary encounter diagnosis) DH Dx Details: prophy only Plan ext with medical clearance Informed Consent/PARQ (Procedure, Alternatives, Risks, Questions): Patient confirms informed consent using PARQ. Dental procedures in this visit D1110 - PROPHYLAXIS - ADULT Full (Completed) Service provider: Vicki Laws Billing provider: Vicki Laws D1310 - NUTRITIONAL COUNSELING CONTROL OF DENTAL DISEASE Full (Completed) Service provider: Vicki Laws Billing provider: Vicki Laws D1330 - ORAL HYGIENE INSTRUCTIONS Full (Completed) Service provider: Vicki Laws Billing provider: Vicki Laws D9450 - CASE PRESENTATION SUBS DTL & EXTENSIVE TX PLN (Completed) Service provider: Vicki Laws Billing provider: Vicki Hernandez completed with ultrasonic industrial maintenance repairer helper OHI & Nutrition counseling provided, discussed: Gingivitis Post-Op Information Given: verbal Referral: No orders of the following type(s) were placed in this encounter: Referral. Rx: No orders of the defined types were placed in this encounter. Behavior: Excellent NV: ext with medical clearance documented in this encounter Plan of Treatment Upcoming Encounters Date Type Department Care Team (Late st Contact Info) Description 09/09/2024 9:00 AM EDT Office Visit [facility] [place] [address] Josh Dougherty DDS [address] [place] [address] documented as of this encounter Procedures Procedure Name Priority Date/Time Associated Diagnosis Comments CASE PRESENTATION SUBS DTL & EXTENSIVE TX PLN Routine 09/06/2024 10:20 AM EDT Encounter for dental examination Full ORAL HYGIENE INSTRUCTIONS Routine 09/06/2024 10:20 AM EDT Encounter for dental examination Full NUTRITIONAL COUNSELING CONTROL OF DENTAL DISEASE Routine 09/06/2024 10:20 AM EDT Encounter for dental examination Full PROPHYLAXIS - ADULT Routine 025 10:20 AM EDT Encounter for dental examination documented in this encounter Visit Diagnoses Diagnosis Encounter for dental examination- Primary Dental examination documented in this encounter
--- OUTSIDE RECORDS SUMMARY | 2024-09-09 07:34 | XMS_ITS ---
Author Organization [facility] Address [address] [place] [address] Phone Care Team Providers Care Material Flow Engineer Name Role Phone Ric Flor MD Primary Care Provider Syd Maria MD Unavailable [phone]- [phone] Active Problems Problem Noted Date Diagnosed Date [...] FEW TIMES THE PT TOOK HERSELF TO [facility] TO BE EVALUATED. THE ONLY SX THAT THE PT FELT WAS BLOATING AND CRAMPING EVERYTIME SHE ATE. PT HAD TO UNDERGO A COLONOSCOPY WITCH SHOWED THAT THE PT HAD BLEEDING COMING FROM THE ASCENDING,DESCENDING, AND TRANSVERSE COLON. PT WAS LATER [place]SF[place] [facility] [place] [...]
--- OUTSIDE RECORDS SUMMARY | 2024-09-09 07:34 | XMS_ITS | Patient Health Record ---
Author Organization [facility] Address [address] [place] [address] Care Team Providers Care Basket Hand Weaver Name Role Phone Syd Dhillon MD Primary Care Provider Un available Harsha Camara Unavailable [phone] Allergies Allergen (clinical drug ingredient) Drug/Non Drug [...] Problem Status W/U Status Risk Notes Problem 329082301 Encounter for screening for malignant neoplasm of colon (Z12.11) Active confirmed Problem 364792095 History of adenomatous polyp of colon (Z86.010) Active confirmed Problem 234347671 Gastroesophageal reflux disease, esophagitis presence not specified (K21.9) Active confirmed Plan Of Treatment Future Test Test Name Order Date COLONOSCOPY 11/04/2011 COLONOSCOPY 07/16/2016 Insurance Providers Payer Name Payer Address Payer Phone Subscriber Number Group Number Insured Name Patient Relationship to Insured Coverage Start Date Coverage End Date [place] [address] [place] [id number] KATYELVER Weeks Self - patient is the insured MEDEX ATTN CLAIMS [address] [place] [address] [phone] [id number] ELVER GABRER Self - patient is the insured Medical (General) History Medical History History ICD Code Colonoscopies in 2006 and in 2011--- Tubular adenomas removed in 2006 and in 11/2011; Cecal AVM's; diffuse diverticulosis; internal hemorrhoids Melanoma on RUE-surgery as below Hiatal hernia-EGD in 2006 Hypertension Asthma Denies HI,DM,CVA,renal disease Urinary retention-planning to see a urol ogist Diverticular bleed in 2009--at [facility] and [facility] Depression Surgical History Surgery Date(Month/Year) Ovarian cyst Skin cancer surgery-basal ce ll x 4, and melanoma on RUE Rx'd with local excisions by Dr. Dietz
[2024-09-09 09:56] LABS: INTERNATIONAL NORM RATIO 1.5 (0.9-1.1); Prothrombin Time 16.7 SEC (10.9-12.4)
== END 2024-09-09 07:32 | disposition home or self-care (01) ==
LOC: HO.WFDLDS 07:31
PROVIDERS: Referring Provider Physician Assistant Medical; Visit Provider Family Medicine
DX: Z79.01 Long term (current) use of anticoagulants (principal); E87.1 Hypo-osmolality and hyponatremia
CPT/HCPCS: 36415; 85610

== ENCOUNTER 2024-09-13 10:19 | Outpatient (AMB) | payer MEDICARE, MEDICAID, SELFPAY ==
[2024-09-13 10:30] VITALS: BP 84/50; PULSE 103; O2SAT 97; BMI 27.0
--- NOTE | 2024-09-13 10:30 | HO.NEPHOV_ITS ---
Vital Signs 09/13/24 10:30 Height 5 ft 1 in Weight 143 lb BMI 27.0 BP 84/50 L Blood Pressure Location Lt brachial Position Sitting Pulse 103 H Pulse Source Pulse Oximeter Pulse Oximetry (%) 97 Oxygen Delivery Method Room Air Intake Visit Reasons: 3 MO FU/ Conf Analyst Geochemical Prospecting Required: No Accompanied by: Self / Same As Patient Allergies Seasonal Allergies Allergy (Mild, Verified 09/13/24 10:33) runny nose latex Allergy (Verified 09/13/24 10:33) rash HPI Comments Details: 83-year-old woman with history of hypertension referred for hyponatremia. She has had mild asymptomatic hyponatremia for the last few years. She is on citalopram 20 mg lisinopril 10 mg and gabapentin twice a day. She admits to drinking plenty of water. Other labs were reviewed Few years ago serum sodium was at 01:25 millimoles. Current serum sodium was 128. Usually she is in the low 130s to high 120s. 09/13/24 Overall doing well. No specific complaints [facility] Medical History (Updated 09/09/24 @ 16:43 by LUCIO Stephens) LFT elevation Swelling of both lower extremities Pulmonary emboli (~01/2022) Skin cancer History of COVID-19 Essential hypertension Chronic allergic rhinitis Hyponatremia Asthma-COPD overlap syndrome Surgical History (Updated 09/13/24 @ 10:33 by GREGG Chauhan) History of nasal surgery (~05/2024) History of esophagogastroduodenoscopy (EGD) History of colonoscopy Family History Mother Breast cancer Father Prostate CA Stroke Social History Household Members: None Housing: House Housing Other:: mobile home- friend to be moving in Alcohol intake: current Alcohol intake frequency: 0-2 drinks per day Patient Tobacco Use Status: Former Tobacco user Tobacco use type: Cigarette Cigarette Packs Per Day: 1.0 Years Smoked: 10 years e-Cigarette/Vaping Use: Never Used Second Hand Smoke Exposure: No service: No Current occupational status: retired 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 Lungs entry equal no rales. Heart S1-S2 heard no gallop or rub. Abdomen soft nontender. Neuro alert awake oriented. No asterixis. Extremities no edema. Results Reviewed Nephrology Results: Hgb, (12.0-16.0) 11.7 g/dl L 09/07/24 WBC, (4.8-10.8) 5.9 X10*3/uL 09/07/24 Plt Count, (160-400) 296 X10*3/uL 09/07/24 Sodium, (135-145) 136 mmol/L 09/08/24 Potassium, (3.3-5.1) 4.0 mmol/L 09/08/24 Chloride, (96-108) 102 mmol/L 09/08/24 Carbon Dioxide, (22-29) 25 mmol/L 09/08/24 BUN, (9-16) 6 mg/dL L 09/08/24 Creatinine, (0.5-1.4) 0.70 mg/dL 09/08/24 Calcium, (8.4-10.2) 8.2 mg/dL L 09/08/24 Urine Protein, (Neg-Trace) Negative mg/dL 09/08/24 Assessment & Plan Assessment & Plan (1) Hyponatremia: Code(s): E87.1 - Hypo-osmolality and hyponatremia Category: Medical Plan Clinically she appears euvolemic. She probably has euvolemic hyponatremia. The decreased free water clearance may be due to the use of SSRIs. Other contributing factors would include use of both lisinopril and gabapentin. She has a history of COPD. This could be another contributing factor for non osmotic ADH release. Recommendation Limit oral free water intake to 1 L per 24 hours. Goal is to maintain serum sodium more than 130 millimoles. Change Lisinopril to Losartan 25 mg QD 09/13/24 Sodium normalized BP is LOW Stop Losartan 12.5 mg QD Recheck BP Coding Level of Care Code Est Pt Level 4 (43104) Diagnoses Hyponatremia E87.1
--- OUTSIDE RECORDS SUMMARY | 2024-09-13 10:57 | XMS_ITS ---
Author Organization [facility] Address [address] [place] [address] Phone Care Team Providers Care Manager Medical Writing Name Role Phone Ric Flor MD Primary Care Provider Syd Maria MD Unavailable [phone] Active Problems Problem Noted Date Diagnosed Date [...] Overview (06/14/2024): RECORDED 10/31/2011 2:41PM BY VIOLA BARRAAGN, KOMAL/ADDENDUM Anemia due to chronic blood loss [...] FEW TIMES THE PT TOOK HERSELF TO [facility] TO BE EVALUATED. THE ONLY SX [...]
--- OUTSIDE RECORDS SUMMARY | 2024-09-13 10:57 | XMS_ITS | Clinical Summary ---
Author Organization [facility] Address [address] [place] [address] Care Team Providers Care Fire Behavior Analyst Name Role Phone Unavailable Primary Care Provider [...] Problems Problem Noted Date Diagnosed Date Asthma ([facility]) 09/06/2024 Hypertension 09/06/2024 COPD (chronic obstructive pu lmonary disease) ([facility]) 09/06/2024 Encounters Date Type Department Care Team Description 09/06/2024 10:20 AM EDT Office Visit [facility] Dental [address] [place] [phone] Vicki Laws 09/06/2024 9:00 AM EDT Office Visit [facility] Dental [facility] [place] [phone] Jacy Saavedra from Last 3 Months Social History Tobacco Use Types Packs/Day Years Used Date Smoking Tobacco: Never Assessed Comments Unknown Sex and Gender Information Value Date Recorded Sex Assigned at Not on file Legal Sex Female 8:25 AM PDT Gender Identity Not on file Sexual Orientation Not on file Plan of Treatment Upcoming Encounters Date Type Department Care Team (Late st Contact Info) Description 09/14/2024 1:00 PM EDT Office Visit [facility] Dental [address] [place] [phone] Josh Dougherty, NATALIO [address] [place] [address] Health Maintenance Due Date Last Done Comments Dental Perio Charting 1940 Tobacco Screening 1940 Imm-Zoster, Recombinant (1 of 2) 08/12/1991 Bone Density Screening 2006 Falls Prevention 2006 Advanced Care Planning 03/23/2016 03/23/2015 Imm-RSV (adult) (1 - 1-dose 75+ series) 2016 Jfe-UIPOK-45 (4 - season) 2023 03/29/2021, 05/12/2020, 04/21/2020 Alcohol and Drug Screen 02/10/2024 Depression Annual Screen 02/10/2024 Imm-Influenza (#1) 2024 10/28/2019, 1 03/23/2018, 11/13/2017, Additional history exists Dental BW 09/08/2025 09/06/2024 Dental Examination 09/08/2025 09/06/2024 Dental Prophy 09/08/2025 09/06/2024 Dental FMX/Pano 09/08/2029 09/06/2024, 09/06/2024 Imm-DTaP/Tdap/Td (3 - Td or Tdap) 10/06/2032 023, 08/27/2011 Imm-Pneumococcal 50+ Completed 04/21/2014, 03/01/19 10 Procedures Procedure Name Priority Date/Time Associated Diagnosis [...] 10:20 AM EDT Encounter for dental examination INTRAORAL - COMP SERIES OF RADIOGRAPHIC IMAGES Routine 09/06/2024 9:00 AM EDT Caries Fracture of crown, enamel, and dentin of tooth with pulp exposure COMP ORAL EVALUATION - NEW/ESTABLISHED PATIENT Routine 09/06/2024 9:00 AM EDT Caries PANORAMIC RADIOGRAPHIC IMAGE Routine 09/06/2024 9:00 AM EDT Caries Fracture of crown, enamel, and dentin of tooth with pulp exposure 18 CROWN - PORCELAIN/CERAMIC Routine 09/06/2024 12:00 AM EDT 21 ROOT CANAL - WISDOM (NO BILLABLE) Routine 09/06/2024 12:00 AM EDT 28 ROOT CANAL - WISDOM (NO BILLABLE) Routine 09/06/2024 12:00 AM EDT 31 CROWN - PORCELAIN FUSED PREDOMINANTLY BASE METAL Routine 09/06/2024 12:00 AM EDT 30 CROWN - PORCELAIN FUSED PREDOMINANTLY BASE METAL Routine 09/06/2024 12:00 AM EDT 31 CROWN - PORCELAIN FUSED PREDOMINANTLY BASE METAL Routine 09/06/2024 12:00 AM EDT from Last 3 Months Insurance ID MEDICAID [id number]
--- OUTSIDE RECORDS SUMMARY | 2024-09-13 10:57 | XMS_ITS | Patient Health Record ---
Author Organization [facility] Address [address] [place] [phone] Care Team Providers Care Flexo Press Operator Name Role Phone Syd Dhillon MD Primary Care Provider Un available Harsha Camara Unavailable [phone] Allergies Allergen (clinical drug ingredient) Drug/Non Drug [...] Problem Status W/U Status Risk Notes Problem [id number] Encounter for screening for malignant neoplasm of colon (Z12.11) Active confirmed Problem [id number] History of adenomatous polyp of colon (Z86.010) Active confirmed Problem [id number] Gastroesophageal reflux disease, esophagitis presence not specified (K21.9) Active confirmed Plan Of Treatment Future Test Test Name Order Date COLONOSCOPY 11/04/2011 COLONOSCOPY 07/16/2016 Insurance Providers Payer Name Payer Address Payer Phone Subscriber Number Group Number Insured Name Patient Relationship to Insured Coverage Start Date Coverage End Date MEDICARE OF [place] [address] [place] [id number] KATYELVER Weeks Self - patient is the insured MED[employer] ATTN CLAIMS [address] [place] [address] [phone] [id number] ELVER GARBER Self - patient is the insured Medical (General) History Medical History History ICD Code Colonoscopies in 2006 and in 2011--- Tubular adenomas removed in 2006 and in 11/2011; Cecal AVM's; diffuse diverticulosis; internal hemorrhoids 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 Dietz
== END 2024-09-13 10:46 | disposition home or self-care (01) ==
LOC: HO.HKA 10:20
PROVIDERS: PCP Family Medicine; Visit Provider Internal Medicine Hypertension Specialist
DX: E87.1 Hypo-osmolality and hyponatremia (principal)
CPT/HCPCS: 99214

== ENCOUNTER → 2024-09-13 10:19 | Outpatient (BNVA) | payer MEDICARE, MEDICAID, SELFPAY | PROVIDERS: PCP Family Medicine; Visit Provider Internal Medicine Hypertension Specialist | DX: E87.1 Hypo-osmolality and hyponatremia (principal) | CPT/HCPCS: 99212 ==

== ENCOUNTER 2024-10-04 10:46 | Outpatient (AMB) | payer MEDICARE, MEDICAID, SELFPAY ==
--- OUTSIDE RECORDS SUMMARY | 2024-09-30 11:00 | XMS_ITS | Encounter Summary ---
Author Organization [facility] Address [address] [place] [address] Care Team Providers Care Landscape Contractor Name Role Phone Unavailable Primary Care Provider Unavailabl e Encounter Details Date Type Department Care Team (Late st Contact Info) Description 09/30/2024 11:00 AM EDT Office Visit [facility] Dental [address] [place] [phone] Josh Dougherty, MARTINES [address] [place] [address] Social History Tobacco Use Types Packs/Day Years Used Date Smoking Tobacco: Never Assessed Comments Unknown Sex and Gender Information Value Date Recorded Sex Assigned at Not on file Legal Sex Female 8:25 AM PDT Gender Identity Not on file Sexual Orientation Not on file documented as of this encounter Progress Notes * Josh Dougherty DDS - 09/30/2024 1:10 PM EDT Dental Extraction Subjective Noris Hou, 84 year old female, presents with relative/niece for extraction. Operations Clerk: No No chief complaint on file. Objective RMHx: Yes and Niece said that the patient was juts released from the hospital last night. They had noticed blood in her stools. She had recently changes medications when they were trying to lower theINR for her EXTs. They think that it must have been from the medication change. Her most recent INRwas 1.1. She said that the patient is scheduled for radiation on Thursday. We discussed that the patient will not be healed completely by Thursday, but she said that radiologist would block or was unconcerned about Assessment Dx: Z91.843 At high risk for dental caries (primary encounter diagnosis) Z01.20 Encounter for dental examination K02.9 Non-restorable carious tooth Dx Details (Clinical Decision-Making): Carious Non-Restorable #30 and #31 due to recurrent caries. Plan Informed Consent/PARQ (Procedure, Alternatives, Risks, Questions): Patient confirms informed consent using PARQ, reviewed extraction consent and signed. Time-out completed: Yes Dental procedures in this visit D7140 - EXTRACTION ERUPTED TOOTH OR EXPOSED ROOT 31 (Completed) Service provider: Josh Dougherty DDS Billing provider: Josh Dougherty DDS D7140 - EXTRACTION ERUPTED TOOTH OR EXPOSED ROOT 30 (Completed) Service provider: Josh Dougherty DDS Billing provider: Josh Dougherty DDS D9450 - CASE PRESENTATION SUBS DTL & EXTENSIVE TX PLN (Completed) Service provider: Josh Dougherty DDS Billing provider: Josh Dougherty DDS Topical Anesthetic: 20% topical benzocaine Local Anesthetic: 1 carpule 2% lidocaine with 1:100k epi and 1 carpule 4% articaine (Septocaine) with 1:100k epi Injection administered: Infiltration, IA Extraction(s) completed with periosteal, elevator, forceps, socket curretted, hemostasis obtained, gauze pressure, confirmed roots in tact and socket clear, no complications, suture: Chromic gut, 3.0, Colla-Plug placed in both sockets. Single interrupted suture and two figure-eight. Post-Op Information Given: written & verbal Pain Management: OTC Ibuprofen 800mg q6-8h and OTC Acetaminophen 500mg q6h Referral: No orders of the following type(s) were placed in this encounter: Referral. Rx: Orders Placed This Encounter Medications fluoride, sodium, (DENTAGEL) 1.1 % gel Sig: Place in mouth once daily Wellborn with Prevident 5000 once daily before bed; spit excess, do notrinse.. Dispense: 56 g Refill: 3 Behavior: Compliant DA: Carie NV: Treatment - Enameloplasty #21 and SDF documented in this encounter Miscellaneous Notes * Patient Instructions - VIKASH Gant - 09/30/2024 11:55 AM EDT If you are not able to keep your appointment please call 24-48 hours before your appointment to cancel or reschedule. documented in this encounter Plan of Treatment Upcoming Encounters Date Type Department Care Team ([facility] st Contact Info) Description 10/26/2024 9:00 AM EDT Office Visit [facility] Dental [address] [place] [phone] Josh Dougherty DDS [address] [place], [place] [phone] documented as of this encounter Procedures Procedure Name Priority Date/Time Associated Diagnosis Comments CASE PRESENTATION SUBS DTL & EXTENSIVE TX PLN Routine 09/30/2024 11:00 AM EDT Encounter for dental examination 30 EXTRACTION ERUPTED TOOTH OR EXPOSED ROOT Routine 09/30/2024 11:00 AM EDT Non-restorable carious tooth 31 EXTRACTION ERUPTED TOOTH OR EXPOSED ROOT Routine 09/30/2024 11:00 AM EDT Non-restorable carious tooth documented in this encounter Visit Diagnoses Diagnosis At high risk for dental caries- Primary Encounter for dental examination Dental examination Non-restorable carious tooth Retained tooth root Retained dental root documented in this encounter
[2024-10-04 11:07] LABS: Prothrombin Time Whole Bld POC 21.2 sec (11.1-13.5); ~PT, ~INR - Anti Coag Clinic 1.8 (0.9-1.1)
--- NOTE | 2024-10-04 11:13 | MHC.OFFVISCO ---
Intake Intake Visit Reasons: Anticoagulation Allergies Seasonal Allergies Allergy (Mild, Verified 10/04/24 11:00) runny nose latex Allergy (Verified 10/04/24 11:00) rash Medication List - Last Reconciled 10/04/24 by Anabella Otoole RN albuterol sulfate 90 mcg/actuation 2 puffs inhalation Q8H PRN budesonide-formoterol 160-4.5 mcg/actuation inhalation cetirizine (Zyrtec) 10 mg PO DAILY PRN cholecalciferol (vitamin D3) 50 mcg PO DAILY citalopram 20 mg PO DAILY 90 days clonazepam 0.5 mg PO BID PRN cyanocobalamin (vitamin B-12) 1,000 mcg PO DAILY diltiazem HCl CD 120 mg PO DAILY 90 days folic acid 1 mg PO DAILY gabapentin 300 mg PO DAILY PRN omeprazole 20 mg PO DAILY rivaroxaban (Xarelto) 20 mg PO DAILY 14 days tamsulosin 0.4 mg PO BEDTIME 90 days warfarin 2 mg See Protocol PO DAILY 30 days Nursing Note INR 1.8 out of therapeutic range 2.0-3.0 Medications and supplements reviewed Patient status: S/P GI bleed last week with admission, nasal ectomy and partial maxillary ectomy healing- drsg dry and intact dental extraction Thursday09/30/2024- no complications started radiation yesterday - daily except the weekends Medications or supplements: she stated she stopped her gabapentin because it wasnt helping her and since stopping her ankel swelling went down Diet: good Denies any signs and symptoms of bleeding or clotting or unusual bruising Bleeding, bruising, clotting discussed Nutritional guidance given: avoid all greens until INR greater than 2.0 - eat foods to help raise the INR Dose: 1mg daily for now and recheck INR 2 days Xarelto per md orders - will send this msg to PCP to ask if today can be her last dose - because of her recent GI bleed and it can potenciate the INR F/U INR Date : 2 days ?? Patient verbalizing understanding of instructions given. 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 Illness/Depression: Yes (anxiety ) Coding Level of Care Code Est Patient Level 1 Diagnoses Current use of anticoagulant therapy Z79.01 Assessment & Plan Assessment & Plan (1) Current use of anticoagulant therapy: Code(s): Z79.01 - intermediate card tender (current) use of anticoagulants Category: Medical
--- OUTSIDE RECORDS SUMMARY | 2024-10-04 11:36 | XMS_ITS | Encounter Summary ---
Author Organization [facility] Address [address] [place] [address] Phone Care Team Providers Care Cdl Team Truck Driver Name Role Phone Ric Flor MD Primary Care Provider Syd Maria MD Unavailable [phone]- [phone] Encounter Details Date Type Department Care Team (Late st Contact Info) Description 07/11/2024 Procedure Pass [facility] Periop [address] [place] [address] Social History Tobacco Use Types Packs/Day Years Used Date Smoking Tobacco: Former Smokeless Tobacco: Never Alcohol Use Standard Drinks/Week Comments Yes 5 (1 standard drink = 0.6 oz pur e alcohol) Child or Family Care Answer Date Record ed Do you have problems with on e of the following making it difficult for you to work, study, or receive health care? No 06/16/2024 Education Answer Date Recorded Are you interested in more education? Not on kemi e 06/03/2024 Are you concerned about learning? Not on file 06/03/2024 No 06/03/2024 No 06/03/2024 Food Answer Date Recorded Within the past 6 months we worried whether our food would run out before we got money to buy more. Never True 06/16/2024 Within the past 6 months the food we bought just didn't last and we didn't have enough money to get more. Never True Residential Stability Answer Date Recor ded What is your housing situation today? I have jennifer lopez 07/11/2024 How many times have you move d in the past 12 months? Zero (I did not move) 07/11/2024 Paying for Meds Answer Date Recorded Do you have trouble paying for medicines? No 07/11/2024 Paying Utility Bills Answer Date Record ed Do you have trouble paying your heating or elect ricity bill? No 07/11/2024 Transportation Answer Date Recorded Has the lack of transportati on kept you from medical appointments or from getting medications? No 06/16/2024 Digital Access Answer Date Recorded No 07/11/2024 Yes 07/11/2024 Do you have reliable internet access at home? Ye s 07/11/2024 Device with a working camera? Not on file Intimate Partner Violence Answer Date R ecorded Are you denied basic needs s uch as food, clothing, or medical care? No 07/11/2024 In the past 12 months have y ou been in a relationship with a person who hurts, threatens, or tries to control you? No 07/11/2024 Are you denied basic needs s uch as food, clothing, or medical care? No 07/11/2024 In the past 12 months have y ou been in a relationship with a person who hurts, threatens, or tries to control you? No 07/11/2024 Comments No Sex and Gender Information Value Date Recorded Sex Assigned at Female 05/26/2018 3:34 PM EDT Legal Sex Female 10:11 PM EDT Gender Identity Female 05/26/2018 3:34 PM EDT Sexual Orientation Straight 05/26/2018 3: 34 PM EDT documented as of this encounter Functional Status * Calculated C-SSRS Risk Score (Lifetime/Recent) Answer Date of Assessment Author No Risk Indicated 07/11/2024 4:51 PM EDT Abbey Mata RN * [place] Suicide Severity Rating Scale (Screener/Recent Self-Report) Question Answer Date of Assessment Author 1. Wish to be (Past 1 Month) No 025 4:51 PM EDT Abbey Mata, RN 2. Non-Specific Active Suici natalie Thoughts (Past 1 Month) No 07/11/2024 4:51 PM EDT Abbey Mata, RN 6. Suicidal Behavior (Lifetime) No 4:51 PM EDT Abbey Mata RN documented as of this encounter Plan of Treatment Upcoming Encounters Date Type Department Care Team (Late st Contact Info) Description 12/20/2024 10:00 AM EST [facility] [address] [place] [address] Sylvie Shirley MD, MPH [address] [place] [address] [email or web address] 12/20/2024 11:00 AM EST Office Visit [facility] [address] [place] [address] Kiley Holliday MD [address] [place] [phone] [email or web address] documented as of this encounter Visit Diagnoses Not on filedocumented in this encounter Care Teams Cdl Team Truck Driver Relationship Specialty Start Date End Date Ric Flor MD [address] [place] [phone] PCP - General Family Medicine 06/03/24 Syd Maria MD [address] [place] [phone] Referring Physician 06/03/24 documented as of this encounter Additional Source Comments The information contained in this document represents components of the legal health record. It is not the complete legal health record.[facility]
--- OUTSIDE RECORDS SUMMARY | 2024-10-04 11:36 | XMS_ITS | Encounter Summary ---
Author Organization [facility] Address [facility] [place] [address] Care Team Providers Care Insulation Estimator Name Role Phone Syd Dhillon Primary Care Provider Un available Gennaro Guillaume MD Primary Care Provider Susyva sean [facility], Pcp Primary Care Provider Adriana petersen Encounter Details Date Type Department Care Team Description 02/26/2017 Transfer Records Medical Records [address] [place] [id number] Abstract, Provider Social History Tobacco Use Types Packs/Day Years Used Date Smoking Tobacco: Former Cigarettes 1 15 Smokeless Tobacco: Never Sex Assigned at Date Recorded Not on file documented as of this encounter Plan of Treatment Not on file documented as of this encounter Visit Diagnoses Not on filedocumented in this encounter Care Teams Insulation Estimator Relationship Specialty Start Date End Date Syd Dhillon PCP - General Internal Medicine 02/20/17 9 Gennaro Guillaume MD PCP - General Internal Medicine 12/16/18 09/22/19 [facility], Pcp PCP - General Internal Medicine 09/23/19 documented as of this encounter
--- OUTSIDE RECORDS SUMMARY | 2024-10-04 11:36 | XMS_ITS | Encounter Summary ---
Author Organization [facility] Address [address] [place] [address] Care Team Providers Care Nut Sheller Name Role Phone Syd Dhillon Primary Care Provider Un available Gennaro Guillaume MD Primary Care Provider Yadira Jordan, Pcp Primary Care Provider Unavailabl e Reason for Visit * Reason Comments E-prescribe Rx Request Encounter Details Date Type Department Care Team Description 05/05/2017 Refill Pulmonology [address] [place] [phone] Aquiles Weems MD E-prescribe Rx Request Social History Tobacco Use Types Packs/Day Years Used Date Smoking Tobacco: Former Cigarettes 1 15 Smokeless Tobacco: Never Sex Assigned at Date Recorded Not on file documented as of this encounter Plan of Treatment Not on file documented as of this encounter Visit Diagnoses Not on filedocumented in this encounter Care Teams Nut Sheller Relationship Specialty Start Date End Date Syd Dhillon PCP - General Internal Medicine 02/20/17 9 Gennaro Guillaume MD PCP - General Internal Medicine 12/16/18 09/22/19 Nikki, Pcp PCP - General Internal Medicine 09/23/19 documented as of this encounter
--- OUTSIDE RECORDS SUMMARY | 2024-10-04 11:36 | XMS_ITS | Encounter Summary ---
Author Organization [facility] Address [facility] [place] [address] Care Team Providers Care Honing Machine Operator Semiautomatic Name Role Phone Gennaro Guillaume MD Primary Care Provider Yadira Jordan, Pcp Primary Care Provider Adriana petersen Encounter Details Date Type Department Care Team Description 07/11/2019 Telephone Medicine/Pediatrics - [address] [address] Gennaro Guillaume MD Social History Tobacco Use [...] on filedocumented in this encounter Care Teams Honing Machine Operator Semiautomatic Relationship Specialty Start Date End Date Gennaro Guillaume MD PCP - General Internal Medicine 12/16/18 09/22/19 Nikki, Pcp PCP - General Internal Medicine 09/23/19 documented as of this encounter
--- OUTSIDE RECORDS SUMMARY | 2024-10-04 11:36 | XMS_ITS ---
Author Organization [facility] Address [address] [place] [address] Phone Care Team Providers Care Freight Claim Investigator Name Role Phone Ric Flor MD Primary Care Provider Syd Maria MD Unavailable [phone]- [phone] Active Problems Problem Noted Date Diagnosed Date [...] FEW TIMES THE PT TOOK HERSELF TO [facility] TO BE EVALUATED. THE ONLY SX THAT THE PT FELT WAS BLOATING AND CRAMPING EVERYTIME SHE ATE. PT HAD TO UNDERGO A COLONOSCOPY WITCH SHOWED THAT THE PT HAD BLEEDING COMING FROM THE ASCENDING,DESCENDING, AND TRANSVERSE COLON. PT WAS LATER TRANSFERRED TO [facility] TO BE WATCHED CLOSELY. PT WAS THEN [...]
--- OUTSIDE RECORDS SUMMARY | 2024-10-04 11:36 | XMS_ITS | Patient Health Record ---
Author Organization [facility] Address [address] [place] [id number] Care Team Providers Care Sustainable Landscape Architect Name Role Phone Syd Dhillon MD Primary Care Provider Un available Harsha Camara Unavailable [phone] Allergies Allergen (clinical drug ingredient) Drug/Non Drug [...] Problem Status W/U Status Risk Notes Problem [id number] Encounter for screening for malignant neoplasm of colon (Z12.11) Active confirmed Problem 369437170 History of adenomatous polyp of colon (Z86.010) Active confirmed Problem [id number] Gastroesophageal reflux disease, esophagitis presence not specified (K21.9) Active confirmed Plan Of Treatment Future Test Test Name Order Date COLONOSCOPY 11/04/2011 COLONOSCOPY 07/16/2016 Insurance Providers Payer Name Payer Address Payer Phone Subscriber Number Group Number Insured Name Patient Relationship to Insured Coverage Start Date Coverage End Date MEDICARE OF [place] [address] [place] [id number] KATYELVER Weeks Self - patient is the insured [employer] CLAIMS [address] [place] [address] [id number] ELVER GARBER Self - patient is the insured Medical (General) History Medical History History ICD Code Colonoscopies in 2006 and in 2011--- Tubular adenomas removed in 2006 and in 11/2011; Cecal AVM's; diffuse diverticulosis; internal hemorrhoids Melanoma on RUE-surgery as below Hiatal hernia-EGD in 2006 Hypertension Asthma Denies MT,DM,CVA,renal disease Urinary retention-planning to see a urol ogist Diverticular bleed in 2009--[facility] Depression Surgical History Surgery Date(Month/Year) Ovarian cyst Skin cancer surgery-basal ce ll x 4, and melanoma on RUE Rx'd with local excisions by Dr. Dietz
--- OUTSIDE RECORDS SUMMARY | 2024-10-04 11:36 | XMS_ITS | Encounter Summary ---
Author Organization [facility] Address [address] [place] [address] Phone Care Team Providers Care Rebrander Name Role Phone Ric Flor MD Primary Care Provider Syd Maria MD Unavailable [phone]- [phone] Encounter Details Date Type Department Care Team (Late st Contact Info) Description 06/20/2024 Prep for [facility] [place] [place] [address] [place] [address] Sylvie Shirley MD, MPH [address] [place] [address] 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 I have jennifer sing 06/16/2024 How many times have you move d in the past 12 months? Zero (I did not move) 06/16/2024 Paying for Meds Answer Date Recorded Do you have trouble paying for medicines? No 06/16/2024 Paying Utility Bills Answer Date Record ed Do you have trouble paying your heating or elect ricity bill? No 06/16/2024 Transportation Answer Date Recorded Has the lack of transportati on kept you from medical appointments or from getting medications? No 06/16/2024 Digital Access Answer Date Recorded No 06/03/2024 No 06/03/2024 Reliable internet access at home? Not on file 06/03/2024 Device with a working camera? Not on file Comments Unknown Sex and Gender Information Value Date Recorded Sex Assigned at Female 05/26/2018 3:34 PM EDT Legal Sex Female 10:11 PM EDT Gender Identity Female 05/26/2018 3:34 PM EDT Sexual Orientation Straight 05/26/2018 3: 34 PM EDT documented as of this encounter Plan of Treatment Upcoming Encounters Date Type Department Care Team (Late st Contact Info) Description 12/20/2024 10:00 AM EST [facility] Visit [facility] [place] [address] [place] [address] Sylvie Shirley MD, MPH [address] [place] [email or web address] 12/20/2024 11:00 AM EST Office Visit [facility] [place] [address] [place] [address] Kiley Holliday MD [address] [place] [address] [email or web address] documented as of this encounter Visit Diagnoses Diagnosis Squamous cell cancer of skin of nose- Primary documented in this encounter Care Teams Rebrander Relationship Specialty Start Date End Date Ric Flor MD [address] [place] [id number] PCP - General Family Medicine 06/03/24 Syd Maria MD [address] [place] [address] Referring Physician 06/03/24 documented as of this encounter Additional Source Comments The information contained in this document represents components of the legal health record. It is not the complete legal health record.[facility]
--- OUTSIDE RECORDS SUMMARY | 2024-10-04 11:36 | XMS_ITS | Clinical Summary ---
Author Organization [facility] Address [address] [place] [address] Phone Care Team Providers [facility] Resource [facility] Teacher Name Role Phone Ric Flor MD Primary Care Provider Syd Maria MD Unavailable [phone] Allergies Active Allergy Reactions Criticality Noted Date Comments Cat Dander Sneezing 07/06/2024 Latex Rash Low 01/27/2013 Medications dilTIAZem (CARDIZEM CD) 120 MG 24 hr capsule Take 120 mg by mouth daily. Active omeprazole (PRILOSEC) 20 MG capsule Take 20 mg by mouth daily. Active budesonide-formo terol (SYMBICORT) 160-4.5 mcg/actuation inhaler Inhale 2 puffs into the lungs. 8 Active cetirizine (ZYRTEC) 10 mg capsule Take 10 mg by mouth daily as needed (allergies). Active clonazePAM (KLONOPIN) 0.5 MG tablet Take 0.5 mg by mouth 2 (two) times a day as needed for anxiety. 5 Active citalopram (CELEXA) 20 MG tablet Take 20 mg by mouth daily. Active tamsulosin (FLOMAX) 0.4 mg Cap Take 0.4 mg by mouth nightly at bedtime. Active gabapentin (NEURONTIN) 300 MG capsule Take 300 mg by mouth daily. Active cholecalciferol (VITAMIN D3) 2,000 unit tablet Take 2,000 Units by mouth daily. Active warfarin (COUMADIN) 2 MG tablet Take 2 mg by mouth as directed. 0.5 tablets by mouth 6 days weekly and 1 tablet on Active albuterol (VENTOLIN HFA) 90 mcg/actuation inhaler Inhale 1 puff into the lungs as needed for shortness of breath/dyspnea or wheezing. Active losartan (COZAAR) 25 MG tablet Take 0.5 tablets by mouth daily. Active WIXELA INHUB 500-50 mcg/dose DISKUS 1 mcg/dose Active fluticasone propionate (FLONASE) 50 mcg/actuation nasal spray 1 mcg/actuation Ac tive ipratropium (ATROVENT) 42 mcg (0.06 %) nasal spray Active montelukast (SINGULAIR) 10 mg tablet montelukast 10 mg tablet Active sertraline (ZOLOFT) 50 MG tablet Active enoxaparin (LOVENOX) 40 mg/0.4 mL Syrg subcutaneous syringe Active oxyCODONE 5 MG immediate release tablet Take 0.5-1 tablets (2.5-5 mg total) by mouth every 4 (four) hours as needed for pain (specific location in comments) (acute post-op pain). Partial fill ok 15 tablet Active polyethylene glycol (MIRALAX) 17 gram packet Take 17 g by mouth daily as needed for other (free text field) (severe constipation). Active acetaminophen (TYLENOL) 325 mg tablet Take 2 tablets (650 mg total) by mouth every 6 (six) hours. 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 THAT EVENING EVERY TIME THE PT ATE SOMETHING SHE WOULD BE GOING TO THE BATHROOM TO HAVE A BM THAT WAS FILLED WITH BLOOD. AFTER A FEW TIMES THE PT TOOK HERSELF TO [facility] TO BE EVALUATED. THE ONLY SX [...] 2:41PM BY VIOLA BARRAGAN, ANNOTATION/ADDENDUM Herpes zoster Resolved Problems Problem Noted Date Diagnosed Date [...] (07/06/2024): RECORDED 10/31/2011 2:41PM BY VIOLA BARRAGAN, ANNOTATION/ADDENDUM Difficult or painful urination 10/31/2011 07/06/2024 Overview (07/06/2024): IMPRESSION: 3+ LEUKOCYTES ON UA TODAY, COMPLETED BACTRIM 2 DAYS AGO, START CIPRO AND SEND CULTURE; RECORDED 10/31/2011 2:41PM BY VIOLA BARRAGAN, ANNOTATION/ADDENDUM Hemorrhage of colon 10/31/2011 07/07/19 Overview (07/06/2024): STORY: STABLE/ STILL ANEMIC; RECORDED 10/31/2011 2:41PM BY VIOLA BARRAGAN, ANNOTATION/ADDENDUM Tachycardia 10/31/2011 07/06/2024 Overview (07/06/2024): RECORDED 10/31/2011 2:42PM BY VIOLA BARRAGAN, ANNOTATION/ADDENDUM Encounters Date Type Department Care Team Description 09/15/2024 Telephone [facility], [address], [address] [place] [id number] Ansley Johnston, RN ACO Care Coordination 09/02/2024 11:30 AM EDT Office Visit [facility], [address], [address] [place] [address] Perez Shirley MD, MPH Cancer of nasal cavities (Primary Dx) 08/23/2024 Telephone [facility], [address], [address] [place] [address] Ansley Johnston, RN ACO Care Coordination 08/10/2024 Telephone [facility], [address], [address] [place] [address] Wililam Niño, FLAT OPTICAL ELEMENT MAKER 08/10/2024 Social Work Social Work Department, [address] [address] Ekaterina Curtis LCSW 08/04/2024 Orders Only [facility] Department of Radiation Oncology [address] [place] [address] Yenny Guardado, RN 07/27/2024 11:30 AM EDT Office Visit [facility], [facility] [address] [facility] [place] [address] Narendra Owens MD, PhD Cancer of nasal cavities (Primary Dx) 07/27/2024 9:10 AM EDT Office Visit [facility] Facial Plastics [facility] [address] 9th [place] [address] Tony Garcia MD Acquired nasal deformity (Primary Dx) 07/19/2024 11:00 AM EDT Office Visit [facility], [facility] [address] [facility] [place] [address] Perez Shirley MD, MPH 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) 07/19/2024 Telephone [facility], [facility] [address] [facility] [place] [address] Denisse Buckner, RN Care Coordination 07/11/2024 11:52 AM EDT Anesthesia Event [facility] Periop [address] [place] [address] Cait Ragsdale MD, PhD Inocencia Trimble NP, PhD 07/11/2024 11:06 AM EDT - 07/11/2024 3:15 PM EDT Surgery [facility] [address] [place] [address] Perez Shirley MD, MPH RHINECTOMY 07/11/2024 9:38 AM EDT - 07/12/2024 3:01 PM EDT Hospital Encounter [facility] [address]B [address] [place] [address] Perez Shirley MD, MPH Discharge Disposition: Home-Health Care Svc 07/11/2024 9:16 AM EDT - 07/11/2024 9:37 AM EDT Hospital Encounter [facility] Phlebotomy Admitting [address] [place] [address] Discharge Disposition: Home or Self Care 07/11/2024 Procedure Pass [facility] [address] [place] [address] 07/10/2024 2:57 PM EDT - 07/10/2024 11:59 PM EDT Hospital Encounter [facility] Phlebotomy, [facility] [address] [place] [address] Discharge Disposition: Home or Self Care 07/06/2024 2:30 PM EDT Pre-Admission Testing [facility] [address] [address] Perez Shirley MD, MPH HTN (hypertension) with goal to be determined (Primary Dx); Chronic obstructive pulmonary disease; Herpes zoster; DVT (deep venous thrombosis) 07/05/2024 Documentation [facility], [facility] [place] [address] [facility], [address] [place] [address] Ansley Johnston, PATRICE 07/05/2024 Telephone [facility], [facility] [address] [facility], [address] [place] [address] Ansley Johnston, RN ACO Care Coordination from Last 3 Months Social History Tobacco [...] Orientation Straight 05/26/2018 3: 34 PM EDT Last Filed Vital Signs Vital Sign Reading Time Taken Comments Blood Pressure 93/55 09/02/2024 11:00 AM EDT Pulse 89 09/02/2024 11:00 AM EDT Temperature 36.2 C (97.1 F) 09/02/2024 10:59 AM EDT Respiratory Rate 18 09/02/2024 10:59 AM EDT Oxygen Saturation 95% 09/02/2024 11:00 AM EDT Inhaled Oxygen Concentration 35% 07/11/2024 3 :30 PM EDT Weight 65 kg (143 lb 4.8 oz) 09/02/2024 10:59 AM EDT Height 154.9 cm (5' 1 ) 07/11/2024 4:37 PM EDT Body Mass Index 27.08 07/11/2024 4:37 PM EDT Plan of Treatment Upcoming Encounters Date Type Department Care Team (Late st Contact Info) Description 12/20/2024 10:00 AM EST Office Visit [facility], [facility] [address] [facility] [place] [address] Perez Shirley MD, MPH [address] [place] [address] [email or web address] 12/20/2024 11:00 AM EST Office Visit [facility], [facility] [address] [facility] 5th [place] [address] Kiley Holliday MD [address] [place] [address] [email or web address] Health Maintenance Due Date Last Done Comments DEPRESSION SCREENING 1952 ZOSTER VACCINES (1 of 2) 1960 OSTEOPOROSIS SCREENING INITI AL (ONE-TIME) 2006 RSV VACCINE (1 - 1-dose 75+ series) 2016 COVID-19 VACCINE ( - 2023-2 5 season) 2023 03/29/2021, 05/12/2020, 04/21/2020 BLOOD PRESSURE 03/05/2025 09/02/2024 CREATININE LEVEL 07/12/2025 07/12/2024, 07/10/2024 POTASSIUM LEVEL 07/12/2025 07/12/2024, 07/10/2024 Adult Td,Tdap Booster 10/06/2032 10/06/2022 , 08/27/2011 PNEUMOCOCCAL VACCINES (50+ years) Completed 06/03/2023, 04/21/2014, 03/01/2009 HEPATITIS A VACCINES Aged Out No long er eligible based on patient's age to complete this topic HIB VACCINES Aged Out No longer eligi ble based on patient's age to complete this topic MENINGOCOCCAL VACCINES (ACWY) Aged Out No longer eligible based on patient's age to complete this topic MENINGOCOCCAL VACCINES (B) Aged Out N o longer eligible based on patient's age to complete this topic Medical Devices Not on file Procedures Procedure Name Priority Date/Time Associated Diagnosis Comments LAB ADD ON Routine 07/12/2024 9:10 AM EDT CBC Routine 07/12/2024 4:10 AM EDT PHOSPHORUS Routine 07/12/2024 4:10 AM EDT MAGNESIUM Routine 07/12/2024 4:10 AM EDT BASIC METABOLIC PANEL Routine 07/12/2024 4:10 AM EDT POCT GLUCOSE Routine 07/11/2024 1:38 PM EDT AIRWAY PLACEMENT Routine 07/11/2024 12:0 4 PM EDT [place] REMV UPPER JAW-MAXILLECTOMY 07/11/2024 11:40 AM EDT Squamous cell cancer of skin of nose Special Needs SCT 2.5 HOURSCODES: 95577, [id number] WAIT LIST THE CASE TO START AT 7:30SCHEDULE PER EMAIL. TIME: 2.5 HOURS. FOLLOW UP 1 WEEK POSTOP AT [facility] [place] EXCIS/DEST INTRANAS LESION; INT MAXI 07/11/2024 11:40 AM EDT Squamous cell cancer of skin of nose Special Needs SCT 2.5 HOURSCODES: 05995, [id number] WAIT LIST THE CASE TO START AT 7:30SCHEDULE PER EMAIL. TIME: 2.5 HOURS. FOLLOW UP 1 WEEK POSTOP AT [facility] POCT GLUCOSE Routine 07/11/2024 10:44 AM EDT PT-INR STAT 07/11/2024 9:23 AM EDT ANATOMIC PATHOLOGY Routine 07/11/2024 12 :00 AM EDT TYPE AND SCREEN (ABO,RH,ANTIBODY SCREEN) Routine 07/10/2024 3:01 PM EDT HTN (hypertension) with goal to be determined CBC Routine 07/10/2024 3:01 PM EDT HTN (hypertension) with goal to be determined BASIC METABOLIC PANEL Routine 07/10/2024 3:01 PM EDT HTN (hypertension) with goal to be determined from Last 3 Months Results * Lab Add On: iNR (07/12/2024 9:10 AM EDT) TEST REQUESTED INR [facility] Comments (Chemistry) UNABLE TO ADD ON TEST. [facility] Comment: (NOTE) PROVIDER NOTIFIED 07/12/2024 9:10 AM EDT 07/12/2024 9:12 AM EDT Suellen Hopper PA-C LAB BLOOD ORDERABLES Final Result Performing Organization Address City/State/[facility] Co de Phone Number [facility] [address] [place] [phone] * (ABNORMAL) CBC (07/12/2024 4:10 AM EDT) Only the most recent of2 resultswithin the time period is included. WBC 4.45 4.00 - 11.00 K/uL [facility] RBC 3.82(L) 4.00 - 5.20 M/uL [facility] HGB 10.7(L) 12.0 - 16.0 g/dL [facility] HCT 34.0(L) 36.0 - 46.0 % [facility] PLT 241 150 - 450 K/uL [facility] MCV 89.0 80.0 - 100.0 fL [facility] MCH 28.0 27.0 - 31.0 pg [facility] MCHC 31.5(L) 32.0 - 36.0 g/dL [facility] RDW 15.2(H) 11.5 - 14.5 % [facility] MPV 9.7 8.4 - 12.0 fL [facility] NRBC 0.00 0.00 /100 WBCs [facility] ABSOLUTE NRBC 0.00 0.00 K/uL [facility] Blood 07/12/2024 4:10 AM EDT 07/12/2024 5:11 AM EDT Joana Mandeep Shirley MD, MPH LAB BLOOD ORDERA BLES Final Result Performing Organization Address City/[facility]/ZIP Co de Phone Number [facility] [address] [place] [phone] * Phosphorus (07/12/2024 4:10 AM EDT) PHOSPHORUS 3.6 2.4 - 4.3 mg/dL [facility] Blood 07/12/2024 4:10 AM EDT 07/12/2024 5:11 AM EDT Joana Mandeep Shirley MD, MPH LAB BLOOD ORDERA BLES Final Result Performing Organization Address [facility] Co de Phone Number [facility] [address] [place] [phone] * Magnesium (07/12/2024 4:10 AM EDT) MAGNESIUM 1.9 1.7 - 2.6 mg/dL [facility] Blood 07/12/2024 4:10 AM EDT 07/12/2024 5:11 AM EDT Joana Mandeep Shirley MD, MPH LAB BLOOD ORDERA BLES Final Result Performing Organization Address [facility] Co de Phone Number [address] [phone] * (ABNORMAL) Basic metabolic panel (07/12/2024 4:10 AM EDT) Only the most recent of2 resultswithin the time period is included. SODIUM 134(L) 136 - 145 mmol/L [facility] POTASSIUM 4.2 3.4 - 5.1 mmol/L [facility] CHLORIDE 99 98 - 107 mmol/L [facility] CO2 26 22 - 31 mmol/L [facility] BUN 7 6 - 23 mg/dL [facility] CREATININE 0.59 0.50 - 1.20 mg/dL [facility] Comment: GLUCOSE 141(H) 70 - 100 mg/dL [facility] CALCIUM 8.1(L) 8.8 - 10.7 mg/dL [facility] EGFR 90 >59 mL/min/1.7 3m2 [facility] Comment: Estimated glomerular filtration rate calculated using the CKD-EPI refit equation. ANION GAP 9 7 - 17 mmol/L [facility] Blood 07/12/2024 4:10 AM EDT 07/12/2024 5:11 AM EDT Perez Shirley MD, MPH LAB BLOOD ORDERA BLES Final Result Performing Organization Address City/[facility]/ZIP Co de Phone Number [facility] [address] [place] [address] * (ABNORMAL) POCT Glucose (07/11/2024 1:38 PM EDT) Only the most recent of2 resultswithin the time period is included. Glucose, POCT 140(H) 70 - 100 mg/dL [facility] 07/11/2024 1:38 PM EDT 07/11/2024 1:40 PM EDT [facility] Mandeep Shirley MD, MPH POINT OF CARE TE ST ORDERABLES Final Result [facility] [address] [place] [address] * ANES ETT DOUBLE LUMEN - AIRWAY LDA (07/11/2024 12:04 PM EDT) Narrative Emanuel Garcia MD - 07/11/2024 12:04 PM EDT Emanuel Garcia MD 07/11/2024 12:12 PM Airway Placement Procedure Note: Patient was not difficult to intubate. Procedure performed by: fellow/resident/HEADER SET UP OPERATOR Anesthesiologist: Cait Ragsdale MD, PhD Fellow/Resident/HEADER SET UP OPERATOR: Emanuel Garcia MD Airway procedure initiated at:07/11/2024 12:04 PM and ended at. Personal Protective Equipment: Mask: surgical mask Eye Protection: eye shield Gloves: gloves Gown: no gown Mask Ventilation: Quality: not attempted Airway Placement: Technique: video laryngoscopy Rapid sequence induction: no Details: Blade type: Mac Blade size: Mac S3 Direct view: grade 1 Number of attempts: 1 ETT type: cuffed ETT size: 7.0 ETT depth at teeth: 21 ETT cuff inflation volume: 8 Tube position confirmed by: EtCO2 Bite Block: soft Outcomes: Evidence of dental injury? no Complications observed? no us Cait Ragsdale MD, PhD [place] ANESTHESIA Final Resu lt * (ABNORMAL) PT-INR (07/11/2024 9:23 AM EDT) PT 14.1(H) 10.0 - 13.0 sec [facility] INR 1.2(H) 0.9 - 1.1 [facility] 07/11/2024 9:23 AM EDT 07/11/2024 9:52 AM EDT Inocencia Trimble NP, PhD LAB BLOOD ORDERABLE S Final Result [facility] [address] [place] [address] * Anatomic Pathology (07/11/2024 12:00 AM EDT) 07/11/2024 07/11/2024 Narrative [facility] - 07/22/2024 2:48 PM EDT CASE: [id number] PATIENT: ELVER HOU Date: 1940 Sex: Female [facility] Department of Pathology [address] [place] [address] CLIA License No.: [id number] Vineyard Tender: Dr. Mario Alberto Rich M.D., Ph.D. Physician: PEREZ SHIRLEY MD, MPH Procedure Date: 07/11/2024 Resident: Barbara Singh MD Pathologist: Rosita Canseco M.D. PATHOLOGIC DIAGNOSIS: A. NASAL MASS, TOTAL RHINECTOMY: INVASIVE SQUAMOUS CELL CARCINOMA (3.4 cm). See SYNOPTIC REPORT for additional details. NASAL CAVITY AND PARANASAL SINUSES SYNOPTIC REPORT Procedure Total rhinectomy with partial bilateral maxillectomy Tumor Site Nasal septum Comment(s): Tumor involves the left nasal floor, columella, and superior nasal vault with extension into skin of nose Tumor Laterality Left Tumor Focality Unifocal Tumor Size Greatest dimension: 3.4cm x 2.6cm x 2.1cm Histologic Type Squamous cell carcinoma, keratinizing Histologic Grade G2: Moderately differentiated Bone/Cartilage Invasion Present Margins Involved by invasive tumor Margin(s): Deep Comment(s): Distance of uninvolved close margins from tumor: 1 mm inferior, 1 mm left lateral, 3 mm superior Lymphovascular Invasion Not Identified Perineural Invasion Present Additional Pathologic Findings None identified Regional Lymph Nodes No lymph nodes submitted or found PATHOLOGIC STAGE CLASSIFICATION (AJCC 8th Edition) Primary Tumor: pT4a Regional Lymph Nodes: pNX CLINICAL DATA: History: Squamous cell cancer of skin of nose. Operation: Rhinectomy (bilateral), maxillectomy partial (bilateral). Operative Findings: None provided. Clinical Diagnosis: None provided. TISSUE SUBMITTED: . Total rhinectomy (short-superior, long-left lateral) GROSS DESCRIPTION: The specimen is received in 1 part, labeled with the patient's name and medical record number. Part A received fresh labeled Total rhinectomy (short-superior, long-left lateral) consists of a total rhinectomy specimen (4.6 x 4.0 x 4.0 cm) consisting of skin with 2 patent nares, a deep surface consisting of cartilaginous tissue and a focal area of hard palate. The specimen is oriented by the surgeon with a short stitch marking superior and a long stitch marking left lateral. The specimen is inked as follows: Superior-red, inferior-green, left lateral-yellow, right lateral-orange, and deep-black. The specimen displays an ulcer with an underlying pink-khan friable mass measuring 3.4 x 2.6 x 2.1 cm. Sectioning reveals a mass located 0.8 cm from the superior margin, 0.2 cm from the left lateral margin, 0.6 cm from the right lateral margin, abutting the deep margin, and 0.1 cm from the inferior margin. A players club representative section of tumor is submitted for research. Gross photographs are taken. Loan Service Officer sections are submitted, following decalcification. A1: Focal area of hard palate margin on the deep aspect, en face, 1 fragment A2-A3: Superior margin, perpendicular, 2 fragments each A4-A5: Cross-section to include mass to deep and left and right lateral margins in A4, quadrisected, 3 fragments in A4 and 1 fragment in A5 A6-A7: Cross-section to include mass to left and right lateral margins in A6 and deep margin in A7, quadrisected, 2 fragments each A8: Mass to inferior, deep, and closest right lateral margin, 1 fragment A9-A10: Mass to inferior and deep margins, 2 fragments each A11: Mass to closest left lateral margin, 1 fragment Dictated by: Cynthia Bustamante By his/her signature below, the senior physician certifies that he/she personally conducted a microscopic examination ( gross only exam if so stated) of the described specimen(s) and rendered or confirmed the diagnosis(es) related thereto. Final Diagnosis by Rosita Canseco M.D., Electronically signed on Monday July 22, 2024 at 02:47:47PM Joana Mandeep Shirley MD, MPH PATHOLOGY ORDERA BLES Final Result [facility] [address] [place] [phone] * Type and Screen (ABO,Rh,Antibody Screen) (07/10/2024 3:01 PM EDT) Expiration Date of Sample 07/31/2024 11:59 PM 07/10/2024 3:54 PM EDT [facility] Resulting Agency [facility] ABO Type A 07/10/2024 3:54 PM EDT [facility] Rh Type Negative 07/10/2024 3:54 PM EDT [facility] Antibody Screen Negative 07/10/2024 3:54 PM EDT [facility] 07/10/2024 3:01 PM EDT 07/10/2024 3:09 PM EDT us Inocencia Trimble PATIENT COORDINATOR, PhD BLOOD BANK TEST ORD ERABLES Final Result [facility] [address] [place] [address] from Last 3 Months Insurance MEDICARE PART A & B [employer] MEDEX SUPPLEMENT [facility] PART A & B [employer] [place] MEDEX SUPPLEMENT [facility] MEDICARE PART A & B [employer] SUPPLEMENT MEDICARE PART A & B [employer] MEDEX SUPPLEMENT MEDICARE PART A & B [employer] MEDEX SUPPLEMENT [facility] MEDICARE PART A & B [employer] MEDEX SUPPLEMENT MEDICARE PART A & B [employer] MEDEX SUPPLEMENT Member Subscriber Plan / Payer (Ef fective 2006-Present) Name:Elver Hou Relation to Subscriber:Self Name:Elver Hou Payer ID:[id number] (NAIC) Type:Indemnity Address: [facility] [id number] MEDICARE PART A & B [employer] MEDEX SUPPLEMENT [facility] MED[facility] PART A & B [employer] MEDEX SUPPLEMENT [facility] [employer] Advance Directives For more information, please contact: [phone] (9AM - 5PM [facility], Thursday-Thursday) Documents on File Type Date Recorded Patient Loan Service Officer Expl anation Healthcare Proxy 07/11/2024 * Full Code (Latest Code Status on File) Date Activated Date Inactivated Comments 07/11/2024 1:25 PM Question Answer Comments Code Status Confirmed With: Patient Care Teams Resource Center Teacher Relationship Specialty Start Date End Date Ric Flor MD [address] [place] [phone] PCP - General Family Medicine 06/03/24 Syd Maria MD [address] [place] [phone] Referring Physician 06/03/24 Additional Source Comments The information contained in this document represents components of the legal health record. It is not the complete legal health record.[facility]
--- OUTSIDE RECORDS SUMMARY | 2024-10-04 11:36 | XMS_ITS | Encounter Summary ---
Author Organization [facility] Address [address] [place] [address] Care Team Providers Care Newspaper Photo Editor Name Role Phone Gennaro Guillaume MD Primary Care Provider Yadira [facility], Pcp Primary Care Provider Unavaildannie e Reason for Visit * Reason Onset Date Comments medication problems 07/01/2019 Encounter Details Date Type Department Care Team Description 07/01/2019 Telephone Medicine/Pediatrics - [address] [phone] Gennaro Guillaume MD medication problems Social History [...] EDT Who is calling? A pharmacist: Pharmacy: [facility] - Pharmacist Name: FAX - Pharmacy [...] unspecified documented in this encounter Care Teams Newspaper Photo Editor Relationship Specialty Start Date End Date Gennaro Guillaume MD PCP - General Internal Medicine 12/16/18 09/22/19 [facility] PCP - General Internal Medicine 09/23/19 documented as of this encounter
--- OUTSIDE RECORDS SUMMARY | 2024-10-04 11:38 | XMS_ITS | Clinical Summary ---
Author Organization [facility] Address [address] [place] [address] Care Team Providers Care Cover Remover Name Role Phone Unavailable Primary Care Provider [...] sodium (COUMADIN ORAL) Take by mouth. Active fluoride, sodium, (DENTAGEL) 1.1 % gelIndications: At high risk for dental caries Place in mouth once daily [place] with Prevident 5000 once daily before bed; spit excess, do not rinse.. 56 g 3 Active Active Problems Problem Noted Date Diagnosed Date Asthma ([facility]) 09/06/2024 Hypertension 09/06/2024 COPD (chronic obstructive pu lmonary disease) ([facility]) 09/06/2024 Encounters Date Type Department Care Team Description 09/30/2024 11:00 AM EDT Office Visit [facility] [address] [place] [phone] Josh Dougherty DDS 09/06/2024 10:20 AM EDT Office Visit [facility] [address] [place] [phone] Vicki Laws 09/06/2024 9:00 AM EDT Office Visit [facility] [address] [place] [phone] Jacy Saavedra from Last 3 Months Social [...] Care Team (Late st Contact Info) Description 10/26/2024 9:00 AM EDT Office Visit [facility] [address] [place] [phone] Josh Hidalgo, DDS [address] [place], [place] [phone] Health Maintenance Due Date Last Done Comments Dental Perio Charting 1941 Tobacco Screening 1941 Imm-Zoster, Recombinant (1 of 2) 08/12/1991 Bone Density Screening 2006 Falls Prevention 2006 Advanced Care Planning 03/23/2016 03/23/2015 Imm-RSV (adult) (1 - 1-dose 75+ series) 2016 [id number] ( season) 2023 03/29/2021, 05/12/2020, 04/21/2020 Alcohol [...] 09/30/2024 11:00 AM EDT Non-restorable carious tooth CASE PRESENTATION SUBS DTL & EXTENSIVE TX [...] 12:00 AM EDT from Last 3 Months [facility]
--- OUTSIDE RECORDS SUMMARY | 2024-10-04 11:38 | XMS_ITS | Encounter Summary ---
Author Organization [facility] Address [address] [facility] [address] [place] [address] Phone Care Team Providers Care Gym Attendant Name Role Phone Ric Flor MD Primary Care Provider Syd Maria MD Unavailable +1- [phone] Encounter Details Date Type Department Care Team (Late st Contact Info) Description 06/08/2024 Procedure Pass [facility], [facility] [place], [place] [address] [facility], Floor [address] [place] [address] Social History Tobacco Use Types Packs/Day Years Used Date Smoking Tobacco: Former Smokeless Tobacco: Never Alcohol Use Standard Drinks/Week Comments Yes 5 (1 standard drink = 0.6 oz pur e alcohol) Education Answer Date Recorded Are you interested in more education? Not on kemi e 06/03/2024 Are you concerned about learning? Not on file 06/03/2024 No 06/03/2024 No 06/03/2024 Digital Access Answer Date Recorded No 06/03/2024 [...] Visit [facility], [facility] [address] [facility], [address] [place] [address] Sylvie Shirley MD, MPH [address] [place] [address] [email or web address] 12/20/2024 11:00 AM EST Office Visit [facility], [facility] [address] [facility], [address] [place] [address] Kiley Holliday MD [address] [place] [phone] [email or web address] documented as of this encounter Visit Diagnoses Not on filedocumented in this encounter Care Teams Gym Attendant Relationship Specialty Start Date End Date Ric Flor MD [address] [place] [phone] PCP - General Family Medicine 06/03/24 Syd Maria MD [address] [place] [address] Referring Physician 06/03/24 documented as of this encounter Additional Source Comments The information contained in this document represents components of the legal health record. It is not the complete legal health record.[facility]
--- OUTSIDE RECORDS SUMMARY | 2024-10-04 11:38 | XMS_ITS | Encounter Summary ---
Author Organization [facility] Address [address] [place] [address] Phone Care Team Providers Care Remote Sensing Scientist Name Role Phone Ric Flor MD Primary Care Provider Syd Maria MD Unavailable [phone]- [phone] Encounter Details Date Type Department Care Team (Late st Contact Info) Description 06/08/2024 Procedure Pass [facility] Imaging Department, [facility] [place], [place] [address] [facility], Floor [address] [place] [address] Social History Tobacco Use Types Packs/Day Years [...] Visit [facility], [facility] [address] [facility], [address] [place] [address] Sylvie Shirley MD, MPH [address] [place] [address] [email or web address] 12/20/2024 11:00 AM EST Office Visit [facility], [facility] [address] [facility], [address] [place] [address] Kiley Holliday MD [address] [place] [phone] [email or web address] documented as of this encounter Visit Diagnoses Not on filedocumented in this encounter Care Teams Remote Sensing Scientist Relationship Specialty Start Date End Date Ric Flor MD [address] [place] [address] PCP - General Family Medicine 06/03/24 Syd Maria MD [address] [place] [phone] Referring Physician 06/03/24 documented as of this encounter Additional Source Comments The information contained in this document represents components of the legal health record. It is not the complete legal health record.[facility]
--- OUTSIDE RECORDS SUMMARY | 2024-10-04 11:38 | XMS_ITS | Encounter Summary ---
Author Organization [facility] Address [address] [place] [address] Phone Care Team Providers Care Coal Picker Name Role Phone Ric Flor MD Primary Care Provider Syd Maria MD Unavailable [phone]- [phone] Encounter Details Date Type Department Care Team (Late st Contact Info) Description 06/08/2024 Procedure Pass [facility] [address] [facility] 2nd [place] [address] Social History Tobacco Use Types Packs/Day Years [...] Visit [facility], [facility] [address] [facility], 11th [place] [address] Sylvie Shirley MD, MPH [address] [place] [address] [email or web address] 12/20/2024 11:00 AM EST Office Visit [facility], [facility] [address] [facility], 5th [place] [address] Kiley Holliday MD [address] [place] [phone] [email or web address] documented as of this encounter Visit Diagnoses Not on filedocumented in this encounter Care Teams Coal Picker Relationship Specialty Start Date End Date Ric Flor MD [address] [place] [address] PCP - General Family Medicine 06/03/24 Syd Maria MD [address] [place] [address] Referring Physician 06/03/24 documented as of this encounter Additional Source Comments The information contained in this document represents components of the legal health record. It is not the complete legal health record.[facility]
--- OUTSIDE RECORDS SUMMARY | 2024-10-04 11:38 | XMS_ITS | Encounter Summary ---
Author Organization [facility] Address [address] [place] [address] Phone Care Team Providers Care Automotive Sales Representative Name Role Phone Ric Flor MD Primary Care Provider Syd Maria MD Unavailable [phone]- [phone] Encounter Details Date Type Department Care Team (Late st Contact Info) Description 06/08/2024 Procedure Pass [place] Imaging Department, [facility] [place] [address] [facility], Floor [address] [place] [address] Social History Tobacco Use Types Packs/Day Years [...] Visit [facility], [facility] [address] [facility], [address] [place] [address] Sylvie Shirley MD, MPH [address] [place] [address] [email or web address] 12/20/2024 11:00 AM EST Office Visit [facility], [facility] [address] [facility], [address] [place] [address] Kiley Holliday MD [address] [place] [phone] [email or web address] documented as of this encounter Visit Diagnoses Not on filedocumented in this encounter Care Teams Automotive Sales Representative Relationship Specialty Start Date End Date Ric Flor MD [address] [place] [phone] PCP - General Family Medicine 06/03/24 Syd Maria MD [address] [place] [address] Referring Physician 06/03/24 documented as of this encounter Additional Source Comments The information contained in this document represents components of the legal health record. It is not the complete legal health record.[facility]
== END 2024-10-04 11:32 | disposition home or self-care (01) ==
LOC: HO.ACS 10:46
PROVIDERS: PCP Family Medicine; Visit Provider Internal Medicine Medical Oncology
DX: Z79.01 Long term (current) use of anticoagulants (principal)

== ENCOUNTER → 2024-10-04 10:46 | Outpatient (BNVA) | payer MEDICARE, MEDICAID, SELFPAY | PROVIDERS: PCP Family Medicine; Visit Provider Internal Medicine Medical Oncology | DX: Z51.81 Encounter for therapeutic drug level monitoring (principal); Z79.01 Long term (current) use of anticoagulants | CPT/HCPCS: 85610; 99211 ==

== ENCOUNTER 2024-10-25 11:55 | Outpatient (REF) | payer MEDICARE, OTHER, SELFPAY ==
[2024-10-25 14:44] LABS: Alanine Aminotransferase 28 U/L (0-31); Aspartate Amino Transferase 64 U/L (5-31)
== END 2024-10-25 11:56 | disposition home or self-care (01) ==
LOC: HO.WFDLDS 11:55
PROVIDERS: Visit Provider Physician Assistant Medical
DX: R79.89 Other specified abnormal findings of blood chemistry (principal)
CPT/HCPCS: 36415; 84450; 84460

== ENCOUNTER 2024-10-27 10:21 | Outpatient (AMB) | payer MEDICARE, MEDICAID, SELFPAY ==
[2024-10-27 10:25] VITALS: BP 90/52; PULSE 125; O2SAT 97; BMI 25.3
--- NOTE | 2024-10-27 10:25 | HO.NEPHOV ---
Vital Signs 10/27/24 10:25 Height 5 ft 1 in Weight 134 lb BMI 25.3 BP 90/52 L Blood Pressure Location Lt brachial Position Sitting Pulse 125 H Pulse Source Pulse Oximeter Pulse Oximetry (%) 97 Oxygen Delivery Method Room Air Intake Visit Reasons: 1 MO FU-Conf Front Of House Manager Required: No Accompanied by: Self / Same As Patient Allergies Seasonal Allergies Allergy (Mild, Verified 10/27/24 10:27) runny nose latex Allergy (Verified 10/27/24 10:27) rash Medication List - Last Reconciled 10/27/24 by Rupesh Isaac MD albuterol sulfate 90 mcg/actuation 2 puffs inhalation Q8H PRN budesonide-formoterol 160-4.5 mcg/actuation inhalation cefpodoxime 200 mg PO BID cetirizine (Zyrtec) 10 mg PO DAILY PRN cholecalciferol (vitamin D3) 50 mcg PO DAILY citalopram 20 mg PO DAILY 90 days clonazepam 0.5 mg PO BID PRN cyanocobalamin (vitamin B-12) 1,000 mcg PO DAILY diltiazem HCl CD 120 mg PO DAILY 90 days folic acid 1 mg PO DAILY gabapentin 300 mg PO DAILY PRN omeprazole 20 mg PO DAILY tamsulosin 0.4 mg PO BEDTIME 90 days warfarin 2 mg See Protocol PO DAILY 30 days HPI Comments Details: 83-year-old woman with history of hypertension referred for hyponatremia. She has had mild asymptomatic hyponatremia for the last few years. She is on citalopram 20 mg lisinopril 10 mg and gabapentin twice a day. She admits to drinking plenty of water. Other labs were reviewed Few years ago serum sodium was at 01:25 millimoles. Current serum sodium was 128. Usually she is in the low 130s to high 120s. 09/13/24 Overall doing well. No specific complaints 10/27/24 The patient is an 84-year-old female presenting with hyponatremia and hypotension. Losartan was discontinued due to low blood pressure, yet hypotension persists with occasional lightheadedness. Blood pressure recorded at 110/70 mmHg is optimal for her. Diltiazem 120 mg for rate control is under consideration for discontinuation due to hypotension. History of pulmonary embolism with bilateral lung clots; on anticoagulation therapy. Medical History: - History of pulmonary embolism Medications: - Diltiazem 120 mg for rate control - Anticoagulation therapy for history of pulmonary embolism Diagnostic Results: - Sodium levels: Normal range [facility] Medical History (Updated 09/09/24 @ 16:43 by LUCIO Stephens) LFT elevation Swelling of both lower extremities Pulmonary emboli (~01/2022) Skin cancer History of COVID-19 Essential hypertension Chronic allergic rhinitis Hyponatremia Asthma-COPD overlap syndrome Surgical History History of nasal surgery (~05/2024) History of esophagogastroduodenoscopy (EGD) History of colonoscopy Family History Mother Breast cancer Father Prostate CA Stroke Social History Household Members: None Housing: House Housing Other:: mobile home- friend to be moving in Alcohol intake: current Alcohol intake frequency: 0-2 drinks per day Patient Tobacco Use Status: Former Tobacco user Tobacco use type: Cigarette Cigarette Packs Per Day: 1.0 Years Smoked: 10 years e-Cigarette/Vaping Use: Never Used Second Hand Smoke Exposure: No service: No Current occupational status: retired 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 Lungs entry equal no rales. Heart S1-S2 heard no gallop or rub. Abdomen soft nontender. Neuro alert awake oriented. No asterixis. Extremities no edema. Assessment & Plan Assessment & Plan (1) Hyponatremia: Code(s): E87.1 - Hypo-osmolality and hyponatremia Category: Medical Plan Clinically she appears euvolemic. She probably has euvolemic hyponatremia. The decreased free water clearance may be due to the use of SSRIs. Other contributing factors would include use of both lisinopril and gabapentin. She has a history of COPD. This could be another contributing factor for non osmotic ADH release. Recommendation Limit oral free water intake to 1 L per 24 hours. Goal is to maintain serum sodium more than 130 millimoles. Change Lisinopril to Losartan 25 mg QD 09/13/24 Sodium normalized BP is LOW Stop Losartan 12.5 mg QD Recheck BP 10/27/24 BP remains low STOP Diltiazem 120 mg ER daily Maintain SBP > 100 Na in normal range Shall follow Orders: Orders Basic Metabolic Panel 3 Months E87.1 - Hypo-osmolality and hyponatremia Medications: Discontinued diltiazem HCl CD Discontinued Reason: Doctor's Order 120 mg PO DAILY 90 days 90 caps 1RF Coding Level of Care Code Est Pt Level 4 (90769) Diagnoses Hyponatremia E87.1
--- OUTSIDE RECORDS SUMMARY | 2024-10-27 12:18 | XMS_ITS | Encounter Summary ---
Author Organization [facility] Address [address] [place] [address] Phone Care Team Providers Care First Calender Worker Name Role Phone Ric Flor MD Primary Care Provider Syd Maria MD Unavailable [phone]- [phone] Encounter Details Date Type Department Care Team (Late st Contact Info) Description 06/08/2024 Procedure Pass [place] Imaging Department, [facility] [place], [place] [address] [facility], Floor [address]1 [place] [address] Social History Tobacco Use Types Packs/Day Years [...] Visit [facility], [facility] [address] [facility], [address] [place] [address] Sylvie Shirley MD, MPH 45 [place] [address] [email or web address] 12/20/2024 11:00 AM EST Office Visit [facility], [facility] [address] [facility], [address] [place] [address] Kiley Holliday MD [address] [place] [phone] [email or web address] documented as of this encounter Visit Diagnoses Not on filedocumented in this encounter Care Teams First Calender Worker Relationship Specialty Start Date End Date Ric Flor MD [address] [place] [address] PCP - General Family Medicine 06/03/24 Syd Maria MD [address] [place] [address] Referring Physician 06/03/24 documented as of this encounter Additional Source Comments The information contained in this document represents components of the legal health record. It is not the complete legal health record.[facility]
--- OUTSIDE RECORDS SUMMARY | 2024-10-27 12:18 | XMS_ITS | Encounter Summary ---
Author Organization [facility] Address [address] [place] [address] Phone Care Team Providers Care Drill Operator Automatic Name Role Phone Rci Flor MD Primary Care Provider Syd Maria MD Unavailable [phone]- [phone] Encounter Details Date Type Department Care Team (Late st Contact Info) Description 06/08/2024 Procedure Pass [facility] [address] [facility] 2nd [place] [address] Social History Tobacco Use Types Packs/Day Years [...] Visit [facility], [facility] [address] [facility], 11th [place] [address] Sylvie Shirley MD, MPH [address] [place] [address] [email or web address] 12/20/2024 11:00 AM EST Office Visit [facility], [facility] [address] [facility], 5th [place] [address] Kiley Holliday MD [address] [place] [address] [email or web address] documented as of this encounter Visit Diagnoses Not on filedocumented in this encounter Care Teams Drill Operator Automatic Relationship Specialty Start Date End Date Ric Flor MD [address] [place] [address] PCP - General Family Medicine 06/03/24 Syd Maria MD [address] [place] [address] Referring Physician 06/03/24 documented as of this encounter Additional Source Comments The information contained in this document represents components of the legal health record. It is not the complete legal health record.[facility]
--- OUTSIDE RECORDS SUMMARY | 2024-10-27 12:18 | XMS_ITS | Patient Health Record ---
Author Organization [facility] Address [address] [place] [phone] Care Team Providers Care Gas Mask Assembler Name Role Phone Syd Dhillon MD Primary Care Provider Un available Harsha Camara Unavailable [phone] Allergies Allergen (clinical drug ingredient) Drug/Non Drug [...] Problem Status W/U Status Risk Notes Problem [id number] Encounter for screening for malignant neoplasm of colon (Z12.11) Active confirmed Problem [id number] History of adenomatous polyp of colon (Z86.010) Active confirmed Problem [id number] Gastroesophageal reflux disease, esophagitis presence not specified (K21.9) Active confirmed Plan Of Treatment Future Test Test Name Order Date COLONOSCOPY 11/04/2011 COLONOSCOPY 07/16/2016 Insurance Providers Payer Name Payer Address Payer Phone Subscriber Number Group Number Insured Name Patient Relationship to Insured Coverage Start Date Coverage End Date MEDICARE OF [place] [address] [place] [id number] [phone] [id number] KATYELVER Weeks Self - patient is the insured [employer] ATT[employer] CLAIMS [address] [place] [address] [id number] ELVER GARBER Self - patient is the insured Medical (General) History Medical History History ICD Code Colonoscopies in 2006 and in 2011--- Tubular adenomas removed in 2006 and in 11/2011; Cecal AVM's; diffuse diverticulosis; internal hemorrhoids Melanoma on RUE-surgery as below Hiatal hernia-EGD in 2006 Hypertension Asthma Denies [place],DM,CVA,renal disease Urinary retention-planning to see a urol ogist Diverticular bleed in 2009--at [facility] Depression Surgical History Surgery Date(Month/Year) Ovarian cyst Skin cancer surgery-basal ce ll x 4, and melanoma on RUE Rx'd with local excisions by Dr. Dietz
--- OUTSIDE RECORDS SUMMARY | 2024-10-27 12:18 | XMS_ITS | Clinical Summary ---
Author Organization [facility] Address [address] [place] [address] Care Team Providers Care Equal Opportunity Assistant Name Role Phone Unavailable Primary Care Provider [...] dental caries Place in mouth once daily [place] with Prevident 5000 once daily before bed; spit excess, do not rinse.. 56 g 3 Active Active Problems Problem Noted Date Diagnosed Date Asthma ([facility]) 09/06/2024 Hypertension 09/06/2024 COPD (chronic obstructive pu lmonary disease) ([facility]) 09/06/2024 Encounters Date Type Department Care Team Description 09/30/2024 11:00 AM EDT Office Visit [facility] [address] [place] [phone] Josh Dougherty DDS 09/06/2024 10:20 AM EDT Office Visit [facility] [address] [place] [phone] Vicki Laws 09/06/2024 9:00 AM EDT Office Visit [facility] [address] [place] [phone] Jacy Saavedra from Last 3 Months Social History Tobacco Use Types Packs/Day Years Used Date Smoking Tobacco: Never Assessed Comments Unknown Sex and Gender Information Value Date Recorded Sex Assigned at Not on file Legal Sex Female 8:25 AM PDT Gender Identity Not on file Sexual Orientation Not on file Plan of Treatment Health Maintenance Due Date Last Done Comments Dental Perio Charting 1940 Tobacco Screening 1940 Imm-Zoster, Recombinant (1 of 2) 08/12/1991 Bone Density Screening 2006 Falls Prevention 2006 Advanced Care Planning 03/23/2016 03/23/2015 Imm-RSV (adult) (1 - 1-dose 75+ series) 2016 Alcohol and Drug Screen 02/10/2024 Depression Annual Screen 02/10/2024 [id number] ( season) 2024 03/29/2021, 05/12/2020, 04/21/2020 Imm-Influenza (#1) 2024 10/28/2019, 1 03/23/2018, 11/13/2017, [...] 12:00 AM EDT from Last 3 Months [facility]
--- OUTSIDE RECORDS SUMMARY | 2024-10-27 12:18 | XMS_ITS | Encounter Summary ---
Author Organization [facility] Address [address] [place] [address] Phone Care Team Providers Care Machinist Mate Name Role Phone Rci Flor MD Primary Care Provider Syd Maria MD Unavailable [phone]- [phone] Encounter Details Date Type Department Care Team (Late st Contact Info) Description 06/08/2024 Procedure Pass [place] Imaging Department, [facility] [place], [place] [address] [facility], Floor [address] [place] [address] Social History Tobacco Use Types Packs/Day Years [...] Visit [facility], [facility] [address] [facility], [address] [place] [address] Sylvie Shirley MD, MPH 45 [place] [address] [email or web address] 12/20/2024 11:00 AM EST Office Visit [facility], [facility] [address] [facility], [address] [place] [address] Kiley Holliday MD [address] [place] [phone] [email or web address] documented as of this encounter Visit Diagnoses Not on filedocumented in this encounter Care Teams Machinist Mate Relationship Specialty Start Date End Date Ric Flor MD [address] [place] [address] PCP - General Family Medicine 06/03/24 Syd Maria MD [address] [place] [address] Referring Physician 06/03/24 documented as of this encounter Additional Source Comments The information contained in this document represents components of the legal health record. It is not the complete legal health record.[facility]
--- OUTSIDE RECORDS SUMMARY | 2024-10-27 12:18 | XMS_ITS | Encounter Summary ---
Author Organization [facility] Address [address] [place] [address] Phone Care Team Providers Care Acid Tank Cleaner Name Role Phone Ric Flor MD Primary Care Provider Syd Maria MD Unavailable [phone]- [phone] Encounter Details Date Type Department Care Team (Late st Contact Info) Description 07/11/2024 Procedure Pass [facility] Periop [address] [place] [address] Social History Tobacco Use Types Packs/Day Years [...] 4:51 PM EDT Abbey Mata RN * [place] Suicide Severity Rating Scale (Screener/Recent Self-Report) Question [...] for Head and Neck Oncology, [facility] [address] [facility], 11th [place] [address] Sylvie Shirley MD, MPH [address] [place] [address] [email or web address] 12/20/2024 11:00 AM EST Office Visit [facility], [facility] [address] [facility], 5th [place] [address] Kiley Holliday MD [address] [place] [address] [email or web address] documented as of this encounter Visit Diagnoses Not on filedocumented in this encounter Care Teams Acid Tank Cleaner Relationship Specialty Start Date End Date Ric Flor MD [address] [place] [address] PCP - General Family Medicine 06/03/24 Syd Maria MD [address] [place] [address] Referring Physician 06/03/24 documented as of this encounter Additional Source Comments The information contained in this document represents components of the legal health record. It is not the complete legal health record.[facility]
--- OUTSIDE RECORDS SUMMARY | 2024-10-27 12:18 | XMS_ITS | Encounter Summary ---
Author Organization [facility] Address [address] [place] [address] Phone Care Team Providers Care Chiropractic Teacher Name Role Phone Ric Flor MD Primary Care Provider Syd Maria MD Unavailable [phone]- [phone] Encounter Details Date Type Department Care Team (Late st Contact Info) Description 06/20/2024 Prep for Surgery [facility], [facility] [place] [address] [facility], 11th [place] [address] Sylvie Shirley MD, MPH [address] [place] [address] [email or web address] Squamous cell cancer of skin [...] Oncology, [facility] [place] [address] [facility], [address] [place] [address] Sylvie Shirley MD, MPH [address] [place] [address] [email or web address] 12/20/2024 11:00 AM EST Office Visit [facility], [facility] [place] [address] [facility], 5th [place] [address] Kiley Holliday MD [address] [place] [address] [email or web address] documented as of this encounter Visit Diagnoses Diagnosis 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 It is not the complete legal health record.[facility]
--- OUTSIDE RECORDS SUMMARY | 2024-10-27 12:18 | XMS_ITS ---
Author Organization [facility] Address [address] [place] [address] Phone Care Team Providers Care Sheep Shearer Name Role Phone Ric Flor MD Primary Care Provider Syd Maria MD Unavailable [phone]- [phone] Active Problems Problem Noted Date Diagnosed Date [...] FEW TIMES THE PT TOOK HERSELF TO [facility] TO BE EVALUATED. THE ONLY SX THAT [...] 07/06/2024 Overview (07/06/2024): RECORDED 10/31/2011 2:41PM BY VILOA BARRAGAN, KOMAL/ADDENDUM Difficult or painful urination 10/31/2011 [...]
--- OUTSIDE RECORDS SUMMARY | 2024-10-27 12:18 | XMS_ITS | Clinical Summary ---
Author Organization [facility] Address [address] [place] [address] Phone Care Team Providers Care Vice President Regulatory Name Role Phone Ric Flor MD Primary Care Provider Syd Maria MD Unavailable +1- [phone] Allergies Active Allergy Reactions Criticality Noted Date [...] FEW TIMES THE PT TOOK HERSELF TO [facility] TO BE EVALUATED. THE ONLY SX THAT [...] Telephone [facility], [address], [address] [place] [address] Ansley Johnston, RN ACO Care Coordination 09/02/2024 11:30 AM EDT Office Visit [facility], [address], [address] [place] [address] Sylvie Shirley MD, MPH Cancer of nasal cavities (Primary Dx) 08/23/2024 Telephone [facility], [address], [address] [place] [address] Ansley Johnston, RN ACO Care Coordination 08/10/2024 Telephone [facility], [address], [address] [place] [address] William Niño, BRILLIANDEER LOOPER 08/10/2024 Social Work Social Work Department, [address] [address] Ekaterina Curtis LCSW 08/04/2024 Orders Only [facility] [place] Department of Radiation Oncology [address] [facility], Floor [address]2 [place] [address] Yenny Guardado RN 07/27/2024 11:30 AM EDT Office Visit [facility] Oncology, [facility] [place] [address] [facility], 11th [place] [address] Narendra Owens MD, PhD Cancer of nasal cavities (Primary Dx) 07/27/2024 9:10 AM EDT Office Visit [facility] [address] [facility] 9th [place] [address] Tony Garcia MD Acquired nasal deformity (Primary Dx) from Last 3 Months Social History Tobacco [...] housing situation today? I have jennifer sing 07/11/2024 How many times have you move [...] Visit [facility], [facility] [place] [address] [place] [address], 11th [place] [address] Sylvie Conteh MD, MPH [address] [place] [address] [email or web address] 12/20/2024 11:00 AM EST Office Visit [facility], [facility] [place] [address] [facility], 5th [place] [address] Kiley Holliday MD [address] [place] [address] [email or web address] Health Maintenance Due Date Last Done Comments DEPRESSION SCREENING 1953 ZOSTER VACCINES (1 of 2) 1960 OSTEOPOROSIS SCREENING INITIAL (ONE-TIME) 2006 RSV VACCINE (1 - 1-dose 75+ series) 2016 INFLUENZA VACCINE (#1) 2024 , 01/20/2019, 11/13/2017, Additional history exists COVID-19 VACCINE ( season) 2024 03/29/2021, 05/12/2020, 04/21/2020 BLOOD PRESSURE 03/05/2025 09/02/2024 CREATININE LEVEL 07/12/2025 07/12/2024, 07/10/2024 POTASSIUM LEVEL 07/12/2025 07/12/2024, 07/10/2024 Adult Td,Tdap Booster 10/06/2032 10/06/2022, 012 PNEUMOCOCCAL VACCINES (50+ years) Completed 06/03/2023, 04/21/2014, [...] Procedure Name Priority Date/Time Associated Diagnosis Comments BASIC METABOLIC PANEL Routine 07/12/2024 4:10 AM EDT from Last 3 Months or Most Recently Relevant to Health Maintenance Results * (ABNORMAL) Basic metabolic panel (07/12/2024 4:10 AM EDT) SODIUM 134(L) 136 - 145 mmol/L [facility] POTASSIUM 4.2 3.4 - 5.1 mmol/L [facility] CHLORIDE 99 98 - 107 mmol/L [facility] CO2 26 22 - 31 mmol/L [facility] BUN 7 6 - 23 mg/dL [facility] CREATININE 0.59 0.50 - 1.20 mg/dL [facility] Comment: GLUCOSE 141(H) 70 - 100 mg/dL [facility] CALCIUM 8.1(L) 8.8 - 10.7 mg/dL [facility] EGFR 90 >59 mL/min/1.7 3m2 [facility] Comment: Estimated glomerular filtration rate calculated using the CKD-EPI refit equation. ANION GAP 9 7 - 17 mmol/L [facility] Blood 07/12/2024 4:10 AM EDT 07/12/2024 5:11 AM EDT [facility] Mandeep Shirley MD, MPH LAB BLOOD ORDERA BLES Final Result Performing Organization Address [facility]/State/[facility] Co de Phone Number [facility] [address] [place] [phone] from Last 3 Months or Most Recently Relevant to Health Maintenance Insurance MEDICARE PART A & B [employer] SUPPLEMENT Member Subscriber Plan / Payer ( fective 2006-Present) Name:Elzajohnjose l Noris Relation to Subscriber:Self Name:Noris Hou Payer ID:[id number] (NAIC) Type:Indemnity Address: [facility] [id number] [address] MED[address] PART A & B [employer] SUPPLEMENT [place] [employer] MEDICARE PART A & B [facility] MEDEX SUPPLEMENT MEDICARE PART A & B [employer] SUPPLEMENT MEDICARE PART A & B [employer] MEDEX SUPPLEMENT Member Subscriber Plan / Payer ( fective 2006-Present) Name:Noris Hou Relation to Subscriber:Self Name:Noris Hou Payer ID:[id number] (NAIC) Type:Indemnity Address: [address] MEDICARE PART A & B [employer] MEDEX SUPPLEMENT MEDICARE PART A & B [employer] MED[employer] SUPPLEMENT [address] [place], [place] [id number] MEDICARE PART A & B [employer] SUPPLEMENT [address] [place], [place] [address]B MEDICARE PART A & B [employer] MEDEX SUPPLEMENT [facility] [address] [facility] [place] Advance Directives For more information, please contact: [phone] (9AM - 5PM [facility], Thursday-Thursday) Documents on File Type Date Recorded Patient Brand Activation Manager Expl anation Healthcare Proxy 07/11/2024 * Full Code (Latest Code Status on File) Date Activated Date Inactivated Comments 07/11/2024 1:25 PM Question Answer Comments Code Status Confirmed With: Patient Care Teams Vice President Regulatory Relationship Specialty Start Date End Date Ric Flor MD [address] [place] [address] PCP - General Family Medicine 06/03/24 Syd Maria MD [address] [place] [address] Referring Physician 06/03/24 Additional Source Comments The information contained in this document represents components of the legal health record. It is not the complete legal health record.[facility]
--- OUTSIDE RECORDS SUMMARY | 2024-10-27 12:18 | XMS_ITS | Encounter Summary ---
Author Organization [facility] Address [address] [place] [address] Phone Care Team Providers Care Pattern Cleaner Name Role Phone Ric Flor MD Primary Care Provider Syd Maria MD Unavailable +1- [phone] Encounter Details Date Type Department Care Team (Late st Contact Info) Description 06/08/2024 Procedure Pass [place] Imaging Department, [facility] [place] [address] [facility], [address] [place] [address] Social History Tobacco Use Types Packs/Day Years [...] Visit Center for Head and Neck Oncology, [facility] [address] [facility], [address] [place] [address] Sylvie Shirley MD, MPH [address] [place] [address] [email or web address] 12/20/2024 11:00 AM EST Office Visit [facility] for Cutaneous Oncology, [facility] [address] [facility], [address]th [place] [address] Kiley Holliday MD [address] [place] [id number] [email or web address] documented as of this encounter Visit Diagnoses Not on filedocumented in this encounter Care Teams Pattern Cleaner Relationship Specialty Start Date End Date Ric Flor MD [address] [place] [address] PCP - General Family Medicine 06/03/24 Syd Maria MD [address] [place] [address] Referring Physician 06/03/24 documented as of this encounter Additional Source Comments The information contained in this document represents components of the legal health record. It is not the complete legal health record.[facility]
== END 2024-10-27 10:38 | disposition home or self-care (01) ==
LOC: HO.HKA 10:22
PROVIDERS: PCP Family Medicine; Visit Provider Internal Medicine Hypertension Specialist
DX: E87.1 Hypo-osmolality and hyponatremia (principal)
CPT/HCPCS: 99214

== ENCOUNTER → 2024-10-27 10:21 | Outpatient (BNVA) | payer MEDICARE, MEDICAID, SELFPAY | PROVIDERS: PCP Family Medicine; Visit Provider Internal Medicine Hypertension Specialist | DX: E87.1 Hypo-osmolality and hyponatremia (principal) | CPT/HCPCS: 99212 ==

== ENCOUNTER 2024-11-17 10:06 | Outpatient (AMB) | payer MEDICARE, MEDICAID, SELFPAY ==
[2024-11-17 10:39] LABS: Prothrombin Time Whole Bld POC 25.8 sec (11.1-13.5); ~PT, ~INR - Anti Coag Clinic 2.2 (0.9-1.1)
--- NOTE | 2024-11-17 10:49 | MHC.OFFVISCO ---
Intake Intake Visit Reasons: Anticoagulation Allergies Seasonal Allergies Allergy (Mild, Verified 11/17/24 10:34) runny nose latex Allergy (Verified 11/17/24 10:34) rash Medication List - Last Reconciled 11/17/24 by Anabella Otoole RN albuterol sulfate 90 mcg/actuation 2 puffs inhalation Q8H PRN budesonide-formoterol 160-4.5 mcg/actuation inhalation cetirizine (Zyrtec) 10 mg PO DAILY PRN cholecalciferol (vitamin D3) 50 mcg PO DAILY citalopram 20 mg PO DAILY 90 days clonazepam 0.5 mg PO BID PRN cyanocobalamin (vitamin B-12) 1,000 mcg PO DAILY folic acid 1 mg PO DAILY gabapentin 300 mg PO DAILY PRN omeprazole 20 mg PO DAILY tamsulosin 0.4 mg PO BEDTIME 90 days warfarin 2 mg See Protocol PO DAILY 30 days Nursing Note INR: 2.2 in therapeutic range Medications and supplements reviewed OFF DILTIAZEM X 2-3 WEEKS MAY LOWER INR, APPETITE DECREASED MAY RAISE INR, RADIATION X 3 MORE DAYS- EYES AND EARS INFLAMMED- MAY AFFECT INT PT STATES SHE IS NOT SURE SHE CAN FINISH RADIATION BECAUSE HER EYES ARE SO IRRITATED - SHE IS ENC TO DISCUSS WITH MD, APPLY WARM COMPRESSES TO REMOVE CRUST ON EYELASHES -SHE STATES SHE IS. Denies any signs and symptoms of bleeding or bruising or clotting. Bleeding, bruising, clotting discussed Nutritional guidance given Dose: KEEP DOSE THE SAME 2MG X 1 DAY/ 1MG X 6 DAYS F/U INR: 2 WEEK Patient verbalizes understanding of instructions given Anti-Coag Initial Assessment Social Hx Patient Tobacco Use Status: Former Tobacco user Tobacco use type: Cigarette Smoking packs per day: 1.0 alcohol intake: current Alcohol intake frequency: 0-2 drinks per day Cardiovascular Hx: HTN and Other Lung Disease HX: Asthma, COPD and DVT/PE Endocrine Hx: Diabetes Musculoskeletal Hx: Arthritis GI Hx: Bleeding (GI, rectal) and Diverticulosis Hx: Bladder Disorders and Other Cancer HX: Yes (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 Illness/Depression: Yes (anxiety ) Coding Level of Care Code Est Patient Level 1 Diagnoses Current use of anticoagulant therapy Z79.01 Assessment & Plan Assessment & Plan (1) Current use of anticoagulant therapy: Code(s): Z79.01 - buttermaker (current) use of anticoagulants Category: Medical
== END 2024-11-17 10:55 | disposition home or self-care (01) ==
LOC: HO.ACS 10:06
PROVIDERS: PCP Family Medicine; Visit Provider Internal Medicine Medical Oncology
DX: Z79.01 Long term (current) use of anticoagulants (principal)

== ENCOUNTER → 2024-11-17 10:06 | Outpatient (BNVA) | payer MEDICARE, OTHER, SELFPAY | PROVIDERS: PCP Family Medicine; Visit Provider Internal Medicine Medical Oncology | DX: Z51.81 Encounter for therapeutic drug level monitoring (principal); Z79.01 Long term (current) use of anticoagulants | CPT/HCPCS: 85610; 99211 ==

== ENCOUNTER 2024-12-01 10:32 | Outpatient (AMB) | payer MEDICARE, OTHER, SELFPAY ==
[2024-12-01 10:45] LABS: Prothrombin Time Whole Bld POC 35.6 sec (11.1-13.5); ~PT, ~INR - Anti Coag Clinic 3.0 (0.9-1.1)
--- NOTE | 2024-12-01 11:48 | MHC.OFFVISCO ---
Intake Intake Visit Reasons: Anticoagulation Allergies Seasonal Allergies Allergy (Mild, Verified 12/01/24 11:48) runny nose latex Allergy (Verified 12/01/24 11:48) rash Medication List - Last Reconciled 12/01/24 by Anabella Otoole RN albuterol sulfate 90 mcg/actuation 2 puffs inhalation Q8H PRN budesonide-formoterol 160-4.5 mcg/actuation inhalation cetirizine (Zyrtec) 10 mg PO DAILY PRN cholecalciferol (vitamin D3) 50 mcg PO DAILY citalopram 20 mg PO DAILY 90 days clonazepam 0.5 mg PO BID PRN cyanocobalamin (vitamin B-12) 1,000 mcg PO DAILY folic acid 1 mg PO DAILY gabapentin 300 mg PO DAILY PRN omeprazole 20 mg PO DAILY tamsulosin 0.4 mg PO BEDTIME 90 days warfarin 2 mg See Protocol PO DAILY 30 days Nursing Note pt came to [facility] via wheelchair with niece and brother visiting from out of state, 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 As a result of the radiation pt is having difficulty hearing and seeing, and eating, she has low energy right now. Niece now POA and helping with her medical and home care. Pt has a f/u appt with [facility] 12/20/24 and will be consulting them regarding on going anticoagulaion necessity or switching to DOAC. Pt unable to drive at this time. Dr Flor office and lab draw station close to her home. Pt niece can bring her to the lab draw station closer - pt and niece are aware that it will be a lab draw venipuncture not a POC. This process may just be temporary until patient feels better, or goes on DOAC or assisted living Her appetite is poor right now- meals on wheels arrange, pt will start ensure or boost which ever lower in sodium. INR: 3.0 in therapeutic range Medications and supplements reviewed No changes in health, diet, medications, or supplements, Denies any signs and symptoms of bleeding or bruising or clotting. Bleeding, bruising, clotting discussed Nutritional guidance given - start with 1 ensure or boost / day Dose: keep same for now due to decreased appetite and starting on ensure of boost: 2mg / 1mg x 6 days F/U INR: weekly for now due to diet and health changes and as she recovers from radiation Patient and Niece verbalizes understanding of instructions given Order for lab draw entered for next week Anti-Coag Initial Assessment Social Hx Patient Tobacco Use Status: Former Tobacco user Tobacco use type: Cigarette Smoking packs per day: 1.0 alcohol intake: current Alcohol intake frequency: 0-2 drinks per day Cardiovascular Hx: HTN and Other Lung Disease HX: Asthma, COPD and DVT/PE Endocrine Hx: Diabetes Musculoskeletal Hx: Arthritis GI Hx: Bleeding (GI, rectal) and Diverticulosis Hx: Bladder Disorders and Other Cancer HX: Yes (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 Illness/Depression: Yes (anxiety ) Coding Level of Care Code Est Patient Level 1 Diagnoses Current use of anticoagulant therapy Z79.01 Time Spent (min) 30 Comment discuss with family pt status and plan of care, + clinic visit Assessment & Plan Assessment & Plan (1) Current use of anticoagulant therapy: Code(s): Z79.01 - [facility] (current) use of anticoagulants Category: Medical Orders: Orders Prothrombin Time INR 12/08/24 Z79.01 - [facility] (current) use of anticoagulants
--- OUTSIDE RECORDS SUMMARY | 2024-12-01 12:43 | XMS_ITS | Data Portability ---
Author Organization [facility], Main Office Address [address] [place] [address] Care Team Providers Care House Mover Supervisor Name Role Phone ABDIEL ORTEGA Engineering Research Manager GRACIELA MILLER Urologist ABDIEL LOZANO Outside Repairer Special [phone] URBAN PRIDE Germination Testing Manager HUMBERTO SINGH Cardboard Cutter RICARDO HUGHES Chiropractor [facility] Physical Therapist DENIS MARCOS Primary Care Provider Assessment No assessment recorded. Plan of Treatment Reminders Order Date Submit Date Provider Last Modified By Organization Details Last Modified Time Details Appointments None recorded. Lab HbA1c (hemoglob in A1c), blood 2018 019 [facility] (Centralized Electronic Ordering - All Locations), Patient Can Go To The Location Of Their Choice, [address] 0 09:38:13 BMP, serum or plasma 2018 019 [facility] (Centralized Electronic Ordering - All Locations), Patient Can Go To The Location Of Their Choice, [address] 0 09:38:13 lipid panel, serum 2018 019 [facility] (Centralized Electronic Ordering - All Locations), Patient Can Go To The Location Of Their Choice, [address] 0 09:38:13 magnesium , serum or plasma [...] 15:24:52 CMP, serum or plasma 2017 018 [email or web address] (Centralized Electronic Ordering - All Locations), Patient Can Go To The Location Of Their Choice, 11:56:02 Referral spine center referral - patient in 2017, MRI showed crowding L2 nerve root on the left, having worsenign sx of sciatic pain, low back pain, leg pains bilateral ly. 2018 019 isaías [facility], [address] [place] [address], [place], [address], 9 17:23:40 physical therapist referral - At risk for falling 2017 018 [email or web address] [facility], [address] [place], [address], 8 16:26:43 urologist referral - pt has not seen urology in 2 years or more and wants to have consultat ion w/ urologist rather than DIRECTOR OF ALUMNI RELATIONS 2017 018 scott Crane MD, [address], [place], [address], 8 13:35:13 Procedures None recorded. Surgeries None recorded. Imaging XR, lumbar spine - chronic low back pain, worsening s/p fall in february [id number] 019 [facility], [address] [place] [address], [address], 9 10:29:46 XR, sacrum + coccyx - s/p fall in february, hx low back arthritis . pain worsening 2018 019 [facility], [address] [place] [address], [address], 9 10:29:44 Medication Orders clorazepa te dipotassi um 3.75 mg tablet 2017 018 [id number], [address] [place], [address], 8 11:18:58 tamsulosi n 0.4 mg capsule 2017 018 [id number], [address] [place], [address], 8 13:01:14 clorazepa te dipotassi um 3.75 mg tablet 2017 018 [facility]FACE [id number], [address] [place], [address], 8 12:05:21 Patient TargetsNo targets recorded. Patient Instructions Encounter Date Encounter Id Patient Instructions Last Modified By Organization Details Last Modified Time 11/13/2017 [id number] anxiety disorder: care instructions [email or web address] Not available 11/13/2017 11:18:44 call or return for worsening or concerns. [email or web address] Not available 11/13/2017 11:13:19 I have reviewed the note and agree with the assessment and plan of care. dolores Not available 11/13/2017 12:41:01 12/18/2017 [id number] preventing falls: care instructions [email or web address] Not available [...] medication. [email or web address] Not available 12/18/2017 13:20:44 06/11/2018 [id number] low back pain: exercises [email or web address] Not available 06/11/2018 13:24:20 call or return for worsening or concerns. [email or web address] Not available 06/11/2018 13:22:08 01/20/2019 [id number] preventing falls: care instructions [email or web address] Not available 01/20/2019 10:20:59 call or return for woraening or concerns. [email or web address] Not available 01/20/2019 10:20:56 Reviewed the risks and benefits of fci opiate use, OUD discussed with the patient. Reviewed the risks and benefits of other non-opioid pain therapies. Reviewed caution with driving, fall risk, treatment for constipation. Patient verbalizes understanding of risk and benefits, and of OUD. [email or web address] Not available 01/20/2019 09:46:37 Reason for Referral Urologist Referral for Incom plete emptying of urinary bladder pt has not seen urology in 2 years or more and wants to have consultation w/ urologist rather than DIRECTOR OF ALUMNI RELATIONS Referring Physician: Ricardo Dhillon, Internal Medicine, Encounter [...] ce of an acute proces s. WSN: [id number] Dictat ed By: Delonte Barrios MD Dictat ed Date/T erlinda: 10:26 a Review ed By: Delonte Barrios MD Signed By: Delonte Barrios MD Signed Date/T erlinda: 10:26 am Transc ribed By: PASTORA Transc ribed Date/T erlinda: 10:24 am Patien t Class: Outpat ient [facility] (Outpt Imaging) [address] , [place], [address], 06/15/2018 15:07:23 06/15/19 19 06/14/2018 XR, lumba [...] ce of an acute proces s. WSN: [id number] Dictat ed By: Delonte Barrios MD Dictat ed Date/T erlinda: 10:26 a Review ed By: Delonte Barrios MD Signed By: Delonte Barrios MD Signed Date/T erlinda: 10:26 am Transc ribed By: PASTORA Transc ribed Date/T erlinda: 10:24 am Patien t Class: Outpat ient [facility] (Outpt Imaging) [address] [place], [address], 06/15/2018 15:07:23 Result Notes Documentation Provider Name [...] no evidence of an acute process. WSN: [id number] Dictated By: Rocael Barrios MD Dictated Date/Time: 06/14/18 10:26 a Reviewed By: Rocael Barrios MD Signed By: Rocael Barrios MD Signed Date/Time: 06/14/18 10:26 am Transcribed By: PASTORA Transcribed Date/Time: 06/14/18 10:24 am Patient Class: Outpatient NICOLÁS Fay [address], [place], [address], [facility] [place]2018 12:48:36 Xr, Lumbar Spine : Lumbar [...] no evidence of an acute process. WSN: [id number] Dictated By: Rocael Barrios MD Dictated Date/Time: 06/14/18 10:26 a Reviewed By: Rocael Barrios MD Signed By: Rocael Barrios MD Signed Date/Time: 06/14/18 10:26 am Transcribed By: PASTORA Transcribed Date/Time: 06/14/18 10:24 am [facility] [address], [place], [address], [facility] 06/15/2018 12:48:36 Problems Name Problem SNOMED Code Status Onset Date Resolution Date Notes Provider Name and Address Organization Details Recorded Time Impacted cerumen 88790170 Completed 09/17/2016 Becky rosario [facility] 7 17:00:46 Hyponatr emia 71194625 Completed 09/04/2017 Dilshad Hall MD [address], [place], [address], [facility] 8 06:00:03 Dermatit is Completed 09/17/2016 Becky rosario [facility] 7 17:00:48 Dysuria 98829505 Completed 09/17/2016 Becky rosario [facility] 7 17:01:13 Insomnia 965453901 Active [place] Aziza rosario [facility] 6 11:38:21 Advance directiv e discusse d with patient 570157195 Completed 09/17/2016 Becky rosario [facility] 7 17:01:07 Polyp of colon 60548176 Active [place] Aziza [facility] 6 11:38:21 Active or passive immuniza tion Completed 200908/23/2013 RECORDED 03/01/19 10 9:56AM BY PILLO Masters NP, OFFICE VISIT Michelle Aziza [facility] 6 11:38:22 Active or passive immuniza tion Completed 200909/15/2013 RECORDED 03/01/19 10 9:56AM BY PILLO Masters NP, OFFICE VISIT Michelle Aziza [facility] 6 11:38:22 Active or passive immuniza tion Completed 200909/16/2013 RECORDED 03/01/19 10 9:56AM BY PILLO Masters NP, OFFICE VISIT [place] Aziza [facility] 6 11:38:22 Anemia due to chronic blood loss 058450821 Completed 201108/23/2013 RECORDED 10/31/19 12 2:42PM BY NICKY WOODS ON/ADDEN DUM [facility] 6 11:38:21 Screenin g for malignan t neoplasm of breast Completed 201108/23/2013 RECORDED 10/31/19 12 2:41PM BY NICKY WOODS ON/ADDEN DUM Becky Bigroshni [facility] 7 13:35:13 Chest pain 83760674 Completed 201108/23/2013 RECORDED 10/31/19 12 2:41PM BY NICKY WOODS ON/ADDEN DUM [facility] 6 11:38:22 Divertic ular disease of colon 907236332 Completed 201108/23/2013 STORY: PT WAS SEEN IN OUR OFFICE 11/30/09 FOR RECTAL BLEEDING AND WAS REFERRED TO GI FOR AN EVALUATI ON. THAT EVENING EVERY TIME THE PT ATE SOMETHIN G SHE WOULD BE GOING TO THE BATHROOM TO HAVE A BM THAT WAS FILLED WITH BLOOD. AFTER A FEW TIMES THE PT TOOK HERSELF TO [facility] TO BE EVALUATE D. THE ONLY SX THAT THE PT FELT WAS BLOATING AND CRAMPING EVERYTIM E SHE ATE. PT HAD TO UNDERGO A COLONOSC OPY WITCH SHOWED THAT THE PT HAD BLEEDING COMING FROM THE ASCENDIN G,DESCEN DING, AND TRANSVER SE COLON. PT WAS LATER TRANSFER RED TO [facility] TO BE WATCHED CLOSELY. PT WAS THEN PLACED ON A LIQUID DIET UNTIL THE TIME WHERE SHE COULD TOLERATE SOLID FOOD WITH OUT PASSING A BM THAT WAS BLOODY. MEDICATI ON HAS BEEN RECONSIL ED WITH THE PT AND SHE WILL F/U WITH MGD 12/21/09 .; RECORDED 10/31/19 12 2:41PM BY NICKY WOODS ON/ADDEN DUM Michelle rosario [facility] 6 11:38:21 Hemorrha ge of colon 86983565 Completed 201108/23/2013 STORY: STABLE/ STILL ANEMIC; RECORDED 10/31/19 12 2:41PM BY NICKY WOODS ON/ADDEN DUM Michelle rosario [facility] 6 11:38:22 Divertic ulitis of colon 076314203 Active 2011 Becky rosario [facility] 7 17:00:37 Dysuria 68541732 Completed 201108/23/2013 IMPRESSI ON: 3+ LEUKOCYT ES ON UA TODAY, COMPLETE D BACTRIM 2 DAYS AGO, START CIPRO AND SEND CULTURE; RECORDED 10/31/19 12 2:41PM BY NICKY WOODS ON/ADDEN DUM Becky rosario [facility] 7 17:01:13 Essentia l hyperten julisa 29757000 Completed 201108/23/2013 RECORDED 10/31/19 12 2:41PM BY NICKY WOODS ON/ADDEN DUM Becky rosario [facility] 7 17:01:17 Hypo-osm olality and or hyponatr emia 991681585 Completed 201108/23/2013 RECORDED 10/31/19 12 2:41PM BY VIOLA SCHULTZK I, ANNOTATI ON/ADDEN DUM Michelle Degutis null, [facility] 6 11:38:21 Examinat ion for suspecte d mental disorder Completed 201108/23/2013 RECORDED 10/31/19 12 2:41PM BY NICKY WOODS ON/ADDEN DUM Michelle Degutis null, [facility] 6 11:38:22 Tachycar wesley [id number] Completed 201108/23/2013 RECORDED 10/31/19 12 2:42PM BY NICKY WOODS ON/ADDEN DUM Michelle Degutis null, [facility] 6 11:38:22 Vaginiti s and vulvovag initis Completed 201108/23/2013 IMPRESSI ON: VAGINAL ITCHING AFTER COMPLETI NG ANTIBIOT ICS; RECORDED 10/31/19 12 2:42PM BY NICKY WOODS ON/ADDEN DUM Michelle Degutis null, [facility] 6 11:38:22 Anemia due to chronic blood loss 995626264 Completed 201109/15/2013 RECORDED 10/31/19 12 2:42PM BY NICKY WOODS ON/ADDEN DUM Michelle Degutis null, [facility] 6 11:38:21 Chest pain 60763968 Completed 201109/15/2013 RECORDED 10/31/19 12 2:41PM BY NICKY WOODS ON/ADDEN DUM Michelle Degutis null, [facility] 6 11:38:22 Divertic ular disease of colon 002066645 Completed 201109/15/2013 STORY: PT WAS SEEN IN OUR OFFICE 11/30/09 FOR RECTAL BLEEDING AND WAS REFERRED TO GI FOR AN EVALUATI ON. THAT EVENING EVERY TIME THE PT ATE SOMETHIN G SHE WOULD BE GOING TO THE BATHROOM TO HAVE A BM THAT WAS FILLED WITH BLOOD. AFTER A FEW TIMES THE PT TOOK HERSELF TO [facility] TO BE EVALUATE D. THE ONLY SX THAT THE PT FELT WAS BLOATING AND CRAMPING EVERYTIM E SHE ATE. PT HAD TO UNDERGO A COLONOSC OPY WITCH SHOWED THAT THE PT HAD BLEEDING COMING FROM THE ASCENDIN G,DESCEN DING, AND TRANSVER SE COLON. PT WAS LATER TRANSFER RED TO [facility] TO BE WATCHED CLOSELY. PT WAS THEN PLACED ON A LIQUID DIET UNTIL THE TIME WHERE SHE COULD TOLERATE SOLID FOOD WITH OUT PASSING A BM THAT WAS BLOODY. MEDICATI ON HAS BEEN RECONSIL ED WITH THE PT AND SHE WILL F/U WITH MGD 12/21/09 .; RECORDED 10/31/19 12 2:41PM BY NICKY WOODS ON/ADDEN DUM Michelle Degutedouard rosario [facility] 6 11:38:21 Hemorrha ge of colon 14458360 Completed 201109/15/2013 STORY: STABLE/ STILL ANEMIC; RECORDED 10/31/19 12 2:41PM BY NICKY WOODS ON/ADDEN DUM Michelle Degutedouard rosario [facility] 6 11:38:22 Dysuria 62149650 Completed 201109/15/2013 IMPRESSI ON: 3+ LEUKOCYT ES ON UA TODAY, COMPLETE D BACTRIM 2 DAYS AGO, START CIPRO AND SEND CULTURE; RECORDED 10/31/19 12 2:41PM BY NICKY WOODS ON/ADDEN DUM Becky rosario [facility] 7 17:01:13 Hypo-osm olality and or hyponatr emia 125435842 Completed 201109/15/2013 RECORDED 10/31/19 12 2:41PM BY NICKY WOODS ON/ADDEN DUM Michelle Degutedouard rosario [facility] 6 11:38:21 Examinat ion for suspecte d mental disorder Completed 201109/15/2013 RECORDED 10/31/19 12 2:41PM BY NICKY WOODS ON/ADDEN DUM Michelle Degutedouard rosario [facility] 6 11:38:22 Tachycar wesley [id number] Completed 201109/15/2013 RECORDED 10/31/19 12 2:42PM BY NICKY WOODS ON/ADDEN DUM Michelle Degutis null, [facility] 6 11:38:22 Vaginiti s and vulvovag initis Completed 201109/15/2013 IMPRESSI ON: VAGINAL ITCHING AFTER COMPLETI NG ANTIBIOT ICS; RECORDED 10/31/19 12 2:42PM BY NICKY WOODS ON/ADDEN DUM Michelle Degutis null, [facility] 6 11:38:22 Anemia due to chronic blood loss 303495173 Completed 201109/16/2013 RECORDED 10/31/19 12 2:42PM BY NICKY WOODS ON/ADDEN DUM Michelle Degutis null, [facility] 6 11:38:21 Chest pain 79607590 Completed 201109/16/2013 RECORDED 10/31/19 12 2:41PM BY NICKY WOODS ON/ADDEN DUM Michelle Degutis null, [facility] 6 11:38:22 Divertic ular disease of colon 874125826 Completed 201109/16/2013 STORY: PT WAS SEEN IN OUR OFFICE 11/30/09 FOR RECTAL BLEEDING AND WAS REFERRED TO GI FOR AN EVALUATI ON. THAT EVENING EVERY TIME THE PT ATE SOMETHIN G SHE WOULD BE GOING TO THE BATHROOM TO HAVE A BM THAT WAS FILLED WITH BLOOD. AFTER A FEW TIMES THE PT TOOK HERSELF TO [facility] TO BE EVALUATE D. THE ONLY SX THAT THE PT FELT WAS BLOATING AND CRAMPING EVERYTIM E SHE ATE. PT HAD TO UNDERGO A COLONOSC OPY WITCH SHOWED THAT THE PT HAD BLEEDING COMING FROM THE ASCENDIN G,DESCEN DING, AND TRANSVER SE COLON. PT WAS LATER TRANSFER RED TO [facility] TO BE WATCHED CLOSELY. PT WAS THEN PLACED ON A LIQUID DIET UNTIL THE TIME WHERE SHE COULD TOLERATE SOLID FOOD WITH OUT PASSING A BM THAT WAS BLOODY. MEDICATI ON HAS BEEN RECONSIL ED WITH THE PT AND SHE WILL F/U WITH MGD 12/21/09 .; RECORDED 10/31/19 12 2:41PM BY NICKY WOODS ON/ADDEN DUM Michelle Ervin null, [facility] 6 11:38:21 Hemorrha ge of colon 51015003 Completed 201109/16/2013 STORY: STABLE/ STILL ANEMIC; RECORDED 10/31/19 12 2:41PM BY NICKY WOODS ON/ADDEN DUM Michelle Antonioutedouard null, [facility] 6 11:38:22 Dysuria 38009499 Completed 201109/16/2013 IMPRESSI ON: 3+ LEUKOCYT ES ON UA TODAY, COMPLETE D BACTRIM 2 DAYS AGO, START CIPRO AND SEND CULTURE; RECORDED 10/31/19 12 2:41PM BY NICKY WOODS ON/ADDEN DUM [facility] 7 17:01:13 Hypo-osm olality and or hyponatr emia 646971762 Completed 201109/16/2013 RECORDED 10/31/19 12 2:41PM BY NICKY WOODS ON/ADDEN DUM Michelle Ervin null, [facility] 6 11:38:21 Examinat ion for suspecte d mental disorder Completed 201109/16/2013 RECORDED 10/31/19 12 2:41PM BY NICKY WOODS ON/ADDEN DUM Michelle Antonioutis null, [facility] 6 11:38:22 Tachycar wesley [id number] Completed 201109/16/2013 RECORDED 10/31/19 12 2:42PM BY NICKY WOODS ON/ADDEN DUM Michelle Antonioutis null, [facility] 6 11:38:22 Vaginiti s and vulvovag initis Completed 201109/16/2013 IMPRESSI ON: VAGINAL ITCHING AFTER COMPLETI NG ANTIBIOT ICS; RECORDED 10/31/19 12 2:42PM BY JEREL WOODSATI ON/ADDEN DUM Michelle Degutis null, [facility] 6 11:38:22 Screenin g for malignan t neoplasm of colon Completed 201208/23/2013 RECORDED 04/30/19 13 2:37PM BY TEA HANDY MA, NICKY ON/ADDEN DUM Michelle Degutis null, [facility] 6 11:38:22 Influenz a vaccine needed [id number] 06 Completed 201208/23/2013 RECORDED 04/30/19 13 2:37PM BY TEA HANDY MA, NICKY ON/ADDEN DUM Michelle Degutis null, [facility] 6 11:38:22 Follow-u p encounte r Completed 201208/23/2013 RECORDED 04/30/19 13 2:37PM BY TEA HANDY MA, NICKY ON/ADDEN DUM Michelle Degutis null, [facility] 6 11:38:22 Adult health examinat ion Completed 201208/23/2013 RECORDED 04/30/19 13 2:37PM BY TEA HANDY MA, NICKY ON/ADDEN DUM Becky Norton [place] null, [facility] 7 17:01:05 Renewal of prescrip tion Completed 201208/23/2013 RECORDED 04/30/19 13 2:37PM BY TEA HANDY MA, NICKY ON/ADDEN DUM [place] Degutis null, [facility] 6 11:38:22 Retentio n of urine 201282952 Completed 201208/23/2013 RECORDED 04/30/19 13 2:37PM BY TEA HANDY MA, NICKY ON/ADDEN DUM Michelle Degutis null, [facility] 6 11:38:22 Screenin g for malignan t neoplasm of colon Completed 201209/15/2013 RECORDED 04/30/19 13 2:37PM BY TEA HANDY MA, NICKY ON/ADDEN DUM Michelle Degutis null, [facility] 6 11:38:22 Influenz a vaccine needed [id number] 06 Completed 201209/15/2013 RECORDED 04/30/19 13 2:37PM BY TEA HANDY MA, NICKY ON/ADDEN DUM [place] Degutis null, [facility] 6 11:38:22 Follow-u p encounte r Completed 201209/15/2013 RECORDED 04/30/19 13 2:37PM BY TEA HANDY MA, NICKY ON/ADDEN DUM Michelle Degutis null, [facility] 6 11:38:22 Renewal of prescrip tion Completed 201209/15/2013 RECORDED 04/30/19 13 2:37PM BY TEA HANDY MA, NICKY ON/ADDEN [facility] Degutis null, [facility] 6 11:38:22 Retentio n of urine 703292428 Completed 201209/15/2013 RECORDED 04/30/19 13 2:37PM BY TEA HANDY MA, NICKY ON/[facility] Degutis null, [facility] 6 11:38:22 Screenin g for malignan t neoplasm of colon Completed 201209/16/2013 RECORDED 04/30/19 13 2:37PM BY TEA HANDY MA, NICKY ON/ADDEN DUM [place] Degutis null, [facility] 6 11:38:22 Influenz a vaccine needed [id number] 06 Completed 201209/16/2013 RECORDED 04/30/19 13 2:37PM BY TEA HANDY MA, NICKY ON/ADDEN DUM Michelle Degutis null, [facility] 6 11:38:22 Follow-u p encounte r Completed 201209/16/2013 RECORDED 04/30/19 13 2:37PM BY TEA HANDY MA, ANNOTATI ON/ADDEN DUM Michelle Degutis abraham, [facility] 6 11:38:22 Renewal of prescrip tion Completed 201209/16/2013 RECORDED 04/30/19 13 2:37PM BY TEA HANDY MA, ANNOTATI ON/ADDEN DUM Michelle Degutis abraham, [facility] 6 11:38:22 Retentio n of urine 884322039 Completed 201209/16/2013 RECORDED 04/30/19 13 2:37PM BY TEA HANDY MA, ANNOTATI ON/ADDEN DUM Michelle Degutis abraham, [facility] 6 11:38:22 Anxiety state 280222333 Active 2012 Becky rosario, [facility] 7 17:00:55 Tobacco user [id number] Completed 201208/23/2013 RECORDED 01/28/20 13 1:17PM BY ALEXANDRE AGUILRA MA, ANNOTATI ON/ADDEN DUM Becky rosario, [facility] 7 17:00:35 History of clinical finding in subject 839374027 Completed 201209/17/2016 RECORDED 01/28/20 13 1:17PM BY ALEXANDRE AGUILAR MA, ANNOTATI ON/ADDEN DUM Becky rosario, [facility] 7 17:01:11 Asthma 798093138 Active 2012 Becky rosario, [facility] 7 17:00:52 Gastroes ophageal reflux disease 882072662 Active 2012 Becky rosario, [facility] 7 17:00:59 [facility]ia l hyperten julisa 55461396 Active 2012 Becky rosario [facility] 7 17:01:17 External hemorrho ids 69368433 Active 2012 Becky Bigby [place] null, [facility] 7 17:01:03 Tobacco user 551242050 Active 2012 Becky rosario, [facility] 7 17:00:35 Adult health examinat ion Completed 201209/17/2016 STORY: COLONOSC OPY DUE SS/TUBUL AR ADENOMA; RECORDED 01/28/20 13 1:58PM BY RICARDO COLE MD, OFFICE VISIT Becky rosario, [facility] 7 17:01:05 Hearing loss 30152118 Active 2012 Becky rosario, [facility] 7 17:00:40 Impacted cerumen 92224120 Completed 201208/23/2013 RECORDED 01/28/20 13 1:17PM BY ALEXANDRE AGUILAR MA, ANNOTATI ON/ADDEN DUM Becky rosario [facility] 7 17:00:46 Irritabl e bowel syndrome 12539128 Active 2012 Becky rosario, [facility] 7 17:00:31 Pre-surg girish evaluati on Completed 201208/23/2013 IMPRESSI ON: PT IS MEDICALL Y ABLE TO UNDERGO SURGERY, NO ACTIVE ISSUES, IS ABLE TO LAY FLAT AND STILL, EKG NL AND WILL GET LABS; RECORDED 01/28/20 13 1:17PM BY ALEXANDRE AGUILAR MA, ANNOTATI ON/ADDEN DUM Michelle rosario [facility] 6 11:38:22 Tobacco user [id number] Completed 201209/15/2013 RECORDED 01/28/20 13 1:17PM BY ALEXANDRE AGUILAR MA, ANNOTATI ON/ADDEN DUM Becky rosario, [facility] 7 17:00:35 Impacted cerumen 10011275 Completed 201209/15/2013 RECORDED 01/28/20 13 1:17PM BY ALEXANDRE AGUILAR MA, ANNOTATI ON/ADDEN DUM Becky rosario, [facility] 7 17:00:46 Pre-surg girish evaluati on Completed 201209/15/2013 IMPRESSI ON: PT IS MEDICALL Y ABLE TO UNDERGO SURGERY, NO ACTIVE ISSUES, IS ABLE TO LAY FLAT AND STILL, EKG NL AND WILL GET LABS; RECORDED 01/28/20 13 1:17PM BY ALEXANDRE AGUILAR MA, ANNOTATI ON/ADDEN DUM Michelle Aziza rosario, [facility] 6 11:38:22 Tobacco user [id number] Completed 201209/16/2013 RECORDED 01/28/20 13 1:17PM BY ALEXANDRE AGUILAR MA, ANNOTATI ON/ADDEN DUM Becky rosario, [facility] 7 17:00:35 Impacted cerumen 89109097 Completed 201209/16/2013 RECORDED 01/28/20 13 1:17PM BY ALEXANDRE AGUILAR MA, ANNOTATI ON/ADDEN DUM Becky rosario, [facility] 7 17:00:46 Pre-surg girish evaluati on Completed 201209/16/2013 IMPRESSI ON: PT IS MEDICALL Y ABLE TO UNDERGO SURGERY, NO ACTIVE ISSUES, IS ABLE TO LAY FLAT AND STILL, EKG NL AND WILL GET LABS; RECORDED 01/28/20 13 1:17PM BY ALEXANDRE AGUILAR MA, ANNOTATI ON/[facility] DUM Michelle Degutedouard rosario [facility] 6 11:38:22 History of Malignan t melanoma 139658163 Active 2013 Becky rosario [facility] 7 17:00:45 Malignan t melanoma of skin 40421028 Active 2013 Becky rosario [facility] 7 17:01:28 Urinary tract infectio us disease 09491605 Active 2013 Becky Bigby [place] null, [facility] 7 17:01:20 Screenin g for malignan t neoplasm of breast Completed 201410/31/2016 Dr. Susy Ortega, negative Beckybridger Norton ELLIOTT rosario [facility] 7 13:35:13 Chronic low back pain 656866224 Active 2018 Rebeca Jeffery abraham [facility] 9 14:22:51 Problem Notes None recorded. Procedures Surgical History Date Name Laterality Status Provider Name and Address Organization Details Recorded Time 01/21/20 19 Mini-Cog Test completed Leila Julien MA [facility] 01/20/2019 09:52:44 12/30/19 18 Most Recent Mammogram completed Leila Julien MA [facility] 01/20/2019 09:47:42 12/19/19 18 Mini-Cog Test completed Naheed Veliz [facility] 12/18/2017 13:13:25 12/02/19 17 Fall Risk Assessment completed Becky Norton MA [facility] 12/01/2016 13:22:35 12/02/19 17 Mini-Cog Test completed Becky Norton MA [facility] 12/01/2016 13:23:31 11/29/19 17 Mammogram both breasts completed Kimmy Yañez [facility] 12/09/2016 14:44:18 10/17/19 17 Date of Last Colonoscopy completed Paola Kendall [facility] [facility] 12/09/2016 16:54:35 10/17/19 17 Colonoscopy completed Becky Norton MA [facility] 10/24/2016 11:43:36 03/23/19 16 Fall Risk Assessment completed Becky Norton MA [facility] 03/23/2015 13:55:01 03/23/19 16 Mini-Cog Test completed Becky Norton MA [facility] 03/23/2015 14:02:26 03/23/19 16 Advanced Care Planning completed Becky Norton MA [facility] 03/23/2015 13:41:44 08/19/19 15 Date of Last Pap Smear completed Michelle Ervin [facility] 03/28/2015 11:40:33 02/23/19 11 Most Recent Bone Density completed Becky Norton MA [facility] 03/23/2015 14:07:39 02/09/19 08 Appendectomy completed Tea Handy [facility] 03/02/2014 10:46:37 Imaging Results None recorded. Procedure Notes None recorded. Medical Equipment None Reported. Allergies Allergen ID Allergen Name Allergen Category Reaction Reaction Severity Criticality Documentation Date Start Date Code Code System Note Provider Name and Address Organization Details Recorded Time 2935 latex environme nt,medica tion rash Not available Not available 08/23/20132012 77960 91 RxNorm Beckybridger [facility] 7 17:00:18 Medications Name Sig [...] 03/29/19 10 3:00PM BY PILLO Masters [facility]; Not Available Not Available [...] 12/22/19 10 2:51PM BY RICARDO COLE [facility]; Not Available Not Available [...] Updated DateTime 8 154.94 cm 31.4 kg/m2 43227.4 3 g 98.7 [degF] 96 % 96 % 89 /min 118/76 mm[Hg] Becky Norton MA [facility] 8 11:28:28 Date Recorded Body height Body mass index (BMI) Body weight Heart rate Oxygen saturation Oxygen saturation in Arterial blood by Pulse oximetry Body temperature Systolic And Diastolic Provider Name and Address Organization Details Last Updated DateTime 9 154.94 cm 30.2 kg/m2 81135.7 8 g 92 /min 96 % 96 % 98.4 [degF] 124/78 mm[Hg] Ruby Mackey [facility] 9 12:59:19 Date Recorded Body height Body mass index (BMI) Body weight Heart rate Oxygen saturation Oxygen saturation in Arterial blood by Pulse oximetry Body temperature Systolic And Diastolic Provider Name and Address Organization Details Last Updated DateTime 8 154.94 cm 30.8 kg/m2 03375.5 6 g 94 /min 97 % 97 % 97.5 [degF] 136/74 mm[Hg] Viola Medina [facility] 8 10:41:30 Date Recorded Body height Body mass index (BMI) Body weight Body temperature Heart rate Oxygen saturation Oxygen saturation in Arterial blood by Pulse oximetry Systolic And Diastolic Provider Name and Address Organization Details Last Updated DateTime 8 154.94 cm 30.5 kg/m2 64002.4 7 g 97.2 [degF] 86 /min 96 % 96 % 123/72 mm[Hg] Naheed Jose Alfredo [facility] 8 12:57:56 Date Recorded Body height Body mass index (BMI) Body weight Oxygen saturation Oxygen saturation in Arterial blood by Pulse oximetry Heart rate Body temperature Systolic And Diastolic Provider Name and Address Organization Details Last Updated DateTime 9 154.94 cm 30.7 kg/m2 23299.0 6 g 96 % 96 % 81 /min 98.1 [degF] 119/67 mm[Hg] Leila Julien MA [facility] 9 09:56:35 Social History Question Answer Notes LastModified by Organizat ion Details LastModified Time Tobacco Smoking Status Former Smoker ELLIOTT Plascencia [facility] [place] 09/08/2013 11:26:06 Do You [...] Much Tobacco Do You Smoke? 1 PPW [email or web address] Information not available 01/20/2019 General Stress Level [...] used smokeless tobacco? Never used smokeless tobacco [email or web address] Information not available 01/20/2019 Are you currently employed? Yes Information not available 03/02/2014 Are you able to care for yourself independently ? 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 Never used electronic cigarettes [email or web address] Information not available 01/20/2019 What is your exercise level? Moderate daily [email or web address] Information not available 01/20/2019 Mental Status None recorded. Family History Relationship Description Onset Age of this Age Resolved Age Notes LastModified by Organization Details LastModified Time Mother Malignant neoplasm of breast [email or web address] Not available 01/2016 14:12:46 [...] 13 5 completed Not Available [facility] 02/26/2019 02:21:36 Influenza, split virus, quadrivalent, PF 5 completed Becky rosario [facility] 03/23/2015 14:06:48 Influenza, high-dose, trivalent, PF 7 completed Not Available [facility] 02/26/2019 02:22:21 Novel Ehgqdpkyo-F6H3-21, all formulations 0 completed Not Available [facility] 08/23/2013 13:38:52 pneumococcal polysaccharide PPV23 0 completed Not Available [facility] 08/23/2013 13:38:52 Influenza, split virus, trivalent, preservative 0 completed Not Available [facility] 08/23/2013 13:38:52 Influenza, split virus, trivalent, preservative 1 completed Not Available [facility] 08/23/2013 13:38:52 Influenza, split virus, trivalent, preservative 2 completed Not Available [facility] 08/23/2013 13:38:52 Influenza, split virus, trivalent, preservative 3 completed Not Available [facility] 08/23/2013 13:38:52 Influenza, high-dose, trivalent, PF 8 completed Not Available [facility] 02/26/2019 02:22:14 Influenza, high-dose, trivalent, PF 9 completed Not Available [facility] 02/26/2019 02:22:09 Past Encounters Encounter ID Performer Location Encounter Start Date Encounter Closed Date Diagnosis/Indication Diagnosis SNOMED-CT Code Diagnosis ICD10 Code Diagnosis IMO Codes Diagnosis Note [id number] NICOL[address]S Cheung Main [address] [place] [address] 09/08/2013 11:14:56 09/08/2013 11:58:13 Essential hypertension 34866028 well controlled Asthma 186725813 followed by pulm, well controlled on symbicort Anxiety state 695693921 Impacted cerumen 06191794 successful ly removed with ear lavage [id number] [employer] [facility] [address] [facility] [place] [address] 03/01/2009 00:00:00 [id number] [place] [address] 03/29/2009 00:00:00 [id number] [address] [place] [address] 09/10/2009 00:00:00 [id number] [address] [place] [address] 11/13/2009 00:00:00 [id number] [employer] [facility] [address] [place] [address] 11/30/2009 00:00:00 [id number] [employer] er[facility] [address] [facility] [place] [address] 12/21/2009 00:00:00 [id number] [employer] er[facility] [address] [facility],[address] [place] [address] 02/11/2010 00:00:00 [id number] [employer] [facility] [address] [facility] [address] [place] [address] 05/17/2010 00:00:00 [id number] [employer] er[facility] [address] [facility],[address] [place] [address] 08/23/2010 00:00:00 [id number] auto[employer] erce [address] [facility] [place] [address] 09/04/2010 00:00:00 [id number] [employer] erce [address] [facility] [place] [address] 11/29/2010 00:00:00 [id number] [facility] [address] [address] [place] [address] 01/10/2011 00:00:00 [id number] autoEComm erce [address] [facility] [place] [address] 05/02/2011 00:00:00 [id number] auto[employer] erce [address] [place] [place] [address] 10/31/2011 00:00:00 [id number] auto[employer]Comm ashley [address] [facility] [place] [address] 04/29/2012 00:00:00 [id number] [employer] monchoe [address] [facility] [place], [place] [address] 07/15/2012 00:00:00 [id number] [employer] ashley [address] [place] [address],[address] [place] [address] 01/27/2013 00:00:00 [id number] Ramon Callahan MD Main Office [address] [address] [place] [address] 09/26/2013 13:41:44 09/26/2013 14:55:33 Dermatitis 815249247 candidal dermatitis [id number] Ricardo medellin MD Main Office [address] [place] [address] [place] [address] 03/02/2014 12:39:53 03/02/2014 13:42:38 Essential hypertension 03931567 Hyponatremia 27857540 pt t o see Dr Pride regularly/ pt aware that she needs to stop using clorazepat e / see psych referral Anxiety state 740919139 Dysuria 57581371 [id number] Ricardo medellin MD Main Office [address] [address] [place] [address] 04/21/2014 14:46:19 04/21/2014 15:48:33 Essential hypertension 54733732 both meds helpful/ Diltiazem and lisinopril Gastroesop hageal reflux disease 204335770 pt on PPI Anxiety state 249573708 Asthma 686846158 [id number] Ricardo medellin MD Main Office [address] [address] [place] [address] 03/23/2015 13:27:48 03/23/2015 14:47:01 Adult health examination 833044182 Z00.[address] [facility] ed risk for falls 690615641 Z91.81 Advance di rective discussed with patient 787744015 Z71.89 pt will have her brother as health care proxy Essential hypertension 37188799 I10 both meds helpful/ Diltiazem and lisinopril Polyp of colon 10719808 K63.5 pt due for colonoscop y 2016 /tubular adenoma/We iss Asthma 716128805 J45.90 9 Anxiety state 025077876 F41.1 [id number] Ricardo medellin MD Main Office [address] [address] [place] [address] 10/05/2015 12:46:12 10/05/2015 13:40:50 Essential hypertension 97510720 I10 both meds helpful/ Diltiazem and lisinopril Asthma 673577291 J45.90 9 urged pt to get flu shot soon. Anxiety state 400285210 F41.1 [id number] Ricardo medellin MD Main Office [address] [address] [place] [address] 06/19/2016 12:55:50 06/19/2016 14:13:50 Fatigue 19279798 R53.83 Abnormal weight loss 267 128489 R63.4 Diarrhea 72208029 R19.7 Nausea 730591196 R11.0 d/w pt to elevate HOB/ cont PPI Impaired f asting glycemia 018101816 R73.01 [id number] Ricardo medellin MD Main Office [address] [address] [place] [address] 10/23/2016 14:30:06 10/23/2016 15:27:24 [id number] Ricardo medellin MD Main Office [address] [address] [place] [address] 10/31/2016 13:21:48 10/31/2016 14:41:18 Lumbosacral radiculitis 56454148 M54.17 Influenza vaccine needed 5280194811 106 Z23 [id number] Ricardo medellin MD Main Office [address] [address] [place] [address] 12/01/2016 13:04:53 12/01/2016 14:09:38 Adult health examination 731015864 Z00.00 Essential hypertension 93174914 I10 both meds helpful/ Diltiazem and lisinopril Anxiety state 910819488 F41.1 [id number] Ricardo medellin MD Main Office [address] [place] [address] 05/15/2017 11:16:16 05/15/2017 12:12:51 Anxiety state 969388850 F41.1 Essential hypertension 82426873 I10 both meds helpful/ Diltiazem and lisinopril Incomplete emptying of urinary bladder 687738991 R39.14 [id number] Denis Marcos [facility] Main Office [address] [place] [address] 11/13/2017 10:36:20 11/13/2017 11:18:17 Anxiety state 870891041 F41.Katerine has been on med for 20+ years, she is taking 3.75mg daily, will try to cut the dose in half if possible. f/u in 1 month for wellness visit. Influenza vaccine needed 1989386785 106 Z23 Gastroesop hageal reflux disease 675353668 K21.9 Essential hypertension 20423667 I10 well controlled , continue meds as directed. [id number] Denis Marcos [facility] Main Office [address] [address] 12/18/2017 12:40:39 12/18/2017 13:46:58 Adult health examination 566809531 Z00.00 UTD, she will call [facility] for appt Varicella vaccination 68 163801 Z23 Asthma 914552588 J45.90 9 Essential hypertension 52613346 I10 well controlled , continue meds as directed. Family his tory of Hypercholesterolemia 531881481 Z83.49 Anxiety state 717970369 Edi.Katerine has been on med for 20+ years, she is taking 3.75mg daily, will try to cut the dose in half if possible. f/u in 1 month for wellness visit. [id number] Solomon Hemphill MD Main Office [address] [place] [address] 06/11/2018 12:42:51 06/11/2018 13:40:40 Low back pain 584270675 M54.5 Patient with chronic low back pain, in PT, seeing chiropract or, but wondering if she should be seeing someone else. Will check XR and refer back to [facility], she has seen them for this in the past. continue sx treatment, ibuprofen as needed. Cramp in lower limb 4499 61340 R25.2 Essential hypertension 64815207 I10 well controlled , continue meds as directed. Fatigue 32815086 R53.83 [id number] Solomon Hemphill MD Main Office [address] [facility] [place] [address] 01/20/2019 09:41:15 01/20/2019 10:33:29 Adult health examination 035600158 Z00.00 UTD, she has mammo scheduled, needs to call [facility]. Influenza vaccine needed 8172767041 106 Z23 Impaired f asting glycemia 300328278 R73.01 in June, sugar 125 and she believes she was fasting Hyperlipidemia 16464837 E78.5 Health Concerns Section Related Observation LastModified by Organization Detai ls LastModified Time None Recorded Concern Status LastModified by Organization Details LastModified Time None Recorded Advance Directives Directive Y: Payers Insurance Date Sequence Insurance Name Policy Number Policy Menendez Covered Member ID Menendez Member ID Guarantor Name 09/10/2016 1 [employer] - MEDICARE ADVANTAGE PLAN (MEDICARE REPLACEMENT HMO) [id number] Noris Hou [id number] Noris Hou 07/19/2019 2 [place] [id number] Noris Hou [id number] Noris Hou 07/19/2019 1 [place] B[place] Noris Hou [id number] Noris Hou Notes Date Note Type Note Provider Name and Address Organization Details Recorded Time 05/15/2017 text/html Hypertension F/UReported by PatientHPIFor associated symptoms, patient reportsno dizziness,no lightheadedness, andno edema. For lifestyle, patient reportslimiting/avoidin g salt. For medications, patient reportstaking medications as directedandno side effects from medication. GERD RefluxReported by Patient Anxiety/DepressionRepor gifty by PatientHPIFor quality, patient reportsincreased anxiety(pt reports that sthe plans to return to her pschologist dr jackson this year). For severity, patient reportsable to maintain relationships. For associated symptoms, patient reportsno significant weight gainandmood good(pt has fci hx of benzo use , > 20 years). Urinary FrequencyReported by PatientHPIFor associated symptoms, patient reportsincomplete emptying of bladderbut reportsno abdominal pain,no back pain,no chills,no blood in the urine,no nausea,no vomiting, andno fever. For quality, patient reportssymptoms worse during the day. For severity, patient reportsmoderate. For alleviating factors, (pt has incomplete emptying of bladder/ see urology notes from 2015- pt will be referred back and we will refill tamsulosin which pt finds helpful).ROS as noted in the HPI Ricardo rosario [facility] 05/15/2017 12:16:47 11/13/2017 text/html Anxiety/Depressi onRepor gifty by PatientHPIFor quality, patient reportsincreased anxiety(stress, car trouble). For context, patient reportsmajor life stressorsandfamily problems. For associated symptoms, patient reportshigh irritability,hostility, anxiety,hypersensitivit y, andanxiety with muscle tensionbut reportsno significant weight gain(pt has terminologist hx of benzo use , > 20 years). For severity, patient reportsable to maintain relationships.+ hx nausea and diarrhea, panic attacks etcROS as noted in the HPI Maryanne rosario [facility] 11/13/2017 12:41:13 12/18/2017 text/html Medicare Annual Wellness VisitReported by PatientSocial/Behaviora l HistoryFor diet and nutrition, patient reportshealthy diet,discussed vitamin and supplement use,discussed portion control,discussed maintaining calcium balance, anddiscussed diet improvement. For fracture risk, patient reportsno history of fractures,no recent explained fracture,no sudden unexplained fractures, andno previous musculoskeletal injuries. For physical activity, patient reportsrecent increase in physical activity,good physical condition,discussed weightbearing activities, anddiscussed exercise habits.Mental Status:For depression risk, patient reportsnever feels sad, empty, or tearful,no loss of interest in activities,no significant changes in weight,no sleep disturbances or insomnia,no agitation,no loss of energy,no feelings of worthlessness or guilt,no thoughts of suicide,no history of depression, andno history of mood disorders. For orientation, patient reportsno disorientation to time,no disorientation to date, andno disorientation to place. For concentration and memory, patient reportsno decreased concentrating ability,no memory lapses or loss, anddoes not forget words. For speech/motor difficulties, patient reportsno speech difficulties,no difficulty expressing formulated concepts,no difficulty with fine manipulative tasks,no difficulty writing/copying,no slowed reaction time, anddoes not knock things over when trying to pick them up.Functional AbilityFor home safety, patient reportsunsafe aamir hazzards (she is working on it)but reportsno unsafe stairs,no unsafe gas appliances,working smoke/co detectors,wears protective head gear for biking/high velocity,use of seatbelts,practicing 'safer sex',no vision or hearing loss while driving,no fire arms,has hand bars in the bathroom/shower,good lighting in the home, andreviewed sun protection. For hearing, patient reportsno loss of hearing. For vision, patient reportsno vision problems(reading glasses). For instrumental activities of daily living, patient reportsable to do house work with limited or no assistance,able to grocery shop with limited or no assistance,able to manage medications with limited or no assistance,able to manage money with limited or no assistance,able to prepare meals with limited or no assistance, andable to use the phone with limited or no assistance. For falls risk assessment, patient reportsno frequent falls while walking,no fall in the past year,no fall since last visit, andno dizziness/vertigo. Ramon Callahan MD [address], [address], [facility] 12/19/2017 16:52:49 06/11/2018 text/html Generic HPI TemplateReported by PatientPatient fell in february, tripped over a rug, [...] strengthen legs. DR saw Dr. Miller at [facility]. Was discharged in 2017 due to improvement with PT. 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 Since the fall her back pain is worse. Denis Marcos, [facility] [address] [address], [place], [address], [facility] 06/11/2018 13:40:34 01/20/2019 text/html Medicare Annual Wellness VisitReported by PatientSocial/Behaviora l HistoryFor fracture risk, patient reportshistory of fractures (2 broken toes s/p fall in february)but reportsno recent explained fracture,no sudden unexplained fractures, andno previous musculoskeletal injuries. For diet and nutrition, patient reportshealthy diet,discussed vitamin and supplement use,discussed portion control,discussed maintaining calcium balance, anddiscussed diet improvement. For physical activity, patient reportsrecent increase in physical activity,good physical condition,discussed weightbearing activities, anddiscussed exercise habits.Mental Status:For depression risk, patient reportsnever feels sad, empty, or tearful,no loss of interest in activities,no significant changes in weight,no sleep disturbances or insomnia,no agitation,no loss of energy,no feelings of worthlessness or guilt,no thoughts of suicide,no history of depression, andno history of mood disorders. For orientation, patient reportsno disorientation to time,no disorientation to date, andno disorientation to place. For concentration and memory, patient reportsno decreased concentrating ability,no memory lapses or loss, anddoes not forget words. For speech/motor difficulties, patient reportsno speech difficulties,no difficulty expressing formulated concepts,no difficulty with fine manipulative tasks,no difficulty writing/copying,no slowed reaction time, anddoes not knock things over when trying to pick them up.Functional AbilityFor hearing, patient reportsfluctuating(saw ent, had cerumen removal). For home safety, patient reportsunsafe aamir hazzards (she is working on it)but reportsno unsafe stairs,no unsafe gas appliances,working smoke/co detectors,wears protective head gear for biking/high velocity,use of seatbelts,practicing 'safer sex',no vision or hearing loss while driving,no fire arms,has hand bars in the bathroom/shower,good lighting in the home, andreviewed sun protection. For vision, patient reportsno vision problems(reading glasses). For activities of daily living, patient reportsable to bathe with limited or no assistance,able to contol urination and bowels,able to dress with limited or no assistance,able to feed self with limited or no assistance,able to get out of chair or bed with limited or no assistance,able to groom with limited or no assistance, andable to toilet with limited or no assistance. For instrumental activities of daily living, patient reportsable to do house work with limited or no assistance,able to grocery shop with limited or no assistance,able to manage medications with limited or no assistance,able to manage money with limited or no assistance,able to prepare meals with limited or no assistance, andable to use the phone with limited or no assistance. For falls risk assessment, patient reportsno frequent falls while walking,no dizziness/vertigo,fall( s) in the past year 1, andfall(s) since last visit1(trip and fall).Numbness in bilateral feet sx for 1 year. saw orthopedics for toes after fall in february. does not believe she is diabetic. just in feet. Patient states she found a new PCP in [place] but cannot be seen until May. Denis Marcos, [facility] [address] [address], [place], [address], [facility] 01/20/2019 10:57:40 OBGyn Episode No OBEpisode recorded.
--- OUTSIDE RECORDS SUMMARY | 2024-12-01 12:43 | XMS_ITS ---
Author Organization [facility] Address [address] [place] [address] Phone Care Team Providers Care Signal Circuit Designer Name Role Phone Ric Flor MD Primary Care Provider Syd Maria MD Unavailable [phone] Active Problems Problem Noted Date Diagnosed Date [...] TRANSVERSE COLON. PT WAS LATER TRANSFERRED TO [facility] TO BE WATCHED CLOSELY. PT WAS THEN [...]
--- OUTSIDE RECORDS SUMMARY | 2024-12-01 12:43 | XMS_ITS | Encounter Summary ---
Author Organization [facility] Address [address] [place] [address] Phone Care Team Providers Care Supervising Appraiser Name Role Phone Ric Flor MD Primary Care Provider Syd Maria MD Unavailable +1- [phone] Encounter Details Date Type Department Care Team (Late st Contact Info) Description 06/20/2024 Prep for Surgery [facility], [facility] [place] [address] [facility], 11th [place] [address] Sylvie Shirley MD, MPH 45 [place] [address] [email or web address] Squamous cell cancer of skin of nose [...] Visit [facility], [facility] [place] [address] [facility], 11th [place] [address] Sylvie Shirley MD, MPH [address] [place] [address] [email or web address] 12/20/2024 11:00 AM EST Office Visit [facility], [facility] [place] [address] [facility], 5th [place] [address] Kiley Holliday MD [address] [facility] [address] [place] [address] [email or web address] documented as of this encounter Visit Diagnoses Diagnosis Squamous cell cancer of skin of nose- Primary documented in this encounter Care Teams Supervising Appraiser Relationship Specialty Start Date End Date Ric Flor MD [address] [place] [address] PCP - General Family Medicine 06/03/24 Syd Maria MD [address] [place] [address] Referring Physician 06/03/24 documented as of this encounter Additional Source Comments The information contained in this document represents components of the legal health record. It is not the complete legal health record.[facility]
--- OUTSIDE RECORDS SUMMARY | 2024-12-01 12:44 | XMS_ITS | Encounter Summary ---
Author Organization [facility] Address [address] [place] [address] Phone Care Team Providers Care Jet Piercer Operator Name Role Phone Ric Flor MD Primary Care Provider Syd Maria MD Unavailable +1- [phone] Encounter Details Date Type Department Care Team (Late st Contact Info) Description 06/08/2024 Procedure Pass [facility], [facility] [place], [place] [address] [facility], Floor [address]1 [place] [address] Social History Tobacco Use Types Packs/Day Years [...] Visit [facility], [facility] [address] [facility], 11th [place] [address] Sylvie Shirley MD, MPH 45 [place] [address] [email or web address] 12/20/2024 11:00 AM EST Office Visit [facility], [facility] [address] [facility], 5th [place] [address] Kiley Holliday MD [address] [facility] [address] [place] [address] [email or web address] documented as of this encounter Visit Diagnoses Not on filedocumented in this encounter Care Teams Jet Piercer Operator Relationship Specialty Start Date End Date Ric Flor MD [address] [place] [address] PCP - General Family Medicine 06/03/24 Syd Maria MD [address] [place] [address] Referring Physician 06/03/24 documented as of this encounter Additional Source Comments The information contained in this document represents components of the legal health record. It is not the complete legal health record.[facility]
--- OUTSIDE RECORDS SUMMARY | 2024-12-01 12:44 | XMS_ITS | Encounter Summary ---
Author Organization [facility] Address [address] [place] [address] Phone Care Team Providers Care Vamp Throater Name Role Phone Ric Flor MD Primary Care Provider Syd Maria MD Unavailable +1- [phone] Encounter Details Date Type Department Care Team (Late st Contact Info) Description 06/08/2024 Procedure Pass [facility], [facility] [place], [place] [address] [facility], Floor [address]1 [place] [address] Social History Tobacco Use Types Packs/Day Years [...] Visit [facility], [facility] [address] [facility], 11th [place] [address] Sylvie Shirley MD, MPH 45 [place] [address] [email or web address] 12/20/2024 11:00 AM EST Office Visit [facility], [facility] [address] [facility], 5th [place] [address] Kiley Holliday MD 450 [facility] [address] [place] [address] [email or web address] documented as of this encounter Visit Diagnoses Not on filedocumented in this encounter Care Teams Vamp Throater Relationship Specialty Start Date End Date Ric Flor MD [address] [place] [address] PCP - General Family Medicine 06/03/24 Syd Maria MD [address] [place] [address] Referring Physician 06/03/24 documented as of this encounter Additional Source Comments The information contained in this document represents components of the legal health record. It is not the complete legal health record.[facility]
--- OUTSIDE RECORDS SUMMARY | 2024-12-01 12:44 | XMS_ITS | Clinical Summary ---
Author Organization [facility] Address [address] [place] [address] Care Team Providers Care Hoop Machine Operator Name Role Phone Unavailable Primary Care Provider [...] dental caries Place in mouth once daily [place] with Prevident 5000 once daily before bed; spit excess, do not rinse.. 56 g 3 Active Active Problems Problem Noted Date Diagnosed Date Asthma 09/06/2024 Hypertension 09/06/2024 COPD (chronic obstructive pulmonary disease) Encounters Date Type Department Care Team Description 09/30/2024 11:00 AM EDT Office Visit [address] [phone] Josh Dougherty DDS 09/06/2024 10:20 AM EDT Office Visit [facility] [address] [place] [phone] Vicki Laws 09/06/2024 9:00 AM EDT Office Visit [address] [phone] Jacy Saavedra from Last 3 Months Social [...] Drug Screen 02/10/2024 Depression Annual Screen 02/10/2024 [id number] ( season) 2024 03/29/2021, 05/12/2020, 04/21/2020 Imm-Influenza [...] 12:00 AM EDT from Last 3 Months [facility]
--- OUTSIDE RECORDS SUMMARY | 2024-12-01 12:44 | XMS_ITS | Encounter Summary ---
Author Organization [facility] Address [address] [place] [address] Phone Care Team Providers Care Laser Beam Machine Operator Name Role Phone Ric Flor MD Primary Care Provider Syd Maria MD Unavailable +1- [phone] Encounter Details Date Type Department Care Team (Late st Contact Info) Description 06/08/2024 Procedure Pass [facility] Imaging Department, [facility] [place], [place] 450 [facility], Floor L1 [place] [address] Social History Tobacco Use Types Packs/Day Years [...] [facility], [facility] [address] [facility], 11th [place] [address] Sylvie Shirley MD, MPH 45 [place] [address] [email or web address] 12/20/2024 11:00 AM EST Office Visit [facility], [facility] [address] [facility], 5th [place] [address] Kiley Holliday MD 450 [facility] [address] [place] [address] [email or web address] documented as of this encounter Visit Diagnoses Not on filedocumented in this encounter Care Teams Laser Beam Machine Operator Relationship Specialty Start Date End Date Ric Flor MD [address] [place] [address] PCP - General Family Medicine 06/03/24 Syd Maria MD [address] [place] [address] Referring Physician 06/03/24 documented as of this encounter Additional Source Comments The information contained in this document represents components of the legal health record. It is not the complete legal health record.[facility]
--- OUTSIDE RECORDS SUMMARY | 2024-12-01 12:44 | XMS_ITS | Encounter Summary ---
Author Organization [facility] Address [address] [place] [address] Phone Care Team Providers Care Appliance Service Representative Name Role Phone Ric Flor MD Primary Care Provider Syd Maria MD Unavailable +1- [phone] Encounter Details Date Type Department Care Team (Late st Contact Info) Description 07/11/2024 Procedure Pass [facility] Periop 75 [place] [address] Social History Tobacco Use Types Packs/Day Years [...] No Risk Indicated 07/11/2024 4:51 PM EDT Abbye Mata RN * [place] Suicide Severity Rating Scale (Screener/Recent Self-Report) Question [...] [facility], [facility] [address] [facility], 11th [place] [address] Sylvie Shirley MD, MPH 45 [place] [address] [email or web address] 12/20/2024 11:00 AM EST Office Visit [facility], [facility] [address] [facility], 5th [place] [address] Kiley Holliday MD 450 [facility] [address] [place] [address] Deann@[email or web address] documented as of this encounter Visit Diagnoses Not on filedocumented in this encounter Care Teams Appliance Service Representative Relationship Specialty Start Date End Date Ric Flor MD [address] [place] [address] PCP - General Family Medicine 06/03/24 Syd Maria MD [address] [place] [address] Referring Physician 06/03/24 documented as of this encounter Additional Source Comments The information contained in this document represents components of the legal health record. It is not the complete legal health record.[facility]
--- OUTSIDE RECORDS SUMMARY | 2024-12-01 12:44 | XMS_ITS | Encounter Summary ---
Author Organization [facility] Address [address] [place] [address] Phone Care Team Providers Care Vehicle Detailer Name Role Phone Ric Flor MD Primary Care Provider Syd Maria MD Unavailable +1- [phone] Encounter Details Date Type Department Care Team (Late st Contact Info) Description 06/08/2024 Procedure Pass [facility] [address] [facility] 2nd [place] [address] Social History Tobacco Use Types Packs/Day Years [...] Visit [facility], [facility] [address] [facility], 11th [place] [address] Sylvie Shirley MD, MPH 45 [place] [address] [email or web address] 12/20/2024 11:00 AM EST Office Visit [facility], [facility] [address] [facility], 5th [place] [address] Kiley Holliday MD 450 [facility] [address] [place] [address] Deann@[email or web address] documented as of this encounter Visit Diagnoses Not on filedocumented in this encounter Care Teams Vehicle Detailer Relationship Specialty Start Date End Date Ric Flor MD [address] [place] [address] PCP - General Family Medicine 06/03/24 Syd Maria MD [address] [place] [address] Referring Physician 06/03/24 documented as of this encounter Additional Source Comments The information contained in this document represents components of the legal health record. It is not the complete legal health record.[facility]
== END 2024-12-01 11:59 | disposition home or self-care (01) ==
LOC: HO.ACS 10:32
PROVIDERS: PCP Family Medicine; Visit Provider Internal Medicine Medical Oncology
DX: Z79.01 Long term (current) use of anticoagulants (principal)

== ENCOUNTER → 2024-12-01 10:32 | Outpatient (BNVA) | payer MEDICARE, OTHER, SELFPAY | PROVIDERS: PCP Family Medicine; Visit Provider Internal Medicine Medical Oncology | DX: I26.94 Multiple subsegmental thrombotic pulmonary emboli without acute cor pulmonale (principal); Z86.718 Personal history of other venous thrombosis and embolism; Z51.81 Encounter for therapeutic drug level monitoring; Z79.01 Long term (current) use of anticoagulants | CPT/HCPCS: 85610; 99211 ==

== ENCOUNTER 2024-12-08 08:27 | Outpatient (REF) | payer MEDICARE, OTHER, SELFPAY ==
--- OUTSIDE RECORDS SUMMARY | 2024-12-08 09:07 | XMS_ITS | Clinical Summary ---
Author Organization [facility] Address [address] [place] [address] Phone Care Team Providers Care Speeder Tender Name Role Phone Ric Flor MD Primary Care Provider Syd Maria MD Unavailable +1- [phone] Allergies Active Allergy Reactions Criticality Noted Date [...] FEW TIMES THE PT TOOK HERSELF TO [facility] TO BE EVALUATED. THE ONLY SX THAT THE PT FELT WAS BLOATING AND CRAMPING EVERYTIME SHE ATE. PT HAD TO UNDERGO A COLONOSCOPY WITCH SHOWED THAT THE PT HAD BLEEDING COMING FROM THE ASCENDING,DESCENDING, AND TRANSVERSE COLON. PT WAS LATER TRANSFERRED TO [facility] TO BE WATCHED CLOSELY. [...] Telephone Center for [facility], [facility] [place] [address] [place] [address], 11th Floor [place] [phone] Ansley Johnston, RN ACO Care Coordination from [...] Visit Center for [facility] and [facility] Oncology, [facility] [address] [facility], 11th [place] [address] Sylvie Shirley MD, MPH 45 [place] [address] Ana@[email or web address] 12/20/2024 11:00 AM EST Office Visit [facility], [facility] [address] [facility], 5th [place] [address] Kiley Holliday MD 450 [facility] [address] [place] [address] [email or web address] Health Maintenance Due Date Last Done Comments [...] EDT) SODIUM 134(L) 136 - 145 mmol/L [facility] POTASSIUM 4.2 3.4 - 5.1 mmol/L [facility] CHLORIDE 99 98 - 107 mmol/L [facility] CO2 26 22 - 31 mmol/L [facility] BUN 7 6 - 23 mg/dL [facility] CREATININE 0.59 0.50 - 1.20 mg/dL [facility] Comment: GLUCOSE 141(H) 70 - 100 mg/dL [facility] CALCIUM 8.1(L) 8.8 - 10.7 mg/dL [facility] EGFR 90 >59 mL/min/1.7 3m2 [facility] Comment: Estimated glomerular filtration rate calculated using the CKD-EPI refit equation. ANION GAP 9 7 - 17 mmol/L [facility] Blood 07/12/2024 4:10 AM EDT 07/12/2024 5:11 AM EDT Joana Mandeep Shirley MD, MPH LAB BLOOD ORDERA BLES Final Result [facility] [address] [place] [address] from Last 3 Months or Most Recently Relevant to Health Maintenance Insurance MEDICARE PART A & B [employer]EX SUPPLEMENT [facility] MEDICARE PART A & B [employer] MEDEX SUPPLEMENT [address] [place], [place] [id number] MEDICARE PART A & B Member Subscriber Plan / Payer (Ef fective 2007-Present) Name:ElzaJacquelin moranis Member ID:[id number] Relation to Subscriber:Self Name:Noris Hou Subscriber ID:[id number] Payer ID:[id number] Group ID:Not on file Type:Medicare Address: [facility] [employer] [address] [address] [employer] SUPPLEMENT MEDICARE PART A & B Member Subscriber Plan / Payer ( fective 2007-Present) Name:ElzajohnNoris domingo Member ID:[id number] Relation to Subscriber:Self Name:ElzadeanNoris Subscriber ID:[id number] Payer ID:[id number] Group ID:Not on file Type:Medicare Address: [facility] [address] [place] [address] [employer] MEDEX SUPPLEMENT MEDICARE PART A & B Member Subscriber Plan / Payer ( fective 2007-) Name:Noris Hou Member ID:[id number] Relation to Subscriber:Self Name:Noris Hou Subscriber ID:[id number] Payer ID:[id number] Group ID:Not on file Type:Medicare Address: [facility] [address] [place] [address] [employer] MEDEX SUPPLEMENT [facility] MEDICARE PART A & B [employer] SUPPLEMENT MEDICARE PART A & B [employer] SUPPLEMENT [facility] MEDICARE PART A & B [employer] MEDEX SUPPLEMENT [facility] MEDIC[facility] PART A & B [employer]EX SUPPLEMENT [facility] Advance Directives For more information, please contact: [phone] (9AM - 5PM [place]/[facility], Thursday-Thursday) Documents on File Type Date Recorded Patient Cold Storage Supervisor Expl anation Healthcare Proxy 07/11/2024 * Full Code (Latest Code Status on File) Date Activated Date Inactivated Comments 07/11/2024 1:25 PM Question Answer Comments Code Status Confirmed With: Patient Care Teams Speeder Tender Relationship Specialty Start Date End Date Ric Flor MD PCP - General Family Medicine 06/03/24 Syd Maria MD [address] [place] [address] Referring Physician 06/03/24 Additional Source Comments The information contained in this document represents components of the legal health record. It is not the complete legal health record.[facility]
--- OUTSIDE RECORDS SUMMARY | 2024-12-08 09:07 | XMS_ITS ---
Author Organization [facility] Address [address] [place] [address] Phone Care Team Providers Care Center Machine Operator Name Role Phone Ric Flor MD Primary Care Provider Syd Maria MD Unavailable +1- [phone] Active Problems Problem Noted Date Diagnosed Date [...] FEW TIMES THE PT TOOK HERSELF TO [facility] TO BE EVALUATED. THE ONLY SX THAT THE PT FELT WAS BLOATING AND CRAMPING EVERYTIME SHE ATE. PT HAD TO UNDERGO A COLONOSCOPY WITCH SHOWED THAT THE PT HAD BLEEDING COMING FROM THE ASCENDING,DESCENDING, AND TRANSVERSE COLON. PT WAS LATER TRANSFERRED TO [facility] TO BE WATCHED CLOSELY. PT WAS THEN [...]
--- OUTSIDE RECORDS SUMMARY | 2024-12-08 09:07 | XMS_ITS | Encounter Summary ---
Author Organization [facility] Address [address] [place] [address] Phone Care Team Providers Care Steam Train Driver Name Role Phone Ric Flor MD Primary Care Provider Syd Maria MD Unavailable +1- [phone] Encounter Details Date Type Department Care Team (Late st Contact Info) Description 07/11/2024 Procedure Pass [facility] Periop [address] [place] [address] Social History Tobacco Use Types Packs/Day Years [...] 4:51 PM EDT Abbey Mata RN * [place] Suicide Severity Rating Scale (Screener/Recent Self-Report) Question [...] Visit Center for [facility] Oncology, [facility] [address] [facility], 11th [place] [address] Sylvie Shirley MD, MPH 45 [place] [address] [email or web address] 12/20/2024 11:00 AM EST Office Visit [facility], [facility] [address] [facility], 5th [place] [address] Kiley Holliday MD 450 [facility] [address] [place] [address] [email or web address] documented as of this encounter Visit Diagnoses Not on filedocumented in this encounter Care Teams Steam Train Driver Relationship Specialty Start Date End Date Ric Flor MD PCP - General Family Medicine 06/03/24 Syd Maria MD [address] [place] [address] Referring Physician 06/03/24 documented as of this encounter Additional Source Comments The information contained in this document represents components of the legal health record. It is not the complete legal health record.[facility]
--- OUTSIDE RECORDS SUMMARY | 2024-12-08 09:07 | XMS_ITS | Patient Health Record ---
Author Organization [facility] Address [address] [place] [address] Care Team Providers Care Pharmaceutical Specialty Representative Name Role Phone Syd Dhillon MD Primary Care Provider Un available Harsha Camara Unavailable [phone] Allergies Allergen (clinical drug ingredient) Drug/Non Drug [...] Problem Status W/U Status Risk Notes Problem Screening for malignant neoplasm of colon (505652729) Encounter for screening for malignant neoplasm of colon (Z12.11) Active confirmed Problem History of adenomatous polyp of colon (546443880) History of adenomatous polyp of colon (Z86.010) Active confirmed Problem Gastroesophageal reflux disease (432948479) Gastroesophageal reflux disease, esophagitis presence not specified (K21.9) Active confirmed Plan Of Treatment Future Test Test Name Order Date COLONOSCOPY 11/04/2011 COLONOSCOPY 07/16/2016 Insurance Providers Payer Name Payer Address Payer Phone Subscriber Number Group Number Insured Name Patient Relationship to Insured Coverage Start Date Coverage End Date MEDICARE OF [place] [address] [place] [id number] YUE Gardner ELVER Self - patient is the insured MEDEX ATTN CLAIMS [address] [place] [address] [id number] ELVER GARBER Self - patient is the insured Medical (General) History Medical History History ICD Code Colonoscopies in 2006 and in 2011--- Tubular adenomas removed in 2006 and in 11/2011; Cecal AVM's; diffuse diverticulosis; internal hemorrhoids Melanoma on RUE-surgery as below Hiatal hernia-EGD in 2006 Hypertension Asthma Denies SC,DM,CVA,renal disease Urinary retention-planning to see a urol ogist Diverticular bleed in 2009--at [facility] Depression Surgical History Surgery Date(Month/Year) Ovarian cyst Skin cancer surgery-basal ce ll x 4, and melanoma on RUE Rx'd with local excisions by Dr. Dietz
--- OUTSIDE RECORDS SUMMARY | 2024-12-08 09:07 | XMS_ITS | Encounter Summary ---
Author Organization [facility] Address [address] [place] [address] Phone Care Team Providers Care Dedicated Regional Driver Name Role Phone Ric Flor MD Primary Care Provider Syd Maria MD Unavailable +1- [phone] Encounter Details Date Type Department Care Team (Late st Contact Info) Description 06/20/2024 Prep for Surgery [facility], [facility] [place] [address] [facility], 11th [place] [address] Sylvie Shirley MD, MPH 45 [place] [address] [email or web address] Squamous cell cancer of skin of nose [...] Visit [facility], [facility] [place] [address] [facility], 11th [place] [address] Sylvie Shirley MD, MPH [address] [place] [address] [email or web address] 12/20/2024 11:00 AM EST Office Visit [facility], [facility] [place] [address] [facility], 5th [place] [address] Kiley Holliday MD [address] [place] [address] [email or web address] documented as of this encounter Visit Diagnoses Diagnosis Squamous cell cancer of skin of nose- Primary documented in this encounter Care Teams Dedicated Regional Driver Relationship Specialty Start Date End Date Ric Flor MD PCP - General Family Medicine 06/03/24 Syd Maria MD [address] [place] [address] Referring Physician 06/03/24 documented as of this encounter Additional Source Comments The information contained in this document represents components of the legal health record. It is not the complete legal health record.[facility]
--- OUTSIDE RECORDS SUMMARY | 2024-12-08 09:08 | XMS_ITS | Clinical Summary ---
Author Organization [facility] Address [address] [place] [address] Care Team Providers Care Mortar Mixer Name Role Phone Unavailable Primary Care Provider [...] dental caries Place in mouth once daily [place] with Prevident 5000 once daily before bed; spit excess, do not rinse.. 56 g 3 Active Active Problems Problem Noted Date Diagnosed Date Asthma 09/06/2024 Hypertension 09/06/2024 COPD (chronic obstructive pulmonary disease) Encounters Date Type Department Care Team Description 09/30/2024 11:00 AM EDT Office Visit [facility] [address] [place] [address] Josh Dougherty DDS from Last 3 Months Social History Tobacco [...] Drug Screen 02/10/2024 Depression Annual Screen 02/10/2024 Jpm-NEYSM-54 ( season) 2024 03/29/2021, 05/12/2020, 04/21/2020 Imm-Influenza [...] 09/30/2024 11:00 AM EDT Non-restorable carious tooth Full PROPHYLAXIS - ADULT Routine 025 10:20 AM EDT Encounter for dental examination PANORAMIC RADIOGRAPHIC IMAGE Routine 09/06/2024 9:00 AM EDT Caries Fracture of crown, enamel, and dentin of tooth with pulp exposure INTRAORAL - COMP SERIES OF RADIOGRAPHIC IMAGES Routine 09/06/2024 9:00 AM EDT Caries Fracture of crown, enamel, and dentin of tooth with pulp exposure COMP ORAL EVALUATION - NEW/ESTABLISHED PATIENT Routine 09/06/2024 9:00 AM EDT Caries from Last 3 Months or Most Recently Relevant to Health Maintenance Insurance HEALTH SAFETY NET [facility] [id number]
--- OUTSIDE RECORDS SUMMARY | 2024-12-08 09:08 | XMS_ITS | Encounter Summary ---
Author Organization [facility] Address [address] [place] [address] Phone Care Team Providers Care Visual Basic .Net Developer Name Role Phone Ric Flor MD Primary Care Provider Syd Maria MD Unavailable +1- [phone] Encounter Details Date Type Department Care Team (Late st Contact Info) Description 06/08/2024 Procedure Pass [facility] Imaging Department, [facility] [place], [place] [address] [facility], Floor [address]1 [place] [address] Social History Tobacco Use Types Packs/Day Years [...] Visit [facility], [facility] [address] [facility], 11th [place] [address] Sylvie Shirley MD, MPH [address] [place] [address] [email or web address] 12/20/2024 11:00 AM EST Office Visit [facility], [facility] [address] [facility], 5th [place] [address] Kiley Holliday MD [address] [facility] [address] [place] [address] [email or web address] documented as of this encounter Visit Diagnoses Not on filedocumented in this encounter Care Teams Visual Basic .Net Developer Relationship Specialty Start Date End Date Ric Flor MD PCP - General Family Medicine 06/03/24 Syd Maria MD [address] [place] [address] Referring Physician 06/03/24 documented as of this encounter Additional Source Comments The information contained in this document represents components of the legal health record. It is not the complete legal health record.[facility]
--- OUTSIDE RECORDS SUMMARY | 2024-12-08 09:08 | XMS_ITS | Encounter Summary ---
Author Organization [facility] Address [address] [place] [address] Phone Care Team Providers Care Foxer Name Role Phone Ric Flor MD Primary Care Provider Syd Maria MD Unavailable +1- [phone] Encounter Details Date Type Department Care Team (Late st Contact Info) Description 06/08/2024 Procedure Pass [facility] Imaging Department, [facility] [place], [place] [address] [facility], Floor [address] [place] [address] Social History Tobacco Use Types Packs/Day Years [...] Visit [facility], [facility] [address] [facility], 11th [place] [address] Sylvie Shirley MD, MPH [address] [place] [address] [email or web address] 12/20/2024 11:00 AM EST Office Visit [facility], [facility] [address] [facility], 5th [place] [address] Kiley Holliday MD [address] [facility] [address] [place] [address] [email or web address] documented as of this encounter Visit Diagnoses Not on filedocumented in this encounter Care Teams Foxer Relationship Specialty Start Date End Date Ric Flor MD PCP - General Family Medicine 06/03/24 Syd Maria MD [address] [place] [address] Referring Physician 06/03/24 documented as of this encounter Additional Source Comments The information contained in this document represents components of the legal health record. It is not the complete legal health record.[facility]
--- OUTSIDE RECORDS SUMMARY | 2024-12-08 09:08 | XMS_ITS | Encounter Summary ---
Author Organization [facility] Address [address] [place] [address] Phone Care Team Providers Care Contract Law Specialist Name Role Phone Ric Flor MD Primary Care Provider Syd Maria MD Unavailable [phone]- [phone] Encounter Details Date Type Department Care Team (Late st Contact Info) Description 06/08/2024 Procedure Pass [facility] Imaging Department, [facility] [place], [place] [address] [facility], Floor [address]1 [place] [address] Social History Tobacco Use Types Packs/Day Years [...] Visit [facility], [facility] [address] [facility], 11th [place] [address] Sylvie Shirley MD, MPH 45 [place] [address] [email or web address] 12/20/2024 11:00 AM EST Office Visit [facility], [facility] [address] [facility], 5th [place] [address] Kiley Holliday MD [address] [facility] [address] [place] [address] [email or web address] documented as of this encounter Visit Diagnoses Not on filedocumented in this encounter Care Teams Contract Law Specialist Relationship Specialty Start Date End Date Ric Flor MD PCP - General Family Medicine 06/03/24 Syd Maria MD [address] [place] [address] Referring Physician 06/03/24 documented as of this encounter Additional Source Comments The information contained in this document represents components of the legal health record. It is not the complete legal health record.[facility]
--- OUTSIDE RECORDS SUMMARY | 2024-12-08 09:08 | XMS_ITS | Clinical Summary ---
Author Organization [facility] Address [address] [place] [address] Phone Care Team Providers Care University President Name Role Phone Ric Flor MD Primary Care Provider Encounters Date Type Department Care Team Description 12/02/2024 Lab Requisition [facility] - Main Lab [address] [facility] [place] [address] Katlyn Tate PA Pyuria from Last 3 Months Surgical History Surgery Date Site/Laterality Comments OTHER SURGICAL HISTORY PROCEDURE: ---- OTHER ----; COMMENT: [facility] surgery x5, [facility] OVARIAN CYST REMOVAL PROCEDURE: [place] OVARIAN CYSTECTOMY UNI/BI; COMMENT: years ago COLONOSCOPY 10/16/2016 PROCEDURE: HISTORICAL COLONOSCOPY; COMMENT: diverticulosis, angiodysplasias, internal hemorrhoids,further colonoscopies on as needed basis APPENDECTOMY 2008 PROCEDURE: HISTORICAL APPENDECTOMY Medical History Medical History Date Comments History of melanoma 05/17/2019 DX:History o f melanoma; COMMENT: 2008, Right arm, s/p removal GERD (gastroesophageal reflux disease) 02/20/2017 DX:GERD (gastroesophageal reflux disease) Diverticulosis 06/07/2019 DX:Diverticulosi s; COMMENT: 2011 Diverticulitis Tubular adenoma 06/07/2019 DX:Tubular adeno ma; COMMENT: 10/2016 CN diverticulosis, angiodysplasias, internal hemorrhoids,further colonoscopies on as needed basis Osteoarthritis 06/07/2019 DX:Osteoarthriti s; COMMENT: Lumbar Spine, SI joints Chronic low back pain 06/07/2019 DX:Chronic low back pain Vitamin D deficiency 06/07/2019 DX:Vitamin D deficiency Hearing loss 06/07/2019 DX:Hearing loss Hypertension 05/17/2019 DX:Hypertension Hyponatremia 05/22/2019 DX:Hyponatremia; COMMENT: Na 128 on 05/17/2019, no previous labs to compare to Allergic rhinitis 02/20/2017 DX:Allergic rh initis Asthma-COPD overlap syndrome ([facility] V24, [facility] V28) 02/20/2017 DX:Asthma-COPD overlap syndr ome (HCC) IBS (irritable bowel syndrome) 06/07/2019 D X:IBS (irritable bowel syndrome) Family History Medical History Relation Name Comments Other: thyroid problems Brother Stroke Father prostate cancer , HTN, ETOH abuse, depression, chronic deafness Pneumonia Mother breast cancer, skin cancer No Known Problems Sister No Known Problems Son Relation Name Status Comments Brother Alive Father Mother Sister Alive Son Alive Social History Tobacco Use Types Packs/Day Years Used Date Smoking Tobacco: Former Cigarettes Q uit: 05/17/1983 Smokeless Tobacco: Never Alcohol Use Standard Drinks/Week Comments Yes 0 (1 standard drink = 0.6 oz pur e alcohol) Comments Unknown Sex and Gender Information Value Date Recorded Sex Assigned at Not on file Legal Sex Female 2:11 AM EST Gender Identity Not on file Sexual Orientation Not on file Obstetrics History Plan of Treatment Health Maintenance Due Date Last Done Comments Colorectal Cancer Screening: Colonoscopy 1940 DTaP,Tdap,and Td Vaccines (1 - Tdap) 1960 Zoster Vaccines (1 of 2) 08/12/1991 RSV Immunization Adult Patients (1 - 1-dose 75+ series) 2016 Depression Screening 02/10/2024 COVID-19 Vaccine ( - season) 2024 Influenza Vaccine (#1) 2024 8, 10/31/2016, 11/09/2014, Additional history exists Cholesterol Screening (Lipid Panel) 12/02/2024 Falls Risk Assessment 12/02/2024 Hypertension/CHF/CAD Annual BMP Blood Test 12/02/2024 Medicare Annual Wellness Visit 12/02/2024 Osteoporosis Screening (Bone Density Screening) 12/02/2024 Social Influencers of Health Screening 12/02/2024 Pneumococcal Vaccine: 50+ Years Completed 04/21/2014, 03/01/2009 HIB Vaccines Aged Out No longer eligi ble based on patient's age to complete this topic HPV Vaccines Aged Out No longer eligi ble based on patient's age to complete this topic Hepatitis A Vaccines Aged Out No long er eligible based on patient's age to complete this topic Hepatitis B Vaccines Aged Out No long er eligible based on patient's age to complete this topic IPV Vaccines Aged Out No longer eligi ble based on patient's age to complete this topic MMR Vaccines Aged Out No longer eligi ble based on patient's age to complete this topic Meningococcal ACWY Vaccine Aged Out N o longer eligible based on patient's age to complete this topic Meningococcal B Vaccine Aged Out No l onger eligible based on patient's age to complete this topic RSV Immunization Patients Under 20 months Aged Out No longer eligible based on patient's age to complete this topic Varicella Vaccines Aged Out No longer eligible based on patient's age to complete this topic Procedures Procedure Name Priority Date/Time Associated Diagnosis Comments CULTURE URINE Routine 12/02/2024 10:28 AM EDT Pyuria from Last 3 Months Results * (ABNORMAL) Culture urine (12/02/2024 10:28 AM EDT) Culture, Urine >=100,000 CFU/mL Escherichia coli(A) JOHN 12/04/2024 8:02 AM EDT [facility] Urine Urine specimen from urethra / Unknown 12/02/2024 10:28 AM EDT 12/02/2024 2:27 PM EDT Narrative [facility] - 12/04/2024 8:02 AM EDT Normal skin/urogenital leonidas noted Organism Antibiotic Method Susceptibility Escherichia coli Amoxicillin/Clavulanate JOHN 4 ug/ml: Susceptible Escherichia coli Ampicillin/Sulbactam JOHN <=2 ug/ml: Susceptible Escherichia coli Piperacillin/Tazobactam JOHN <=4 ug/ml: Susceptible Escherichia coli Cefazolin (Urine) JOHN <=1 ug/ml: Susceptible Escherichia coli Cefoxitin JOHN <=4 ug/ml: Susceptible Escherichia coli Ceftazidime JOHN <=0.5 ug/ml: Susceptible Escherichia coli Ceftriaxone JOHN <=0.25 ug/ml: Susceptible Escherichia coli Cefepime JOHN <=0.12 ug/ml: Susceptible Escherichia coli Meropenem JOHN <=0.25 ug/ml: Susceptible Escherichia coli Amikacin JOHN 2 ug/ml: Susceptible Escherichia coli Gentamicin JOHN <=1 ug/ml: Susceptible Escherichia coli Ciprofloxacin JOHN <=0.06 ug/ml: Susceptible Escherichia coli Levofloxacin JOHN <=0.12 ug/ml: Susceptible Escherichia coli Nitrofurantoin JOHN <=16 ug/ml: Susceptible Escherichia coli Trimethoprim/Sulfamethoxazole JOHN <=20 ug/ml: Susceptible us [facility] MICROBIOLOGY - GENERAL ORDER BRISA Final Result [facility] [address] [place] [address], [place] [phone] from Last 3 Months Insurance MEDICARE [facility] Care Teams University President Relationship Specialty Start Date End Date Ric Flor MD [address] [place] [address] Dr Ronnie [place] PCP - General Family Medicine 12/03/24
--- OUTSIDE RECORDS SUMMARY | 2024-12-08 09:08 | XMS_ITS | Encounter Summary ---
Author Organization [facility] Address [address] [place] [address] Phone Care Team Providers Care Machinery Rigger Name Role Phone Ric Flor MD Primary Care Provider Syd Maria MD Unavailable +1- [phone] Encounter Details Date Type Department Care Team (Late st Contact Info) Description 06/08/2024 Procedure Pass [facility] Rad[facility] [address] [facility] 2nd [place] [address] Social History Tobacco Use Types Packs/Day Years [...] Visit [facility], [facility] [address] [facility], 11th [place] [address] Sylvie Shirley MD, MPH 45 [place] [address] [email or web address] 12/20/2024 11:00 AM EST Office Visit [facility], [facility] [address] [facility], 5th [place] [address] Kiley Holliday MD [address] [facility] [address] [place] [address] [email or web address] documented as of this encounter Visit Diagnoses Not on filedocumented in this encounter Care Teams Machinery Rigger Relationship Specialty Start Date End Date Ric Flor MD PCP - General Family Medicine 06/03/24 Syd Maria MD [address] [place] [address] Referring Physician 06/03/24 documented as of this encounter Additional Source Comments The information contained in this document represents components of the legal health record. It is not the complete legal health record.[facility]
--- OUTSIDE RECORDS SUMMARY | 2024-12-08 09:08 | XMS_ITS | Encounter Summary ---
Author Organization [facility] Address [address] [place] [address] Care Team Providers Care Dukey Rider Name Role Phone Ric Flor MD Primary Care Provider Encounter Details Date Type Department Care Team (Late st Contact Info) Description 12/02/[address] [facility] - Main Lab [address] [facility] [place] [id number] Katlyn Tate, PA [address] [facility] [address] [place] [address] Pyuria Social History Tobacco Use Types Packs/Day Years [...] on file documented as of this encounter Procedures Procedure Name Priority Date/Time Associated Diagnosis Comments CULTURE URINE Routine 12/02/2024 10:28 AM EDT Pyuria documented in this encounter Results * (ABNORMAL) Culture urine (12/02/2024 10:28 AM EDT) Culture, Urine >=100,000 CFU/mL Escherichia coli(A) JOHN 12/04/2024 8:02 AM EDT [facility] Urine Urine specimen from urethra / Unknown 12/02/2024 10:28 AM EDT 12/02/2024 2:27 PM EDT Narrative [facility] - 12/04/2024 8:02 [...] - GENERAL ORDER BRISA Final Result [facility] [address] [place] [address], documented in this encounter Visit Diagnoses Diagnosis Pyuria Other nonspecific finding on examination of urine documented in this encounter Care Teams Dukey Rider Relationship Specialty Start Date End Date Ric Flor MD [address] [place] [address] Dr Ronnie [place] PCP - General Family Medicine 12/03/24 documented as of this encounter
[2024-12-08 11:28] LABS: INTERNATIONAL NORM RATIO 1.6 (0.9-1.1); Prothrombin Time 18.8 SEC (10.9-12.4)
== END 2024-12-08 08:28 | disposition home or self-care (01) ==
LOC: HO.WFDLDS 08:27
PROVIDERS: Referring Provider Internal Medicine Medical Oncology; Visit Provider Physician Assistant Medical
DX: Z51.81 Encounter for therapeutic drug level monitoring (principal); Z79.01 Long term (current) use of anticoagulants
CPT/HCPCS: 36415; 85610

== ENCOUNTER 2024-12-15 08:20 | Outpatient (REF) | payer MEDICARE, OTHER, SELFPAY ==
--- OUTSIDE RECORDS SUMMARY | 2024-12-15 08:41 | XMS_ITS ---
Author Organization [facility] Address [address] [place] [address] Phone Care Team Providers Care Solid Surface Fabricator Name Role Phone Ric Flor MD Primary Care Provider Syd Maria MD Unavailable +1- [phone] Active Problems Problem Noted Date Diagnosed Date [...] FEW TIMES THE PT TOOK HERSELF TO [facility] TO BE EVALUATED. THE ONLY SX THAT THE PT FELT WAS BLOATING AND CRAMPING EVERYTIME SHE ATE. PT HAD TO UNDERGO A COLONOSCOPY WITCH SHOWED THAT THE PT HAD BLEEDING COMING FROM THE ASCENDING,DESCENDING, AND TRANSVERSE COLON. PT WAS LATER TRANSFERRED TO [facility] TO BE WATCHED CLOSELY. PT WAS THEN [...]
--- OUTSIDE RECORDS SUMMARY | 2024-12-15 08:42 | XMS_ITS | Encounter Summary ---
Author Organization [facility] Address [address] [place] [address] Phone Care Team Providers Care Fusion Analyst Name Role Phone Ric Flor MD Primary Care Provider Syd Maria MD Unavailable [phone]- [phone] Encounter Details Date Type Department Care Team (Late st Contact Info) Description 06/08/2024 Procedure Pass [facility] Imaging Department, [facility] [place], [place] [address] [facility], Floor [address]1 [place] [address] Social History Tobacco Use Types Packs/Day Years [...] Visit [facility], [facility] [address] [facility], 11th [place] [address] Sylvie Shirley MD, MPH [address] [place] [address] [email or web address] 12/20/2024 11:00 AM EST Office Visit [facility], [facility] [address] [facility], 5th [place] [address] Kiley Holliday MD [address] [facility] [address] [place] [address] [email or web address] documented as of this encounter Visit Diagnoses Not on filedocumented in this encounter Care Teams Fusion Analyst Relationship Specialty Start Date End Date Ric Flor MD PCP - General Family Medicine 06/03/24 Syd Maria MD [address] [place] [address] Referring Physician 06/03/24 documented as of this encounter Additional Source Comments The information contained in this document represents components of the legal health record. It is not the complete legal health record.[facility]
--- OUTSIDE RECORDS SUMMARY | 2024-12-15 08:42 | XMS_ITS | Patient Health Record ---
Author Organization [facility] Address [address] [place] [address] Care Team Providers Care Intake Manager Name Role Phone Syd Dhillon MD Primary Care Provider Un available Harsha Camara Unavailable [phone] Allergies Allergen (clinical drug ingredient) Drug/Non Drug [...] Problem Screening for malignant neoplasm of colon (051211741) Encounter for screening for malignant neoplasm of colon (Z12.11) Active confirmed Problem History of adenomatous polyp of colon (384804496) History of adenomatous polyp of colon (Z86.010) Active confirmed Problem Gastroesophageal reflux disease (064167635) Gastroesophageal reflux disease, esophagitis presence not specified (K21.9) Active confirmed Plan Of Treatment Future Test Test Name Order Date COLONOSCOPY 11/04/2011 COLONOSCOPY 07/16/2016 Insurance Providers Payer Name Payer Address Payer Phone Subscriber Number Group Number Insured Name Patient Relationship to Insured Coverage Start Date Coverage End Date MEDICARE OF [place] [address] [place] [id number] YUE Gardner ELVER Self - patient is the insured MED[employer] ATT[employer] CLAIMS [address] [place] [address] [id number] ELVER GARBER Self - patient is the insured Medical (General) History Medical History History ICD Code Colonoscopies in 2006 and in 2011--- Tubular adenomas removed in 2006 and in 11/2011; Cecal AVM's; diffuse diverticulosis; internal hemorrhoids Melanoma on RUE-surgery as below Hiatal hernia-EGD in 2006 Hypertension Asthma Denies [place],DM,CVA,renal disease Urinary retention-planning to see a urol ogist Diverticular bleed in 2009--at [facility] Depression Surgical History Surgery Date(Month/Year) Ovarian cyst Skin cancer surgery-basal ce ll x 4, and melanoma on RUE Rx'd with local excisions by Dr. Dietz
--- OUTSIDE RECORDS SUMMARY | 2024-12-15 08:42 | XMS_ITS | Clinical Summary ---
Author Organization [facility] Address [address] [place] [address] Care Team Providers Care Registered Pharmacist Name Role Phone Unavailable Primary Care Provider [...] dental caries Place in mouth once daily [place] with Prevident 5000 once daily before bed; spit excess, do not rinse.. 56 g 3 Active Active Problems Problem Noted Date Diagnosed Date Asthma 09/06/2024 Hypertension 09/06/2024 COPD (chronic obstructive pulmonary disease) Encounters Date Type Department Care Team Description 09/30/2024 11:00 AM EDT Office Visit [facility] [address] [place] [address] Josh Dougherty DDS from Last [...] Drug Screen 02/10/2024 Depression Annual Screen 02/10/2024 Iax-PLMRY-54 ( season) 2024 03/29/2021, 05/12/2020, 04/21/2020 Imm-Influenza [...] Health Maintenance Insurance [facility]ALTH SAFETY NET [facility] [id number]
--- OUTSIDE RECORDS SUMMARY | 2024-12-15 08:42 | XMS_ITS | Clinical Summary ---
Author Organization [facility] Address [address] [place] [address] Phone Care Team Providers Care Sales Account Executive Name Role Phone Ric Flor MD Primary Care Provider [phone] Encounters Date Type Department Care Team Description 12/02/2024 Lab Requisition [facility] - Main Lab 299 [facility] [place] [address] Katlyn Tate PA Pyuria from Last 3 Months Surgical History Surgery Date Site/Laterality Comments OTHER SURGICAL HISTORY PROCEDURE: ---- OTHER ----; COMMENT: moh's surgery x5, [facility] OVARIAN CYST REMOVAL PROCEDURE: [place] OVARIAN CYSTECTOMY UNI/BI; COMMENT: years ago COLONOSCOPY [...] 02/20/2017 DX:Allergic rh initis Asthma-COPD overlap syndrome ([facility] V24, [facility] V28) 02/20/2017 DX:Asthma-COPD overlap syndr ome (HCC) [...] Escherichia coli(A) JOHN 12/04/2024 8:02 AM EDT [facility] Urine Urine specimen from urethra / Unknown 12/02/2024 10:28 AM EDT 12/02/2024 2:27 PM EDT Narrative [facility] - 12/04/2024 8:02 AM [...] MICROBIOLOGY - GENERAL ORDER BRISA Final Result [facility] [address] [place] [address], [place] [phone] from Last 3 Months Insurance MEDICARE [facility] Care Teams Sales Account Executive Relationship Specialty Start Date End Date Ric Flor MD [address] [place] [address] Dr Ronnie [place] PCP - General Family Medicine 12/03/24
--- OUTSIDE RECORDS SUMMARY | 2024-12-15 08:42 | XMS_ITS | Encounter Summary ---
Author Organization [facility] Address [address] [place] [address] Phone Care Team Providers Care Tractor Trailer Moving Van Driver Name Role Phone Ric Flor MD Primary Care Provider Syd Maria MD Unavailable [phone]- [phone] Encounter Details Date Type Department Care Team (Late st Contact Info) Description 06/08/2024 Procedure Pass [facility] [address] [facility] 2nd [place] [address] Social History Tobacco Use Types Packs/Day Years [...] Visit [facility], [facility] [address] [facility], 11th [place] [address] Sylvie Shirley MD, MPH [address] [place] [address] [email or web address] 12/20/2024 11:00 AM EST Office Visit [facility], [facility] [address] [facility], 5th [place] [address] Kiley Holliday MD [address] [facility] [address] [place] [address] [email or web address] documented as of this encounter Visit Diagnoses Not on filedocumented in this encounter Care Teams Tractor Trailer Moving Van Driver Relationship Specialty Start Date End Date Ric Flor MD PCP - General Family Medicine 06/03/24 Syd Maria MD [address] [place] [address] Referring Physician 06/03/24 documented as of this encounter Additional Source Comments The information contained in this document represents components of the legal health record. It is not the complete legal health record.[facility]
--- OUTSIDE RECORDS SUMMARY | 2024-12-15 08:42 | XMS_ITS | Encounter Summary ---
Author Organization [facility] Address [address] [place] [address] Phone Care Team Providers Care Emr Specialist Name Role Phone Ric Flor MD Primary Care Provider Syd Maria MD Unavailable [phone]- [phone] Encounter Details Date Type Department Care Team (Late st Contact Info) Description 06/08/2024 Procedure Pass [facility], [facility] [place] [place] [address], [address] [place] [address] Social History Tobacco Use Types Packs/Day Years [...] Visit [facility], [facility] [address] [facility], 11th [place] [address] Sylvie Shirley MD, MPH [address] [place] [address] [email or web address] 12/20/2024 11:00 AM EST Office Visit [facility], [facility] [address] [facility], 5th [place] [address] Kiley Holliday MD [address] [facility] [address] [place] [address] [email or web address] documented as of this encounter Visit Diagnoses Not on filedocumented in this encounter Care Teams Emr Specialist Relationship Specialty Start Date End Date Ric Flor MD PCP - General Family Medicine 06/03/24 Syd Maria MD [address] [place] [address] Referring Physician 06/03/24 documented as of this encounter Additional Source Comments The information contained in this document represents components of the legal health record. It is not the complete legal health record.[facility]
--- OUTSIDE RECORDS SUMMARY | 2024-12-15 08:42 | XMS_ITS | Encounter Summary ---
Author Organization [facility] Address [address] [place] [address] Phone Care Team Providers Care Roving Frame Tender Name Role Phone Ric Flor MD Primary Care Provider Syd Maria MD Unavailable [phone]- [phone] Encounter Details Date Type Department Care Team (Late st Contact Info) Description 06/20/2024 Prep for Surgery [facility], [facility] [address] [facility], 11th [place] [address] Sylvie Shirley MD, MPH [address] [place] [address] [email or web address] Squamous cell cancer of skin of nose [...] Visit [facility], [facility] [address] [facility], [address]th [place] [address] Slyvie Shirley MD, MPH [address] [place] [address] [email or web address] 12/20/2024 11:00 AM EST Office Visit [facility], [facility] [address] [facility], 5th [place] [address] Kiley Holliday MD [address] [place] [address] [email or web address] documented as of this encounter Visit Diagnoses Diagnosis Squamous cell cancer of skin of nose- Primary documented in this encounter Care Teams Roving Frame Tender Relationship Specialty Start Date End Date Ric Flor MD PCP - General Family Medicine 06/03/24 Syd Maria MD [address] [place] [address] Referring Physician 06/03/24 documented as of this encounter Additional Source Comments The information contained in this document represents components of the legal health record. It is not the complete legal health record.[facility]
--- OUTSIDE RECORDS SUMMARY | 2024-12-15 08:42 | XMS_ITS | Encounter Summary ---
Author Organization [facility] Address [address] [place] [address] Phone Care Team Providers Care Lard Tub Washer Name Role Phone Ric Flor MD Primary Care Provider Syd Maria MD Unavailable [phone]- [phone] Encounter Details Date Type Department Care Team (Late st Contact Info) Description 07/11/2024 Procedure Pass [facility] [address] [place] [address] Social History Tobacco Use Types Packs/Day Years [...] 4:51 PM EDT Abbey Mata RN * [place] Suicide Severity Rating Scale (Screener/Recent Self-Report) Question [...] Visit [facility], [facility] [address] [facility], 11th [place] [address] Sylvie Shirley MD, MPH 45 [place] [address] [email or web address] 12/20/2024 11:00 AM EST Office Visit [facility], [facility] [address] [facility], 5th [place] [address] Kiley Holliday MD [address] [facility] [address] [place] [address] [email or web address] documented as of this encounter Visit Diagnoses Not on filedocumented in this encounter Care Teams Lard Tub Washer Relationship Specialty Start Date End Date Ric Flor MD PCP - General Family Medicine 06/03/24 Syd Maria MD [address] [place] [address] Referring Physician 06/03/24 documented as of this encounter Additional Source Comments The information contained in this document represents components of the legal health record. It is not the complete legal health record.[facility]
--- OUTSIDE RECORDS SUMMARY | 2024-12-15 08:42 | XMS_ITS | Encounter Summary ---
Author Organization [facility] Address [address] [place] [address] Care Team Providers Care Tread Builder Name Role Phone Ric Flor MD Primary Care Provider Encounter Details Date Type Department Care Team (Late st Contact Info) Description 12/02/2024 Lab Requisition [facility] Main Lab [address] [facility] [place] [id number] Katlyn Tate, [place] [address] [facility] [address] [place] [address] Pyuria Social History Tobacco Use Types Packs/Day [...] Escherichia coli(A) JOHN 12/04/2024 8:02 AM EDT [facility] Urine Urine specimen from urethra / Unknown 12/02/2024 10:28 AM EDT 12/02/2024 2:27 PM EDT Narrative [facility] - 12/04/2024 8:02 AM EDT Normal [...] MICROBIOLOGY - GENERAL ORDER BRISA Final Result [facility] [address] [place] [address], documented in this encounter Visit Diagnoses Diagnosis Pyuria Other nonspecific finding on examination of urine documented in this encounter Care Teams Tread Builder Relationship Specialty Start Date End Date Ric Flor MD [address] [place] [address] Dr Ronnie [place] PCP - General Family Medicine 12/03/24 documented as of this encounter
--- OUTSIDE RECORDS SUMMARY | 2024-12-15 08:42 | XMS_ITS | Encounter Summary ---
Author Organization [facility] Address [address] [place] [address] Phone Care Team Providers Care Jointer Operator Name Role Phone Ric Flor MD Primary Care Provider Syd Maria MD Unavailable [phone]- [phone] Encounter Details Date Type Department Care Team (Late st Contact Info) Description 06/08/2024 Procedure Pass [facility], [facility] [place] [place] [address] [facility], [address] [place] [address] Social History Tobacco Use Types Packs/Day Years [...] Visit [facility], [address] [facility], 11th [place] [address] Sylvie Shirley MD, MPH [address] [place] [address] [email or web address] 12/20/2024 11:00 AM EST Office Visit [facility], [address] [facility], 5th [place] [address] Kiley Holliday MD [address] [facility] [address] [place] [address] [email or web address] documented as of this encounter Visit Diagnoses Not on filedocumented in this encounter Care Teams Jointer Operator Relationship Specialty Start Date End Date Ric Flor MD PCP - General Family Medicine 06/03/24 Syd Maria MD [address] [place] [address] Referring Physician 06/03/24 documented as of this encounter Additional Source Comments The information contained in this document represents components of the legal health record. It is not the complete legal health record.[facility]
[2024-12-15 11:39] LABS: INTERNATIONAL NORM RATIO 3.9 (0.9-1.1); Prothrombin Time 46.3 SEC (11.2-13.5)
[2024-12-15 11:45] LABS: Anion Gap 12 (12-20); Blood Urea Nitrogen 9 mg/dL (9-16); Calcium 8.6 mg/dL (8.4-10.2); Carbon Dioxide 23 mmol/L (22-29); Chloride 106 mmol/L (96-108); Estimated Glomerular Filt Rate > 60; Potassium 3.4 mmol/L (3.3-5.1); Sodium 138 mmol/L (135-145)
== END 2024-12-15 08:21 | disposition home or self-care (01) ==
LOC: HO.WFDLDS 08:20
PROVIDERS: Internal Medicine Hypertension Specialist; Referring Provider Internal Medicine Medical Oncology; Visit Provider Physician Assistant Medical
DX: Z51.81 Encounter for therapeutic drug level monitoring (principal); E87.1 Hypo-osmolality and hyponatremia; Z79.01 Long term (current) use of anticoagulants
CPT/HCPCS: 36415; 80048; 85610

== ENCOUNTER 2024-12-22 10:57 | Outpatient (AMB) | payer MEDICARE, SELFPAY ==
--- OUTSIDE RECORDS SUMMARY | 2024-12-20 10:00 | XMS_ITS | Encounter Summary ---
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 Name Role Phone Ric Flor MD Primary Care Provider Syd Maria MD Unavailable [phone] Reason for Referral * Consultation (Within 2 weeks) - New Request Specialty Diagnoses / Procedures Referred By Juan Francisco t Referred To Contact Nutrition Perez Shirley MD, MPH [address] [place] [address] Phone: tel: fax: mailto:[email or web address] DF Parent [address] [place] [address] Referral ID Status Reason Start Date Expiration Date V isits Requested Visits Authorized [id number] New Request 12/20/2024 12/20/2025 1 1 Scheduling Instructions In the case of urgent referrals, please call Nutrition Services. * Consultation (Within 2 weeks) - New Request Specialty Diagnoses / Procedures Referred By Contac t Referred To Contact Audiology Perez Shirley MD, MPH [address] [place], [place] [address] Phone: tel: fax: mailto:[email or web address] [address] [phone] Phone: tel: Referral ID Status Reason Start Date Expiration Date V isits Requested Visits Authorized [id number] New Request 12/20/2024 12/20/2025 1 1 * MRI/CAT Scan - New Request Specialty Diagnoses / Procedures Referred By Contac t Referred To Contact Radiology Diagnoses Squamous cell cancer of skin of nose Procedures CT Neck Perez Shirley MD, MPH [address] [place] [address] Phone: tel: fax: mailto:[email or web address] Referral ID Status Reason Start Date Expiration Date V isits Requested Visits Authorized [id number] New Request 12/20/2024 1 1 * MRI/CAT Scan - New Request Specialty Diagnoses / Procedures Referred By Contac t Referred To Contact Radiology Diagnoses Squamous cell cancer of skin of nose Procedures CT Chest Perez Shirley MD, MPH [address] [place] [address] Phone: tel: fax: mailto:[email or web address] Referral ID Status Reason Start Date Expiration Date V isits Requested Visits Authorized [id number] New Request 12/20/2024 1 1 Encounter Details Date Type Department Care Team (Late st Contact Info) Description 12/20/2024 10:00 AM EST Office Visit [facility] [address] [facility] [facility] 11[address] [place] [address] Perez Shirley MD, MPH [address] [place] [address] [email or web address] Squamous cell cancer of skin [...] PM EDT documented as of this encounter Last Filed Vital Signs Vital Sign Reading Time Taken Comments Blood Pressure 125/77 12/20/2024 9:44 AM EST Pulse 98 12/20/2024 9:44 AM EST Temperature 36.4 C (97.6 F) 12/20/2024 9:37 AM EST Respiratory Rate 17 12/20/2024 9:37 AM EST Oxygen Saturation 97% 12/20/2024 9:44 AM EST Inhaled Oxygen Concentration - - Weight 52.4 kg (115 lb 8.3 oz) 12/20/2024 9:37 A M EST Height 151.2 cm (4' 11.53 ) 12/20/2024 9:[address] Body Mass Index 22.92 12/20/2024 9:37 AM EST documented in this encounter Progress Notes * Perez Shirley MD, MPH - 12/20/2024 10:00 AM EST Images from the original note were not included. [address] [place] [address] ?? [facility] Progress Note Date of Encounter: 12/20/2024 Name: Elver Hou Date of : 1940 Referring provider: Ric Flor Md [address] [place] [address] Drive [address] [place] [phone] PCP: Ric Flor MD [address] [place] [address] Drive [address] [facility] [phone] [facility] Team: Head and Neck Surgery: Perez Shirley MD MPH Medical Oncology: Kiley Holliday MD Dermatology: Latasha Almanza MD Radiation Oncology: Narendra Owens MD PhD [facility] Team: Radiation Oncology: Dr. Sanon Chief Complaint: Follow up after completion of treatment. History of Present Illness (for reference purposes only): Elver Hou is a 84 y.o. 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 Syd Maria) aborted after second stage due to extent of nasal cavity involvement. She is now s/p total rhinectomy and partial maxillectomy on 07/11/24. Path demonstrated pT4a disease. Deep margin read as positive but we did oneida down bone extensively in this area. She is s/p adjuvant XRT alone at [facility] completed 11/23/24. Interval History: She reports difficulty hearing bilaterally, crusting in the eyes, dentures not fitting well, fatigue, weakness, and weight loss. She has been working with [employer]. She has not had a nutrition consult. She has not been drinking Boost/Ensure routinely. Of note she did have issues with urinary retention during XRT requiring urology referral and temporary catheter. EORTC HN43 Patient Entered Questionnaire Responses - Details and trends available in Rooming and Encounter Summary 06/16/2024 4:23 PM 07/18/2024 12:41 PM 07/19/2024 10:47 AM 07/27/2024 11:08 AM 09/01/2024 4:20 PM 12/17/2024 3:45 PM MGB AMB DF EORTC QLQ H&N43 SCORES Problems with Wound Healin (Not at all) 0 (Not at all) 0 (Not at all) 0 (Not at all) 0 (Not at all) 0 (Not at all) Problems with Shoulder: 0 (Not at all) 0 (Not at all) 0 (Not at all) 0 (Not at all) 33 (A little) 0(Not at all) Problems with Teeth: 0 (Not at all) 0 (Not at all) 0 (Not at all) 0 (Not at all) 11 (Not at all) 44(A little) Problems Opening Mouth: 0 (Not at all) 0 (Not at all) 0 (Not at all) 0 (Not at all) 0 (Not at all) 33 (A little) Dry Mouth and Sticky Saliva: 0 (Not at all) 17 (Not at all) 50 (Quite a bit) 0 (Not at all) 0 (Not at all) 33 (A little) Swallowin (Not at all) 0 (Not at all) 0 (Not at all) 0 (Not at all) 8 (Not at all) 42 (A little) Social Eatin (Not at all) 8 (Not at all) 0 (Not at all) 0 (Not at all) 25 (A little) 67 (Quitea bit) Speech: 0 (Not at all) 0 (Not at all) 7 (Not at all) 0 (Not at all) 7 (Not at all) 33 (A little) Social Contact: 0 (Not at all) 67 (Quite a bit) 67 (Quite a bit) 0 (Not at all) 33 (A little) 67 (Quite a bit) Body Image: 33 (A little) 44 (A little) 56 (Quite a bit) 44 (A little) 56 (Quite a bit) 67 (Quite abit) Sexuality: 0 (Not at all) 0 (Not at all) 0 (Not at all) 0 (Not at all) 0 (Not at all) 0 (Not at all) Fear of Progression: 0 (Not at all) 33 (A little) 33 (A little) 17 (Not at all) 17 (Not at all) 33 (A little) Oncologic History: Oncology History Overview Note 83M with pmh of anxiety, COPD and asthma, GERD, melanoma of R arm (s/p excision 2007), PE (on warfarin), arthritis, and mod to poor diff SCC of nasal dorsum s/p Mohs 06/02/24 with positive margins, tumor invasion into nasal cavity and tumor depth to cartilage and muscle. 04/06/24: Nasal supratip- well to mod diff SCC, tumor extends to the base of the submitted tissue. 06/02/24: Mohs with Dr. Maria. Pre-op size (2.9 x 2.8) and final defect size (3.4 x 2.9) depth to cartilage and muscle. Upgraded to mod to poor diff on frozen sections (>2cm, invasion beyond fat and poor differentiation). First layer + down to muscle and through cartilage. The second stage was through and through the left nasal mucosa. Grossly positive plaques of nasal septum + SCC. Tumor extending grossly extending deep within nasal cavity. R nasal mucosa left intact as likely positive for SCC. All margins positive for tumor after 2 stages and reconstruction with Dr. Sachin Manzano was canceled due to extent of tumor invasion into the nasal cavity and likely need for rhinectomy, neck dissection and radiation. Mupirocin plus pressure dressing with a bolster was applied. Referred to [facility]. 06/16/24: [facility] consults with Dr. Holliday, Dr. Almanza and Dr. Owens 06/17/24: [facility] consult with Dr. Shirley 06/17/24: CT H/N/chest Squamous cell carcinoma of nose 06/16/2024 Initial Diagnosis Squamous cell cancer of skin of nose Past Medical, Family & Social History: below data was updated and reviewed. Allergies: Allergen Reactions Cat Dander Sneezing Latex Rash Past Medical History: Past Medical History: Diagnosis Date Advance directive discussed with patient 07/06/2024 Allergic rhinitis 02/20/2017 Anemia due to chronic blood loss 10/31/2011 RECORDED 10/31/2011 2:42PM BY VIOLA BARRAGAN, ANNOTATION/ADDENDUM Anxiety state 01/27/2013 Arthritis 2019 Asthma Basal cell carcinoma (BCC) of face 11/22/2021 Chest pain 10/31/2011 RECORDED 10/31/2011 2:41PM BY VIOLA BARRAGAN, ANNOTATION/ADDENDUM Chronic low back pain 06/11/2018 Chronic obstructive pulmonary disease 09/19/2021 Class 1 obesity 07/06/2024 Complication of procedure 04/19/2024 Difficult or painful urination 10/31/2011 IMPRESSION: 3+ LEUKOCYTES ON UA TODAY, COMPLETED BACTRIM 2 DAYS AGO, START CIPRO AND SEND CULTURE; RECORDED 10/31/2011 2:41PM BY VIOLA BARRAGAN, ANNOTATION/ADDENDUM Disorder of pigmentation 09/19/2021 Disorder of skin 09/19/2021 Diverticular disease of colon 10/31/2011 STORY: PT WAS SEEN IN OUR OFFICE 11/30/09 FOR RECTAL BLEEDING AND WAS REFERRED TO GI FOR AN EVALUATION. THAT EVENING EVERY TIME THE PT ATE SOMETHING SHE WOULD BE GOING TO THE BATHROOM TO HAVE A BM THAT WAS FILLED WITH BLOOD. AFTER A FEW TIMES THE PT TOOK HERSELF TO [facility] TO BE EVALUATED. THE ONLY SX THAT THE PT FELT WAS BLOATING AND CRAMPING EVERYTIME SHE ATE. PT HAD TO UNDERGO A COLONOSC Diverticulosis 06/07/20192011 Diverticulitis DVT (deep venous thrombosis) 07/06/2024 Erythema ab igne 04/14/2022 External hemorrhoids 01/27/2013 Hearing loss 01/27/2013 Hemangioma of skin and subcutaneous tissue 04/14/2022 Hemorrhage of colon 10/31/2011 STORY: STABLE/ STILL ANEMIC; RECORDED 10/31/2011 2:41PM BY VIOLA BARRAGAN, ANNOTATION/ADDENDUM Herpes zoster 2018 History of melanoma 05/03/2013 2008, Right arm, s/p removal Hypertensive disorder Insomnia 07/06/2024 Neoplasm of uncertain behavior of skin 09/19/2021 Pulmonary embolism 04/06/2024 Tachycardia 10/31/2011 RECORDED 10/31/2011 2:42PM BY VIOLA BARRAGAN, ANNOTATION/ADDENDUM Tobacco user 01/27/2013 RECORDED 01/27/2013 1:17PM BY ALEXANDRE SARABIA MA, ANNOTATION/ADDENDUM Tubular adenoma 06/07/201910/2016 CN diverticulosis, angiodysplasias, internal hemorrhoids,further colonoscopies on as needed basis Urinary tract infectious disease 05/03/2013 Vitamin D deficiency 06/07/2019 Past Surgical History: Past Surgical History: Procedure Laterality Date MAXILLECTOMY PARTIAL Bilateral 07/11/2024 Performed by Perez Shirley MD, MPH at [facility] OR RHINECTOMY Bilateral 07/11/2024 Performed by Perez Shirley MD, MPH at [facility] OR SKIN BIOPSY Family History: No family history on file. Social History: Social History Socioeconomic History Marital status: Single Spouse name: Not on file Number of children: Not on file Years of education: Not on file Highest education level: Not on file Occupational History Not on file Tobacco Use Smoking status: Former Smokeless tobacco: Never Substance and Sexual Activity Alcohol use: Yes Alcohol/week: 5.0 standard drinks of alcohol Types: 5 Glasses of wine per week Drug use: Not Currently Sexual activity: Not Currently Other Topics Concern Not on file Social History Narrative Not on file Current Medications: her medications were updated and reviewed in the [facility] chart. Current Outpatient Medications Ordered in [facility] Medication Sig acetaminophen (TYLENOL) 325 mg tablet Take 2 tablets (650 mg total) by mouth every 6 (six) hours. albuterol (VENTOLIN HFA) 90 mcg/actuation inhaler Inhale 1 puff into the lungs as needed for shortness of breath/dyspnea or wheezing. budesonide-formoterol (SYMBICORT) 160-4.5 mcg/actuation inhaler Inhale 2 puffs into the lungs. (Patient not taking: Reported on 07/27/2024) cetirizine (ZYRTEC) 10 mg capsule Take 10 mg by mouth daily as needed (allergies). cholecalciferol (VITAMIN D3) 2,000 unit tablet Take 2,000 Units by mouth daily. citalopram (CELEXA) 20 MG tablet Take 20 mg by mouth daily. clonazePAM (KLONOPIN) 0.5 MG tablet Take 0.5 mg by mouth 2 (two) times a day as needed for anxiety. dilTIAZem (CARDIZEM CD) 120 MG 24 hr capsule Take 120 mg by mouth daily. enoxaparin (LOVENOX) 40 mg/0.4 mL Syrg subcutaneous syringe fluticasone propionate (FLONASE) 50 mcg/actuation nasal spray 1 mcg/actuation gabapentin (NEURONTIN) 300 MG capsule Take 300 mg by mouth daily. ipratropium (ATROVENT) 42 mcg (0.06 %) nasal spray losartan (COZAAR) 25 MG tablet Take 0.5 tablets by mouth daily. montelukast (SINGULAIR) 10 mg tablet montelukast 10 mg tablet omeprazole (PRILOSEC) 20 MG capsule Take 20 mg by mouth daily. oxyCODONE 5 MG immediate release tablet Take 0.5-1 tablets (2.5-5 mg total) by mouth every 4 (four)hours as needed for pain (specific location in comments) (acute post-op pain). Partial fill ok polyethylene glycol (MIRALAX) 17 gram packet Take 17 g by mouth daily as needed for other (free text field) (severe constipation). sertraline (ZOLOFT) 50 MG tablet tamsulosin (FLOMAX) 0.4 mg Cap Take 0.4 mg by mouth nightly at bedtime. warfarin (COUMADIN) 2 MG tablet Take 2 mg by mouth as directed. 0.5 tablets by mouth 6 days weekly and 1 tablet on WIXELA INHUB 500-50 mcg/dose DISKUS 1 mcg/dose ?Physical Exam Vitals: 12/20/24 0944 BP: 125/77 Pulse: 98 Resp: Temp: SpO2: 97% General: She is well appearing in no acute distress. Ambulates on and off exam chair without difficulty. Voice: Normal, good projection, no roughness or breathiness Face Symmetrical movement, House-Brackmann I/ No skin lesions Parotid glands normal to palpation Eyes EOMI. Sclera anicteric, conjunctivae pink. Ears: Able to hear examiner in quiet room. Normal to external inspection Nose: Nasal defect healed with expected crusting which was debrided. Oral cavity No trismus Mucosa moist, no mass or lesion appreciated. Tongue mobility normal. Dentition: Unremarkable Oropharynx Tonsils symmetrical, uvula midline, palate elevates symmetrically. Mucosa normal, no mass or lesion appreciated Gag reflex intact. Neck The neck is soft to palpation, no lymphadenopathy or thyromegaly appreciated Shoulder shrug strong and symmetrical Respiratory The breathing is unlabored without stertor or stridor. Cardiovascular Extremities warm and well perfused without edema. Neurologic: She is alert and oriented x3. The mood is good. CN 2-12 grossly intact. Preoperative Photo: Postop: ECOG Performance Status: 1 = restricted in physically strenuous activity but ambulatory and able tocarry out light work Procedure: Flexible fiberoptic nasopharyngoscopy (from prior, for reference purposes only): Pre-Procedure Diagnosis: Nasal mass Post-Procedure Diagnosis: Same Indication: Abnormality seen, need better visualization ?Indirect mirror exam attempted and inadequate because: Patient has strong gag reflex? Procedure, risks, benefits and alternatives discussed with patient and verbal consent obtained. Flexible fiberoptic scope attached to video tower, equipment calibrated. The patient was seated appropriately for the procedure. Scope passed thru LEFT side of the nose Nose: Irregular mass arising from anterior septum/columella. Extends along nasal floor up towards lateral nasal wall/inferior turbinate. Posterior septum normal Scope passed through RIGHT sideof nose: Nose: Septum, nasal vault, turbinates normal appearing Nasopharynx: no masses. Fossa of Rosenmuller clear. Base of tongue: no masses. Lingual tonsils not enlarged or obstructive. Vallecula clear, no masses Posterior pharyngeal duggan clear, no lesions Piriform sinuses: no pooling of secretions. Epiglottis: normal size, no edema Arytenoids normal, no erythema True vocal cords: mobile, no lesions. Ventricles: clear, no masses False vocal cords: clear, no mass or lesions Posterior commissure normal, no thickening of the mucosa of the posterior commissure. Subglottis clear, no masses. Patient was observed for dyspnea and epistaxis after the procedure for 5 minutes. The findings werediscussed with the patient. Results: Images, Tests and Data Review Imaging: No new imaging Pathology: Results for orders placed or performed during the hospital encounter of 07/11/24 (from the past 8760 hours) Anatomic Pathology Narrative CASE: [id number] PATIENT: ELVER HOU Date: 1940 Sex: Female [facility] Department of Pathology [address] [place] [address] License No.: [id number] Property Controller: Dr. Mario Alberto Rich M.D., Ph.D. Physician: [...] Primary Tumor: pT4a Regional Lymph Nodes: pNX Impression/Plan: ? Elver Hou is a 84 y.o. 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 Syd Maria) aborted after second stage due to extent of nasal cavity involvement. She is now s/p total rhinectomy and partial maxillectomy on 07/11/24. Path demonstrated pT4a disease. Deep margin read as positive but we did oneida down bone extensively in this area. She is s/p adjuvant XRT alone at [facility] completed 11/23/24. Local team did not recommend adjuvant chemotherapy due to frailty. She returns after completing adjuvant XRT alone. She reports feeling OK but is struggling with poorappetite, fatigue. I spoke with her and her niece and we emphasized the importance of working on improving PO intake with higher calorie foods. I placed a referral to [facility] nutrition to help. A referral to [facility] audiology was also placed to assess her hearing function. We will also work on referral toa prosthetics service as she does not want to pursue operative nasal reconstruction. Plan: - FU 2 months for post-treatment scans - Nutrition consultation - Nasal saline spray q2h to nasal cavity - Prosthetic referral - [facility] Audiology for hearing evaluation Review of Systems, Physical Exam, and Assessment and Plan reviewed and/or performed on 12/20/2024 and there are no changes except as documented. I personally spent a total of 40 minutes on care for this patient on the date of the encounter. This includes [id number]-jc-[id number] time during the visit as well as non owdz-[id number]-[id number] time spent on chart review, documentation, and care coordination. This excludes time spent on separately billable services. No future appointments. Perez Shirley MD MPH FACS Otolaryngology-Head and Neck [facility] Head and Neck Oncology and Microvascular Reconstructive Surgery [facility] [phone] Packing Tractor Machine Operator of Otolaryngology-Head and Neck Surgery [employer] cc: Ric Flor MD [address] [place] [address] [place] [phone] / [facility] [phone] Ric Flor MD [address] / [facility] [phone] documented in this encounter Plan of Treatment Upcoming Encounters Date Type Department Care Team (Late st Contact Info) Description 12/20/2024 Procedure Pass [facility] Imaging Department, [facility], [place] [address] [facility], Floor [address] [place] [address] 12/20/2024 Procedure Pass [facility] Imaging Department, [facility], [place] [address] [facility], [facility] [address] [place] [address] 02/14/2025 10:40 AM EST Appointment [facility] Imaging Department, [facility], [place] [address] [facility], [address] [place] [address] Perez Shirley MD, MPH [address] [place] [phone] [email or web address] 02/14/2025 12:45 PM EST Nutrition Nutrition Department, [address] [address] Perez Shirley MD, MPH [address] [place] [phone] [email or web address] [place] [address] 02/14/2025 3:00 PM EST Office Visit [facility], [facility] [address], [address] [place] [address] Perez Shirley MD, MPH [address] [place] [phone] [email or web address] Scheduled Orders Name Type Priority Associated Diagnoses Orde r Schedule CT Chest Imaging Routine Squamous cell cancer of skin of nose Expected: 01/19/2025, Expires: 03/22/2025 CT Neck Imaging Routine Squamous cell cancer of skin of nose Expected: 01/19/2025, Expires: 03/22/2025 Scheduled Referrals Name Type Priority Associated Diagnoses Order Schedule Ambulatory referral to [facility] Audiology Outpatient Referral Routine Ordered: 12/20/2024 Ambulatory referral to [facility] Nutrition Outpatient Referral Routine Ordered: 12/20/2024 documented as of this encounter Visit Diagnoses Diagnosis Squamous cell cancer of skin of nose- Primary documented in this encounter Care Teams Wood Furniture Assembler Relationship Specialty Start Date End Date Ric Flor MD PCP - General Family Medicine 06/03/24 Syd Maria MD [address] [place] [phone] Referring Physician 06/03/24 documented as of this encounter Additional Source Comments The information contained in this document represents components of the legal health record. It is not the complete legal health record.[facility]
--- NOTE | 2024-12-22 11:18 | MHC.PC.OV ---
Vital Signs 12/22/24 11:30 Height 5 ft 1 in Weight 133 lb 2 oz BMI 25.2 BP 94/68 Blood Pressure Location Lt brachial Position Sitting Respiration 12 Pulse 124 H Pulse Source Pulse Oximeter Temp 97.4 F Temp Source Oral Pulse Oximetry (%) 96 Oxygen Delivery Method Room Air Intake Visit Reasons: visiting nurse assoc. letter of approval from dr Mejia Note: patient is scheduled to follow up with pcp for in home visiting nurse referral to help with daily living care, wound care and possible flotation operator services. patient would also like to discuss meditcation changes, and audiology referral due to decline in hearing. patient is no longer takin gabipentine due to LE swelling and fatuige. patient would also like folic acid daily so that it is included in her medication packs provided by [facility]. Set Illustrator Required: No Allergies Seasonal Allergies Allergy (Mild, Verified 12/22/24 11:26) runny nose latex Allergy (Verified 12/22/24 11:26) rash Medication List - Last Reconciled 12/22/24 by Ric Flor MD albuterol sulfate 90 mcg/actuation 2 puffs inhalation Q8H PRN budesonide-formoterol 160-4.5 mcg/actuation inhalation cetirizine (Zyrtec) 10 mg PO DAILY PRN 90 days cholecalciferol (vitamin D3) 50 mcg PO DAILY 30 days citalopram 20 mg PO DAILY 90 days clonazepam 0.5 mg PO BID PRN cyanocobalamin (vitamin B-12) 1,000 mcg PO DAILY folic acid 1 mg PO DAILY omeprazole 20 mg PO DAILY 30 days tamsulosin 0.4 mg PO BEDTIME 90 days warfarin 2 mg See Protocol PO DAILY 30 days Tobacco use date assessed: 08/29/24 Dental Screening Dental Screen Date: 08/29/24 J[facility]ON visiting nurse assoc. letter of approval from dr FERREIRA Details 84 y/o female presents to f/u chronic conditions. Requesting referral to help with daily living care, wound care and possible PRODUCT INTRODUCTION MANAGER services. Blood pressure today 94/68, 124p. She is no longer on any blood pressure meds. Pt notes she has been unable to eat well and is losing weight. Currently on warfarin for hx of DVT. PENDING SALE TO [facility] Medical History (Updated 12/22/24 @ 12:11 by Ric Flor MD) LFT elevation Swelling of both lower extremities Pulmonary emboli (~01/2022) Skin cancer History of COVID-19 Essential hypertension Chronic allergic rhinitis Hyponatremia Asthma-COPD overlap syndrome Surgical History History of nasal surgery (~05/2024) History of esophagogastroduodenoscopy (EGD) History of colonoscopy Family History Mother Breast cancer Father Prostate CA Stroke Social History Household Members: None Housing: House Housing Other:: mobile home- friend to be moving in Alcohol intake: current Alcohol intake frequency: 0-2 drinks per day Patient Tobacco Use Status: Former Tobacco user Tobacco use type: Cigarette Cigarette Packs Per Day: 1.0 Years Smoked: 10 years Packs Per Year: 0 e-Cigarette/Vaping Use: Never Used Second Hand Smoke Exposure: No service: No Current occupational status: retired 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 - 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 - thinks her COPD r/t Current occupational exposures/hazards: No Cognitive needs: No Hearing needs: No Vision needs: No Questionnaire Thrive Questionnaire Date Thrive assessed: 05/11/24 I am a: Patient What is your living situation today?: I have a steady place to live Within the past 12 months, did the food you bought not last and you didn't have the money to get more?: Sometimes True Within the past 12 months, did you worry whether your food would run out before you got money to buy more?: Sometimes True Do you have trouble paying for medicines?: No Do you have trouble getting transportation to medical appointments?: No Do you have trouble paying your heating and electricity bill?: No Do you have trouble taking care of your child, family member or friend?: No Do you have trouble with day-to-day activities such as bathing, preparing meals, shopping, managing finances, etc.?: No Are you currently unemployed and looking for a job?: No Are you interested in more education?: No Please select the resources that you would like help with: None Currently or been in a relationship where the following occur: No concerns reported THRIVE Score: 2 ROEL-7 AMB Questionnaire ROEL-7 Date ROEL - 7 assessed: 05/17/24 Source: Developed by Drs. Harsha Hood, Diana Mendoza, Kristopher Villa and colleagues, with an educational johnie from [employer]. Review of Systems Const Denies chills, Denies fatigue, Denies fever(s), Denies headache(s) and Denies weakness ENT Denies dizziness and Denies headache(s) Card Denies dyspnea Resp Denies cough, Denies dyspnea, Denies wheezing and Denies other (shortness of breath) Musc Denies numbness and Denies tingling Neuro Denies dizziness, Denies headache(s), Denies numbness, Denies tingling and Denies weakness Psych Denies anxiety and Denies depression Endo Denies fatigue Aller/Immun Denies wheezing Physical exam (Primary Care) Vital Signs: Last Vital Signs Temp 97.4 F 12/22/24 11:30 Pulse 124 H 12/22/24 11:30 Resp 12 12/22/24 11:30 BP 94/68 12/22/24 11:30 Pulse Ox 96 12/22/24 11:30 Oxygen Delivery Method Room Air 12/22/24 11:30 BMI result Body Mass Index 25.2 Tobacco/Smoking Status: Tobacco use Status Tobacco use date assessed 08/29/24 12/22/24 11:19 Patient Tobacco Use Status Former Tobacco user 12/22/24 11:19 Tobacco use type Cigarette 12/22/24 11:19 e-Cigarette/Vaping Use Never Used 12/22/24 11:19 Thrive Assessment: Date of Thrive Assessment Date Thrive assessed 05/11/24 12/22/24 11:19 Currently or been in a relationship where the following occur: No concerns reported Const General: well developed; No acute distress Nutritional Appearance: well nourished Orientation/consciousness: patient oriented x3 HENMT Head: Yes normocephalic and Yes atraumatic Eyes General: appearance normal, both eyes and all related structures Pupils: Equal, round and reactive pupils present EOM: EOMs intact bilaterally Resp Effort & Inspection: normal respiratory effort Auscultation: clear to auscultation bilaterally Cardio Rate: tachycardic Rhythm: regular rhythm Heart sounds: S1 normal heart sound present, S2 normal heart sound present, no gallops, no murmurs and no rubs Neuro General: patient oriented x3 and gait normal Cranial nerves: Yes Equal, round and reactive pupils present Psych Affect: normal affect Coding Level of Care Code Est Pt Level 5 (64178) Diagnoses Essential hypertension I10 Tachycardia R00.0 History of DVT (deep vein thrombosis) Z86.718 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 current use of anticoagulant Z79.01 Hypotension I95.9 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 Assessment & Plan Assessment & Plan (1) Essential hypertension: Code(s): I10 - Essential (primary) hypertension Category: Medical Plan: No longer on any blood pressure medications and in fact she is hypotensive See below (2) Tachycardia: Code(s): R00.0 - Tachycardia, unspecified Category: Medical Plan: As above (3) History of DVT (deep vein thrombosis): Code(s): Z86.718 - Personal history of other venous thrombosis and embolism Category: Medical Plan: Currently on warfarin Will try switching to Eliquis If we are unable to switch to Eliquis we may try to get an INR machine at home so she will not have to travel for frequent testing (4) snf current use of anticoagulant: Code(s): Z79.01 - 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 (current) use of anticoagulants Category: Medical Plan: As above (5) Hypotension: Code(s): I95.9 - Hypotension, unspecified Category: Medical Plan: Hypertensive and tachycardic. Mentation is at baseline and she is not in acute distress. She has not been able to eat well and is losing weight Start fludrocortisone Work at regular meals and good hydration. Will ask VNA to help with this (6) Squamous cell carcinoma of nasal cavity: Code(s): C30.0 - Malignant neoplasm of nasal cavity Category: Medical Plan: S/p surgical removal of nose and nasal tissue Having difficulty with bandaging and wound care/nasal irrigation and cleaning. Will have VNA help manage this at home. Plan Patient needs VNA for home safety evaluation, wound and nasal care, medication management, physical therapy and help with ADLs as she is having difficulty with feeding, hygiene, transfers, toileting, dressing etc. She will follow-up in 1 month for hypotension with tachycardia and weight loss. Will also ensure that she has been able to switch to Eliquis - if not will try to get an INR machine for home. Will ensure she has VNA services. Starting fludrocortisone 3 times a week Orders: Referrals [facility]Hospice Referral C30.0 - Malignant neoplasm of nasal cavity, I26.94 - Multiple subsegmental thrombotic pulmonary emboli without acute cor pulmonale, I82.409 - Acute embolism and thrombosis of unspecified deep veins of unspecified lower extremity, R53.81 - Other malaise, Z79.01 - snf (current) use of anticoagulants Medications: New apixaban (Eliquis) 5 mg PO BID 180 tabs 2RF 90 days fludrocortisone 0.1 mg PO 3XW 13 tabs 2RF 30 days Changed From folic acid 1 mg PO DAILY 90 tabs 0RF To folic acid 1 mg PO DAILY 90 tabs 3RF 90 days
[2024-12-22 11:30] VITALS: BP 94/68; PULSE 124; RESP 12; TEMP 36.3; O2SAT 96; BMI 25.2
--- OUTSIDE RECORDS SUMMARY | 2024-12-22 13:40 | XMS_ITS ---
Author Organization [facility] Address [address] [facility] [address] [place] [address] Phone Care Team Providers Care Fbi Profiler Name Role Phone Ric Flor MD Primary Care Provider Syd Maria MD Unavailable [phone]- [phone] Active Problems Problem Noted Date Diagnosed Date Cancer of nasal cavities 07/11/2024 Class 1 obesity 07/06/2024 DVT (deep venous thrombosis) 07/06/2024 Pulmonary embolism 04/06/2024 Generalized anxiety disorder 05/25/2023 Squamous cell carcinoma of nose 06/24/2022 Basal cell carcinoma (BCC) of face 11/22/2021 Chronic obstructive pulmonary disease 09/19/2021 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 THE ONLY SX THAT THE PT FELT WAS BLOATING AND CRAMPING EVERYTIME SHE ATE. PT HAD TO UNDERGO A COLONOSCOPY WITCH SHOWED THAT THE PT HAD BLEEDING COMING FROM THE ASCENDING,DESCENDING, AND TRANSVERSE COLON. PT WAS LATER TRANSFERRED TO [facility] TO BE WATCHED CLOSELY. PT WAS THEN [...]
--- OUTSIDE RECORDS SUMMARY | 2024-12-22 13:41 | XMS_ITS | Encounter Summary ---
Author Organization [facility] Address [address] [facility] [address] [place] [address] Phone Care Team Providers Care Neuroscience Specialist Name Role Phone Ric Flor MD Primary Care Provider Syd Maria MD Unavailable [phone]- [phone] Encounter Details Date Type Department Care Team (Late st Contact Info) Description 12/20/2024 Telephone [facility], [facility] [place] [address] [facility], 11th [place] [address] William Niño, [address] [address] [email or web address] Social History Tobacco Use Types Packs/Day Years [...] PM EDT documented as of this encounter Progress Notes * William Niño CNP - 12/20/2024 2:53 PM EST I tried contacting Dagmar Gonzalez to share with her below contact information for nose prosthetic for Noris as Dr. Shirley refers Noris to [facility]. Toll-Free [employer] Phone Unfortunately, I was unable to get in contact with Noris and left her a VM with my contact information should he have any questions or concerns. William Niño, JAIRO-C Nurse Practitioner Head & Neck Surgical Oncology [facility] [email or web address] [phone] documented in this encounter Plan of Treatment Upcoming Encounters Date Type Department Care Team (Late st Contact Info) Description 12/20/2024 Procedure Pass [facility] Imaging Department, [facility], [place] [address] [facility], Floor [address]1 [place] [address] 12/20/2024 Procedure Pass [facility] Imaging Department, [facility], [place] [address] [facility], Floor [address] [place] [address] 02/14/2025 10:40 AM EST Appointment [facility] Imaging Department, [facility], [place] [address] [facility], Floor [address] [place] [address] Sylvie Shirley MD, MPH [address] [place] [address] Ana@[email or web address] 02/14/2025 12:45 PM EST Nutrition Nutrition Department, [facility] [address] [place], [place] [phone] Sylvie Shirley MD, MPH [address] [place] [address] Ana@[email or web address] Ansley Og LDN 15 [place] [address] 02/14/2025 3:00 PM EST Office Visit [facility], [facility] [place] [address] [place] [address], 11th [place] [address] Sylvie Shirley MD, MPH [address] [place] [address] [email or web address] documented as of this encounter Visit Diagnoses Not on filedocumented in this encounter Care Teams Neuroscience Specialist Relationship Specialty Start Date End Date Ric Flor MD PCP - General Family Medicine 06/03/24 Syd Maria MD [address] [place] [address] Referring Physician 06/03/24 documented as of this encounter Additional Source Comments The information contained in this document represents components of the legal health record. It is not the complete legal health record.[facility]
--- OUTSIDE RECORDS SUMMARY | 2024-12-22 13:41 | XMS_ITS | Encounter Summary ---
Author Organization [facility] Address [address] [place] [address] Phone Care Team Providers Care Candy Feeder Name Role Phone Ric Flor MD Primary Care Provider Syd Maria MD Unavailable [phone]- [phone] Encounter Details Date Type Department Care Team (Late st Contact Info) Description 07/11/2024 Procedure Pass [facility] Periop [address] [place] [address] Social History Tobacco Use Types Packs/Day Years [...] Risk Indicated 07/11/2024 4:51 PM EDT Abbey Mata, RN * [place] Suicide Severity Rating Scale (Screener/Recent Self-Report) Question Answer Date of Assessment Author 1. Wish to be (Past 1 Month) No 025 4:51 PM EDT Abbey Mata, RN 2. Non-Specific Active Suici natalie Thoughts (Past 1 Month) No 07/11/2024 4:51 PM EDT Abbey Mata, RN 6. Suicidal Behavior (Lifetime) No 4:51 PM EDT Abbey Mata, RN documented as of this encounter Plan of Treatment Upcoming Encounters Date Type Department Care Team (Late st Contact Info) Description 12/20/2024 Procedure Pass [facility] Imaging Department, [facility], [place] [address] [facility], Floor [address] [place] [address] 12/20/2024 Procedure Pass [facility] Imaging Department, [facility], [place] [address] [facility], [address] [place] [address] 02/14/2025 10:40 AM EST Appointment [facility] Imaging Department, [facility], [place] [address] [facility], [address] [place] [address] Sylvie Shirley MD, MPH [address] [place] [phone] [email or web address] 02/14/2025 12:45 PM EST Nutrition Nutrition Department, [address] [address] Sylvie Shirley MD, MPH [address] [place] [phone] [email or web address] Ansley Og LDN [address] [place] [address] 02/14/2025 3:00 PM EST Office Visit [facility], [address], [address] [place] [address] Sylvie Shirley MD, MPH [address] [place] [phone] [email or web address] documented as of this encounter Visit Diagnoses Not on filedocumented in this encounter Care Teams Candy Feeder Relationship Specialty Start Date End Date Ric Flor MD PCP - General Family Medicine 06/03/24 Syd Maria MD [address] [place] [address] Referring Physician 06/03/24 documented as of this encounter Additional Source Comments The information contained in this document represents components of the legal health record. It is not the complete legal health record.[facility]
--- OUTSIDE RECORDS SUMMARY | 2024-12-22 13:41 | XMS_ITS | Encounter Summary ---
Author Organization [facility] Address [address] [place] [address] Phone Care Team Providers Care Direct Care Specialist Name Role Phone Ric Flor MD Primary Care Provider Syd Maria MD Unavailable [phone]- [phone] Encounter Details Date Type Department Care Team (Late st Contact Info) Description 06/08/2024 Procedure Pass [facility], [facility] [place], [place] [address] [facility], Floor [address]1 [place] [address] Social History Tobacco Use Types Packs/Day Years [...] st Contact Info) Description 12/20/2024 Procedure Pass [facility] Imaging Department, [facility], [place] [address] [facility], Floor [address] [place] [address] 12/20/2024 Procedure Pass [facility] Imaging Department, [facility], [place] [address] [facility], Floor [address] [place] [address] 02/14/2025 10:40 AM EST Appointment [facility] Imaging Department, [facility], [place] [address] [facility], Floor [address]1 [place] [address] Sylvie Shirley MD, MPH [address] [place] [address] [email or web address]@[email or web address] 02/14/2025 12:45 PM EST Nutrition Nutrition Department, [address] [address] Sylvie Shirley MD, MPH [address] [place] [phone] [email or web address] Ansley Og LDN [address] [place] [address] 02/14/2025 3:00 PM EST Office Visit [facility], [address], [address] [place] [address] Sylvie Shirley MD, MPH [address] [place] [address] [email or web address] documented as of this encounter Visit Diagnoses Not on filedocumented in this encounter Care Teams Direct Care Specialist Relationship Specialty Start Date End Date Ric Flor MD PCP - General Family Medicine 06/03/24 Syd Maria MD [facility], [facility] [address] Referring Physician 06/03/24 documented as of this encounter Additional Source Comments The information contained in this document represents components of the legal health record. It is not the complete legal health record.[facility]
--- OUTSIDE RECORDS SUMMARY | 2024-12-22 13:41 | XMS_ITS | Encounter Summary ---
Author Organization [facility] Address [address] [place] [address] Phone Care Team Providers Care Milling Supervisor Name Role Phone Ric Flor MD Primary Care Provider Syd Maria MD Unavailable [phone]- [phone] Encounter Details Date Type Department Care Team (Late st Contact Info) Description 06/08/2024 Procedure Pass [facility] Imaging Department, [facility] [place], [place] [address] [facility], Floor [address] [place] [address] Social History Tobacco Use Types Packs/Day Years [...] Info) Description 12/20/2024 Procedure Pass [facility] Imaging Department, [facility], [place] [address] [facility], Floor [address] [place] [address] 12/20/2024 Procedure Pass [facility] Imaging Department, [facility], [place] [address] [facility], Floor [address] [place] [address] 02/14/2025 10:40 AM EST Appointment [facility] Imaging Department, [facility], [place] [address] [facility], Floor [address] [place] [address] Sylvie Shirley MD, MPH [address] [place] [phone] Ana@[email or web address] 02/14/2025 12:45 PM EST Nutrition Nutrition Department, [address] [address] Sylvie Shirley MD, MPH [address] [place] [phone] [email or web address] Ansley Og LDN [address] [place] [address] 02/14/2025 3:00 PM EST Office Visit [facility], [address], [address] [place] [address] Sylvie Shirley MD, MPH [address] [place] [phone] [email or web address] documented as of this encounter Visit Diagnoses Not on filedocumented in this encounter Care Teams Milling Supervisor Relationship Specialty Start Date End Date Ric Flor MD PCP - General Family Medicine 06/03/24 Syd Maria MD [facility] [address] Referring Physician 06/03/24 documented as of this encounter Additional Source Comments The information contained in this document represents components of the legal health record. It is not the complete legal health record.[facility]
--- OUTSIDE RECORDS SUMMARY | 2024-12-22 13:41 | XMS_ITS | Encounter Summary ---
Author Organization [facility] Address [address] [place] [address] Phone Care Team Providers Care Cost Control Specialist Name Role Phone Ric Flor MD Primary Care Provider Syd Maria MD Unavailable [phone]- [phone] Encounter Details Date Type Department Care Team (Late st Contact Info) Description 06/08/2024 Procedure Pass [facility] [address] [place] [address] Social History Tobacco Use Types Packs/Day Years [...] st Contact Info) Description 12/20/2024 Procedure Pass [facility] Imaging Department, [facility], [place] [address] [facility], Floor [address] [place] [address] 12/20/2024 Procedure Pass [facility] Imaging Department, [facility], [place] [address] [facility], Floor [address] [place] [address] 02/14/2025 10:40 AM EST Appointment [facility] Imaging Department, [facility], [place] [address] [facility], Floor [address] [place] [address] Sylvie Shirley MD, MPH [address] [place] [address] [email or web address] 02/14/2025 12:45 PM EST Nutrition Nutrition Department, [address] [address] Sylvie Shirley MD, MPH [address] [place] [phone] Ana@[email or web address] Ansley Og LDN [address] [place] [address] 02/14/2025 3:00 PM EST Office Visit [facility], [address], [address] [place] [address] Sylvie Shirley MD, MPH [address] [place] [phone] [email or web address] documented as of this encounter Visit Diagnoses Not on filedocumented in this encounter Care Teams Cost Control Specialist Relationship Specialty Start Date End Date Ric Flor MD PCP - General Family Medicine 06/03/24 [place] [address] [place] [address] Referring Physician 06/03/24 documented as of this encounter Additional Source Comments The information contained in this document represents components of the legal health record. It is not the complete legal health record.[facility]
--- OUTSIDE RECORDS SUMMARY | 2024-12-22 13:41 | XMS_ITS | Encounter Summary ---
Author Organization [facility] Address [address] [place] [address] Care Team Providers Care Rn Corrections Name Role Phone Ric Flor MD Primary Care Provider Encounter Details Date Type Department Care Team (Late st Contact Info) Description 12/02/[address] [facility] - Main Lab 299 [facility] [place] [id number] Katlyn Tate, PA [address] [facility] [address] [place] [address] Pyuria Social History Tobacco Use Types Packs/Day Years Used Date Smoking Tobacco: Former Cigarettes 1 Q uit: 05/17/1983 Smokeless Tobacco: Never Alcohol [...] Escherichia coli(A) JOHN 12/04/2024 8:02 AM EDT [facility] ([facility]) [facility] Urine Urine specimen from urethra / Unknown 12/02/2024 10:28 AM EDT 12/02/2024 2:27 PM EDT Narrative [facility] - 12/04/2024 8:02 AM [...] MICROBIOLOGY - GENERAL ORDER BRISA Final Result [facility] [address] [place] [address], documented in this encounter Visit Diagnoses Diagnosis Pyuria Other nonspecific finding on examination of urine documented in this encounter Care Teams Rn Corrections Relationship Specialty Start Date End Date Ric Flor MD [address] [place] [address] Dr Ronnie [place] PCP - General Family Medicine 12/03/24 documented as of this encounter
--- OUTSIDE RECORDS SUMMARY | 2024-12-22 13:41 | XMS_ITS | Encounter Summary ---
Author Organization [facility] Address [address] [facility] [address] [place] [address] Phone Care Team Providers Care Gage Maker Name Role Phone Ric Flor MD Primary Care Provider Syd Maria MD Unavailable [phone]- [phone] Encounter Details Date Type Department Care Team (Late st Contact Info) Description 06/20/2024 Prep for [facility], [facility] [address] [facility], 11th [place] [address] Sylvie Shirley MD, MPH [address] [place] [address] [email or web address] Squamous cell cancer of skin of [...] st Contact Info) Description 12/20/2024 Procedure Pass [facility] Imaging Department, [facility] [place], [place] [address] [facility], Floor [address]1 [place] [address] 12/20/2024 Procedure Pass [facility] Imaging Department, [facility], [place] [address] [facility], Floor [address] [place] [address] 02/14/2025 10:40 AM EST Appointment [facility] Imaging Department, [facility], [place] [address] [facility], Floor [address]1 [place] [address] Sylvie Shirley MD, MPH [address] [place] [address] Ana@[email or web address] 02/14/2025 12:45 PM EST Nutrition Nutrition Department, [address] [address] Sylvie Shirley MD, MPH [address] [place] [address] Ana@[email or web address] Ansley Og, BENJA [address] [place] [address] [email or web address] 02/14/2025 3:00 PM EST Office [facility], [address], [address] [place] [address] Sylvie Shirley MD, MPH [address] [place] [address] [email or web address]@[email or web address] documented as of this encounter Visit Diagnoses Diagnosis Squamous cell cancer of skin of nose- Primary documented in this encounter Care Teams Gage Maker Relationship Specialty Start Date End Date Ric Flor MD PCP - General Family Medicine 06/03/24 Syd Marai MD [address] [place] [address] Referring Physician 06/03/24 documented as of this encounter Additional Source Comments The information contained in this document represents components of the legal health record. It is not the complete legal health record.[facility]
--- OUTSIDE RECORDS SUMMARY | 2024-12-22 13:41 | XMS_ITS | Clinical Summary ---
Author Organization 299 [facility] Address [address] [place] [address] Phone Care Team Providers Care Lasting Room Machine Operator Name Role Phone Ric Flor MD Primary Care Provider [phone] Encounters Date Type Department Care Team Description 12/02/2024 Lab Requisition [facility] - Main Lab 299 [facility] [place] [address] Katlyn Tate PA Pyuria from Last 3 Months Surgical History Surgery Date Site/Laterality Comments OTHER SURGICAL HISTORY PROCEDURE: ---- OTHER ----; COMMENT: moh's surgery x5, [facility] OVARIAN CYST REMOVAL PROCEDURE: [place] OVARIAN CYSTECTOMY UNI/BI; COMMENT: years ago COLONOSCOPY [...] 02/20/2017 DX:Allergic rh initis Asthma-COPD overlap syndrome ([facility] V24, [facility] V28) 02/20/2017 DX:Asthma-COPD overlap syndr ome [...] Escherichia coli(A) JOHN 12/04/2024 8:02 AM EDT [facility] Urine Urine specimen from urethra / Unknown 12/02/2024 10:28 AM EDT 12/02/2024 2:27 PM EDT Narrative [facility] - 12/04/2024 8:02 AM EDT [...] MICROBIOLOGY - GENERAL ORDER BRISA Final Result [facility] HOSPITAL LAB [address] [place] [address], [place] [phone] from Last 3 Months Insurance MEDICARE [facility] Care Teams Lasting Room Machine Operator Relationship Specialty Start Date End Date Ric Flor MD [address] [place] [address] Dr Ronnie [place] PCP - General Family Medicine 12/03/24
--- OUTSIDE RECORDS SUMMARY | 2024-12-22 13:41 | XMS_ITS | Clinical Summary ---
Author Organization [facility] Address [address] [facility] [address] [place] [address] Phone Care Team Providers Care Vba Developer Name Role Phone Ric Flor MD Primary Care Provider Syd Maria MD Unavailable [phone] Allergies Active Allergy Reactions Criticality Noted Date [...] total) by mouth every 6 (six) hours. Active Active Problems Problem Noted Date Diagnosed [...] 12/14/2014 History of melanoma 05/03/2013 Overview (06/14/2024): 2007, Right arm, s/p removal Malignant melanoma 05/03/2013 [...] FEW TIMES THE PT TOOK HERSELF TO [facility] TO BE EVALUATED. THE ONLY SX THAT THE PT FELT WAS BLOATING AND CRAMPING EVERYTIME SHE ATE. PT HAD TO UNDERGO A COLONOSCOPY WITCH SHOWED THAT THE PT HAD BLEEDING COMING FROM THE ASCENDING,DESCENDING, AND TRANSVERSE COLON. PT WAS LATER TRANSFERRED TO [facility] TO BE WATCHED CLOSELY. 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92 12/20/2024 9:37 AM EST Plan of Treatment Upcoming Encounters Date Type Department Care Team (Late st Contact Info) Description 12/20/2024 Procedure Pass [facility] Imaging Department, [facility], [place] [address] [facility], Floor [address]1 [place] [address] 12/20/2024 Procedure Pass [facility] Imaging Department, [facility], [place] [address] [facility], [address] [place] [address] 02/14/2025 10:40 AM EST Appointment [facility] Imaging Department, [facility], [place] [address] [facility], [address] [place] [address] Sylvie Shirley MD, MPH [address] [place] [address] [email or web address] 02/14/2025 12:45 PM EST Nutrition Nutrition Department, [facility] [address] [place] [address] Sylvie Shirley MD, MPH [address] [place] [address] [email or web address] Ansley Og LDN [address] [place] [phone] 02/14/2025 3:00 PM EST Office Visit [facility], [facility] [address] [place] [address], 11th [place] [address] Sylvie Shirley MD, MPH [address] [place] [address] [email or web address] Health Maintenance Due Date Last Done Comments DEPRESSION SCREENING 1953 ZOSTER VACCINES (1 of 2) 1960 OSTEOPOROSIS SCREENING INITIAL (ONE-TIME) 2006 RSV VACCINE (1 - 1-dose 75+ series) 2016 INFLUENZA VACCINE (#1) 2024 , 01/20/2019, 11/13/2017, Additional history exists COVID-19 VACCINE ( season) 2024 03/29/2021, 05/12/2020, 04/21/2020 BLOOD PRESSURE 06/19/2025 12/20/2024 CREATININE LEVEL 07/12/2025 07/12/2024, 07/10/2024 POTASSIUM LEVEL 07/12/2025 07/12/2024, 07/10/2024 Adult Td,Tdap Booster 10/06/2032 10/06/2022, 012 PNEUMOCOCCAL VACCINES (50+ years) Completed 06/03/2023, 04/21/2014, 03/01/2009 HEPATITIS A VACCINES Aged Out No long er eligible based on patient's age to complete this topic HIB VACCINES Aged Out No longer eligi ble based on patient's age to complete this topic IPV VACCINES Aged Out No longer eligi ble [...] Date/Time Associated Diagnosis Comments BASIC METABOLIC PANEL (BMP) Routine 07/12/2024 4:10 AM EDT from Last 3 Months or Most Recently Relevant to Health Maintenance Results * (ABNORMAL) Basic metabolic panel (07/12/2024 4:10 AM EDT) SODIUM 134(L) 136 - 145 mmol/L [facility] POTASSIUM 4.2 3.4 - 5.1 mmol/L [facility] CHLORIDE 99 98 - 107 mmol/L [facility] CO2 26 22 - 31 mmol/L [facility] BUN 7 6 - 23 mg/dL [facility] CREATININE 0.59 0.50 - 1.20 mg/dL [facility] Comment: GLUCOSE 141(H) 70 - 100 mg/dL [facility] CALCIUM 8.1(L) 8.8 - 10.7 mg/dL [facility] EGFR 90 >59 mL/min/1.[address] [facility] Comment: Estimated glomerular filtration rate calculated using the CKD-EPI refit equation. ANION GAP 9 7 - 17 mmol/L [facility] Blood 07/12/2024 4:10 AM EDT 07/12/2024 5:11 AM EDT [facility] Mandeep Shirley MD, MPH LAB BLOOD BKR OR DERABLES Final Result Performing Organization Address City/State/[facility] Co de Phone Number [facility] [address] [place] [address] from Last 3 Months or Most Recently Relevant to Health Maintenance Insurance MEDICARE PART A & B Member Subscriber Plan / Payer (Ef fective 2007-Present) Name:Noris Hou Member ID:[id number] Relation to Subscriber:Self Name:Noris Hou Subscriber ID:[id number] Payer ID:[id number] Group ID:Not on file Type:Medicare Address: [facility] [employer] [facility] [employer] [facility]. [address] [place] [address] [employer] [address] [place], [place] [address]B MEDIC[place] PART A & [place] [id number] [employer] SU[address] [place], [place] [address] MEDICARE PART A & B [employer] MED[employer] SUPPLEMENT MEDICARE PART A & B [employer] MEDEX SUPPLEMENT MEDICARE PART A & B [employer] MEDEX SUPPLEMENT Member Subscriber Plan / Payer ( fective 2006-Present) Name:Noris Hou Relation to Subscriber:Self Name:Noris Hou Payer ID:[id number] (NAIC) Type:Indemnity Address: [address] MEDICARE PART A & B [employer] MEDEX SUPPLEMENT MEDICARE PART A & B [employer] MEDEX SUPPLEMENT [address] [place], [place] [address]B MEDICARE PART A & B [employer] MEDEX SUPPLEMENT [facility] MEDICARE PART A & B [facility] MEDEX SUPPLEMENT [facility] [address] [facility] [place] Advance Directives For more information, please contact: [phone] (9AM - 5PM [facility], Thursday-Thursday) Documents on File Type Date Recorded Patient Surgery Scheduler Expl anation Healthcare Proxy 07/11/2024 * Full Code (Latest Code Status on File) Date Activated Date Inactivated Comments 07/11/2024 1:25 PM Question Answer Comments Code Status Confirmed With: Patient Care Teams Vba Developer Relationship Specialty Start Date End Date Ric Flor MD PCP - General Family Medicine 06/03/24 Syd Maria MD [address] [place] [address] Referring Physician 06/03/24 Additional Source Comments The information contained in this document represents components of the legal health record. It is not the complete legal health record.[facility]
--- OUTSIDE RECORDS SUMMARY | 2024-12-22 13:41 | XMS_ITS | Encounter Summary ---
Author Organization [facility] Address [address] [place] [address] Phone Care Team Providers Care Manager Quality Systems Name Role Phone Ric Flor MD Primary Care Provider Syd Maria MD Unavailable [phone]- [phone] Reason for Visit * Reason Onset Date Comments ACO Care Coordination 12/19/2024 Encounter Details Date Type Department Care Team (Late st Contact Info) Description 12/19/2024 Telephone [facility], [facility] [address] [facility], 11th [place] [address] Ansley Johnston, PATRICE [address] [place] [address] [email or web address] ACO Care Coordination Social History Tobacco Use Types Packs/Day Years [...] as of this encounter Progress Notes * Ansley Johnston RN - 12/19/2024 3:45 PM EST I called Dagmar and let her know that Dr. Shirley said that Noris should follow up with him but does not need to see Dr. Holliday. Dagmar was asking if the visit could be virtual- I told her that she should see Dr. Shirley in personso that he can examine her. They can discuss the frequency for future appts at the visit. She verbalized understanding. documented in this encounter Plan of Treatment Upcoming Encounters Date Type Department Care Team (Late st Contact Info) Description 12/20/2024 Procedure Pass [facility] Imaging Department, [facility], [place] [address] [facility], [facility] [address] [place] [address] 12/20/2024 Procedure Pass [facility] Imaging Department, [facility], [place] [address] [facility], [facility] [address] [place] [address] 02/14/2025 10:40 AM EST Appointment [facility] Imaging Department, [facility], [place] [address] [facility], [facility] [address] [place] [address] Sylvie Shirley MD, MPH [address] [place] [address] [email or web address] 02/14/2025 12:45 PM EST Nutrition Nutrition Department, [facility] [address] [place] [address] Sylvie Shirley MD, MPH [address] [place] [address] [email or web address] Ansley Og LDN [address] [place] [phone] 02/14/2025 3:00 PM EST Office Visit [facility], [facility] [address] [facility], 11th [place] [address] Sylvie Shirley MD, MPH [address] [place] [address] [email or web address] documented as of this encounter Visit Diagnoses Not on filedocumented in this encounter Care Teams Manager Quality Systems Relationship Specialty Start Date End Date Ric Flor MD PCP - General Family Medicine 06/03/24 Syd Maria MD [address] [place] [address] Referring Physician 06/03/24 documented as of this encounter Additional Source Comments The information contained in this document represents components of the legal health record. It is not the complete legal health record.[facility]
--- OUTSIDE RECORDS SUMMARY | 2024-12-22 13:41 | XMS_ITS | Encounter Summary ---
Author Organization [facility] Address [address] [place] [address] Phone Care Team Providers Care Fisheries Officer Name Role Phone Ric Flor MD Primary Care Provider Syd Maria MD Unavailable [phone]- [phone] Encounter Details Date Type Department Care Team (Late st Contact Info) Description 06/08/2024 Procedure Pass [facility] Imaging Department, [facility], [place] [address] [facility], Floor [address] [place] [address] Social History Tobacco Use Types Packs/Day Years [...] st Contact Info) Description 12/20/2024 Procedure Pass [facility] Imaging Department, [facility], [place] [address] [facility], Floor [address] [place] [address] 12/20/2024 Procedure Pass [facility] Imaging Department, [facility], [place] [address] [facility], [address] [place] [address] 02/14/2025 10:40 AM EST Appointment [facility] Imaging Department, [facility], [place] [address] [facility], [address] [place] [address] Sylvie Shirley MD, MPH [address] [place] [address] [email or web address] 02/14/2025 12:45 PM EST Nutrition Nutrition Department, [address] [address] Sylvie Shirley MD, MPH [address] [place] [address] [email or web address] [email or web address] [facility] Ansley Og LDN [address] [place] [address] 02/14/2025 3:00 PM EST Office Visit [facility], [address], [address] [place] [address] Sylvie Shirley MD, MPH [address] [place] [address] [email or web address] documented as of this encounter Visit Diagnoses Not on filedocumented in this encounter Care Teams Fisheries Officer Relationship Specialty Start Date End Date Ric Flor MD PCP - General Family Medicine 06/03/24 Syd Maria MD [facility] [address] [address] Referring Physician 06/03/24 documented as of this encounter Additional Source Comments The information contained in this document represents components of the legal health record. It is not the complete legal health record.[facility]
--- OUTSIDE RECORDS SUMMARY | 2024-12-22 13:41 | XMS_ITS | Clinical Summary ---
Author Organization [facility] Address [address] [place] [address] Care Team Providers Care Riveting Machine Operator Name Role Phone Unavailable Primary [...] dental caries Place in mouth once daily [place] with Prevident 5000 once daily before bed; spit excess, do not rinse.. 56 g 3 Active Active Problems Problem Noted Date Diagnosed Date Asthma 09/06/2024 Hypertension 09/06/2024 COPD (chronic obstructive pulmonary disease) Encounters Date Type Department Care Team Description 09/30/2024 11:00 AM EDT Office Visit [facility] [address] [place] [address] Josh Dougherty DDS from Last [...] Drug Screen 02/10/2024 Depression Annual Screen 02/10/2024 [id number] ( season) 2024 03/29/2021, 05/12/2020, 04/21/2020 Imm-Influenza [...] Health Maintenance Insurance [facility] SAFETY [facility] [id number]
--- OUTSIDE RECORDS SUMMARY | 2024-12-22 13:41 | XMS_ITS | Patient Health Record ---
Author Organization [facility] Address [address] [place] [address] Care Team Providers Care Latin Professor Name Role Phone Syd Dhillon MD Primary Care Provider Un available Harsha Camara Unavailable [phone] Allergies Allergen (clinical drug ingredient) Drug/Non Drug [...] Problem Screening for malignant neoplasm of colon (935702901) Encounter for screening for malignant neoplasm of colon (Z12.11) Active confirmed Problem History of adenomatous polyp of colon (108325887) History of adenomatous polyp of colon (Z86.010) Active confirmed Problem Gastroesophageal reflux disease (546414605) Gastroesophageal reflux disease, esophagitis presence not specified (K21.9) Active confirmed Plan Of Treatment Future Test Test Name Order Date COLONOSCOPY 11/04/2011 COLONOSCOPY 07/16/2016 Insurance Providers Payer Name Payer Address Payer Phone Subscriber Number Group Number Insured Name Patient Relationship to Insured Coverage Start Date Coverage End Date MEDICARE OF [place] [address] [place] [id number] YUE Gardner ELVER Self - patient is the insured MEDEX ATTN CLAIMS [address] [place] [address] [phone] [id number] ELVER GARBER Self - patient is the insured Medical (General) History Medical History History ICD Code Colonoscopies in 2006 and in 2011--- Tubular adenomas removed in 2006 and in 11/2011; Cecal AVM's; diffuse diverticulosis; internal hemorrhoids Melanoma on RUE-surgery as below Hiatal hernia-EGD in 2006 Hypertension Asthma Denies VT,DM,CVA,renal disease Urinary retention-planning to see a urol ogist Diverticular bleed in 2009--at [facility] Depression Surgical History Surgery Date(Month/Year) Ovarian cyst Skin cancer surgery-basal ce ll x 4, and melanoma on RUE Rx'd with local excisions by Dr. Dietz
--- OUTSIDE RECORDS SUMMARY | 2024-12-22 13:41 | XMS_ITS | Data Portability ---
Author Organization [facility], Main Office Address [address] [facility] [facility] [address] [place] [address] Care Team Providers Care Scientologist Name Role Phone GRACIELA MILLER Urologist [phone] ABDIEL LOZANO Mechanical Engineering Specialist [phone] URBAN PRIDE Special Procedures Nurse HUMBERTO SINGH Chrome Plater Helper RICARDO HUGHES Chiropractor [facility] Physical Therapist DENIS MARCOS Primary Care Provider Assessment No assessment recorded. Plan of Treatment Reminders Order Date Submit Date Provider Last Modified By Organization Details Last Modified Time Details Appointments None recorded. Lab HbA1c (hemoglob in A1c), blood 2018 019 [place] [facility] (Centralized Electronic Ordering - All Locations), Patient Can Go To The Location Of Their Choice, [id number] 0 09:38:13 BMP, serum or plasma 2018 019 [place] [facility] (Centralized Electronic Ordering - All Locations), Patient Can Go To The Location Of Their Choice, [id number] 0 09:38:13 lipid panel, serum 2018 019 [place] [facility] (Centralized Electronic Ordering - All Locations), Patient Can Go To The Location Of Their Choice, [id number] 0 09:38:13 magnesium , serum or plasma 2018 019 TIMOTHY [facility] (Centralized Electronic Ordering - All Locations), Patient Can Go To The Location Of Their Choice, 9 15:24:53 CK (creatine kinase), total, serum [...] 15:24:52 CMP, serum or plasma 2017 [facility]), Patient Can Go To The Location Of Their Choice, 11:56:02 Referral spine center referral - patient in 2017, MRI showed crowding L2 nerve root on the left, having worsenign sx of sciatic pain, low back pain, leg pains bilateral ly. 2018 [facility], [address] [place] [address], [place], [address], 17:23:40 physical therapist referral - At risk for falling 2017 [facility], [address] [place], [address], 8 16:26:43 urologist referral - pt has not seen urology in 2 years or more and wants to have consultat ion w/ urologist rather than PROCESS LINE OPERATOR 2017 018 scott Crane MD, [address], [place], [address], 8 13:35:13 Procedures None recorded. Surgeries None recorded. Imaging XR, lumbar spine - chronic low back pain, worsening s/p fall in february [id number] 019 [facility], [address] [place], [address], 9 10:29:46 XR, sacrum + coccyx - s/p fall in february, hx low back arthritis . pain worsening 2018 019 [facility], [address] [place], [address], 9 10:29:44 Medication Orders clorazepa te dipotassi um 3.75 mg tablet 2017 018 [facility]FACE [id number], [address] [place], [address], 8 11:18:58 tamsulosi n 0.4 mg capsule 2017 018 [facility], [address] [place], [address], 8 13:01:14 clorazepa te dipotassi um 3.75 mg tablet 2017 018 [facility]FACE [id number], [address] [place], [address], 8 12:05:21 Patient TargetsNo targets recorded. Patient Instructions Encounter Date Encounter Id Patient Instructions Last Modified By Organization Details Last Modified Time 11/13/2017 [id number] anxiety disorder: care instructions [email or web address] Not available 11/13/2017 11:18:44 call or return for worsening or concerns. [email or web address] Not available 11/13/2017 11:13:19 I have reviewed the note and agree with the assessment and plan of care. dolores Not available 11/13/2017 12:41:01 12/18/2017 [id number] preventing falls: care instructions [email or web address] Not available [...] medication. [email or web address] Not available 12/18/2017 13:20:44 06/11/2018 [id number] low back pain: exercises jthabet Not available 06/11/2018 13:24:20 call or return for worsening or concerns. [email or web address] Not available 06/11/2018 13:22:08 01/20/2019 [id number] preventing falls: care instructions [email or web address] Not available 01/20/2019 10:20:59 call or return for woraening or concerns. [email or web address] Not available 01/20/2019 10:20:56 Reviewed the risks and benefits of care home opiate use, OUD discussed with the patient. Reviewed the risks and benefits of other non-opioid pain therapies. Reviewed caution with driving, fall risk, treatment for constipation. Patient verbalizes understanding of risk and benefits, and of OUD. [email or web address] Not available 01/20/2019 09:46:37 Reason for Referral Urologist Referral for Incom plete emptying of urinary bladder pt has not seen urology in 2 years or more and wants to have consultation w/ urologist rather than PROCESS LINE OPERATOR Referring Physician: Ricardo Dhillon, Internal Medicine, Encounter [...] Go To The Location Of Their Choice, [id number] 06/14/2018 15:24:52 06/15/1906/14/2018 magne sium, serum or [...] Go To The Location Of Their Choice, [id number] 06/14/2018 15:24:53 06/15/1906/14/2018 CK (crea yue kinas e), total , serum CK,total only 75 U/L (0-190 ) Not Available [facility] (Centralized Electronic Ordering - All Locations) Patient Can Go To The Location Of Their Choice, [id number] 06/14/2018 15:24:54 06/15/1906/14/2018 TSH, serum or plasm [...] a CT abdome n and pelvis of 3/26/2 018 FINDIN GS: No bone lesion s [...] ce of an acute proces s. WSN: [id number] Dictat ed By: Delonte Barrios MD Dictat ed Date/T erlinda: 10:26 a Review ed By: Sophie AGUILA, Delonte Guardado Signed By: Delonte Barrios MD Signed Date/T erlinda: 10:26 am Transc ribed By: PASTORA Transc ribed Date/T erlinda: 10:24 am Patien t Class: Outpat ient [facility] (Outpt Imaging) [address] [place], [address], 06/15/2018 15:07:23 06/15/19 19 06/14/2018 XR, lumba [...] ce of an acute proces s. WSN: [id number] Dictat ed By: Delonte Barrios MD Dictat ed Date/T erlinda: 10:26 a Review ed By: Delonte Barrios MD Signed By: Delonte Barrios MD Signed Date/T erlinda: 10:26 am Transc ribed By: PASTORA Transc ribed Date/T erlinda: 10:24 am Patien t Class: Outpat ient [facility] (Outpt Imaging) [address] [place], [address], 06/15/2018 15:07:23 Result Notes Documentation Provider Name [...] no evidence of an acute process. WSN: [id number] Dictated By: Rocael Barrios MD Dictated Date/Time: 06/14/18 10:26 a Reviewed By: Rocael Barrios MD Signed By: Rocael Barrios MD Signed Date/Time: 06/14/18 10:26 am Transcribed By: PASTORA Transcribed Date/Time: 06/14/18 10:24 am Patient Class: Outpatient Denis Marcos [facility] [address], [place], [address], [facility] 06/15/2018 12:48:36 Xr, Lumbar Spine : Lumbar [...] no evidence of an acute process. WSN: [id number] Dictated By: Rocael Barrios MD Dictated Date/Time: 06/14/18 10:26 a Reviewed By: Rocael Barrios MD Signed By: Rocael Barrios MD Signed Date/Time: 06/14/18 10:26 am Transcribed By: CSGrace Transcribed Date/Time: 06/14/18 10:24 am Patient Class: Outpatient Denis Marcos [facility] [address], [place], [address], [facility] 06/15/2018 12:48:36 Problems Name Problem SNOMED Code Status Onset Date Resolution Date Notes Provider Name and Address Organization Details Recorded Time Impacted odilia 95657378 Completed 09/17/2016 Becky rosario [facility] 7 17:00:46 Hyponatr emia 02497920 Completed 09/04/2017 Dilshad Hall MD [address], [place], [address], [facility] 8 06:00:03 Dermatit is Completed 09/17/2016 Becky rosario [facility] 7 17:00:48 Dysuria 22462156 Completed 09/17/2016 Becky rosario [facility] 7 17:01:13 Insomnia 983511563 Active [place] Aziza [facility] 6 11:38:21 Advance directiv e discusse d with patient 495883894 Completed 09/17/2016 Becky rosario [facility] 7 17:01:07 Polyp of colon 35194612 Active [place] Az[facility] 6 11:38:21 Active or passive immuniza tion Completed 200908/23/2013 RECORDED 03/01/19 10 9:56AM BY PILLO Masters NP, OFFICE VISIT [facility] 6 11:38:22 Active or passive immuniza tion Completed 200909/15/2013 RECORDED 03/01/19 10 9:56AM BY PILLO Masters NP, OFFICE VISIT [facility] 6 11:38:22 Active or passive immuniza tion Completed 200909/16/2013 RECORDED 03/01/19 10 9:56AM BY PILLO Masters NP, OFFICE VISIT [place] Aziza [facility] 6 11:38:22 Anemia due to chronic blood loss 908401001 Completed 201108/23/2013 RECORDED 10/31/19 12 2:42PM BY NICKY WOODS ON/ADDEN DUM [place] [facility] 6 11:38:21 Screenin g for malignan t neoplasm of breast Completed 201108/23/2013 RECORDED 10/31/19 12 2:41PM BY NICKY WOODS ON/ADDEN DUM Becky Norton [facility] 7 13:35:13 Chest pain 85656135 Completed 201108/23/2013 RECORDED 10/31/19 12 2:41PM BY NICKY WOODS ON/ADDEN DUM [facility] 6 11:38:22 Divertic ular disease of colon 828967829 Completed 201108/23/2013 STORY: PT WAS SEEN IN [...] COLON. PT WAS LATER TRANSFER RED TO [facility] TO BE WATCHED CLOSELY. PT WAS THEN PLACED ON A LIQUID DIET UNTIL THE TIME WHERE SHE COULD TOLERATE SOLID FOOD WITH OUT PASSING A BM THAT WAS BLOODY. MEDICATI ON HAS BEEN RECONSIL ED WITH THE PT AND SHE WILL F/U WITH MGD 12/21/09 .; RECORDED 10/31/19 12 2:41PM BY NICKY WOODS ON/ADDEN DUM Michelle rosario [facility] 6 11:38:21 Hemorrha ge of colon 91808402 Completed 201108/23/2013 STORY: STABLE/ STILL ANEMIC; RECORDED 10/31/19 12 2:41PM BY NICKY WOODS ON/ADDEN DUM Michelle rosario [facility] 6 11:38:22 Divertic ulitis of colon 016774020 Active 2011 Becky rosario [facility] 7 17:00:37 Dysuria 32915183 Completed 201108/23/2013 IMPRESSI ON: 3+ LEUKOCYT ES ON UA TODAY, COMPLETE D BACTRIM 2 DAYS AGO, START CIPRO AND SEND CULTURE; RECORDED 10/31/19 12 2:41PM BY NICKY WOODS ON/ADDEN DUM Becky rosario [facility] 7 17:01:13 Essentia l hyperten julisa 27298794 Completed 201108/23/2013 RECORDED 10/31/19 12 2:41PM BY NICKY WOODS ON/AMILCAREN TORIE rosario [facility] 7 17:01:17 Hypo-osm olality and or hyponatr emia 405222728 Completed 201108/23/2013 RECORDED 10/31/19 12 2:41PM BY NICKY WOODS ON/ADDEN DUM Michelle rosario [facility] 6 11:38:21 Examinat ion for suspecte d mental disorder Completed 201108/23/2013 RECORDED 10/31/19 12 2:41PM BY NICKY WOODS ON/ADDEN DUM Michelle Degutis null, [facility] 6 11:38:22 Tachycar wesley 3641624 Completed 201108/23/2013 RECORDED 10/31/19 12 2:42PM BY NICKY WOODS ON/ADDEN DUM Michelle Degutis null, [facility] 6 11:38:22 Vaginiti s and vulvovag initis Completed 201108/23/2013 IMPRESSI ON: VAGINAL ITCHING AFTER COMPLETI NG ANTIBIOT ICS; RECORDED 10/31/19 12 2:42PM BY NICKY WOODS ON/ADDEN DUM Michelle Degutis abraham [facility] 6 11:38:22 Anemia due to chronic blood loss 179284619 Completed 201109/15/2013 RECORDED 10/31/19 12 2:42PM BY NICKY WOODS ON/ADDEN DUM Michelle Degutis null, [facility] 6 11:38:21 Chest pain 39738276 Completed 201109/15/2013 RECORDED 10/31/19 12 2:41PM BY NICKY WOODS ON/ADDEN DUM Michelle Degutis null, [facility] 6 11:38:22 Divertic ular disease of colon 931469454 Completed 201109/15/2013 STORY: PT WAS SEEN IN [...] COLON. PT WAS LATER TRANSFER RED TO [facility] TO BE WATCHED CLOSELY. PT WAS THEN PLACED ON A LIQUID DIET UNTIL THE TIME WHERE SHE COULD TOLERATE SOLID FOOD WITH OUT PASSING A BM THAT WAS BLOODY. MEDICATI ON HAS BEEN RECONSIL ED WITH THE PT AND SHE WILL F/U WITH MGD 12/21/09 .; RECORDED 10/31/19 12 2:41PM BY NICKY WOODS ON/ADDEN DUM Michelle rosario [facility] 6 11:38:21 Hemorrha ge of colon 79435158 Completed 201109/15/2013 STORY: STABLE/ STILL ANEMIC; RECORDED 10/31/19 12 2:41PM BY NICKY WOODS ON/ADDEN DUM Michelle Antonioutedouard rosario [facility] 6 11:38:22 Dysuria 73919098 Completed 201109/15/2013 IMPRESSI ON: 3+ LEUKOCYT ES ON UA TODAY, COMPLETE D BACTRIM 2 DAYS AGO, START CIPRO AND SEND CULTURE; RECORDED 10/31/19 12 2:41PM BY NICKY WOODS ON/ADDEN DUM Becky rosario [facility] 7 17:01:13 Hypo-osm olality and or hyponatr emia 947570569 Completed 201109/15/2013 RECORDED 10/31/19 12 2:41PM BY NICKY WOODS ON/ADDEN DUM Michelle Degutedouard rosario [facility] 6 11:38:21 Examinat ion for suspecte d mental disorder Completed 201109/15/2013 RECORDED 10/31/19 12 2:41PM BY NICKY WOODS ON/ADDEN DUM Michelle Degutedouard rosario [facility] 6 11:38:22 Tachycar wesley 6649266 Completed 201109/15/2013 RECORDED 10/31/19 12 2:42PM BY NICKY WOODS ON/ADDEN DUM Michelle Degutis null, [facility] 6 11:38:22 Vaginiti s and vulvovag initis Completed 201109/15/2013 IMPRESSI ON: VAGINAL ITCHING AFTER COMPLETI NG ANTIBIOT ICS; RECORDED 10/31/19 12 2:42PM BY NICKY WOODS ON/ADDEN DUM Michelle Degutis null, [facility] 6 11:38:22 Anemia due to chronic blood loss 855177935 Completed 201109/16/2013 RECORDED 10/31/19 12 2:42PM BY NICKY WOODS ON/ADDEN DUM Michelle Degutis null, [facility] 6 11:38:21 Chest pain 42412468 Completed 201109/16/2013 RECORDED 10/31/19 12 2:41PM BY NICKY WOODS ON/ADDEN DUM Michelle Degutis null, [facility] 6 11:38:22 Divertic ular disease of colon 347370595 Completed 201109/16/2013 STORY: PT WAS SEEN IN [...] COLON. PT WAS LATER TRANSFER RED TO [facility] TO BE WATCHED CLOSELY. PT WAS THEN PLACED ON A LIQUID DIET UNTIL THE TIME WHERE SHE COULD TOLERATE SOLID FOOD WITH OUT PASSING A BM THAT WAS BLOODY. MEDICATI ON HAS BEEN RECONSIL ED WITH THE PT AND SHE WILL F/U WITH MGD 12/21/09 .; RECORDED 10/31/19 12 2:41PM BY NICKY WOODS ON/ADDEN DUM Michelle Degutedouard null, [facility] 6 11:38:21 Hemorrha ge of colon 03919795 Completed 201109/16/2013 STORY: STABLE/ STILL ANEMIC; RECORDED 10/31/19 12 2:41PM BY NICKY WOODS ON/ADDEN DUM Michelle Ervin null, [facility] 6 11:38:22 Dysuria 59810471 Completed 201109/16/2013 IMPRESSI ON: 3+ LEUKOCYT ES ON UA TODAY, COMPLETE D BACTRIM 2 DAYS AGO, START CIPRO AND SEND CULTURE; RECORDED 10/31/19 12 2:41PM BY NICKY WOODS ON/ADDEN DUM Becky Norton [place] abraham, [facility] 7 17:01:13 Hypo-osm olality and or hyponatr emia 753195315 Completed 201109/16/2013 RECORDED 10/31/19 12 2:41PM BY NICKY WOODS ON/ADDEN DUM Michelle Ervin null, [facility] 6 11:38:21 Examinat ion for suspecte d mental disorder Completed 201109/16/2013 RECORDED 10/31/19 12 2:41PM BY NICKY WOODS ON/ADDEN DUM Michelle Antonioutedouard null, [facility] 6 11:38:22 Tachycar wesley [id number] Completed 201109/16/2013 RECORDED 10/31/19 12 2:42PM BY NICKY WOODS ON/ADDEN DUM Michelle Ervin null, [facility] 6 11:38:22 Vaginiti s and vulvovag initis Completed 201109/16/2013 IMPRESSI ON: VAGINAL ITCHING AFTER COMPLETI NG ANTIBIOT ICS; RECORDED 10/31/19 12 2:42PM BY NICKY WOODS ON/ADDSONALI VOGT Michelle Degutis null, [facility] 6 11:38:22 Screenin g for malignan t neoplasm of colon Completed 201208/23/2013 RECORDED 04/30/19 13 2:37PM BY TEA HANDY MA, ANNOTATI ON/ADDEN DUM Michelle Degutis null, [facility] 6 11:38:22 Influenz a vaccine needed [id number] 06 Completed 201208/23/2013 RECORDED 04/30/19 13 2:37PM BY TEA HANDY MA, JERELATI ON/ADDEN DUM Michelle Degutis null, [facility] 6 11:38:22 Follow-u p encounte r Completed 201208/23/2013 RECORDED 04/30/19 13 2:37PM BY TEA HANDY MA, NICKY ON/ADDEN DUM Michelle Degutis null, [facility] 6 11:38:22 Adult health examinat ion Completed 201208/23/2013 RECORDED 04/30/19 13 2:37PM BY TEA HANDY MA, NICKY ON/ADDEN DUM Becky Norton MA null, [facility] 7 17:01:05 Renewal of prescrip tion Completed 201208/23/2013 RECORDED 04/30/19 13 2:37PM BY TEA HANDY MA, NICKY ON/ADDEN DUM Michelle Degutis null, [facility] 6 11:38:22 Retentio n of urine 510098975 Completed 201208/23/2013 RECORDED 04/30/19 13 2:37PM BY TEA HANDY MA, NICKY ON/ADDEN DUM Michelle Degutis null, [facility] 6 11:38:22 Screenin g for malignan t neoplasm of colon Completed 201209/15/2013 RECORDED 04/30/19 13 2:37PM BY TEA HANDY MA, ANNOTATI ON/ADDEN DUM [place] Degutis null, [facility] 6 11:38:22 Influenz a vaccine needed [id number] 06 Completed 201209/15/2013 RECORDED 04/30/19 13 2:37PM BY TEA HANDY MA, NICKY ON/ADDEN DUM Michelle Degutis null, [facility] 6 11:38:22 Follow-u p encounte r Completed 201209/15/2013 RECORDED 04/30/19 13 2:37PM BY TEA HANDY MA, NICKY ON/ADDEN DUM Michelle Degutis null, [facility] 6 11:38:22 Renewal of prescrip tion Completed 201209/15/2013 RECORDED 04/30/19 13 2:37PM BY TEA HANDY MA, NICKY ON/ADDEN DUM [place] Degutis null, [facility] 6 11:38:22 Retentio n of urine 751861110 Completed 201209/15/2013 RECORDED 04/30/19 13 2:37PM BY TEA HANDY MA, NICKY ON/[facility] Degutis null, [facility] 6 11:38:22 Screenin g for malignan t neoplasm of colon Completed 201209/16/2013 RECORDED 04/30/19 13 2:37PM BY TEA HANDY MA, NICKY ON/ADDEN DUM Michelle Degutis null, [facility] 6 11:38:22 Influenz a vaccine needed [id number] 06 Completed 201209/16/2013 RECORDED 04/30/19 13 2:37PM BY TEA HANDY MA, NICKY ON/ADDEN DUM Michelle Degutis null, [facility] 6 11:38:22 Follow-u p encounte r Completed 201209/16/2013 RECORDED 04/30/19 13 2:37PM BY TEA HANDY MA, NICKY ON/ADDEN DUM Michelle Degutis null, [facility] 6 11:38:22 Renewal of prescrip tion Completed 201209/16/2013 RECORDED 04/30/19 13 2:37PM BY TEA HANDY MA, ANNOTATI ON/ADDEN DUM Michelle Degutis null, [facility] 6 11:38:22 Retentio n of urine 177696004 Completed 201209/16/2013 RECORDED 04/30/19 13 2:37PM BY TEA HANDY MA, ANNOTATI ON/ADDEN DUM Michelle Degutis null, [facility] 6 11:38:22 Anxiety state 494541824 Active 2012 Becky rosario, [facility] 7 17:00:55 Tobacco user [id number] Completed 201208/23/2013 RECORDED 01/28/20 13 1:17PM BY ALEXANDRE AGUILAR MA, ANNOTADY ON/ADDEN DUM Beckybridger rosario, [facility] 7 17:00:35 History of clinical finding in subject 135958533 Completed 201209/17/2016 RECORDED 01/28/20 13 1:17PM BY ALEXANDRE AGUILAR MA, ANNOTATI ON/ADDEN DUM Becky rosario, [facility] 7 17:01:11 Asthma 483823294 Active 2012 Becky rosario, [facility] 7 17:00:52 Gastroes ophageal reflux disease 509683356 Active 2012 Becky rosario, [facility] 7 17:00:59 [facility] hyperten julisa 49945202 Active 2012 Becky rosario, [facility] 7 17:01:17 External hemorrho ids 22922422 Active 2012 Becky rosario, [facility] 7 17:01:03 Tobacco user 120130810 Active 2012 Becky Norton [place] null, [facility] 7 17:00:35 Adult health examinat ion Completed 201209/17/2016 STORY: COLONOSC OPY DUE SS/TUBUL AR ADENOMA; RECORDED 01/28/20 13 1:58PM BY RICARDO COLE MD, OFFICE VISIT Becky Norton MA null, [facility] 7 17:01:05 Hearing loss 13009765 Active 2012 Becky Norton [place] null, [facility] 7 17:00:40 Impacted cerumen 92763593 Completed 201208/23/2013 RECORDED 01/28/20 13 1:17PM BY ALEXANDRE AGUILAR MA, ANNOTATI ON/ADDEN DUM Becky Norton MA null, [facility] 7 17:00:46 Irritabl e bowel syndrome 57227842 Active 2012 Becky Norton [place] null, [facility] 7 17:00:31 Pre-surg girish junior on Completed 201208/23/2013 IMPRESSI ON: PT IS MEDICALL Y ABLE TO UNDERGO SURGERY, NO ACTIVE ISSUES, IS ABLE TO LAY FLAT AND STILL, EKG NL AND WILL GET LABS; RECORDED 01/28/20 13 1:17PM BY ALEXANDRE AGUILAR MA, ANNOTATI ON/ADDEN DUM Michelle Ervin null, [facility] 6 11:38:22 Tobacco user [id number] Completed 201209/15/2013 RECORDED 01/28/20 13 1:17PM BY ALEXANDRE AGUILAR MA, ANNOTATI ON/ADDEN DUM Becky Norton MA null, [facility] 7 17:00:35 Impacted cerumen 87337492 Completed 201209/15/2013 RECORDED 01/28/20 13 1:17PM BY ALEXANDRE AGUILAR MA, ANNOTATI ON/ADDEN DUM Becky Norton [place] null, [facility] 7 17:00:46 Pre-surg girish evaluati on Completed 201209/15/2013 IMPRESSI ON: PT IS MEDICALL Y ABLE TO UNDERGO SURGERY, NO ACTIVE ISSUES, IS ABLE TO LAY FLAT AND STILL, EKG NL AND WILL GET LABS; RECORDED 01/28/20 13 1:17PM BY ALEXANDRE AGUILAR MA, ANNOTATI ON/[facility] Michelle Aziza rosario [facility] 6 11:38:22 Tobacco user [id number] Completed 201209/16/2013 RECORDED 01/28/20 13 1:17PM BY ALEXANDRE AGUILAR MA, ANNOTATI ON/[facility] Becky rosario, [facility] 7 17:00:35 Impacted cerumen 37969196 Completed 201209/16/2013 RECORDED 01/28/20 13 1:17PM BY ALEXANDRE AGUILAR MA ANNOTATI ON/[facility] Becky rosario [facility] 7 17:00:46 Pre-surg girish evaluati on Completed 201209/16/2013 IMPRESSI ON: PT IS MEDICALL Y ABLE TO UNDERGO SURGERY, NO ACTIVE ISSUES, IS ABLE TO LAY FLAT AND STILL, EKG NL AND WILL GET LABS; RECORDED 01/28/20 13 1:17PM BY ALEXANDRE AGUILAR MA, ANNOTATI ON/[facility] Michelle Antoniousha rosario [facility] 6 11:38:22 History of Malignan t melanoma 479205060 Active 2013 Becky rosario [facility] 7 17:00:45 Malignan t melanoma of skin 62375005 Active 2013 Becky rosario, [facility] 7 17:01:28 Urinary tract infectio us disease 96097211 Active 2013 Becky rosario, [facility] 7 17:01:20 Screenin g for malignan t neoplasm of breast Completed 201410/31/2016 Dr. Susy Ortega, negative [facility] 7 13:35:13 Chronic low back pain 590483443 Active 2018 Rebeca rosario [facility] 9 14:22:51 Problem Notes None recorded. Procedures Surgical History Date Name Laterality Status Provider Name and Address Organization Details Recorded Time 01/21/20 19 Mini-Cog Test completed Leila Julien MA [facility] 01/20/2019 09:52:44 12/30/19 18 Most Recent Mammogram completed Leila Julien MA [facility] 01/20/2019 09:47:42 12/19/19 18 Mini-Cog Test completed Naheed Veliz [facility] 12/18/2017 13:13:25 12/02/19 17 Fall Risk Assessment completed Becky Norton ELLIOTT [facility] 12/01/2016 13:22:35 12/02/19 17 Mini-Cog Test completed Becky Norton ELLIOTT [facility] 12/01/2016 13:23:31 11/29/19 17 Mammogram both breasts completed Kimmy Yañez [facility] 12/09/2016 14:44:18 10/17/19 17 Date of Last Colonoscopy completed Paola Kendall [facility] 12/09/2016 16:54:35 10/17/19 17 Colonoscopy completed Becky Norton ELLIOTT [facility] 10/24/2016 11:43:36 03/23/19 16 Fall Risk Assessment completed Becky Norton MA [facility] 03/23/2015 13:55:01 03/23/19 16 Mini-Cog Test completed Becky Norton ELLIOTT [facility] 03/23/2015 14:02:26 03/23/19 16 Advanced Care Planning completed Becky Norton MA [facility] 03/23/2015 13:41:44 08/19/19 15 Date of Last Pap Smear completed Michelle Ervin [facility] 03/28/2015 11:40:33 02/23/19 11 Most Recent [facility] 14:07:39 02/09/19 08 Appendectomy completed Tea Handy [facility] 03/02/2014 10:46:37 Imaging Results None recorded. Procedure Notes None recorded. Medical Equipment None Reported. Allergies Allergen ID Allergen Name Allergen Category Reaction Reaction Severity Criticality Documentation Date Start Date Code Code System Note Provider Name and Address Organization Details Recorded Time 2935 latex environme nt,medica tion rash Not available Not available 08/23/20132012 58415 91 RxNorm Becky Norton [place] [facility] 7 17:00:18 Medications Name Sig Start [...] 10 2:51PM BY RICARDO COLE MD, ANNOTATI ON/; Not Available Not Available Not Available diltiazem [...] Updated DateTime 8 154.94 cm 31.4 kg/m2 69076.4 3 g 98.7 [degF] 96 % 96 % 89 /min 118/76 mm[Hg] Becky Norton MA [facility] 8 11:28:28 Date Recorded Body height Body mass index (BMI) Body weight Heart rate Oxygen saturation Oxygen saturation in Arterial blood by Pulse oximetry Body temperature Systolic And Diastolic Provider Name and Address Organization Details Last Updated DateTime 9 154.94 cm 30.2 kg/m2 04223.7 8 g 92 /min 96 % 96 % 98.4 [degF] 124/78 mm[Hg] Ruby Mackey [facility] [place] 9 12:59:19 Date Recorded Body height Body mass index (BMI) Body weight Heart rate Oxygen saturation Oxygen saturation in Arterial blood by Pulse oximetry Body temperature Systolic And Diastolic Provider Name and Address Organization Details Last Updated DateTime 8 154.94 cm 30.8 kg/m2 36959.5 6 g 94 /min 97 % 97 % 97.5 [degF] 136/74 mm[Hg] Jovan Medina [facility] 8 10:41:30 Date Recorded Body height Body mass index (BMI) Body weight Body temperature Heart rate Oxygen saturation Oxygen saturation in Arterial blood by Pulse oximetry Systolic And Diastolic Provider Name and Address Organization Details Last Updated DateTime 8 154.94 cm 30.5 kg/m2 02036.4 7 g 97.2 [degF] 86 /min 96 % 96 % 123/72 mm[Hg] Naheed Winnignacia [facility] [place] 8 12:57:56 Date Recorded Body height Body mass index (BMI) Body weight Oxygen saturation Oxygen saturation in Arterial blood by Pulse oximetry Heart rate Body temperature Systolic And Diastolic Provider Name and Address Organization Details Last Updated DateTime 9 154.94 cm 30.7 kg/m2 50058.0 6 g 96 % 96 % 81 /min 98.1 [degF] 119/67 mm[Hg] Leila Julien MA [facility] 9 09:56:35 Social History Question Answer Notes LastModified by Organizat ion Details LastModified Time Tobacco Smoking Status Former Smoker ELLIOTT Plascencia [facility] [place] 09/08/2013 11:26:06 Do You Have An [...] Much Tobacco Do You Smoke? 1 PPW [email or web address] Information not available 01/20/2019 General Stress Level [...] used smokeless tobacco? Never used smokeless tobacco [email or web address] Information not available 01/20/2019 Are you currently employed? Yes Information not available 03/02/2014 Are you able to care for yourself independently ? 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 Never used electronic cigarettes [email or web address] Information not available 01/20/2019 What is your [...] virus, quadrivalent, PF 5 completed Becky rosario [facility] 03/23/2015 14:06:48 Influenza, high-dose, trivalent, PF 7 completed Not Available [facility] 02/26/2019 02:22:21 Novel [id number]-[id number], all formulations 0 completed Not Available [facility] 08/23/2013 13:38:52 pneumococcal polysaccharide PPV23 0 completed Not Available [facility] 08/23/2013 13:38:52 Influenza, split virus, trivalent, preservative 0 completed Not Available [facility] 08/23/2013 13:38:52 Influenza, split virus, trivalent, preservative 1 completed Not Available [facility] 08/23/2013 13:38:52 Influenza, split virus, trivalent, preservative 2 completed Not Available [facility] 08/23/2013 13:38:52 Influenza, split virus, trivalent, preservative 3 completed Not Available [facility] 08/23/2013 13:38:52 Influenza, high-dose, trivalent, PF 8 completed Not Available [facility] 02/26/2019 02:22:14 Influenza, high-dose, trivalent, PF 9 completed Not Available [facility] 02/26/2019 02:22:09 Past Encounters Encounter ID Performer Location Encounter Start Date Encounter Closed Date Diagnosis/Indication Diagnosis SNOMED-CT Code Diagnosis ICD10 Code Diagnosis IMO Codes Diagnosis Note [id number] NICOLÁS Cheung Main Office [address] [place] [address] 09/08/2013 11:14:56 09/08/2013 11:58:13 Essential hypertension 57129065 well controlled Asthma 619865264 followed by pulethan, well controlled on symbicort Anxiety state 264665065 Impacted cerumen 03090833 successful ly removed with ear lavage [id number] auto[employer]Comm erce [address] [facility] [place] [address] 03/01/2009 00:00:00 [id number] [place] [address] 03/29/2009 00:00:00 [id number] [address] [place] [address] 09/10/2009 00:00:00 [id number] [address] [address] [place] [address] 11/13/2009 00:00:00 [id number] autoEComm erce [address] [facility],[address] [place] [address] 11/30/2009 00:00:00 [id number] autoEComm erce [address] [facility] [address] [place] [address] 12/21/2009 00:00:00 [id number] autoEComm erce [address] [facility],[address] [place] [address] 02/11/2010 00:00:00 [id number] autoEComm erce [address] [facility],[address] [place] [address] 05/17/2010 00:00:00 [id number] autoEComm erce [address] [facility] [address] [place] [address] 08/23/2010 00:00:00 [id number] autoEComm erce [address] [facility],[address] [place] [address] 09/04/2010 00:00:00 [id number] autoEComm erce [address] [facility],[address] [place] [address] 11/29/2010 00:00:00 [id number] autoEComm erce [address] [facility] [address] [place] [address] 01/10/2011 00:00:00 [id number] autoEComm erce [address] [facility] [address] [place] [address] 05/02/2011 00:00:00 [id number] autoEComm erce [address] [facility],[address] [place] [address] 10/31/2011 00:00:00 [id number] autoEComm erce [address] [facility],[address] [place], [place] [address] 04/29/2012 00:00:00 [id number] autoEComm erce [address] [facility],[address] [place], [place] [address] 07/15/2012 00:00:00 [id number] autoEComm erce [address] [facility],[address] [place], [place] [address] 01/27/2013 00:00:00 [id number] Ramon Calalhan MD Main Office [address] [address] [place] [address] 09/26/2013 13:41:44 09/26/2013 14:55:33 Dermatitis 404268419 candidal dermatitis [id number] Ricardo medellin MD Main Office [address] [address] [place] [address] 03/02/2014 12:39:53 03/02/2014 13:42:38 Essential hypertension 37364508 Hyponatremia 20575867 pt t o see Dr Pride regularly/ pt aware that she needs to stop using clorazepat e / see psych referral Anxiety state 041823867 Dysuria 38009707 [id number] Ricardo medellin MD Main Office [address] [address] [place] [address] 04/21/2014 14:46:19 04/21/2014 15:48:33 Essential hypertension 01170397 both meds helpful/ Diltiazem and lisinopril Gastroesop hageal reflux disease 640199364 pt on PPI Anxiety state 952668749 Asthma 089256265 [id number] Ricardo medellin MD Main Office [address] [address] [place] [address] 03/23/2015 13:27:48 03/23/2015 14:47:01 Adult health examination 930076285 Z00.00 At [facility] ed risk for falls 559287350 Z91.81 Advance di rective discussed with patient 831886842 Z71.89 pt will have her brother as health care proxy Essential hypertension 88919152 I10 both meds helpful/ Diltiazem and lisinopril Polyp of colon 85548300 K63.5 pt due for colonoscop y 2016 /tubular adenoma/We iss Asthma 174612377 J45.90 9 Anxiety state 443935659 F41.1 [id number] Ricardo medellin MD Main Office [address] [address] [place] [address] 10/05/2015 12:46:12 10/05/2015 13:40:50 Essential hypertension 05045702 I10 both meds helpful/ Diltiazem and lisinopril Asthma 647468631 J45.90 9 urged pt to get flu shot soon. Anxiety state 282697499 F41.1 [id number] Ricardo medellin MD Main Office [address] [address] [place] [address] 06/19/2016 12:55:50 06/19/2016 14:13:50 Fatigue 50242986 R53.83 Abnormal weight loss 267 152431 R63.4 Diarrhea 43786789 R19.7 Nausea 434178939 R11.0 d/w pt to elevate HOB/ cont PPI Impaired f asting glycemia 056800596 R73.01 [id number] Ricardo medellin MD Main Office [address] [address] [place] [address] 10/23/2016 14:30:06 10/23/2016 15:27:24 [id number] Ricardo medellin MD Main Office [address] [address] [place] [address] 10/31/2016 13:21:48 10/31/2016 14:41:18 Lumbosacral radiculitis 60443537 M54.17 Influenza vaccine needed 1829726196 106 Z23 [id number] Ricardo medellin MD Main Office [address] [address] [place] [address] 12/01/2016 13:04:53 12/01/2016 14:09:38 Adult health examination 527851228 Z00.00 Essential hypertension 48332985 I10 both meds helpful/ Diltiazem and lisinopril Anxiety state 794690639 F41.1 [id number] Ricardo medellin MD Main Office [address] [place] [address] 05/15/2017 11:16:16 05/15/2017 12:12:51 Anxiety state 196274024 F41.1 Essential hypertension 54799602 I10 both meds helpful/ Diltiazem and lisinopril Incomplete emptying of urinary bladder 657236222 R39.14 [id number] Denis Marcos [facility] Main Office [address] [place] [address] 11/13/2017 10:36:20 11/13/2017 11:18:17 Anxiety state 592714226 F41.1 has been on med for 20+ years, she is taking 3.75mg daily, will try to cut the dose in half if possible. f/u in 1 month for wellness visit. Influenza vaccine needed 0133890352 106 Z23 Gastroesop hageal reflux disease 488421370 K21.9 Essential hypertension 41765324 I10 well controlled , continue meds as directed. [id number] Denis [facility] Main Office [address] [place] [address] 12/18/2017 12:40:39 12/18/2017 13:46:58 Adult health examination 416308927 Z00.00 UTD, she will call [facility] for appt Varicella vaccination 68 813106 Z23 Asthma 884632843 J45.90 9 Essential hypertension 20130808 I10 well controlled , continue meds as directed. Family his tory of Hypercholesterolemia 520127689 Z83.49 Anxiety state 734836580 Edi.1 has been on med for 20+ years, she is taking 3.75mg daily, will try to cut the dose in half if possible. f/u in 1 month for wellness visit. [id number] Solomon Hemphill MD Main Office [address] [place] [address] 06/11/2018 12:42:51 06/11/2018 13:40:40 Low back pain 039965911 M54.5 Patient with chronic low back pain, in PT, seeing chiropract or, but wondering if she should be seeing someone else. Will check XR and refer back to [facility], she has seen them for this in the past. continue sx treatment, ibuprofen as needed. Cramp in lower limb 4499 21920 R25.2 Essential hypertension 27388174 I10 well controlled , continue meds as directed. Fatigue 11375127 R53.83 [id number] Solomon Hemphill MD Main Office [address] [facility] [place] [address] 01/20/2019 09:41:15 01/20/2019 10:33:29 Adult health examination 112535467 Z00.00 UTD, she has mammo scheduled, needs to call [facility]. Influenza vaccine needed 8511382665 106 Z23 Impaired f asting glycemia 172629801 R73.01 in June, sugar 125 and she believes she was fasting Hyperlipidemia 42892178 E78.5 Health Concerns Section Related Observation LastModified by Organization Detai ls LastModified Time None Recorded Concern Status LastModified by Organization Details LastModified Time None Recorded Advance Directives Directive Y: Payers Insurance Date Sequence Insurance Name Policy Number Policy Menendez Covered Member ID Menendez Member ID Guarantor Name 09/10/2016 1 [employer] [place] - MEDICARE ADVANTAGE PLAN (MEDICARE REPLACEMENT HMO) [id number] Noris Hou [id number] Noris Hou 07/19/2019 2 [place] [id number] Noris Hou [id number] Noris Hou 07/19/2019 1 [place] [employer] Noris Hou [id number] Noris Hou Notes Date Note Type Note [...] patient reportsno significant weight gainandmood good(pt has care home hx of benzo use , > [...] as noted in the HPI Ricardo rosario [facility] 05/15/2017 12:16:47 11/13/2017 text/html Anxiety/Depressi onRepor gifty by PatientHPIFor quality, patient reportsincreased anxiety(stress, car trouble). For context, patient reportsmajor life stressorsandfamily problems. For associated symptoms, patient reportshigh irritability,hostility, anxiety,hypersensitivit y, andanxiety with muscle tensionbut reportsno significant weight gain(pt has care home hx of benzo use , > 20 years). For severity, patient reportsable to maintain relationships.+ hx nausea and diarrhea, panic attacks etcROS as noted in the HPI Maryanne rosario [facility] [place] 11/13/2017 12:41:13 12/18/2017 text/html Medicare Annual [...] last visit, andno dizziness/vertigo. Ramon Callahan MD [address], [address], [facility] 12/19/2017 16:52:49 06/11/2018 text/html Generic HPI TemplateReported [...] legs. trying to strengthen legs. DR shivam Milelr at [facility]. Was discharged in 2017 due to improvement with PT. 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 Since the fall her back pain is worse. Denis Marcos, [facility] [address] [address], [place], [address], [facility] 06/11/2018 13:40:34 01/20/2019 text/html Medicare Annual Wellness [...] states she found [place] new [place] in [place] but cannot be seen until May. NICOLÁS Fay [address] [address], [place], [address], [facility] 01/20/2019 10:57:40 OBGyn Episode No OBEpisode recorded.
== END 2024-12-22 12:07 | disposition home or self-care (01) ==
LOC: HO.HMCFM 10:58
PROVIDERS: PCP Family Medicine; Visit Provider Family Medicine
DX: I10 Essential (primary) hypertension (principal); R00.0 Tachycardia, unspecified; Z86.718 Personal history of other venous thrombosis and embolism; Z79.01 Long term (current) use of anticoagulants; I95.9 Hypotension, unspecified; C30.0 Malignant neoplasm of nasal cavity

== ENCOUNTER 2024-12-22 10:57 | Outpatient (REF) | payer MEDICARE, OTHER, SELFPAY ==
--- OUTSIDE RECORDS SUMMARY | 2024-12-22 14:07 | XMS_ITS | Encounter Summary ---
Author Organization [facility] Address [facility] [place] [address] Care Team Providers Care Fence Setter Name Role Phone Syd Dhillon Primary Care Provider Un available Gennaro Guillaume MD Primary Care Provider Unava sean [facility], Pcp Primary Care Provider Adriana petersen Encounter Details Date Type Department Care Team Description 02/26/2017 Transfer Records Medical Records [address] [place] [address] Abstract, Provider Social History Tobacco Use Types Packs/Day Years Used Date Smoking Tobacco: Former Cigarettes 1 15 Smokeless Tobacco: Never Sex Assigned at Date Recorded Not on file documented as of this encounter Plan of Treatment Not on file documented as of this encounter Visit Diagnoses Not on filedocumented in this encounter Care Teams Fence Setter Relationship Specialty Start Date End Date Syd Dhillon PCP - General Internal Medicine 02/20/17 9 Gennaro Guillaume MD PCP - General Internal Medicine 12/16/18 09/22/19 [facility], Pcp PCP - General Internal Medicine 09/23/19 documented as of this encounter
--- OUTSIDE RECORDS SUMMARY | 2024-12-22 14:07 | XMS_ITS | Encounter Summary ---
Author Organization [facility] Address [address] [place] [address] Care Team Providers Care Engineering Mechanic Name Role Phone Syd Dhillon Primary Care Provider Un available Gennaro Guillaume MD Primary Care Provider Yadira Jordan, Pcp Primary Care Provider Unavailabl e Reason for Visit * Reason Comments E-prescribe Rx Request Encounter Details Date Type Department Care Team Description 05/05/2017 Refill Pulmonology [address] [place] [phone] Aquiles Weems MD E-prescribe Rx Request Social History Tobacco Use Types Packs/Day Years Used Date Smoking Tobacco: Former Cigarettes 1 15 Smokeless Tobacco: Never Sex Assigned at Date Recorded Not on file documented as of this encounter Plan of Treatment Not on file documented as of this encounter Visit Diagnoses Not on filedocumented in this encounter Care Teams Engineering Mechanic Relationship Specialty Start Date End Date Syd Dhillon PCP - General Internal Medicine 02/20/17 9 Gennaro Guillaume MD PCP - General Internal Medicine 12/16/18 09/22/19 Nikki, Pcp PCP - General Internal Medicine 09/23/19 documented as of this encounter
--- OUTSIDE RECORDS SUMMARY | 2024-12-22 14:07 | XMS_ITS | Encounter Summary ---
Author Organization [facility] Address [facility] [place] [address] Care Team Providers Care Logistical Engineer Name Role Phone Gennaro Guillaume MD Primary Care Provider Yadira Jordan, Pcp Primary Care Provider Adriana petersen Encounter Details Date Type Department Care Team Description 07/11/2019 Telephone Medicine/Pediatrics - [address] [address] Gennaro Guillaume MD Social History Tobacco Use [...] on filedocumented in this encounter Care Teams Logistical Engineer Relationship Specialty Start Date End Date Gennaro Guillaume MD PCP - General Internal Medicine 12/16/18 09/22/19 Nikki, Pcp PCP - General Internal Medicine 09/23/19 documented as of this encounter
--- OUTSIDE RECORDS SUMMARY | 2024-12-22 14:07 | XMS_ITS | Encounter Summary ---
Author Organization [facility] Address [facility] [place] [address] Care Team Providers Care Nozzle Worker Name Role Phone Gennaro Guillaume MD Primary Care Provider Yadira estrada [facility], Pcp Primary Care Provider Adriana e Reason for Visit * Reason Onset Date Comments Orders Call 07/21/2019 Encounter Details Date Type Department Care Team Description 07/21/2019 Telephone Medicine/Pediatrics - [address] [phone] Gennaro Guillaume MD Orders Call Social History [...] listed in the contacts info Tel # [phone] * Telephone Encounter - Melanie Horowitz - 07/21/2019 11:30 AM EDT Patient needs order faxed to who. Please provide phone number and fax * Telephone Encounter - Jackie Chan - 07/21/2019 11:01 AM EDT Pt needs the order faxed over to them from 07/18 referral - pt has appt on 07/24 - fax [phone] documented in this encounter Plan of Treatment Not on file documented as of this encounter Visit Diagnoses Not on filedocumented in this encounter Care Teams Nozzle Worker Relationship Specialty Start Date End Date Gennaro Guillaume MD PCP - General Internal Medicine 12/16/18 09/22/19 [facility], Pcp PCP - General Internal Medicine 09/23/19 documented as of this encounter
[2024-12-22 14:23] LABS: INTERNATIONAL NORM RATIO 3.9 (0.9-1.1); Prothrombin Time 46.0 SEC (11.2-13.5)
== END 2024-12-22 10:58 | disposition home or self-care (01) ==
LOC: HO.WFDLDS 10:57
PROVIDERS: Internal Medicine Medical Oncology; PCP Family Medicine; Visit Provider Family Medicine
DX: I10 Essential (primary) hypertension (principal); I95.9 Hypotension, unspecified; R00.0 Tachycardia, unspecified; R63.4 Abnormal weight loss; C30.0 Malignant neoplasm of nasal cavity; I26.94 Multiple subsegmental thrombotic pulmonary emboli without acute cor pulmonale; I82.409 Acute embolism and thrombosis of unspecified deep veins of unspecified lower extremity; R53.81 Other malaise; Z86.718 Personal history of other venous thrombosis and embolism; Z79.01 Long term (current) use of anticoagulants
CPT/HCPCS: 36415; 85610; 99212

== ENCOUNTER 2025-01-16 15:16 | Outpatient (AMB) | payer MEDICARE, SELFPAY ==
--- NOTE | 2025-01-16 15:22 | MHC.PC.OV ---
Vital Signs 01/16/25 15:30 Height 5 ft 1 in Weight 117 lb BMI 22.1 BP 92/52 L Blood Pressure Location Rt brachial Position Sitting Respiration 14 Pulse 92 Pulse Source Pulse Oximeter Pulse Oximetry (%) 97 Oxygen Delivery Method Room Air Intake Visit Reasons: [facility] / Basia f/u chronic conditions Intake Note: New patient visit. Requesting medication for low bp if recommended Communication Signals Intelligence Required: No Accompanied by: neice Allergies Seasonal Allergies Allergy (Mild, Verified 01/16/25 15:26) runny nose latex Allergy (Verified 01/16/25 15:26) rash Tobacco use date assessed: 08/29/24 Fall risk assessment: 2 + Falls in past year Last assessed Fall Risk: 01/16/25 Dental Screening Dental Screen Date: 08/29/24 HPI HPI Comments History of Present Illness Details The patient is a 84 year old female with a past medical history of squamous cell cancer nose s/o rhinectomy, partial maxillectomy, anxiety, arthritis, copd, GERD, PE on eliquis Hospitalized 12/23/2024 to 01/03/2025 for GIB -supratherapeutic INR. She was transitioned to eliquis at 2.5mg twice daily. Admitted to [facility] from 01/03/2025, she is still there. Getting PT, OT. History of PE on coumadin since 2020. Anxiety-On celexa, clonzepam Asthma/COPD-Follows with [facility]/Oc-seen Dec 20. Had surgery, and radiation-finished nov 23 ROS CONSTITUTIONAL: Denies weight loss, fever and chills. HEENT: Denies changes in vision and hearing. RESPIRATORY: Denies SOB and cough. CV: Denies palpitations and CP GI: Denies abdominal pain, nausea, vomiting and diarrhea. : Denies dysuria and urinary frequency. MSK: Denies new myalgia and joint pain. SKIN: Denies rash and pruritus. NEUROLOGICAL: Denies headache PSYCHIATRIC: Denies recent changes in mood. PHYSICAL EXAM: GENERAL: Alert and oriented x 3. NAD EYES: EOMI. Anicteric. HENT: Moist mucous membranes. No scleral icterus. No cervical lymphadenopathy. LUNGS: Clear to auscultation bilaterally. CARDIOVASCULAR: Regular rate and rhythm. No murmur. No JVD. ABDOMEN: Soft, non-tender +bs EXTREMITIES: No edema. Non-tender. SKIN: No rashes or lesions. Warm. NEUROLOGIC: No focal neurological deficits. CN II-XII grossly intact PSYCHIATRIC: Cooperative. Appropriate mood and affect [facility] Medical History LFT elevation Swelling of both lower extremities Pulmonary emboli (~01/2022) Skin cancer History of COVID-19 Essential hypertension Chronic allergic rhinitis Hyponatremia Asthma-COPD overlap syndrome Surgical History History of nasal surgery (~05/2024) History of esophagogastroduodenoscopy (EGD) History of colonoscopy Family History Mother Breast cancer Father Prostate CA Stroke Social History Household Members: None Housing: House Housing Other:: mobile home- friend to be moving in Alcohol intake: current Alcohol intake frequency: 0-2 drinks per day Patient Tobacco Use Status: Former Tobacco user Tobacco use type: Cigarette Cigarette Packs Per Day: 1.0 Years Smoked: 10 years e-Cigarette/Vaping Use: Never Used Second Hand Smoke Exposure: No service: No Current occupational status: retired 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 14332 - PHQ-9 Billing: Patient declined-do not bill Source: Developed by Drs. Harsha Hood, Diana Mendoza, Kristopher Villa and colleagues, with an educational johnie from [employer]. Thrive Questionnaire Date Thrive assessed: 05/11/24 I am a: Patient What is your living situation today?: I have a steady place to live Within the past 12 months, did the food you bought not last and you didn't have the money to get more?: Sometimes True Within the past 12 months, did you worry whether your food would run out before you got money to buy more?: Sometimes True Do you have trouble paying for medicines?: No Do you have trouble getting transportation to medical appointments?: No Do you have trouble paying your heating and electricity bill?: No Do you have trouble taking care of your child, family member or friend?: No Do you have trouble with day-to-day activities such as bathing, preparing meals, shopping, managing finances, etc.?: No Are you currently unemployed and looking for a job?: No Are you interested in more education?: No Please select the resources that you would like help with: None Currently or been in a relationship where the following occur: No concerns reported THRIVE Score: 2 AUDIT C Alcohol Use Questionnaire (AUDIT-C) 1. How often do you have a drink containing alcohol?: Monthly or less 2. How many drinks containing alcohol do you have on a typical day when you are drinking?: 1 or 2 3. How often do you have six or more drinks on one occasion?: Never Total Score: 1 ROEL-7 AMB Questionnaire ROEL-7 Date ROEL - 7 assessed: 05/17/24 Source: Developed by Drs. Harsha Hood, Diana Mendoza, Kristopher Villa and colleagues, with an educational johnie from [employer]. Physical exam (Primary Care) Vital Signs: Last Vital Signs Pulse 92 01/16/25 15:30 Resp 14 01/16/25 15:30 BP 92/52 L 01/16/25 15:30 Pulse Ox 97 01/16/25 15:30 Oxygen Delivery Method Room Air 01/16/25 15:30 BMI result Body Mass Index 22.1 Tobacco/Smoking Status: Tobacco use Status Tobacco use date assessed 08/29/24 01/16/25 15:23 Patient Tobacco Use Status Former Tobacco user 01/16/25 15:23 Tobacco use type Cigarette 01/16/25 15:23 e-Cigarette/Vaping Use Never Used 01/16/25 15:23 Thrive Assessment: Date of Thrive Assessment Date Thrive assessed 05/11/24 01/16/25 15:23 Currently or been in a relationship where the following occur: No concerns reported Coding Level of Care Code Add On Preventative Visit Only Diagnoses Encounter to establish care Z76.89 Essential hypertension I10 MCC current use of anticoagulant Z79.01 Pre-diabetes R73.03 Gastrointestinal hemorrhage, unspecified gastrointestinal hemorrhage type K92.2 GI bleed type/associated pathology: unspecified gastrointestinal hemorrhage type 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 Assessment & Plan Assessment & Plan (1) Encounter to establish care: Code(s): Z76.89 - Persons encountering health services in other specified circumstances (2) Essential hypertension: Code(s): I10 - Essential (primary) hypertension Category: Medical (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: Code(s): Z79.01 - intermediate school teacher (current) use of anticoagulants Category: Medical (4) Pre-diabetes: Code(s): R73.03 - Prediabetes Category: Medical (5) GIB (gastrointestinal bleeding): Code(s): K92.2 - Gastrointestinal hemorrhage, unspecified Category: Medical Qualifiers: GI bleed type/associated pathology: unspecified gastrointestinal hemorrhage type Qualified Code(s): K92.2 - Gastrointestinal hemorrhage, unspecified (6) Squamous cell carcinoma of nasal cavity: Code(s): C30.0 - Malignant neoplasm of nasal cavity Category: Medical Plan 84 year old female to establish care Past medical, surgical, social reviewed [facility]-continue follow up heme/onc History of PE/DVT doing better on eliquis Recent GIB, still in [facility] Labs ordered Orders: Orders Complete Blood Count Auto Diff 01/16/25 I10 - Essential (primary) hypertension, I95.9 - Hypotension, unspecified, K92.2 - Gastrointestinal hemorrhage, unspecified, R73.03 - Prediabetes, Z86.718 - Personal history of other venous thrombosis and embolism TSH reflex Free T4 01/16/25 I10 - Essential (primary) hypertension, I95.9 - Hypotension, unspecified, K92.2 - Gastrointestinal hemorrhage, unspecified, R73.03 - Prediabetes, Z86.718 - Personal history of other venous thrombosis and embolism IRON PROFILE 01/16/25 I10 - Essential (primary) hypertension, I95.9 - Hypotension, unspecified, K92.2 - Gastrointestinal hemorrhage, unspecified, R73.03 - Prediabetes, Z86.718 - Personal history of other venous thrombosis and embolism Comprehensive Met. Panel 01/16/25 I10 - Essential (primary) hypertension, I95.9 - Hypotension, unspecified, K92.2 - Gastrointestinal hemorrhage, unspecified, R73.03 - Prediabetes, Z86.718 - Personal history of other venous thrombosis and embolism Magnesium 01/16/25 I10 - Essential (primary) hypertension, I95.9 - Hypotension, unspecified, K92.2 - Gastrointestinal hemorrhage, unspecified, R73.03 - Prediabetes, Z86.718 - Personal history of other venous thrombosis and embolism
[2025-01-16 15:30] VITALS: BP 92/52; PULSE 92; RESP 14; O2SAT 97; BMI 22.1
== END 2025-01-16 16:06 | disposition home or self-care (01) ==
LOC: HO.HMCFM 15:17
PROVIDERS: PCP Internal Medicine; Visit Provider Internal Medicine
DX: Z76.89 Persons encountering health services in other specified circumstances (principal); I10 Essential (primary) hypertension; Z79.01 Long term (current) use of anticoagulants; R73.03 Prediabetes; K92.2 Gastrointestinal hemorrhage, unspecified; C30.0 Malignant neoplasm of nasal cavity

== ENCOUNTER → 2025-01-16 15:16 | Outpatient (BNVA) | payer MEDICARE, OTHER, SELFPAY | PROVIDERS: PCP Family Medicine; Visit Provider Internal Medicine | DX: Z76.89 Persons encountering health services in other specified circumstances (principal); I10 Essential (primary) hypertension; R73.03 Prediabetes; K92.2 Gastrointestinal hemorrhage, unspecified; I95.9 Hypotension, unspecified; C30.0 Malignant neoplasm of nasal cavity; F41.9 Anxiety disorder, unspecified; J44.9 Chronic obstructive pulmonary disease, unspecified; Z86.711 Personal history of pulmonary embolism; Z86.718 Personal history of other venous thrombosis and embolism; Z79.01 Long term (current) use of anticoagulants; Z79.899 Other long term (current) drug therapy; Z13.30 Encounter for screening examination for mental health and behavioral disorders, unspecified | CPT/HCPCS: 99212 ==